=== PATIENT | female | born 1980 | race Caucasian/White ===

== ENCOUNTER 2021-11-19 11:04 | Outpatient (CLI) | payer OTHER, SELFPAY ==
[2021-11-19 15:23] LABS: Basophils Absolute Auto 0.07 K/uL (0.00-0.30); Basophils Percent Auto 0.8 % (0.0-3.0); Eosinophils Absolute Auto 0.31 K/uL (0.00-0.50); Eosinophils Percent Auto 3.4 % (0.0-7.0); Hematocrit 39.8 % (33.0-51.0); Hemoglobin* 12.9 gm/dL (12.0-16.0); Immature Granulocytes Abs Auto 0.02 K/uL (0.00-0.30); Mean Corpuscular HGB Conc 32 gm/dL (32-36); Mean Corpuscular Hemoglobin 29 pg (26-34); Mean Corpuscular Volume 90 fL (80-100); Monocytes Percent Auto 7.9 % (0.0-11.0); Neutrophils Absolute Auto 4.49 K/uL (1.7-7.0); Neutrophils Percent Auto 48.7 % (42.0-72.0); Platelet Count* 415 K/uL (140-440); RDW Coefficient of Variation % 13.8 % (11.5-15.5); Red Blood Count 4.44 m/uL (4.00-5.20); White Blood Count* 9.22 K/uL (4.50-11.00)
[2021-11-19 15:33] LABS: Slide Review Reflex No
[2021-11-19 15:58] LABS: Iron* 60 ug/dL (37-170)
[2021-11-19 16:08] LABS: Percent Iron Saturation 16 % (20-50); Total Iron Binding Capacity 379 ug/dL (265-497)
== END 2021-11-19 11:05 | disposition home or self-care (01) ==
PROVIDERS: PCP Nurse Practitioner Family; Visit Provider Nurse Practitioner Family
DX: N92.1 Excessive and frequent menstruation with irregular cycle (principal)
CPT/HCPCS: 36415; 83540; 83550; 84443; 85025

== ENCOUNTER 2022-03-16 14:49 | Outpatient (CLI) | payer OTHER, SELFPAY ==
--- OUTSIDE RECORDS SUMMARY | 2022-03-16 14:56 | XMS_ITS | Clinical Summary ---
:1980 Author Organization [facility] [place] [address] Care Team Providers Name Role Phone Unknown, Doctor Primary Care Provider Unavailable Allergies Active Allergy Reactions Severity Noted Date Comments Amoxicillin-Pot Clavulanate GI Upset 01/04/2012 Ciprofloxacin *Unknown 01/04/2012 Medications Medication Sig Dispensed Refills Start Date End Date Status fexofenadine (KAILYN) One tab PO Q HS X 60 tablet 3 2 Active 180 mg tablet 2 month supply azelastine 137 2 puffs each 1 Bottle 3 01/04/2012 A ctive mcg/actuation nasal nostril BID X 2 (ASTELIN) 137 mcg nasal month supply spray Active Problems Not on file Social History Tobacco Use Types Packs/Day Years Used Date Current Every Day Smoker Smokeless Tobacco: Never Used Tobacco Cessation: Ready to Quit: No; Co unseling Given: Yes Alcohol Use Standard Drinks/Week Comments No 0 (1 standard drink = 0.6 oz pure alcoho l) Sex Assigned at Date Recorded Not on file Obstetrics History Last Filed Vital Signs Vital Sign Reading Time Taken Comments Blood Pressure 106/58 01/18/2012 2:21 PM CDT Pulse 68 01/18/2012 2:21 PM CDT Temperature - - Respiratory Rate 12 01/18/2012 2:21 PM CDT Oxygen Saturation - - Inhaled Oxygen Concentration - - Weight - - Height - - Body Mass Index - - Plan of Treatment Health Maintenance Due Date Last Done Comments Tdap 1993 Depression screening for age 12+ 1994 HIV for age 15-65 1997 BMI (ht and wt on same day) for age 18+ 2000 Hepatitis C screening for age 18-79 2000 Tetanus booster 2002 COVID-19 vaccine series (2 - Pfizer 05/24/2021 05/03/2021 series) Influenza for age 9-49 12/16/2021 Pap test for age 21-65 11/19/2024 11/19/2021, 04/29/2013 Results Not on filefrom Last 3 Months Care Teams Educational Interpreter Relationship Specialty Start Date End Date Unknown, Doctor PCP - General Emergency Medicine 04/08/11 .
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
--- OUTSIDE RECORDS SUMMARY | 2022-03-16 14:56 | XMS_ITS | Encounter Summary ---
:1980 Author Organization [facility] Address [address] [place] [address] Care Team Providers Name Role Phone Alia Roberts APRN, BALL MILL MIXER Primary Care Provider [phone] Reason for Visit Reason Comments URI Sinus Problem Encounter Details Date Type Department Care Team Description 01/29/2019 Office Visit [place] Vaughn Méndez, Chronic rhinitis (Primary Dx ); [address] Chronic maxillary sinusitis [place], [place] [address] Social History Tobacco Use Types Packs/Day Years [...] or relatives? How often do you attend congregation or Not asked evangelical services? Do you belong to any clubs or Not asked organizations such as congregation groups, unions, fraternal or athletic groups, or [...] on file documented as of this encounter Last Filed Vital Signs Vital Sign Reading Time Taken Comments Blood Pressure 102/80 01/29/2019 2:01 PM CDT Pulse 106 01/29/2019 2:01 PM CDT Temperature 35.7 ??C (96.2 ??F) 01/29/2019 2:01 PM CDT Respiratory Rate 20 01/29/2019 2:01 PM CDT Oxygen Saturation 97% 01/29/2019 2:01 PM CDT Inhaled Oxygen Concentration - - Weight 89.1 kg (196 lb 6.9 oz) 01/29/2019 2:01 PM CDT Height 160 cm (5' 2.99) 01/29/2019 2:01 PM CDT Body Mass Index 34.8 01/29/2019 2:01 PM CDT documented in this encounter Patient Instructions Patient InstructionsDavisunshine Méndez MD - 01/29/2019 2:00 PM CDT Afrin Nasal spray 1 puff in each Nostril at bedtime for one week documented in this encounter Progress Notes Vaughn Méndez MD - 01/29/2019 2:00 PM CDT Estab Patient Visit Subjective This 38-year-old woman presents stating that she feels that she has a sinus infection. She has a history of recurrent sinus infections and states that she has had surgery on her sinuses twice last being in 2000. For the last week she has had this watery rhinitis with facial congestion and discomfort in her face both the maxillary and frontal area. He does complain of some fullness in the left ear also. She has not recorded fever. She has a cough when she is laying down. She has somewhat of a sore throat in the morning. She does continue to smoke 1/2 pack of cigarettes per day but is on Chantix and trying to quit. She asked about a refill of her Flonase nasal spray. She is actually been on 3 different nasal sprays in the past. She felt the one from did help but she was not really certain which one. She does complain of this chronic watery drainage from her nose even when she does not have which she thinks is a sinus infection. It seems to be worse with change in air temperature. She has not had a history of allergies. Current Outpatient Medications: ??? cetirizine (ZyrTEC) 10 MG tablet, TAKE ONE TABLET BY MOUTH EVERY DAY NEEDED FOR ALLERGIES, Disp: 90 tablet, Rfl: 3 ??? ergocalciferol (VITAMIN D2) 65546 units capsule, TAKE 1 CAPSULE (50,000 UNITS TOTAL) BY MOUTH ONCE A WEEK, Disp: 8 capsule, Rfl: 0 ??? fluticasone (FLONASE) 50 MCG/ACT nasal spray, Administer 2 sprays into affected nostril(s) 1 (one) time each day, Disp: , Rfl: ??? ibuprofen (ADVIL,MOTRIN) 200 MG tablet, Take 4 tablets by mouth if needed, Disp: , Rfl: ??? ketorolac (TORADOL) 10 MG tablet, Take 10 mg by mouth take one tablet at needed for pain may repeat in 8 hours not to exceed 40 mg in a 24 hour period, Disp: , Rfl: ??? PARoxetine (PAXIL) 10 MG tablet, TAKE ONE TABLET BY MOUTH EVERY MORNING, Disp: 90 tablet, Rfl: 3 ??? topiramate (TOPAMAX) 50 MG tablet, Take 50 mg by mouth 1 (one) time each day, Disp: , Rfl: ? ? varenicline (CHANTIX ZAKIA) 0.5 MG X 11 & 1 MG X 42 tablet, Use as directed on package instructions, try to quit smoking after 1 week., Disp: 53 tablet, Rfl: 0 ??? azithromycin (ZITHROMAX) 500 MG tablet, Take 1 tablet (500 mg total) by mouth 1 (one) time each day for 5 days, Disp: 5 tablet, Rfl: 0 ??? ipratropium (ATROVENT) 0.03 % nasal spray, Administer 2 sprays into each nostril every 12 (twelve) hours, Disp: 30 mL, Rfl: 1 Current Facility-Administered Medications: ??? medroxyPROGESTERone (DEPO-PROVERA) injection 150 mg, 150 mg, Intramuscular, q3 months, Abelardo Roberts BALANCING MACHINE OPERATOR, BALL MILL MIXER, 150 mg at 11/26/18 1638 Objective Visit Vitals BP 102/80 (BP Location: Right arm, Patient Position: Sitting) Pulse 106 Temp (!) 35.7 ??C (96.2 ??F) (Temporal) Resp 20 Ht 1.6 m (5' 2.99) Wt 89.1 kg (196 lb 6.9 oz) SpO2 97% BMI 34.80 kg/m?? Smoking Status Current Every Day Smoker BSA 1.99 m?? General appearance is that of a well-developed female in no acute distress. Examination of the ears reveals normal tympanic membranes. Examination of mouth and oropharynx is negative. Transilluminate sinuses reveals that her maxillary sinuses transilluminate well. Examination of her neck does not any adenopathy. Her lungs are clear to auscultation. Assessment 1. Viral upper respiratory infection with facial congestion. 2. History of sinus infections. 3. History suggestive of vasomotor rhinitis. Plan 1. I have first have asked her to try Afrin nasal spray. If she is a twice a day she can only use itfor 4 days. Otherwise I asked her to start out try using it just at night. 2. She will steam herself up and shower and do hot compresses on the face. 3. If it does not seem to improve she will start the Zithromax and I gave her a prescription for. 4. Once this is settled down I have asked her to try Atrovent nasal spray 0.06% to see if this wouldhelp her persistent rhinitis. 5. Have complemented her on her work to stop smoking. 6. She will return to clinic in a week or so to get her flu shot and also consider her second pneumonia shot. documented in this encounter Plan of Treatment Not on filedocumented as of this encounter Visit Diagnoses Diagnosis Chronic rhinitis - Primary Chronic maxillary sinusitis documented in this encounter Care Teams Estimator And Drafter Relationship Specialty Start Date End Date Alia Roberts APRN, BALL MILL MIXER PCP - General 11/21/17 12/23/19 100 [place] [address] documented as of this encounter
--- OUTSIDE RECORDS SUMMARY | 2022-03-16 14:56 | XMS_ITS | Encounter Summary ---
:1980 Author Organization [facility] Address [address] [place] [address] Care Team Providers Name Role Phone Alia Roberts APRN, LENS POLISHER Primary Care Provider [phone] Encounter Details Date Type Department Care Team Description 07/22/2019 [facility] Gastroenteritis [address] [place], [place] [address] Social History Tobacco Use [...] or relatives? How often do you attend anabaptism or Not asked protestant services? Do you belong to any clubs or Not asked organizations such as anabaptism groups, unions, fraternal or athletic groups, or [...] Assigned at Date Recorded Not on file COVID-19 Exposure Response Date Recorded In the last month, have you been in contact with No / Unsure 07/22/2019 3:07 PM CDT someone who was confirmed or suspected to have Coronavirus / COVID-19? documented as of this encounter Plan of Treatment Not on filedocumented as of this encounter Procedures Procedure Name Priority Date/Time Associated Diagnosis Comme nts URINALYSIS-MICROSCOP Routine 07/22/2019 3:56 PM Gastroenteriti s Results for this IC EXAM (REFLEXED) CDT procedure are in the results section. , URINE Routine 07/22/2019 3:56 PM Gastroenteritis Re sults for this CDT procedure are i n the results section. URINALYSIS WITH Routine 07/22/2019 3:56 PM Gastroenteritis Res ults for this REFLEX MICROSCOPIC CDT procedure are in the results section. CBC BRANCH OFFICE Routine 07/22/2019 3:52 PM Gastroenteritis R esults for this W/DIFF CDT procedure are i n the results section. documented in this encounter Results (ABNORMAL) Urinalysis-Microscopic Exam (07/22/2019 3:56 PM CDT) [facility] Method Time Signature Casts, urine NONE SEEN 0-2 Hyaline 07/22/2019 [facility] /lpf 4:21 PM CDT [place] Significant NONE SEEN None Seen 07/22/2019 [facility] casts, urine /lpf 4:21 PM [facility]T [place] RBC, Urine 4-10 (A) 0 - 3 /hpf 07/22/2019 [facility] 4:21 PM CDT [place] WBC, Urine 0-3 /hpf 07/22/2019 [facility] 4:21 PM CDT [place] Comment: Male Ref Range ? 0-3/hpf Female Ref Range ?? 0-10/hpf Squamous Epithelial, FEW Few /lpf 07/22/2019 4:21 PM [facility] [place] Urine CDT Trans Epithelial, NONE SEEN 0 - 3 /hpf 07/22/2019 4:21 PM [facility] [place] Urine CDT Renal Tubular Cells, NONE SEEN 0 - 1 /hpf 07/22/2019 4:21 PM [facility] [place] Urine CDT Bacteria, Urine FEW None Seen /hpf 07/22/2019 4:21 PM [facility] [place] CDT Specimen Anatomical Collection Method Collection Time Receive d Time (Source) Location / / Volume Laterality 07/22/2019 3:56 PM 0 3:57 CDT PM CDT Alia Roberts APRN, LENS POLISHER LAB URINE ORDERABLES Performing Organization Address City/State/ZIP Code Phon e Number [facility] [place] [address] [place] [address] (ABNORMAL) Urinalysis with reflex microscopic (07/22/2019 3:56 PM CDT) [facility] Method Time Signature Type CLEAN CATCH 07/22/2019 [facility] 4:21 PM CDT [place] Color, Urine YELLOW YELLOW 07/22/2019 [facility] 4:21 PM [facility]T [place] Clarity, CLEAR CLEAR 07/22/2019 [facility] Urine 4:21 PM CDT [place] Glucose, NEGATIVE NEGATIVE 07/22/2019 [facility] Urine mg/dL 4:21 PM CDT [place] Bilirubin, NEGATIVE NEGATIVE 07/22/2019 [facility] Urine 4:21 PM CDT [place] Ketones, NEGATIVE NEGATIVE 07/22/2019 [facility] Urine mg/dL 4:21 PM CDT [place] Specific 1.020 1.000 07/22/2019 [facility] [place], ->=1.030 4:21 PM CDT [place] Urine Blood, Urine MODERATE (A) NEGATIVE 07/22/2019 [facility] 4:21 PM CDT [place] pH, Urine 6.5 5.0 - 7.0 07/22/2019 [facility] 4:21 PM CDT [place] Protein, NEGATIVE NEGATIVE-TRA 07/22/2019 [facility] Urine CE mg/dL 4:21 PM CDT [place] Urobilinogen, 0.2 0.2 - 1.0 07/22/2019 [facility] Urine E.U./dL 4:21 PM CDT [place] Nitrite, NEGATIVE NEGATIVE 07/22/2019 [facility] Urine 4:21 PM CDT [place] Leukocytes, NEGATIVE NEGATIVE 07/22/2019 [facility] Urine 4:21 PM CDT [place] Specimen Anatomical Collection Method Collection Time Receive d Time (Source) Location / / Volume Laterality Urine (Urine, 07/22/2019 3:56 PM 07/22/19 3:57 Clean Catch) CDT PM CDT Alia Roberts APRN, CNP LAB URINE ORDERABLES Performing Organization Address City/State/ZIP Code Phon e Number [facility] [place] [address] [place] [address] , urine (07/22/2019 3:56 PM CDT) athologist Signature NEGATIVE Negative 07/22/2019 [facility] Test, Urine 4:03 PM CDT [place] Specimen Anatomical Collection Method Collection Time Receive d Time (Source) Location / / Volume Laterality Urine (Urine, 07/22/2019 3:56 PM 07/22/19 3:57 Clean Catch) CDT PM CDT Alia Roberts APRN, CNP LAB URINE ORDERABLES Performing Organization Address City/[facility]/ZIP Code Phon e Number [facility] [address] [place] [address] CBC Branch Off w/Diff (07/22/2019 3:52 PM CDT) athologist Signature WBC 7.4 3.5 - 10.5 07/22/2019 [facility] K/uL 4:05 PM CDT [place] RBC 3.95 3.90 - 07/22/2019 [facility] 5.00 M/uL 4:05 PM CDT [place] Hemoglobin 12.4 12.0 - 07/22/2019 [facility] 15.5 g/dL 4:05 PM CDT [place] Hematocrit 37.5 35.0 - 07/22/2019 [facility] 44.0 % 4:05 PM CDT [place] Platelets 310 150 - 450 07/22/2019 [facility] K/uL 4:05 PM CDT [place] MCV 94.9 81.6 - 07/22/2019 [facility] 98.3 fL 4:05 PM CDT [place] MCH 31.4 26.0 - 07/22/2019 [facility] 32.0 pg 4:05 PM CDT [place] MCHC 33.1 32.0 - 07/22/2019 [facility] 36.0 g/dL 4:05 PM CDT [place] RDW 12.9 11.9 - 07/22/2019 [facility] 15.5 % 4:05 PM CDT [place] Lymphocytes % 37.3 18.0 - 07/22/2019 [facility] 45.0 % 4:05 PM CDT [place] Mid-size Cells 6.5 3.3 - 10.1 07/22/2019 [facility] % 4:05 PM CDT [place] Granulocytes/Chris 56.2 45.8 - 07/22/2019 [facility] trophils 73.7 % 4:05 PM CDT [place] Lymphocytes 2.8 0.9 - 2.9 07/22/2019 [facility] Absolute K/uL 4:05 PM CDT [place] MIDS Absolute 0.5 0.2 - 0.8 07/22/2019 [facility] K/uL 4:05 PM CDT [place] Granulocytes/Chris 4.1 2.1 - 8.7 07/22/2019 [facility] trophils K/uL 4:05 PM CDT [place] Absolute Specimen Anatomical Collection Method Collection Time Receive d Time (Source) Location / / Volume Laterality Blood 07/22/2019 3:52 PM 0 3:55 CDT PM CDT Alia Roberts APRN, CNP LAB BLOOD ORDERABLES Performing Organization Address City/State/ZIP Code Phon e Number [facility] [place] [address] [place] [address] documented in this encounter Visit Diagnoses Diagnosis Gastroenteritis Other and unspecified noninfectious kalpana roenteritis and colitis documented in this encounter Care Teams Jury Consultant Relationship Specialty Start Date End Date Alia Roberts APRN, LENS POLISHER PCP - General 11/21/17 12/23/19 100 [facility] [place] [address] documented as of this encounter
--- OUTSIDE RECORDS SUMMARY | 2022-03-16 14:56 | XMS_ITS | Encounter Summary ---
:1980 Author Organization [facility] Address [address] [place] [address] Care Team Providers Name Role Phone Alia Roberts COLLIERY CLERK, CURTAIN INSPECTOR Primary Care Provider [phone] Reason for Visit Reason Comments Med Refill Encounter Details Date Type Department Care Team Description 05/03/2019 Refill [place] Alia Roberts, Vitamin deficiency [address] COLLIERY CLERK, [place], [place] [address] [address] [facility] [phone] [place], [place] [address] Social History Tobacco Use Types Packs/Day Years [...] do you attend congregation or Not asked church services? Do you belong to any clubs [...] this encounter Miscellaneous Notes Telephone Encounter - Alia Roberts APRN, CNP - 05/07/2019 11:33 AM [facility] [place] The patient does not need to be on this medication. [facility] [place] Telephone Encounter - Cyndi Miles LPN - 05/07/2019 7:21 AM CST Last visit in Provider Department: 01/14/2019 Upcoming appointment with Provider: Visit date not found Last Rx: 01/16/2019 # 8, 0 refills Requested Prescriptions Pending Prescriptions Disp Refills ??? ergocalciferol (VITAMIN D2) 1.25 MG (48394 UT) capsule [Pharmacy Med Name: VITAMIN D- ERGOCALCIFEROL 50,000 CAPS] 8 capsule 0 Sig: TAKE 1 CAPSULE (50,000 UNITS TOTAL) BY MOUTH ONCE A WEEK Labs: Component Latest Ref Rng & Units 10/26/2018 Vitamin D, Total ng/mL 24.7 (A) Vitals: BP Readings from Last 2 Encounters: 01/29/19 102/80 11/13/18 100/72 [facility] [place] documented in this encounter Plan of Treatment Not on filedocumented as of this encounter Visit Diagnoses Diagnosis Vitamin deficiency Unspecified vitamin deficiency documented in this encounter Care Teams Bulk Picker Relationship Specialty Start Date End Date Alia Roberts, COLLIERY CLERK, CURTAIN INSPECTOR PCP - General 11/21/17 12/23/19 [address] [facility] [place] [id number] documented as of this encounter
--- OUTSIDE RECORDS SUMMARY | 2022-03-16 14:56 | XMS_ITS | Encounter Summary ---
:1980 Author Organization [facility] Address [address] [place] [address] Care Team Providers Name Role Phone None, Pcp Primary Care Provider Unavailable Reason for Visit Reason Comments BP check after delivery Encounter Details Date Type Department Care Team Description 07/01/2021 Office Visit [place] Augusto Frazier, [address] hypertension (Primary [place], [place] [address] [place]) [address] [place], [place] [phone] Social History Tobacco Use Types Packs/Day Years [...] or relatives? How often do you attend anglican or Not asked roman catholic services? Do you belong to any clubs or Not asked organizations such as anglican groups, unions, fraternal or athletic groups, or [...] Sign Reading Time Taken Comments Blood Pressure 118/90 07/01/2021 10:33 AM CDT Pulse 96 07/01/2021 10:33 AM CDT Temperature 36.6 ??C (97.8 ??F) 07/01/2021 10:33 AM CDT Respiratory Rate 16 07/01/2021 10:33 AM CDT Oxygen Saturation 95% 07/01/2021 10:33 AM CDT Inhaled Oxygen Concentration - - Weight 90.7 kg (200 lb) 07/01/2021 10:33 AM CDT Height 157.5 cm (5' 2) 07/01/2021 10:33 AM CDT Body Mass Index 36.58 07/01/2021 10:33 AM CDT documented in this encounter Patient Instructions Patient InstructionsAugusto Frazier MD - 07/01/2021 10:40 AM CDT Increase labetolol to 300 mg for the 6 AM and 2 PM dose. Keep at 200 mg for the 10 PM dose. Keep monitoring blood pressure 4 times per day. Hold paxil for now until BP is stabilized. If cannot get in to see your team at [facility] in 1-2 weeks, you can come back here same day appointment if needed. documented in this encounter Progress Notes Augusto Frazier MD - 07/01/2021 10:40 AM CDT Subjective Patient ID: Dulce Lei is a 41 y.o. female. Chief Complaint Patient presents with ??? BP check after delivery HPI Patient here for BP recheck. She states she recently had normal vaginal delivery at [facility] on 06/22/2021. She states she had her fallopian tubes removed after the delivery as well. Not breast feeding. Only formula. Patient was admitted on 06/28/2021-06/29/2021 for post severe pre- eclampsia, elevated proteinuria and severe range blood pressure with symptoms of shortness of breath, chest pain, LE swelling, andheadache. I reviewed the discharge summary from that admission. CT PE was negative. She required anti-HTN with labetolol and magnesium for severe pre-eclampsia. Negative HELLP labs. Her leg swelling and shortness of breath have resolved. She denies any new swelling, chest pain, shortness of breath, abdominal pain, headaches or visual changes. She has some persistent mild low back pain she attributes to post vaginal delivery pain. She is currently on Labetolol 200 mg q8h - 6 AM, 2 PM and 10 PM. Labetolol is causing constant itchiness on her scalp. Benadryl helping but makes her drowsy. She brought in a copy of her blood pressures at home since discharge and have ranged in the 120s-130s systolic to 70s to 80s diastolic. Also, she is wondering if she should restart her paxil which was held during her . She is currently taking cymbalta. She states she usually is on both paxil and cymbalta. However, she says clarissa is great right now on cymbalta alone. OB primary team is at [facility]. She has 6 week follow up appointment scheduled as of now. The following portions of the patient's chart were reviewed in this encounter and updated as appropriate: Tobacco Meds Med Hx Surg Hx Fam Hx ROS ROS done as noted in HPI Objective Visit Vitals BP (!) 118/90 (BP Location: Left arm, Patient Position: Sitting, BP Cuff Size: Adult long) Pulse 96 Temp 36.6 ??C (97.8 ??F) (Temporal) Resp 16 Ht 1.575 m (5' 2) Wt 90.7 kg (200 lb) SpO2 95% BMI 36.58 kg/m?? Smoking Status Current Every Day Smoker BSA 1.99 m?? Physical Exam Vitals reviewed. Constitutional: General: She is not in acute distress. Appearance: She is not ill-appearing. Cardiovascular: Rate and Rhythm: Normal rate and regular rhythm. Heart sounds: Normal heart sounds. Pulmonary: Effort: Pulmonary effort is normal. Breath sounds: Normal breath sounds. No wheezing, rhonchi or rales. Neurological: General: No focal deficit present. Mental Status: She is alert. Comments: No ankle clonus bilaterally Psychiatric: Mood and Affect: Mood normal. Behavior: Behavior normal. Assessment/Plan Diagnosis Plan 1. hypertension Severe pre-eclampsia has resolved, BP still elevated slightly. Given she has had salpingectomy, could consider alternative single day dosing of Amlodipine or lisinopril going forward. For now, she is doing relatively well with the labetolol here is mildly elevated. Increaseing labetolol as below. Advised to follow up with OB-new car inspector primary team at [facility] in 1-2 weeks or here if unable to get an appointment. Plan as below. Patient Instructions Increase labetolol to 300 mg for the 6 AM and 2 PM dose. Keep at 200 mg for the 10 PM dose. Keep monitoring blood pressure 4 times per day. Hold paxil for now until BP is stabilized. If cannot get in to see your team at [facility] in 1-2 weeks, you can come back here same day appointment if needed. Note created using voice dictation software. documented in this encounter Plan of Treatment Not on filedocumented as of this encounter Visit Diagnoses Diagnosis hypertension - Primary documented in this encounter Care Teams Ms Access Database Developer Relationship Specialty Start Date End Date None, Pcp PCP - General Ophthalmologist Retina Specialist 01/23/20 01/26/[address] [place] [phone] documented as of this encounter
--- OUTSIDE RECORDS SUMMARY | 2022-03-16 14:56 | XMS_ITS | Encounter Summary ---
:1980 Author Organization [facility] Address [address] [place] [address] Care Team Providers Name Role Phone Alia Roberts APRN, FABRIC NORMALIZER Primary Care Provider [phone] Encounter Details Date Type Department Care Team Description 07/22/2019 Travel Social History Tobacco Use Types Packs/Day Years [...] do you attend moravian or Not asked temple services? Do you belong to any clubs [...] filedocumented as of this encounter Visit Diagnoses Not on filedocumented in this encounter Care Teams Clothing Worker Relationship Specialty Start Date End Date Alia Roberts, PSYCHOLOGIST EXPERIMENTAL, FABRIC NORMALIZER PCP - General 11/21/17 12/23/[address] [place] [address] [place]JEDA [id number] documented as of this encounter
--- OUTSIDE RECORDS SUMMARY | 2022-03-16 14:56 | XMS_ITS | Encounter Summary ---
:1980 Author Organization [facility] Address [address] [place] [address] Care Team Providers Name Role Phone Alia Roberts APRN, LANIE Primary Care Provider [phone] Reason for Visit Reason Comments Hemorrhoids Encounter Details Date Type Department Care Team Description 07/22/2019 Office Visit [facility] Alia Roberts Gastrointestinal symptoms (P rimary Dx); [address] M, LANIE BLANCHARD Hemorrhoids, unspecified hemorrhoid type [place] [address] [facility] [address] [address] [place], [place] [phone] [address] Social History Tobacco Use Types Packs/Day Years [...] or relatives? How often do you attend holiness or Not asked nondenominational services? Do you belong to any clubs or Not asked organizations such as holiness groups, unions, fraternal or athletic groups, or [...] / COVID-19? documented as of this encounter Last Filed Vital Signs Vital Sign Reading Time Taken Comments Blood Pressure 128/60 07/22/2019 3:13 PM CDT Pulse 104 07/22/2019 3:13 PM CDT Temperature 36.7 ??C (98.1 ??F) 07/22/2019 3:13 PM CDT Respiratory Rate 18 07/22/2019 3:13 PM CDT Oxygen Saturation 97% 07/22/2019 3:13 PM CDT Inhaled Oxygen Concentration - - Weight 92.5 kg (204 lb) 07/22/2019 3:13 PM CDT Height 160 cm (5' 2.99) 07/22/2019 3:13 PM CDT Body Mass Index 36.15 07/22/2019 3:13 PM CDT documented in this encounter Patient Instructions Patient InstructionsChignacio Roberts APRN, LANIE - 07/22/2019 3:40 PM CDT [place] diet, start with clear liquids, advance diet slowly. Return to the stool specimens documented in this encounter Progress Notes Alia Roberts APRN, [employer] - 07/22/2019 3:40 PM CDT Estab Patient Visit Subjective Patient ID: Dulce Lei is a 39 y.o. female presenting for the following concerns. Chief Complaint Patient presents with ??? Hemorrhoids HPI: The patient is a pleasant 39 y.o. year old female presenting ambulatory to the clinical setting withepigastric discomfort that she awoke with this morning describing the pain as it hurts. The patient has had loose stools which is not uncommon she did have a toilet full of bright red blood x1 has a picture of this with the blood stopping until she wiped once again after bowel movement. The patient reports that she never has a hard bowel movement she drinks about a pot of coffee per day. The patient has felt bloated. The patient has a known history of hemorrhoids had been referred to the general surgeon but did not make an appointment at this time was apprehensive about doing that. The patient did have lunch today she did eat a [employer] sandwich chicken with mail and other things on it. The patient reports that she felt nauseous from the pain but no vomiting. No fever, no chills. No urinary frequency, urgency and or hematuria. The patient's last menstrual period was a month ago and irregular menstrual cycle not on any contraception. The patient has never had stomach pain is bad. The patient does f eel a sense of anxiety in the coronavirus pandemic, her daughter was started on some antianxiety medication. The patient reports she has had some tingling on the right side of her evangelical area she noticed this summer which feels more swollen than the left when she rubs the right side of her evangelical areashe will have some tingling on the left side. The patient does have a history of diverticulosis, as her father has diverticulitis had part of his colon removed but his symptoms typically are lower. No recent travels. ROS: GENERAL: See HPI. No fever, no chills. GASTROINTESTINAL: See HPI. The patient awoke with epigastric discomfort this morning that has been so significant she felt nauseous from the pain without vomiting but has had some looser stools which is not atypical she did have some blood in the toilet this morning but no blood clots and likely from her hemorrhoids which she has had for a long period of time. GENITOURINARY: See HPI. No dysuria, urinary frequency, urgency, nocturia and/or hematuria. RATE SUPERVISOR: See HPI. The patient's last menstrual period was 1 month ago. The following portions of the patient's chart were reviewed in this encounter and updated as appropriate: Tobacco Allergies Meds Med Hx Surg Hx Fam Hx Current Outpatient Medications: ??? cetirizine (ZyrTEC) 10 MG tablet, TAKE ONE TABLET BY MOUTH EVERY DAY NEEDED FOR ALLERGIES, Disp: 90 tablet, Rfl: 3 ??? cholecalciferol (VITAMIN D-[address]) 25 MCG (1000 UT) tablet, Take 1,000 Units by mouth daily, Disp: , Rfl: ??? fluticasone (FLONASE) 50 MCG/ACT nasal spray, Administer 2 sprays into affected nostril(s) 1 (one) time each day, Disp: , Rfl: ??? ibuprofen (ADVIL,MOTRIN) 200 MG tablet, Take 4 tablets by mouth if needed, Disp: , Rfl: ??? ipratropium (ATROVENT) 0.03 % nasal spray, Administer 2 sprays into each nostril every 12 (twelve) hours, Disp: 30 mL, Rfl: 1 ??? ketorolac (TORADOL) 10 MG tablet, Take 10 mg by mouth take one tablet at needed for pain may repeat in 8 hours not to exceed 40 mg in a 24 hour period, Disp: , Rfl: ??? PARoxetine (PAXIL) 10 MG tablet, TAKE ONE TABLET BY MOUTH EVERY MORNING, Disp: 90 tablet, Rfl: 3 ??? topiramate (TOPAMAX) 50 MG tablet, Take 1 and 1/2 tablet (75 mg) in the AM for migraine headaches, Disp: 45 tablet, Rfl: 5 ? ? varenicline (CHANTIX ZAKIA) 0.5 MG X 11 & 1 MG X 42 tablet, Use as directed on package instructions, try to quit smoking after 1 week., Disp: 53 tablet, Rfl: 0 Objective Visit Vitals BP 128/60 (BP Location: Left arm, Patient Position: Sitting) Pulse 104 Temp 36.7 ??C (98.1 ??F) (Temporal) Resp 18 Ht 1.6 m (5' 2.99) Wt 92.5 kg (204 lb) SpO2 97% BMI 36.15 kg/m?? Smoking Status Current Every Day Smoker BSA 2.03 m?? GENERAL: The patient is alert, orientated, and in no apparent distress. GENITOURINARY: No suprapubic tenderness no CVA tenderness. GASTROENTEROLOGY: Abdomen is soft, no organomegaly, positive bowel sounds. The patient has had epigastric discomfort since this morning. Several external hemorrhoids, one appears to have been recently bleeding. DIAGNOSTICS: CBC with differential. Urine negative. Urinalysis normal with the exception of moderate blood. Lab on 07/22/2019 Component Date Value Ref Range Status ??? WBC 07/22/2019 7.4 3.5 - 10.5 K/uL Final ??? RBC 07/22/2019 3.95 3.90 - 5.00 M/uL Final ??? Hemoglobin 07/22/2019 12.4 12.0 - 15.5 g/dL Final ??? Hematocrit 07/22/2019 37.5 35.0 - 44.0 % Final ??? Platelets 07/22/2019 310 150 - 450 K/uL Final ??? MCV 07/22/2019 94.9 81.6 - 98.3 fL Final ??? MCH 07/22/2019 31.4 26.0 - 32.0 pg Final ??? MCHC 07/22/2019 33.1 32.0 - 36.0 g/dL Final ??? RDW 07/22/2019 12.9 11.9 - 15.5 % Final ??? Lymphocytes % 07/22/2019 37.3 18.0 - 45.0 % Final ??? Mid-size Cells 07/22/2019 6.5 3.3 - 10.1 % Final ??? Granulocytes/Neutrophils 07/22/2019 56.2 45.8 - 73.7 % Final ??? Lymphocytes Absolute 07/22/2019 2.8 0.9 - 2.9 K/uL Final ??? MIDS Absolute 07/22/2019 0.5 0.2 - 0.8 K/uL Final ??? Granulocytes/Neutrophils Absolute 07/22/2019 4.1 2.1 - 8.7 K/uL Final ??? Test, Urine 07/22/2019 NEGATIVE Negative Final ??? Type 07/22/2019 CLEAN CATCH Final ??? Color, Urine 07/22/2019 YELLOW YELLOW Final ??? Clarity, Urine 07/22/2019 CLEAR CLEAR Final ??? Glucose, Urine 07/22/2019 NEGATIVE NEGATIVE mg/dL Final ??? Bilirubin, Urine 07/22/2019 NEGATIVE NEGATIVE Final ??? Ketones, Urine 07/22/2019 NEGATIVE NEGATIVE mg/dL Final ? ? Specific [place], Urine 07/22/2019 1.020 1.000 ->=1.030 Final ??? Blood, Urine 07/22/2019 MODERATE* NEGATIVE Final ??? pH, Urine 07/22/2019 6.5 5.0 - 7.0 Final ??? Protein, Urine 07/22/2019 NEGATIVE NEGATIVE-TRACE mg/dL Final ??? Urobilinogen, Urine 07/22/2019 0.2 0.2 - 1.0 E.U./dL Final ??? Nitrite, Urine 07/22/2019 NEGATIVE NEGATIVE Final ??? Leukocytes, Urine 07/22/2019 NEGATIVE NEGATIVE Final ??? Casts, urine 07/22/2019 NONE SEEN 0-2 Hyaline /lpf Final ??? Significant casts, urine 07/22/2019 NONE SEEN None Seen /lpf Final ??? RBC, Urine 07/22/2019 4-10* 0 - 3 /hpf Final ??? WBC, Urine 07/22/2019 0-3 /hpf Final ??? Squamous Epithelial, Urine 07/22/2019 FEW Few /lpf Final ??? Trans Epithelial, Urine 07/22/2019 NONE SEEN 0 - 3 /hpf Final ??? Renal Tubular Cells, Urine 07/22/2019 NONE SEEN 0 - 1 /hpf Final ??? Bacteria, Urine 07/22/2019 FEW None Seen /hpf Final Assessment/Plan Dulce was seen today for hemorrhoids. Diagnoses and all orders for this visit: Gastrointestinal symptoms (Primary) - CBC Branch Off w/Diff; Future - Urinalysis with reflex microscopic; Future - , urine; Future - GI pathogen panel, PCR, F; Future Hemorrhoids, unspecified hemorrhoid type Discussed the plan of care with the patient. Recommended conservative treatment. Plan diet, startingwith clear liquids, and advancing your diet as tolerated. Encouraged the patient to return the stoolspecimen. The patient can consider seeing a general surgeon for her hemorrhoids when the COVID-19 pandemic resolves. The patient agrees and understands this plan of care. Alia Roberts APRN, [employer] documented in this encounter Plan of Treatment Not on filedocumented as of this encounter Results , urine (07/22/2019 3:56 PM CDT) P athologist Signature NEGATIVE Negative 07/22/2019 [facility] Test, Urine 4:03 PM CDT [place] Specimen Anatomical Collection Method Collection Time Receive d Time (Source) Location / / Volume Laterality Urine (Urine, 07/22/2019 3:56 PM 07/22/19 20 3:57 Clean Catch) CDT PM CDT Alia Roberts APRN, CNP LAB URINE ORDERABLES Performing Organization Address City/State/ZIP Code Phon e Number [facility] [place] [address] [place] [address] (ABNORMAL) Urinalysis with reflex microscopic (07/22/2019 3:56 PM CDT) [facility] Method Time Signature Type CLEAN CATCH [...] [place] Specific 1.020 1.000 07/22/2019 [facility] [place], ->=1.030 4:21 PM CDT [place] Urine Blood, Urine MODERATE (A) NEGATIVE 07/22/2019 [facility] 4:21 PM CDT [place] pH, Urine 6.5 5.0 - 7.0 07/22/2019 [facility] 4:21 PM CDT [place] Protein, NEGATIVE NEGATIVE-TRA 07/22/2019 [facility] Urine CE mg/dL 4:21 PM CDT [place] Urobilinogen, 0.2 0.2 - 1.0 07/22/2019 [facility] Urine E.U./dL 4:21 PM CDT [place] Nitrite, NEGATIVE NEGATIVE 07/22/2019 [facility] Urine 4:21 PM CDT [place] Leukocytes, NEGATIVE NEGATIVE 07/22/2019 [facility] Urine 4:21 PM CDT [place] Specimen Anatomical Collection Method Collection Time Receive d Time (Source) Location / / Volume Laterality Urine (Urine, 07/22/2019 3:56 PM 07/22/19 20 3:57 Clean Catch) CDT PM CDT Alia Roberts APRN, [employer] LAB URINE ORDERABLES Performing Organization Address City/State/ZIP Code Phon e Number [facility] [place] [address] [place] [address] CBC Branch Off w/Diff (07/22/2019 3:52 PM CDT) P athologist Signature WBC 7.4 3.5 - 10.5 07/22/2019 [facility] K/uL 4:05 PM CDT [place] RBC [...] CDT [place] MCH 31.4 26.0 - 07/22/2019 [facility] 32.0 pg 4:05 PM CDT [place] MCHC 33.1 32.0 - 07/22/2019 [facility] 36.0 g/dL 4:05 PM CDT [place] RDW 12.9 11.9 - 07/22/2019 [facility] 15.5 % 4:05 PM CDT [place] Lymphocytes % 37.3 18.0 - 07/22/2019 [facility] 45.0 % 4:05 PM CDT [place] Mid-size Cells 6.5 3.3 - 10.1 07/22/2019 [facility] % 4:05 PM CDT [place] Granulocytes/Chris 56.2 45.8 - 07/22/2019 [facility] [place] trophils 73.7 % 4:05 PM CDT [place] Lymphocytes 2.8 0.9 - 2.9 07/22/2019 [facility] [place] Absolute K/uL 4:05 PM CDT [place] MIDS Absolute 0.5 0.2 - 0.8 07/22/2019 [facility] [place] K/uL 4:05 PM CDT [place] Granulocytes/Chris 4.1 2.1 - 8.7 07/22/2019 [facility] [place] trophils K/uL 4:05 PM CDT [place] Absolute Specimen Anatomical Collection Method Collection Time Receive d Time (Source) Location / / Volume Laterality Blood 07/22/2019 3:52 PM 0 3:55 CDT PM CDT Alia Roberts APRN, [employer] LAB BLOOD ORDERABLES Performing Organization Address City/State/ZIP Code Phon e Number [facility] [address] [place] [address] documented in this encounter Visit Diagnoses Diagnosis Gastrointestinal symptoms - Primary Other symptoms involving digestive syste m Hemorrhoids, unspecified hemorrhoid type documented in this encounter Care Teams Cad Design Engineer Relationship Specialty Start Date End Date Alia Roberts APRN, [employer] PCP - General 11/21/17 12/23/19 [address] [facility] [place] [id number] documented as of this encounter
--- OUTSIDE RECORDS SUMMARY | 2022-03-16 14:56 | XMS_ITS | Encounter Summary ---
:1980 Author Organization [facility] Address [address] [place] [address] Care Team Providers Name Role Phone Alia Roberts ARTIFICIAL BREEDING RANCH SUPERVISOR, PIPE LINE WALKER Primary Care Provider [phone] Reason for Visit Reason Onset Date Comments sinus 07/02/2019 Encounter Details Date Type Department Care Team Description 07/02/2019 Telephone [place] Alia Roberts, sinus [address] ARTIFICIAL BREEDING RANCH SUPERVISOR, LANIE [place], [place] [address] [address] [facility] [address] [phone] [place], [place] [address] Social History Tobacco Use [...] or relatives? How often do you attend episcopalian or Not asked adventism services? Do you belong to any clubs or Not asked organizations such as episcopalian groups, unions, fraternal or athletic groups, or [...] Notes Telephone Encounter - Marielena Rodríguez - 07/03/2019 9:57 AM CDT Letter picked up. Telephone Encounter - Kelle Ayala RN - 07/02/2019 12:54 PM CDT Letter at front desk person. Telephone Encounter - Alia Roberts APRN, LANIE - 07/02/2019 12:26 PM CDT Work note written that the patient may return to work. Thanks Alonso Telephone Encounter - Kelle Ayala RN - 07/02/2019 12:02 PM CDT Please review Telephone Encounter - Yanira Ken - 07/02/2019 11:39 AM CDT Pt called stating she has developed diarrhea and thinks it may be from the antibiotic. Please call Pt at [phone] to advise. Telephone Encounter - Kelle Ayala RN - 07/02/2019 10:25 AM CDT Patient reports she does need a note. Telephone Encounter - Alia Roberts APRN, LANIE - 07/02/2019 10:09 AM CDT This patient should work as she does not need the coronavirus testing requirements and I can write her a note releasing her back to work if that is what they are requiring. Thanks Alonso Telephone Encounter - Kelle Ayala RN - 07/02/2019 9:42 AM CDT Patient has a negative travel screen and denies traveling domestically or outside of the [place]. She reports that she has a cough x 1 week, denies shortness of breath or fever. At this time patient does not meet COVID 19 testing based on the current C algorithm. She was in clinic yesterday and started on the Zpak this morning. She said that she does feel worse today than yesterday. Please advise she said that she is supposed to work on Monday and of this week. If she should stay home due to being sick please write work note for her employer. Telephone Encounter - Marielena Rodríguez - 07/02/2019 9:16 AM CDT Patient was diagnosed with sinus infection and her employer wants her tested for Covid-19. She has acough and sore throat and sinus issues. Please call her at [phone]. documented in this encounter Plan of Treatment Not on filedocumented as of this encounter Visit Diagnoses Not on filedocumented in this encounter Care Teams Intranet Specialist Relationship Specialty Start Date End Date Alia Roberts, ARTIFICIAL BREEDING RANCH SUPERVISOR, PIPE LINE WALKER PCP - General 11/21/17 12/23/19 [address] [facility] [place] [id number] documented as of this encounter
--- OUTSIDE RECORDS SUMMARY | 2022-03-16 14:56 | XMS_ITS | Encounter Summary ---
:1980 Author Organization [facility] Address [address] [place] [address] Care Team Providers Name Role Phone Alia Roberts ELECTRONIC SCANNER OPERATOR, PRIVATE EQUITY ASSOCIATE Primary Care Provider [phone] Reason for Visit Reason Onset Date Comments Migraine med 06/25/2019 Encounter Details Date Type Department Care Team Description 06/25/2019 Telephone [place] Alia Roberts, Migraine med [address] ELECTRONIC SCANNER OPERATOR, PRIVATE EQUITY ASSOCIATE [place], [place] [address] [address] [facility] [address] [phone] [place], [place] [address] Social History Tobacco Use [...] or relatives? How often do you attend pentecostal or Not asked synagogue services? Do you belong to any clubs or Not asked organizations such as pentecostal groups, unions, fraternal or athletic groups, or [...] this encounter Miscellaneous Notes Telephone Encounter - Becki Lane LPN - 06/25/2019 4:21 PM CDT Noted Telephone Encounter - Leslie Cerda MD - 06/25/2019 4:20 PM CDT I talked to Dulce and increased her dose. Telephone Encounter - Kelle Ayala RN - 06/25/2019 11:17 AM CDT Patient said that she is taking Topamax 25mg, 2 capsules daily. She would like to go back to taking 3 daily because her headaches have been worse. Please advise and send Rx to [facility]. Telephone Encounter - Yanira Ken - 06/25/2019 9:06 AM CDT Pt called wondering if Alonso can increase her migraine medication. She used to take three, then Alonso dropped it to two, and now Pt is wondering if it can go back to three. Pt uses [facility]. Please call Pt at [phone] to advise. documented in this encounter Plan of Treatment Not on filedocumented as of this encounter Visit Diagnoses Diagnosis History of migraine headaches - Primary documented in this encounter Care Teams Registered Nurse Ambulatory Relationship Specialty Start Date End Date Alia Roberts APRN, PRIVATE EQUITY ASSOCIATE PCP - General 11/21/17 12/23/[address] [place] [address] CHARAN MASSEY [id number] documented as of this encounter
--- OUTSIDE RECORDS SUMMARY | 2022-03-16 14:56 | XMS_ITS | Encounter Summary ---
:1980 Author Organization [facility] Address [address] [place] [address] Care Team Providers Name Role Phone Alia Roberts APRN, SLATER APPRENTICE Primary Care Provider Encounter Details Date Type Department Care Team Description 07/01/2019 Travel Social History Tobacco Use Types Packs/Day [...] or relatives? How often do you attend quaker or Not asked hoahaoism services? Do you belong to any clubs or Not asked organizations such as quaker groups, unions, fraternal or athletic groups, or [...] on file documented as of this encounter Plan of Treatment Not on filedocumented as of this encounter Visit Diagnoses Not on filedocumented in this encounter Care Teams Tuck Pointer Helper Relationship Specialty Start Date End Date Alia Roberts APRN, SLATER APPRENTICE PCP - General 11/21/17 12/23/[address] [place] [address] CHARAN TEJEDA [id number] documented as of this encounter
--- OUTSIDE RECORDS SUMMARY | 2022-03-16 14:56 | XMS_ITS | Encounter Summary ---
:[address] [facility] Address [address] [place] [address] Care Team Providers Name Role Phone Unavailable Primary Care Provider Unavailable Reason for Visit Reason Comments Med Refill Encounter Details Date Type Department Care Team Description 01/06/2020 Refill [place] Leslie Cerda, History of migraine [address] [facility] [address] MD headaches [place], [place] [address] [phone] [place] [address] Social History Tobacco Use Types Packs/Day Years [...] or relatives? How often do you attend caodaism or Not asked mandaeism services? Do you belong to any clubs or Not asked organizations such as caodaism groups, unions, fraternal or athletic groups, or [...] this encounter Miscellaneous Notes Telephone Encounter - Danica Hoff MA - 01/08/2020 9:54 AM CDT Last visit in provider department: 07/01/2019 Last visit requested medication was discussed: 07/01/2019 Upcoming appointment with provider: none Last Rx: 06/25/2019 # 45, 5 refill. the patient currently is taking her 25 mg tabs two in the AM. ??She will increase this to 3 in the AM and when she runs out she will get the new Rx. Requested Prescriptions Pending Prescriptions Disp Refills ??? topiramate (TOPAMAX) 50 MG tablet [Pharmacy Med Name: TOPIRAMATE 50MG TABS] 45 tablet 5 Sig: TAKE ONE AND ONE-HALF TABLETS BY MOUTH EVERY MORNING FOR MIGRAINE HEADACHES documented in this encounter Plan of Treatment Not on filedocumented as of this encounter Visit Diagnoses Diagnosis History of migraine headaches documented in this encounter
--- OUTSIDE RECORDS SUMMARY | 2022-03-16 14:56 | XMS_ITS | Encounter Summary ---
:1980 Author Organization [facility] Address [address] [place] [address] Care Team Providers Name Role Phone Alia Roberts CINDER PIT CRANE OPERATOR, MANAGER OFFICE SERVICES Primary Care Provider Reason for Visit Reason Onset Date Comments talk with nurse 08/26/2019 Encounter Details Date Type Department Care Team Description 08/26/2019 Telephone [place] Alia Roberts, talk with nurse [address] CINDER PIT CRANE OPERATOR, MANAGER OFFICE SERVICES [place], [place] [address] [address] [facility] [address] [phone] [place], [place] [address] Social History Tobacco Use [...] or relatives? How often do you attend restorationist or Not asked gnosticism services? Do you belong to any clubs or Not asked organizations such as restorationist groups, unions, fraternal or athletic groups, or [...] this encounter Miscellaneous Notes Telephone Encounter - Kelle Ayala RN - 08/26/2019 8:41 AM CDT Patient said that when she went to the ED they mentioned that if it wasn't better in a week she should be reevaluated. She mentioned that they recommended weight bearing xray. She is aware that we can't do that this in our clinic today. They also mentioned that they had discussed seeing an orthopedic provider but that this would need to come from a primary. Patient sent to scheduling to see a provider. Telephone Encounter - Yanira Ken - 08/26/2019 8:27 AM CDT Pt called stating she hurt her right foot almost 2 weeks ago. She did go the [place] ER and they did take x-rays. Pt is in a boot. Pt says she is still having pain and swelling, and is wondering if anything else can be done. Please call Pt at [phone] to advise. documented in this encounter Plan of Treatment Not on filedocumented as of this encounter Visit Diagnoses Not on filedocumented in this encounter Care Teams Ruling Machine Feeder Relationship Specialty Start Date End Date Alia Roberts APRN, MANAGER OFFICE SERVICES PCP - General 11/21/17 12/23/19 [address] [facility] CHARAN TEJEDA [id number] documented as of this encounter
--- OUTSIDE RECORDS SUMMARY | 2022-03-16 14:56 | XMS_ITS | Encounter Summary ---
:1980 Author Organization [facility] Address [address] [place] [address] Care Team Providers Name Role Phone None, Pcp Primary Care Provider Unavailable Reason for Visit Reason Comments Immunizations flu Encounter Details Date Type Department Care Team Description 01/23/2020 Immunization Jhonatan Purvis Immunization due (Primary [address] Dx) [place] [address] Social History Tobacco Use Types [...] or relatives? How often do you attend faith or Not asked advent services? Do you belong to any clubs or Not asked organizations such as faith groups, unions, fraternal or athletic groups, or [...] as of this encounter Visit Diagnoses Diagnosis Immunization due - Primary documented in this encounter Care Teams Pie Crust Mixer Relationship Specialty Start Date End Date None, Pcp PCP - General [place] Attacher 01/23/20 01/26/22 [address] [place] [address] documented as of this encounter
--- OUTSIDE RECORDS SUMMARY | 2022-03-16 14:56 | XMS_ITS | Encounter Summary ---
:1980 Author Organization [facility] Address [address] [place] [address] Care Team Providers Name Role Phone Unavailable Primary Care Provider Unavailable Reason for Visit Reason Onset Date Comments Med Refill 01/21/2020 Encounter Details Date Type Department Care Team Description 01/21/2020 Refill [place] Leslie Cerda MD Anxiety [address] [place], [place] [address] [place], [place] [phone] ( rk) Social History Tobacco Use Types Packs/Day [...] or relatives? How often do you attend baptism or Not asked denominational services? Do you belong to any clubs or Not asked organizations such as baptism groups, unions, fraternal or athletic groups, or [...] this encounter Miscellaneous Notes Telephone Encounter - Talia Ackerman MA - 01/21/2020 1:15 PM CDT Last visit in provider department: 07/22/2019 for gastrointestinal symptoms and hemorrhoids Last visit requested medication was discussed: 11/13/18 Upcoming appointment with provider: none Last Rx: 01/02/19 #90, 3 refills Requested Prescriptions Pending Prescriptions Disp Refills ??? PARoxetine (PAXIL) 10 MG tablet 90 tablet 0 Sig: Take 1 tablet (10 mg total) by mouth 1 (one) time each day in the morning 07/22/2019 PHQ9: 0 Patient is due for an appointment. PSR/Nurse: Please contact patient to assist with scheduling. documented in this encounter Plan of Treatment Not on filedocumented as of this encounter Visit Diagnoses Diagnosis Anxiety Anxiety state, unspecified documented in this encounter
--- OUTSIDE RECORDS SUMMARY | 2022-03-16 14:56 | XMS_ITS | Encounter Summary ---
:[address] [facility] Address [address] [place] [address] Care Team Providers Name Role Phone Alia Roberts APRN, TOOL WORKER Primary Care Provider [phone] Reason for Visit Reason Comments Sinus Problem Encounter Details Date Type Department Care Team Description 07/01/2019 Office Visit Jhonatan Purvis Alia Roberts Sinusitis, [address] M, LANIE BLANCHARD unspecified [place], [place] [address] chronicity, [address] [place] [address] unspecified location [phone] (Primary Dx) Social History Tobacco Use Types Packs/Day Years [...] or relatives? How often do you attend yarsanism or Not asked gnosticist services? Do you belong to any clubs or Not asked organizations such as yarsanism groups, unions, fraternal or athletic groups, or [...] Sign Reading Time Taken Comments Blood Pressure 110/68 07/01/2019 9:01 AM CDT Pulse 98 07/01/2019 9:01 AM CDT Temperature 36.4 ??C (97.5 ??F) 07/01/2019 9:01 AM CDT Respiratory Rate 18 07/01/2019 9:01 AM CDT Oxygen Saturation 98% 07/01/2019 9:01 AM CDT Inhaled Oxygen Concentration - - Weight 92.1 kg (203 lb) 07/01/2019 9:01 AM CDT Height 160 cm (5' 2.99) 07/01/2019 9:01 AM CDT Body Mass Index 35.97 07/01/2019 9:01 AM CDT documented in this encounter Patient Instructions Patient InstructionsChignacio Roberts APRN, LANIE - 07/01/2019 9:00 AM CDT Zpak and nasal spray documented in this encounter Progress Notes Alia Roberts APRN, LANIE - 07/01/2019 9:00 AM CDT Estab Patient Visit Subjective Patient ID: Dulce Lei is a 39 y.o. female presenting for the following concerns. Chief Complaint Patient presents with ??? Sinus Problem HPI: The patient is a pleasant 39 y.o. year old female presenting ambulatory to the clinical setting concerned she has a sinus infection. The patient reports she developed nasal congestion, nasal drainage, postnasal drainage, frontal and maxillary sinus pressure, right-sided facial swelling, and fatigue about a week ago, which is worsening. The patient she has pressure around her eyes. The patient is experiencing ear pain greater on the left than the right. The patient does have throat discomfort and a dry cough induced from the postnasal drainage. No wheezing or dyspnea. The patient has had migraine headaches, and has been evaluated in the emergency room last Monday, and Monday, a week ago. The patien t feels her migraine headaches were likely induced from hormonal fluctuations from her menses last week and her sinus infection. No fever, no chills. No teeth pain, but she does not typically experience teeth pain with her sinus infections. The patient denies any nausea, vomiting, and/or diarrhea. Thepatient is not using her nasal sprays at this time. The patient was evaluated for her symptoms on Monday, 2 days ago, having a negative influenza, and was diagnosed with a virus. No recent travels. The patient reports she is smoking way less. ROS: GENERAL: See HPI. No fever, no chills. EYES: See HPI. No visual changes but pressure around her eyes. EARS: See HPI. The patient reports she has bilateral ear discomfort greater on the left than the right. NOSE: See HPI. The patient has had nasal congestion, nasal drainage, and postnasal drainage for the past week. MOUTH/THROAT: See HPI. The patient reports she has had throat discomfort from postnasal drainage. RESPIRATORY: See HPI. The patient reports she had a dry cough induced from postnasal drainage without wheezing or dyspnea. GASTROINTESTINAL: See HPI. No nausea, vomiting, or diarrhea. FARM MECHANIC: See HPI. The patient had a normal menses last week, the first 1 in 6 months, as she is hormonally suppressed with Depo-Provera. NEUROLOGICAL: See HPI. The patient reports she had migraine headaches last week, likely induced fromhormonal fluctuations from her menses and from a sinus infection. The patient reports her Topamax was increased from 50 mg to 75 mg daily this past winter, and will likely be decreased to 50 mg daily in the summer, when she does not experience as many migraine headaches. The following portions of the patient's chart were reviewed in this encounter and updated as appropriate: Tobacco Allergies Meds Problems Med Hx Surg Hx Fam Hx Current [...] migraine headaches, Disp: 45 tablet, Rfl: 5 ??? azithromycin (ZITHROMAX) 250 MG tablet, Take 2 tabs (500 mg) by mouth today, than 1 daily for 4 days., Disp: 6 tablet, Rfl: 0 ? ? varenicline (CHANTIX DRAGAN) 0.5 MG X 11 & 1 MG X 42 tablet, Use as directed on package instructions, try to quit smoking after 1 week., Disp: 53 tablet, Rfl: 0 Current Facility-Administered Medications: ??? medroxyPROGESTERone (DEPO-PROVERA) injection 150 mg, 150 mg, Intramuscular, q3 months, Abelardo Roberts, CONCRETE BLOCK MAKER, TOOL WORKER, 150 mg at 11/26/18 1638 Objective Visit Vitals BP 110/68 (BP Location: Left arm, Patient Position: Sitting) Pulse 98 Temp 36.4 ??C (97.5 ??F) (Temporal) Resp 18 Ht 1.6 m (5' 2.99) Wt 92.1 kg (203 lb) SpO2 98% BMI 35.97 kg/m?? Smoking Status Current Every Day Smoker BSA 2.02 m?? GENERAL: The patient is alert, orientated, and in no apparent distress. HEENT: Head normocephalic. The patient sounds nasally congested. Eyes - pupils round and reactive tolight. Ears -right ear normal canal, normal pearly johnson TM; left ear normal canal with a pink appearing translucent TM. Throat - erythematous oropharynx cannot appreciate any postnasal drainage. Neck -Supple. No cervical or posterior lymphadenopathy. DIAGNOSTICS: None. Assessment/Plan Dulce was seen today for sinus problem. Diagnoses and all orders for this visit: Sinusitis, unspecified chronicity, unspecified location (Primary) - azithromycin (ZITHROMAX) 250 MG tablet; Take 2 tabs (500 mg) by mouth today, than 1 daily for 4 days. - ipratropium (ATROVENT) 0.03 % nasal spray; Administer 2 sprays into each nostril every 12 (twelve)hours Discussed the plan of care with the patient. Prescribed a Z-Dragan which has historically worked well for the patient, and at times a second Z-Dragan is required depending on the severity of the sinus infection. The patient will contact me if she needs a second Z-Dragan. The patient will restart Atrovent 2 spra ys each nostril every 12 hours, and take xdlu-oyo-qxndhnt pain relievers as needed for headache, sinus pressure, and ear discomfort. The patient agrees and understands this plan of care. Alia Roberts APRN, LANIE documented in this encounter Plan of Treatment Not on filedocumented as of this encounter Visit Diagnoses Diagnosis Sinusitis, unspecified chronicity, unspe cified location - Primary documented in this encounter Care Teams Whipper Relationship Specialty Start Date End Date Alia Roberts APRN, TOOL WORKER PCP - General 11/21/17 12/23/[address] [place] [address] documented as of this encounter
--- OUTSIDE RECORDS SUMMARY | 2022-03-16 14:56 | XMS_ITS | Encounter Summary ---
:1980 Author Organization [facility] Address [address] [place] [address] Care Team Providers Name Role Phone None, Pcp Primary Care Provider Unavailable Encounter Details Date Type Department Care Team Description 02/18/2021 Telephone Jhonatan Purvis None, Pcp [address] [place], [place] [address] [place] [address] Social History Tobacco Use Types Packs/Day Years [...] or relatives? How often do you attend sabianism or Not asked episcopal services? Do you belong to any clubs or Not asked organizations such as sabianism groups, unions, fraternal or athletic groups, or [...] this encounter Miscellaneous Notes Telephone Encounter - Leslie Cerda MD - 02/18/2021 8:52 AM CDT Order for the Quantiferon TB test placed Telephone Encounter - Kelle Ayala RN - 02/18/2021 8:24 AM CDT Patient is requesting the TB blood draw. Please place order. Telephone Encounter - Leslie Cerda MD - 02/18/2021 8:19 AM CDT Order placed/signed Telephone Encounter - Kelle Ayala RN - 02/18/2021 8:15 AM CDT Patient called stating her work is requesting a blood TB test. Can you please order this she will becoming in this morning. documented in this encounter Plan of Treatment Scheduled Orders Name Type Priority Associated Diagnoses Order S chedule TB Skin Test Point of Care Routine Tuberculosis screening Orde red: 02/18/2021 Testing documented as of this encounter Visit Diagnoses Diagnosis Tuberculosis screening - Primary Screening examination for pulmonary tube rculosis documented in this encounter Care Teams Stencil Sprayer Relationship Specialty Start Date End Date None, Pcp PCP - General Check And Transfer Beader 01/23/20 01/26/22 [address] [place] [address] documented as of this encounter
--- OUTSIDE RECORDS SUMMARY | 2022-03-16 14:56 | XMS_ITS | Clinical Summary ---
:1980 Author Organization [facility] Address [address] [place] [address] Care Team Providers Name Role Phone Augusto Frazier MD Primary Care Provider Allergies Active Allergy Reactions Severity Noted Date Comments Amoxicillin-Pot Other (see comments) Low 08/12/2011 Clavulanate Bupropion Fluoxetine Quinolones Unknown Medium 06/02/2010 QUINOLONES - Ci pro; vomiting Silicone Unknown Low 08/21/2010 Medications Medication Sig Dispensed Refills Start Date End Date Status ibuprofen Take 4 tablets by 0 04/22/2014 A ctive (ADVIL,MOTRIN) 200 MG mouth if needed tablet fluticasone (FLONASE) Administer 2 sprays 0 08/08/19 18 Active 50 MCG/ACT nasal into affected spray nostril(s) 1 (one) time each day cetirizine (ZyrTEC) TAKE ONE TABLET BY 90 tablet 3 01/17/2019 Active 10 MG MOUTH EVERY DAY tabletIndications: NEEDED FOR Seasonal allergies ALLERGIES PARoxetine (PAXIL) 10 Take 1 tablet (10 90 tablet 2 01/21/2020 Active MG tabletIndications: mg total) by mouth Anxiety 1 (one) time each day in the morning Additional Information Patient not taking. Reported on 07/01/2021 hydrOXYzine (VISTARIL) 25 MG Take 25 mg by mouth every 6 0 06/21/2021 Active capsule hours as needed DULoxetine (CYMBALTA) [address] Take 30 mg by mouth daily 0 10/22/2020 Active capsule lkpyiwdafe-vsmjyzuhdhbdx-zoxujsxk Take 1 tablet by mouth 0 12/28/2020 Active (FIORICET) 50-325-40 MG per tablet every 6 hours as needed acetaminophen (TYLENOL) 325 MG Take 650 mg by mouth every 0 Active tablet 30 minutes as needed Active Problems Problem Noted Date Chronic rhinitis 01/29/2019 Stress incontinence 07/03/2017 Chronic sinusitis 03/14/2017 Melena 06/28/2016 Major depressive disorder, single episode 02/19/2015 Sacrococcygeal disorders, not elsewhere classified 08/2014 Anxiety state, unspecified 11/10/2014 Nondependent tobacco use disorder 10/28/2014 Chronic paroxysmal hemicrania 10/28/2014 Lumbar radiculopathy 11/29/2007 Migraine with aura 11/02/2005 Overview: Problem list name updated by automated p miladys. Provider to review Immunizations Name Administration Dates Next Due HPV, Quadrivalent 03/17/2009 Hepatitis B 03/25/2014, 03/25/2014, 05/20/2005, 05/20/2005, 06/13/2003, 06/13/2003 Influenza (IM) Preservative Free 01/21/2014 Influenza 6mo-49yrs Quad Preservative 02/09/2021, 01/23/2020 , 04/04/2019, Free IM 01/24/2018, 01/11/2017, 01/28/2016 Influenza TIV (IM) 02/02/2012, 02/14/2006, 01/24/2002 Influenza, Unspecified 01/21/2014, 01/30/2013, 02/08/2011, 12/29/2008 PPD Test 02/18/2021 (Deferred: No longer needed) Pneumococcal Polysaccharide 08/26/2010 Td 06/13/2003 Tdap 04/19/2021, 12/05/2013, 06/13/2013, 08/26/2010 Family History Medical History Relation Comments Diverticulitis Father Hypertension Father Heart attack Maternal Grandfather Heart disease Maternal Grandfather Depression Mother Diabetes Mother Hypertension Mother Asthma Sister Relation Status Comments Daughter 1 Alive Daughter 2 Alive Father Alive Maternal Grandfather Mother Alive Sister Alive Son Alive Social History Tobacco Use Types Packs/Day Years [...] do you attend yarsanism or Not asked alevism services? Do you belong to any clubs or Not asked organizations such as yarsanism groups, unions, fraAvansera or athletic groups, or school groups? How [...] Assigned at Date Recorded Not on file Last Filed Vital Signs Vital Sign Reading [...] Mass Index 36.58 07/01/2021 10:33 AM CDT Plan of Treatment Health Maintenance Due Date Last Done Comments Pneumococcal Vaccine: 08/27/2011 08/26/2010 Pediatrics (0 to 5 Years) and At-Risk Patients (6 to 64 Years) (2 - PCV) Pap Smear 07/03/2020 07/03/2017, 07/03/2015 COVID-19 Vaccine (3 - 06/28/2021 05/03/2021, 12/16/2020 Booster for Pfizer series) DTaP,Tdap,and Td Vaccines 04/19/2031 04/19/2021, 12/05/2013 , (5 - Td or Tdap) 06/13/2013, Additional history exists HPV Vaccines Aged Out 03/17/2009 No longer eligib le based on patient 's age to complete this topic Insurance Payer Benefit Plan / Subscriber ID Effective Dates Phone Addre ss Type Group [facility] [id number] [facility] [address] [facility] [address] Care Teams Construction Project Coordinator Relationship Specialty Start Date End Date Augusto Frazier MD PCP - General 01/27/[address] [place] [address]
--- OUTSIDE RECORDS SUMMARY | 2022-03-16 14:56 | XMS_ITS | Encounter Summary ---
:1980 Author Organization [facility] Address [address] [place] [address] Care Team Providers Name Role Phone Alia Roberts APRN, EMBROIDERY WORKER Primary Care Provider [phone] Reason for Visit Reason Comments Immunizations flu shot Encounter Details Date Type Department Care Team Description 04/04/2019 Immunization [place] [address] [place], [place] [address] Social History Tobacco Use [...] or relatives? How often do you attend mandaen or Not asked hoahaoism services? Do you belong to any clubs or Not asked organizations such as mandaen groups, unions, fraternal or athletic groups, or [...] on file documented as of this encounter Progress Notes Kelle Ayala RN - 04/04/2019 8:00 AM CST Patient denies a previous reaction to any vaccines. Reviewed screening questionnaire with patient prior to administration. VIS given. NTIFIC AIDE documented in this encounter Plan of Treatment Not on filedocumented as of this encounter Visit Diagnoses Not on filedocumented in this encounter Care Teams Mmd Unit Teacher Relationship Specialty Start Date End Date Alia Roberts APRN, EMBROIDERY WORKER PCP - General 11/21/17 12/23/[address] [place] [address] CHARAN TEJEDA [id number] documented as of this encounter
--- OUTSIDE RECORDS SUMMARY | 2022-03-16 14:57 | XMS_ITS | Encounter Summary ---
:1980 Author Organization [facility] Address [address] [place] [address] Care Team Providers Name Role Phone Alia Roberts METAL MOLD DRESSER, WET PROCESS OPERATOR Primary Care Provider [phone] Reason for Visit Reason Onset Date Comments Depo 11/23/2018 Encounter Details Date Type Department Care Team Description 11/23/2018 Telephone [place] Alia Roberts, Depo [address] METAL MOLD DRESSER, LANIE [place], [place] [address] [address] [facility] [address] [phone] [place], [place] [address] Social History Tobacco Use [...] or relatives? How often do you attend presybeterian or Not asked church services? Do you belong to any clubs or Not asked organizations such as presybeterian groups, unions, fraternal or athletic groups, or [...] Telephone Encounter - Kelle Ayala RN - 11/26/2018 9:00 AM CDT Noted. Telephone Encounter - Alia Roberts APRN, LANIE - 11/26/2018 8:10 AM CDT Yes. Alonso White Telephone Encounter - Kelle Ayala RN - 11/23/2018 4:16 PM CDT Patient informed that per our administration guidelines she has to have her period and a negative test in order to receive the Depo. If the patient does not have her period and has had sex inthe last 2 weeks she is to have a test, abstain from sex for 2 weeks and then have another test prior to initating the depo. Patient said she previously had decided not to do the depo but she would like to now. She mentioned she had a negative urine test 10/26/2018. She was transferred to make an appointment with the lab for a urine test. If negative can patient initiate the depo again? Telephone Encounter - Kelle Ayala RN - 11/23/2018 3:54 PM CDT Please advise, do you want to see this patient or have her do a urine ? She was due for thedepo in 10/2018. Telephone Encounter - Marielena Rodríguez - 11/23/2018 3:44 PM CDT Patient has her period and is wondering if she can come in for a depo or if she has to see Alonso Roberts. Please advise. documented in this encounter Plan of Treatment Not on filedocumented as of this encounter Visit Diagnoses Not on filedocumented in this encounter Care Teams Industrial Sewer Relationship Specialty Start Date End Date Alia Roberts APRN, WET PROCESS OPERATOR PCP - General 11/21/17 12/23/19 100 [facility] [place] [address] documented as of this encounter
--- OUTSIDE RECORDS SUMMARY | 2022-03-16 14:57 | XMS_ITS | Encounter Summary ---
:1980 Author Organization [facility] Address [address] [place] [address] Care Team Providers Name Role Phone Alia Roberts APRN, DELICATESSEN STORE MANAGER Primary Care Provider [phone] Encounter Details Date Type Department Care Team Description 10/26/2018 Lab [place] Canceled (Other: Error) [address] [place], [place] [address] Social History Tobacco Use [...] or relatives? How often do you attend lutheran or Not asked taoist services? Do you belong to any clubs or Not asked organizations such as lutheran groups, unions, fraternal or athletic groups, or [...] on filedocumented in this encounter Care Teams Air Intelligence Officer Relationship Specialty Start Date End Date Alia Roberts APRN, DELICATESSEN STORE MANAGER PCP - General 11/21/17 12/23/[address] [place] [address] [place] [address] documented as of this encounter
--- OUTSIDE RECORDS SUMMARY | 2022-03-16 14:57 | XMS_ITS | Encounter Summary ---
:1980 Author Organization [facility] Address [address] [place] [address] Care Team Providers Name Role Phone Alia Roberts APRN, LANIE Primary Care Provider [phone] Reason for Visit Reason Comments Thyroid Problem CHECK Encounter Details Date Type Department Care Team Description 10/26/2018 Office Visit [place] Alia Roberts Other fatigue (Primary Dx); [address] M, LANIE BLANCHARD Amenorrhea [place], [place] 100 [facility] [address] [place] [address] Social History Tobacco Use Types Packs/Day Years [...] or relatives? How often do you attend nondenominational or Not asked hindu services? Do you belong to any clubs or Not asked organizations such as nondenominational groups, unions, fraternal or athletic groups, or [...] Sign Reading Time Taken Comments Blood Pressure 104/72 10/26/2018 3:49 PM CDT Pulse 110 10/26/2018 3:49 PM CDT Temperature 36 ??C (96.8 ??F) 10/26/2018 3:49 PM CDT Respiratory Rate 16 10/26/2018 3:49 PM CDT Oxygen Saturation 96% 10/26/2018 3:49 PM CDT Inhaled Oxygen Concentration - - Weight 90.9 kg (200 lb 6.4 oz) 10/26/2018 3:49 PM CDT Height 159 cm (5' 2.6) 10/26/2018 3:49 PM CDT Body Mass Index 35.96 10/26/2018 3:49 PM CDT documented in this encounter Patient Instructions Patient InstructionsChignacio Roberts APRN, CNP - 10/26/2018 3:40 PM CDT Will call with the lab results documented in this encounter Progress Notes Alia Roberts APRN, LANIE - 10/26/2018 3:40 PM CDT Estab Patient Visit Subjective Patient ID: Dulce Lei is a 38 y.o. female presenting for the following concerns. Chief Complaint Patient presents with ??? Thyroid Problem CHECK HPI: The patient is a pleasant 38-year-old female presenting ambulatory to the clinical setting today with fatigue she has had for the past 2 to 3 months, which is worsening. The patient reports she sleeps longer, naps frequently, and despite the amount of sleep she attains, she does not feel rested, and inquires if her symptoms are from thyroid dysfunction. The patient denies constipation, palpitations, dry hair or nails. The patient's TSH on August 30, 2017 was normal at 1.39. The patient feels challengedwith her son, who at the age of 4, likely has ADHD, and behavioral issues, which he recognizes within himself, but is having a difficult time controlling his behaviors. The patient???s son is scheduledto see a pediatric psychiatrist in [facility]. The patient reports her son???s behaviors are mentally draining to her. 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 The patient reports she was forced to quit school. The patient???s has to proceed with knee surgery, again this is stressful, but she does not necessarily feel anxious nor depressed. The patient acknowledges she does not eat good, she is typically hungry in the morning, and then does not eat all day, and supper does not settle. No nausea, no vomiting. The patient has had abdominalbloating. The patient reports it takes forever to fall asleep, but when she is asleep she stays asleep, and the naps frequently, as stated above. No sleep apnea. No fever but chills. The patient has gained weight since she had the Nexplanon removed on 07/26/2018, and started the Depo, a likely side effect from Depo. The patient was due for her Depo injection between October 09 and October 23, and is uncertain when she had her last menses, as she is hormonally suppressed. Her breasts feel firm but not necessarily tender. ROS: GENERAL: See HPI. The patient has had fatigue, for the past 2 to 3 months, which is worsening. The patient has a difficult time falling asleep but not staying asleep, and naps frequently, but despite the amount of sleep she is getting, she still feels fatigued. The patient reports she has gained weight since starting the Depo, which she feels is a side effect. CARDIOVASCULAR: No palpitations. BREASTS: The patient reports her breasts feel firm but not necessarily tender. GASTROINTESTINAL: No constipation. ATHLETIC EQUIPMENT CUSTODIAN: The patient had a Depo shot on 07/26/2018, when her Nexplanon was removed, but was due to have the Depo shot between October 09 and October 23. ENDOCRINOLOGY: No history of thyroid dysfunction but she inquires if her symptoms could by thyroid dysfunction. PSYCHIATRIC: The patient reports she feels stressed but anxious nor depressed. The following portions of the patient's chart were reviewed in this encounter and updated as appropriate: Tobacco Allergies Meds Problems Med Hx Surg Hx Fam Hx Current Outpatient Medications: ??? azelastine (ASTELIN) 0.1 % nasal spray, Administer 2 sprays into affected nostril(s) 2 (two) times a day, Disp: , Rfl: ??? cetirizine (ZyrTEC) 10 MG tablet, Take 1 tablet (10 mg total) by mouth if needed for allergies, Disp: 90 tablet, Rfl: 3 ??? fluticasone (FLONASE) 50 MCG/ACT nasal spray, Administer 2 sprays into affected nostril(s) 1 (one) time each day, Disp: , Rfl: ??? guaiFENesin (MUCINEX) 600 MG 12 hr tablet, Take 600 mg by mouth, Disp: , Rfl: ??? ibuprofen (ADVIL,MOTRIN) 200 MG tablet, Take 4 tablets by mouth if needed, Disp: , Rfl: ??? ipratropium (ATROVENT) 0.03 % nasal spray, Administer 2 sprays into affected nostril(s) 2 (two) times a day , Disp: , Rfl: ??? ketorolac (TORADOL) 10 MG tablet, Take 10 mg by mouth take one tablet at needed for pain may repeat in 8 hours not to exceed 40 mg in a 24 hour period, Disp: , Rfl: ??? pseudoephedrine (SUDAFED) 30 MG tablet, Take 30 mg by mouth if needed, Disp: , Rfl: ??? topiramate (TOPAMAX) 50 MG tablet, Take 50 mg by mouth 1 (one) time each day, Disp: , Rfl: Current Facility-Administered Medications: ??? medroxyPROGESTERone (DEPO-PROVERA) injection 150 mg, 150 mg, Intramuscular, q3 months, Abelardo Roberts APRN, CLOTH MERCERIZER BACK TENDER, 150 mg at 07/26/18 1638 Objective Visit Vitals BP 104/72 (BP Location: Left arm, Patient Position: Sitting) Pulse 110 Temp (!) 36 ??C (96.8 ??F) (Temporal) Resp 16 Ht 1.59 m (5' 2.6) Wt 90.9 kg (200 lb 6.4 oz) SpO2 96% BMI 35.96 kg/m?? Smoking Status Current Every Day Smoker BSA 2 m?? GENERAL: The patient is alert, orientated, and in no apparent distress. NECK: Supple. No cervical or posterior lymphadenopathy. No thyromegaly. INTEGUMENTARY: Hair full appears healthy. DIAGNOSTICS: Thyroid cascade, Vitamin D level, CBC with diff, and urine . Lab on 10/26/2018 Component Date Value Ref Range Status ??? WBC 10/26/2018 7.5 3.5 - 10.5 K/uL Final ??? RBC 10/26/2018 4.23 3.90 - 5.00 M/uL Final ??? Hemoglobin 10/26/2018 13.0 12.0 - 15.5 g/dL Final ??? Hematocrit 10/26/2018 39.3 35.0 - 44.0 % Final ??? Platelets 10/26/2018 320 150 - 450 K/uL Final ??? MCV 10/26/2018 92.9 81.6 - 98.3 fL Final ??? MCH 10/26/2018 30.7 26.0 - 32.0 pg Final ??? MCHC 10/26/2018 33.1 32.0 - 36.0 g/dL Final ??? RDW 10/26/2018 12.4 11.9 - 15.5 % Final ??? Lymphocytes % 10/26/2018 39.3 18.0 - 45.0 % Final ??? Mid-size Cells 10/26/2018 7.9 3.3 - 10.1 % Final ??? Granulocytes/Neutrophils 10/26/2018 52.8 45.8 - 73.7 % Final ??? Lymphocytes Absolute 10/26/2018 2.9 0.9 - 2.9 K/uL Final ??? MIDS Absolute 10/26/2018 0.6 0.2 - 0.8 K/uL Final ??? Granulocytes/Neutrophils Absolute 10/26/2018 4.0 2.1 - 8.7 K/uL Final ??? Test, Urine 10/26/2018 NEGATIVE Negative Final Assessment/Plan Dulce was seen today for thyroid problem. Diagnoses and all orders for this visit: Other fatigue (Primary) - Thyroid Function [place]; Future - CBC Branch Off w/Diff; Future - Vitamin D, Total [place] Future Amenorrhea - , urine; Future Discussed the plan of care with the patient. The patient's fatigue is likely multifactorial, and maybe difficult to determine the etiology. The fatigue started when she started the Depo, which is contributing to her weight gain, and possibly her fatigue. The patient will be notified of her lab results ruling out thyroid dysfunction. The patient agrees and understands plan of care. lAia Roberts APRN, LANIE documented in this encounter Plan of Treatment Not on filedocumented as of this encounter Results , urine (10/26/2018 4:24 PM CDT) athologist Signature NEGATIVE Negative 10/26/2018 [facility] [place] Test, Urine 4:29 PM CDT COBB Specimen Anatomical Collection Method Collection Time Receive d Time (Source) Location / / Volume Laterality Urine (Urine, 10/26/2018 4:24 PM 10/27/19 19 4:24 Clean Catch) CDT PM CDT Alia Roberts APRN, LANIE LAB URINE ORDERABLES Performing Organization Address City/State/ZIP Code Phon e Number [facility] [place] [address] [place] [address] (ABNORMAL) Vitamin D, Total ([facility] preferred) (10/26/2018 4:20 PM CDT) [facility] Signature Vitamin D, 24.7 (A) ng/mL 10/29/2018 [facility] Total 1:25 PM CDT [facility] Comment: Deficient ?<20 ? ng/mL Insufficient ? 20-<30 ??ng/mL Sufficient ? 30-100 ??ng/mL Vitamin D2/D3 fractionation is recommend ed at the discretion of the clinician if Total Vitamin D is w ithin deficient or insufficient range. Specimen Anatomical Collection Method Collection Time Receive d Time (Source) Location / / Volume Laterality Blood (Blood, 10/26/2018 4:20 PM 10/30/19 19 Venous) CDT 12:39 PM CDT Alia Roberts APRN, CNP LAB BLOOD ORDERABLES Performing Organization Address City/State/ZIP Code Phon e Number [facility] [address] [place] [address] CBC Branch Off w/Diff (10/26/2018 4:20 PM CDT) P athologist Signature WBC 7.5 3.5 - 10.5 10/26/2018 [facility] [place] K/uL 4:29 PM CDT [place] RBC 4.23 3.90 - 10/26/2018 [facility] [place] 5.00 M/uL 4:29 PM CDT [place] Hemoglobin 13.0 12.0 - 10/26/2018 [facility] [place] 15.5 g/dL 4:29 PM CDT [place] Hematocrit 39.3 35.0 - 10/26/2018 [facility] [place] 44.0 % 4:29 PM CDT [place] Platelets 320 150 - 450 10/26/2018 [facility] [place] K/uL 4:29 PM CDT [place] MCV 92.9 81.6 - 10/26/2018 [facility] [place] 98.3 fL 4:29 PM CDT [place] MCH 30.7 26.0 - 10/26/2018 [facility] [place] 32.0 pg 4:29 PM CDT [place] MCHC 33.1 32.0 - 10/26/2018 [facility] [place] 36.0 g/dL 4:29 PM CDT [place] RDW 12.4 11.9 - 10/26/2018 [facility] [place] 15.5 % 4:29 PM CDT [place] Lymphocytes % 39.3 18.0 - 10/26/2018 [facility] [place] 45.0 % 4:29 PM CDT [place] Mid-size Cells 7.9 3.3 - 10.1 10/26/2018 [facility] [place] [place] % 4:29 PM CDT [place] Granulocytes/Chris 52.8 45.8 - 10/26/2018 [facility] [place] trophils 73.7 % 4:29 PM CDT [place] Lymphocytes 2.9 0.9 - 2.9 10/26/2018 [facility] [place] [place] Absolute K/uL 4:29 PM CDT [place] MIDS Absolute 0.6 0.2 - 0.8 10/26/2018 [facility] [place] K/uL 4:29 PM CDT [place] Granulocytes/Chris 4.0 2.1 - 8.7 10/26/2018 [facility] [place] [place] trophils K/uL 4:29 PM CDT [place] Absolute Specimen Anatomical Collection Method Collection Time Receive d Time (Source) Location / / Volume Laterality Blood (Blood, 10/26/2018 4:20 PM 10/27/19 19 4:20 Venous) CDT PM CDT Alia Roberts APRN, CLOTH MERCERIZER BACK TENDER LAB BLOOD ORDERABLES Performing Organization Address City/State/ZIP Code Phon e Number [facility] [place] [place] [address] [place] [address] Thyroid Function [place] (10/26/2018 4:20 PM CDT) P athologist Signature TSH, Sensitive 1.30 0.46 - 10/29/2018 [facility] 4.68 mIU/L 1:59 PM CDT [facility] Comment: The results from this or any other diagn ostic test should be used and interpreted only in the context of the overall clinical picture. Biotin levels in serum remain elevated f or up to 24 hours after oral or intravenous biotin adminis tration and may interfere with this assay to produce unr eliable results. Heterophilic antibodies in serum or plas ma samples may cause interference in immunoassays. ??Exposure to animal antigens, either in the environment or as part of treatment or imaging procedures, may have circulating anti-an imal antibodies present. These antibodies may interfere with the assay reagents to produce unreliable results. ??Results which are inconsistent with clinical observations indicate the need for additional testing. Specimen Anatomical Collection Method Collection Time Receive d Time (Source) Location / / Volume Laterality Blood (Blood, 10/26/2018 4:20 PM 10/30/19 19 Venous) CDT 12:50 PM CDT Alia Roberts APRN, CNP LAB BLOOD ORDERABLES Performing Organization Address City/State/ZIP Code Phon e Number [facility] [address] [place] [address] documented in this encounter Visit Diagnoses Diagnosis Other fatigue - Primary Amenorrhea Absence of menstruation documented in this encounter Care Teams Varnish Inspector Relationship Specialty Start Date End Date Alia Roberts APRN, LANIE PCP - General 11/21/17 12/23/19 100 [place] [address] documented as of this encounter
--- OUTSIDE RECORDS SUMMARY | 2022-03-16 14:57 | XMS_ITS | Encounter Summary ---
:1980 Author Organization [facility] Address [address] [place] [address] Care Team Providers Name Role Phone Alia Roberts BULK STATION OPERATOR, VEGETABLE FARM MANAGER Primary Care Provider [phone] Encounter Details Date Type Department Care Team Description 07/20/2018 Telephone [place] Alia Roberts, [address] BULK STATION OPERATOR, VEGETABLE FARM MANAGER [place], [place] [address] [address] [facility] [address] [phone] [place], [place] [address] Social History Tobacco Use [...] do you attend yarsanism or Not asked hoahaoism services? Do you [...] this encounter Miscellaneous Notes Telephone Encounter - Tegan Montalvo - 07/20/2018 8:17 AM CDT Face sheet added and faxed to [facility] at [phone] Telephone Encounter - Marlyn Mccartney MA - 07/20/2018 8:01 AM CDT Please fax. Telephone Encounter - Alia Roberts APRN, LANIE - 07/20/2018 5:43 AM CDT Please fax the patient's preoperative history and physical to [phone], [facility]. Thanks, Alonso documented in this encounter Plan of Treatment Not on filedocumented as of this encounter Visit Diagnoses Not on filedocumented in this encounter Care Teams Hoop Expander Relationship Specialty Start Date End Date Alia Roberts APRN, VEGETABLE FARM MANAGER PCP - General 11/21/17 12/23/19 100 [facility] [place] [address] documented as of this encounter
--- OUTSIDE RECORDS SUMMARY | 2022-03-16 14:57 | XMS_ITS | Encounter Summary ---
:1980 Author Organization [facility] Address [address] [place] [address] Care Team Providers Name Role Phone Alia Roberts CITY WEIGHMASTER, RESEARCH EXECUTIVE Primary Care Provider [phone] Reason for Visit Reason Comments Pre-op Exam NFLD SPIRAL TUBE WINDER, DOS: 07/25/18, FAX: [phone] Encounter Details Date Type Department Care Team Description 07/19/2018 Consult [place] Alia Roberts, Preoperative [address] CITY WEIGHMASTERLANIE Lacy examination (Primary [place], [place] [address] Dx) [phone] [place], [place] [address] Social History Tobacco Use [...] do you attend nondenominational or Not asked muslim services? Do you belong to any clubs [...] Sign Reading Time Taken Comments Blood Pressure 114/80 07/19/2018 3:53 PM CDT Pulse 108 07/19/2018 3:53 PM CDT Temperature 37 ??C (98.6 ??F) 07/19/2018 3:53 PM CDT Respiratory Rate 16 07/19/2018 3:53 PM CDT Oxygen Saturation 97% 07/19/2018 3:53 PM CDT Inhaled Oxygen Concentration - - Weight 91 kg (200 lb 9.9 oz) 07/19/2018 3:53 PM CDT Height 161 cm (5' 3.39) 07/19/2018 3:53 PM CDT Body Mass Index 35.11 07/19/2018 3:53 PM CDT documented in this encounter Progress Notes Alia Roberts, LO, RESEARCH EXECUTIVE - 07/19/2018 4:00 PM CDT Preoperative History and Physical Assessment/Plan Dulce Lei is a 38 y.o. female here for a preoperative history and physical examination for a bilateral salpingectomies and Nexplanon removal. The preoperative risk assessment has determined the following: No contraindications to planned surgery No problems updated. Dulce was seen today for pre-op exam. Diagnoses and all orders for this visit: Preoperative examination (Primary) The patient may proceed with the proposed bilateral salpingectomies and Nexplanon removal, under thecare of an CORE ASSEMBLY SUPERVISOR specialist, at [facility], on July 25, 2018. The patient has the [facility] patient instructions explaining the need to be n.p.o. X 8 hours, a list of medications to hold x 7 days, and the need for a interstate bus driver. The patient agrees and understands this plan of care. Subjective HPI: The patient presents to the clinical setting today for a preoperative history and physical examination. The patient desires permanent sterilization and had met with the CORE ASSEMBLY SUPERVISOR specialist at [facility] to discuss options. The patient is proceeding with the recommended bilateral salpingectomiesand Nexplanon removal, under local with MAC, on July 25, 2018, at [facility], under the care of CORE ASSEMBLY SUPERVISOR specialty. Current Outpatient Medications: ??? azelastine (ASTELIN) 0.1 % nasal spray, Administer 2 sprays into affected nostril(s) 2 (two) times a day, Disp: , Rfl: ??? budesonide (PULMICORT) 0.5 MG/2ML nebulizer solution, Mix 1 ampule in sinus irrigation bottle and irrigate twice daily., Disp: , Rfl: ??? cetirizine (ZyrTEC) 10 MG tablet, Take 1 tablet (10 mg total) by mouth if needed for allergies, Disp: 90 tablet, Rfl: 3 ??? etonogestrel-eluting contraceptive device (NEXPLANON) 68 MG implant, Inject 68 mg under the skinInserted 06/22/17, Lot: [id number], Exp: 06/2019, Disp: , Rfl: ??? fluticasone (FLONASE) 50 [...] times a day, Disp: , Rfl: ??? ketorolac (TORADOL) 10 MG tablet, Take 10 mg by mouth take one tablet at needed for pain may repeat in 8 hours not to exceed 40 mg in a 24 hour period, Disp: , Rfl: ??? pseudoephedrine (SUDAFED) 30 MG tablet, Take 30 mg by mouth if needed, Disp: , Rfl: ??? Sodium Chloride-Sodium Bicarb (NETI POT SINUS WASH NA), Administer into affected nostril(s), Disp: , Rfl: ??? topiramate (TOPAMAX) 50 MG tablet, Take 50 mg by mouth 1 (one) time each day, Disp: , Rfl: Allergies Allergen Reactions ??? Quinolones Unknown QUINOLONES - Cipro; vomiting ??? Bupropion ??? Fluoxetine ??? Amoxicillin-Pot Clavulanate Other (see comments) ??? Silicone Unknown Immunization History Administered Date(s) Administered ??? HPV, Quadrivalent 03/17/2009 ??? Hepatitis B 06/13/2003, 06/13/2003, 05/20/2005, 05/20/2005, 03/25/2014, 03/25/2014 ??? Influenza (IM) Preservative Free 01/21/2014 ? ? Influenza (IM)>3yr Quadrivalent Preservative Free 01/28/2016, 01/11/2017, 01/24/2018 ??? Influenza TIV (IM) 02/14/2006, 02/02/2012 ??? Influenza, Unspecified 12/29/2008, 02/08/2011, 01/30/2013, 01/21/2014 ??? Pneumococcal Polysaccharide 08/26/2010 ??? Td 06/13/2003 ??? Tdap 08/26/2010, 06/13/2013, 12/05/2013 Past Medical History: Diagnosis Date ??? Allergic ??? Allergic rhinitis ??? Anxiety ??? Asthma ??? Depression ??? Headache ??? Pneumonia ??? Urinary tract infection ??? Varicella ??? Visual impairment Past Surgical History: Procedure Laterality Date ??? COLONOSCOPY 07/05/2016 colonoscopy with diverticulosis ??? DENTAL SURGERY nasal sinus 09/20/2000; sinus surgery x 2002 ??? DILATION AND CURETTAGE OF UTERUS 03/26/2013 ??? ENDOMETRIAL BIOPSY ??? MYRINGOTOMY W/ TUBES ventilating tube insertion at age 8 ??? TONSILLECTOMY 04/1998 w/ adenoidectomy Family History Problem Relation Age of Onset ??? Diabetes Mother ??? Hypertension Mother ??? Depression Mother ??? Hypertension Father ??? Diverticulitis Father ??? Asthma Sister ??? Heart disease Maternal Grandfather ??? Heart attack Maternal Grandfather Social History Socioeconomic History ??? Marital status: Single Spouse name: Not on file ??? Number of children: Not on file ??? Years of education: Not on file ??? Highest education level: Some college, no degree Occupational History ??? 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 Financial resource strain: Not on file ??? Food insecurity: Worry: Not on file Inability: Not on file ??? Transportation needs: Medical: No Non-medical: No Tobacco Use ??? Smoking status: Current Every Day Smoker ??? Smokeless tobacco: Never Used Substance and Sexual Activity ??? Alcohol use: Yes Comment: rare ??? Drug use: No ??? Sexual activity: Yes Lifestyle ??? Physical activity: Days per week: Not on file Minutes per session: Not on file ??? Stress: Not on file Relationships ??? Social connections: Talks on phone: More than three times a week Gets together: More than three times a week Attends muslim service: Not on file Active member of club or organization: Not on file Attends meetings of clubs or organizations: Not on file Relationship status: Not on file ??? Intimate partner violence: Fear of current or ex partner: No Emotionally abused: Not on file Physically abused: Not on file Forced sexual activity: Not on file Other Topics Concern ??? Not on file Social History Narrative ??? Not on file ROS: No personal or family history of bleeding or clotting disorders, or malignant hyperthermia. GENERAL: No fever, chills, sweats, change in weight, change in appetite and/or fatigue. INTEGUMENTARY: No rashes, lesions, and/or pruritus. HEAD/NECK: No headache or dizziness. The patient experiences sinus and migraine headaches. EYES: No visual changes. The patient wears glasses and sees an eye doctor on a regular basis. EARS: No hearing loss, pain and/or tinnitus. NOSE: Nasal congestion, nasal drainage. No epistaxis. MOUTH/THROAT: No problems with teeth, gums, and/or trouble swallowing. The patient sees a dentist suaznne regular basis. CARDIOVASCULAR: No chest pain, pressure, palpitations, peripheral edema, lightheadedness, dizziness,presyncope, syncope, and/or cardiac murmurs. RESPIRATORY: The patient is a current everyday smoker. No dyspnea on exertion, cough, asthma and/or wheezing. GASTROINTESTINAL: No nausea, vomiting, diarrhea, heartburn, loss of appetite, and/or abdominal pain. GENITOURINARY: No dysuria, urinary frequency, urgency, nocturia and/or hematuria. SPIRAL TUBE WINDER: 4, para 2. The last menstrual period was July 09. The patient's last Pap smear and HPV co-test was on 07/03/17, which was normal. ENDOCRINOLOGY: No thyroid dysfunction, diabetes, nor osteoporosis. MUSCULOSKELETAL: No arthritis, joint pain, swelling, and/or myalgias. The patient reports she developed lower back pain last Monday, one week ago, which is possible from sleeping in her bed wrong. No injury. NEUROLOGICAL: History of migraine headaches on Topamax for prevention. No numbness, tingling, weakness, and/or seizures. PSYCHIATRIC: No anxiety nor depression. Objective Pulmonary Risk SpO2: 97 % Visit Vitals BP 114/80 (BP Location: Left arm, Patient Position: Sitting) Pulse 108 Temp 37 ??C (98.6 ??F) (Temporal) Resp 16 Ht 1.61 m (5' 3.39) Wt 91 kg (200 lb 9.9 oz) SpO2 97% BMI 35.11 kg/m?? Smoking Status Current Every Day Smoker BSA 2.02 m?? GENERAL: The patient is alert, orientated and in no apparent distress. HEET: Head normocephalic. Eyes - pupils round and reactive to light. EOMs intact without nystagmus. Ears - normal canals, normal pearly johnson TMs bilaterally. Throat - normal oropharynx. Uvula rises midline. No erythema. NECK: Supple. No cervical or posterior lymphadenopathy. No thyromegaly. INTEGUMENTARY: Skin is warm and dry. No evidence of lesions. CARDIOVASCULAR: Normal heart rate and rhythm. No murmur. No peripheral edema. Positive peripheral pulses, x4. RESPIRATORY: Lungs are clear, bilaterally. No wheezing. MUSCULOSKELETAL: The patient moves freely about the room. GASTROENTEROLOGY: Abdomen is soft, no organomegaly, positive bowel sounds. NEUROLOGICAL: The patient is alert and oriented to person, place, time, and situation. PSYCHIATRIC: The patient's affect is appropriate. Radiology Tests to be Ordered: None. Laboratory Tests to be Ordered: None. Immunizations: Immunization History Administered Date(s) Administered ??? HPV, Quadrivalent 03/17/2009 ??? Hepatitis B 06/13/2003, 06/13/2003, 05/20/2005, 05/20/2005, 03/25/2014, 03/25/2014 ??? Influenza (IM) Preservative Free 01/21/2014 ? ? Influenza (IM)>3yr Quadrivalent Preservative Free 01/28/2016, 01/11/2017, 01/24/2018 ??? Influenza TIV (IM) 02/14/2006, 02/02/2012 ??? Influenza, Unspecified 12/29/2008, 02/08/2011, 01/30/2013, 01/21/2014 ??? Pneumococcal Polysaccharide 08/26/2010 ??? Td 06/13/2003 ??? Tdap 08/26/2010, 06/13/2013, 12/05/2013 Comments: You should not drive for at least 24 hours after your surgery, or as instructed by your surgeon. Instructed patient to quit tobacco use. Medication Instructions: ipratropium (ATROVENT) 0.03 % nasal spray [[id number]] KEEP taking medication through morning of surgery with a small sip of water. ibuprofen (ADVIL,MOTRIN) 200 MG tablet [[id number]], ketorolac (TORADOL) 10 MG tablet [[id number]] STOP taking medication 7 days prior to surgery. documented in this encounter Plan of Treatment Not on filedocumented as of this encounter Visit Diagnoses Diagnosis Preoperative examination - Primary Unspecified pre-operative examination documented in this encounter Care Teams Radio Aerial Installer Relationship Specialty Start Date End Date Alia Roberts APRN, RESEARCH EXECUTIVE PCP - General 11/21/17 12/23/19 [address] [facility] [place] [address] documented as of this encounter
--- OUTSIDE RECORDS SUMMARY | 2022-03-16 14:57 | XMS_ITS | Encounter Summary ---
:1980 Author Organization [facility] Address [address] [place] [address] Care Team Providers Name Role Phone Alia Roebrts APRN, PARTY DEMONSTRATOR Primary Care Provider [phone] Reason for Visit Reason Comments Follow-up Vitamin D Anxiety Encounter Details Date Type Department Care Team Description 11/13/2018 Office Visit [place] Alia Roberts Anxiety (Primary Dx) [address] M, LO, LANIE [place], [place] 100 [facility] [address] [place] [address] Social History Tobacco Use Types Packs/Day Years [...] or relatives? How often do you attend christianity or Not asked denominational services? Do you belong to any clubs or Not asked organizations such as christianity groups, unions, fraternal or athletic groups, or [...] Sign Reading Time Taken Comments Blood Pressure 100/72 11/13/2018 4:06 PM CDT Pulse 96 11/13/2018 4:06 PM CDT Temperature 36.8 ??C (98.2 ??F) 11/13/2018 4:06 PM CDT Respiratory Rate 16 11/13/2018 4:06 PM CDT Oxygen Saturation - - Inhaled Oxygen Concentration - - Weight 90.6 kg (199 lb 11.8 oz) 11/13/2018 4:06 PM CDT Height 160 cm (5' 3) 11/13/2018 4:06 PM CDT Body Mass Index 35.38 11/13/2018 4:06 PM CDT documented in this encounter Patient Instructions Patient InstructionsChrisalma rosa Roberts APRN, CNP - 11/13/2018 4:00 PM CDT Vitamin D 1000 international units daily in the summer, then increase to 2000 international units Paxil 10 mg daily and then follow up in one month documented in this encounter Progress Notes Alia Roberts APRN, CNP - 11/13/2018 4:00 PM CDT Estab Patient Visit Subjective Patient ID: Dulce Lei is a 38 y.o. female presenting for the following concerns. Chief Complaint Patient presents with ??? Follow-up Vitamin D ??? Anxiety HPI: The patient is a pleasant 38-year-old female presenting ambulatory to the clinical setting today to discuss her increasing anxiety levels and to a lesser extent depression. The patient has a long-standing history of anxiety which started at the age of 14 when her maternal grandmother , whom she lived with and was extremely close to. The patient???s maternal grandfather when she was 18, whom she was close to as well. The patient has previously been diagnosed with anxiety and depression and had been on Prozac, Wellbutrin, and Celexa, which were not effective. The patient reports her anxiety supersedes her depression, and is likely causing her low level of depression at this time. The patient reports she doesn't want to go anywhere, do anything, and is content with staying home, but is not content with how she is feeling. The patient reports she is restless, worries about irrelevant things, such as what she is going to make for supper the next day. She reports she is unable to stop thoughts, shut her brain off. The patient reports she is either sleeping too much or not all. The patient feels stressed the past couple of weeks after her significant other injured his knee on October 19 and will be proceeding with surgery. The patient's significant other, the father of her son, encouraged the patient to make this appointment last evening; therefore, she scheduled it. The patient denies any suicidal thoughts or ideations nor has ever felt suicidal. The patient's mother has anxiety and depression, is on Paxil, which has been an effective medication for her. The patient is not on Depo at this time, missing her last recommended injection for contraception, and reports she is not sexual active. The patient is also on Topamax for migraine headache prevention, and understands she should be on contraception, while on Topamax. The patient filled out a PHQ-9 and KATIA-7 form today. The patient???s vitamin D level of 24.7 on 10/26/2018, she has been on replacement, and feels better. ROS: GENERAL: See HPI. The patient reports she is sleeping too much or not at all, and likely associated with her anxiety and to a lesser extent her depression. ENDOCRINOLOGY: The patient has a history of vitamin D deficiency and is currently on vitamin D replacement. PSYCHIATRIC: See HPI. The patient has a long-standing history of anxiety and depression, which started when her maternal grandmother when she was 14 years old; her maternal grandfather diedwhen she was 18, someone she was also close to. The following portions of the patient's chart were reviewed in this encounter and updated as appropriate: Tobacco Allergies Meds Problems Med Hx Surg Hx Fam Hx Soc Hx Current Outpatient Medications: ??? azelastine (ASTELIN) [...] 24 hour period, Disp: , Rfl: ??? topiramate (TOPAMAX) 50 MG tablet, Take 50 mg by mouth 1 (one) time each day, Disp: , Rfl: ??? PARoxetine (PAXIL) 10 MG tablet, Take 1 tablet (10 mg total) by mouth 1 (one) time each day in the morning, Disp: 30 tablet, Rfl: 1 Current Facility-Administered Medications: ??? medroxyPROGESTERone (DEPO-PROVERA) injection 150 mg, 150 mg, Intramuscular, q3 months, Abelardo Roberts APRN, PARTY DEMONSTRATOR, 150 mg at 07/26/18 1638 Objective Visit Vitals BP 100/72 (BP Location: Left arm, Patient Position: Sitting) Pulse 96 Temp 36.8 ??C (98.2 ??F) (Temporal) Resp 16 Ht 1.6 m (5' 3) Wt 90.6 kg (199 lb 11.8 oz) BMI 35.38 kg/m?? Smoking Status Current Every Day Smoker BSA 2.01 m?? GENERAL: The patient is alert, orientated, and in no apparent distress. PSYCHIATRIC: The patient's affect is appropriate. The patient's PHQ-9 score was 3 and her KATIA-7 score was 17 today. DIAGNOSTICS: None. Assessment/Plan Dulce was seen today for follow-up and anxiety. Diagnoses and all orders for this visit: Anxiety (Primary) - PARoxetine (PAXIL) 10 MG tablet; Take 1 tablet (10 mg total) by mouth 1 (one) time each day in themorning Discussed the plan of care with the patient. The patient requests to be started on Paxil or Lexapro,but understands she needs to be on contraception, and she plans to make the decision within the nextcouple of days, and agrees to proceed with contraception, which she was encouraged to start before the medication. The patient is also on Topamax another reason for contraception, and she understands this concern. The patient will follow up in one month. The patient agrees and understands this plan ofcare. Alia Roberts APRN, CNP documented in this encounter Plan of Treatment Not on filedocumented as of this encounter Visit Diagnoses Diagnosis Anxiety - Primary Anxiety state, unspecified documented in this encounter Care Teams Front Office Supervisor Relationship Specialty Start Date End Date Alia Roberts APRN, CNP PCP - General 11/21/17 12/23/19 [address] [facility] [place] [address] documented as of this encounter
--- OUTSIDE RECORDS SUMMARY | 2022-03-16 14:57 | XMS_ITS | Encounter Summary ---
:1980 Author Organization [facility] Address [address] [place] [address] Care Team Providers Name Role Phone Alia Roberts CLINICAL RESEARCH DIRECTOR, MANAGER MULTICULTURAL Primary Care Provider [phone] Reason for Visit Reason Comments Med Refill Encounter Details Date Type Department Care Team Description 01/15/2019 Refill [place] Alia Roberts, Seasonal allergies [address] CLINICAL RESEARCH DIRECTOR, [place], [place] [address] [address] [facility] [address] [phone] [place], [place] [address] Social History Tobacco Use [...] or relatives? How often do you attend anabaptist or Not asked mormon services? Do you belong to any clubs or Not asked organizations such as anabaptist groups, unions, fraternal or athletic groups, or [...] this encounter Miscellaneous Notes Telephone Encounter - Alisha Salgado MA - 01/17/2019 8:40 AM CDT Last visit in Provider Department: 11/13/2018 Upcoming appointment with Provider: Visit date not found Last Rx: 02/08/18 #90 with 3 refills Requested Prescriptions Pending Prescriptions Disp Refills ??? cetirizine (ZyrTEC) 10 MG tablet [Pharmacy Med Name: CETIRIZINE HCL 10MG TABS] 90 tablet 3 Sig: TAKE ONE TABLET BY MOUTH EVERY DAY NEEDED FOR ALLERGIES documented in this encounter Plan of Treatment Not on filedocumented as of this encounter Visit Diagnoses Diagnosis Seasonal allergies Allergic rhinitis, cause unspecified documented in this encounter Care Teams Folding Rules Printing Machine Operator Relationship Specialty Start Date End Date lAia Roberts APRN, MANAGER MULTICULTURAL PCP - General 11/21/17 12/23/[address] [place] [address] [place] [address] documented as of this encounter
--- OUTSIDE RECORDS SUMMARY | 2022-03-16 14:57 | XMS_ITS | Encounter Summary ---
:1980 Author Organization [facility] Address [address] [place] [address] Care Team Providers Name Role Phone Alia Roberts FUEL CELL TECHNICIAN, RETURNED GOODS RECEIVING CLERK Primary Care Provider [phone] Reason for Visit Reason Onset Date Comments Returned call to Alonso Roberts 11/14/2018 Encounter Details Date Type Department Care Team Description 11/14/2018 Telephone [place] Alia Roberts, Returned call to Alonso [address], LAN[place], [place] [address] [facility] [address] [phone] [place], [place] [address] Social History Tobacco Use [...] or relatives? How often do you attend judaism or Not asked mandaeism services? Do you belong to any clubs or Not asked organizations such as judaism groups, unions, fraternal or athletic groups, or [...] Encounter - Alia Roberts APRN, CNP - 11/14/2018 2:04 PM CDT The patient wants to start the Paxil at this time. The patient is not sexual active and will decide contraception by Monday. The patient gained weight on the Depo. Telephone Encounter - Kelle Ayala RN - 11/14/2018 1:54 PM CDT Please call patient to discuss medication. Telephone Encounter - Yanira Ken - 11/14/2018 9:22 AM CDT Pt said she can be reached at [phone] any time today. She will keep her phone with her all day. documented in this encounter Plan of Treatment Not on filedocumented as of this encounter Visit Diagnoses Not on filedocumented in this encounter Care Teams Physical Therapist Aide Relationship Specialty Start Date End Date Alia Roberts APRN, RETURNED GOODS RECEIVING CLERK PCP - General 11/21/17 12/23/19 [address] [facility] [place], [place] [address] documented as of this encounter
--- OUTSIDE RECORDS SUMMARY | 2022-03-16 14:57 | XMS_ITS | Encounter Summary ---
:1980 Author Organization [facility] Address [address] [place] [address] Care Team Providers Name Role Phone Alia Roberts SENIOR NETWORK SYSTEMS ENGINEER, SORTER OPERATOR Primary Care Provider [phone] Reason for Visit Reason Comments Med Refill Encounter Details Date Type Department Care Team Description 11/26/2018 Refill [place] Alia Roberts, Nicotine dependence, [address] SENIOR NETWORK SYSTEMS ENGINEER, SORTER OPERATOR uncomplicated, [place], [place] [address] unspecified nicotine [phone] [place], [place] [address] product type Social History Tobacco Use Types Packs/Day Years [...] or relatives? How often do you attend buddhist or Not asked temple services? Do you belong to any clubs or Not asked organizations such as buddhist groups, unions, fraternal or athletic groups, or [...] this encounter Miscellaneous Notes Telephone Encounter - Aubrie Pereyra MA - 11/28/2018 3:16 PM CDT Script was sent on 07/28/2018 documented in this encounter Plan of Treatment Not on filedocumented as of this encounter Visit Diagnoses Diagnosis Nicotine dependence, uncomplicated, unsp ecified nicotine product type documented in this encounter Care Teams Manager Social Services Relationship Specialty Start Date End Date Alia Roberts APRN, SORTER OPERATOR PCP - General 11/21/17 12/23/[address] [place] [address] [place] [address] documented as of this encounter
--- OUTSIDE RECORDS SUMMARY | 2022-03-16 14:57 | XMS_ITS | Encounter Summary ---
:1980 Author Organization [facility] Address [address] [place] [address] Care Team Providers Name Role Phone Alia Roberts APRN, CYCLE SPECIALIST Primary Care Provider [phone] Reason for Visit Reason Comments Procedure Nexplanon removal Encounter Details Date Type Department Care Team Description 07/26/2018 Office Visit [place] Alia Roberts Nexplanon removal (Primary D x); [address] M, LANIE BLANCHARD Encounter for other contraceptive manage ment; [place], [place] [address] Nicotine dependence, uncomplicated, unsp ecified nicotine product type [address] [place] [address] Social History Tobacco Use Types Packs/Day Years [...] do you attend quaker or Not asked worship services? Do you belong to any clubs [...] Sign Reading Time Taken Comments Blood Pressure 104/76 07/26/2018 3:15 PM CDT Pulse 88 07/26/2018 3:15 PM CDT Temperature 37.1 ??C (98.7 ??F) 07/26/2018 3:15 PM CDT Respiratory Rate 16 07/26/2018 3:15 PM CDT Oxygen Saturation - - Inhaled Oxygen Concentration - - Weight 92.1 kg (203 lb 0.7 oz) 07/26/2018 3:15 PM CDT Height 159 cm (5' 2.6) 07/26/2018 3:15 PM CDT Body Mass Index 36.43 07/26/2018 3:15 PM CDT documented in this encounter Progress Notes Kelle Ayala RN - 07/26/2018 3:20 PM CDT Patient due to next Depo between 10/11 - 10/25/18. Patient given this information on card prior to departure. Alia Roberts APRN, CYCLE SPECIALIST - 07/26/2018 3:20 PM CDT Estab Patient Visit Subjective Patient ID: Dulce Lei is a 38 y.o. female presenting for the following concerns. Chief Complaint Patient presents with ??? Procedure Nexplanon removal HPI: The patient is a pleasant 38-year-old female presenting ambulatory to the clinical setting today requesting to have her Nexplanon removed, which she had placed about a year ago for contraception, and would like to resume Depo- Provera. The patient reports since she has had the Nexplanon, she has had inc reased menstrual bleeding, with bleeding which can last an entire month. She has had increased migraine headaches. The patient???s migraine headaches are hormonally induced, and she experienced less headaches when on the Depo-Provera, with improved menstrual cycle regulation. The patient was scheduledfor a tubal ligation; however, she opted not to proceed, as this did not feel right at this time of her life. The patient has had abnormal Pap smears; her last Pap smear on 07/03/17, was normal, negative NILM and HPV co-testing. No bleeding or clotting disorders. Personal history of migraine headaches. The patient continues Topamax for migraine headache prevention, now 50 mg daily. She was previously on 75 mg daily, but felt the medication was affecting her speech; therefore decreased the dose. The patient reports when her dose was 200 mg daily, she started hallucinating. The patient would like to stop smoking. The patient reports she was on Chantix before , which decreased her craving for nicotine, and would like to resume this medication. The patient reports she did have dreams while taking the Chantix, which were good dreams. The patient is now smoking a pack of cigarettes per day, has been smoking most of her adult life, and understands the implications of smoking on her health. The patient is ready to stop smoking. ROS: RESPIRATORY: See HPI. The patient has a history of nicotine dependence, smoking a pack of cigarettesper day, and is requesting to have Chantix renewed, which was effective in decreasing her nicotine cravings. HERBICIDE SPRAYER: 5, para 2. The patient does have a history of cervical dysplasia. The patient had a normal Pap smear in 2010, 10/2011 LSIL, 12/2011 LISSETT 1 on colposcopy, 08/27 ASCUS with high-risk HPV, 06/01 ASCUS with high-risk HPV, 06/29 LISSETT-1 on colposcopy. The patient was referred to IT APPLICATIONS MANAGER for a LEEP procedure in 07/2014, but does not recall having a LEEP procedure, but rather recommendation of having a Pap smear repeated in 1 year. The patient had a normal Pap smear in 2016. The patient had a normal Papsmear on 07/03/17 with negative HPV co-testing. The following portions of the patient's chart were reviewed in this encounter and updated as appropriate: Tobacco Allergies Meds Med Hx Surg Hx Fam Hx Soc Hx Objective Visit Vitals BP 104/76 (BP Location: Left arm, Patient Position: Sitting) Pulse 88 Temp 37.1 ??C (98.7 ??F) (Temporal) Resp 16 Ht 1.59 m (5' 2.6) Wt 92.1 kg (203 lb 0.7 oz) BMI 36.43 kg/m?? Smoking Status Current Every Day Smoker BSA 2.02 m?? GENERAL: The patient is alert, orientated, and in no apparent distress. PROCEDURE: Nexplanon removal: The patient signed a consent form, after using 2 patient identifiers, for Nexplanon removal. The patient's mid inner upper left arm was prepped with Betadine x3 in a circular fashion and infiltrated with 2 mL of 1% lidocaine. Under sterile technique, a small incision was made with an 11- blade scalpel, and with the assistance of a nurse, the Nexplanon was visualized and removed. The removal site was washed, steri strips applied, and covered with coban. Assessment/Plan Dulce was seen today for procedure. Diagnoses and all orders for this visit: Nexplanon removal (Primary) - lidocaine 1% (XYLOCAINE) 1 % injection 20 mg Encounter for other contraceptive management - medroxyPROGESTERone (DEPO-PROVERA) injection 150 mg Nicotine dependence, uncomplicated, unspecified nicotine product type - varenicline (CHANTIX ZAKIA) 0.5 MG X 11 & 1 MG X 42 tablet; Use as directed on package instructions, try to quit smoking after 1 week. Discussed the plan of care with the patient. The patient should watch for signs and symptoms of infection at the Nexplanon removal site. Ordered Depo-Provera x 1 year. Prescribed the Chantix starter pack, and discussed the side effects of Chantix, which she has been on before. The patient agrees and understands plan of care. Alia Rboerts, OPTICAL MECHANIC, CYCLE SPECIALIST documented in this encounter Plan of Treatment Not on filedocumented as of this encounter Visit Diagnoses Diagnosis Nexplanon removal - Primary Encounter for other contraceptive manage ment Nicotine dependence, uncomplicated, unsp ecified nicotine product type documented in this encounter Administered Medications Inactive Administered Medications - up to 3 most recent administrations Medication Order MAR Action Action Date Dose Rate Site lidocaine 1% (XYLOCAINE) 1 Given by Other 07/26/2018 4:00 PM CDT 20 m g Left Arm % injection 20 mg 20 mg (2 mL), Infiltration, Once, On Roxie 07/26/18 at 1730, For 1 dose medroxyPROGESTERone (DEPO-PROVERA) Given 11/26/2018 4:38 PM CDT 150 mg Other injection 150 mg 150 mg, Intramuscular, Every 3 months, First dose on Roxie 07/26/18 at 1730, For 4 doses Given 07/26/2018 4:38 PM CDT 150 mg Left Ventrogluteal documented in this encounter Care Teams Cake Wringer Relationship Specialty Start Date End Date Alia Roberts APRN, CYCLE SPECIALIST PCP - General 11/21/17 12/23/19 100 [facility] [place] [address] documented as of this encounter
--- OUTSIDE RECORDS SUMMARY | 2022-03-16 14:57 | XMS_ITS | Encounter Summary ---
:1980 Author Organization [facility] Address [address] [place] [address] Care Team Providers Name Role Phone Alia Roberts SALES PORTER, HAND BOOKED FOLDER AND STITCHER Primary Care Provider [phone] Encounter Details Date Type Department Care Team Description 10/29/2018 Orders Only [place] Alia Roberts, Vitamin deficiency [address] SALES PORTER, LANIE (Primary Dx) [place], [place] [address] [address] [place] [address] Social History Tobacco Use Types Packs/Day Years [...] or relatives? How often do you attend confucianist or Not asked alevism services? Do you belong to any clubs or Not asked organizations such as confucianist groups, unions, fraternal or athletic groups, or [...] this encounter Visit Diagnoses Diagnosis Vitamin deficiency - Primary Unspecified vitamin deficiency documented in this encounter Care Teams Communications Coordinator Relationship Specialty Start Date End Date Alia Roberts, SALES PORTER, HAND BOOKED FOLDER AND STITCHER PCP - General 11/21/17 12/23/[address] [place] [address] [place] [address] documented as of this encounter
--- OUTSIDE RECORDS SUMMARY | 2022-03-16 14:57 | XMS_ITS | Encounter Summary ---
:1980 Author Organization [facility] Address [address] [place] [address] Care Team Providers Name Role Phone Alia Roberts APRN, CARGO OPERATIONS AGENT Primary Care Provider [phone] Encounter Details Date Type Department Care Team Description 10/26/2018 Lab [place] Other fatigue; [address] Amenorrhea [place], [place] [address] Social History Tobacco Use [...] do you attend anabaptist or Not asked jain services? Do you belong to any clubs [...] Name Priority Date/Time Associated Diagnosis Comme nts , URINE Routine 10/26/2018 4:24 PM Amenorrhea Resul ts for this CDT procedure are i n the results section. THYROID FUNCTION Routine 10/26/2018 4:20 PM Other fatigue Resu lts for this CASCADE CDT procedure are i n the results section. VITAMIN D, TOTAL Routine 10/26/2018 4:20 PM Other fatigue Resu lts for this CDT procedure are i n the results section. CBC BRANCH OFFICE Routine 10/26/2018 4:20 PM Other fatigue Res ults for this W/DIFF CDT procedure are i n the results section. documented in this encounter Results , urine (10/26/2018 4:24 PM CDT) P athologist Signature NEGATIVE Negative 10/26/2018 [facility] [place] Test, Urine 4:29 PM CDT FALLS Specimen Anatomical Collection Method Collection Time Receive d Time (Source) Location / / Volume Laterality Urine (Urine, 10/26/2018 4:24 PM 10/27/19 19 4:24 Clean Catch) CDT PM CDT Alia Roberts APRN, CARGO OPERATIONS AGENT LAB URINE ORDERABLES Performing Organization Address City/State/ZIP Code Phon e Number [facility] [place] [address] [place] [address] Thyroid Function [place] (10/26/2018 4:20 PM CDT) P athologist Signature [...] CDT 12:50 PM CDT Alia Roberts APRN, CARGO OPERATIONS AGENT LAB BLOOD ORDERABLES Performing Organization Address City/State/ZIP Code Phon e Number [facility] [address] [place] [address] CBC Branch Off w/Diff (10/26/2018 4:20 PM CDT) P athologist Signature WBC 7.5 3.5 - 10.5 10/26/2018 [facility] [place] K/uL 4:29 PM CDT [place] RBC 4.23 3.90 - 10/26/2018 [facility] [place] 5.00 M/uL 4:29 PM CDT [place] Hemoglobin 13.0 12.0 - 10/26/2018 [facility] [place] 15.5 g/dL 4:29 PM CDT [place] Hematocrit 39.3 35.0 - 10/26/2018 C [place] 44.0 % 4:29 PM CDT [place] Platelets 320 150 - 450 10/26/2018 [facility] [place] K/uL 4:29 PM CDT [place] MCV 92.9 81.6 - 10/26/2018 [facility] [place] 98.3 fL 4:29 PM CDT [place] MCH 30.7 26.0 - 10/26/2018 [facility] [place] 32.0 pg 4:29 PM CDT [place] MCHC 33.1 32.0 - 10/26/2018 [facility] 36.0 g/dL 4:29 PM CDT [place] RDW 12.4 11.9 - 10/26/2018 [facility] 15.5 % 4:29 PM CDT [place] Lymphocytes % 39.3 18.0 - 10/26/2018 [facility] 45.0 % 4:29 PM CDT [place] Mid-size Cells 7.9 3.3 - 10.1 10/26/2018 [facility] [place] % 4:29 PM CDT [place] Granulocytes/Chris 52.8 45.8 - 10/26/2018 [facility] [place] trophils 73.7 % 4:29 PM CDT [place] Lymphocytes 2.9 0.9 - 2.9 10/26/2018 [facility] Absolute K/uL 4:29 PM CDT [place] MIDS Absolute 0.6 0.2 - 0.8 10/26/2018 [facility] K/uL 4:29 PM CDT [place] Granulocytes/Chris 4.0 2.1 - 8.7 10/26/2018 [facility] trophils K/uL 4:29 PM CDT [place] Absolute Specimen Anatomical Collection Method Collection Time Receive d Time (Source) Location / / Volume Laterality Blood (Blood, 10/26/2018 4:20 PM 10/27/19 19 4:20 Venous) CDT PM CDT Alia Roberts APRN, CARGO OPERATIONS AGENT LAB BLOOD ORDERABLES Performing Organization Address City/State/ZIP Code Phon e Number [facility] [place] [address] [place] [address] (ABNORMAL) Vitamin D, Total ([facility] preferred) (10/26/2018 4:20 PM CDT) Analysis Performed At Patho logist Time Signature Vitamin D, 24.7 (A) [...] CDT 12:39 PM CDT Alia Roberts APRN, LANIE LAB BLOOD ORDERABLES Performing Organization Address City/State/ZIP Code Phon e Number [facility] [address] [place] [address] documented in this encounter Visit Diagnoses Diagnosis Other fatigue Amenorrhea Absence of menstruation documented in this encounter Care Teams Gericare Aide Teacher Relationship Specialty Start Date End Date Alia Roberts APRN, CARGO OPERATIONS AGENT PCP - General 11/21/17 12/23/19 100 [place] [address] documented as of this encounter
--- OUTSIDE RECORDS SUMMARY | 2022-03-16 14:57 | XMS_ITS | Encounter Summary ---
:[address] [facility] Address [address] [place] [address] Care Team Providers Name Role Phone Alia Roberts V BELT BUILDER, GATE KEEPER Primary Care Provider [phone] Encounter Details Date Type Department Care Team Description 11/14/2018 Telephone [place] Alia Roberts, [address] V BELT BUILDER, GATE KEEPER [place], [place] [address] [address] [facility] [address] [phone] [place], [place] [address] Social History Tobacco Use [...] or relatives? How often do you attend hinduism or Not asked 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 Do you belong to any clubs or Not asked organizations such as hinduism groups, unions, fraternal or athletic groups, or [...] - Alia Roberts APRN, CNP - 11/14/2018 9:03 AM CDT Left a message with the patient would like to discuss recent prescription with her. She was encouraged to call back and give a time to contact here. documented in this encounter Plan of Treatment Not on filedocumented as of this encounter Visit Diagnoses Not on filedocumented in this encounter Care Teams Combination Saw Operator Relationship Specialty Start Date End Date Alia Roberts APRN, LANIE PCP - General 11/21/17 12/23/[address] [place] [address] documented as of this encounter
--- OUTSIDE RECORDS SUMMARY | 2022-03-16 14:57 | XMS_ITS | Encounter Summary ---
:1980 Author Organization [facility] Address [address] [place] [address] Care Team Providers Name Role Phone Alia Roberts APRN, LANIE Primary Care Provider [phone] Reason for Visit Reason Comments Med Refill Encounter Details Date Type Department Care Team Description 12/29/2018 Refill [place] Alia Roberts APRN, Anxiety [address] [place], [place] [address] [address] [facility] [address] [phone] [place], [place] [address] Social History Tobacco Use [...] or relatives? How often do you attend druze or Not asked voodoo services? Do you belong to any clubs or Not asked organizations such as druze groups, unions, fraternal or athletic groups, or [...] this encounter Miscellaneous Notes Telephone Encounter - Joi Chery MA - 01/02/2019 9:37 AM CDT Last visit in Provider Department: 11/13/2018 PHQ 9 (10/26/2018): 0 Upcoming appointment with Provider: Visit date not found Last Rx: 11/13/2018. #30. 1 refill Requested Prescriptions Pending Prescriptions Disp Refills ??? PARoxetine (PAXIL) 10 MG tablet [Pharmacy Med Name: PAROXETINE HCL 10MG TABS] 30 tablet 1 Sig: TAKE ONE TABLET BY MOUTH EVERY MORNING Vitals: BP Readings from Last 2 Encounters: 11/13/18 100/72 10/26/18 104/72 Patient is due for MED FOLLOW UP appointment. PSR/Nurse: Please contact patient to assist with scheduling. documented in this encounter Plan of Treatment Not on filedocumented as of this encounter Visit Diagnoses Diagnosis Anxiety Anxiety state, unspecified documented in this encounter Care Teams Manager Trade Relationship Specialty Start Date End Date Alia Roberts APRN, PAINTING CONTRACTOR PCP - General 11/21/17 12/23/19 100 [facility] [place] [address] documented as of this encounter
--- OUTSIDE RECORDS SUMMARY | 2022-03-16 14:57 | XMS_ITS | Encounter Summary ---
:1980 Author Organization [facility] Address [address] [place] [address] Care Team Providers Name Role Phone Alia Roberts APRN, ANIMAL ECOLOGIST Primary Care Provider [phone] Reason for Visit Reason Comments Immunizations DEPO Encounter Details Date Type Department Care Team Description 11/26/2018 Immunization [place] [address] [place], [place] [address] Social History Tobacco Use [...] or relatives? How often do you attend mandaeism or Not asked lutheran services? Do you belong to any clubs or Not asked organizations such as mandaeism groups, unions, fraternal or athletic groups, or [...] documented as of this encounter Progress Notes Becki Lane LPN - 11/26/2018 4:00 PM CDT The patient was in today for her DEPO. If able to take Paxil with Chantix she needs a prescription renewal. If unable to take together she does not need a Chantix renewal. Her test was negative prior to giving the DEPO immunization today. Patient Due: 02/11-02/25 Alia Roberts APRN, LANIE - 11/26/2018 4:00 PM CDT Chantix was sent, starter pack. Kelle Ayala RN - 11/26/2018 4:00 PM CDT Patient informed. Becki Lane LPN - 11/26/2018 4:00 PM CDT Nurse Note Patient informed documented in this encounter Plan of Treatment Not on filedocumented as of this encounter Visit Diagnoses Not on filedocumented in this encounter Administered Medications Inactive Administered Medications - up to 3 most recent administrations Medication Order MAR Action Action Date Dose Rate Site medroxyPROGESTERone (DEPO-PROVERA) Given 11/26/2018 4:38 PM 150 mg Other injection 150 mg CDT 150 mg, Intramuscular, Every 3 months, First dose on Roxie 07/26/18 at 1730, For 4 doses Given 07/26/2018 4:38 PM CDT 150 mg Left Ventrogluteal documented in this encounter Care Teams Community Association Manager Relationship Specialty Start Date End Date Alia Roberts APRN, ANIMAL ECOLOGIST PCP - General 11/21/17 12/23/19 100 [facility] [place] [address] documented as of this encounter
--- OUTSIDE RECORDS SUMMARY | 2022-03-16 14:57 | XMS_ITS | Encounter Summary ---
:1980 Author Organization [facility] Address [address] [place] [address] Care Team Providers Name Role Phone Augusto Frazier MD Primary Care Provider Reason for Visit Reason Comments Med Refill Encounter Details Date Type Department Care Team Description 12/25/2018 Refill [place] Alia Roberts, Vitamin deficiency [address] STRUCTURAL STEEL WORKER APPRENTICE, [place], [place] [address] [address] [facility] [address] [phone] [place], [place] [address] Social History Tobacco Use [...] or relatives? How often do you attend rastafarian or Not asked mandaeism services? Do you belong to any clubs or Not asked organizations such as rastafarian groups, unions, fraternal or athletic groups, or [...] Telephone Encounter - Becki Lane LPN - 12/27/2018 12:38 PM CDT Patient informed Telephone Encounter - Alia Roberts APRN, COMMERCIAL PEST CONTROL TECHNICIAN - 12/27/2018 12:33 PM CDT That would work as well, I would only want her to take this for 8 weeks no longer. Thanks Alonso Telephone Encounter - Becki Lane LPN - 12/27/2018 12:17 PM CDT Dulce thought you prescribed 50,000 once a week. She bought 5,000 I.u. Pills to take one tablet dailyto equal 50,000i.u. Is this correct? She just started it yesterday. Telephone Encounter - Becki Lane LPN - 12/27/2018 12:15 PM CDT LMTC Telephone Encounter - Ellen Diaz RN - 12/26/2018 9:47 AM CDT LMTCB Telephone Encounter - Alia Roberts APRN, LANIE - 12/25/2018 4:32 PM CDT The patient can take 2000 international units daily. ThanksAlonso Telephone Encounter - Ellen Diaz RN - 12/25/2018 2:37 PM CDT I was able to find an OTC dose of 50,000 U. Are you agreeable to the patient taking this? Telephone Encounter - Yanira Ken - 12/25/2018 2:17 PM CDT Pt called stating she currently does not have any insurance. Pt is wondering if there is an OTC way for her to get the Vit D dose Alonso is wanting her to have. Please call Pt at [phone] to advise. documented in this encounter Plan of Treatment Not on filedocumented as of this encounter Visit Diagnoses Diagnosis Vitamin deficiency Unspecified vitamin deficiency documented in this encounter Care Teams Pyrotechnic Mixer Relationship Specialty Start Date End Date Augusto Frazier MD PCP - General 01/27/[address] [place] [address] documented as of this encounter
--- OUTSIDE RECORDS SUMMARY | 2022-03-16 14:57 | XMS_ITS | Encounter Summary ---
:1980 Author Organization [facility] Address [address] [place] [address] Care Team Providers Name Role Phone Alia Roberts APRN, GRAIN MERCHANDISING MANAGER Primary Care Provider [phone] Encounter Details Date Type Department Care Team Description [facility] [address] contraceptive management [place], [place] [address] Social History Tobacco Use [...] do you attend episcopalian or Not asked hinduism services? Do you belong to any clubs [...] Associated Diagnosis Comme nts , URINE Routine 11/26/2018 4:09 PM Encounter for othe r Results for this CDT contraceptive procedure are in management the results section. documented in this encounter Results , urine (11/26/2018 4:09 PM CDT) athologist Signature NEGATIVE Negative 11/26/2018 [facility] Test, Urine 4:43 PM CDT [place] Specimen Anatomical Collection Method Collection Time Receive d Time (Source) Location / / Volume Laterality Urine (Urine, 11/26/2018 4:09 PM 11/27/19 19 4:27 Clean Catch) CDT PM CDT Alia Roberts APRN, CNP LAB URINE ORDERABLES Performing Organization Address City/State/ZIP Code Phon e Number [facility] [place] [address] [place] [address] documented in this encounter Visit Diagnoses Diagnosis Encounter for other contraceptive manage ment documented in this encounter Care Teams Lone Lead Lineman Relationship Specialty Start Date End Date Alia Roberts APRN, GRAIN MERCHANDISING MANAGER PCP - General 11/21/17 12/23/19 100 [facility] [place] [address] documented as of this encounter
--- OUTSIDE RECORDS SUMMARY | 2022-03-16 14:57 | XMS_ITS | Encounter Summary ---
:1980 Author Organization [facility] Address [address] [place] [address] Care Team Providers Name Role Phone Alia Roberts FACULTY HEAD, PUMP MACHINE OPERATOR Primary Care Provider [phone] Encounter Details Date Type Department Care Team Description 11/27/2018 Orders Only [place] Alia Roberts, Cigarette nicotine [address] FACULTY HEAD, LANIE dependence with [place] [address] nicotine-induced [address] [place] [address] disorder (Primary Dx) [phone] Social History Tobacco Use Types Packs/Day Years [...] or relatives? How often do you attend voodoo or Not asked hinduism services? Do you belong to any clubs or Not asked organizations such as voodoo groups, unions, fraternal or athletic groups, or [...] as of this encounter Visit Diagnoses Diagnosis Cigarette nicotine dependence with nicot ine-induced disorder - Primary documented in this encounter Care Teams Yarn Dumper Relationship Specialty Start Date End Date Alia Roberts APRN, PUMP MACHINE OPERATOR PCP - General 11/21/17 12/23/[address] [place] [address] [place] [address] documented as of this encounter
--- OUTSIDE RECORDS SUMMARY | 2022-03-16 14:57 | XMS_ITS | Encounter Summary ---
:1980 Author Organization [facility] Address [address] [place] [address] Care Team Providers Name Role Phone Alia Roberts TUNNEL HEADING INSPECTOR, VAMP CUT OUT WORKER Primary Care Provider [phone] Encounter Details Date Type Department Care Team Description 11/23/2018 Orders Only [place] Alia Roberts Encounter for other [address] M, LO, LANIE contraceptive [place], [place] [address] management (Primary Dx) [address] [place] [address] Social History Tobacco Use Types Packs/Day Years [...] or relatives? How often do you attend spiritism or Not asked faith services? Do you belong to any clubs or Not asked organizations such as spiritism groups, unions, fraternal or athletic groups, or [...] encounter Progress Notes Kelle Ayala RN - 11/23/2018 4:49 PM CDT PG test needed prior to restarting the Depo. documented in this encounter Plan of Treatment Not on filedocumented as of this encounter Results , urine (11/26/2018 4:09 PM CDT) athologist Signature NEGATIVE Negative 11/26/2018 [facility] Test, Urine 4:43 PM CDT GWYNEDD Specimen Anatomical Collection Method Collection Time Receive d Time (Source) Location / / Volume Laterality Urine (Urine, 11/26/2018 4:09 PM 11/27/19 19 4:27 Clean Catch) CDT PM CDT Alia Roberts APRN, CNP LAB URINE ORDERABLES Performing Organization Address City/State/ZIP Code Phon e Number [facility] GERONIMO ORTIZ [address] [place] [id number] documented in this encounter Visit Diagnoses Diagnosis Encounter for other contraceptive manage ment - Primary documented in this encounter Care Teams Global Account Executive Relationship Specialty Start Date End Date Alia Roberts APRN, LANIE PCP - General 11/21/17 12/23/19 [address] [facility] [place] [address] documented as of this encounter
--- OUTSIDE RECORDS SUMMARY | 2022-03-16 14:57 | XMS_ITS | Encounter Summary ---
:1980 Author Organization [facility] Address [address] [place] [address] Care Team Providers Name Role Phone Alia Roberts WEAPONS OFFICER NAVAL ACTIVITY, FLAG SIGNALMAN Primary Care Provider [phone] Reason for Visit Reason Comments Med Refill Encounter Details Date Type Department Care Team Description 10/12/2018 Refill [place] Alia Roberts, Intractable migraine [address] LANIE BLANCHARD with aura without [place], [place] [address] status migrainosus [phone] [place], [place] [address] (Primary Dx) Social History Tobacco Use Types [...] or relatives? How often do you attend mosque or Not asked denominational services? Do you belong to any clubs or Not asked organizations such as mosque groups, unions, fraternal or athletic groups, or [...] this encounter Miscellaneous Notes Telephone Encounter - Marlyn Mccartney MA - 10/12/2018 1:57 PM CDT No she would like it to be 2 times a day Telephone Encounter - Alia Roberts APRN, LANIE - 10/12/2018 1:47 PM CDT Does she want to read as 3/day yet? Or 2/day? Telephone Encounter - Marlyn Mccartney MA - 10/12/2018 1:27 PM CDT Patient requested a refill on her medication but Family [facility] does not have any refills. Patient states she had 3 a day but now only taking 2 a day. Please advise. Patient needs a refill today. Telephone Encounter - Yanira Ken - 10/12/2018 1:10 PM CDT Pt called stating she only has two pilld oif the Topiramate left. Pt said CF Family [facility] has a question on the quantity. Please call Pt at [phone] to advise. documented in this encounter Plan of Treatment Not on filedocumented as of this encounter Visit Diagnoses Diagnosis Intractable migraine with aura without s tatus migrainosus - Primary documented in this encounter Care Teams Degreaser Relationship Specialty Start Date End Date Alia Roberts, WEAPONS OFFICER NAVAL ACTIVITY, FLAG SIGNALMAN PCP - General 11/21/17 12/23/19 100 [place] [address] documented as of this encounter
--- OUTSIDE RECORDS SUMMARY | 2022-03-16 14:57 | XMS_ITS | Encounter Summary ---
:1980 Author Organization [facility] Address [address] [place] [address] Care Team Providers Name Role Phone Alia Roberts TUNA PURSE SEINER, MARKETING COMMUNICATIONS MANAGER Primary Care Provider [phone] Reason for Visit Reason Comments Med Refill Encounter Details Date Type Department Care Team Description 01/14/2019 Refill [place] Alia Roberts, Vitamin deficiency [address] TUNA PURSE SEINER, LANIE [place], [place] [address] [facility] [address] [phone] [place], [place] [address] Social History Tobacco Use [...] or relatives? How often do you attend yazidism or Not asked presybeterian services? Do you belong to any clubs or Not asked organizations such as yazidism groups, unions, fraternal or athletic groups, or [...] Telephone Encounter - Kelle Ayala RN - 01/16/2019 1:43 PM CDT Please advise. Telephone Encounter - Cyndi Miles LPN - 01/16/2019 1:15 PM CDT Last visit in Provider Department: 11/23/2018 Vitamin D 1000 international units daily in the summer, then increase to 2000 international units Upcoming appointment with Provider: none Last Rx: 10/29/2018 # 8, 0 refills discontinued on 11/17/2018 Requested Prescriptions Pending Prescriptions Disp Refills ??? ergocalciferol (VITAMIN D2) 18359 units capsule [Pharmacy Med Name: VITAMIN D- ERGOCALCIFEROL 50,000 CAPS] 8 capsule 0 Sig: TAKE 1 CAPSULE (50,000 UNITS TOTAL) BY MOUTH ONCE A WEEK Labs: Component Latest Ref Rng & Units 10/26/2018 Vitamin D, Total ng/mL 24.7 (A) Please review and advise pharmacy on refill request. Thank you documented in this encounter Plan of Treatment Not on filedocumented as of this encounter Visit Diagnoses Diagnosis Vitamin deficiency Unspecified vitamin deficiency documented in this encounter Care Teams Boat Rigger Relationship Specialty Start Date End Date Roberts, Alia M, TUNA PURSE SEINER, MARKETING COMMUNICATIONS MANAGER PCP - General 11/21/17 12/23/19 100 [facility] [place] [address] documented as of this encounter
--- OUTSIDE RECORDS SUMMARY | 2022-03-16 14:58 | XMS_ITS | Encounter Summary ---
:1980 Author Organization [facility] Address [address] [place] [address] Care Team Providers Name Role Phone Alia Roberts PRODUCT SAFETY CONSULTANT, SENIOR FOREMAN Primary Care Provider Encounter Details Date Type Department Care Team Description 06/18/2018 Telephone [place] Alia Roberts, [address] PRODUCT SAFETY CONSULTANT, SENIOR FOREMAN [place], [place] [address] [address] [facility] [address] [phone] [place], [place] [address] Social History Tobacco Use [...] do you attend rastafarian or Not asked gnosticist services? Do you [...] Telephone Encounter - Becki Lane LPN - 06/18/2018 9:46 AM CST Detailed message felt. ERSHIP SALES MANAGER Telephone Encounter - Alia Roberts APRN, CNP - 06/18/2018 9:34 AM MEMBERSHIP SALES MANAGER She should call ENT, as she certainly has had a difficult time with her sinuses. Thanks, Alonso ERSHIP SALES MANAGER Telephone Encounter - Becki Lane LPN - 06/18/2018 8:42 AM CST Dulce is wondering if if she should be going back to the sinus doctor (Case Roa)? [facility] put her on Cefnir for a possible sinus infection. She has had the symptoms for about a week now. They believe that she probably has Influenza B as well but did not test her. ERSHIP SALES MANAGER documented in this encounter Plan of Treatment Not on filedocumented as of this encounter Visit Diagnoses Not on filedocumented in this encounter Care Teams Fractionating Still Operator Relationship Specialty Start Date End Date Alia Roberts APRN, SENIOR FOREMAN PCP - General 11/21/17 12/23/[address] [place], [place] [address], [place] [address] documented as of this encounter
--- OUTSIDE RECORDS SUMMARY | 2022-03-16 14:58 | XMS_ITS | Encounter Summary ---
:1980 Author Organization [facility] Address [address] [place] [address] Care Team Providers Name Role Phone Alia Roberts APRN, CAN FILLING MACHINE OPERATOR Primary Care Provider [phone] Encounter Details Date Type Department Care Team Description 06/14/2018 Lab [place] Pre-employment health [address] [place] [address] Social History Tobacco Use Types Packs/Day Years [...] or relatives? How often do you attend adventist or Not asked 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 Do you belong to any clubs or Not asked organizations such as adventist groups, unions, fraternal or athletic groups, or [...] as of this encounter Visit Diagnoses Diagnosis Pre-employment health screening examinat ion Health examination of defined subpopulat ion documented in this encounter Care Teams Tractor Mechanic Relationship Specialty Start Date End Date Alia Roberts, FRACTIONATING STILL OPERATOR, CAN FILLING MACHINE OPERATOR PCP - General 11/21/17 12/23/19 100 [facility] [place] [address] documented as of this encounter
--- OUTSIDE RECORDS SUMMARY | 2022-03-16 14:58 | XMS_ITS | Encounter Summary ---
:[address] [facility] Address [address] [place] [address] Care Team Providers Name Role Phone Alia Roberts GUEST RELATIONS COORDINATOR, STOKER MECHANIC Primary Care Provider [phone] Encounter Details Date Type Department Care Team Description 04/30/2018 Orders Only [place] Alia Roberts, Foot pain, left [address] GUEST RELATIONS COORDINATOR, LANIE (Primary Dx) [place], [place] [address] [address] [place] [address] Social History Tobacco Use Types Packs/Day Years [...] or relatives? How often do you attend jain or Not asked evangelical services? Do you belong to any clubs or Not asked organizations such as jain groups, unions, fraternal or athletic groups, or [...] or getting things needed for daily living? Sex Assigned at Date Recorded Not on file documented as of this encounter Progress Notes Alia Roberts APRN, CNP - 04/30/2018 5:35 PM CST The patient had her children in the clinical setting and was having left foot pain along the first MTP joint which historically has felt better with the Medrol Dosepak and is requesting one. This is renewed for the patient today. D AND DEPLOYMENT ENGINEER documented in this encounter Plan of Treatment Not on filedocumented as of this encounter Visit Diagnoses Diagnosis Foot pain, left - Primary Pain in soft tissues of limb documented in this encounter Care Teams Brooch Maker Novelty Relationship Specialty Start Date End Date Alia Roberts APRN, LANIE PCP - General 11/21/17 12/23/19 100 [place] [address] documented as of this encounter
--- OUTSIDE RECORDS SUMMARY | 2022-03-16 14:58 | XMS_ITS | Encounter Summary ---
:1980 Author Organization [facility] Address [address] [place] [address] Care Team Providers Name Role Phone Alia Roberts POWERHOUSE HELPER, IMPORT/EXPORT SPECIALIST Primary Care Provider [phone] Reason for Visit Reason Onset Date Comments Med Refill 02/08/2018 Encounter Details Date Type Department Care Team Description 02/08/2018 Refill [place] Alia Roberts, Seasonal allergies [address] LANIE BLANCHARD (Primary Dx) [place], [place] [address] [address] [facility] [address] [phone] [place], [place] [address] Social History Tobacco Use Types Packs/Day Years Used Date Smoking Tobacco: Never Assessed Social Isolation Answer Date Recorded In a typical week, how many times do you More than three von es a week 07/20/2018 talk on the phone with family, friends, or neighbors? How often do you get together with friends More than three t imes a week 07/20/2018 or relatives? How often do you attend mosque or Not asked zoroastrian services? Do you belong to any clubs [...] Telephone Encounter - Marlyn Mccartney MA - 02/08/2018 10:10 AM CDT I have pended a medication refill for your review. documented in this encounter Plan of Treatment Not on filedocumented as of this encounter Visit Diagnoses Diagnosis Seasonal allergies - Primary Allergic rhinitis, cause unspecified documented in this encounter Care Teams Arbor Press Operator Relationship Specialty Start Date End Date Alia Roberts, POWERHOUSE HELPER, IMPORT/EXPORT SPECIALIST PCP - General 11/21/17 12/23/[address] [place] [address] [place] [address] documented as of this encounter
--- OUTSIDE RECORDS SUMMARY | 2022-03-16 14:58 | XMS_ITS | Encounter Summary ---
:1980 Author Organization [facility] Address [address] [place] [address] Care Team Providers Name Role Phone Alia Roberts FORESTRY AID TECHNICIAN, JIG BUILDER HELPER Primary Care Provider [phone] Reason for Visit Reason Comments Earache LEFT EAR Encounter Details Date Type Department Care Team Description 07/12/2018 Office Visit [place] Comfort Mishra, Otalgia of left ear [address] LO, LANIE (Primary Dx) [place], [place] [address] Social History Tobacco Use [...] or relatives? How often do you attend samaritan or Not asked scientologist services? Do you belong to any clubs or Not asked organizations such as samaritan groups, unions, fraternal or athletic groups, or [...] Sign Reading Time Taken Comments Blood Pressure 130/70 07/12/2018 2:32 PM CDT Pulse 102 07/12/2018 2:32 PM CDT Temperature 35.9 ??C (96.6 ??F) 07/12/2018 2:32 PM CDT Respiratory Rate 17 07/12/2018 2:32 PM CDT Oxygen Saturation 98% 07/12/2018 2:32 PM CDT Inhaled Oxygen Concentration - - Weight 89.7 kg (197 lb 12 oz) 07/12/2018 2:32 PM CDT Height 159 cm (5' 2.6) 07/12/2018 2:32 PM CDT Body Mass Index 35.48 07/12/2018 2:32 PM CDT documented in this encounter Progress Notes Comfort Mishra, VERÓNICA - 07/12/2018 2:20 PM CDT Estab Patient Visit Subjective Patient ID: Dulce Lei is a 38 y.o. female. Here with concerns about possible left ear infection. Symptoms started one week ago. Has had recurrent sinusitis and two previous sinus surgeries. Afebrile. Known seasonal allergies and symptoms are always worse at change of season. Slight headache as well today. Has bilateral maxillary sinus pressure. Denies sore throat or cough. Using sudafed daily for the past five days. Does not feel she has a sinus infection at this point but would like to have her left ear evaluated. Currently on Astelin nasalspray as well. Review of Systems Constitutional: Negative. HENT: Positive for congestion, ear pain and sinus pressure. Negative for sore throat and trouble swallowing. Eyes: Negative. Respiratory: Negative. Gastrointestinal: Negative. Genitourinary: Negative. Musculoskeletal: Negative. Neurological: Positive for headaches. Hematological: Negative. Psychiatric/Behavioral: Negative. Objective Physical Exam Constitutional: She is oriented to person, place, and time. She appears well-developed. HENT: Head: Normocephalic and atraumatic. Right Ear: External ear normal. Left Ear: External ear normal. Nose: Nose normal. Mouth/Throat: Oropharynx is clear and moist. Eyes: Pupils are equal, round, and reactive to light. Conjunctivae and EOM are normal. Neck: Normal range of motion. Cardiovascular: Normal rate and regular rhythm. Pulmonary/Chest: Effort normal and breath sounds normal. Musculoskeletal: Normal range of motion. Neurological: She is alert and oriented to person, place, and time. Skin: Skin is warm. Psychiatric: She has a normal mood and affect. Assessment/Plan Diagnoses and all orders for this visit: Otalgia of left ear Encouraged to continue with sudafed and ibuprofen for inflammation. No signs of sinusitis at this point. No need for antibiotics. Advised that she may call if symptoms worsen over the weekend and will write a prescription. Patient has verbalized understanding of the plan and is in agreement. documented in this encounter Plan of Treatment Not on filedocumented as of this encounter Visit Diagnoses Diagnosis Otalgia of left ear - Primary documented in this encounter Care Teams Hand Presser Relationship Specialty Start Date End Date Alia Roberts, FORESTRY AID TECHNICIAN, JIG BUILDER HELPER PCP - General 11/21/17 12/23/19 100 [place] [address] documented as of this encounter
--- OUTSIDE RECORDS SUMMARY | 2022-03-16 14:58 | XMS_ITS | Encounter Summary ---
:1980 Author Organization [facility] Address [address] [place] [address] Care Team Providers Name Role Phone Alia Roberts APRN, GARMENT ALTERATION EXAMINER Primary Care Provider [phone] Reason for Visit Reason Comments Sinusitis Encounter Details Date Type Department Care Team Description 04/20/2018 Office Visit [facility] [place] Alia Roberts Acute sinusitis, [address] M, LANIE BLANCHARD recurrence not [place], [place] [address] specified, [id number] [place] [address] unspecified location [phone] (Primary Dx) Social History Tobacco Use Types [...] do you attend baptism or Not asked sabianism services? Do you belong to any clubs [...] Sign Reading Time Taken Comments Blood Pressure 130/80 04/20/2018 9:17 AM PHOTO TECH Pulse 98 04/20/2018 9:17 AM PHOTO TECH Temperature 36.3 ??C (97.4 ??F) 04/20/2018 9:17 AM PHOTO TECH Respiratory Rate 16 04/20/2018 9:17 AM PHOTO TECH Oxygen Saturation 97% 04/20/2018 9:17 AM PHOTO TECH Inhaled Oxygen Concentration - - Weight 88.3 kg (194 lb 10.7 oz) 04/20/2018 9:17 AM PHOTO TECH Height 160 cm (5' 3) 04/20/2018 9:17 AM PHOTO TECH Body Mass Index 34.48 04/20/2018 9:17 AM PHOTO TECH documented in this encounter Patient Instructions Patient InstructionsChignacio Roberts APRN, CNP - 04/20/2018 9:20 AM PHOTO TECH Take antibiotic as directed Prednisone 20 mg twice daily x 5 days O TECH documented in this encounter Progress Notes Alia Roberts APRN, CNP - 04/20/2018 9:20 AM CST Estab Patient Visit Subjective Patient ID: Dulce Lei is a 37 y.o. female presenting for the following concerns. Chief Complaint Patient presents with ??? Sinusitis HPI: The patient is a pleasant 37-year-old female presenting ambulatory to the clinical setting today accompanied by her son. The patient reports she has a sinus infection. The patient reports her symptoms started about a week ago with nasal congestion, nasal drainage green in color, bilateral ear discomfort from the fluid, upper teeth pain primarily on the left side, maxillary sinus pressure, burning, primarily on the left side, and frontal sinus pressure. The patient reports typically her sinus infections are right sided, but this time her symptoms are predominately left sided. No fevers, but she has had chills, which is not necessarily new. The patient reports she almost made a dental appointment because of her teeth pain, but then realized it was her sinuses. The patient reports she has a cough which is not problematic, but rather clearing of the mucus in the back of her throat. No increased workof breathing. The patient reports her symptoms are waking her at night. The patient has been using the [place] pot, Astelin and Flonase nasal sprays. The patient had a significant sinus infection about the same time last year, confirmed with a sinus CT, and required snf antibiotics, which she would like to avoid. 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 The patient is a current everyday smoker, and understands the implications of smoking on her health. ROS: GENERAL: No fever, but she has had chills, which is not necessarily new. EARS: The patient reports she has bilaterally ear discomfort, and likely from fluid. NOSE: See HPI. The patient has had nasal congestion, nasal drainage green in color, for the past week. MOUTH/THROAT: The patient reports she is experiencing upper teeth pain bilaterally, greater on the left than the right. RESPIRATORY: See HPI. The patient has had a nonproblematic cough, which is more of a clearing of herthroat, without increased work of breathing. GASTROINTESTINAL: No nausea, vomiting, and/or diarrhea. EXPORT FREIGHT MANAGER: The patient reports she has had a continual menstrual cycle for about 3 weeks now. She has a Nexplanon for control and is contemplating having a tubal ligation and removing the Nexplanon, which she feels is causing her dysfunctional uterine bleeding. NEUROLOGICAL: The patient has had headache discomfort, frontal and maxillary sinus areas, greater onthe left then the right. The following portions of the patient's chart were reviewed in this encounter and updated as appropriate: Tobacco Allergies Meds Problems Med Hx Surg Hx Fam Hx Soc Hx Objective Visit Vitals BP 130/80 (BP Location: Left arm, Patient Position: Sitting) Pulse 98 Temp 36.3 ??C (97.4 ??F) (Temporal) Resp 16 Ht 1.6 m (5' 3) Wt 88.3 kg (194 lb 10.7 oz) SpO2 97% BMI 34.48 kg/m?? Smoking Status Current Every Day Smoker BSA 1.98 m?? GENERAL: The patient is alert, orientated, pale in appearance, and in no apparent distress. HEENT: Head normocephalic. Left sided facial swelling over the left maxillary sinus area, which is subtle, and without erythema. Eyes - pupils round and reactive to light. Ears - normal canals, normal,pearly johnson TMs bilaterally. Throat - normal oropharynx. Uvula rises midline. No erythema. Neck - Supple. No cervical or posterior lymphadenopathy. CARDIOVASCULAR: Normal heart rate and rhythm. No murmur. RESPIRATORY: Lungs are clear, bilaterally. No wheezing. MUSCULOSKELETAL: The patient moves freely about the room. DIAGNOSTICS: None. Assessment/Plan Dulce was seen today for sinusitis. Diagnoses and all orders for this visit: Acute sinusitis, recurrence not specified, unspecified location (Primary) - azithromycin (ZITHROMAX) 250 MG tablet; Take 2 tabs (500 mg) by mouth today, than 1 daily for 4 days. - predniSONE (DELTASONE) 20 MG tablet; Take 2 tablets (40 mg total) by mouth 1 (one) time each day for 5 days Discussed the plan of care with the patient. The patient reports historically she is prescribed 2 Z-Paks to overcome her sinus infections, the insurance company will not cover the second 1, but she is willing to pay out of pocket to avoid remote mortgage underwriter antibiotic therapy. The patient will continue the Flonase and Astelin spray. The patient will take the prednisone and understands she cannot take Advil and/or Aleve concurrently with prednisone. If her symptoms persist and/or worsen, she agrees to contactme. The patient agrees and understands this plan of care. Alia Roberts APRN, GARMENT ALTERATION EXAMINER O TECH documented in this encounter Plan of Treatment Not on filedocumented as of this encounter Visit Diagnoses Diagnosis Acute sinusitis, recurrence not specifie d, unspecified location - Primary documented in this encounter Care Teams Dethistler Operator Relationship Specialty Start Date End Date Alia Roberts, HIM CODER, GARMENT ALTERATION EXAMINER PCP - General 11/21/17 12/23/19 100 [facility] [place] [address] documented as of this encounter
--- OUTSIDE RECORDS SUMMARY | 2022-03-16 14:58 | XMS_ITS | Clinical Summary ---
:1980 Author Organization [facility] Address [address] [place] [address] Care Team Providers Name Role Phone Elsewhere, Pcp Primary Care Provider Unavailable Source Comments Patient records contain information from all sites at [facility]. For routine questions regarding patient records, call [phone] during business hours, M-F 8:00 AM - 5:00 PM Central Time. Record requests for emergency care only can be directed to [phone] at any time.[facility] Allergies Active Allergy Reactions Severity Noted Date Comments Amoxicillin-Pot Clavulanate GI intolerance Medium 01/24/2007 Ciprofloxacin GI intolerance Medium 01/24/2007 Nausea & Vom iting Silicone Rash Medium 08/21/2010 Medications Medication Sig Dispensed Refills Start Date End Date Status acetaminophen Take 650 mg by 0 A ctive (TYLENOL) 325 mg mouth every 4 tablet (four) hours as needed for pain. docusate sodium 0 06/23/2021 Act delicia (COLACE) 100 mg capsule fluticasone Administer 2 0 Activ e propionate (FLONASE) sprays into each 50 mcg/actuation nostril daily. nasal spray cholecalciferol, Take 25 mcg by 0 Active vitamin D3, mouth daily. (cholecalciferol) 25 mcg (1,000 Unit) tablet olopatadine (PATANOL) INSTILL 1 DROP IN 15 mL 3 12/14/2021 12/14/2022 Active 0.1 % ophthalmic EACH EYE TWO solution TIMES A DAY Additional Information Patient taking differently: 1 drop both eyes 2 times daily, Reported on 03/06/2022 cetirizine (ZyrTEC) 10 Take 1 tablet (10 mg 90 tablet 3 2021 Active mg tablet total) by mouth daily. nicotine polacrilex CHEW 1 PIECE OF GUM 110 each 3 08/23/2021 08/23/2022 Active (NICORETTE) 4 mg gum EVERY 1 TO 2 HOURS NEEDED OR DIRECTED FOR NICOTINE WITHDRAWAL SYMPTOMS nicotine (NICODERM CQ) APPLY 1 PATCH TO THE 14 patch 0 202108/23/2022 Active 21 mg/24 hr patch SKIN DAILY Additional Information Patient taking differently: 1 patch transdermal Daily, Reported on 03/06/2022 magnesium oxide (MAG-OX) TAKE 1 TABLET BY 120 tablet 2 022 07/19/2022 Active 400 mg (241.3 mg MOUTH DAILY magnesium) tablet Additional Information Patient taking differently: 400 mg oral Daily before breakfast, Reported on 03/06/2022 ascorbic acid, vitamin C, TAKE 1 TABLET BY MOUTH 100 tablet 3 11/19/2020 Active (VITAMIN C) 500 mg tablet DAILY Additional Information Patient taking differently: 500 mg oral Daily, Reported on 03/06/2022 fluticasone propionate USE 1 TO 2 SPRAYS IN 16 g 3 202112/14/2022 Active (FLONASE) 50 mcg/actuation EACH NOSTRIL DAILY nasal spray Additional Information Patient taking differently: 2 spray each nostril Daily, Reported on 03/06/2022 PARoxetine (PAXIL) 10 mg TAKE 1 TABLET BY 90 tablet 0 11/09/19 22 11/08/2022 Active tablet MOUTH DAILY Additional Information Patient taking differently: 10 mg oral Daily, Reported on 03/06/2022 topiramate (TOPAMAX) 50 TAKE 1 TABLET BY 90 tablet 3 2 10/04/2022 Active mg tablet MOUTH DAILY Additional Information Patient taking differently: 50 mg oral Daily, Reported on 03/06/2022 hydrocortisone INSERT 1 SUPPOSITORY 30 each 0 07/19/202107/2022 Active (ANUSOL-HC) 25 mg RECTALLY DAILY suppository DULoxetine (CYMBALTA) TAKE 1 CAPSULE BY 90 capsule 3 2 07/19/[address] capsule MOUTH DAILY Additional Information Patient taking differently: 20 mg oral Daily, Reported on 03/06/2022 ibuprofen TAKE 1 TABLET 30 tablet 0 06/23/2021 06/23/2022 Acti ve (ADVIL,MOTRIN) 600 BY MOUTH mg tablet EVERY SIX HOURS NEEDED hydrOXYzine TAKE 1 40 capsule 5 04/28/2021 04/28/2022 Activ e (VISTARIL) 25 mg CAPSULE BY capsule MOUTH EVERY EIGHT HOURS NEEDED oxyCODONE TAKE 1 TABLET 20 tablet 0 06/22/2021 06/22/2022 Acti ve (ROXICODONE) 5 mg BY MOUTH immediate release EVERY SIX tablet HOURS NEEDED; MAXIMUM DAILY DOSE OF 4 TABLETS PER 24 HOURS guaiFENesin 600 mg orally 60 tablet 1 01/25/2022 Act delicia (MUCINEX) 600 mg 12 every 12 hr tablet hours for 30 days ketorolac (TORADOL) Take 1 tablet 14 tablet 6 02/17/2022 Active 10 mg tablet (10 mg total) by mouth every 4 to 6 hours as needed for pain for 5 days. Do not exceed 4 tablets per day cetirizine (ZyrTEC) Take 10 mg by 0 11/19/202003/06 Discontinued 10 mg tablet mouth daily. (Dup licate order) magnesium oxide 0 07/19/2021 03/06/2022 Di scontinued (MAG-OX) 400 mg (Dup licate order) (241.3 mg magnesium) tablet DULoxetine 20 mg. 0 07/19/2021 03/06/2022 Discont inued (CYMBALTA) [address] (Duplicate order) capsule cetirizine (ZyrTEC) TAKE 1 TABLET 90 tablet 3 12/21/202103/06 Discontinued 10 mg tablet BY MOUTH (Duplic ate order) DAILY famotidine (PEPCID) TAKE 1 TABLET 60 tablet 0 06/14/202101/05 Discontinued 10 mg tablet BY MOUTH TWO TIMES A DAY ferrous sulfate 324 TAKE 1 TABLET 100 tablet 0 04/12/202112/17 Discontinued mg (65 mg iron) DR BY MOUTH tablet DAILY labetaloL TAKE 2 120 tablet 0 06/25/2021 01/05/2022 Discont inued (NORMODYNE) 100 mg TABLETS BY tablet MOUTH TWO TIMES A DAY sertraline (ZOLOFT) TAKE 1 TABLET 7 tablet 0 03/12/202101/05 Discontinued 25 mg tablet BY MOUTH DAILY metoclopramide TAKE 1 TABLET 30 tablet 3 02/05/2021 01/05/2022 Discontinued (REGLAN) 10 mg BY MOUTH tablet THREE TIMES A DAY NEEDED azithromycin Take 2 6 tablet 0 01/25/2022 03/06/2022 Disco ntinued (ZITHROMAX) 250 mg tablets by (Therapy tablet mouth today complete d) (day 1), then take 1 tablet daily for 4 days (days 2-5) Active Problems Problem Noted Date Care And Lactating 06/28/2021 Preeclampsia Severe 06/28/2021 Shortness Of Breath 06/28/2021 Discomfort Chest 06/28/2021 Pap Smear Examination 07/23/2020 Overview: 01/17/2007: NIL 09/29/2009: LSIL 06/17/2010: NIL 11/11/2011: LISSETT 1. LSIL. 01/04/2012: LISSETT 1 on Colposcopy. 08/23/2012: ASCUS HPV positive. 04/29/2013: NIL 06/13/2014: ASCUS. HPV positive (16 and 18 negative) 07/10/2014: LISSETT 1 on Colposcopy. 07/03/2015: NIL. 07/03/2017: NIL HPV negative. 07/08/2020: NIL Intrauterine Device Status 07/23/2020 Overview: 11/03/2015: Mirena IUD inserted. Migraine With Aura Not Intractable Without Status Migr ainosus 11/02/2005 Overview: Formatting of this note might be differe nt from the original. Problem list name updated by automated p rocess. Provider to review Asthma Obesity Body Mass Index 30-39.9 Adult Resolved Problems Problem Noted Date Resolved Date Pain Ankle Right 12/05/2019 01/30/2020 Overview: Added automatically from request for darlene shukla [id number] Encounters Date Type Specialty Care Team Description 03/06/2022 Emergency Emergency Medicine Vaughn Lynch, Migra ine Headache C.N.P. (Primary Dx) 02/09/2022 Emergency Emergency Medicine Walter Merrill, Migrai ne Headache P.A.-C. (Primary Dx) 02/07/2022 Emergency Emergency Medicine Jose Melissa, Pain Teeth (Primary P.A.-C. Dx) 01/24/2022 Emergency Emergency Medicine Emilia Pelletier So re Throat (Primary R, M.D. Dx) 12/21/2021 Orders Only Pharmacy Alia Roberts C.N.P. 12/16/2021 Nurse Triage Family Medicine Tegan Mendez R.N. [facility] Information 12/14/2021 Orders Only Pharmacy Juan Carlos Cabrera P.A.-[place] from Last 3 Months Immunizations Name Administration Dates Next Due 4vHPV (discontinued) 03/17/2009 HepB (discontinued) adolescent/high 03/25/2014, 05/20/2005, 06/13/2003 risk infant Influenza TIV (IM) 01/24/2002 Influenza, Seasonal, Injectable 02/02/2012, 02/14/2006 Influenza, Unspecified 01/21/2014, 01/30/2013, 02/08/2011, 12/29/2008 PPSV23 08/26/2010 SARS-COV-2 (COVID-19) - PFIZER (12 05/03/2021 years or older) Td (Adult), adsorbed 06/13/2003 Tdap 12/05/2013, 06/13/2013, 08/26/2010 influenza vaccine quad 01/23/2020, 04/04/2019, 01/24/2018, (FLUZONE/FLUARIX) (6 months and 01/11/2017, 01/28/2016 older)(PF) Family History Medical History Relation Name Comments MEDRANO - Headache Father Hypertension Father Diabetes Mother Liver Mother Liver failure Asthma Sister Anesthesia problems Neg Hx Cataracts Neg Hx Glaucoma Neg Hx Macular degeneration Neg Hx Relation Name Status Comments Father Mother Sister Social History Tobacco Use Types Packs/Day Years Used Date Smoking Tobacco: Every Day Cigarettes 0.5 S tarted: 2007 Smokeless Tobacco: Never Tobacco Cessation: Ready to Quit: No; Co unseling Given: Yes Comments: 1/2 or less pack/d, trying to quit Alcohol Use Standard Drinks/Week Comments Not Currently 0 (1 standard drink = 0.6 oz pure alcoho l) occasional Alcohol Habits Answer Date Recorded How often do you have a drink containing alcohol? Never 11/09/2020 How many drinks containing alcohol do you have on a typical day 1 or 2 11/17/2019 when you are drinking? How often do you have six or more drinks on one occasion? Ne airam 11/17/2019 Social Isolation Answer Date Recorded In a typical week, how many times do you More than three von es a week 11/09/2020 talk on the phone with family, friends, or neighbors? How often do you get together with friends Twice a week 11/09/2020 or relatives? How often do you attend caodaism or More than 4 times per year 11/09/2020 episcopalian services? Do you belong to any clubs or No 11/09/2020 organizations such as caodaism groups, unions, fraternal or athletic groups, or school groups? How often do you attend meetings of the Never 11/09/2020 clubs or organizations you belong to? Are you now , , , Living with partner 11/09/2020 , never or living with a partner? Physical Activity Answer Date Recorded On average, how many days per week do you engage in moderate 3 days 11/09/2020 to strenuous exercise (like walking fast, running, jogging, dancing, swimming, biking, or other activities that cause a light or heavy sweat)? On average, how many minutes do you engage in exercise at th is 150+ min 11/09/2020 level? Stress Answer Date Recorded Do you feel stress - tense, restless, nervous, or To some ex tent 11/09/2020 anxious, or unable to sleep at night because your mind is troubled all the time - these days? Financial Resource Strain Answer Date Recorded How hard is it for you to pay for the very basics like Somew hat hard 11/09/2020 food, housing, medical care, and heating? Intimate Partner Violence Answer Date Recorded Within the last year, have you been afraid of your partner o r No 11/09/2020 ex-partner? Within the last year, have you been humiliated or emotionall y No 11/09/2020 abused in other ways by your partner or ex-partner? Within the last year, have you been kicked, hit, slapped, or No 11/09/2020 otherwise physically hurt by your partner or ex-partner? Within the last year, have you been raped or forced to have any No 11/09/2020 kind of sexual activity by your partner or ex-partner? Food Insecurity Answer Date Recorded Within the past 12 months, you worried that your food would Never true 11/09/2020 run out before you got money to buy more. Within the past 12 months, the food you bought just didn't N ever true 11/09/2020 last and you didn't have money to get more. Transportation Needs Answer Date Recorded In the past 12 months, has lack of transportation kept you f rom No 11/09/2020 medical appointments or from getting medications? In the past 12 months, has lack of transportation kept you f rom No 11/09/2020 meetings, work, or getting things needed for daily living? Housing Stability Answer Date Recorded In the last 12 months, was there a time when you were not ab le Yes 11/09/2020 to pay the mortgage or rent on time? In the last 12 months, how many places have you lived? 1 11/09/2020 In the last 12 months, was there a time when you did not hav e a No 11/09/[address] or slept in a chcf (including now)? Education Answer Date Recorded What is the highest level of school you have Some college, n o degree 11/17/2019 completed or the highest degree you have received? Sex Assigned at Date Recorded Not on file Last Filed Vital Signs Vital Sign Reading Time Taken Comments Blood Pressure 95/52 03/06/2022 8:24 PM [employer]OMO[employer]ISER Pulse 84 03/06/2022 8:24 PM [employer] Temperature 36.6 ??C (97.9 ??F) 03/06/2022 6:46 PM [employer]OM[employer]IS[employer] Respiratory Rate 16 03/06/2022 8:24 PM AUTOMOBILE DAMAGE APPR[employer]ISER Oxygen Saturation 99% 03/06/2022 8:24 PM [employer] Inhaled Oxygen Concentration - - Weight 100 kg (221 lb 5.5 oz) 03/06/2022 6:47 PM [employer] Height 157.5 cm (5' 2) 12/06/2020 4:44 PM CDT Body Mass Index 40.48 12/06/2020 4:44 PM CDT Plan of Treatment Health Maintenance Due Date Last Done Comments Pneumococcal vaccine (0-64 years) 08/27/2011 08/26/2010 (2 - PCV) Asthma Action Plan 12/06/2019 Asthma Control Test Questionnaire 12/24/2020 12/25/2019, Depression Screening (Annual 04/17/2021 PHQ-2) COVID-19 Vaccine (3 - Booster for 06/28/2021 05/03/2021, Pfizer series) Office Visit for Blood Pressure 01/20/2022 01/20/2021 Check / Re-check Cervical Cancer Screening 11/19/2024 11/19/2021, 07/08/2020 , 06/13/2014, Additional history exists Lipid (Cholesterol) Screening 07/08/2025 07/08/2020, 2013 DTaP,Tdap,and Td Vaccines (5 - Td 04/19/2031 04/19/2021, , or Tdap) 06/13/2013, Additional history exists Hepatitis B Vaccines Completed 03/25/2014, 05/20/2005, 06/13/2003 HIV Screening Completed 07/08/2020 Hepatitis C Screening Completed 07/08/2020 Influenza Vaccine Completed 02/17/2022, 02/09/2021, 01/23/2020, Additional history exists Procedures Procedure Name Priority Date/Time Associated Diagnosis Comme nts EXTM HOME SARS Routine 12/15/2021 10:00 PM Result s for this CORONAVIRUS-2 CDT procedure are in (COVID-19) ANTIGEN, the resu lts V section. from Last 3 Months Results (ABNORMAL) EXT Home SARS Coronavirus-2 (COVID-19) Antigen, Varies (12/15/2021 10:00 PM CDT) [facility] gist Method Time Signature EXT Home Presumptive Presumptive OTHER SARS-CoV-2 Positive (A) Negative (SPECIFY IN Antigen CHEF BROILER OR FRY) Specimen (Source) Anatomical Collection Method Collection Time Re ceived Time Location / / Volume Laterality Swab 12/15/2021 10:00 PM CDT Historical Provider LAB MICROBIOLOGY - GENERAL O RDERABLES Performing Organization Address City/State/ZIP Code Phon e Number OTHER (SPECIFY IN CHEF BROILER OR FRY) OTHER (SPECIFY IN CHEF BROILER OR FRY) N/A from Last 3 Months Insurance Payer Benefit Plan / Subscriber ID Effective Phone Address T ype Group Dates [facility] [id number] 2018-Prese [address] Medicaid HMO [place] CARE [facility] [address] [place] [id number] Care Teams Acting Section Chief Relationship Specialty Start Date End Date Elsewhere, Pcp PCP - General Internal Medicine 08/31/21
--- OUTSIDE RECORDS SUMMARY | 2022-03-16 14:58 | XMS_ITS | Encounter Summary ---
:1980 Author Organization [facility] Address [address] [place] [address] Care Team Providers Name Role Phone Alia Roberts APRN, RESIDENT CARE MANAGER Primary Care Provider [phone] Encounter Details Date Type Department Care Team Description 01/24/2018 Immunization [facility] [address] [place], [place] [address] Social History Tobacco Use [...] or relatives? How often do you attend scientologist or Not asked anglican services? Do you belong to any clubs or Not asked organizations such as scientologist groups, unions, fraternal or athletic groups, or [...] on filedocumented in this encounter Care Teams Herb Counselor Relationship Specialty Start Date End Date Alia Roberts, ELECTRICAL PARTS RECONDITIONER, RESIDENT CARE MANAGER PCP - General 11/21/17 12/23/19 [address] [facility] [place] [address] documented as of this encounter
--- OUTSIDE RECORDS SUMMARY | 2022-03-16 14:58 | XMS_ITS | Encounter Summary ---
:1980 Author Organization [facility] Address [address] [place] [address] Care Team Providers Name Role Phone Alia Roberts NEWS ANCHOR, WOOD TYPE FINISHER Primary Care Provider [phone] Encounter Details Date Type Department Care Team Description 05/22/2018 Abstract [facility] Alia Roberts, LO, [address] [place] [address] [place] [address] AVE [phone] [place] [id number] Social History Tobacco Use Types Packs/Day [...] or relatives? How often do you attend jew or Not asked orthodoxy services? Do you belong to any clubs or Not asked organizations such as jew groups, unions, fraternal or athletic groups, or [...] on filedocumented in this encounter Care Teams Poleyard Supervisor Relationship Specialty Start Date End Date Alia Roberts APRN, WOOD TYPE FINISHER PCP - General 11/21/17 12/23/[address] [place] [address] [place] [id number] documented as of this encounter
--- OUTSIDE RECORDS SUMMARY | 2022-03-16 14:58 | XMS_ITS | Encounter Summary ---
:[address] [facility] Address [address] [place] [address] Care Team Providers Name Role Phone Alia Roberts CASHIER GAMBLING, VP AD PRODUCTS AND PLANNING Primary Care Provider [phone] Encounter Details Date Type Department Care Team Description 04/25/2018 Orders Only [place] Alia Roberts, Acute sinusitis, [address] CASHIER GAMBLING, LANIE recurrence not [place], [place] [address] specified, [id number] [place] [address] unspecified location [phone] Social History Tobacco Use Types Packs/Day Years [...] or relatives? How often do you attend buddhism or Not asked samaritan services? Do you belong to any clubs or Not asked organizations such as buddhism groups, unions, fraternal or athletic groups, or [...] Progress Notes Alia Roberts APRN, LANIE - 04/25/2018 4:24 PM CST Please let the patient know I have sent in for a second Zpak for her. Thanks, Alonso FACER Kelle Ayala RN - 04/25/2018 4:24 PM CST Patient informed. FACER documented in this encounter Plan of Treatment Not on filedocumented as of this encounter Visit Diagnoses Diagnosis Acute sinusitis, recurrence not specifie d, unspecified location documented in this encounter Care Teams Press Operator Carbon Products Relationship Specialty Start Date End Date Alia Roberts APRN, VP AD PRODUCTS AND PLANNING PCP - General 11/21/17 12/23/19 [address] [place] [address] documented as of this encounter
--- OUTSIDE RECORDS SUMMARY | 2022-03-16 14:58 | XMS_ITS | Encounter Summary ---
:1980 Author Organization Address [address] [place] [address] Care Team Providers Name Role Phone Alia Roberts QUESTIONED DOCUMENTS EXAMINER, SQL SERVER DBA DEVELOPER Primary Care Provider [phone] Encounter Details Date Type Department Care Team Description 04/18/2018 Orders Only [facility] Alia Roberts, [address] [facility] QUESTIONED DOCUMENTS EXAMINER, SQL [place] [address] [place] [address] AVE [phone] [place] [address] Social History Tobacco Use Types Packs/Day Years Used Date Smoking Tobacco: Every Day Alcohol Use Standard Drinks/Week Comments Yes 0 [...] or relatives? How often do you attend restoration or Not asked buddhist services? Do you belong to any clubs or Not asked organizations such as restoration groups, unions, fraternal or athletic groups, or [...] on filedocumented in this encounter Care Teams Assistant Teacher Primary Relationship Specialty Start Date End Date Alia Roberts APRN, SQL SERVER DBA DEVELOPER PCP - General 11/21/17 12/23/[address] [place] [address] [place] [id number] documented as of this encounter
--- OUTSIDE RECORDS SUMMARY | 2022-03-16 14:59 | XMS_ITS | Encounter Summary ---
:1980 Author Organization [facility] Address [address] [place] [address] Care Team Providers Name Role Phone Unavailable Primary Care Provider Unavailable Encounter Details Date Type Department Care Team Description 07/21/2021 Orders Only Pharmacy Prior Auth Michelle Dos Santos [phone] Social History Tobacco Use Types Packs/Day Years Used Date Smoking Tobacco: Every Day Cigarettes 0.5 S tarted: 2007 Smokeless Tobacco: Never Comments: 1/2 or less pack/d, trying to [...] or relatives? How often do you attend worship or More than 4 times per year 11/09/2020 judaism services? Do you belong to any clubs or No 11/09/2020 organizations such as worship groups, unions, fraternal or athletic groups, or [...] minutes do you engage in exercise at is 150+ min 11/09/2020 level? Stress Answer [...] place to sleep or slept in a skilled nursing (including now)? Education Answer Date Recorded What is the highest level of school you have Some college, n o degree 11/17/2019 completed or the highest degree you have received? Sex Assigned at Date Recorded Not on file documented as of this encounter Plan of Treatment Not on filedocumented as of this encounter Visit Diagnoses Not on filedocumented in this encounter Additional Health Concerns Assessment Noted Time PHQ-9 Depression Total Score: 17 07/13/2020 3:09 PM CD T documented as of this encounter
--- OUTSIDE RECORDS SUMMARY | 2022-03-16 14:59 | XMS_ITS | Encounter Summary ---
:1980 Author Organization [facility] Address [address] [place] [address] Care Team Providers Name Role Phone Elsewhere, Pcp Primary Care Provider Unavailable Encounter Details Date Type Department Care Team Description 07/23/2021 Orders Only [facility] Col courtney Merrill, P.ALashawn-Edward. [address] [place] [id number] [phone] Social History Tobacco Use Types Packs/Day Years [...] or relatives? How often do you attend advent or More than 4 times per year 11/09/2020 catholic services? Do you belong to any clubs or No 11/09/2020 organizations such as advent groups, unions, fraternal or athletic groups, or [...] place to sleep or slept in a nursing home (including now)? Education Answer Date Recorded What is the highest level of school you have Some college, n o degree 11/17/2019 completed or the highest degree you have received? Sex Assigned at Date Recorded Not on file documented as of this encounter Plan of Treatment Not on filedocumented as of this encounter Visit Diagnoses Not on filedocumented in this encounter Additional Health Concerns Infection Onset Date Last Indicated Resolved Time COVID19 11/16/2021 11/16/2021 12/06/2021 4:46 AM CDT COVID19 12/15/2021 12/15/2021 01/04/2022 4:45 AM CDT Assessment Noted Time PHQ-9 Depression Total Score: 17 07/13/2020 3:09 PM CD T documented as of this encounter Care Teams Radial Drill Operator Relationship Specialty Start Date End Date Elsewhere, Pcp PCP - General Internal Medicine 08/31/21 documented as of this encounter
--- OUTSIDE RECORDS SUMMARY | 2022-03-16 14:59 | XMS_ITS | Encounter Summary ---
:1980 Author Organization [facility] Address [address] [place] [address] Care Team Providers Name Role Phone Elsewhere, Pcp Primary Care Provider Unavailable Encounter Details Date Type Department Care Team Description 08/23/2021 Orders Only [facility] Alia Roberts, Jhonatan Purvis C.N.P. [address] [place]honatan Pur[place] [id number] [phone] Social History Tobacco Use Types Packs/Day Years [...] How often do you attend samaritan or More than 4 times per year 11/09/2020 roman catholic services? Do you belong to any clubs or No 11/09/2020 organizations such as samaritan groups, unions, fraternal [...] place to sleep or slept in a usp (including now)? Education Answer Date Recorded What [...] documented as of this encounter Care Teams Assistant Maintenance Manager Relationship Specialty Start Date End Date Elsewhere, Pcp PCP - General Internal Medicine 08/31/21 documented as of this encounter
--- OUTSIDE RECORDS SUMMARY | 2022-03-16 14:59 | XMS_ITS | Encounter Summary ---
:1980 Author Organization [facility] Address [address] [place] [address] Care Team Providers Name Role Phone Unavailable Primary Care Provider Unavailable Reason for Visit Reason Comments Hemorrhoids Normal vaginal delivery 4 we eks ago. PT. Has hemorrhoids. Was seen by pmd yesterday , prescribed a sup pository (not covered by insurance so she did not get it) Taking warm bath s, tucks, preperation H, ice, tylenol and ibuprofen with no relief. Lord s appt with specialist in [place] next week, states she cannot hannah d the pain. Encounter Details Date Type Department Care Team Description 07/20/2021 Emergency [facility] Walter Merrill He morrhoids External Department P.A.-C. Thrombosed (Primary [address] [place] [address] [address]) [place], [place] [address] [phone] (Wo rk) Social History Tobacco Use Types [...] or relatives? How often do you attend zoroastrianism or More than 4 times per year 11/09/2020 anabaptist services? Do you belong to any clubs or No 11/09/2020 organizations such as zoroastrianism groups, unions, fraternal or athletic groups, or [...] place to sleep or slept in a fci (including now)? Education Answer Date Recorded What is the highest level of school you have Some college, n o degree 11/17/2019 completed or the highest degree you have received? Sex Assigned at Date Recorded Not on file documented as of this encounter Last Filed Vital Signs Vital Sign Reading Time Taken Comments Blood Pressure 138/92 07/20/2021 9:00 PM CDT Pulse 81 07/20/2021 9:00 PM CDT Temperature 36.5 ??C (97.7 ??F) 07/20/2021 9:00 PM CDT Respiratory Rate 16 07/20/2021 9:00 PM CDT Oxygen Saturation 98% 07/20/2021 9:00 PM CDT Inhaled Oxygen Concentration - - Weight 91.8 kg (202 lb 6.1 oz) 07/20/2021 8:54 PM CDT Height - - Body Mass Index 37.02 12/06/2020 4:44 PM CDT documented in this encounter Discharge Instructions Discharge InstructionsWalter Merrill P.A.-C. - 07/20/2021 9:15 PM CDT See handout Calmoseptine cream 2-3 times daily Sitz bath 3 times daily Over the counter pain medications Keep your stool soft. Can add Miralax 1 cap daily and titrate up by .5 caps daily to keep stools soft. AttachmentsThe following attachments cannot be sent through Care Everywhere. Hemorrhoids Ydvg-fl-[id number] (Mexican)documented in this encounter Medications at Time of Discharge Medication Sig Dispensed Refills Start Date End Date acetaminophen (TYLENOL) Take 650 mg by mouth 0 325 mg tablet every 4 (four) hours as needed for pain. ascorbic acid, vitamin TAKE 1 TABLET BY 100 tablet 3 021 C, (VITAMIN C) 500 mg MOUTH DAILY tablet docusate sodium 0 06/23/2021 (COLACE) 100 mg capsule DULoxetine (CYMBALTA) TAKE 1 CAPSULE BY 90 capsule 3 022 07/19/[address] capsule MOUTH DAILY hydrocortisone INSERT 1 SUPPOSITORY 30 each 0 07/19/2021 07/19/2022 (ANUSOL-HC) 25 mg RECTALLY DAILY suppository hydrOXYzine (VISTARIL) TAKE 1 CAPSULE BY 40 capsule 5 202104/28/2022 25 mg capsule MOUTH EVERY EIGHT HOURS NEEDED ibuprofen TAKE 1 TABLET BY 30 tablet 0 06/23/2021 06/24/19 23 (ADVIL,MOTRIN) 600 mg MOUTH EVERY SIX tablet HOURS NEEDED magnesium oxide TAKE 1 TABLET BY 120 tablet 2 07/19/202107/2022 (MAG-OX) 400 mg (241.3 MOUTH DAILY mg magnesium) tablet oxyCODONE (ROXICODONE) TAKE 1 TABLET BY 20 tablet 0 022 06/22/2022 5 mg immediate release MOUTH EVERY SIX tablet HOURS NEEDED; MAXIMUM DAILY DOSE OF 4 TABLETS PER 24 HOURS cetirizine (ZyrTEC) 10 Take 10 mg by mouth 0 08/202003/06/2022 mg tablet daily. DULoxetine (CYMBALTA) Take 1 capsule (30 30 capsule 3 202008/31/[address] capsule mg total) by mouth daily. Dose reduction 10/22/20. labetaloL (NORMODYNE) Take 1 tablet (200 90 tablet 2 202108/31/2021 200 mg tablet mg total) by mouth every 8 (eight) hours. metroNIDAZOLE (FLAGYL) TAKE 1 TABLET BY 14 tablet 3 021 02/05/2022 500 mg tablet MOUTH TWO TIMES A DAY ondansetron (ZOFRAN) 4 TAKE 1 TABLET BY 30 tablet 2 021 11/19/2021 mg tablet MOUTH EVERY SIX HOURS NEEDED acetaminophen-codeine TAKE 1 TABLET BY 15 tablet 0 06/10/19 22 01/05/2022 (TYLENOL #3) 300-30 mg MOUTH EVERY FOUR TO per tablet SIX HOURS NEEDED FOR PAIN acetaminophen-codeine TAKE 1 TO 2 TABLETS 28 tablet 0 06/0201/05/2022 (TYLENOL #3) 300-30 mg BY MOUTH EVERY FOUR per tablet HOURS NEEDED FOR PAIN amoxicillin (AMOXIL) TAKE 1 CAPSULE BY 15 capsule 0 06/10/19 22 01/05/2022 500 mg capsule MOUTH THREE TIMES A DAY UNTIL GONE azithromycin TAKE 2 TABLETS BY 6 tablet 0 06/02/202112/17 (ZITHROMAX) 250 mg MOUTH ON DAY 1, THEN tablet TAKE 1 TABLET DAILY ON DAYS 2 THROUGH 5. TAKE MEDICATION FOR 5 DAYS. butalbital-acetaminophe Take 1 tablet by 0 202008/31/2021 n-caff (ESGIC) mouth every 6 (six) 50-325-40 mg per tablet hours as needed for headaches or migraine. butalbital-acetaminophe TAKE 1 TO 2 TABLETS 20 tablet 0 07/202001/05/2022 n-caff (ESGIC) BY MOUTH EVERY FOUR 50-325-40 mg per tablet HOURS; DO NOT EXCEED 6 TABLETS IN TWENTY-FOUR HOURS butalbital-acetaminophe TAKE 1 TO 2 TABLETS 30 tablet 0 01/05/2022 n-caff (ESGIC) BY MOUTH EVERY FOUR 50-325-40 mg per tablet HOURS NEEDED; DO NOT EXCEED 6 TABLETS IN TWENTY-FOUR HOURS cetirizine (ZyrTEC) 10 TAKE 1 TABLET BY 90 tablet 3 021 01/05/2022 mg tablet MOUTH DAILY clindamycin (CLEOCIN) TAKE 1 CAPSULE BY 28 capsule 0 022 01/05/2022 300 mg capsule MOUTH FOUR TIMES A DAY UNTIL GONE docusate sodium TAKE 1 CAPSULE BY 100 capsule 0 06/23/2021 0 01/05/2022 (COLACE) 100 mg capsule MOUTH TWO TIMES A DAY NEEDED docusate sodium TAKE 1 CAPSULE BY 100 capsule 1 04/12/2021 0 01/05/2022 (COLACE) 100 mg capsule MOUTH TWO TIMES A DAY NEEDED DULoxetine (CYMBALTA) 20 mg. 0 07/19/[address] capsule DULoxetine (CYMBALTA) TAKE 2 CAPSULES BY 180 capsule 0 02/1001/05/[address] capsule MOUTH DAILY famotidine (PEPCID) 10 TAKE 1 TABLET BY 60 tablet 0 022 01/05/2022 mg tablet MOUTH TWO TIMES A DAY ferrous sulfate 324 mg TAKE 1 TABLET BY 100 tablet 0 021 01/05/2022 (65 mg iron) DR tablet MOUTH DAILY fluticasone propionate USE 1 SPRAY IN EACH 16 g 3 04/07/202101/05/2022 (FLONASE) 50 NOSTRIL DAILY mcg/actuation nasal spray hydrocortisone Insert 1 application 28 g 0 07/20/2021 07/23/2021 (ANUSOL-HC) 2.5 % into the rectum 2 rectal cream (two) times a day. hydrOXYzine (VISTARIL) TAKE 1 TO 4 CAPSULES 12 capsule 0 10/202101/05/2022 25 mg capsule BY MOUTH DAILY labetaloL (NORMODYNE) TAKE 2 TABLETS BY 120 tablet 0 022 01/05/2022 100 mg tablet MOUTH TWO TIMES A DAY magnesium oxide 0 07/19/2021 (MAG-OX) 400 mg (241.3 mg magnesium) tablet magnesium oxide TAKE 1 TABLET BY 120 tablet 0 04/19/2021 (MAG-OX) 400 mg (241.3 MOUTH DAILY mg magnesium) tablet metoclopramide (REGLAN) TAKE 1 TABLET BY 30 tablet 3 202001/05/2022 10 mg tablet MOUTH THREE TIMES A DAY NEEDED PARoxetine (PAXIL) 10 TAKE ONE-HALF TABLET 15 tablet 0 09/1601/05/2022 mg tablet BY MOUTH DAILY penicillin V potassium TAKE 1 TABLET BY 40 tablet 0 022 01/05/2022 (VEETIDS) 500 mg tablet MOUTH FOUR TIMES A DAY UNTIL GONE sertraline (ZOLOFT) 25 TAKE 1 TABLET BY 7 tablet 0 01/05/2022 mg tablet MOUTH DAILY sertraline (ZOLOFT) 50 TAKE 1 TABLET BY 30 tablet 0 01/05/2022 mg tablet MOUTH DAILY documented as of this encounter ED Notes Walter Merrill P.A.-C. - 07/20/2021 9:26 PM CDT SUBJECTIVE CHIEF COMPLAINT/REASON FOR VISIT Hemorrhoids (Normal vaginal delivery 4 weeks ago. PT. Has hemorrhoids. Was seen by pmd yesterday , prescribed a suppository (not covered by insurance so she did not get it) Taking warm baths, tucks, preperation H, ice, tylenol and ibuprofen with no relief. Has appt with specialist in [facility], states she cannot stand the pain. ) HISTORY OF PRESENT ILLNESS Dulce Lei is a 41 y.o. female presents to [facility] requesting evaluation for hemorrhoids. Past medical history notable for but not limited to asthma, obesity, migraine, preeclampsia IUD. Normal vaginal delivery 4 weeks ago. Patient has had hemorrhoids sinceabout Monday of this past week for which she saw her primary care physician yesterday and noted that none of them were thrombosed at that point. Patient was referred to a specialist, likely colorectal surgery, next week sometime. Patient has been using hhlw-tad-pqcxiuk pain medications, warm water Epsom salt soaks 3 times daily, ytqq-tjt-nxvlepj preparation H. Patient prescribed steroid suppository but was not covered by insurance and therefore patient could not fill this. Since being seen patient is having increasing pain. No fevers. No abdominal pain. No significant bleeding noted, only a small amount of bright red blood on tissue paper. No other acute complaints or concerns. History provided by: Patient and medical records diplomatic interpreter needed/used: no REVIEW OF SYSTEMS Constitutional: Negative for chills and fever. HENT: Negative for ear pain and sore throat. Eyes: Negative for visual disturbance. Respiratory: Negative for shortness of breath. Cardiovascular: Negative for chest pain. Gastrointestinal: Positive for rectal pain. Negative for abdominal pain, blood in stool, nausea and vomiting. Genitourinary: Negative for dysuria and hematuria. Musculoskeletal: Patient denies any new or worsening joint/muscle pain Skin: Negative for rash. Neurological: Negative for dizziness, syncope and headaches. OBJECTIVE Initial Vitals Temperature Pulse Rate Heart Rate Resp Rate Blood Pressure SpO2 07/20/21209907/20/212099 -- 07/20/21209907/20/21209907/20/212099 36.5 ??C 81 16 (!) 138/92 98 % Pain Score 07/20/212052 7 PHYSICAL EXAMINATION Constitutional: Nursing note and vitals reviewed. She appears not lethargic. No distress. HENT: Head: Normocephalic and atraumatic. No signs of injury. Nose: Nose normal. Mouth/Throat: Mucous membranes are moist. Eyes: Conjunctivae and EOM are normal. Pupils are equal, round, and reactive to light. Cardiovascular: Normal rate. Capillary refill: takes less than 3 seconds, Edema: no edema noted Pulmonary/Chest: Effort normal. No tachypnea. No respiratory distress. Abdominal: Soft. exhibits no distension. There is no abdominal tenderness. There is no rebound and no guarding. Genitourinary: Genitourinary Comments: Rectal exam performed with nursing at bedside. Thrombosed left-sided external hemorrhoid. Musculoskeletal: General: No deformity. Normal range of motion. Cervical back: Normal range of motion. Neurological: Alert and oriented to person, place, and time. She is not disoriented. She exhibits normal muscle tone. Coordination normal. Skin: Skin is warm, dry and normal color. She is not diaphoretic. Psychiatric: She has a normal mood and affect. Behavior is normal. ASSESSMENT / PLAN ASSESSMENT/PLAN IMPRESSION AND PLAN The patient presents to the ED for evaluation of hemorrhoids. ?? DISPOSITION: Patient is awake, alert, oriented and appropriate to questions who is nontoxic or ill-appearing. Initial presentation to ED notable for an afebrile 41-year-old female with vital signs within normal limits. See HPI for more details. Secondary to known external hemorrhoids which have been worsening overthe past 24 hours since being seen by her PCP a shared decision making discussion was had proceedingwith prescription of Anusol cream to be used in addition to trial of Calmoseptine cream. Furthermorediscussion was had in regard to incision and drainage of this thrombosed hemorrhoid however with howlong patient's symptoms have been going on this would likely not be beneficial. Patient will continue Sitz baths at minimum of 3 times daily. Patient will use MiraLax as well to keep stools soft. I encourage follow up with their primary care provider as indicated. I also encourage to return emergency department for worsening symptoms or any other concerns that they feels requires further evaluation. This plan of discharge and follow-up including all test results was discussed in detail with opportunity to ask questions during discharge process. At this time there no further questions regarding this plan and discussion. I will discharge them home in stable condition. DIFFERENTIAL DIAGNOSIS Perianal abscess, perirectal abscess, external hemorrhoid, internal hemorrhoid I reviewed previous medical records including documentation from previous visits. Final Diagnoses: as of 07/20/212229 Hemorrhoids External Thrombosed Walter Merrill, Gaby. 07/20/212229 documented in this encounter Plan of Treatment Not on filedocumented as of this encounter Visit Diagnoses Diagnosis Hemorrhoids External Thrombosed - Primar y documented in this encounter Additional Health Concerns Assessment Noted Time PHQ-9 Depression Total Score: 17 07/13/2020 3:09 PM CD T documented as of this encounter
--- OUTSIDE RECORDS SUMMARY | 2022-03-16 14:59 | XMS_ITS | Encounter Summary ---
:1980 Author Organization [facility] Address [address] [place] [address] Care Team Providers Name Role Phone Elsewhere, Pcp Primary Care Provider Unavailable Reason for Visit Reason Comments Sore Throat Sore throat, left ear pain x 1 week. Symptoms are worsening Encounter Details Date Type Department Care Team Description 01/24/2022 Emergency [facility], Sore Throat (Primary Department Emilia Blanton M.D. Dx) [id number] [place] [id number] [phone] Social History Tobacco Use Types Packs/Day Years [...] or relatives? How often do you attend adventism or More than 4 times per year 11/09/2020 sabianism services? Do you belong to any clubs or No 11/09/2020 organizations such as adventism groups, unions, fraternal or athletic groups, or [...] place to sleep or slept in a longterm (including now)? Education Answer Date Recorded What is the highest level of school you have Some college, n o degree 11/17/2019 completed or the highest degree you have received? Sex Assigned at Date Recorded Not on file documented as of this encounter Last Filed Vital Signs Vital Sign Reading Time Taken Comments Blood Pressure 120/95 01/24/2022 6:45 PM CDT Pulse 107 01/24/2022 6:45 PM CDT Temperature 37.3 ??C (99.1 ??F) 01/24/2022 6:45 PM CDT Respiratory Rate 18 01/24/2022 6:45 PM CDT Oxygen Saturation 98% 01/24/2022 6:45 PM CDT Inhaled Oxygen Concentration - - Weight 100 kg (221 lb 5.5 oz) 01/24/2022 6:48 PM CDT Height - - Body Mass Index 40.48 12/06/2020 4:44 PM CDT documented in this encounter Medications at Time of Discharge Medication Sig Dispensed Refills Start Date End Date acetaminophen (TYLENOL) Take 650 mg by mouth 0 325 mg tablet every 4 (four) hours as needed for pain. cetirizine (ZyrTEC) 10 Take 1 tablet (10 mg 90 tablet 3 mg tablet total) by mouth daily. cholecalciferol, vitamin Take 25 mcg by mouth 0 D3, (cholecalciferol) 25 daily. mcg (1,000 Unit) tablet docusate sodium (COLACE) 0 06/23/2021 100 mg capsule DULoxetine (CYMBALTA) 20 TAKE 1 CAPSULE BY 90 capsule 3 04/0 07/202107/19/[address] capsule MOUTH DAILY fluticasone propionate Administer 2 sprays 0 (FLONASE) 50 into each nostril mcg/actuation nasal daily. spray fluticasone propionate USE 1 TO 2 SPRAYS IN 16 g 3 12/14/2022 (FLONASE) 50 EACH NOSTRIL DAILY mcg/actuation nasal spray hydrocortisone INSERT 1 SUPPOSITORY 30 each 0 07/19/2021 07/19/2022 (ANUSOL-HC) 25 mg RECTALLY DAILY suppository hydrOXYzine (VISTARIL) TAKE 1 CAPSULE BY 40 capsule 5 202104/28/2022 25 mg capsule MOUTH EVERY EIGHT HOURS NEEDED ibuprofen (ADVIL,MOTRIN) TAKE 1 TABLET BY 30 tablet 0 06/2306/23/2022 600 mg tablet MOUTH EVERY SIX HOURS NEEDED magnesium oxide (MAG-OX) TAKE 1 TABLET BY 120 tablet 2 07/1907/19/2022 400 mg (241.3 mg MOUTH DAILY magnesium) tablet nicotine (NICODERM CQ) APPLY 1 PATCH TO THE 14 patch 0 12/202108/23/2022 21 mg/24 hr patch SKIN DAILY nicotine polacrilex CHEW 1 PIECE OF GUM 110 each 3 022 08/23/2022 (NICORETTE) 4 mg gum EVERY 1 TO 2 HOURS NEEDED OR DIRECTED FOR NICOTINE WITHDRAWAL SYMPTOMS olopatadine (PATANOL) INSTILL 1 DROP IN 15 mL 3 022 12/14/2022 0.1 % ophthalmic EACH EYE TWO TIMES A solution DAY oxyCODONE (ROXICODONE) 5 TAKE 1 TABLET BY 20 tablet 0 06/2206/22/2022 mg immediate release MOUTH EVERY SIX tablet HOURS NEEDED; MAXIMUM DAILY DOSE OF 4 TABLETS PER 24 HOURS PARoxetine (PAXIL) 10 mg TAKE 1 TABLET BY 90 tablet 0 11/0811/08/2022 tablet MOUTH DAILY topiramate (TOPAMAX) 50 TAKE 1 TABLET BY 90 tablet 3 202110/04/2022 mg tablet MOUTH DAILY metroNIDAZOLE (FLAGYL) TAKE 1 TABLET BY 14 tablet 3 021 02/05/2022 500 mg tablet MOUTH TWO TIMES A DAY cetirizine (ZyrTEC) 10 Take 10 mg by mouth 0 08/08/202003/06/2022 mg tablet daily. cetirizine (ZyrTEC) 10 TAKE 1 TABLET BY 90 tablet 3 022 03/06/2022 mg tablet MOUTH DAILY DULoxetine (CYMBALTA) 20 20 mg. 0 07/19/2021 03/06/[address] capsule magnesium oxide (MAG-OX) 0 07/19/2021 03/06/2022 400 mg (241.3 mg magnesium) tablet documented as of this encounter ED Notes Emilia Pelletier M.D. - 01/24/2022 7:41 PM CDT Images from the original note were not included. CHIEF COMPLAINT/REASON FOR VISIT Sore Throat (Sore throat, left ear pain x1 week. Symptoms are worsening) HISTORY OF PRESENT ILLNESS Dulce Lei is a 41 y.o. female with a past medical history most notable for seasonal allergies, asthma, migraine who presents to the Emergency Department today due to left ear pain. Patient states she has had 1 week of postnasal drip which she attributes to allergies. On , she developed left ear pain. She took ibuprofen at approximately 5:30 a.m. today. She states last night her pain kept her awake. She is hoping for some pain control options here. REVIEW OF SYSTEMS Constitutional: Negative for fatigue and fever. HENT: Positive for ear pain and sore throat. Negative for sinus pressure and trouble swallowing. Respiratory: Negative for shortness of breath. Cardiovascular: Negative for chest pain. Gastrointestinal: Negative for abdominal pain, nausea and vomiting. Musculoskeletal: Negative for back pain. Skin: Negative for rash. Allergic/Immunologic: Negative for immunocompromised state. Neurological: Negative for headaches. OBJECTIVE Initial Vitals Temperature Pulse Rate Heart Rate Resp Rate Blood Pressure SpO2 01/24/22184401/24/221844 -- 01/24/22184401/24/22184401/24/221844 37.3 ??C 107 18 (!) 120/95 98 % Pain Score 01/24/221847 6 PHYSICAL EXAMINATION Constitutional: Nursing note and vitals reviewed. No distress. HENT: Head: No signs of injury. Right Ear: Tympanic membrane normal. Left Ear: Tympanic membrane normal. Nose: No nasal discharge. Mouth/Throat: Mucous membranes are moist. Eyes: Conjunctivae and EOM are normal. Neck: Neck supple. Cardiovascular: Normal rate. Edema: no edema noted Pulmonary/Chest: Effort normal. No respiratory distress. Abdominal: exhibits no distension. Musculoskeletal: General: No deformity. Normal range of motion. Cervical back: Normal range of motion and neck supple. Neurological: Alert. She is not disoriented. Skin: Skin is warm and dry. Psychiatric: She has a normal mood and affect. Behavior is normal. DIFFERENTIAL DIAGNOSIS Acute otitis media Allergies Eustachian tube dysfunction Sinusitis DIAGNOSTIC STUDIES LABORATORY RESULTS: Abnormal Labs Reviewed - No abnormal labs to display IMAGING STUDIES: No orders to display MEDICAL DECISION MAKING Ms. Lei is a very pleasant 41 y.o. female presenting with left ear pain and postnasal drip. On initial evaluation she was found to be resting, breathing comfortably and hemodynamically stable. On exam, patient appears well. She has no tonsillar exudate to suggest strep throat. She did have a COVIDtest within the last 90 days and so we will not repeat that today. Patient has no evidence of acute otitis media. The etiology of the patient's symptoms is unclear to me at this time but could be related to patient is known allergies or a developing infection. I am not concerned for an emergent etiology at this time. I discussed management recommendations including saltwater gargles, drinking warm water and honey, Tylenol and ibuprofen as well as following up with primary care provider. I offered Tylenol here but patient states she can take that at home. At this time, patient is stable for discharge and she understands signs and symptoms to prompt return to the emergency department. I reviewed previous medical records including documentation from previous visits. CLINICAL IMPRESSION Final Diagnoses: as of 01/24/221944 Sore Throat Emilia Pelletier M.D. Resident 01/24/221944 documented in this encounter Plan of Treatment Not on filedocumented as of this encounter Visit Diagnoses Diagnosis Sore Throat - Primary documented in this encounter Additional Health Concerns Assessment Noted Time PHQ-9 Depression Total Score: 17 07/13/2020 3:09 PM CD T documented as of this encounter Care Teams Helpdesk Technician Relationship Specialty Start Date End Date Elsewhere, Pcp PCP - General Internal Medicine 08/31/21 documented as of this encounter
--- OUTSIDE RECORDS SUMMARY | 2022-03-16 14:59 | XMS_ITS | Encounter Summary ---
:1980 Author Organization [facility] Address [address] [place] [address] Care Team Providers Name Role Phone Elsewhere, Pcp Primary Care Provider Unavailable Reason for Visit Reason Comments Migraine Migraine started last night, patient reports nausea/vomiting/light sensitivity. Encounter Details Date Type Department Care Team Description 02/09/2022 Emergency [facility] Walter Merrill Mi graine Headache Department P.A.-C. (Primary Dx) [id number] [place] [address] [address] [place], [place] [address] [phone] (Wo rk) Social History Tobacco Use Types [...] or relatives? How often do you attend jehovah's witness or More than 4 times per year 11/09/2020 church services? Do you belong to any clubs or No 11/09/2020 organizations such as jehovah's witness groups, unions, fraternal or athletic groups, or [...] place to sleep or slept in a half-way (including now)? Education Answer Date Recorded What is the highest level of school you have Some college, n o degree 11/17/2019 completed or the highest degree you have received? Sex Assigned at Date Recorded Not on file documented as of this encounter Last Filed Vital Signs Vital Sign Reading Time Taken Comments Blood Pressure 104/74 02/09/2022 6:45 PM CDT Pulse 82 02/09/2022 6:45 PM CDT Temperature 36.9 ??C (98.4 ??F) 02/09/2022 5:39 PM CDT Respiratory Rate 20 02/09/2022 5:39 PM CDT Oxygen Saturation 100% 02/09/2022 6:45 PM CDT Inhaled Oxygen Concentration - - Weight 101 kg (222 lb 0.1 oz) 02/09/2022 5:41 PM CDT Height - - Body Mass Index 40.6 12/06/2020 4:44 PM CDT documented in this encounter Discharge Instructions AttachmentsThe following attachments cannot be sent through Care Everywhere. Migraine Headache [id number] (Malay)documented in this encounter Medications at Time of [...] TAKE 1 CAPSULE BY 90 capsule 3 07/202107/19/[address] capsule MOUTH DAILY fluticasone propionate Administer 2 sprays 0 (FLONASE) 50 into each nostril mcg/actuation nasal daily. spray fluticasone propionate USE 1 TO 2 SPRAYS IN 16 g 3 12/14/2022 (FLONASE) 50 EACH NOSTRIL DAILY mcg/actuation nasal spray guaiFENesin (MUCINEX) 600 mg orally every 60 tablet 1 01/25 600 mg 12 hr tablet 12 hours for 30 days hydrocortisone INSERT 1 SUPPOSITORY 30 each 0 [...] TAKE 1 TABLET BY 20 tablet 0 06/222 06/22/2022 mg immediate release MOUTH EVERY SIX tablet HOURS NEEDED; MAXIMUM DAILY DOSE OF 4 TABLETS PER 24 HOURS PARoxetine (PAXIL) 10 mg TAKE 1 TABLET BY 90 tablet 0 11/0811/08/2022 tablet MOUTH DAILY topiramate (TOPAMAX) 50 TAKE 1 TABLET BY 90 tablet 3 202110/04/2022 mg tablet MOUTH DAILY azithromycin (ZITHROMAX) Take 2 tablets by 6 tablet 0 01/1503/06/2022 250 mg tablet mouth today (day 1), then take 1 tablet daily for 4 days (days 2-5) cetirizine (ZyrTEC) 10 Take 10 mg by mouth 0 /08/202003/06/2022 mg tablet daily. cetirizine (ZyrTEC) 10 TAKE 1 TABLET BY 90 tablet 3 022 03/06/2022 mg tablet MOUTH DAILY DULoxetine (CYMBALTA) 20 20 mg. 0 07/19/2021 03/06/[address] capsule magnesium oxide (MAG-OX) 0 07/19/2021 03/06/2022 400 mg (241.3 mg magnesium) tablet documented as of this encounter ED Notes Walter Merrill P.A.-C. - 02/09/2022 6:44 PM CDT SUBJECTIVE CHIEF COMPLAINT/REASON FOR VISIT Migraine (Migraine started last night, patient reports nausea/vomiting/light sensitivity. ) HISTORY OF PRESENT ILLNESS Dulce Lei is a 41 y.o. female presents to [facility] requesting evaluation for migraine. Past medical history notable for but not limited to asthma, obesity, migraine. Patient notes that migraine started last night for which she tried some Excedrin migraine at home withno relief. Headache was gradual in onset. Notes association of nausea, vomiting, light sensitivity and sound sensitivity. Headache is more frontal and bilateral. Severity and location is consistent with prior migraine headaches. No recent falls or head trauma. No neck pain or meningismus like symptoms. No fevers. No focal neurological deficits. No vision changes. 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 HENT: Negative for ear pain and sore throat. Eyes: Positive for photophobia. Negative for visual disturbance. Respiratory: Negative for shortness of breath. Cardiovascular: Negative for chest pain. Gastrointestinal: Positive for nausea and vomiting. Negative for abdominal pain and blood in stool. Genitourinary: Negative for dysuria and hematuria. Musculoskeletal: Negative for neck pain. Patient denies any new or worsening joint/muscle pain Skin: Negative for rash. Neurological: Positive for headaches. Negative for dizziness and syncope. OBJECTIVE Initial Vitals Temperature Pulse Rate Heart Rate Resp Rate Blood Pressure SpO2 02/09/22 1739 02/09/22 1739 -- 02/09/22 1739 02/09/22 1739 02/09/22 173 36.9 ??C 79 20 (!) 126/95 97 % Pain Score 02/09/22 1741 9 PHYSICAL EXAMINATION Constitutional: Nursing note and vitals reviewed. She appears not lethargic. No distress. HENT: Head: Normocephalic and atraumatic. No signs of injury. Nose: Nose normal. Mouth/Throat: Mucous membranes are moist. Eyes: Conjunctivae and EOM are normal. Pupils are equal, round, and reactive to light. Cardiovascular: Normal rate. Capillary refill: takes less than 3 secondsEdema: no edema noted Pulmonary/Chest: Effort normal. No tachypnea. No respiratory distress. Musculoskeletal: General: No deformity. Normal range of motion. Cervical back: Normal range of motion. Comments: Strength and sensory intact upper and lower extremities bilaterally Neurological: Alert and oriented to person, place, and time. She is not disoriented. No cranial nerve deficit. She exhibits normal muscle tone. Coordination normal. Skin: Skin is warm, dry and normal color. She is not diaphoretic. Psychiatric: She has a normal mood and affect. Behavior is normal. ED Medication Administration from 02/09/2022 1726 to 02/09/2022 1851 Date/Time Order Dose Route Action Action by 02/09/2022 1823 CDT NaCl 0.9 % bolus 1,000 mL 1,000 mL intravenous New Bag Remillard, M 02/09/2022 182 CDT metoclopramide injection 10 mg (REGLAN) 10 mg intravenous Given Remillard, M 02/09/2022 1825 CDT ketorolac injection 15 mg (TORADOL) 15 mg intravenous Given Remillard, M 02/09/2022 182 CDT diphenhydrAMINE injection 25 mg (BENADRYL) 25 mg intravenous Given Remillard, M ASSESSMENT / PLAN ASSESSMENT/PLAN IMPRESSION AND PLAN The patient presents to the ED for evaluation of headache. The patient arrives still in active pain.At present, given the patient's history and my examination, my suspicion is that the headache is either due to a migraine or tension headache. I do not think the patient has a subarachnoid hemorrhage -it was not sudden and maximal at onset is not described as the worst headache of the patient's life,and there has been no associated syncope or trauma. I do not think the patient has bacterial meningitis - they are afebrile, without meningismus, and is non-toxic appearing. I have not found any concerning findings to suspect patient's headache is due to acute angle glaucoma, CO poisoning, idiopathic intracranial hypertension, or hypertensive emergency. Lastly, I do not think the symptoms are concerning for a tumor or mass given the normal neurologic exam and absence of an insidious course. Patient had an improvement in her symptoms after migraine protocol regimen that was provided. At this time patient has no neurological symptoms, red flags or deficits that would prompt me to pursue neurologicalimaging. Patient has been hemodynamically stable while in the emergency department given this information she is suitable for discharge. I reviewed previous medical records including documentation from previous visits. Final Diagnoses: as of 02/09/221850 Migraine Headache Walter Merrill, Gaby. 02/09/221850 documented in this encounter Plan of Treatment Not on filedocumented as of this encounter Visit Diagnoses Diagnosis Migraine Headache - Primary documented in this encounter Administered Medications Inactive Administered Medications - up to 3 most recent administrations Medication Order MAR Action Action Date Dose Rate Site diphenhydrAMINE injection 25 mg Given 02/09/2022 6:23 PM CDT 25 mg (BENADRYL) 25 mg, intravenous, Once, On Mon02/09/22 at 181, For 1 dose ketorolac injection 15 mg (TORADOL) Given 02/09/2022 6:25 PM CDT 15 mg 15 mg, intravenous, Once, On Mon02/09/22 at 181, For 1 dose, Adult IV push rate: Over 15 seconds. Peds IV push rate: Over 1 minute. 60 mg dose only for IM, not recommended for IV. metoclopramide injection 10 mg (REGLAN) Given 02/09/2022 6:24 PM CDT 10 mg 10 mg, intravenous, Once, On Mon02/09/22 at 181, For 1 dose NaCl 0.9 % bolus 1,000 mL New Bag 02/09/2022 6:23 PM CDT 1,000 mL 1000 mL/hr 1,000 mL, intravenous, at 1,000 mL/hr, Administer over 1 Hours, Once, On Mon02/09/22 at 1816, For 1 dose sodium chloride 0.9 % injection 2-10 mL 2-10 mL, intravenous, As needed, line care, Starting o n Mon02/09/22 at 1815 documented in this encounter Active and Recently Administered Medications Times are shown in CDT. Scheduled Medication Order 02/07/2022 02/08/2022 02/09/2022 diphenhydrAMINE injection 25 mg (BENADRYL) (COMPLETED) 1822 (Given - Provider: Shelton Archibald R.N.) 25 mg, intravenous, Once, On Mon02/09/22 at 181, For 1 dose ketorolac injection 15 mg (TORADOL) (COMPLETED) 1824 (Given - Provider: Shelton Archibald R.N.) 15 mg, intravenous, Once, On Mon 2 at 181, For 1 dose, Adult IV push rate: Over 15 seconds. Peds IV push rate: Over 1 minute. 60 mg dose only for IM, not recommended for IV. metoclopramide injection 10 mg (REGLAN) (COMPLETED) 1823 (Given - Provider: Shelton Archibald R.N.) 10 mg, intravenous, Once, On Mon02/09/22 at 1816, For 1 dose NaCl 0.9 % bolus 1,000 mL 1822 ( New Bag - Provider: Shelton Archibald R.N.)192 (Due: Stopped - Provider: Shelton Archibald R.N.) 1,000 mL, intravenous, at 1,000 mL/hr, A dminister over 1 Hours, Once, On Mon02/09/22 at 1816, For 1 dose PRN Medication Order 02/07/2022 02/08/2022 02/09/2022 sodium chloride 0.9 % injection 2-10 mL(Linked Group 1) 2-10 mL, intravenous, As needed, line care, Starting on 01/16 at 1815 Linked Groups Order Group 1: Place peripheral IV: No upper extremity site restrictions (CANCELED) Upper extremity site restriction: No upp er extremity site restrictions
Quantity of PIVs requested: One
STAT, Once, On Mon02/09/22 at 1816, For 1 occurrence And sodium chloride 0.9 % injection 2-10 mLJump to med 2-10 mL, intravenous, As needed, line ca re, Starting on Mon02/09/22 at 1815 documented in this encounter Additional Health Concerns Assessment Noted Time PHQ-9 Depression Total Score: 17 07/13/2020 3:09 PM CD T documented as of this encounter Care Teams Hub Bander Relationship Specialty Start Date End Date Elsewhere, Pcp PCP - General Internal Medicine 08/31/21 documented as of this encounter
--- OUTSIDE RECORDS SUMMARY | 2022-03-16 14:59 | XMS_ITS | Encounter Summary ---
:1980 Author Organization [facility] Address [address] [place] [address] Care Team Providers Name Role Phone Elsewhere, Pcp Primary Care Provider Unavailable Encounter Details Date Type Department Care Team Description 11/08/2021 Orders Only [facility] Alia Roberts, Jhonatan Purvis C.N.P. [address] [place] Jhonatan Pur[place] [id number] [phone] Social History Tobacco Use Types Packs/Day Years [...] How often do you attend druze or More than 4 times per year 11/09/2020 yarsani services? Do you belong to any clubs or No 11/09/2020 organizations such as druze groups, unions, fraternal [...] documented as of this encounter Care Teams Contact Lens Assistant Relationship Specialty Start Date End Date Elsewhere, Pcp PCP - General Internal Medicine 08/31/21 documented as of this encounter
--- OUTSIDE RECORDS SUMMARY | 2022-03-16 14:59 | XMS_ITS | Encounter Summary ---
:1980 Author Organization [facility] Address [address] [place] [address] Care Team Providers Name Role Phone Unavailable Primary Care Provider Unavailable Reason for Visit Reason Comments Medication Problem Encounter Details Date Type Department Care Team Description 07/21/2021 Clinical Communication [facility] Emma Redd Medic ation Problem Pharmacy Jhonatan Hannon Pharm.D., Yaniv R.Ph. [address] [phone] Social History Tobacco Use Types Packs/Day Years [...] How often do you attend anabaptism or More than 4 times per year 11/09/2020 yarsanism services? Do you belong to any clubs or No 11/09/2020 organizations such as anabaptism groups, unions, fraternal [...] place to sleep or slept in a fdc (including now)? Education Answer Date Recorded What is the highest level of school you have Some college, n o degree 11/17/2019 completed or the highest degree you have received? Sex Assigned at Date Recorded Not on file documented as of this encounter Miscellaneous Notes Telephone Encounter - Emma Redd, Pharm.D., R.Ph. - 07/21/2021 2:46 PM CDT Pharmacy received a prescription for Anusol-HC , however it is not covered by the insurance. The PROCTOFOAM HC 1-1% Foam is covered fully by the patient's insurance plan. Are you ok with us switching to this product instead? Thank you, [facility] documented in this encounter Plan of Treatment Not on filedocumented as of this encounter Visit Diagnoses Not on filedocumented in this encounter Additional Health Concerns Assessment Noted Time PHQ-9 Depression Total Score: 17 07/13/2020 3:09 PM CD T documented as of this encounter
--- OUTSIDE RECORDS SUMMARY | 2022-03-16 14:59 | XMS_ITS | Encounter Summary ---
:1980 Author Organization [facility] Address [address] [place] [address] Care Team Providers Name Role Phone Elsewhere, Pcp Primary Care Provider Unavailable Reason for Visit Reason Comments Foot Pain Pt presents with left foot p ain redness, swelling Encounter Details Date Type Department Care Team Description 09/19/2021 Emergency [place] [facility] Vaughn Lynch C ontusion Foot Initial Department C.N.P. Left (Primary Dx) [address] [place] and [place], [place] Zabrina Banegas [address] [place], [place] [phone] (Wo rk) Social History Tobacco Use Types [...] place to sleep or slept in a jail (including now)? Education Answer Date Recorded What is the highest level of school you have Some college, n o degree 11/17/2019 completed or the highest degree you have received? Sex Assigned at Date Recorded Not on file documented as of this encounter Last Filed Vital Signs Vital Sign Reading Time Taken Comments Blood Pressure 116/76 09/19/2021 7:00 PM CDT Pulse 89 09/19/2021 7:00 PM CDT Temperature 36.7 ??C (98.1 ??F) 09/19/2021 7:00 PM CDT Respiratory Rate 20 09/19/2021 7:00 PM CDT Oxygen Saturation 97% 09/19/2021 7:00 PM CDT Inhaled Oxygen Concentration - - Weight 96.2 kg (212 lb 1.3 oz) 09/19/2021 6:52 PM CDT Height - - Body Mass Index 38.79 12/06/2020 4:44 PM CDT documented in this encounter Discharge Instructions Discharge InstructionsStVaughn chapin, C.N.P. - 09/19/2021 7:15 PM CDT Continue with ice and elevation tristan wrap and hard soled shoe with ibuprofen/tylenol every 6 hours for pain. After 48-72 you can switch to heat. Follow up in 7-10 days if continued pain for repeat imaging. AttachmentsThe following attachments cannot be sent through Care Everywhere. Hematoma [id number] ([place] Islander)documented in this encounter Medications at Time of Discharge Medication Sig Dispensed Refills Start Date End Date acetaminophen (TYLENOL) Take 650 mg by mouth 0 325 mg tablet every 4 (four) hours as needed for pain. cholecalciferol, Take 25 mcg by mouth 0 vitamin D3, daily. (cholecalciferol) 25 mcg (1,000 Unit) tablet docusate sodium 0 06/23/2021 (COLACE) 100 mg capsule fluticasone propionate Administer 2 sprays 0 (FLONASE) 50 into each nostril mcg/actuation nasal daily. spray ascorbic acid, vitamin TAKE 1 TABLET BY 100 tablet 3 021 C, (VITAMIN C) 500 mg MOUTH DAILY tablet DULoxetine (CYMBALTA) TAKE 1 CAPSULE BY 90 [...] mg (241.3 MOUTH DAILY mg magnesium) tablet nicotine (NICODERM CQ) APPLY 1 PATCH TO THE 14 patch 0 2 08/23/2022 21 mg/24 hr patch SKIN DAILY nicotine polacrilex CHEW 1 PIECE OF GUM 110 each 3 022 08/23/2022 (NICORETTE) 4 mg gum EVERY 1 TO 2 HOURS NEEDED OR DIRECTED FOR NICOTINE WITHDRAWAL SYMPTOMS oxyCODONE (ROXICODONE) TAKE 1 TABLET BY 20 tablet 0 022 06/22/2022 5 mg immediate release MOUTH EVERY SIX tablet HOURS NEEDED; MAXIMUM DAILY DOSE OF 4 TABLETS PER 24 HOURS cetirizine (ZyrTEC) 10 Take 10 mg by mouth 0 08/0 08/2020 03/06/2022 mg tablet daily. DULoxetine (CYMBALTA) 20 mg. 0 07/19/[address] capsule magnesium oxide 0 07/19/2021 2 (MAG-OX) 400 mg (241.3 mg magnesium) tablet metroNIDAZOLE (FLAGYL) TAKE 1 TABLET BY 14 [...] 5. TAKE MEDICATION FOR 5 DAYS. butalbital-acetaminophe TAKE 1 TO 2 TABLETS 20 [...] TWO TIMES A DAY NEEDED DULoxetine (CYMBALTA) TAKE 2 CAPSULES BY 180 capsule 0 02/1001/05/[address] capsule MOUTH DAILY famotidine (PEPCID) 10 TAKE 1 TABLET BY 60 tablet 0 01/05/2022 mg tablet MOUTH TWO TIMES A DAY ferrous sulfate 324 mg TAKE 1 TABLET BY 100 tablet 0 01/05/2022 (65 mg iron) DR tablet MOUTH DAILY fluticasone propionate USE 1 SPRAY IN EACH 16 g 3 04/07/202101/05/2022 (FLONASE) 50 NOSTRIL DAILY mcg/actuation nasal spray hydrOXYzine (VISTARIL) TAKE 1 TO 4 CAPSULES 12 capsule 0 10/202101/05/2022 25 mg capsule BY MOUTH DAILY labetaloL (NORMODYNE) TAKE 2 TABLETS BY 120 tablet 0 01/05/2022 100 mg tablet MOUTH TWO TIMES A DAY magnesium oxide TAKE 1 TABLET BY 120 tablet 0 04/19/2021 (MAG-OX) 400 mg (241.3 MOUTH DAILY mg magnesium) tablet metoclopramide (REGLAN) TAKE 1 TABLET BY 30 tablet 3 202001/05/2022 10 mg tablet MOUTH THREE TIMES A DAY NEEDED PARoxetine (PAXIL) 10 TAKE ONE-HALF TABLET 15 tablet 0 09/1601/05/2022 mg tablet BY MOUTH DAILY penicillin V potassium TAKE 1 TABLET BY 40 tablet 0 01/05/2022 (VEETIDS) 500 mg tablet MOUTH FOUR TIMES A DAY UNTIL GONE sertraline (ZOLOFT) 25 TAKE 1 TABLET BY 7 tablet 0 01/05/2022 mg tablet MOUTH DAILY sertraline (ZOLOFT) 50 TAKE 1 TABLET BY 30 tablet 0 2022 mg tablet MOUTH DAILY documented as of this encounter ED Notes Vaughn Lynch C.N.P. - 09/19/2021 6:58 PM CDT Images from the original note were not included. CHIEF COMPLAINT/REASON FOR VISIT Foot Pain (Pt presents with left foot pain redness, swelling) HISTORY OF PRESENT ILLNESS Dulce Lei is a 41 y.o. who has a past medical history of Asthma (HCC) and Migraine Headache. Patient presents to the emergency Department with complaints of foot pain with redness and swelling. Patient presents to the emergency department with complaints of left foot pain, swelling, bruising. Patient states started yesterday. She denies any injury that she is aware of. And she noticed some swelling with pain. This is progressed, until now when she presents for further evaluation. Patient states she has tried ice and heat and Advil at home with no relief of her symptoms. Patient has a area dorsal swelling, with a slight discoloration of the skin which is suggests an early bruise. Pedal pulses present. No significant pain with walking. History provided by: Patient REVIEW OF SYSTEMS Constitutional: Negative for chills, diaphoresis, fatigue and fever. HENT: Positive for postnasal drip. Negative for sinus pressure and sore throat. Respiratory: Negative for cough, chest tightness and shortness of breath. Cardiovascular: Negative for chest pain. Gastrointestinal: Negative for abdominal pain, constipation, diarrhea, nausea and vomiting. Musculoskeletal: Positive for extremity pain. Negative for arthralgias and myalgias. Skin: Negative for rash. Neurological: Negative for dizziness, weakness and headaches. Hematological: Negative for adenopathy. Does not bruise/bleed easily. All other systems reviewed and are negative. Allergies Reviewed in medical record Current Medications Reviewed in Medical Record. PAST HISTORY Medical Past Medical History: Diagnosis Date ??? Asthma (HCC) ??? Migraine Headache Patient Active Problem List Diagnosis ??? Asthma (HCC) ??? Obesity Body Mass Index 30-39.9 Adult ??? Migraine With Aura Not Intractable Without Status Migrainosus ??? Pap Smear Examination ??? Intrauterine Device Status ??? Care And Lactating ??? Preeclampsia Severe (HCC) ??? Shortness Of Breath ??? Discomfort Chest Surgical Past Surgical History: Procedure Laterality Date ??? CHOLECYSTECTOMY 11/2020 ??? DILATION AND CURETTAGE N/A 03/26/2013 Dilation and curettage ??? INJECTION N/A 03/28/2005 >Compound F Injection ??? INJECTION N/A 04/21/2005 >Compound F Injection ??? MYRINGOTOMY W/ TUBES N/A 06/27/1988 Bilateral myringotomy with placement of Paparella tubes. ??? REPAIR FOOT PERONEUS BREVIS TENDON Right 12/11/2019 Procedure: PERONEUS BREVIS TENDON REPAIR FOOT-Right ankle peroneus brevis tendon repair, brostrom repair; Surgeon: Alexsander Marshall M.D.; Location: [facility] OR ??? TONSILLECTOMY AND ADENOIDECTOMY N/A 04/17/1994 Tonsillectomy with adenoidectomy Family Reviewed in Medical Record Social History Social History Tobacco Use ??? Smoking status: Current Every Day Smoker Packs/day: 0.50 Types: Cigarettes Start date: 2007 ??? Smokeless tobacco: Never Used ??? Tobacco comment: 1/2 or less pack/d, trying to quit Substance Use Topics ??? Alcohol use: Not Currently Comment: occasional Social History Substance and Sexual Activity Drug Use Not Currently OBJECTIVE Initial Vital Signs / Weights Initial Vitals Temperature Pulse Rate Heart Rate Resp Rate Blood Pressure SpO2 09/19/21 1900 09/19/21 1900 -- 09/19/21 1900 09/19/21 1900 09/19/21 1900 36.7 ??C 89 20 116/76 97 % Pain Score 09/19/21 1854 6 Wt Readings from Last 3 Encounters: 09/19/21 96.2 kg 08/31/21 95.5 kg 07/20/21 91.8 kg PHYSICAL EXAMINATION Constitutional: Nursing note and vitals reviewed. No distress. HENT: Nose: No nasal discharge. Mouth/Throat: Oropharynx is clear and moist. Mucous membranes are moist. No tonsillar exudate. Eyes: Conjunctivae are normal. Pupils are equal, round, and reactive to light. Neck: Neck supple. Cardiovascular: Normal rate. Pulses are strong and palpable. Capillary refill: takes less than 3 seconds, Pulmonary/Chest: Effort normal. No respiratory distress. Musculoskeletal: General: Normal range of motion. Cervical back: Normal range of motion and neck supple. Comments: Tenderness with mild swelling and early ecchymosis to the top of the left foot. Pedal pulses present. Capillary refill is brisk. Tenderness around the fifth metatarsal. Lymphadenopathy: She has no cervical adenopathy. Neurological: Alert and oriented to person, place, and time. Skin: Skin is warm, dry and intact. Psychiatric: She has a normal mood and affect. DIAGNOSTICS Radiology DX Foot Left 3+ Views (Results Pending) IMPRESSION: 1. No acute findings. 2. If clinical concern for occult fracture, consider followup radiographs in 7- 10 days. Thank you for allowing us to participate in the care of your patient. Dictated and Authenticated by: Heaven Gonsalez DO 09/19/2021 8:07 PM Central Time ([place] & [place]) Patient called with report Procedures Tristan wrap, hard-soled shoe per Nursing ED COURSE ED Course as of 09/19/212008 [place] Sep 19, 2021 1857 I performed my initial evaluation of the patient. We discussed Emergency Department course including testing, treatment, and potential disposition based on findings. 1940 Imaging appears negative to me. Patient prefers to discharge and I will call her results. Placed in tristan wrap and hard soled shoe per nursing. I discussed the plan for discharge with the patient, and patient/family is agreeable. I discussed with patient the utility, limitations, and findings of the exam/interventions/studies done during this visit as well as the list of differential diagnosis. Patient understands provisional nature of this diagnosis and need for follow up. We discussed the plan of care, including supportive cares. We also discussed symptoms to monitor and symptoms that should prompt them to return for re-evaluation including new or worsening symptoms. All questions and concerns addressed. Patient to be discharged by RN. Final Diagnoses: as of 09/19/212008 Contusion Foot Initial Left - spontaeous rupture of blood vessel (hematoma) INTERVENTIONS Medications - No data to display MEDICAL DECISION MAKING IMPRESSION AND PLAN Presents to the emergency department with complaints of left foot pain. Patient states she noticed swelling yesterday and the pain has progressed until today. She has been treating it with ice, elevation, ibuprofen, and heat at home with no relief of symptoms. Patient denies any type of injury in the last couple of weeks. Differential diagnosis for extremity trauma includes but is not limited to; soft tissue contusion, strain, sprain, fracture, compartment syndrome or hematoma. Exam per physical exam section. The following x-rays were obtained left foot, And were negative. The patients pain is not out of proportion to the exam/injury, cms is intact with brisk capillary refill and pulses are present I do not feel this is compartment syndrome. Care while in the ED included tristan wrap, hard soled shoe and the patients pain improved and were discharged. Red flag symptoms were also reviewed with the patient that should return them to the ED including but not limited to; worsening pain, swelling, cool extremity, delayed capillary refill, signs of compartment syndrome. I reviewed previous medical records including radiology images/report and documentation from previous visits. I personally reviewed the radiology image(s) and reviewed the radiology report(s). The Radiology exam interpretation(s) is/are normal. DIAGNOSIS Final diagnoses: [S90.32XA] Contusion Foot Initial Left - spontaeous rupture of blood vessel (hematoma) DISPOSITION Home or Self Care DISCHARGE/TRANSFER VITAL SIGNS Vitals: 09/19/21 1900 BP: 116/76 Pulse: 89 Resp: 20 Temp: 36.7 ??C SpO2: 97% ED DISCHARGE MEDS ED Prescriptions None FOLLOW UP As needed or at 7-10 days if continued pain. Vaughn Lynch, DNP, REGIONAL TRANSFER LIAISON, GOLF CLUB HEAD FORMER-C, AGACNP-BC, ENP-C Emergency Medicine Vaughn Lynch, C.N.P. 09/19/212008 documented in this encounter Plan of Treatment Not on filedocumented as of this encounter Procedures Procedure Name Priority Date/Time Associated Comments Diagnosis DX FOOT LEFT 3+ RAD - Semiurgent 09/19/2021 8:08 Resul ts for this VIEWS (Fast; most ED PM CDT procedure are in patients; some the results inpatients) section. documented in this encounter Results DX Foot Left 3+ Views (09/19/2021 8:08 PM CDT) Anatomical Region Laterality Modality Lower Extremity, Foot, Musculoskeletal RST LOS, Left Digital Radiography Musculoskeletal ARZ LOS, Muskuloskeletal FLA LOS Specimen (Source) Anatomical Collection Method Collection Time Re ceived Time Location / / Volume Laterality 09/19/2021 10:46 PM CDT Impressions 09/20/2021 1:10 AM CDT No evidence of fracture or other acute abnormality in the left foot. vRad: ??Findings concordant with azucena Cantrell report. Narrative 09/20/2021 1:10 AM CDT EXAM: DX FOOT LEFT 3+ VIEWS Procedure Note Naga Clark M.D. - 09/20/2021Form atting of this note might be different from the original. EXAM: DX FOOT LEFT 3+ VIEWS IMPRESSION: No evidence of fracture or other acute a bnormality in the left foot. vRad: Findings concordant with ishan Cantrell report. Vaughn Lynch C.N.P. IM[facility]andana DIAGNOST[facility] IMAGING PROCE SOHEILA documented in this encounter Visit Diagnoses Diagnosis Contusion Foot Initial Left - Primary documented in this encounter Additional Health Concerns Assessment Noted Time PHQ-9 Depression Total Score: 17 07/13/2020 3:09 PM CD T documented as of this encounter Care Teams Warehouse Associate Relationship Specialty Start Date End Date Elsewhere, Pcp PCP - General Internal Medicine 08/31/21 documented as of this encounter
--- OUTSIDE RECORDS SUMMARY | 2022-03-16 14:59 | XMS_ITS | Encounter Summary ---
:1980 Author Organization [facility] Address [address] [place] [address] Care Team Providers Name Role Phone Elsewhere, Pcp Primary Care Provider Unavailable Reason for Visit Reason Comments Medical Information Encounter Details Date Type Department Care Team Description 12/16/2021 Nurse Triage Department of [facility] Tegan Mendez [facility] Information Medicine, [facility], in [place], [address] [place] [address] [place], [place] [phone] (Work) [phone] Social History Tobacco Use Types Packs/Day Years [...] or relatives? How often do you attend cheondoism or More than 4 times per year 11/09/2020 temple services? Do you belong to any clubs or No 11/09/2020 organizations such as cheondoism groups, unions, fraternal or athletic groups, or [...] place to sleep or slept in a group home (including now)? Education Answer Date Recorded What is the highest level of school you have Some college, n o degree 11/17/2019 completed or the highest degree you have received? Sex Assigned at Date Recorded Not on file documented as of this encounter Miscellaneous Notes Telephone Encounter - Tegan Mendez R.N. - 12/16/2021 8:18 AM CDT Chief Complaint / Reason for Call Patient is a 41 y.o. female calling regarding Medical Information. Assessment Concern: Tested positive for Covid last night. Has sore throat . Others in family are sick as well, some tested positive. Denies SOB. Denies Chest Pain. Present for: yesterday Calling to request: PCR Covid test. Dulce, Your coronavirus nasal swab has come back positive for SARS-CoV-2, the virus that causes COVID-19. This means that you have COVID-19 and can spread it to others. You must isolate at home to keep otherssafe and prevent the spread of the virus. COVID-19 Isolation Beginning of isolation (day 0) is considered the start of onset of symptoms. Isolate at home with minimal to no contact with other people living in your house until all the following are true: It has been at least 5 days since your symptoms started. Or, if you have no symptoms, it has been atleast 5 days since your positive COVID-19 test. If you are immune compromised, isolate for at least 10 days. You are fever free for at least 24 hours without the use of fever-reducing medications. Wear a mask everywhere you go for an additional 5 days. Continue to wear a mask in indoor spaces when community transmission is high. What should you tell your close contacts? Wear a mask for 10 days following the close contact exposure. They do not need to quarantine if they do not have symptoms. Get tested for COVID-19 five days after the close contact exposure. If they develop symptoms, they need to quarantine and get tested for COVID-19. Treatment Options Getting plenty of rest, staying hydrated and taking over the counter medications can help you feel better. You may use acetaminophen, ibuprofen or naproxen to control fever, muscle aches, headaches andsore throat. You may use other over the counter medications as needed for cough and congestion. Treatment options are based on a review of your documented past medical history in the [facility] medical record. Eligible patients will be contacted within 48 hours after their test result has been posted for an assessment of possible treatment and monitoring. Response to Education: patient/caller able to teach back Caller agreeable to plan of care: yes documented in this encounter Plan of Treatment Not on filedocumented as of this encounter Procedures Procedure Name Priority Date/Time Associated Diagnosis Comme nts EXTM HOME SARS Routine 12/15/2021 10:00 PM Result s for this CORONAVIRUS-2 CDT procedure are in (COVID-19) ANTIGEN, the resu lts V section. documented in this encounter Results (ABNORMAL) EXT Home SARS Coronavirus-2 (COVID-19) Antigen, Varies (12/15/2021 10:00 PM CDT) [facility] gist Method Time Signature EXT Home Presumptive Presumptive OTHER SARS-CoV-2 Positive (A) Negative (SPECIFY IN Antigen PHLEBOTOMY PROGRAM COORDINATOR) Specimen (Source) Anatomical Collection Method Collection Time Re ceived Time Location / / Volume Laterality Swab 12/15/2021 10:00 PM CDT Historical Provider LAB MICROBIOLOGY - GENERAL O RDERABLES Performing Organization Address City/State/ZIP Code Phon e Number OTHER (SPECIFY IN PHLEBOTOMY PROGRAM COORDINATOR) OTHER (SPECIFY IN PHLEBOTOMY PROGRAM COORDINATOR) N/A documented in this encounter Visit Diagnoses Not on filedocumented in this encounter Additional Health Concerns Infection Onset Date Last Indicated Resolved Time COVID19 12/15/2021 12/15/2021 01/04/2022 4:45 AM CDT Assessment Noted Time PHQ-9 Depression Total Score: 17 07/13/2020 3:09 PM CD T documented as of this encounter Care Teams Armored Service Technician Relationship Specialty Start Date End Date Elsewhere, Pcp PCP - General Internal Medicine 08/31/21 documented as of this encounter
--- OUTSIDE RECORDS SUMMARY | 2022-03-16 14:59 | XMS_ITS | Encounter Summary ---
:1980 Author Organization [facility] Address [address] [place] [address] Care Team Providers Name Role Phone Elsewhere, Pcp Primary Care Provider Unavailable Encounter Details Date Type Department Care Team Description 12/14/2021 Orders Only [facility] Juan Carlos Cabrera, [place] P.A.-CLashawn [address] [id number] [phone] Social History Tobacco Use Types Packs/Day Years [...] How often do you attend restorationist or More than 4 times per year 11/09/2020 hindu services? Do you belong to any clubs or No 11/09/2020 organizations such as restorationist groups, unions, fraternal [...] documented as of this encounter Care Teams Semiconductor Processing Technician Relationship Specialty Start Date End Date Elsewhere, Pcp PCP - General Internal Medicine 08/31/21 documented as of this encounter
--- OUTSIDE RECORDS SUMMARY | 2022-03-16 14:59 | XMS_ITS | Encounter Summary ---
:1980 Author Organization [facility] Address [address] [place] [address] Care Team Providers Name Role Phone Elsewhere, Pcp Primary Care Provider Unavailable Encounter Details Date Type Department Care Team Description 10/04/2021 Orders Only [facility] Alia Roberts, Jhonatan Purvis C.N.P. [address] [place] Jhonatan [place] [phone] Social History Tobacco Use Types Packs/Day Years [...] or relatives? How often do you attend protestant or More than 4 times per year 11/09/2020 mosque services? Do you belong to any clubs or No 11/09/2020 organizations such as protestant groups, unions, fraternal or athletic groups, or [...] documented as of this encounter Care Teams Residential Sales Consultant Relationship Specialty Start Date End Date Elsewhere, Pcp PCP - General Internal Medicine 08/31/21 documented as of this encounter
--- OUTSIDE RECORDS SUMMARY | 2022-03-16 14:59 | XMS_ITS | Encounter Summary ---
:1980 Author Organization [facility] Address [address] [place] [address] Care Team Providers Name Role Phone Elsewhere, Pcp Primary Care Provider Unavailable Encounter Details Date Type Department Care Team Description 12/21/2021 Orders Only [facility] Alia Roberts, Jhonatan Purvis C.N.P. [address] [place] Jhonatan [place] [phone] Social History Tobacco Use Types Packs/Day Years [...] How often do you attend christianity or More than 4 times per year 11/09/2020 christianity services? Do you belong to any clubs or No 11/09/2020 organizations such as christianity groups, unions, fraternal [...] place to sleep or slept in a senior living (including now)? Education Answer Date Recorded What [...] documented as of this encounter Care Teams Egg Candler Relationship Specialty Start Date End Date Elsewhere, Pcp PCP - General Internal Medicine 08/31/21 documented as of this encounter
--- OUTSIDE RECORDS SUMMARY | 2022-03-16 14:59 | XMS_ITS | Encounter Summary ---
:1980 Author Organization [facility] Address [address] [place] [address] Care Team Providers Name Role Phone Elsewhere, Pcp Primary Care Provider Unavailable Reason for Visit Reason Comments Migraine Pt comes in for evaluation a nd treatment of a migraine. Has history of. She took Ketorolac at 0600 this morning and Ibuprofen and Diphenhydramine at 1400 without relief of sympt oms. She has photophobia, phonophobia, and nausea. Encounter Details Date Type Department Care Team Description 03/06/2022 Emergency [facility] Vaughn Lynch M igraine Headache Department C.N.P. (Primary Dx) [address] [place] [address] and [place], [place] Zabrina Banegas [id number] [place], [place] [phone] (Wo rk) Social History Tobacco Use [...] How often do you attend hinduism or More than 4 times per year 11/09/2020 hindu services? Do you belong to any clubs or No 11/09/2020 organizations such as hinduism groups, unions, fraternal [...] place to sleep or slept in a mcc (including now)? Education Answer Date Recorded What is the highest level of school you have Some college, n o degree 11/17/2019 completed or the highest degree you have received? Sex Assigned at Date Recorded Not on file documented as of this encounter Last Filed Vital Signs Vital Sign Reading Time Taken Comments Blood Pressure 95/52 03/06/2022 8:24 PM MANAGER GROCERY Pulse 84 03/06/2022 8:24 PM MANAGER [employer]ERY Temperature 36.6 ??C (97.9 ??F) 03/06/2022 6:46 PM MANAGER [employer]ERY Respiratory Rate 16 03/06/2022 8:24 PM MANAGER GR[employer]ERY Oxygen Saturation 99% 03/06/2022 8:24 PM MANAGER [employer]ERY Inhaled Oxygen Concentration - - Weight 100 kg (221 lb 5.5 oz) 03/06/2022 6:47 PM MANAGER [employer]ERY Height - - Body Mass Index 40.48 12/06/2020 4:44 PM CDT documented in this encounter Discharge Instructions Discharge InstructionsStVaughn chapin, C.N.P. - 03/06/2022 8:14 PM CST Continue to increase fluids, continue to take the medications he would have if your headache returns. Home to bed. Thank you for utilizing [facility] for your care! GER [employer]OCERY AttachmentsThe following attachments cannot be sent through Care Everywhere. Migraine Headache [id number] (Lithuanian)documented in this encounter Medications at Time of [...] mg tablet MOUTH EVERY SIX HOURS NEEDED ketorolac (TORADOL) 10 Take 1 tablet (10 mg 14 tablet 6 06/2021 mg tablet total) by mouth every 4 to 6 hours as needed for pain for 5 days. Do not exceed 4 tablets per day magnesium oxide (MAG-OX) TAKE 1 TABLET BY 120 tablet 2 07/192 07/19/2022 400 mg (241.3 mg MOUTH DAILY magnesium) tablet nicotine (NICODERM CQ) APPLY 1 PATCH TO THE 14 patch 0 12/202108/23/2022 21 mg/24 hr patch SKIN DAILY nicotine polacrilex CHEW 1 PIECE OF GUM 110 each 3 08/23/2022 (NICORETTE) 4 mg gum EVERY 1 TO 2 HOURS NEEDED OR DIRECTED FOR NICOTINE WITHDRAWAL SYMPTOMS olopatadine (PATANOL) INSTILL 1 DROP IN 15 mL 3 12/14/2022 0.1 % ophthalmic EACH EYE TWO [...] tablet 3 202110/04/2022 mg tablet MOUTH DAILY documented as of this encounter ED Notes Vaughn Lynch C.N.P. - 03/06/2022 7:09 PM CST Images from the original note were not included. CHIEF COMPLAINT/REASON FOR VISIT Migraine (Pt comes in for evaluation and treatment of a migraine. Has history of. She took Ketorolacat 0600 this morning and Ibuprofen and Diphenhydramine at 1400 without relief of symptoms. She has photophobia, phonophobia, and nausea.) HISTORY OF PRESENT ILLNESS Dulce Lei is a 41 y.o. who has a past medical history as below. Patient presents to the emergency Department with complaints of migraine headache. Patient presents to the emergency department with complaints of a migraine headache which started last evening. Patient is complaining of nausea but no vomiting. Headache is described as frontal and bilateral. This is identical to her previous headaches. The patient denies any paresthesias, weakness, or any focal type deficits. Patient states the last time she was here the cocktail medication they use worked well. Denies any other problems tonight. History provided by: Patient media promoter needed/used: no REVIEW OF SYSTEMS Constitutional: Negative for chills, diaphoresis, fatigue and fever. HENT: Negative for sinus pressure and sore throat. Respiratory: Negative for cough, chest tightness and shortness of breath. Cardiovascular: Negative for chest pain. Gastrointestinal: Positive for nausea. Negative for abdominal pain, constipation, diarrhea and vomiting. Genitourinary: Negative for dysuria, frequency and urgency. Musculoskeletal: Negative for arthralgias and myalgias. Skin: Negative for rash. Neurological: Positive for headaches. Negative for dizziness and weakness. Hematological: Negative for adenopathy. Does not bruise/bleed easily. All other systems reviewed and are negative. Allergies Reviewed in medical record Current Medications Reviewed in Medical Record. PAST HISTORY Medical Past Medical History: Diagnosis Date Asthma (HCC) Migraine Headache Patient Active Problem List Diagnosis Asthma (HCC) Obesity Body Mass Index 30-39.9 Adult Migraine With Aura Not Intractable Without Status Migrainosus Pap Smear Examination Intrauterine Device Status Care And Lactating Preeclampsia Severe (HCC) Shortness Of Breath Discomfort Chest Surgical Past Surgical History: Procedure Laterality Date CHOLECYSTECTOMY 11/2020 DILATION AND CURETTAGE N/A 03/26/2013 Dilation and curettage INJECTION N/A 03/28/2005 >Compound F Injection INJECTION N/A 04/21/2005 >Compound F Injection MYRINGOTOMY W/ TUBES N/A 06/27/1988 Bilateral myringotomy with placement of Paparella tubes. REPAIR FOOT PERONEUS BREVIS TENDON Right 12/11/2019 Procedure: PERONEUS BREVIS TENDON REPAIR FOOT-Right ankle peroneus brevis tendon repair, brostrom repair; Surgeon: Alexsander Marshall M.D.; Location: [facility] OR TONSILLECTOMY AND ADENOIDECTOMY N/A 04/17/1994 Tonsillectomy with adenoidectomy Family Reviewed in Medical Record Social History Social History Tobacco Use Smoking status: Every Day Packs/day: 0.50 Types: Cigarettes Start date: 2007 Smokeless tobacco: Never Tobacco comments: 1/2 or less pack/d, trying to quit Substance Use Topics Alcohol use: Not Currently Comment: occasional Social History Substance and Sexual Activity Drug Use Not Currently OBJECTIVE Initial Vital Signs / Weights Initial Vitals Temperature 03/06/22 1846 36.6 ??C Pulse Rate 03/06/22 1846 91 Heart Rate -- Resp Rate 03/06/22 1846 18 Blood Pressure 03/06/22 1846 119/88 SpO2 03/06/22 1846 99 % Pain Score 03/06/22 1847 7 Wt Readings from Last 3 Encounters: 03/06/22 100 kg 02/09/22 101 kg 02/07/22 102 kg PHYSICAL EXAMINATION Constitutional: Nursing note and vitals reviewed. No distress. HENT: Mouth/Throat: Oropharynx is clear and moist. Mucous membranes are moist. No tonsillar exudate. Eyes: Conjunctivae and EOM are normal. Pupils are equal, round, and reactive to light. Neck: Neck supple. Cardiovascular: Normal rate, regular rhythm, S1 normal, S2 normal and normal heart sounds. Pulses are strong and palpable. No murmur heard.Capillary refill: takes less than 3 seconds Pulmonary/Chest: Effort normal and breath sounds normal. There is normal air entry. No respiratory distress. Abdominal: Soft. Bowel sounds are normal. There is no abdominal tenderness. There is no rebound and no guarding. Musculoskeletal: General: Normal range of motion. Cervical back: Normal range of motion and neck supple. Lymphadenopathy: She has no cervical adenopathy. Neurological: Alert and oriented to person, place, and time. No cranial nerve deficit. NEUROLOGICAL: Mental status: Alert and oriented to person, place, and time. Follows simple and complex commands appropriately. Good fund of knowledge. Language normal including naming, comprehension, repetition, andfluency. CN: 2 - Pupils equal, round, and reactive to light and accommodation. Visual maloney intact. 3,4,6 - Extraocular muscles intact without nystagmus. 5 - Sensations preserved. 7 - Symmetry preserved. 8 - Conversational hearing intact. 9,10 - Palate elevation symmetric. 11 - Sternocleidomastoid and trapezius 5/5 strength. 12 - Tongue midline. No dysarthria. Motor: Normal tone and bulk. 5/5 strength in left LUE, 5/5 strength in LLE, 5/5 strength in RUE, 5/5strength in RLE. Drift - NO pronator drift LUE, LLE, RUE, or RLE Sensory: Intact to light touch. Coordination: Avkjik-zp-vjpk and jgta-vk-qpcu intact bilaterally without dysmetria and not disproportionate to weakness. Romberg negative. Skin: Skin is warm, dry and intact. Psychiatric: She has a normal mood and affect. DIAGNOSTICS ED COURSE Final Diagnoses: as of 03/06/222022 Migraine Headache INTERVENTIONS Medications sodium chloride 0.9 % injection 2-10 mL (has no administration in time range) NaCl 0.9 % bolus 1,000 mL (1,000 mL intravenous New Bag 03/06/221925) metoclopramide injection 10 mg (REGLAN) (10 mg intravenous Given 03/06/221926) diphenhydrAMINE injection 25 mg (BENADRYL) (25 mg intravenous Given 03/06/221925) ketorolac injection 15 mg (TORADOL) (15 mg intravenous Given 03/06/221926) MEDICAL DECISION MAKING IMPRESSION AND PLAN Patient presents to the emergency department with her migraine headache. Headache is unchanged. She also endorses photophobia and phonophobia. Nausea but no vomiting. She did take Toradol this morning and then ibuprofen and Benadryl this afternoon without relief of symptoms and it is for this reason she presented to the emergency department. Exam is entirely nonfocal with no neurological deficit appreciated. No drift. No weakness. Differential diagnosis for MEDRANO includes but not limited to; migraine headache, tension headache, viral syndrome, intracranial tumor/bleed/mass, SAH, hypertensive headache, meningitis, sinusitis, temporal arteritis. I do not believe this patient has an intracranial tumor not likely given she has no neurological deficits and the pain is not worse at night. I do not believe this patient has a SAH as the MEDRANO was no of sudden onset and she is noit hypertensive, and she has no family h/o of cerebral aneurysms and I do not believe this patient has a MEDRANO related to meningitis as she does no have fever, feel ill or have meningeal signs on exam. I do not believe that the MEDRANO is from sinusitis as the patient has no rhinorrhea or nasal congestion an no pain on palpation over sinuses. I do not believe the patient has temporal arteritis. There is no pain over the temporal arteries andno proximal muscle weakness or pain. Based on history, exam and diagnostic testing done on this visit, the most likely etiology of this patient's MEDRANO is migraine headache. Identical to previous migraine headaches. Patient improved after ketorlac, benadryl, reglan. Patient's pain is controlled, tolerating oral intake and appropriate for outpatient management with her regular OTC meds and clinic follow up. Discussion was held with red flag symptoms that should return them to the ED including worsening or no improvement in their symptoms, nausea, vomiting, fever, chills sweats worsening headache, neck pain, visual disturbance. I reviewed previous medical records including documentation from previous visits. DIAGNOSIS Final diagnoses: [G43.909] Migraine Headache DISPOSITION Home or Self Care DISCHARGE/TRANSFER VITAL SIGNS Vitals: 03/06/22 1846 BP: 119/88 Pulse: 91 Resp: 18 Temp: 36.6 ??C SpO2: 99% ED DISCHARGE MEDS ED Prescriptions None FOLLOW UP Follow-up with primary care as needed. Vaughn Lynch, DNP, MANGLE ROLL OPERATOR, [employer]-C, AGACNP-BC, ENP-C Emergency Medicine Vaughn Lynch, C.N.P. 03/06/222022 [employer]ER [employer]ERY documented in this encounter Plan of Treatment Not on filedocumented as of this encounter Visit Diagnoses Diagnosis Migraine Headache - Primary documented in this encounter Administered Medications Inactive Administered Medications - up to 3 most recent administrations Medication Order MAR Action Action Date Dose Rate Site diphenhydrAMINE injection 25 mg Given 03/06/2022 7:26 PM MANAGER GROCERY 25 mg (BENADRYL) 25 mg, intravenous, Once, On 03/06/22 at 1912, For 1 dose ketorolac injection 15 mg (TORADOL) Given 03/06/2022 7:27 PM MANAGER GROCERY 15 mg 15 mg, intravenous, Once, On 03/06/22 at 1912, For 1 dose, Adult IV push rate: Over 15 seconds. Peds IV push rate: Over 1 minute. 60 mg dose only for IM, not recommended for IV. metoclopramide injection 10 mg (REGLAN) Given 03/06/2022 7:27 PM MANAGER GROCERY 10 mg 10 mg, intravenous, Once, On 03/06/22 at 1912, For 1 dose NaCl 0.9 % bolus 1,000 mL New Bag 03/06/2022 7:26 PM MANAGER GROCERY 1,000 mL 1000 mL/hr 1,000 mL, intravenous, at 1,000 mL/hr, Administer over 1 Hours, Once, On 03/06/22 at 1912, For 1 dose sodium chloride 0.9 % injection 2-10 mL 2-10 mL, intravenous, As needed, line care, Starting o n 03/06/22 at 1910 documented in this encounter Active and Recently Administered Medications Times are shown in MANAGER GROCERY. Scheduled Medication Order 03/04/2022 03/05/2022 03/06/2022 diphenhydrAMINE injection 25 mg (BENADRYL) (COMPLETED) 1925 (Given - Provider: Anselmo Armenta R.N.) 25 mg, intravenous, Once, On 03/06/22 at 191, For 1 dose ketorolac injection 15 mg (TORADOL) (COMPLETED) 1926 (Given - Provider: Ansemlo Armenta R.N.) 15 mg, intravenous, Once, On Sun 2 at 1911, For 1 dose, Adult IV push rate: Over 15 seconds. Peds IV push rate: Over 1 minute. 60 mg dose only for IM, not recommended for IV. metoclopramide injection 10 mg (REGLAN) (COMPLETED) 1926 (Given - Provider: Anselmo Armenta R.N.) 10 mg, intravenous, Once, On 03/06/22 at 191, For 1 dose NaCl 0.9 % bolus 1,000 mL (COMPLETED) 1925 (New Bag - Provider: Anselmo Armenta R.N.)2023 (Stopped - Provider: Anselmo Armenta R.N.) 1,000 mL, intravenous, at 1,000 mL/hr, A dminister over 1 Hours, Once, On 03/06/22 at 1912, For 1 dose PRN Medication Order 03/04/2022 03/05/2022 03/06/2022 sodium chloride 0.9 % injection 2-10 mL(Linked Group 1) 2-10 mL, intravenous, As needed, line care, Starting on 02/16 at 1910 Linked Groups Order Group 1: Place peripheral IV: No upper extremity site restrictions (COMPLETED) Upper extremity site restriction: No upp er extremity site restrictions
Quantity of PIVs requested: One
STAT, Once, On 03/06/22 at 1911, For 1 occurrence And sodium chloride 0.9 % injection 2-10 mLJump to med 2-10 mL, intravenous, As needed, line ca re, Starting on 03/06/22 at 1910 documented in this encounter Additional Health Concerns Assessment Noted Time PHQ-9 Depression Total Score: 17 07/13/2020 3:09 PM CD T documented as of this encounter Care Teams Flatbed [employer] Driver Relationship Specialty Start Date End Date Elsewhere, Pcp PCP - General Internal Medicine 08/31/21 documented as of this encounter
--- OUTSIDE RECORDS SUMMARY | 2022-03-16 14:59 | XMS_ITS | Encounter Summary ---
:1980 Author Organization [facility] Address [address] [place] [address] Care Team Providers Name Role Phone Elsewhere, Pcp Primary Care Provider Unavailable Reason for Referral Outpatient (Routine) - Authorized Specialty Diagnoses / Procedures Referred By Contact Refer red To Contact Ophthalmology Diagnoses Astigmatism Irregular Right Ariana Selby, [facility] [address], [place] [address] Referral ID Status Reason Start Date Expiration Date Visits V isits Requested Authorized [id number] Authorized 08/30/2021 08/30/2022 1 1 Encounter Details Date Type Department Care Team Description 08/30/2021 Community Orders [facility] Cr[facility]mer, Astigmatism [address] [place] [address] [address], (Primary Dx) [phone] [place] [address] Social History Tobacco Use Types Packs/Day Years [...] or relatives? How often do you attend jainism or More than 4 times per year 11/09/2020 faith services? Do you belong to any clubs or No 11/09/2020 organizations such as jainism groups, unions, fraRewardLoop or athletic groups, or school groups? How [...] as of this encounter Plan of Treatment Scheduled Referrals Name Type Priority Associated Order Schedule Diagnoses Ophthalmology Referral Outpatient Referral Routine Astigmatism Expected: Irregular Right 08/30/2021 (Approximate), Expires: 11/30/2022 documented as of this encounter Visit Diagnoses Diagnosis Astigmatism Irregular Right - Primary documented in this encounter Additional Health Concerns Assessment Noted Time PHQ-9 Depression Total Score: 17 07/13/2020 3:09 PM CD T documented as of this encounter Care Teams Lathmaker Relationship Specialty Start Date End Date Elsewhere, Pcp PCP - General Internal Medicine 08/31/21 documented as of this encounter
--- OUTSIDE RECORDS SUMMARY | 2022-03-16 14:59 | XMS_ITS | Encounter Summary ---
:1980 Author Organization [facility] Address [address] [place] [address] Care Team Providers Name Role Phone Elsewhere, Pcp Primary Care Provider Unavailable Reason for Visit Reason Comments COVID Nurse Line Encounter Details Date Type Department Care Team Description 11/16/2021 Nurse Triage Division of [facility] Susan Riggs Nurse Line Internal Medicine, , R.[place], in [place], [place] [address] [place] [address] Social History Tobacco Use Types Packs/Day Years [...] or relatives? How often do you attend mormon or More than 4 times per year 11/09/2020 jew services? Do you belong to any clubs or No 11/09/2020 organizations such as mormon groups, unions, fraternal or athletic groups, or [...] to pay for the very basics like ROLIw hat hard 11/09/2020 food, housing, medical care, [...] place to sleep or slept in a [facility] (including now)? Education Answer Date Recorded What is the highest level of school you have Some college, n o degree 11/17/2019 completed or the highest degree you have received? Sex Assigned at Date Recorded Not on file documented as of this encounter Miscellaneous Notes Result Encounter Note - Citlali Keyes R.N. - 11/16/2021 5:37 PM CDT Your patient has tested positive for SARS-CoV-2, the virus that causes COVID-19. Every patient that tests positive receives initial guidance sent via an online letter, which is sent by mail or the patient portal depending on patient preferences. ACTION NEEDED: Please update the patient's problem list and medication list to ensure an accurate and timely evaluation for COVID-19 treatments, including various medications and Remote Patient Monitoring (RPM). If eligible for COVID-19 treatments or RPM, your patient will be contacted by a designated team of nurses to coordinate the care. For questions, contact the Likely Covid Care Team (CCT): Pager: [phone] In basket: P [facility] COVID-19 POSITIVE Covid Care e-consult NOTE: At the time of testing, patients are instructed to obtain the result by calling the [employer] result line or by checking their online services account. Telephone Encounter - Crow Riggs R.N. - 11/16/2021 4:09 PM CDT Caller is Pt's mother. Pt present during call. Pt is positive for COVID via at home test. No emergent symptoms present at this time. Interested in anti-viral therapies. hand marker added positive result to chart for review by the [facility]. Your coronavirus nasal swab came back positive for SARS-CoV-2, the virus that causes Covid-19. This means that you have COVID-19 and can spread it to others. You must isolate at home to keep others safe and prevent the spread of the virus. Treatment options are prioritized for patients with COVID-19 that are at high risk for severe disease or hospitalization. Eligible patients will be contacted by phone in 24 to 48 hours after their testresult has been received with information on what medications they may be eligible for. Patients whoare not considered high risk will not be called by the COVID care team. These medications have received FDA approval under Emergency Use Authorization, which dictates eligibility criteria and patient consent documentation requirements. To help us best assess your risk, please log in to your portal to review messages from your care team regarding your COVID-19 positive test result and to ensure that your medications and allergies are correct. If you have questions regarding your specific eligibility, please contact your primary care provider. How long do you need to isolate at home? Recommendations for how to care for yourself and others including isolation recommendations are available at https://www.cdc.gov/coronavirus/2019-ncov/. Follow the longest isolation period recommended by your health care provider, employer, or Public Health Department. Isolate at home with minimal to no contact with other people living in your house until all of the following are true: It has been [...] indoor spaces when community transmission is high. If you continue to have a fever or if your symptoms are not improving after 10 days, contact your primary care provider for next steps. Follow the longest isolation period recommended by your health care provider, work, school or Public Health Department. What can you do to take care of yourself at home? Getting plenty of rest, staying hydrated and taking over the counter medications can help you feel better. You may use acetaminophen, ibuprofen or naproxen to control fever, muscle aches, headaches andsore throat. You may use other over the counter medications as needed for cough and congestion. What are requirements to return to work and school? Contact your school or employer to let them know of your positive test. Each school and employer have their own requirements for when you can return in person. Get approvalbefore returning in person. Health care workers may have more requirements. If you are a health care worker, talk with your Employee Occupational Health Department for recommendations. You may provide the letter below to anyone needing documentation of your positive test result. When to Seek Emergency Care If you are having chest pain, chest tightness, shortness of breath, feel like you could pass out or collapse, or feel that you are unable to care for yourself at home, call 911. These symptoms could petty medical emergency. If you choose to go to the Emergency Department, please travel by private car, wear a mask and call ahead to let the Emergency Department know you are currently positive for covid-19. Avoid public transportation. Other Health Conditions If you have a serious underlying medical condition such as heart disease, lung disease or decreased functioning of your immune system, talk with your primary care provider to decide if you need a longer isolation period or additional monitoring. You may also have additional treatment options availableto you. Follow-up Services What should you do if you do not have a primary care provider? Get a primary care provider now by calling the clinic of your choice. If you would like to receive primary care at one of our [facility] or [facility] locations, call [phone]. What should you do if you have upcoming medical appointments? Reschedule any non-urgent in-person medical appointments planned within the next 10 days. If the medical appointment is urgent, or between 10 and 20 days away, contact your care team before going to your scheduled in-person appointment. Information for Family Members and Close Contacts Defining Close Contacts [facility] Infectious Disease defines close contact when either person was not wearing a mask and the non-infected person Lives with an infected person OR has been within 6 feet on an infected person for a total of 15 minutes or more over a 24-hour periodOR had direct contact with secretions from an infected person such as being coughed on The [facility] department will contact your family for a contact tracing report. Follow the recommendations of your local public health department, school, etc. Defining Vaccination Status is Up-to Date Individuals are considered up-to-date with COVID-19 vaccines: Immediately after receiving boosters recommended for their age group and health status If they have completed the primary series of vaccine and are not yet eligible for a booster. What should you tell your close contacts who are NOT Up-to-Date with COVID-19 Vaccine? . Quarantine for 5 days after last contact. After quarantine, wear a mask for 5 more days. Continue towear a mask in indoor spaces when community transmission is high. Get tested for COVID-19 five days after the close contact exposure. If they develop symptoms, they need to quarantine and get tested for COVID-19. What should you tell your close contacts if they ARE Up-to-Date with COVID-19 Vaccine? . Wear a mask for 10 days following the close contact exposure. They do not need to quarantine if they do not have symptoms. Get tested for COVID-19 five days after the close contact exposure. If they develop symptoms, they need to quarantine and get tested for COVID-19. What should you tell your close contacts if they HAVE PREVIOUSLY BEEN INFECTED WITH COVID-19? If someone was infected with COVID-19 in the last 90 days but has fully recovered and does not have symptoms, then no quarantine is needed. If they have or develop symptoms, contact their provider. If close contacts test positive for COVID-19, they should follow instructions given to them by theircare teams. If close contacts are [facility] employees, contractors, [facility] [employer] students, or volunteers, they should call Occupational Health Services at [phone]. Continue to Stay Safe Please continue to follow safe COVID-19 recommendations even after isolation is done. Make sure thatyou and other family members have received the COVID-19 vaccine. You can schedule a COVID-19 vaccination appointment through Patient Online Services or by calling your primary care provider. You can also use [email or web address] to locate a convenient community vaccination site. You may get any dose of aCOVID-19 vaccine once you are done being isolated. documented in this encounter Plan of Treatment Not on filedocumented as of this encounter Procedures Procedure Name Priority Date/Time Associated Diagnosis Comme nts EXTM HOME SARS Routine 11/16/2021 Results for t his CORONAVIRUS-2 procedure are in the (COVID-19) ANTIGEN, V result s section. documented in this encounter Results (ABNORMAL) EXT Home SARS Coronavirus-2 (COVID-19) Antigen, Varies (11/16/2021) [facility] gist Method Time Signature EXT Home Presumptive Presumptive OTHER SARS-CoV-2 Positive (A) Negative (SPECIFY IN Antigen PHARMACY MESSENGER) Specimen (Source) Anatomical Location Collection Method / Collectio n Time Received Time / Laterality Volume Swab 11/16/2021 Historical Provider LAB MICROBIOLOGY - GENERAL O RDERABLES Performing Organization Address City/State/ZIP Code Phon e Number OTHER (SPECIFY IN PHARMACY MESSENGER) OTHER (SPECIFY IN PHARMACY MESSENGER) N/A documented in this encounter Visit Diagnoses Not on filedocumented in this encounter Additional Health Concerns Infection Onset Date Last Indicated Resolved Time COVID19 11/16/2021 11/16/2021 12/06/2021 4:46 AM CDT Assessment Noted Time PHQ-9 Depression Total Score: 17 07/13/2020 3:09 PM CD T documented as of this encounter Care Teams Transfer Clerk Relationship Specialty Start Date End Date Elsewhere, Pcp PCP - General Internal Medicine 08/31/21 documented as of this encounter
--- OUTSIDE RECORDS SUMMARY | 2022-03-16 14:59 | XMS_ITS | Encounter Summary ---
:1980 Author Organization [facility] Address [address] [place] [address] Care Team Providers Name Role Phone Elsewhere, Pcp Primary Care Provider Unavailable Reason for Visit Reason Comments Migraine 41 year old female admits wi th concerns of migraine starting last night at 1130 pm Pt took Ibuprofen an d Benadryl prior to coming to the ER without relief Encounter Details Date Type Department Care Team Description 12/12/2021 Emergency [facility] Sulma Patel Migraine Headache Department A, BAR USEFUL OR BUSSER, C.N.P., (Primary Dx) [address] [place] [address] R.N. [place], [place] [address] [address] [place], [place] [phone] (Wo rk) Social History Tobacco Use Types [...] or relatives? How often do you attend catholic or More than 4 times per year 11/09/2020 sabianism services? Do you belong to any clubs or No 11/09/2020 organizations such as catholic groups, unions, fraternal or athletic groups, or [...] Sign Reading Time Taken Comments Blood Pressure 118/83 12/12/2021 4:15 PM CDT Pulse 53 12/12/2021 4:15 PM CDT Temperature 36.6 ??C (97.9 ??F) 12/12/2021 3:11 PM CDT Respiratory Rate 16 12/12/2021 4:15 PM CDT Oxygen Saturation 99% 12/12/2021 4:15 PM CDT Inhaled Oxygen Concentration - - Weight 96 kg (211 lb 10.3 oz) 12/12/2021 3:12 PM CDT Height - - Body Mass Index 38.71 12/06/2020 4:44 PM CDT documented in this encounter Discharge Instructions Discharge InstructionsSulma Odom APRN, R.N. - 12/12/2021 3:29 PM CDT Plan Schedule follow up to discuss migraine management with primary care/neurology. Return to emergency department for worsening symptoms AttachmentsThe following attachments cannot be sent through Care Everywhere. Migraine Headache Goup-bi-Zjzu (Paraguayan)documented in this encounter Medications at Time of [...] 07/19/[address] capsule MOUTH DAILY fluticasone propionate Administer 2 sprays 0 (FLONASE) 50 into each nostril mcg/actuation nasal daily. spray hydrocortisone INSERT 1 SUPPOSITORY 30 each [...] TABLETS PER 24 HOURS PARoxetine (PAXIL) 10 TAKE 1 TABLET BY 90 tablet 0 11/09/19 22 11/08/2022 mg tablet MOUTH DAILY topiramate (TOPAMAX) 50 TAKE 1 TABLET BY 90 tablet 3 202110/04/2022 mg tablet MOUTH DAILY metroNIDAZOLE (FLAGYL) TAKE 1 TABLET BY 14 tablet 3 021 02/05/2022 500 mg tablet MOUTH TWO TIMES A DAY acetaminophen-codeine TAKE 1 TABLET BY 15 tablet [...] TABLETS IN TWENTY-FOUR HOURS cetirizine (ZyrTEC) 10 Take 10 mg by mouth 0 08/0 08/202003/06/2022 mg tablet daily. cetirizine (ZyrTEC) 10 TAKE [...] 1 SPRAY IN EACH 16 g 3 07/202101/05/2022 (FLONASE) 50 NOSTRIL DAILY mcg/actuation nasal spray [...] TAKE 1 TABLET BY 7 tablet 0 021 01/05/2022 mg tablet MOUTH DAILY sertraline (ZOLOFT) 50 TAKE 1 TABLET BY 30 tablet 0 01/05/2022 mg tablet MOUTH DAILY documented as of this encounter ED Notes Sulma Odom APRN, R.N. - 12/12/2021 3:19 PM CDT SUBJECTIVE CHIEF COMPLAINT/REASON FOR VISIT Migraine (41 year old female admits with concerns of migraine starting last night at 1130 pm Pt tookIbuprofen and Benadryl prior to coming to the ER without relief) HISTORY OF PRESENT ILLNESS History provided by: Patient and medical records Dulce Lei is a very pleasant 41 y.o. with past medical history of migraines who presents via private car from home for evaluation of headache. Onset 7 pm last night, constant, gradually worsening. Located to front of head. This is not the worst headache of her life she has had similar headaches in the past. Patient took benadryl and ibuprofen at home earlier today without relief. She has photophobia and N/V x 1 today. No other acute medical concerns. REVIEW OF SYSTEMS Constitutional: Negative for chills and fever. HENT: Negative for congestion and sore throat. Eyes: Positive for photophobia. Respiratory: Negative for chest tightness and shortness of breath. Cardiovascular: Negative for chest pain and palpitations. Gastrointestinal: Positive for nausea and vomiting. Negative for diarrhea. Genitourinary: Negative for dysuria and hematuria. Musculoskeletal: Negative for neck pain. Skin: Negative for rash. Neurological: Positive for headaches. Negative for dizziness and weakness. Psychiatric/Behavioral: The patient is not nervous/anxious. OBJECTIVE Initial Vitals [12/12/21 1511] Temperature Pulse Rate Heart Rate Resp Rate Blood Pressure SpO2 36.6 ??C 61 -- 16 (!) 134/94 98 % Pain Score 7 PHYSICAL EXAMINATION Constitutional: Nursing note and vitals reviewed. She is cooperative. HENT: Head: Atraumatic. Mouth/Throat: Oropharynx is clear and moist. Mucous membranes are moist. Eyes: Conjunctivae are normal. Neck: Neck supple. Cardiovascular: Normal rate and regular rhythm. Capillary refill: takes less than 3 seconds Pulmonary/Chest: Effort normal. No respiratory distress. Abdominal: Normal appearance. Musculoskeletal: Cervical back: Neck supple. Comments: Moves all extremities Neurological: Alert. Normal speech. Skin: No rash (on exposed skin) noted. ASSESSMENT/PLAN Ddx: migraine, tension headache, SAH, meningitis, LOG SORTER vasculitis, mass lesion, encephalitis, temporal arteritis, acute closed angle glaucoma, occipital or trigeminal neuralgia, intracerebral hemmorhage, sinusitis Dulce Lei is a very pleasant 41 y.o. who presents for evaluation of headache. See HPI/ED course. Patient seen in ED frequently for headaches/migraines. She reports this pain is similar to those visits before. Suspect migraine with photophobia, frontal head pain, and nausea/vomiting. Treated with IVF, toradol, Reglan, benadryl in ED. upon reassessment patient verbalized improvement of headache to 3 and tolerable. In agreement with discharge home. Patient stable to discharge home. Recommendedfollow-up with primary care/Neurology for frequent migraine. I reviewed previous medical records including documentation from previous visits.CPR: No CPR performed. Final Diagnoses: as of 12/12/211916 Migraine Headache Sulma Odom APRN, R.N. 12/12/211917 documented in this encounter Plan of Treatment Not on filedocumented as of this encounter Visit Diagnoses Diagnosis Migraine Headache - Primary documented in this encounter Administered Medications Inactive Administered Medications - up to 3 most recent administrations Medication Order MAR Action Action Date Dose Rate Site diphenhydrAMINE injection 25 mg Given 12/12/2021 3:31 PM CDT 25 mg (BENADRYL) 25 mg, intravenous, Once, On 12/12/21 at 1522, For 1 dose ketorolac injection 15 mg (TORADOL) Given 12/12/2021 3:30 PM CDT 15 mg 15 mg, intravenous, Once, On 12/12/21 at 1521, For 1 dose, Adult IV push rate: Over 15 seconds. Peds IV push rate: Over 1 minute. 60 mg dose only for IM, not recommended for IV. metoclopramide injection 5 mg (REGLAN) Given 12/12/2021 3:30 PM CDT 5 mg 5 mg, intravenous, Once, On 12/12/21 at 1521, For 1 dose NaCl 0.9 % bolus 1,000 mL New Bag 12/12/2021 3:29 PM CDT 1,000 mL 2000 mL/hr 1,000 mL, intravenous, at 2,000 mL/hr, Administer over 30 Minutes, Once, On Mon12/12/21 at 1521, For 1 dose sodium chloride 0.9 % injection 10 mL 10 mL, intravenous, As needed, line care, Starting on Mon12/12/21 at 1519, Peripheral Intravenous Catheter and Rapid Infusion Cat heter, prior to blood sampling, post blood transfusion or post blood samplin g sodium chloride 0.9 % injection 3 mL 3 mL, intravenous, As needed, line care, Starting on Mon12/12/21 at 1519, Prior to and following infusion and between multi ple consecutive infusions: sodium chloride 0.9 % injection sodium chloride 0.9 % injection 3 mL 3 mL, intravenous, Every 12 hours scheduled, First dos e on Mon12/12/21 at 2100, Peripheral Intravenous Catheter and Rapi d Infusion Catheter, when no infusion to maintain patency documented in this encounter Active and Recently Administered Medications Times are shown in CDT. Scheduled Medication Order 12/10/2021 12/11/2021 12/12/2021 diphenhydrAMINE injection 25 mg (BENADRYL) (COMPLETED) 153 (Given - Provider: Sandhya Ross R.N.) 25 mg, intravenous, Once, On Mon12/12/21 at 1522, For 1 dose ketorolac injection 15 mg (TORADOL) (COMPLETED) 1530 (Given - Provider: Sandhya Ross R.N.) 15 mg, intravenous, Once, On Mon12/12/21 at 1521, For 1 dose, Adult IV push rate: Over 15 seconds. Peds IV push rate: Over 1 minute. 60 mg dose only for IM, not recommended for IV. metoclopramide injection 5 mg (REGLAN) (COMPLETED) 1530 (Given - Provider: Sandhya Ross R.N.) 5 mg, intravenous, Once, On Mon12/12/21 at 1521, For 1 dose NaCl 0.9 % bolus 1,000 mL (COMPLETED) 1529 (New Bag - Provider: Sandhya Ross R.N.)1623 (Stopped - Provider: Sandhya Ross R.N.) 1,000 mL, intravenous, at 2,000 mL/hr, A dminister over 30 Minutes, Once, On Mon12/12/21 at 1521, For 1 dose sodium chloride 0.9 % injection 3 mL 3 mL, intravenous, Every 12 hours schedu led, First dose on [place] 12/12/21 at 2100, Peripheral Intravenous Catheter and Rapid Infusion Catheter, when no infusion to maintain patency PRN Medication Order 12/10/2021 12/11/2021 12/12/2021 sodium chloride 0.9 % injection 10 mL 10 mL, intravenous, As needed, line care , Starting on [place] 12/12/21 at 1519, Peripheral Intravenous Catheter and Rapid Infusion Catheter, prior to blood sampling, post blood transfusion or post blood sampling sodium chloride 0.9 % injection 3 mL 3 mL, intravenous, As needed, line care, Starting on [place] 12/12/21 at 1519, Prior to and following infusion and between multiple consecutive infusions: sodium chloride 0.9 % injection documented in this encounter Additional Health Concerns Assessment Noted Time PHQ-9 Depression Total Score: 17 07/13/2020 3:09 PM CD T documented as of this encounter Care Teams Professor Of Vegetable Science Relationship Specialty Start Date End Date Elsewhere, Pcp PCP - General Internal Medicine 08/31/21 documented as of this encounter
--- OUTSIDE RECORDS SUMMARY | 2022-03-16 14:59 | XMS_ITS | Encounter Summary ---
:1980 Author Organization [facility] Address [address] [place] [address] Care Team Providers Name Role Phone Elsewhere, Pcp Primary Care Provider Unavailable Reason for Visit Reason Comments Headache Hx of migraines. C/o typica l migraine started this morning has taken ibuprofen at 1800 600mg and benadryl (unknown dose) childrens at 1800 with no relief. She states she johnston s come to the ED in the past and given an injection for pain and nause a. She is unable to take zofran due to increased nausea. Encounter Details Date Type Department Care Team Description 08/31/2021 Emergency [facility] Jose Melissa, Migraine Headache Department P.A.-C. (Primary Dx) [id number] [address] [place], [place] [phone] Social History Tobacco Use Types Packs/Day Years [...] or relatives? How often do you attend taoism or More than 4 times per year 11/09/2020 sabianist services? Do you belong to any clubs or No 11/09/2020 organizations such as taoism groups, unions, fra[employer]hesiveFT or athletic groups, or school groups? How [...] Sign Reading Time Taken Comments Blood Pressure 128/87 08/31/2021 8:45 PM CDT Pulse 80 08/31/2021 8:45 PM CDT Temperature 36.6 ??C (97.9 ??F) 08/31/2021 8:43 PM CDT Respiratory Rate 16 08/31/2021 8:43 PM CDT Oxygen Saturation 98% 08/31/2021 8:45 PM CDT Inhaled Oxygen Concentration - - Weight 95.5 kg (210 lb 8.6 oz) 08/31/2021 8:44 PM CDT Height - - Body Mass Index 38.51 12/06/2020 4:44 PM CDT documented in this encounter Discharge Instructions AttachmentsThe following attachments cannot be sent through Care Everywhere. Migraine Headache (Lebanese)documented in this encounter Medications at Time of Discharge Medication Sig Dispensed Refills Start Date End Date acetaminophen (TYLENOL) Take 650 mg by mouth 0 325 mg tablet every 4 (four) hours as needed for pain. docusate sodium 0 06/23/2021 (COLACE) 100 mg [...] 0 08/202003/06/2022 mg tablet daily. DULoxetine (CYMBALTA) 20 mg. 0 07/19/[address] capsule magnesium oxide 0 07/19/2021 (MAG-OX) 400 mg [...] documented as of this encounter ED Notes Jose Melissa P.A.-C. - 08/31/2021 9:12 PM CDT SUBJECTIVE CHIEF COMPLAINT/REASON FOR VISIT Headache (Hx of migraines. C/o typical migraine started this morning has taken ibuprofen at 1800 600mg and benadryl (unknown dose) childrens at 1800 with no relief. She states she has come to the ED in the past and given an injection for pain and nausea. She is unable to take zofran due to increasednausea. ) HISTORY OF PRESENT ILLNESS 41-year-old female with history of migraine headaches presents ER with complaints of typical migraine. Patient states the pain started this morning and she has taken ibuprofen without significant relief. She denies any or changes symptoms compared to previous episodes. She requests Toradol and nausea m edication As this has been helpful before. REVIEW OF SYSTEMS Constitutional: Negative for appetite change and fever. HENT: Negative for ear pain, rhinorrhea and sore throat. Eyes: Negative for visual disturbance. Respiratory: Negative for cough, shortness of breath and wheezing. Cardiovascular: Negative for chest pain. Gastrointestinal: Negative for abdominal pain, diarrhea and vomiting. Genitourinary: Negative for dysuria and frequency. Musculoskeletal: Negative for back pain. Skin: Negative for rash. Neurological: Positive for headaches. Negative for dizziness, tremors, seizures, syncope, facial asymmetry, speech difficulty, weakness, light-headedness, numbness and loss of balance. All other systems reviewed and are negative. OBJECTIVE Initial Vitals Temperature Pulse Rate Heart Rate Resp Rate Blood Pressure SpO2 08/31/21204208/31/212042 -- 08/31/21204208/31/21204208/31/212042 36.6 ??C 76 16 128/87 98 % Pain Score 08/31/212043 6 PHYSICAL EXAMINATION Constitutional: Nursing note and vitals reviewed. HENT: Head: Normocephalic and atraumatic. Nose: Nose normal. Mouth/Throat: Oropharynx is clear and moist. Mucous membranes are moist. Neck: Neck supple. Cardiovascular: Normal rate, regular rhythm, S1 normal, S2 normal and normal heart sounds. Pulmonary/Chest: Effort normal and breath sounds normal. Abdominal: Soft. Bowel sounds are normal. There is no abdominal tenderness. Musculoskeletal: Cervical back: Neck supple. Neurological: Alert and oriented to person, place, and time. She has normal sensation and intact cranial nerves. GCS eye subscore is 4. GCS verbal subscore is 5. GCS motor subscore is 6. Speech is not aphasic, dysarthric or slurred.Has unimpaired finger to nose. Gait normal. Skin: Skin is warm. ASSESSMENT/PLAN IMPRESSION AND PLAN Patient appears well. Based on history and physical exam I do not suspect acute stroke. Patient appears to be suffering from her typical migraine and request Toradol and anti emetic which are normally helpful for her. She is well established PCP and follow-up with the same. She return to the ER if newsymptoms develop, current symptoms worsen, symptoms fail to improve, patient becomes concerned. Patient discharged in good condition. I reviewed previous medical records including documentation from previous visits. Final Diagnoses: as of 09/02/21105 Migraine Headache Jose Melissa P.A.-C. 09/02/21105 documented in this encounter Plan of Treatment Not on filedocumented as of this encounter Visit Diagnoses Diagnosis Migraine Headache - Primary documented in this encounter Administered Medications Inactive Administered Medications - up to 3 most recent administrations Medication Order MAR Action Action Date Dose Rate Site ketorolac injection 30 mg Given 08/31/2021 9:03 PM 30 mg Left Dorsogluteal (TORADOL) CDT 30 mg, intramuscular, Once, On Mon08/31/21 at 2057, For 1 dose, Adult IV push rate: Over 15 seconds. Peds IV push rate: Over 1 minute. 60 mg dose only for IM, not recommended for IV. prochlorperazine injection 10 Given 08/31/2021 9:04 PM CDT 10 mg Left Dorsogluteal mg (COMPAZINE) 10 mg, intramuscular, Once, On Mon08/31/21 at 2057, For 1 dose documented in this encounter Active and Recently Administered Medications Times are shown in CDT. Scheduled Medication Order 08/29/2021 08/30/2021 08/31/2021 ketorolac injection 30 mg (TORADOL) (COMPLETED) 2102 (Given - Provider: Chuck Walker R.N.) 30 mg, intramuscular, Once, On Mon at 2057, For 1 dose, Adult IV push rate: Over 15 seconds. Peds IV push rate: Over 1 minute. 60 mg dose only for IM, not recommended for IV. prochlorperazine injection 10 mg (COMPAZINE) (COMPLETED) 2103 (Given - Provider: Chuck Walker, R.N.) 10 mg, intramuscular, Once, On Tu08/31/21 at 2057, For 1 dose documented in this encounter Additional Health Concerns Assessment Noted Time PHQ-9 Depression Total Score: 17 07/13/2020 3:09 PM CD T documented as of this encounter Care Teams Network Systems Integrator Relationship Specialty Start Date End Date Elsewhere, Pcp PCP - General Internal Medicine 08/31/21 documented as of this encounter
--- OUTSIDE RECORDS SUMMARY | 2022-03-16 14:59 | XMS_ITS | Encounter Summary ---
:1980 Author Organization [facility] Address [address] [place] [address] Care Team Providers Name Role Phone Elsewhere, Pcp Primary Care Provider Unavailable Reason for Visit Reason Comments Sinus Problem Pt. Had sinus infection last week. Finished zpack. C/o right-sided sinus pain with congestion. Encounter Details Date Type Department Care Team Description 02/07/2022 Emergency [facility] Jose Melissa, Pain Teeth (Primary Dx) Department P.A.-C. [address] [address] [place], [place] [phone] Social History Tobacco Use Types Packs/Day [...] Sign Reading Time Taken Comments Blood Pressure 111/81 02/07/2022 9:30 PM CDT Pulse 84 02/07/2022 9:30 PM CDT Temperature 36.8 ??C (98.2 ??F) 02/07/2022 9:22 PM CDT Respiratory Rate - - Oxygen Saturation 98% 02/07/2022 9:30 PM CDT Inhaled Oxygen Concentration - - Weight 102 kg (224 lb 6.9 oz) 02/07/2022 9:23 PM CDT Height - - Body Mass Index 41.05 12/06/2020 4:44 PM CDT documented in this encounter Discharge Instructions AttachmentsThe following attachments cannot be sent through Care Everywhere. Dental Abscess (Setswana)documented in this encounter Medications at Time of [...] encounter ED Notes Jose Melissa P.A.-C. - 02/07/2022 9:42 PM CDT Images from the original note were not included. SUBJECTIVE CHIEF COMPLAINT/REASON FOR VISIT Sinus Problem (Pt. Had sinus infection last week. Finished zpack. C/o right- sided sinus pain with congestion. ) HISTORY OF PRESENT ILLNESS 41-year-old female complains of right maxillary sinus pressure as well as right upper tooth pain over the last week. Patient had been placed on Z-Dragan for possible sinusitis, but symptoms have not relieved. She is not found anything else that seems to make the symptoms better or worse. She denies facial swelling, redness, or fever. REVIEW OF SYSTEMS Constitutional: Negative for appetite change and fever. HENT: Negative for ear pain, rhinorrhea and sore throat. Negative except for HPI Eyes: Negative for visual disturbance. Respiratory: Negative for cough, shortness of breath and wheezing. Cardiovascular: Negative for chest pain. Gastrointestinal: Negative for abdominal pain, diarrhea and vomiting. Genitourinary: Negative for dysuria and frequency. Musculoskeletal: Negative for back pain. Skin: Negative for rash. Neurological: Negative for headaches. All other systems reviewed and are negative. OBJECTIVE Initial Vitals [02/07/222121] Temperature Pulse Rate Heart Rate Resp Blood Pressure SpO2 36.8 ??C 89 -- -- 117/89 99 % Pain Score 6 PHYSICAL EXAMINATION Constitutional: Nursing note and vitals reviewed. HENT: Head: Normocephalic and atraumatic. Nose: Nose normal. Right sinus exhibits no maxillary sinus tenderness and no frontal sinus tenderness. Left sinus exhibits no maxillary sinus tenderness and no frontal sinus tenderness. Mouth/Throat: Uvula is midline and oropharynx is clear and moist. Mucous membranes are moist. Neck: Neck supple. Cardiovascular: Normal rate, regular rhythm, S1 normal, S2 normal and normal heart sounds. Pulmonary/Chest: Effort normal and breath sounds normal. Abdominal: Soft. Bowel sounds are normal. There is no abdominal tenderness. Musculoskeletal: Cervical back: Neck supple. Neurological: Alert and oriented to person, place, and time. Skin: Skin is warm. ASSESSMENT/PLAN IMPRESSION AND PLAN History and physical exam are consistent with likely dental infection. Patient is placed on antibiotics for the same. She is well established with dentist and will follow-up within 24 hours. Patient iswell established with PCP and will follow-up with the same. Patient will return to the ER if new symptoms develop, current symptoms worsen, symptoms fail to improve, patient becomes concerned. Patient discharged in good condition. Differential diagnosis includes dental pain, tooth abscess, sinusitis I reviewed previous medical records including documentation from previous visits. Final Diagnoses: as of 02/09/222149 Pain Teeth Jose Melissa, P.A.-C. 02/09/222149 documented in this encounter Plan of Treatment Not on filedocumented as of this encounter Visit Diagnoses Diagnosis Pain Teeth - Primary documented in this encounter Additional Health Concerns Assessment Noted Time PHQ-9 Depression Total Score: 17 07/13/2020 3:09 PM CD T documented as of this encounter Care Teams Camera Technician Relationship Specialty Start Date End Date Elsewhere, Pcp PCP - General Internal Medicine 08/31/21 documented as of this encounter
--- NOTE | 2022-03-16 15:00 | CRLHL7_ITS ---
For Patients: As a result of the Century Cures Act, medical imaging exams and procedure reports are released immediately into your electronic medical record. You may view this report before your referring provider. If you have questions, please contact your health care provider. INDICATION: 41 year-old premenopausal female. Dysfunctional uterine bleeding. TECHNIQUE: Transabdominal and transvaginal pelvic ultrasound. FINDINGS: The uterus measures 8.9 x 4.0 x 5.0 cm. Diffusely heterogeneous myometrium. No discrete myometrial mass. Small cervical nabothian cysts. Heterogeneous endometrium measuring between 10 and 11 mm in thickness. Followup ultrasound within 6-8 weeks or 1-2 menstrual cycles versus hysterosonography or hysteroscopy which may be required depending on the clinical picture. Normal-sized ovaries with the right measuring 3.6 x 2.1 x 1.9 cm and the left measuring 2.3 x 1.7 x 1.7 cm. Small dominant follicular cyst left ovary measuring 1.6 x 1.3 cm. No free pelvic fluid. IMPRESSION: 1. Diffuse heterogeneous myometrial echotexture without discrete myometrial masses. 2. Heterogeneous endometrial stripe measuring between 10 and 11 mm. 3. Normal-sized ovaries with a small dominant follicular cyst on the left. Dictated by Edouard Soria MD @ 03/16/2022 5:59:30 PM (Electronically Signed)
--- OUTSIDE RECORDS SUMMARY | 2022-03-16 15:00 | XMS_ITS | Encounter Summary ---
:1980 Author Organization [facility] Address [address] [place] [address] Care Team Providers Name Role Phone Elsewhere, Pcp Primary Care Provider Unavailable Encounter Details Date Type Department Care Team Description 04/12/2021 Orders Only [facility] Lin Patel M.D. [address] [address] [place], [place] [address] [phone] Social History Tobacco Use Types Packs/Day Years [...] or relatives? How often do you attend pentecostalism or More than 4 times per year 11/09/2020 presybeterian services? Do you belong to any clubs or No 11/09/2020 organizations such as pentecostalism groups, unions, fraternal or athletic groups, or [...] to pay for the very basics like [email or web address] hat hard 11/09/2020 food, housing, medical care, [...] place to sleep or slept in a long term (including now)? Education Answer Date Recorded What [...] Onset Date Last Indicated Resolved Time COVID19 Pending 06/27/2021 06/28/2021 06/28/2021 1:13 AM CDT COVID19 11/16/2021 11/16/2021 12/06/2021 4:46 AM CDT COVID19 12/15/2021 12/15/2021 01/04/2022 4:45 AM CDT Assessment Noted Time PHQ-9 Depression Total Score: 17 07/13/2020 3:09 PM CD T documented as of this encounter Care Teams Impregnating Tank Operator Relationship Specialty Start Date End Date Elsewhere, Pcp PCP - General Internal Medicine 08/31/21 documented as of this encounter
--- OUTSIDE RECORDS SUMMARY | 2022-03-16 15:00 | XMS_ITS | Encounter Summary ---
:1980 Author Organization [facility] Address [address] [place] [id number] Care Team Providers Name Role Phone Unavailable Primary Care Provider Unavailable Reason for Visit Auth/Cert Specialty Diagnoses / Procedures Referred By Contact Refer red To Contact Diagnoses Care And Lactating Procedures OAD Referral ID Status Reason Start Date Expiration Date Visits Requ ested Visits Authorized [id number] 1 1 Encounter Details Date Type Department Care Team Description 06/28/2021 - Hospital Encounter [facility] Emmanuel Burrell M.D. [address] [place] [phone] Care And 06/29/2021 [facility], Kelly Haynes M.D. [address] [place] [phone] Lactating ([facility]) [facility], Dionne Pollack M.D. [address] [place] [phone] (Primary Dx) Building, Third Floor [address] [place] [phone] Social History Tobacco Use Types Packs/Day Years Used Date Smoking Tobacco: Every Day Cigarettes 0.5 S tarted: 2008 Smokeless Tobacco: Never Comments: 1/2 or less [...] How often do you attend moravian or More than 4 times per year 11/09/2020 mosque services? Do you belong to any clubs or No 11/09/2020 organizations such as moravian groups, unions, fraternal [...] place to sleep or slept in a custodial (including now)? Education Answer Date Recorded What is the highest level of school you have Some college, n o degree 11/17/2019 completed or the highest degree you have received? Sex Assigned at Date Recorded Not on file documented as of this encounter Last Filed Vital Signs Vital Sign Reading Time Taken Comments Blood Pressure 146/91 06/29/2021 12:24 PM CDT Pulse 80 06/29/2021 12:24 PM CDT Temperature 36.4 ??C (97.5 ??F) 06/29/2021 12:00 AM CDT Respiratory Rate 17 06/29/2021 8:34 AM CDT Oxygen Saturation 93% 06/29/2021 8:34 AM CDT Inhaled Oxygen Concentration - - Weight 93.6 kg (206 lb 5.6 oz) 06/28/2021 8:00 AM CDT Height - - Body Mass Index 37.74 12/06/2020 4:44 PM CDT documented in this encounter Discharge Summaries Nalini Rodriguez M.D. - 06/29/2021 1:13 PM CDT DISCHARGE SUMMARY BRIEF OVERVIEW Hospital: [facility] Discharge Provider: Dionne Ansari M.D. Primary Care Providers: Selena Cordoba M.D. ([facility]) [address] [place] [phone] Primary Care Provider Primary Care Provider Other Providers: None Admission Date: 06/28/2021 Discharge Date: 06/29/2021 PRINCIPAL DIAGNOSIS Care And Lactating (HCC) SECONDARY DIAGNOSES Principal Problem: Care And Lactating (HCC) Active Problems: Asthma (HCC) Preeclampsia Severe Shortness Of Breath Discomfort Chest Resolved Problems: * No resolved hospital problems. * DISCHARGE DISPOSITION Home or Self Care [1] ACTIVE ISSUES REQUIRING FOLLOW UP Patient Active Problem List Diagnosis ??? Asthma (HCC) ??? Obesity Body Mass Index 30-39.9 Adult ??? Migraine With Aura Not Intractable Without Status Migrainosus ??? Pap Smear Examination ??? Intrauterine Device Status ??? Care And Lactating (HCC) ??? Preeclampsia Severe ??? Shortness Of Breath ??? Discomfort Chest OUTPATIENT FOLLOW UP For appointment details refer to your Patient Appointment Guide. 1. Blood pressure check on 07/01/2021 in [place] 2. Recommend 2 week follow-up in [place] 3. Recommend 6 week follow-up in [place] *Recommend daily BP checks at home* - Call provider if upper number (systolic) > 150 and/or lower number (diastolic) > 100 - Seek treatment if upper number (systolic) > 160 and/or lower number (diastolic) > 110 DETAILS OF HOSPITAL STAY REASON FOR ADMISSION Care And Lactating (HCC) HOSPITAL COURSE Dulce Lei??is a 41 y.o.?? who had an uncomplicated vaginal delivery on 06/22/2021.??She presents as a transfer with preeclampsia with severe features symptoms including new onset??MEDRANO, chesttightness, SOB, anterior chest pain with deep inspiration, RUQ AP, b/l LE swelling. PMH complicated by migraine with aura, elevated BMI, and h/o abnormal pap smear. ?? Patient reports that symptoms started with leg swelling 06/25/21. Patient was evaluated in the OB[facility]GYNclinic 06/26/21 and was found to be hypertensive with reportedly negative preeclampsia workups, she was started on labetalol and discharged at that time. 06/27/21 patient also started having chest tightness, SOB, and MEDRANO as well as RUQ AP. For that patient presented to [facility] ED. In the ED CT PE was negative, HELLP labs were??normal. Patient was found to have proteinuria with urine protein at 30, BNP at 551, and signs of UTI on UA. Per ED provider note patient was treated for UTI just prior to delivery and is asymptomatic at the moment, for that reason no treatment was initiated in the ED. Patient received total of 50 mg IV labetalol and was started on IV Mg??4 mg bolus followed by??infusion at rate of2g/h with positive results. HELLP labs remained stable and within normal limits. Echocardiogram showed an EF of 59% and no regional wall abnormalities. Labetolol was uptitrated to 300mg q8hr and patient was discharged on 06/29/21 due to strong preference to return home. We discussed risks of dismissingearly including seizure and stroke. The patient acknowledges and understands these risks, so we reviewed signs and symptoms of worsening preeclampsia which the patient has a good understanding of. She will contact her medical care providers if her SBP > 150 and/or her DBP > 100 and she will present to a medical facility if her SBP > 160 and/or her DBP > 110 for HELLP labs. CONSULTS ORDERED DURING THIS ADMISSION None CONDITION AT DISCHARGE stable Discharge instructions were provided to the patient and caregiver(s). Associated attestation - Jose Bell M.D. - 06/29/2021 6:00 PM CDT Bicycle Rental Clerk Teaching Physician Statement: I have discussed the care of Dulce Lei, including pertinent history and exam findings with the resident. The mathias elements of the encounter have been performed/reviewed by me. I agree with the assessment, plan, and orders as discussed with the resident. The level of care submitted represents to the best of my ability the care documented in the medical record today. GC Modifier: This service has been performed in part by a fellow/resident under the direction of a teaching physician. Patient is currently 3 para 3 was transferred to [facility] after the diagnosis of severe preeclampsia was severe features diagnosed an outside emergency department. The patient was administered IV labetalol the transferred upon arrival the patient was managed for her preeclampsia treated with magnesium sulfate she was complaining of some shortness of breath and received a echocardiogram with ejection fraction of 59%. Her magnesium was DC'd after 24 hours. Plan was to observe her for an additional 24 hours however she became anxious and was insisting on discharge. She did allow history evaluate her after several hours she continued to request discharge she understands the increased risk the possibility of complications and recurrence for preeclampsia she agrees to follow-up andthat was thus discharged Jad Bell M.D. documented in this encounter Medications at Time of Discharge Medication Sig Dispensed Refills Start Date End Date acetaminophen (TYLENOL) Take 650 mg by 0 325 mg tablet mouth every 4 (four) hours as needed for pain. ascorbic acid, vitamin TAKE 1 TABLET BY 100 tablet 3 021 C, (VITAMIN C) 500 mg MOUTH DAILY tablet docusate sodium (COLACE) 0 06/23/2021 100 mg capsule hydrOXYzine (VISTARIL) TAKE 1 CAPSULE BY 40 capsule 5 202104/28/2022 25 mg capsule MOUTH EVERY EIGHT HOURS NEEDED ibuprofen (ADVIL,MOTRIN) TAKE 1 TABLET BY 30 tablet 0 06/2306/23/2022 600 mg tablet MOUTH EVERY SIX HOURS NEEDED oxyCODONE (ROXICODONE) 5 TAKE 1 TABLET BY 20 tablet 0 06/2206/22/2022 mg immediate release MOUTH EVERY SIX tablet HOURS NEEDED; MAXIMUM DAILY DOSE OF 4 TABLETS PER 24 HOURS cetirizine (ZyrTEC) 10 Take 10 mg by mouth 0 08/202003/06/2022 mg tablet daily. DULoxetine (CYMBALTA) 30 Take 1 capsule (30 30 capsule 3 11/202008/31/[address] capsule mg total) by mouth [...] tablet HOURS NEEDED FOR PAIN amoxicillin (AMOXIL) 500 TAKE 1 CAPSULE BY 15 capsule 0 05/1901/05/2022 mg capsule MOUTH THREE TIMES A DAY UNTIL GONE azithromycin (ZITHROMAX) TAKE 2 TABLETS BY 6 tablet 0 01/05/2022 250 mg tablet MOUTH ON DAY 1, THEN TAKE 1 TABLET DAILY ON DAYS 2 THROUGH 5. TAKE MEDICATION FOR 5 DAYS. butalbital-acetaminophen Take 1 tablet by 0 12/2808/31/2021 -caff (ESGIC) 50-325-40 mouth every 6 (six) mg per tablet hours as needed for headaches or migraine. butalbital-acetaminophen TAKE 1 TO 2 TABLETS 20 tablet 0 01/05/2022 -caff (ESGIC) 50-325-40 BY MOUTH EVERY FOUR mg per tablet HOURS; DO NOT EXCEED 6 TABLETS IN TWENTY-FOUR HOURS butalbital-acetaminophen TAKE 1 TO 2 TABLETS 30 tablet 0 01/05/2022 -caff (ESGIC) 50-325-40 BY MOUTH EVERY FOUR mg per tablet HOURS NEEDED; DO NOT EXCEED 6 TABLETS IN TWENTY-FOUR HOURS cetirizine (ZyrTEC) 10 TAKE 1 TABLET BY 90 tablet 3 021 01/05/2022 mg tablet MOUTH DAILY cholecalciferol, vitamin Take 1,000 Units by 0 07/20/2021 D3, (cholecalciferol) mouth daily. 1,000 Unit tablet clindamycin (CLEOCIN) TAKE 1 CAPSULE BY 28 capsule 0 022 01/05/2022 300 mg capsule MOUTH FOUR TIMES A DAY UNTIL GONE docusate sodium (COLACE) TAKE 1 CAPSULE BY 100 capsule 0 12/202101/05/2022 100 mg capsule MOUTH TWO TIMES A DAY NEEDED docusate sodium (COLACE) TAKE 1 CAPSULE BY 100 capsule 1 01/05/2022 100 mg capsule MOUTH TWO TIMES A DAY NEEDED DULoxetine (CYMBALTA) 20 TAKE 2 CAPSULES BY 180 capsule 0 01/05/[address] capsule MOUTH DAILY famotidine (PEPCID) 10 TAKE 1 TABLET BY 60 tablet 0 01/05/2022 mg tablet MOUTH TWO TIMES A DAY ferrous sulfate 324 mg TAKE 1 TABLET BY 100 tablet 0 01/05/2022 (65 mg iron) DR tablet MOUTH DAILY hydrOXYzine (VISTARIL) Take 25 mg by mouth 0 03/10/202107/20/2021 25 mg capsule every 6 (six) hours as needed for anxiety. hydrOXYzine (VISTARIL) TAKE 1 TO 4 12 capsule 0 06/21/2021 0 01/05/2022 25 mg capsule CAPSULES BY MOUTH DAILY labetaloL (NORMODYNE) TAKE 2 TABLETS BY 120 tablet 0 01/05/2022 100 mg tablet MOUTH TWO TIMES A DAY magnesium oxide (MAG-OX) TAKE 1 TABLET BY 120 tablet 0 04/1901/05/2022 400 mg (241.3 mg MOUTH DAILY magnesium) tablet metoclopramide (REGLAN) TAKE 1 TABLET BY 30 tablet 3 202001/05/2022 10 mg tablet MOUTH THREE TIMES A DAY NEEDED PARoxetine (PAXIL) 10 mg TAKE ONE-HALF 15 tablet 0 10/07/19 21 01/05/2022 tablet TABLET BY MOUTH DAILY penicillin V potassium TAKE 1 TABLET BY 40 tablet 0 01/05/2022 (VEETIDS) 500 mg tablet MOUTH FOUR TIMES A DAY UNTIL GONE sertraline (ZOLOFT) 25 TAKE 1 TABLET BY 7 tablet 0 021 01/05/2022 mg tablet MOUTH DAILY sertraline (ZOLOFT) 50 TAKE 1 TABLET BY 30 tablet 0 021 01/05/2022 mg tablet MOUTH DAILY documented as of this encounter Progress Notes Nalini Rodriguez M.D. - 06/29/2021 1:20 PM CDT Returned to discuss discharge planning with patient. We discussed the recommendation to stay in the hospital another night due to recent completion of 24 hours of magnesium and SBPs in the 130/140s andDBP in the 90s. However the patient strongly prefers leaving today, so we reviewed risks of worsening preeclampsia including stroke and seizure. The patient verbalizes that she acknowledges and understands these risks and continues to strongly prefer going home. We reviewed the recommendation to take Bps daily with home cuff and to monitor for signs and symptoms of preeclampsia. She will call a provider if her SBP > 150 and/or DBP > 100 and will seek treatment if SBP > 160 and/or DBP >110. She will also seek treatment if symptoms of preeclampsia return. She has a visit with her sealer dry cell in [place] on , 07/01/21 at 10AM and I encour aged her to attend for a BP check. Questions were answered and patient was in agreement with plan. Nalini Rodriguez M.D. - 06/29/2021 6:58 AM CDT SUBJECTIVE Dulce Lei is a 41 y.o. who had an uncomplicated vaginal delivery on 06/22/2021. She presents as a transfer with preeclampsia with severe features symptoms including new onset MEDRANO, chest tightness, SOB, anterior chest pain with deep inspiration, RUQ AP, b/l LE swelling. PMH complicated by migraine with aura, elevated BMI, and h/o abnormal pap smear. Patient reports that symptoms started with leg swelling 06/25/21. Patient was evaluated in the OB/GYNclinic 06/26/21 and was found to be hypertensive with reportedly negative preeclampsia workups, she was started on labetalol and discharged at that time. 06/27/21 patient also started having chest tightness, SOB, and MEDRANO as well as RUQ AP. For that patient presented to [facility] ED. In the ED CT PE was negative, HELLP labs were normal. Patient was found to have proteinuria with urine protein at 30, BNP at 551, and signs of UTI on UA. Per ED provider note patient was treated for UTI just prior to delivery and is asymptomatic at the moment, for that reason no treatment was initiated in the ED. Patient received total of 50 mg IV labetalol and was started on IV Mg 4 mg bolus followed by infusion at rate of 2g/h with positive results. This AM patient reports she feels well physically but has strong desire to discharge today - MEDRANO resolved - RUQ pain resolved - No nausea or emesis - Endorses bowel function intact - Urinating without concerns - Minimal vaginal lochia - Patient is eager to return home and does not want to come to the hospital. Reports she feels very anxious today due to hospital environment. OBJECTIVE Vital signs reviewed. Temp (24hrs), Av.5 ??C, Min:36.4 ??C, Max:36.7 ??C Weight change: I/O 06/27 0701 06/28 0700 06/28 0701 06/29 0700 06/29 0706/30 0700 P.O. 200 Maintenance IV 105.8 125 Continuous Medications 212.5 250 Total Intake(mL/kg) 318.3 575 (6.1) Urine (mL/kg/hr) 600 2750 (1.2) 100 (0.2) Stool 0 Total Output 600 2750 100 Net -281.7 -2175 -100 Unmeasured Urine Occurrence 1 x 2 x Unmeasured Stool Occurrence 1 x PHYSICAL EXAM General: NAD, tearful when discussing disposition Cardiac: good perfusion in limbs Pulm: normal respiratory effor Abd: Fundus 2 below umbilicus, soft, nontender Ext: mild swelling LABORATORY RESULTS Hemoglobin Date Value Ref Range Status 06/28/2021 9.7 (L) 11.6 - 15.0 g/dL Final Creatinine, S Date Value Ref Range Status 06/28/2021 0.66 0.59 - 1.04 mg/dL Final Creatinine, P Date Value Ref Range Status 06/27/2021 0.59 0.59 - 1.04 mg/dL Final Leukocytes Date Value Ref Range Status 06/28/2021 9.6 3.4 - 9.6 x10(9)/L Final No results found for this visit on 06/28/21 (from the past 72 hour(s)). IMAGING RESULTS, LAST [address] Chest Angiogram and Pulmonary Arteries with IV Contrast Result Date: 06/27/2021 Impression: 1. Negative for acute pulmonary embolism. ASSESSMENT / PLAN Dulce Lei is a 41 y.o. who had an uncomplicated vaginal delivery on 06/22/2021. She presents as a transfer with preeclampsia with severe features symptoms including new onset MEDRANO, chest tightness, SOB, anterior chest pain with deep inspiration, RUQ AP, b/l LE swelling that have all resolved. PMH complicated by migraine with aura, elevated BMI, asthma and h/o abnormal pap smear. # Preeclampsia with severe features # chest tightness - improved - Patient had thorough workup in ED for chest tightness prior to arrival at [facility] that showednegative CT PE, EKG wnl, stable troponin trend, elevated BNP to 551. She is feeling significantly better today and symptoms resolved. ECHO scheduled 06/28 showed EF 59% and no regional wall abnormalities making cardiomyopathy an unlikely etiology of symptoms. - Bps are normal to mild range - Adequate UOP - S/P 24 hours magnesium - labetalol 200mg q8hr # H/O sinusitis # Rhinitis # Congestion - BID netiPot - BID alleve - Daily flonase after NetiPot in AM - Trial netipot, alleve and flonase for 10days then consider abx if no improvement # migraine with aura - stable, no concerns # asthma - stable, no acute concerns - no home medications # care and lactating - on 06/22/2021 - no acute concerns Disposition: We had a thorough discussion with the patient about our recommendation for her to remain in the hospital for BP monitoring at least for another day and potentially longer if her BP increases or her preeclampsia with SF symptoms return. The patient strongly prefers to go home and monitor Bps with home cuff. We discussed the risk of seizure and stroke with the patient, particularly if the disease process worsens and is not identified. She states she understands the risks of discharging before medically recommended and that she will return promptly if her BP is increasing, particularly > 150 / > 100 and especially if > 160 / > 110. We encouraged the patient to bring her to the hospital but she is emphatically not comfortable with this. Her PIV was removed this AM so she could smoke a cigarette outdoors. We will readdress the conversation this afternoon at 1300. Patient was seen and discussed with Dr. Tegan Whitt. Nalini Rodriguez M.D. Associated attestation - Jose Bell M.D. - 06/29/2021 6:00 PM CDT Bicycle Rental Clerk Teaching Physician Statement: I have discussed the care of Dulce Lei, including pertinent history and exam findings with the resident. The mathias elements of the encounter have been performed/reviewed by me. I agree with the assessment, plan, and orders as discussed with the resident. The level of care submitted represents to the best of my ability the care documented in the medical record today. GC Modifier: This service has been performed in part by a fellow/resident under the direction of a teaching physician. Jad Bell M.D. Nalini Rodriguez M.D. - 06/28/2021 6:00 AM CDT SUBJECTIVE Dulce Lei is a 41 y.o. who had an uncomplicated vaginal delivery on 06/22/2021. She presents as a transfer with preeclampsia with severe features symptoms including new onset MEDRANO, chest tightness, SOB, anterior chest pain with deep inspiration, RUQ AP, b/l LE swelling. PMH complicated by migraine with aura, elevated BMI, and h/o abnormal pap smear. Patient reports that symptoms started with leg swelling 06/25/21. Patient was evaluated in the OB/GYNclinic 06/26/21 and was found to be hypertensive with reportedly negative preeclampsia workups, she was started on labetalol and discharged at that time. 06/27/21 patient also started having chest tightness, SOB, and MEDRANO as well as RUQ AP. For that patient presented to [facility] ED. In the ED CT PE was negative, HELLP labs were normal. Patient was found to have proteinuria with urine protein at 30, BNP at 551, and signs of UTI on UA. Per ED provider note patient was treated for UTI just prior to delivery and is asymptomatic at the moment, for that reason no treatment was initiated in the ED. Patient received total of 50 mg IV labetalol and was started on IV Mg 4 mg bolus followed by infusion at rate of 2g/h with positive results. This AM patient reports she feels well. - MEDRANO improved, resolves with Tylenol - RUQ pain resolved - No nausea or emesis - Endorses bowel function intact - Urinating without concerns - Minimal vaginal lochia - Reports sinus disccomfort. H/O 2 prior sinus surgeries and recurrent sinusitis in past. Has had chronic symptoms that have been slightly worse the past few days. Also endorses green/yellow nasal discharge. OBJECTIVE Vital signs reviewed. Temp (24hrs), Av.5 ??C, Min:36.5 ??C, Max:36.5 ??C Weight change: I/O 06/26 0706/28 0706/29 07 P.O. 75 Maintenance IV 105.8 Continuous Medications 212.5 Total Intake(mL/kg) 318.3 75 (0.8) Urine (mL/kg/hr) 600 950 (2.6) Stool 0 Total Output 600 950 Net -281.7 -875 Unmeasured Urine Occurrence 1 x Unmeasured Stool Occurrence 1 x PHYSICAL EXAM General: appears well, sleeping in bed, NAD Cardiac: normal S1/S2, no MRG, normal rate and rhythm Pulm: mild crackles present at L lung base, otherwise clear breath sounds throughout, normal respiratory effort Abd: Fundus 2 below umbilicus, soft, nontender Ext: mild swelling, no calf tenderness, patellar reflexes present LABORATORY RESULTS Hemoglobin Date Value Ref Range Status 06/28/2021 9.0 (L) 11.6 - 15.0 g/dL Final Creatinine, S Date Value Ref Range Status 06/28/2021 0.65 0.59 - 1.04 mg/dL Final Creatinine, P Date Value Ref Range Status 06/27/2021 0.59 0.59 - 1.04 mg/dL Final Leukocytes Date Value Ref Range Status 06/28/2021 10.3 (H) 3.4 - 9.6 x10(9)/L Final No results found for this visit on 06/28/21 (from the past 72 hour(s)). IMAGING RESULTS, LAST [address] Chest Angiogram and Pulmonary Arteries with IV Contrast Result Date: 06/27/2021 Impression: 1. Negative for acute pulmonary embolism. ASSESSMENT / PLAN Dulce Lei is a 41 y.o. who had an uncomplicated vaginal delivery on 06/22/2021. She presents as a transfer with preeclampsia with severe features symptoms including new onset MEDRANO, chest tightness, SOB, anterior chest pain with deep inspiration, RUQ AP, b/l LE swelling. PMH complicated by migraine with aura, elevated BMI, asthma and h/o abnormal pap smear. # Preeclampsia with severe features # chest tightness - improved - 24 hours magnesium at 2g/hr IV infusion - mIVF w LR - labetalol 200mg q8hr - q12hr magnesium check, completed 3 AM - Patient had thorough workup in ED for chest tightness prior to arrival at [facility] that showed negative CT PE, EKG wnl, stable troponin trend, elevated BNP to 551. She is feeling significantly better after starting magnesium. Awaiting ECHO today to rule out pp cardiomyopathy - ECHO scheduled 06/28/20 # H/O sinusitis # Rhinitis # Congestion - BID netiPot - BID alleve - Daily flonase after NetiPot in AM - Trial netipot, alleve and flonase for 10days then consider abx if no improvement # migraine with aura - stable, no concerns # asthma - stable, no acute concerns - no home medications # care and lactating - on 06/22/2021 - no acute concerns Patient was seen and discussed with Dr. Tegan Whitt. Nalini Rodriguez M.D. Associated attestation - Tegan Whitt M.D. - 06/28/2021 11:55 AM CDT Patient seen and evaluated with Dr. Rodriguez this am. The patient is feeling better without chest tightness, dyspnea or pain but she continues to note fatigue with exertion. Exam is unremarkable except fortenderness over the right > left maxillary sinus. Echo pending. For sinus symptoms, with a history of sinus surgery and tendency to sinusitis, will begin with Neti pot and Flonase. If she doesn't improve with this regimen, will then consider use of po antibiotics. I am in agreement with the plan asdocumented per Dr. Rodriguez. Jennifer THOMAS documented in this encounter H&P Notes Tawana Horan M.D. - 06/28/2021 2:42 AM CDT SUBJECTIVE Dulce Lei is a 41 y.o. 6 days after uncomplicated vaginal delivery. She presents with complaints of MEDRANO, chest tightness, SOB, anterior chest pain with deep inspiration, RUQ AP,b/l LE swelling. Patient reports that symptoms started with leg swelling 3 days ago. Patient was eval uated in the [facility] 2 days ago and was found to be hypertensive with reportedly negative preeclampsia workups, she was started on labetalol and discharged at that time. Yesterday patient also started having chest tightness, SOB, and MEDRANO as well as RUQ AP. For that patient presented to [facility] ED. In the ED CT PE was negative, HELLP labs were normal. Patient was found to have proteinuria with urineprotein at 30, BNP at 551, and signs of UTI on UA. Per ED provider note patient was treated for UTI just prior to delivery and is asymptomatic at the moment, for that reason no treatment was initiated in the ED. Patient received total of 50 mg IV labetalol and was started on IV Mg 4 mg bolus followed by infusion at rate of 2g/h with positive results. Active problem list and OB history: Patient Active Problem List Diagnosis ??? Asthma (HCC) ??? Obesity Body Mass Index 30-39.9 Adult ??? Migraine With Aura Not Intractable Without Status Migrainosus ??? Pap Smear Examination ??? Intrauterine Device Status ??? Care And Lactating (HCC) OB History Para Term AB Living 3 SAB IAB Ectopic Molar Multiple Live Births # Outcome Date GA Lbr Nico/2nd Weight Sex Delivery Anes PTL Lv 3 Current 2 1 Pertinent SH: not sexually active at the moment Pertinent PMH: recurrent sinusitis, migraine MEDRANO, s/p cholecystectomy REVIEW OF SYSTEMS Gen: no fevers, chills, weight loss Neuro: + MEDRANO, no weakness/numbness, no visual changes Pulm: + SOB, no cough Card: + chest pain/tightness, + b/l LE edema, negative palpitations GI: + RUQ abdominal pain, negative for N/V/D : negative for dysuria, urgency, blood in urine Psych: mood normal OBJECTIVE VITAL SIGNS BP (!) 135/93 Pulse 86 LMP 10/14/2020 SpO2 97% No ALLERGIES Allergies Allergen Reactions ??? Ciprofloxacin GI intolerance Nausea & Vomiting ??? Amoxicillin-Pot Clavulanate GI intolerance ??? Silicone Other (see comments) Please Verify & complete Reaction & Severity maloney! PHYSICAL EXAM Gen: afebrile, BP in 130s/90s Pulm: Lugs CTAB CV: normal rate/rhythm, no m/r/g, pulses full and equal b/l, trace pedal edema GI: RUQ abdominal tenderness, no rebound, Burrell's negative : CVA tenderness negative b/l, moderate facial swelling Skin: no rashes Recent Results (from the past 24 hour(s)) NT-Pro B-Type Natriuretic Peptide (BNP) Collection Time: 06/27/21 9:02 PM Result Value NT-Pro BNP, P 551 (H) CBC with Differential, Blood Collection Time: 06/27/21 9:09 PM Result Value Hemoglobin 9.0 (L) Hematocrit 28.7 (L) Erythrocytes 2.94 (L) MCV 97.6 RBC Distrib Width 14.2 Platelet Count 379 (H) Leukocytes 11.9 (H) Neutrophils 7.03 (H) Lymphocytes 3.54 (H) Monocytes 0.95 (H) Eosinophils 0.34 Basophils 0.08 Comprehensive Metabolic Panel Collection Time: 06/27/21 9:09 PM Result Value Potassium, P 4.1 Sodium, P 138 Chloride, P 106 Bicarbonate, P 21 (L) Anion Gap, P 11 BUN (Blood Urea Nitrogen), P 16 Creatinine, P 0.59 eGFR-Black/ >90 eGFR Non-Black/ >90 Calcium, Total, P 8.8 Glucose, P 97 Protein, Total, P 5.7 (L) Albumin, P 3.1 (L) Aspartate Aminotransferase (AST), P 20 Alkaline Phosphatase, P 113 (H) Alanine Aminotransferase (ALT), P 15 Bilirubin, Total, P <0.2 Prothrombin Time (PT) Collection Time: 06/27/21 9:09 PM Result Value Prothrombin Time, P 10.7 INR 1.0 D-Dimer Collection Time: 06/27/21 9:09 PM Result Value D-Dimer, P 1470 (H) Morphology Evaluation Collection Time: 06/27/21 9:09 PM Result Value RBC Morphology See Specific Findings PLT Morphology Normal PLT Estimate Increased (A) Anisocytosis Slight (A) Microcytosis Slight (A) Urinalysis with Microscopic: Urine, Midstream Collection Time: 06/27/21 9:24 PM Result Value Source Urine, Urine, Midstream Clarity Clear Color Yellow Blood Moderate (A) Nitrite Negative Leukocyte Esterase Trace (A) Protein 30 (A) Glucose Negative Ketones, QI(U) Negative Bilirubin Negative pH 6.5 Specific [place] >=1.030 Urobilinogen 0.2 White Blood Cells 11-20 (A) Red Blood Cells 11-20 (A) Dysmorphic Red Blood Cells <=25 Mucus Present Squamous Cells Occ-3 Transitional Cells Occ-3 (A) Renal Cells Occ-3 (A) Bacteria Present (A) Troponin T, Baseline, 5th gen Collection Time: 06/27/21 9:36 PM Result Value Troponin T, Baseline, 5th gen 15 (H) Troponin T, 2H/6H, 5th Gen Collection Time: 06/27/21 11:12 PM Result Value Troponin T, 2 hr, 5th gen 14 (H) 2H Delta -1 2H Delta Interp Not Changing Troponin T, 6 hr, 5th gen CANCELED SARS Coronavirus 2, PCR Rapid, V Symptomatic Collection Time: 06/28/21 12:50 AM Specimen: Nasopharynx; Varies Result Value SARS CoV-2, PCR, Rapid, V Undetected SARS Coronavirus 2, Source, Rapid Swab, Nasopharynx ASSESSMENT / PLAN #1 Preeclampsia with severe features #2 Chronic Headache #2 Care And Lactating Discussed diagnosis of preeclampsia with SF with the patient. Plan to continue observation with magnesium sulfate maternal seizure prophylaxis on L&D at this time. - Admit to L&D - Continue MgSO4 2g/h IV infusion, plan to complete total 24hrs - 25 mL/h IV LR infusion - Tylenol 1000 mg q6h PRN for MEDRANO - Repeat urinary labs to evaluate for persistent UTI - Echo in the morning to evaluate for CMP - Labetalol po increased from 200mg q12hrs to q8hrs Tawana Horan M.D. Associated attestation - Kelle Burrell M.D. - 06/28/2021 6:23 AM CDT [employer]icycle Rental Clerk Teaching Physician Statement: I have discussed the care of Dulce Lei, including pertinent history and exam findings with the fellow/resident. I have reviewed their note in the electronic medical record. The mathias elements ofthe encounter have been performed/reviewed by me. I agree with the assessment, plan, and orders as do cumented by the fellow/resident. The level of care submitted represents to the best of my ability the care documented in the medical record today. GC Modifier: This service has been performed in part by a fellow/resident under the direction of a teaching physician. Patient has been admitted for preeclampsia with severe features. Magnesium sulfate seizure prophylaxis is ongoing. Given initial presentation of shortness of breath and elevated BNP, we will proceed with an echo today to exclude cardiomyopathy. CTA of the chest did not reveal a pulmonary embolus or pulmonary edema. Extensive discussion was had with the patient regarding her diagnosis and concern for cardiomyopathy although this is less likely. Patient was agreeable to plan of care and verbalized understanding. All of her questions were answered. Kelle Burrell M.D. documented in this encounter Nursing Notes Flavia Olea R.N. - 06/29/2021 1:29 PM CDT Shift Goals: Clinical Goals for the Shift: VSS; maintain stable BP; emotional support; rest Identify possible barriers to meeting goals/advancing plan of care: none End of Shift Summary: Patient progressing as expected. Pain well controlled. Continuing to encouragepatient to rest and tyler with baby. Patient asking appropriate questions and receptive to teaching. Intentional rounding performed during shift. Discharge instructions completed, AVS given, and patientable to teach back signs and symptoms to seek emergency care. Verbalized understanding of labetolol administration and timing. Erin Boone R.N. - 06/28/2021 10:27 PM CDT Shift Goals: Clinical Goals for the Shift: maintain BP; manage MEDRANO; rest Identify possible barriers to meeting goals/advancing plan of care: n/a End of Shift Summary: Patient headache was managed with tylenol and ibuprofen; blood pressures remain elevated. Sarah Klein R.N. - 06/28/2021 2:40 PM CDT Problem: PAIN - ADULT Goal: PT VERBALIZES/DEMONSTRATES ADEQUATE COMFORT LEVEL OR BASELINE Outcome: Progressing Problem: KNOWLEDGE DEFICIT Goal: Patient/family/caregiver demonstrates understanding of disease process, treatment plan, medications, and discharge instructions Outcome: Progressing Problem: INFECTION - ADULT Goal: Absence of infection during hospitalization Outcome: Progressing Problem: SKIN/TISSUE INTEGRITY Goal: Skin/Tissue integrity maintained or improved Outcome: Progressing Goal: Oral and Nasal mucous membranes remain intact Outcome: Progressing Problem: SAFETY ADULT Goal: Maintain a safe environment Outcome: Progressing Problem: SAFETY ADULT - RISK FOR FALL AND OR FALL INJURY Goal: Patient remains free from fall/fall injury Outcome: Progressing Problem: DISCHARGE PLANNING Goal: Patient discharge needs identified Outcome: Progressing Shift Goals: Clinical Goals for the Shift: Manage MEDRANO, rest, maintain BP Identify possible barriers to meeting goals/advancing plan of care: None End of Shift Summary: Patient progressing as expected, vitals have been WNL throughout shift, no severe range BP's during shift. Per EMS, pt was given Magnesium bolus @ 0100 on 06/28 after presenting toER w/severe range pressures, SOB, chest pain, headache, R epigastric pain, and generalized edema. Ptwas transferred to [place] and continued receiving IV Magnesium @ 50ml/hr, as well as IV LR @ 25ml/hr. Headache and R epigastric pain present throughout shift, being managed w/PRN pain medications. Pt is on seizure precautions. +1 facial and BLE present, denies any nausea/vomiting or vision changes. ECHOcompleted to r/o cardiomyopathy. Pt is not or pumping and baby is not present at hospital w/pt; baby home w/support person. Continuing to encourage patient to rest. Pt is prescribed Aleveand Flonase for 10 days and if no sinus relief, will then be prescribed antibiotics to treat sinus symptoms. Patient asking appropriate questions and receptive to teaching. Intentional rounding performed during shift. documented in this encounter Plan of Treatment Not on filedocumented as of this encounter Procedures Procedure Name Priority Date/Time Associated Comments Diagnosis CBC WITHOUT Routine 06/28/2021 8:59 Results for this DIFFERENTIAL, B PM CDT procedure ar e in the results section. ASPARTATE Routine 06/28/2021 8:59 Results for this AMINOTRANSFERASE (AST), PM CDT proc edure are in S/P the results section. CREATININE WITH EGFR, Routine 06/28/2021 8:59 Res ults for this S/P PM CDT procedure are i n the results section. (TTE) 2D ECHO DOPPLER Routine 06/28/2021 3:01 Res ults for this COLOR PM CDT procedure are i n the results section. CBC WITHOUT Routine 06/28/2021 8:54 Results for this DIFFERENTIAL, B AM CDT procedure ar e in the results section. ASPARTATE Routine 06/28/2021 8:54 Results for this AMINOTRANSFERASE (AST), AM CDT proc edure are in S/P the results section. CREATININE WITH EGFR, Routine 06/28/2021 8:54 Res ults for this S/P AM CDT procedure are i n the results section. documented in this encounter Results AST (Aspartate Aminotransferase) (06/28/2021 8:59 PM CDT) [facility] gist Method Time Signature Aspartate 21 8 - 43 06/28/2021 DTL Aminotransferase U/L 9:59 PM CDT (AST), S Specimen Anatomical Collection Method Collection Time Receive d Time (Source) Location / / Volume Laterality Blood (Blood, 06/28/2021 8:59 PM 06/29/19 22 9:43 Venous) CDT PM CDT Nalini Rodriguez M.D. LAB BLOOD ADD-ON Performing Organization Address City/State/ZIP Code Phon e Number [facility] - [address] [place], [place] [address] [facility] [place] [address] [facility] [address] Creatinine with Estimated GFR (06/28/2021 8:59 PM CDT) P athologist Signature Creatinine 0.66 0.59 - 06/28/2021 DTL 1.04 mg/dL 9:59 PM CDT eGFR-Non >90 >=60 06/28/2021 DTL Black/ mL/min/BSA 9:59 PM CDT Hungarian Comment: ----ADDITIONAL INFORMATION---- Estimated GFR calculated using the 2009 CKD_EPI creatinine equation. eGFR-Black/ >90 >=60 mL/min/BSA 2021 9:59 PM CDT DTL Comment: ----ADDITIONAL INFORMATION---- Estimated GFR calculated using the 2009 CKD_EPI creatinine equation. Specimen Anatomical Collection Method Collection Time Receive d Time (Source) Location / / Volume Laterality Blood (Blood, 06/28/2021 8:59 PM 06/29/19 9:43 Venous) CDT PM CDT Nalini Rodriguez M.D. LAB BLOOD ADD-ON Performing Organization Address City/State/ZIP Code Phon e Number [facility] - [address] [place], [place] [address] [facility] [place] [address] [facility] [address] (ABNORMAL) CBC without Differential (06/28/2021 8:59 PM CDT) Patholo gist Method Time Signature Hemoglobin 9.7 (L) 11.6 - 06/28/2021 DTL 15.0 g/dL 9:35 PM CDT Hematocrit 30.3 (L) 35.5 - 06/28/2021 DTL 44.9 % 9:35 PM CDT Erythrocytes 3.17 (L) 3.92 - 06/28/2021 DTL 5.13 9:35 PM CDT x10(12)/L MCV 95.6 78.2 - 06/28/2021 DTL 97.9 fL 9:35 PM CDT RBC Distrib Width 14.5 12.2 - 06/28/2021 DTL 16.1 % 9:35 PM CDT Platelet Count 400 (H) 157 - 371 06/28/2021 DTL x10(9)/L 9:35 PM CDT Leukocytes 9.6 3.4 - 9.6 06/28/2021 DTL x10(9)/L 9:35 PM CDT Specimen Anatomical Collection Method Collection Time Receive d Time (Source) Location / / Volume Laterality Blood (Blood, 06/28/2021 8:59 PM 06/29/19 9:28 Venous) CDT PM CDT Nalini Rodriguez M.D. LAB BLOOD ADD-ON Performing Organization Address City/State/ZIP Code Phon e Number [facility] - [address] [place] [phone] [facility] [place] [address] [facility] [address] [facility] (TTE) 2D ECHO DOPPLER COLOR (06/28/2021 3:01 PM CDT) [facility] Method Time Signature Ejection Fraction 59 MC CV EIMS Proximal Ascending 30 MC CV EIMS Aorta LV Mass Index 102 MC CV EIMS LV End-Diastolic 55 MC CV EIMS Diameter LV End-Systolic 37 MC CV EIMS Diameter MV E Velocity 1.20 MC CV EIMS MV A Velocity 0.60 MC CV EIMS MV E/A 2 MC CV EIMS MV e' Velocity 0.10 MC CV EIMS Medial MV e' Velocity 0.13 MC CV EIMS Lateral MV E/e' Medial 12 MC CV EIMS MV E/e' Lateral 9.20 MC CV EIMS Left ventricular 43 MC CV EIMS stroke volume index Cardiac Output 6.80 MC CV EIMS Cardiac Index 3.50 MC CV EIMS LV Interventricular 9 MC CV EIMS Septal Wall Thickness LV Posterior Wall 10 MC CV EIMS Thickness LV Relative Wall 36 MC CV EIMS Thickness RV 4-Chamber Basal 38 MC CV EIMS Diameter RV 4-Chamber Mid 29 MC CV EIMS Diameter RV 4-Chamber Length 87 MC CV EIMS Tricuspid Annular S? 0.13 MC CV EIMS TR Vmax 2.40 MC CV EIMS RA Pressure 10 MC CV EIMS RV Systolic Pressure 33 MC CV EIM S AV mean gradient 5 MC CV EIMS Aortic Valve 0.67 MC CV EIMS Dimensionless Index MV mean gradient 2 MC CV EIMS MV regurgitant 12 MC CV EIMS volume LA Volume Index 36 MC CV EIMS Anatomical Region Laterality Modality Other Specimen (Source) Anatomical Collection Method Collection Time Re ceived Time Location / / Volume Laterality 06/28/2021 12:36 PM CDT Impressions 06/29/2021 2:23 AM CDT There are no previous [facility] echocardiograms available for comparison. Anemia, thyrotoxicosis, or another high output state could contribute to the increased Doppler velocities (hemoglobin 9.0 g/dL ). Echo performed at the patient's [facility]. LEFT VENTRICLE:Normal left ventricular c hamber size. Abnormal left ventricular geometry with ??eccentric left ventricular hypertrophy. Calculated 2-D linear left ventricular ejection fraction 59%. No regional wall motion abnormalities. Normal left ventricular diastolic function. RIGHT VENTRICLE:Normal right ventricular chamber size. Normal right ventricular systolic function. Estimated right ventricular systolic pressure 33 mmHg (right atrial pressure of 10 mmHg). ATRIA:Mildly enlarged left atrial size. Left atrial volume index 36 ml/m2. Normal right atrial size. CARDIAC VALVES:Trileaflet aortic valve. Normal aortic valve. No aortic valve regurgitation. Normal mitral valve. Mild mitral valve regurgitation. Normal pulmonary valve. Normal pulmonary valve systolic velocities. Trivial pulmonary valve regu rgitation. Normal tricuspid valve. Trivial tricuspi d valve regurgitation. OTHER ECHO FINDINGS:Borderline enlarged inferior vena cava size with reduced inspiratory collapse (<50%). Normal proximal ascending aorta diameter (diameter 30 mm at proximal level). Abdominal aorta incompletely visualized. Normal abdomina l aorta Doppler flow pattern. No atrial level shunt by c olor flow imaging. No intracardiac mass or thrombus, but the left atrial appendage cannot be visualized adequately with transthoracic echo to exclude thrombus in this location. No ??pericardial effusion. For the complete report, see the Order-L evel Documents. Narrative 06/29/2021 2:23 AM CDT For the complete report, see the Order-Level Documents. Final Impressions 1. BEDSIDE ECHOCARDIOGRAM: 2. Normal left ventricular size; normal systolic function; calculated ejection fraction 59%. 3. No regional wall motion abnormalities . ??Normal left ventricular diastolic function. 4. Normal aortic valve; no aortic valve regurgitation. 5. Mild mitral valve regurgitation; mild left atrial enlargement. 6. Normal right ventricular size; normal systolic function; estimated RV systolic pressure 33 mmHg. 7. Trivial tricuspid valve regurgitation ; normal right atrial size. 8. Borderline enlarged inferior vena cav a size with reduced inspiratory collapse (<50%). Procedure Note Hamzah Mckinney M.D. - 06/28/2021Form atting of this note might be different from the original. For the complete report, see the Order-L evel Documents. Final Impressions 1. BEDSIDE ECHOCARDIOGRAM: 2. Normal left ventricular size; normal systolic function; calculated ejection fraction 59%. 3. No regional wall motion abnormalities . Normal left ventricular diastolic function. 4. Normal aortic valve; no aortic valve regurgitation. 5. Mild mitral valve regurgitation; mild left atrial enlargement. 6. Normal right ventricular size; normal systolic function; estimated RV systolic pressure 33 mmHg. 7. Trivial tricuspid valve regurgitation ; normal right atrial size. 8. Borderline enlarged inferior vena cav a size with reduced inspiratory collapse (<50%). Findings There are no previous [facility] echoca rdiograms available for comparison. Anemia, thyrotoxicosis, or another high output state could contribute to the increased Doppler velocities (hemoglobin 9.0 g/dL). Echo performed at the patient's bedside. LEFT VENTRICLE:Normal left ventricular c hamber size. Abnormal left ventricular geometry with eccentric left ventricular hypertrophy. Calculated 2-D linear left ventricular ejection fraction 59%. No regional wall motion abnormalities. Normal left v entricular diastolic function. RIGHT VENTRICLE:Normal right ventricular chamber size. Normal right ventricular systolic function. Estimated right ventricular systolic pressure 33 mmHg (right atrial pressure of 10 mmHg). ATRIA:Mildly enlarged left atrial size. Left atrial volume index 36 ml/m2. Normal right atrial size. CARDIAC VALVES:Trileaflet aortic valve. Normal aortic valve. No aortic valve regurgitation. Normal mitral valve. Mild mitral valve regurgitation. Normal pulmonary valve. Normal pulmonary valve systolic velocities. Trivial pulmonary valve regurgitation. N ormal tricuspid valve. Trivial tricuspid valve regurgitation. OTHER ECHO FINDINGS:Borderline enlarged inferior vena cava size with reduced inspiratory collapse (<50%). Normal proximal ascending aorta diameter (diameter 30 mm at proximal level). Abdominal aorta incompletely visualized. Normal abdominal aorta Doppl er flow pattern. No atrial level shunt by color flow imaging. No intracardiac mass or thrombus, but the left atrial appendage cannot be visualized adequately with transthoracic echo to exclude thrombus in this locatio n. No pericardial effusion. For the complete report, see the Order-L evel Documents. Tawana Horan M.D. CV ECHO PROCEDURES AST (Aspartate Aminotransferase) (06/28/2021 8:54 AM CDT) [facility] Method Time Signature Aspartate 17 8 - 43 06/28/2021 DTL Aminotransferase U/L 9:46 AM CDT (AST), S Specimen Anatomical Collection Method Collection Time Receive d Time (Source) Location / / Volume Laterality Blood (Blood, 06/28/2021 8:54 AM 06/29/19 9:24 Venous) CDT AM CDT Nalini Rodriguez M.D. LAB BLOOD ADD-ON Performing Organization Address City/[facility] Code Phon e Number [facility] - [address] [place] [address] [place] [address] Creatinine with Estimated GFR (06/28/2021 8:54 AM CDT) P athologist Signature Creatinine 0.65 0.59 - 06/28/2021 DTL 1.04 mg/dL 9:46 AM CDT eGFR-Non >90 >=60 06/28/2021 DTL Black/ mL/min/BSA 9:46 AM CDT Hungarian Comment: ----ADDITIONAL INFORMATION---- Estimated GFR calculated using the 2009 CKD_EPI creatinine equation. eGFR-Black/ >90 >=60 mL/min/BSA 2021 9:46 AM CDT DTL Comment: ----ADDITIONAL INFORMATION---- Estimated GFR calculated using the 2009 CKD_EPI creatinine equation. Specimen Anatomical Collection Method Collection Time Receive d Time (Source) Location / / Volume Laterality Blood (Blood, 06/28/2021 8:54 AM 06/29/19 9:24 Venous) CDT AM CDT Nalini Rodriguez M.D. LAB BLOOD ADD-ON Performing Organization Address City/State/[facility] Code Phon e Number [facility] - [address] [place], [place] [address] [facility] [place] [address] Laboratories-[address] (ABNORMAL) CBC without Differential (06/28/2021 8:54 AM CDT) Patholo gist Method Time Signature Hemoglobin 9.0 (L) 11.6 - 06/28/2021 DTL 15.0 g/dL 9:22 AM CDT Hematocrit 27.9 (L) 35.5 - 06/28/2021 DTL 44.9 % 9:22 AM CDT Erythrocytes 2.94 (L) 3.92 - 06/28/2021 DTL 5.13 9:22 AM CDT x10(12)/L MCV 94.9 78.2 - 06/28/2021 DTL 97.9 fL 9:22 AM CDT RBC Distrib Width 14.5 12.2 - 06/28/2021 DTL 16.1 % 9:22 AM CDT Platelet Count 367 157 - 371 06/28/2021 DTL x10(9)/L 9:22 AM CDT Leukocytes 10.3 (H) 3.4 - 9.6 06/28/2021 DTL x10(9)/L 9:22 AM CDT Specimen Anatomical Collection Method Collection Time Receive d Time (Source) Location / / Volume Laterality Blood (Blood, 06/28/2021 8:54 AM 06/29/19 9:07 Venous) CDT AM CDT Nalini Rodriguez M.D. LAB BLOOD ADD-ON Performing Organization Address City/State/ZIP Code Phon e Number [facility] - [address] [place], [place] [address] [facility] [place] [address] [facility] [address] documented in this encounter Visit Diagnoses Diagnosis Care And Lactating - Primary Care And Lactating Preeclampsia Severe (HCC) Asthma (HCC) Shortness Of Breath Discomfort Chest documented in this encounter Admitting Diagnoses Diagnosis Care And Lactating documented in this encounter Administered Medications Inactive Administered Medications - up to 3 most recent administrations Medication Order MAR Action Action Date Dose Rate Site acetaminophen tablet 1,000 mg Given 06/29/2021 5:54 AM CDT 1,000 mg (TYLENOL) 1,000 mg, oral, Every 6 hours PRN, mild pain or score 1-3 of 10, Starting on Mon06/28/21 at 0156, Post-, Alternate aceaminophen and ibuprofen with 3 hour intervals. Given 06/28/2021 9:06 PM CDT 1,000 mg Given 06/28/2021 2:55 PM CDT 1,000 mg benzocaine-menthoL 20-0.5 % external spr ay (DERMOPLAST) topical, 4 times daily PRN, irritation, to perineum fo r irritation or pain, Starting on Mon06/28/21 at 0156, Post-, If order ed together, may use in combination with witch matthias-glycerin pad (TUCKS). bisacodyL suppository 10 mg (DULCOLAX) 10 mg, rectal, 2 times daily PRN, consti pation, Starting on Mon06/28/21 at 0156, Post-, Verify rectal route is perm itted. Ordered sequence of administration if both magnesium hydroxide and bisacody l are selected: magnesium hydroxide then bisacodyl until bowel movement achieved. calcium carbonate chewable tablet 400 mg of calcium (TUMS) 400 mg of calcium, oral, Every 2 hour AR N, indigestion, Starting on Mon06/28/21 at 0156, Post-, One 500 mg tablet contains 200 mg o f calcium. 500 mg calcium carbonate contains 200 mg of elemental calcium. docusate sodium capsule 100 mg (COLACE) Given 06/29/2021 8:33 AM CDT 100 mg 100 mg, oral, 2 times daily, First dose on Mon06/28/21 at 0900, Post-, Do NOT crush or chew. Given 06/28/2021 9:06 PM CDT 100 mg Given 06/28/2021 8:58 AM CDT [address] capsule 30 mg (CYMBALTA) Given 06/29/2021 8:33 AM CDT 30 mg 30 mg, oral, Daily, First dose on Mon06/28/21 at 1245, See tube feeding guidelines for tube feeding administration instructions. Given 06/28/2021 12:58 PM CDT 30 mg fluticasone propionate 50 mcg/actuation Given 06/29/2021 8:33 AM CDT 2 sprays nasal spray 2 spray (FLONASE) 2 spray, each nostril, Daily, First dose (after last modification) on Mon06/28/21 at 2000, Every AM: do NetiPot then Flonase then Alleve Given 06/28/2021 9:08 PM CDT 2 sprays ibuprofen tablet 600 mg (ADVIL,MOTRIN) Given 06/29/2021 12:12 AM CDT 600 mg 600 mg, oral, Every 6 hours PRN, mild pain or score 1-3 of 10, Starting on Mon06/28/21 at 0156, Post-, Alternate acetaminophen and ibuprofen with 3 hour intervals. Given 06/28/2021 5:40 PM CDT 600 mg Given 06/28/2021 11:40 AM CDT 600 mg labetaloL tablet 200 mg (NORMODYNE) Given 06/29/2021 5:54 AM CDT 200 mg 200 mg, oral, Every 8 hours, First dose (after last modification) on Mon06/28/21 at 0615 Given 06/28/2021 10:05 PM CDT 200 mg Given 06/28/2021 2:02 PM CDT 200 mg lactated ringers Rate/Dose Verify 06/29/2021 1:00 AM CDT 25 mL/hr 25 mL/hr 25 mL/hr, intravenous, Continuous, Starting on Mon06/28/21 at 0245 Rate/Dose Verify 06/29/2021 12:00 AM CDT 25 mL/hr 25 mL/hr Rate/Dose Verify 06/28/2021 11:00 PM CDT 25 mL/hr 25 mL/hr magnesium hydroxide suspension 30 mL (CO LK OF MAGNESIA) 30 mL, oral, Every 8 hours PRN, constipation, Starting on Mon06/28/21 at 0156, Post-, Ordered sequence of administration if bot h magnesium hydroxide and bisacodyl are selected: magnesium hydroxide then bisac odyl until bowel movement achieved. magnesium sulfate 40 mg/mL Rate/Dose Verify 06/29/2021 1:00 AM CDT 2 g/hr 50 mL/hr in water 500 mL infusion 2 g/hr (50 mL/hr), intravenous, Continuous, Starting on Mon06/28/21 at 0200, 20 grams in 500 mL Rate/Dose Verify 06/29/2021 12:00 AM CDT 2 g/hr 50 mL/hr Rate/Dose Verify 06/28/2021 11:00 PM CDT 2 g/hr 50 mL/hr metoclopramide tablet 10 mg (REGLAN) Given 06/28/2021 12:49 PM CDT 10 mg 10 mg, oral, 4 times daily PRN, Headache, Starting on Mon06/28/21 at 0603, For 4 doses Given 06/28/2021 6:55 AM CDT 10 mg naloxone injection 0.2 mg (NARCAN) 0.2 mg, intravenous, As needed, respirat ory depression, Starting on Mon06/28/21 at 0156, Post-, For respiratory rate less than 8 br eaths per minute or RASS score of -3, -4, -5. Apply oxygen to joaquin p oxygen saturations greater than 90% and notify service. ondansetron ODT disintegrating tablet 4 mg (ZOFRAN-ODT) 4 mg, oral, Every 6 hours PRN, nausea, v omiting, Starting on Mon06/28/21 at 0156, Post-, First line When splitting ODT at bedside, handle with gloves and a pill splitter to prevent moisture contact. sennosides tablet 8.6 mg (SENOKOT) Given 06/28/2021 9:06 PM CDT 8.6 mg 8.6 mg, oral, Daily at bedtime, First dose on Mon06/28/21 at 2100, Post- sodium chloride-sodium bicarbonate nasal rinse 1 application (NEILMED SINUS RINSE) 1 application., each nostril, As needed, congestion, r hinitis, Starting on Mon06/28/21 at 1712 witch matthias pad 1 application (TUCKS) 1 application., topical, 3 times daily P RN, irritation, or pain., Starting on Mon06/28/21 at 0156, Post-, To perineu m - If ordered may use in combination with benzocaine-menthol topical spray (DERMOPLAST) documented in this encounter Active and Recently Administered Medications Due to Daylight Saving Time, this section may contain times in both SUPPLIER QUALITY ENGINEER and CDT. Scheduled Medication Order 06/27/2021 06/28/2021 06/29/2021 docusate sodium capsule 100 mg (COLACE) 0858 (Given - Provider: Sarah Klein RLashawnN.)210 (Given - Provider: Erin Boone R.N.) 08 (Given - Provider: Ariana Shannon RJennifer.) 100 mg, oral, 2 times daily, First dose on Mon06/28/21 at 0900, Post-, Do NOT crush or chew. DULoxetine DR capsule 30 mg (CYMBALTA) 1 258 (Given - Provider: Sarah Klein RJennifer.) 0821 (Given - Provider: Ariana Shannon R.NLashawn) 30 mg, oral, Daily, First dose on Mon at 1245, See tube feeding guidelines for tube feeding administration instructions. fluticasone propionate 50 mcg/actuation nasal spray 2 spray (FLONASE) 2108 (Given - Provider: Erin Boone R.N.) 0833 (Given - Provider: Tong IvanNLashawn) 2 spray, each nostril, Daily, First dose (after last modification) on Mon06/28/21 at 2000, Every AM: do NetiPot then Flonase then Alleve labetaloL tablet 200 mg (NORMODYNE) 0655 (Given - Provider: Skylar Lei R.N.)1402 (Given - Provider: Sarah Klein R.N.)2205 (Given - Provider: Erin Boone R.N.) 0554 (Given - Provider: Haley Green R.N.)1415 (Due) 200 mg, oral, Every 8 hours, First dose (after last modification) on Mon06/28/21 at 0615 sennosides tablet 8.6 mg (SENOKOT) 2106 (Given - Provider: Erin Boone R.N.) 8.6 mg, oral, Daily at bedtime, First dose on Mon06/28/21 at 2100, Post- Continuous Medication Order 06/27/2021 06/28/2021 06/29/2021 lactated ringers 0246 (New Bag - Prov ider: Skylar Lei R.N.)0300 (Rate/Dose Verify - Provider: Skylar Lei R.N.)0400 (Rate/Dose Verify - Provider: Skylar Lei R.N.)0500 (Rate/Dose Verify - Provider: Skylar Lei R.N.) 0000 (Rate/Dose Verify - Provider: Maryuri Green R.N.)0100 (Rate/Dose Verify - Provider: Haley Green R.N.)0200 (Stopped - Provider: Haley Green R.N.) 25 mL/hr, intravenous, Continuous, Starting on Mon06/28/21 a t 0245 0600 (Rate/Dose Verify - Provider: Skylar Lei R.N.)0700 (Rate/Dose Verify - Provider: Skylar Lei R.N.)1200 (Rate/Dose Verify - Provider: Sarah Klein R.N.)2300 (Rate/Dose Verify - Provider: Haley Green R.N.) magnesium sulfate 40 mg/mL in water 500 mL infusion 0245 (New Bag - Provider: Skylar Lei R.N.)0300 (Rate/Dose Verify - Provider: Skylar Lei R.N.)0400 (Rate/Dose Verify - Provider: Skylar Lei R.N.)0500 (Rate/Dose Verify - Provider: Skylar Lei R.N.) 0000 (Rate/Dose Verify - Provider: Haley Green R.N.)0100 (Rate/Dose Verify - Provider: Haley Green R.N.)0200 (Stopped - Provider: Haley Green R.N.) 2 g/hr (50 mL/hr), intravenous, Continuo us, Starting on Mon06/28/21 at 0200, 20 grams in 500 mL 0600 (Rate/Dose Verify - Pro vider: Skylar Lei R.N.)0700 (Rate/Dose Verify - Provider: Skylar Lei R.N.)1200 (Rate/Dose Verify - Provider: Sarah Klein R.N.)1249 (New Bag - Provider: Sarah Klein R.N.) 2230 (New Bag - Prov ider: Erin Boone R.N.)2300 (Rate/Dose Verify - Provider: Haley Green R.N.) PRN Medication Order 06/27/2021 06/28/2021 06/29/2021 acetaminophen tablet 1,000 mg (TYLENOL) 0249 (Given - Provider: Skylar Lei R.N.)0858 (Given - Provider: Sarah Klein R.N.)1455 (Given - Provider: Sarah Klein R.N.)2106 (Given - Provider: Erin Boone R.N.) 0554 (Given - Provider: Haley J Spaid, R.N.) 1,000 mg, oral, Every 6 hours PRN, mild pain or score 1-3 of 10, Starting on Mon06/28/21 at 0156, Post-, Alternate aceaminophen and ibuprofen with 3 hour intervals. benzocaine-menthoL 20-0.5 % external spray (DERMOPLAST) topical, 4 times daily PRN, irritation, to perineum for irritation or pain, Starting on Mon06/28/21 at 0156, Post-, If ordered together, may use in combination with witch matthias-glycerin pad (TUCKS). bisacodyL suppository 10 mg (DULCOLAX) 10 mg, rectal, 2 times daily PRN, consti pation, Starting on Mon06/28/21 at 0156, Post-, Verify rectal route is permitted. Ordered sequence of administration if both magnesium hydroxide and bisacod yl are selected: magnesium hydroxide the n bisacodyl until bowel movement achieved. calcium carbonate chewable tablet 400 mg of calcium (TUMS) 400 mg of calcium, oral, Every 2 hour AR N, indigestion, Starting on Mon06/28/21 at 0156, Post-, One 500 mg tablet contains 200 mg of calcium. 500 mg calcium carbonate contains 200 mg of elemental calcium. ibuprofen tablet 600 mg (ADVIL,MOTRIN) 1 140 (Given - Provider: Sarah Klein RLashawnN.)1740 (Given - Provider: Erin Boone R.N.) 0012 (Given - Provider: Haley Green RLashawnNLashawn) 600 mg, oral, Every 6 hours PRN, mild pa in or score 1-3 of 10, Starting on Mon06/28/21 at 0156, Post-, Alternate acetaminophen and ibuprofen with 3 hour intervals. magnesium hydroxide suspension 30 mL (MILK OF MAGNESIA) 30 mL, oral, Every 8 hours PRN, constipa tion, Starting on Mon06/28/21 at 0156, Post-, Ordered sequence of administration if both magnesium hydroxide and bisacodyl are selected: magnesium hydroxide then bisacodyl until bowel movement achieved. metoclopramide tablet 10 mg (REGLAN) 065 5 (Given - Provider: Skylar Lei R.N.)1249 (Given - Provider: Sarah Klein R.N.) 10 mg, oral, 4 times daily PRN, Headache , Starting on Mon06/28/21 at 0603, For 4 doses naloxone injection 0.2 mg (NARCAN) 0.2 mg, intravenous, As needed, respirat ory depression, Starting on Mon06/28/21 at 0156, Post-, For respiratory rate less than 8 breaths per minute or RASS score of -3, -4, -5. Apply oxygen to joaquin p oxygen saturations greater than 90% and notify service. ondansetron ODT disintegrating tablet 4 mg (ZOFRAN-ODT) 4 mg, oral, Every 6 hours PRN, nausea, v omiting, Starting on Mon06/28/21 at 0156, Post-, First line When splitting ODT at bedside, handle with gloves and a pill splitter to prevent moisture contact. sodium chloride-sodium bicarbonate nasal rinse 1 application (NEILMED SINUS RINSE) 1 application., each nostril, As needed, congestion, rhinitis, Starting on Mon06/28/21 at 1712 witch matthias pad 1 application (TUCKS) 1 application., topical, 3 times daily P RN, irritation, or pain., Starting on Mon06/28/21 at 0156, Post-, To perineum - If ordered may use in combination with benzocaine-menthol topical spray (DERMOPLAST) documented in this encounter Additional Health Concerns Assessment Noted Time PHQ-9 Depression Total Score: 17 07/13/2020 3:09 PM CD T documented as of this encounter
--- OUTSIDE RECORDS SUMMARY | 2022-03-16 15:00 | XMS_ITS | Encounter Summary ---
:1980 Author Organization [facility] Address [address] [place] [address] Care Team Providers Name Role Phone Elsewhere, Pcp Primary Care Provider Unavailable Encounter Details Date Type Department Care Team Description 05/06/2021 Orders Only [facility] Edouard Andrews D.D.[facility] [address] [address] [place] [phone] Social History Tobacco Use Types Packs/Day Years [...] or relatives? How often do you attend orthodox or More than 4 times per year 11/09/2020 pentecostal services? Do you belong to any clubs or No 11/09/2020 organizations such as orthodox groups, unions, fraternal or athletic groups, or [...] to pay for the very basics like [employer] hat hard 11/09/2020 food, housing, medical care, [...] place to sleep or slept in a fpc (including now)? Education Answer Date Recorded What [...] documented as of this encounter Care Teams Chronic Condition Nurse Relationship Specialty Start Date End Date Elsewhere, Pcp PCP - General Internal Medicine 08/31/21 documented as of this encounter
--- OUTSIDE RECORDS SUMMARY | 2022-03-16 15:00 | XMS_ITS | Encounter Summary ---
:1980 Author Organization [facility] Address [address] [place] [address] Care Team Providers Name Role Phone Elsewhere, Pcp Primary Care Provider Unavailable Encounter Details Date Type Department Care Team Description 06/21/2021 Orders Only [facility] Esperanza [place] M.D. [address] [place] [address] [address] [place], [place] [address] [place] [address] [phone] (Wo rk) Social History Tobacco Use Types [...] How often do you attend anabaptist or More than 4 times per year 11/09/2020 jehovah's witness services? Do you belong to any clubs or No 11/09/2020 organizations such as anabaptist groups, unions, fraternal [...] place to sleep or slept in a prison (including now)? Education Answer Date Recorded What [...] documented as of this encounter Care Teams Non Licensed Nuclear Equipment Operator Relationship Specialty Start Date End Date Elsewhere, Pcp PCP - General Internal Medicine 08/31/21 documented as of this encounter
--- OUTSIDE RECORDS SUMMARY | 2022-03-16 15:00 | XMS_ITS | Encounter Summary ---
:[address] [facility] Address [address] [place] [address] Care Team Providers Name Role Phone Elsewhere, Pcp Primary Care Provider Unavailable Encounter Details Date Type Department Care Team Description 06/02/[address] [facility] Nida [place] DLashawnDLashawnS. [address] [place] [address], [address] [place], [place] [address] [facility] [phone] [place], [place] [address] (Wo rk) Social History Tobacco Use Types [...] How often do you attend adventist or More than 4 times per year 11/09/2020 buddhist services? Do you belong to any clubs or No 11/09/2020 organizations such as adventist groups, unions, fraternal [...] documented as of this encounter Care Teams Wet Crown Blocking Operator Relationship Specialty Start Date End Date Elsewhere, Pcp PCP - General Internal Medicine 08/31/21 documented as of this encounter
--- OUTSIDE RECORDS SUMMARY | 2022-03-16 15:00 | XMS_ITS | Encounter Summary ---
:1980 Author Organization [facility] Address [address] [place] [address] Care Team Providers Name Role Phone Elsewhere, Pcp Primary Care Provider Unavailable Encounter Details Date Type Department Care Team Description 06/25/2021 Orders Only [facility] Lin Patel M.D. [address] [address] [place], [place] [address] [phone] Social History Tobacco Use Types Packs/Day Years [...] or relatives? How often do you attend latter day or More than 4 times per year 11/09/2020 christian services? Do you belong to any clubs or No 11/09/2020 organizations such as latter day groups, unions, fraternal or athletic groups, or [...] to pay for the very basics like [employer] hat hard 11/09/2020 food, housing, medical care, [...] place to sleep or slept in a alf (including now)? Education Answer Date Recorded What [...] documented as of this encounter Care Teams Commodities Broker Relationship Specialty Start Date End Date Elsewhere, Pcp PCP - General Internal Medicine 08/31/21 documented as of this encounter
--- OUTSIDE RECORDS SUMMARY | 2022-03-16 15:00 | XMS_ITS | Encounter Summary ---
:1980 Author Organization [facility] Address [address] [place] [address] Care Team Providers Name Role Phone Elsewhere, Pcp Primary Care Provider Unavailable Encounter Details Date Type Department Care Team Description 06/14/2021 Orders Only [facility] Jhonatan Saldaña [facility] Yaniv abraham D.N.P. [address] [place], [place] [address] [place] [address] [phone] (Wo rk) Social History Tobacco Use Types [...] or relatives? How often do you attend temple or More than 4 times per year 11/09/2020 protestant services? Do you belong to any clubs or No 11/09/2020 organizations such as temple groups, unions, fraternal or athletic groups, or [...] documented as of this encounter Care Teams Animal Hospital Clerk Relationship Specialty Start Date End Date Elsewhere, Pcp PCP - General Internal Medicine 08/31/21 documented as of this encounter
--- OUTSIDE RECORDS SUMMARY | 2022-03-16 15:00 | XMS_ITS | Encounter Summary ---
:1980 Author Organization [facility] Address [address] [place] [address] Care Team Providers Name Role Phone Elsewhere, Pcp Primary Care Provider Unavailable Encounter Details Date Type Department Care Team Description 05/21/2021 Orders Only [facility] Nida [place] DLashawnDLashawnS. [address] [place] [address], [address] [place], [place] [address] [facility] [phone] [place], [place] [address] (Wo rk) Social History [...] How often do you attend faith or More than 4 times per year 11/09/2020 restorationism services? Do you belong to any clubs or No 11/09/2020 organizations such as faith groups, unions, fraternal [...] documented as of this encounter Care Teams Control Clerk Head Relationship Specialty Start Date End Date Elsewhere, Pcp PCP - General Internal Medicine 08/31/21 documented as of this encounter
--- OUTSIDE RECORDS SUMMARY | 2022-03-16 15:00 | XMS_ITS | Encounter Summary ---
:1980 Author Organization [facility] Address [address] [place] [address] Care Team Providers Name Role Phone Elsewhere, Pcp Primary Care Provider Unavailable Encounter Details Date Type Department Care Team Description 06/23/2021 Orders Only [facility] Esperanza Barr Falls M.D. [address] [place] [address] [address] [place], [place] [address] [place] [address] [phone] (Wo rk) Social History Tobacco Use Types [...] or relatives? How often do you attend yazidi or More than 4 times per year 11/09/2020 anglican services? Do you belong to any clubs or No 11/09/2020 organizations such as yazidi groups, unions, fraternal or athletic groups, or [...] place to sleep or slept in a snf (including now)? Education Answer Date Recorded What [...] documented as of this encounter Care Teams Tuber Machine Operator Helper Relationship Specialty Start Date End Date Elsewhere, Pcp PCP - General Internal Medicine 08/31/21 documented as of this encounter
--- OUTSIDE RECORDS SUMMARY | 2022-03-16 15:00 | XMS_ITS | Encounter Summary ---
:1980 Author Organization [facility] Address [address] [place] [address] Care Team Providers Name Role Phone Unavailable Primary Care Provider Unavailable Reason for Visit Reason Comments Medical Information Encounter Details Date Type Department Care Team Description 05/05/2021 Nurse Triage Department of [facility] Merly Stuart dicpb Information Medicine, [place] [facility], in [place] [address] [place] [phone] [place] [address] Social History Tobacco Use Types Packs/Day [...] More than 4 times per year 11/09/2020 baptist services? Do you belong to any clubs [...] place to sleep or slept in a detention (including now)? Education Answer Date Recorded What is the highest level of school you have Some college, n o degree 11/17/2019 completed or the highest degree you have received? Sex Assigned at Date Recorded Not on file documented as of this encounter Miscellaneous Notes Telephone Encounter - Merly Stuart, RLashawnN. - 05/05/2021 6:07 PM SALICYLIC ACID BLENDER OB patient from [place] calling with tooth symptoms. Advised that patient go through OB triage asshe is 33 weeks . Patient is in agreement with this plan. CYLIC ACID BLENDER documented in this encounter Plan of Treatment Not on filedocumented as of this encounter Visit Diagnoses Not on filedocumented in this encounter Additional Health Concerns Assessment Noted Time PHQ-9 Depression Total Score: 17 07/13/2020 3:09 PM CD T documented as of this encounter
--- OUTSIDE RECORDS SUMMARY | 2022-03-16 15:00 | XMS_ITS | Encounter Summary ---
:1980 Author Organization [facility] Address [address] [place] [address] Care Team Providers Name Role Phone Elsewhere, Pcp Primary Care Provider Unavailable Encounter Details Date Type Department Care Team Description 06/10/2021 Orders Only [facility] Emery Randall D.D.S. [place] [address] [facility] [phone] [place] [phone] Social History Tobacco Use Types Packs/Day Years [...] or relatives? How often do you attend orthodoxy or More than 4 times per year 11/09/2020 gnosticism services? Do you belong to any clubs or No 11/09/2020 organizations such as orthodoxy groups, unions, fraternal or athletic groups, or [...] to pay for the very basics like [employer] hat hard 11/09/2020 food, housing, medical care, [...] documented as of this encounter Care Teams Wafer Cutter Relationship Specialty Start Date End Date Elsewhere, Pcp PCP - General Internal Medicine 08/31/21 documented as of this encounter
--- OUTSIDE RECORDS SUMMARY | 2022-03-16 15:00 | XMS_ITS | Encounter Summary ---
:1980 Author Organization [facility] Address [address] [place] [address] Care Team Providers Name Role Phone Unavailable Primary Care Provider Unavailable Reason for Visit Reason Comments Migraine Pt presents to ED with a dean huff that started this am. Encounter Details Date Type Department Care Team Description 04/12/2021 Emergency [facility] Atkinson, Deg[place] N, Migra ine Headache Department C.N.P. (Primary Dx) [address] [place] [address] [address] [place] [id number] [phone] Social History Tobacco Use Types Packs/Day Years [...] place to sleep or slept in a halfway (including now)? Education Answer Date Recorded What is the highest level of school you have Some college, n o degree 11/17/2019 completed or the highest degree you have received? Sex Assigned at Date Recorded Not on file documented as of this encounter Last Filed Vital Signs Vital Sign Reading Time Taken Comments Blood Pressure 100/56 04/12/2021 6:45 PM [employer] Pulse 80 04/12/2021 6:45 PM [employer] Temperature 36 ??C (96.8 ??F) 04/12/2021 5:15 PM [employer] Respiratory Rate 18 04/12/2021 6:45 PM [employer] Oxygen Saturation 97% 04/12/2021 6:45 PM [employer] Inhaled Oxygen Concentration - - Weight 99.7 kg (219 lb 12.8 oz) 04/12/2021 5:13 PM [employer] Height - - Body Mass Index 40.2 12/06/2020 4:44 PM CDT documented in this encounter Discharge Instructions Discharge InstructionsZane Atkinson, C.N.P. - 04/12/2021 5:58 PM CST Take Tylenol as needed for your headache closely monitored with her primary provider or health practice manager. Return to the emergency department right away if you develop fever, difficulty with breathing, significant swelling of your leg, vision losses, high blood pressures, or worsening symptoms. T KILN [employer]ACER AttachmentsThe following attachments cannot be sent through Care Everywhere. Migraine Headache [id number]-Powm (Polish)documented in this encounter Medications at Time of Discharge Medication Sig Dispensed Refills Start Date End Date acetaminophen (TYLENOL) Take 650 mg by 0 325 mg tablet mouth every 4 (four) hours as needed for pain. ascorbic acid, vitamin TAKE 1 TABLET BY 100 tablet 3 021 C, (VITAMIN C) 500 mg MOUTH DAILY tablet metroNIDAZOLE (FLAGYL) TAKE 1 TABLET BY 14 tablet 3 021 02/05/2022 500 mg tablet MOUTH TWO TIMES A DAY ondansetron (ZOFRAN) 4 TAKE 1 TABLET BY 30 tablet 2 021 11/19/2021 mg tablet MOUTH EVERY SIX HOURS NEEDED acyclovir (ZOVIRAX) 800 Take 1 tablet (800 35 tablet 0 12/202006/28/2021 mg tablet mg total) by mouth 5 (five) times a day for 7 days. ascorbic acid with rachel 0 11/19/2020 0 06/28/2021 hips 500 mg tablet azithromycin (ZITHROMAX) Take 1 tablet (250 6 tablet 0 06/28/2021 250 mg tablet mg total) by mouth daily. Take 2 tablets (500 mg) on day 1, followed by 1 tablet (250 mg) daily for 4 days. butalbital-acetaminophen Take 1 tablet by 0 12/2808/31/2021 [...] NOT EXCEED 6 TABLETS IN TWENTY-FOUR HOURS cefdinir (OMNICEF) 300 Take 1 capsule (300 14 capsule 0 /09/202006/28/2021 mg capsule mg total) by mouth 2 (two) times a day before breakfast and dinner. cetirizine (ZyrTEC) 10 Take 10 mg by mouth 0 08/0 08/202003/06/2022 mg tablet daily. cetirizine (ZyrTEC) 10 TAKE 1 TABLET BY 90 tablet 3 021 01/05/2022 mg tablet MOUTH DAILY cholecalciferol, vitamin Take 1,000 Units by 0 07/20/2021 D3, (cholecalciferol) mouth daily. 1,000 Unit tablet docusate sodium (COLACE) TAKE 1 CAPSULE BY 100 capsule 1 01/05/2022 100 mg capsule MOUTH TWO TIMES A DAY NEEDED doxylamine 25 mg tablet Take 0.5 tablets 30 tablet 0 202006/28/2021 (12.5 mg total) by mouth 2 (two) times a day as needed for nausea. DULoxetine (CYMBALTA) 20 TAKE 2 CAPSULES BY 180 capsule 0 01/05/[address] capsule MOUTH DAILY DULoxetine (CYMBALTA) 30 Take 1 capsule (30 30 capsule 3 11/202008/31/[address] capsule mg total) by mouth daily. Dose reduction 10/22/20. ferrous sulfate 324 mg TAKE 1 TABLET BY 100 tablet 0 021 01/05/2022 (65 mg iron) DR tablet MOUTH DAILY metoclopramide (REGLAN) 0 01/06/2021 0 06/28/2021 10 mg tablet metoclopramide (REGLAN) TAKE 1 TABLET BY 30 tablet 3 202001/05/2022 10 mg tablet MOUTH THREE TIMES A DAY NEEDED oxyCODONE (ROXICODONE) 5 0 12/29/2020 06/28/2021 mg immediate release tablet PARoxetine (PAXIL) 10 mg TAKE ONE-HALF 15 tablet 0 10/07/19 21 01/05/2022 tablet TABLET BY MOUTH DAILY Take 1 tablet by 100 tablet 11 11/18/2020 06/29/19 [id number] mouth daily. (VINATE ONE) 60 mg iron-1 mg per tablet psyllium seed, with Take by mouth 0 dextrose, (FIBER ORAL) daily. pyridoxine, vitamin B6, Take 1 tablet (50 30 tablet 0 10/2106/28/2021 (vitamin B-6) 50 mg mg total) by mouth tablet daily. sertraline (ZOLOFT) 25 TAKE 1 TABLET BY 7 tablet 0 021 01/05/2022 mg tablet MOUTH DAILY sertraline (ZOLOFT) 50 TAKE 1 TABLET BY 30 tablet 0 021 01/05/2022 mg tablet MOUTH DAILY SUMAtriptan (IMITREX) 50 Take 1 tablet (50 9 tablet 0 10/1606/28/2021 mg tablet mg total) by mouth as needed for migraine. May repeat dose once in 2 hours if migraine unresolved. Do not exceed 200 mg in 24 hours. UNABLE TO FIND Med Name: Thrive, 0 vitamins, shakes, and patches documented as of this encounter ED Notes Zane Atkinson C.NStarr. - 04/12/2021 5:31 PM CST SUBJECTIVE CHIEF COMPLAINT/REASON FOR VISIT Migraine (Pt presents to ED with a migraine that started this am.) HISTORY OF PRESENT ILLNESS Dulce Lei is a 40 y.o. female headache. Patient reports she does have history of migraine headache. She reports she has a headache that started this morning that she describes as her usual migraine headache. She reports she is 29 weeks . She denies any fever, chills, chest pain, shortness of breath, back pain, dizziness, vision problem, or urinary problem. Denies any vaginal bleeding, pelvic pain, or discharge. REVIEW OF SYSTEMS Constitutional: Negative for chills and fever. HENT: Negative for facial swelling. Eyes: Negative for guillermo-orbital edema. Respiratory: Negative for cough and shortness of breath. Cardiovascular: Negative for chest pain and leg swelling. Gastrointestinal: Negative for abdominal pain, diarrhea, nausea and vomiting. Genitourinary: Negative for dysuria, flank pain, frequency and urgency. Musculoskeletal: Negative. Skin: Negative. Negative for pallor. Neurological: Positive for headaches. Psychiatric/Behavioral: Negative. All other systems reviewed and are negative. OBJECTIVE Initial Vitals [04/12/21 1715] Temperature Pulse Rate Heart Rate Resp Rate Blood Pressure SpO2 36 ??C 78 -- 16 126/80 97 % Pain Score 8 PHYSICAL EXAMINATION Constitutional: Nursing note and vitals reviewed. She appears not lethargic. No distress. HENT: Head: Normocephalic. Nose: Nose normal. Eyes: Conjunctivae are normal. Neck: No tracheal deviation present. Pulmonary/Chest: Effort normal. Abdominal: exhibits no distension. Neurological: Alert. Skin: Skin is warm and dry. She is not diaphoretic. Psychiatric: She has a normal mood and affect. ASSESSMENT/PLAN IMPRESSION AND PLAN This is a patient presents due to concern for headache. She is currently 29 weeks . She denies any other neuro symptoms. She states this is her usual migraine. Do not suspect subarachnoid hemorrhage at this time. She has no significant leg swelling. Sub blood pressure is normal. She has no vision issues. She has no respiratory issue. Do not suspect preeclampsia at this time . She has no abdominal or obstetric complaints. She was given lactated Ringer as well as droperidol in the emergency department. She was also given additional Reglan as well as Benadryl in the ED and she did reports symptoms improvement Plan: Discharge home with strict return precaution. Spouse as escort home. DIFFERENTIAL DIAGNOSIS Migraine, subarachnoid hemorrhage, preeclampsia, and others considered Final Diagnoses: as of 04/12/211844 Migraine Headache Zane Atkinson, C.N.P. 04/12/211844 [employer] documented in this encounter Plan of Treatment Not on filedocumented as of this encounter Visit Diagnoses Diagnosis Migraine Headache - Primary documented in this encounter Administered Medications Inactive Administered Medications - up to 3 most recent administrations Medication Order MAR Action Action Date Dose Rate Site diphenhydrAMINE injection 25 mg Given 04/12/2021 6:34 PM [employer] 25 mg (BENADRYL) 25 mg, intravenous, Once, On Mon04/12/21 at 1830, For 1 dose droperidoL injection 1.25 mg (INAPSINE) Given 04/12/2021 5:51 PM [employer] 1.25 mg 1.25 mg, intravenous, Once, On Mon04/12/21 at 1731, For 1 dose lactated Ringer's bolus 1,000 mL New Bag 04/12/2021 5:51 PM [employer] 1,000 mL 1000 mL/hr 1,000 mL, intravenous, at 1,000 mL/hr, Administer over 1 Hours, Once, On Mon04/12/21 at 1731, For 1 dose metoclopramide injection 10 mg (REGLAN) Given 04/12/2021 6:35 PM [employer] 10 mg 10 mg, intravenous, Once, On Mon04/12/21 at 1831, For 1 dose documented in this encounter Active and Recently Administered Medications Times are shown in [employer]. Scheduled Medication Order 04/10/2021 04/11/2021 04/12/2021 diphenhydrAMINE injection 25 mg (BENADRYL) (COMPLETED) 183 (Given - Provider: Garrett Drake R.N.) 25 mg, intravenous, Once, On Mon04/12/21 at 1830, For 1 dose droperidoL injection 1.25 mg (INAPSINE) (COMPLETED) 175 (Given - Provider: Garrett Drake R.N.) 1.25 mg, intravenous, Once, On Mon04/12/21 at 1731, For 1 dose lactated Ringer's bolus 1,000 mL (COMPLETED) 175 (New Bag - Provider: Garrett Drake R.N.)1855 (Stopped - Provider: Garrett Drake R.N.) 1,000 mL, intravenous, at 1,000 mL/hr, A dminister over 1 Hours, Once, On Mon04/12/21 at 1731, For 1 dose metoclopramide injection 10 mg (REGLAN) (COMPLETED) 183 (Given - Provider: Garrett Drake R.N.) 10 mg, intravenous, Once, On Mon04/12/21 at 1831, For 1 dose documented in this encounter Additional Health Concerns Assessment Noted Time PHQ-9 Depression Total Score: 17 07/13/2020 3:09 PM CD T documented as of this encounter
--- OUTSIDE RECORDS SUMMARY | 2022-03-16 15:00 | XMS_ITS | Encounter Summary ---
:1980 Author Organization [facility] Address [address] [place] [address] Care Team Providers Name Role Phone Elsewhere, Pcp Primary Care Provider Unavailable Encounter Details Date Type Department Care Team Description 06/22/2021 Orders Only [facility] Esperanza [place] M.D. [address] [place] [address] [address] [place], [place] [address] [place] [address] [phone] (Wo rk) Social History Tobacco Use Types [...] How often do you attend sabianism or More than 4 times per year 11/09/2020 buddhism services? Do you belong to any clubs or No 11/09/2020 organizations such as sabianism groups, unions, fraternal [...] place to sleep or slept in a residential (including now)? Education Answer Date Recorded What [...] documented as of this encounter Care Teams County Director Relationship Specialty Start Date End Date Elsewhere, Pcp PCP - General Internal Medicine 08/31/21 documented as of this encounter
--- OUTSIDE RECORDS SUMMARY | 2022-03-16 15:00 | XMS_ITS | Encounter Summary ---
:1980 Author Organization [facility] Address [address] [place] [address] Care Team Providers Name Role Phone Elsewhere, Pcp Primary Care Provider Unavailable Encounter Details Date Type Department Care Team Description 04/19/2021 Orders Only [facility] Jhonatan Saldaña [facility] Yaniv abraham D.N.P. [address] [place], [place] [address] [place] [address] [phone] (Wo rk) Social History Tobacco Use Types [...] How often do you attend yazidism or More than 4 times per year 11/09/2020 congregational services? Do you belong to any clubs or No 11/09/2020 organizations such as yazidism groups, unions, fraternal [...] to sleep or slept in a senior care (including now)? Education Answer Date Recorded What [...] documented as of this encounter Care Teams Infusion Therapy Nurse Relationship Specialty Start Date End Date Elsewhere, Pcp PCP - General Internal Medicine 08/31/21 documented as of this encounter
--- OUTSIDE RECORDS SUMMARY | 2022-03-16 15:00 | XMS_ITS | Encounter Summary ---
:1980 Author Organization [facility] Address [address] [place] [address] Care Team Providers Name Role Phone Elsewhere, Pcp Primary Care Provider Unavailable Encounter Details Date Type Department Care Team Description 07/19/2021 Orders Only [facility] Alia Roberts, Jhonatan Purvis C.N.P. [address] [place]honatan [place] [id number] [phone] Social History Tobacco Use Types Packs/Day Years [...] or relatives? How often do you attend methodist or More than 4 times per year 11/09/2020 gnosticism services? Do you belong to any clubs or No 11/09/2020 organizations such as methodist groups, unions, fraternal or athletic groups, or [...] documented as of this encounter Care Teams Groundsman Relationship Specialty Start Date End Date Elsewhere, Pcp PCP - General Internal Medicine 08/31/21 documented as of this encounter
--- OUTSIDE RECORDS SUMMARY | 2022-03-16 15:00 | XMS_ITS | Encounter Summary ---
:1980 Author Organization [facility] Address [address] [place] [address] Care Team Providers Name Role Phone Elsewhere, Pcp Primary Care Provider Unavailable Encounter Details Date Type Department Care Team Description 04/28/2021 Orders Only [facility] Lin Patel M.D. [address] [address] [place], [place] [address] [phone] Social History Tobacco Use Types Packs/Day Years [...] How often do you attend mosque or More than 4 times per year 11/09/2020 mandaen services? Do you belong to any clubs or No 11/09/2020 organizations such as mosque groups, unions, fraternal [...] to pay for the very basics like [employer] hat hard 11/09/2020 food, housing, medical care, [...] place to sleep or slept in a penitentiary (including now)? Education Answer Date Recorded What [...] documented as of this encounter Care Teams Cupola Worker Relationship Specialty Start Date End Date Elsewhere, Pcp PCP - General Internal Medicine 08/31/21 documented as of this encounter
--- OUTSIDE RECORDS SUMMARY | 2022-03-16 15:00 | XMS_ITS | Encounter Summary ---
:1980 Author Organization [facility] Address [address] [place] [address] Care Team Providers Name Role Phone Unavailable Primary Care Provider Unavailable Reason for Visit Reason Comments Hypertension 5 days post Encounter Details Date Type Department Care Team Description 06/27/2021 - Emergency [place] Atkinson, [place] N, Unspecified Mat mesfin 06/28/2021 Emergency Department C.N.P. Hypertension [id number] [facility] Complicating [facility] [place], [place] ([facility]) (Dena mcguire Dx) [id number] Social History Tobacco Use Types Packs/Day Years [...] or relatives? How often do you attend synagogue or More than 4 times per year 11/09/2020 christian services? Do you belong to any clubs or No 11/09/2020 organizations such as synagogue groups, unions, fraternal or athletic groups, or [...] Sign Reading Time Taken Comments Blood Pressure 166/119 06/28/2021 1:00 AM CDT Pulse 75 06/28/2021 1:00 AM CDT Temperature 36.5 ??C (97.7 ??F) 06/27/2021 8:45 PM CDT Respiratory Rate 20 06/28/2021 1:00 AM CDT Oxygen Saturation 93% 06/28/2021 1:00 AM CDT Inhaled Oxygen Concentration - - Weight 95.8 kg (211 lb 3.2 oz) 06/27/2021 8:47 PM CDT Height - - Body Mass Index 38.63 12/06/2020 4:44 PM CDT documented in this [...] DOSE OF 4 TABLETS PER 24 HOURS metroNIDAZOLE (FLAGYL) TAKE 1 TABLET BY 14 [...] total) by mouth daily. Dose reduction 10/22/20. famotidine (PEPCID) 10 TAKE 1 TABLET BY [...] capsule CAPSULES BY MOUTH DAILY labetaloL (NORMODYNE) Take 200 mg by 0 06/25/2021 06/29/2021 100 mg tablet mouth every 12 (twelve) hours. labetaloL (NORMODYNE) TAKE 2 TABLETS BY 120 tablet 0 022 01/05/2022 100 mg tablet MOUTH TWO TIMES A DAY labetaloL (NORMODYNE) Take 1 tablet (200 90 tablet 2 202108/31/2021 200 mg tablet mg total) by mouth every 8 (eight) hours. magnesium oxide (MAG-OX) TAKE 1 TABLET BY [...] as of this encounter ED Notes Zane Atkinson, SavannahN.P. - 06/27/2021 9:06 PM CDT SUBJECTIVE CHIEF COMPLAINT/REASON FOR VISIT Hypertension (5 days post ) HISTORY OF PRESENT ILLNESS Dulce Lei is a 41 y.o. female who is 5 days who presents to the ED concerning for hypertension. Patient reports she had a follow-up with the OBGYN clinic on Monday and she wasnoted to have a high blood pressure at that time. She reports she did have workup done at that time to rule out preeclampsia and was negative and discharged home afterward. She was then started on labetalol. Since delivery she has been having headache that she describes a 4/10. She does endorse lightheadedness since that time as well. She also endorse pain to the right ribcage along with chest tightness to the substernal area. She describes the tightness started about 2:00 p.m. today and has been constant. She does endorse feeling short of breath. She does have bilateral +1 low ankle swelling. She denies any vision changes. She denies any urinary symptoms. REVIEW OF SYSTEMS Constitutional: Negative for chills and fever. HENT: Negative for facial swelling. Eyes: Negative for guillermo-orbital edema. Respiratory: Positive for chest tightness and shortness of breath. Negative for cough. Cardiovascular: Positive for leg swelling. Gastrointestinal: Negative. Genitourinary: Negative for dysuria, flank pain, frequency and urgency. Musculoskeletal: Negative. Skin: Negative. Neurological: Negative. Psychiatric/Behavioral: Negative. All other systems reviewed and are negative. OBJECTIVE Initial Vitals Temperature Pulse Rate Heart Rate Resp Rate Blood Pressure SpO2 06/27/21204406/27/21204406/27/21 2210 06/27/21204406/27/21204406/27/212044 36.5 ??C 82 77 18 (!) 158/106 95 % Pain Score 06/27/212045 2 PHYSICAL EXAMINATION Constitutional: Nursing note and vitals reviewed. She appears not lethargic. No distress. HENT: Head: Normocephalic. Nose: Nose normal. Eyes: Conjunctivae are normal. Neck: No tracheal deviation present. Pulmonary/Chest: Effort normal and breath sounds normal. Abdominal: exhibits no distension. There is no abdominal tenderness. Neurological: Alert. Skin: Skin is warm and dry. She is not diaphoretic. Psychiatric: She has a normal mood and affect. ASSESSMENT/PLAN IMPRESSION AND PLAN This patient presents concerning for hypertension. Has been having symptom of chest tightness along with shortness of breath and lightheadedness and headache since this past Monday. She did deliver thebaby via vaginal deliveries on June 22, 2021. Currently was placed on labetalol 200 mg 2 times a dayfor hypertension after clinic visit on Monday. Her blood pressure today was elevated at 158/106. Creatinine is normal at 0.59. Normal ALT at 15. Platelets 379. No evidence of HELLP syndrome. Her urine protein mild increased at 30 mg/dl. Her proBNP elevated at 551 which given her age concerning forCHF. With the proteinuria and the elevated proBNP and high blood pressure, concerning for preeclampsia. Discussed patient's case with the on-call OBGYN at [facility], Dr. Hampton, who states given the patient's normal kidney function and liver function, less suspicion for preeclampsia but there is concern for possibility of cardiomyopathy given the elevated BNP. The do not have a bed at [facility] for general floor. Discussed patient's case with the on-call OBGYN in [place], Dr. Burrell.She recommends patient started on 4 g of Mag sulfate bolus and then 2 grams/hour afterward. Patient was also given a total of 50 mg of labetalol IV. She kindly accepts for transfer. Plan: Discussed plan of care with the patient and she agrees with plan of care for transfer. Dr. Burrell kindly accepting to Labor and delivery in [place]. Stable for ALS. DIFFERENTIAL DIAGNOSIS ACS, pulmonary edema, preeclampsia, HELLP syndrome, and others considered. I personally reviewed the lab result(s) and my interpretation is abnormal. Case reviewed with other health neurocritical care physician, including Admitting Provider. ED Course as of 06/28/21 010 [place] Jun 27, [id number] Blood Pressure(!): 158/106 2134 Platelet Count(!): 379 2139 Creatinine, P: 0.59 2140 Alanine Aminotransferase (ALT), P: 15 2143 Protein Urine Random(!): 30 2147 NT-Pro BNP, P(!): 551 2210 White Blood Cells(!): 11-20 2210 Bacteria(!): Present 2221 Blood Pressure(!): 164/103 2226 Leukocyte Esterase(!): Trace 2227 Bacteria(!): Present 2227 White Blood Cells(!): 11-20 Patient was treated for UTI prior to vaginal delivery. Patient denies any urinary symptoms. Given asymptomatic, do not feel treatment is necessary at this time. 2342 2H Delta Interp: Not Changing Mon Jun 28, 2021 0002 NT-Pro BNP, P(!): 551 0005 Discussed with OBGYN in [place]. She states given normal kidney and liver function, less likely preeclampsia. However, possibility of cardiomyopathy given the elevated proBNP. She does not feel patient needs to be admitted to the floor but the will reach out to house for General Medicine admission. Awaiting return call. 0100 EMS arrived. No magnesium ready at this time. To prevent delay, did advise EMS to give 5 g of Mag sulfate over 30 minute as they do have the 5 g Mag sulfate instead of 4 g. Final Diagnoses: as of 06/28/21 010 Unspecified Maternal Hypertension Complicating [facility] (HCC) Zane Atkinson C.N.P. 06/28/21 0033 Jazmyne De La Fuente R.N. - 06/27/2021 8:53 PM CDT Pt presents to ED with concerns over high blood pressure. She states she delivered a baby on 06/22 andat her followup on 06/25 they noted her to be hypertensive. She denies having any issues with blood pressure during her . She states feeling weird and light headed. She was started on Labetolol on Monday. Jazmyne De La Fuente R.N. 06/27/212055 documented in this encounter Plan of Treatment Not on filedocumented as of this encounter Procedures Procedure Name Priority Date/Time Associated Comments Diagnosis SARS CORONAVIRUS 2, STAT 06/28/2021 12:50 Resu lts for PCR RAPID, V AM CDT this procedure are in the results section. TROPONIN T, 2H/6H, Timed 06/27/2021 11:12 Resul ts for 5TH GEN, P PM CDT this procedure are in the results section. CT CHEST ANGIOGRAM RAD - Semiurgent 06/27/2021 10:30 R esults for AND PULMONARY (Fast; most ED PM CDT this procedu re ARTERIES WITH IV patients; some are in th e CONTRAST inpatients) results section. TROPONIN T, STAT 06/27/2021 9:36 Results for BASELINE, 5TH GEN, P PM CDT this pr ocedure are in the results section. ECG STAT 06/27/2021 9:28 Results for PM CDT this procedure are in the results section. URINALYSIS WITH STAT 06/27/2021 9:24 Results f or MICROSCOPIC PM CDT this procedure are in the results section. MORPHOLOGY STAT 06/27/2021 9:09 Results for EVALUATION PM CDT this procedure are in the results section. PROTHROMBIN TIME STAT 06/27/2021 9:09 Results for (PT), P PM CDT this procedure are in the results section. D-DIMER, P STAT 06/27/2021 9:09 Results for PM CDT this procedure are in the results section. CBC WITH STAT 06/27/2021 9:09 Results for DIFFERENTIAL, B PM CDT this procedu re are in the results section. COMPREHENSIVE STAT 06/27/2021 9:09 Results for METABOLIC PANEL, S/P PM CDT this pr ocedure are in the results section. NT-PRO B-TYPE STAT 06/27/2021 9:02 Results for NATRIURETIC PEPTIDE PM CDT this pro cedure (BNP), S are in the results section. documented in this encounter Results SARS Coronavirus 2, PCR Rapid, V Symptomatic (06/28/2021 12:50 AM CDT) [facility] Method Time Signature SARS CoV-2, Undetected Undetected 06/28/2021 [facility] PCR, Rapid, V 1:12 AM CDT Comment: ----ADDITIONAL INFORMATION---- This RT-PCR test was performed using the Chris SARS-CoV-2 and Influenza A/B Reagent assay from [employer], which has received Emergency Use Authori zation(EUA) by the U.S. Food and Drug Administration . Fact sheets for this Emergency Use Autho rization (EUA) assay can be found at the following link s: For Healthcare Providers: https://www.fda.gov/media/880618/downloa d For Patients: https://www.fda.gov/media/913007/downloa d SARS Coronavirus 2, Source, Swab, Nasopharynx 06/15 12:51 AM CDT [facility] Rapid Specimen Anatomical Collection Method Collection Time Receive d Time (Source) Location / / Volume Laterality Varies 06/28/2021 12:50 06/28/2021 (Nasopharynx) AM CDT 12:51 AM CDT Zane N China C.N.P. LAB MICROBIOLOGY - GENERAL O RDERABLES Performing Organization Address City/State/ZIP Code Phon e Number [facility]- [address] [place] [address] [place] [address] (ABNORMAL) Troponin T, 2H/6H, 5th Gen (06/27/2021 11:12 PM CDT) athologist Signature Troponin T, 2 14 (H) <=10 ng/L 06/27/2021 CNFL hr, 5th gen 11:42 PM CDT Comment: Biotin has been identified by the angelo cturer as a potential interfering substance. ??Higher concentr ations of biotin may be found in multivitamins, hair/nail supple ments, and workout supplements. ??If the result does not [facility] clinical observations, repeat testing after patient refrains fr om the use of supplements for at least 12 hours. 2H Delta -1 ng/L 06/27/2021 11:42 PM CDT CNFL 2H Delta Interp Not Changing 06/27/2021 11:42 PM C DT CNFL Troponin T, 6 hr, 5th gen CANCELED ng/L 06/27/2021 11: 42 PM CDT CNFL Comment: Result canceled by the kari reveles Specimen Anatomical Collection Method Collection Time Receive d Time (Source) Location / / Volume Laterality Blood (Blood, 06/27/2021 11:12 06/27/2021 Venous) PM CDT 11:16 PM CDT Narrative [facility] - 06/27/2021 11:42 PM CDT Specimen Information: Specimen ID: [id number] Specimen Type: Blood Specimen Collection Start Date: 06/28/19 11:12 PM Specimen Received Date: 06/27/2021 11:16 PM Specimen ID: [id number] Specimen Type: Blood [place] N Atkinson C.N.P. LAB BLOOD TROPONIN Performing Organization Address City/State/ZIP Code Phon e Number [address] [address] [place] [address] Chest Angiogram and Pulmonary Arteries with IV Contrast (06/27/2021 10:30 PM CDT) Anatomical Region Laterality Modality Chest, Cardiovascular RST LOS, Thoracic ARZ LOS, N/A Computed Tomography Thoracic FLA LOS Specimen (Source) Anatomical Collection Method Collection Time Re ceived Time Location / / Volume Laterality 06/27/2021 10:34 PM CDT Impressions 06/27/2021 11:08 PM CDT 1. ??Negative for acute pulmonary embolism. Narrative 06/27/2021 11:08 PM CDT EXAM: CT CHEST ANGIOGRAM AND PULMONARY ARTERIES WITH IV CONTRAST Including 3-D image postprocessing. COMPARISON: None FINDINGS: Lower Neck / Thoracic inlet: No patholog ically enlarged lymph nodes. Mediastinum: No pathologically enlarged lymph nodes. Heart/great vessels: No enlarging aneury sm or evidence of acute aortic injury. No CT evidence of acute pulmonary embolism. Lung/pleura: No pneumothorax. No evidenc e of pneumonia. Chest wall soft tissues/axilla: No patho logically enlarged lymph nodes. No hematoma or abnormal soft tissue mass. Bones/soft tissues: No abnormal soft tis mickie mass or acute fracture. Upper abdomen: Colonic diverticulosis wi thout evidence of acute diverticulitis. Procedure Note Basil Watson M.D. - 06/27/2021Format ting of this note might be different from the original. EXAM: CT CHEST ANGIOGRAM AND PULMONARY A RTERIES WITH IV CONTRAST Including 3-D image postprocessing. COMPARISON: None FINDINGS: Lower Neck / Thoracic inlet: No patholog ically enlarged lymph nodes. Mediastinum: No pathologically enlarged lymph nodes. Heart/great vessels: No enlarging aneury sm or evidence of acute aortic injury. No CT evidence of acute pulmonary embolism. Lung/pleura: No pneumothorax. No evidenc e of pneumonia. Chest wall soft tissues/axilla: No patho logically enlarged lymph nodes. No hematoma or abnormal soft tissue mass. Bones/soft tissues: No abnormal soft tis mickie mass or acute fracture. Upper abdomen: Colonic diverticulosis wi thout evidence of acute diverticulitis. IMPRESSION: 1. Negative for acute pulmonary embolism . [place] N Atkinson C.N.P. IMG CT PROCEDURES (ABNORMAL) Troponin T, Baseline, 5th gen (06/27/2021 9:36 PM CDT) P athologist Signature Troponin T, 15 (H) <=10 ng/L 06/27/2021 CNFL Baseline, 5th 9:47 PM CDT gen Comment: Biotin has been identified by the angelo cturer as a potential interfering substance. ??Higher concentr ations of biotin may be found in multivitamins, hair/nail supple ments, and workout supplements. ??If the result does not [facility] clinical observations, repeat testing after patient refrains fr om the use of supplements for at least 12 hours. Specimen Anatomical Collection Method Collection Time Receive d Time (Source) Location / / Volume Laterality Blood (Blood, 06/27/2021 9:36 PM 06/28/19 9:36 Venous) CDT PM CDT Zane Leon.N.P. LAB BLOOD TROPONIN Performing Organization Address City/[facility] Phon e Number [address] [address] [place] [address] ECG 12 Lead (06/27/2021 9:28 PM CDT) P athologist Signature Ventricular Rate 72 BPM MUSE ECG/Min DE Interval 142 ms MUSE QRSD Interval 80 ms MUSE QT Interval 368 ms MUSE QTC Interval 402 ms MUSE P [place] 13 degrees MUSE R [place] 37 degrees MUSE T Wave [place] 25 degrees MUSE Specimen Anatomical Collection Method Collection Time Receive d Time (Source) Location / / Volume Laterality 06/27/2021 9:28 PM 9:34 CDT PM CDT Impressions MUSE - 06/27/2021 9:35 PM CDT Normal sinus rhythm with sinus arrhythmia Normal ECG No previous ECGs available Reviewed by ARTEMIO Oh Narrative This result has an attachment that is no t available. Procedure Note Curtis Nazario M.D. - 06/27/2021 IMPRESSION: Normal sinus rhythm with sinus arrhythmi a Normal ECG No previous ECGs available Reviewed by ARTEMIO Oh Znae NuñezN.P. ECG ORDERABLES Performing Organization Address City/[facility] Code Phon e Number MUSE MUSE NA (ABNORMAL) Urinalysis with Microscopic: Urine, Midstream (06/27/2021 9:24 PM CDT) Analysis Performed At Patho logist Time Signature Source Urine, Urine, 06/27/2021 CNFL Midstream 9:37 PM CDT Clarity Clear Clear 06/27/2021 CNFL 9:42 PM CDT Color Yellow 06/27/2021 CNFL 9:42 PM CDT Comment: ----REFERENCE VALUE---- Colorless Yellow Aubrie Blood Moderate (A) Negative 06/27/2021 9:42 PM CDT CNFL Nitrite Negative Negative 06/27/2021 9:42 PM CDT CNFL Leukocyte Esterase Trace (A) Negative 06/27/2021 9:42 PM CD T CNFL Protein 30 (A) mg/dL 06/27/2021 9:42 PM CDT CNFL Comment: ----REFERENCE VALUE---- Negative Trace Glucose Negative Negative mg/dL 06/27/2021 9:42 PM CDT CN FL Ketones, QI(U) Negative Negative mg/dL 06/27/2021 9:42 PM C DT CNFL Bilirubin Negative Negative 06/27/2021 9:42 PM CDT CNFL pH 6.5 5.0 - 8.0 06/27/2021 9:42 PM CDT CNFL Specific Beeler >=1.030 1.001 - 1.035 06/27/2021 9:42 PM CDT CNFL Urobilinogen 0.2 0.2 - 1.0 mg/dL 06/27/2021 9:42 PM CD T CNFL White Blood Cells 11-20 (A) /hpf 06/27/2021 9:58 PM CDT CNFL Comment: ----REFERENCE VALUE---- Males: 0-3 Females: 0-10 Unknown: 0-10 Red Blood Cells 11-20 (A) 0 - 2 /hpf 06/27/2021 9:58 PM CDT CNFL Dysmorphic Red Blood Cells <=25 <=25 % 06/27/2021 9: 58 PM CDT CNFL Mucus Present /hpf 06/27/2021 9:58 PM CDT CNFL Squamous Cells Occ-3 /hpf 06/27/2021 9:58 PM CDT CN FL Transitional Cells Occ-3 (A) None Seen /hpf 06/27/2021 9:58 PM CDT CNFL Renal Cells Occ-3 (A) None Seen /hpf 06/27/2021 9:58 PM CDT CNFL Bacteria Present (A) None Seen 06/27/2021 9:58 PM CDT FL Specimen Anatomical Collection Method Collection Time Receive d Time (Source) Location / / Volume Laterality Urine (Urine, 06/27/2021 9:24 PM 06/28/19 9:37 Midstream) CDT PM CDT Zane Atkinson C.N.P. LAB URINE ORDERABLES Performing Organization Address [facility] Phon e Number [address] [address] [place] [address] System [address] (ABNORMAL) Morphology Evaluation (06/27/2021 9:09 PM CDT) Patholo gist Method Time Signature RBC Morphology See Specific 06/27/2021 CNFL Findings 10:24 PM CDT PLT Morphology Normal 06/27/2021 CNFL 10:24 PM CDT PLT Estimate Increased (A) Adequate 06/27/2021 CNFL 10:24 PM CDT Anisocytosis Slight (A) 06/27/2021 CNFL 10:24 PM CDT Microcytosis Slight (A) Not Seen 06/27/2021 CNFL 10:24 PM CDT Specimen Anatomical Collection Method Collection Time Receive d Time (Source) Location / / Volume Laterality Blood 06/27/2021 9:09 PM 9:11 CDT PM CDT Zane Atkinson C.N.P. LAB BLOOD ADD-ON Performing Organization Address [facility] Phon e Number [address] [address] [place] [address] (ABNORMAL) D-Dimer (06/27/2021 9:09 PM CDT) P athologist Signature D-Dimer, P 1470 (H) <=500 ng/mL 06/27/2021 CNFL FEU 9:56 PM CDT Comment: ----ADDITIONAL INFORMATION---- D-dimer values less than or equal to 500 ng/mL fibrinogen equivalent units (FEU) may be used in co njunction with clinical pre-test probability to exclude deep vein thrombosis (DVT) and/or pulmonary emboli sm (PE). Specimen Anatomical Collection Method Collection Time Receive d Time (Source) Location / / Volume Laterality Blood (Blood, 06/27/2021 9:09 PM 06/28/19 9:11 Venous) CDT PM CDT Zane Leon.N.P. LAB BLOOD ADD-ON Performing Organization Address [facility] Phon e Number [address] [address] [place] [address] [address] Prothrombin Time (PT) (06/27/2021 9:09 PM CDT) athologist Signature Prothrombin 10.7 9.4 - 12.5 06/27/2021 CNFL Time, P sec 9:22 PM CDT INR 1.0 0.9 - 1.1 06/27/2021 CNFL 9:22 PM CDT Comment: ----ADDITIONAL INFORMATION---- Standard intensity warfarin therapeutic range: 2.0 to 3.0 ?? High intensity warfarin therapeutic rang e: 2.5 to 3.5 Specimen Anatomical Collection Method Collection Time Receive d Time (Source) Location / / Volume Laterality Blood (Blood, 06/27/2021 9:09 PM 06/28/19 9:11 Venous) CDT PM CDT Zane Leon.N.P. LAB BLOOD ADD-ON Performing Organization Address [facility] Phon e Number [address] [address] [place] [address] [address] (ABNORMAL) Comprehensive Metabolic Panel (06/27/2021 9:09 PM CDT) P athologist Signature Potassium, P 4.1 3.6 - 5.2 06/27/2021 CNFL mmol/L 9:33 PM CDT Sodium, P 138 135 - 145 06/27/2021 CNFL mmol/L 9:33 PM CDT Chloride, P 106 98 - 107 06/27/2021 CNFL mmol/L 9:33 PM CDT Bicarbonate, P 21 (L) 22 - 29 06/27/2021 CNFL mmol/L 9:33 PM CDT Anion Gap, P 11 7 - 15 06/27/2021 CNFL 9:33 PM CDT BUN (Blood Urea 16 6 - 21 06/27/2021 CNFL Nitrogen), P mg/dL 9:33 PM CDT Creatinine 0.59 0.59 - 06/27/2021 CNFL 1.04 mg/dL 9:33 PM CDT eGFR-Black/Afri >90 >=60 06/27/2021 CNFL can English mL/min/BSA 9:33 PM CDT Comment: ----ADDITIONAL INFORMATION---- Estimated GFR calculated using the 2009 CKD_EPI creatinine equation. eGFR Non-Black/ >90 >=60 mL/min/BSA 06/27/2021 9:33 PM CDT CNFL Comment: ----ADDITIONAL INFORMATION---- Estimated GFR calculated using the 2009 CKD_EPI creatinine equation. Calcium, Total, P 8.8 8.6 - 10.0 mg/dL 06/27/2021 9:33 PM CDT CNFL Glucose, P 97 70 - 140 mg/dL 06/27/2021 9:33 PM CDT C NFL Protein, Total, P 5.7 (L) 6.3 - 7.9 g/dL 06/27/2021 9:33 P M CDT CNFL Albumin, P 3.1 (L) 3.5 - 5.0 g/dL 06/27/2021 9:33 PM CDT C NFL Aspartate Aminotransferase 20 8 - 43 U/L 06/27/2021 9 :33 PM CDT CNFL (AST), P Alkaline Phosphatase, P 113 (H) 35 - 104 U/L 06/27/2021 9: 33 PM CDT CNFL Alanine Aminotransferase 15 7 - 45 U/L 06/27/2021 9:3 3 PM CDT CNFL (ALT), P Bilirubin, Total, P <0.2 <=1.2 mg/dL 06/27/2021 9:33 PM CDT CNFL Specimen Anatomical Collection Method Collection Time Receive d Time (Source) Location / / Volume Laterality Blood (Blood, 06/27/2021 9:09 PM 06/28/19 9:11 Venous) CDT PM CDT Zane Atkinson C.N.P. LAB BLOOD ADD-ON Performing Organization Address City/State/ZIP Code Phon e Number [facility]- [address] [place] [phone] [place] [address] (ABNORMAL) CBC with Differential, Blood (06/27/2021 9:09 PM CDT) [facility] Method Time Signature Hemoglobin 9.0 (L) 11.6 - 06/27/2021 CNFL 15.0 g/dL 9:31 PM CDT Hematocrit 28.7 (L) 35.5 - 06/27/2021 CNFL 44.9 % 9:31 PM CDT Erythrocytes 2.94 (L) 3.92 - 06/27/2021 CNFL 5.13 9:31 PM CDT x10(12)/L MCV 97.6 78.2 - 06/27/2021 CNFL 97.9 fL 9:31 PM CDT RBC Distrib Width 14.2 12.2 - 06/27/2021 CNFL 16.1 % 9:31 PM CDT Platelet Count 379 (H) 157 - 371 06/27/2021 CNFL x10(9)/L 9:31 PM CDT Leukocytes 11.9 (H) 3.4 - 9.6 06/27/2021 CNFL x10(9)/L 10:24 PM CDT Neutrophils 7.03 (H) 1.56 - 06/27/2021 CNFL 6.45 10:24 PM CDT x10(9)/L Lymphocytes 3.54 (H) 0.95 - 06/27/2021 CNFL 3.07 10:24 PM CDT x10(9)/L Monocytes 0.95 (H) 0.26 - 06/27/2021 CNFL 0.81 10:24 PM CDT x10(9)/L Eosinophils 0.34 0.03 - 06/27/2021 CNFL 0.48 10:24 PM CDT x10(9)/L Basophils 0.08 0.01 - 06/27/2021 CNFL 0.08 10:24 PM CDT x10(9)/L Specimen Anatomical Collection Method Collection Time Receive d Time (Source) Location / / Volume Laterality Blood (Blood, 06/27/2021 9:09 PM 06/28/19 22 9:11 Venous) CDT PM CDT Zane NuñezN.P. LAB BLOOD ADD-ON Performing Organization Address City/[facility] Phon e Number [place] [address] [place] [address] [place] [address] System in [place] [address] [address] (ABNORMAL) NT-Pro B-Type Natriuretic Peptide (BNP) (06/27/2021 9:02 PM CDT) athologist Signature NT-Pro BNP 551 (H) <=140 pg/mL 06/27/2021 [facility] 9:44 PM CDT Comment: NT-proBNP values less than 300 pg/mL hav e a 99% negative predictive value for excluding acute congestive heart roberto lure. A cutoff of 1200 pg/mL for patients with an eGFR<60 yields a diagno stic sensitivity and specificity of 89% and 72% for acute congestive heart f ailure. ??NT-proBNP values greater than 450 pg/mL are consistent with CHF i n adults under 50 years of age. Biotin has been identified by the angelo ware as a potential interfering substance. ??Higher concentr ations of biotin may be found in multivitamins, hair/nail supple ments, and workout supplements. ??If the result does not [facility] clinical observations, repeat testing after patient refrains fr om the use of supplements for at least 12 hours. Specimen Anatomical Collection Method Collection Time Receive d Time (Source) Location / / Volume Laterality Blood (Blood, 06/27/2021 9:02 PM 06/28/19 22 9:20 Venous) CDT PM CDT Zane NuñezN.P. 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 documented in this encounter Administered Medications Inactive Administered Medications - up to 3 most recent administrations Medication Order MAR Action Action Date Dose Rate Site iohexoL (OMNIPAQUE) 350 mg iodine/mL malina ution - ADS Override Pull Starting on 06/27/21 at 2213, For 1 dose, Created b y cabinet override iohexoL 350 mg iodine/mL solution 125 mL Given 06/27/2021 10:33 PM CDT 125 mL (OMNIPAQUE) 125 mL, intravenous, Once in imaging, contrast, Starting on 06/27/21 at 2211, For 1 dose labetalol injection 10 mg Given 06/27/2021 10:11 PM CDT 10 mg (NORMODYNE,TRANDATE) 10 mg, intravenous, Once, On 06/27/21 at 2152, For 1 dose labetalol injection 20 mg Given 06/27/2021 10:53 PM CDT 20 mg (NORMODYNE,TRANDATE) 20 mg, intravenous, Once, On 06/27/21 at 2234, For 1 dose labetalol injection 20 mg Given 06/28/2021 12:12 AM CDT 20 mg (NORMODYNE,TRANDATE) 20 mg, intravenous, Once, On 06/27/21 at 2341, For 1 dose LORazepam injection 0.5 mg (ATIVAN) Given 06/28/2021 12:04 AM CDT 0.5 mg 0.5 mg, intravenous, Once, On 06/27/21 at 2354, For 1 dose, For intravenous use, dilute with equal volume of 0.9% NS magnesium sulfate 40 mg/mL in NaCl 0.9% 500 mL infusion 2 g/hr (50 mL/hr), intravenous, Continuous, Starting o n 06/28/21 at 0028 NaCl 0.9 % bolus 80 mL New Bag 06/27/2021 10:33 PM CDT 80 mL 80 mL/hr 80 mL, intravenous, at 80 mL/hr, Administer over 1 Hours, Once, On 06/27/21 at 2213, For 1 dose sodium chloride 0.9 % injection 10 mL Given 06/27/2021 10:33 PM CDT 10 mL 10 mL, intravenous, Once, On 06/27/21 at 2213, For 1 dose documented in this encounter Active and Recently Administered Medications Due to Daylight Saving Time, this section may contain times in both ASSEMBLY ASSOCIATE and CDT. Scheduled Medication Order 06/26/2021 06/27/2021 06/28/2021 labetalol injection 10 mg (NORMODYNE,TRANDATE) (COMPLETED) 2210 (Given - Provider: Jazmyne De La Fuente R.N.) 10 mg, intravenous, Once, On 06/27/21 at 2152, For 1 dose labetalol injection 20 mg (NORMODYNE,TRANDATE) (COMPLETED) 2252 (Given - Provider: Radha Mortensen R.N.) 20 mg, intravenous, Once, On 06/27/21 at 2234, For 1 dose labetalol injection 20 mg (NORMODYNE,TRANDATE) (COMPLETED) 11 (Given - Provider: Jazmyne De La Fuente R.N.) 20 mg, intravenous, Once, On 06/27/21 at 2341, For 1 dose LORazepam injection 0.5 mg (ATIVAN) (COMPLETED) 3 (Given - Provider: Jazmyne De La Fuente R.N.) 0.5 mg, intravenous, Once, On Mon 2 at 2354, For 1 dose, For intravenous use, dilute with equal volume of 0.9% NS magnesium sulfate bolus from bag 4 g 0025 (Due) 4 g, intravenous, Administer over 15 Min utes, Once, On 06/28/21 at 0025, For 1 dose NaCl 0.9 % bolus 80 mL (COMPLETED) 2232 (New Bag - Provider: Natalee Pruitt(R)(CT), R.T.(R))2234 (Stopped - Provider: Jazmyne De La Fuente R.N.) 80 mL, intravenous, at 80 mL/hr, Adminis ter over 1 Hours, Once, On 06/27/21 at 2213, For 1 dose sodium chloride 0.9 % injection 10 mL (COMPLETED) 2232 (Given - Provider: Natalee Pruitt(R)(CT), R.T.(R)) 10 mL, intravenous, Once, On 06/27/21 at 2213, For 1 dose Continuous Medication Order 06/26/2021 06/27/2021 06/28/2021 magnesium sulfate 40 mg/mL in NaCl 0.9% 500 mL infusion 0113 (Not Given - Provider: Riley Bryson R.N. - Reason: Medication not available) 2 g/hr (50 mL/hr), intravenous, Continuous, Starting on Mon 06/28 at 0028 PRN Medication Order 06/26/2021 06/27/2021 06/28/2021 iohexoL 350 mg iodine/mL solution 125 mL (OMNIPAQUE) ([facility]) 2233 (Given - Provider: Natalee Pruitt(Harvinder)(CT), R.TLashawn(R) - Comment: [phone]) 125 mL, intravenous, Once in imaging, co ntrast, Starting on Mon06/27/21 at 2211, For 1 dose documented in this encounter Additional Health Concerns Infection Onset Date Last Indicated Resolved Time COVID19 Pending 06/27/2021 06/28/2021 06/28/2021 1:13 AM CDT Assessment Noted Time PHQ-9 Depression Total Score: 17 07/13/2020 3:09 PM CD T documented as of this encounter
--- OUTSIDE RECORDS SUMMARY | 2022-03-16 15:00 | XMS_ITS | Encounter Summary ---
:1980 Author Organization [facility] Address [address] [place] [address] Care Team Providers Name Role Phone Unavailable Primary Care Provider Unavailable Reason for Visit Appointment Request (Routine) - Closed Specialty Diagnoses / Procedures Referred By Contact Refer red To Contact Family Medicine Referral ID Status Reason Start Date Expiration Date Visits Requ ested Visits Authorized [id number] Closed 04/14/2021 04/14/2022 1 1 Encounter Details Date Type Department Care Team Description 05/03/2021 Immunization Department of [facility] Jorge Cordoba M.D. [address] [place] [id number] Medicine, [place] Jose Gamble M.D. [address] [place] [address] Clinic, in [address] [phone] Social History Tobacco Use Types Packs/Day Years [...] or relatives? How often do you attend evangelical or More than 4 times per year 11/09/2020 christianity services? Do you belong to any clubs or No 11/09/2020 organizations such as evangelical groups, unions, fraternal or athletic groups, or [...]
--- OUTSIDE RECORDS SUMMARY | 2022-03-16 15:01 | XMS_ITS | Encounter Summary ---
:1980 Author Organization [facility] Address [address] [place] [address] Care Team Providers Name Role Phone Unavailable Primary Care Provider Unavailable Encounter Details Date Type Department Care Team Description 01/27/2021 Clinical Communication Department of [facility] Wendy Cordoba, Medicine, [place] [facility], in [address] [phone] Social History Tobacco Use Types Packs/Day Years [...] How often do you attend buddhist or More than 4 times per year 11/09/2020 yazdanism services? Do you belong to any clubs or No 11/09/2020 organizations such as buddhist groups, unions, fraternal [...] this encounter Miscellaneous Notes Telephone Encounter - KatysureshJanneth sandoval Dakotah - 01/27/2021 1:08 PM CDT Monika Aguilar Sebastian P, LO, C.N.P. has put in a request for you to schedule a POST ED VISIT with Obstetrics and Gynecology with an expected completion date of 01/28. To secure an appointment, please respond with your appointment time preferences (e.g. day of week, time of day, etc.) that would be close to the expected date that was requested. You can also reach us at your clinics appointment line if you would prefer to schedule this over the phone between 7 am-6 pm, Monday-Monday. [place]: [phone] [place]: [phone] [place]: [phone] [place]: [phone] [place]: [phone] [place]: [phone] [place] or [facility]: [phone] Abhi [place], [place], or [facility]: [phone] [place]:[phone] [place]: [phone] Thank you for trusting your health care to [facility]. documented in this encounter Plan of Treatment Not on filedocumented as of this encounter Visit Diagnoses Not on filedocumented in this encounter Additional Health Concerns Assessment Noted Time PHQ-9 Depression Total Score: 17 07/13/2020 3:09 PM CD T documented as of this encounter
--- OUTSIDE RECORDS SUMMARY | 2022-03-16 15:01 | XMS_ITS | Encounter Summary ---
:1980 Author Organization [facility] Address [address] [place] [address] Care Team Providers Name Role Phone Unavailable Primary Care Provider Unavailable Reason for Visit Reason Comments Migraine presents c/o migraine since yesterday that has not improved with rx meds. Patient states she is 21 wee ks Encounter Details Date Type Department Care Team Description 02/16/2021 Emergency [place] [facility] Jose Melissa, Headache Unspecified Department P.A.-C. (Primary Dx) [address] [address] [place], [place] [phone] Social History Tobacco Use Types Packs/Day [...] How often do you attend presybeterian or More than 4 times per year 11/09/2020 uatsdin services? Do you belong to any clubs or No 11/09/2020 organizations such as presybeterian groups, unions, fraternal [...] Sign Reading Time Taken Comments Blood Pressure 118/88 02/16/2021 8:35 PM CDT Pulse 102 02/16/2021 8:35 PM CDT Temperature 36.2 ??C (97.2 ??F) 02/16/2021 8:35 PM CDT Respiratory Rate 16 02/16/2021 8:35 PM CDT Oxygen Saturation 99% 02/16/2021 8:35 PM CDT Inhaled Oxygen Concentration - - Weight 96 kg (211 lb 10.3 oz) 02/16/2021 8:31 PM CDT Height - - Body Mass Index 38.71 12/06/2020 4:44 PM CDT documented in this encounter Discharge Instructions AttachmentsThe following attachments cannot be sent through Care Everywhere. Recurrent Migraine Headache Ktky-sv-Ppro (Croatian)documented in this encounter Medications at Time of Discharge Medication Sig Dispensed Refills Start Date End Date acetaminophen (TYLENOL) Take 650 mg by 0 325 mg tablet mouth every 4 (four) hours as needed for pain. ascorbic acid, vitamin TAKE 1 TABLET BY 100 tablet 3 021 C, (VITAMIN C) 500 mg MOUTH DAILY tablet doxylamine 25 mg tablet Take 0.5 tablets 30 tablet 0 202006/28/2021 (12.5 mg total) by mouth 2 (two) times a day as needed for nausea. metoclopramide (REGLAN) 0 01/06/2021 0 06/28/2021 10 mg tablet metroNIDAZOLE (FLAGYL) TAKE 1 TABLET BY [...] Take 1 capsule (300 14 capsule 0 09/202006/28/2021 mg capsule mg total) by mouth 2 (two) times a day before breakfast and dinner. cetirizine (ZyrTEC) 10 Take 10 mg by mouth 0 08/202003/06/2022 mg tablet daily. cetirizine (ZyrTEC) 10 TAKE 1 TABLET BY 90 tablet 3 021 01/05/2022 mg tablet MOUTH DAILY cholecalciferol, vitamin Take 1,000 Units by 0 07/20/2021 D3, (cholecalciferol) mouth daily. 1,000 Unit tablet DULoxetine (CYMBALTA) 20 TAKE 2 CAPSULES BY 180 capsule 0 01/05/[address] capsule MOUTH DAILY DULoxetine (CYMBALTA) 30 Take 1 capsule (30 30 capsule 3 11/202008/31/[address] capsule mg total) by mouth daily. Dose reduction 10/22/20. metoclopramide (REGLAN) TAKE 1 TABLET BY 30 tablet 3 202001/05/2022 10 mg tablet MOUTH THREE TIMES A DAY NEEDED oxyCODONE (ROXICODONE) 5 0 12/29/2020 06/28/2021 mg immediate release tablet PARoxetine (PAXIL) 10 mg TAKE ONE-HALF 15 tablet 0 10/07/19 21 01/05/2022 tablet TABLET BY MOUTH DAILY Take 1 tablet by 100 tablet 11 11/18/2020 06/29/19 [id number]-[id number]-FA mouth daily. (VINATE ONE) 60 mg iron-1 mg per tablet psyllium seed, with Take by mouth 0 dextrose, (FIBER ORAL) daily. pyridoxine, vitamin B6, Take 1 tablet (50 30 tablet 0 10/2106/28/2021 (vitamin B-6) 50 mg mg total) by mouth tablet daily. SUMAtriptan (IMITREX) 50 Take 1 tablet (50 9 tablet 0 10/1606/28/2021 mg tablet mg total) by mouth as needed for migraine. May repeat dose once in 2 hours if migraine unresolved. Do not exceed 200 mg in 24 hours. UNABLE TO FIND Med Name: Thrive, 0 vitamins, shakes, and patches documented as of this encounter ED Notes Jose Melissa P.A.-C. - 02/16/2021 9:42 PM CDT SUBJECTIVE CHIEF COMPLAINT/REASON FOR VISIT Migraine (presents c/o migraine since yesterday that has not improved with rx meds. Patient states she is 21 weeks ) HISTORY OF PRESENT ILLNESS 40-year-old at approximately 21 weeks gestation with history of migraine headaches presents the ER with complaints of migraine headache over the last several days. Acetaminophen has provided only mild relief. Patient denies new or change in symptoms compared to previous migraines. Patient denies any co mplications with the to this point. She describes good movement and no concerns for her this evening. REVIEW OF SYSTEMS Constitutional: Negative for activity change and fever. HENT: Negative for congestion. Respiratory: Negative for cough. Cardiovascular: Negative for chest pain. Gastrointestinal: Negative for abdominal pain. Endocrine: Negative for polyuria. Genitourinary: Negative for flank pain. Musculoskeletal: Negative for extremity pain. Skin: Negative for rash. Neurological: Positive for headaches. Negative for dizziness, tremors, seizures, syncope, facial asymmetry, speech difficulty, weakness, light-headedness, numbness and loss of balance. Psychiatric/Behavioral: Negative for confusion. OBJECTIVE Initial Vitals Temperature Pulse Rate Heart Rate Resp Rate Blood Pressure SpO2 02/16/21203402/16/212034 -- 02/16/21203402/16/21203402/16/212034 36.2 ??C 102 16 118/88 99 % Pain Score 02/16/212033 7 PHYSICAL EXAMINATION Constitutional: Nursing note and [...] person, place, and time. She has normal sensation, normal strength and intact cranial nerves. GCS eye subscore is 4. GCS verbal subscore is 5. GCS motor subscore is 6. Normal speech. Gait normal. Skin: Skin is warm. ASSESSMENT/PLAN IMPRESSION AND PLAN Patient states feeling improved after treatment in the emergency department. Mom states good movement. FHT WNL. Based on history and physical exam I do suspect this is the patient's typical migraine headache and I do not suspect hemorrhage, or thrombosis. Patient is well established with OB and will follow- up with the same. She will return to the ER if new symptoms develop, current symptoms worsen, symptoms fail to improve or patient becomes concerned. Patient discharged in good condition. I reviewed previous medical records including documentation from previous visits. Final Diagnoses: as of 02/16/212256 Headache Unspecified Jose Melissa P.A.-C. 02/16/212256 documented in this encounter Plan of Treatment Not on filedocumented as of this encounter Visit Diagnoses Diagnosis Headache Unspecified - Primary documented in this encounter Administered Medications Inactive Administered Medications - up to 3 most recent administrations Medication Order MAR Action Action Date Dose Rate Site acetaminophen tablet 1,000 mg Given 02/16/2021 8:51 PM CDT 1,000 mg (TYLENOL) 1,000 mg, oral, Once, On Mon02/16/21 at 2045, For 1 dose diphenhydrAMINE injection 50 mg (BENADRY L) Given 02/16/2021 8:51 PM CDT 50 mg 50 mg, intravenous, Once, On Mon02/16/21 at 2045, For 1 dose NaCl 0.9 % bolus 1,000 mL New Bag 02/16/2021 8:50 PM CDT 1,000 mL 1000 mL/hr 1,000 mL, intravenous, at 1,000 mL/hr, Administer over 1 Hours, Once, On Mon02/16/21 at 2045, For 1 dose promethazine injection 12.5 Given 02/16/2021 8:51 PM 12.5 mg Left Vastus mg (PHENERGAN) CDT Lateralis 12.5 mg, intramuscular, Once, On Mon02/16/21 at 2045, For 1 dose documented in this encounter Active and Recently Administered Medications Times are shown in CDT. Scheduled Medication Order 02/14/2021 02/15/2021 02/16/2021 acetaminophen tablet 1,000 mg (TYLENOL) (COMPLETED) 2050 (Given - Provider: Lois Rice R.N.) 1,000 mg, oral, Once, On Mon02/16/21 at 2045, For 1 dose diphenhydrAMINE injection 50 mg (BENADRYL) (COMPLETED) 2050 (Given - Provider: Lois Rice R.N.) 50 mg, intravenous, Once, On Mon02/16/21 at 2045, For 1 dose NaCl 0.9 % bolus 1,000 mL (COMPLETED) 2049 (New Bag - Provider: Lois Rice R.N.)2132 (Stopped - Provider: Lois Rice R.N.) 1,000 mL, intravenous, at 1,000 mL/hr, A dminister over 1 Hours, Once, On Mon02/16/21 at 2045, For 1 dose promethazine injection 12.5 mg (PHENERGAN) (COMPLETED) 2050 (Given - Provider: Lois Rice R.N.) 12.5 mg, intramuscular, Once, On Mon02/16/21 at 2045, For 1 dose documented in this encounter Additional Health Concerns Assessment Noted Time PHQ-9 Depression Total Score: 17 07/13/2020 3:09 PM CD T documented as of this encounter
--- OUTSIDE RECORDS SUMMARY | 2022-03-16 15:01 | XMS_ITS | Encounter Summary ---
:1980 Author Organization [facility] Address [address] [place] [address] Care Team Providers Name Role Phone Unavailable Primary Care Provider Unavailable Reason for Visit Reason Comments Nasal Congestion coughing, mucus, sore throat , ears hurt, chest pressure not getting any better, ribs hurts from cough Appointment Request (Routine) - Closed Specialty Diagnoses / Procedures Referred By Contact Refer red To Contact Family Medicine Referral ID Status Reason Start Date Expiration Date Visits Requ ested Visits Authorized [id number] Closed 01/19/2021 01/19/2022 1 1 Encounter Details Date Type Department Care Team Description 01/20/2021 Office Visit Department of [facility] Diana Cade, Sin usitis (Primary Dx); Medicine, [place] P.A.-C., P.A. Infe ction Upper Respiratory; Clinic, in [facility] Abdominal With Intrauterine (HCC) [address] [phone] Social History Tobacco Use Types Packs/Day Years [...] More than 4 times per year 11/09/2020 orthodoxy services? Do you belong to any clubs or No 11/09/2020 organizations such as synagogue groups, unions, fra[employer]edge [employer] or athletic groups, or school groups? How [...] Sign Reading Time Taken Comments Blood Pressure 110/76 01/20/2021 2:27 PM CDT Pulse 101 01/20/2021 2:27 PM CDT Temperature 36.4 ??C (97.5 ??F) 01/20/2021 2:27 PM CDT Respiratory Rate - - Oxygen Saturation - - Inhaled Oxygen Concentration - - Weight 96 kg (211 lb 10.3 oz) 01/20/2021 2:27 PM CDT Height - - Body Mass Index 38.71 12/06/2020 4:44 PM CDT documented in this encounter Patient Instructions Patient InstructionsDiana Cade P.A.-C., P.A. - 01/20/2021 2:30 PM CDT Cefdinir twice daily for 7 days documented in this encounter Progress Notes Diana Cade P.A.-[place], [place] - 01/20/2021 2:30 PM CDT SUBJECTIVE CHIEF COMPLAINT/REASON FOR VISIT Dulce Lei is a 40 y.o. female who presents for evaluation of Nasal Congestion (coughing, mucus, sore throat, ears hurt, chest pressure not getting any better, ribs hurts from cough). HISTORY OF PRESENT ILLNESS Dulce is a very pleasant 40-year-old female who presents today for evaluation of upper respiratory infection. She has had 2- COVID tests within the last week. Her symptoms have been persistentfor almost 2 weeks. She is having a productive cough, sore throat, ear pressure and sinus congestion. She does have some maxillary facial tenderness. She was placed on an antibiotic with a Z-Dragan after seen in the ER but unfortunately states that she has not noted any improvement since taking this antibiotic. She has been using [id number]-hoe-[id number] treatments per her it senior software engineer java with Mucinex and Tylenol. PHYSICAL EXAMINATION Vital Signs: BP 110/76 (BP Location: Left arm, Patient Position: Sitting, Cuff Size: Large) Pulse 101 Temp 36.4 ??C (Temporal) Wt 96 kg LMP 10/14/2020 BMI 38.71 kg/m?? Body mass index is 38.71 kg/m??. General: This patient is alert and in no acute distress. HEENT: Pupils are PERRLA, conjunctivae clear without hemorrhages or exudates. Auditory canals are normal without erythema or edema, TMs are pearly johnson and intact without erythema. Oral cavity is adequately hydrated, posterior pharynx is normal without erythema or drainage present. Neck: Supple without lymphadenopathy. Respiratory: Effort is easy, lung sounds are clear to auscultation. Cardiovascular: S1 and S2 are present, normal rate and rhythm. Abdomen: Soft, nontender, bowel sounds present. Musculoskeletal: Grossly intact, no deformities are noted. Skin: Normal color, temperature and moisture, no rashes or lesions are noted. Neuro: CN II-XII grossly intact. Psych: Behavior, mood, affect, cognition and insight are all appropriate. ASSESSMENT / PLAN 1. Sinusitis 2. Infection Upper Respiratory 3. Abdominal With Intrauterine (HCC) Recommended Cefdnir 300mg bid x 7 days. Continue with conservative measures at home as well with tylenol and mucinex. Plan was discussed with patient and is in agreement with plan. All questions were answered, side effects of any/all new medications were discussed. Patient left in no acute distress. Ready to learn. No apparent learning barriers were identified. Learning preferences include listening. Explained diagnosis and treatment plan. Patient/Child/Caregiver expressed understanding of the content. Total time: 25 minutes Diana Cade P.A.-C., P.A. documented in this encounter Plan of Treatment Not on filedocumented as of this encounter Visit Diagnoses Diagnosis Sinusitis - Primary Infection Upper Respiratory Abdominal With Intrauterine Pr egnancy ([facility]) documented in this encounter Additional Health Concerns Assessment Noted Time PHQ-9 Depression Total Score: 17 07/13/2020 3:09 PM CD T documented as of this encounter
--- OUTSIDE RECORDS SUMMARY | 2022-03-16 15:01 | XMS_ITS | Encounter Summary ---
:1980 Author Organization [facility] Address [address] [place] [address] Care Team Providers Name Role Phone Unavailable Primary Care Provider Unavailable Reason for Visit Reason Comments Migraine Pt presents to ED with migra ine that started this am around 0600. Encounter Details Date Type Department Care Team Description 12/13/2020 Emergency [facility] C.N.P. (Primary Dx) [address] [place] [address] [place], [place] Zabrina Banegas [address] [place], [place] [phone] (Wo rk) Social History Tobacco Use [...] or relatives? How often do you attend christian or More than 4 times per year 11/09/2020 hinduism services? Do you belong to any clubs or No 11/09/2020 organizations such as christian groups, unions, fraternal or athletic groups, or [...] place to sleep or slept in a [place] [facility] (including now)? Education Answer Date Recorded What is the highest level of school you have Some college, n o degree 11/17/2019 completed or the highest degree you have received? Sex Assigned at Date Recorded Not on file documented as of this encounter Last Filed Vital Signs Vital Sign Reading Time Taken Comments Blood Pressure 120/84 12/13/2020 7:00 PM CDT Pulse 84 12/13/2020 7:15 PM CDT Temperature 36.2 ??C (97.2 ??F) 12/13/2020 7:00 PM CDT Respiratory Rate 18 12/13/2020 7:15 PM CDT Oxygen Saturation 96% 12/13/2020 7:15 PM CDT Inhaled Oxygen Concentration - - Weight 98.7 kg (217 lb 9.5 oz) 12/13/2020 6:58 PM CDT Height - - Body Mass Index 39.8 12/06/2020 4:44 PM CDT documented in this encounter Discharge Instructions Discharge InstructionsStVaughn chapin, C.N.P. - 12/13/2020 7:08 PM CDT Home to rest, if you wake up with the continued headache continue your current medications. Follow-up tomorrow. Thank you for utilizing [facility] for your care! AttachmentsThe following attachments cannot be sent through Care Everywhere. Migraine Headache [id number] (Faroese)documented in this encounter Medications at Time of Discharge Medication Sig Dispensed Refills Start Date End Date acetaminophen (TYLENOL) Take 650 mg by mouth 0 325 mg tablet every 4 (four) hours as needed for pain. ascorbic acid, vitamin TAKE 1 TABLET BY 100 tablet 3 021 C, (VITAMIN C) 500 mg MOUTH DAILY tablet ondansetron (ZOFRAN) 4 TAKE 1 TABLET BY 30 tablet 2 021 11/19/2021 mg tablet MOUTH EVERY SIX HOURS NEEDED ascorbic acid with rachel 0 11/19/2020 0 06/28/2021 hips 500 mg tablet cetirizine (ZyrTEC) 10 Take 10 mg by mouth 0 08/202003/06/2022 mg tablet daily. cetirizine (ZyrTEC) 10 TAKE 1 TABLET BY 90 tablet 3 021 01/05/2022 mg tablet MOUTH DAILY cholecalciferol, vitamin Take 1,000 Units by 0 07/20/2021 D3, (cholecalciferol) mouth daily. 1,000 Unit tablet doxylamine 25 mg tablet Take 0.5 tablets 30 tablet 0 202006/28/2021 (12.5 mg total) by mouth 2 (two) times a day as needed for nausea. DULoxetine (CYMBALTA) 30 Take 1 capsule (30 30 capsule 3 11/202008/31/[address] capsule mg total) by mouth daily. Dose reduction 10/22/20. PARoxetine (PAXIL) 10 mg TAKE ONE-HALF TABLET 15 tablet 0 0 10/06/2020 01/05/2022 tablet BY MOUTH DAILY Take 1 tablet by 100 tablet 11 11/18/2020 06/29/19 22 [id number] mouth daily. (VINATE ONE) 60 mg iron-1 mg per tablet psyllium seed, with Take by mouth daily. 0 06/28/2021 dextrose, (FIBER ORAL) pyridoxine, vitamin B6, Take 1 tablet (50 mg 30 tablet 0 06/28/2021 (vitamin B-6) 50 mg total) by mouth tablet daily. SUMAtriptan (IMITREX) 50 Take 1 tablet (50 mg 9 tablet 0 0 11/09/2020 06/28/2021 mg tablet total) by mouth as needed for migraine. May repeat dose once in 2 hours if migraine unresolved. Do not exceed 200 mg in 24 hours. UNABLE TO FIND Med Name: Katja, 0 vitamins, shakes, and patches documented as of this encounter ED Notes Vaughn Lynch C.N.P. - 12/13/2020 6:58 PM CDT SUBJECTIVE CHIEF COMPLAINT / REASON FOR VISIT Migraine (Pt presents to ED with migraine that started this am around 0600.) HISTORY OF PRESENT ILLNESS Patient presents to the emergency department with complaints of a migraine headache. Patient states she is also approximately 12 weeks . She developed a headache around 6 in the morning. She states identical to her other headaches. She describes it as a global headache but mostly centered in the frontal region.She describes photophobia, phonophobia, and nausea with no vomiting. She denies anyneck pain. Denies any other symptoms. She states she is unable to take any of her daily medications secondary to the . Patient has taken Tylenol earlier with no relief. Her last admission to the emergency department she was given Tylenol, Phenergan, and Benadryl with resolution of her headache. Patient states she has a follow-up appointment with primary care tomorrow. History provided by: Patient REVIEW OF SYSTEMS Constitutional: Positive for activity change. Negative for chills, fatigue and fever. HENT: Negative for congestion, sinus pressure and sore throat. Eyes: Positive for photophobia. Negative for visual disturbance. Respiratory: Negative for cough, chest tightness and shortness of breath. Cardiovascular: Negative for chest pain. Gastrointestinal: Positive for nausea. Negative for vomiting. Genitourinary: Twelve and half weeks Musculoskeletal: Negative for neck pain and neck stiffness. Neurological: Positive for headaches. Negative for dizziness, seizures, speech difficulty, weakness,light-headedness, numbness and loss of balance. CURRENT MEDICATIONS Reviewed in medical record. ALLERGIES / CONTRAINDICATIONS Reviewed in medical record. MEDICAL HISTORY Past Medical History: Diagnosis Date ??? Asthma (HCC) Patient Active Problem List Diagnosis ??? Asthma (HCC) ??? Obesity Body Mass Index 30-39.9 Adult ??? Migraine With Aura Not Intractable Without Status Migrainosus ??? Pap Smear Examination ??? Intrauterine Device Status SURGICAL HISTORY Past Surgical History: Procedure Laterality Date ??? DILATION AND CURETTAGE N/A 03/26/2013 Dilation and curettage ??? INJECTION N/A 03/28/2005 >Compound F Injection ??? INJECTION N/A 04/21/2005 >Compound F Injection ??? MYRINGOTOMY W/ TUBES N/A 06/27/1988 Bilateral myringotomy with placement of Paparella tubes. ??? REPAIR FOOT PERONEUS BREVIS TENDON Right 12/11/2019 Procedure: PERONEUS BREVIS TENDON REPAIR FOOT-Right ankle peroneus brevis tendon repair, brostrom repair; Surgeon: Alexsander Marshall M.D.; Location: [facility] OR ??? TONSILLECTOMY AND ADENOIDECTOMY N/A 04/17/1994 Tonsillectomy with adenoidectomy FAMILY HISTORY Reviewed in chart SOCIAL HISTORY Social History Tobacco Use ??? Smoking status: Current Every Day Smoker Packs/day: 0.50 Types: Cigarettes Start date: 2007 ??? Smokeless tobacco: Never Used ??? Tobacco comment: 1/2 or less pack/d, trying to quit Substance Use Topics ??? Alcohol use: Not Currently Comment: occasional Social History Substance and Sexual Activity Drug Use Not Currently OBJECTIVE INITIAL VITAL SIGNS: Initial Vitals [12/13/20 1900] Temperature Pulse Rate Heart Rate Resp Rate Blood Pressure SpO2 36.2 ??C 84 -- 18 120/84 97 % Pain Score 8 Wt Readings from Last 3 Encounters: 12/13/20 98.7 kg 12/03/20 97.2 kg 11/09/20 97 kg PHYSICAL EXAMINATION Constitutional: Nursing note and vitals reviewed. No distress. HENT: Nose: No nasal discharge. Mouth/Throat: Oropharynx is clear and moist. Mucous membranes are moist. No tonsillar exudate. Eyes: Conjunctivae are normal. Pupils are equal, round, and reactive to light. Neck: Neck supple. Cardiovascular: Normal rate, regular rhythm and normal heart sounds. Pulses are strong and palpable.Capillary refill: takes less than 3 seconds, Pulmonary/Chest: Effort normal and breath sounds normal. There is normal air entry. No respiratory distress. Musculoskeletal: General: Normal range of motion. Cervical back: Normal range of motion and neck supple. Lymphadenopathy: She has no cervical adenopathy. Neurological: Alert and oriented to person, place, and time. She has normal reflexes. No cranial nerve deficit. Skin: Skin is warm, dry and intact. Psychiatric: She has a normal mood and affect. ED COURSE: Final Diagnoses: as of Dec 14 1915 Migraine Headache INTERVENTIONS: Medications promethazine injection 12.5 mg (PHENERGAN) (12.5 mg intramuscular Given 12/13/201906) diphenhydrAMINE injection 50 mg (BENADRYL) (50 mg intramuscular Given 12/13/201907) ASSESSMENT / PLAN IMPRESSION AND PLAN Presents to the emergency department with complaints of a migraine headache, this is identical to her previous headaches. ?? The patient presents to the ED for evaluation of headache. The patient arrives still in active pain.At present, given the patient's history and my examination, my suspicion is that the headache is either due to a migraine or tension headache. I do not think the patient has a a subarachnoid hemorrhage- it was not sudden and NOT maximal at onset, is not described as the worst headache of the patient's life, and there has been no associated syncope or trauma. I do not think the patient has bacterial meningitis - they are afebrile, without meningismus, and are non-toxic appearing. I have not found any concerning findings to suspect patient's headache is due to acute angle glaucoma, CO poisoning, idiopathic intracranial hypertension, or hypertensive emergency. Lastly, I do not think the symptoms areconcerning for a tumor or mass given the normal neurologic exam and absence of an insidious course. ?? 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 ?? 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 Patient states she prefers to be discharged so she can go home to sleep. Patient was given red flag red flag symptoms to return her to the emergency department. She called for a ride home and was discharged Has follow up appt tomorrow with PMD I reviewed previous medical records including documentation from previous visits. DIAGNOSIS: Final diagnoses: [G43.909] Migraine Headache ED DISCHARGE MEDS: ED Prescriptions None DISPOSITION: Home or Self Care DISCHARGE VITAL SIGNS: Vitals: 12/13/201914 BP: Pulse: 84 Resp: 18 Temp: SpO2: 96% FOLLOW UP: Contact Information for Follow-ups Selena Cordoba M.D. Specialty: Family Medicine Relationship: PCP - General [address] [place] [phone] Next Steps: Follow up Instructions: Tomorrow as scheduled. Vaughn Lynch, DNP, ENVIRONMENTAL TECHNICAL OFFICER, CAKE MAKER-C, AGACNP-BC, ENP-C Emergency Medicine Vaughn Lynch, C.N.P. 12/13/201915 documented in this encounter Plan of Treatment Not on filedocumented as of this encounter Visit Diagnoses Diagnosis Migraine Headache - Primary documented in this encounter Administered Medications Inactive Administered Medications - up to 3 most recent administrations Medication Order MAR Action Action Date Dose Rate Site diphenhydrAMINE injection Given 12/13/2020 7:08 50 mg Right Ventrogluteal 50 mg (BENADRYL) PM CDT 50 mg, intramuscular, Once, On 12/13/20 at 1902, For 1 dose promethazine injection 12.5 Given 12/13/2020 7:07 PM 12.5 mg Left Ventrogluteal mg (PHENERGAN) CDT 12.5 mg, intramuscular, Once, On 12/13/20 at 1902, For 1 dose documented in this encounter Active and Recently Administered Medications Times are shown in CDT. Scheduled Medication Order 12/11/2020 12/12/2020 12/13/2020 diphenhydrAMINE injection 50 mg (BENADRYL) (COMPLETED) 1907 (Given - Provider: Garrett Drake R.N.) 50 mg, intramuscular, Once, On 12/13/20 at 1902, For 1 dose promethazine injection 12.5 mg (PHENERGAN) (COMPLETED) 1906 (Given - Provider: Garrett Darke R.N.) 12.5 mg, intramuscular, Once, On 12/13/20 at 1902, For 1 dose documented in this encounter Additional Health Concerns Assessment Noted Time PHQ-9 Depression Total Score: 17 07/13/2020 3:09 PM CD T documented as of this encounter
--- OUTSIDE RECORDS SUMMARY | 2022-03-16 15:01 | XMS_ITS | Encounter Summary ---
:1980 Author Organization [facility] Address [address] [place] [address] Care Team Providers Name Role Phone Unavailable Primary Care Provider Unavailable Reason for Visit Reason Comments TB Test Quantiferon Gold Appointment Request (Routine) - Closed Specialty Diagnoses / Procedures Referred By Contact Refer red To Contact Family Medicine Referral ID Status Reason Start Date Expiration Date Visits Requ ested Visits Authorized [id number] Closed 02/22/2021 02/22/2022 1 1 Encounter Details Date Type Department Care Team Description 02/22/2021 Nurse Only Department of Family Jorge Cordoba M.D. [address] [place] [address] [phone] TB Test (Quantiferon Medicine, [place] Olga Lidia Melendez, R.N. [address] [place] [phone] Gold ) Clinic, in [address] [phone] Social History Tobacco Use Types Packs/Day Years [...] How often do you attend congregation or More than 4 times per year 11/09/2020 denominational services? Do you belong to any clubs or No 11/09/2020 organizations such as congregation groups, unions, fraternal [...] Name Priority Date/Time Associated Diagnosis Comme nts QUANTIFERON-TB GOLD Routine 02/22/2021 8:41 AM Encounter For R esults for this PLUS, B SCARFER OPERATOR Screening For procedure are in Respiratory the results Tuberculosis section. documented in this encounter Results QuantiFERON-Tb Gold Plus, Blood (02/22/2021 8:41 AM SCARFER OPERATOR) P athologist Signature QuantiFERON-TB Negative Negative 02/23/2021 ECLR Gold Plus 11:33 AM SCARFER OPERATOR Result Comment: No interferon-gamma response to M. tuber culosis antigens was detected. Latent infection with M. tuberculosis is unlikely. A single ne gative result does not exclude infection with M. tuber culosis. In patients at high risk for M.tuberculo sis infection, a second test should be considered in ac cordance with the 2017 ATS/IDSA/CDC Clinical Prac pedro Guidelines for Diagnosis of Tuberculosis in Adults and Children [Gariman DM et. al. Clin. Infect. Dis. 2017;64(2):111-115]. The reference range for the 'TB1 Ag benja s Nil Result' and 'TB2 Ag minus Nil Result' is an Inte rferon-gamma level <0.35 IU/mL. TB1 Ag minus Nil Result 0.00 IU/mL 02/23/2021 11:33 AM SCARFER OPERATOR ECLR TB2 Ag minus Nil Result 0.00 IU/mL 02/23/2021 11:33 AM SCARFER OPERATOR ECLR Mitogen minus Nil Result 9.61 IU/mL 02/23/2021 11:3 3 AM SCARFER OPERATOR ECLR Nil Result 0.03 IU/mL 02/23/2021 11:33 AM SCARFER OPERATOR ECLR Specimen Anatomical Collection Method Collection Time Receive d Time (Source) Location / / Volume Laterality Blood (Blood, 02/22/2021 8:41 AM 02/23/20 3:17 Venous) SCARFER OPERATOR PM SCARFER OPERATOR Narrative [facility] 02/23/2021 11:33 AM SCARFER OPERATOR Specimen Information: Specimen ID: [id number] Specimen Type: Blood Specimen Collection Start Date: 02/23/20 ??8:41 AM Specimen Received Date: 02/22/2021 ??3:1 7 PM Specimen ID: [id number] Specimen Type: Blood Specimen Collection Start Date: 02/23/20 ??8:41 AM Specimen Received Date: 02/22/2021 ??3:1 7 PM Specimen ID: [id number] Specimen Type: Blood Specimen Collection Start Date: 02/23/20 ??8:41 AM Specimen Received Date: 02/22/2021 ??3:1 7 PM Specimen ID: [id number] Specimen Type: Blood Specimen Collection Start Date: 02/23/20 ??8:41 AM Specimen Received Date: 02/22/2021 ??3:1 7 PM Selena Cordoba M.D. LAB MICROBIOLOGY - BLOOD ORD ERABLES Performing Organization Address City/State/ZIP Code Phon e Number [facility] [address] [place], [place] [address] [facility] [place] [address] [address] documented in this encounter Visit Diagnoses Diagnosis Encounter For Screening For Respiratory Tuberculosis - Primary documented in this encounter Additional Health Concerns Assessment Noted Time PHQ-9 Depression Total Score: 17 07/13/2020 3:09 PM CD T documented as of this encounter
--- OUTSIDE RECORDS SUMMARY | 2022-03-16 15:01 | XMS_ITS | Encounter Summary ---
:1980 Author Organization [facility] Address [address] [place] [address] Care Team Providers Name Role Phone Unavailable Primary Care Provider Unavailable Reason for Visit Reason Comments Migraine 40 year old female admits wi th concerns of typical migraine Encounter Details Date Type Department Care Team Description 04/01/2021 Emergency [place] [facility] Mitchel Frank , Migraine Headache Department ART INSTALLER, C.N.P. (Primary Dx) [id number] [place] [address] [place], [place] [phone] (Wo rk) Social History Tobacco Use Types [...] or relatives? How often do you attend tenriism or More than 4 times per year 11/09/2020 synagogue services? Do you belong to any clubs or No 11/09/2020 organizations such as tenriism groups, unions, fraternal or athletic groups, or [...] Sign Reading Time Taken Comments Blood Pressure 110/72 04/01/2021 7:54 PM SPANISH LINGUIST Pulse 82 04/01/2021 7:54 PM SPANISH LINGUIST Temperature 37.5 ??C (99.5 ??F) 04/01/2021 7:54 PM SPANISH LINGUIST Respiratory Rate 16 04/01/2021 7:54 PM SPANISH LINGUIST Oxygen Saturation - - Inhaled Oxygen Concentration - - Weight 98.7 kg (217 lb 9.5 oz) 04/01/2021 7:55 PM SPANISH LINGUIST Height - - Body Mass Index 39.8 12/06/2020 4:44 PM CDT documented in this encounter Discharge Instructions AttachmentsThe following attachments cannot be sent through Care Everywhere. Migraine Headache [id number] (Surinamese)documented in this encounter Medications at Time of Discharge Medication Sig Dispensed Refills Start Date End Date acetaminophen (TYLENOL) Take 650 mg by 0 325 mg tablet mouth every 4 (four) hours as needed for pain. ascorbic acid, vitamin TAKE 1 TABLET BY 100 tablet 3 C, (VITAMIN C) 500 mg MOUTH DAILY tablet metroNIDAZOLE (FLAGYL) TAKE 1 TABLET BY 14 tablet 3 02/05/2022 500 mg tablet MOUTH TWO TIMES A DAY ondansetron (ZOFRAN) 4 TAKE 1 TABLET BY 30 tablet 2 11/19/2021 mg tablet MOUTH EVERY SIX HOURS NEEDED acyclovir (ZOVIRAX) 800 Take 1 tablet (800 35 tablet 0 /12/202006/28/2021 mg tablet mg total) by mouth 5 [...] mouth daily. Dose reduction 10/22/20. metoclopramide (REGLAN) 0 01/06/2021 0 06/28/2021 10 [...] by 100 tablet 11 11/18/2020 06/29/19 22 [id number] mouth daily. (VINATE ONE) 60 mg iron-1 [...] documented as of this encounter ED Notes Mitchel Frank, ART INSTALLER, C.N.P. - 04/01/2021 8:14 PM CST SUBJECTIVE CHIEF COMPLAINT/REASON FOR VISIT Migraine (40 year old female admits with concerns of typical migraine) HISTORY OF PRESENT ILLNESS Patient is a 40-year-old female presenting to the ER for headache. She states that she has had a migraine all day. She is G 2 P 0 currently is roughly 30 weeks . She states her headache is following similar patterns of her normal migraines. With painting like pattern around her head. She also notes that she has had some nausea and some photophobia. She took some Benadryl and Tylenol around 2:00 p.m. with minimal relief of her symptoms. Allergies been reviewed. REVIEW OF SYSTEMS Constitutional: Negative for fatigue and fever. HENT: Negative for facial swelling. Eyes: Positive for photophobia. Respiratory: Negative for shortness of breath. Cardiovascular: Negative for chest pain. Gastrointestinal: Positive for nausea. Negative for abdominal pain and vomiting. Genitourinary: Negative for flank pain and frequency. Musculoskeletal: Negative for neck pain and neck stiffness. Skin: Negative for rash and wound. Allergic/Immunologic: Negative for immunocompromised state. Neurological: Positive for headaches. Negative for weakness and numbness. Hematological: Does not bruise/bleed easily. OBJECTIVE Initial Vitals [04/01/211953] Temperature Pulse Rate Heart Rate Resp Rate Blood Pressure SpO2 37.5 ??C 82 -- 16 110/72 -- Pain Score -- PHYSICAL EXAMINATION Constitutional: Nursing note and vitals reviewed. Vital signs are normal. She appears not listless and not lethargic. She is active and cooperative. She is easily aroused. She does not appear ill. No distress. HENT: Head: Normocephalic and atraumatic. No signs of injury. There is normal jaw occlusion. Mouth/Throat: Oropharynx is clear and moist. Mucous membranes are moist. Eyes: Conjunctivae and EOM are normal. Pupils are equal, round, and reactive to light. Periorbital area normal appearing. Neck: Neck supple. Cardiovascular: Normal rate and normal peripheral perfusion. PMI is not displaced. Pulses are palpable. Pulses are no weak pulses. Capillary refill: takes less than 3 seconds, Pulmonary/Chest: Effort normal. There is normal air entry. No apnea and no tachypnea. No respiratorydistress. Abdominal: Non-distended. Musculoskeletal: General: No tenderness, deformity or edema. Normal range of motion. Cervical back: Full passive range of motion without pain, normal range of motion and neck supple. Neurological: Alert, oriented to person, place, and time and easily aroused. She has normal sensation, normal strength and intact cranial nerves. She is not disoriented. No cranial nerve deficit. GCS eye subscore is 4. GCS verbal subscore is 5. GCS motor subscore is 6. Normal speech. Coordination and gait normal. Skin: Skin is warm, dry, intact and normal color. She is not diaphoretic. Psychiatric: She has a normal mood and affect. Speech pattern is normal. Judgment and thought content normal. Relaxed.Cognition and memory are normal. ASSESSMENT/PLAN IMPRESSION AND PLAN Patient is a 40-year-old female coming for evaluation migraine. Overall I have low suspicion for acute life-threatening headache at this time. She has no red flag symptoms associated with this headache. She states that the falls are normal migrainous pattern. She has migrainous features such as photophobia nausea. Patient will be given her normal cocktail of Phenergan, Benadryl and Tylenol. Upon reassessment the patient is feeling a bit better. She does have some underlying anxiety feel this is most likely mild dystonic reaction. At this point do not feel comfortable giving her any benzosor any further Benadryl. I did advise her that is time limiting and will subside over time. Final Diagnoses: as of 04/01/212057 Migraine Headache Mitchel Frank APRN, C.N.P. 04/01/212113 ISH LINGUIST documented in this encounter Plan of Treatment Not on filedocumented as of this encounter Visit Diagnoses Diagnosis Migraine Headache - Primary documented in this encounter Administered Medications Inactive Administered Medications - up to 3 most recent administrations Medication Order MAR Action Action Date Dose Rate Site acetaminophen tablet 1,000 mg Given 04/01/2021 8:32 PM SPANISH LINGUIST 1,000 mg (TYLENOL) 1,000 mg, oral, Once, On Roxie 04/01/21 at 1945, For 1 dose diphenhydrAMINE injection 50 mg (BENADRY L) Given 04/01/2021 8:02 PM SPANISH LINGUIST 50 mg 50 mg, intravenous, Once, On Roxie 04/01/21 at 1945, For 1 dose NaCl 0.9 % bolus 1,000 mL New Bag 04/01/2021 8:01 PM SPANISH LINGUIST 1,000 mL 2000 mL/hr 1,000 mL, intravenous, at 2,000 mL/hr, Administer over 30 Minutes, Once, On Roxie 04/01/21 at 1945, For 1 dose, FOR HYDRATION promethazine injection 12.5 mg (PHENERGA N) Given 04/01/2021 8:02 PM SPANISH LINGUIST 12.5 mg 12.5 mg, intravenous, Once, On Roxie 04/01/21 at 1945, For 1 dose, Avoid using hand and wrist veins due to extravasation risk. Administer through large-bore veins, preferably central access, if available. Dilute to 10-20 ml with NS, administer through running IV line at port furthest from the patient's vein. May cause site irritation. documented in this encounter Active and Recently Administered Medications Times are shown in SPANISH LINGUIST. Scheduled Medication Order 03/30/2021 03/31/2021 04/01/2021 acetaminophen tablet 1,000 mg (TYLENOL) (COMPLETED) 2031 (Given - Provider: Sandhya Ross R.N.) 1,000 mg, oral, Once, On Roxie 04/01/21 at 1945, For 1 dose diphenhydrAMINE injection 50 mg (BENADRYL) (COMPLETED) 2001 (Given - Provider: Sandhya Ross R.N.) 50 mg, intravenous, Once, On Roxie 04/01/21 at 1945, For 1 dose NaCl 0.9 % bolus 1,000 mL (COMPLETED) 2000 (New Bag - Provider: Sandhya Ross R.N.)2111 (Stopped - Provider: Sandhya Ross R.N.) 1,000 mL, intravenous, at 2,000 mL/hr, A dminister over 30 Minutes, Once, On Roxie 04/01/21 at 1945, For 1 dose, FOR HYDRATION promethazine injection 12.5 mg (PHENERGAN) (COMPLETED) 2001 (Given - Provider: Sandhya Ross R.N.) 12.5 mg, intravenous, Once, On Roxie 04/01 at 1945, For 1 dose, Avoid using hand and wrist veins due to extravasation risk. Administer through large-bore veins, preferably central access, if available. Dilute to 10-20 ml with NS, administer through running IV line at port furthest from the patient's vein. May cause site irritation. documented in this encounter Additional Health Concerns Assessment Noted Time PHQ-9 Depression Total Score: 17 07/13/2020 3:09 PM CD T documented as of this encounter
--- OUTSIDE RECORDS SUMMARY | 2022-03-16 15:01 | XMS_ITS | Encounter Summary ---
:1980 Author Organization [facility] Address [address] [place] [address] Care Team Providers Name Role Phone Unavailable Primary Care Provider Unavailable Reason for Referral Outpatient (Routine) - Authorized Specialty Diagnoses / Procedures Referred By Contact Refer red To Contact Obstetrics and Diagnoses Abdominal With Intrauterine (HCC) Selena Cordoba [facility] Gynecology M.DLashawn [address] [place] [phone] Referral ID Status Reason Start Date Expiration Date Visits V isits Requested Authorized [id number] Authorized 04/03/2021 04/03/2022 1 1 RANGE OPERATOR CLOTH Outpatient (Routine) - Authorized Specialty Diagnoses / Procedures Referred By Contact Refer red To Contact Obstetrics and Diagnoses Abdominal With Intrauterine (HCC) Selena Cordoba [facility] Gynecology M.DLashawn [address] [place] [phone] Referral ID Status Reason Start Date Expiration Date Visits V isits Requested Authorized [id number] Authorized 04/03/2021 04/03/2022 1 1 RANGE OPERATOR CLOTH Reason for Visit Reason Comments Follow-up ED visit Encounter Details Date Type Department Care Team Description 04/03/2021 Clinical Communication Department of Selena Cordoba (ED visit Family MedicinePer M.D. ) [address], in [address] [address] [facility] [phone] [place], [place] (Work) [phone] Social History Tobacco Use Types Packs/Day [...] this encounter Miscellaneous Notes Telephone Encounter - Cher Miller LLashawnP.N. - 04/07/2021 11:21 AM DYE RANGE OPERATOR CLOTH SUBJECTIVE CHIEF COMPLAINT / REASON FOR CALL Follow-up (ED visit ) Information Discussed Called patient regarding provider message. Patient states she is okay and was in ED for a typical migraine. Patient states she is going to her OB on Monday. Had no questions or concerns. PLAN Disposition/Recommendation: recommended continue engagement in self-management activities Information/Education: patient/caller able to teach back Caller agreeable to plan of care: yes The following references were used: nursing clinical judgement RANGE OPERATOR CLOTH Telephone Encounter - Selena Cordoba M.D. - 04/03/2021 9:47 PM CST Please call Dulce to check in on her after her ED visit. We would be happy to see her in clinic for post ED follow-up as needed. I recommend scheduling her next OB appointment as soon as possible as she is overdue for her anatomy scan, or if she is getting OB care elsewhere please disregard. Thank you, Selena Cordoba M.D. RANGE OPERATOR CLOTH documented in this encounter Plan of Treatment Scheduled Referrals Name Type Priority Associated Diagnoses [facility] and Outpatient Referral Routine Abdominal Expected: Gynecology - With Intrauterine 04/03/2021 Obstetrics consult ([facility]) (Appro ximate), (clinic) Expires: 07/02/2022 Obstetrics and Outpatient Referral Routine Abdominal Expected: Gynecology nurse With Intrauterine 2020 visit (clinic) (HCC) (Approxima te), Expires: 07/02/2022 documented as of this encounter Visit Diagnoses Diagnosis Abdominal With Intrauterine Pr egnancy ([facility]) - Primary documented in this encounter Additional Health Concerns Assessment Noted Time PHQ-9 Depression Total Score: 17 07/13/2020 3:09 PM CD T documented as of this encounter
--- OUTSIDE RECORDS SUMMARY | 2022-03-16 15:01 | XMS_ITS | Encounter Summary ---
:1980 Author Organization [facility] Address [address] [place] [address] Care Team Providers Name Role Phone Elsewhere, Pcp Primary Care Provider Unavailable Encounter Details Date Type Department Care Team Description 02/05/2021 Orders Only [facility] Esperanza [place] M.D. [address] [place] [address] [address] [place], [place] [address] [place] [address] [phone] (Wo rk) Social History Tobacco Use Types [...] How often do you attend rastafarian or More than 4 times per year 11/09/2020 gnosticism services? Do you belong to any clubs or No 11/09/2020 organizations such as rastafarian groups, unions, fraternal [...] documented as of this encounter Care Teams Manager Delivery Relationship Specialty Start Date End Date Elsewhere, Pcp PCP - General Internal Medicine 08/31/21 documented as of this encounter
--- OUTSIDE RECORDS SUMMARY | 2022-03-16 15:01 | XMS_ITS | Encounter Summary ---
:1980 Author Organization [facility] Address [address] [place] [address] Care Team Providers Name Role Phone Unavailable Primary Care Provider Unavailable Reason for Visit Reason Comments Migraine Encounter Details Date Type Department Care Team Description 03/17/2021 Emergency [place] [facility] Mansoor Perez Migraine Headache Department P.A.-C. (Primary Dx) [address] [place] [address] [address] [place] [phone] (Wo rk) Social History Tobacco Use Types [...] How often do you attend yarsanism or More than 4 times per year 11/09/2020 faith services? Do you belong to any clubs or No 11/09/2020 organizations such as yarsanism groups, unions, fraternal [...] Sign Reading Time Taken Comments Blood Pressure 109/74 03/17/2021 7:08 AM ACID RETORT OPERATOR Pulse 79 03/17/2021 7:08 AM ACID RETORT OPERATOR Temperature 36.5 ??C (97.7 ??F) 03/17/2021 7:08 AM ACID RETORT OPERATOR Respiratory Rate 18 03/17/2021 7:08 AM ACID RETORT OPERATOR Oxygen Saturation 97% 03/17/2021 7:08 AM ACID RETORT OPERATOR Inhaled Oxygen Concentration - - Weight - - Height - - Body Mass Index - - documented in this encounter Medications at Time [...] Take 1 tablet (800 35 tablet 0 /0 12/202006/28/2021 mg tablet mg total) by mouth [...] tablet by 100 tablet 11 11/18/2020 06/29/19 [id number] mouth daily. (VINATE ONE) 60 mg iron-1 [...] documented as of this encounter ED Notes Mansoor Perez P.A.-C. - 03/17/2021 7:18 AM CST SUBJECTIVE CHIEF COMPLAINT/REASON FOR VISIT Migraine HISTORY OF PRESENT ILLNESS 40 year old female presents to ED complaining of migraine headache since yesterday. Pt has a historyof migraines, has a typical migraine for her with nausea photophobia, some phonoiphobia. She has notbeen vomiting but is nauseated. She denies any fever, no chills, no neck pain. This is very consisten t with her normal pattern REVIEW OF SYSTEMS Constitutional: Negative. HENT: Negative. Eyes: Positive for photophobia. Negative for pain, guillermo-orbital edema, redness and visual disturbance. Respiratory: Negative. Cardiovascular: Negative. Gastrointestinal: Positive for nausea. Negative for diarrhea and vomiting. Genitourinary: Negative. Musculoskeletal: Negative. Negative for neck pain and neck stiffness. Skin: Negative. Neurological: Positive for headaches. Negative for dizziness, seizures, syncope, speech difficulty, weakness, light-headedness, numbness and loss of balance. Hematological: Negative. Psychiatric/Behavioral: Negative. OBJECTIVE Initial Vitals Temperature Pulse Rate Heart Rate Resp Rate Blood Pressure SpO2 03/17/21 0708 03/17/21 0708 -- 03/17/21 0708 03/17/21 0708 03/17/21 0708 36.5 ??C 79 18 109/74 97 % Pain Score 03/17/21 0709 8 PHYSICAL EXAMINATION Constitutional: Nursing note and vitals reviewed. HENT: Head: Normocephalic and atraumatic. Mouth/Throat: Mucous membranes are moist. Neck: Neck supple. No neck adenopathy. Cardiovascular: Normal rate, regular rhythm, normal heart sounds, intact distal pulses and normal pulses. Capillary refill: takes less than 3 seconds, Pulmonary/Chest: Effort normal and breath sounds normal. Abdominal: Soft. Bowel sounds are normal and non-distended. There is no abdominal tenderness. Musculoskeletal: General: Normal range of motion. Cervical back: Normal range of motion and neck supple. Neurological: Alert and oriented to person, place, and time. She has normal strength. Skin: Skin is warm and dry. Psychiatric: She has a normal mood and affect. Behavior is normal. ASSESSMENT/PLAN IMPRESSION AND PLAN Pt is given benadryl, tylenol, phenergan and 1 liter of normal saline and feels much better. Pain decreased from 10 to a 4. She has no red flag symptoms. She will return to ED for worsening pain, any fever, persistent vomiting, or new symptoms Final Diagnoses: as of 03/17/21 0811 Migraine Headache Mansoor Perez P.A.-C. 03/17/21 0851 RETORT OPERATOR Jazmyne De La Fuente R.N. - 03/17/2021 7:14 AM CST Pt presents to ED with migraine that started yesterday afternoon. Patient reports she took her migraine medication. Took benadryl at midnight. States her normal regimen had to be changed due to but what she was given at her last ED visit worked fine. Jazmyne De La Fuente R.N. 03/17/21 0716 RETORT OPERATOR documented in this encounter Plan of Treatment Not on filedocumented as of this encounter Visit Diagnoses Diagnosis Migraine Headache - Primary documented in this encounter Administered Medications Inactive Administered Medications - up to 3 most recent administrations Medication Order MAR Action Action Date Dose Rate Site acetaminophen tablet 1,000 mg Given 03/17/2021 7:35 AM ACID RETORT OPERATOR 1,000 mg (TYLENOL) 1,000 mg, oral, Once, On Mon03/17/21 at 0721, For 1 dose diphenhydrAMINE injection 25 mg (BENADRY L) Given 03/17/2021 7:39 AM ACID RETORT OPERATOR 25 mg 25 mg, intravenous, Once, On Mon03/17/21 at 0727, For 1 dose NaCl 0.9 % bolus 1,000 mL New Bag 03/17/2021 7:39 AM ACID RETORT OPERATOR 1,000 mL 1000 mL/hr 1,000 mL, intravenous, at 1,000 mL/hr, Administer over 1 Hours, Once, On Mon03/17/21 at 0721, For 1 dose promethazine injection 12.5 mg (PHENERGA N) Given 03/17/2021 7:41 AM ACID RETORT OPERATOR 12.5 mg 12.5 mg, intravenous, Once, On Mon03/17/21 at 0721, For 1 dose documented in this encounter Active and Recently Administered Medications Times are shown in ACID RETORT OPERATOR. Scheduled Medication Order 03/15/2021 03/16/2021 03/17/2021 acetaminophen tablet 1,000 mg (TYLENOL) (COMPLETED) 0735 (Given - Provider: Jazmyne De La Fuente R.N.) 1,000 mg, oral, Once, On Mon03/17/21 at 0721, For 1 dose diphenhydrAMINE injection 25 mg (BENADRYL) (COMPLETED) 738 (Given - Provider: Jazmyne De La Fuente R.N.) 25 mg, intravenous, Once, On Mon03/17/21 at 0727, For 1 dose NaCl 0.9 % bolus 1,000 mL (COMPLETED) 738 (New Bag - Provider: Jazmyne De La Fuente R.N.)08 (Stopped - Provider: Jazmyne De La Fuente R.N.) 1,000 mL, intravenous, at 1,000 mL/hr, A dminister over 1 Hours, Once, On Mon03/17/21 at 0721, For 1 dose promethazine injection 12.5 mg (PHENERGAN) (COMPLETED) 740 (Given - Provider: Jazmyne De La Fuente R.N.) 12.5 mg, intravenous, Once, On Mon03/17/21 at 0721, For 1 dose documented in this encounter Additional Health Concerns Assessment Noted Time PHQ-9 Depression Total Score: 17 07/13/2020 3:09 PM CD T documented as of this encounter
--- OUTSIDE RECORDS SUMMARY | 2022-03-16 15:01 | XMS_ITS | Encounter Summary ---
:1980 Author Organization [facility] Address [address] [place] [address] Care Team Providers Name Role Phone Unavailable Primary Care Provider Unavailable Reason for Visit Reason Comments Rash 40 year old female admits wi th concerns of localized skin rash left chest distal to left breast Encounter Details Date Type Department Care Team Description 01/23/2021 Emergency [facility] Mitchel Frank , Herpes Zoster (Primary Department CENTURA TECHNICAL LEAD SENIOR DEVELOPER, C.N.P. Dx) [id number] [place], [place] [address] [phone] (Wo rk) Social History Tobacco Use Types [...] Sign Reading Time Taken Comments Blood Pressure 136/76 01/23/2021 10:00 AM CDT Pulse 104 01/23/2021 10:00 AM CDT Temperature 35.8 ??C (96.4 ??F) 01/23/2021 10:00 AM CDT Respiratory Rate 18 01/23/2021 10:00 AM CDT Oxygen Saturation 98% 01/23/2021 10:00 AM CDT Inhaled Oxygen Concentration - - Weight 96.9 kg (213 lb 10 oz) 01/23/2021 10:01 AM CDT Height - - Body Mass Index 39.07 12/06/2020 4:44 PM CDT documented in this encounter Discharge Instructions AttachmentsThe following attachments cannot be sent through Care Everywhere. Shingles Hidf-wi-Bqae (Lithuanian)documented in this encounter Medications at Time of Discharge Medication Sig Dispensed Refills Start Date End Date acetaminophen (TYLENOL) Take 650 mg by 0 325 mg tablet mouth every 4 (four) hours as needed for pain. ascorbic acid, vitamin C, TAKE 1 TABLET BY 100 tablet 3 08/2020 (VITAMIN C) 500 mg tablet MOUTH DAILY ondansetron (ZOFRAN) 4 mg TAKE 1 TABLET BY 30 tablet 2 08/202011/19/2021 tablet MOUTH EVERY SIX HOURS NEEDED acyclovir [...] tablet (250 mg) daily for 4 days. butalbital-acetaminophen- Take 1 tablet by 0 12/1608/31/2021 caff (ESGIC) 50-325-40 mg mouth every 6 (six) per tablet hours as needed for headaches or migraine. butalbital-acetaminophen- TAKE 1 TO 2 TABLETS 20 tablet 0 1 01/05/2022 caff (ESGIC) 50-325-40 mg BY MOUTH EVERY FOUR per tablet HOURS; DO NOT EXCEED 6 TABLETS IN TWENTY-FOUR HOURS butalbital-acetaminophen- TAKE 1 TO 2 TABLETS 30 tablet 0 0 12/28/2020 01/05/2022 caff (ESGIC) 50-325-40 mg BY MOUTH EVERY FOUR per tablet HOURS NEEDED; DO NOT EXCEED 6 TABLETS IN TWENTY-FOUR HOURS cefdinir (OMNICEF) 300 mg Take 1 capsule (300 14 capsule 0 1 06/28/2021 capsule mg total) by mouth 2 (two) times a day before breakfast and dinner. cetirizine (ZyrTEC) 10 mg Take 10 mg by mouth 0 0 11/19/2020 03/06/2022 tablet daily. cetirizine (ZyrTEC) 10 mg TAKE 1 TABLET BY 90 tablet 3 0808/202001/05/2022 tablet MOUTH DAILY cholecalciferol, vitamin Take 1,000 [...] 0 01/06/2021 0 06/28/2021 10 mg tablet oxyCODONE (ROXICODONE) 5 0 12/29/2020 06/28/2021 mg immediate release tablet PARoxetine (PAXIL) 10 mg TAKE ONE-HALF 15 tablet 0 10/07/19 21 01/05/2022 tablet TABLET BY MOUTH DAILY Take 1 tablet by 100 tablet 11 11/18/2020 06/29/19 [id number] mouth daily. (VINATE ONE) 60 mg iron-1 [...] and patches documented as of this encounter Consult Notes Karina Tomlinson M.D. - 01/23/2021 10:43 AM CDT ED TELE-EMERGENCY MEDICINE PHONE CONSULT NOTE ACTIVATION Activation Date/Time: 01/23/2021 10:55 AM Reason: Other Patient Location: [facility] ED Facility: [facility] Attending: Mitchel Frank SUBJECTIVE CHIEF COMPLAINT/REASON FOR VISIT Rash (40 year old female admits with concerns of localized skin rash left chest distal to left breast) HISTORY OF PRESENT ILLNESS Patient is 40-year-old female who is 17 weeks who presents to the emergency department for evaluation of a rash. Patient first noticed the rash 2 days ago. Per outside provider the rash is consistent with shingles. Otherwise patient is well-appearing and no evidence of disseminated zoster. She is being treated for bronchitis with cefdinir and symptoms are improving. History provided by: healthcare provider quality control assessor needed/used: No OBJECTIVE Initial Vitals [01/23/21 1000] Temperature Pulse Rate Heart Rate Resp Rate Blood Pressure SpO2 (!) 35.8 ??C 104 -- 18 136/76 98 % Pain Score 5 - Moderate pain ASSESSMENT/PLAN Provider enquiring regarding best antiviral to initiate given that the patient is . Discussed with pharmacist in the emergency department who recommended acyclovir 800 mg 5 times a day for 7 days. I also recommended that the provider discussed this with OBGYN. At this time there are no further questions in the call was concluded. Final Diagnoses: as of Jan 23 1055 Herpes Zoster Karina Tomlinson M.D. 01/23/21 1229 documented in this encounter ED Notes Mitchel Frank APRN, C.NStarr. - 01/23/2021 10:43 AM CDT Images from the original note were not included. SUBJECTIVE CHIEF COMPLAINT/REASON FOR VISIT Rash (40 year old female admits with concerns of localized skin rash left chest distal to left breast) HISTORY OF PRESENT ILLNESS Patient is a pleasant 40-year-old female coming for evaluation of rash which started on . She has been recently treated with antibiotics for upper respiratory infection which has been ongoing for the past 2 weeks. This rash is right along the right side of her chest wrapping around to the back. She states that it is very painful and has some blistering affect 2. She has not tried anything at home. She states that her upper respiratory infection has significantly improved since being started on cefdinir. Allergies have been reviewed. REVIEW OF SYSTEMS Constitutional: Negative for fatigue and fever. HENT: Negative for sneezing and sore throat. Respiratory: Positive for cough. Negative for chest tightness, orthopnea and shortness of breath. Cardiovascular: Negative for chest pain. Gastrointestinal: Negative for nausea and vomiting. Genitourinary: Negative for decreased urine volume and urgency. Musculoskeletal: Negative for back pain. Skin: Positive for rash. Neurological: Negative for weakness and headaches. Hematological: Does not bruise/bleed easily. Psychiatric/Behavioral: The patient is not nervous/anxious. OBJECTIVE Initial Vitals [01/23/21 1000] Temperature Pulse Rate Heart Rate Resp Rate Blood Pressure SpO2 (!) 35.8 ??C 104 -- 18 136/76 98 % Pain Score 5 - Moderate pain PHYSICAL EXAMINATION Constitutional: Vital signs are normal. She appears not [...] intact cranial nerves. She is not disoriented. GCS eye subscore is 4. GCS verbal subscore is 5. GCS motor subscore is 6. Normal speech. Gait normal. Skin: Skin is warm, dry, intact and normal color. She is not diaphoretic. Psychiatric: She has a normal mood and affect. Speech pattern is normal. Judgment and thought content normal. Relaxed.Cognition and memory are normal. ASSESSMENT/PLAN IMPRESSION AND PLAN Patient pleasant 40-year-old female coming for evaluation of a rash on her right chest. She is currently 17 weeks . Her overall evaluation suggestive of herpes zoster. Will discuss the case with OBGYN and tele a.m. and pharmacy to discuss safety of acyclovir in and this determine whether there is any interventions that need to be done for baby. After speaking with consultants at this time will treat appropriately with acyclovir for a 7 day course 5 times a day. Show of prompt follow-up with OBGYN for recommendations. And was given return precautions such as worsening shortness of breath or development of fever chills or worsening of her cough. As this could in indicate a varicella pneumonia did go over in great detail with her in regards tothis. She verbalized understanding this. The patient was discharged stable condition. ED Course as of Jan 24 1048 Sat Jan 23, 2021 1014 Patient's overall exam is suggestive of herpes zoster. Will reach out to OBGYN and telemedicineregards to acyclovir treatment and further monitoring of the baby. 1047 Spoke with INDUSTRIAL ENGINEERING DIRECTOR doctor Hossein was at this point she does not recommend any significant change in management just appropriate treatment for the shingles and prompt follow-up with OBGYN 1047 Confirmed with tele pharmacy in regards to acyclovir 5 times a day 800 mg for 7 days. Final Diagnoses: as of Jan 24 1048 Herpes Zoster Mitchel Frank APRN, C.N.P. 01/23/21 1056 documented in this encounter Plan of Treatment Not on filedocumented as of this encounter Visit Diagnoses Diagnosis Herpes Zoster - Primary documented in this encounter Additional Health Concerns Assessment Noted Time PHQ-9 Depression Total Score: 17 07/13/2020 3:09 PM CD T documented as of this encounter
--- OUTSIDE RECORDS SUMMARY | 2022-03-16 15:01 | XMS_ITS | Encounter Summary ---
:1980 Author Organization [facility] Address [address] [place] [address] Care Team Providers Name Role Phone Elsewhere, Pcp Primary Care Provider Unavailable Encounter Details Date Type Department Care Team Description 03/12/2021 Orders Only [facility] Carmen [place] D.N.P. [address] [place], [place] [address] [place] [address] [phone] (Wo rk) Social History Tobacco Use Types [...] or relatives? How often do you attend baptist or More than 4 times per year 11/09/2020 zoroastrian services? Do you belong to any clubs or No 11/09/2020 organizations such as baptist groups, unions, fraternal or athletic groups, or [...] documented as of this encounter Care Teams Welt Cutter Relationship Specialty Start Date End Date Elsewhere, Pcp PCP - General Internal Medicine 08/31/21 documented as of this encounter
--- OUTSIDE RECORDS SUMMARY | 2022-03-16 15:01 | XMS_ITS | Encounter Summary ---
:1980 Author Organization [facility] Address [address] [place] [address] Care Team Providers Name Role Phone Elsewhere, Pcp Primary Care Provider Unavailable Encounter Details Date Type Department Care Team Description 12/28/2020 Orders Only [facility] Lin Patel M.D. [address] [address] [place], [place] [address] [phone] Social History Tobacco Use Types Packs/Day Years [...] or relatives? How often do you attend sabianist or More than 4 times per year 11/09/2020 mu-ism services? Do you belong to any clubs or No 11/09/2020 organizations such as sabianist groups, unions, fraternal or athletic groups, or [...] to pay for the very basics like miLibrisw hat hard 11/09/2020 food, housing, medical care, [...] documented as of this encounter Care Teams Pacs Specialist Relationship Specialty Start Date End Date Elsewhere, Pcp PCP - General Internal Medicine 08/31/21 documented as of this encounter
--- OUTSIDE RECORDS SUMMARY | 2022-03-16 15:01 | XMS_ITS | Encounter Summary ---
:1980 Author Organization [facility] Address [address] [place] [address] Care Team Providers Name Role Phone Unavailable Primary Care Provider Unavailable Reason for Visit Reason Comments Migraine Pt presents to ED with migra ine. Encounter Details Date Type Department Care Team Description 03/17/2021 Emergency [facility] Mansoor Perez , Headache Unspecified (Primary Dx); Department P.A.-C. Migraine Headache [address] [place] [address] [address] [place] [id number] [phone] (Wo rk) Social History Tobacco Use Types [...] or relatives? How often do you attend jewish or More than 4 times per year 11/09/2020 congregational services? Do you belong to any clubs or No 11/09/2020 organizations such as jewish groups, unions, fraternal or athletic groups, or [...] Sign Reading Time Taken Comments Blood Pressure 109/76 03/17/2021 5:31 PM HEADSTART TEACHER Pulse 66 03/17/2021 5:31 PM HEADSTART TEACHER Temperature 36.5 ??C (97.7 ??F) 03/17/2021 5:31 PM HEADSTART TEACHER Respiratory Rate 28 03/17/2021 5:31 PM HEADSTART TEACHER Oxygen Saturation 95% 03/17/2021 5:31 PM HEADSTART TEACHER Inhaled Oxygen Concentration - - Weight 99.2 kg (218 lb 11.1 oz) 03/17/2021 2:50 PM HEADSTART TEACHER Height - - Body Mass Index 40 12/06/2020 4:44 PM CDT documented in this encounter Discharge Instructions AttachmentsThe following attachments cannot be sent through Care Everywhere. Migraine Headache Nwhy-sp-Yfwr (Cymro)documented in this encounter Medications at Time of [...] tablet by 100 tablet 11 11/18/2020 06/29/19 hraumgk-Hk-vkbz-FA mouth daily. (VINATE ONE) 60 mg iron-1 [...] ED Notes Mansoor Perez P.A.-C. - 03/17/2021 3:25 PM CST SUBJECTIVE CHIEF COMPLAINT/REASON FOR VISIT Migraine (Pt presents to ED with migraine. ) HISTORY OF PRESENT ILLNESS Pt is a 40 year old female who presents to ED with concern for intractable migraine headache after being seen this [facility] for same. She initially felt much improved after phenergan, tylenol and benadryl which usually works very well for her, but did still have a mild headache when she left which she states has steadily worsened until she needed to return to ED for additional medication. She denies any head injury, no fever, neck pain or stiffness. She has had headaches this severe before, this is not the worst headache of her life. REVIEW OF SYSTEMS Constitutional: Negative. HENT: Negative. Eyes: Positive for photophobia. Respiratory: Negative. Cardiovascular: Negative. Gastrointestinal: Positive for nausea. Negative for abdominal pain and vomiting. Endocrine: Negative. Musculoskeletal: Negative. Skin: Negative. Neurological: Positive for headaches. Negative for dizziness, seizures, facial asymmetry, speech difficulty, weakness, numbness and loss of balance. Hematological: Negative. Psychiatric/Behavioral: Negative. OBJECTIVE Initial Vitals Temperature Pulse Rate Heart Rate Resp Rate Blood Pressure SpO2 03/17/21 1450 03/17/21 1445 -- 03/17/21 1450 03/17/21 1450 03/17/21 1445 36.8 ??C 83 16 116/85 97 % Pain Score 03/17/21 1452 7 PHYSICAL EXAMINATION Constitutional: Vitals reviewed. No distress. Well appearing, pleasant 40 year old female in [facility] who is wearing sunglasses to block the light HENT: Head: Atraumatic. Mouth/Throat: Mucous membranes are moist. Neck: Neck supple. Cardiovascular: Normal rate, regular rhythm, normal heart sounds, intact distal pulses and normal pulses. Capillary refill: takes less than 3 seconds, Pulmonary/Chest: Effort normal and breath sounds normal. Abdominal: Soft. Bowel sounds are normal and non-distended. There is no abdominal tenderness. Musculoskeletal: General: Normal range of motion. Cervical back: Neck supple. Neurological: Alert and oriented to person, place, and time. She has normal strength. No cranial nerve deficit. Skin: Skin is warm and dry. Psychiatric: She has a normal mood and affect. Behavior is normal. ASSESSMENT/PLAN IMPRESSION AND PLAN Pt is given tylenol, benadryl and phenergan which works well for her migraines and feels much better. She has reassuring labs. I did order a head CT due to concerns about her bouncing back so rapidly, but she refused this stating that her headache is so classic for her migraines that she didn't see any benefit to it. She has no concern this is anything other than a migraine. I reviewed previous medical records including documentation from previous visits and lab results. I personally reviewed the lab result(s) and my interpretation is no significant findings. Final Diagnoses: as of 03/24/21 1535 Headache Unspecified Migraine Headache Mansoor Perez P.A.-C. 03/24/21 1535 START TEACHER documented in this encounter Plan of Treatment Not on filedocumented as of this encounter Procedures Procedure Name Priority Date/Time Associated Diagnosis Comme nts CBC WITHOUT STAT 03/17/2021 4:09 PM Results f or this DIFFERENTIAL, B HEADSTART TEACHER procedure ar e in the results section. BASIC METABOLIC STAT 03/17/2021 4:09 PM Result s for this PANEL, S/P HEADSTART TEACHER procedure are i n the results section. documented in this encounter Results (ABNORMAL) Basic Metabolic Panel (03/17/2021 4:09 PM HEADSTART TEACHER) Analysis Performed At Patho logist Time Signature Potassium, P 4.2 3.6 - 5.2 03/17/2021 [facility] mmol/L 4:30 PM HEADSTART TEACHER Sodium, P 135 135 - 145 03/17/2021 [facility] mmol/L 4:30 PM HEADSTART TEACHER Chloride, P 105 98 - 107 03/17/2021 [facility] mmol/L 4:30 PM HEADSTART TEACHER Bicarbonate, P 19 (L) 22 - 29 03/17/2021 [facility] mmol/L 4:30 PM HEADSTART TEACHER Anion Gap, P 11 7 - 15 03/17/2021 [facility] 4:30 PM HEADSTART TEACHER BUN (Blood Urea 5 (L) 6 - 21 03/17/2021 [facility] Nitrogen), P mg/dL 4:30 PM HEADSTART TEACHER Creatinine 0.39 (L) 0.59 - 03/17/2021 [facility] 1.04 mg/dL 4:30 PM HEADSTART TEACHER eGFR-Black/Afri >90 >=60 03/17/2021 [facility] can Central African mL/min/BSA 4:30 PM HEADSTART TEACHER Comment: ----ADDITIONAL INFORMATION---- Estimated GFR calculated using the 2009 CKD_EPI creatinine equation. eGFR Non-Black/ >90 >=60 mL/min/BSA 03/17/2021 4:30 PM HEADSTART TEACHER [facility] Comment: ----ADDITIONAL INFORMATION---- Estimated GFR calculated using the 2009 CKD_EPI creatinine equation. Calcium, Total, P 8.4 (L) 8.6 - 10.0 mg/dL 03/17/2021 4:30 PM HEADSTART TEACHER [facility] Glucose, P 84 70 - 140 mg/dL 03/17/2021 4:30 PM HEADSTART TEACHER C NFL Specimen Anatomical Collection Method Collection Time Receive d Time (Source) Location / / Volume Laterality Blood (Blood, 03/17/2021 4:09 PM 03/17/20 4:10 Venous) HEADSTART TEACHER PM HEADSTART TEACHER Mansoor Perez P.A.-C. LAB BLOOD ADD-ON Performing Organization Address City/State/ZIP Code Phon e Number [facility]- [address] [place] [id number] [place] [address] [place] [address] System in [address] (ABNORMAL) CBC without Differential (03/17/2021 4:09 PM HEADSTART TEACHER) [facility] gist Method Time Signature Hemoglobin 9.8 (L) 11.6 - 03/17/2021 [facility] 15.0 g/dL 4:21 PM HEADSTART TEACHER Hematocrit 30.2 (L) 35.5 - 03/17/2021 [facility] 44.9 % 4:21 PM HEADSTART TEACHER Erythrocytes 3.11 (L) 3.92 - 03/17/2021 [facility] 5.13 4:21 PM HEADSTART TEACHER x10(12)/L MCV 97.1 78.2 - 03/17/2021 [facility] 97.9 fL 4:21 PM HEADSTART TEACHER RBC Distrib Width 13.5 12.2 - 03/17/2021 [facility] 16.1 % 4:21 PM HEADSTART TEACHER Platelet Count 318 157 - 371 03/17/2021 [facility] x10(9)/L 4:21 PM HEADSTART TEACHER Leukocytes 10.1 (H) 3.4 - 9.6 03/17/2021 [facility] x10(9)/L 4:21 PM HEADSTART TEACHER Specimen Anatomical Collection Method Collection Time Receive d Time (Source) Location / / Volume Laterality Blood (Blood, 03/17/2021 4:09 PM 03/17/20 4:10 Venous) HEADSTART TEACHER PM HEADSTART TEACHER Mansoor Perez P.A.-C. LAB BLOOD ADD-ON Performing Organization Address City/State/ZIP Code Phon e Number [facility]- [address] [place] [address] [place] [address] [place] [address] System in [address] documented in this encounter Visit Diagnoses Diagnosis Headache Unspecified - Primary Migraine Headache documented in this encounter Administered Medications Inactive Administered Medications - up to 3 most recent administrations Medication Order MAR Action Action Date Dose Rate Site diphenhydrAMINE injection 25 mg Given 03/17/2021 4:05 PM HEADSTART TEACHER 25 mg (BENADRYL) 25 mg, intravenous, Once, On Mon03/17/21 at 1559, For 1 dose NaCl 0.9 % bolus 1,000 mL New Bag 03/17/2021 4:06 PM HEADSTART TEACHER 1,000 mL 1000 mL/hr 1,000 mL, intravenous, at 1,000 mL/hr, Administer over 1 Hours, Once, On Mon03/17/21 at 1559, For 1 dose promethazine injection 12.5 mg (PHENERGA N) Given 03/17/2021 4:06 PM HEADSTART TEACHER 12.5 mg 12.5 mg, intravenous, Once, On Mon03/17/21 at 1559, For 1 dose documented in this encounter Active and Recently Administered Medications Times are shown in HEADSTART TEACHER. Scheduled Medication Order 03/15/2021 03/16/2021 03/17/2021 acetaminophen tablet 1,000 mg (TYLENOL) 1559 (Due) 1,000 mg, oral, Once, On Mon03/17/21 at 1559, For 1 dose diphenhydrAMINE injection 25 mg (BENADRYL) (COMPLETED) 1605 (Given - Provider: Garrett Drake R.N.) 25 mg, intravenous, Once, On Mon03/17/21 at 1559, For 1 dose NaCl 0.9 % bolus 1,000 mL (COMPLETED) 1606 (New Bag - Provider: Garrett Drake R.N.)1730 (Stopped - Provider: Alison Tanner R.N.) 1,000 mL, intravenous, at 1,000 mL/hr, A dminister over 1 Hours, Once, On Mon03/17/21 at 1559, For 1 dose promethazine injection 12.5 mg (PHENERGAN) (COMPLETED) 1606 (Given - Provider: Garrett Drake R.N.) 12.5 mg, intravenous, Once, On Mon03/17/21 at 1559, For 1 dose documented in this encounter Additional Health Concerns Assessment Noted Time PHQ-9 Depression Total Score: 17 07/13/2020 3:09 PM CD T documented as of this encounter
--- OUTSIDE RECORDS SUMMARY | 2022-03-16 15:01 | XMS_ITS | Encounter Summary ---
:1980 Author Organization [facility] Address [address] [place] [address] Care Team Providers Name Role Phone Elsewhere, Pcp Primary Care Provider Unavailable Encounter Details Date Type Department Care Team Description 01/18/2021 Orders Only [facility] Jhonatan sanchez, Yaniv Hannon, C.N.M. [address] [place], [place] [address] [place] [address] [phone] (Wo rk) Social History Tobacco Use Types [...] documented as of this encounter Care Teams Taffy Candy Maker Relationship Specialty Start Date End Date Elsewhere, Pcp PCP - General Internal Medicine 08/31/21 documented as of this encounter
--- OUTSIDE RECORDS SUMMARY | 2022-03-16 15:01 | XMS_ITS | Encounter Summary ---
:1980 Author Organization [facility] Address [address] [place] [address] Care Team Providers Name Role Phone Unavailable Primary Care Provider Unavailable Reason for Visit Reason Comments Migraine presents c/o migraine Encounter Details Date Type Department Care Team Description 02/20/2021 Emergency [facility] Mitchel Frank , Migraine Headache Department PROJECT DRILLING ENGINEER, C.N.P. (Primary Dx) [address] [place] [address], [place] [phone] (Wo rk) Social History Tobacco Use Types [...] or relatives? How often do you attend congregational or More than 4 times per year 11/09/2020 druze services? Do you belong to any clubs or No 11/09/2020 organizations such as congregational groups, unions, fraternal or athletic groups, or [...] Reading Time Taken Comments Blood Pressure 110/72 02/20/2021 8:30 PM CDT Pulse 81 02/20/2021 8:45 PM CDT Temperature 36.8 ??C (98.2 ??F) 02/20/2021 8:21 PM CDT Respiratory Rate - - Oxygen Saturation 99% 02/20/2021 8:45 PM CDT Inhaled Oxygen Concentration - - Weight - - Height - - Body Mass Index - - documented in this encounter Discharge Instructions AttachmentsThe following attachments cannot be sent through Care Everywhere. Migraine Headache Dyjs-fv-Wris (Korean)documented in this encounter Medications at Time of [...] Take 1 tablet (800 35 tablet 0 10/0 12/2020 06/28/2021 mg tablet mg total) by mouth 5 [...] tablet by 100 tablet 11 11/18/2020 06/29/19 [id number] mouth daily. (VINATE ONE) 60 mg iron-1 [...] as of this encounter ED Notes Mitchel Frank APRN, C.N.P. - 02/20/2021 8:00 PM CDT SUBJECTIVE CHIEF COMPLAINT/REASON FOR VISIT No chief complaint on file. HISTORY OF PRESENT ILLNESS Patient is a 40-year-old female coming for evaluation of migraine. She is 21 weeks . She hashad multiple migraines during her . She was recently seen in the ER last week. She states that her headache and symptoms are very typical of her normal migraine pattern. She states that it wasgradual in its onset. She has not tried anything significant at home to help relieve her symptoms. She does note light sensitivity some nausea and a wrap-around headache. She denies any neck pain fevers chills or any other accompanying symptoms. History provided by: Patient REVIEW OF SYSTEMS Constitutional: Negative for fatigue [...] Does not bruise/bleed easily. OBJECTIVE Initial Vitals Temp Pulse Heart Rate Resp BP SpO2 -- -- -- -- -- -- Pain Score -- PHYSICAL EXAMINATION Constitutional: [...] normal. ASSESSMENT/PLAN IMPRESSION AND PLAN Patient pleasant 32-year-old female who is 21 weeks coming in for evaluation migraine. Her overall exam and history ordered reassuring. I have low suspicion for subarachnoid hemorrhage or other intracranial hemorrhage. I am highly suspicious for underlying migraine headache. She will be givenher normal concoction of Tylenol promethazine Benadryl and L of fluid. Will reassess. Overall I feelthe patient will be discharged home. I reviewed previous medical records including documentation from previous visits. Mitchel Frank APRN, C.N.P. 02/20/212001 documented in this encounter Plan of Treatment Not on filedocumented as of this encounter Visit Diagnoses Diagnosis Migraine Headache - Primary documented in this encounter Administered Medications Inactive Administered Medications - up to 3 most recent administrations Medication Order MAR Action Action Date Dose Rate Site acetaminophen tablet 1,000 mg Given 02/20/2021 8:05 PM CDT 1,000 mg (TYLENOL) 1,000 mg, oral, Once, On 02/20/21 at 1946, For 1 dose diphenhydrAMINE injection 50 mg (BENADRY L) Given 02/20/2021 8:03 PM CDT 50 mg 50 mg, intravenous, Once, On 02/20/21 at 1946, For 1 dose NaCl 0.9 % bolus 1,000 mL New Bag 02/20/2021 8:04 PM CDT 1,000 mL 1000 mL/hr 1,000 mL, intravenous, at 1,000 mL/hr, Administer over 1 Hours, Once, On 02/20/21 at 1955, For 1 dose promethazine injection 12.5 Given 02/20/2021 8:04 PM 12.5 mg Left Vastus mg (PHENERGAN) CDT Lateralis 12.5 mg, intramuscular, Once, On 02/20/21 at 1955, For 1 dose documented in this encounter Active and Recently Administered Medications Times are shown in CDT. Scheduled Medication Order 02/18/2021 02/19/2021 02/20/2021 acetaminophen tablet 1,000 mg (TYLENOL) (COMPLETED) 2004 (Given - Provider: Lois Rice RLashawnNLashawn) 1,000 mg, oral, Once, On 02/20/21 at 1946, For 1 dose diphenhydrAMINE injection 50 mg (BENADRYL) (COMPLETED) 2002 (Given - Provider: Tong HyattNLashawn) 50 mg, intravenous, Once, On 02/20/21 at 1946, For 1 dose NaCl 0.9 % bolus 1,000 mL (COMPLETED) 2003 (New Bag - Provider: Lois Rice RLashawnN.)2038 (Stopped - Provider: Tong HyattNLashawn) 1,000 mL, intravenous, at 1,000 mL/hr, A dminister over 1 Hours, Once, On 02/20/21 at 1955, For 1 dose promethazine injection 12.5 mg (PHENERGAN) (COMPLETED) 2003 (Given - Provider: Lois Rice R.N.) 12.5 mg, intramuscular, Once, On 02/20/21 at 1955, For 1 dose documented in this encounter Additional Health Concerns Assessment Noted Time PHQ-9 Depression Total Score: 17 07/13/2020 3:09 PM CD T documented as of this encounter
--- OUTSIDE RECORDS SUMMARY | 2022-03-16 15:01 | XMS_ITS | Encounter Summary ---
:1980 Author Organization [facility] Address [address] [place] [address] Care Team Providers Name Role Phone Elsewhere, Pcp Primary Care Provider Unavailable Encounter Details Date Type Department Care Team Description 02/10/2021 Orders Only [facility] Jhonatan verma, Madeline Hannon M.D. [address] [address] [place], [place] [address] [phone] Social History Tobacco Use Types Packs/Day Years [...] or relatives? How often do you attend gnosticism or More than 4 times per year 11/09/2020 protestant services? Do you belong to any clubs or No 11/09/2020 organizations such as gnosticism groups, unions, fraternal or athletic groups, or [...] to pay for the very basics like [employer] hat hard 11/09/2020 food, housing, medical care, [...] documented as of this encounter Care Teams Boiler Tenders Supervisor Relationship Specialty Start Date End Date Elsewhere, Pcp PCP - General Internal Medicine 08/31/21 documented as of this encounter
--- OUTSIDE RECORDS SUMMARY | 2022-03-16 15:01 | XMS_ITS | Encounter Summary ---
:1980 Author Organization [facility] Address [address] [place] [address] Care Team Providers Name Role Phone Unavailable Primary Care Provider Unavailable Reason for Visit Reason Comments Nasal Congestion Encounter Details Date Type Department Care Team Description 01/10/2021 Emergency [place] [facility] Vaughn Lynch S inusitis Acute Maxillary (Primary Dx); Department C.N.P. Infection Upper Respiratory [address] [place] [address] [address] [place], [place] Zabrina Banegas [address] [place], [place] [phone] (Wo rk) Social History Tobacco Use [...] or relatives? How often do you attend religion or More than 4 times per year 11/09/2020 holiness services? Do you belong to any clubs or No 11/09/2020 organizations such as religion groups, unions, fraternal or athletic groups, or [...] Sign Reading Time Taken Comments Blood Pressure 109/70 01/10/2021 8:53 PM CDT Pulse 110 01/10/2021 8:53 PM CDT Temperature 36.4 ??C (97.5 ??F) 01/10/2021 8:53 PM CDT Respiratory Rate 18 01/10/2021 8:53 PM CDT Oxygen Saturation 98% 01/10/2021 8:53 PM CDT Inhaled Oxygen Concentration - - Weight - - Height - - Body Mass Index - - documented in this encounter Discharge Instructions Discharge InstructionsStVaughn chapin, C.N.P. - 01/10/2021 9:25 PM CDT Antibiotics as indicated. Robitussin is safe in . Continue with honey every 1-2 hours for cough. Warm teas might also help. Tylenol as needed for aches and pains. Thank you for utilizing [facility] for your care! AttachmentsThe following attachments cannot be sent through Care Everywhere. Upper Respiratory Infection Adult Hqmm-fq-Bnwa (Lao)Sinusitis Adult Ccvo-tm-Fhsf (Lao)documented in this encounter Medications at Time of Discharge Medication Sig Dispensed Refills Start Date End Date acetaminophen (TYLENOL) Take 650 mg by 0 325 mg tablet mouth every 4 (four) hours as needed for pain. ascorbic acid, vitamin C, TAKE 1 TABLET BY 100 tablet 3 08/08/2020 (VITAMIN C) 500 mg tablet MOUTH DAILY butalbital-acetaminophen- Take 1 tablet by 0 09/06/202008/31/2021 caff (ESGIC) 50-325-40 mg mouth every 6 (six) per tablet hours as needed for headaches or migraine. DULoxetine (CYMBALTA) 30 Take 1 capsule (30 30 capsule 3 11/202008/31/[address] capsule mg total) by mouth daily. Dose reduction 10/22/20. metoclopramide (REGLAN) 0 01/06/2021 0 06/28/2021 10 mg tablet oxyCODONE (ROXICODONE) 5 0 12/29/2020 06/28/2021 mg immediate release tablet Take 1 tablet by 100 tablet 11 11/18/2020 06/29/19 22 fumdhvh-Tn-rvrk-FA mouth daily. (VINATE ONE) 60 mg iron-1 mg per tablet ondansetron (ZOFRAN) 4 mg TAKE 1 TABLET BY 30 tablet 2 08/202011/19/2021 tablet MOUTH EVERY SIX HOURS NEEDED ascorbic acid with rachel 0 11/19/2020 0 06/28/2021 hips 500 mg tablet azithromycin (ZITHROMAX) Take 1 tablet (250 6 tablet 0 06/28/2021 250 mg tablet mg total) by mouth daily. Take 2 tablets (500 mg) on day 1, followed by 1 tablet (250 mg) daily for 4 days. butalbital-acetaminophen- TAKE 1 TO 2 TABLETS 30 tablet 0 0 12/28/2020 01/05/2022 caff (ESGIC) 50-325-40 mg BY MOUTH EVERY FOUR per tablet HOURS NEEDED; DO NOT EXCEED 6 TABLETS IN TWENTY-FOUR HOURS cetirizine (ZyrTEC) 10 mg Take 10 mg by mouth 0 0 11/19/2020 03/06/2022 tablet daily. cetirizine (ZyrTEC) 10 mg TAKE 1 TABLET BY 90 tablet 3 08/0 08/202001/05/2022 tablet MOUTH DAILY cholecalciferol, vitamin Take 1,000 Units by 0 07/20/2021 D3, (cholecalciferol) mouth daily. 1,000 Unit tablet doxylamine 25 mg tablet Take 0.5 tablets 30 tablet 0 202006/28/2021 (12.5 mg total) by mouth 2 (two) times a day as needed for nausea. PARoxetine (PAXIL) 10 mg TAKE ONE-HALF 15 tablet 0 10/07/19 21 01/05/2022 tablet TABLET BY MOUTH DAILY psyllium seed, with Take by mouth 0 [...] encounter ED Notes Vaughn Lynch C.N.P. - 01/10/2021 9:13 PM CDT SUBJECTIVE CHIEF COMPLAINT / REASON FOR VISIT Nasal Congestion HISTORY OF PRESENT ILLNESS Dulce Lei is a 40 y.o. who has a past medical history of Asthma ([facility]). who presents to the Emergency Department with complaints of sinus congestion. Patient recently was hospitalized on Monday for emergency removal of her gallbladder. When she wokeup from surgery she had a sore throat, and now she has developed some sinus congestion, she has had a cough the last 24 hours. She feels like her asthma might be acting up. Old however she, she has nothad an asthma flare in many many years. Patient states she is having some abdominal crampy with coughing secondary to incisional pain. Patient is also 15 weeks . Patient denies any fever, endorses chills, but denies sweats. Denies any nausea or vomiting, diarrhea, body aches. Patient states she has had 2 sinus surgeries in gets frequent sinus infections. History provided by: Patient REVIEW OF SYSTEMS Constitutional: Negative for chills, diaphoresis, fatigue and fever. HENT: Positive for congestion, postnasal drip, rhinorrhea, sinus pressure and sore throat. Negative for facial swelling. Respiratory: Negative for cough, chest tightness and shortness of breath. Cardiovascular: Negative for chest pain. Gastrointestinal: Positive for abdominal pain (With coughing. Status post cholecystectomy 5 days ago.). Negative for constipation, diarrhea, nausea and vomiting. Genitourinary: Negative for dysuria, frequency and urgency. Musculoskeletal: Negative for arthralgias and myalgias. Skin: Negative for rash. Neurological: Negative for dizziness, weakness and headaches. Hematological: Negative for adenopathy. Does not bruise/bleed easily. All other systems reviewed and are negative. CURRENT MEDICATIONS Reviewed in medical record. ALLERGIES [...] brostrom repair; Surgeon: Alexsander Marshall M.D.; Location: [facility] OR ??? TONSILLECTOMY AND ADENOIDECTOMY N/A 04/17/1994 [...] Currently OBJECTIVE INITIAL VITAL SIGNS: Initial Vitals Temperature Pulse Rate Heart Rate Resp Rate Blood Pressure SpO2 01/10/21205201/10/212052 -- 01/10/21205201/10/21205201/10/212052 36.4 ??C 110 18 109/70 98 % Pain Score 01/10/212053 4 Wt Readings from Last 3 Encounters: 12/13/20 98.7 kg 12/03/20 97.2 kg 11/09/20 97 kg PHYSICAL EXAMINATION Constitutional: Nursing note and vitals reviewed. No distress. HENT: Nose: No nasal discharge. Mouth/Throat: Oropharynx is clear and moist. Mucous membranes are moist. No tonsillar exudate. Has pain mostly on the right maxillary and frontal sinuses. Minimal pain on the left maxillary sinus. Eyes: Conjunctivae are normal. Pupils are equal, round, and reactive to light. Neck: Neck supple. Cardiovascular: Normal rate, regular rhythm and normal heart sounds. Pulses are strong and palpable.Capillary refill: takes less than 3 seconds, Pulmonary/Chest: Effort normal and breath sounds normal. There is normal air entry. No stridor. No respiratory distress. Air movement is not decreased. She has no wheezes. She has no rhonchi. She has no rales. Abdominal: Soft. Musculoskeletal: General: Normal range of motion. Cervical back: Normal range of motion and neck supple. Lymphadenopathy: She has no cervical adenopathy. Neurological: Alert and oriented to person, place, and time. Skin: Skin is warm, dry and intact. Psychiatric: She has a normal mood and affect. ED COURSE: ED Course as of Jan 10 2223 Sun Jan 10, 20212113 I performed my initial evaluation of the patient. We discussed Emergency Department course including testing, treatment, and potential disposition based on findings. Final Diagnoses: as of Jan 10 2223 Sinusitis Acute Maxillary Infection Upper Respiratory INTERVENTIONS: Medications - No data to display ASSESSMENT / PLAN IMPRESSION AND PLAN Presents to the emergency department with complaints of sinus type symptoms, frequent sinus infections and has had 2 sinus surgeries. Patient denies any fever, chills, sweats or other constitutional symptoms. Also having postnasal drip and a cough. Feels like her asthma is flaring up. Exam was reassuring, lungs are clear however she does have significant pain on the right side both frontal and maxillary sinuses to palpation. Symptoms roughly 5 days. A differential diagnosis would include but not limited to, but was not limited to pneumonia, viral infection, common cold, viral pharyngitis, strep pharyngitis, tonsillitis, influenza, sinusitis, bronchitis, otitis media, otitis externa, serous otitis. Pt's symptoms are consistent with Sinusitis. No evidence for more malignant etiology at this time. Plan includes symptomatic treatment with OTC robitussin and abx azithromycin and treat as an outpatient. Patient was given red flag signs & symptoms that would require immediate followup or return to the ED. I reviewed previous medical records including documentation from previous visits. DIAGNOSIS: Final diagnoses: [J01.00] Sinusitis Acute Maxillary [J06.9] Infection Upper Respiratory ED DISCHARGE MEDS: ED Prescriptions Medication Sig Dispense Start Date End Date Auth. Provider azithromycin (ZITHROMAX) 250 mg tablet Take 1 tablet (250 mg total) by mouth daily. Take 2 tablets (500 mg) on day 1, followed by 1 tablet (250 mg) daily for 4 days. 6 tablet 01/10/2021 Vaughn Lynch, C.N.P. DISPOSITION: Home or Self Care DISCHARGE VITAL SIGNS: Vitals: 01/10/212052 BP: 109/70 Pulse: 110 Resp: 18 Temp: 36.4 ??C SpO2: 98% FOLLOW UP: Contact Information for Follow-ups Selena Cordoba M.D. Specialty: Family Medicine Relationship: PCP - General [address] [place] [phone] Next Steps: Follow up Instructions: As needed Vaughn Lynch, DNP, BARREL CUTTER, STAFF TRAINER-C, AGACNP-BC, ENP-C Emergency Medicine Vaughn Lynch, C.N.P. 01/10/212223 Jazmyne De La Fuente R.N. - 01/10/2021 8:59 PM CDT Pt presents to ED with sinus congestion and cough. Pt reports negative COVID test on Monday (test performed for surgery - cholecystectomy). Pt reports sore throat on Monday evening followed by nasal congestion and cough. Pt reports large amount of thick clear drainage from nose. Jazmyne De La Fuente R.N. 01/10/212101 documented in this encounter Plan of Treatment Not on filedocumented as of this encounter Visit Diagnoses Diagnosis Sinusitis Acute Maxillary - Primary Infection Upper Respiratory documented in this encounter Additional Health Concerns Assessment Noted Time PHQ-9 Depression Total Score: 17 07/13/2020 3:09 PM CD T documented as of this encounter
--- OUTSIDE RECORDS SUMMARY | 2022-03-16 15:02 | XMS_ITS | Encounter Summary ---
:1980 Author Organization [facility] Address [address] [place] [address] Care Team Providers Name Role Phone Unavailable Primary Care Provider Unavailable Reason for Referral Outpatient (Routine) - Closed Specialty Diagnoses / Procedures Referred By Contact Refer red To Contact Obstetrics and Ben [facility]off M.D. [facility] Gynecology [address], [address] [address] Referral ID Status Reason Start Date Expiration Date Visits Requ ested Visits Authorized [id number] Closed 10/26/2020 10/26/2021 1 1 Reason for Visit Reason Comments Results headaches Outpatient (Routine) - Closed Specialty Diagnoses / Procedures Referred By Contact Refer red To Contact Obstetrics Ben Solis M.D. [facility] Gynecology [address], [address] [address] Referral ID Status Reason Start Date Expiration Date Visits Requ ested Visits Authorized [id number] Closed 10/25/2020 10/25/2021 1 1 Encounter Details Date Type Department Care Team Description 10/26/2020 Office Visit Department of Ben Goff M .D. Amenorrhea (Primary Obstetrics and [address], Dx) Gynecology in [address] [place] [address] [place] [address] Social History Tobacco Use Types Packs/Day Years Used Date Smoking Tobacco: Every Day Cigarettes 0.5 S tarted: 2007 Smokeless Tobacco: Never Tobacco Cessation: Ready to Quit: No; Co unseling Given: Yes Alcohol Use Standard Drinks/Week Comments Not Currently [...] Sign Reading Time Taken Comments Blood Pressure 108/68 10/26/2020 2:20 PM CDT Pulse - - Temperature - - Respiratory Rate - - Oxygen Saturation - - Inhaled Oxygen Concentration - - Weight 95.8 kg (211 lb 3.2 oz) 10/26/2020 2:20 PM CDT Height - - Body Mass Index 38.63 10/24/2020 11:36 PM CDT documented in this encounter Consult Notes Ben Goff M.D. - 10/26/2020 3:00 PM CDT Gynecology consultation S: Patient is a 40-year-old female with a last menstrual of late September 2020. She has cycles typicallyevery 4-6 weeks with a 5 day moderate flow. She has had no bleeding or spotting since her last. She has no pain. She has a moderate amount of nausea with rare emesis. Of note the patient has had an ectopic in the past that was treated in 2012 with methotrexate. This was performed at [facility]. She has had serial quantitative beta HCG values with a value on: October 22--October 24October 26. Blood type O positive Patient underwent an ultrasound on October 26 with the suggestion of gestational sac. Though no fetalpole or cardiac activity is seen due to an very early gestation. There is no evidence of adnexal mass/ectopic. No free fluid noted. I have discussed at length the patient of her early gestational age and to early on ultrasound for afindings of gestational sac/ pole/ heart rate. Recommend repeat quantitative hCG in 1 week. Then repeat quantitative beta HCG and ultrasound in 2 weeks followed by return to clinic to review. Approximately 30 minutes were spent in patient discussion review all in direct umyx-ci-[id number] discussion. documented in this encounter Plan of Treatment Scheduled Referrals Name Type Priority Associated Order Schedule Diagnoses Obstetrics and Outpatient Referral Routine Expect ed: Gynecology office 11/09/2020 visit (clinic) (Approximate) , Expires: 10/27/2023 documented as of this encounter Results US OB First Trimester and Transvaginal (11/09/2020 9:19 AM CDT) Anatomical Region Laterality Modality Body, Ultrasound OB RST LOS, Ultrasound ARZ LOS N/A Ultrasound Specimen (Source) Anatomical Collection Method Collection Time Re ceived Time Location / / Volume Laterality 11/09/2020 9:40 AM CDT Impressions 11/09/2020 9:44 AM CDT Single living intra-uterine wi th dating per full report. Narrative 11/09/2020 9:44 AM CDT EXAM: US OB FIRST TRIMESTER AND TRANSVAGINAL COMPARISON: 10/26/2020 TECHNIQUE: Transabdominal Only FINDINGS: Number of Gestations: Single Gestational age and ALEXANDER by LMP or OB/EHR assignment: 8 w 1 d, ALEXANDER: 06/20/2021 INTRAUTERINE Pole: Normal, [place] Length: 0 .99 cm Gestational Sac: Normal Yolk Sac: Normal Placenta Location: Too Early to ID Age and ALEXANDER by current ultrasound measur ements: 7 w 1 d, ALEXANDER: 06/27/2021. heart rate: 125 Uterus: No unexpected findings. Right Ovary/Adnexa: Unremarkable Left Ovary/Adnexa: Unremarkable Cervical Length: Subjectively normal by Transabd evaluation only Intraperitoneal Fluid: None. Procedure Note Jose Diaz M.D. - 11/09/2020Formatt ing of this note might be different from the original. EXAM: US OB FIRST TRIMESTER AND TRANSVAG INAL COMPARISON: 10/26/2020 TECHNIQUE: Transabdominal Only FINDINGS: Number of Gestations: Single Gestational age and ALEXANDER by LMP or OB/EHR assignment: 8 w 1 d, ALEXANDER: 06/20/2021 INTRAUTERINE Pole: Normal, [place] Length: 0 .99 cm Gestational Sac: Normal Yolk Sac: Normal Placenta Location: Too Early to ID Age and ALEXANDER by current ultrasound measur ements: 7 w 1 d, ALEXANDER: 06/27/2021. heart rate: 125 Uterus: No unexpected findings. Right Ovary/Adnexa: Unremarkable Left Ovary/Adnexa: Unremarkable Cervical Length: Subjectively normal by Transabd evaluation only Intraperitoneal Fluid: None. IMPRESSION: Single living intra-uterine wi th dating per full report. Ben Goff M.D. IM[facility]ana OB US PROCEDURES (ABNORMAL) hCG (Human Chorionic Gonadotropin), Quantitative, (11/09/2020 9:00 AM CDT) Analysis Performed At [facility] Time Signature HCG, [address] (H) <5 IU/L 11/09/2020 [facility] Quantitative, 10:03 AM CDT , P Comment: Biotin has been [facility] a potential interfering substance. ??Higher concentr ations of biotin may be found in multivitamins, hair/nail supple ments, and workout supplements. ??If the result does not ma tc clinical observations, repeat testing after patient refrains fr om the use of supplements for at least 12 hours. Specimen Anatomical Collection Method Collection Time Receive d Time (Source) Location / / Volume Laterality Blood (Blood, 11/09/2020 9:00 AM 11/10/19 9:03 Venous) CDT AM CDT Ben Goff M.D. LAB BLOOD ADD-ON Performing Organization Address City/[facility]/ZIP [facility] Phon e Number [facility]- [address] [place], [place] [address] [facility] [place] [address] System in [place] [address] [place] [address] (ABNORMAL) hCG (Human Chorionic Gonadotropin), Quantitative, (11/02/2020 4:39 PM CDT) Analysis Performed At Patho logist Time Signature HCG, [address] (H) <5 IU/L 11/02/2020 [facility] Quantitative, 6:16 PM CDT , P Comment: Biotin has been identified by the [facility] as a potential interfering substance. ??Higher concentr ations of biotin may be found in multivitamins, hair/nail supple ments, and workout supplements. ??If the result does not ma tc clinical observations, repeat testing after patient refrains fr om the use of supplements for at least 12 hours. Specimen Anatomical Collection Method Collection Time Receive d Time (Source) Location / / Volume Laterality Blood (Blood, 11/02/2020 4:39 PM 11/03/19 4:40 Venous) CDT PM CDT Ben Goff M.D. LAB BLOOD ADD-ON Performing Organization Address City/State/[facility] Code Phon e Number [address] [address] [place] [address] System [address] documented in this encounter Visit Diagnoses Diagnosis Amenorrhea - Primary Amenorrhea documented in this encounter Additional Health Concerns Assessment Noted Time PHQ-9 Depression Total Score: 17 07/13/2020 3:09 PM CD T documented as of this encounter
--- OUTSIDE RECORDS SUMMARY | 2022-03-16 15:02 | XMS_ITS | Encounter Summary ---
:1980 Author Organization [facility] Address [address] [place] [address] Care Team Providers Name Role Phone Unavailable Primary Care Provider Unavailable Encounter Details Date Type Department Care Team Description 11/09/2020 Hospital Encounter Department of Radiology [facility] [address], [address] [place] [address] [place] [address] [phone] (Wo rk) Social History Tobacco Use Types [...] place to sleep or slept in a correction (including now)? Education Answer Date Recorded What is the highest level of school you have Some college, n o degree 11/17/2019 completed or the highest degree you have received? Sex Assigned at Date Recorded Not on file documented as of this encounter Medications at Time of Discharge Medication Sig Dispensed Refills Start Date End Date acetaminophen (TYLENOL) Take 650 mg by mouth 0 325 mg tablet every 4 (four) hours as needed for pain. cholecalciferol, vitamin Take 1,000 Units by 0 [...] BY MOUTH DAILY Take 1 tablet by 30 tablet 0 10/21/2020 11/19/19 21 [id number] mouth daily. (VINATE ONE) 60 mg iron-1 [...] and patches documented as of this encounter Plan of Treatment Not on filedocumented as of this encounter Procedures Procedure Name Priority Date/Time Associated Comments Diagnosis US OB FIRST RAD - Routine 11/09/2020 9:19 Amenorrhea Results for this TRIMESTER AND (most inpatients AM CDT procedure are in TRANSVAGINAL and all the results outpatients) section. documented in this encounter Results US OB First Trimester [...] 1 d, ALEXANDER: 06/20/2021 INTRAUTERINE Pole: Normal, [place] Length: 0 .99 cm Gestational Sac: Normal [...] 1 d, ALEXANDER: 06/20/2021 INTRAUTERINE Pole: Normal, [place] Length: 0 .99 cm Gestational Sac: Normal [...] Ben Goff M.D. [facility] OB US PROCEDURES documented in this encounter Visit Diagnoses Diagnosis Amenorrhea documented in this encounter Additional Health Concerns Assessment Noted Time PHQ-9 Depression Total Score: 17 07/13/2020 3:09 PM CD T documented as of this encounter
--- OUTSIDE RECORDS SUMMARY | 2022-03-16 15:02 | XMS_ITS | Encounter Summary ---
:1980 Author Organization [facility] Address [address] [place] [address] Care Team Providers Name Role Phone Unavailable Primary Care Provider Unavailable Encounter Details Date Type Department Care Team Description 10/22/2020 Orders Only [facility] [place] Amenorrhea (Primary Obstetrics and [address], Dx) Gynecology in [address] [place] [address] [place] [address] Social History Tobacco Use Types Packs/Day Years Used Date Smoking Tobacco: Every Day Cigarettes 0.5 S tarted: 2007 Smokeless Tobacco: Never Alcohol Use Standard Drinks/Week Comments Not Currently [...] or relatives? How often do you attend religious or More than 4 times per year 11/09/2020 sabianism services? Do you belong to any clubs or No 11/09/2020 organizations such as religious groups, unions, fraternal or athletic groups, or [...] to pay for the very basics like PVPowerw hat hard 11/09/2020 food, housing, medical care, [...] on filedocumented as of this encounter Results (ABNORMAL) hCG (Human Chorionic Gonadotropin), Quantitative, (10/24/2020 11:57 AM CDT) athologist Signature HCG, 905 (H) <5 IU/L 10/24/2020 [facility] Quantitative, 12:27 PM CDT , P Comment: Biotin has been identified by the [facility] as a potential interfering substance. ??Higher concentr ations of biotin may be found in multivitamins, hair/nail supple ments, and workout supplements. ??If the result does not ma [facility] clinical observations, repeat testing after patient refrains fr om the use of supplements for at least 12 hours. Specimen Anatomical Collection Method Collection Time Receive d Time (Source) Location / / Volume Laterality Blood (Blood, 10/24/2020 11:57 10/24/2020 Venous) AM CDT 11:58 AM CDT Ben Goff M.D. LAB BLOOD ADD-ON Performing Organization Address City/State/ZIP Code Phon e Number [facility]- [address] [place] [address] [address] [place] [address] System in [place] [address] ABORh, RBC (10/22/2020 12:06 PM CDT) athologist Signature ABO Group O 10/22/2020 1:00 [facility] PM CDT Rh Type POS 10/22/2020 1:00 [facility] PM CDT Specimen Anatomical Collection Method Collection Time Receive d Time (Source) Location / / Volume Laterality Blood (Blood, 10/22/2020 12:06 10/22/2020 Venous) PM CDT 12:08 PM CDT Ben Goff M.D. LAB BLOOD BANK TEST ORDERABL ES Performing Organization Address City/State/ZIP Code Phon e Number [facility]- [address] [place], [place] [address] [facility] [place] [address] System in [place] [address] (ABNORMAL) hCG (Human Chorionic Gonadotropin), Quantitative, (10/22/2020 12:06 PM CDT) athologist Signature HCG, 453 (H) <5 IU/L 10/22/2020 [facility] Quantitative, 12:30 PM CDT , P Comment: Biotin has been identified by the [facility] as a potential interfering substance. ??Higher concentr ations of biotin may be found in multivitamins, hair/nail supple ments, and workout supplements. ??If the result does not ma [facility] clinical observations, repeat testing after patient refrains fr om the use of supplements for at least 12 hours. Specimen Anatomical Collection Method Collection Time Receive d Time (Source) Location / / Volume Laterality Blood (Blood, 10/22/2020 12:06 10/22/2020 Venous) PM CDT 12:08 PM CDT Ben Goff M.D. LAB BLOOD ADD-ON Performing Organization Address City/State/ZIP Code Phon e Number [facility]- [address] [place], [place] [address] [address] [facility] [place] [place] [address] System in [place] [address] documented in this encounter Visit Diagnoses Diagnosis Amenorrhea - Primary documented in this encounter Additional Health Concerns Assessment Noted Time PHQ-9 Depression Total Score: 17 07/13/2020 3:09 PM CD T documented as of this encounter
--- OUTSIDE RECORDS SUMMARY | 2022-03-16 15:02 | XMS_ITS | Encounter Summary ---
:1980 Author Organization [facility] Address [address] [place] [address] Care Team Providers Name Role Phone Unavailable Primary Care Provider Unavailable Encounter Details Date Type Department Care Team Description 11/09/2020 Orders Only [facility] Pharmacy Sharita [place] Pharm.D., R.Ph. [address] [address] [place], [place] [phone] [address] (Wo rk) Social History Tobacco Use Types [...] or relatives? How often do you attend denominational or More than 4 times per year 11/09/2020 nondenominational services? Do you belong to any clubs or No 11/09/2020 organizations such as denominational groups, unions, fraternal or athletic groups, or [...]
--- OUTSIDE RECORDS SUMMARY | 2022-03-16 15:02 | XMS_ITS | Encounter Summary ---
:1980 Author Organization [facility] Address [address] [place] [address] Care Team Providers Name Role Phone Unavailable Primary Care Provider Unavailable Reason for Visit Reason Comments Medication Question Encounter Details Date Type Department Care Team Description 11/09/2020 Clinical Communication [facility] [place], Medic ation Question Pharmacy Yaniv Diaz Pharm.D., [address] [place] [address].[address] [address] [place] [id number] Social History Tobacco Use Types Packs/Day Years [...] How often do you attend judaism or More than 4 times per year 11/09/2020 islam services? Do you belong to any clubs or No 11/09/2020 organizations such as judaism groups, unions, fraternal [...] this encounter Miscellaneous Notes Telephone Encounter - Micheline Hancock Pharm.D., R.Ph. - 11/10/2020 9:09 AM CDT I agree with you. I will share that thought with Dulce and have her reach out to you directly if she has questions or her allergies are unmanageable. Thank you, [facility] Telephone Encounter - Micheline Hancock Pharm.D., R.Ph. - 11/09/2020 4:56 PM CDT Dulce was asking to fill cetirizine today, but I see that it was deactivated during her appointment today. Can you please clarify if she is allowed to continue it and can you consider sending a new prescription so her insurance will cover it? Thank you, [facility] documented in this encounter Plan of Treatment Not on filedocumented as of this encounter Visit Diagnoses Not on filedocumented in this encounter Additional Health Concerns Assessment Noted Time PHQ-9 Depression Total Score: 17 07/13/2020 3:09 PM CD T documented as of this encounter
--- OUTSIDE RECORDS SUMMARY | 2022-03-16 15:02 | XMS_ITS | Encounter Summary ---
:1980 Author Organization [facility] Address [address] [place] [address] Care Team Providers Name Role Phone Elsewhere, Pcp Primary Care Provider Unavailable Encounter Details Date Type Department Care Team Description 11/19/2020 Orders Only [facility] Jhonatan sanchez, Yaniv Hannon, C.N.M. [address] [place], [place] [address] [place] [address] [phone] (Wo rk) Social History Tobacco Use Types [...] place to sleep or slept in a care home (including now)? Education Answer Date Recorded [...] documented as of this encounter Care Teams Special Education Resource Room Teacher Relationship Specialty Start Date End Date Elsewhere, Pcp PCP - General Internal Medicine 08/31/21 documented as of this encounter
--- OUTSIDE RECORDS SUMMARY | 2022-03-16 15:02 | XMS_ITS | Encounter Summary ---
:1980 Author Organization [facility] Address [address] [place] [address] Care Team Providers Name Role Phone Unavailable Primary Care Provider Unavailable Reason for Visit Reason Comments Migraine migraine since this morning -took Tylenol and anti-nausea with no relief Encounter Details Date Type Department Care Team Description 10/24/2020 - Emergency [place] Jose Melissa, Headache U nspecified 10/25/2020 Emergency Department P.A.-C. (Primary Dx) [address] [address] [place], [place] [phone] Social History Tobacco Use Types Packs/Day [...] or relatives? How often do you attend sikh or More than 4 times per year 11/09/2020 roman catholic services? Do you belong to any clubs or No 11/09/2020 organizations such as sikh groups, unions, fraternal or athletic groups, or [...] Sign Reading Time Taken Comments Blood Pressure 104/67 10/25/2020 12:01 AM CDT Pulse 87 10/25/2020 12:01 AM CDT Temperature 36.3 ??C (97.3 ??F) 10/24/2020 11:37 PM CDT Respiratory Rate 18 10/24/2020 11:37 PM CDT Oxygen Saturation 99% 10/25/2020 12:01 AM CDT Inhaled Oxygen Concentration - - Weight 95.3 kg (210 lb 1.6 oz) 10/24/2020 11:36 PM CDT Height 157.5 cm (5' 2) 10/24/2020 11:36 PM CDT Body Mass Index 38.43 10/24/2020 11:36 PM CDT documented in this encounter Discharge Instructions AttachmentsThe following attachments cannot be sent through Care Everywhere. Recurrent Migraine Headache (Brazilian)documented in this encounter Medications at Time of Discharge Medication Sig Dispensed Refills Start Date End Date acetaminophen (TYLENOL) Take 650 mg by 0 325 mg tablet mouth every 4 (four) hours as needed for pain. cetirizine (ZyrTEC) 10 mg Take 10 mg by mouth 0 0 09/16/2020 11/01/2020 tablet daily. cholecalciferol, vitamin Take 1,000 Units by 0 07/20/2021 D3, (cholecalciferol) mouth daily. 1,000 Unit tablet doxylamine 25 mg tablet Take 0.5 tablets 30 tablet 0 202006/28/2021 (12.5 mg total) by mouth 2 (two) times a day as needed for nausea. DULoxetine (CYMBALTA) 30 Take 1 capsule (30 30 capsule 3 11/202008/31/[address] capsule mg total) by mouth daily. Dose reduction 10/22/20. hydrocortisone Insert 1 30 g 0 10/22/2020 11/09/2020 (ANUSOL-HC) 2.5 % rectal application into cream the rectum 2 (two) times a day as needed for hemorrhoids (rectal discomfort). Apply to affected areas nicotine (NICODERM CQ) 21 Place 1 patch on 28 patch 2 11/202011/09/2020 mg/24 hr patch the skin daily. PARoxetine (PAXIL) 10 mg TAKE ONE-HALF 15 tablet 0 10/07/19 21 01/05/2022 tablet TABLET BY MOUTH DAILY Take 1 tablet by 30 tablet 0 10/21/2020 11/19/19 21 [id number]-[id number] mouth daily. (VINATE ONE) 60 mg iron-1 mg per tablet prochlorperazine Take 1 tablet (10 20 tablet 2 07/13/2020 0 11/09/2020 (COMPAZINE) 10 mg tablet mg total) by mouth every 6 (six) hours as needed for nausea. MAX 9 days/month. psyllium seed, with Take by mouth 0 dextrose, (FIBER ORAL) daily. pyridoxine, vitamin B6, Take 1 tablet (50 30 tablet 0 10/2106/28/2021 (vitamin B-6) 50 mg mg total) by mouth tablet daily. UNABLE TO FIND Med Name: Thrive, 0 vitamins, shakes, and patches documented as of this encounter ED Notes Jose Melissa P.A.-C. - 10/25/2020 12:04 AM CDT SUBJECTIVE CHIEF COMPLAINT/REASON FOR VISIT Migraine (migraine since this morning -took Tylenol and anti-nausea with no relief) HISTORY OF PRESENT ILLNESS 40-year-old female approximately 6 weeks presents ER with complaints of migraine headache. Patient states she suffers from migraine headaches quite frequently and they typically have respondedwell to Toradol, Benadryl, and Phenergan. Patient states that she has tried to take Tylenol without any relief. She denies this being the worst headache of her life, or any recent illness. She has not found anything else in particular seems to make the symptoms better or worse. REVIEW OF SYSTEMS Constitutional: Negative for appetite [...] Negative for rash. Neurological: Positive for headaches. Hematological: Negative for adenopathy. OBJECTIVE Initial Vitals Temperature Pulse Rate Heart Rate Resp Rate Blood Pressure SpO2 10/24/20 2337 10/24/20 2337 -- 10/24/20 2337 10/24/20 2337 10/24/202336 36.3 ??C 86 18 103/69 98 % Pain Score 10/24/20 2335 7 PHYSICAL EXAMINATION Constitutional: Nursing note and [...] sensation, normal strength and intact cranial nerves. Displays normal reflexes. GCS eye subscore is 4. GCS verbal subscore is5. GCS motor subscore is 6. Normal speech. Skin: Skin is warm. ASSESSMENT/PLAN IMPRESSION AND PLAN Patient states feeling improved after treatment in the ER. She is well established OB in follow-up with the same. She return to the ER if new symptoms develop, current symptoms worsen, symptoms fail toimprove, patient becomes concerned. Based on history and physical exam there is no evidence demise, infection, or concerns to the . Patient is discharged in good condition with return ERwarnings given. I reviewed previous medical records including documentation from previous visits. Final Diagnoses: as of Oct 25 654 Headache Unspecified Jose Melissa P.A.-C. 10/25/20654 Shelton Archibald R.N. - 10/24/2020 11:44 PM CDT 40 year old presents to the ED via private vehicle with a migraine, nausea and light sensitivity that started this morning. Patient reports she took Tylenol and doxylamine at 1900 with minimal relief. Patient also reports she is with ALEXANDER 06/19/2021. Shelton Archibald R.N. 10/24/20 2346 Shelton Archibald R.N. 10/24/202350 documented in this encounter Plan of Treatment Not on filedocumented as of this encounter Visit Diagnoses Diagnosis Headache Unspecified - Primary documented in this encounter Administered Medications Inactive Administered Medications - up to 3 most recent administrations Medication Order MAR Action Action Date Dose Rate Site acetaminophen tablet 1,000 mg Given 10/24/2020 11:57 PM CDT 1,00 0 mg (TYLENOL) 1,000 mg, oral, Once, On 10/24/20 at 2352, For 1 dose diphenhydrAMINE injection 50 Given 10/24/2020 11:57 PM CDT 50 mg Right Dorsogluteal mg (BENADRYL) 50 mg, intramuscular, Once, On 10/24/20 at 2352, For 1 dose promethazine injection 12.5 Given 10/24/2020 11:57 PM 12.5 mg Right Dorsogluteal mg (PHENERGAN) CDT 12.5 mg, intramuscular, Once, On 10/24/20 at 2352, For 1 dose documented in this encounter Active and Recently Administered Medications Times are shown in CDT. Scheduled Medication Order 10/23/2020 10/24/2020 10/25/2020 acetaminophen tablet 1,000 mg (TYLENOL) (COMPLETED) 2356 (Given - Provider: Shelton Archibald R.N.) 1,000 mg, oral, Once, On 10/24/20 at 2352, For 1 dose diphenhydrAMINE injection 50 mg (BENADRYL) (COMPLETED) 2356 (Given - Provider: Shelton Archibald R.N.) 50 mg, intramuscular, Once, On 10/24/20 at 2352, For 1 dose promethazine injection 12.5 mg (PHENERGAN) (COMPLETED) 2356 (Given - Provider: Shelton Archibald R.N.) 12.5 mg, intramuscular, Once, On 10/24/20 at 2352, For 1 dose documented in this encounter Additional Health Concerns Assessment Noted Time PHQ-9 Depression Total Score: 17 07/13/2020 3:09 PM CD T documented as of this encounter
--- OUTSIDE RECORDS SUMMARY | 2022-03-16 15:02 | XMS_ITS | Encounter Summary ---
:1980 Author Organization [facility] Address [address] [place] [address] Care Team Providers Name Role Phone Unavailable Primary Care Provider Unavailable Reason for Visit Reason Comments medication questions Encounter Details Date Type Department Care Team Description 10/22/2020 Office Visit Department of Family Jonnie Montano, Hem orrhoids In First Trimester (Primary Dx); MedicineJacinto M.D. Nicotine Dependence Cigarettes; Clinic, [facility] [address]; [facility] Depressive Disorder [address] [place] [address] [place] [phone] (Wo rk) [address] [phone] Social History Tobacco Use Types Packs/Day Years Used Date Smoking Tobacco: Every Day Cigarettes 0.5 S tarted: 2008 Smokeless Tobacco: Never Tobacco Cessation: Ready to Quit: Yes Alcohol Use Standard Drinks/Week Comments Not [...] How often do you attend episcopalian or More than 4 times per year 11/09/2020 scientologist services? Do you belong to any clubs or No 11/09/2020 organizations such as episcopalian groups, unions, fraternal [...] place to sleep or slept in a long-term (including now)? Education Answer Date Recorded What is the highest level of school you have Some college, n o degree 11/17/2019 completed or the highest degree you have received? Sex Assigned at Date Recorded Not on file documented as of this encounter Last Filed Vital Signs Vital Sign Reading Time Taken Comments Blood Pressure 105/71 10/22/2020 10:11 AM CDT Pulse 82 10/22/2020 10:11 AM CDT Temperature 36.9 ??C (98.4 ??F) 10/22/2020 10:11 AM CDT Respiratory Rate - - Oxygen Saturation 98% 10/22/2020 10:11 AM CDT Inhaled Oxygen Concentration - - Weight 93 kg (205 lb 0.4 oz) 10/22/2020 10:11 AM CDT Height - - Body Mass Index 37.25 07/08/2020 9:36 AM CDT documented in this encounter Patient Instructions Patient InstructionsJonnie Montano M.D. - 10/22/2020 10:30 AM CDT 1. Please soak in an Epsom Salts bath for 10-15 minutes twice daily 2. The [facility] handout on hemorrhoids contains additional helpful information 3. The Anusol HC cream will help reduce inflammation and pain from your hemorrhoids documented in this encounter Progress Notes Jonnie Montano M.D. - 10/22/2020 10:30 AM CDT CHIEF COMPLAINT / REASON FOR VISIT Dulce Lie is a 40 y.o. female presenting today for evaluation of medication questions HISTORY OF PRESENT ILLNESS 1. About 5 weeks, no spotting, will be seeing provider in [place] (lives in [place]). (1 ectopic, 1 miscarriage). Blood work scheduled for today. 2. Tobacco abuse Smoking 0.5-1 PPD, interested in quitting. Discussed options. 3. Hemorrhoids More painful and bleeding x 3 days. Takes OTC fiber. No Epsom salts baths yet. Tried Tucks, Preparation H. Hasn't done any steroid creams yet. 4. Depression and anxiety Cymbalta is taken for anxiety. Unsure how much it is helping. Pt sees Psychiatrist, Dr. Burnette in [place]. MEDICATIONS Current Outpatient Medications Medication Sig Dispense Refill ??? cetirizine (ZyrTEC) 10 mg tablet Take 10 mg by mouth daily. ??? cholecalciferol, vitamin D3, (cholecalciferol) 1,000 Unit tablet Take 1,000 Units by mouth daily. ??? doxylamine 25 mg tablet Take 0.5 tablets (12.5 mg total) by mouth 2 (two) times a day as needed for nausea. 30 tablet 0 ??? DULoxetine (CYMBALTA) [address] capsule Take 1 capsule (30 mg total) by mouth daily. Dose reduction 10/22/20. 30 capsule 3 ??? [id number]-[id number]-cdki-FA (VINATE ONE) 60 mg iron-1 mg per tablet Take 1 tablet by mouth daily. 30 tablet 0 ??? psyllium seed, with dextrose, (FIBER ORAL) Take by mouth daily. ??? pyridoxine, vitamin B6, (vitamin B-6) 50 mg tablet Take 1 tablet (50 mg total) by mouth daily. 30 tablet 0 ??? UNABLE TO FIND Med Name: Thrive, vitamins, shakes, and patches ??? hydrocortisone (ANUSOL-HC) 2.5 % rectal cream Insert 1 application into the rectum 2 (two) timesa day as needed for hemorrhoids (rectal discomfort). Apply to affected areas 30 g 0 ??? nicotine (NICODERM CQ) 21 mg/[address] 1 patch on the skin daily. 28 patch 2 ??? prochlorperazine (COMPAZINE) 10 mg tablet Take 1 tablet (10 mg total) by mouth every 6 (six) hours as needed for nausea. MAX 9 days/month. (Patient not taking: Reported on 10/22/2020 ) 20 tablet 2 No current facility-administered medications for this visit. ALLERGIES Allergies Allergen Reactions ??? Quinolones Other (see comments) QUINOLONES - Cipro; vomiting ??? Amoxicillin-Pot Clavulanate GI intolerance ??? Ciprofloxacin Other (see comments) ??? Silicone Other (see comments) MEDICAL/SURGICAL HISTORY Past Medical History: Diagnosis Date ??? Asthma (HCC) Past Surgical History: Procedure Laterality Date ??? [...] brostrom repair; Surgeon: Alexsander Marshall M.D.; Location: [facility] OR ??? TONSILLECTOMY AND ADENOIDECTOMY N/A 04/17/1994 Tonsillectomy with adenoidectomy FAMILY HISTORY Family History Problem Relation Age of Onset ??? MEDRANO - Headache Father ??? Hypertension Father ??? Asthma Sister ??? Diabetes Mother ??? Liver Mother Liver failure ??? Cataracts Neg Hx ??? Glaucoma Neg Hx ??? Macular degeneration Neg Hx ??? Anesthesia problems Neg Hx SOCIAL Social History Tobacco Use ??? Smoking status: Current Every Day Smoker Packs/day: 0.50 Types: Cigarettes Start date: 2007 ??? Smokeless tobacco: Never Used Substance Use Topics ??? Alcohol use: Not Currently Comment: occasional PHYSICAL EXAM Physical Exam Blood pressure 105/71, pulse 82, temperature 36.9 ??C, temperature source Temporal, weight 93 kg, SpO2 98 %. Body mass index is 37.25 kg/m??. General: Pleasant, NAD Rectum: 12:00 and 6:00 small external hemorrhoids, 6:00 position more tender ASSESSMENT / PLAN #1 Hemorrhoids In First Trimester #2 Nicotine Dependence Cigarettes #3 Anxiety #4 Depressive Disorder Other orders - DULoxetine (CYMBALTA) [address] capsule; Take 1 capsule (30 mg total) by mouth daily. Dose reduction 10/22/20., Starting Roxie 10/22/2020, Normal - nicotine (NICODERM CQ) 21 mg/24 hr patch; Place 1 patch on the skin daily., Starting Roxie 10/22/2020,Normal - hydrocortisone (ANUSOL-HC) 2.5 % rectal cream; Insert 1 application into the rectum 2 (two) times a day as needed for hemorrhoids (rectal discomfort). Apply to affected areas, Starting Roxie 10/22/2020, Normal Reviewed medication list and updated as pt had already made some changes. Reviewed category of Cymbalta and together we agreed she will continue for now but reduce dose to 30 mg daily. We didbriefly discuss alternatives that could be considered in the future (including Zoloft, Celexa, Lexapro, Prozac per MARY JANE). Her Psychiatrist is Dr. Burnette in [place]. Discussed nicotine replacement so she can achieve tobacco cessation, and she would like to proceed with the 21 mg patch. There is no indication for hemorrhoid thrombectomy today. She will proceed as listed above and below, and f/u prn. [facility] handout re: hemorrhoid care was provided. Questions answered, Dulce is comfortable with this plan. 30 minutes spent in chart review and face toface care today. Patient Instructions 1. Please soak in an Epsom Salts bath for 10-15 minutes twice daily 2. The [facility] handout on hemorrhoids contains additional helpful information 3. The Anusol HC cream will help reduce inflammation and pain from your hemorrhoids documented in this encounter Plan of Treatment Not on filedocumented as of this encounter Visit Diagnoses Diagnosis Hemorrhoids In First Trimester (HCC) - Primary Nicotine Dependence Cigarettes Anxiety Depressive Disorder documented in this encounter Additional Health Concerns Assessment Noted Time PHQ-9 Depression Total Score: 17 07/13/2020 3:09 PM CD T documented as of this encounter
--- OUTSIDE RECORDS SUMMARY | 2022-03-16 15:02 | XMS_ITS | Encounter Summary ---
:1980 Author Organization [facility] Address [address] [place] [address] Care Team Providers Name Role Phone Unavailable Primary Care Provider Unavailable Reason for Visit Reason Comments Headache migraine Encounter Details Date Type Department Care Team Description 12/06/2020 Emergency [place] [facility] Christopher Dunn M igraine Headache Department M.DLashawn (Primary Dx) [address] [place] [phone] [phone] Social History Tobacco Use Types Packs/Day Years [...] More than 4 times per year 11/09/2020 jewish services? Do you belong to any clubs [...] Sign Reading Time Taken Comments Blood Pressure 118/79 12/06/2020 5:00 PM CDT Pulse 82 12/06/2020 5:00 PM CDT Temperature 36.9 ??C (98.4 ??F) 12/06/2020 4:42 PM CDT Respiratory Rate 18 12/06/2020 4:42 PM CDT Oxygen Saturation 96% 12/06/2020 5:00 PM CDT Inhaled Oxygen Concentration - - Weight - - Height 157.5 cm (5' 2) 12/06/2020 4:44 PM CDT Body Mass Index - - documented in [...] by 100 tablet 11 11/18/2020 06/29/19 22 [id number]-Ky-hlji-FA mouth daily. (VINATE ONE) 60 mg iron-1 [...] documented as of this encounter ED Notes Christopher Dunn M.D. - 12/06/2020 5:12 PM CDT SUBJECTIVE CHIEF COMPLAINT/REASON FOR VISIT Headache (migraine) HISTORY OF PRESENT ILLNESS 40-year-old female presents to the Emergency Department complaining of migraine headache that started this a.m.. Patient has a long history of frequent migraine headaches. She currently is at 12 weeks gestation and his noted that she is having more frequent headaches with . She has been nauseous but has not vomited. She took Tylenol and Benadryl around 1:00 p.m. today without significant improvement. This does feel like 1 of her usual headaches. No visual disturbance. No paresthesias. REVIEW OF SYSTEMS Constitutional: Negative for chills and fever. HENT: Negative for ear pain and sore throat. Eyes: Negative for pain and visual disturbance. Respiratory: Negative for cough and shortness of breath. Cardiovascular: Negative for chest pain, palpitations and leg swelling. Gastrointestinal: Positive for nausea. Negative for abdominal pain, diarrhea and vomiting. Genitourinary: Negative for dysuria, flank pain and hematuria. Musculoskeletal: Negative for back pain and extremity pain. Skin: Negative for color change and rash. Neurological: Positive for headaches. Negative for weakness. Psychiatric/Behavioral: Negative for depression. The patient is not nervous/anxious. OBJECTIVE Initial Vitals Temperature Pulse Rate Heart Rate Resp Rate Blood Pressure SpO2 12/06/20 1642 12/06/20 1642 -- 12/06/20 1642 12/06/20 1642 12/06/20 1642 36.9 ??C 88 18 117/75 95 % Pain Score 12/06/20 1643 8 PHYSICAL EXAMINATION Constitutional: Nursing note and vitals reviewed. She appears distressed. HENT: Head: Atraumatic. Mouth/Throat: Mucous membranes are moist. Eyes: Conjunctivae and EOM are normal. Pupils are equal, round, and reactive to light. Neck: Neck supple. Pulmonary/Chest: Effort normal. No respiratory distress. Musculoskeletal: General: Normal range of motion. Cervical back: Normal range of motion and neck supple. Neurological: Alert and oriented to person, place, and time. She has normal reflexes. No cranial nerve deficit. She exhibits normal muscle tone. Coordination normal. Skin: Skin is warm and dry. Psychiatric: She has a normal mood and affect. Behavior is normal. Thought content normal. ASSESSMENT/PLAN IMPRESSION AND PLAN Vital signs are stable. She is normal tensive. She has no lower extremity edema. Plan is to treat with Tylenol 650 mg p.o.. Benadryl 50 mg Intramuscular and Phenergan 12.5 mg Intramuscular. Plan is to discharge to home. Hopefully she can sleep and headache will be improved upon awakening. Final Diagnoses: as of Dec 07 837 Migraine Headache Christopher Dunn M.D. 12/07/20 0840 Micheline Parra R.N. - 12/06/2020 4:44 PM CDT Patient presents to the ED with a migraine that started this morning. Patient says that she was seenin the ED last week also with a migraine. She reports that she is 12 weeks . Patient took Tylenol and Benadryl around 1300 this afternoon with no relief. Rachel Hunt R.N. 12/06/20 1646 Micheline Parra R.N. 12/06/20 1656 documented in this encounter Plan of Treatment Not on filedocumented as of this encounter Visit Diagnoses Diagnosis Migraine Headache - Primary documented in this encounter Administered Medications Inactive Administered Medications - up to 3 most recent administrations Medication Order MAR Action Action Date Dose Rate Site acetaminophen (TYLENOL) 325 mg tablet - ADS Override Pull Starting on 12/06/20 at 1702, For 1 dose, Created b y cabinet override acetaminophen tablet 650 mg (TYLENOL) Given 12/06/2020 5:10 PM CDT 650 mg 650 mg, oral, Once, On 12/06/20 at 1702, For 1 dose diphenhydrAMINE injection 50 Given 12/06/2020 5:05 PM CDT 50 mg Left Ventrogluteal mg (BENADRYL) 50 mg, intramuscular, Once, On 12/06/20 at 1700, For 1 dose promethazine injection 12.5 Given 12/06/2020 5:06 PM 12.5 mg Left Ventrogluteal mg (PHENERGAN) CDT 12.5 mg, intramuscular, Once, On 12/06/20 at 1700, For 1 dose documented in this encounter Active and Recently Administered Medications Times are shown in CDT. Scheduled Medication Order 12/04/2020 12/05/2020 12/06/2020 acetaminophen tablet 650 mg (TYLENOL) (COMPLETED) 1709 (Given - Provider: Sharla Wolf R.N.) 650 mg, oral, Once, On 12/06/20 at 1702, For 1 dose diphenhydrAMINE injection 50 mg (BENADRYL) (COMPLETED) 170 (Given - Provider: Sharla Wolf R.N.) 50 mg, intramuscular, Once, On 12/06/20 at 1700, For 1 dose promethazine injection 12.5 mg (PHENERGAN) (COMPLETED) 1705 (Given - Provider: Sharla Wolf R.N.) 12.5 mg, intramuscular, Once, On 12/06/20 at 1700, For 1 dose documented in this encounter Additional Health Concerns Assessment Noted Time PHQ-9 Depression Total Score: 17 07/13/2020 3:09 PM CD T documented as of this encounter
--- OUTSIDE RECORDS SUMMARY | 2022-03-16 15:02 | XMS_ITS | Encounter Summary ---
:1980 Author Organization [facility] Address [address] [place] [address] Care Team Providers Name Role Phone Unavailable Primary Care Provider Unavailable Reason for Referral Outpatient (Routine) - Closed Specialty Diagnoses / Procedures Referred By Contact Refer red To Contact Obstetrics and Ben Goff M.D. [facility] Region Gynecology [address], [address] [address] Referral ID Status Reason Start Date Expiration Date Visits Requ ested Visits Authorized [id number] Closed 10/25/2020 10/25/2021 1 1 Encounter Details Date Type Department Care Team Description 10/25/2020 Orders Only Department of Ben Goff M .D. Amenorrhea (Primary Obstetrics and [address], Dx) Gynecology in [address] [place] [address] [place] [address] Social History Tobacco Use Types [...] How often do you attend jew or More than 4 times per year 11/09/2020 jewish services? Do you belong to any clubs or No 11/09/2020 organizations such as jew groups, unions, fraternal [...] Outpatient Referral Routine Expect ed: Gynecology office 10/28/2020 visit (clinic) (Approximate) , Expires: 10/26/2023 documented as of this encounter Results US OB First Trimester and Transvaginal (10/26/2020 2:29 PM CDT) Anatomical Region Laterality Modality Body, Ultrasound OB RST LOS, Ultrasound ARZ LOS N/A Ultrasound Specimen (Source) Anatomical Collection Method Collection Time Re ceived Time Location / / Volume Laterality 10/26/2020 2:32 PM CDT Impressions 10/26/2020 2:39 PM CDT 4 mm cystic focus within the endometrium may represent an early gestational sac, but is indeterminate. N o additional identification of an intrauterine or ectopic. Clini laura correlate and recommend follow-up. Narrative 10/26/2020 2:39 PM CDT EXAM: US OB FIRST TRIMESTER AND TRANSVAGINAL COMPARISON: None TECHNIQUE: Transabdominal and Transvagin al FINDINGS: Number of Gestations: Single Gestational age and ALEXANDER by LMP or OB/EHR assignment: 6 w 1 d, ALEXANDER: 06/20/2021 INTRAUTERINE 4 x 4 by 3 mm anechoic focus within the endometrium. No evidence for pole or yolk sac. Uterus: No unexpected findings. Right Ovary/Adnexa: Normal. Left Ovary/Adnexa: Possible corpus luteu m. Cervical Length: Subjectively normal by Transabd evaluation only Intraperitoneal Fluid: None. Procedure Note Jose Diaz M.D. - 10/26/2020Formatt ing of this note might be different from the original. EXAM: US OB FIRST TRIMESTER AND TRANSVAG INAL COMPARISON: None TECHNIQUE: Transabdominal and Transvagin al FINDINGS: Number of Gestations: Single Gestational age and ALEXANDER by LMP or OB/EHR assignment: 6 w 1 d, ALEXANDER: 06/20/2021 INTRAUTERINE 4 x 4 by 3 mm anechoic focus within the endometrium. No evidence for pole or yolk sac. Uterus: No unexpected findings. Right Ovary/Adnexa: Normal. Left Ovary/Adnexa: Possible corpus luteu m. Cervical Length: Subjectively normal by Transabd evaluation only Intraperitoneal Fluid: None. IMPRESSION: 4 mm cystic focus within the endometrium may represent an early gestational sac, but is indeterminate. N o additional identification of an intrauterine or ectopic. Clini laura correlate and recommend follow-up. Ben Goff M.D. [facility] OB US PROCEDURES (ABNORMAL) hCG (Human Chorionic Gonadotropin), Quantitative, (10/26/2020 1:45 PM CDT) P athologist Signature HCG, 1980 (H) <5 IU/L 10/26/2020 [facility] Quantitative, 2:12 PM CDT , P Comment: Biotin has [...] Location / / Volume Laterality Blood (Blood, 10/26/2020 1:45 PM 10/27/19 1:48 Venous) CDT PM CDT Ben Goff M.D. LAB BLOOD ADD-ON Performing Organization Address City/State/ZIP Code Phon e Number [facility]- [address] [place], [place] [address] [place] [address] System in [place] [address] documented in this encounter Visit Diagnoses Diagnosis Amenorrhea - Primary Amenorrhea documented in this encounter Additional Health Concerns Assessment Noted Time PHQ-9 Depression Total Score: 17 07/13/2020 3:09 PM CD T documented as of this encounter
--- OUTSIDE RECORDS SUMMARY | 2022-03-16 15:02 | XMS_ITS | Encounter Summary ---
:1980 Author Organization [facility] Address [address] [place] [address] Care Team Providers Name Role Phone Unavailable Primary Care Provider Unavailable Encounter Details Date Type Department Care Team Description 11/02/2020 [facility] Am[facility] Laboratory Medicine in [address] , [place] [address] [address] [place], [place] [phone] (W ork) [address] [phone] Social History Tobacco Use Types Packs/Day Years [...] More than 4 times per year 11/09/2020 zoroastrianism services? Do you belong to any clubs [...] to pay for the very basics like [employer] hat hard 11/09/2020 food, housing, medical care, [...] for pain. cetirizine (ZyrTEC) 10 mg Take 1 tablet (10 90 tablet 3 11/09/2020 tablet mg total) by mouth daily. cholecalciferol, vitamin Take 1,000 Units by [...] Place 1 patch on 28 patch 2 07/0 11/202011/09/2020 mg/24 hr patch the skin daily. PARoxetine (PAXIL) 10 mg TAKE ONE-HALF 15 tablet 0 10/07/19 21 01/05/2022 tablet TABLET BY MOUTH DAILY Take 1 tablet by 30 tablet 0 10/21/2020 11/19/19 [id number] mouth daily. (VINATE ONE) 60 mg iron-1 [...] Procedure Name Priority Date/Time Associated Comments Diagnosis HUMAN CHORIONIC Routine 11/02/2020 4:39 PM Amenorrhea Result s for this GONADOTROPIN (HCG), CDT procedur e are in [place], the results section. documented in this encounter Results (ABNORMAL) hCG (Human Chorionic Gonadotropin), Quantitative, (11/02/2020 4:39 PM CDT) Analysis Performed At Patho logist Time Signature HCG, [address] (H) <5 IU/L 11/02/2020 [facility] Quantitative, 6:16 PM CDT , P Comment: Biotin has been identified by the angelo ware as a potential interfering substance. ??Higher concentr ations of biotin may be found in multivitamins, hair/nail supple ments, and workout supplements. ??If the result does not [facility] clinical observations, repeat testing after patient refrains fr om the use of supplements for at least 12 hours. Specimen Anatomical Collection Method Collection Time Receive d Time (Source) Location / / Volume Laterality Blood (Blood, 11/02/2020 4:39 PM 11/03/19 4:40 Venous) CDT PM CDT Ben Goff M.D. LAB BLOOD ADD-ON Performing Organization Address City/State/ZIP Code Phon e Number [facility]- [address] [place] [address] [place] [address] [facility] [place] [address] System [address] documented in this encounter Visit Diagnoses Diagnosis Amenorrhea documented in this encounter Additional Health Concerns Assessment Noted Time PHQ-9 Depression Total Score: 17 07/13/2020 3:09 PM CD T documented as of this encounter
--- OUTSIDE RECORDS SUMMARY | 2022-03-16 15:02 | XMS_ITS | Encounter Summary ---
:1980 Author Organization [facility] Address [address] [place] [address] Care Team Providers Name Role Phone Unavailable Primary Care Provider Unavailable Encounter Details Date Type Department Care Team Description 10/22/2020 Orders Only Department of [facility], [place] Amenorrhea (Primary Obstetrics and [address], Dx) Gynecology in [address] [place] [address] [place] [address] Social History Tobacco Use Types [...] More than 4 times per year 11/09/2020 yazidi services? Do you belong to any clubs [...] to pay for the very basics like [employer] hat hard 11/09/2020 food, housing, medical care, [...] as of this encounter Visit Diagnoses Diagnosis Amenorrhea - Primary documented in this encounter Additional Health Concerns Assessment Noted Time PHQ-9 Depression Total Score: 17 07/13/2020 3:09 PM CD T documented as of this encounter
--- OUTSIDE RECORDS SUMMARY | 2022-03-16 15:02 | XMS_ITS | Encounter Summary ---
:1980 Author Organization [facility] Address [address] [place] [address] Care Team Providers Name Role Phone Unavailable Primary Care Provider Unavailable Reason for Visit Reason Comments Med Refill Encounter Details Date Type Department Care Team Description 11/01/2020 Refill Department of Family Medicine, Selena Horta M.D. Med Refill [facility], in [place] [address] [place] [address] [address] [place], [place] [address] [phone] Social History Tobacco Use Types Packs/Day Years [...] More than 4 times per year 11/09/2020 rastafarian services? Do you belong to any clubs [...]
--- OUTSIDE RECORDS SUMMARY | 2022-03-16 15:02 | XMS_ITS | Encounter Summary ---
:1980 Author Organization [facility] Address [address] [place] [address] Care Team Providers Name Role Phone Unavailable Primary Care Provider Unavailable Reason for Visit Reason Comments Ultrasound new OB Encounter Details Date Type Department Care Team Description 10/22/2020 Clinical Communication Department of Krista Banks Preg nancy Obstetrics and LO, C.N.P. Ultrasound (new OB Gynecology in [address] [phone] Social History Tobacco Use Types Packs/Day Years [...] or relatives? How often do you attend gnosticist or More than 4 times per year 11/09/2020 hoahaoism services? Do you belong to any clubs or No 11/09/2020 organizations such as gnosticist groups, unions, fraternal or athletic groups, or [...] this encounter Miscellaneous Notes Telephone Encounter - Yanira Edge R.N. - 10/22/2020 9:17 AM CDT Patient called and informed of plan. Patient transferred to chlorobutadiene scrubber operator to schedule labs. Patient is seeing family practice today so will address hemorrhoids at that visit. Warning signs for ectopic reviewed with patient. If experiencing severe abdominal pain, severe cramping, or vaginal bleeding (heavy bleeding protocol). patient to come to emergency room call us or come in for evaluation. Telephone Encounter - Ben Goff M.D. - 10/22/2020 9:08 AM CDT Rec: check quant bhcg, then review. Rec: same day clinic if hemorrhoids refractory to local treatments. Telephone Encounter - Yanira Edge R.N. - 10/22/2020 8:46 AM CDT Reason for call: Home Test Positive History: LMP: 09/13/20 Gestational Age: 5w4d ALEXANDER: 06/20/21 : 5 Para: 2 Miscarriage: 1, miscarriage, 1 ectopic Termination: 0 Delivery History: 2-vaginal Have you had any of the following? Previous tubal ? Yes, unsure on treatment Diabetes or diabetes in ? No High blood pressure or high blood pressure in ? no Previous blood clots? no Any kidney or liver disease? no Any heart problems? no Received treatment for cancer? no Chronic Illness: Diverticulitis, migraines Medications: Zyrtec, Paxil, Vitamin, duolextine, fiber oral Seasonal Flu Shot:yes COVID Shot: no Tobacco Use: yes Education The initial OB visit is routinely scheduled around 8 weeks of . This first visit will be with our Nurse Practitioner around 11/22/20. The first visit will be an hour appointment that will include obtaining a complete health history, and a physical exam. The physical exam may include a papsmear (if needed or if due) and lab work. You will also be obtaining initial information and information regarding what to expect during your care. You are encouraged to start taking a multivitamin if you are not already taking. vitamins may be obtained over the counter. We would encourage you to abstain from alcohol now that is known. if you smoke, we would also encourage you to stop smoking as well. If you need assistance to quit smoking, we would be happy to assist you with this. [facility] in [place] offers two different departments that provide care. 1) Family Practice department which consists of: Dr. Cardenas and Dr. Reyes in [place]. Delivery will be in [place] for Dr. Cardenas and Dr. Reyes. 2) We have our SUPERSONIC ENGINEER department which specializes in care Which department can we schedule you in your care? SUPERSONIC ENGINEER Patient also states having a lot of painful external hemorrhoids. She states they are very painful and bleeding and bigger than the size of a grape. She has tried tucks pads, OTC creams and no relief. She is currently experiencing diarrhea, but has diverticulitis. Will route to correctional guard provider due tohx of ectopic and complaints of hemorrhoids with no relief with home care measure. Telephone Encounter - Teri Jerry - 10/22/2020 8:42 AM CDT New ob/ questions about hemroids. documented in this encounter Plan of Treatment Not on filedocumented as of this encounter Visit Diagnoses Not on filedocumented in this encounter Additional Health Concerns Assessment Noted Time PHQ-9 Depression Total Score: 17 07/13/2020 3:09 PM CD T documented as of this encounter
--- OUTSIDE RECORDS SUMMARY | 2022-03-16 15:02 | XMS_ITS | Encounter Summary ---
:1980 Author Organization [facility] Address [address] [place] [address] Care Team Providers Name Role Phone Unavailable Primary Care Provider Unavailable Reason for Visit Reason Comments Follow-up [facility], lab and US Outpatient (Routine) - Closed Specialty Diagnoses / Procedures Referred By Contact Refer red To Contact Obstetrics and Ben Goff M.D. [facility] Region Gynecology [address], [facility] [address] [place] [address] Referral ID Status Reason Start Date Expiration Date Visits Requ ested Visits Authorized [id number] Closed 10/26/2020 10/26/2021 1 1 Encounter Details Date Type Department Care Team Description 11/09/2020 [facility] Visit [facility], Encounter For Obstetrics and Indy Lambert M.D. Supervision Of Gynecology in [place] [address] [place] [address] Unspecified [facility] Trimester (Primary [place], [place] Dx) [phone] Social History Tobacco Use Types Packs/Day [...] More than 4 times per year 11/09/2020 latter-day services? Do you belong to any clubs or No 11/09/2020 organizations such as taoism groups, unions, fraScheduling Employee Scheduling [employer] or athletic groups, or school groups? How [...] Sign Reading Time Taken Comments Blood Pressure 102/60 11/09/2020 9:45 AM CDT Pulse - - Temperature - - Respiratory Rate - - Oxygen Saturation - - Inhaled Oxygen Concentration - - Weight 97 kg (213 lb 13.5 oz) 11/09/2020 9:45 AM CDT Height - - Body Mass Index 39.11 10/24/2020 11:36 PM CDT documented in this encounter Progress Notes Indy Don M.D. - 11/09/2020 10:00 AM CDT Patient is a 40-year-old who presents to clinic today for follow-up. She was last seen by Dr. GARCIA at that time she had a positive quantitative hCG and ultrasound that shows a gestational sac without a yolk sac or pole on 10/26/2020. She had a follow-up ultrasound today that confirms an intrauterine . She reports some nausea. She is open to trying Unisom for this. She is tolerating her food just fine. She has a history of migraines and has been having some migrainous headaches. She has tried some Tylenol without improvement in her headache. OBJECTIVE Vitals: 11/09/20 0945 BP: 102/60 US OB First Trimester and Transvaginal Result Date: 11/09/2020 Narrative: EXAM: US OB FIRST TRIMESTER AND TRANSVAGINAL COMPARISON: 10/26/2020 TECHNIQUE: Transabdominal Only FINDINGS: Number of Gestations: Single Gestational age and ALEXANDER by LMP or OB/EHR assignment: 8 w 1 d, ALEXANDER: 06/20/2021 INTRAUTERINE Pole: Normal, Heeney-Rump Length: 0.99 cm Gestational Sac: No rmal Yolk Sac: Normal Placenta Location: Too Early to ID Age and ALEXANDER by current ultrasound measurements: 7 w 1 d, ALEXANDER: 06/27/2021. heart rate: 125 Uterus: No unexpected findings. Right Ovary/Adnexa: Unremarkable Left Ovary/Adnexa: Unremarkable Cervical Length: Subjectively normal by Transabd evaluation only Intraperitoneal Fluid: None. Impression: Single living intra-uterine with dating per full report. US OB First Trimester and Transvaginal Result Date: 10/26/2020 Narrative: EXAM: US OB FIRST TRIMESTER AND TRANSVAGINAL COMPARISON: None TECHNIQUE: Transabdominal and Transvaginal FINDINGS: Number of Gestations: Single Gestational age and ALEXANDER by LMP or OB/EHR assignment: 6 w 1 d, ALEXANDER: 06/20/2021 INTRAUTERINE 4 x 4 by 3 mm anechoic focus within the endometrium. No evidence for pole or yolk sac. Uterus: No unexpected findings. Right Ovary/Adnexa: Normal. Left Ovary/Adnexa: Possible corpus luteum. Cervical Length: Subjectively normal by Transabd evaluation onlyIntraperitoneal Fluid: None. Impression: 4 mm cystic focus within the endometrium may represent an early gestational sac, but is indeterminate. No additional identification of an intrauterine or ectopic. Clinically correlate and recommend follow-up. ASSESSMENT / PLAN Patient is a 40-year-old at 7.1wks presenting to clinic for confirmation visit. -I reviewed the results of her ultrasound which confirmed a live intrauterine today. I recommended half a tablet of Unisom and B6 for her nausea. Her nausea is likely due to her . I recommended increased hydration. and sumatriptan use as needed for her migraines. -She should return to clinic for a new OB visit in intake. -I recommend that she continue to take her vitamins. She should abstain from ibuprofen. -Return to clinic prn. documented in this encounter Plan of Treatment Not on filedocumented as of this encounter Visit Diagnoses Diagnosis Encounter For Supervision Of Normal Preg jameson Unspecified Trimester (HCC) - Primary documented in this encounter Additional Health Concerns Assessment Noted Time PHQ-9 Depression Total Score: 17 07/13/2020 3:09 PM CD T documented as of this encounter
--- OUTSIDE RECORDS SUMMARY | 2022-03-16 15:02 | XMS_ITS | Encounter Summary ---
:1980 [facility] Address [address] [place] [address] Care Team Providers Name Role Phone Unavailable Primary Care Provider Unavailable Reason for Visit Reason Comments Morning Sickness Encounter Details Date Type Department Care Team Description 10/21/2020 Emergency [place] [facility] Jose Melissa, Nausea (Primary Dx); Department P.A.-C. [place] [address] [address] [place], [place] [phone] [address] Social History Tobacco Use Types Packs/Day Years Used Date Smoking Tobacco: Every Day Cigarettes 0.5 S tarted: 2008 Smokeless Tobacco: Never Alcohol Use Standard Drinks/Week [...] or relatives? How often do you attend alevism or More than 4 times per year 11/09/2020 muslim services? Do you belong to any clubs or No 11/09/2020 organizations such as alevism groups, unions, fraternal or athletic groups, or [...] Sign Reading Time Taken Comments Blood Pressure 111/87 10/21/2020 7:35 PM CDT Pulse 92 10/21/2020 7:45 PM CDT Temperature 36.4 ??C (97.5 ??F) 10/21/2020 7:30 PM CDT Respiratory Rate 18 10/21/2020 7:35 PM CDT Oxygen Saturation 98% 10/21/2020 7:45 PM CDT Inhaled Oxygen Concentration - - Weight 94.6 kg (208 lb 8.9 oz) 10/21/2020 7:36 PM CDT Height - - Body Mass Index 37.89 07/08/2020 9:36 AM CDT documented in this encounter Discharge Instructions AttachmentsThe following attachments cannot be sent through Care Everywhere. Morning Sickness (Citizen Of [place])documented in this encounter Medications at Time of Discharge Medication Sig Dispensed Refills Start Date End Date buPROPion XL (WELLBUTRIN Take 1 tablet 30 tablet 0 07/09/19 21 10/22/2020 XL) 150 mg 24 hr (150 mg total) by tabletIndications: Anxiety mouth every morning. cetirizine (ZyrTEC) 10 mg Take 10 mg by 0 021 11/01/2020 tablet mouth daily. cetirizine (ZyrTEC) 5 mg Take 1 tablet (5 90 tablet 3 03/1810/22/2020 tablet mg total) by mouth daily. cholecalciferol, vitamin Take 1,000 Units 0 07/20/2021 D3, (cholecalciferol) 1,000 by mouth daily. Unit tablet doxylamine 25 mg tablet Take 0.5 tablets 30 tablet 0 202006/28/2021 (12.5 mg total) by mouth 2 (two) times a day as needed for nausea. DULoxetine (CYMBALTA) 60 mg Take 60 mg by 0 10/0610/22/2020 DR capsule mouth daily. PARoxetine (PAXIL) 10 mg Take 5 mg by 0 1 10/22/2020 tablet mouth daily. PARoxetine (PAXIL) 10 mg TAKE ONE-HALF 15 tablet 0 10/07/19 21 01/05/2022 tablet TABLET BY MOUTH DAILY PARoxetine (PAXIL) 20 mg Take 1 tablet (20 90 tablet 3 01/1610/22/2020 tabletIndications: Anxiety mg total) by mouth daily. exufwfq-Ga-pnmv-FA Take 1 tablet by 30 tablet 0 11/18/2020 (VINATE ONE) 60 mg iron-1 mouth daily. mg per tablet prochlorperazine Take 1 tablet (10 20 tablet 2 07/13/2020 0 11/09/2020 (COMPAZINE) 10 mg tablet mg total) by mouth every 6 (six) hours as needed for nausea. MAX 9 days/month. psyllium seed, with Take by mouth 0 dextrose, (FIBER ORAL) daily. pyridoxine, vitamin B6, Take 1 tablet (50 30 tablet 0 10/2106/28/2021 (vitamin B-6) 50 mg tablet mg total) by mouth daily. rizatriptan MANAGER DECISION SUPPORT Take 1 tablet (10 18 tablet 3 07/13/2020 (MAXALT-MANAGER DECISION SUPPORT) 10 mg mg total) by disintegrating tablet mouth every 2 (two) hours as needed for migraine. MAX 30mg/day. MAX 9 days/month. topiramate (TOPAMAX) 100 mg Take 1.5 tablets 135 tablet 3 10/22/2020 tabletIndications: Migraine (150 mg total) by Headache mouth daily. UNABLE TO FIND Med Name: Katja, 0 vitamins, shakes, and patches documented as of this encounter ED Notes Jose Melissa P.A.-C. - 10/21/2020 8:07 PM CDT SUBJECTIVE CHIEF COMPLAINT/REASON FOR VISIT Morning Sickness HISTORY OF PRESENT ILLNESS 40 Y/o female states she is several weeks late and just took a test today that confirmed her suspicion that she is . She complains of nausea without vomiting which is similar to what she experienced with previous pregnancies. She denies any other specific complaints including vomiting, diarrhea, constipation, blood in stool, vaginal bleeding. She has not found anything in particularseems to make the symptoms better or worse. She has not yet been seen by an building guard deputy sheriff and is not yet on vitamins. REVIEW OF SYSTEMS Constitutional: Negative for appetite change and fever. HENT: Negative for ear pain, rhinorrhea and sore throat. Eyes: Negative for visual disturbance. Respiratory: Negative for cough, shortness of breath and wheezing. Cardiovascular: Negative for chest pain. Gastrointestinal: Positive for nausea. Negative for abdominal pain, diarrhea and vomiting. Genitourinary: Negative for inability to urinate, dysuria, flank pain, frequency, urgency, vaginal bleeding, vaginal discharge and vaginal pain. Musculoskeletal: Negative for back pain. Skin: Negative for rash. Neurological: Negative for headaches. All other systems reviewed and are negative. OBJECTIVE Initial Vitals Temperature Pulse Rate Heart Rate Resp Rate Blood Pressure SpO2 10/21/20192910/21/201934 -- 10/21/20193410/21/20193410/21/201929 36.4 ??C 94 18 111/87 98 % Pain Score 10/21/201938 0 - No pain PHYSICAL EXAMINATION Constitutional: Nursing note and vitals reviewed. HENT: Head: Normocephalic and atraumatic. Nose: Nose normal. Mouth/Throat: Oropharynx is clear and moist. Mucous membranes are moist. Neck: Neck supple. Cardiovascular: Normal rate, regular rhythm, S1 normal, S2 normal and normal heart sounds. Pulmonary/Chest: Effort normal and breath sounds normal. Abdominal: Soft. Bowel sounds are normal. There is no splenomegaly or hepatomegaly. There is no abdominal tenderness. There is no rigidity, no rebound, no guarding, no CVA tenderness, no tenderness at McBurney's point, negative Burrell's sign, no Psoas sign and no Rovsing's sign. Musculoskeletal: Cervical back: Neck supple. Neurological: Alert and oriented to person, place, and time. Skin: Skin is warm. ASSESSMENT/PLAN IMPRESSION AND PLAN Patient appears well. She states feeling significantly improved after treatment in the ER. Based on history and physical exam I have a low suspicion for acute surgical abdomen, ectopic . Patient has made contact with building guard deputy sheriff will follow-up with the same. I have written prescription for vitamins, vitamin B6, and Unisom as first-line therapy for associated nausea and vomiting. Patient Education regarding diet changes and 1st trimester instructions of . She will follow-up with OB. She return to the ER if new symptoms develop, current symptoms worsen, symptoms fail to improve, or patient becomes concerned. Patient discharged in good condition. I reviewed previous medical records including documentation from previous visits. Final Diagnoses: as of Oct 23 1935 Nausea Personal History Jose Melissa P.A.-C. 10/22/201935 documented in this encounter Plan of Treatment Not on filedocumented as of this encounter Visit Diagnoses Diagnosis Nausea - Primary Personal History documented in this encounter Administered Medications Inactive Administered Medications - up to 3 most recent administrations Medication Order MAR Action Action Date Dose Rate Site promethazine (PHENERGAN) 25 mg tablet - ADS Override Pull Starting on Mon10/21/20 at 1957, For 1 dose, Created by glo override promethazine tablet 25 mg (PHENERGAN) Given 10/21/2020 8:00 PM CDT 25 mg 25 mg, oral, Once, On Mon10/21/20 at 1955, For 1 dose documented in this encounter Active and Recently Administered Medications Times are shown in CDT. Scheduled Medication Order 10/19/2020 10/20/2020 10/21/2020 promethazine tablet 25 mg (PHENERGAN) (COMPLETED) 1999 (Given - Provider: Angela Cruz R.N.) 25 mg, oral, Once, On Mon10/21/20 at 1955, For 1 dose documented in this encounter Additional Health Concerns Assessment Noted Time PHQ-9 Depression Total Score: 17 07/13/2020 3:09 PM CD T documented as of this encounter
--- OUTSIDE RECORDS SUMMARY | 2022-03-16 15:02 | XMS_ITS | Encounter Summary ---
:1980 Author Organization [facility] Address [address] [place] [address] Care Team Providers Name Role Phone Unavailable Primary Care Provider Unavailable Encounter Details Date Type Department Care Team Description 10/24/2020 [facility] Medicine in [address] [facility] [address] [place] [address] [place] [address] [phone] Social History Tobacco Use Types Packs/Day Years [...] or relatives? How often do you attend yarsani or More than 4 times per year 11/09/2020 faith services? Do you belong to any clubs or No 11/09/2020 organizations such as yarsani groups, unions, fraternal or athletic groups, or [...] Sig Dispensed Refills Start Date End Date cetirizine (ZyrTEC) 10 mg Take 10 mg [...] by 30 tablet 0 10/21/2020 11/19/19 21 [id number] mouth daily. (VINATE ONE) 60 mg iron-1 [...] Date/Time Associated Comments Diagnosis HUMAN CHORIONIC Routine 10/24/2020 11:57 Amenorrhea Results for this GONADOTROPIN (HCG), AM CDT procedur e are in [place], the results section. documented in this encounter Results (ABNORMAL) hCG (Human Chorionic Gonadotropin), Quantitative, (10/24/2020 11:57 AM CDT) P athologist Signature HCG, 905 (H) <5 IU/L 10/24/2020 [facility] Quantitative, 12:27 PM CDT , P Comment: Biotin has been identified by the angelo ware as a potential interfering substance. ??Higher concentr ations of biotin may be found in multivitamins, hair/nail supple ments, and workout supplements. ??If the result does not ma [facility] clinical observations, repeat testing after patient refrains fr om the use of supplements for at least 12 hours. Specimen Anatomical Collection Method Collection Time Receive d Time (Source) Location / / Volume Laterality Blood (Blood, 10/24/2020 11:57 10/24/2020 Venous) AM CDT 11:58 AM CDT Ben Goff M.D. LAB BLOOD ADD-ON Performing Organization Address City/State/ZIP Code Phon e Number [facility]- [address] [place], [place] [address] [address] [place] [address] System in [place] [address] documented in this encounter Visit Diagnoses Diagnosis Amenorrhea documented in this encounter Additional Health Concerns Assessment Noted Time PHQ-9 Depression Total Score: 17 07/13/2020 3:09 PM CD T documented as of this encounter
--- OUTSIDE RECORDS SUMMARY | 2022-03-16 15:02 | XMS_ITS | Encounter Summary ---
:1980 Author Organization [facility] Address [address] [place] [address] Care Team Providers Name Role Phone Unavailable Primary Care Provider Unavailable Reason for Visit Reason Comments Migraine Pt presents to ED with a dean huff that started today around 0300. Pt reports being 12weeks and u nable to take her migraine medicine. Encounter Details Date Type Department Care Team Description 12/03/2020 Emergency [facility] Vaughn Lynch M igraine Headache (Primary Dx); Department C.N.P. Not Reason For Visit [address] [place] [address] [address] [place], [place] Zabrina Banegas [address] [place], [place] [phone] (Wo rk) Social History Tobacco Use [...] or relatives? How often do you attend muslim or More than 4 times per year 11/09/2020 druze services? Do you belong to any clubs or No 11/09/2020 organizations such as muslim groups, unions, fraternal or athletic groups, or [...] place to sleep or slept in a intermediate (including now)? Education Answer Date Recorded What is the highest level of school you have Some college, n o degree 11/17/2019 completed or the highest degree you have received? Sex Assigned at Date Recorded Not on file documented as of this encounter Last Filed Vital Signs Vital Sign Reading Time Taken Comments Blood Pressure 114/78 12/03/2020 6:00 PM CDT Pulse 74 12/03/2020 6:00 PM CDT Temperature 36.1 ??C (97 ??F) 12/03/2020 5:30 PM CDT Respiratory Rate 18 12/03/2020 6:00 PM CDT Oxygen Saturation 98% 12/03/2020 6:00 PM CDT Inhaled Oxygen Concentration - - Weight 97.2 kg (214 lb 4.6 oz) 12/03/2020 5:43 PM CDT Height - - Body Mass Index 39.19 10/24/2020 11:36 PM CDT documented in this encounter Discharge Instructions Discharge InstructionsSteeVaughn childress, C.N.P. - 12/03/2020 6:00 PM CDT Home to bed, ice is helpful either at the base of your neck, or your head. Follow-up with primary care for further investigation to medications that you might be able to take at home for your headaches. Thank you for utilizing [facility] for your care! AttachmentsThe following attachments cannot be sent through Care Everywhere. Migraine Headache [id number] (Scottish)documented in this encounter Medications at Time of Discharge Medication Sig Dispensed Refills Start Date End Date acetaminophen (TYLENOL) Take 650 mg by mouth 0 325 mg tablet every 4 (four) hours as needed for pain. ascorbic acid, vitamin TAKE 1 TABLET BY 100 tablet 3 021 C, (VITAMIN C) 500 mg MOUTH DAILY tablet cholecalciferol, vitamin Take 1,000 Units by 0 07/20/2021 D3, (cholecalciferol) mouth daily. 1,000 Unit tablet DULoxetine (CYMBALTA) 30 Take 1 capsule (30 30 capsule 3 11/202008/31/[address] capsule mg total) by mouth daily. Dose reduction 10/22/20. Take 1 tablet by 100 tablet 11 11/18/2020 06/29/19 22 [id number]-[id number]-[id number] mouth daily. (VINATE ONE) 60 mg iron-1 mg per tablet ondansetron (ZOFRAN) 4 TAKE 1 TABLET BY 30 tablet 2 021 11/19/2021 mg tablet MOUTH EVERY SIX HOURS NEEDED ascorbic acid with rachel 0 11/19/2020 0 06/28/2021 hips 500 mg tablet cetirizine (ZyrTEC) 10 Take 10 mg by mouth 0 08/0 08/202003/06/2022 mg tablet daily. cetirizine (ZyrTEC) 10 TAKE 1 TABLET BY 90 tablet 3 021 01/05/2022 mg tablet MOUTH DAILY doxylamine 25 mg tablet Take 0.5 tablets 30 tablet 0 202006/28/2021 (12.5 mg total) by mouth 2 (two) times a day as needed for nausea. PARoxetine (PAXIL) 10 mg TAKE ONE-HALF TABLET 15 tablet 0 0 10/06/2020 01/05/2022 tablet BY MOUTH DAILY psyllium seed, with Take by mouth daily. [...] encounter ED Notes Vaughn Lynch C.N.P. - 12/03/2020 5:59 PM CDT SUBJECTIVE CHIEF COMPLAINT / REASON FOR VISIT Migraine (Pt presents to ED with a migraine that started today around 0300. Pt reports being 12weeks and unable to take her migraine medicine.) HISTORY OF PRESENT ILLNESS Patient presents to the emergency department with complaints of a migraine headache. Patient states she is also approximately 12 weeks . She developed a headache around 3 in the morning. She states identical to her other headaches. She describes it as a global headache with the left side beingmore tender than the right. She describes photophobia, phonophobia, and nausea with 1 episode of vomiting. She denies any neck pain. Denies any other symptoms. She states she is unable to take any of her daily medications secondary to the . Patient has taken Tylenol earlier with no relief. Her last admission to the emergency department she was given Tylenol, Phenergan, and Benadryl with resolution of her headache. History provided by: Patient REVIEW OF SYSTEMS Constitutional: Negative for chills, diaphoresis, fatigue and fever. HENT: Negative for sinus pressure and sore throat. Respiratory: Negative for cough, chest tightness and shortness of breath. Cardiovascular: Negative for chest pain. Gastrointestinal: Positive for nausea and vomiting. Negative for abdominal pain, constipation and diarrhea. Genitourinary: Negative for dysuria, frequency and urgency. Musculoskeletal: Negative for arthralgias and myalgias. Skin: Negative for rash. Neurological: Positive for headaches. Negative for dizziness, speech difficulty and weakness. Hematological: Negative for adenopathy. Does [...] brostrom repair; Surgeon: Alexsander Marshall M.D.; Location: [facility] OR ??? TONSILLECTOMY AND ADENOIDECTOMY N/A 04/17/1994 [...] Heart Rate Resp Rate Blood Pressure SpO2 12/03/20 1730 12/03/20 1745 -- 12/03/20 1745 12/03/20 1730 12/03/20 1745 36.1 ??C 80 18 114/79 96 % Pain Score 12/03/20 1745 7 Wt Readings from Last 3 Encounters: 12/03/20 97.2 kg 11/09/20 97 kg 10/26/20 95.8 kg PHYSICAL EXAMINATION Constitutional: Nursing note and [...] affect. ED COURSE: ED Course as of Dec 03 2129 Roxie Dec 03, 2020 1747 I performed my initial evaluation of the patient. We discussed Emergency Department course including testing, treatment, and potential disposition based on findings. 1754 I discussed the plan for discharge with [...] discharged by RN. Final Diagnoses: as of Dec 03 2129 Migraine Headache Not Reason For Visit INTERVENTIONS: Medications diphenhydrAMINE injection 50 mg (BENADRYL) (50 mg intramuscular Given 12/03/201802) promethazine injection 12.5 mg (PHENERGAN) (12.5 mg intramuscular Given 12/03/201802) acetaminophen tablet 1,000 mg (TYLENOL) (1,000 mg oral Given 12/03/201803) ASSESSMENT / PLAN IMPRESSION AND PLAN To the emergency department. Presents to the emergency department with complaints of a migraine headache, this is identical to her previous headaches. The patient presents to the ED for evaluation of headache. The patient arrives still in active pain.At present, given the patient's history and my examination, my suspicion is that the headache is either due to a migraine or tension headache. I do not think the patient has a a subarachnoid hemorrhage- it was not sudden and maximal at onset, is not described as [...] exam and absence of an insidious course. 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 Evaluation and management will include: Patient was given a 12.5 mg of Phenergan IM, 50 mg of Benadryl IM, and 1 g of Tylenol. Patient states she prefers to be discharged so she can go home to sleep. Patient was given red flag red flag symptoms to return her to the emergency department. She called fora ride home and was discharged. I reviewed previous medical records including documentation from previous visits. DIAGNOSIS: Final diagnoses: [G43.909] Migraine Headache [Z33.1] Not Reason For Visit ED DISCHARGE MEDS: ED Prescriptions None DISPOSITION: Home or Self Care DISCHARGE VITAL SIGNS: Vitals: 12/03/20 1800 BP: 114/78 Pulse: 74 Resp: 18 Temp: SpO2: 98% FOLLOW UP: Contact Information for Follow-ups Selena Cordoba M.D. Specialty: Family Medicine Relationship: PCP - General [address] [place] [phone] Next Steps: Follow up Vaughn Lynch, SCOOTER, CHIEF LIFESTYLE OFFICER, BROWNFIELD REDEVELOPMENT SPECIALIST-C, AGACNP-BC, ENP-C Emergency Medicin Vaughn Lynch, C.N.P. 12/03/200 documented in this encounter Plan of Treatment Not on filedocumented as of this encounter Visit Diagnoses Diagnosis Migraine Headache - Primary Not Reason For Visit (HCC) documented in this encounter Administered Medications Inactive Administered Medications - up to 3 most recent administrations Medication Order MAR Action Action Date Dose Rate Site acetaminophen tablet 1,000 mg Given 12/03/2020 6:04 PM CDT 1,000 mg (TYLENOL) 1,000 mg, oral, Once, On Roxie 12/03/20 at 1758, For 1 dose diphenhydrAMINE injection 50 Given 12/03/2020 6:03 PM CDT 50 mg Right Ventrogluteal mg (BENADRYL) 50 mg, intramuscular, Once, On Roxie 12/03/20 at 1758, For 1 dose promethazine injection 12.5 Given 12/03/2020 6:03 PM 12.5 mg Left Ventrogluteal mg (PHENERGAN) CDT 12.5 mg, intramuscular, Once, On Roxie 12/03/20 at 1758, For 1 dose documented in this encounter Active and Recently Administered Medications Times are shown in CDT. Scheduled Medication Order 12/01/2020 12/02/2020 12/03/2020 acetaminophen tablet 1,000 mg (TYLENOL) (COMPLETED) 180 (Given - Provider: Garrett Drake R.N.) 1,000 mg, oral, Once, On Roxie 12/03/20 at 1758, For 1 dose diphenhydrAMINE injection 50 mg (BENADRYL) (COMPLETED) 180 (Given - Provider: Garrett Drake R.N.) 50 mg, intramuscular, Once, On Roxie 12/03/20 at 1758, For 1 dose promethazine injection 12.5 mg (PHENERGAN) (COMPLETED) 180 (Given - Provider: Garrett Drake R.N.) 12.5 mg, intramuscular, Once, On Roxie 12/03/20 at 1758, For 1 dose documented in this encounter Additional Health Concerns Assessment Noted Time PHQ-9 Depression Total Score: 17 07/13/2020 3:09 PM CD T documented as of this encounter
--- OUTSIDE RECORDS SUMMARY | 2022-03-16 15:02 | XMS_ITS | Encounter Summary ---
:1980 Author Organization [facility] Address [address] [place] [address] Care Team Providers Name Role Phone Unavailable Primary Care Provider Unavailable Encounter Details Date Type Department Care Team Description 10/22/2020 [facility] Am[facility] Laboratory Medicine in [address] [facility] [address] [place] [address] [place] [address] [phone] Social History Tobacco Use Types Packs/Day Years [...] or relatives? How often do you attend confucianism or More than 4 times per year 11/09/2020 yazidism services? Do you belong to any clubs or No 11/09/2020 organizations such as confucianism groups, unions, fraternal or athletic groups, or [...] by 30 tablet 0 10/21/2020 11/19/19 21 [id number]-FA mouth daily. (VINATE ONE) 60 mg iron-1 [...] Procedure Name Priority Date/Time Associated Comments Diagnosis ABORH, RBC Routine 10/22/2020 12:06 Amenorrhea Results for this PM CDT procedure are i n the results section. HUMAN CHORIONIC Routine 10/22/2020 12:06 Amenorrhea Results for this GONADOTROPIN (HCG), PM CDT procedur e are in [facility], the results section. documented in this encounter Results ABORh, RBC (10/22/2020 12:06 PM CDT) P athologist Signature ABO Group O 10/22/2020 1:00 [facility] PM CDT Rh Type POS 10/22/2020 1:00 [facility] PM CDT Specimen Anatomical Collection Method Collection Time Receive d Time (Source) Location / / Volume Laterality Blood (Blood, 10/22/2020 12:06 10/22/2020 Venous) PM CDT 12:08 PM CDT Ben Goff M.D. LAB BLOOD BANK TEST ORDERABL ES Performing Organization Address City/State/ZIP Code Phon e Number [facility]- [address] [place] [address] [facility] [place] [address] System in [place] [address] (ABNORMAL) hCG (Human Chorionic Gonadotropin), Quantitative, (10/22/2020 12:06 PM CDT) athologist Signature HCG, 453 (H) <5 IU/L 10/22/2020 [facility] Quantitative, 12:30 PM CDT , P Comment: Biotin has been identified by the angelo ware as a potential interfering substance. ??Higher concentr ations of biotin may be found in multivitamins, hair/nail supple ments, and workout supplements. ??If the result does not ma [facility] clinical observations, repeat testing after patient refrains fr om the use of supplements for at least 12 hours. Specimen Anatomical Collection Method Collection Time Receive d Time (Source) Location / / Volume Laterality Blood (Blood, 10/22/2020 12:06 10/22/2020 Venous) PM CDT 12:08 PM CDT Ben Goff M.D. LAB BLOOD ADD-ON Performing Organization Address City/State/ZIP Code Phon e Number [facility]- [address] [place], [place] [address] [place] [address] System in [place] [address] [address] documented in this encounter Visit Diagnoses Diagnosis Amenorrhea documented in this encounter Additional Health Concerns Assessment Noted Time PHQ-9 Depression Total Score: 17 07/13/2020 3:09 PM CD T documented as of this encounter
--- OUTSIDE RECORDS SUMMARY | 2022-03-16 15:02 | XMS_ITS | Encounter Summary ---
:1980 Author Organization [facility] Address [address] [place] [address] Care Team Providers Name Role Phone Unavailable Primary Care Provider Unavailable Encounter Details Date Type Department Care Team Description 10/26/2020 Hospital Encounter [facility] Laboratory Medicine in [address] [facility] [address] [place] [address] [place] [address] [phone] Social History Tobacco Use Types Packs/Day Years [...] Place 1 patch on 28 patch 2 07/11/202011/09/2020 mg/24 hr patch the skin daily. PARoxetine (PAXIL) 10 mg TAKE ONE-HALF 15 tablet 0 10/07/19 21 01/05/2022 tablet TABLET BY MOUTH DAILY Take 1 tablet by 30 tablet 0 10/21/2020 11/19/19 [id number]-Nw-noao-FA mouth daily. (VINATE ONE) 60 mg iron-1 [...] Date/Time Associated Comments Diagnosis HUMAN CHORIONIC Routine 10/26/2020 1:45 PM Amenorrhea Result s for this GONADOTROPIN (HCG), CDT procedur e are in [place], the results section. documented in this encounter Results (ABNORMAL) hCG (Human Chorionic Gonadotropin), Quantitative, (10/26/2020 1:45 PM CDT) P athologist Signature HCG, 1980 (H) <5 IU/L 10/26/2020 [facility] Quantitative, 2:12 PM CDT , P Comment: Biotin has been identified by the angelo ware as a potential interfering substance. ??Higher concentr ations of biotin may be found in multivitamins, hair/nail supple ments, and workout supplements. ??If the result does not [facility] clinical observations, repeat testing after patient refrains fr om the use of supplements for at least 12 hours. Specimen Anatomical Collection Method Collection Time Receive d Time (Source) Location / / Volume Laterality Blood (Blood, 10/26/2020 1:45 PM 10/27/19 1:48 Venous) CDT PM CDT Ben Goff M.D. LAB BLOOD ADD-ON Performing Organization Address City/State/ZIP Code Phon e Number [facility]- [address] [place], [place] [address] [address] [facility] [place] [address] System in [place] [address] documented in this encounter Visit Diagnoses Diagnosis Amenorrhea documented in this encounter Additional Health Concerns Assessment Noted Time PHQ-9 Depression Total Score: 17 07/13/2020 3:09 PM CD T documented as of this encounter
--- OUTSIDE RECORDS SUMMARY | 2022-03-16 15:02 | XMS_ITS | Encounter Summary ---
:1980 Author Organization [facility] Address [address] [place] [address] Care Team Providers Name Role Phone Unavailable Primary Care Provider Unavailable Reason for Visit Reason Comments Med Refill Encounter Details Date Type Department Care Team Description 11/18/2020 Refill Department of Family Medicine, Selena Horta M.D. Med Refill [facility], in [place] [address] [address] [place], [place] [address] [phone] Social History Tobacco Use Types Packs/Day Years [...] or relatives? How often do you attend islam or More than 4 times per year 11/09/2020 sabianism services? Do you belong to any clubs or No 11/09/2020 organizations such as islam groups, unions, fraternal or athletic groups, or [...]
--- OUTSIDE RECORDS SUMMARY | 2022-03-16 15:02 | XMS_ITS | Encounter Summary ---
:1980 Author Organization [facility] Address [address] [place] [address] Care Team Providers Name Role Phone Unavailable Primary Care Provider Unavailable Encounter Details Date Type Department Care Team Description 10/26/2020 Hospital Encounter Department of Radiology Ben Goff M.D. [facility] [address], [address] [place] [address] [place] [address] [place] [address] [phone] (Wo rk) Social History Tobacco Use Types [...] How often do you attend jain or More than 4 times per year 11/09/2020 anabaptist services? Do you belong to any clubs or No 11/09/2020 organizations such as jain groups, unions, fraternal [...] to pay for the very basics like [employer]w hat hard 11/09/2020 food, housing, medical care, [...] tablet by 30 tablet 0 10/21/2020 11/19/19 ovvzvby-Mn-rfuz-FA mouth daily. (VINATE ONE) 60 mg iron-1 [...] Diagnosis US OB FIRST RAD - Routine 10/26/2020 2:29 Amenorrhea Results for this TRIMESTER AND (most inpatients PM CDT procedure are in TRANSVAGINAL and all [...] correlate and recommend follow-up. Ben Goff M.D. IMVandana OB US PROCEDURES documented in this encounter Visit Diagnoses Diagnosis Amenorrhea documented in this encounter Additional Health Concerns Assessment Noted Time PHQ-9 Depression Total Score: 17 07/13/2020 3:09 PM CD T documented as of this encounter
--- OUTSIDE RECORDS SUMMARY | 2022-03-16 15:03 | XMS_ITS | Encounter Summary ---
:[address] [facility] Address [address] [place] [address] Care Team Providers Name Role Phone Unavailable Primary Care Provider Unavailable Encounter Details Date Type Department Care Team Description 09/30/2020 Clinical Communication Department of [facility] Wendy Cordoba, Medicine, [place] [facility], in [address] [phone] Social History Tobacco Use Types Packs/Day Years Used Date Smoking Tobacco: Every Day Cigarettes 1 S tarted: 2008 Smokeless Tobacco: Never Alcohol [...] or relatives? How often do you attend scientology or More than 4 times per year 11/09/2020 zoroastrian services? Do you belong to any clubs or No 11/09/2020 organizations such as scientology groups, unions, fraternal or athletic groups, or [...] to pay for the very basics like [employer] hat hard 11/09/2020 food, housing, medical care, [...] this encounter Miscellaneous Notes Telephone Encounter - Teri Gómez - 09/30/2020 11:12 AM CDT Joseph paperwork received and emailed to [phone] documented in this encounter Plan of Treatment Not on filedocumented as of this encounter Visit Diagnoses Not on filedocumented in this encounter Additional Health Concerns Assessment Noted Time PHQ-9 Depression Total Score: 17 07/13/2020 3:09 PM CD T documented as of this encounter
--- OUTSIDE RECORDS SUMMARY | 2022-03-16 15:03 | XMS_ITS | Encounter Summary ---
:1980 Author Organization [facility] Address [address] [place] [address] Care Team Providers Name Role Phone Unavailable Primary Care Provider Unavailable Reason for Visit Reason Comments Migraine Encounter Details Date Type Department Care Team Description 07/01/2020 Emergency [facility] Migraine Headache Without Aura (Primary Dx); Department Bruce SAHA M.D. Nausea And Vomiting; [address] [place] [address] [address] [place] [phone] (Wo rk) Social History Tobacco Use Types [...] Reading Time Taken Comments Blood Pressure 120/84 07/01/2020 6:59 AM CDT Pulse 76 07/01/2020 6:59 AM CDT Temperature 36.6 ??C (97.9 ??F) 07/01/2020 6:59 AM CDT Respiratory Rate 18 07/01/2020 6:59 AM CDT Oxygen Saturation 94% 07/01/2020 6:59 AM CDT Inhaled Oxygen Concentration - - Weight 93.7 kg (206 lb 9.1 oz) 07/01/2020 6:59 AM CDT Height - - Body Mass Index 37.78 12/05/2019 9:55 AM CDT documented in this encounter Discharge Instructions AttachmentsThe following attachments cannot be sent through Care Everywhere. Migraine Headache Fxow-lo-Ixna (Citizen [place])documented in this encounter Medications at Time of Discharge Medication Sig Dispensed Refills Start Date End Date cetirizine (ZyrTEC) 5 mg Take 1 tablet (5 mg 90 tablet 3 10/22/2020 tablet total) by mouth daily. cholecalciferol, vitamin Take 1,000 Units by 0 07/20/2021 D3, (cholecalciferol) mouth daily. 1,000 Unit tablet HYDROcodone-acetaminophe Take 1 tablet by 10 tablet 0 03/2407/08/2020 n (NORCO) 5-325 mg per mouth every 6 (six) tabletIndications: hours as needed for Prolonged Acute pain Indication: Pain/Traumatic Injury Prolonged Acute Pain/Traumatic Injury. PARoxetine (PAXIL) 20 mg Take 1 tablet (20 mg 90 tablet 3 1 10/22/2020 tabletIndications: total) by mouth Anxiety daily. topiramate (TOPAMAX) 100 Take 1 tablet (100 mg 90 tablet 3 02/04/2020 07/08/2020 mg tabletIndications: total) by mouth Migraine Headache daily. UNABLE TO FIND Med Name: Thrive, 0 vitamins, shakes, and patches varenicline (CHANTIX Use as directed on 53 tablet 0 020 07/08/2020 ZAKIA) 0.5 mg (11)- 1 mg package instructions, (42) tabletIndications: try to quit smoking Tobacco Use after 1 week. documented as of this encounter ED Notes Gutierrez Shay III, M.D. - 07/01/2020 7:26 AM CDT SUBJECTIVE CHIEF COMPLAINT/REASON FOR VISIT Migraine HISTORY OF PRESENT ILLNESS [age] year female with history of obesity, asthma, migraine headaches presenting with headache that started today like her usual migraines do. It slowly became worse throughout the day, beginning yesterday, and she tried some ibuprofen and Benadryl which usually takes care the pain for her although occasionally it does not. This a.m. she took 600 ibuprofen and 25 mg of benadryl liquid without improvement due to an episode of vomiting. She states the headache is bilateral and rated 5/10 in intensity. Pain was achy and throbbing. Photophobia without visual disturbance. History provided by: Patient and medical records REVIEW OF SYSTEMS Constitutional: Negative for chills and fever. HENT: Negative for congestion and sore throat. Eyes: Positive for photophobia. Negative for redness and visual disturbance. Respiratory: Negative for cough, chest tightness, shortness of breath and wheezing. Cardiovascular: Negative for chest pain, palpitations and leg swelling. Gastrointestinal: Positive for nausea and vomiting. Negative for abdominal pain, constipation and diarrhea. Musculoskeletal: Negative for arthralgias and myalgias. Skin: Negative for color change and rash. Allergic/Immunologic: Negative for environmental allergies, food allergies and immunocompromised state. Neurological: Positive for headaches. Negative for dizziness, weakness, numbness and loss of balance. Hematological: Does not bruise/bleed easily. OBJECTIVE Initial Vitals [07/01/20 0659] Temperature Pulse Rate Heart Rate Resp Rate Blood Pressure SpO2 36.6 ??C 76 -- 18 120/84 94 % Pain Score -- PHYSICAL EXAMINATION Constitutional: Nursing note and vitals reviewed. HENT: Head: Normocephalic and atraumatic. Mouth/Throat: Mucous membranes are moist. Eyes: Conjunctivae and EOM are normal. Pupils are equal, round, and reactive to light. Neck: Normal range of motion. Neck supple. Cardiovascular: Regular rhythm, S1 normal, S2 normal and normal heart sounds. Pulmonary/Chest: Effort normal and breath sounds normal. There is normal air entry. Abdominal: Soft. Musculoskeletal: Normal range of motion. Neurological: Alert and oriented to person, place, and time. No cranial nerve deficit. Skin: Skin is warm, dry and normal color. Psychiatric: She has a normal mood and affect. ASSESSMENT/PLAN IMPRESSION AND PLAN The patient has a probable migraine, although not classic. He received droperidol, Ketoralac, and benadryl. She has requested to be discharged prior to recommended as she has a ride home. I have recommended she stay but she politely declined. Reasons to return to the ED discussed. 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 DIFFERENTIAL DIAGNOSIS Life threatening differential diagnoses include: SAH, meningitis, encephalitis, carbon monoxide poisoning and intracerebral hemorrhage. Other differential diagnoses include, but are not limited to: Migraine, cluster headache, tension headache, RN NEONATAL vasculitis, mass lesion, temporal arteritis, acute closed angle glaucoma, occipital or trigeminal neuralgia, and sinusitis. A lumbar puncture and head CT were deemed unnecessary because the patient's symptoms did not indicate a subarachnoid hemorrhage, mass lesion, intracerebral hemorrhage or meningitis; The patient had no fever, rash, meningismus, the headache did not come on suddenly, it is not the worst headache of their life and their neurologic examination was normal. I reviewed previous medical records including documentation from previous visits. Final Diagnoses: as of Jul 01 730 Migraine Headache Without Aura Nausea And Vomiting Photophobia Gutierrez Shay III, M.D. 07/01/20 0941 Yanira Gamble R.N. - 07/01/2020 7:04 AM CDT Pt presents to ER with c/o of migraine that started yesterday around 10 am. Pt states she has had norelief from ibuprofen and benadryl. States N&V this morning. Yanira Gamble R.N. 07/01/20 0705 Yanira Gamble R.N. 07/01/20 0720 documented in this encounter Plan of Treatment Not on filedocumented as of this encounter Visit Diagnoses Diagnosis Migraine Headache Without Aura - Primary Nausea And Vomiting Photophobia documented in this encounter Administered Medications Inactive Administered Medications - up to 3 most recent administrations Medication Order MAR Action Action Date Dose Rate Site diphenhydrAMINE injection Given 07/01/2020 7:26 25 mg Left Ventrogluteal 25 mg (BENADRYL) AM CDT 25 mg, intramuscular, Once, On Mon07/01/20 at 0718, For 1 dose droperidoL injection 1.25 mg Given 07/01/2020 7:27 AM 1.25 mg Right Ventrogluteal (INAPSINE) CDT 1.25 mg, intramuscular, Once, On Mon07/01/20 at 0718, For 1 dose ketorolac injection 15 mg Given 07/01/2020 7:26 AM CDT 15 mg Left Ventrogluteal (TORADOL) 15 mg, intramuscular, Once, On Mon07/01/20 at 0719, For 1 dose, Adult IV push rate: Over 15 seconds. Peds IV push rate: Over 1 minute. 60 mg dose only for IM, not recommended for IV. documented in this encounter Active and Recently Administered Medications Times are shown in CDT. Scheduled Medication Order 06/29/2020 06/30/2020 07/01/2020 diphenhydrAMINE injection 25 mg (BENADRYL) (COMPLETED) 07 (Given - Provider: Yanira Gamble R.N.) 25 mg, intramuscular, Once, On Mon07/01/20 at 0718, For 1 dose droperidoL injection 1.25 mg (INAPSINE) (COMPLETED) 726 (Given - Provider: Yanira Gamble R.N.) 1.25 mg, intramuscular, Once, On Mon07/01/20 at 0718, For 1 dose ketorolac injection 15 mg (TORADOL) (COMPLETED) 725 (Given - Provider: Yanira Gamble R.N.) 15 mg, intramuscular, Once, On Mon at 0719, For 1 dose, Adult IV push rate: Over 15 seconds. Peds IV push rate: Over 1 minute. 60 mg dose only for IM, not recommended for IV. documented in this encounter Additional Health Concerns Assessment Noted Time PHQ-9 Depression Total Score: 3 02/03/2020 5:39 PM CDT documented as of this encounter
--- OUTSIDE RECORDS SUMMARY | 2022-03-16 15:03 | XMS_ITS | Encounter Summary ---
:1980 Author Organization [facility] Address [address] [place] [address] Care Team Providers Name Role Phone Elsewhere, Pcp Primary Care Provider Unavailable Reason for Visit Reason Comments Follow-up Paxil (Thinks she needs to i ncrease), Doesn't do well with the Hydroyzine (Feels like she is having in creased migraines and panic attacks since starting medication.) Appointment Request (Routine) - Closed Specialty Diagnoses / Procedures Referred By Contact Refer red To Contact Family Medicine Referral ID Status Reason Start Date Expiration Date Visits Requ ested Visits Authorized [id number] Closed 01/30/2020 01/29/2021 1 1 Encounter Details Date Type Department Care Team Description 02/03/2020 Telemedicine Department of [facility] Selena Cordoba An xiety (Primary Dx); Medicine, [place] [facility], in [address] [phone] Social History Tobacco Use Types Packs/Day Years Used Date Smoking Tobacco: Every Day Cigarettes 1 S tarted: 2007 Smokeless Tobacco: Never Alcohol Use Standard Drinks/Week Comments Not Currently 0 (1 standard drink = 0.6 oz pure alcoho l) Alcohol Habits Answer Date Recorded How often [...] More than 4 times per year 11/09/2020 episcopal services? Do you belong to any [...] place to sleep or slept in a retirement (including now)? Education Answer Date Recorded What is the highest level of school you have Some college, n o degree 11/17/2019 completed or the highest degree you have received? Sex Assigned at Date Recorded Not on file documented as of this encounter Progress Selena Najera M.D. - 02/03/2020 5:45 PM CDT SUBJECTIVE CHIEF COMPLAINT / REASON FOR VISIT Dulce Lei is a 39 y.o. female who presents for evaluation of Follow-up (Paxil (Thinks she needs to increase), Doesn't do well with the Hydroyzine (Feels like she is having increased migraines and panic attacks since starting medication.)). HISTORY OF PRESENT ILLNESS 1. Anxiety ?? Panick attacks are increasing. She notices them about every other day. They typically occur at bedtime. She wonders if this is due to being in the house, not going anywehre, and Covid, or other. Shereports one minute she will have tons of energy, and then she will feel so tired like she can't do anything else. ?? Psychology: Slowly working with Pscyhology. She has been working with family therapy which she does find helpful. No individualized family therapy sessions . ?? Atarax: She reports that it causes more headaches and panic. Not helpful and actually made thingsworse. ?? She does feel ready to increase Paxil at this time. .2. Tobacco use Didn't start chantix. She feels like she hasn't been in the head space at the present time to start it. 3. Migraines She is on Topamax for chronic migraines. She does feel that they have been worse/more frequent recently. Possibly due to increased anxiety. She was previously on a much higher dose of Topamax. She is interested in increasing her Topamax again at this time. The following portions of the patient's history were reviewed and updated as appropriate: allergies,current medications, family history, medical history, social history, surgical history and problem list. OBJECTIVE No vitals taken due to video visit. PHYSICAL EXAM General: Pleasant, alert Resp: Breathing comfortably no room air, no increased work of breathing. ASSESSMENT / PLAN 1. Anxiety Will increase paxil to 20mg daily. Follow-up in 4-6 weeks to recheck on symptoms. - PARoxetine (PAXIL) 20 mg tablet; Take 1 tablet (20 mg total) by mouth daily. Dispense: 90 tablet; Refill: 3 2. Migraine Headache Increase to 100mg daily. Follow-up in 4-6 weeks to recheck on symptoms. Suspect that increased anxiety may be playing a role as well. - topiramate (TOPAMAX) 100 mg tablet; Take 1 tablet (100 mg total) by mouth daily. Dispense: 90 tablet; Refill: 3 Selena Cordoba M.D. 02/03/20 Provider locations: [facility] 6:04 PM CDT 6:28 PM CDT documented in this encounter Plan of Treatment Not on filedocumented as of this encounter Visit Diagnoses Diagnosis Anxiety - Primary Migraine Headache documented in this encounter Additional Health Concerns Assessment Noted Time PHQ-9 Depression Total Score: 3 02/03/2020 5:39 PM CDT documented as of this encounter Care Teams Asp Net C Developer Relationship Specialty Start Date End Date Elsewhere, Pcp PCP - General Internal Medicine 06/25/19 03/18/20 documented as of this encounter
--- OUTSIDE RECORDS SUMMARY | 2022-03-16 15:03 | XMS_ITS | Encounter Summary ---
:1980 Author Organization [facility] Address [address] [place] [address] Care Team Providers Name Role Phone Unavailable Primary Care Provider Unavailable Reason for Visit Reason Comments Med Refill Encounter Details Date Type Department Care Team Description 03/24/2020 Refill Department of Family Medicine, Selena Horta M.D. Med Refill [facility], in [place] [address] [address] [address] [place], [place] [address] [phone] Social History Tobacco Use Types Packs/Day Years [...] or relatives? How often do you attend mormonism or More than 4 times per year 11/09/2020 taoist services? Do you belong to any clubs or No 11/09/2020 organizations such as mormonism groups, unions, fraternal or athletic groups, or [...] this encounter Miscellaneous Notes Telephone Encounter - Jaimie Galdamez R.N. - 03/24/2020 8:47 AM HEAD OF SALES PROMOTION Patient is past the 90 post op period. Routing to primary provider for review and recommendation forfurther refills. Las refill [id number] Surgery: 12/11/19 OF SALES PROMOTION Telephone Encounter - Yanira Lei - 03/24/2020 7:02 AM CST Images from the original note were not included. Nurse review: Unable to forward request to provider; Controlled substance Primary Provider: Sandhya Lyons Medication requested: Pharmacy: [facility] OF [employer]ES [employer]OMOTION documented in this encounter Plan of Treatment Not on filedocumented as of this encounter Visit Diagnoses Not on filedocumented in this encounter Additional Health Concerns Assessment Noted Time PHQ-9 Depression Total Score: 3 02/03/2020 5:39 PM CDT documented as of this encounter
--- OUTSIDE RECORDS SUMMARY | 2022-03-16 15:03 | XMS_ITS | Encounter Summary ---
:1980 Author Organization [facility] Address [address] [place] [address] Care Team Providers Name Role Phone Unavailable Primary Care Provider Unavailable Reason for Referral Outpatient (Routine) - Closed Specialty Diagnoses / Procedures Referred By Contact Refer red To Contact Sleep Medicine Diagnoses Snoring Selena Cordoba M.D. [address] [phone] Referral ID Status Reason Start Date Expiration Date Visits V isits Requested Authorized [id number] Closed Specialty 07/08/2020 07/08/2021 1 1 Services Required Outpatient (Routine) - Closed Specialty Diagnoses / Procedures Referred By Contact Refer kendal To Contact Neurology Diagnoses Migraine Headache Selena Cordboa M.D. [address] [phone] Referral ID Status Reason Start Date Expiration Date Visits Requ ested Visits Authorized [id number] Closed 07/08/2020 07/08/2021 1 1 Reason for Visit Reason Comments Annual Exam wants to talk about a few th ings Appointment Request (Routine) - Closed Specialty Diagnoses / Procedures Referred By Contact Refer red To Contact Family Medicine Referral ID Status Reason Start Date Expiration Date Visits Requ ested Visits Authorized [id number] Closed 06/22/2020 06/22/2021 1 1 Encounter Details Date Type Department Care Team Description 07/08/2020 Comprehensive Visit Department of Selena Cordoba Medical Examination Adult (Primary Dx); Family MedicinePer M.D. Pap Smear [place]; [place] [address] Anxiety; Clinic, in [facility] Migraine Headache; [place], [place] Jhonatan Purvis, Fatigue; [address] [place] [address] [place] [phone] Snoring; BLVD [phone] Screening Lipid; [place], [place] (Work) Screening Examination For Viral Disease [id number] Social History Tobacco Use Types Packs/Day Years Used Date Smoking Tobacco: Every Day Cigarettes 1 S tarted: 2007 Smokeless Tobacco: Never Tobacco Cessation: Ready to Quit: No; Co unseling Given: Yes Alcohol Use Standard Drinks/Week Comments Yes 0 [...] or relatives? How often do you attend latter-day or More than 4 times per year 11/09/2020 mandaen services? Do you belong to any clubs or No 11/09/2020 organizations such as latter-day groups, unions, fraternal or athletic groups, or [...] Sign Reading Time Taken Comments Blood Pressure 118/84 07/08/2020 9:36 AM CDT Pulse 68 07/08/2020 9:36 AM CDT Temperature 36.4 ??C (97.5 ??F) 07/08/2020 9:36 AM CDT Respiratory Rate 16 07/08/2020 9:36 AM CDT Oxygen Saturation 99% 07/08/2020 9:36 AM CDT Inhaled Oxygen Concentration - - Weight 92.3 kg (203 lb 7.8 oz) 07/08/2020 9:36 AM CDT Height 158 cm (5' 2.21) 07/08/2020 9:36 AM CDT Body Mass Index 36.97 07/08/2020 9:36 AM CDT documented in this encounter Patient Instructions Patient InstructionsWSelena weir M.D. - 07/08/2020 9:30 AM CDT Start Wellbutrin 150mg once daily and follow-up in one month for mood and visit recheck. Labs today. Sleep Medicine and Migraine headache consults ordered and will call to schedule documented in this encounter H&P Notes Selena Cordoba M.D. - 07/08/2020 9:30 AM CDT SUBJECTIVE CHIEF COMPLAINT / REASON FOR VISIT Dulce Lei is a 40 y.o. female who presents for evaluation of Annual Exam (wants to talk about a few things ). HISTORY OF PRESENT ILLNESS ??? Chronic medical conditions ??? Headaches: Previously thought secondary to sinuses. She saw ENT and CT sinuses was normal and nopolyps were visualized. She tried Flonase, but this created nasal crusting and pain. She has tried anettipot previously. She reports typically in the past increasing the Topamax in the Spring has beenhelpful. Severe migraines 1-2 times per month. Medications like Imitrex have not been helpful in thepast. She gets nausea, vomiting, and light sensitivity. They have been getting progressively worse in frequency and intensity. She has never had previous imaging. They started as a teenager. ??? Depression: She feels tired all the time, lack of ambition. She is currently on 20 mg of Paxil daily. She does report decreased libido as side effect. For this reason, she would prefer not to increase her Paxil further. She is interested in adding Wellbutrin as an adjunct for combination of mood and possible benefit with sexual side effects. ??? Routine health maintenance ?? Last papsmear: 07/03/2017: NIL HPV negative. ?? Family history colon cancer:No. ?? Family history of breast cancer: No. ?? Family history of diabetes: ?? Weight: BMI 37 ?? A1c: Normal. ?? Lipid panel: Due. ?? Contraception: Mirena IUD inserted 11/03/2015 Sleep apnea concerns: Here for concerns of obstructive sleep apnea. Others have noted that she quits breathing in her sleep. Symptoms of excessive daytime sleepiness, loud snoring, abrupt awakenings accompanied by gasping or choking, awakening with a dry mouth or sore throat, morning headache, difficulty concentrating, decreased libido has been noted. Stop Bang Total Score: 3 The following portions of the patient's history were reviewed and updated as appropriate: allergies,current medications, family history, medical history, social history, surgical history and problem list. REVIEW OF SYSTEMS Constitutional: Positive for fatigue. Negative for fever. Skin: Negative for skin rash and change in mole or skin spot. Eyes: Negative for double vision and visual problems. ENT: Positive for sinus congestion. Negative for difficulty hearing. Respiratory: Negative for coughing up blood, coughing up mucus (phlegm), dyspnea and wheezing. Cardiovascular: Positive for swelling in the legs or feet (Only on right side post surgery). Negative for chest pain, pressure or tightness, rapid or fluttering heart beat and shortness of breath when lying flat. Gastrointestinal: Negative for abdominal (belly) pain or cramping, constipation, diarrhea, nausea and vomiting. Genitourinary: Negative for difficulty urinating and hematuria. Musculoskeletal: Negative for back pain and joint swelling. Neurological: Positive for numbness or shooting pain in hands, arms, legs, or feet (Only when sleeping with different positions) and headaches. Negative for loss of consciousness, light-headedness and blackouts. Psychiatric/Behavioral: Positive for snores loudly (Recommended sleep study per ENT). OBJECTIVE BP 118/84 (BP Location: Left arm, Patient Position: Sitting, Cuff Size: Large) Pulse 68 Temp 36.4 ??C (Temporal) Resp 16 Ht 158 cm Wt 92.3 kg SpO2 99% BMI 36.97 kg/m?? PHYSICAL EXAM General: Pleasant, alert, in no apparent distress. Well groomed. Eyes: No conjunctival injection or erythema. No purulence. No scleral icterus. PERRL. EOMI. Ears: Clear tympanic membranes bilaterally without erythema, purulence, or bulging. Nose: No gross rhinorrhea or epistaxis. Throat: No masses or lesions. Tongue midline. Mallampati class 2 Neck: Supple. Full ROM. No cervical lymphadenopathy appreciated. Respiratory: Breathing comfortably on room air: no accessory muscle use with breathing. Regular rate. Clear to auscultation bilaterally anteriorly and posteriorly. No wheezes, rales, or rhonchi. Cardiovascular: RRR without murmur, gallop, or rub. No pedal edema bilaterally. Gastrointestinal: Soft, non-tender, and non-distended to palpation. No rebound or guarding. Skin: No rashes on exposed skin. Neurologic: No focal neurologic deficits. Normal muscle tone. No tremors or abnormal muscle movementnoted. Alert and oriented to person, place, and time. Psychiatric: Mood: appropriate. Affect: full. Speech: clear, fluent, appropriate rate. Results for orders placed or performed in visit on 07/08/20 HCV Ab Scrn w/Reflex to HCV PCR, Serum Specimen: Blood, Venous Result Value Ref Range HCV Ab Screen, S Negative Negative HIV-1/-2 Ag and Ab Screen, Plasma Specimen: Blood, Venous Result Value Ref Range HIV Ag/Ab Screen, P Negative Negative HIV-1 p24 Ag Screen, P Negative Negative HIV-1 Ab Screen, P Negative Negative HIV-2 Ab Screen, P Negative Negative Lipid Panel Result Value Ref Range Cholesterol, Total, P 233 (H) mg/dL Triglycerides, Fasting, P 116 mg/dL Cholesterol, HDL, P 64 >=50 mg/dL Calculated LDL 146 (H) mg/dL Non HDL Cholesterol 169 (H) mg/dL Thyroid Function [place] Result Value Ref Range TSH, Sensitive, S 2.0 0.3 - 4.2 mIU/L 25-Hydroxyvitamin D2 and D3 Result Value Ref Range 25-Hydroxy D2 <4.0 ng/mL 25-Hydroxy D3 41 ng/mL 25-Hydroxy D Total 41 ng/mL Hemoglobin Result Value Ref Range Hemoglobin 13.0 11.6 - 15.0 g/dL ThinPrep Screen HPV Reflex Result Value Ref Range Report electronically signed by MADELYN Manrique(ASCP) I verify that I have examined all relevant slides/materials for the specimen(s) and rendered or confirmed the diagnosis. Gross Description Received specimen in a ThinPrep vial. Pap Test Source Cervical/Endocervical Interpretation Cervical/Endocervical (ThinPrep): Satisfactory for Evaluation Negative for Intraepithelial Lesion or Malignancy ASSESSMENT / PLAN 1. General Medical Examination Adult Routine health maintenance updated today as noted below. 2. Pap Smear Examination Completed today. NIL. Recommend repeat in 3 years. - ThinPrep Screen HPV Reflex 3. Anxiety Will add Wellbutrin once daily to help with possible depression and sexual side effects from Paxil 20 mg daily. Recommend follow-up in 1 month after this change. - buPROPion XL (WELLBUTRIN XL) 150 mg 24 hr tablet; Take 1 tablet (150 mg total) by mouth every morning. Dispense: 30 tablet; Refill: 0 - Family Medicine office visit (clinic); Future 4. Migraine Headache She feels that lifelong migraines have been increasing in frequency and intensity. Unfortunately, she has not tolerated triptans well in the past. She expresses concerns with looking for a new abortivemedication. She reports normal workup with ENT in the past as further evaluation for headaches. Given significant worsening, and she has never previously seen Neurology, we discussed recommendations for consultation with Neurology regarding whether change in daily preventative medication should be made, and for consultation regarding other abortive options for acute migraines. Given acute worsening in increase and intensity and frequency, we also discussed proceeding with 1 time imaging as this has never previously been completed. - Neurology - Headache consult (clinic); Future - topiramate (TOPAMAX) 100 mg tablet; Take 1.5 tablets (150 mg total) by mouth daily. Dispense: 135 tablet; Refill: 3 5. Fatigue Further evaluation for secondary laboratory causes returned within normal. Given snoring concerns, recommend proceeding with further evaluation with Sleep Medicine. - Thyroid Function [place] - 25-Hydroxyvitamin D2 and D3 - Hemoglobin 6. Snoring Given morning headaches and additional symptoms as noted above with snoring and fatigue, recommend further evaluation with Sleep Medicine for concerns for possible sleep apnea. - Sleep Medicine - General consult (clinic); Future 7. Screening Lipid Cholesterol is overall elevated, but given age, recommend proceeding with lifestyle modification at this time. - Lipid Panel 8. Screening Examination For Viral Disease Per routine health maintenance recommendations. Normal. - HCV Ab Scrn w/Reflex to HCV PCR, Serum - HIV-1/-2 Ag and Ab Screen, Plasma Selena Cordoba M.D. 07/08/2020 documented in this encounter Plan of Treatment Scheduled Referrals Name Type Priority Associated Diagnoses Order S chedule Neurology - Outpatient Referral Routine Migraine Headache Exp ected: Headache consult 07/08/2020 (clinic) (Approximate), Expires: 07/09/2023 Sleep Medicine - Outpatient Referral Routine Snoring Expe cted: General consult 07/08/2020 (clinic) (Approximate), Expires: 07/09/2023 documented as of this encounter Procedures Procedure Name Priority Date/Time Associated Diagnosis Comme nts THINPREP SCREEN HPV Routine 07/08/2020 11:15 AM Pap Smear R esults for this REFLEX CDT Examination procedure are i n the results section. HIV-1/-2 AG AND AB Routine 07/08/2020 11:08 AM Screening Re sults for this SCREEN, PLASMA CDT Examination For procedure are in Viral Disease the results section. LIPID PANEL, S Routine 07/08/2020 11:08 AM Screening Lipid Res ults for this CDT procedure are i n the results section. THYROID FUNCTION Routine 07/08/2020 11:08 AM Fatigue Resu lts for this CASCADE, S CDT procedure are i n the results section. HCV AB SCRN Routine 07/08/2020 11:08 AM Screening Results for this W/REFLEX TO HCV CDT Examination For procedure are in PCR, S Viral Disease the results section. 25-HYDROXYVITAMIN Routine 07/08/2020 11:08 AM Fatigue Res ults for this D2 AND D3, S CDT procedure are i n the results section. HEMOGLOBIN, B Routine 07/08/2020 11:08 AM Fatigue Results for this CDT procedure are i n the results section. documented in this encounter Results ThinPrep Screen HPV Reflex (07/08/2020 11:15 AM CDT) Component Value Ref Test Analysis Performed Pathologis t Range Method Time At Signature 07/13/2020 ECLR 11:46 AM CDT Report MADELYN Manrique(ASCP) 07/13/2020 E CLR electronically I verify that I have examined all relevant slides/ma terials 11:46 AM signed by for the specimen(s) and rendered or confirmed the diagnosis. CDT Gross Description Received specimen 07/13/2020 ECL R in a ThinPrep 11:46 AM vial. CDT Pap Test Source Cervical/Endocervi 07/13/2020 ECLR beatrice 11:46 AM CDT Interpretation Cervical/Endocervical ??(ThinPrep): 07/13/2020 ECLR Satisfactory for Evaluation 11:46 AM Negative for Intraepithelial Lesion or Malignancy CDT Specimen Anatomical Collection Method Collection Time Receive d Time (Source) Location / / Volume Laterality Varies 07/08/2020 11:15 07/09/2020 7:59 (Cervix/Endocerv AM CDT AM CDT ix) Narrative This result has an attachment that is no t available. Selena Cordoba M.D. LAB PAP PATHDX ORDERABLES Performing Organization Address City/State/ZIP Code Phon e Number [facility]- [address] [place] [address] [phone] [facility] [place] [address] System [address] Hemoglobin (07/08/2020 11:08 AM CDT) P athologist Signature Hemoglobin 13.0 11.6 - 15.0 07/08/2020 CNFL g/dL 11:21 AM CDT Specimen Anatomical Collection Method Collection Time Receive d Time (Source) Location / / Volume Laterality Blood (Blood, 07/08/2020 11:08 07/08/2020 Venous) AM CDT 11:12 AM CDT Selena Cordoba M.D. LAB BLOOD ADD-ON Performing Organization Address City/State/ZIP Code Phon e Number [address] [address] [place] [address] System in [address] 25-Hydroxyvitamin D2 and D3 (07/08/2020 11:08 AM CDT) athologist Signature 25-Hydroxy D2 <4.0 ng/mL 07/10/2020 SDSC 11:29 AM CDT 25-Hydroxy D3 41 ng/mL 07/10/2020 SDSC 11:29 AM CDT 25-Hydroxy D 41 ng/mL 07/10/2020 SDSC Total 11:29 AM CDT Comment: ----REFERENCE VALUE---- 25-HYDROXY D TOTAL (D2+D3) Optimum level s in the healthy population are 20-50, patients with bone disease may benefit from higher levels within this r gabi. ----ADDITIONAL INFORMATION---- This test was developed and its performa nce characteristics determined by [facility] in a manner consistent with CLIA requirements. This test has not been cleared or approved by the [place] Jennifer d and Drug Administration. Specimen Anatomical Collection Method Collection Time Receive d Time (Source) Location / / Volume Laterality Blood (Blood, 07/08/2020 11:08 07/09/2020 7:43 Venous) AM CDT AM CDT Selena Cordoba M.D. LAB BLOOD ADD-ON Performing Organization Address City/State/ZIP Code Phon e Number [facility] [address] [place] [address] [place] [address] [place] [address] Laboratory Medicine and Pathology [address] [place] Thyroid Function [place] (07/08/2020 11:08 AM CDT) P athologist Signature TSH, Sensitive 2.0 0.3 - 4.2 07/08/2020 CNFL mIU/L 12:02 PM CDT Specimen Anatomical Collection Method Collection Time Receive d Time (Source) Location / / Volume Laterality Blood (Blood, 07/08/2020 11:08 07/08/2020 Venous) AM CDT 11:11 AM CDT Selena Cordoba M.D. LAB BLOOD ADD-ON Performing Organization Address City/[facility] Code Phon e Number [address] [address] [place] [address] System in [address] (ABNORMAL) Lipid Panel (07/08/2020 11:08 AM CDT) P athologist Signature Cholesterol, 233 (H) mg/dL 07/08/2020 CNFL Total 11:42 AM CDT Comment: ----REFERENCE VALUE---- Desirable: < 200 Borderline high: 200 - 239 High: > or = 240 Triglycerides 116 mg/dL 07/08/2020 11:42 AM CDT CN [place] Comment: ----REFERENCE VALUE---- Normal: <150 Borderline high: 150-199 High: 200-499 Very high: > or =500 Cholesterol, HDL 64 >=50 mg/dL 07/08/2020 11:42 AM CD T CNFL Calculated LDL 146 (H) mg/dL 07/08/2020 11:42 AM CDT C NFL Comment: ----REFERENCE VALUE---- Desirable: <100 Above Desirable: 100-129 Borderline high: 130-159 High: 160-189 Very high: > or =190 Cholesterol, Non-HDL, Calculated 169 (H) mg/dL 021 11:42 AM CDT CNFL Comment: ----REFERENCE VALUE---- Desirable: <130 Above Desirable: 130-159 Borderline high: 160-189 High: 190-219 Very high: > or =220 Specimen Anatomical Collection Method Collection Time Receive d Time (Source) Location / / Volume Laterality Blood (Blood, 07/08/2020 11:08 07/08/2020 Venous) AM CDT 11:12 AM CDT Selena Cordoba M.D. LAB BLOOD ADD-ON Performing Organization Address City/[facility]/ZIP Code Phon e Number [address] [place] [address] [place] [address] System in [address] HIV-1/-2 Ag and Ab Screen, Plasma (07/08/2020 11:08 AM CDT) P athologist Signature HIV Ag/Ab Negative Negative 07/09/2020 ECLR Screen, P 9:16 AM CDT Comment: Negative result does not rule out HIV in fection. If exposure to HIV infection occurred <14 d ays ago, contact the laboratory to request additi on of HIV-1 RNA detection / quantification test. HIV-1 p24 Ag Screen, P Negative Negative 07/09/2020 9:16 A M CDT ECLR Comment: Negative result does not rule out HIV in fection. If exposure to HIV infection occurred <14 d ays ago, contact the laboratory to request additi on of HIV-1 RNA detection / quantification test. HIV-1 Ab Screen, P Negative Negative 07/09/2020 9:16 AM CD T ECLR Comment: Negative result does not rule out HIV in fection. If exposure to HIV infection occurred <14 d ays ago, contact the laboratory to request additi on of HIV-1 RNA detection / quantification test. HIV-2 Ab Screen, P Negative Negative 07/09/2020 9:16 AM CD T ECLR Comment: Negative result does not rule out HIV in fection. If exposure to HIV infection occurred <14 d ays ago, contact the laboratory to request additi on of HIV-1 RNA detection / quantification test. Specimen Anatomical Collection Method Collection Time Receive d Time (Source) Location / / Volume Laterality Blood (Blood, 07/08/2020 11:08 07/08/2020 9:14 Venous) AM CDT PM CDT Selena Cordoba M.D. LAB MICROBIOLOGY - BLOOD ORD ERABLES Performing Organization Address City/State/ZIP Code Phon e Number [facility]- [address] [place] [address] [phone] [facility] [place] [address] System [address] HCV Ab Scrn w/Reflex to HCV PCR, Serum (07/08/2020 11:08 AM CDT) athologist Signature HCV Ab Screen, Negative Negative 07/09/2020 ECLR S 1:09 AM CDT Comment: Biotin has been identified by the [facility] as a potential interfering substance. ??Higher concentr ations of biotin may be found in multivitamins, hair/nail supple ments, and workout supplements. ??If the result does not ma [facility] clinical observations, repeat testing after patient refrains fr om the use of supplements for at least 12 hours. Specimen Anatomical Collection Method Collection Time Receive d Time (Source) Location / / Volume Laterality Blood (Blood, 07/08/2020 11:08 07/08/2020 9:15 Venous) AM CDT PM CDT Narrative [facility] - 07/09/2020 1:09 AM CDT Specimen Information: Specimen ID: [id number] Specimen Type: Blood Specimen Collection Start Date: 07/09/19 11:08 AM Specimen Received Date: 07/08/2020 ??9:1 5 PM Specimen ID: [id number] Specimen Type: Blood Specimen Collection Start Date: 07/09/19 11:08 AM Specimen Received Date: 07/08/2020 ??9:1 4 PM Selena Cordoba M.D. LAB MICROBIOLOGY - BLOOD ORD ERABLES Performing Organization Address City/State/ZIP Code Phon e Number [facility]- [address] [place] [address] [phone] [facility] [place] [address] [address] documented in this encounter Visit Diagnoses Diagnosis General Medical Examination Adult - Prim gabbie Pap Smear Examination Anxiety Migraine Headache Fatigue Snoring Screening Lipid Screening Examination For Viral Disease documented in this encounter Additional Health Concerns Assessment Noted Time PHQ-9 Depression Total Score: 3 02/03/2020 5:39 PM CDT documented as of this encounter
--- OUTSIDE RECORDS SUMMARY | 2022-03-16 15:03 | XMS_ITS | Encounter Summary ---
:1980 Author Organization [facility] Address [address] [place] [address] Care Team Providers Name Role Phone Elsewhere, Pcp Primary Care Provider Unavailable Reason for Referral Outpatient (Routine) - Closed Specialty Diagnoses / Procedures Referred By Contact Refer red To Contact Orthopedic Surgery Sandhya Lyons APRN, [facility] C.N.P., D.N.P. [address] [place] [address] Referral ID Status Reason Start Date Expiration Date Visits Requ ested Visits Authorized [id number] Closed 01/22/2020 01/21/2021 1 1 Reason for Visit Reason Comments Follow-up Procedure Outpatient (Routine) - Closed Specialty Diagnoses / Procedures Referred By Contact Refer red To Contact Orthopedic Surgery Barbara Raya APRN, [facility] C.N[facility] D.N.P. [address] [place] [address] Referral ID Status Reason Start Date Expiration Date Visits Requ ested Visits Authorized [id number] Closed 12/27/2019 12/26/2020 1 1 Encounter Details Date Type Department Care Team Description 01/22/2020 Office Visit Department of Barbara Raya APRN, C.N[facility]P., D.N.P. [address] [place] [address] Pain Ankle Right (Primary Dx); Orthopedic Surgery in Sandhya Lyons, [place]annah BLANCHARDN.Samy., D.N.P. [address] [place] [address] Follow Up Examination Postoperative Visi t [place], [place] [address] [place] [address] Social History Tobacco Use Types [...] or relatives? How often do you attend taoist or More than 4 times per year 11/09/2020 confucianist services? Do you belong to any clubs or No 11/09/2020 organizations such as taoist groups, unions, fraternal or athletic groups, or [...] documented as of this encounter Progress Notes Sandhya Lyons, LO, C.N.P., D.N.P. - 01/22/2020 3:00 PM CDT SUBJECTIVE CHIEF COMPLAINT / REASON FOR VISIT Dulce Lei is a 39 y.o. female who presents for evaluation of Follow-up and Procedure of [facility] Ankle. HISTORY OF PRESENT ILLNESS Dulce is a pleasant 39 y.o. female who is 6 weeks s/p right ankle peroneus brevis tendon repair and right ankle Brostrom reconstruction. She had been nonweightbearing on her right lower extremity and using a knee scooter to get around up until about a week ago. She admits that she has been walking on her ankle in her Cam walker since that time. She denies any new or significant ankle pain. She noticedsome green/yellow drainage from her incision yesterday. She denies any increased redness, swelling, or pain. She denies any fevers or chills. OBJECTIVE PHYSICAL EXAMINATION General: Patient is in no distress. Capable of full communication without difficulty. Patient is polite and cooperative. Extremities: Right ankle surgical incision is healing with a small area of scab still present. Thereis no open areas noted along the incision. No additional fluid could be expressed from the incision.No erythema, increased swelling or warmth noted about the ankle. She is able to plantar and dorsiflex her ankle without pain. No neurovascular compromise distally. Neuro: Alert and oriented x3. ASSESSMENT / PLAN #1 Pain Ankle Right #2 Follow Up Examination Postoperative Visit Ezequiel is a pleasant 39-year-old female who is 6 weeks status post right ankle peroneus brevis tendon repair and right ankle Brostrom reconstruction. At this point in time, we would have typically slowlyincrease her weight-bearing status over the next couple weeks to full weight-bearing in her Cam walker however she has been walking, full weight-bearing, for the past week. She will continue to do so in plan to see physical therapy as soon as possible to help her wean out of her Cam walker over the next couple weeks. She was advised to wean slowly as to not disrupt her recent surgery. Continue aotv-soe-bwpdsul remedies for pain as needed. I suspect the drainage from her incision was related to a small suture abscess, I do not suspect a cellulitis/infection at this time. She will continue to closelymonitor for signs and symptoms of infection and follow-up urgently if any arise. She was instructed to avoid putting any ointments, creams, lotions on her incision or submerging her incision under water at this time. We will otherwise plan to see her back in the next 2-3 weeks when she is fully weanedout of her Cam walker, or sooner with concerns. She is in agreement with this plan, all of her questions were answered. documented in this encounter Plan of Treatment Scheduled Referrals Name Type Priority Associated Order Schedule Diagnoses Orthopedic Surgery Outpatient Referral Routine Ex pected: Post Op (clinic) 02/12/2020, Expires: 01/21/2023 documented as of this encounter Visit Diagnoses Diagnosis Pain Ankle Right - Primary Follow Up Examination Postoperative Visi t documented in this encounter Additional Health Concerns Assessment Noted Time PHQ-9 Depression Total Score: 13 12/25/2019 10:30 AM C DT documented as of this encounter Care Teams Correction Warden Relationship Specialty Start Date End Date Elsewhere, Pcp PCP - General Internal Medicine 06/25/19 03/18/20 documented as of this encounter
--- OUTSIDE RECORDS SUMMARY | 2022-03-16 15:03 | XMS_ITS | Encounter Summary ---
:1980 Author Organization [facility] Address [address] [place] [address] Care Team Providers Name Role Phone Unavailable Primary Care Provider Unavailable Encounter Details Date Type Department Care Team Description 07/17/2020 Orders Only [facility] Sa camille Alvarez M.D. [address] [place], [place] [phone] (Wo rk) Social History Tobacco Use Types [...]
--- OUTSIDE RECORDS SUMMARY | 2022-03-16 15:03 | XMS_ITS | Encounter Summary ---
:1980 Author Organization [facility] Address [address] [place] [address] Care Team Providers Name Role Phone Unavailable Primary Care Provider Unavailable Reason for Visit Outpatient (Routine) - Closed Specialty Diagnoses / Procedures Referred By Contact Refer red To Contact Neurology Diagnoses Migraine Headache Selena Cordoba M.D. [address] [address] Referral ID Status Reason Start Date Expiration Date Visits Requ ested Visits Authorized [id number] Closed 07/08/2020 07/08/2021 1 1 Encounter Details Date Type Department Care Team Description 07/13/2020 Comprehensive Visit Department of Ricki Judd Migrain e Headache Neurology in [place], [place] [address] [facility] [address] [place] [phone] Social History Tobacco Use Types Packs/Day Years [...] More than 4 times per year 11/09/2020 quaker services? Do you belong to any clubs or No 11/09/2020 organizations such as alevism groups, unions, fraVoyageByMe or athletic groups, or school groups? How [...] on file documented as of this encounter Consult Notes Ricki Judd M.D. - 07/13/2020 3:30 PM CDT SUBJECTIVE Referring Provider: Selena Cordoba M.D. CHIEF COMPLAINT / REASON FOR VISIT Dulce Lei is a 40 y.o. female who presents for evaluation of 1. Migraine Headache HISTORY OF PRESENT ILLNESS I did not obtain collateral history from others in the office today. She has a longstanding history of unprovoked headaches since she was a teenager. Her father has a history of migraine. Headaches have worsened in the last 2 months and she attributes this to stress. She now reports at least 15 days per month in the last few months. Headaches start while awake or asleep and can be precipitated by dehydration and missing her caffeine. Headaches start in both frontal regions and can stay mild or gradually get to be severe. When severe, headaches can be associated with nausea, vomiting, sensitivity to light and sound and aggravation by physical activity but no migraineaura. Without treatment severe headaches will last all day until she gets treatment. She currently denies any fever, Valsalva induced headache, orthostatic headache, double vision, pulsatile tinnitus or transient visual obscurations. In the last few months she has felt excessively tired and she snores. She has been referred to Sleep Clinic for this but this is still pending. She had a brain MRI July 09, 2020 which showed no clear structural cause for headache per our neuroradiologist. She had a normal TSH July 08, 2020. She has been on topiramate for a long time and in the past this has helped her headaches. Recently topiramate was increased to 150 mg a day last week and she tolerates it well. In the past higher dose of topiramate gave her hallucinations. She uses ibuprofen as needed which is enough to control mild-to- moderate headache but not severe ones. In the past she has tried Excedrin, Tylenol, Aleve, Imitrex and Zofran none of them helped. I have not reviewed outside records for this visit. I have directly reviewed imaging studies for this visit. I reviewed her brain MRI from July 09, 2020 which showed no clear structural cause for headache. The following portions of the patient's history were reviewed and updated as appropriate: allergies,current medications, family history, medical history, social history, surgical history and problem list. Ten point review of systems was completed and was negative other than as noted in the HPI. OBJECTIVE I have reviewed vital signs as recorded in the EPIC record. In summary: She has a normal neurologic exam. ASSESSMENT / PLAN #1 Chronic migraine without aura I agree with referral to Sleep Clinic to rule out sleep apnea as a possible contributor to her fatigue, snoring, and possibly her worsening of migraine. Other than this at present I do not see the need for further investigations. For migraine prophylaxis I recommend to continue topiramate 150 mg daily for 2-3 months. If by then headaches have not improved then consideration could be given to either atenolol, Botox, or Emgality in that order of preference. Those could be in addition to topiramate if it is assessed that topiramate has given some benefit but if topiramate appears to be ineffective then it may be best to switch topiramate to the other migraine preventive. With atenolol I typically start 25 mg daily and increase by 25 mg per week if tolerated to a goal dose of 25 mg 3 times a day and I would give it at least 3 months before giving up on it. If Botox would be desired I would be happy to coordinate those in our cl inic. An oral prophylactic should be tried one at a time for at least three months at the highest tolerated dose (within the above specified goal dose range) before believing it has failed. A successful preventive is commonly defined as one that decreases the headache frequency and/or intensity by approximately 50%. Once a successful preventive is found, I suggest continuing it for at least 6-24 months before attempting to gradually taper off it. For the acute treatment of mild to moderate headaches, I recommend to continue ibuprofen as needed but this should not be used more than 14 days a month. For headaches that do not respond to this, or for severe headaches from onset, I recommend 10 mg of oral rizatriptan at onset and this can be repeated every 2 hours if needed (maximum 30 mg/24 hours) and this should not be used more than 9 days a month (2 days per week) to prevent medication overuse headache. For nausea associated with migraine, I recommend prochlorperazine 10 mg orally as needed, limiting its use to no more than 9 days a month (2days per week). The patient will follow the above recommendations with Dr. Cordoba but I would be happy to see her back if needed. PATIENT EDUCATION Ready to learn, no apparent learning barriers were identified; learning preferences include listening. Explained diagnosis and treatment plan; patient expressed understanding of the content. documented in this encounter Plan of Treatment Not on filedocumented as of this encounter Visit Diagnoses Diagnosis Migraine Headache documented in this encounter Additional Health Concerns Assessment Noted Time PHQ-9 Depression Total Score: 17 07/13/2020 3:09 PM CD T documented as of this encounter
--- OUTSIDE RECORDS SUMMARY | 2022-03-16 15:03 | XMS_ITS | Encounter Summary ---
:1980 Author Organization [facility] Address [address] [place] [address] Care Team Providers Name Role Phone Unavailable Primary Care Provider Unavailable Reason for Visit Reason Comments COVID Inquiry Encounter Details Date Type Department Care Team Description 06/30/2020 Clinical Communication Department of Wendy Rouse COVID Inquiry Medicine, Jhonatan Albarado M.D. [address] [address] [place], [place] [phone] (Work) [phone] Social History Tobacco Use Types Packs/Day Years [...] or relatives? How often do you attend yazdanism or More than 4 times per year 11/09/2020 scientologist services? Do you belong to any clubs or No 11/09/2020 organizations such as yazdanism groups, unions, fraternal or athletic groups, or [...] this encounter Miscellaneous Notes Telephone Encounter - Earlene Garcia - 06/30/2020 7:48 AM CDT What is the purpose of the call?: Standard Appointment Process Standard Appointment Process Have you tested positive for COVID-19 in the last 20 days OR do you have a pending COVID-19 test because you had symptoms?: No, neither apply What region is the appointment being requested?: Less than 20 days [facility], [facility] or [facility] In the past 14 days are any of the following symptoms new to you and not related to an existing health condition?: No symptoms noted In the past 14 days have you had close contact* with a person who has a LABORATORY CONFIRMED case ofCOVID-19?: No exposure noted, follow appt process (End Screening) Testing Recommendation Endpoint Is testing recommended? : Not recommended to test Plan: Endpoint recommendation: Followed regional OTG *Reminder if sending patient for testing in [facility] or [facility], route encounter to the correct testing pool. documented in this encounter Plan of Treatment Not on filedocumented as of this encounter Visit Diagnoses Not on filedocumented in this encounter Additional Health Concerns Assessment Noted Time PHQ-9 Depression Total Score: 3 02/03/2020 5:39 PM CDT documented as of this encounter
--- OUTSIDE RECORDS SUMMARY | 2022-03-16 15:03 | XMS_ITS | Encounter Summary ---
:1980 Author Organization [facility] Address [address] [place] [address] Care Team Providers Name Role Phone Unavailable Primary Care Provider Unavailable Reason for Visit MRI/CAT/PET Scan (Routine) - Closed Specialty Diagnoses / Procedures Referred By Contact Refer red To Contact Radiology Diagnoses Migraine Headache Selena Cordoba M.D. [facility] Region Procedures MR Brain without and with IV Contrast MR Brain without IV Contrast PA MRI BRAIN WO CNTRST HC MRI BRAIN WO CNTRST PA MRI BRAIN WO/W CNTRST [address] [place] [phone] Referral ID Status Reason Start Date Expiration Date Visits Requ ested Visits Authorized [id number] Closed 07/08/2020 07/08/2021 1 1 Encounter Details Date Type Department Care Team Description 07/09/2020 Hospital Encounter Department of Selena Cordoba [facility] in Jhonatan Albarado M.D. [address] [phone] Social History Tobacco Use Types Packs/Day [...] 11/09/2020 organizations such as zoroastrianism groups, unions, fraCycle or athletic groups, or school groups? How [...] Date buPROPion XL (WELLBUTRIN Take 1 tablet (150 30 tablet 0 10/22/2020 XL) 150 mg 24 hr mg total) by mouth tabletIndications: every morning. Anxiety cetirizine (ZyrTEC) 5 mg Take 1 tablet (5 mg 90 tablet 3 10/22/2020 tablet total) by mouth daily. cholecalciferol, vitamin Take 1,000 Units by 0 07/20/2021 D3, (cholecalciferol) mouth daily. 1,000 Unit tablet PARoxetine (PAXIL) 20 mg Take 1 tablet (20 mg 90 tablet 3 1 10/22/2020 tabletIndications: total) by mouth Anxiety daily. psyllium seed, with Take by mouth daily. 0 06/28/2021 dextrose, (FIBER ORAL) topiramate (TOPAMAX) 100 Take 1.5 tablets 135 tablet 3 07/0810/22/2020 mg tabletIndications: (150 mg total) by Migraine Headache mouth daily. UNABLE TO FIND Med Name: Thrive, 0 vitamins, shakes, and patches documented as of this encounter Plan of Treatment Not on filedocumented as of this encounter Procedures Procedure Name Priority Date/Time Associated Comments Diagnosis MR BRAIN WITHOUT RAD - Routine 07/09/2020 10:00 Migraine Headache R esults for this AND WITH IV (most inpatients AM CDT procedure a re in CONTRAST and all the results outpatients) section. documented in this encounter Results MR Brain without and with IV Contrast (07/09/2020 10:00 AM CDT) Anatomical Region Laterality Modality Head, Brain, Neuroradiology RST LOS, Neuroradiology ARZ N/A Magnetic Resonance LOS, Neuroradiology FLA LOS Specimen (Source) Anatomical Collection Method Collection Time Re ceived Time Location / / Volume Laterality 07/09/2020 10:31 AM CDT Impressions 07/09/2020 10:38 AM CDT No finding to account for headaches. Narrative 07/09/2020 10:38 AM CDT EXAM: MR BRAIN WITHOUT AND WITH IV CONTRAST COMPARISON: Limited comparison to sinus CT 08/23/2017. FINDINGS: No abnormal intracranial signa l, enhancement, or mass. No cerebellar tonsillar ectopia. Calvarium and skull b ase are grossly unremarkable. Orbits are grossly unremarkable. Postoperative pinto ges paranasal sinuses. Procedure Note Herrera Hebert M.D. - 07/09/2020Format ting of this note might be different from the original. EXAM: MR BRAIN WITHOUT AND WITH IV CONTR AST COMPARISON: Limited comparison to sinus CT 08/23/2017. FINDINGS: No abnormal intracranial signa l, enhancement, or mass. No cerebellar tonsillar ectopia. Calvarium and skull b ase are grossly unremarkable. Orbits are grossly unremarkable. Postoperative pinto ges paranasal sinuses. IMPRESSION: No finding to account for headaches. Selena MIGUEL MRI PROCEDURES documented in this encounter Visit Diagnoses Diagnosis Migraine Headache documented in this encounter Administered Medications Inactive Administered Medications - up to 3 most recent administrations Medication Order MAR Action Action Date Dose Rate Site gadobutrol injection 9 mL (GADAVIST) Given 07/09/2020 9:22 AM CDT 9 mL 9 mL, intravenous, Once in imaging, contrast, Starting on Roxie 07/09/20 at 0904, For 1 dose sodium chloride 0.9 % injection 10 mL Given 07/09/2020 9:59 AM CDT 10 mL 10 mL, intravenous, Once in imaging, line care, Starting on Roxie 07/09/20 at 0921, For 1 dose documented in this encounter Additional Health Concerns Assessment Noted Time PHQ-9 Depression Total Score: 3 02/03/2020 5:39 PM CDT documented as of this encounter
--- OUTSIDE RECORDS SUMMARY | 2022-03-16 15:03 | XMS_ITS | Encounter Summary ---
:1980 Author Organization [facility] Address [address] [place] [address] Care Team Providers Name Role Phone Unavailable Primary Care Provider Unavailable Reason for Visit Reason Comments Migraine SINCE 4 AM Encounter Details Date Type Department Care Team Description 10/01/2020 Emergency [facility] Jose Melissa, Headache Unspecified Department P.A.-C. (Primary Dx) [address] [address] [address] [place], [place] [phone] Social History Tobacco Use Types Packs/Day [...] More than 4 times per year 11/09/2020 jainism services? Do you belong to any clubs [...] to pay for the very basics like [employer] hat hard 11/09/2020 food, housing, medical care, [...] Sign Reading Time Taken Comments Blood Pressure 132/86 10/01/2020 6:30 AM CDT Pulse 56 10/01/2020 6:30 AM CDT Temperature - - Respiratory Rate - - Oxygen Saturation 97% 10/01/2020 6:30 AM CDT Inhaled Oxygen Concentration - - Weight 96.2 kg (212 lb 1.3 oz) 10/01/2020 7:00 AM CDT Height - - Body Mass Index 38.54 07/08/2020 9:36 AM CDT documented in this encounter Discharge Instructions AttachmentsThe following attachments cannot be sent through Care Everywhere. Recurrent Migraine Headache [id number] (Canadian)documented in this encounter Medications at Time of [...] (cholecalciferol) 1,000 by mouth daily. Unit tablet PARoxetine (PAXIL) 20 mg Take 1 tablet (20 90 tablet 3 01/1610/22/2020 tabletIndications: Anxiety mg total) by mouth daily. prochlorperazine Take 1 tablet (10 20 tablet 2 07/13/2020 0 11/09/2020 (COMPAZINE) 10 mg tablet mg total) by mouth every 6 (six) hours as needed for nausea. MAX 9 days/month. psyllium seed, with Take by mouth 0 dextrose, (FIBER ORAL) daily. rizatriptan CROZE CUTTER HELPER Take 1 tablet (10 18 tablet 3 07/13/2020 (MAXALT-CROZE CUTTER HELPER) 10 mg mg total) by disintegrating tablet mouth every 2 (two) hours as needed for migraine. MAX 30mg/day. MAX 9 days/month. topiramate (TOPAMAX) 100 mg Take 1.5 tablets 135 tablet 3 10/22/2020 tabletIndications: Migraine (150 mg total) by Headache mouth daily. UNABLE TO FIND Med Name: Thrive, 0 vitamins, shakes, and patches documented as of this encounter ED Notes Jose Melissa P.A.-C. - 10/01/2020 6:47 AM CDT SUBJECTIVE CHIEF COMPLAINT/REASON FOR VISIT Migraine (SINCE 4 AM) HISTORY OF PRESENT ILLNESS 5-year-old female with history of migraine headaches presents ER with complaints of migraine headache that began earlier this morning. She denies new or changes symptoms compared to previous migraines.She states that IM injections the ER today clear helpful. She has not found anything else seems to make the symptoms better or worse. REVIEW OF SYSTEMS Constitutional: Negative for activity [...] Psychiatric/Behavioral: Negative for confusion. OBJECTIVE Initial Vitals Temp Pulse Rate Heart Rate Resp Blood Pressure SpO2 -- 10/01/2030 -- -- 10/01/2030 10/01/20629 (!) 56 132/86 97 % Pain Score 10/01/20 0618 8 PHYSICAL EXAMINATION Constitutional: Nursing note and vitals reviewed. HENT: Head: Normocephalic and atraumatic. Nose: Nose normal. Mouth/Throat: Oropharynx is clear and moist. Mucous membranes are moist. Eyes: Pupils are equal, round, and [...] normal strength and intact cranial nerves. Displays abnormal reflex. GCS eye subscore is 4. GCS verbal subscore is5. GCS motor subscore is 6. Normal speech. Has unimpaired heel to kumar. Gait normal. Skin: Skin is warm. ASSESSMENT/PLAN IMPRESSION AND PLAN Patient states today's headache is similar to previous episodes. Denies this being the worst headache of her life. She requests IM injections of Toradol, Benadryl, Phenergan she states are helpful for her typically. She is well established with PCP and follow-up with the same. She will return to the ER if new symptoms develop, current symptoms worsen, symptoms fail to improve, patient becomes concerned. Based on history and physical exam I do not suspect intracranial bleed, meningitis. Patient discharged in good condition. I reviewed previous medical records including documentation from previous visits and radiology images/report. Final Diagnoses: as of Oct 01 648 Headache Unspecified Jose Melissa P.A.-C. 10/01/20648 Angelina Sparks R.N. - 10/01/2020 6:20 AM CDT Patient states she woke up at 4am with a migraine. Patient states its one of the worst ones. patient states she took ibuprofen along with benadryl however patient states she vomited them up. Patient states her vision is fine, and does not have floaters in her vision. Patient states her pain is 8/10.Provider notified patient has arrived. Angelina Sparks R.N. 10/01/20 0634 documented in this encounter Plan of Treatment Not on filedocumented as of this encounter Visit Diagnoses Diagnosis Headache Unspecified - Primary documented in this encounter Administered Medications Inactive Administered Medications - up to 3 most recent administrations Medication Order MAR Action Action Date Dose Rate Site diphenhydrAMINE injection Given 10/01/2020 6:56 50 mg Left Ventrogluteal 50 mg (BENADRYL) AM CDT 50 mg, intramuscular, Once, On Roxie 10/01/20 at 0645, For 1 dose ketorolac injection 30 mg Given 10/01/2020 6:53 AM CDT 30 mg Right Ventrogluteal (TORADOL) 30 mg, intramuscular, Once, On Roxie 10/01/20 at 0645, For 1 dose, Adult IV push rate: Over 15 seconds. Peds IV push rate: Over 1 minute. 60 mg dose only for IM, not recommended for IV. promethazine injection 25 mg Given 10/01/2020 6:50 AM CDT 25 mg Right Ventrogluteal (PHENERGAN) 25 mg, intramuscular, Once, On Roxie 10/01/20 at 0645, For 1 dose documented in this encounter Active and Recently Administered Medications Times are shown in CDT. Scheduled Medication Order 09/29/2020 09/30/2020 10/01/2020 diphenhydrAMINE injection 50 mg (BENADRYL) (COMPLETED) 0656 (Given - Provider: Angelina Sparks R.N.) 50 mg, intramuscular, Once, On Roxie 10/01/20 at 0645, For 1 dose ketorolac injection 30 mg (TORADOL) (COMPLETED) 0653 (Given - Provider: Angelina Sparks R.N.) 30 mg, intramuscular, Once, On Roxie at 0645, For 1 dose, Adult IV push rate: Over 15 seconds. Peds IV push rate: Over 1 minute. 60 mg dose only for IM, not recommended for IV. promethazine injection 25 mg (PHENERGAN) (COMPLETED) 0650 (Given - Provider: Angelina Sparks R.N.) 25 mg, intramuscular, Once, On Roxie 10/01/20 at 0645, For 1 dose documented in this encounter Additional Health Concerns Assessment Noted Time PHQ-9 Depression Total Score: 17 07/13/2020 3:09 PM CD T documented as of this encounter
--- OUTSIDE RECORDS SUMMARY | 2022-03-16 15:03 | XMS_ITS | Encounter Summary ---
:1980 Author Organization [facility] Address [address] [place] [address] Care Team Providers Name Role Phone Unavailable Primary Care Provider Unavailable Encounter Details Date Type Department Care Team Description 07/30/2020 Clinical Communication Department of [facility] Wendy Cordoba, Medicine, [place] [facility], in [address] [phone] Social History Tobacco Use Types Packs/Day Years [...] or relatives? How often do you attend uatsdin or More than 4 times per year 11/09/2020 sikh services? Do you belong to any clubs or No 11/09/2020 organizations such as uatsdin groups, unions, fraternal or athletic groups, or [...] pay for the very basics like [employer] hat hard 11/09/2020 food, housing, medical care, [...] place to sleep or slept in a assisted (including now)? Education Answer Date Recorded What is the highest level of school you have Some college, n o degree 11/17/2019 completed or the highest degree you have received? Sex Assigned at Date Recorded Not on file documented as of this encounter Miscellaneous Notes Telephone Encounter - Selena Cordoba M.D. - 07/31/2020 9:22 AM CDT New order for [place] signed. Thank you. Selena Cordoba M.D. Telephone Encounter - Cher Ewing, L.P.N. - 07/31/2020 8:00 AM CDT Please review. Pended order. Telephone Encounter - Kaylee Girard - 07/30/2020 4:27 PM CDT New order for sleep consult needs to be ordered. Current order states liza, but not ordered correctly. documented in this encounter Plan of Treatment Not on filedocumented as of this encounter Visit Diagnoses Diagnosis Snoring - Primary documented in this encounter Additional Health Concerns Assessment Noted Time PHQ-9 Depression Total Score: 17 07/13/2020 3:09 PM CD T documented as of this encounter
--- OUTSIDE RECORDS SUMMARY | 2022-03-16 15:03 | XMS_ITS | Encounter Summary ---
:1980 Author Organization [facility] Address [address] [place] [address] Care Team Providers Name Role Phone Elsewhere, Pcp Primary Care Provider Unavailable Encounter Details Date Type Department Care Team Description 10/06/2020 Orders Only [facility] Kadi Diaz[address] [phone] Social History Tobacco Use [...] How often do you attend buddhism or More than 4 times per year 11/09/2020 hoahaoism services? Do you belong to any clubs or No 11/09/2020 organizations such as buddhism groups, unions, fraternal [...] documented as of this encounter Care Teams Novelty Chain Maker Relationship Specialty Start Date End Date Elsewhere, Pcp PCP - General Internal Medicine 08/31/21 documented as of this encounter
--- OUTSIDE RECORDS SUMMARY | 2022-03-16 15:03 | XMS_ITS | Encounter Summary ---
:1980 Author Organization [facility] Address [address] [place] [address] Care Team Providers Name Role Phone Unavailable Primary Care Provider Unavailable Reason for Visit Reason Comments Migraine Pt reports this being one of the worst migraines that shes had. started at 10am. follows normal pattern per pt reports. Encounter Details Date Type Department Care Team Description 07/28/2020 Emergency [place] [facility] neena Frank APRN, C.N.P. [address] [place] [address] Migraine Headache Department Zane Atkinson, C.N.P. [address] [place] [address] Common (Primary Dx) [address] [place] [phone] Social History Tobacco Use Types Packs/Day Years [...] Reading Time Taken Comments Blood Pressure 110/72 07/28/2020 7:00 PM CDT Pulse 69 07/28/2020 7:15 PM CDT Temperature - - Respiratory Rate 19 07/28/2020 7:15 PM CDT Oxygen Saturation 97% 07/28/2020 7:15 PM CDT Inhaled Oxygen Concentration - - Weight 94 kg (207 lb 3.7 oz) 07/28/2020 5:48 PM CDT Height - - Body Mass Index 37.65 07/08/2020 9:36 AM CDT documented in this encounter Discharge Instructions Discharge InstructionsZane Atkinson, C.N.P. - 07/28/2020 7:15 PM CDT I would recommend decreasing any external stimuli, such as increased noise and lights with your migraine attack. He could also try drinking caffeine in addition to your migraine medication. Can follow-up with your primary providers within the next 2 days for further evaluation as needed. Return to the ED if you develop slurred speech, double vision, fever, nausea vomiting that you cannot control, sudden intense 01/24 headache, or any other concerns. AttachmentsThe following attachments cannot be sent through Care Everywhere. Migraine Headache Htdk-is-Liey (Georgian)documented in this encounter Medications at Time of Discharge Medication Sig Dispensed Refills Start Date End Date buPROPion XL (WELLBUTRIN Take 1 tablet 30 tablet 0 07/09/19 21 10/22/2020 XL) 150 mg 24 hr (150 mg total) by tabletIndications: Anxiety mouth every morning. cetirizine (ZyrTEC) 5 mg Take 1 tablet [...] mouth 0 dextrose, (FIBER ORAL) daily. rizatriptan HUMAN RESOURCES ASSISTANT MANAGER Take 1 tablet (10 18 tablet 3 07/13/2020 (MAXALT-HUMAN RESOURCES ASSISTANT MANAGER) 10 mg mg total) by disintegrating tablet mouth every 2 (two) hours as needed for migraine. MAX 30mg/day. MAX 9 days/month. topiramate (TOPAMAX) 100 mg Take 1.5 tablets 135 tablet 3 10/22/2020 tabletIndications: Migraine (150 mg total) by Headache mouth daily. UNABLE TO FIND Med Name: Thrive, 0 vitamins, shakes, and patches documented as of this encounter ED Notes Zane Atkinson, C.N.P. - 07/28/2020 7:13 PM CDT Care of patient transferred to ri by Mitchel. Disposition pending reassessment. Patient presents for migraine headache. She denies any sudden onset the thunderclap headache. She reports migraine gradual and is her typical migraine. She did improve with treatment in the ED and reports her pain is now a 3/10. She is comfortable with discharge at this time. Neurologically in tact. Low suspicion for signs suggestive for subarachnoid hemorrhage or stroke at this time. Plan: Patient does have medication for migraine headache at home. Plan is discharge patient home with recommendation for supportive care. Advised on strict return precaution. She states understanding. VITAL SIGNS BP 110/72 Pulse 65 Resp 18 Wt 94 kg SpO2 97% BMI 37.65 kg/m?? ED Course as of Jul 28 1914e Jul 28, [id number] Patient assessed. She is alert and oriented x4 at this time. No acute respiratory distress. Stable vital signs. She does endorse her headache has decreased to a 5/10 at this time. She states she is on her menstrual cycle at this time and uses protection. She denies being . 1908 SARS CoV-2, PCR, Rapid, V: Undetected Final Diagnoses: as of Jul 28 1914 Migraine Headache Common Zane Atkinson, C.N.P. 07/28/201915 Mitchel Frank, C.N.P. - 07/28/2020 5:51 PM CDT SUBJECTIVE CHIEF COMPLAINT/REASON FOR VISIT Migraine (Pt reports this being one of the worst migraines that shes had. started at 10am. follows normal pattern per pt reports. ) HISTORY OF PRESENT ILLNESS Patient pleasant 40-year-old female coming for evaluation migraine. Patient states that this is verytypical of her migraine but this is 1 of the worst ones that she has ever had. She has not take anything at home to try to break it. This is very typical of her migraine pattern. She denies any thunderclap headache. She does have photophobia nausea and vomiting. She does appear in moderate distress secondary to her pain. History provided by: Patient REVIEW OF SYSTEMS Constitutional: Negative for diaphoresis, fatigue and fever. Eyes: Positive for photophobia. Gastrointestinal: Positive for nausea and vomiting. Neurological: Positive for headaches. Negative for syncope, weakness and numbness. Hematological: Does not bruise/bleed easily. All other systems reviewed and are negative. OBJECTIVE Initial Vitals [07/28/20 1747] Temp Pulse Heart Rate Resp BP SpO2 -- -- -- -- -- -- Pain Score 9 PHYSICAL EXAMINATION Constitutional: Nursing note and [...] to light. Periorbital area normal appearing. Neck: Normal range of motion and full passive range of motion without pain. Neck supple. Cardiovascular: Normal rate and normal peripheral perfusion. PMI is not displaced. Pulses are palpable. Pulses are no weak pulses. Capillary refill: takes less than 3 seconds, Pulmonary/Chest: Effort normal. There is normal air entry. No apnea and no tachypnea. No respiratorydistress. Abdominal: Non-distended. Musculoskeletal: Normal range of motion. No tenderness, deformity or edema. Neurological: Alert, oriented to person, place, and [...] IMPRESSION AND PLAN Patient pleasant 32-year-old female coming for evaluation of migraine. She will be given a migraine cocktail including Reglan Benadryl and Toradol IM as she does not want an IV at this time. We will continue to monitor and see if she improves. She was signed out to Mitchel Leal NP, C.NLashawnP. 07/28/20 7567 documented in this encounter Plan of Treatment Not on filedocumented as of this encounter Procedures Procedure Name Priority Date/Time Associated Comments Diagnosis SARS CORONAVIRUS 2, STAT 07/28/2020 6:38 PM Re sults for this PCR RAPID, V CDT procedure are i n the results section. documented in this encounter Results SARS Coronavirus 2, PCR Rapid, V Symptomatic (07/28/2020 6:38 PM CDT) [facility] Method Time Signature SARS CoV-2, Undetected Undetected 07/28/2020 CNFL PCR, Rapid, V 7:08 PM CDT Comment: ----ADDITIONAL INFORMATION---- This RT-PCR test was performed using the Chris SARS-CoV-2 and Influenza A/B Reagent assay from [employer], which has received Emergency Use Authori zation(EUA) by the U.S. Food and Drug Administration . Fact sheets for this Emergency Use Autho rization (EUA) assay can be found at the following link s: For Healthcare Providers: https://www.fda.gov/media/042551/downloa d For Patients: https://www.fda.gov/media/039400/downloa d SARS Coronavirus 2, Source, Rapid Swab, Nasopharynx 07/28/2020 6:45 PM CDT CNFL Specimen Anatomical Collection Method Collection Time Receive d Time (Source) Location / / Volume Laterality Varies 07/28/2020 6:38 PM 6:45 (Nasopharynx) CDT PM CDT [place] [facility] [place] C.N.P. LAB MICROBIOLOGY - GENERAL O RDERABLES Performing Organization Address City/State/ZIP Code Phon e Number [id number]- [address] [place] [id number] [place] [address] System [address] documented in this encounter Visit Diagnoses Diagnosis Migraine Headache Common - Primary documented in this encounter Administered Medications Inactive Administered Medications - up to 3 most recent administrations Medication Order MAR Action Action Date Dose Rate Site ketorolac injection 15 mg (TORADOL) Given 07/28/2020 5:57 PM CDT 15 mg 15 mg, intravenous, Once, On e 07/28/20 at 1749, For 1 dose, Adult IV push rate: Over 15 seconds. Peds IV push rate: Over 1 minute. 60 mg dose only for IM, not recommended for IV. metoclopramide injection 10 mg (REGLAN) Given 07/28/2020 5:59 PM CDT 10 mg 10 mg, intravenous, Once, On Mon07/28/20 at 1749, For 1 dose documented in this encounter Active and Recently Administered Medications Times are shown in CDT. Scheduled Medication Order 07/26/2020 07/27/2020 07/28/2020 diphenhydrAMINE injection 25 mg (BENADRYL) 175 (Not Given - Provider: Garrett Drake R.N. - Reason: Other - Comment: not given per provider, pt took benadryl at home) 25 mg, intravenous, Once, e 07/28/20 at 1749, For 1 dose ketorolac injection 15 mg (TORADOL) (COMPLETED) 175 (Given - Provider: Garrett Drake R.N. - Comment: given IM per provider, left ventrogluteal) 15 mg, intravenous, Once, On Mon07/28/20 at 1749, For 1 dose, Adult IV push rate: Over 15 seconds. Peds IV push rate: Over 1 minute. 60 mg dose only for IM, not recommended for IV. metoclopramide injection 10 mg (REGLAN) (COMPLETED) 175 (Given - Provider: Garrett Drake, R.N. - Comment: given IM per provider, right dorsogluteal) 10 mg, intravenous, Once, On Mon07/28/20 at 1749, For 1 dose NaCl 0.9 % bolus 1,000 mL 1804 ( Not Given - Provider: Garrett Drake, R.N. - Reason: Patient/family refused) 1,000 mL, intravenous, at 2,000 mL/hr, A dminister over 30 Minutes, Once, e 07/28/20 at 1749, For 1 dose, FOR HYDRATION documented in this encounter Additional Health Concerns Infection Onset Date Last Indicated Resolved Time COVID19 Pending 07/28/2020 07/28/2020 07/28/2020 7:08 PM CDT Assessment Noted Time PHQ-9 Depression Total Score: 17 07/13/2020 3:09 PM CD T documented as of this encounter
--- OUTSIDE RECORDS SUMMARY | 2022-03-16 15:03 | XMS_ITS | Encounter Summary ---
:1980 Author Organization [facility] Address [address] [place] [address] Care Team Providers Name Role Phone Unavailable Primary Care Provider Unavailable Reason for Visit Reason Comments Medication Problem Encounter Details Date Type Department Care Team Description 03/19/2020 Clinical Communication [facility] [address] Kelle Byrne Medication Problem [facility], Pharm.D., [address] [place] [place] [phone] Social History Tobacco Use Types Packs/Day Years [...] or relatives? How often do you attend hindu or More than 4 times per year 11/09/2020 congregation services? Do you belong to any clubs or No 11/09/2020 organizations such as hindu groups, unions, fraternal or athletic groups, or [...] to pay for the very basics like [employer] hat hard 11/09/2020 food, housing, medical care, [...] Telephone Encounter - Selena Cordoba M.D. - 03/19/2020 12:27 PM CST Okay to fill 10mg if this is what was filled in the past. Selena Cordoba M.D. ESS [employer]ER Telephone Encounter - Kelle Mancera, Pharm.D., R.Ph. - 03/19/2020 9:53 AM HARNESS PLACER Please route response back to P [facility] ?? We received a prescription for cetirizine 5mg. Based on notes in Epic, it appears that she has used 10mg daily in the past. Did you want her to have 5mg or 10mg tablets? ?? Thank you, [facility] - Mail Order ESS [employer]ACER documented in this encounter Plan of Treatment Not on filedocumented as of this encounter Visit Diagnoses Not on filedocumented in this encounter Additional Health Concerns Assessment Noted Time PHQ-9 Depression Total Score: 3 02/03/2020 5:39 PM CDT documented as of this encounter
--- OUTSIDE RECORDS SUMMARY | 2022-03-16 15:03 | XMS_ITS | Encounter Summary ---
:1980 Author Organization [facility] [place] [facility] Address [address] [place] [address] Care Team Providers Name Role Phone Elsewhere, Pcp Primary Care Provider Unavailable Reason for Visit Reason Comments Post-op PERONEUS BREVIS TENDON REPAI R FOOT-Right ankle peroneus brevis tendon repair, brostrom repair 12/11/19. Albino chan is here with post op concern of recent increased pain Encounter Details Date Type Department Care Team Description 01/30/2020 Office Visit Department of Sandhya Lyons, Pain Ankl e Right (Primary Dx); Orthopedic Surgery in [place] C.NCaryl Hull Up Examination Postoperative Visit [place], [place] D.N.P. [address] [facility] [address] [place] [phone] Social History Tobacco Use Types Packs/Day Years [...] or relatives? How often do you attend hoahaoism or More than 4 times per year 11/09/2020 anabaptism services? Do you belong to any clubs or No 11/09/2020 organizations such as hoahaoism groups, unions, fraternal or athletic groups, or [...] Notes Sandhya Lyons, [place], C.N.P., D.N.P. - 01/30/2020 11:00 AM CDT SUBJECTIVE CHIEF COMPLAINT / REASON FOR VISIT Dulce Lei is a 39 y.o. female who presents for evaluation of Post-op (PERONEUS BREVIS TENDON REPAIR FOOT-Right ankle peroneus brevis tendon repair, brostrom repair 12/11/19. Patient is here with post op concern of recent increased pain ). HISTORY OF PRESENT ILLNESS Dulce is a pleasant 39 y.o. female who is 7 weeks s/p right ankle peroneus brevis tendon repair and right ankle Brostrom reconstruction. She had been doing well working with physical therapy on ankle motion. She started weight-bearing on her right lower extremity at about 5 weeks postop without issue. She reports new onset ankle pain a day or 2 ago. She did walk around [employer] yesterday but was wearing her Cam walker. She reports new onset swelling and significant tenderness to touch around the ankle incision. No redness or drainage mentioned. No fevers or chills. She denies any injury to her ankle. OBJECTIVE PHYSICAL EXAMINATION General: Patient is in no distress. Capable of full communication without difficulty. Patient is polite and cooperative. Extremities: Right ankle surgical incision is well approximated without any signs or symptoms of infection. There is a moderate amount of ankle swelling noted about the incision without increased redness or drainage. She is able to plantar and dorsiflex her ankle but this is moderately painful. No neurovascular compromise distally. Neuro: Alert and oriented x3. ASSESSMENT / PLAN #1 Pain Ankle Right #2 Follow Up Examination Postoperative Visit Dulce is a pleasant 39-year-old female who is about 7 weeks status post right ankle peroneus brevis tendon repair and right ankle Brostrom reconstruction. She had been working with therapy and progressing well however she experienced new onset, significant ankle pain a day or 2 ago. At this point in time, we will have her rest her ankle in the cam walker and nonweightbearing for the next week or 2. She will ice and elevate. A small refill of her pain medication was given for pain not relieved by Tylenol. She was advised to quit smoking and avoid ibuprofen at this time. She will plan to completely rest her ankle, but continue working with therapy on gentle range of motion. She will plan to follow-upwith us in the next couple weeks, or sooner with concerns. She is in [...] documented as of this encounter Care Teams Swimming Teacher Relationship Specialty Start Date End Date Elsewhere, Pcp PCP - General Internal Medicine 06/25/19 03/18/20 documented as of this encounter
--- OUTSIDE RECORDS SUMMARY | 2022-03-16 15:03 | XMS_ITS | Encounter Summary ---
:1980 Author Organization [facility] Address [address] [place] [address] Care Team Providers Name Role Phone Elsewhere, Pcp Primary Care Provider Unavailable Reason for Visit Reason Comments Med Refill Encounter Details Date Type Department Care Team Description 03/18/2020 Refill Department of Family Medicine, Selena Horta M.D. Med Refill [facility], in [place] [address] [place] [address] [address] [place], [place] [address] [phone] Social History Tobacco Use Types Packs/Day Years [...] or relatives? How often do you attend rastafari or More than 4 times per year 11/09/2020 confucianism services? Do you belong to any clubs or No 11/09/2020 organizations such as rastafari groups, unions, fraternal or athletic groups, or [...] this encounter Miscellaneous Notes Telephone Encounter - Iman Villalta R.N. - 03/19/2020 7:58 AM CST PCP changed to Dr. Cordoba per pt request, order entered for establish care visit. MOTOR MECHANIC Telephone Encounter - Selena Cordoba M.D. - 03/18/2020 6:39 PM CST A follow-up order would be great. We did not discuss establish care directly, but if she does not have a PCP elsewhere as indicated in the chart we could certainly change it to me if she desires. Selena Cordoba M.D. MOTOR MECHANIC Telephone Encounter - Patsy Hansen R.N. - 03/18/2020 10:35 AM CST Information Discussed Pt requesting refill of her Zyrtec ( Cetrizine 5 mg daily). Pt stated she had sinus surgery and has been taking it for years. She stated her PCP is Dr Cordoba. PLAN Disposition/Recommendation: notified provider and awaiting recommendations Information/Education: patient/caller able to teach back Caller agreeable to plan of care: yes The following references were used: none MOTOR MECHANIC Telephone Encounter - Sandhya Fraga - 03/18/2020 9:30 AM CST Nurse review: Unable to forward request to provider; Not on med list Primary Provider: ELSEWHERE, PCP Name of medication: Cetrizine HCL Strength: 5 mg chew Frequency: Chew and swallow 1 tab PO daily Quantity: 30 Refills: Not provided Last Refill: not provided Pharmacy: [facility] MOTOR MECHANIC documented in this encounter Plan of Treatment Not on filedocumented as of this encounter Visit Diagnoses Not on filedocumented in this encounter Additional Health Concerns Assessment Noted Time PHQ-9 Depression Total Score: 3 02/03/2020 5:39 PM CDT documented as of this encounter Care Teams Certified Athletic Trainer Relationship Specialty Start Date End Date Elsewhere, Pcp PCP - General Internal Medicine 06/25/19 03/18/20 documented as of this encounter
--- OUTSIDE RECORDS SUMMARY | 2022-03-16 15:03 | XMS_ITS | Encounter Summary ---
:1980 Author Organization [facility] Address [address] [place] [address] Care Team Providers Name Role Phone Elsewhere, Pcp Primary Care Provider Unavailable Reason for Visit Reason Comments Foot Pain Encounter Details Date Type Department Care Team Description 01/30/2020 Nurse Triage Department of Valerie Dodson, Foot Pain Medicine, [facility], R.NLashawn in [facility] [address] [place] [address] [place] [address] [phone] Social History Tobacco Use Types Packs/Day Years [...] to pay for the very basics like [employer] hat hard 11/09/2020 food, housing, medical care, [...] this encounter Miscellaneous Notes Telephone Encounter - Valerie Bruno R.N. - 01/30/2020 7:16 AM CDT COVID-19 Nurse Line Screening ASSESSMENT COVID 19 Screening Have you had close contact with a person who has a LABORATORY CONFIRMED case of COVID-19 in the past14 days?: No - Continue screening. In the last 48 hours have you had any of the following symptoms?: No - Complete screening. Testing is not recommended at this time. May consider asymptomatic testing if advised for public health, work,school and travel related purposes PLAN Endpoint recommendation: Screening negative, testing not indicated at this time Care Points provided: deferred Education: Not applicable Patient agreeable to plan of care: Yes The following references were used: [facility] novel coronavirus (COVID- 19) resources Telephone Encounter - Valerie Bruno R.N. - 01/30/2020 7:06 AM CDT Chief Complaint / Reason for Call Patient is a 39 y.o. female calling regarding Foot Pain. Assessment Concern: Surgery on 12/10. She was doing pretty good and started physical therapy. Yesterday, her ankle started swelling and she is in severe pain that kept her up last night. She still has the hematomapost operatively that has gotten worse. . Present for: 24 hours Home cares tried: Ice elevation and not doing anything Calling to request: appointment The recommended disposition is See a health care provider within 4 hours. Reason for Disposition ??? [1] SEVERE pain (e.g., excruciating, unable to walk) AND [2] not improved after 2 hours of pain medicine Protocols used: ANKLE [id number]-KTYKM-TV Care Advice Patient/Caregiver understands and will follow care advice?: Yes, able to teach back SEE PCP WITHIN 4 HOURS (OR PCP TRIAGE): PAIN MEDICINES: * For pain relief, take acetaminophen, ibuprofen, or naproxen. * Use the lowest amount that makes your pain feel better. * Before taking any medicine, read all the instructions on the package. CALL BACK IF: * You become worse. CARE ADVICE given per Ankle Pain (Adult) guideline. documented in this encounter Plan of Treatment Not on filedocumented as of this encounter Visit Diagnoses Not on filedocumented in this encounter Additional Health Concerns Assessment Noted Time PHQ-9 Depression Total Score: 13 12/25/2019 10:30 AM C DT documented as of this encounter Care Teams Engineer [employer] Relationship Specialty Start Date End Date Elsewhere, Pcp PCP - General Internal Medicine 06/25/19 03/18/20 documented as of this encounter
--- OUTSIDE RECORDS SUMMARY | 2022-03-16 15:03 | XMS_ITS | Encounter Summary ---
:1980 Author Organization [facility] Address [address] [place] [address] Care Team Providers Name Role Phone Unavailable Primary Care Provider Unavailable Reason for Visit Reason Comments Migraine Pt presents to ED with a dean daria that started today at 0900. Encounter Details Date Type Department Care Team Description 07/18/2020 Emergency [facility] Mansoor Perez , Migraine Headache Department P.A.-C. Common (Primary Dx) [address] [place] [address] [address] [place] [phone] (Wo rk) Social History Tobacco Use Types [...] More than 4 times per year 11/09/2020 baptism services? Do you belong to any clubs [...] Sign Reading Time Taken Comments Blood Pressure 124/98 07/18/2020 8:00 PM CDT Pulse 83 07/18/2020 8:15 PM CDT Temperature 36.8 ??C (98.2 ??F) 07/18/2020 7:15 PM CDT Respiratory Rate 18 07/18/2020 8:00 PM CDT Oxygen Saturation 97% 07/18/2020 8:15 PM CDT Inhaled Oxygen Concentration - - Weight 93.9 kg (207 lb 0.2 oz) 07/18/2020 7:18 PM CDT Height - - Body Mass Index 37.61 07/08/2020 9:36 AM CDT documented in this encounter Discharge Instructions Discharge InstructionsWrMansoor onofre, Gaby. - 07/18/2020 7:48 PM CDT Rest today and drink plenty of fluids, avoid screens, bright or flashing lights Please return to ED if symptoms worsen AttachmentsThe following attachments cannot be sent through Care Everywhere. Migraine Headache [id number] (Montenegrin)documented in this encounter Medications at Time of [...] Take 1 tablet (20 90 tablet 3 /10/22/2020 tabletIndications: Anxiety mg total) by mouth daily. prochlorperazine Take 1 tablet (10 20 tablet 2 07/13/2020 0 11/09/2020 (COMPAZINE) 10 mg tablet mg total) by mouth every 6 (six) hours as needed for nausea. MAX 9 days/month. psyllium seed, with Take by mouth 0 dextrose, (FIBER ORAL) daily. rizatriptan MIXING TANK OPERATOR Take 1 tablet (10 18 tablet 3 07/13/2020 (MAXALT-MIXING TANK OPERATOR) 10 mg mg total) by disintegrating tablet mouth every 2 (two) hours as needed for migraine. MAX 30mg/day. MAX 9 days/month. topiramate (TOPAMAX) 100 mg Take 1.5 tablets 135 tablet 3 10/22/2020 tabletIndications: Migraine (150 mg total) by Headache mouth daily. UNABLE TO FIND Med Name: Thrive, 0 vitamins, shakes, and patches documented as of this encounter ED Notes Mansoor Perez P.A.-C. - 07/18/2020 7:22 PM CDT SUBJECTIVE CHIEF COMPLAINT/REASON FOR VISIT Migraine (Pt presents to ED with a migraine that started today at 0900.) HISTORY OF PRESENT ILLNESS Migraine This is a recurrent problem. The current episode started today (9 am). The problem occurs constantly. The problem has been waxing and waning. The pain is located in the frontal region. The pain does not radiate. The pain quality is similar to prior headaches. The quality of the pain is described as aching. The pain is at a severity of 8/10. The pain is severe. Associated symptoms include nausea, phonophobia and photophobia. Pertinent negatives include no eye redness. Nothing aggravates the symptoms.She has tried nothing for the symptoms. REVIEW OF SYSTEMS Constitutional: Negative. HENT: Negative. Eyes: Positive for photophobia and visual disturbance. Negative for redness. Respiratory: Negative. Cardiovascular: Negative. Gastrointestinal: Positive for nausea. Genitourinary: Negative. Musculoskeletal: Negative. Skin: Negative. Allergic/Immunologic: Negative. Neurological: Positive for headaches. Hematological: Negative. Psychiatric/Behavioral: Negative. OBJECTIVE Initial Vitals Temperature Pulse Rate Heart Rate Resp Rate Blood Pressure SpO2 07/18/20191407/18/201914 -- 07/18/20191407/18/20191407/18/201914 36.8 ??C 104 18 (!) 127/102 97 % Pain Score 07/18/201999 7 PHYSICAL EXAMINATION Constitutional: Nursing note and vitals reviewed. She appears distressed. Appears uncomfortable HENT: Head: Atraumatic. Mouth/Throat: Mucous membranes are moist. Eyes: Conjunctivae and EOM are normal. Pupils are equal, round, and reactive to light. Neck: Neck supple. Cardiovascular: Normal rate, regular rhythm, normal heart sounds, intact distal pulses and normal pulses. Capillary refill: takes less than 3 seconds, Pulmonary/Chest: Effort normal and breath sounds normal. Abdominal: Non-distended. Musculoskeletal: Normal range of motion. Neurological: Alert and oriented to person, place, and time. She has normal strength. Skin: Skin is warm and dry. Psychiatric: She has a normal mood and affect. Behavior is normal. ASSESSMENT/PLAN IMPRESSION AND PLAN Pt is given droperidol, benadryl, and toradol with complete resolution of headache. She will follow up as needed Final Diagnoses: as of Jul 20 23 Migraine Headache Common Mansoor Perez P.A.-C. 07/19/2024 documented in this encounter Plan of Treatment Not on filedocumented as of this encounter Visit Diagnoses Diagnosis Migraine Headache Common - Primary documented in this encounter Administered Medications Inactive Administered Medications - up to 3 most recent administrations Medication Order MAR Action Action Date Dose Rate Site diphenhydrAMINE liquid 25 mg Given 07/18/2020 7:59 PM CDT 25 mg (BENADRYL) 25 mg, oral, Once, On 07/18/20 at 1935, For 1 dose droperidoL injection 0.625 Given 07/18/2020 8:02 PM 0.625 mg Right Dorsogluteal mg (INAPSINE) CDT 0.625 mg, intramuscular, Once, On 07/18/20 at 1935, For 1 dose ketorolac injection 15 mg Given 07/18/2020 8:00 PM CDT 15 mg Left Dorsogluteal (TORADOL) 15 mg, intramuscular, Once, On 07/18/20 at 1935, For 1 dose, Adult IV push rate: Over 15 seconds. Peds IV push rate: Over 1 minute. 60 mg dose only for IM, not recommended for IV. documented in this encounter Active and Recently Administered Medications Times are shown in CDT. Scheduled Medication Order 07/16/2020 07/17/2020 07/18/2020 diphenhydrAMINE liquid 25 mg (BENADRYL) (COMPLETED) 1958 (Given - Provider: Garrett Drkae RBessy) 25 mg, oral, Once, On 07/18/20 at 1935, For 1 dose droperidoL injection 0.625 mg (INAPSINE) (COMPLETED) 2001 (Given - Provider: Garrett Drake RBessy) 0.625 mg, intramuscular, Once, On 07/18/20 at 1935, For 1 dose ketorolac injection 15 mg (TORADOL) (COMPLETED) 1999 (Given - Provider: Garrett Drake R.N.) 15 mg, intramuscular, Once, On Sat 1 at 1935, For 1 dose, Adult IV push rate: Over 15 seconds. Peds IV push rate: Over 1 minute. 60 mg dose only for IM, not recommended for IV. documented in this encounter Additional Health Concerns Assessment Noted Time PHQ-9 Depression Total Score: 17 07/13/2020 3:09 PM CD T documented as of this encounter
--- OUTSIDE RECORDS SUMMARY | 2022-03-16 15:03 | XMS_ITS | Encounter Summary ---
:1980 Author Organization [facility] Address [address] [place] [address] Care Team Providers Name Role Phone Unavailable Primary Care Provider Unavailable Encounter Details Date Type Department Care Team Description 04/20/2020 Orders Only [facility] PCP [facility] MNT Edward Cordoba M.D. Screening Lipid [id number] [facility] [address] [place] [phone] (Wo rk) Social History Tobacco Use [...] as of this encounter Visit Diagnoses Diagnosis Screening Lipid documented in this encounter Additional Health Concerns Assessment Noted Time PHQ-9 Depression Total Score: 3 02/03/2020 5:39 PM CDT documented as of this encounter
--- OUTSIDE RECORDS SUMMARY | 2022-03-16 15:03 | XMS_ITS | Encounter Summary ---
:1980 Author Organization [facility] Address [address] [place] [address] Care Team Providers Name Role Phone Elsewhere, Pcp Primary Care Provider Unavailable Reason for Visit Outpatient (Routine) - Closed Specialty Diagnoses / Procedures Referred By Contact Refer red To Contact Orthopedic Surgery Sandhya Lyons, [place], JENNIF[facility] C.N.P., D.N.P. [address] [place] [phone] Referral ID Status Reason Start Date Expiration Date Visits Requ ested Visits Authorized [id number] Closed 01/22/2020 01/21/2021 1 1 Encounter Details Date Type Department Care Team Description 02/11/2020 Office Visit Department of Sandhya Lyons, Radha Ankl e Right (Primary Dx); Orthopedic Surgery in [place], C.N.PCaryl Hardin Up Examination Postoperative Visit Tristin Bejarano.N.PLashawn [address] [phone] Social History Tobacco Use Types Packs/Day [...] 11/09/2020 organizations such as temple groups, unions, fraNavionics or athletic groups, or school groups? How [...] Notes Sandhya Lyons, [place], C.N.P., D.N.P. - 02/11/2020 9:30 AM CDT SUBJECTIVE CHIEF COMPLAINT / REASON FOR VISIT Dulce Lei is a 39 y.o. female who presents for evaluation of No chief complaint on file.. HISTORY OF PRESENT ILLNESS Dulce is a pleasant 39 y.o. female who is 8 weeks s/p right ankle peroneus brevis tendon repair, right Brostrom reconstruction. She has been working with physical therapy on motion and strengthening of her ankle. Couple weeks ago, she had a minor setback - no injury to her ankle however she experience increased pain and swelling. She return to crutches and nonweightbearing status for week, she reportssome when she weaned off her crutches again, remaining in a cam walker, her pain and swelling significantly improved. She has been full weight-bearing in her Cam walker since that time. OBJECTIVE PHYSICAL EXAMINATION General: Patient is in no distress. Capable of full communication without difficulty. Patient is polite and cooperative. Extremities: Right ankle surgical incision is well healed without any signs or symptoms of infectionNo neurovascular compromise. No lower extremity edema noted. Neuro: Alert and oriented x3. ASSESSMENT / PLAN #1 Pain Ankle Right #2 Follow Up Examination Postoperative Visit Ezequiel is a pleasant 39-year-old female who is 8 weeks status post right ankle peroneus brevis tendon repair and right Brostrom reconstruction. At this point in time, we will have her continue working with therapy to regain strength and motion in her ankle. PT can help her wean out of her Cam walker over the next couple weeks, using pain as her guide. Continue [id number] remedies during the day for discomfort, I did give her a very small amount of hydrocodone to take at night for increased aching. She understands that this will be her last pain medicine prescription from Orthopedics. She will continue to ice and elevate. We will let physical therapy wean her out of her boot, we will plan to see her back on an as-needed basis, for concerns. She is in agreement with this [...] documented as of this encounter Care Teams Sales Producer Relationship Specialty Start Date End Date Elsewhere, Pcp PCP - General Internal Medicine 06/25/19 03/18/20 documented as of this encounter
--- OUTSIDE RECORDS SUMMARY | 2022-03-16 15:03 | XMS_ITS | Encounter Summary ---
:1980 Author Organization [facility] Address [address] [place] [address] Care Team Providers Name Role Phone Unavailable Primary Care Provider Unavailable Reason for Visit Reason Comments Migraine Encounter Details Date Type Department Care Team Description 05/08/2020 Emergency [facility] Kevin Lawrence, Migraine Headache Department P.A.-C. (Primary Dx) [address] [place] [phone] (Wo rk) Social History Tobacco Use Types [...] or relatives? How often do you attend restorationism or More than 4 times per year 11/09/2020 judaism services? Do you belong to any clubs or No 11/09/2020 organizations such as restorationism groups, unions, fraternal or athletic groups, or [...] to pay for the very basics like Referral[employer]andyw hat hard 11/09/2020 food, housing, medical care, [...] Sign Reading Time Taken Comments Blood Pressure 109/71 05/08/2020 8:00 PM FIRE RANGE TECHNICIAN Pulse 74 05/08/2020 8:00 PM FIRE RANGE TECHNICIAN Temperature 36.8 ??C (98.2 ??F) 05/08/2020 7:37 PM FIRE RANGE TECHNICIAN Respiratory Rate 16 05/08/2020 7:37 PM FIRE RANGE TECHNICIAN Oxygen Saturation 97% 05/08/2020 8:00 PM FIRE RANGE TECHNICIAN Inhaled Oxygen Concentration - - Weight 95.6 kg (210 lb 12.2 oz) 05/08/2020 7:35 PM FIRE RANGE TECHNICIAN Height - - Body Mass Index 38.55 12/05/2019 9:55 AM CDT documented in this encounter Discharge Instructions AttachmentsThe following attachments cannot be sent through Care Everywhere. Migraine Headache [id number] (Vincentian)documented in this encounter Medications at Time of [...] documented as of this encounter ED Notes Chrissie Valles R.N. - 05/08/2020 7:50 PM CST Pt presents to ED with migraine headache that started this morning. Pt reports this type of headacheis typical to the migraines she normally gets. Last dose of Benadryl and ibuprofen at 3pm this afternoon. Chrissie Valles R.N. 05/08/201950 RANGE TECHNICIAN Kevin Lawrence P.A.-C. - 05/08/2020 7:38 PM CST SUBJECTIVE CHIEF COMPLAINT/REASON FOR VISIT Migraine HISTORY OF PRESENT ILLNESS [age] year female with history of obesity, asthma, migraine headaches presenting with headache that started today like her usual migraines do. It slowly became worse throughout the day she triedsome ibuprofen and Benadryl which usually takes care the pain for her although occasionally does not. Unfortunately today it did not take care the pain and therefore she came to the ER for further evaluation. She has had some nausea, some photophobia which are both typical for her migraines. She has not had any numbness or tingling or visual changes. She does not normally get or others with her headache and did not get 1 today. Patient is currently an everyday smoker, does not drink. Family history of headaches, hypertension, asthma and diabetes. REVIEW OF SYSTEMS Constitutional: Negative for chills and fever. HENT: Negative for rhinorrhea and sore throat. Eyes: Positive for photophobia. Respiratory: Negative for cough and shortness of breath. Gastrointestinal: Positive for nausea. Negative for abdominal pain, diarrhea and vomiting. Musculoskeletal: Negative for back pain and neck pain. Skin: Negative for rash and wound. Neurological: Positive for headaches. Psychiatric/Behavioral: Negative for confusion and decreased concentration. OBJECTIVE Initial Vitals Temperature Pulse Rate Heart Rate Resp Rate Blood Pressure SpO2 05/08/20193605/08/201936 -- 05/08/20193605/08/20193605/08/201936 36.8 ??C 76 16 104/77 97 % Pain Score 05/08/201934 8 PHYSICAL EXAMINATION Constitutional: Vitals reviewed. She appears not lethargic. No distress. HENT: Mouth/Throat: Mucous membranes are moist. Eyes: Conjunctivae are normal. Pupils are equal, round, and reactive to light. Neck: Normal range of motion. Cardiovascular: Normal rate. Pulmonary/Chest: Effort normal. No respiratory distress. Abdominal: She exhibits no distension. Musculoskeletal: No deformity or edema. Neurological: She is alert and oriented to person, place, and time. She is not disoriented. Cranial nerves 2-12 grossly intact. Normal sensation to light touch in upper and lower extremities bilaterally. Skin: Skin is warm and dry. No rash noted. Psychiatric: She has a normal mood and affect. Her behavior is normal. ASSESSMENT/PLAN IMPRESSION AND PLAN Patient given droperidol IM and Benadryl p.o.. With adequate relief of her headache. At this point emergent etiology such as intracranial tumor, infection or bleeding are unlikely. Will have her continue with her usual medications at home. Home care instructions discussed, signs and symptoms that should prompt return to the emergency room were discussed. I reviewed previous medical records including documentation from previous visits. Final Diagnoses: as of May 08 2022 Migraine Headache Kevin Lawrence P.A.-C. 05/08/202022 RANGE TECHNICIAN documented in this encounter Plan of Treatment Not on filedocumented as of this encounter Visit Diagnoses Diagnosis Migraine Headache - Primary documented in this encounter Administered Medications Inactive Administered Medications - up to 3 most recent administrations Medication Order MAR Action Action Date Dose Rate Site diphenhydrAMINE capsule 25 mg Given 05/08/2020 7:46 PM FIRE RANGE TECHNICIAN 25 mg (BENADRYL) 25 mg, oral, Once, On Mon05/08/20 at 1939, For 1 dose droperidoL injection 2.5 mg Given 05/08/2020 7:46 PM FIRE RANGE TECHNICIAN 2.5 mg Left Ventrogluteal (INAPSINE) 2.5 mg, intramuscular, Once, On Mon05/08/20 at 1939, For 1 dose documented in this encounter Active and Recently Administered Medications Times are shown in FIRE RANGE TECHNICIAN. Scheduled Medication Order 05/06/2020 05/07/2020 05/08/2020 diphenhydrAMINE capsule 25 mg (BENADRYL) (COMPLETED) 1945 (Given - Provider: Chrissie Valles R.N.) 25 mg, oral, Once, On Mon05/08/20 at 1939, For 1 dose droperidoL injection 2.5 mg (INAPSINE) (COMPLETED) 1945 (Given - Provider: Chrissie Valles R.N.) 2.5 mg, intramuscular, Once, On Mon05/08/20 at 1939, For 1 dose documented in this encounter Additional Health Concerns Assessment Noted Time PHQ-9 Depression Total Score: 3 02/03/2020 5:39 PM CDT documented as of this encounter
--- OUTSIDE RECORDS SUMMARY | 2022-03-16 15:03 | XMS_ITS | Encounter Summary ---
:1980 Author Organization [facility] Address [address] [place] [address] Care Team Providers Name Role Phone Unavailable Primary Care Provider Unavailable Encounter Details Date Type Department Care Team Description 06/22/2020 Clinical Communication Department of [facility] Wendy Cordoba, Medicine, [place] [facility], in [address] [phone] Social History Tobacco Use Types Packs/Day Years [...] More than 4 times per year 11/09/2020 oriental orthodox services? Do you belong to any clubs [...] to pay for the very basics like [employer] hat hard 11/09/2020 food, housing, medical care, [...] this encounter Miscellaneous Notes Telephone Encounter - Luna Obando - 06/22/2020 8:04 AM CST What is the purpose of the call?: [...] sending patient for testing in [facility] or [facility], route encounter to the correct testing pool. LATION TECHNICIAN documented in this encounter Plan of Treatment Not on filedocumented as of this encounter Visit Diagnoses Not on filedocumented in this encounter Additional Health Concerns Assessment Noted Time PHQ-9 Depression Total Score: 3 02/03/2020 5:39 PM CDT documented as of this encounter
--- OUTSIDE RECORDS SUMMARY | 2022-03-16 15:03 | XMS_ITS | Encounter Summary ---
:1980 Author Organization [facility] Address [address] [place] [address] Care Team Providers Name Role Phone Elsewhere, Pcp Primary Care Provider Unavailable Reason for Visit Physical Therapy (Routine) - Closed Specialty Diagnoses / Procedures Referred By Contact Refer red To Contact Diagnoses Pain Ankle Right Barbara Raya APRN, [facility] Procedures PT Evaluate and treat C.N.P., D.N.P. [address] [place] [phone] Referral ID Status Reason Start Date Expiration Date Visits Requ ested Visits Authorized [id number] Closed 12/27/2019 12/26/2020 1 1 Encounter Details Date Type Department Care Team Description 01/24/2020 Comprehensive Visit Department of Barbara Raya APRN, C.N.P., D.N.P. [address] [place] [phone] Pain Ankle Right Rehabilitation Zakia Melchor P.T., D.P.T. Services in [address] [phone] Social History Tobacco Use Types Packs/Day Years [...] or relatives? How often do you attend zoroastrian or More than 4 times per year 11/09/2020 advent services? Do you belong to any clubs or No 11/09/2020 organizations such as zoroastrian groups, unions, fraternal or athletic groups, or [...] documented as of this encounter Consult Notes Zakia Melchor P.T., D.P.T. - 01/24/2020 8:30 AM CDT Physical Therapy Outpatient Evaluation/Treatment By co-signing this note, the provider certifies the therapy being provided to this patient is reasonable and necessary for the diagnosis or treatment of this patient. SUBJECTIVE Patient's Name: Dulce Lei Referring Provider: Barbara Raya APRN, C.* Visit Diagnosis: 1. Pain Ankle Right Reason for Referral: PT eval and treat Payor: [facility] / Plan: [facility] / Product Type: Medicaid HMO / [facility] Visit Count: 1 PERTINENT MEDICAL / SURGICAL HISTORY: Patient Active Problem List Diagnosis ??? Migraine Headache ??? Pain Ankle Right ??? Asthma (HCC) ??? Obesity Body Mass Index 30-39.9 Adult Past Surgical History: Procedure Laterality Date ??? [...] Surgeon: Alexsander Marshall M.D.; Location: [facility] OR ??? TONSILLECTOMY AND ADENOIDECTOMY N/A 04/17/1994 Tonsillectomy with adenoidectomy Dulce Lei is a 39 y.o. female who presents to outpatient physical therapy for evaluation. Her symptoms consist of: 1. S/p right ankle peroneus brevis tendon repair and right ankle Brostrom reconstruction Overall she reports her status is improving . History of Present Illness: Patient is 6 weeks s/p right ankle peroneus brevis tendon repair and right ankle Brostrom reconstruction. Patient states that she has been full weightbearing in her CAM walker since last week. She states that she originally injured her ankle in July when she tripped while walking down the stairs. She states that her swelling has improved since she started weightbearing. She reports decreased sensation in her right medial and lateral foot and 4th and 5th toes. 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 Patient goals:to ambulate with no AD and complete light household activities with minimal right ankle pain OBJECTIVE REVIEW OF SYSTEMS Negative except right ankle Musculoskeletal ROS: positive for - gait disturbance, joint pain, joint stiffness, joint swelling, muscle pain and muscular weakness PHYSICAL EXAM Pain: Pain Assessment Pain Assessment: 0-10 Numeric Pain Intensity Scale Pain Score: 2 Ambulation/Balance: Device: (CAM boot) Distance (m): (100 feet) Surface: Flat Quality: Antalgic, Decreased stance time R Assessment of Gait: Decreased gait speed Ortho Exam Outcome Measures: FAAM: Hip strength (right/left): Flexion: 5/5 Abduction: 4/4+ Ankle strength (Right/left): PF: NT/NT DF: 4/5 Inversion: 4/5 Eversion: 3+/5 Ankle AROM (Right/left): PF: 20/50 DF: 15/20 Inversion: 20/35 Eversion: 15/25 Ankle PROM (Right/left): PF: 40/50 DF: 15/20 Inversion: 30/35 Eversion: 20/25 Decreased sensation on lateral surface and medial surface of right foot, decreased sensation of 4th and 5th toes Unable to flex 5th toe on right with towel scrunches Swelling around medial and lateral right ankle (lateral>medial) TREATMENT Treatment today consisted of: Access Code: [email or web address] Exercises ??? Supine Ankle Circles - 10 reps - 3 sets - 1x daily - 7x weekly ??? Supine Ankle Inversion Eversion AROM - 10 reps - 3 sets - 1x daily - 7x weekly ??? Supine Ankle Dorsiflexion and Plantarflexion AROM - 10 reps - 3 sets - 1x daily - 7x weekly ??? Seated Toe Towel Scrunches - 10 reps - 3 sets - 1x daily - 7x weekly ??? Ankle alphabet A-Z ??? S/L hip abduction - 10 reps - 3 sets Home Exercise Program/Education: Instructed on HEP. Discussed standing at counter top for 2-3 times per day for 5-10 minutes without CAM walker. Discussed continued use of ice and elevation. Provided patient with Tubigrip to help manage swelling. Patient will continue to wear CAM walker for ambulation. Contact monitoring: PPE used during therapy: Therapist was wearing the following PPE throughout entire session: surgicalmask and eye protection Patient was wearing a mask during therapy session: yes Additional Staff Present During Session: No Assessment Clinical Impression: Ms. Lei presents to physical therapy with signs and symptoms consistent with S/p right ankle peroneus brevis tendon repair and right ankle Brostrom reconstruction. Impairments: AROM, strength, balance, gait, PROM Functional Deficits: ambulation, stairs, squatting, household activities Rehab Potential: Ms. Lei has Good potential to achieve established physical therapy goals withinthe time frame outlined below, provided she actively participates in her physical therapy treatment plan and home program. Comorbidities: obesity, asthma Clinical Presentation: Stable Examination elements: 1-2 Clinical Decision Making: Low: no complicating factors, 1-2 eval elements, stable clinical presentation Functional Goals and Timeframes: PT Goal #1: Patient will be able to ambulate 120 feet with no CAM boot and normalize gait pattern with minimal right ankle pain. PT Goal #2: Patient will be able to complete light household activities with minimal right ankle pain. PT Goal #3: Patient will demonstrate 5/5 right ankle strength in all motions. PT Goal #4: Patient will demonstrate ability to self-manage her HEP. Plan Ms. Lei was educated regarding evaluative findings, diagnosis, prognosis, potential risks and benefits of rehabilitation interventions. A collaborative effort was used to establish goals and plan of care. She was informed of her right to make decisions regarding her care, including refusal of examination or treatment or selection of services from another provider if desired. The treatment plan may be progressed or modified based upon her response to treatment. Treatment Plan: Start of Plan of Care: 01/24/2020 PT Next Certification Date: 04/23/20 Number of Visits: 10 visits PT Duration: 10 weeks PT Frequency: 1-2x/week Treatment interventions may include: Therapeutic exercise, Therapeutic functional activity, Gait training, Neuromuscular re-education, Manual therapy, Therapeutic modalities as needed Plan for next session: Progress ankle strengthening, ambulate without CAM walker Time Spent with Patient PT Evaluation (min): 35 min Time Calculation Total Treatment Time (min): 35 min Zakia Melchor P.T., D.P.T. Department of Rehabilitation Services in [address] [phone] Dept: [phone] documented in this encounter Plan of Treatment Not on filedocumented as of this encounter Visit Diagnoses Diagnosis Pain Ankle Right documented in this encounter Additional Health Concerns Assessment Noted Time PHQ-9 Depression Total Score: 13 12/25/2019 10:30 AM C DT documented as of this encounter Care Teams Fence Installer Helper Relationship Specialty Start Date End Date Elsewhere, Pcp PCP - General Internal Medicine 06/25/19 03/18/20 documented as of this encounter
--- OUTSIDE RECORDS SUMMARY | 2022-03-16 15:04 | XMS_ITS | Encounter Summary ---
:1980 Author Organization [facility] Address [address] [place] [address] Care Team Providers Name Role Phone Elsewhere, Pcp Primary Care Provider Unavailable Encounter Details Date Type Department Care Team Description 12/08/2019 Hospital Encounter Department of Alexsander Marshall Pain Ankle Right Laboratory Medicine Tushar Claire in [address] [address] [place], [place] [phone] (Work) [phone] Social History Tobacco Use Types Packs/Day Years [...] Start Date End Date cetirizine (ZyrTEC) 10 0 05/16/2019 mg tablet cholecalciferol, Take 1,000 Units by 0 07/20/2021 vitamin D3, mouth daily. (cholecalciferol) 1,000 Unit tablet methylcellulose, Take 2 tablets by 0 0 12/25/2019 laxative, (CITRUCEL) mouth 2 (two) times a 500 mg tablet day. oxyCODONE (ROXICODONE) Take 1-2 tablets (5-10 30 tablet 0 0 12/11/2019 12/25/2019 5 mg immediate release mg total) by mouth tabletIndications: every 4 (four) hours Prolonged Acute as needed for pain Pain/Traumatic Injury Indication: Prolonged Acute Pain/Traumatic Injury. PARoxetine (PAXIL) 10 Take 10 mg by mouth 0 02/04/2020 mg tablet daily. topiramate (TOPAMAX) 50 Take 50 mg by mouth 0 02/04/2020 mg tablet daily. UNABLE TO FIND Med Name: Thrive, 0 vitamins, shakes, and patches documented as of this encounter Plan of Treatment Not on filedocumented as of this encounter Procedures Procedure Name Priority Date/Time Associated Diagnosis Comme nts SARS CORONAVIRUS-2 Routine 12/08/2019 8:55 AM Res ults for this RNA, V CDT procedure are i n the results section. documented in this encounter Results SARS Coronavirus-2 RNA, V (12/08/2019 8:55 AM CDT) [facility] Method Time Signature SARS-CoV-2 Nasopharynx 12/08/2019 ECL[facility] Specimen 8:09 PM CDT Source SARS CoV-2 Undetected Undetected 12/08/2019 ECL[facility] RNA, TMA 8:09 PM CDT Comment: SARS-CoV-2 RNA absent. This result does not rule out COVID-19 in the patient, as the sensitivity of the test depends o n the timing of the specimen collection and the quality of the specim en. Result should be correlated with patient's history and clinical presentat ion. ----ADDITIONAL INFORMATION---- This test is performed using the Aptima SARS-CoV-2 assay ([employer] which has received Emergency Use Authori zation (EUA) by the U.S. Food and Drug Administration. Fact sheets for this Emergency Use Autho rization (EUA) assay can be found at the following links: For Healthcare Providers: https://www.Xenith a.gov/media/774372/download For Patients: https://www.fda.gov/media/ 684709/download Specimen Anatomical Collection Method Collection Time Receive d Time (Source) Location / / Volume Laterality Varies 12/08/2019 8:55 AM 0 3:44 CDT PM CDT Alexsander Marshall M.D. LAB MICROBIOLOGY - GENERAL O RDERABLES Performing Organization Address City/State/ZIP Code Phon e Number [facility]- [address] [place] [phone] [facility] [place] [address] System in [address] documented in this encounter Visit Diagnoses Diagnosis Pain Ankle Right documented in this encounter Additional Health Concerns Infection Onset Date Last Indicated Resolved Time COVID19 Pending 12/08/2019 12/08/2019 12/08/2019 3:31 PM CDT COVID19 Pending 12/08/2019 12/08/2019 12/08/2019 3:44 PM CDT COVID19 Pending 12/08/2019 12/08/2019 12/08/2019 8:09 PM CDT Assessment Noted Time PHQ-9 Depression Total Score: 1 06/13/2014 1:45 PM 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
--- OUTSIDE RECORDS SUMMARY | 2022-03-16 15:04 | XMS_ITS | Encounter Summary ---
:1980 Author Organization [facility] Address [address] [place] [address] Care Team Providers Name Role Phone Elsewhere, Pcp Primary Care Provider Unavailable Reason for Visit Auth/Cert Specialty Diagnoses / Procedures Referred By Contact Refer red To Contact Diagnoses Pain Ankle Right Pain Ankle Right [M25.571] Procedures [place] RPR FLEXOR TNDN LEG WO GRFT [place] RPR FLEXOR TENDON LEG SECNDRY [place] RPR TNDN FLEXOR FT WO GRFT [place] RPR TNDN FLX FT W GRFT EA [place] RPR FOOT TENDON PERONEUS BREVIS TENDON REPAIR FOOT Referral ID Status Reason Start Date Expiration Date Visits Requ ested Visits Authorized [id number] 1 1 Encounter Details Date Type Department Care Team Description 12/11/2019 Anesthesia Event [facility] MAIN OR Kaila Osorio M.D. [address] [facility] [address] [facility] [place] [address] [address] [place] [phone] (Wo rk) Anesthesia Record Procedure Summary Procedure Name Responsible Anesthesia Start Anesthesia Stop Time Anesthesiologist Time PERONEUS Kaila Verduzco M.D. 12/11/19 1211 12/11/19 13 32 TENDON REPAIR FOOT-Right ankle peroneus brevis tendon repair, brostrom repair (Right: Foot) Events Date Time Event Comment 12/11/2019 1141 1211 An Start Machine/Equipmen t Checked Infection Precautions Foll owed Procedure/Site Verified NPO Sta tus Verified Supine Standard ASA Mon itors Applied 1216 An Induction 1221 An Intubation 1223 Turnover to Proceduralist 1238 An Tourn Inflated RLE - 250mmHg 1239 Proc Start 1311 An Tourn Deflated TTT - 33mins 1315 Proc Fin 1323 Turnover to ANE Staff 1323 Airway Removal Criteria Met 1323 Extubation/Airway Removed 1323 an stop data 1332 An End I completed my h andoff to the receiving staff during [facility] we 1. Identified the patient 2. Ident ified the responsible provider 3. Revi ewed the pertinent medical history 4. Discussed the surgical course 5. Review ed intra-op anesthesia management and i ssues during anesthesia 6. Set expectati ons for post-procedure period 7. Allowe d opportunity for questions and ac knowledgement of understanding. Name Total midazolam 1 mg/mL injection 4 mg fentanyl injection 50 mcg/mL 100 mcg lidocaine 2% (mg) injection 100 mg propofol 10 mg/mL 200 mg ondansetron 4 mg/2 mL injection 4 mg ceFAZolin in dextrose (iso-osm) IVPB 2 g (ANCEF) 2 g propofol 10 mg/mL infusion 189.31 mg ketorolac 30 mg injection 30 mg HYDROmorphone 1 mg/mL injection 0.5 mg dexamethasone 4 mg/mL injection 4 mg lactated ringers 900 mL Agents No agents on file. Blood No blood administrations on file. Lines, Drains, and Airways Type Details Placement Removal Peripheral IV Placement Date: 12/11/19 1104 by 12/11/19 1532 b y 12/11/19; Placement Julita Gonzales Meyer, La uren E, R.N. Time: 1104; Catheter R.N. Size: 20 G; Orientation: Left; Location: Hand; Site Prep: Chlorhexidine (Preferred); Technique: Anatomical landmarks; Insertion Attempts: 1; Removal Date: 12/11/19; Removal Time: 1532; Removal Reason: Patient discharged Supraglottic Airway Placement Date: 12/11/19 1221 by 12/11/19 13 23 by 12/11/19; Placement Vaughn Crockett Bauhs, Erica L, APRN, Time: 1221 (created via LO, MAGNO, R.N. Dakotah KIRAN, R.N. procedure documentation); Mask Ventilation: Not attempted; Removal Date: 12/11/19; Removal Time: 1323 (RETIRED) Incision 12/11/19; 1250; Foot; 12/11/19 1250 by 1418 by Right; addie mooney Anhorn, Faye S, R.N. [facility], ai, cam walking d, Sche duling boot; 01/05/21 (Removed Automate d Batch Job by background completion utility); 1418 (Removed by background completion utility) documented in this encounter Social History Tobacco Use Types Packs/Day Years [...] on file documented as of this encounter OR Notes Anesthesia Postprocedure Evaluation - Kaila Osorio M.D. - 12/11/2019 2:41 PM CDT Patient: Dulce Lei Procedure Summary Date: 12/11/19 Room / Location: [address] / [facility] - GI Anesthesia Start: 1211 Anesthesia Stop: 1332 Procedure: PERONEUS BREVIS TENDON REPAIR FOOT-Right ankle peroneus brevis tendon repair, brostrom repair (Right Foot) Diagnosis: Pain Ankle Right (Pain Ankle Right [M25.571]) Surgeon: Alexsander Marshall M.D. Responsible Provider: Kaila Osorio M.D. Anesthesia Type: general ASA Status: 2 Anesthesia Type: general Last vitals Vitals Value Taken Time BP 112/74 12/11/2019 2:10 PM Temp 36.4 ??C 12/11/2019 1:30 PM Pulse 76 12/11/2019 2:12 PM Resp 14 12/11/2019 2:12 PM SpO2 96 % 12/11/2019 2:12 PM Vitals shown include unvalidated device data. Please reference Vitals flowsheet for most recent vital signs. Anesthesia Post Evaluation Patient Disposition: dismissal Cardiovascular status: hemodynamics (HR & BP) acceptable Respiratory status: patent airway with spontaneous effort Temperature: normothermic Oxygen requirements: room air Level of consciousness: awake Pain score: pain adequately controlled and/or at baseline Post Op nausea/vomiting: none Hydration status: euvolemic Anesthesia Procedure Notes - Vaughn Crockett CRNA, R.N. - 12/11/2019 12:42 PM CDTAssociated Order(s): Airway Airway Date/Time: 12/11/2019 12:21 PM Performed by: Vaughn Crockett CRNA, R.N. Authorized by: Kaila Osorio M.D. Patient location during procedure: OR / Procedure Area PROCEDURE DETAILS: Mask difficulty assessment: not attempted Final airway type: supraglottic airway Laryngeal Manipulation: no Supraglottic device: air-Q [place] Airway Device Size: 3.5. [place] Airway Device Size: 3.5. Number of attempt to successful placement: 1 Airway confirmation: bilateral breath sounds, positive ETCO2 and bilateral chest rise Other previous techniques attempted: none PRE PROCEDURE DETAILS: Pre evaluation for airway management: procedure Urgency: elective Preoxygenation: bag valve mask SEDATION / ANESTHESIA Anesthesia method: anesthesia POST PROCEDURE DETAILS: Procedure outcome: successful Airway event: no complications Anesthesia Preprocedure Evaluation - Kaila Osorio M.D. - 12/11/2019 11:32 AM CDT Preprocedure Anesthesia & H&P Assessment Procedure Summary Date/Time: 12/11/191399 Procedure: PERONEUS BREVIS TENDON REPAIR FOOT-Right ankle peroneus brevis tendon repair,possible brostrom repair (Right ) Diagnosis: Pain Ankle Right [M25.571] Pre-op diagnosis: Pain Ankle Right [M25.571] Location: [place] [address] / [facility] - GI Surgeon: Alexsander Marshall M.D. Pertinent components of the patient's history including current problem list, medical history, surgical history, family history, social history, medications and allergies were reviewed. Present illnessand pre-op diagnosis were confirmed. The planned surgery / procedure was verified with the patient /legal guardian. The patient's general health condition remains unchanged PROBLEM LIST Relevant Problems RESP (+) Asthma (HCC) Other (+) Obesity Body Mass Index 30-39.9 Adult (+) Pain Ankle Right had an epidural 13 years ago and had a spinal headache and blood patch OBJECTIVE PHYSICAL EXAMINATION Airway (HEENT) Mallampati: II TM Distance: >3 FB Neck ROM: Full Mouth Opening: >3 cm Upper Lip Bite Test Class: I Cardiovascular Rhythm: Regular Rate: Normal Cardiovascular Assessment: cardiovascular normal Functional Capacity: >4 METS Pulmonary Pulmonary Assessment: Clear General / Constitutional Constitutional Assessment: Normal General State of Health:: healthy appearing and calm Neurological Neurologic Assessment:??alert Dental Dental Assessment: dentition intact ASSESSMENT / PLAN ANESTHESIA PLAN ASA: 2 Anesthesia Plan: general Patient seen and allergies reviewed, anesthesia plan and risks discussed directly with patient /legal guardian or through an residential child care counselor. The use of blood products not discussed Approval to Proceed: approved for anesthesia documented in this encounter Plan of Treatment Not on filedocumented as of this encounter Procedures Procedure Name Priority Date/Time Associated Diagnosis Comme nts LDA ANE Routine 12/11/2019 12:42 PM Results for this NON-SURGICAL AIRWAY CDT procedur e are in the results section. documented in this encounter Results LDA ANE NON-SURGICAL AIRWAY (12/11/2019 12:42 PM CDT) Narrative Vaughn Crockett CRNA, R.N. - 12/11/2019 12:42 PM CDT Vaughn Crockett CRNA RJennifer. ? 12/11/2019 12:42 PM Airway Date/Time: 12/11/2019 12:21 PM Performed by: Vaughn Crockett CRNA, R.N. Authorized by: Kaila Osorio M.D. Patient location during procedure: OR / Procedure Area PROCEDURE DETAILS: Mask difficulty assessment: not attempte d Final airway type: supraglottic airway Laryngeal Manipulation: no ?? Supraglottic device: air-Q ?? [place] Airway Device Size: 3.5. ?? [place] Airway Device Size: 3.5. Number of attempt to successful placemen t: 1 Airway confirmation: bilateral breath so unds, positive ETCO2 and bilateral chest rise Other previous techniques attempted: non e PRE PROCEDURE DETAILS: Pre evaluation for airway management: pr ocedure Urgency: elective Preoxygenation: bag valve mask SEDATION / ANESTHESIA Anesthesia method: anesthesia POST PROCEDURE DETAILS: ? Procedure outcome: successful ?? Airway event: no complications Kaila Osorio M.D. ANESTHESIA ORDERABLES documented in this encounter Visit Diagnoses Not on filedocumented in this encounter Administered Medications Inactive Administered Medications - up to 3 most recent administrations Medication Order MAR Action Action Date Dose Rate Site ceFAZolin in dextrose (iso-osm) Given 12/11/2019 12:31 PM CDT 2 g IVPB 2 g (ANCEF) 2 g (rounded from 2.155 g = 25 mg/kg ? 86.2 kg), intravenous, at 100 mL/hr, Administer over 30 Minutes, Once, On Mon12/11/19 at 1045, For 1 dose, Intra-Op, Preoperatively within 1 hour prior to surgical incision premix bag, Drug Monitoring Program: Pharmacist to adjust medication dosing based on indication and drug clearance factors., Indications: Prophylaxis, surgical dexamethasone injection (DECADRON) Given 12/11/2019 1:01 PM CDT 4 mg As needed, Starting on Mon12/11/19 at 1301, Anesthesia Intra-op fentaNYL injection (SUBLIMAZE) Given 12/11/2019 12:24 PM CDT 50 mcg intravenous, As needed, Starting on Mon12/11/19 at 1216, Anesthesia Intra-op Given 12/11/2019 12:16 PM CDT 50 mcg HYDROmorphone injection (DILAUDID) Given 12/11/2019 12:52 PM CDT 0.5 mg As needed, Starting on Mon12/11/19 at 1252, Anesthesia Intra-op ketorolac injection (TORADOL) Given 12/11/2019 12:46 PM CDT 30 mg As needed, Starting on Mon12/11/19 at 1246, Anesthesia Intra-op lactated ringers New Bag 12/11/2019 2:00 PM CDT 20 mL/hr 20 mL/hr 20 mL/hr, intravenous, Continuous, Starting on Mon12/11/19 at 1045, Pre-Op Rate/Dose Verify 12/11/2019 12:11 PM CDT New Bag 12/11/2019 11:04 AM CDT 20 mL/hr 20 mL/hr lidocaine (PF) (cardiac) injection Given 12/11/2019 12:17 PM CDT 100 mg intravenous, As needed, Starting on Mon12/11/19 at 1217, Anesthesia Intra-op midazolam (PF) injection (VERSED) Given 12/11/2019 12:16 PM CDT 2 mg intravenous, As needed, Starting on Mon12/11/19 at 1212, Anesthesia Intra-op Given 12/11/2019 12:12 PM CDT 2 mg ondansetron (PF) injection (ZOFRAN) Given 12/11/2019 1:01 PM CDT 4 mg intravenous, As needed, Starting on Mon12/11/19 at 1301, Anesthesia Intra-op propofol 10 mg/mL infusion New Bag 12/11/2019 12:16 PM 40 mcg/kg/m in 22.3 mL/hr (DIPRIVAN) CDT Continuous Infusion: Per Instructions PRN, Starting on Mon12/11/19 at 1216, Anesthesia Intra-op propofoL injection (DIPRIVAN) Given 12/11/2019 12:16 PM CDT 200 mg intravenous, As needed, Starting on Mon12/11/19 at 1216, Anesthesia Intra-op documented in this encounter Additional Health Concerns Assessment Noted Time PHQ-9 Depression Total Score: 1 06/13/2014 1:45 PM PROVIDER RELATIONS ADVOCATE documented as of this encounter Care Teams Complaint Specialist Relationship Specialty Start Date End Date Elsewhere, Pcp PCP - General Internal Medicine 06/25/19 03/18/20 documented as of this encounter
--- OUTSIDE RECORDS SUMMARY | 2022-03-16 15:04 | XMS_ITS | Encounter Summary ---
:1980 Author Organization [facility] Address [address] [place] [address] Care Team Providers Name Role Phone Elsewhere, Pcp Primary Care Provider Unavailable Reason for Visit Reason Comments Headache Pt presents to ED with a hea dache that started this am. Pt reports this feels like my typical migrai ne. Encounter Details Date Type Department Care Team Description 12/09/2019 Emergency [facility] Jose Melissa, Headache (Primary Dx) Department P.A.-C. [id number] [address] [address] [place], [place] [phone] (Wo rk) Social History Tobacco Use [...] Sign Reading Time Taken Comments Blood Pressure 116/89 12/09/2019 9:00 PM CDT Pulse 73 12/09/2019 9:15 PM CDT Temperature 36.7 ??C (98.1 ??F) 12/09/2019 8:45 PM CDT Respiratory Rate 18 12/09/2019 8:45 PM CDT Oxygen Saturation 97% 12/09/2019 9:15 PM CDT Inhaled Oxygen Concentration - - Weight 93.2 kg (205 lb 7.5 oz) 12/09/2019 8:50 PM CDT Height - - Body Mass Index 37.58 12/05/2019 9:55 AM CDT documented in this encounter Discharge Instructions AttachmentsThe following attachments cannot be sent through Care Everywhere. Migraine Headache ([place])documented in this encounter Medications at Time of [...] encounter ED Notes Jose Melissa P.A.-C. - 12/09/2019 9:07 PM CDT SUBJECTIVE CHIEF COMPLAINT/REASON FOR VISIT Headache (Pt presents to ED with a headache that started this am. Pt reports this feels like my typical migraine. ) HISTORY OF PRESENT ILLNESS 39-year-old female with long history of migraine headaches presents the ER with complaints of recurring migraine headache. Patient states this feels just like previous episodes and denies new or changein symptoms compared to previous. She states that Toradol, Benadryl, and Phenergan are typically helpful for her symptoms and she requests the same. Nothing else has been found make the symptoms betteror worse. REVIEW OF SYSTEMS Constitutional: Negative for activity change and fever. HENT: Negative for congestion. Respiratory: Negative for cough. Cardiovascular: Negative for chest pain. Gastrointestinal: Positive for nausea. Negative for abdominal pain. Endocrine: Negative for polyuria. Genitourinary: Negative for flank pain. Musculoskeletal: Negative for extremity pain. Skin: Negative for rash. Neurological: Positive for headaches. Negative for dizziness, tremors, seizures, syncope, facial asymmetry, speech difficulty, weakness, light-headedness, numbness and loss of balance. Psychiatric/Behavioral: Negative for confusion. OBJECTIVE Initial Vitals [12/09/192044] Temperature Pulse Rate Heart Rate Resp Rate Blood Pressure SpO2 36.7 ??C 88 -- 18 (!) 131/99 97 % Pain Score 7 PHYSICAL EXAMINATION Constitutional: Nursing note and vitals reviewed. No distress. HENT: Head: Atraumatic. Mouth/Throat: Mucous membranes are moist. Eyes: EOM are normal. Pupils are equal, round, and reactive to light. Extraocular Movements: EOM normal. Funduscopic exam: Right eye: No papilledema. Left eye: No papilledema. Neck: No JVD present. Cardiovascular: Normal rate and regular rhythm. Pulmonary/Chest: Effort normal. There is normal air entry. She exhibits no retraction. Abdominal: Soft. She exhibits no distension. Musculoskeletal: Normal range of motion. No deformity. Neurological: She is alert and oriented to person, place, and time. She has normal sensation, normalstrength and intact cranial nerves. GCS eye subscore is 4. GCS verbal subscore is 5. GCS motor subscore is 6. Normal speech. Gait normal. Skin: Skin is warm and normal color. Psychiatric: She has a normal mood and affect. ASSESSMENT/PLAN Impression and Plan Patient appears well. She has long history of migraine headaches and states this feels exactly like previous episodes. Based on history and physical exam I do not suspect significant intracranial pathology including CVA, tumor, or infection. Patient has experienced relief with treatment emergency department. She will follow-up with her PCP. She return to ER if new symptoms develop, current symptoms worsen, symptoms fail to improve, patient becomes concerned. Patient discharged in good condition. I reviewed previous medical records including documentation from previous visits. Final Diagnoses: as of Dec 08 2108 Headache Jose Melissa, P.A.-Edward. 12/09/192108 documented in this encounter Plan of Treatment Not on filedocumented as of this encounter Visit Diagnoses Diagnosis Headache Unspecified - Primary documented in this encounter Administered Medications Inactive Administered Medications - up to 3 most recent administrations Medication Order MAR Action Action Date Dose Rate Site diphenhydrAMINE injection Given 12/09/2019 9:18 PM 50 mg Left Dorsogluteal 50 mg (BENADRYL) CDT 50 mg, intramuscular, Once, On Mon12/09/19 at 2106, For 1 dose ketorolac injection 30 mg Given 12/09/2019 9:17 PM CDT 30 mg Right Ventrogluteal (TORADOL) 30 mg, intramuscular, Once, On Mon12/09/19 at 2106, For 1 dose, Adult IV push rate: Over 15 seconds. Peds IV push rate: Over 1 minute. 60 mg dose only for IM, not recommended for IV. promethazine injection 12.5 Given 12/09/2019 9:16 PM 12.5 mg Left Ventrogluteal mg (PHENERGAN) CDT 12.5 mg, intramuscular, Once, On Mon12/09/19 at 2106, For 1 dose documented in this encounter Active and Recently Administered Medications Times are shown in CDT. Scheduled Medication Order 12/07/2019 12/08/2019 12/09/2019 diphenhydrAMINE injection 50 mg (BENADRYL) (COMPLETED) 2117 (Given - Provider: Garrett Drake R.N.) 50 mg, intramuscular, Once, Mon12/09/19 at 2106, For 1 dose ketorolac injection 30 mg (TORADOL) (COMPLETED) 2116 (Given - Provider: Garrett Drake R.N.) 30 mg, intramuscular, Once, Mon12/09/19 at 2106, For 1 dose, Adult IV push rate: Over 15 seconds. Peds IV push rate: Over 1 minute. 60 mg dose only for IM, not recommended for IV. 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
--- OUTSIDE RECORDS SUMMARY | 2022-03-16 15:04 | XMS_ITS | Encounter Summary ---
:1980 Author Organization [facility] Address [address] [place] [address] Care Team Providers Name Role Phone Elsewhere, Pcp Primary Care Provider Unavailable Reason for Visit Reason Comments script wanted Encounter Details Date Type Department Care Team Description 12/10/2019 Clinical Communication Department of Alexsander Marshall [facility] Orthopedic Surgery Tushar Claire [place] [address] [address] [place] [address] [facility] [address] [place], [place] [phone] [address] (Work) [phone] Social History Tobacco Use Types Packs/Day Years [...] or relatives? How often do you attend bahai or More than 4 times per year 11/09/2020 anabaptism services? Do you belong to any clubs or No 11/09/2020 organizations such as bahai groups, unions, fraternal or athletic groups, or [...] to pay for the very basics like [employer] hat hard 11/09/2020 food, housing, medical care, [...] this encounter Miscellaneous Notes Telephone Encounter - Jessica Claudio L.PLashawnNLashawn - 12/10/2019 10:26 AM CDT Rx sent and patient informed Telephone Encounter - Rea Frazier - 12/10/2019 9:46 AM CDT Reason for Communication: Dulce needs a prescription for a knee scooter sent to [facility] today.So it will be ready after surgery tomorrow Current Can Nursing/Provider leave a detailed message?: yes Did the patient refuse triage through Nurse line? 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
--- OUTSIDE RECORDS SUMMARY | 2022-03-16 15:04 | XMS_ITS | Encounter Summary ---
:1980 Author Organization [facility] Address [address] [place] [address] Care Team Providers Name Role Phone Elsewhere, Pcp Primary Care Provider Unavailable Encounter Details Date Type Department Care Team Description 12/11/2019 Orders Only Department of Alexsander Marshall, Injury A nkle Subsequent Right (Primary Dx); Orthopedic Surgery in M.D. 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
--- OUTSIDE RECORDS SUMMARY | 2022-03-16 15:04 | XMS_ITS | Encounter Summary ---
:1980 [facility] Address [address] [place] [address] Care Team Providers Name Role Phone Elsewhere, Pcp Primary Care Provider Unavailable Reason for Referral Outpatient (Routine) - Closed Specialty Diagnoses / Procedures Referred By Contact Refer red To Contact Orthopedic Surgery Sandhya Lyons APRN, [facility] D.N.P[facility] [address] [place] [address] Referral ID Status Reason Start Date Expiration Date Visits Requ ested Visits Authorized [id number] Closed 12/11/2019 12/10/2020 1 1 Scheduling Instructions Ordered images/tests are associated with this appointment. Reason for Visit Auth/Cert Specialty Diagnoses / Procedures Referred By Contact Refer red To Contact Diagnoses Pain Ankle Right Pain Ankle Right [M25.571] Procedures OK RPR FLEXOR TNDN LEG WO GRFT OK RPR FLEXOR TENDON LEG SECNDRY OK RPR TNDN FLEXOR FT WO GRFT OK RPR TNDN FLX FT W GRFT EA OK RPR FOOT TENDON PERONEUS BREVIS TENDON REPAIR FOOT Referral ID Status Reason Start Date Expiration Date Visits Requ ested Visits Authorized [id number] 1 1 Encounter Details Date Type Department Care Team Description 12/11/2019 Hospital Encounter [facility] MAIN OR Alexsander Marshall Pain Ankle Right [address] M.D. (Primary Dx) [place]AN [place] [address] [id number] CHARAN Vega [phone] Social History Tobacco Use Types Packs/Day [...] More than 4 times per year 11/09/2020 spiritism services? Do you belong to any clubs [...] Sign Reading Time Taken Comments Blood Pressure 106/75 12/11/2019 3:15 PM CDT Pulse 75 12/11/2019 3:15 PM CDT Temperature 36.4 ??C (97.5 ??F) 12/11/2019 2:15 PM CDT Respiratory Rate 14 12/11/2019 2:15 PM CDT Oxygen Saturation 96% 12/11/2019 3:15 PM CDT Inhaled Oxygen Concentration - - Weight 92.8 kg (204 lb 9.4 oz) 12/11/2019 10:49 AM CDT Height - - Body Mass Index 37.42 12/05/2019 9:55 AM CDT documented in this encounter Medications at [...] and patches documented as of this encounter H&P Notes Alexsander Marshall M.D. - 12/11/2019 3:32 PM CDT INTERVAL HISTORY AND PHYSICAL PRE-PROCEDURE UPDATE H&P reviewed. The patient was examined and there are no significant changes to the H&P. I discussed with this patient the tailored Risks, Benefits, Alternatives of treatment for their orthopedic condition given their specific medical and orthopedic issues at length today. The patient understands these. All questions were answered and they desire to precede with surgical treatment. Alexsander Marshall M.D. Source Note - Kaila Osorio M.D. - 12/11/2019 11:32 AM CDT Preprocedure Anesthesia & H&P Assessment Procedure Summary Date/Time: 12/11/19 1400 Procedure: PERONEUS BREVIS TENDON REPAIR FOOT-Right ankle peroneus brevis tendon repair,possible brostrom repair (Right ) Diagnosis: Pain Ankle Right [M25.571] Pre-op diagnosis: Pain Ankle Right [M25.571] Location: [address] [facility] / [facility] - Surgeon: Alexsander Marshall M.D. Pertinent components of [...] with patient /legal guardian or through an blow torch burner. The use of blood products not discussed Approval to Proceed: approved for anesthesia documented in this encounter OR Notes Op Note - Alexsander Marshall M.D. - 12/11/2019 12:39 PM CDT FULL OP NOTE Procedure(s) (LRB): PERONEUS BREVIS TENDON REPAIR FOOT-Right ankle peroneus brevis tendon repair, brostrom repair (Right) Surgeon(s) and Role: * Alexsander Marshall M.D. - Primary Project Management Consultant: Sandhya Lyons APRN, C.N.P., D.N.P. Anesthesia Type General Pre-operative Diagnosis Pain Ankle Right Post-operative Diagnosis Pain Ankle Right Full Operative Note Details PRE-OPERATIVE DIAGNOSIS 1. Right ankle peroneus brevis tendon tear. 2. Right ankle anterior talofibular ligament tear. POST-OPERATIVE DIAGNOSIS 1. Right ankle peroneus brevis tendon tear. 2. Right ankle anterior talofibular ligament tear. PROCEDURE(S) 1. Right peroneus brevis tendon repair. 2. Right ankle Brostrom reconstruction. SURGEON(S) Alexsander Marshall M.D. ANESTHESIA TYPE Spinal anesthesia. INDICATIONS: Dulce is a 39-year-old woman who sustained an injury to her right ankle. She has had problems with persistent pain to the lateral side of her ankle for a longstanding period of time. Despite conservative measures, made no significant improvement in her symptoms. Discussed risks, benefits, and alternatives to peroneus brevis tendon repair as well as possible Brostrom reconstruction with her. She understands these and desires to proceed with surgery. DESCRIPTION OF PROCEDURE Patient was brought to the operating room. Patient was placed on the table in the supine position. General anesthesia was smoothly induced. Tourniquet placed around her right thigh. Right leg was then prepped and draped in sterile fashion. Leg was exsanguinated. Tourniquet inflated to 250 mmHg. A curvilinear incision was made on the lateral aspect of the ankle and was brought down through the subcutaneous tissue down to the peroneal tendon sheath. The sheath was then identified and cut sharply. Oncethat was completed, we then evaluated both the tendons. The peroneus longus appeared to be generallyintact without any significant tearing. The peroneus brevis did appear to be quite flattened out butalso had a tear throughout its midsection of this. Once that was determined, we then began our repair with 0 Vicryl in an interrupted and running fashion along the tendon tubularizing it into a more appropriate position and closing down the split tear. Once that was completed, we then turned our attention to evaluate the anterior talofibular ligament. Notably, the labrum was quite thin and stretched out in this region. Once that was determined, we then cut through the talofibular ligament that was left, and then using Ultrabraid suture, then placed several knots reattaching the tissue in a hpzj-kmst-yzpoh-type fashion, and once that was repaired, the incision was then copiously irrigated. The retin aculum of the peroneal tendons then closed using 3-0 Vicryl in an interrupted [id number] fashion followed by closure of the subcutaneous tissue using 2-0 Vicryl, and the skin was then closed using3-0 nylon. The incision was then washed and dried. Nonadherent dressing was applied followed by a CAM walker. The tourniquet was let down. Patient was transferred to recovery in good condition. Needle and sponge counts correct. Specimens None Drains Estimated Blood Loss 10 mL Implants None Intra-op Medications Date/Time Order Dose Route Action Action by 12/11/2019 1231 ceFAZolin in dextrose (iso-osm) IVPB 2 g (ANCEF) 2 g intravenous Given Tristin Crockett 12/11/2019 1300 bupivacaine PF 0.25 % (2.5 mg/mL) injection (MARCAINE) 12 mL infiltration Given Cory Marshall M.D. Brief Op Note - Alexsander Marshall M.D. - 12/11/2019 12:39 PM CDT BRIEF OP NOTE Procedure(s) (LRB): PERONEUS BREVIS TENDON REPAIR FOOT-Right ankle peroneus brevis tendon repair, brostrom repair (Right) Surgeon(s) and Role: * Alexsander Marshall M.D. - Primary Project Management Consultant: Sandhya Lyons APRN, C.N.P., D.N.P. Anesthesia Type General Pre-operative Diagnosis Pain Ankle Right Post-operative Diagnosis Pain Ankle Right Brief Operative Note Details Specimens None Drains None Estimated Blood Loss 10 mL Implants None Alexsander Marshall M.D. documented in this encounter Plan of Treatment Scheduled Referrals Name Type Priority Associated Order Schedule Diagnoses Orthopedic Surgery Outpatient Referral Routine Ex pected: Post Op (clinic) 12/25/2019 (Approximate), Expires: 12/10/2022 documented as of this encounter Procedures Procedure Name Priority Date/Time Associated Diagnosis Comme nts ADULT OXYGEN Routine 12/11/2019 1:33 PM THERAPY CDT PERONEUS BREVIS 12/11/2019 12:11 PM Pain Ankle Right TENDON REPAIR FOOT CDT TEST, STAT 12/11/2019 10:59 AM Resul ts for this POCT, U (LAB) CDT procedure are in the results section. documented in this encounter Results Test, POCT, Urine (lab) (12/11/2019 10:59 AM CDT) P athologist Signature Negative 12/11/2019 [facility] Test, POCT, U 11:15 AM CDT Specimen Anatomical Collection Method Collection Time Receive d Time (Source) Location / / Volume Laterality Urine (Urine, 12/11/2019 10:59 12/11/2019 Clean Catch) AM CDT 11:05 AM CDT Alexsander Marshall M.D. LAB POCT ORDERABLES - DEVICE Performing Organization Address City/State/[facility] Code Phon e Number [facility]- [address], [place] [address] [place] [address] System in [address] documented in this encounter Visit Diagnoses Diagnosis Pain Ankle Right - Primary Pain Ankle Right documented in this encounter Admitting Diagnoses Diagnosis Pain Ankle Right documented in this encounter Administered Medications Inactive Administered Medications - up to 3 most recent administrations Medication Order MAR Action Action Date Dose Rate Site acetaminophen tablet 1,000 mg Given 12/11/2019 11:01 AM CDT 1,00 0 mg (TYLENOL) 1,000 mg, oral, Once, On Mon12/11/19 at 1045, For 1 dose, Pre-Op fentaNYL injection 25 mcg (SUBLIMAZE) Given 12/11/2019 1:57 PM CDT 25 mcg 25 mcg, intravenous, Every 2 min PRN, For pain 4 or greater (maximum 100 mcg). If max dose of Fentanyl is reached and if pain is greater than 4, discontinue Fentanyl: give Hydromorphone, Starting on Mon12/11/19 at 1332, PACU (only) Given 12/11/2019 1:54 PM CDT 25 mcg Given 12/11/2019 1:51 PM CDT 25 mcg lactated ringers New Bag 12/11/2019 2:00 PM CDT 20 mL/hr 20 mL/hr 20 mL/hr, intravenous, Continuous, Starting on Mon12/11/19 at 1045, Pre-Op Rate/Dose Verify 12/11/2019 12:11 PM CDT New Bag 12/11/2019 11:04 AM CDT 20 mL/hr 20 mL/hr oxyCODONE IR tablet 10 mg (ROXICODONE) Given 12/11/2019 2:53 PM CDT 10 mg 10 mg, oral, Every 4 hours PRN, severe pain or score 7-10 of 10, Starting on Mon12/11/19 at 1419, PACU & Post-Op, Second line therapy. If patient is greater than 7 after 2 hours, call service for new order. oxyCODONE IR tablet 5 mg (ROXICODONE) 5 mg, oral, Every 4 hours PRN, moderate pain or score 4-6 of 10, Starting on Mon12/11/19 at 1419, PACU & Post-Op, Second line therapy traMADoL tablet 100 mg (ULTRAM) 100 mg, oral, Every 6 hours PRN, moderat e pain or score 4-6 of 10, severe pain or score 7-10 of 10, Starting on Mon12/11/19 at 1419, PAC U & Post-Op, First line therapy or for pain greater than comfort goal (not to exceed 400 mg in 24 hours)., Drug Monitoring Program: Pharmacist to a djust medication dosing based on indication and drug clearance factors. traMADoL tablet 50 mg (ULTRAM) 50 mg, oral, Every 6 hours PRN, mild pain or score 1-3 of 10, Starting on Mon12/11/19 at 1419, PACU & Post-Op, Fir st line therapy, Drug Monitoring Program: Pharmacist to adjust medication dosing based on indica tion and drug clearance factors. documented in this encounter Active and Recently Administered Medications Times are shown in CDT. Scheduled Medication Order 12/09/2019 12/10/2019 12/11/2019 acetaminophen tablet 1,000 mg (TYLENOL) (COMPLETED) 1101 (Given - Provider: Julita R Christian, R.N.) 1,000 mg, oral, Once, Mon12/11/19 at 1045, For 1 dose, Pre-Op ceFAZolin in dextrose (iso-osm) IVPB 2 g (ANCEF) (COMPLETED) 1231 (Given - Provider: Vaughn Crockett CRNA, R.N.) 2 g (rounded from 2.155 g = 25 mg/kg ? 86.2 kg), intravenous, at 100 mL/hr, Administer over 30 Minutes, Once, Mon12/11/19 at 1045, For 1 dose, Intra-Op, Preoperatively within 1 hour prior to surgical i ncision premix bag, Drug Monitoring Prog doi: Pharmacist to adjust medication dosing based on indication and drug clearance factors., Indications: Prophylaxis, surgical Continuous Medication Order 12/09/2019 12/10/2019 12/11/2019 lactated ringers 1104 (New Bag - Provider: Julita Gonzales RLashawnNLashawn)1211 (Rate/Dose Verify - Provider: Vaughn Crockett CRNA, R.N.)1316 (Stopped - Provider: Vaughn Crockett CRNA, R.N.)1400 (New Bag - Provider: Maryann Ferreira RLashawnNLashawn) 20 mL/hr, intravenous, at 20 mL/hr, Cont inuous, Starting Mon12/11/19 at 1045, Pre-Op NaCl 0.9% infusion 1430 (Due) 50 mL/hr, intravenous, at 50 mL/hr, Cont inuous, Starting Mon12/11/19 at 1430, PACU & Post-Op, Until tolerating oral diet PRN Medication Order 12/09/2019 12/10/2019 12/11/2019 bupivacaine PF 0.25 % (2.5 mg/mL) injection (MARCAINE) (CANCELED ) 1300 (Given - Provider: Alexsander Marshall M.D.) As needed, Starting Mon12/11/19 at 1300, Intra-Op dexamethasone injection 4 mg (DECADRON) 4 mg, intravenous, Once as needed, nause a, vomiting, Starting Mon12/11/19 at 1419, For 1 dose, PACU & Post-Op, Give only if NOT given during the pre or intraoperative period. If ondansetron ordered, give dexamethasone with first dose of ondansetron. fentaNYL injection 25 mcg (SUBLIMAZE) (CANCELED) 1346 (Given - Provider: Maryann Ferreira R.N.)1351 (Given - Provider: Maryann Ferreira R.N.)1354 (Given - Provider: Maryann Ferreira R.N.)1357 (Given - Provider: Harvinder Kinney.N.) 25 mcg, intravenous, Every 2 min PRN, Fo r pain 4 or greater (maximum 100 mcg). If max dose of Fentanyl is reached and if pain is greater than 4, discontinue Fentanyl: give Hydromorphone, Starting Mon12/11/19 at 1332, PACU (only) haloperidol lactate injection 1 mg (HALDOL) 1 mg, intravenous, Every 6 hours PRN, na usea, vomiting, Starting Mon12/11/19 at 1419, For 48 hours, PACU & Post-Op, Total of 3 doses in 24 hour period. RASS must be -2 or higher to administer. Reass ess for nausea or vomiting after at leas t 10 minutes. If nausea or vomiting persists administer next ordered antiemetic medications (order for antiemetic medication administration ondansetron then haloperidol then promethazine) HYDROmorphone injection 0.5 mg (DILAUDID) 0.5 mg, intravenous, Every 2 hour PRN, s evere pain or score 7-10 of 10, Starting Mon12/11/19 at 1419, For 2 doses, PACU & Post-Op, May administer if pain is greater than 7 after scheduled and PRN re gimen exhausted. If pain remains greater than 7, notify primary service. naloxone injection 0.2 mg (NARCAN) 0.2 mg, intravenous, As needed, respirat ory depression, Starting Mon12/11/19 at 1419, For RASS Score -4 or less, respiratory rate of less than 8 breaths/min. Notify provider/service and rapid response team (if available at institution). ondansetron (PF) injection 4 mg (ZOFRAN) 4 mg, intravenous, Every 6 hours PRN, na usea, vomiting, Starting Mon12/11/19 at 1419, For 48 hours, PACU & Post-Op, Reassess for nausea or vomiting after at least 10 minutes. If nausea or vomiting p ersists administer next ordered antiemet ic medications (order for antiemetic medication administration ondansetron then droperidol then promethazine). oxyCODONE IR tablet 10 mg (ROXICODONE)(Linked Group 1) 1453 (Given - Provider: Maryann Ferreira R.N.) 10 mg, oral, Every 4 hours PRN, severe p ain or score 7-10 of 10, Starting 12/11/19 at 1419, PACU & Post-Op, Second line therapy. If patient is greater than 7 after 2 hours, call service for new order. oxyCODONE IR tablet 5 mg (ROXICODONE)(Linked Group 1) 1453 (See Alternative - Provider: Maryann Ferreira R.N.) 5 mg, oral, Every 4 hours PRN, moderate pain or score 4-6 of 10, Starting 12/11/19 at 1419, PACU & Post-Op, Second line therapy promethazine injection 6.25 mg (PHENERGAN) 6.25 mg, intravenous, Every 6 hours PRN, nausea, vomiting, Starting 12/11/19 at 1419, For 48 hours, PACU & Post-Op, RASS must be -2 or higher to administer. Reassess for nausea/vomiting after at least 10 minutes. If nausea or vomiting persists administer next ordered antiemetic medications (order for antiemetic medication administration ondansetron then droperidol then promethazine). traMADoL tablet 100 mg (ULTRAM)(Linked Group 2) 100 mg, oral, Every 6 hours PRN, moderat e pain or score 4-6 of 10, severe pain or score 7-10 of 10, Starting 12/11/19 at 1419, PACU & Post-Op, First line therapy or for pain greater than comfort goal (not to exceed 400 mg in 24 hours). , Drug Monitoring Program: Pharmacist to adjust medication dosing based on indication and drug clearance factors. traMADoL tablet 50 mg (ULTRAM)(Linked Group 2) 50 mg, oral, Every 6 hours PRN, mild aicha n or score 1-3 of 10, Starting 12/11/19 at 1419, PACU & Post-Op, First line therapy, Drug Monitoring Program: Pharmacist to adjust medication dosing based on indication and drug clearance factors. Linked Groups Order Group 1: oxyCODONE IR tablet 5 mg (ROXICODONE)Jump to med 5 mg, oral, Every 4 hours PRN, moderate pain or score 4-6 of 10, Starting Mon12/11/19 at 1419, PACU & Post-Op
Second line therapy
Or oxyCODONE IR tablet 10 mg (ROXICODONE)Jump to med 10 mg, oral, Every 4 hours PRN, severe p ain or score 7-10 of 10, Starting Mon12/11/19 at 1419, PACU & Post-Op
Second line therapy. If patient is greater than 7 after 2 hours, call service for new order.
Group 2: traMADoL tablet 50 mg (ULTRAM)Jump to med 50 mg, oral, Every 6 hours PRN, mild aicha n or score 1-3 of 10, Starting Mon12/11/19 at 1419, PACU & Post-Op
First line therapy
Drug Monitoring Program: Pharmacist to adjust medi cation dosing based on indication and dr ug clearance factors. Or traMADoL tablet 100 mg (ULTRAM)Jump to med 100 mg, oral, Every 6 hours PRN, moderat e pain or score 4-6 of 10, severe pain or score 7-10 of 10, Starting Mon12/11/19 at 1419, PACU & Post-Op
First line therapy or for pain greater t miller comfort goal (not to exceed 400 mg i n 24 hours).
Drug Monitoring Program: Pharmacist to adjust medication dosing based on indication and drug clearance factors. 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
--- OUTSIDE RECORDS SUMMARY | 2022-03-16 15:04 | XMS_ITS | Encounter Summary ---
:1980 Author Organization [facility] Address [address] [place] [address] Care Team Providers Name Role Phone Elsewhere, Pcp Primary Care Provider Unavailable Reason for Visit Reason Comments Med Refill Encounter Details Date Type Department Care Team Description 12/17/2019 Refill Department of Orthopedic Alexsander Marshall M.D. Med Refill Surgery in [address] [phone] [place] [address] [place] [address] [phone] Social History Tobacco Use Types Packs/Day Years [...] More than 4 times per year 11/09/2020 scientology services? Do you belong to any clubs [...] to pay for the very basics like InternetArrayw hat hard 11/09/2020 food, housing, medical care, [...] Miscellaneous Notes Telephone Encounter - Jessica Claudio L.P.N. - 12/18/2019 9:42 AM CDT Is there any update regarding this? I see we are potentially waiting for insurance, patient is out of medication. Telephone Encounter - Denia Mcdermott - 12/17/2019 2:11 PM CDT Thank you for reaching outJessica. We received your prior authorization request for HYDROCODONE-ACETAMINOPHEN and have it added to our workflow, marked urgent. We will get to this as soon as possible. We are also experiencing unusually high volumes so please allow a few days for this process to be co mpleted. If wishing to discuss this PA with the [facility]PP[facility] team, please send a communication within [employer] to [facility] [employer] and your inquiry will be reviewed Thank you! The OPPA team Telephone Encounter - Jessica Claudio LLashawnP.N. - 12/17/2019 1:58 PM CDT Per pharmacy, a PA is required, are we able to submit for an urgent Prior authorization? Patient will be out of medication today Telephone Encounter - Jessica Claudio L.P.N. - 12/17/2019 10:36 AM CDT Patient notified Telephone Encounter - Sandhya Lyons APRN, C.N.PLashawn, D.N.P. - 12/17/2019 10:31 AM CDT Please notify patient that I have refilled her hydrocodone and electronically sent it to her pharmacy - [facility]. [facility] was originally selected. Thanks. Telephone Encounter - Jessica Claudio L.P.N. 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
--- OUTSIDE RECORDS SUMMARY | 2022-03-16 15:04 | XMS_ITS | Encounter Summary ---
:1980 Author Organization [facility] Address [address] [place] [address] Care Team Providers Name Role Phone Elsewhere, Pcp Primary Care Provider Unavailable Reason for Visit Reason Comments Ankle Pain Pt presents to ED and is con cerned for new bruising around right ankle. Pt had surgery to her right ank le 8 days ago. Encounter Details Date Type Department Care Team Description 12/19/2019 Emergency [place] Emergency Jose Melissa, Wound Postoperative Exam Department P.A.-C. (Primary Dx) [address] [address] [place], [place] [phone] Social History Tobacco Use Types Packs/Day [...] or relatives? How often do you attend roman catholic or More than 4 times per year 11/09/2020 baptist services? Do you belong to any clubs or No 11/09/2020 organizations such as roman catholic groups, unions, fraternal or athletic groups, [...] Sign Reading Time Taken Comments Blood Pressure 131/91 12/19/2019 9:45 PM CDT Pulse 61 12/19/2019 10:00 PM CDT Temperature 36.2 ??C (97.2 ??F) 12/19/2019 9:45 PM CDT Respiratory Rate 18 12/19/2019 9:45 PM CDT Oxygen Saturation 97% 12/19/2019 10:00 PM CDT Inhaled Oxygen Concentration - - Weight 92.8 kg (204 lb 9.4 oz) 12/19/2019 9:54 PM CDT Height - - Body Mass Index 37.42 12/05/2019 9:55 AM CDT documented in this encounter Discharge Instructions AttachmentsThe following attachments cannot be sent through Care Everywhere. Wound Care Adult (Wolof)documented in this encounter Medications at Time of Discharge Medication Sig Dispensed Refills Start Date End Date cetirizine (ZyrTEC) 10 mg 0 05/16/2019 03/18/2020 tablet cholecalciferol, vitamin Take 1,000 Units by 0 07/20/2021 D3, (cholecalciferol) mouth daily. 1,000 Unit tablet HYDROcodone-acetaminophen Indication: Acute 40 tablet 0 04/201901/22/2020 (NORCO) 5-325 mg per Pain Exception. Take tabletIndications: Acute 1-2 tablets every Pain Exception 4-6 hours as needed for pain methylcellulose, Take 2 tablets by 0 0 12/25/2019 laxative, (CITRUCEL) 500 mouth 2 (two) times mg tablet a day. ondansetron ODT Take 1 tablet (4 mg 20 tablet 0 12/17/2019 02/03/2020 (ZOFRAN-ODT) 4 mg total) by mouth disintegrating tablet every 8 (eight) hours as needed for nausea or vomiting. oxyCODONE (ROXICODONE) 5 Take 1-2 tablets 30 tablet 0 12/1012/25/2019 mg immediate release (5-10 mg total) by tabletIndications: mouth every 4 (four) Prolonged Acute hours as needed for Pain/Traumatic Injury pain Indication: Prolonged Acute Pain/Traumatic Injury. PARoxetine (PAXIL) 10 mg Take 10 mg by mouth 0 02/04/2020 tablet daily. topiramate (TOPAMAX) 50 Take 50 mg by mouth 0 02/04/2020 mg tablet daily. UNABLE TO FIND Med Name: Thrive, 0 vitamins, shakes, and patches documented as of this encounter ED Notes Jose Melissa P.A.-C. - 12/19/2019 10:21 PM CDT Images from the original note were not included. SUBJECTIVE CHIEF COMPLAINT/REASON FOR VISIT Ankle Pain (Pt presents to ED and is concerned for new bruising around right ankle. Pt had surgery to her right ankle 8 days ago.) HISTORY OF PRESENT ILLNESS 39-year-old female they a status post right peroneus brevis tendon repair presents ER with complaints of bruising near the incision site that she 1st noticed on last several days. Patient states she has continued to have some discomfort after the surgery. She denies warmth to touch, erythema, purulence discharge, or fevers. Discomfort is worse with palpation and movement. Improves somewhat with rest.Nothing else has made symptoms better or worse. REVIEW OF SYSTEMS Constitutional: Negative for activity change and fever. HENT: Negative for congestion. Respiratory: Negative for cough. Cardiovascular: Negative for chest pain. Gastrointestinal: Negative for abdominal pain. Endocrine: Negative for polyuria. Genitourinary: Negative for flank pain. Musculoskeletal: Negative for extremity pain. Negative except for HPI Skin: Negative for rash. Neurological: Negative for headaches. Psychiatric/Behavioral: Negative for confusion. OBJECTIVE Initial Vitals [12/19/195] Temperature Pulse Rate Heart Rate Resp Rate Blood Pressure SpO2 36.2 ??C 93 -- 18 (!) 131/91 95 % Pain Score 4 PHYSICAL EXAMINATION Constitutional: Nursing note and vitals [...] normal. There is no abdominal tenderness. Musculoskeletal: Feet: Comments: No suspicion for septic arthritis. Neurological: She is alert and oriented to person, place, and time. Skin: Skin is warm. ASSESSMENT/PLAN Impression and Plan 39-year-old female day 8 status post surgical repair of peroneus brevis. Patient is concerned due tothe appearance of ecchymosis near the surgical site. Physical exam reveals no erythema, warmth to touch, purulent discharge, fluctuant mass, or identifiable abscess. Based on patient's history and physical exam and not suspicious for postoperative infection, septic arthritis. Patient has follow-up appointment with her surgeon and I have encouraged her to keep the same. She should return to the ER immediately if new symptoms develop, current symptoms worsen, or patient becomes concerned. Patient is discharged in good condition. I reviewed previous medical records including documentation from previous visits. Final Diagnoses: as of Dec 20 2151 Wound Postoperative Exam Jose Melissa, PLeeroy. 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
--- OUTSIDE RECORDS SUMMARY | 2022-03-16 15:04 | XMS_ITS | Encounter Summary ---
:1980 Author Organization [facility] Address [address] [place] [address] Care Team Providers Name Role Phone Elsewhere, Pcp Primary Care Provider Unavailable Reason for Visit Reason Comments Med Refill Encounter Details Date Type Department Care Team Description 12/12/2019 Refill Department of Orthopedic Alexsander Marshall M.D. Med Refill Surgery in [address] [address] [place] [address] [place] [address] [phone] Social History Tobacco Use Types Packs/Day Years [...] How often do you attend mandaen or More than 4 times per year 11/09/2020 restorationism services? Do you belong to any clubs or No 11/09/2020 organizations such as mandaen groups, unions, fraternal [...] to pay for the very basics like [employer] hat hard 11/09/2020 food, housing, medical care, [...] Telephone Encounter - Jessica Claudio L.P.N. 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
--- OUTSIDE RECORDS SUMMARY | 2022-03-16 15:04 | XMS_ITS | Encounter Summary ---
:1980 Author Organization [facility] Address [address] [place] [address] Care Team Providers Name Role Phone Elsewhere, Pcp Primary Care Provider Unavailable Reason for Visit Reason Comments Migraine Started at 3am, tried medica tions with no relief Encounter Details Date Type Department Care Team Description 12/24/2019 Emergency [place] [facility] Tigist Shay Migraine Headache (Primary Dx); Department Bruce SAHA M.D. Tobacco Use [address] [place] [id number] (Wo rk) Social History Tobacco Use [...] Sign Reading Time Taken Comments Blood Pressure 120/85 12/24/2019 9:15 PM CDT Pulse 79 12/24/2019 9:15 PM CDT Temperature 36.5 ??C (97.7 ??F) 12/24/2019 9:15 PM CDT Respiratory Rate 18 12/24/2019 9:15 PM CDT Oxygen Saturation 98% 12/24/2019 9:15 PM CDT Inhaled Oxygen Concentration - - Weight - - Height - - Body Mass Index - - documented in this encounter Discharge Instructions AttachmentsThe following attachments cannot be sent through Care Everywhere. Recurrent Migraine Headache Yovo-mj-Zehf (Haitian)Smoking Cessation, Tips for Success (Haitian)documented in this encounter Medications at Time of [...] ED Notes Gutierrez Shay III, M.D. - 12/24/2019 8:43 PM CDT SUBJECTIVE CHIEF COMPLAINT/REASON FOR VISIT Migraine (Started at 3am, tried medications with no relief) HISTORY OF PRESENT ILLNESS History provided by: Patient and medical records Migraine This is a recurrent problem. The current episode started today (299). The problem occurs constantly. The problem has been unchanged. The pain is located in the right unilateral region. The pain does not radiate. The pain quality is similar to prior headaches. The quality of the pain is described as aching and throbbing. The pain is at a severity of 7/10. The pain is moderate. Associated symptoms include insomnia, nausea and photophobia. Pertinent negatives include no loss of balance or vomiting. The symptoms are aggravated by bright light. She has tried oral narcotics, NSAIDs and acetaminophen forthe symptoms. The treatment provided no relief. REVIEW OF SYSTEMS HENT: Negative. Eyes: Positive for photophobia. Respiratory: Negative. Cardiovascular: Negative. Gastrointestinal: Positive for nausea. Negative for vomiting. Skin: Negative. Neurological: Negative for loss of balance. Psychiatric/Behavioral: The patient has insomnia. All other systems reviewed and are negative. OBJECTIVE Initial Vitals [12/24/192030] Temperature Pulse Heart Rate Resp Rate Blood Pressure SpO2 36.1 ??C -- 82 18 111/83 96 % Pain Score 7 PHYSICAL EXAMINATION Constitutional: Nursing note and vitals reviewed. HENT: Head: Normocephalic. Mouth/Throat: Mucous membranes are moist. Eyes: Conjunctivae are normal. Pupils are equal, round, and reactive to light. Neck: Normal range of motion. Neck supple. Cardiovascular: Normal rate, regular rhythm, S1 normal, S2 normal and normal heart sounds. Pulses are strong and palpable. Pulmonary/Chest: Effort normal and breath sounds normal. There is normal air entry. Abdominal: Soft. Bowel sounds are normal. Neurological: She is alert and oriented to person, place, and time. No cranial nerve deficit. Skin: Skin is warm, dry, intact and normal color. ASSESSMENT/PLAN Impression and Plan Probable classic migraine headache. The patient declined IV fluids and an IV altogether. Attempted initial standard therapy. Moderate improvement of headache at the time discharge. She is requesting discharge to home. Symptomatic therapies discussed in detail. Recommend followup if not improving within the next seven to 10 days. Differential Diagnoses Life threatening differential diagnoses include: SAH, meningitis, encephalitis, carbon monoxide poisoning and intracerebral hemorrhage. Other differential diagnoses include, but are not limited to: Migraine, cluster headache, tension headache, RESEARCH HYDRAULIC ENGINEER vasculitis, mass lesion, temporal arteritis, acute closed [...] previous visits. Final Diagnoses: as of Dec 23 2116 Migraine Headache Tobacco Use Gutierrez Shay III, M.D. 12/24/192118 documented in this encounter Plan of Treatment Not on filedocumented as of this encounter Visit Diagnoses Diagnosis Migraine Headache - Primary Tobacco Use documented in this encounter Administered Medications Inactive Administered Medications - up to 3 most recent administrations Medication Order MAR Action Action Date Dose Rate Site diphenhydrAMINE injection Given 12/24/2019 8:54 PM 25 mg Left Dorsogluteal 25 mg (BENADRYL) CDT 25 mg, intramuscular, Once, On Mon12/24/19 at 2052, For 1 dose droperidoL injection 2.5 mg Given 12/24/2019 8:57 PM CDT 2.5 mg Right Dorsogluteal (INAPSINE) 2.5 mg, intramuscular, Once, On Mon12/24/19 at 2042, For 1 dose ketorolac injection 15 mg Given 12/24/2019 8:56 PM CDT 15 mg Left Dorsogluteal (TORADOL) 15 mg, intramuscular, Once, On Mon12/24/19 at 2042, For 1 dose, Adult IV push rate: Over 15 seconds. Peds IV push rate: Over 1 minute. 60 mg dose only for IM, not recommended for IV. documented in this encounter Active and Recently Administered Medications Times are shown in CDT. Scheduled Medication Order 12/22/2019 12/23/2019 12/24/2019 diphenhydrAMINE injection 25 mg (BENADRYL) (COMPLETED) 2053 (Given - Provider: Angela Cruz R.N.) 25 mg, intramuscular, Once, Mon12/24/19 at 2052, For 1 dose droperidoL injection 2.5 mg (INAPSINE) (COMPLETED) 2056 (Given - Provider: Angela Cruz R.N.) 2.5 mg, intramuscular, Once, e 12/24/19 at 2042, For 1 dose ketorolac injection 15 mg (TORADOL) (COMPLETED) 2055 (Given - Provider: Angela Cruz R.N.) 15 mg, intramuscular, Once, Mon12/24/19 a t 2042, For 1 dose, Adult IV push rate: Over 15 seconds. Peds IV push rate: Over 1 minute. 60 mg dose only for IM, not recommended for IV. 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
--- OUTSIDE RECORDS SUMMARY | 2022-03-16 15:04 | XMS_ITS | Encounter Summary ---
:1980 Author Organization [facility] Address [address] [place] [address] Care Team Providers Name Role Phone Elsewhere, Pcp Primary Care Provider Unavailable Reason for Visit Reason Comments Communication Encounter Details Date Type Department Care Team Description 01/22/2020 Clinical Communication Department of Alexsander Marshall ommunication Orthopedic Surgery Tushar Claire in [place] [address] [address] [facility] [address] [place], [place] [phone] [address] (Work) [phone] Social History Tobacco Use Types Packs/Day Years [...] 11/09/2020 organizations such as taoism groups, unions, fraternal or athletic groups, or [...] to pay for the very basics like [employer] hat hard 11/09/2020 food, housing, medical care, [...] Telephone Encounter - Jaimie Galdamez R.N. - 01/22/2020 8:56 AM CDT Will notify patient time will be available sooner. Telephone Encounter - Sandhya Gibson R.N. - 01/22/2020 8:47 AM CDT Patient calls this morning regarding this message. Informed patient to check in today at 2:30. Patient states that she has green goop coming from incision and it is red around where goop is coming out. Patient states she was hoping to be seen sooner if anything opens up soon to please let her know. Patient agrees to arrive 2:30 for 2:45. Telephone Encounter - Jaimie Galdamez R.N. - 01/22/2020 8:12 AM CDT Please have arrive at 2:30 pm for a 2:45 pm appointment with Barbara Raya. Telephone Encounter - Janel Villalta - 01/22/2020 7:40 AM CDT Reason for Communication: Urgent Appt request Current Can Nursing/Provider leave a detailed message?: yes Did the patient refuse triage through Nurse line? (for symptom based concerns): na Action Needed: Patient had surgery with Dr. Marshall on 12/10. She spoke with Dr. Jeronimo due to ankle issue, and he recommended she come in today to see Dr. Marshall or his team mates. Possible infection in the surgical site. Dulce: [phone] Name of Medication (if relevant): documented in this encounter Plan of Treatment Not on filedocumented as of this encounter Visit Diagnoses Not on filedocumented in this encounter Additional Health Concerns Assessment Noted Time PHQ-9 Depression Total Score: 13 12/25/2019 10:30 AM C DT documented as of this encounter Care Teams House Builder Relationship Specialty Start Date End Date Elsewhere, Pcp PCP - General Internal Medicine 06/25/19 03/18/20 documented as of this encounter
--- OUTSIDE RECORDS SUMMARY | 2022-03-16 15:04 | XMS_ITS | Encounter Summary ---
:1980 Author Organization [facility] Address [address] [place] [address] Care Team Providers Name Role Phone Elsewhere, Pcp Primary Care Provider Unavailable Encounter Details Date Type Department Care Team Description 12/12/2019 Nurse Triage Department of [facility] Sarahi Hutton R.N. Medicine in [address] [facility] [address] [place] [address] (work) [phone] Social History Tobacco Use Types Packs/Day Years [...] More than 4 times per year 11/09/2020 voodoo services? 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
--- OUTSIDE RECORDS SUMMARY | 2022-03-16 15:04 | XMS_ITS | Encounter Summary ---
:1980 Author Organization [facility] Address [address] [place] [address] Care Team Providers Name Role Phone Elsewhere, Pcp Primary Care Provider Unavailable Reason for Visit Reason Comments Communication triage-ortho Encounter Details Date Type Department Care Team Description 12/17/2019 Clinical Communication Department of Sandhya Gibson Orthopedic Surgery Pita, RLashawnNLashawn (triage-ortho) in [place], [address] [place] [address] [address] [facility] [address] [phone] Social History Tobacco Use Types Packs/Day Years [...] Encounter - Jessica Claudio L.P.N. - 12/17/2019 2:46 PM CDT Per Sandhya Lyons, she did attempt to call patient to discuss this, message was left for patient to return call to Miguel's phone. Per Sandhya she can take 1-2 of her norco for pain. We are not going back to Oxycodone at this point or changing to another pain medication, since patient has already changed medications. She can be prescribed some Zofran for nausea,encounraged to ice, elevate, and make sure to take medications with food. An urgent prior authorization has been submitted to Prentice's team to complete for her [place], I did call to check the status, they had just received it from pharmacy (they did not send until this afternoon). They will move it to the front of the line and get it submitted as soon as possible. Telephone Encounter - Jessica Claudio L.P.N. - 12/17/2019 1:[address] Marshall is calling to discuss with patient, he is hesitant to change to another medication due topatient being 6 days post operative and has already tried 2 medications. Telephone Encounter - Jaimie Galdamez R.N. - 12/17/2019 12:13 PM CDT She can try an over the counter medication for the nausea along with the pain medication if it does not interfere with other medications she may be taking. Patient should be taking pain med with food to help reduce nausea. If she prefers a prescription, we can reach out to her surgical team for something. Telephone Encounter - Sandhya Gibson R.N. - 12/17/2019 10:24 AM CDT Special[facility] Triage Call Reason for call/visit Medication change request Call Note: Assessment Patient calls today requesting a change in her pain medication. She has had nausea with both of the pain medications she has tried oxycodone and now [place]. Patient states she is almost out of hydrocodone and sent a refill request for ut would rather have something different to try. She states that herpain after taking 1 hydrocodone is a 5 and if she takes 2 the pain is better but then it makes her too sick. Patient states that she has sensation in her foot, able to wiggle toes, a little swelling, and hasbeen NWB using knee scooter. Patient states she did take her boot off once for about 20 minuets 3 days ago, had some spasming while it was off otherwise boot has been on rest of the time and describes the pain as an ache. Patient states her pain is on right side of her foot and in her groin on the left side which she feels is probably from using it more now that she is NWB on right side. Intervention Patient was instructed to elevate and rest as zahira as possible. Will consult ortho for further medication change recommendations. Has patient called or presented with the same symptom previously yes - 12/11 Is patient experiencing other symptoms: no The following references were used: nursing clinical judgement Education provided: patient/caller able to teach back Disposition/Recommendation: notified provider and awaiting recommendations Caller agreeable to plan of care: yes The following individuals participated in today???s interaction: patient Slunk Skinner used: no Additional concerns addressed: none documented in this encounter Plan of Treatment Not on filedocumented as of this encounter Visit Diagnoses Not on filedocumented in this encounter Additional Health Concerns Assessment Noted Time PHQ-9 Depression Total Score: 1 06/13/2014 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
--- OUTSIDE RECORDS SUMMARY | 2022-03-16 15:04 | XMS_ITS | Encounter Summary ---
:1980 Author Organization [facility] Address [address] [place] [address] Care Team Providers Name Role Phone Elsewhere, Pcp Primary Care Provider Unavailable Reason for Visit Reason Comments Headache headache starting this sacha marcelo Encounter Details Date Type Department Care Team Description 01/20/2020 Emergency [facility] Diana Rucker Mig raine Headache Department P.A.-C., M.S. (Primary Dx) [address] [place] [address] [place] [id number] [phone] Social History Tobacco Use Types Packs/Day Years [...] How often do you attend lutheran or More than 4 times per year 11/09/2020 christian services? Do you belong to any clubs or No 11/09/2020 organizations such as lutheran groups, unions, fraternal [...] to pay for the very basics like [employer] hat hard 11/09/2020 food, housing, medical care, [...] Sign Reading Time Taken Comments Blood Pressure 107/73 01/20/2020 6:21 PM CDT Pulse 62 01/20/2020 6:21 PM CDT Temperature 36.5 ??C (97.7 ??F) 01/20/2020 6:21 PM CDT Respiratory Rate 18 01/20/2020 6:21 PM CDT Oxygen Saturation 98% 01/20/2020 6:21 PM CDT Inhaled Oxygen Concentration - - Weight 90 kg (198 lb 6.6 oz) 01/20/2020 6:22 PM CDT Height - - Body Mass Index 36.29 12/05/2019 9:55 AM CDT documented in this encounter Discharge Instructions Discharge InstructionsDiana Rucker P.A.-C., P.A. - 01/20/2020 7:08 PM CDT Follow-up with neurology, they will be calling you. Return if you developed fevers, begin to feel unwell, if your symptoms worsen or you have any concerns. AttachmentsThe following attachments cannot be sent through Care Everywhere. Recurrent Migraine Headache Pblh-hx-Xzur ([place]gent[place])documented in this encounter Medications at Time of Discharge Medication Sig Dispensed Refills Start Date End Date cetirizine (ZyrTEC) 10 mg 0 05/16/2019 03/18/2020 tablet cholecalciferol, vitamin Take 1,000 Units by 0 07/20/2021 D3, (cholecalciferol) mouth daily. 1,000 Unit tablet HYDROcodone-acetaminophen Indication: Acute 40 tablet 0 04/201901/22/2020 (NORCO) 5-325 mg per Pain Exception. tabletIndications: Acute Take 1-2 tablets Pain Exception every 4-6 hours as needed for pain hydrOXYzine (ATARAX) 25 mg Take 0.5-2 tablets 30 tablet 2 0 12/25/2019 02/03/2020 tabletIndications: Anxiety (12.5-50 mg total) by mouth 2 (two) times a day as needed for anxiety. ondansetron ODT Take 1 tablet (4 mg 20 tablet 0 12/17/2019 02/03/2020 (ZOFRAN-ODT) 4 mg total) by mouth disintegrating tablet every 8 (eight) hours as needed for nausea or vomiting. PARoxetine (PAXIL) 10 mg Take 10 mg by mouth 0 02/04/2020 tablet daily. topiramate (TOPAMAX) 50 mg Take 50 mg by mouth 0 02/04/2020 tablet daily. UNABLE TO FIND Med Name: Thrive, 0 vitamins, shakes, and patches varenicline (CHANTIX ZAKIA) Use as directed on 53 tablet 0 07/08/2020 0.5 mg (11)- 1 mg (42) package tabletIndications: Tobacco instructions, try Use to quit smoking after 1 week. documented as of this encounter ED Notes Diana Rucker P.A.-C., P.A. - 01/20/2020 7:12 PM CDT SUBJECTIVE CHIEF COMPLAINT/REASON FOR VISIT Headache (headache starting this morning) HISTORY OF PRESENT ILLNESS Ms. Lei is a 39 y.o. female who presents with migraine headache. She tells me that she has been getting that much more frequently. In the past she has been able to control these with Benadryl and ibuprofen however more more she has been requiring a visit to the emergency department. This is her 6th visit this year for migraine headache. Usually she is given Toradol, Benadryl and droperidol. She reports in the past she has seen a neurologist in the [facility] for her headaches and states she needs to see a neurologist again. She would like to see somebody within the [facility] system. She is asking for referral. Her headache is in the bilateral frontal region, she does have some photophobia and occasional phonophobia, no changes in her vision, no weakness is noted. She has been quite nauseous without vomiting.She denies any fevers, chills, sweats, vomiting, diarrhea, abdominal pain, chest pain or back pain. She has not had any shortness of breath or cough. No change in her smell or taste. She has tried Benadryl earlier today and has taken 3 ibuprofen just a couple of hours ago. 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 She does smoke cigarettes. She drinks alcohol occasionally. She recently had surgery on her right ankle REVIEW OF SYSTEMS Constitutional: Negative for chills, diaphoresis, fatigue and fever. HENT: Negative. Eyes: Positive for photophobia. Negative for visual disturbance. Respiratory: Negative. Cardiovascular: Negative. Gastrointestinal: Positive for nausea. Negative for abdominal pain, diarrhea and vomiting. Genitourinary: Negative. Musculoskeletal: Negative for neck pain and neck stiffness. Skin: Negative. Negative for rash. Neurological: Positive for headaches. Negative for dizziness, syncope, speech difficulty, weakness, light-headedness and numbness. Psychiatric/Behavioral: Negative. OBJECTIVE Initial Vitals Temperature Pulse Rate Heart Rate Resp Rate Blood Pressure SpO2 01/20/20182001/20/201820 -- 01/20/20 18201/20/20 18201/20/201820 36.5 ??C 62 18 107/73 98 % Pain Score 01/20/20 1822 8 PHYSICAL EXAMINATION Constitutional: Patient is alert and oriented, does not appear to be in acute distress HENT: Head: Normocephalic and atraumatic. Nose: Nose normal. Mouth/Throat: Mucous membranes are moist. Eyes: Conjunctivae and EOM are normal. Pupils are equal, round, and reactive to light. Extraocular Movements: EOM normal. Neck: Normal range of motion. Cardiovascular: Normal rate, regular rhythm and normal heart sounds. Pulses are strong and palpable. No murmur heard.Capillary refill: takes less than 3 seconds, Pulmonary/Chest: Effort normal and breath sounds normal. There is normal air entry. Musculoskeletal: Normal range of motion. Neurological: She is alert. NEURO: - Alert, conversant, oriented x3. - No obvious gross deficits. - CN II-XII grossly intact. - Normal rate/tone/content of speech. - Strength 5/5 in upper and lower extremities. - No sensory deficits in upper and lower extremities. - Normal gait. Skin: Skin is intact. No rash noted. She is not diaphoretic. Psychiatric: She has a normal mood and affect. Her behavior is normal. Judgment and thought content normal. ASSESSMENT/PLAN Impression and Plan Final diagnoses: (G43.909) Migraine Headache Dulce took ibuprofen 2 hours prior to presentation so we will hold off on the Toradol. She will be given 25 mg oral Benadryl and 1.25 mg of droperidol. After approximately half an hour she reports her headache is down to a 2 and is requesting discharge. Given her increased frequency of migraine headaches and emergency room visits we will send over referral to Neurology. Todays visit was reviewed with Ms. Lei in plain,every day language. She is comfortable with the plan of discharge. All questions and concerns were addressed. She is advised to return to the Emergency Department or see their primary care provider if she worsens or develops any new or concerning symptoms. Discharge instructions were given to the patient as well as discussed verbally I reviewed previous medical records including documentation from previous visits. ED Course as of Jan 20 729MonJan 20, 2020 1908 Headache down to a 2 Final Diagnoses: as of Jan 20 729 Migraine Headache Diana Rucker P.A.-C., P.A. 01/21/20 0735 documented in this encounter Plan of Treatment Not on filedocumented as of this encounter Visit Diagnoses Diagnosis Migraine Headache - Primary documented in this encounter Administered Medications Inactive Administered Medications - up to 3 most recent administrations Medication Order MAR Action Action Date Dose Rate Site diphenhydrAMINE capsule 25 mg Given 01/20/2020 6:45 PM CDT 25 mg (BENADRYL) 25 mg, oral, Once, On Mon01/20/20 at 1835, For 1 dose droperidoL injection 1.25 mg Given 01/20/2020 6:46 PM CDT 1.25 m g Right Dorsogluteal (INAPSINE) 1.25 mg, intramuscular, Once, On Mon01/20/20 at 1839, For 1 dose documented in this encounter Active and Recently Administered Medications Times are shown in CDT. Scheduled Medication Order 01/18/2020 01/19/2020 01/20/2020 diphenhydrAMINE capsule 25 mg (BENADRYL) (COMPLETED) 1844 (Given - Provider: Sandhya Ross R.N.) 25 mg, oral, Once, Mon01/20/20 at 1835, For 1 dose droperidoL injection 1.25 mg (INAPSINE) (COMPLETED) 1845 (Given - Provider: Sandhya Ross R.N.) 1.25 mg, intramuscular, Once, Mon01/20/20 at 1839, For 1 dose documented in this encounter Additional Health Concerns Assessment Noted Time PHQ-9 Depression Total Score: 13 12/25/2019 10:30 AM C DT documented as of this encounter Care Teams Neon Sign Installer Relationship Specialty Start Date End Date Elsewhere, Pcp PCP - General Internal Medicine 06/25/19 03/18/20 documented as of this encounter
--- OUTSIDE RECORDS SUMMARY | 2022-03-16 15:04 | XMS_ITS | Encounter Summary ---
:1980 Author Organization [facility] Address [address] [place] [address] Care Team Providers Name Role Phone Elsewhere, Pcp Primary Care Provider Unavailable Reason for Visit Auth/Cert Specialty Diagnoses / Procedures Referred By Contact Refer red To Contact Diagnoses Pain Ankle Right Pain Ankle Right [M25.571] Procedures NC RPR FLEXOR TNDN LEG WO GRFT NC RPR FLEXOR TENDON LEG SECNDRY NC RPR TNDN FLEXOR FT WO GRFT NC RPR TNDN FLX FT W GRFT EA NC RPR FOOT TENDON PERONEUS BREVIS TENDON REPAIR FOOT Referral ID Status Reason Start Date Expiration Date Visits Requ ested Visits Authorized [id number] 1 1 Encounter Details Date Type Department Care Team Description 12/11/2019 Surgery [facility] MAIN OR Alexsander Marshall, PERONEUS BREVIS TENDON [address] M[address] REPAIR FOOT-[place] [phone] peroneus brevis tendon [phone] [place], [place] repair, maggi[place] m repair [id number] (Wo rk) Social History Tobacco Use Types [...] Sign Reading Time Taken Comments Blood Pressure 108/85 12/11/2019 1:45 PM CDT Pulse 72 12/11/2019 1:45 PM CDT Temperature 36.4 ??C (97.5 ??F) 12/11/2019 1:30 PM CDT Respiratory Rate 12 12/11/2019 1:45 PM CDT Oxygen Saturation 95% 12/11/2019 1:45 PM CDT Inhaled Oxygen Concentration - - [...] Pre-op diagnosis: Pain Ankle Right [M25.571] Location: [address] / [facility] - GI Surgeon: Alexsander Marshall M.D. Pertinent [...] with patient /legal guardian or through an asl interpreter. The use of blood products not discussed Approval to Proceed: approved for anesthesia documented in this encounter OR Notes Op Note - Alexsander Marshall M.D. - 12/11/2019 12:39 PM CDT FULL OP NOTE Procedure(s) (LRB): PERONEUS BREVIS TENDON REPAIR FOOT-Right ankle peroneus brevis tendon repair, brostrom repair (Right) Surgeon(s) and Role: * Alexsander Marshall M.D. - Primary Womens Health Nurse Practitioner: Sandhya Lyons APRN, C.N.P., D.N.P. Anesthesia Type [...] several knots reattaching the tissue in a yhgq-hbmv-ofytg-type fashion, and once that was repaired, the incision was then copiously irrigated. The retin aculum of the peroneal tendons then closed using 3-0 Vicryl in an interrupted genhev-ny-ttzfd fashion followed by closure of the subcutaneous [...] Role: * Alexsander Marshall M.D. - Primary Womens Health Nurse Practitioner: Sandhya Lyons APRN, C.N.P., D.N.P. Anesthesia Type [...] POCT ORDERABLES - DEVICE Performing Organization Address City/State/ZIP Code Phon e Number [facility]- [address] [place], [place] [address] [address] [place] [address] System in [place] [address] documented in this encounter Visit Diagnoses Diagnosis Pain Ankle Right - Primary Pain Ankle Right Pain Ankle Right documented in this encounter Admitting Diagnoses Diagnosis Pain Ankle Right documented in this encounter Administered Medications Inactive Administered Medications - up to 3 most recent administrations Medication Order MAR Action Action Date Dose Rate Site acetaminophen tablet 1,000 mg Given 12/11/2019 11:01 AM CDT 1,00 0 mg (TYLENOL) 1,000 mg, oral, Once, On Mon12/11/19 at 1045, For 1 dose, Pre-Op bupivacaine PF 0.25 % (2.5 mg/mL) Given 12/11/2019 1:00 PM CDT 1 2 mL Right Foot injection (MARCAINE) As needed, Starting on Mon12/11/19 at 1300, Intra-Op fentaNYL injection 25 mcg (SUBLIMAZE) Given 12/11/2019 [...] (TYLENOL) (COMPLETED) 1101 (Given - Provider: Julita Gonzales R.N.) 1,000 mg, oral, Once, Mon12/11/19 at [...] i ncision premix bag, Drug Monitoring Prog dio: Pharmacist to adjust medication dosing based on indication and drug clearance factors., Indications: Prophylaxis, surgical Continuous Medication Order 12/09/2019 12/10/2019 12/11/2019 lactated ringers 1104 (New Bag - Provider: Julita Gonzales R.N.)1211 (Rate/Dose Verify - Provider: Vaughn Crockett CRNA, R.N.)1316 (Stopped - Provider: Vaughn Crockett CRNA, R.N.)1400 (New Bag - Provider: Maryann Ferreira R.N.) 20 mL/hr, intravenous, at 20 mL/hr, Cont [...] Provider: Maryann Ferreira R.N.)1357 (Given - Provider: Maryann Ferreira R.N.) 25 mcg, intravenous, Every 2 min PRN, [...] 10, Starting Mon12/11/19 at 1419, PACU & Post-Op, Second line therapy. If patient is greater than 7 after 2 hours, call service for new order. oxyCODONE IR tablet 5 mg (ROXICODONE)(Linked Group 1) 1453 (See Alternative - Provider: Maryann Ferreira R.N.) 5 mg, oral, Every 4 hours PRN, moderate pain or score 4-6 of 10, Starting Mon12/11/19 at 1419, PACU & Post-Op, Second line therapy promethazine injection 6.25 mg (PHENERGAN) 6.25 mg, intravenous, Every 6 hours PRN, nausea, vomiting, Starting Mon12/11/19 at 1419, For 48 [...] 10, Starting Mon12/11/19 at 1419, PACU & Post-Op, First line [...] 10, Starting Mon12/11/19 at 1419, PACU & Post-Op, First line [...] 10, Starting 12/11/19 at 1419, PACU & Post-Op
Second line therapy. If patient is greater than 7 after 2 hours, call service for new order.
Group 2: traMADoL tablet 50 mg (ULTRAM)Jump to med 50 mg, oral, Every 6 hours PRN, mild aicha n or score 1-3 of 10, Starting 12/11/19 at 1419, PACU & Post-Op
First line therapy
Drug Monitoring Program: Pharmacist to adjust medi cation dosing based on indication and dr ug clearance factors. Or traMADoL tablet 100 mg (ULTRAM)Jump to med 100 mg, oral, Every 6 hours PRN, moderat e pain or score 4-6 of 10, severe pain or score 7-10 of 10, Starting 12/11/19 at 1419, PACU & Post-Op
First line therapy or for pain greater t miller comfort goal (not to exceed 400 mg i n 24 hours).
Drug Monitoring Program: Pharmacist to adjust medication dosing based on indication and drug clearance factors. documented in this encounter Additional Health Concerns Assessment Noted Time PHQ-9 Depression Total Score: 1 06/13/2014 1:45 PM ANODE WORKER documented as of this encounter Care Teams Automotive Consultant Relationship Specialty Start Date End Date Elsewhere, Pcp PCP - General Internal Medicine 06/25/19 03/18/20 documented as of this encounter
--- OUTSIDE RECORDS SUMMARY | 2022-03-16 15:04 | XMS_ITS | Encounter Summary ---
:1980 Author Organization [facility] Address [address] [place] [address] Care Team Providers Name Role Phone Elsewhere, Pcp Primary Care Provider Unavailable Reason for Visit Reason Comments Med Refill Encounter Details Date Type Department Care Team Description 12/17/2019 Refill Department of Orthopedic Sandhya Lyons APRN, Med Refill Surgery in [place], [place] C.N.P., D.N.P. [address] [facility] [address] [place] [address] [place] [address] [phone] (Wo rk) Social History Tobacco Use Types [...] encounter Miscellaneous Notes Telephone Encounter - Jessica Claudio, L.P.N. - 12/18/2019 8:23 AM CDT Patient notified of Zofran being sent to pharmacy. documented in this encounter Plan of Treatment Not on filedocumented as of this encounter Visit Diagnoses Not on filedocumented in this encounter Additional Health Concerns Assessment Noted Time PHQ-9 Depression Total Score: 1 06/13/2014 1:[address]/MEDICAL INTERPRETER documented as of this encounter Care Teams Compliance Officer Relationship Specialty Start Date End Date Elsewhere, Pcp PCP - General Internal Medicine 06/25/19 03/18/20 documented as of this encounter
--- OUTSIDE RECORDS SUMMARY | 2022-03-16 15:04 | XMS_ITS | Encounter Summary ---
:1980 Author Organization [facility] Address [address] [place] [address] Care Team Providers Name Role Phone Elsewhere, Pcp Primary Care Provider Unavailable Encounter Details Date Type Department Care Team Description 12/17/2019 Orders Only [facility] - Kareem Rizzo D.O. [address] [place] [address] [place] [address] [place] [address] [phone] (Wo rk) Social History Tobacco Use Types [...] Depression Total Score: 1 06/13/2014 1:45 PM MINK FARMER documented as of this encounter Care Teams Polystyrene Bead Molder Relationship Specialty Start Date End Date Elsewhere, Pcp PCP - General Internal Medicine 06/25/19 03/18/20 documented as of this encounter
--- OUTSIDE RECORDS SUMMARY | 2022-03-16 15:04 | XMS_ITS | Encounter Summary ---
:1980 Author Organization [facility] Address [address] [place] [address] Care Team Providers Name Role Phone Elsewhere, Pcp Primary Care Provider Unavailable Reason for Visit Reason Comments Anxiety has not been on any anxiety medication in the past Medication Visit also wants to get on chantix Appointment Request (Routine) - Closed Specialty Diagnoses / Procedures Referred By Contact Refer red To Contact Family Medicine Referral ID Status Reason Start Date Expiration Date Visits Requ ested Visits Authorized [id number] Closed 12/20/2019 12/19/2020 1 1 Encounter Details Date Type Department Care Team Description 12/25/2019 Telemedicine Department of [facility] Selena Cordoba An xiety (Primary Dx); Medicine, [facility], in [address] [phone] Social History Tobacco Use Types Packs/Day Years [...] 11/09/2020 organizations such as protestant groups, unions, fraNight Zookeeper or athletic groups, or school groups? How [...] documented as of this encounter Progress Notes Selena Cordoba M.D. - 12/25/2019 10:30 AM CDT SUBJECTIVE CHIEF COMPLAINT / REASON FOR VISIT Dulce Lei is a 39 y.o. female who presents for evaluation of Anxiety (has not been on any anxiety medication in the past ) and Medication Visit (also wants to get on chantix). HISTORY OF PRESENT ILLNESS Dulce was seen today via video visit. Patient location: Private home on file. Anxiety: ?? Lots of anxiety related to surgery that was on 12/11/2019. She is non-weight bearing for 6 weeks post op which has largely been contributing to her anxiety with not able to do common things with caring for self and children. She feels that a lot of her anxiety acutely is mostly situational. She didnot notice an increase in her anxiety prior to surgery. ?? Currently on Paxil 10mg daily for depression. She has been on it for about a year. She has never been on a higher dose previously. ?? Anxiety symptoms: Worrying about stuff out of her control. Trouble sleeping due to brain not shutting off. ?? She is scheduled to begin family psychology sessions this month. She she is not currently in individuals psychology sessions. Tobacco use: ?? She is interested in trying Chantix. ?? 1PPD at present. The following portions of the patient's history were reviewed and updated as appropriate: allergies,current medications, family history, medical history, social history, surgical history and problem list. OBJECTIVE PHYSICAL EXAM No vitals were taken today due to video visit. General: Pleasant, alert, no apparent distress. Respiratory: Breathing comfortably on room air. No accessory muscle use with breathing. No audible wheezing. Psych: Mood appropriate. Affect full. Speech clear, fluent, appropriate free. ASSESSMENT / PLAN #1 Anxiety Discussed options for anxiety treatment today including increasing Paxil to 20 mg daily, using Atarax p.r.n. for acute situational anxiety, and individual psychology sessions. She is scheduled to beginfamily psychology sessions this month. Depending on how things go, she will look into adding additional individual psychology sessions if she feels that it is needed. Currently, she feels that her acute increasing anxiety is mostly situational in regards to her recent surgery and the changes that thishas caused. She does not feel that she needs an increase in her Paxil at this time. She would like to trial Vistaril as needed for her acute anxiety. Discussed that if using Vistaril daily, or most days of the week, would recommend increasing Paxil dose. - hydrOXYzine (ATARAX) 25 mg tablet; Take 0.5-2 tablets (12.5-50 mg total) by mouth 2 (two) times a day as needed for anxiety., Starting 12/25/2019, Normal #2 Tobacco Use Tobacco cessation counseling provided today. She is interested in quitting. She would like to proceed with Chantix. - varenicline (CHANTIX ZAKIA) 0.5 mg (11)- 1 mg (42) tablet; Use as directed on package instructions, try to quit smoking after 1 week., Normal Provider location: [facility]. Video start time: 10.35am Video end time: 10:50am Selena Cordoba M.D. 09/09/20 documented in this encounter Plan of Treatment Not on filedocumented as of this encounter Visit Diagnoses Diagnosis Anxiety - Primary Tobacco Use documented in this encounter Additional Health Concerns Assessment Noted Time PHQ-9 Depression Total Score: 13 12/25/2019 10:30 AM C DT documented as of this encounter Care Teams Postdoctoral Scholar Relationship Specialty Start Date End Date Elsewhere, Pcp PCP - General Internal Medicine 06/25/19 03/18/20 documented as of this encounter
--- OUTSIDE RECORDS SUMMARY | 2022-03-16 15:04 | XMS_ITS | Encounter Summary ---
:1980 Author Organization [facility] Address [address] [place] [address] Care Team Providers Name Role Phone Elsewhere, Pcp Primary Care Provider Unavailable Encounter Details Date Type Department Care Team Description 12/12/2019 Clinical Communication Department of Alexsander Marshall , Orthopedic Surgery in [place], [place] [address] [facility] [address] [place] [address] [phone] Social History Tobacco Use Types Packs/Day Years [...] or more drinks on one occasion? Ne aiarm 11/17/2019 Social Isolation Answer Date Recorded In a typical week, how many times do you More than three von es a week 11/09/2020 talk on the phone with family, friends, or neighbors? How often do you get together with friends Twice a week 11/09/2020 or relatives? How often do you attend amish or More than 4 times per year 11/09/2020 orthodoxy services? Do you belong to any clubs or No 11/09/2020 organizations such as amish groups, unions, fraternal or athletic groups, or [...] Encounter - Jessica Claudio L.P.N. - 12/12/2019 8:17 AM CDT Called and spoke with patient, per Dr. Marshall, rx was changed to [place] 1-2 tabs every 4-6 hours. Patient is agreeable with this, she was told to only take 2 tabs every 4 hours if needed for breakthrough pain, otherwise try to take 1 every 6 hours if able Telephone Encounter - Angela Garcia - 12/12/2019 7:38 AM CDT Pt called and is having trouble with pain medication. It is making her sick and not taking the edge off. Please call pt to discuss at [phone]. 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
--- OUTSIDE RECORDS SUMMARY | 2022-03-16 15:04 | XMS_ITS | Encounter Summary ---
:1980 Author Organization [facility] Address [address] [place] [address] Care Team Providers Name Role Phone Elsewhere, Pcp Primary Care Provider Unavailable Reason for Visit Appointment Request (Routine) - Closed Specialty Diagnoses / Procedures Referred By Contact Refer red To Contact General Surgery Referral ID Status Reason Start Date Expiration Date Visits Requ ested Visits Authorized [id number] Closed 12/05/2019 12/04/2020 1 1 Encounter Details Date Type Department Care Team Description 12/10/2019 Telemedicine Department of General Marshall, Marian Claire M.D. [address] [place] [phone] Preanesthetic Medical Surgery in [facility] Vernell Ortega, RLashawnNLashawn [address] [place] [address] Exam (Primary Dx) [address] [address] Social History Tobacco Use Types Packs/Day [...] 11/09/2020 organizations such as orthodox groups, unions, fraDatameer or athletic groups, or school groups? How [...] documented as of this encounter Progress Notes Vernell Ortega, RJennifer. - 12/10/2019 9:15 AM CDT This patient was called for a KIRT nurse visit on 12/10/2019 for surgery scheduled on 12/11/19 with . Surgery Nurse Records Supervisor Skin Alert Assessment: Complete this section only if the patient is greater than or equal to 18 y/o BMI <19 or >40: No 37 Documented risk factors that indicate higher risk for pressure ulcer? No Do you have impaired sensation? No Is patient chair-bound or unable to reposition themselves? No Anesthesia Risk Assessment: Do you have an implanted cardiac device? No Do you have difficulties lying flat? No Comment: Do you have any protestant or other objection to having a blood transfusion? No Teaching: Preoperative education was done with (x) patient () parent . It was confirmed the patient/family member had received the following preoperative education sheets:Checklist For Surgical Patients ([id number]),???Surgical Site Infections: Reducing Your Risk ([id number]), Speak Up: Antibiotics ([id number]), Acute Pain and the Healing Process ([id number]) with the Integrative Medicine and Health ([id number]), and ???Appointments Required Before Your Surgery?? (no MC). These were reviewed in detail. (x) Preoperative medication education provided through Ask [place] Expert (x) Preoperative COVID-19 testing ordered and discussed with patient- completed 12/07 Patient is ready to learn, no apparent learning barriers were identified. Reviewed diagnosis and treatment plan; patient verbalized understanding through teach back. All questions were answered. Patient has contact information and understands the need to call with any questions or concerns. 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
--- OUTSIDE RECORDS SUMMARY | 2022-03-16 15:04 | XMS_ITS | Encounter Summary ---
:1980 Author Organization [facility] Address [address] [place] [address] Care Team Providers Name Role Phone Elsewhere, Pcp Primary Care Provider Unavailable Reason for Visit Reason Comments Surgical Listing Orthopedics Encounter Details Date Type Department Care Team Description 12/05/2019 Clinical Communication Department of Alexsander Marshall urgical Listing Orthopedic Surgery Tushar Claire (Orthopedics) in [address] [address] [place], [place] [phone] (Work) [phone] Social History Tobacco Use Types Packs/Day Years [...] to pay for the very basics like [employer] hat hard 11/09/2020 food, housing, medical care, [...] this encounter Miscellaneous Notes Telephone Encounter - Kelly Epstein - 12/06/2019 12:30 PM CDT COVID Screening Questions Does the patient, anyone in the household, or anyone that they have had prolonged exposure with for the past 5 days have any of the followin. Fever greater than or equal to 37.7 C (100.0 F) in the last 24 hours? No 2. Symptoms: Cough: No Shortness of breath: No Sore throat: No Diarrhea: No Respiratory distress: No Headache: No Chills: No Myalgias: No Loss of smell: No Change or loss of taste sensation: No 3. Does the patient or visitor have close contact with a person under quarantine or isolation, or keshav LABORATORY CONFIRMED case of COVID-19? Close contact defined as being within 6 feet of a COVID-19 patient for more than 5 mintues or having direct contact with infectious secretions of a COVID-19 case? (ie being coughed on) No 4. Has the patient been tested for COVID-19 with a positive or pending result due to symptoms ? No If yes to any of these questions, patient is considered interview positive and should be referred tothe COVID Nurse Line (Phone number ) and this information communicated to clinical team responsible for the operation. Sent to COVID Nurse Triage No Patient was instructed to call department if they develop any of the above symptoms prior to the procedure or surgery date. Yes Patient advised that it is best to stay home once screened until the procedure is completed if possible. Yes Patient verbalized back understanding of the serology and PCR swab plans and when to complete and atwhich site. Yes Telephone Encounter - Sandhya Gibson R.N. - 12/05/2019 1:27 PM CDT HEATHER Nursing Review Patient Risk Factor Score: 1 Surgical Risk Category: 2 Per Preoperative Medical Assessment and Evaluation Types; the patient meets: () Fast Track (x) E-Chart Review () PCP No testing needed Telephone Encounter - Jessica Claudio L.P.N. - 12/05/2019 9:55 AM CDT Scheduled Right ankle peroneus brevis tendon repair, possible brostrom repair on 12/11/19 to be performed by Dr. marshall. Do you have heart problems such as: - Angina No - Coronary Artery Disease No - History of a heart attack or myocardial infarction No - Peripheral vascular disease or peripheral artery disease (poor circulation in legs) No - Had heart surgery such as bypass or heart valve surgery within the last year No - Had coronary stents within the last year No - Pacemaker or defibrillator No - Any new chest pain or symptoms in the past 3 months No Do you have any chest pain or shortness of breath completing the following activities: -Washing and dressing yourself? No -Walking 500ft (length of a city block)? No -Walking up a flight of stairs? No Do you have any bleeding problems or are you taking any blood thinners (other than Aspirin) such as Coumadin (Warfarin), Eliquis (Apixiban), Pradaxa (Dabigatran etexilate), Xarelto (Rivaroxaban), Plavix (clopidogrel), Ticagelor (Brillinta), Effient (Prasugrel)? No Do you have Diabetes? No -Do you use insulin? No -Do you take oral medication? No -Diet controlled No Do you have any breathing problems such as COPD, Asthma, Sleep Apnea, history of lung surgery(pneumonectomy/lobectomy)? Yes Asthma - No Have you had a stroke, TIA, Seizure? No -No Do you have kidney or liver problems such as chronic kidney disease (stage 4), cirrhosis, hepatitis?No -not receiving dialysis Is your BMI Greater than 40? No Greater than 50? No Are you older than 80? No Age as of today:39 y.o. Do you take more than 5 prescription medications (excluding supplements and over the counter medications)? No Do you have chronic pain that requires daily prescription pain medications other than NSAIDS? If yes, what is being taken? 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
--- OUTSIDE RECORDS SUMMARY | 2022-03-16 15:04 | XMS_ITS | Encounter Summary ---
:1980 Author Organization [facility] Address [address] [place] [address] Care Team Providers Name Role Phone Elsewhere, Pcp Primary Care Provider Unavailable Reason for Visit Reason Comments Post-op Seen in ED and provider want ed her seen today. Appointment Request (Routine) - Closed Specialty Diagnoses / Procedures Referred By Contact Refer red To Contact Orthopedic Surgery Referral ID Status Reason Start Date Expiration Date Visits Requ ested Visits Authorized [id number] Closed 12/20/2019 12/19/2020 1 1 Encounter Details Date Type Department Care Team Description 12/20/2019 Office Visit Department of Barbara Raya, Follow Up E xamination Orthopedic Surgery in FLIGHT OPERATIONS MANAGER, C.N.P., Posto perative Visit Geronimo [place] D.N.P. (Primary Dx) [address] [place] [id number] Social History Tobacco Use Types Packs/Day Years [...] 11/09/2020 organizations such as confucianism groups, unions, fraUser Replay or athletic groups, or school groups? How [...] documented as of this encounter Progress Notes Barbara Raya, LO, C.N.P., D.N.P. - 12/20/2019 9:30 AM CDT Dulce is a 39-year-old who is status post peroneus brevis tendon repair and brostrom repair of her right ankle on 12/11/2019. She was in the ER last night as she was concerned regarding the color aroundthe incision and tingling in her toes. Physical exam- right ankle with moderate swelling noted as well as extending into her toes. She is able to move all of her toes and has sensation both dorsally and volar on her foot. She does have tingling sensation of all of her toes. She has normal dorsal pedal and posterior tibial pulse. She does have some bruising that is noted around her incision. Her incision is intact without drainage and no signs or symptoms of infection. Impression and plan- Dulce is a pleasant 39-year-old who had right ankle surgery as noted above. She does have some bruising noted around the incision but no signs of infection. I reassured her the swelling is most likely causing her tingling of her toes. Will have her continue with elevation and mild c ompression. I did not remove her nylon sutures she plans to see me next Monday and will consider at that time. We did review incisional care as well as signs symptoms of infection. She is having some significant anxiety which I deferred to her primary care. She also reports tobacco use and we did discuss tobacco cessation methods. At this time we will set her up with a primary care provider to consider medication for her anxiety and tobacco cessation. Patient agrees with this plan and she will report any new signs or symptoms of concern. 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
--- OUTSIDE RECORDS SUMMARY | 2022-03-16 15:04 | XMS_ITS | Encounter Summary ---
:1980 Author Organization [facility] Address [address] [place] [address] Care Team Providers Name Role Phone Elsewhere, Pcp Primary Care Provider Unavailable Reason for Referral Outpatient (Routine) - Closed Specialty Diagnoses / Procedures Referred By Contact Refer red To Contact Orthopedic Surgery Barbara Raya APRN, [facility] C.N.P., D.N.P. [address] [place] [address] Referral ID Status Reason Start Date Expiration Date Visits Requ ested Visits Authorized [id number] Closed 12/27/2019 12/26/2020 1 1 hysical Therapy (Routine) - Closed Specialty Diagnoses / Procedures Referred By Contact Refer red To Contact Diagnoses Pain Ankle Right Barbara Raya APRN, [facility] Procedures PT Evaluate and treat C.N.P., D.N.P. [address] [place] [address] Referral ID Status Reason Start Date Expiration Date Visits Requ ested Visits Authorized [id number] Closed 12/27/2019 12/26/2020 1 1 Reason for Visit Reason Comments Post-op Outpatient (Routine) - Closed Specialty Diagnoses / Procedures Referred By Contact Refer red To Contact Orthopedic Surgery Alexsander Marshall M .D. [address] [place] [address] Referral ID Status Reason Start Date Expiration Date Visits Requ ested Visits Authorized [id number] Closed 12/05/2019 12/04/2020 1 1 Encounter Details Date Type Department Care Team Description 12/27/2019 Office Visit Department of Barbara Raya, Pain Ankle Right (Primary Dx); Orthopedic Surgery in [place] BLANCHARD, Caryl phelps Up Examination Postoperative Visit Geronimo Purvis D.N.P. [address] [place] [phone] Social History Tobacco Use Types Packs/Day Years [...] How often do you attend nondenominational or More than 4 times per year 11/09/2020 taoism services? Do you belong to any clubs or No 11/09/2020 organizations such as nondenominational groups, unions, fraternal [...] as of this encounter Progress Notes Barbara Raya APRN, C.N.P., D.N.P. - 12/27/2019 8:30 AM CDT Dulce is a 39-year-old who is status post peroneus brevis tendon repair and brostrom repair of her right ankle on 12/11/2019. She has remained nonweightbearing. She denies any signs or symptoms of infection. Most recently was seen by her primary care provider and started on an anxiety medication. Physical exam-right ankle with mild swelling noted. She has adequate sensation and motion in her toes. Surgical incision is well approximated there is no drainage noted. Nylon sutures were removed and Steri-Strips applied. Impression and plan- Dulce is a 39-year-old who had right ankle surgery as noted above. Will have herremain nonweightbearing until she is 6 weeks postoperative. Will have her see physical therapy to help guide increased motion and beginning of weight-bearing at that time. I discussed with her some gentle motion that she may do with her toes as well as her ankle as she will continue to be nonweightbearing. Will plan to see her back in 4 weeks in her questions were answered. We did review incisional care. documented in this encounter Plan of Treatment Scheduled Referrals Name Type Priority Associated Order Schedule Diagnoses Orthopedic Surgery Outpatient Referral Routine Ex pected: office visit 01/26/2020 (clinic) (Approximate), Expires: 12/26/2022 documented as of this encounter Visit Diagnoses Diagnosis Pain Ankle Right - Primary Follow Up Examination Postoperative Visi t documented in this encounter Additional Health Concerns Assessment Noted Time PHQ-9 Depression Total Score: 13 12/25/2019 10:30 AM C DT documented as of this encounter Care Teams Medical Technical Writer Relationship Specialty Start Date End Date Elsewhere, Pcp PCP - General Internal Medicine 06/25/19 03/18/20 documented as of this encounter
--- OUTSIDE RECORDS SUMMARY | 2022-03-16 15:05 | XMS_ITS | Encounter Summary ---
:1980 Author Organization [facility] Address [address] [place] [address] Care Team Providers Name Role Phone Unavailable Primary Care Provider Unavailable Reason for Referral Outpatient (Routine) - Closed Specialty Diagnoses / Procedures Referred By Contact Refer red To Contact Otorhinolaryngology Diagnoses Dysphonia Alyssa Sy P.A.-C. [facility] [address] [facility] [place] [address] Referral ID Status Reason Start Date Expiration Date Visits Requ ested Visits Authorized [id number] Closed 08/29/2017 02/25/2018 1 1 Encounter Details Date Type Department Care Team Description 08/29/2017 Orders Only Department of Alyssa Sy Dysphonia ([facility] Otorhinolaryngology in [place], [place] [address] [place] [address] [place], [place] [phone] Social History Tobacco Use Types Packs/Day Years Used Date Smoking Tobacco: Every Day Cigarettes 1 S tarted: 2008 Smokeless Tobacco: Never Alcohol Habits Answer Date Recorded How often [...] slept in a long term (including now)? 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
--- OUTSIDE RECORDS SUMMARY | 2022-03-16 15:05 | XMS_ITS | Encounter Summary ---
:1980 Author Organization [facility] Address [address] [place] [address] Care Team Providers Name Role Phone Elsewhere, Pcp Primary Care Provider Unavailable Reason for Referral MRI/CAT/PET Scan (Routine) - Closed Specialty Diagnoses / Procedures Referred By Contact Refer red To Contact Radiology Diagnoses Pain Ankle Right Alexsander Marshall M.D. [facility] [place] [facility] Procedures MR Ankle Right without IV Contrast DC MRI LWR EXT JOINT WO CNTRST [address] [place] [phone] Referral ID Status Reason Start Date Expiration Date Visits Requ ested Visits Authorized [id number] Closed 11/21/2019 11/20/2020 1 1 Reason for Visit MRI/CAT/PET Scan (Routine) - Closed Specialty Diagnoses / Procedures Referred By Contact Refer red To Contact Radiology Diagnoses Pain Ankle Right Alexsander Marshall M.D. [facility] [place] [facility] Procedures MR Ankle Right without IV Contrast DC MRI LWR EXT JOINT WO CNTRST [address] [place] [phone] Referral ID Status Reason Start Date Expiration Date Visits Requ ested Visits Authorized [id number] Closed 11/21/2019 11/20/2020 1 1 Encounter Details Date Type Department Care Team Description 11/27/2019 Hospital Encounter Department of Marshall, Alexsander Pain Ankle Right Radiology in [place] [address] [facility] [address] [facility] [place] [phone] [phone] Social History Tobacco Use Types Packs/Day Years [...] (ZyrTEC) 10 0 05/16/2019 mg tablet cholecalciferol, vitamin Take 1,000 Units by 0 07/20/2021 D3, (cholecalciferol) mouth daily. 1,000 Unit tablet methylcellulose, Take 2 tablets by 0 0 12/25/2019 laxative, (CITRUCEL) 500 mouth 2 (two) times a mg tablet day. PARoxetine (PAXIL) 10 mg Take 10 mg by mouth 0 02/04/2020 tablet daily. topiramate (TOPAMAX) 50 Take 50 mg by mouth 0 02/04/2020 mg tablet daily. UNABLE TO FIND Med Name: Thrive, 0 vitamins, shakes, and patches documented as of this encounter Plan of Treatment Not on filedocumented as of this encounter Procedures Procedure Name Priority Date/Time Associated Comments Diagnosis MR ANKLE RIGHT RAD - Routine 11/27/2019 7:35 Pain Ankle Right Resul ts for this WITHOUT IV (most inpatients AM CDT procedure a re in CONTRAST and all the results outpatients) section. documented in this encounter Results MR Ankle Right without IV Contrast (11/27/2019 7:35 AM CDT) Anatomical Region Laterality Modality Lower Extremity, Ankle, Musculoskeletal RST LOS, Right Magnetic Resonance Musculoskeletal ARZ LOS, Muskuloskeletal FLA LOS Specimen (Source) Anatomical Collection Method Collection Time Re ceived Time Location / / Volume Laterality 11/27/2019 9:05 AM CDT Impressions 11/27/2019 9:14 AM CDT 1. Peroneal brevis split tear. Peroneal brevis and peroneal longus tenosynovitis. 2. Low-grade anterior talofibular ligame nt sprain. 3. Mild tibialis posterior tenosynovitis . Narrative 11/27/2019 9:14 AM CDT EXAM: MR ANKLE RIGHT WITHOUT IV CONTRAST COMPARISON: 08/16/2019 radiographs FINDINGS: The Achilles tendon is intact. Peroneal brevis split tear. Peroneal longus and peroneal brevis tenosynovitis. Tibialis anterior, extensor hallucis longus and extensor digitorum longus are intact. Mi ld tibialis posterior tenosynovitis. Medial compartmental tendons are intact. The anterior posterior tibiofibular liga ments are intact. Slight increased signal adjacent to the anterior talofibu lar ligament, which is intact. Posterior talofibular and calcaneofibular ligament s are intact. The deltoid ligaments are intact. No ankle joint osteochondral defect. Sma ll amount of fluid in the posterior subtalar recess. Lateral process of the talus and anterior process of the calcaneus are intact. Plantar fascia is intact. The foot intrinsic musculature demonstra noemi no atrophy or evidence for denervation. Procedure Note Jose Diaz M.D. - 11/27/2019Formatt ing of this note might be different from the original. EXAM: MR ANKLE RIGHT WITHOUT IV CONTRAST COMPARISON: 08/16/2019 radiographs FINDINGS: The Achilles tendon is intact. Peroneal brevis split tear. Peroneal longus and peroneal brevis tenosynovitis. Tibialis anterior, extensor hallucis longus and extensor digitorum longus are intact. Mi ld tibialis posterior tenosynovitis. Medial compartmental tendons are intact. The anterior posterior tibiofibular liga ments are intact. Slight increased signal adjacent to the anterior talofibu lar ligament, which is intact. Posterior talofibular and calcaneofibular ligament s are intact. The deltoid ligaments are intact. No ankle joint osteochondral defect. Sma ll amount of fluid in the posterior subtalar recess. Lateral process of the talus and anterior process of the calcaneus are intact. Plantar fascia is intact. The foot intrinsic musculature demonstra noemi no atrophy or evidence for denervation. IMPRESSION: 1. Peroneal brevis split tear. Peroneal brevis and peroneal longus tenosynovitis. 2. Low-grade anterior talofibular ligame nt sprain. 3. Mild tibialis posterior tenosynovitis . 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
--- OUTSIDE RECORDS SUMMARY | 2022-03-16 15:05 | XMS_ITS | Encounter Summary ---
:1980 Author Organization [facility] Address [address] [place] [address] Care Team Providers Name Role Phone Elsewhere, Pcp Primary Care Provider Unavailable Reason for Visit Reason Onset Date Comments Outpatient COVID-19 Testing 10/29/2019 Encounter Details Date Type Department Care Team Description 10/29/2019 External Outreach Department of [facility] Lupe Catalan Infection Upper Medicine, [place] T, P.A.-C. Respiratory (Primary Clinic, in [place], [address] Dx) [place], [place] [address] [facility] [address] [place], [place] [phone] [address] (Work) [phone] Social History Tobacco Use Types Packs/Day Years [...] or slept in a fpc (including now)? Sex Assigned at Date Recorded Not on file documented as of this encounter Progress Notes Alexandra Villa, L.P.N. - 10/29/2019 9:54 AM CDT Encounter created for the drive-through COVID-19 testing. documented in this encounter Plan of Treatment Not on filedocumented as of this encounter Procedures Procedure Name Priority Date/Time Associated Diagnosis Comme nts SARS CORONAVIRUS-2 Routine 10/29/2019 10:14 AM Infection Upper Results for this RNA, V CDT Respiratory procedure are i n the results section. documented in this encounter Results SARS Coronavirus-2 RNA, V Symptomatic (10/29/2019 10:14 AM CDT) [facility] Method Time Signature SARS-CoV-2 Swab, 10/29/2019 ECLR Specimen Nasopharynx 10:30 PM Source CDT SARS CoV-2 Undetected Undetected 10/29/2019 ECLR RNA, TMA 10:30 PM CDT Comment: SARS-CoV-2 RNA absent. This result does not rule out COVID-19 in the patient, as the sensitivity of the test depends o n the timing of the specimen collection and the quality of the specim en. Result should be correlated with patient's history and clinical presentat ion. ----ADDITIONAL INFORMATION---- This test is performed using the Aptima SARS-CoV-2 assay ([employer] which has received Emergency Use Authori zation (EUA) by the U.S. Food and Drug Administration. Fact sheets for this Emergency Use Autho rization (EUA) assay can be found at the following links: For Healthcare Providers: https://www.fd a.gov/media/559242/download For Patients: https://www.fda.gov/media/ 467557/download Specimen Anatomical Collection Method Collection Time Receive d Time (Source) Location / / Volume Laterality Varies 10/29/2019 10:14 10/29/2019 3:10 (Nasopharynx) AM CDT PM CDT Harshad Catalan P.A.-C. LAB MICROBIOLOGY - GENERAL O RDERABLES Performing Organization Address City/State/ZIP Code Phon e Number [facility] [address] [place] [phone] [facility] [place] [address] System in [address] documented in this encounter Visit Diagnoses Diagnosis Infection Upper Respiratory - Primary documented in this encounter Additional Health Concerns Infection Onset Date Last Indicated Resolved Time COVID19 Pending 10/29/2019 10/29/2019 10/29/2019 10:31 PM CDT Assessment Noted Time PHQ-9 Depression Total Score: 1 06/13/2014 1:45 PM TONGSMAN documented as of this encounter Care Teams Fisher Oyster Relationship Specialty Start Date End Date Elsewhere, Pcp PCP - General Internal Medicine 06/25/19 03/18/20 documented as of this encounter
--- OUTSIDE RECORDS SUMMARY | 2022-03-16 15:05 | XMS_ITS | Encounter Summary ---
:1980 Author Organization [facility] Address [address] [place] [address] Care Team Providers Name Role Phone Unavailable Primary Care Provider Unavailable Reason for Visit Reason Comments Migraine Encounter Details Date Type Department Care Team Description 06/24/2019 Emergency [place] Emergency Jose Melissa, Headache (Primary Dx) Department P.A.-C. [address] [address] [place], [place] [phone] (Wo rk) Social History Tobacco Use [...] to pay for the very basics like [employer] hat hard 11/09/2020 food, housing, medical care, [...] or slept in a custodial (including now)? Sex Assigned at Date Recorded Not on file documented as of this encounter Last Filed Vital Signs Vital Sign Reading Time Taken Comments Blood Pressure 115/89 06/24/2019 5:47 AM CDT Pulse 70 06/24/2019 5:48 AM CDT Temperature 36 ??C (96.8 ??F) 06/24/2019 5:30 AM CDT Respiratory Rate 18 06/24/2019 5:30 AM CDT Oxygen Saturation 96% 06/24/2019 5:48 AM CDT Inhaled Oxygen Concentration - - Weight 91.5 kg (201 lb 11.5 oz) 06/24/2019 5:17 AM CDT Height - - Body Mass Index 38.11 03/10/2017 5:08 PM [employer] documented in this encounter Discharge Instructions AttachmentsThe following attachments cannot be sent through Care Everywhere. Migraine Headache (Spanish)documented in this encounter Medications at Time of Discharge Medication Sig Dispensed Refills Start Date End Date ACETAMINOPHEN ORAL Take 500 mg by mouth 0 014 06/29/2019 every 6 (six) hours as needed. azelastine (ASTELIN) 137 Administer 2 sprays 30 mL 11 06/29/2019 mcg/spray (0.1 %) nasal into each nostril 2 spray (two) times a day. Use in each nostril as directed budesonide (PULMICORT) Mix 1 ampule in 240 mL 6 08/08/19 18 06/29/2019 0.5 mg/2 mL nebulizer sinus irrigation solution bottle and irrigate twice daily. cetirizine (ZyrTEC) 10 mg 0 05/16/2019 03/18/2020 tablet cholecalciferol, vitamin Take 1,000 Units by 0 07/20/2021 D3, (cholecalciferol) mouth daily. 1,000 Unit tablet diphenhydrAMINE (BENYLIN) at bedtime as needed 0 10/29/2019 12.5 mg/5 mL syrup for itching. Pt doesn't know dose, takes PRN stated one cap full fluticasone (FLONASE) 50 Administer 2 sprays 1 Bottle 11 06/29/2019 mcg/actuation nasal spray into each nostril daily. ibuprofen Take 4 tablets by 0 04/22/2014 020 (for_ADVIL,MOTRIN) 200 mg mouth as needed. tablet ipratropium (ATROVENT) Administer 2 sprays 30 mL 5 08/1506/29/2019 0.03 % nasal spray into each nostril 2 (two) times a day. ketorolac (for_TORADOL) Take 1 tablet by 0 201506/29/2019 10 mg tablet mouth 4 (four) times a day. magnesium citrate 0 08/24/2017 020 (CITROMA) solution ondansetron ODT Take 1 tablet (4 mg 10 tablet 0 01/20/2019 06/29/2019 (ZOFRAN-ODT) 4 mg total) by mouth disintegrating tablet every 8 (eight) hours as needed for nausea or vomiting for up to 10 doses. PARoxetine (PAXIL) 10 mg Take 10 mg by mouth 0 02/04/2020 tablet daily. topiramate (TOPAMAX) 50 Take 50 mg by mouth 0 02/04/2020 mg tablet daily. Vitamin D2 1,250 mcg 0 03/27/201910/15 (50,000 unit) capsule documented as of this encounter ED Notes Jose Melissa P.A.-C. - 06/24/2019 5:59 AM CDT SUBJECTIVE CHIEF COMPLAINT/REASON FOR VISIT Migraine HISTORY OF PRESENT ILLNESS 39-year-old female presents ER with complaints of migraine headache. Patient states she has long history of migraine-type headaches and states that this episode feels similar to previous episodes. She denies new or change in symptoms. She requests Toradol injection which is prevent helpful for her in the past. REVIEW OF SYSTEMS Constitutional: Negative for appetite [...] Heart Rate Resp Rate Blood Pressure SpO2 06/24/19 0530 06/24/19 0520 -- 06/24/19 0530 06/24/19 0530 06/24/19 0520 36 ??C 79 18 109/87 98 % Pain Score 06/24/19 0530 10 - Worst possible pain PHYSICAL EXAMINATION Constitutional: Nursing note and [...] Impression and Plan Patient appears well. She experienced relief after injection of Toradol, Benadryl, and Phenergan IM in the emergency department. She will follow up with her PCP. Return ER warnings given. Patient discharged good condition. I reviewed previous medical records including documentation from previous visits. Final Diagnoses: as of Jun 23 656 Headache Jose Melissa, PJanette 06/24/19 0657 documented in this encounter Plan of Treatment Not on filedocumented as of this encounter Visit Diagnoses Diagnosis Headache Unspecified - Primary documented in this encounter Administered Medications Inactive Administered Medications - up to 3 most recent administrations Medication Order MAR Action Action Date Dose Rate Site diphenhydrAMINE injection Given 06/24/2019 5:53 AM 50 mg Left Dorsogluteal 50 mg (BENADRYL) CDT 50 mg, intramuscular, Once, On Mon06/24/19 at 0537, For 1 dose ketorolac injection 30 mg (TORADOL) Given 06/24/2019 5:53 AM CDT 30 mg Left Deltoid 30 mg, intramuscular, Once, On Mon06/24/19 at 0537, For 1 dose, Adult IV push rate: Over 15 seconds. Peds IV push rate: Over 1 minute. 60 mg dose only for IM, not recommended for IV. promethazine injection 12.5 Given 06/24/2019 5:53 AM 12.5 mg Right Dorsogluteal mg (PHENERGAN) CDT 12.5 mg, intramuscular, Once, On Mon06/24/19 at 0537, For 1 dose documented in this encounter Active and Recently Administered Medications Due to Daylight Saving Time, this section may contain times in both [employer] and CDT. Scheduled Medication Order 06/22/2019 06/23/2019 06/24/2019 diphenhydrAMINE injection 50 mg (BENADRYL) (COMPLETED) 552 (Given - Provider: Angela Cruz R.N. - Comment: pt request) 50 mg, intramuscular, Once, Mon06/24/19 at 0537, For 1 dose ketorolac injection 30 mg (TORADOL) (COMPLETED) 552 (Given - Provider: Angela Crzu R.N. - Comment: pt request) 30 mg, intramuscular, Once, Mon06/24/19 a t 0537, For 1 dose, Adult IV push rate: Over 15 seconds. Peds IV push rate: Over 1 minute. 60 mg dose only for IM, not recommended for IV. promethazine injection 12.5 mg (PHENERGAN) (COMPLETED) 552 (Given - Provider: Angela Cruz R.N. - Comment: Pt request) 12.5 mg, intramuscular, Once, 06/24/19 at 0537, For 1 dose documented in this encounter Additional Health Concerns Assessment Noted Time PHQ-9 Depression Total Score: 1 06/13/2014 1:45 PM [employer] documented as of this encounter
--- OUTSIDE RECORDS SUMMARY | 2022-03-16 15:05 | XMS_ITS | Encounter Summary ---
:1980 Author Organization [facility] Address [address] [place] [address] Care Team Providers Name Role Phone Elsewhere, Pcp Primary Care Provider Unavailable Reason for Visit Reason Comments COVID Nurse Line Encounter Details Date Type Department Care Team Description 10/29/2019 Nurse Triage Department of Valerie Dodson COVID Nurse Line Medicine, [facility] [place], [place] [address] [place], [place] [phone] Social History Tobacco Use Types Packs/Day Years [...] More than 4 times per year 11/09/2020 adventism services? Do you belong to any [...] to pay for the very basics like [employer] hat hard 11/09/2020 food, housing, medical care, [...] or slept in a correction (including now)? Sex Assigned at Date Recorded Not on file documented as of this encounter Miscellaneous Notes Telephone Encounter - Valerie Bruno R.N. - 10/29/2019 7:50 AM CDT COVID-19 Nurse Line Screening ASSESSMENT PLAN Endpoint recommendation: Screening positive, testing indicated, advised to be swabbed for COVID-19, sent to [facility] located at [address] Testing hours are daily 10 am to 6 pm. When you arrive stay in your car and someone will direct you. Care Points provided: RECOMMENDATIONS TESTING CRITERIA IS MET: Stay home except to get medical care. Avoid public areas and public transportation. Separate yourself from other people and stay in a specific sick room if possible. Wear a cloth face covering, over your nose and mouth if you must be a round other people even at home). Cover your nose and mouth when coughing or sneezing. Contact employer/occupational health department to notify them that they are being tested. Seek emergent care if any of the following occur: 1) Trouble breathing, 2) Bluish lips or face, 3) Persistent pain or pressure in the chest, 4) Newly confused or unable to stay alert and awake. Notify appropriate care provider if any new or worsening symptoms. If your test is negative and new symptoms develop please contact your care provider to determine if re-testing is necessary. 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
--- OUTSIDE RECORDS SUMMARY | 2022-03-16 15:05 | XMS_ITS | Encounter Summary ---
:1980 Author Organization [facility] Address [address] [place] [address] Care Team Providers Name Role Phone Elsewhere, Pcp Primary Care Provider Unavailable Reason for Visit Reason Comments Foot Injury x3 days after twisting it on while running off the sidewalk Encounter Details Date Type Department Care Team Description 08/16/2019 Emergency [place] [facility] Mitchel Frank , Sprain Ankle Initial Department CORONARY CLINICAL SPECIALIST, C.N.PLashawn Right (Primary Dx) [id number] [place] [address] [place], [place] [phone] (Wo rk) Social History Tobacco Use Types [...] or slept in a residential (including now)? 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 - 08/16/2019 7:32 PM CDT Follow-up with PCP if pain continues past 1 week. Please take Tylenol (acetaminophen) and Motrin (ibuprofen) for your pain. These are a safer alternative to narcotics as they do not cause addiction or dependence. You can take acetaminophen 1000 mg every 6 hours (2 tabs of Extra Strength Tylenol every 6 hours) and ibuprofen 600 mg every 6 hours (3 tabs every 6 hours). For pain which is difficult to control you can alternate between these two medications so you are taking a medication every three hours around the clock if needed. AttachmentsThe following attachments cannot be sent through Care Everywhere. Elastic Bandage and RICE Therapy (Czech)Ankle Sprain Phase I Rehab-SportsMed (Czech)Crutch Use Adult Izfc-ud-Jkcb (Czech)documented in this encounter Medications at Time of Discharge Medication Sig Dispensed Refills Start Date End Date cetirizine (ZyrTEC) 10 mg 0 05/16/2019 03/18/2020 tablet cholecalciferol, vitamin Take 1,000 Units by 0 07/20/2021 D3, (cholecalciferol) mouth daily. 1,000 Unit tablet diphenhydrAMINE (BENYLIN) at bedtime as needed 0 10/29/2019 12.5 mg/5 mL syrup for itching. Pt doesn't know dose, takes PRN stated one cap full ipratropium (ATROVENT) Administer 2 sprays 0 06/1510/29/2019 0.03 % nasal spray into affected nostril(s) every 12 (twelve) hours. magnesium citrate 0 08/24/2017 020 (CITROMA) solution PARoxetine (PAXIL) 10 mg Take 10 mg by mouth 0 02/04/2020 tablet daily. topiramate (TOPAMAX) 50 Take 50 mg by mouth 0 02/04/2020 mg tablet daily. Vitamin D2 1,250 mcg 0 03/27/201910/15 (50,000 unit) capsule documented as of this encounter ED Notes Mitchel Frank C.N.P. - 08/16/2019 7:14 PM CDT SUBJECTIVE CHIEF COMPLAINT/REASON FOR VISIT Foot Injury (x3 days after twisting it on while running off the sidewalk) HISTORY OF PRESENT ILLNESS Patient is a pleasant 39-year-old female coming for evaluation of right ankle pain. She states that 3 days ago she ruled while she was playing in the backyard. She has been able to bear weight since then but does have some significant swelling to the lateral aspect of the ankle. She has been taking ibu profen Tylenol and icing the ankle with some moderate relief of her pain. She does have some significant pain when bearing weight but is still able to ambulate at her baseline. She is coming for evaluation concern for possible fractured ankle or broken foot. She has no pain in her foot or up in her knee. Allergies been reviewed. Patient does not appear in any acute distress History provided by: Patient REVIEW OF SYSTEMS Musculoskeletal: Positive for extremity pain. All other systems reviewed and are negative. OBJECTIVE Initial Vitals Temperature Pulse Rate Heart Rate Resp Rate Blood Pressure SpO2 08/16/19183708/16/191837 -- 08/16/19183708/16/19183708/16/191837 36.4 ??C 86 20 127/84 96 % Pain Score 08/16/191838 6 PHYSICAL EXAMINATION Constitutional: Nursing note and [...] and reactive to light. Periorbital area normal appearing.Extraocular Movements: EOM normal. Neck: Normal range of motion and full passive range of motion without pain. Neck supple. Cardiovascular: Normal rate and normal peripheral perfusion. PMI is not displaced. Pulses are palpable. Pulses are no weak pulses. Capillary refill: takes less than 3 seconds, Pulmonary/Chest: Effort normal. There is normal air entry. No apnea and no tachypnea. No respiratorydistress. Abdominal: Normal appearance and non-distended. Musculoskeletal: No deformity or edema. Right ankle: She exhibits swelling and ecchymosis. She exhibits normal range of motion, no deformity, no laceration and normal pulse. Tenderness. Lateral malleolus tenderness found. No medial malleolus, no AITFL, no CF ligament, no posterior TFL, no head of 5th metatarsal and no proximal fibula tenderness found. Neurological: She is alert, oriented to person, place, and time and [...] has a normal mood and affect. Her speech pattern is normal. Judgment and thought content normal. She is relaxed.Cognition and memory are normal. ASSESSMENT/PLAN Impression and Plan Patient pleasant 39-year-old female coming for evaluation of right ankle pain and swelling. An x-raywas completed showing no evidence of fracture. She will be placed in a Cam walker boot and given some crutches advised to try to remain nonweightbearing to the ankle for least 24 hours and to wear the Cam walker boot whenever she is ambulating. Advised to continue taking ibuprofen Tylenol [id number] and gave her instructions on rice technique. She was also advised to follow up with primary care provider 1 week the pain is persisting. She verbalized understanding this. The patient was dischargedstable condition. Final Diagnoses: as of Aug 15 1938 Sprain Ankle Initial Right Mitchel Frank C.N.P. 08/16/191951 Angelina Sparks R.N. - 08/16/2019 6:39 PM CDT Patient states she was playing in the backyard when she was running and twisted her right ankle while coming off of the sidewalk. This happened 3 days ago. Patient states she has been using OTC medications and ice to help with pain. Angelina Sparks R.N. 08/16/191839 documented in this encounter Plan of Treatment Not on filedocumented as of this encounter Procedures Procedure Name Priority Date/Time Associated Comments Diagnosis DX ANKLE RIGHT 3+ RAD - Semiurgent 08/16/2019 7:25 Res ults for this VIEWS (Fast; most ED PM CDT procedure are in patients; some the results inpatients) section. documented in this encounter Results DX Ankle Right 3+ Views (08/16/2019 7:25 PM CDT) Anatomical Region Laterality Modality Lower Extremity, Ankle, Musculoskeletal RST LOS, Right Digital Radiography Musculoskeletal ARZ LOS, Muskuloskeletal FLA LOS Specimen (Source) Anatomical Collection Method Collection Time Re ceived Time Location / / Volume Laterality 08/17/2019 5:30 AM CDT Impressions 08/17/2019 5:31 AM CDT Negative right ankle. Narrative 08/17/2019 5:31 AM CDT EXAM: DX ANKLE RIGHT 3+ VIEWS Procedure Note Jose Angel Diaz M.D. - 08/17/2019For matting of this note might be different from the original. EXAM: DX ANKLE RIGHT 3+ VIEWS IMPRESSION: Negative right ankle. Mitchel Frank APRN, C.N.P. 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
--- OUTSIDE RECORDS SUMMARY | 2022-03-16 15:05 | XMS_ITS | Encounter Summary ---
:1980 Author Organization [facility] Address [address] [place] [address] Care Team Providers Name Role Phone Unavailable Primary Care Provider Unavailable Reason for Visit Reason Comments Headache C/o intermittent headache th at started 11/24/17. Hx migraines. Encounter Details Date Type Department Care Team Description 11/26/2017 Emergency [place] [facility] Jose Melissa, Headache (Primary Dx) Department [place]. [id number] [address] [place], [place] [phone] (Wo rk) Social History Tobacco Use [...] or slept in a penitentiary (including now)? 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 Migraine Headache ([place])documented in this encounter Medications at Time of Discharge Medication Sig Dispensed Refills Start Date End Date cetirizine (ZyrTEC) 10 Take 1 tablet (10 mg 30 tablet 3 11/201708/22/2018 mg tablet total) by mouth daily as needed for allergies. sodium chloride-sodium Administer 1 100 each 11 08/08/2017 08/08/2018 bicarbonate (NETI POT) application into each nasal rinse nostril as needed for congestion. ACETAMINOPHEN ORAL Take 500 mg by mouth 0 014 06/29/2019 every 6 (six) hours as needed. azelastine (ASTELIN) 137 Administer 2 sprays 30 mL 11 06/29/2019 mcg/spray (0.1 %) nasal into each nostril 2 spray (two) times a day. Use in each nostril as directed budesonide (PULMICORT) Mix 1 ampule in sinus 240 mL 6 06/29/2019 0.5 mg/2 mL nebulizer irrigation bottle and solution irrigate twice daily. fluticasone (FLONASE) 50 Administer 2 sprays 1 Bottle 11 06/29/2019 mcg/actuation nasal into each nostril spray daily. ibuprofen Take 4 tablets by 0 04/22/2014 020 (for_ADVIL,MOTRIN) 200 mouth as needed. mg tablet ipratropium (ATROVENT) Administer 2 sprays 30 mL 5 08/1506/29/2019 0.03 % nasal spray into each nostril 2 (two) times a day. ketorolac (for_TORADOL) Take 1 tablet by 0 201506/29/2019 10 mg tablet mouth 4 (four) times a day. magnesium citrate 0 08/24/2017 020 (CITROMA) solution topiramate (TOPAMAX) 50 Take 50 mg by mouth 0 02/04/2020 mg tablet daily. documented as of this encounter ED Notes Jose Melissa P.A.-C. - 11/26/2017 9:29 PM CDT SUBJECTIVE CHIEF COMPLAINT/REASON FOR VISIT Headache (C/o intermittent headache that started 11/24/17. Hx migraines.) HISTORY OF PRESENT ILLNESS 37-year-old female presents to the ER with complaints of headache over the last several days. Patient states she has history of migraine headaches since typical of her normal migraine headache. She hasp.o. Toradol home which she is tried without much success. She denies new or changing symptoms compared to previous episodes. Nothing else seems to make the symptoms better [...] reviewed and are negative. OBJECTIVE Initial Vitals [11/26/172058] Temperature Pulse Rate Heart Rate Resp Rate Blood Pressure SpO2 36.6 ??C 90 -- 18 (!) 136/103 98 % Pain Score 10 - Worst possible pain PHYSICAL EXAMINATION Constitutional: She appears well-developed and well-nourished. HENT: Head: Normocephalic and atraumatic. Nose: Nose normal. Mouth/Throat: Oropharynx is clear and moist. Mucous membranes are moist. Neck: Neck supple. Cardiovascular: Normal rate, regular rhythm, S1 normal, S2 normal and normal heart sounds. Pulmonary/Chest: Effort normal and breath sounds normal. Abdominal: Soft. Bowel sounds are normal. There is no tenderness. Neurological: She is alert and oriented to person, place, and time. She has normal sensation, normalstrength and intact cranial nerves. She displays normal reflexes. Normal speech. She has unimpaired heel to kumar and unimpaired finger to nose. She displays a normal Romberg Test. Gait normal. GCS eye subscore is 4. GCS verbal subscore is 5. GCS motor subscore is 6. Skin: Skin is warm. Nursing note and vitals reviewed. ASSESSMENT/PLAN Impression and Plan Differential diagnosis: Headache, cephalgia, intracranial pathology. After treatment emergency department patient states feeling improved. She would like to be discharged to home. Patient is established with the with neurologist and will follow up with the same. Return ER warnings given. Patient is discharged in good condition.. Reviewed and summarized previous medical records including: Documentation from previous visits. Final Diagnoses: as of Nov 28 631 Headache Jose Melissa, PLashawnA.-Edward. 11/27/17631 Samson Riddle RLashawnN. - 11/26/2017 9:00 PM CDT C/o intermittent headache that started 11/24/17. Hx migraines. Nauseated, vomited once, and sensitiveto light and sound. Has tried her prn toradol that neurology told her to take for it with no relief Samson Riddle R.N. 11/26/172100 documented in this encounter Plan of Treatment Not on filedocumented as of this encounter Visit Diagnoses Diagnosis Headache Unspecified - Primary documented in this encounter Administered Medications Inactive Administered Medications - up to 3 most recent administrations Medication Order MAR Action Action Date Dose Rate Site diphenhydrAMINE injection Given 11/26/2017 9:20 25 mg Right Ventrogluteal 25 mg (BENADRYL) PM CDT 25 mg, intramuscular, Once, On 11/26/17 at 2108, For 1 dose prochlorperazine injection 5 Given 11/26/2017 9:18 PM CDT 5 mg Left Ventrogluteal mg (COMPAZINE) 5 mg, intramuscular, Once, On 11/26/17 at 2108, For 1 dose SUMAtriptan injection 6 mg Given 11/26/2017 9:21 PM CDT 6 mg Right Upper Arm (IMITREX) (Back) 6 mg, subcutaneous, Once, On 11/26/17 at 2108, For 1 dose, May repeat dose in 1 hour if migraine unresolved. Do not exceed 12 mg in 24 hours. documented in this encounter Active and Recently Administered Medications Times are shown in CDT. Scheduled Medication Order 11/24/2017 11/25/2017 11/26/2017 diphenhydrAMINE injection 25 mg (BENADRYL) (COMPLETED) 2119 (Given - Provider: Samson Riddle R.N.) 25 mg, intramuscular, Once, 11/26/17 at 2108, For 1 dose prochlorperazine injection 5 mg (COMPAZINE) (COMPLETED) 2117 (Given - Provider: Samson Riddle R.N.) 5 mg, intramuscular, Once, 11/26/17 at 2108, For 1 dose SUMAtriptan injection 6 mg (IMITREX) (COMPLETED) 2120 (Given - Provider: Samson Riddle R.N.) 6 mg, subcutaneous, Once, 11/26/17 at 2108, For 1 dose, May repeat dose in 1 hour if migraine unresolved. Do not exceed 12 mg in 24 hours. 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
--- OUTSIDE RECORDS SUMMARY | 2022-03-16 15:05 | XMS_ITS | Encounter Summary ---
:1980 Author Organization [facility] Address [address] [place] [address] Care Team Providers Name Role Phone Elsewhere, Pcp Primary Care Provider Unavailable Reason for Referral Outpatient (Routine) - Closed Specialty Diagnoses / Procedures Referred By Contact Refer red To Contact Orthopedic Surgery Alexsander Marshall M .D. [facility] [address] [phone] Referral ID Status Reason Start Date Expiration Date Visits Requ ested Visits Authorized [id number] Closed 12/05/2019 12/04/2020 1 1 Reason for Visit Reason Comments Follow-up MRI results Outpatient (Routine) - Closed Specialty Diagnoses / Procedures Referred By Contact Refer red To Contact Orthopedic Surgery Alexsander Marshall M .D. [facility] [address] [phone] Referral ID Status Reason Start Date Expiration Date Visits Requ ested Visits Authorized [id number] Closed 11/21/2019 11/20/2020 1 1 Encounter Details Date Type Department Care Team Description 12/05/2019 Office Visit Department of Alexsander Marshall Pain Ank le Right Orthopedic Surgery in [place] (Primary Dx) [address] [place] [phone] Social History Tobacco Use Types Packs/Day Years [...] How often do you attend mandaeism or More than 4 times per year 11/09/2020 orthodox services? Do you belong to any clubs or No 11/09/2020 organizations such as mandaeism groups, unions, fraternal [...] Sign Reading Time Taken Comments Blood Pressure - - Pulse - - Temperature - - Respiratory Rate - - Oxygen Saturation - - Inhaled Oxygen Concentration - - Weight 86.2 kg (190 lb) 12/05/2019 9:55 AM CDT Height 157.5 cm (5' 2) 12/05/2019 9:55 AM CDT Body Mass Index 34.75 12/05/2019 9:55 AM CDT documented in this encounter Consult Notes Alexsander Mrashall M.D. - 12/05/2019 9:45 AM CDT HISTORY OF PRESENT ILLNESS Dulce is a 39-year-old woman who is here in regard to her ankle. We had seen her previously for her ankle and sent her to an MRI to evaluate this ankle. She is here today to discuss the results of this. OBJECTIVE DIAGNOSTICS The MRI of her right ankle demonstrate a peroneus brevis tear and some indistinctness to the anterior talofibular ligament. ASSESSMENT / PLAN #1 Dulce is a 39-year-old woman dealing with persistent lateral-sided ankle pain and feelings of instability I discussed with her the treatment options. At this point in time given the split tear to her peroneus brevis and some injury to her anterior talofibular ligament, we will make plans to proceed with a peroneus brevis repair, but also evaluate the anterior talofibular ligament and consider the possibility of a Brostrom repair at that time. She understands the risks, benefits, and alternatives to surgery and desires to proceed. 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
--- OUTSIDE RECORDS SUMMARY | 2022-03-16 15:05 | XMS_ITS | Encounter Summary ---
:1980 Author Organization [facility] Address [address] [place] [address] Care Team Providers Name Role Phone Unavailable Primary Care Provider Unavailable Reason for Visit Reason Comments Drug Screen Pre-Emp. DS MCRW Encounter Details Date Type Department Care Team Description 10/03/2018 Clinical Support Department of Occupational BosSergo berry, Drug Screen Medicine [place], M.P. H. [address] [phone] (Wo rk) Social History Tobacco Use Types [...] or relatives? How often do you attend shinto or More than 4 times per year 11/09/2020 hindu services? Do you belong to any clubs or No 11/09/2020 organizations such as shinto groups, unions, fraternal or athletic groups, or [...] or slept in a long-term (including now)? Sex Assigned at Date Recorded Not on file documented as of this encounter Progress Notes Jeanette Perez, L.P.N. - 10/03/2018 10:00 AM CDT Pre-employment UA completed. Uneventful collection. 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
--- OUTSIDE RECORDS SUMMARY | 2022-03-16 15:05 | XMS_ITS | Encounter Summary ---
:1980 Author Organization [facility] Address [address] [place] [address] Care Team Providers Name Role Phone Unavailable Primary Care Provider Unavailable Reason for Visit Reason Onset Date Comments Communication 08/28/2017 referral to [facility] for throat Encounter Details Date Type Department Care Team Description 08/28/2017 Clinical Department of Alyssa Sy Communication Communication Otorhinolaryngology in [place]. (referral to [place] [phone] [address] for throat) [address] [place] [phone] [place] [address] Social History Tobacco Use Types Packs/Day [...] to pay for the very basics like TCHOw hat hard 11/09/2020 food, housing, medical care, [...] or slept in a intermediate (including now)? Sex Assigned at Date Recorded Not on file documented as of this encounter Miscellaneous Notes Telephone Encounter - Yossi, Ronen Shah, P.ALashawn - 08/29/2017 8:27 AM CDT I spoke with Dulce over the phone this morning. [facility] given she has not quite quit smoking. Started Chantix on 08/28/2017, on track to quit by 09/04/2017. She is now down to half pack per day. She has concerns that there will be significant delay if she waits to make the appointment until she has quit smoking for a significant period of time. Understandably, she would like to regain the use of her voice as soon as possible. After some discussion of expectations, consult was placed to [facility] laryngology. Declined referral to speech language pathology locally. She reports some occasional heartburn symptoms, recommended she try OTC medications to treat reflux such as Prilosec or Nexium daily. Continues to have a mild amount of postnasal drip, improved since starting the saline rinses and nasal sprays. We will addon Atrovent 2 sprays each side twice daily. Script was sent to her pharmacy. If this works well for h er, we can consider using triple spray from the [facility] pharmacy in the future. Otherwise, she is doing well. Telephone Encounter - Danisha Maradiaga C.M.A. - 08/29/2017 8:02 AM CDT Talked with Dulce she is on Chantix and is going to be done smoking on Monday her voice comes and goes throughout the day and she would like to go to [facility] now unless you have any other options she can try first to get her voice back Telephone Encounter - Nydia Delgado - 08/28/2017 4:59 PM CDT Patient called back but deleted your voice mail, please call patient back again in regards to the [facility] order, thank you. Telephone Encounter - Danisha Maradiaga C.MLisseth - 08/28/2017 10:43 AM CDT LM for pt to call back Telephone Encounter - Danisha Maradiaga C.MLisseth - 08/28/2017 10:23 AM CDT Alyssa can you please place order to [facility] per your note Telephone Encounter - Temitope Capps - 08/28/2017 10:13 AM CDT Dulce stated that she has not yet heard from [facility] about scheduling an appointment with a throat specialist. After looking at the active requests, there is an order for a follow up with Alyssa, but no referral to [facility]. Could this please be looked at and contact patient with recommendation. Phone number confirmed correct. She is here for an eye exam this morning. 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
--- OUTSIDE RECORDS SUMMARY | 2022-03-16 15:05 | XMS_ITS | Encounter Summary ---
:1980 Author Organization [facility] Address [address] [place] [address] Care Team Providers Name Role Phone Unavailable Primary Care Provider Unavailable Reason for Visit Reason Comments Migraine presents with migraine that started last evening. Has history of migraines and reports nausea, vomiting , light sensitivity and head pain Encounter Details Date Type Department Care Team Description 01/20/2019 Emergency [place] [facility] Vaughn Sánchez, Migraine Headache Department M.DLashawn (Primary Dx) [address] [place] [address] [place] [phone] Social History Tobacco Use Types Packs/Day Years [...] or slept in a jail (including now)? 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 Migraine Headache [id number] (Citizen [place])documented in this encounter Medications [...] irrigation solution bottle and irrigate twice daily. fluticasone (FLONASE) 50 Administer [...] or vomiting for up to 10 doses. topiramate (TOPAMAX) 50 Take 50 mg by mouth 0 02/04/2020 mg tablet daily. documented as of this encounter ED Notes Vaughn Sánchez M.D. - 01/20/2019 9:22 AM CDT SUBJECTIVE CHIEF COMPLAINT/REASON FOR VISIT No chief complaint on file. HISTORY OF PRESENT ILLNESS 38-year-old female past medical history of migraine headache is here with headache. Woke this morning with insidious onset of headache similar to prior headaches. Not described as worst headache of life. She has had light sensitivity nausea and vomited at least 1 occasion. Generally she takes ibuprofen with oral Benadryl per recommendations from her neurologist unfortunately this morning she has been unable to keep medication down without vomiting and has not had significant relief from this medication. She does not endorse any focal weakness numbness or tingling. She has no speech difficulty. She has no vision changes. No recent head trauma does not take anticoagulants. REVIEW OF SYSTEMS Constitutional: Negative for appetite change and fever. HENT: Negative for congestion and voice change. Eyes: Negative for photophobia and visual disturbance. Respiratory: Negative for apnea and shortness of breath. Cardiovascular: Negative for chest pain and palpitations. Gastrointestinal: Negative for abdominal pain. Genitourinary: Negative for inability to urinate. Musculoskeletal: Negative for back pain. Skin: Negative for itching. Neurological: Positive for headaches. Negative for dizziness, facial asymmetry, weakness, numbness and loss of balance. OBJECTIVE Initial Vitals Temp Pulse Heart Rate Resp BP SpO2 -- -- -- -- -- -- Pain Score -- PHYSICAL EXAMINATION HENT: Head: Atraumatic. Mouth/Throat: Mucous membranes are moist. Eyes: EOM are normal. Pupils are equal, round, and reactive to light. Extraocular Movements: EOM normal. Neck: Normal range of motion. Neck supple. Cardiovascular: Normal rate and regular rhythm. Pulses are palpable. Capillary refill: takes less than 3 seconds, Pulmonary/Chest: Effort normal. There is normal air entry. She exhibits no retraction. Abdominal: Soft. She exhibits no distension. Musculoskeletal: Normal range of motion. No deformity. Neurological: She is alert and oriented to person, place, and time. Skin: Skin is warm and normal color. Psychiatric: She has a normal mood and affect. Nursing note and vitals reviewed. ASSESSMENT/PLAN Impression and Plan 38-year-old female past medical history of migraine headache here with primary headache. Which she describes as consistent with prior migraines. Not described as sudden onset or worst of life and has no meningeal signs. She will not require any diagnostics at this time including no head imaging or CSF analysis. We will treat as primary headache with droperidol Benadryl and Toradol. She has requested these be administered intramuscularly rather than IV. She was reassessed at 10:00 a.m. and had significant improvement in her migraine symptoms. She will continue to manage her headache in the outpatient setting as previously discussed with her neurologist. Indications to return were discussed as relates to worsening headache and or focal neurologic symptoms. Final Diagnoses: as of Jan 20 959 Migraine Headache Vaughn Sánchez M.D. 01/20/19 1456 documented in this encounter Plan of Treatment Not on filedocumented as of this encounter Visit Diagnoses Diagnosis Migraine Headache - Primary documented in this encounter Administered Medications Inactive Administered Medications - up to 3 most recent administrations Medication Order MAR Action Action Date Dose Rate Site diphenhydrAMINE injection Given 01/20/2019 9:30 50 mg Right Vastus 50 mg (BENADRYL) AM CDT Lateralis 50 mg, intramuscular, Once, On 01/20/19 at 0923, For 1 dose droperidol injection 1.25 mg Given 01/20/2019 9:30 AM 1.25 mg Left Vastus (INAPSINE) CDT Lateralis 1.25 mg, intramuscular, Once, On 01/20/19 at 0923, For 1 dose ketorolac injection 15 mg Given 01/20/2019 9:31 AM CDT 15 mg Left Ventrogluteal (TORADOL) 15 mg, intramuscular, Once, On 01/20/19 at 0923, For 1 dose, Adult IV push rate: Over 15 seconds. Peds IV push rate: Over 1 minute. 60 mg dose only for IM, not recommended for IV. documented in this encounter Active and Recently Administered Medications Times are shown in CDT. Scheduled Medication Order 01/18/2019 01/19/2019 01/20/2019 diphenhydrAMINE injection 50 mg (BENADRYL) (COMPLETED) 929 (Given - Provider: Lois Rice R.N.) 50 mg, intramuscular, Once, 01/20/19 at 0923, For 1 dose droperidol injection 1.25 mg (INAPSINE) (COMPLETED) 929 (Given - Provider: Lois Rice R.N.) 1.25 mg, intramuscular, Once, 01/20/19 at 0923, For 1 dose ketorolac injection 15 mg (TORADOL) (COMPLETED) 930 (Given - Provider: Lois Rice R.N.) 15 mg, intramuscular, Once, 01/20/19 at 0923, For 1 dose, Adult IV push rate: Over 15 seconds. Peds IV push rate: Over 1 minute. 60 mg dose only for IM, not recommended for IV. 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
--- OUTSIDE RECORDS SUMMARY | 2022-03-16 15:05 | XMS_ITS | Encounter Summary ---
:1980 Author Organization [facility] Address [address] [place] [address] Care Team Providers Name Role Phone Elsewhere, Pcp Primary Care Provider Unavailable Reason for Visit Reason Comments Hemorrhoids for a few months, tried OTC remidies, very painful still- feels like she has externam and internal, p t has diverticulitis so has frequent BMs Encounter Details Date Type Department Care Team Description 10/02/2019 Comprehensive Visit Department of Ramu Bermudez Anal (Primary Dx); General Surgery in [place] [facility] Hemorrhoids Internal [place], [address] [place] [phone] [facility] [phone] [place], [place] (Work) [id number] [phone] Social History Tobacco Use Types Packs/Day Years [...] slept in a group home (including now)? Sex Assigned at Date Recorded Not on file documented as of this encounter Last Filed Vital Signs Vital Sign Reading Time Taken Comments Blood Pressure 131/90 10/02/2019 12:55 PM CDT Pulse 88 10/02/2019 12:55 PM CDT Temperature 36.1 ??C (97 ??F) 10/02/2019 12:55 PM CDT Respiratory Rate - - Oxygen Saturation 99% 10/02/2019 12:55 PM CDT Inhaled Oxygen Concentration - - Weight - - Height - - Body Mass Index - - documented in this encounter Consult Notes Ramu Bermudez M.D. - 10/02/2019 1:00 PM CDT GENERAL SURGERY CONSULTATION REASON FOR CONSULT Evaluation of Hemorrhoids (for a few months, tried OTC remidies, very painful still- feels like she has externam and internal, pt has diverticulitis so has frequent BMs). She was referred by No ref. provider found SUBJECTIVE HISTORY OF PRESENT ILLNESS Ms. Lei is a 39 y.o. female who presents to clinic today for evaluation of hemorrhoids. She notes she has had hemorrhoidal problems for several months. She notes pain with bowel movements, blood inher stool, itching, burning, pain with prolonged sitting. She has tried hemorrhoidal cream, tucks pads, and is doing Sitz baths for symptom relief. The topical treatments have not been effective. She does not have a history of constipation and in fact has multiple loose bowel movements per day. She underwent a colonoscopy in 2017 which noted diverticulosis at the splenic flexure and descending colon,as well as internal hemorrhoids. She notes that shortly after she eats she will have a bowel movement. She denies personal or family history of colon, rectal or anal cancers. Patient Active Problem List Diagnosis ??? Migraine Headache Past Surgical History: Procedure Laterality Date ??? DILATION AND CURETTAGE N/A 03/26/2013 Dilation and curettage ??? INJECTION N/A 03/28/2005 >Compound F Injection ??? INJECTION N/A 04/21/2005 >Compound F Injection ??? MYRINGOTOMY W/ TUBES N/A 06/27/1988 Bilateral myringotomy with placement of Paparella tubes. ??? TONSILLECTOMY AND ADENOIDECTOMY N/A 04/17/1994 Tonsillectomy with adenoidectomy Allergies Allergen Reactions ??? Quinolones Other (see comments) QUINOLONES - Cipro; vomiting ??? Amoxicillin-Pot Clavulanate GI intolerance ??? Ciprofloxacin Other (see comments) ??? Silicone Other (see comments) Current Outpatient Medications: ??? cetirizine (ZyrTEC) 10 mg tablet, , Disp: , Rfl: ??? cholecalciferol, vitamin D3, (cholecalciferol) 1,000 Unit tablet, Take 1,000 Units by mouth daily., Disp: , Rfl: ??? PARoxetine (PAXIL) 10 mg tablet, Take 10 mg by mouth daily., Disp: , Rfl: ??? topiramate (TOPAMAX) 50 mg tablet, Take 50 mg by mouth daily., Disp: , Rfl: ??? UNABLE TO FIND, Med Name: Thrive, vitamins, shakes, and patches, Disp: , Rfl: ??? diphenhydrAMINE (BENYLIN) 12.5 mg/5 mL syrup, at bedtime as needed for itching. Pt doesn't know dose, takes PRN stated one cap full, Disp: , Rfl: ??? ipratropium (ATROVENT) 0.03 % nasal spray, Administer 2 sprays into affected nostril(s) every 12(twelve) hours., Disp: , Rfl: ??? lidocaine (LC-5) 5 % rectal cream, Apply 1 application topically 4 (four) times a day as needed (anal fissure)., Disp: 15 g, Rfl: 1 ??? Vitamin D2 1,250 mcg (50,000 unit) capsule, , Disp: , Rfl: Family History Problem Relation Age of Onset ??? MEDRANO - Headache Father ??? Hypertension Father ??? Asthma Sister ??? Diabetes Mother ??? Liver Mother Liver failure ??? Cataracts Neg Hx ??? Glaucoma Neg Hx ??? Macular degeneration Neg Hx Social History Socioeconomic History ??? Marital status: Single Spouse name: Not on file ??? Number of children: Not on file ??? Years of education: Not on file ??? Highest education level: Not on file Occupational History ??? Not on file Social Needs ??? Financial resource strain: Not on file ??? Food insecurity Worry: Not on file Inability: Not on file ??? Transportation needs Medical: Not on file Non-medical: Not on file Tobacco Use ??? Smoking status: Current Every Day Smoker Packs/day: 1.00 Types: Cigarettes Start date: 2007 ??? Smokeless tobacco: Never Used Substance and Sexual Activity ??? Alcohol use: Not Currently ??? Drug use: Not Currently ??? Sexual activity: Not on file Lifestyle ??? Physical activity Days per week: Not on file Minutes per session: Not on file ??? Stress: Not on file Relationships ??? Social connections Talks on phone: Not on file Gets together: Not on file Attends zoroastrian service: Not on file Active member of club or organization: Not on file Attends meetings of clubs or organizations: Not on file Relationship status: Not on file ??? Intimate partner violence Fear of current or ex partner: Not on file Emotionally abused: Not on file Physically abused: Not on file Forced sexual activity: Not on file Other Topics Concern ??? Not on file Social History Narrative ??? Not on file REVIEW OF SYSTEMS A full 14 point review of systems was reviewed with the patient. Systems reviewed include: General, HENT, Eyes, Cardiovascular, Respiratory, Gastrointestinal, Genitourinary, Skin, Musculoskeletal, Endocrine, Hematologic, Neurologic, Psychiatric and Allergic. All pertinent items are listed in the History of Present Illness, Past Medical History and Past Surgical History. Patient also notes: Fatigue, wears glasses, sinus problems, hemorrhoids, painful bowel movements, headaches, depressed mood, anxiety. All other systems are negative. OBJECTIVE PHYSICAL EXAM Vitals: 10/02/19 1255 BP: 131/90 Patient Position: Sitting Pulse: 88 Temp: 36.1 ??C SpO2: 99% TempSrc: Temporal GENERAL: Well-developed, well-nourished. In no acute distress. Sitting comfortably in examination room. HEENT: Head is atraumatic, normocephalic. Symmetrical features. External ears and nose normal. EYES: Pupils equal, round, reactive to light. Extraocular motion intact. No scleral icterus. LUNGS: Normal respiratory effort. No wheezes, crackle, or rales. No cough. RECTAL: Patient is examined in the knee-chest position with a nurse nightclub manager present. External anusfindings are notable for an anal fissure just to the right of posterior midline. A few small skin tags are present Digital rectal examination deferred. Anoscopy deferred. MUSCULOSKELETAL: Moves all extremities. No deformities or lesions. No peripheral edema. SKIN: Warm and dry. No rashes or jaundice. NEUROLOGIC: Alert and oriented x3. Cranial nerves 2 through 12 grossly intact. Normal strength and sensation in all four extremities. PSYCHIATRIC: Normal affect. Pleasant and cooperative. Diagnostics LABORATORY: Reviewed in the electronic medical record under laboratory tab. IMAGING: Reviewed in the electronic medical record. No pertinent studies. ASSESSMENT / PLAN Diagnosis Plan 1. Fissure Anal 2. Hemorrhoids Internal I discussed my findings with the patient. Her symptoms and exam findings are consistent with an analfissure. The pathophysiology of anal fissures was discussed. I recommend high-fiber diet with fiber supplementation. I discussed recommendations of good bowel habits, including avoiding constipation and straining, increased fluid intake, use of flushable wipes instead of toilet paper, and not spendinga lot of time on the toilet. She should continue Sitz baths as needed. The patient has a good chanceof resolving these issues without surgical intervention. The patient is agreeable to this plan. I will have the patient follow up with me in clinic in 6-8 weeks for a recheck. The patient can call me with any questions or concerns, or return sooner if needed. I discussed that these changes will help with internal hemorrhoids and diverticulosis as well. If her anal fissure fails to heal, examination under anesthesia and Botox injection of the internal sphincter muscle in the operating room would be re commended. She will call with any questions or concerns, or return sooner as needed. Today, I personally spent 30 minutes with the patient, of which greater than 50% of the time was spent in patient education, counseling, and coordination of care as described above. Ramu Bermudez M.D. 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
--- OUTSIDE RECORDS SUMMARY | 2022-03-16 15:05 | XMS_ITS | Encounter Summary ---
:1980 Author Organization [facility] Address [address] [place] [address] Care Team Providers Name Role Phone Elsewhere, Pcp Primary Care Provider Unavailable Reason for Visit Reason Comments Screening Questions for COVID19 11/21/19 appt Encounter Details Date Type Department Care Team Description 11/11/2019 Clinical Communication Department of Alexsander [facility] Orthopedic Surgery [facility] [place] for COVID19 (11/21/19 in [place] [address] appt) [place] [address] [address] [id number] [place], [place] [phone] (Work) [phone] Social History Tobacco Use Types Packs/Day Years [...] How often do you attend restoration or More than 4 times per year 11/09/2020 denominational services? Do you belong to any clubs or No 11/09/2020 organizations such as restoration groups, unions, fraternal [...] this encounter Miscellaneous Notes Telephone Encounter - Effie Jenkins - 11/11/2019 7:08 AM CDT ([facility] and [facility] locations only: If the patient is not having symptoms and is requesting COVID-19 Nasal Swab testing only, use the process listed in the COVID-19 Patient Requesting COVID PCR Test OTG COVID-19 [place] Patient Requesting COVID PCR Test). 1. Do you have a pending COVID test because you had symptoms or exposure to someone with COVID or you have tested positive for COVID in the last 30 days? no 2. In the past 14 days, do you, anyone in the household, or anyone you have had prolonged exposure have any of the following? a. Fever greater than or equal to 37.8 C (100.0 F)? no b. New symptoms (Specifically: headache, cough, shortness of breath, respiratory distress, sore throat, diarrhea, nausea, vomiting, chills and repeated shaking with chills, myalgia's (muscle aches), loss of smell, or change or loss of taste sensation)? no c. Had close contact with a patient with known or possible COVID-19 in the last 14 days? 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
--- OUTSIDE RECORDS SUMMARY | 2022-03-16 15:05 | XMS_ITS | Encounter Summary ---
:1980 Author Organization [facility] Address [address] [place] [address] Care Team Providers Name Role Phone Elsewhere, Pcp Primary Care Provider Unavailable Reason for Visit Reason Comments Migraine Pt presents to ED with a dean daria that started last evening around 1800. Pt complains of nausea without vominting as well. Encounter Details Date Type Department Care Team Description 06/25/2019 Emergency [place] [facility] Migraine Headache Department Bruce SAHA M.D. (Primary Dx) [id number] [address] [address] [place] [phone] (Wo rk) Social History Tobacco Use Types [...] More than 4 times per year 11/09/2020 bahai services? 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 Recurrent Migraine Headache (Norwegian)documented in this encounter Medications at Time of [...] ED Notes Gutierrez Shay III, M.D. - 06/25/2019 4:50 PM CDT SUBJECTIVE CHIEF COMPLAINT/REASON FOR VISIT Migraine (Pt presents to ED with a migraine that started last evening around 1800. Pt complains of nausea without vominting as well.) HISTORY OF PRESENT ILLNESS History provided by: Patient Migraine This is a recurrent problem. The current episode started yesterday. The problem occurs constantly. The problem has been unchanged. The pain is located in the temporal region. The pain does not radiate.The pain quality is similar to prior headaches. The quality of the pain is described as aching. The pain is at a severity of 8/10. The pain is moderate. Associated symptoms include anorexia, phonophobia and photophobia. Pertinent negatives include no abdominal pain, coughing, ear pain, fever, nausea, sore throat or vomiting. Nothing aggravates the symptoms. She has tried ergotamines and NSAIDs for the symptoms. The treatment provided no relief. REVIEW OF SYSTEMS Constitutional: Negative for chills, fatigue and fever. HENT: Negative for congestion, ear pain, sore throat and trouble swallowing. Eyes: Positive for photophobia. Respiratory: Negative for cough, shortness of breath and wheezing. Cardiovascular: Negative for chest pain, palpitations and leg swelling. Gastrointestinal: Positive for anorexia. Negative for abdominal pain, constipation, diarrhea, nauseaand vomiting. Endocrine: Negative for cold intolerance and heat intolerance. Genitourinary: Negative for dysuria, frequency, urgency, vaginal bleeding, vaginal discharge and vaginal pain. Musculoskeletal: Negative. Skin: Negative for color change and rash. Allergic/Immunologic: Negative. Neurological: Negative. Hematological: Negative for adenopathy. Does not bruise/bleed easily. Psychiatric/Behavioral: Negative for depression. OBJECTIVE Initial Vitals [06/25/19 1630] Temperature Pulse Rate Heart Rate Resp Rate Blood Pressure SpO2 36.2 ??C 88 -- 18 117/84 97 % Pain Score 8 PHYSICAL EXAMINATION Constitutional: Nursing note and vitals reviewed. Vital signs are normal. HENT: Head: Normocephalic and atraumatic. Mouth/Throat: Mucous membranes are moist. Eyes: Conjunctivae and EOM are normal. Pupils are equal, round, and reactive to light. Extraocular Movements: EOM normal. Neck: Normal range of motion. Neck supple. No JVD present. No neck adenopathy. Cardiovascular: Normal rate, regular rhythm, S1 normal, S2 normal and normal heart sounds. Pulses are strong and palpable. Capillary refill: takes less than 3 seconds, Pulmonary/Chest: Effort normal and breath sounds normal. There is normal air entry. Abdominal: Soft. Bowel sounds are normal. She exhibits no distension. There is no abdominal tenderness. Musculoskeletal: Normal range of motion. Neurological: She is alert and oriented to person, place, and time. No cranial nerve deficit. Skin: Skin is warm, dry, intact and normal color. Psychiatric: She has a normal mood and affect. ASSESSMENT/PLAN Impression and Plan History of migraine headache. Patient made specific instructions as to requested therapy. The patient recently had an increase in her Maxalt. She has moderate improvement with a combination of Toradol and antiemetics. Differential Diagnoses HEADACHE Life threatening differential diagnoses include: SAH, meningitis, encephalitis, carbon monoxide poisoning and intracerebral hemorrhage. Other differential diagnoses include, but are not limited to: Migraine, cluster headache, tension headache, R&D LAB TECHNICIAN vasculitis, mass lesion, temporal arteritis, acute closed [...] previous visits. Final Diagnoses: as of Jun 25 1703 Migraine Headache Gutierrez Shay III, M.D. 06/26/191914 documented in this encounter Plan of Treatment Not on filedocumented as of this encounter Visit Diagnoses Diagnosis Migraine Headache - Primary documented in this encounter Administered Medications Inactive Administered Medications - up to 3 most recent administrations Medication Order MAR Action Action Date Dose Rate Site diphenhydrAMINE injection Given 06/25/2019 4:57 25 mg Right Ventrogluteal 25 mg (BENADRYL) PM CDT 25 mg, intramuscular, Once, On Mon06/25/19 at 1651, For 1 dose ketorolac injection 15 mg Given 06/25/2019 4:58 PM CDT 15 mg Right Dorsogluteal (TORADOL) 15 mg, intramuscular, Once, On Mon06/25/19 at 1651, For 1 dose, Adult IV push rate: Over 15 seconds. Peds IV push rate: Over 1 minute. 60 mg dose only for IM, not recommended for IV. ondansetron ODT disintegrating tablet 4 mg Given 06/25/2019 4:57 PM CDT 4 mg (ZOFRAN-ODT) 4 mg, sublingual, Once, On 06/25/19 at 1651, For 1 dose, When splitting ODT at bedside, handle with gloves and a pill splitter to prevent moisture contact. documented in this encounter Active and Recently Administered Medications Due to Daylight Saving Time, this section may contain times in both DIE MECHANIC and CDT. Scheduled Medication Order 06/23/2019 06/24/2019 06/25/2019 diphenhydrAMINE injection 25 mg (BENADRYL) (COMPLETED) 1656 (Given - Provider: Garrett Drake R.N.) 25 mg, intramuscular, Once, 06/25/19 at 1651, For 1 dose ketorolac injection 15 mg (TORADOL) (COMPLETED) 1657 (Given - Provider: Garrett Drake R.N.) 15 mg, intramuscular, Once, 06/25/19 at 1651, For 1 dose, Adult IV push rate: Over 15 seconds. Peds IV push rate: Over 1 minute. 60 mg dose only for IM, not recommended for IV. ondansetron ODT disintegrating tablet 4 mg (ZOFRAN-ODT) (COMPLET ED) 1656 (Given - Provider: Garrett Drake RJennifer.) 4 mg, sublingual, Once, 06/25/19 at 1 651, For 1 dose, When splitting ODT at bedside, handle with gloves and a pill splitter to prevent moisture contact. 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
--- OUTSIDE RECORDS SUMMARY | 2022-03-16 15:05 | XMS_ITS | Encounter Summary ---
:1980 Author Organization [facility] Address [address] [place] [address] Care Team Providers Name Role Phone Elsewhere, Pcp Primary Care Provider Unavailable Reason for Visit Reason Comments URI cough, sore throat; since Encounter Details Date Type Department Care Team Description 06/29/2019 Office Visit Department of Family Jonathan Zapata, Cough (Primary Dx); Medicine, [place] [facility] Myalgia; Clinic, in [place] [address] Infection Upper Respiratory [id number] [place] [address] [phone] [id number] (Work) [phone] Social History Tobacco Use Types Packs/Day Years Used Date Smoking Tobacco: Every Day Cigarettes 1 S tarted: 2007 Smokeless Tobacco: Never Tobacco Cessation: Ready to Quit: Yes; Edward brunner Given: Yes Alcohol Use Standard Drinks/Week Comments [...] More than 4 times per year 11/09/2020 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 Do you belong to any [...] or slept in a longterm (including now)? 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 - 06/29/2019 10:15 AM CDT SUBJECTIVE Dulce Lei is a 39 y.o. female Chief Complaint Patient presents with ??? 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 No fever. She has no known contact with COVID- 19. No travel history. She did take her father up to the [facility] three days ago but was not aware of any contagious exposure. She has a stuffed up nose which is a or were symptom. She uses CPAP with a nasal appliance, or rather is trying to, these past couple nights. She feels achy and tired. Smokes half a pack to a full pack per day. REVIEW OF SYSTEMS See above. OBJECTIVE PHYSICAL EXAMINATION General: Patient in no distress. Looks well nourished. BP 107/79 (BP Location: Left arm, Patient Position: Sitting, Cuff Size: Regular) Pulse 78 Temp 37.1 ??C (Temporal) Wt 89.8 kg LMP 06/24/2019 SpO2 98% BMI 37.41 kg/m?? Psychiatric: Alert and attentive. Normal mood/behavior. Lungs: Respiratory effort is normal. Lungs clear to auscultation bilaterally. Neuro: Facial motor strength is normal bilaterally. Speech clear. Skin: Warm and dry with normal color. TMs normal. OP exam normal. Recent Results (from the past 72 hour(s)) Influenza A/B and RSV, PCR, Point of Care Collection Time: 06/29/19 10:54 AM Result Value Influenza A, B, RSV, PCR, POCT Collected Influenza A/B and RSV, PCR, Point of Care Collection Time: 06/29/19 11:16 AM Result Value Influenza A, POCT Negative Influenza B, POCT Negative Resp Synctial Virus, POCT Negative ASSESSMENT / PLAN New med list after this visit: Current Outpatient Medications Medication Sig Dispense Refill ??? cetirizine (ZyrTEC) 10 mg tablet ??? cholecalciferol, vitamin D3, (cholecalciferol) 1,000 Unit tablet Take 1,000 Units by mouth daily. ??? PARoxetine (PAXIL) 10 mg tablet Take 10 mg by mouth daily. ??? topiramate (TOPAMAX) 50 mg tablet Take 50 mg by mouth daily. ??? Vitamin D2 1,250 mcg (50,000 unit) capsule ??? diphenhydrAMINE (BENYLIN) 12.5 mg/5 mL syrup at bedtime as needed for itching. Pt doesn't know dose, takes PRN stated one cap full ??? magnesium citrate (CITROMA) solution No current facility-administered medications for this visit. #1 Cough #2 Myalgia #3 Infection Upper Respiratory, viral Viral URI is most likely. Not influenza. She was hoping for a specific diagnosis to help her get back to work. she will need to follow their protocols for a viral URI. Using Afrin nasal spray to decongest the nose will help her to tolerate the CPAP in the short term. Patient instruction: return to clinic if not improved, or call. documented in this encounter Plan of Treatment Not on filedocumented as of this encounter Procedures Procedure Name Priority Date/Time Associated Diagnosis Comme nts INFLUENZA A, B, Routine 06/29/2019 11:16 AM Resul ts for this RSV, PCR, POCT CDT procedure are in the results section. INFLUENZA A, B, Routine 06/29/2019 10:54 AM Cough Results for this RSV, PCR, POCT CDT Myalgia procedure are in the results section. documented in this encounter Results Influenza A/B and RSV, PCR, Point of Care (06/29/2019 11:16 AM CDT) P athologist Signature Influenza A, Negative Negative 06/29/2019 [facility] POCT 11:16 AM CDT Influenza B, Negative Negative 06/29/2019 [facility] POCT 11:16 AM CDT Resp Syncytial Negative Negative 06/29/2019 [facility] Virus, POCT 11:16 AM CDT Specimen Anatomical Collection Method Collection Time Receive d Time (Source) Location / / Volume Laterality Varies 06/29/2019 11:16 06/29/2019 AM CDT 11:17 AM CDT Generic [facility]als LAB POCT ORDERABLES - DEVICE Performing Organization Address [facility] Code Phon e Number [address] [address] [place] [address] System [address] Influenza A/B and RSV, PCR, Point of Care (06/29/2019 10:54 AM CDT) Analysis Performed At Patho logist Time Signature Influenza A, Collected DEFAULT 06/29/2019 [facility] B, RSV, PCR, 10:54 AM CDT POCT Specimen Anatomical Collection Method Collection Time Receive d Time (Source) Location / / Volume Laterality Varies 06/29/2019 10:54 06/29/2019 AM CDT 10:54 AM CDT Jonathan Zapata M.D. 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
--- OUTSIDE RECORDS SUMMARY | 2022-03-16 15:05 | XMS_ITS | Encounter Summary ---
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
--- OUTSIDE RECORDS SUMMARY | 2022-03-16 15:05 | XMS_ITS | Encounter Summary ---
:1980 Author Organization [facility] Address [address] [place] [address] Care Team Providers Name Role Phone Elsewhere, Pcp Primary Care Provider Unavailable Reason for Visit Reason Comments ANDREI Nurse Line Encounter Details Date Type Department Care Team Description 10/24/2019 Clinical Communication Division of ANDREI Pham Nurse Eri [facility] Internal Tong [place] [facility] [place] [address] [facility], in [facility] [address] [place] [phone] [address] [facility] (Work) [place] [address] Social History Tobacco Use Types Packs/Day Years [...] or slept in a usp (including now)? Sex Assigned at Date Recorded Not on file documented as of this encounter Miscellaneous Notes Telephone Encounter - Lin Pham R.N. - 10/24/2019 9:08 PM CDT COVID-19 Nurse Line Screening ASSESSMENT COVID 19 Screening Have you had close contact with a person who has a LABORATORY CONFIRMED case of COVID-19?: No - Continue screening. In the last 48 hours have you had any of the following symptoms?: No - Complete screening. Consider alternative diagnosis. We are not currently testing or isolating patients or visitors who have no symptoms and no close contact. PLAN Endpoint recommendation: Screening negative, testing not indicated at this time Care Points provided: STANDARD PRECAUTIONS FOR ALL PATIENTS: Wash hands often with soap and water for at least 20 seconds, especially after blowing your nose, coughing, sneezing, or having been in a public place. If soap and water aren't available, use a hand set key driver that contains at least 60% alcohol. Avoid close contact with anyone who may be exhibiting respiratory symptoms such as coughing and sneezing. Avoid touching your eyes, nose and mouth. Clean and disinfect frequently touched surfaces daily. Cover your mouth and nose with a cloth face cover when around others or in public. The cloth face cover is not a substitute for social distancing. Continue to keep about 6 feet between yourself andothers. Monitor for symptoms. Do not take your temperature within 30 minutes of exercise. If your test or screen is negative and new symptoms develop please contact your provider. Educational Resource: https://www.cdc.gov/coronavirus/2019-ncov/rgcdllt-wlzyfyf-kgkm/index.html RECOMMENDATIONS TESTING CRITERIA IS MET: Stay home except to get medical care. Avoid public areasand public transportation. Separate yourself from other people and stay in a specific sick room ifpossible. Wear a cloth face covering, over your nose and mouth if you must be around other people even at home). Cover your [...] determine if re-testing is necessary. Education Resources: https://www.cdc.gov/coronavirus/2019-ncov/i u-zlv-fzy-sick/mmssn-snxt-spbb.html SELF CARE FOR ALL PATIENTS: Take breaks from watching, reading, or listening to news stories. Make time to unwind. Try to do some other activities you enjoy. Connect with others. Be creative in keepingconnected with loved ones, especially those at high risk. Try healthy coping strategies such as meditation, relaxation, exercise, healthy eating habits, and avoid alcohol and drugs. 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
--- OUTSIDE RECORDS SUMMARY | 2022-03-16 15:05 | XMS_ITS | Encounter Summary ---
:1980 Author Organization [facility] Address [address] [place] [address] Care Team Providers Name Role Phone Elsewhere, Pcp Primary Care Provider Unavailable Reason for Visit Reason Comments Treatment Questions Encounter Details Date Type Department Care Team Description 06/29/2019 Clinical Communication Division of Su Chowdhury Treat ment Questions [facility] Internal M, R.N. [facility] [address] [facility] in [facility] [address] [place] [phone] [address] [facility] ([place]) [place] [address] Social History Tobacco Use Types Packs/Day Years [...] slept in a senior care (including now)? Sex Assigned at Date Recorded Not on file documented as of this encounter Miscellaneous Notes Telephone Encounter - Su Chowdhury R.N. - 06/29/2019 9:42 AM CDT Nurse Phone Triage Assessment SUBJECTIVE None CHIEF COMPLAINT / REASON FOR CALL Questions regarding novel coronavirus (COVID-19) HISTORY OF PRESENT ILLNESS Dulce Lei calls to report dry cough and sore throat. Her employer in [employer] sent her to the [facility] there to get tested for COVID. She is sitting in the parking lot at [facility] in [place] and they told her that she has to call to be screened before they will swab her. She denies fever. Does patient have fever, cough or respiratory symptoms? Yes If no to the above, consider alternative diagnosis. We are not currently testing or isolating asymptomatic patients. If yes to fever, cough, or respiratory symptoms Has the patient had air travel/cruise or domestic travel to major metropolitan areas in the last 14 days? No Does patient fall into any of the high risk categories as identified by [facility] Infectious Disease? No Have you had close contact with a person with a laboratory confirmed case of COVID-19? No SYMPTOM ASSESSMENT Do you have lightheadedness? No Do you feel like you may collapse when you sit or stand up? No Respiratory effort/distress: No SOB Date of onset of SOB: none (*Note to nurse: If patient has SOB at rest, lightheadedness or feels as if they will collapse everytime they sit or stand or up, the patient should present to the ED.) Cough: Non-productive Date of onset of cough: unknown Fever: No Date of onset of fever Exposure to influenza (if high risk illness/disease consider Influenza Treatment Nurse Protocol) Unsure or (up to 2 weeks) Unsure Other symptoms: PLAN Endpoint recommendation: Clinic appointment in greater than 4 hours Care Points provided: Wash hands often with soap and water for at least 20 seconds, especially afterblowing your nose, coughing, sneezing, or having been in a public place., If soap and water aren't available use a hand cutter helper that contains at least 60% alcohol. and Avoid touching your face, nose and eyes. 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
--- OUTSIDE RECORDS SUMMARY | 2022-03-16 15:05 | XMS_ITS | Encounter Summary ---
:1980 Author Organization [facility] Address [address] [place] [address] Care Team Providers Name Role Phone Elsewhere, Pcp Primary Care Provider Unavailable Reason for Referral Outpatient (Routine) - Closed Specialty Diagnoses / Procedures Referred By Contact Refer red To Contact Orthopedic Surgery Alexsander Marshall M .D. [facility] Region [address] [place] [address] Referral ID Status Reason Start Date Expiration Date Visits Requ ested Visits Authorized [id number] Closed 11/21/2019 11/20/2020 1 1 MRI/CAT/PET Scan (Routine) - Closed Specialty Diagnoses / Procedures Referred By Contact Refer red To Contact Radiology Diagnoses Pain Ankle Right Alexsander Marshall [facility].D. [facility] Region Procedures MR Ankle Right without IV Contrast TN MRI LWR EXT JOINT WO [facility]ST [address] [place] [address] Referral ID Status Reason Start Date Expiration Date Visits Requ ested Visits Authorized [id number] Closed 11/21/2019 11/20/2020 1 1 Reason for Visit Appointment Request (Routine) - Closed Specialty Diagnoses / Procedures Referred By Contact Refer red To Contact Family Medicine Referral ID Status Reason Start Date Expiration Date Visits Requ ested Visits Authorized [id number] Closed 11/11/2019 11/10/2020 1 1 Encounter Details Date Type Department Care Team Description 11/21/2019 Comprehensive Visit Department of Alexsander Marshall Pain Ankle Right Orthopedic Surgery Tushar Claire (Primary Dx) in [place], [address] [place] [address] [address] [facility] [address] [place], [place] [phone] (Work) [phone] Social History Tobacco Use Types Packs/Day Years [...] documented as of this encounter Consult Notes Alexsander Marshall M.D. - 11/21/2019 2:00 PM CDT HISTORY OF PRESENT ILLNESS uDlce is a 39-year-old woman who is here in regard to her ankle. She has had ongoing troubles with right ankle pain, some feelings of instability, but primarily pain for her. OBJECTIVE PHYSICAL EXAMINATION Examination of her right ankle, she has significant tenderness overlying the lateral aspect of her ankle in particular. Also have some tenderness directly overlying the posterior tibial tendon. She hasno john instability to her ankle, but does have tenderness directly over the anterior talofibular ligament. She has a relatively well maintained arch. Can do a bilateral heel rise. DIAGNOSTICS X-rays of her right ankle that were previously obtained demonstrate no fracture and no malalignment. ASSESSMENT / PLAN #1 Dulce is a 39-year-old woman who sustained injury to her ankle and has had problems with persistent pain I discussed with her the treatment options, but given her persistent pain despite significant periodof time my suggestion is to obtain an MRI to evaluate for peroneal tendon tear or a OCD injury. We will see her back after the MRI is obtained to discuss the results regarding continuing care. 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
--- OUTSIDE RECORDS SUMMARY | 2022-03-16 15:05 | XMS_ITS | Encounter Summary ---
:1980 Author Organization [facility] Address [address] [place] [address] Care Team Providers Name Role Phone Unavailable Primary Care Provider Unavailable Reason for Visit Outpatient (Routine) - Closed Specialty Diagnoses / Procedures Referred By Contact Refer red To Contact Otorhinolaryngology Diagnoses Dysphonia Ie, Ronen Shah [place] [facility] [address] [place] [address] Referral ID Status Reason Start Date Expiration Date Visits Requ ested Visits Authorized [id number] Closed 08/29/2017 02/25/2018 1 1 Encounter Details Date Type Department Care Team Description 09/08/2017 Comprehensive Visit Department of Florinda Barker Nasal (Primary Dx); Otorhinolaryngology in Jessica Hughes [place], [place] MRoberto [address] [facility] [address] [place] [address] [place] [address] Social History Tobacco Use Types Packs/Day Years Used Date Smoking Tobacco: Every Day Cigarettes 1 S tarted: 2007 Smokeless Tobacco: Never Alcohol Habits Answer Date [...] 11/09/2020 organizations such as latter-day groups, unions, [employer] or athletic groups, or school groups? How [...] or slept in a snf (including now)? Sex Assigned at Date Recorded Not on file documented as of this encounter Consult Notes Radha Barker M.D. - 09/08/2017 8:30 AM CDT CHIEF COMPLAINT/PURPOSE OF VISIT: Dysphonia HISTORY OF PRESENT ILLNESS: Dulce Lei is a very pleasant 37 y.o. female we are asked to see patient for evaluation of persistent dysphonia in the setting of smoking. Patient has been under treatment for postnasal drainage nasal obstruction with nasal irrigations antibiotics steroids and multiple nasal sprays and steroidrinse. This has been helpful she currently is using his nasal irrigations and nasal steroid irrigation. She has had problems with a hoarse voice is a smoker feels her voice may be somewhat better afterthe use of her nasal steroids but comes in now for evaluation to rule out any evidence of serious laryngeal pathology or to see if any surgery is necessary. Patient smokes approximately a pack a day wants to quit but is fearful of some of the medication and has not tried anything at. ROS: Pertinent items are noted in HPI; all other review of systems were negative. CURRENT MEDICATIONS: Current Outpatient Prescriptions: ??? ACETAMINOPHEN ORAL, Take 500 mg by mouth every 6 (six) hours as needed., Disp: , Rfl: ??? azelastine (ASTELIN) 137 mcg/spray (0.1 %) nasal spray, Administer 2 sprays into each nostril 2 (two) times a day. Use in each nostril as directed, Disp: 30 mL, Rfl: 11 ??? budesonide (PULMICORT) 0.5 mg/2 mL nebulizer solution, Mix 1 ampule in sinus irrigation bottle and irrigate twice daily., Disp: 240 mL, Rfl: 6 ??? cetirizine (ZyrTEC) 10 mg tablet, Take 1 tablet (10 mg total) by mouth daily as needed for allergies., Disp: 30 tablet, Rfl: 3 ??? fluticasone (FLONASE) 50 mcg/actuation nasal spray, Administer 2 sprays into each nostril daily., Disp: 1 Bottle, Rfl: 11 ??? ibuprofen (for_ADVIL,MOTRIN) 200 mg tablet, Take 4 tablets by mouth as needed., Disp: , Rfl: ??? ipratropium (ATROVENT) 0.03 % nasal spray, Administer 2 sprays into each nostril 2 (two) times aday., Disp: 30 mL, Rfl: 5 ??? ketorolac (for_TORADOL) 10 mg tablet, Take 1 tablet by mouth 4 (four) times a day., Disp: , Rfl: ??? magnesium citrate (CITROMA) solution, , Disp: , Rfl: ??? sodium chloride-sodium bicarbonate (NETI POT) nasal rinse, Administer 1 application into each nostril as needed for congestion., Disp: 100 each, Rfl: 11 ??? topiramate (TOPAMAX) 50 mg tablet, Take 50 mg by mouth daily., Disp: , Rfl: Social History: ALLERGIES: Reviewed and updated in the EMR. PAST MEDICAL HISTORY: There is no problem list on file for this patient. SURGICAL HISTORY: Past Surgical History: Procedure Laterality Date ??? DILATION AND CURETTAGE N/A 03/26/2013 Dilation and curettage ??? INJECTION N/A 03/28/2005 >Compound F Injection ??? INJECTION N/A 04/21/2005 >Compound F Injection ??? MYRINGOTOMY W/ TUBES N/A 06/27/1988 Bilateral myringotomy with placement of Paparella tubes. ??? TONSILLECTOMY AND ADENOIDECTOMY N/A 04/17/1994 Tonsillectomy with adenoidectomy VITAL SIGNS: There were no vitals filed for this visit. PHYSICAL EXAM: General: Alert, interactive 37 y.o. year old female, in no acute distress. Head: Normocephalic, atraumatic. Hair and scalp normal. Face: Symmetric. House-Brackmann 1/6 bilaterally. Sinuses non-tender to palpation. Ears: Normal shaped pinna bilaterally. External auditory canals are clear. Tympanic membranes are intact with well-aerated middle ear spaces bilaterally. Mastoid area is non-tender, non-erythematous, and non-fluctuant bilaterally. Nose: The nares are patent. Nasal mucosa is pink and moist. Nasal cavities are clear without masses or discharge. No polyps, septal deviation, or mucopurulence on anterior rhinoscopy. Mouth: Normal, healthy-appearing dentition. Without trismus. Tongue is midline and mobile. Oral and buccal mucosa is pink and moist. Tonsils are non- erythematous and without exudates bilaterally. Uvulais midline and there is no asymmetry of the palatal arch. Floor of mouth is soft and flat, with no mass on bimanual palpation. Tongue and base of tongue is also without masses. Neck: Supple, normal range of motion. Trachea is midline. No palpable cervical lymphadenopathy or masses bilaterally. Normal carotid pulses bilaterally. Thyroid is non-tender and without palpable nodules. Neurologic: Cranial Nerves II through XII are grossly intact. Voice is strong and easily understandable without dysphonia or vocal tremor. Pulmonary: Patient has non-labored breathing. No audible stridor. Skin: [place] and dry. Psych: Appropriate mood and affect. PROCEDURE Procedure Note Patient gave verbal consent for procedure, [facility] Protocol was Followed ,I was with patient entire time. A flexible fiberoptic examination was performed given the patients symptoms and the lack of an acceptable examination by mirror laryngoscopy alone. Pre-operative Diagnosis:DYSPHONIAPost-operative Diagnosis: same Anesthesia:Phenylephrine (0.05%) and Lidocaine spray (2%) Endoscopy Type: laryngoscopy Procedure Details: The patient was placed in the sitting position. After topical anesthesia and decongestion, the 4 mm laryngoscope was passed. Anatomic limitations prevented adequate mirror laryngoscopy thus flexible fiberoptic endoscopy was performed after anesthetizing the nose with topical spray. The scope was passed through the right nasal passageway. Findings: Septum: Septum is non obstructive and largely midline with healthy appearing mucosa Nasal cavity: Nasal passageway patent with no lesions, masses, polyps or mucopurulent drainage Nasopharynx: The adenoid pad was non obstructive and non hypertrophic, Eustachian tube orofice and fossa of Rosenmueller were normal bilaterally Oropharynx: The tongue base was symmetric, the tonsils were non obstructive. Larynx: The larynx was carefully inspected there was evidence of mild polypoid change on each vocal cord left greater than right a thin strip of leukoplakia along the edge of the polypoid material consistent with contact irritation as opposed to findings worrisome for malignancy. The cords were mobile. Proximal trachea and subglottis appears normal. Hypopharynx: Pyriform sinuses, posterior pharyngeal wall visualized and healthy Impression: Smoker changes of the larynx with mild polypoid change Condition: Stable. Patient tolerated procedure well. Complications: None DATA: ASSESSMENT: #1 Dysphonia Secondary to smoking no indication for surgery at this time. 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
--- OUTSIDE RECORDS SUMMARY | 2022-03-16 15:05 | XMS_ITS | Encounter Summary ---
:1980 Author Organization [facility] Address [address] [place] [address] Care Team Providers Name Role Phone Unavailable Primary Care Provider Unavailable Encounter Details Date Type Department Care Team Description 08/24/2017 Orders Only Department of Ie, Alyssa, Pressure Ear Otorhinolaryngology in [facility] 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
--- OUTSIDE RECORDS SUMMARY | 2022-03-16 15:05 | XMS_ITS | Encounter Summary ---
:1980 Author Organization [facility] Address [address] [place] [address] Care Team Providers Name Role Phone Unavailable Primary Care Provider Unavailable Reason for Visit Reason Comments Blurred Vision Outpatient (Routine) - Closed Specialty Diagnoses / Procedures Referred By Contact Refer red To Contact Ophthalmology Diagnoses Blurred Vision Ie, Ronen Shah [facility] [address] [place] [address] Referral ID Status Reason Start Date Expiration Date Visits V isits Requested Authorized [id number] Closed Specialty 08/21/2017 02/17/2018 1 1 Services Required Encounter Details Date Type Department Care Team Description 08/28/2017 Office Visit Department of Ramu Alarcon ed Vision; Ophthalmology in [place] Lem[place] M.D. [address] [phone] Social History Tobacco Use Types Packs/Day Years [...] More than 4 times per year 11/09/2020 mormonism services? Do you belong to any [...] or slept in a halfway (including now)? Sex Assigned at Date Recorded Not on file documented as of this encounter Progress Notes Ramu Alarcon M.D., Ph.D. - 08/28/2017 10:30 AM CDT Dulce Lei was seen today for Blurred Vision #1 Blurred Vision Blurred distance vision refractive error changes new prescription given. The patient still has some blurred vision she should consider being evaluated again for thyroid disease. She has been evaluated with that testing in the past about 3-4 years ago and it was negative. 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
--- OUTSIDE RECORDS SUMMARY | 2022-03-16 15:05 | XMS_ITS | Encounter Summary ---
:1980 Author Organization [facility] Address [address] [place] [address] Care Team Providers Name Role Phone Unavailable Primary Care Provider Unavailable Reason for Visit Reason Comments MRO Review [id number] Encounter Details Date Type Department Care Team Description 10/04/2018 Office Visit Department of Occupational Mandy Monk, [facility] [address] [phone] (Wo rk) Social History Tobacco Use Types [...] documented as of this encounter Progress Notes Sulma Franz L.PLashawnN. - 10/04/2018 7:15 AM CDT MRO Review for [facility]-. 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
--- OUTSIDE RECORDS SUMMARY | 2022-03-16 15:05 | XMS_ITS | Encounter Summary ---
:1980 Author Organization [facility] Address [address] [place] [address] Care Team Providers Name Role Phone Unavailable Primary Care Provider Unavailable Reason for Referral MRI/CAT/PET Scan (Routine) - Closed Specialty Diagnoses / Procedures Referred By Contact Refer red To Contact Radiology Diagnoses Sinusitis Chronic Ie, Ronen Shah [place] Procedures CT Sinuses without IV Contrast CT Head and Maxillofacial without IV Contrast HI CT MAXFAC WO [facility]TRST HI CT HEAD/BRAIN WO CNTRST HC CT MAXFAC WO CNTRST HC CT HEAD/BRAIN WO CNTRST HI CT MAXFAC WO CNTRST HI CT HEAD/BRAIN WO CNTRST [address] MAXFAC WO CNTRST HC CT MAXFAC WO CNTRST HI CT MAXFAC WO [place]TRST [place] [phone] Referral ID Status Reason Start Date Expiration Date Visits Requ ested Visits Authorized [id number] Closed 08/21/2017 02/17/2018 1 1 Reason for Visit MRI/CAT/PET Scan (Routine) - Closed Specialty Diagnoses / Procedures Referred By Contact Refer red To Contact Radiology Diagnoses Sinusitis Chronic Ie, Ronen Shah [place] [facility] Procedures CT Sinuses without IV Contrast CT Head and Maxillofacial without IV Contrast HI CT MAXFAC WO CNTRST HI CT HEAD/BRAIN WO CNTRST HC CT MAXFAC WO CNTRST HC CT HEAD/BRAIN WO CNTRST HI CT MAXFAC WO CNTRST HI CT HEAD/BRAIN WO CNTRST [address] MAXFAC WO CNTRST HC CT MAXFAC WO CNTRST HI CT MAXFAC WO [place]TRST [place] [phone] Referral ID Status Reason Start Date Expiration Date Visits Requ ested Visits Authorized [id number] Closed 08/21/2017 02/17/2018 1 1 Encounter Details Date Type Department Care Team Description 08/23/2017 Hospital Encounter Department of Ie, Nic Shah Chronic Radiology in [place], [place] [address] [place] [address] [place] [phone] Social History Tobacco Use Types Packs/Day Years [...] (for_ADVIL,MOTRIN) 200 mouth as needed. mg tablet ketorolac (for_TORADOL) Take 1 tablet by 0 201506/29/2019 10 mg tablet mouth 4 (four) times a day. topiramate (TOPAMAX) 50 Take 50 mg by mouth 0 02/04/2020 mg tablet daily. documented as of this encounter Plan of Treatment Not on filedocumented as of this encounter Procedures Procedure Name Priority Date/Time Associated Comments Diagnosis CT SINUSES RAD - Routine 08/23/2017 3:26 Sinusitis Chronic Result s for this WITHOUT IV (most inpatients PM CDT procedure a re in CONTRAST and all the results outpatients) section. documented in this encounter Results CT Sinuses without IV Contrast (08/23/2017 3:26 PM CDT) Anatomical Region Laterality Modality Head, Neuroradiology RST LOS N/A Computed To mography Specimen (Source) Anatomical Collection Method Collection Time Re ceived Time Location / / Volume Laterality 08/23/2017 3:32 PM CDT Impressions 08/23/2017 3:35 PM CDT IMPRESSION: 1. ??Near complete interval resolution o f paranasal sinus mucosal thickening since 07/31/2017 with only trace mucosal thickening and fluid level noted in the right maxillary sinus. 2. ??Stable operative changes bilateral middle meatal antrectomies. Narrative 08/23/2017 3:35 PM CDT EXAM: CT SINUSES WITHOUT IV CONTRAST COMPARISON: 07/31/2017. FINDINGS: Significant interval diminishm ent of paranasal sinus mucosal disease since 07/31/2017. Only trace mucosal thic kening and fluid level remains in the right maxillary sinus. Remaining paranas al sinuses are clear. Bilateral middle meatal antrectomy changes noted. No bony erosive or osteolytic changes. Orbital structures normal in appearance. Visuali zed intracranial structures unremarkable. Procedure Note Jc Cristina M.D. - 08/23/2017Formatt ing of this note might be different from the original. EXAM: CT SINUSES WITHOUT IV CONTRAST COMPARISON: 07/31/2017. FINDINGS: Significant interval diminishm ent of paranasal sinus mucosal disease since 07/31/2017. Only trace mucosal thic kening and fluid level remains in the right maxillary sinus. Remaining paranas al sinuses are clear. Bilateral middle meatal antrectomy changes noted. No bony erosive or osteolytic changes. Orbital structures normal in appearance. Visuali zed intracranial structures unremarkable. IMPRESSION: 1. Near complete interval resolution of paranasal sinus mucosal thickening since 07/31/2017 with only trace mucosal thickening and fluid level noted in the right maxillary sinus. 2. Stable operative changes bilateral mi ddle meatal antrectomies. 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
--- OUTSIDE RECORDS SUMMARY | 2022-03-16 15:05 | XMS_ITS | Encounter Summary ---
:1980 Author Organization [facility] Address [address] [place] [address] Care Team Providers Name Role Phone Unavailable Primary Care Provider Unavailable Encounter Details Date Type Department Care Team Description 06/19/2018 Clinical Communication Department of Charity Dunn, Otorhinolaryngology in [place] [address] [address] [place], [place] [phone] Social History Tobacco Use Types Packs/Day Years [...] or slept in a mcc (including now)? Sex Assigned at Date Recorded Not on file documented as of this encounter Miscellaneous Notes Telephone Encounter - Charity Dunn R.N. - 06/19/2018 1:31 PM CST Specialty Surgical Services Triage Call Reason for call/visit Sinus pressure/pain/infection Call Note: Assessment History per 08/07/17 ENT visit: 1. Acute on chronic pansinusitis. 2. Sinonasal polyposis 3. Status post sinus surgery-2000 4. Tobacco abuse 5. 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 Patient was seen and treated in [place] ER on 06/17/18 for sinus infection. Patient was prescribed an oral antibiotic and was told to follow up with her ENT provider to prevent having to take multiple antibiotics to cure the sinus infection. Patient states that she has not felt any improvements since starting the antibiotics. Patient reports having sinus pressure, sinus headache, fever/chills the last 2-3 days, a choky cough, clear nasal drainage, post nasal drainage, burning of the sinus and nostrils. Patient has been taking warm showers, applying warm packs, taking Mucinex severe sinus,and Sudafed. Patient has restarted nasal rinses. Patient reports a dry,hard spot on the inner nasal area on the right side, feels like sand paper, this area is irritated when she uses the nasal rinses. Also, patient's son tested positive for influenza B despite getting the flu shot last fall. Intervention Patient is scheduled to be seen in ENT on 06/20/18, 30 minute appointment. Has patient called or presented with the same symptom previously yes - 07/2017 Is patient experiencing other symptoms: no The following references were used: nursing clinical judgement and other telephone triage ro pages [phone] Education provided: patient/caller able to teach back Disposition/Recommendation: patient to schedule appointment Caller agreeable to plan of care: yes The following individuals participated in today???s interaction: patient [id number] Developer used: no Additional concerns addressed: none L FABRICATOR documented in this encounter Plan of Treatment Not on filedocumented as of this encounter Visit Diagnoses Not on filedocumented in this encounter Additional Health Concerns Assessment Noted Time PHQ-9 Depression Total Score: 1 06/13/2014 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
--- OUTSIDE RECORDS SUMMARY | 2022-03-16 15:06 | XMS_ITS | Encounter Summary ---
:1980 Author Organization [facility] Address [address] [place] [address] Care Team Providers Name Role Phone Unavailable Primary Care Provider Unavailable Reason for Visit Reason Comments Cough reports has dx of sinus infe ction with multiple abx used. is currently on zithromax and methylpredniso ne that she started on monday. this is her 5th abx. left ear also hurts. un able to control cough so she can sleep. Encounter Details Date Type Department Care Team Description 08/04/2017 Emergency [facility] Martin Lopez, Acute Recurrent Department M.DLashawn Maxillary Sinusitis [id number] [address] [place] [address] (Primary Dx) [facility] [address] [place], [place] [phone] [id number] Social History Tobacco Use Types Packs/Day Years Used Date Smoking Tobacco: Every Day Cigarettes 1 Smokeless Tobacco: Never Alcohol Habits Answer Date [...] More than 4 times per year 11/09/2020 religion services? 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 Acute Sinusitis (Croatian)documented in this encounter Medications at Time of Discharge Medication Sig Dispensed Refills Start Date End Date ACETAMINOPHEN ORAL Take 500 mg by 0 06/04/2013 mouth every 6 (six) hours as needed. azithromycin (ZITHROMAX) 0 07/11/2017 08/07/2017 250 mg tablet ibuprofen Take 4 tablets by 0 04/22/2014 020 (for_ADVIL,MOTRIN) 200 mg mouth as needed. tablet ketorolac (for_TORADOL) 10 Take 1 tablet by 0 06/29/2019 mg tablet mouth 4 (four) times a day. topiramate (TOPAMAX) 50 mg Take 50 mg by mouth 0 02/04/2020 tablet daily. documented as of this encounter ED Notes Martin Lopez M.D. - 08/04/2017 2:47 AM CDT SUBJECTIVE CHIEF COMPLAINT/REASON FOR VISIT Cough (reports has dx of sinus infection with multiple abx used. is currently on zithromax and methylprednisone that she started on monday. this is her 5th abx. left ear also hurts. unable to control cough so she can sleep. ) HISTORY OF PRESENT ILLNESS acute on chronic sinusitis. Feels miserable. Using Afrin spray. Was recently prescribed Zithromax and a Medrol Dosepak. Sadly she continues to smoke. She also has a lot of posterior nasal drainage andwheezing. History of sinus surgeries 16 years ago. Adverse for reconsideration by Otolaryngology REVIEW OF SYSTEMS Constitutional: Positive for activity change, appetite change and fatigue. Negative for chills. HENT: Positive for congestion, dental problem, ear pain and mouth sores. Eyes: Negative. Respiratory: Negative. Cardiovascular: Negative. Gastrointestinal: Negative. Endocrine: Negative. Genitourinary: Negative. Musculoskeletal: Negative. Skin: Negative. Neurological: Negative. Hematological: Negative. Psychiatric/Behavioral: Negative. OBJECTIVE Initial Vitals [08/04/17 0209] Temperature Pulse Rate Heart Rate Resp Rate Blood Pressure SpO2 36.1 ??C 92 -- 22 122/82 96 % Pain Score -- PHYSICAL EXAMINATION Constitutional: She appears well-nourished. She appears distressed. HENT: Swollen nasal passages bilaterally to inspection. Greater on the left. Tympanic membranes well visualized and retracted right greater than left. Eyes: Pupils are equal, round, and reactive to light. Neck: Normal range of motion. Cardiovascular: Normal rate, regular rhythm and S1 normal. Pulmonary/Chest: Effort normal. Abdominal: Soft. Bowel sounds are normal. Musculoskeletal: Normal range of motion. Neurological: She is alert. She is disoriented. Skin: Skin is warm and dry. She is not diaphoretic. Psychiatric: She has a normal mood and affect. Vitals reviewed. ASSESSMENT/PLAN Impression and Plan Acute on chronic sinusitis. Treatment underway with antibiotics and oral methylprednisolone. Prescribed for her Robitussin with codeine cough syrup as well as Flonase local decongestant corticosteroid nasal spray. Suggested that she use saline nasal spray if she were to experience nasal dryness. Urged her to re-consult with Otolaryngology, as her symptoms dominate and leave her miserable.. Final Diagnoses: as of Aug 04 246 Acute Recurrent Maxillary Sinusitis Martin Lopez M.D. 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
--- OUTSIDE RECORDS SUMMARY | 2022-03-16 15:06 | XMS_ITS | Encounter Summary ---
:1980 Author Organization [facility] Address [address] [place] [address] Care Team Providers Name Role Phone Unavailable Primary Care Provider Unavailable Reason for Referral MRI/CAT/PET Scan (Routine) - Closed Specialty Diagnoses / Procedures Referred By Contact Refer red To Contact Radiology Diagnoses Sinusitis Alia Roberts, C.N.P. JENNIFER CUR[facility] [place] [facility] Procedures CT Sinuses without IV Contrast [place] [facility] [place] [facility] [address] [place], [place] [address] Referral ID Status Reason Start Date Expiration Date Visits Requ ested Visits Authorized [id number] Closed 07/31/2017 01/27/2018 1 1 Reason for Visit MRI/CAT/PET Scan (Routine) - Closed Specialty Diagnoses / Procedures Referred By Contact Refer red To Contact Radiology Diagnoses Sinusitis Alia Roberts, C.N.P. JENNIFER CURRAN [place] [facility] Procedures CT Sinuses without IV Contrast [place] [facility] [place] [facility] [place] [facility] [address] [place], [place] [address] Referral ID Status Reason Start Date Expiration Date Visits Requ ested Visits Authorized [id number] Closed 07/31/2017 01/27/2018 1 1 Encounter Details Date Type Department Care Team Description 07/31/2017 Hospital Encounter Department of Alia Roberts, [facility] [place] [facility] [address] [place] [id number] [phone] Social History Tobacco Use Types Packs/Day Years [...] More than 4 times per year 11/09/2020 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 Do you belong to any clubs or No 11/09/2020 organizations such as jainism groups, unions, fraternal or athletic groups, or [...] slept in a nursing home (including now)? Sex Assigned at Date [...] tablet mouth 4 (four) times a day. documented as of this encounter Plan of Treatment Not on filedocumented as of this encounter Procedures Procedure Name Priority Date/Time Associated Comments Diagnosis CT SINUSES RAD - Routine 07/31/2017 10:48 Sinusitis Results fo r this WITHOUT IV (most inpatients AM CDT procedure a re in CONTRAST and all the results outpatients) section. documented in this encounter Results CT Sinuses without IV Contrast (07/31/2017 10:48 AM CDT) Anatomical Region Laterality Modality Head, Neuroradiology RST LOS N/A Computed To mography Specimen (Source) Anatomical Collection Method Collection Time Re ceived Time Location / / Volume Laterality 07/31/2017 12:09 PM CDT Impressions 07/31/2017 12:21 PM CDT IMPRESSION: 1. ??Acute and chronic sinusitis as desc ribed. 2. ??Probable underlying sinus polypoid disease. 3. ??Inverted impacted tooth midline max illary alveolus. Narrative 07/31/2017 12:21 PM CDT EXAM: CT SINUSES WITHOUT IV CONTRAST COMPARISON: Head CT 01/16/2012 FINDINGS: Frontal sinuses: ??Frontal sinuses are n early completely opacified with mucosal thickening and frothy secretions. Ethmoid sinuses: ??Moderate mucosal thic kening bilateral ethmoid sinuses. Right maxillary sinus: ??Previous right antrostomy is widely open to the nasal cavity. ??Moderate to marked mucosal thi ckening and/or polypoid material nearly completely opacifying the right maxillar y sinus. Left maxillary sinus: ??Previous left an trostomy is widely open to the nasal cavity. ??Moderate to marked mucosal thi ckening and/or polypoid material nearly completely opacifying the left maxillary sinus. Sphenoid sinus: ??Frothy secretions and mucosal thickening right sphenoid sinus. Mild mucosal thickening left sphenoid si nus. Nasal septum: ??Essentially midline. Turbinates and nasal cavity: ??Middle tu rbinates are surgically absent. Otherwise unremarkable. Laminae papyracea and cribriform plate: Normal. Other findings: Visible orbits and intra cranial contents are unremarkable. Incidental note impacted tooth midline m axillary alveolus appears to be inverted. Procedure Note Aguilar Cruz M.D. - 07/31/2017Formatti ng of this note might be different from the original. EXAM: CT SINUSES WITHOUT IV CONTRAST COMPARISON: Head CT 01/16/2012 FINDINGS: Frontal sinuses: Frontal sinuses are parvin rly completely opacified with mucosal thickening and frothy secretions. Ethmoid sinuses: Moderate mucosal thicke italo bilateral ethmoid sinuses. Right maxillary sinus: Previous right an trostomy is widely open to the nasal cavity. Moderate to marked mucosal thick ening and/or polypoid material nearly completely opacifying the right maxillar y sinus. Left maxillary sinus: Previous left antr ostomy is widely open to the nasal cavity. Moderate to marked mucosal thick ening and/or polypoid material nearly completely opacifying the left maxillary sinus. Sphenoid sinus: Frothy secretions and mu cosal thickening right sphenoid sinus. Mild mucosal thickening left sphenoid si nus. Nasal septum: Essentially midline. Turbinates and nasal cavity: Middle turb inates are surgically absent. Otherwise unremarkable. Laminae papyracea and cribriform plate: Normal. Other findings: Visible orbits and intra cranial contents are unremarkable. Incidental note impacted tooth midline m axillary alveolus appears to be inverted. IMPRESSION: 1. Acute and chronic sinusitis as descri bed. 2. Probable underlying sinus polypoid di sease. 3. Inverted impacted tooth midline maxil chance alveolus. 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
--- OUTSIDE RECORDS SUMMARY | 2022-03-16 15:06 | XMS_ITS | Encounter Summary ---
:1980 Author Organization [facility] Address [address] [place] [address] Care Team Providers Name Role Phone Unavailable Primary Care Provider Unavailable Encounter Details Date Type Department Care Team Description 12/07/2014 Hospital Encounter HX [facility] ED Reginald Mendez M.D. [address] [place] [address] [phone] (Wo rk) Social History Tobacco Use Types Packs/Day Years Used Date Smoking Tobacco: Never Assessed Alcohol Habits Answer Date Recorded How often [...] on file documented as of this encounter Discharge Summaries Jovita De La Fuente R.N. - 12/07/2014 3:39 PM CDT ED Discharge Instructions [address] [address] Name: CARTER LEI Date of : 1980 12:00 AM Visit Date: 12/07/2014 12:30 PM [facility] Number: [id number] Address: [address] [place] [address] [phone] Primary Care Provider: PCP, BREANNASSDARIN - [place] IMPORTANT: [facility] in [place] would like to thank you for allowing us to assist you with your healthcare needs. The following includes patient education materials and informationregarding your injury/illness. Diagnosis: Migraine Headache (MEDRANO) Classic NOS Follow-Up Instructions: Your Upcoming Appointments: Date Time Location Provider No Appointments found Patient Education Materials: Migraine Headache: Stages and Treatment A migraine headache tends to progress in stages. Learning these stages can help you better understand what is happening. Then you can learn ways to reduce pain and relieve other symptoms. Methods for relieving your symptoms include self- care and medications. Migraine Stages Migraines tend to progress through 4 stages. Many people don't have all stages, and stages may differ with each headache: ?? Prodrome. A few hours to a day or so before the headache, you may feel tired, uneasy, or cormier. You may also feel bloated or crave certain foods. ?? Aura. Up to an hour before the headache starts, some migraine sufferers experience aura -- flashing lights, blind spots, other vision problems, confusion, difficulty speaking, or other neurologic symptoms. ?? Headache. Moderate to severe pain affects one side of the head and then can spread to both sides,often along with nausea. You may be highly sensitive to light, sound, and odors. Vomiting or diarrhea may also occur. This stage lasts 4 to 72 hours. ?? Postdrome. After your headache ends, you may feel tired, achy, and washed out. This may last for a day or so. Self-Care During a Migraine ?? Use a cold compress. Wrap a thin cloth around a cold pack, a cold can of soda, or a bag of frozenvegetables. Apply this to your adventist or other pain site. ?? Drink fluids. If nausea makes it hard to drink, try sucking on ice. ?? Rest. If possible, lie down. Try not to bend over, as this may increase your pain. ?? Try caffeine. Some people find that drinking fluids with caffeine, such as coffee or tea, helps to lessen migraine pain. Using Medications Work with your health care provider to find the right medications for you. Medications for migraine may relieve pain (analgesics), relieve nausea, or attack the migraine's root causes (migraine-specific medications). Rebound Headache Taking analgesics each day, or even several times a week, may lead to more frequentand severe headaches. These are called rebound headaches. If you think you're having rebound headaches, tell your health care provider. He or she can help you safely decrease your medication. ?? [id number] [facility], [address] [place] [address]. All rights reserved. This information is not intended as a substitute for professional medical care. Always follow your healthcare professional's instructions. Consider Using Patient Online Services Patient Online Services is a secure online and Mobile application that lets you: ?? View lab and test results ?? View portions of your medical record including clinical notes, immunizations and discharge summaries ?? Request an appointment or medication refill ?? Review your appointment schedule ?? Send secure messages to your care team Its easy to create an account if you dont have one. Go to [email or web address] and click on Create Your Account. Then, follow the directions to complete the online form. Youll be asked for your [facility] number which you can find at the top of this document. ED Tests and Procedures: Order Status Discharge Prescriptions & Home Medications: Medication/Strength Dose Route Frequency Indications/Special Instructions/Comments/Notes *ketorolac (ketorolac 10 mg oral tablet) 10 mg Oral four times a day as needed for Migraine headache(not to exceed 40 mg/day). NOT TO BE USED WITH OTHER NSAIDS etonogestrel (Implanon 68 mg subcutaneous implant) 68 mg Subcutaneous once ibuprofen (ibuprofen 200 mg oral tablet) 800 mg Oral as needed acetaminophen (Tylenol) 500 mg Oral every 6 hours as needed for Pain * You have let us know that you are not taking this medication as listed. Please talk with your primary care provider or the health care provider who prescribed the medication as soon as possible. Comment: Attention: If you have any medications at home not on this list, DO NOT take them until you contact your provider for clarification. Give a copy of your medication list to your primary care provider. Update your medication list any time medications or doses are changed and carry your medication list at all times in case of emergency. IMPORTANT: We examined and treated you today on an emergency basis only. This was not a substitute for, or an effort to provide, complete medical care. In most cases, you must let your doctor check youagain. Tell your doctor about any new or lasting problems. We cannot recognize and treat all injuries or illnesses in one Emergency Department visit. If you had special tests, such as EKG's or X- rays, we will review them again within 24 hours. We will call you if there are any new suggestions. Please follow the instructions above carefully. If you are being transferred to another facility your followup plan of care will be determined by the receiving facility. If you are a patient that is being discharged from the Emergency Department after receiving narcotics or other medications that may impair your judgment you may be a risk to yourself or others if you operate a motor vehicle. We recommend that you arrange a ride home with a responsible republican. RODRICK Ace GINA MARIE , or responsible republican have received this information and my questions have been answered. I have discussed any challenges I see with this plan with the nurse or physician. Patient Signature or Responsible Constitution Party/Relationship Date Time Provider Signature Date Time IMPORTANT: We examined and treated you today on an emergency basis only. This was not a substitute for, or an effort to provide, complete medical care. In most cases, you must let your doctor check youagain. Tell your doctor about any new or lasting problems. We cannot recognize and treat all injuries or illnesses in one Emergency Department visit. If you had special tests, such as EKG's or X- rays, we will review them again within 24 hours. We will call you if there are any new suggestions. Please follow the instructions above carefully. If you are being transferred to another facility your followup plan of care will be determined by the receiving facility. If you are a patient that is being discharged from the Emergency Department after receiving narcotics or other medications that may impair your judgment you may be a risk to yourself or others if you operate a motor vehicle. We recommend that you arrange a ride home with a responsible republican. I, RODRICK CARTER BUSH , or responsible republican have received this information and my questions have been answered. I have discussed any challenges I see with this plan with the nurse or physician. Patient Signature or Responsible Constitution Party/Relationship Date Time Provider Signature Date Time This document has images extracted. Please consider using [employer] for all your patient education needs. Source: [email or web address] POWERCHART Document Id: [id number] Jovita De La Fuente R.N. - 12/07/2014 3:39 PM CDT ED Depart Summary [facility] Emergency Department Clinical Discharge Summary PERSON INFORMATION Name CARTER LEI Age 34 Years 1980 12:00 AM Sex Female Language [place] Islander PCP PCP, UNASSIGNED - [place] Marital Status Single Visit Id Visit Reason Headache; migraine Specialty Enc Type Emergency Med Service Emergency Medicine Referred by [facility] [facility] ED Discharge 12/07/2014 2:22 PM Tracking Id [id number] Checkout 12/07/2014 2:22 PM Checkin 12/07/2014 12:30 PM Acuity 3 -Urgent Dispo Type * Discharged to Home or Self Care Arrival 12/07/2014 12:30 PM Reg Status LOS 000 01:52 Address: [address] [place] [address] [phone] Comment: PROVIDER INFORMATION Provider Role Provider Contact Time JOVITA DE LA FUENTE [employer] SALES REPRESENTATIVE Nurse 12/07/14 13:04 REGINALD MENDEZ MD ED Provider 12/07/14 13:22 DIAGNOSIS Migraine Headache (MEDRANO) Classic NOS Comment: PATIENT EDUCATION INFORMATION Instructions: Migraine Headache: Stages and Treatment Follow up: Source: Retellity Document Id: [id number] documented in this encounter Medications at Time of Discharge Medication Sig Dispensed Refills Start Date End Date ACETAMINOPHEN ORAL Take 500 mg by 0 06/04/2013 mouth every 6 (six) hours as needed. ibuprofen Take 4 tablets by 0 04/22/2014 020 (for_ADVIL,MOTRIN) 200 mg mouth as needed. tablet documented as of this encounter ED Notes Jovita De La Fuente RLashawnN. - 12/07/2014 3:39 PM CDT ED Disposition Summary ED Disposition Summary Entered On: 12/07/2014 15:39 CDT Performed On: 12/07/2014 15:39 CDT by JOVITA DE LA FUENTE [employer] SALES REPRESENTATIVE Disposition Summary Accompanied By : Significant other Mode of Discharge : Ambulatory Transportation : Private vehicle Printed Discharge Instructions Given to Patient : Yes Patient Status at Discharge from ED : Improved JOVITA DE LA FUENTE RN - 12/07/2014 15:39 CDT Source: [employer] Document Id: [id number] CDT!7 Jovita De La Fuente R.N. - 12/07/2014 2:15 PM CDT ED Pain Assessment ED Pain Assessment Entered On: 12/07/2014 14:15 CDT Performed On: 12/07/2014 14:15 CDT by JOVITA DE LA FUENTE RN Pain Assessment Pain Symptoms : Yes JOVITA DE LA FUENTE RN - 12/07/2014 14:15 CDT Pain Scale Pain Scale Verbal 0-10 : Open JOVITA DE LA FUENTE RN - 12/07/2014 14:15 CDT Pain Pain Assessment Grid Pain 1 Location : Head Intensity : 2 JOVITA DE LA FUENTE RN - 12/07/2014 14:15 CDT Source: [employer] Document Id: [id number]!10 Reginald Mendez M.D. - 12/07/2014 1:16 PM CDT Headache Patient: CARTER LEI Age: 34 years Sex: Female : 1980 Author: REGINALD MENDEZ MD Attachments: None Associated Diagnosis: Migraine Headache (MEDRANO) Classic NOS Basic Information Additional information: Chief Complaint from Nursing Triage Note : Chief Complaint Description 12/07/2014 13:04 CDT Chief Complaint Description Pt presents to ED c/o migraine which started at 0400 this morning. Has hx of migraine . History of Present Illness 34-year-old female presents to the emergency room complaining of a migraine headache. Her symptoms began 4 o'clock this morning. She has had many of these in the past but as they seem to be becoming more common has arranged for an appointment with a neurologist in a few days. She states that her current symptoms are very similar to her classic migraine symptoms. Specifically she denies any neurologicdeficits. She also admits to nausea. This is typical for her usual migraines. . Review of Systems Constitutional symptoms: Negative except as documented in HPI. Skin symptoms: Negative except as documented in HPI. Eye symptoms: Negative except as documented in HPI. ENMT symptoms: Negative except as documented in HPI. Respiratory symptoms: Negative except as documented in HPI. Cardiovascular symptoms: Negative except as documented in HPI. Gastrointestinal symptoms: Negative except as documented in HPI. Health Status Allergies: Allergic Reactions (Selected) Severity Not Documented Cipro- No reactions were documented. Nonallergic Reactions (Selected) Moderate Augmentin XR- Gi distress. Severity Not Documented Quinolone antibiotics- No reactions were documented. Silicone- No reactions were documented.. Past Medical/ Family/ Social History Medical history: Negative, Negative except for migraines. . Family history: Not significant. Physical Examination Vital Signs: Per nurse's notes. General: Alert and moderate distress. Skin: Warm and dry. Head: Normocephalic. Neck: Supple. Eye: Pupils are equal, round and reactive to light, extraocular movements are intact, normal conjunctiva and vision grossly normal. Ears, nose, mouth and throat: Oral mucosa moist. Cardiovascular: Regular rate and rhythm, No murmur, Normal peripheral perfusion and No edema. Respiratory: Lungs are clear to auscultation, respirations are non-labored, breath sounds are equal and Symmetrical chest wall expansion. Neurological: Alert and oriented to person, place, time, and situation, No focal neurological deficit observed, normal motor observed, normal speech observed and normal coordination observed. Psychiatric: Cooperative and normal judgment. Medical Decision Making OrdersLaunch Orders Pharmacy: Benadryl (Order Processing): 50 mg, PO, Once ketorolac (Order Processing): 60 mg, IM, Once Compazine (Order Processing): 5 mg, IM, Once. Impression and Plan Diagnosis Migraine Headache (MEDRANO) Classic NOS (Discharge, Emergency medicine, Medical) Plan Condition: Improved. Disposition: Discharged: Time 12/07/2014 14:18:00, to home. Patient was given the following educational materials: Migraine Headache: Stages and Treatment. Follow up with: Primary Care Physician, In: as needed. Counseled: Patient, Regarding diagnosis, Regarding diagnostic results, Regarding treatment plan, Regarding prescription, Patient indicated understanding of instructions. Orders: Launch Orders Patient Care: Discharge ED Patient (Order Processing): 12/07/2014 14:19 CDT, Once. Electronically Signed By: REGINALD MENDEZ MD On: 12/07/2014 02:20 PM Modified by and Electronically Signed by: REGINALD MENDEZ MD On: 12/07/2014 02:20 PM Source: [facility] [address] Document Id: {[id number]} Jovita De La Fuente R.N. - 12/07/2014 1:06 PM CDT ED Primary Assessment Document Has Been Updated ED Primary Assessment Entered On: 12/07/2014 13:07 CDT Performed On: 12/07/2014 13:06 CDT by JOVITA DE LA FUENTE RN Reason For Visit (As Of: 12/07/2014 13:07:28 CDT) Problems(Active) Acne vulgaris (ICD-9-CM :706.1 ) Name of Problem: Acne vulgaris ; Recorder: ALLEN BEDOYA RN; Confirmation: Confirmed ; Classification: Nursing ; Code: 706.1 ; Contributor System: Compring ; Last Updated: 12/17/2010 11:55 CDT ; Life Cycle Date: 12/17/2010 ; Life Cycle Status: Active ; Responsible Provider: ALLEN BEDOYA RN; Vocabulary: ICD-9-CM ; Comments: 12/17/2010 11:55 - ALLEN BEDOYA RN Date of onset unknown Allergic rhinitis, unspecified (ICD-9-CM :477.9 ) Name of Problem: Allergic rhinitis, unspecified ; Onset Date: 08/22/2011 ; Recorder: JANAY WAYNE RN, CNP; Confirmation: Confirmed ; Classification: Medical ; Code: 477.9 ; Last Updated: 08/22/2011 13:54 CDT ; Life Cycle Status: Active ; Responsible P rovider: JANAY WAYNE RN, CNP; Vocabulary: ICD-9-CM Anxiety State, Unspecified (ICD-9-CM :300.00 ) Name of Problem: Anxiety State, Unspecified ; Onset Date: 08/22/2011 ; Recorder: JANAY WAYNE RN, CNP; Confirmation: Confirmed ; Classification: Medical; Code: 300.00 ; Last Updated: 08/22/2011 13:53 CDT ; Life Cycle Status: Active ; Responsible Provider: JANAY WAYNE RN, CNP; Vocabulary: ICD-9-CM Migraine headache (ICD-9-CM :346.90 ) Name of Problem: Migraine headache ; Onset Date: 04/17/1989 ; Recorder: SANDRINE FULLER RN; Confirmation: Confirmed ; Classification: Medical ; Code: 346.90 ; Contributor System: Compring ; Last Updated: 04/12/2011 17:14 AUTOBODY TECHNICIAN ; Life Cycle Date: 06/10/2010 ; Life Cycle Status: Active ; Responsible Provider: SANDRINE FULLER RN; Vocabulary: ICD-9-CM ; Comments: 06/10/2010 16:12 - SANDRINE FULLER RN no known date of onset Migraine Headache (MEDRANO) NOS (ICD-9-CM :346.90 ) Name of Problem: Migraine Headache (MEDRANO) NOS ; Recorder: GUANAKITO JOHNSON RN; Confirmation: Confirmed ; Classification: Nursing ; Code: 346.90 ; Contributor System: Compring ; Last Updated: 11/05/2014 21:26 CDT ; Life Cycle Date: 11/05/2014 ; Life Cycle Status: Active ; Responsible Provider: GUANAKITO JOHNSON RN; Vocabulary: ICD-9-CM Thoracic or Lumbosacral Neuritis or Radiculitis, Unspecified (ICD-9-CM :724.4 ) Name of Problem: Thoracic or Lumbosacral Neuritis or Radiculitis, Unspecified ; Onset Date: 11/29/2007 ; Confirmation: Confirmed ; Classification: UPDATE NEEDED ; Code: 724.4 ; Contributor System: [facility]_HX_PR_UPLOAD ; Last Updated: 07/13/2013 18:13 CDT ; Life Cycle Status: Active ; Vocabulary: ICD-9-CM ; Comments: - Lumbarradiculopathy Tobacco Use Disorder (ICD-9-CM :305.1 ) Name of Problem: Tobacco Use Disorder ; Onset Date: 08/22/2011 ; Recorder: JANAY WAYNE RN, LANIE; Confirmation: Confirmed ; Classification: Medical ; Code: 305.1 ; Last Updated: 08/22/2011 13:54 CDT ; Life Cycle Status: Active ; Responsible Provider: JANAY WAYNE RN, TOWER OBSERVER; Vocabulary: ICD-9-CM Diagnoses(Active) Headache Date: 12/07/2014 ; Diagnosis Type: Reason For Visit ; Confirmation: Complaint of ; ClinicalDx: Headache ; Classification: Medical ; Clinical Service: Emergency medicine ; Code: PNED ; Probability: 0 ; Diagnosis Code: [id number] Triage Mode of Arrival ED : Private vehicle Track : Medical Languages : [place] Islander Treatments Prior to Arrival : None Are you ? : No Is Patient Female and 13-50 no hysterectomy : Yes Status : Patient denies BRITNEYJOVITA ALFONZO - 12/07/2014 13:06 CDT Pain Assessment Pain Symptoms : Yes JOVITA DE LA FUENTE RN - 12/07/2014 13:06 CDT Respiratory Airway : Patent Respirations : Unlabored Respiratory Pattern : Regular BECKA DE LA FUENTEE Dakotah MEJÍA - 12/07/2014 13:06 CDT Cardiovascular Heart Rhythm : Regular Skin Color : Normal for ethnicity Skin Description : Dry Skin Temperature : JOVITA Lundberg RN - 12/07/2014 13:06 CDT Neurological Last Well Time Known : Not applicable Level of Consciousness : Alert Orientation : Oriented x 3 Characteristics of Speech : Appropriate for age JOVITA DE LA FUENTE RN - 12/07/2014 13:06 CDT ED Psychosocial Affect/Behavior : Calm, Cooperative, Appropriate Domestic Abuse Concerns : None Behavioral Health Screen/Safety Assmt : No JOVITA DE LA FUENTE RN - 12/07/2014 13:06 CDT Gastrointestinal Nutrition ED : Adequate JOVITA DE LA FUENTE RN - 12/07/2014 13:06 CDT Musculoskeletal Fall Prevention Education Provided : JOVITA TOLEDO RN - 12/07/2014 13:06 CDT Social Habits Tobacco Use/Currently Using : Yes Exposure to Tobacco Smoke : Patient smokes Smoking Status : Current every day smoker JOVITA DE LA FUENTE RN - 12/07/2014 13:06 CDT Tobacco Use Grid Type : Cigarettes Cigarette Use Packs/Day : 0.5 JOVITA DE LA FUENTE RN - 12/07/2014 13:06 CDT Alcohol Use Grid Alcohol Use : No No JOVITA DE LA FUENTE RN - 12/07/2014 13:06 CDT JOVITA DE LA FUENTE RN - 12/07/2014 13:06 CDT Recreational Drug Use Grid Drug Use : None JOVITA DE LA FUENTE RN - 12/07/2014 13:06 CDT Source: [facility] POWERCHART Document Id: [id number] CDT!49 Jovita De La Fuente RLashawnN. - 12/07/2014 1:04 PM CDT ED Triage Assessment Document Has Been Updated ED Triage Assessment Entered On: 12/07/2014 13:06 CDT Performed On: 12/07/2014 13:04 CDT by JOVITA DE LA FUENTE RN Reason For Visit (As Of: 12/07/2014 13:06:34 CDT) Problems(Active) Acne vulgaris (ICD-9-CM :706.1 ) Name of Problem: Acne vulgaris ; Recorder: ALLEN BEDOYA RN; Confirmation: Confirmed ; Classification: Nursing ; Code: 706.1 ; Contributor System: PowerChart ; Last Updated: 12/17/2010 11:55 CDT ; Life Cycle Date: 12/17/2010 ; Life Cycle Status: Active ; Responsible Provider: ALLEN BEDOYA RN; Vocabulary: ICD-9-CM ; Comments: 12/17/2010 11:55 - ALLEN BEDOYA RN Date of onset unknown Allergic rhinitis, unspecified (ICD-9-CM :477.9 ) Name of Problem: Allergic rhinitis, unspecified ; Onset Date: 08/22/2011 ; Recorder: JANAY WAYNE RN, CNP; Confirmation: Confirmed ; Classification: Medical ; Code: 477.9 ; Last Updated: 08/22/2011 13:54 CDT ; Life Cycle Status: Active ; Responsible P rovider: JANAY WAYNE RN TOWER OBSERVER; Vocabulary: ICD-9-CM Anxiety State, Unspecified (ICD-9-CM :300.00 ) Name of Problem: Anxiety State, Unspecified ; Onset Date: 08/22/2011 ; Recorder: JANAY WAYNE RN, LANIE; Confirmation: Confirmed ; Classification: Medical; Code: 300.00 ; Last Updated: 08/22/2011 13:53 CDT ; Life Cycle Status: Active ; Responsible Provider: JANAY WAYNE RN, CNP; Vocabulary: ICD-9-CM Migraine headache (ICD-9-CM :346.90 ) Name of Problem: Migraine headache ; Onset Date: 04/17/1989 ; Recorder: SANDRINE FULLER RN; Confirmation: Confirmed ; Classification: Medical ; Code: 346.90 ; Contributor System: PowerChart ; Last Updated: 04/12/2011 17:14 AUTOBODY TECHNICIAN ; Life Cycle Date: 06/10/2010 ; Life Cycle Status: Active ; Responsible Provider: SANRDINE FULLER RN; Vocabulary: ICD-9-CM ; Comments: 06/10/2010 16:12 - SANDRINE FULLER RN no known date of onset Migraine Headache (MEDRANO) NOS (ICD-9-CM :346.90 ) Name of Problem: Migraine Headache (MEDRANO) NOS ; Recorder: GUANAKITO JOHNSON RN; Confirmation: Confirmed ; Classification: Nursing ; Code: 346.90 ; Contributor System: Compring ; Last Updated: 11/05/2014 21:26 CDT ; Life Cycle Date: 11/05/2014 ; Life Cycle Status: Active ; Responsible Provider: GUANAKITO JOHNSON RN; Vocabulary: ICD-9-CM Thoracic or Lumbosacral Neuritis or Radiculitis, Unspecified (ICD-9-CM :724.4 ) Name of Problem: Thoracic or Lumbosacral Neuritis or Radiculitis, Unspecified ; Onset Date: 11/29/2007 ; Confirmation: Confirmed ; Classification: UPDATE NEEDED ; Code: 724.4 ; Contributor System: [facility]_H[facility]_PR_UPLOAD ; Last Updated: 07/13/2013 18:13 CDT ; Life Cycle Status: Active ; Vocabulary: ICD-9-CM ; Comments: - Lumbarradiculopathy Tobacco Use Disorder (ICD-9-CM :305.1 ) Name of Problem: Tobacco Use Disorder ; Onset Date: 08/22/2011 ; Recorder: JANAY WAYNE RN, TOWER OBSERVER; Confirmation: Confirmed ; Classification: Medical ; Code: 305.1 ; Last Updated: 08/22/2011 13:54 CDT ; Life Cycle Status: Active ; Responsible Provider: JANAY WAYNE RN, TOWER OBSERVER; Vocabulary: ICD-9-CM Diagnoses(Active) Headache Date: 12/07/2014 ; Diagnosis Type: Reason For Visit ; Confirmation: Complaint of ; ClinicalDx: Headache ; Classification: Medical ; Clinical Service: Emergency medicine ; Code: PNED ; Probability: 0 ; Diagnosis Code: [id number] Triage Chief Complaint Description : Pt presents to ED c/o migraine which started at 0400 this morning. Hashx of migraine Information Given By : Patient Accompanied By : Other: Pt was dropped off by fijackson Mode of Arrival ED : Private vehicle Track : Medical Languages : [place] Treatments Prior to Arrival : None Are you ? : No Is Patient Female and 13-50 no hysterectomy : Yes Status : Patient denies JOVITA DE LA FUENTE RN - 12/07/2014 13:04 CDT Pain Assessment Pain Symptoms : Yes JOVITA DE LA FUENTE RN - 12/07/2014 13:04 CDT Pain Scale Pain Scale Verbal 0-10 : Open JOVITA DE LA FUENTE ALFONZO - 12/07/2014 13:04 CDT Pain Pain Assessment Grid Pain 1 Location : Head Intensity : 8 JOVITA DE LA FUENTE ALFONZO - 12/07/2014 13:04 CDT ED Physician Notification Time ED Physician Notification Time : 12/07/2014 13:06 CDT JOVITA DE LA FUENTE ALFONZO - 12/07/2014 13:04 CDT MORALES DCP GENERIC CODE Tracking Acuity : 3 -Urgent Tracking Group : [facility] ED JOVITA DE LA FUENTE RN - 12/07/2014 13:04 CDT Allergy (As Of: 12/07/2014 13:06:34 CDT) Allergies (Active) Augmentin XR Estimated Onset Date: Unspecified ; Reactions: GI distress ; Created By: MYRNA EDMONDS MD; Reaction Status: Active ; Category: Drug ; Substance: Augmentin XR ; Type: Intolerance ; Severity: Moderate ; Updated By: MYRNA EDMONDS MD; Source: Patient ; Reviewed Date: 12/07/2014 13:06 CDT Cipro Estimated Onset Date: Unspecified ; Created By: YASMANY CAVANAUGH RN; Reaction Status: Active ; Category: Drug ; Substance: Cipro ; Type: Allergy ; Updated By: YASMANY CAVANAUGH RN; Reviewed Date: 12/07/2014 13:06 CDT quinolone antibiotics Comments: Comment 1: QUINOLONES - Cipro; vomiting ; Created By: Contributor_system, [facility]; Reaction Status: Active ; Category: Drug ; Substance: quinolone antibiotics ;Type: Unknown ; Updated By: Contributor_system [facility]; Reviewed Date: 12/07/2014 13:06 CDT Silicone Estimated Onset Date: Unspecified ; Created By: JENNIFER FRANCIS RN; Reaction Status: Active ; Category: Drug ; Substance: Silicone ; Type: Sensitivity ; Updated By: JENNIFER FRANCIS RN; Reviewed Date: 12/07/2014 13:06 CDT ID Screen Drug Resistant Organism : No JOVITA DE LA FUENTE RN - 12/07/2014 13:04 CDT Source: [employer] Document Id: [id number] CDT!29 documented in this encounter Miscellaneous Notes Miscellaneous - Jovita De La Fuente RLashawnN. - 12/07/2014 3:39 PM CDT Valuables/Belongings Valuables/Belongings Entered On: 12/07/2014 15:39 CDT Performed On: 12/07/2014 15:39 CDT by JOVITA DE LA FUENTE RN Valuables/Belongings Home Medication Disposition : None brought in with patient JOVITA DE LA FUENTE RN - 12/07/2014 15:39 CDT Source: [employer] Document Id: [id number] CDT!3 Miscellaneous - Conversion, Historical Provider Ser - 12/07/2014 2:22 PM CDT Coding Summary-Paper Based CODING DATE: 12/11/2014 FINAL [facility] STATUS: * Discharged to Home or Self Care PAYOR: Medicaid ADMIT DX: 346.90 Migraine, Unspecified, without Mention of Intractable Migraine, without Mention of Status Migrainosus REASON FOR VISIT DX: 787.02 Nausea Alone FINAL DX: PRINCIPAL: 346.90 Migraine, Unspecified, without Mention of Intractable Migraine, without Mention of Status Migrainosus SECONDARY: 305.1 Tobacco Use Disorder PROCEDURES DOCTOR NAME DATE NOTE: The code number assigned matches the documented diagnosis and / or procedure in the patient's chart. However, the narrative phrase printed from the coding software may appear abbreviated, or result in slightly different terminology. Coded By: JENNIFER VILLALPANDO Date Saved: 12/11/2014 03:04 pm Source: [employer] Document Id: [id number] Miscellaneous - Jovita De La Fuente RLashawnN. - 12/07/2014 12:30 PM CDT Facility Charge Ticket 2.0 11.0 DX Facility Charge Ticket 2.0 11.0 DX Entered On: 12/07/2014 15:39 CDT Performed On: 12/07/2014 12:30 CDT by JOVITA DE LA FUENTE RN Facility Charge Ticket 2.0 11.0 DX ED Other Charges : Standard ED Encounter TVL Level Translated RTF : Headache TVL:4 TVL Level for Facility Charge Ticket : Level 4 Arrival Mode Calc : 1 Mode of Arrival ED : Private vehicle [facility] Mode of Arrival Interpreted : Standard [facility] Process Management : None [facility] Order Management : None 30 Minutes Critical Care : No Nursing Notes RTF : Triage Forms ED Triage Assessment,12/07/14 13:04,JOVITA DE LA FUENTE RN Nursing Notes ED Primary Assessment,12/07/14 13:06,JOVITA DE LA FUENTE RN ED Pain Assessment,12/07/14 14:15,JOVITA DE LA FUENTE RN [facility] Nursing Assessment : Triage and 1-2 nursing assessments [facility] Disposition : Discharge Disposition RTF : discharge [facility] Total Points with Diagnosis Control : 7 [facility] Visit Level : 11457 Level 3 Treatments Prior to Arrival : None JOVITA DE LA FUENTE RN - 12/07/2014 15:39 CDT [facility] Id: [id number] CDT!18 documented in this encounter Plan of Treatment Not on filedocumented as of this encounter Visit Diagnoses Not on filedocumented in this encounter Additional Health Concerns Assessment Noted Time PHQ-9 Depression Total Score: 1 06/13/2014 1:45 PM 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
--- OUTSIDE RECORDS SUMMARY | 2022-03-16 15:06 | XMS_ITS | Encounter Summary ---
:1980 Author Organization [facility] Address [address] [place] [address] Care Team Providers Name Role Phone Unavailable Primary Care Provider Unavailable Encounter Details Date Type Department Care Team Description 07/05/2016 Hospital Encounter HX [facility] ENDOSCOPY Supa Dacosta M.D. [address] [place] [address] (Wo rk) Social History Tobacco Use Types Packs/Day Years Used Date Smoking Tobacco: Every Day Alcohol Habits Answer Date Recorded How often [...] slept in a care home (including now)? Sex Assigned at Date Recorded Not on file documented as of this encounter Last Filed Vital Signs Vital Sign Reading Time Taken Comments Blood Pressure 100/67 07/05/2016 11:00 AM CDT Pulse - - Temperature - - Respiratory Rate - - Oxygen Saturation - - Inhaled Oxygen Concentration - - Weight - - Height 158 cm (5' 2.21) 07/05/2016 8:36 AM CDT Body Mass Index - - documented [...] a day. documented as of this encounter Progress Notes Conversion, Historical Provider Ser - 07/05/2016 8:36 AM CDT NOTE [facility] - Thelma Patient Name: Dulce Lei PRE-PROCEDURE HISTORY AND PHYSICAL Procedure(s): Colonoscopy (07/05/2016 8:36:07 AM) Exam Date: 07/05/2016 Exam Date: 07/05/2016 Doctor: Markus Dacosta Patient Name: Dulce Lei : 1980 Gender: Female HEALTH HISTORY User:[id number] Health History Obtainable:YES Chief Complaint (Purpose for visit):rectal bleeding History / Details of Present Illness: History & Physical Date (MM/DD/YY) / Provider:07/05/2016 Deckhand Shrimp Boat needed:NO Cardiovascular?:NO Ambulatory Infusion Pump:NO Implanted Home Economics Teacher:NO Pulmonary?:NO GI?:NO Diabetes?:NO Genitourinary/Renal/Endocrine?:NO Neuro/musculoskeletal?:YES Neuro/musculoskeletal diagnoses:Migraines Comments: Cancer:NO Mental Health?:NO Miscellaneous?:NO status:Denies Last menstrual period:on mirena Test: Recent illness, infection or exposure?:NO Infectious Disease?: Nutritional status?: Previous surgery?:YES GI surgery: General surgery:Tonsillectomy Transplant: Comments: Patient or family history of problems with anesthesia and sedation (Please set Alert):YES Comments:nausea Tobacco history?:YES Tobacco use status:Current someday smoker Alcohol history?:NO Recreational drug use?:NO Patient has a POA?:NO Anticoagulant:NO Entire health history obtained from:Patient, EMR / Patient Chart PHYSICAL EXAM User:[id number] Educational material given:YES Comment:verbal NPO:YES NPO time:Liquid > 2 Hours Baseline Pain:Scale 0-10 Baseline pain level:8 Pain location (if applicable):MEDRANO Pain type (if applicable):Acute Pain quality (if applicable):Throbbing Onset: Baseline behavior:Anxious Abdominal exam:Soft, non-distended Dental Information: Height (cm): Weight (kg): Heart exam:RRR without murmurs Lung exam:CTA Bilaterally Medications and Allergies reviewed and updated as necessary:YES IMPRESSION and PLAN Medications and Health history reviewed. This patient has been examined by me today and has been found to be a suitable candidate for planned procedure:07/05/2016 09:46 Consent signed:YES SEDATION ASSESSMENT Mallampati class:I ASA score:II - mild systemic disease Sedation plan:Sedation by RN Provider Signatures Markus Dacosta ([id number]) ESIGNED - 07/05/2016 09:47:06 [facility]: [id number] documented in this encounter Procedure Notes Markus Dacosta M.D. - 07/05/2016 8:36 AM CDT Colonoscopy [facility] - [facility] GI Procedure Date: 07/05/2016 8:36 AM Patient Name: Dulce Lei Age: 36 Date of : 1980 Gender: Female Procedure: Colonoscopy Providers: Markus Dacosta Pre-op Diagnoses: Rectal bleeding for 2 weeks Post-op Diagnoses: - Non-bleeding internal hemorrhoids. - Diverticulosis in the sigmoid colon, in the descending colon and at the hepatic flexure. - The examination was otherwise normal. - No specimens collected. Recommendation: - Would consider fiber capsules and/or stool softeners as needed to soften stool until hemorrhoids are healed. Findings: Non-bleeding internal hemorrhoids were found during retroflexion. The hemorrhoids were Grade II (internal hemorrhoids that prolapse but reduce spontaneously). A few medium-mouthed diverticula were found in the sigmoid colon, descending colon and hepatic flexure. The exam was otherwise without abnormality. Medicines: Fentanyl IV 100 mcgs, Midazolam IV 8 mgs, Zofran IV 4 mgs, Fentanyl IV 100 mcgs, Midazolam IV 8 mgs, Zofran IV 4 mgs Complications: No immediate complications. Estimated blood loss: None. Procedure Details: Pre-Anesthesia Assessment: - Sedation was administered by an endoscopy nurse. The sedation level attained was moderate. The patient was seen, evaluated, and history reviewed. Airway and heart and lung exams were performed and were satisfactory for planned sedation care. The risks, benefits and alternatives for the procedure and sedation were discussed and informed consent was obtained. A procedural pause was conducted in the presence of assisting personnel to verify the correct patient identity and procedure to be performed. Throughout the procedure, the patient's blood pressure, pulse, and oxygen saturations were monitored continuously. The [id number] Colonoscope Serial Number [id number] was introduced under direct vision through the anus and advanced to the terminal ileum. The colonoscopy was performed without difficulty. The patient tolerated the procedure fairly well. The quality of the bowel preparation was excellent. Markus Dacosta, 07/05/2016 10:25:36 AM This report has been signed electronically. Number of Addenda: 0 Note Initiated On: 07/05/2016 8:36 AM Source: [facility] Document Id: [id number] documented in this encounter Nursing Notes Anjali Vences R.N. - 07/05/2016 8:47 AM CDT Hendrich II Fall Risk Hendrich II Fall Risk Entered On: 07/05/2016 8:47 CDT Performed On: 07/05/2016 8:47 CDT by ANJALI VENCES RN Nash II Fall Risk Confusion/Disorientation Hendrich : No Depression Fall Risk Hendrich : No Altered Elimination Fall Risk Hendrich : No Dizziness/Vertigo Fall Risk Hendrich : No Gender, Male Fall Risk Hendrich : No Prescribed Antiepileptics Hendrich : No Prescribed Benzodiazepines Hendrich : No Rising From Chair Fall Risk Hendrich : Able to rise in a single movement, no loss of balance with steps Fall Risk Score Hendrich II : 0 ANJALI VENCES RN - 07/05/2016 8:47 CDT Source: [facility] [employer] Document Id: [id number] CDT!11 documented in this encounter OR Notes Op Note - Conversion, Historical Provider Ser - 07/05/2016 8:36 AM CDT NURSE NOTE [facility] - Case Roa Patient Name: Dulce Lei NURSE NOTE Procedure(s): Colonoscopy (07/05/2016 8:36:07 AM) Exam Date: 07/05/2016 Exam Date: 07/05/2016 Doctor: Markus Dacosta Patient Name: Dulce Lei : 1980 Gender: Female ENDO CHECK IN Transportation after procedure?:YES Solid Waste Analyst location: Solid Waste Analyst's name: Solid Waste Analyst's realtion to the patient?:Family Solid Waste Analyst's Phone Number: Pager Number: Tracking ID: HEALTH HISTORY User:[id number] Health History Obtainable:YES Chief Complaint (Purpose for visit):rectal bleeding History / Details of Present Illness: History & Physical Date (MM/DD/YY) / Provider:07/05/2016 Deckhand Shrimp Boat needed:NO Cardiovascular?:NO Ambulatory Infusion Pump:NO Implanted Home Economics Teacher:NO Pulmonary?:NO GI?:NO Diabetes?:NO Genitourinary/Renal/Endocrine?:NO Neuro/musculoskeletal?:YES Neuro/musculoskeletal diagnoses:Migraines Comments: Cancer:NO Mental Health?:NO Miscellaneous?:NO status:Denies Last menstrual period:on mirena Test: Recent illness, infection or exposure?:NO Infectious Disease?: Nutritional status?: Previous surgery?:YES GI surgery: General surgery:Tonsillectomy Transplant: Comments: Patient or family history of problems with anesthesia and sedation (Please set Alert):YES Comments:nausea Tobacco history?:YES Tobacco use status:Current someday smoker Alcohol history?:NO Recreational drug use?:NO Patient has a POA?:NO Anticoagulant:NO Entire health history obtained from:Patient, EMR / Patient Chart PATIENT ASSESSMENT PRE-PROCEDURE User:[id number] Patient ID and Procedure verified:YES Prep taken:YES Percent of prep taken (%):75 Comments: Prep Details:YES Prep type: Stool appearance:Clear NPO:YES NPO time:Liquid > 2 Hours Does the patient have any advance directives:NO Advance directive information: Allergy band on:YES Caution band on:N/A Fall Risk?:NO Baseline Pain:Scale 0-10 Baseline pain level:8 Pain location (if applicable):MEDRANO Pain type (if applicable):Acute Pain quality (if applicable):Throbbing Onset: Baseline behavior:Anxious Baseline orientation:Person, Place, Time, Situation Barrier to care:NO Skin assessment:Warm Respitory assessment:Clear Signs of abuse / neglect:NO Patient clothing and valuables removed?:N/A Need for prophylactic antibiotics?:NO Height (cm): Weight (kg): Who was assessed and educated:Patient Education and discharge material reviewed. Patient verbalized understanding: How does patient / family prefer to learn:Discussing, Reading Barriers to learning:None Educational material given:YES Comment:verbal Intake Delay:NO PROCEDURE BEGIN User:[id number] Patient clothing and valuables removed?:N/A Abdominal exam:Soft, non-distended IV site patent?:YES Patient position (Skin integrity maintained, Approved by physician):Left Lateral Adjuncts used: Procedure room delay:NO RECOVERY QUESTIONS User:[id number] Recovery by Endo Required:YES Patient positively identified. Transferred by and report received from:DG to EDWIN Siderails up, wheels locked, bed in lowest position, call toure in reach:YES Recovery Pain:Scale 0 - 10 Recovery pain level:0 Recovery Pain location (if applicable): Pain type (if applicable): Pain quality (if applicable): Skin assessment:Warm, Dry, Vale Abdominal exam:Soft, non-distended IV site patent?:YES DISCHARGE QUESTIONS User:[id number] Discharge Assessment:YES Level of Consciousness:Person, Place, Time, Situation Final Discharge Pain:Scale 0 - 10 Discharge pain level:0 Pain location (if applicable): Pain type (if applicable): Pain quality (if applicable): Oxygen saturation on room air >=92% or equal to pre-sedation state?:YES Discharge Assessment:YES Able to take PO fluids?:N/A Swallow, cough, gag reflexes present?:N/A Final abdominal exam:Soft, non-distended Passing flatus?:YES Crepitus:N/A Discharge Delay:NO Educational Material Provided:YES Name:General Post Endoscopy Instructions Comments: All care plan goals met:YES Discharged to:Home Patient meets discharge criteria as set by physician and approved by facility?:YES Able to ambulate independently (or at baseline)?:YES Transportation after procedure?:YES Solid Waste Analyst location: Solid Waste Analyst's name: Solid Waste Analyst's realtion to the patient?:Family Solid Waste Analyst's Phone Number: Pager Number: Tracking ID: Discharge instructions?:YES Discharge instructions given to:Patient, Family member Verbalizes understanding of discharge instructions?:YES Patient clothing and valuables returned?:YES Patient items removed: Patient clothing and valuables: Comments: Patient items returned to:Patient Discharged under the care of:Family member Discharged via:rubber washer PLAN CARE PLAN INITIATED - APPLIES TO ALL ADMITTED PATIENTS DIAGNOSIS Potential for anxiety, barriers to learning, and communication barriers related to knowledge deficit of procedure OUTCOME Patient and family demonstrate decreased anxiety & understanding of teaching OUTCOME Able to communicate effectively with patient and family OUTCOME: Verbalized support of emotional, cultural, and spiritual needs: OUTCOME Patient will verbalize understanding of procedure and expected physiological and psychological responses OUTCOME Patient will acknowledge and demonstrate the ability with effective coping mechanisms to manage anxiety / fear OUTCOME Patient will exhibit reduced physiological manifestations of anxiety / fear DIAGNOSIS Potential for injury related to procedure, medication administration, physical positioning, skin integrity, electrical and/or radiation therapies OUTCOME Patient was free from injury from procedure, medication administration, positioning, extraneous objects, physical and electrical hazards OUTCOME Patient experiences minimal trauma from endoscope OUTCOME Patient remains stable while sedated DIAGNOSIS Potential for alteration in comfort related to procedure - pain or discomfort OUTCOME The patient will experience minimal discomfort related to procedure controlled by administration of moderate sedation and comfort measures OUTCOME The patient will experience minimal discomfort during his/her stay and with his/her procedure DIAGNOSIS Potential for alteration in cardiac and respiratory function due to sedation or anesthesia OUTCOME Patient maintained cardio-pulmonary status according to patient norm (baseline) OUTCOME Patient will maintain a clear airway with adequate gas exchange OUTCOME Patient's cardiovascular status will be maintained OUTCOME Patient's airway remains clear and unobstructed Oxygen Time Method Rate Entered By Notes 09:41:57 Oxygen 2 liters/min [id number] No Notes Taken Medications Time Medication Dose Entered By Notes 10:03:18 Midazolam IV 2 mg Total: 8 mg [id number] 09:57:36 Midazolam IV 2 mg [id number] 09:49:35 Fentanyl IV 100 mcg Total: 100 mcg [id number] 09:48:05 Midazolam IV 4 mg [id number] 09:06:22 Zofran IV 4 mg Total: 4 mg [id number] No Notes Taken Madeline Score Time Motor Resp BP LOC O2 Entered By Total Score Notes 11:21:36 2 2 2 2 2 [id number] 10 10:50:00 2 2 2 1 2 [id number] 9 10:22:04 2 2 2 1 2 [id number] 9 10:14:41 2 2 2 1 2 [id number] 9 10:12:05 2 2 2 1 1 [id number] 8 10:05:00 2 2 2 1 1 [id number] 8 10:00:00 2 2 2 1 1 A370075 8 09:55:00 2 2 2 1 1 [id number] 8 09:51:22 2 2 2 1 1 [id number] 8 09:41:54 2 2 2 2 2 [id number] 10 09:04:20 2 2 2 2 2 G863956 10 No Notes Taken Vitals Time BP HR RESP O2 Sat CO2 Entered By 09:04:36 145/72 102 18 97 - [id number] No Notes Taken PROCEDURE LOG Time Data Entered By 11:21:57 IV discontinued : IV site assessment : Dry, intact,-, Catheter Intact : YES, Comments : - [id number] 11:21:55 IV Fluids Infused (mL) : 1000 G406022 10:10:06 Notes: diverticuli noted [id number] 09:43:46 PAUSE: Immediately prior to the administration of sedation/anesthetic, a quick look was performed to assess the vital signs and oxygen saturation : YES [id number] 09:43:35 TIME-OUT / [place] Protocol : ALL members of the procedural team verify CORRECT PATIENT, PROCEDURE, CONSENT, [id number], DOCUMENTATION SYSTEMS, SAFETY PRECAUTIONS, EQUIPMENT CHECKED AND AVAILABLE, INSTRUMENTATION, SUPPLIES, SPECIAL REQUIREMENTS : YES, Staff members performing Time-Out : Physician,Sedation RN,Cotton Dispatcher,-, Additional verification : - [id number] 09:41:41 Cardiac rhythm : Normal Sinus Rhythm [id number] 09:04:02 IV started : Attempts : 1, IV site : Right hand,-, Size : 20 gauge, Comments : - [id number] Time Tracking Time Event Entered By 11:22:36 Discharged [id number] 10:20:00 Bedded (Recovery) [id number] 10:14:01 LOWER Scope Out [id number] 10:03:55 Extent Reached [id number] 09:54:29 LOWER Scope In [id number] 09:41:02 MD in Room [id number] 09:41:01 Patient Roomed [id number] 08:59:30 In-Take Complete [id number] IV Fuild Time Type Amount Infused Entered By 09:04:15 Lactated Ringers IV 1000 ml Total: 1000 ml [id number] No Notes Entered Provider Signatures Angelica Elliott, ([id number]) [facility] - 07/05/2016 10:17:05 Janel Tyler RN ([id number]) [facility] - 07/05/2016 11:22:46 Anjali Vences ([id number]) [facility] - 07/05/2016 09:06:35 [facility] Document [id number] NOTE0 documented in this encounter Miscellaneous Notes Miscellaneous - Conversion, Historical Provider Ser - 07/05/2016 11:22 AM CDT Coding Summary-Paper Based CODING DATE: 07/08/2016 FINAL [facility] STATUS: * Discharged to Home or Self Care PAYOR: Medicaid APC DESCRIPTION 5311 Level 1 Lower GI Procedures ADMIT DX: REASON FOR VISIT DX: FINAL DX: PRINCIPAL: K62.5 Hemorrhage of anus and rectum SECONDARY: K64.1 Second degree hemorrhoids K57.30 Diverticulosis of large intestine without perforation or abscess without bleeding F41.9 Anxiety disorder, unspecified Z72.0 Tobacco use PYMT PROC APC STAT DESCRIPTION DOCTOR NAME DATE 18161 COLONOSCOPY FLX DX MARKUS DACOSTA MD 07/05/2016 W/CALLI SPEC WHEN PFRMD NOTE: The code number assigned matches the documented diagnosis and / or procedure in the patient's chart. However, the narrative phrase printed from the coding software may appear abbreviated, or result in slightly different terminology. 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
--- OUTSIDE RECORDS SUMMARY | 2022-03-16 15:06 | XMS_ITS | Encounter Summary ---
:1980 Author Organization [facility] Address [address] [place] [address] Care Team Providers Name Role Phone Unavailable Primary Care Provider Unavailable Encounter Details Date Type Department Care Team Description 11/03/2015 Hospital Encounter HX [facility] Krista Adames, APR N, C.N.P. [address] [place], [place] [phone] (Wo rk) Social History Tobacco [...] More than 4 times per year 11/09/2020 amish services? Do you belong to any clubs [...] Reading Time Taken Comments Blood Pressure 110/72 11/03/2015 1:25 PM CDT Pulse - - Temperature - - Respiratory Rate - - Oxygen Saturation - - Inhaled Oxygen Concentration - - Weight 83.6 kg (184 lb 4.9 oz) 11/03/2015 1:25 PM CDT Height 158 cm (5' 2.21) 11/03/2015 1:25 PM CDT Body Mass Index 33.49 11/03/2015 1:25 PM CDT documented in this encounter Medications at Time of Discharge Medication Sig Dispensed Refills Start Date End Date ACETAMINOPHEN ORAL Take 500 mg by 0 06/04/2013 mouth every 6 (six) hours as needed. ibuprofen Take 4 tablets by 0 04/22/2014 020 (for_ADVIL,MOTRIN) 200 mg mouth as needed. tablet documented as of this encounter Progress Notes Krista Roman C.N.P., R.N. - 11/03/2015 1:57 PM CDT Pt presents today for Mirena IUD insertion. Patient is , has history of SAB and ectopic . Does have a history of abnormal pap smears including cold knife cone. Last pap at [facility] in April of which was normal. She would like Mirena IUD for contraception and for cycle control Had Nexplanon in place, removed 2 months ago and was placed on Nuvaring, stopped 2 days ago and nowhas menses. Menses are irregular and heavy, sometimes has intermenstrual bleeding. No history of STI, current sexual partner 4 years, no dyspareunia, no unusual vaginal discharge. BLOOD PRESSURE Systolic Blood Pressure: 110 Diastolic Blood Pressure: 72 MEASUREMENTS Height: 158 Actual Weight: 83.6 Body Mass Index: 33.49 Problem list: Allergic rhinitis, unspecified Anxiety State, Unspecified Tobacco Use Disorder Thoracic or Lumbosacral Neuritis or Radiculitis, Unspecified Migraine headache Acne vulgaris Migraine Headache (MEDRANO) NOS A: irreg menses recommended EMB today along with Mirena IUD insertion: patient is agreeable to plan PROCEDURE: Endometrial biopsy INFORMED CONSENT Discussed risks, goals, and alternatives of the planned procedure. Discussed advance directives, andthe necessity of other members of the healthcare team participating in the procedure with the patient (or legal quality control representative and others present during the discussion). The patient understands and wishes to proceed with the procedure. A procedural pause was conducted to verify correct patient identity, procedure to be performed, correct site, correct patient position, availability of implants, and need for special equipment or special requirements. PREPROCEDURAL PREP: The patient was determined not by a test. Result= negative The patient was given pretreatment with libuprofen PROCEDURE: The patient was placed in dorsal lithotomy position. Cervix cleansed with Betadine. Cervix visualized and stabilized with tenaculum. The uterine sound was introduced and sounded to 7 cm. Endometrial aspirator or pipelle was introduced into cervix and uterus while I watched and verified the depth suggested by the sounded depth. Multiple sweeps of the endometrial lining were made. Specimen placed in formalin for pathology. The Mirena was verified to be in a horizontal position. I then placed the Mirena into the introducer tube with the arms fully enclosed. I then was able to place the Mirena into theuterus 1.5 cm from the uterine fundus and deployed to the 1st trigger line allowing the lateral horiz ontal arms to be activated. Then I seated the Mirena into the uterine fundus with gentle pressure. Then I deployed the trigger fully, releasing the IUD from the introducer tube. The introducer unit wasremoved. The strings were clipped approximately 2 cm from the cervix. The string clippings were taken to the patient for her to verify what she needs to feel for. Everything seemed to be tolerated well. The patient did well. She had less than 10 mL blood loss. IMPRESSION/REPORT/PLAN Mirena IUD placement. [facility] # [id number] PLAN 1.Ibuprofen as needed for pain, which should be mild and self-limited. 2.She is asked to promptly report any pelvic infections. 3.The patient is cautioned to avoid actions that could expose her to sexually transmitted diseases. 4.One month of alternative contraception for . I have quoted a 99% control efficacy based on the available literature. can occur in a small minority of cases. When this rare event occurs, it can be ectopic in location. In the event of any product dislocation and fall out, the patient should bring in the product to this office if at all possible. 5.Back to see us in 4-8 weeks' time for verification of IUD still in place. Removal time is in 5 years from the date of this procedure. Patient is aware of all of this information. All of her questionswere answered, and her safety was assured to the best of my abilities. Vital signs and abdominal exam stable at the end of the procedure. Aftercare discussed. Reasons to seek assistance/return visit were discussed with the patient including but not limited to: Hemorrhage, increasing pain, and fever. FOLLOW UP: We will follow up by phone call with EMB results Electronically Signed By: KRISTA ROMAN CNP, RN On: 11/03/2015 03:44 PM Modified by and Electronically Signed by: KRISTA ROMAN CNP, RN On: 11/03/2015 03:44 PM Source: [facility] Qlue Document Id: [id number] documented in this encounter Miscellaneous Notes Miscellaneous - Roxanne Guillen L.PJennifer. - 11/05/2015 4:59 PM CDT Normal Results Letter November 05, 2015 CARTER MENSAH [address] [place] [id number] Dear CARTER MENSAH, I am pleased to report on behalf of Krista Roman, that your results from your recent biopsy are normal. Please follow up with us as we discussed during your visit or sooner if you have any concerns. If you have questions or concerns, please do not hesitate to call our office. Sincerely, ROXANNE GUILLEN Electronic Signature Electronically Signed By: ROXANNE GUILLEN L.P.N. On: November 05, 2015 This document has images extracted. Source: [facility] Qlue Document Id: [id number] Miscellaneous - Vineet Romero R.N. - 11/05/2015 4:41 PM CDT Results Notification Document Contains Addenda Addendum by ROXANNE GUILLEN L.P.N. on November 05, 2015 16:59:29 CDT letter sent. From: VINEET ROMERO FINANCE MANAGER To: SATHISH Obstetrics/Gynecology Nurse (ESTABLISHMENT GUIDE/MEAT SOAKER); Sent: 11/05/2015 16:41:13 CDT ! Show up: 11/05/2015 16:41:13 CDT Subject: Results Notification Actions: Notify patient of results Reminder Comments: please notify patient of normal endometrial biopsy results for Krista. thank you Results: Date Result Type Result Name 11/05/2015 10:34 Document - DOC Surgical Pathology Source: [facility] POWERCHART Document Id: [id number] Electronically signed by Conversion, [facility] Aerodynamics Teacher [id number] at 09/11/2016 12:15 PM CDT Miscellaneous - Yanira Romero L.PBessy - 11/03/2015 1:25 PM CDT Adult System Trainer Intake/History Adult System Trainer Intake/History Entered On: 11/03/2015 13:29 CDT Performed On: 11/03/2015 13:25 CDT by YANIRA ROMERO LPN Intake Chief Complaint : Chanelle, is experiencing her period. LMP Date : 11/02/2015 Systolic Blood Pressure : 110 mmHg Diastolic Blood Pressure : 72 mmHg NIBP Mean : 85 mmHg BP Location : Left upper extremity Blood Pressure Cuff Size : Regular Height : 158 cm(Converted to: 5 ft 2 inch(es), 62 inch(es)) Actual Weight : 83.6 kg(Converted to: 184 lb 5 oz) Dosing Weight Clinic : 83.6 kg Clinic BSA : 1.92 Body Mass Index : 33.49 kg/m2 YANIRA ROMERO LPN - 11/03/2015 13:25 CDT General Info Languages : Israeli Is Patient Female and 13-50 no hysterectomy : Yes Status : Patient denies Are you ? : No YANIRA ROMERO LPN - 11/03/2015 13:25 CDT Subjective Pain Symptoms : No YANIRA ROMERO LPN - 11/03/2015 13:25 CDT Dependent Habits Exposure to Tobacco Smoke : Patient smokes Smoking Status : Current every day smoker Tobacco 2A : Yes Tobacco Use/Currently Using : Yes Tobacco Use/Last 30 Days : Yes Tobacco Use/Last 12 months : Yes Type : Cigarettes: Less than 20 per day Tobacco Use/Advised to Quit : Yes Alcohol Use : Yes YANIRA ROMERO [facility] - 11/03/2015 13:25 CDT Caffeine Use Grid Caffeine Use : Current Type : Coffee, Soft drinks Frequency : Occasionally YANIRA ROMERO LPN - 11/03/2015 13:25 CDT Recreational Drug Use Grid Drug Use : None YANIRA ROMERO LPN - 11/03/2015 13:25 CDT Exercise Vitals Days/Wk of Moderate or Greater Exercise : 7 Minutes/Day Engaged in Activity : 30 Total Minutes Exercise/Week : 210 YANIRA ROMERO LPN 11/03/2015 13:25 CDT Sexuality Sexually Active : Yes Sexual Partners : Monogamous Self Breast Exam : No YANIRA ROMERO LPN - 11/03/2015 13:25 CDT Source: [employer] Document Id: [id number] CDT!47 Miscellaneous - Yanira Romero L.P.NLashawn - 11/03/2015 1:23 PM CDT Health Assessment Health Assessment Entered On: 11/03/2015 13:25 CDT Performed On: 11/03/2015 13:23 CDT by YANIRA ROMERO LPN Health Assessment Complete Health Assessment Complete or Modified : Annual Health Assessment Annual Health Assessment Completed : Yes YANIRA ROMERO LPN - 11/03/2015 13:23 CDT Nutrition Nutrition Risk Factors by History Adult : None YANIRA ROMERO LPN - 11/03/2015 13:23 CDT Functional Current Daily Living Assistance : None YANIRA ROMERO LPN - 11/03/2015 13:23 CDT Dependent Habits Exposure to Tobacco Smoke : Patient smokes Smoking Status : Current every day smoker Tobacco 2A : Yes Tobacco Use/Currently Using : Yes Tobacco Use/Last 30 Days : Yes Tobacco Use/Last 12 months : Yes Type : Cigarettes: Less than 20 per day Tobacco Use/Advised to Quit : Yes YANIRA ROMERO [facility] 11/03/2015 13:23 CDT Caffeine Use Grid Caffeine Use : Current Type : Coffee, Soft drinks Frequency : Occasionally YANIRA ROMERO [facility] 11/03/2015 13:23 CDT Alcohol Use : Yes YANIRA ROMERO [facility] 11/03/2015 13:23 CDT Recreational Drug Use Grid Drug Use : None YANIRA ROMERO [facility] 11/03/2015 13:23 CDT AUDIT Tool How Often Do You Have A Drink : 2 to 4 times a month How Many Drinks in a Day When Drinking : 1 or 2 Six or More Drinks On One Occassion : Never Audit Phase 1 Score : 2 YANIRA ROMERO [facility] 11/03/2015 13:23 CDT Psychosocial Domestic Abuse Concerns : None Behavioral Health Screen/Safety Assmt : Unable to obtain Episcopalian Preference : No qualifying data available. YANIRA ROMERO [facility] 11/03/2015 13:23 CDT Advance Directive Advanced Directives : No Advance Directive Additional Information : No YANIRA ROMERO [facility] 11/03/2015 13:23 CDT Educ Needs Learning Style Preference Adult Grid Patient : None Family : None YANIRA ROMERO [facility] 11/03/2015 13:23 CDT [facility] POWERCHART Document Id: [id number] CDT!42 documented in this encounter Plan of Treatment Not on filedocumented as of this encounter Procedures Procedure Name Priority Date/Time Associated Diagnosis Comme nts SURGICAL PATHOLOGY Routine 11/03/2015 3:17 PM Res ults for this CDT procedure are i n the results section. TEST, U Routine 11/03/2015 1:50 PM Resu lts for this CDT procedure are i n the results section. documented in this encounter Results Pathology Surgical Pathology (11/03/2015 3:17 PM CDT) Specimen (Source) Anatomical Collection Method Collection Time Re ceived Time Location / / Volume Laterality 11/03/2015 3:17 PM CDT Narrative [facility] - 11/05/19 16 10:34 AM CDT Pat: CARTER MENSAH ?? ([id number]) Age/Sex: 35 ??F ??Loc: ? -00 (RWN ) CoPath ??CONCHA: 11/03/15 15:17 ??REC: 11:35 ??PHYS: , Surgical Pathology ?Endometrial biopsy Patient Name: CARTER MENSAH MR#: [id number] Submitting Physician: KRISTA ROMAN NP [id number] Specimen #[id number] Performing Lab: ??[place] [address] Source: Endometrial biopsy Clinical History/Pre-Op Surveillance contraceptive NOS Gross Description Received in a container labeled EMB is a 2.0 x 1.5 x 0.3 cm aggregate of newby-brown irregular soft tissue fragment s. ??The entire specimen is submitted in one cassette. KS/ed Diagnosis Endometrium, biopsy: INACTIVE ENDOMETRIUM WITH STROMAL PSEUDO DECIDUALIZATION, CONSISTENT WITH EXOGENOUS HORMONE EFFECT. Electronically Signed By [place] Shirley, ??M.D. - 11/05/2015 ed/11/05/2015 Krista Roman APRN, C.N.P. LAB SURG PATH ORDERABLES Performing Organization Address City/State/ZIP Code Phon e Number [facility] Test, Qualitative, Urine (11/03/2015 1:50 PM CDT) Patholo gist Method Time Signature HXBeta-hCG Negative Negative POWERCHART Qualitative Urine Specimen (Source) Anatomical Collection Method Collection Time Re ceived Time Location / / Volume Laterality Urine 11/03/2015 1:50 PM CDT Krista Roman APRN, C.N.P. LAB URINE ORDERABLES Performing Organization Address City/[facility] Phon e Number POWERCHART documented in this encounter Visit Diagnoses Not on filedocumented in this encounter Additional Health Concerns Assessment Noted Time PHQ-9 Depression Total Score: 1 06/13/2014 1:45 PM AIR BOX TESTER documented as of this encounter
--- OUTSIDE RECORDS SUMMARY | 2022-03-16 15:06 | XMS_ITS | Encounter Summary ---
:1980 Author Organization [facility] Address [address] [place] [address] Care Team Providers Name Role Phone Unavailable Primary Care Provider Unavailable Encounter Details Date Type Department Care Team Description 03/23/2017 Hospital Encounter Department of Alia Roberts [facility] [place] [address] [place] [phone] Social History Tobacco Use Types Packs/Day Years [...] or slept in a retirement (including now)? Sex Assigned at Date Recorded [...] Name Priority Date/Time Associated Comments Diagnosis US LOWER RAD - Routine 03/23/2017 12:14 Swelling Leg Left Resul ts for this EXTREMITY VEINS (most inpatients PM OPERATING ROOM SPECIALIST procedur e are in LEFT and all the results outpatients) section. documented in this encounter Results US Lower Extremity Veins Left (03/23/2017 12:14 PM OPERATING ROOM SPECIALIST) Anatomical Region Laterality Modality Lower Extremity Left Ultrasound Specimen (Source) Anatomical Collection Method Collection Time Re ceived Time Location / / Volume Laterality 03/23/2017 12:19 PM OPERATING ROOM SPECIALIST Impressions 03/23/2017 12:20 PM OPERATING ROOM SPECIALIST IMPRESSION: Negative for Acute DVT. Narrative 03/23/2017 12:20 PM OPERATING ROOM SPECIALIST EXAM: US LOWER EXTREMITY VEINS LEFT COMPARISON: None FINDINGS: The common femoral, upper deep femoral, femoral, and popliteal veins are widely patent, without thrombus. The posterior tibial and peroneal veins were segmentally visualized and are norm al where seen. The great saphenous vein is patent and negative for thrombus. Con tralateral femoral vein patent with normal waveform. Procedure Note Aguilar Cruz M.D. - 03/23/2017Formatti ng of this note might be different from the original. EXAM: US LOWER EXTREMITY VEINS LEFT COMPARISON: None FINDINGS: The common femoral, upper deep femoral, femoral, and popliteal veins are widely patent, without thrombus. The posterior tibial and peroneal veins were segmentally visualized and are norm al where seen. The great saphenous vein is patent and negative for thrombus. Con tralateral femoral vein patent with normal waveform. IMPRESSION: Negative for Acute DVT. Alia MIGUEL US PROCEDURES documented in this encounter Visit Diagnoses Diagnosis Swelling Leg Left documented in this encounter Additional Health Concerns Assessment Noted Time PHQ-9 Depression Total Score: 1 06/13/2014 1:45 PM OPERATING ROOM SPECIALIST documented as of this encounter
--- OUTSIDE RECORDS SUMMARY | 2022-03-16 15:06 | XMS_ITS | Encounter Summary ---
:1980 Author Organization [facility] Address [address] [place] [address] Care Team Providers Name Role Phone Unavailable Primary Care Provider Unavailable Reason for Visit Reason Comments Med Refill Encounter Details Date Type Department Care Team Description 08/08/2017 Refill Department of Otorhinolaryngolog y Shahla Mejia RLashawnNLashawn Med Refill in [facility] [address] [facility] [address] [place] [phone] Social History Tobacco Use Types Packs/Day Years [...] this encounter Miscellaneous Notes Telephone Encounter - Shahla Mejia L.P.NLashawn - 08/08/2017 1:08 PM CDT Patient returned the phone call and informed her that both the budesonide and saline nasal rinse prescriptions are at [facility]. No further questions at this time. Telephone Encounter - Shahla Mejia L.P.N. - 08/08/2017 1:04 PM CDT Left generic message for the patient to call back to [facility] Nurse line #[phone]. Telephone Encounter - Shahla Mejia L.P.N. - 08/08/2017 12:03 PM CDT Patient called and stated that her budesonide was not at the pharmacy. Patient also requesting that she would like a prescription for saline nasal rinse, her insurance would than cover it. Contacted [facility] in [place]. Cleo at the pharmacy there stated that a prior auth was needed for the budesonide and the prior auth request was sent yesterday. Today, Cleo stated that the budesonide is covered through the patient's insurance. Please advise regarding a prescription for the saline nasal rinse. 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
--- OUTSIDE RECORDS SUMMARY | 2022-03-16 15:06 | XMS_ITS | Encounter Summary ---
:1980 Author Organization [facility] Address [address] [place] [address] Care Team Providers Name Role Phone Unavailable Primary Care Provider Unavailable Reason for Visit Reason Onset Date Comments Triage 08/22/2017 Request for RX and w ork note Encounter Details Date Type Department Care Team Description 08/22/2017 Clinical Department of Henrik Tomas (Reques t for Communication General Surgery in Lyn Blanton R.N. RX a nd work note) [place], [place] [address] [place] [phone] Social History Tobacco Use Types Packs/Day Years [...] or slept in a assisted (including now)? Sex Assigned at Date Recorded Not on file documented as of this encounter Miscellaneous Notes Telephone Encounter - Shahla Mejia L.P.N. - 08/22/2017 11:47 AM CDT Called and informed the patient. No further questions at this time. Telephone Encounter - Alyssa Sy P.A.-C., P.A. - 08/22/2017 11:35 AM CDT Work excuse written/signed (in my office out box). Script for cetirizine 10mg tabs sent to [facility]. Telephone Encounter - Shahla Mejia L.P.N. - 08/22/2017 11:12 AM CDT Please see below. Telephone Encounter - Lyn Tomas R.N. - 08/22/2017 9:40 AM CDT Dulce was seen by Alyssa yesterday and is wondering if she can get an Rx for an allergy medication - because she feels like her symptoms are worse when she is outside. She is also wondering if she can get a work note that would include having Monday08/25/2017 off - she said she is very tired and worn out. Dulce said she does have an appt. With her primary care provider on . 08/24/2017. She does use [facility] pharmacy in [place]. Her phone # to use is [phone]. documented in this encounter Plan of Treatment Not on filedocumented as of this encounter Visit Diagnoses Not on filedocumented in this encounter Additional Health Concerns Assessment Noted Time PHQ-9 Depression Total Score: 1 06/13/2014 1:45 PM OFFICE ASSISTANT RECEPTIONIST documented as of this encounter
--- OUTSIDE RECORDS SUMMARY | 2022-03-16 15:06 | XMS_ITS | Encounter Summary ---
:1980 Author Organization [facility] Address [address] [place] [address] Care Team Providers Name Role Phone Unavailable Primary Care Provider Unavailable Reason for Visit Reason Comments Communication Encounter Details Date Type Department Care Team Description 08/14/2017 Clinical Department of James Maradiaga Otorhinolaryngology in [place], [place] RN. [address] [facility] [address] [place] [phone] [facility] [phone] [place] [phone] Social History Tobacco Use Types Packs/Day Years [...] [place] [facility] [place] (including now)? Sex Assigned at Date Recorded Not on file documented as of this encounter Miscellaneous Notes Telephone Encounter - Shahla Mejia L.P.N. - 08/16/2017 2:26 PM CDT Prescription was faxed to the pharmacy Telephone Encounter - Janel Mclaughlin R.N. - 08/16/2017 2:24 PM CDT Pt informed of the additional medication that was faxed in to her pharmacy. She will complete that course as indicated and was also instructed to continue with her nasal rinse and spray. She plans on returning next week to her scheduled follow up appt with Alyssa. Telephone Encounter - Alyssa Sy P.A.-C., P.A. - 08/16/2017 12:54 PM CDT Ok. I sent in 5 more tabs to her pharmacy. She should take 2 tabs for 2 days, 1 tab for 1 day. Continue rinses and spray, very important. Telephone Encounter - Janel Mclaughlin R.N. - 08/16/2017 10:38 AM CDT Dulce called in after checking in with the pharmacy. She reports that they gave me enough pills to last the duration of the taper and that she needs to speak with us if there is a discrepancy. She is wondering how to proceed as she knows she followed the directions. Perhaps we need to send in anotherscript for the remainder? Please advise. Telephone Encounter - Alyssa Sy P.A.-C., P.A. - 08/14/2017 5:06 PM CDT Spoke with her over the phone this afternoon. Her nasal symptoms are significantly improved. She didnot receive enough oral steroids from the pharmacy to finish out her taper. I recommended that she return to the pharmacy to finish out the last 3 days, 2 tabs for 2 days and 1 tab for 1 day. She has no t been using the sinus rinses. I recommended that she do these twice daily with the additional budesonide. Return in 7-10 days for recheck. Telephone Encounter - Danisha Maradiaga C.M.A. - 08/14/2017 8:51 AM CDT Dulce called to say that she is feeling somewhat better but is not completely better. She is still having a lot of drainage and is still hoarse. She does have a little bit of the nasal spray that goes down her throat when she is using it and wonders if this could be causing some hoarseness. She also states that since last monday she has been having bright red blood in her stools on and off where the toilet water is completely red. She is seeing her PCP today but was wondering if this is caused from steroids. She has had this happen to her before with bouts of diverticulitis. Any prescriptions canbe sent to [facility] in [place]. 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
--- OUTSIDE RECORDS SUMMARY | 2022-03-16 15:06 | XMS_ITS | Encounter Summary ---
:1980 Author Organization [facility] Address [address] [place] [address] Care Team Providers Name Role Phone Unavailable Primary Care Provider Unavailable Encounter Details Date Type Department Care Team Description 11/18/2015 Hospital Encounter HX [facility] ED Faith Hi M .D. Social History Tobacco Use Types Packs/Day Years [...] Sign Reading Time Taken Comments Blood Pressure 112/78 11/18/2015 7:28 AM CDT Pulse 90 11/18/2015 7:28 AM CDT Temperature - - Respiratory Rate 18 11/18/2015 7:28 AM CDT Oxygen Saturation - - Inhaled Oxygen Concentration - - Weight 85.1 kg (187 lb 9.8 oz) 11/18/2015 7:28 AM CDT Height - - Body Mass Index 34.09 11/03/2015 1:25 PM CDT documented in this encounter Discharge Summaries Roxanne Márquez R.N. - 11/18/2015 8:23 AM CDT ED Discharge Instructions [address] [address] Name: CARTER LEI Date of : 1980 12:00 AM Visit Date: 11/18/2015 7:19 AM [facility] Number: [id number] Address: [address] [place] [phone] Primary Care Provider: VINEET ARCHULETA MD IMPORTANT: [facility] in [place] would like to thank you for allowing us to assist you with your healthcare needs. The following includes patient education materials and informationregarding your injury/illness. Diagnosis: Migraine Headache (MEDRANO) Common NOS Follow-Up Instructions: With: Address: When: VINEET ARCHULETA [address] [place] [id number] Business (1) Within As Needed Comments: Follow up as scheduled. Your Upcoming Appointments: Date Time Location Provider 12/05/2015 08:00 [facility] Neurology Raúl THOAMS, Jose Angel Blanton Patient Education Materials: Migraine Headache Migraine headaches are related to changes in blood flow to the brain. This causes throbbing or constant pain on one or both sides of the head. The pain may last from a few hours to several days. There is usually nausea, vomiting, sensitivity to light and sound, and blurred vision. A migraine attack may be triggered by emotional stress, hormone changes during the menstrual cycle, oral contraceptives, alcohol use, certain foods containing tyramine, eye strain, weather changes, missing meals, or too little or too much sleep. Home Care For This Headache: 1) If you were given pain medicine for this headache, do not drive yourself home . Arrange for a ride, instead. When you get home, try to sleep. You should feel much better when you wake up. 2) Migraine headaches may improve with an ice pack on the forehead or at the base of the skull. Heatto the back of your neck may relieve any neck spasm. 3) Drink only clear liquids or eat a very light diet to avoid nausea/vomiting until symptoms improve. Preventing Future Headaches: 1) Pay attention to those factors that seem to trigger your headache. Try to avoid them when you can. If you have frequent headaches, it is useful to keep a diary of what you were doing, feeling or eating in the hours before each attack. Show this to your doctor to help find the cause of your headaches. a) If you feel that stress is a factor in your headaches, look at the sources of stress in your life. Find ways to release the build-up of those stresses by using regular exercise, relaxation methods (yoga, meditation), bio-feedback or simply taking time-out for yourself. For more information about this, consult your doctor or go to a local bookstore and review books and tapes on this subject. b) Tyramine is a substance present in the following foods : chocolate, yogurt, all cheeses except cottage cheese and cream cheese. smoked or pickled fish and meat (including amezquita, caviar, bologna, pepperoni, salami), liver, avocados, bananas, figs, raisins, and red wine. Be aware that these foods may trigger a migraine in some persons. Try taking these foods out of your diet for 1-2 months to see if this reduces headache frequency. Treating Future Attacks: 1) At the first sign of a headache, take time out if possible. Find a quiet, dark, comfortable placeto sit or lie down. Let yourself relax or sleep. 2) An ice pack on the forehead or area of greatest pain may help. If you are having muscle spasm andtightness of the neck, a heating pad and massage to this area may be helpful. 3) If you have been prescribed a medicine to stop a migraine headache, use this at the very first warning sign of the headache (aura or initial pain) for best results. Follow Up with your doctor if the headache is not better within the next 24 hours. If you have frequent headaches you should discuss a treatment plan with your primary care doctor. Ask if you can have medicine to take at home the next time you get a bad headache. Poorly controlled chronic headaches may require a referral to a neurologist (headache specialist). Get Prompt Medical Attention if any of the following occur: ?? Your head pain gets worse, or does not improve within 24 hours ?? Repeated vomiting (cant keep liquids down) ?? Sinus or ear or throat pain (not already reported) ?? Fever of 100.4? F (38? C) or higher, or as directed by your healthcare provider ?? Stiff neck ?? Extreme drowsiness, confusion or fainting ?? Dizziness, vertigo (dizziness with spinning sensation) ?? Weakness of an arm or leg or one side of the face ?? Difficulty with speech or vision ?? [id number] [facility], [address] [place] [address], [place] [address]. All rights reserved. This information is not [...] if you dont have one. Go to [email or web address] and click on Create Your Account. Then, follow the directions to complete the online form. Youll be asked for your [facility] number which you can find at the top of this document. ED Tests and Procedures: Order Status Discharge Prescriptions & Home Medications: Medication/Strength Dose Route Frequency Indications/Special Instructions/Comments/Notes ondansetron (Zofran ODT 4 mg oral tablet, disintegrating) 4 mg Oral three times a day topiramate (Topamax 25 mg oral tablet) 25 mg Oral once a day levonorgestrel (Mirena 52 mg intrauteral device) 52 mg Intrauteral once [facility] [id number] [phone] [id number] ibuprofen (ibuprofen 200 mg oral tablet) 800 mg Oral as needed acetaminophen (Tylenol) 500 mg Oral every 6 hours as needed for Pain Comment: Attention: If you have any medications [...] nurse or physician. Patient Signature or Responsible Libertarian/Relationship Date Time Provider Signature Date Time IMPORTANT: [...] a ride home with a responsible republican. Db CARTER LEI , or responsible republican have received this information and my questions have been answered. I have discussed any challenges I see with this plan with the nurse or physician. Patient Signature or Responsible Libertarian/Relationship Date Time Provider Signature Date Time Source: [facility] POWERCHART Document Id: [id number] Roxanne Márquez R.N. - 11/18/2015 8:23 AM CDT ED Depart Summary [facility] Emergency Department Clinical Discharge Summary PERSON INFORMATION Name CARTER LEI Age 35 Years 1980 12:00 AM Sex Female Language Honduran PCP VINEET ARCHULETA MD Marital Status Single N [id number] Visit Id Visit Reason Headache - Recurrent; migraine Specialty Enc Type Emergency Med Service Emergency Medicine Referred by Track Group [facility] ED Discharge 11/18/2015 8:15 AM Tracking Id [id number] Checkout 11/18/2015 8:15 AM Checkin 11/18/2015 7:19 AM Acuity 5 -Non Urgent Dispo Type * Discharged to Home or Self Care Arrival 11/18/2015 7:19 AM Reg Status Complete LOS 000 00:56 Address: [address] [place] [phone] Comment: PROVIDER INFORMATION Provider Role Provider Contact Time ROXANNE MÁRQUEZ RN ED Nurse 11/18/15 07:23 FAITH HI MD ED Provider 11/18/15 07:48 DIAGNOSIS Migraine Headache (MEDRANO) Common NOS Comment: PATIENT EDUCATION INFORMATION Instructions: HEADACHE, Migraine (Classical) Follow up: With: Address: When: VINEET [address] [address] [employer] (7) Within As Needed Comments: Follow up as scheduled. Source: [facility] POWERCHART Document Id: [id number] documented in this encounter Medications at Time of Discharge Medication Sig Dispensed Refills Start Date End Date ACETAMINOPHEN ORAL Take 500 mg by 0 06/04/2013 mouth every 6 (six) hours as needed. ibuprofen Take 4 tablets by 0 04/22/2014 020 (for_ADVIL,MOTRIN) 200 mg mouth as needed. tablet documented as of this encounter Progress Notes Jose Angel Kitchen M.D. - 12/05/2015 12:00 AM CDT [id number] NEUROLOGY MISCELLANEOUS NOTE Ms. Lei failed to show up for her outpatient neurology appointment today. Jose Angel Kitchen M.D./mary ellen Electronically Signed By: JOSE ANGEL KITCHEN MD On: 12/07/2015 09:13 AM Source: [facility] MHSDOLBEYNONRADSYS Document Id: [id number] documented in this encounter ED Notes Roxanne Márquez R.N. - 11/18/2015 8:12 AM CDT ED Pain Assessment ED Pain Assessment Entered On: 11/18/2015 8:13 CDT Performed On: 11/18/2015 8:12 CDT by ROXANNE MÁRQUEZ RN Pain Assessment Pain Symptoms : Yes ROXANNE MÁRQUEZ RN - 11/18/2015 8:12 CDT Pain Scale Pain Scale Verbal 0-10 : Open ROXANNE MÁRQUEZ RN - 11/18/2015 8:12 CDT Pain Pain Assessment Grid Pain 1 Location : Head Intensity : 3 ROXANNE MÁRQUEZ RN - 11/18/2015 8:12 CDT Source: [employer] Document Id: [id number] CDT!10 Roxanne Márquez R.N. - 11/18/2015 8:00 AM CDT ED Disposition Summary ED Disposition Summary Entered On: 11/18/2015 8:00 CDT Performed On: 11/18/2015 8:00 CDT by ROXANNE MÁRQUEZ RN ED Disposition Summary Present in Room During Exam/Procedure : Alone Mode of Discharge : Ambulatory Transportation : Private vehicle Discharge From ED With : Home Med List Printed Discharge Instructions Given to Patient : Yes Patient Status at Discharge from ED : Improved ROXANNE MÁRQUEZ RN - 11/18/2015 8:00 CDT Source: [employer] Document Id: [id number] CDT!8 Faith Hi M.D. - 11/18/2015 7:48 AM CDT Headache - Recurrent Patient: CARTER LEI Age: 35 years Sex: Female : 1980 Author: FAITH HI MD Attachments: None Associated Diagnosis: Migraine Headache (MEDRANO) Common NOS Basic Information Time seen: Date & time 11/18/2015 07:35:00. History source: Patient. Arrival mode: Private vehicle. History limitation: None. Additional information: Chief Complaint from Nursing Triage Note : Chief Complaint Description 11/18/2015 7:32 CDT Chief Complaint Description see triage note 11/18/2015 7:28 CDT Chief Complaint Description 35 year old female admitted to ER with complaints ofmigraine states started last night. States she uses toradol po at home but currently is out of it. . History of Present Illness The patient presents with headache. The onset was Began yesterday evening.. The course/duration of symptoms is constant. Location: temporal. Radiating pain: none. The character of symptoms is pounding.The degree at onset was minimal. The degree at maximum was 8 /10. . The degree at present is 8 /10. There are exacerbating factors including light and noise. There are relieving factors including lightavoidance, noise avoidance, rest, lying down and medications(s). Risk factors consist of none. Priorepisodes: frequent. Therapy today: over the counter medications and She started Topamax 2 weeks and takes 25 mg daily.. Preceding symptoms: none. Associated symptoms: nausea, vomiting, photophobia and denies neck pain. She tried taking ibuprofen, but she vomited afterward. She says her headaches are improving since she started Topamax 2 weeks ago, but she's still taking her starting dose of 25 mg daily. Review of Systems Constitutional symptoms: Negative except as documented in HPI. Skin symptoms: Negative except as documented in HPI. Eye symptoms: Negative except as documented in HPI. ENMT symptoms: Negative except as documented in HPI. Respiratory symptoms: Negative except as documented in HPI. Cardiovascular symptoms: Negative except as documented in HPI. Gastrointestinal symptoms: Negative except as documented in HPI. Genitourinary symptoms: Negative except as documented in HPI. Musculoskeletal symptoms: Negative except as documented in HPI. Neurologic symptoms: Negative except as documented in HPI. Psychiatric symptoms: Negative except as documented in HPI. Endocrine symptoms: Negative except as documented in HPI. Hematologic/Lymphatic symptoms: Negative except as documented in HPI. Health Status Allergies: Allergic Reactions (Selected) Severity Not Documented Cipro- No reactions were documented. Nonallergic Reactions (Selected) Moderate Augmentin XR- Gi distress. Severity Not Documented Quinolone antibiotics- No reactions were documented. Silicone- No reactions were documented.. Medications: (Selected) Prescriptions Prescribed Mirena 52 mg intrauteral device: 52 mg, 1 each, Intrauteral, Once, [facility] [id number], 1 each, 0 Refill(s) Pending Complete nicotine 21 mg/24 hr transdermal film, extended release: 1 patch(es), Topical, Daily, 30 patch(es) Documented Medications Documented Topamax 25 mg oral tablet: 25 mg, 1 tab(s), PO, Daily Tylenol: 500 mg, PO, q6hr, PRN: Pain ibuprofen 200 mg oral tablet: 800 mg, 4 tab(s), PO, PRN. Past Medical/ Family/ Social History Medical history: Active Migraine headache (346.90): Onset on 04/17/1989 at 8 years. 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 Resolved. Comments: - Bladder pain Sinusitis (473.9): Onset on 05/19/2000 at 19 years. Resolved.. Surgical history: Dilation and curettage ([id number]) on 03/26/2013 at 32 Years. Endometrial sampling (biopsy) with or without endocervical sampling (biopsy), without cervical dilation, any method (separate procedure) ([id number]) on 12/09/2009 at 29 Years. ENT (ABSTRACTED) - 09/13/01 - Sinus surgery x 2 on 09/13/2001 at 21 Years. Tonsillectomy with adenoidectomy ([id number]) on 04/17/1994 at 13 Years. ENT (ABSTRACTED) - age 8 - tubes placed as child on 1982 at 8 Days.. Family history: Liver Mother Comments: 08/16/2010 09:57 - JENNIFER LIN LPN Liver failure Diabetes mellitus Mother Asthma Sister Hypertension Father MEDRANO - Headache Father . Social history: Tobacco use: Smokes .5 pack(s) per day. Problem list: All Problems Anxiety State, Unspecified / 300.00 / Confirmed Tobacco Use Disorder / 305.1 / Confirmed Migraine headache / 346.90 / Confirmed no known date of onset Migraine Headache (MEDRANO) NOS / 346.90 / Confirmed Allergic rhinitis, unspecified / 477.9 / Confirmed Acne vulgaris / 706.1 / Confirmed Date of onset unknown Thoracic or Lumbosacral Neuritis or Radiculitis, Unspecified / 724.4 / Confirmed Lumbar radiculopathy Resolved: Sinusitis / 473.9 Resolved: Other Symptoms Involving Urinary System / 788.99 Bladder pain Resolved: Abnormal Pap / 795.00 Canceled: Migraine with Aura, without Mention of Intractable Migraine, without Mention of Status Migrainosus / 346.00 Migraine with aura, without mention of intractable migraine without mention of status migrainosus Canceled: Other Symptoms Referable to Back / 724.8 Other symptoms referable to back Canceled: Examination or Test, Positive Result / V72.42. Physical Examination Vital Signs: Vital Signs 11/18/2015 7:28 CDT Temperature Core 35.7 DegC LOW Peripheral Pulse Rate 90 /min Respiratory Rate 18 /min SpO2 97 % Systolic Blood Pressure 112 mmHg Diastolic Blood Pressure 78 mmHg Mean Arterial Pressure 89 mmHg BP Location Left upper , Measurements 11/18/2015 7:28 CDT Dosing Weight 85.10 kg Actual Weight 85.1 kg Weight Source Standing scale . General: Alert and mild distress. Skin: Warm, dry and pink. Head: Normocephalic and atraumatic. Neck: Supple, trachea midline, no tenderness and no JVD. Eye: Pupils are equal, round and reactive to light, normal conjunctiva, vision grossly normal and Pupils 5 mm, equal, reactive.. Ears, nose, mouth and throat: Oral mucosa moist and no pharyngeal erythema or exudate. Cardiovascular: Regular rate and rhythm, No murmur, Normal peripheral perfusion and No edema. Respiratory: Lungs are clear to auscultation, respirations are non-labored, breath sounds are equal and Symmetrical chest wall expansion. Gastrointestinal: Soft, Nontender, Non distended and No organomegaly. Genitourinary: No CVA tenderness.. Musculoskeletal: Normal ROM. normal strength. no tenderness. no swelling. no deformity. Neurological: Alert and oriented to person, place, time, and situation, No focal neurological deficit observed, CN II-XII intact, normal motor observed, normal speech observed and normal coordination observed. Lymphatics: No lymphadenopathy. Psychiatric: Cooperative and appropriate mood & affect. Medical Decision Making Differential Diagnosis:Migraine, tension headache, dehydration. OrdersLaunch Orders Pharmacy: Zofran ODT (Order Processing): 4 mg, PO, Once Toradol (Order Processing): 60 mg, IM, Once. Reexamination/ Reevaluation 0810: She is feeling better after meds. Nausea has resolved, headache down to 3-4/10. Impression and Plan Diagnosis Migraine Headache (MEDRANO) Common NOS (Discharge, Emergency medicine, Medical) Plan Condition: Improved. Disposition: Discharged: to home. Prescriptions: Prescription Warning Analyst Pharmacy: Zofran ODT 4 mg oral tablet, disintegrating (Prescribe): 4 mg, 1 tab(s), PO, 3xDay, 30 tab(s), 0 Refill(s), I suggested she increase Topamax to 25 mg bid.. Patient was given the following educational materials: HEADACHE, Migraine (Classical), HEADACHE, Migraine (Classical). Follow up with: VINEET ARCHULETA Within As Needed Follow up as scheduled.. Counseled: Patient, Regarding diagnosis, Regarding treatment plan, Regarding prescription, Patient indicated understanding of instructions. Orders: Launch Orders Patient Care: Discharge ED Patient (Order Processing): 11/18/2015 8:12 CDT, Once. Electronically Signed By: FAITH HI MD On: 11/18/2015 08:14 AM [facility] Document Id: [id number]} Roxanne Márquez RLashawnNLashawn - 11/18/2015 7:32 AM CDT ED Primary Assessment Document Has Been Updated ED Primary Assessment Entered On: 11/18/2015 7:33 CDT Performed On: 11/18/2015 7:32 CDT by ROXANNE MÁRQUEZ RN Reason For Visit (As Of: 11/18/2015 07:33:52 CDT) Problems(Active) Acne vulgaris (ICD-9-CM :706.1 ) Name of Problem: Acne vulgaris ; Recorder: LALEN BEDOYA RN; Confirmation: Confirmed ; Classification: Nursing ; Code: 706.1 ; Contributor System: Captricity ; Last Updated: 12/17/2010 11:55 CDT ; Life Cycle Date: 12/17/2010 ; Life Cycle Status: Active ; Responsible Provider: ALLEN BEDOYA RN; Vocabulary: ICD-9-CM ; Comments: 12/17/2010 11:55 - ALLEN BEDOYA RN Date of onset unknown Allergic rhinitis, unspecified (ICD-9-CM :477.9 ) Name of Problem: Allergic rhinitis, unspecified ; Onset Date: 08/22/2011 ; Recorder: JANAY WAYNE CNP, DNP; Confirmation: Confirmed ; Classification:Medical ; Code: 477.9 ; Last Updated: 08/22/2011 13:54 CDT ; Life Cycle Status: Active ; ResponsibleProvider: JANAY WAYNE CNP, DNP; Vocabulary: ICD-9-CM Anxiety State, Unspecified (ICD-9-CM :300.00 ) Name of Problem: Anxiety State, Unspecified ; Onset Date: 08/22/2011 ; Recorder: JANAY WAYNE CNP, DNP; Confirmation: Confirmed ; Classification: Medical ; Code: 300.00 ; Last Updated: 08/22/2011 13:53 CDT ; Life Cycle Status: Active ; Responsible Provider: JANAY WAYNE CNP, DNP; Vocabulary: ICD-9-CM Migraine headache (ICD-9-CM :346.90 ) Name of Problem: Migraine headache ; Onset Date: 04/17/1989 ; Recorder: SANDRINE FULLER RN; Confirmation: Confirmed ; Classification: Medical ; Code: 346.90 ; Contributor System: Captricity ; Last Updated: 04/12/2011 17:14 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 ; Life Cycle Date: 06/10/2010 ; Life Cycle Status: Active ; Responsible Provider: SANDRINE FULLER RN; Vocabulary: ICD-9-CM ; Comments: 06/10/2010 16:12 - SANDRINE FULLER RN no known date of onset Migraine Headache (MEDRANO) NOS (ICD-9-CM :346.90 ) Name of Problem: Migraine Headache (MEDRANO) NOS ; Recorder: GUANAKITO JOHNSON RN; Confirmation: Confirmed ; Classification: Nursing ; Code: 346.90 ; Contributor System: Captricity ; Last Updated: 11/05/2014 21:26 CDT ; Life Cycle Date: 11/05/2014 ; Life Cycle Status: Active ; Responsible Provider: GUANAKITO JOHNSON RN; Vocabulary: ICD-9-CM Thoracic or Lumbosacral Neuritis or Radiculitis, Unspecified (ICD-9-CM :724.4 ) Name of Problem: Thoracic or Lumbosacral Neuritis or Radiculitis, Unspecified ; Onset Date: 11/29/2007 ; Confirmation: Confirmed ; Classification: UPDATE NEEDED ; Code: 724.4 ; Contributor System: [facility]_HX_PR_UPLOAD ; Last Updated: 07/13/2013 18:13 CDT ; Life Cycle Status: Active ; Vocabulary: ICD-9-CM ; Comments: - Lumbarradiculopathy Tobacco Use Disorder (ICD-9-CM :305.1 ) Name of Problem: Tobacco Use Disorder ; Onset Date: 08/22/2011 ; Recorder: JANAY WAYNE CNP, DNP; Confirmation: Confirmed ; Classification: Medical ; Code: 305.1 ; Last Updated: 08/22/2011 13:54 CDT ; Life Cycle Status: Active ; Responsible Provider: JANAY WAYNE CNP, DNP; Vocabulary: ICD-9-CM Diagnoses(Active) Headache - Recurrent Date: 11/18/2015 ; Diagnosis Type: Reason For Visit ; Confirmation: Complaint of ; Clinical Dx: Headache - Recurrent ; Classification: Medical ; Clinical Service: Emergency medicine ; Code: PNED ; Probability: 0 ; Diagnosis Code: [id number] Triage Chief Complaint Description : see triage note Mode of Arrival ED : Private vehicle Track : Medical Languages : Honduran Treatments Prior to Arrival : None Are you ? : No Is Patient Female and 13-50 no hysterectomy : Yes Status : Patient denies ROXANNE MÁRQUEZ RN - 11/18/2015 7:32 CDT Pain Assessment Pain Symptoms : Yes ROXANNE MÁRQUEZ RN - 11/18/2015 7:32 CDT Respiratory Airway : Patent Respirations : Unlabored Respiratory Pattern : Regular ROXANNE MÁRQUEZ RN - 11/18/2015 7:32 CDT Cardiovascular Heart Rhythm : Regular Skin Color : Normal for ethnicity Skin Description : Dry Skin Temperature : Warm ROXANNE MÁRQUEZ RN - 11/18/2015 7:32 CDT Neurological Last Well Time Known : Not applicable Level of Consciousness : Alert Orientation : Oriented x 3 Characteristics of Speech : Appropriate for age Neuro Patient Stated Symptoms : Other: light bothers her AFSHAN, ROXANNE A RN - 11/18/2015 7:32 CDT ED Psychosocial Affect/Behavior : Calm Domestic Abuse Concerns : None Behavioral Health Screen/Safety Assmt : No ROXANNE MÁRQUEZ RN - 11/18/2015 7:32 CDT Gastrointestinal Nutrition ED : Adequate ROXANNE MÁRQUEZ RN - 11/18/2015 7:32 CDT Musculoskeletal Fall Prevention Education Provided : NA ROXANNE MÁRQUEZ RN - 11/18/2015 7:32 CDT Social Habits Exposure to Tobacco Smoke : Patient smokes Smoking Status : Current every day smoker Tobacco 2A : Yes Tobacco Use/Currently Using : Yes Tobacco Use/Last 30 Days : Yes Tobacco Use/Last 12 months : Yes Type : Cigarettes: Less than 20 per day Tobacco Use/Advised to Quit : Yes ROXANNE MÁRQUEZ RN - 11/18/2015 7:32 CDT Alcohol Use Grid Alcohol Use : No No ROXANNE MÁRQUEZ RN - 11/18/2015 7:32 CDT ROXANNE MÁRQUEZ RN - 11/18/2015 7:32 CDT Recreational Drug Use Grid Drug Use : None ROXANNE MÁRQUEZ RN - 11/18/2015 7:32 CDT Source: [facility] Quick Key Document Id: [id number] CDT!52 Roxanne Márquez R.N. - 11/18/2015 7:28 AM CDT ED Triage Assessment Document Has Been Updated ED Triage Assessment Entered On: 11/18/2015 7:32 CDT Performed On: 11/18/2015 7:28 CDT by ROXANNE MÁRQUEZ RN Reason For Visit (As Of: 11/18/2015 07:32:22 CDT) Problems(Active) Acne vulgaris (ICD-9-CM :706.1 ) Name of Problem: Acne vulgaris ; Recorder: ALLEN BEDOYA RN; Confirmation: Confirmed ; Classification: Nursing ; Code: 706.1 ; Contributor System: StarMobileChart ; Last Updated: 12/17/2010 11:55 CDT ; Life Cycle Date: 12/17/2010 ; Life Cycle Status: Active ; Responsible Provider: ALLEN BEDOYA RN; Vocabulary: ICD-9-CM ; Comments: 12/17/2010 11:55 - ALLEN BEDOYA RN Date of onset unknown Allergic rhinitis, unspecified (ICD-9-CM :477.9 ) Name of Problem: Allergic rhinitis, unspecified ; Onset Date: 08/22/2011 ; Recorder: JANAY WAYNE CNP, DNP; Confirmation: Confirmed ; Classification:Medical ; Code: 477.9 ; Last Updated: 08/22/2011 13:54 CDT ; Life Cycle Status: Active ; ResponsibleProvider: JANAY WAYNE CNP, DNP; Vocabulary: ICD-9-CM Anxiety State, Unspecified (ICD-9-CM :300.00 ) Name of Problem: Anxiety State, Unspecified ; Onset Date: 08/22/2011 ; Recorder: JANAY WAYNE CNP, DNP; Confirmation: Confirmed ; Classification: Medical ; Code: 300.00 ; Last Updated: 08/22/2011 13:53 CDT ; Life Cycle Status: Active ; Responsible Provider: JANAY WAYNE CNP, DNP; Vocabulary: ICD-9-CM Migraine headache (ICD-9-CM :346.90 ) Name of Problem: Migraine headache ; Onset Date: 04/17/1989 ; Recorder: SANDRINE FULLER RN; Confirmation: Confirmed ; Classification: Medical ; Code: 346.90 ; Contributor System: [employer] ; Last Updated: 04/12/2011 17:14 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 ; Life Cycle Date: 06/10/2010 ; Life Cycle Status: Active ; Responsible Provider: SANDRINE FULLER RN; Vocabulary: ICD-9-CM ; Comments: 06/10/2010 16:12 - SANDRINE FULLER RN no known date of onset Migraine Headache (MEDRANO) NOS (ICD-9-CM :346.90 ) Name of Problem: Migraine Headache (MEDRANO) NOS ; Recorder: GUANAKITO JOHNSON RN; Confirmation: Confirmed ; Classification: Nursing ; Code: 346.90 ; Contributor System: [employer]ricity ; Last Updated: 11/05/2014 21:26 CDT ; Life Cycle Date: 11/05/2014 ; Life Cycle Status: Active ; Responsible Provider: GUANAKITO JOHNSON RN; Vocabulary: ICD-9-CM Thoracic or Lumbosacral Neuritis or Radiculitis, Unspecified (ICD-9-CM :724.4 ) Name of Problem: Thoracic or Lumbosacral Neuritis or Radiculitis, Unspecified ; Onset Date: 11/29/2007 ; Confirmation: Confirmed ; Classification: UPDATE NEEDED ; Code: 724.4 ; Contributor System: [facility]_HX_[facility]_UPLOAD ; Last Updated: 07/13/2013 18:13 CDT ; Life Cycle Status: Active ; Vocabulary: ICD-9-CM ; Comments: - Lumbarradiculopathy Tobacco Use Disorder (ICD-9-CM :305.1 ) Name of Problem: Tobacco Use Disorder ; Onset Date: 08/22/2011 ; Recorder: JANAY WAYNE CNP, DNP; Confirmation: Confirmed ; Classification: Medical ; Code: 305.1 ; Last Updated: 08/22/2011 13:54 CDT ; Life Cycle Status: Active ; Responsible Provider: JANAY WAYNE CNP, DNP; Vocabulary: ICD-9-CM Diagnoses(Active) Headache - Recurrent Date: 11/18/2015 ; Diagnosis Type: Reason For Visit ; Confirmation: Complaint of ; Clinical Dx: Headache - Recurrent ; Classification: Medical ; Clinical Service: Emergency medicine ; Code: PNED ; Probability: 0 ; Diagnosis Code: [id number] Triage Chief Complaint Description : 35 year old female admitted to ER with complaints of migraine states started last night. States she uses toradol po at home but currently is out of it. Information Given By : Patient Present in Room During Exam/Procedure : Alone Mode of Arrival ED : Private vehicle Track : Medical Languages : Honduran Vital Signs Assessed : Yes Treatments Prior to Arrival : None Are you ? : No Is Patient Female and 13-50 no hysterectomy : Yes Status : Patient denies ROXANNE MÁRQUEZ RN - 11/18/2015 7:28 CDT Vital Signs Temperature Core : 35.7 DegC(Converted to: 96.3 DegF) (LOW) Peripheral Pulse Rate : 90 /min Respiratory Rate : 18 /min Systolic Blood Pressure : 112 mmHg Diastolic Blood Pressure : 78 mmHg NIBP Mean : 89 mmHg BP Location : Left upper extremity SpO2 : 97 % Oxygen Therapy : Room air Actual Weight : 85.1 kg Actual Weight Conversion to Pounds : 187.22 lb Weight Source : Standing scale ROXANNE MÁRQUEZ RN - 11/18/2015 7:28 CDT Pain Assessment Pain Symptoms : Yes ROXANNE MÁRQUEZ RN - 11/18/2015 7:28 CDT Pain Scale Pain Scale Verbal 0-10 : Open ROXANNE MÁRQUEZ RN - 11/18/2015 7:28 CDT Pain Pain Assessment Grid Pain 1 Location : Head Laterality : Other: frontal Intensity : 8 ROXANNE MÁRQUEZ RN - 11/18/2015 7:28 CDT ED Physician Notification Time ED Physician Notification Time : 11/18/2015 7:31 CDT ROXANNE MÁRQUEZ RN - 11/18/2015 7:28 CDT MORALES MORALES Level 1 : No MORALES Level 2 : No MORALES Level 3 : None ROXANNE MÁRQUEZ RN - 11/18/2015 7:28 CDT DCP GENERIC CODE Tracking Acuity : 5 -Non Urgent Tracking Group : [facility] ED ROXANNE MÁRQUEZ RN - 11/18/2015 7:28 CDT Allergy (As Of: 11/18/2015 07:32:22 CDT) Allergies (Active) Augmentin XR Estimated Onset Date: Unspecified ; Reactions: GI distress ; Created By: MYRNA EDMONDS MD; Reaction Status: Active ; Category: Drug ; Substance: Augmentin XR ; Type: Intolerance ; Severity: Moderate ; Updated By: MYRNA EDMONDS MD; Source: Patient ; Reviewed Date: 11/18/2015 7:31 CDT Cipro Estimated Onset Date: Unspecified ; Created By: ROXANNE MÁRQUEZ RN; Reaction Status: Active ; Category: Drug ; Substance: Cipro ; Type: Allergy ; Updated By: ROXANNE MÁRQUEZ RN; Reviewed Date: 11/18/2015 7:31 CDT quinolone antibiotics Comments: Comment 1: QUINOLONES - Cipro; vomiting ; Created By: Contributor_system, [facility]_HX_ALRG_SYS; Reaction Status: Active ; Category: Drug ; Substance: quinolone antibiotics ;Type: Unknown ; Updated By: Contributor_system [facility]_HX[facility]AL[facility]_SYS; Reviewed Date: 11/18/2015 7:31 CDT Silicone Estimated Onset Date: Unspecified ; Created By: JENNIFER FRANCIS RN; Reaction Status: Active ; Category: Drug ; Substance: Silicone ; Type: Sensitivity ; Updated By: JENNIFER FRANCIS RN; Reviewed Date: 11/18/2015 7:31 CDT ID Screen Drug Resistant Organism : No Travel Within Last 21 Days : No Contact with someone with Ebola : No ROXANNE MÁRQUEZ RN - 11/18/2015 7:28 CDT Immunizations Last Tetanus : Unknown Pneumovac : None Influenza : Last year ROXANNE MÁRQUEZ RN - 11/18/2015 7:28 CDT Source: [employer] Document Id: [id number] CDT!53 documented in this encounter Miscellaneous Notes Miscellaneous - Conversion, Historical Provider Ser - 11/18/2015 8:15 AM CDT Coding Summary-Paper Based CODING DATE: 11/26/2015 FINAL [place] [facility] STATUS: * Discharged to Home or Self Care PAYOR: Medicaid ADMIT DX: R51 Headache REASON FOR VISIT DX: R51 Headache FINAL DX: PRINCIPAL: G43.909 Migraine, unspecified, not intractable, without status migrainosus SECONDARY: F17.210 Nicotine dependence, cigarettes, uncomplicated Z88.1 Allergy status to other antibiotic agents status Z88.8 Allergy status to other drugs, medicaments and biological substances status PROCEDURES DOCTOR NAME DATE NOTE: The code number assigned matches the documented diagnosis and / or procedure in the patient's chart. However, the narrative phrase printed from the coding software may appear abbreviated, or result in slightly different terminology. Coded By: LYN BOJORQUEZ Date Saved: 11/26/2015 10:28 am Source: [employer] Document Id: [id number] Miscellaneous - Roxanne Márquez R.N. - 11/18/2015 8:00 AM CDT Valuables/Belongings Valuables/Belongings Entered On: 11/18/2015 8:00 CDT Performed On: 11/18/2015 8:00 CDT by ROXANNE MÁRQUEZ RN Valuables/Belongings Belongings Sent Home With : patient ROXANNE MÁRQUEZ RN - 11/18/2015 8:00 CDT Source: [employer] Document Id: [id number] CDT!3 Miscellaneous - Roxanne Márquez RBessy - 11/18/2015 7:19 AM CDT Facility Charge Ticket 2.0 11.0 DX Facility Charge Ticket 2.0 11.0 DX Entered On: 11/18/2015 8:00 CDT Performed On: 11/18/2015 7:19 CDT by ROXANNE MÁRQUEZ RN Facility Charge Ticket 2.0 11.0 DX ED Other Charges : Standard ED Encounter TVL Level Translated RTF : Headache - Recurrent TVL:3 TVL Level for Facility Charge Ticket : Level 3 Arrival Mode Calc : 1 Mode of Arrival ED : Private vehicle [facility] Mode of Arrival Interpreted : Standard [facility] Process Management : None [facility] Order Management : None 30 Minutes Critical Care : No Nursing Notes RTF : Triage Forms ED Triage Assessment,11/18/15 07:28,ROXANNE MÁRQUEZ RN Nursing Notes ED Primary Assessment,11/18/15 07:32,ROXANNE MÁRQUEZ RN [facility] Nursing Assessment : Triage and 1-2 nursing assessments Lynx Disposition : Discharge [facility]x Total Points with Diagnosis Control : 5 Lynx Visit Level : 08264 Level 3 Treatments Prior to Arrival : None ROXANNE MÁRQUEZ RN - 11/18/2015 8:00 CDT Source: [employer] Document Id: [id number] CDT!17 documented in this encounter Plan of Treatment Not on filedocumented as of this encounter Visit Diagnoses Not on filedocumented in this encounter Additional Health Concerns Assessment Noted Time PHQ-9 Depression Total Score: 1 06/13/2014 1:45 PM 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
--- OUTSIDE RECORDS SUMMARY | 2022-03-16 15:06 | XMS_ITS | Encounter Summary ---
:1980 Author Organization [facility] Address [address] [place] [address] Care Team Providers Name Role Phone Unavailable Primary Care Provider Unavailable Encounter Details Date Type Department Care Team Description 09/15/2014 - [facility] Provider, Shannen noriega 01/14/2015 [place] Social History Tobacco Use Types Packs/Day Years [...] or slept in a half-way (including now)? Sex Assigned at Date Recorded Not on file documented as of this encounter Medications at Time of Discharge Medication Sig Dispensed Refills Start Date End Date ACETAMINOPHEN ORAL Take 500 mg by 0 06/04/2013 mouth every 6 (six) hours as needed. ibuprofen Take 4 tablets by 0 04/22/2014 020 (for_ADVIL,MOTRIN) 200 mg mouth as needed. tablet documented as of this encounter Miscellaneous Notes Miscellaneous - Nohemy Subramanian - 10/09/2014 2:41 PM CDT *General Message Document Contains Addenda Addendum by RAQUEL ARCHULETA MD on 21 October 2014 11:58:54 CDT From: RAQUEL ARCHULETA MD To: NOHEMY SUBRAMANIAN; Sent: 10/21/2014 11:58:54 CDT Subject: RE: *General Message That would be great. Raquel White Addendum by NOHEMY SUBRAMANIAN on 21 October 2014 10:06:09 CDT From: NOHEMY SUBRAMANIAN To: RAQUEL ARCHULETA MD; Sent: 10/21/2014 10:06:09 CDT Subject: RE: *General Message Insurance is still calling on wanting to switch her to Hydrocodine, tramadohl 50mg up to 3xday or the Maxalt but maxalt also requries a PA. I just seen she has an unassigned PCP so I am assume she needs to be seen to establish a new PCP she was seeing Zina and I did see you just sent in the last refill. I will contact patient and insurance to inform them that she needs to be seen. Addendum by NOHEMY SUBRAMANIAN on 15 October 2014 14:54:42 CDT From: NOHEMY SUBRAMANIAN To: RAQUEL ARCHULETA MD; Sent: 10/15/2014 14:54:42 CDT Subject: RE: *General Message They would like her to try Maxalt. Addendum by RAQUEL ARCHULETA MD on 15 October 2014 14:18:14 CDT From: RAQUEL ARCHULETA MD To: NOHEMY SUBRAMANIAN; Cc: AISHWARYA CHEN; Sent: 10/15/2014 14:18:14 CDT Subject: RE: *General Message I am uncertain which appeal was denied. Perhaps ketorolac? And I do not know what additional information is needed to complete the appeal. From going through patient's med list, it appears that she hasbeen on Imitrex in the past. I do not think I have ever seen patient for her headaches and simply refilled this med for her at a visit for something else. Addendum by AISHWARYA CHEN on 10 October 2014 14:49:37 CDT From: AISHWARYA CHEN To: RAQUEL ARCHULETA MD; Sent: 10/10/2014 14:49:37 CDT Subject: FW: *General Message Rosetta from [employer] called today and wondered if we were able to obtain the additional information needed to complete the appeal. She indicates that the appeal has not been denied but they want to know if patient can use alternative. They would like to know one way or another, please advise. From: NOHEMY SUBRAMANIAN To: RAQUEL ARCHULETA MD; Sent: 10/09/2014 14:41:56 CDT Subject: *General Message Insurance has denied the appeal the next step would be for her to try Maxalt. Is this something youwould like to do?? 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
--- OUTSIDE RECORDS SUMMARY | 2022-03-16 15:06 | XMS_ITS | Encounter Summary ---
:1980 Author Organization [facility] Address [address] [place] [address] Care Team Providers Name Role Phone Unavailable Primary Care Provider Unavailable Encounter Details Date Type Department Care Team Description 08/07/2017 Ancillary Procedure Department of Otorhinolaryngology Social History Tobacco Use Types Packs/Day Years [...] or slept in a chcf (including now)? Sex Assigned at Date Recorded Not on file documented as of this encounter Plan of Treatment Not on filedocumented as of this encounter Procedures Procedure Name Priority Date/Time Associated Comments Diagnosis OTORHINOLARYNGOLOGY IMAGE Routine 08/07/2017 9:25 Results for this EXAM AM CDT procedure are i n the results section. documented in this encounter Results OTORHINOLARYNGOLOGY IMAGE EXAM (08/07/2017 9:25 AM CDT) Specimen (Source) Anatomical Collection Method Collection Time Re ceived Time Location / / Volume Laterality 08/07/2017 9:24 AM CDT Narrative [facility] - 08/07/2017 9:49 AM CDT This order has been created and auto-finalized to support the import of images acquired without order. The clini beatrice documentation to support these images can be found on the encounter gelacio t produced images. 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
--- OUTSIDE RECORDS SUMMARY | 2022-03-16 15:06 | XMS_ITS | Encounter Summary ---
:1980 Author Organization [facility] Address [address] [place] [address] Care Team Providers Name Role Phone Unavailable Primary Care Provider Unavailable Encounter Details Date Type Department Care Team Description 06/15/2016 Hospital Encounter [facility] Smooth Riddle, P.A.-C. 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 - 06/15/2016 2:30 PM CST Clinic Full Note CHIEF COMPLAINT/REASON FOR VISIT Sore throat post nasal drip, cough and right ear pain. completed zpak week and a half ago. HISTORY OF PRESENT ILLNESS Patient is a 36 year old female with a history of childhood asthma who presents today for evaluation of 4 weeks of cold like symptoms. The patient notes she was treated with azithromycin about 3 weeksago. She had some improvement of her symptoms which included cough, sore throat, ear pain, rhinorrhea and nasal congestion. She states her symptoms have been worsening again for the past 2 weeks. She denies any sinus pain or pressure as well as any fevers, chills or body aches. She did have some sweats today. The patient has been using Mucinex, Sudafed, DayQuil, Delsym as well as albuterol and Flovent for her symptoms. She denies any shortness of breath. MEDICATIONS ibuprofen 200 mg oral tablet, 800 mg, 4 tab(s), PO, PRN ketorolac 10 mg oral tablet, 10 mg, 1 tab(s), PO, 4xDay Mirena 52 mg intrauteral device, 52 mg, 1 each, [facility] [id number], Intrauteral, Once, 0 refills Tylenol, 500 mg, PO, q6hr, PRN ALLERGIES Augmentin XR (GI distress) Cipro quinolone antibiotics Silicone PAST MEDICAL HISTORY Chronic Allergic rhinitis, unspecified Anxiety State, Unspecified Migraine headache Tobacco Use Disorder Historical Other Symptoms Involving Urinary System Sinusitis PROCEDURES/SURGICAL HISTORY Dilation and curettage (03/26/2013), Endometrial sampling (biopsy) with or without endocervical sampling (biopsy), without cervical dilation, any method (separate procedure).. (12/09/2009), ENT (ABSTRACTED) - 09/13/01 - Sinus surgery x 2 (09/13/2001), Tonsillectomy with adenoidectomy (04/17/1994), ENT (ABSTRACTED) - age 8 - tubes placed as child (1980). SOCIAL HISTORY Date Time: 06/15/2016 14:03 Tobacco: Smoking Status: Current every day smoker Exposure: Patient smokes Alcohol: Use: No Results Found Recreational Drugs: Use: None Type: No Results Found FAMILY HISTORY Mother:Positive: Diabetes mellitus; Liver Father:Positive: MEDRANO - Headache; Hypertension Sister:Positive: Asthma SYSTEMS REVIEW As noted above VITAL SIGNS T: 36.1 ??C (Core) HR: 82 RR: 16 BP: 123 / 80 SpO2: 97% HT: 158 cm PHYSICAL EXAMINATION GENERAL: Patient is in no distress. HEENT: Normocephalic. PERRL, Canals patent, bilateral TMs are nonerythematous and non-bulging. Nasal mucosa is erythematous. No tenderness over the maxillary or frontal sinuses. Oropharynx without lesion of mucosa. Pharyngeal rises symmetrically without exudate or erythema. NECK: No cervical or supraclavicular lymphadenopathy HEART: Regular rate and rhythm. No murmurs, gallops or rubs noted. LUNGS: Clear to auscultation bilaterally. No expiratory wheeze. No accessory muscles of respirationnoted. NEURO: Alert and nonfocal, moving all 4 extremities PSYCH: Appropriate affect IMPRESSION/REPORT/PLAN 1. Infection Upper Respiratory (URI) Mucinex for congestion. Robitussin cough syrup to help with cough. I discussed with patient that at this time I did not feel she needed any further antibiotics. Her symptoms are chronic and on going. Patient has seen ENT in the past and would like to see ENT again for this on going acute on chronic sinusitis. Referral was given for her. Hydration and rest are very important Follow up in 1-2 weeks if not improving 2. Congestion Nasal See above Orders: Consult to ENT Electronically Signed By: LEVI WAITE PA-C On: 06/20/2016 11:34 AM Source: [facility] [employer] Document Id: [id number] INUM MOLDING MACHINE OPERATOR documented in this encounter Miscellaneous Notes Miscellaneous - Radha Guajardo L.PLashawnNLashawn - 06/15/2016 2:03 PM CST Adult Cloth Covered Helmet Puller Intake/History Adult Cloth Covered Helmet Puller Intake/History Entered On: 06/15/2016 14:06 ALUMINUM MOLDING MACHINE OPERATOR Performed On: 06/15/2016 14:03 ALUMINUM MOLDING MACHINE OPERATOR by RADHA GUAJARDO LPN Intake Chief Complaint : Sore throat post nasal drip, cough and right ear pain. completed zpak week and a half ago. Onset of Symptoms : 3 weeks Temperature Core : 36.1 DegC(Converted to: 97.0 DegF) (LOW) Peripheral Pulse Rate : 82 /min Respiratory Rate : 16 /min Heart Rhythm : Regular Systolic Blood Pressure : 123 mmHg Diastolic Blood Pressure : 80 mmHg NIBP Mean : 94 mmHg BP Location : Left upper extremity Blood Pressure Cuff Size : Regular SpO2 : 97 % Oxygen Therapy : Room air Height : 158 cm(Converted to: 5 ft 2 inch(es), 62 inch(es)) RADHA GUAJARDO LPN - 06/15/2016 14:03 ALUMINUM MOLDING MACHINE OPERATOR General Info Languages : Hebrew Is Patient Female and 13-50 no hysterectomy : Yes Status : Patient denies Are you ? : No RADHA GUAJARDO LPN 06/15/2016 14:03 ALUMINUM MOLDING MACHINE OPERATOR Subjective Pain Symptoms : Yes RADHA GUAJARDO LPN - 06/15/2016 14:03 ALUMINUM MOLDING MACHINE OPERATOR Pain Scale Pain Scale Verbal 0-10 : Open RADHA GUAJARDO LPN 06/15/2016 14:03 ALUMINUM MOLDING MACHINE OPERATOR Pain Pain Assessment Grid Pain 1 Pain 2 Location : Throat Ear Laterality : Bilateral Right Intensity : 7 7 RADHA GUAJARDO CORE BLOWER OPERATOR 06/15/2016 14:03 ALUMINUM MOLDING MACHINE OPERATOR RADHA GUAJARDO LPN 06/15/2016 14:03 ALUMINUM MOLDING MACHINE OPERATOR Dependent Habits Exposure to Tobacco Smoke : Patient smokes Smoking Status : Current every day smoker Tobacco 2A : Yes Tobacco Use/Currently Using : Yes Tobacco Use/Last 30 Days : Yes Tobacco Use/Last 12 months : Yes Type : Cigarettes: Less than 20 per day Tobacco Use/Advised to Quit : Yes RADHA GUAJARDO LPN 06/15/2016 14:03 ALUMINUM MOLDING MACHINE OPERATOR Caffeine Use Grid Caffeine Use : Current Type : Coffee, Soft drinks Frequency : Occasionally RADHA GUAJARDO LPN 06/15/2016 14:03 ALUMINUM MOLDING MACHINE OPERATOR Recreational Drug Use Grid Drug Use : None RADHA GUAJARDO LPN 06/15/2016 14:03 ALUMINUM MOLDING MACHINE OPERATOR Source: [facility] [employer] Document Id: [id number] ALUMINUM MOLDING MACHINE OPERATOR!52 INUM MOLDING MACHINE OPERATOR documented in this encounter Plan of Treatment Not on filedocumented as of this encounter Visit Diagnoses Not on filedocumented in this encounter Additional Health Concerns Assessment Noted Time PHQ-9 Depression Total Score: 1 06/13/2014 1:45 PM ALUMINUM MOLDING MACHINE OPERATOR documented as of this encounter
--- OUTSIDE RECORDS SUMMARY | 2022-03-16 15:06 | XMS_ITS | Encounter Summary ---
:1980 Author Organization [facility] Address [address] [place] [address] Care Team Providers Name Role Phone Unavailable Primary Care Provider Unavailable Encounter Details Date Type Department Care Team Description 08/08/2017 Orders Only Department of , Braydon Shah Otorhinolaryngology in [address] CHARAN Patel [address] [facility] [address] [place] [address] [phone] Social History Tobacco Use Types Packs/Day Years [...] Depression Total Score: 1 06/13/2014 1:45 PM HEDIS MANAGER documented as of this encounter
--- OUTSIDE RECORDS SUMMARY | 2022-03-16 15:06 | XMS_ITS | Encounter Summary ---
:1980 Author Organization [facility] Address [address] [place] [address] Care Team Providers Name Role Phone Unavailable Primary Care Provider Unavailable Encounter Details Date Type Department Care Team Description 08/16/2017 Orders Only Department of , Braydon Shah Otorhinolaryngology in [address] CHARAN Patel [address] [facility] [address] [place] [address] [phone] Social History Tobacco Use Types Packs/Day Years [...] More than 4 times per year 11/09/2020 shinto services? Do you belong to any clubs [...] Depression Total Score: 1 06/13/2014 1:45 PM SAUSAGE CANNER documented as of this encounter
--- OUTSIDE RECORDS SUMMARY | 2022-03-16 15:06 | XMS_ITS | Encounter Summary ---
:1980 Author Organization [facility] Address [address] [place] [address] Care Team Providers Name Role Phone Unavailable Primary Care Provider Unavailable Encounter Details Date Type Department Care Team Description 08/08/2017 Orders Only Department of , Braydon Shah Otorhinolaryngology in [address] CHARAN Patel [address] [facility] [address] [place] [address] [phone] Social History Tobacco Use Types Packs/Day Years [...] or slept in a fci (including now)? Sex Assigned at Date Recorded Not on file documented as of this encounter Plan of Treatment Not on filedocumented as of this encounter Visit Diagnoses Not on filedocumented in this encounter Additional Health Concerns Assessment Noted Time PHQ-9 Depression Total Score: 1 06/13/2014 1:45 PM PASTOR documented as of this encounter
--- OUTSIDE RECORDS SUMMARY | 2022-03-16 15:06 | XMS_ITS | Encounter Summary ---
:1980 Author Organization [facility] Address [address] [place] [address] Care Team Providers Name Role Phone Unavailable Primary Care Provider Unavailable Encounter Details Date Type Department Care Team Description 08/22/2017 Orders Only Department of , Braydon Shah Otorhinolaryngology in [address] CHARAN Patel [address] [facility] [id number] [place] [address] [phone] Social History Tobacco Use Types Packs/Day Years [...] Depression Total Score: 1 06/13/2014 1:45 PM TANKER SERVICE ATTENDANT documented as of this encounter
--- OUTSIDE RECORDS SUMMARY | 2022-03-16 15:06 | XMS_ITS | Encounter Summary ---
:1980 Author Organization [facility] Address [address] [place] [address] Care Team Providers Name Role Phone Unavailable Primary Care Provider Unavailable Encounter Details Date Type Department Care Team Description 11/05/2014 Hospital Encounter [facility] ED Valeriy Nicole , P.A.-C. [address] [place], [place] [phone] (Wo rk) Social History [...] More than 4 times per year 11/09/2020 alevism services? Do you belong to any [...] Sign Reading Time Taken Comments Blood Pressure 117/79 11/05/2014 9:25 PM CDT Pulse 51 11/05/2014 8:41 PM CDT Temperature - - Respiratory Rate - - Oxygen Saturation - - Inhaled Oxygen Concentration - - Weight - - Height - - Body Mass Index - - documented in this encounter Discharge Summaries Sandhya Johnson R.N. - 11/05/2014 10:32 PM CDT ED Discharge Instructions [address] [address] Name: CARTER LEI Date of : 1980 12:00 AM Visit Date: 11/05/2014 8:32 PM [facility] Number: [id number] Address: [address] [place] [phone] Primary Care Provider: PCPLANDEN IMPORTANT: [facility] in [place] would like to thank you for allowing us to assist you with your healthcare needs. The following includes patient education materials and informationregarding your injury/illness. Diagnosis: Migraine Headache (MEDRANO) NOS Follow-Up Instructions: With: Address: When: UNASSIGNED - CA PCP Within 2 - 4 days Comments: For recheck Your Upcoming Appointments: Date Time Location Provider No Appointments found Patient Education Materials: Migraine Headache Migraine headaches [...] ?? Difficulty with speech or vision ?? [id number] [place] [address]. All rights reserved. This information is not [...] if you dont have one. Go to [email or web address] and click on Create Your Account. Then, follow the directions to complete the online form. Youll be asked for your [facility] number which you can find at the top of this document. ED Tests and Procedures: Order Status Discharge Prescriptions & Home Medications: Medication/Strength Dose Route Frequency Indications/Special Instructions/Comments/Notes Misc Prescription (Misc Prescription) Pt states she was recently started on a Beta sudarshan for migraines ketorolac (ketorolac 10 mg oral tablet) 10 mg Oral four times a day as needed for Migraine headache (not to exceed 40 mg/day). NOT TO BE USED WITH OTHER NSAIDS etonogestrel (Implanon 68 mg subcutaneous implant) 68 mg Subcutaneous once ibuprofen (ibuprofen 200 mg oral tablet) 800 mg Oral as needed benzoyl peroxide topical (benzoyl peroxide 5% topical gel) 1 sonya Topical two times a day acetaminophen (Tylenol) 500 mg Oral every 6 [...] arrange a ride home with a responsible green party. RODRICK Ace GINA MARIE , or responsible green party have received this information and my questions have been answered. I have discussed any challenges I see with this plan with the nurse or physician. Patient Signature or Responsible Republican/Relationship Date Time Provider Signature Date Time IMPORTANT: [...] arrange a ride home with a responsible green party. I, CARTER LEI ELEAZAR , or responsible green party have received this information and my questions have been answered. I have discussed any challenges I see with this plan with the nurse or physician. Patient Signature or Responsible Republican/Relationship Date Time Provider Signature Date Time Source: [facility] POWERCHART Document Id: [id number] Sandhya Johnson R.N. - 11/05/2014 10:32 PM CDT ED Depart Summary [facility] Emergency Department Clinical Discharge Summary PERSON INFORMATION Name CARTER LEI Age 34 Years 1980 12:00 AM Sex Female Language Ecuadorean PCP PCP, UNASSIGNED - [place] Marital Status Single Visit Id Visit Reason Headache; migraine Specialty Enc Type Emergency Med Service Emergency Medicine Referred by Track Group [facility] ED Discharge 11/05/2014 10:32 PM Tracking Id [id number] Checkout 11/05/2014 10:32 PM Checkin 11/05/2014 8:32 PM Acuity 4 -Less Urgent Dispo Type * Discharged to Home or Self Care Arrival 11/05/2014 8:32 PM Reg Status Complete LOS 000 02:00 Address: [address] [place] [phone] Comment: PROVIDER INFORMATION Provider Role Provider Contact Time SANDHYA JOHNSON INPATIENT CODER Nurse 11/05/14 20:39 VALERIY ZIMMERMAN ED Provider 11/05/14 21:33 DIAGNOSIS Migraine Headache (MEDRANO) NOS Comment: PATIENT EDUCATION INFORMATION Instructions: HEADACHE, Migraine (Classical) Follow up: With: Address: When: UNASSIGNED - CA PCP Within 2 - 4 days Comments: For recheck Source: Transphorm Document Id: [id number] documented in this encounter Medications at Time of Discharge Medication Sig Dispensed Refills Start Date End Date ACETAMINOPHEN ORAL Take 500 mg by 0 06/04/2013 mouth every 6 (six) hours as needed. ibuprofen Take 4 tablets by 0 04/22/2014 020 (for_ADVIL,MOTRIN) 200 mg mouth as needed. tablet documented as of this encounter Nursing Notes Sandhya Johnson R.N. - 11/05/2014 10:23 PM CDT IV Phenergan Pt here with complaints of migraine headache. Verbal orders received for Toradol and Phenergan. Both given IV . Oders were for Phenergan IM . Pharmacy notified . Pt received one literof IV fluids . Skin intact with out irriitation when IV removed. Source: Transphorm Document Id: [id number] documented in this encounter ED Notes Sandhya Johnson R.N. - 11/05/2014 10:31 PM CDT ED Pain Assessment ED Pain Assessment Entered On: 11/05/2014 22:31 CDT Performed On: 11/05/2014 22:31 CDT by SANDHYA JOHNSON RN Pain Assessment Pain Symptoms : Yes SANDHYA JOHNSNO RN - 11/05/2014 22:31 CDT Pain Scale Pain Scale Verbal 0-10 : Open SANDHYA JOHNSON RN - 11/05/2014 22:31 CDT Pain Pain Assessment Grid Pain 1 Location : Head Intensity : 0 SANDHYA JOHNSON RN - 11/05/2014 22:31 CDT Source: Transphorm Document Id: [id number] CDT!10 Sandhya Johnson R.N. - 11/05/2014 10:30 PM CDT ED Treatments and Procedures ED Treatments and Procedures Entered On: 11/05/2014 22:30 CDT Performed On: 11/05/2014 22:30 CDT by SANDHYA JOHNSON RN Peripheral IV Peripheral IV Assess/Intervention Grid Peripheral IV #1 IV Activity : Discontinue Removal : Catheter intact (Comment: Site without redness warmth or pain [SANDHYA JOHNSON RN - 11/05/2014 22:30 CDT] ) Number of Attempts : 1 Date of Insertion : 11/05/2014 CDT IV Site : Antecubital Laterality : Left Catheter Size : 20 Infiltration Score : 0 Phlebitis Score : 0 SANDHYA JOHNSON RN - 11/05/2014 22:30 CDT Source: [employer]orm Document Id: [id number] CDT!13 Sandhya Johnson R.N. - 11/05/2014 10:30 PM CDT ED Disposition Summary ED Disposition Summary Entered On: 11/05/2014 22:31 CDT Performed On: 11/05/2014 22:30 CDT by SANDHYA JOHNSON RN ED Disposition Summary Accompanied By : Significant other Printed Discharge Instructions Given to Patient : Yes SANDHYA JOHNSON RN - 11/05/2014 22:30 CDT Source: Transphorm Document Id: [id number] CDT!4 Valeriy Nicole P.A.-C. - 11/05/2014 9:51 PM CDT Headache Patient: CARTER LEI Age: 34 years Sex: Female : 1980 Author: VALERIY ZIMMERMAN Attachments: None Associated Diagnosis: Migraine Headache (MEDRANO) NOS Basic Information History source: Patient. Arrival mode: Private vehicle, walking. History limitation: None. History of Present Illness The patient presents with headache. The onset was 0530am. The course/duration of symptoms is constant. Location: Bilateral frontal retro-orbital. The character of symptoms is throbbing. The degree at onset was minimal. The degree at maximum was moderate. The degree at present is 8 /10. There are exacerbating factors including light and exertion. The relieving factor is none. Risk factors consist of none. Prior episodes: frequent. Therapy today: over the counter medications including Ibuprofen and benadryl. Associated symptoms: nausea and vomiting. Additional history: Recently started propranolol for MEDRANO prophylaxis. Was helpful. Today's MEDRANO typical but is one of her more painful ones.. Review of Systems Constitutional symptoms: Negative except [...] symptoms: Negative except as documented in HPI. Allergy/immunologic symptoms: Negative except as documented in HPI. Health Status Allergies: Allergic Reactions (Selected) Severity Not Documented Cipro- No reactions were documented. Nonallergic Reactions (Selected) Moderate Augmentin XR- Gi distress. Severity Not Documented Quinolone antibiotics- No reactions were documented. Silicone- No reactions were documented.. Medications: (Selected) Prescriptions Prescribed benzoyl peroxide 5% topical gel: 1 sonya, Topical, 2xDay, 30 gm Documented Medications Documented Implanon 68 mg subcutaneous implant: 68 mg, 1 each, Subcut., Once Tylenol: 500 mg, PO, q6hr, PRN: Pain ibuprofen 200 mg oral tablet: 800 mg, 4 tab(s), PO, PRN. Past Medical/ Family/ Social History Medical history: Active Migraine headache (346.90): Onset on 04/17/1989 at 8 years. Comments: 06/10/2010 EMERGING TECHNOLOGIES DIRECTOR 16:12 EMERGING TECHNOLOGIES DIRECTOR - SANDRINE FULLER RN no known date of onset Resolved Other Symptoms Involving Urinary System (788.99): Onset on 03/04/2008 at 27 years. Resolved. Comments: - Bladder pain Sinusitis (473.9): Onset on 05/19/2000 at 19 years. Resolved.. Surgical history: Dilation and curettage ([id number]) on 03/26/2013 at 32 Years. Endometrial sampling (biopsy) with or without endocervical sampling (biopsy), without cervical dilation, any method (separate procedure) (94520) on 12/09/2009 at 29 Years. ENT (ABSTRACTED) - 09/13/01 - Sinus surgery x 2 on 09/13/2001 at 21 Years. Tonsillectomy with adenoidectomy ([id number]) on 04/17/1994 at 13 Years. ENT (ABSTRACTED) - age 8 - tubes placed as child on 1980 at 8 Days.. Family history: Liver Mother Comments: 08/16/2010 09:57 - JENNIFER LIN LPN Liver failure Diabetes mellitus Mother Asthma Sister Hypertension Father MEDRANO - Headache Father . Problem list: All Problems (Selected) Anxiety State, Unspecified / 300.00 / Confirmed Tobacco Use Disorder / 305.1 / Confirmed Migraine Headache (MEDRANO) NOS / 346.90 / Confirmed Migraine headache / 346.90 / Confirmed Allergic rhinitis, unspecified / 477.9 / Confirmed Acne vulgaris / 706.1 / Confirmed Thoracic or Lumbosacral Neuritis or Radiculitis, Unspecified / 724.4 / Confirmed. Physical Examination Vital Signs: Vital Signs 11/05/2014 21:25 CDT Systolic Blood Pressure 117 mmHg Diastolic Blood Pressure 79 mmHg BP Location Left upper 11/05/2014 20:41 CDT Temperature Oral 35.8 DegC Peripheral Pulse Rate 51 /min LOW SpO2 100 % Systolic Blood Pressure 95 mmHg Diastolic Blood Pressure 81 mmHg BP Location Left upper . General: Alert and mild distress. Skin Head: Normocephalic and atraumatic. Eye: Pupils are equal, round and reactive to light and extraocular movements are intact. Ears, nose, mouth and throat: Oral mucosa moist. Cardiovascular: Regular rate and rhythm and Normal peripheral perfusion. Respiratory: Lungs are clear to auscultation, respirations are non-labored, breath sounds are equal and Symmetrical chest wall expansion. Musculoskeletal: Normal ROM. normal strength. Neurological: Alert and oriented to person, place, time, and situation, No focal neurological deficit observed, CN II-XII intact, normal sensory observed, normal motor observed, normal speech observed and normal coordination observed. Psychiatric: Cooperative and appropriate mood & affect. Medical Decision Making Differential Diagnosis:Migraine. Documents reviewed:Emergency department nurses' notes. OrdersLaunch Orders Pharmacy: Phenergan (Order Processing): 25 mg, IM, Once Toradol (Order Processing): 30 mg, IV Push, Once Sodium Chloride 0.9% 1000 mL (Order Processing): 1,000 mL/hr, IV. Reexamination/ Reevaluation Course: improving. Pain status: decreased, pain level 1 out of 10. Impression and Plan Diagnosis Migraine Headache (MEDRANO) NOS (Discharge, Emergency medicine, Medical) Plan Condition: Improved, Stable. Disposition: Medically cleared, Discharged: to home. Patient was given the following educational materials: HEADACHE, Migraine (Classical), HEADACHE, Migraine (Classical). Follow up with: UNASSIGNED - CA PCP Within 2 - 4 days For recheck. Counseled: Patient, Regarding diagnosis, Regarding diagnostic results, Regarding treatment plan, Patient indicated understanding of instructions. Electronically Signed By: VALERIY ZIMMERMAN On: 11/05/2014 09:59 PM Co-Signed By: VINEET ARCHULETA MD On: 11/07/2014 12:04 PM Source: Transphorm Document Id: [id number]} Sandhya Johnson, RLashawnNLashawn - 11/05/2014 9:29 PM CDT ED Primary Assessment Document Has Been Updated ED Primary Assessment Entered On: 11/05/2014 21:30 CDT Performed On: 11/05/2014 21:29 CDT by SANDHYA JOHNSON RN Reason For Visit (As Of: 11/05/2014 21:30:46 CDT) Problems(Active) Acne vulgaris (ICD-9-CM :706.1 ) Name of Problem: Acne vulgaris ; Recorder: ALLEN BEDOYA RN; Confirmation: Confirmed ; Classification: Nursing ; Code: 706.1 ; Contributor System: BookFreshChart ; Last Updated: 12/17/2010 11:55 CDT ; [...] System: PowerChart ; Last Updated: 04/12/2011 17:14 EMERGING TECHNOLOGIES DIRECTOR ; Life Cycle Date: 06/10/2010 ; Life Cycle Status: Active ; Responsible Provider: SANDRINE FULLER RN; Vocabulary: ICD-9-CM ; Comments: 06/10/2010 16:12 - SANDRINE FULLER RN no known date of onset Migraine Headache (MEDRANO) NOS (ICD-9-CM :346.90 ) Name of Problem: Migraine Headache (MEDRANO) NOS ; Recorder: SANDHYA JOHNSON RN; Confirmation: Confirmed ; Classification: Nursing ; Code: 346.90 ; Contributor System: [employer] ; Last Updated: 11/05/2014 21:26 CDT ; Life Cycle Date: 11/05/2014 ; Life Cycle Status: Active ; Responsible Provider: SANDHYA JOHNSON RN; Vocabulary: ICD-9-CM Thoracic or Lumbosacral Neuritis or Radiculitis, Unspecified (ICD-9-CM :724.4 ) Name of Problem: Thoracic or Lumbosacral Neuritis or Radiculitis, Unspecified ; Onset Date: 11/29/2007 ; Confirmation: Confirmed ; Classification: UPDATE NEEDED ; Code: 724.4 ; Contributor System: [employer]_PR_UPLOAD ; Last Updated: 07/13/2013 18:13 CDT ; Life Cycle Status: Active ; Vocabulary: ICD-9-CM ; Comments: - Lumbarradiculopathy Tobacco Use Disorder (ICD-9-CM :305.1 ) Name of Problem: Tobacco Use Disorder ; Onset Date: 08/22/2011 ; Recorder: JANAY WAYNE RN, WEIGHT TRAINING INSTRUCTOR; Confirmation: Confirmed ; Classification: Medical ; Code: 305.1 ; Last Updated: 08/22/2011 13:54 CDT ; Life Cycle Status: Active ; Responsible Provider: JNAAY WAYNE RN WEIGHT TRAINING INSTRUCTOR; Vocabulary: ICD-9-CM Triage Chief Complaint Description : see note Mode of Arrival ED : Private vehicle Track : Medical Languages : Ecuadorean Treatments Prior to Arrival : Ibuprofen Are you ? : No Is Patient Female and 13-50 no hysterectomy : Yes Status : Patient denies SANDHYA JOHNSON RN - 11/05/2014 21:29 CDT Pain Assessment Pain Symptoms : Yes SANDHYA JOHNSON RN - 11/05/2014 21:29 CDT Respiratory Airway : Patent Respirations : Unlabored Respiratory Pattern : Regular SANDHYA JOHNSON RN - 11/05/2014 21:29 CDT Cardiovascular Heart Rhythm : Regular Skin Color : Normal for ethnicity Skin Description : Clammy Skin Temperature : Cold SANDHYA JOHNSON RN - 11/05/2014 21:29 CDT Neurological Last Well Time Known : Yes Last Known Well Time : 11/05/2014 8:00 CDT Level of Consciousness : Alert Orientation : Oriented x 3 Characteristics of Speech : Appropriate for age SANDHYA JOHNSON RN - 11/05/2014 21:29 CDT ED Psychosocial Affect/Behavior : Calm Domestic Abuse Concerns : None Behavioral Health Screen/Safety Assmt : No SANDHYA JOHNSON RN - 11/05/2014 21:29 CDT Gastrointestinal Nutrition ED : Adequate SANDHYA JOHNSON RN - 11/05/2014 21:29 CDT Musculoskeletal Fall Prevention Education Provided : NA SANDHYA JOHNSON RN - 11/05/2014 21:29 CDT Social Habits Tobacco Use/Currently Using : Yes Exposure to Tobacco Smoke : Patient smokes Smoking Status : Current every day smoker SANDHYA JOHNSON RN - 11/05/2014 21:29 CDT Tobacco Use Grid Type : Cigarettes Cigarette Use Packs/Day : 0.5 SANDHYA JOHNSON RN - 11/05/2014 21:29 CDT Alcohol Use Grid Alcohol Use : No No SANDHYA JOHNSON RN - 11/05/2014 21:29 CDT SANDHYA JOHNSON RN - 11/05/2014 21:29 CDT Recreational Drug Use Grid Drug Use : None SANDHYA JOHNSON RN - 11/05/2014 21:29 CDT Peripheral IV Peripheral IV Assess/Intervention Grid Peripheral IV #1 IV Activity : Start Number of Attempts : 1 Date of Insertion : 11/05/2014 CDT IV Site : Antecubital Laterality : Left Catheter Size : 20 SANDHYA JOHNSON RN - 11/05/2014 21:29 CDT Source: [facility] POWERCHART Document Id: [id number] CDT!60 Sandhya Johnson RJennifer. - 11/05/2014 9:26 PM CDT ED Triage Assessment Document Has Been Updated ED Triage Assessment Entered On: 11/05/2014 21:29 CDT Performed On: 11/05/2014 21:26 CDT by SANDHAY JOHNSON RN Reason For Visit (As Of: 11/05/2014 21:29:23 CDT) Problems(Active) Acne vulgaris (ICD-9-CM :706.1 ) [...] System: PowerChart ; Last Updated: 04/12/2011 17:14 EMERGING TECHNOLOGIES DIRECTOR ; Life Cycle Date: 06/10/2010 ; Life Cycle Status: Active ; Responsible Provider: SANDRINE FULLER RN; Vocabulary: ICD-9-CM ; Comments: 06/10/2010 16:12 - SANDRINE FULLER RN no known date of onset Migraine Headache (MEDRANO) NOS (ICD-9-CM :346.90 ) Name of Problem: Migraine Headache (MEDRANO) NOS ; Recorder: SANDHYA JOHNSON RN; Confirmation: Confirmed ; Classification: Nursing ; Code: 346.90 ; Contributor System: [employer] ; Last Updated: 11/05/2014 21:26 CDT ; Life Cycle Date: 11/05/2014 ; Life Cycle Status: Active ; Responsible Provider: SANDHYA JOHNSON RN; Vocabulary: ICD-9-CM Thoracic or Lumbosacral Neuritis or Radiculitis, Unspecified (ICD-9-CM :724.4 ) Name of Problem: Thoracic or Lumbosacral Neuritis or Radiculitis, Unspecified ; Onset Date: 11/29/2007 ; Confirmation: Confirmed ; Classification: UPDATE NEEDED ; Code: 724.4 ; Contributor System: [facility]_HX_PR_UPLOAD ; Last Updated: 07/13/2013 18:13 CDT ; [...] Provider: JANAY WAYNE RN, CNP; Vocabulary: ICD-9-CM Triage Chief Complaint Description : 34 year old female admits with concerns of migraine. Information Given By : Patient Mode of Arrival ED : Private vehicle Track : Medical Languages : Ecuadorean Treatments Prior to Arrival : Ibuprofen Are you ? : No Is Patient Female and 13-50 no hysterectomy : Yes Status : Patient denies SANDHYA JOHNSON RN - 11/05/2014 21:26 CDT Pain Assessment Pain Symptoms : Yes SANDHYA JOHNSON RN - 11/05/2014 21:26 CDT Pain Scale Pain Scale Verbal 0-10 : Open SANDHYA JOHNSON RN - 11/05/2014 21:26 CDT Pain Pain Assessment Grid Pain 1 Location : Head Laterality : Bilateral Intensity : 10 Aggravating Factors : Light, Movement SANDHYA JOHNSON RN - 11/05/2014 21:26 CDT ED Physician Notification Time ED Physician Notification Time : 11/05/2014 21:00 CDT SANDHYA JOHNSON RN - 11/05/2014 21:26 CDT MORALES MORALES Level 1 : No MORALES Level 2 : No SANDHYA JOHNSON RN - 11/05/2014 21:26 CDT DCP GENERIC CODE Tracking Acuity : 4 -Less Urgent Tracking Group : [facility] ED SANDHYA JOHNSON RN - 11/05/2014 21:26 CDT Allergy (As Of: 11/05/2014 21:29:23 CDT) Allergies (Active) Augmentin XR Estimated Onset Date: Unspecified ; Reactions: GI distress ; Created By: MYRNA EDMONDS MD; Reaction Status: Active ; Category: Drug ; Substance: Augmentin XR ; Type: Intolerance ; Severity: Moderate ; Updated By: MYRNA EDMONDS MD; Source: Patient ; Reviewed Date: 10/22/2014 10:48 CDT Cipro Estimated Onset Date: Unspecified ; Created By: YASMANY CAVANAUGH RN; Reaction Status: Active ; Category: Drug ; Substance: Cipro ; Type: Allergy ; Updated By: YASMANY CAVANAUGH RN; Reviewed Date: 10/22/2014 10:48 CDT quinolone antibiotics Comments: Comment 1: QUINOLONES - Cipro; vomiting ; Created By: Contributor_system, [facility]_HX_ALRG_SYS; Reaction Status: Active ; Category: Drug ; Substance: quinolone antibiotics ;Type: Unknown ; Updated By: Contributor_system [facility]_HX_ALRG_SYS; Reviewed Date: 10/22/2014 10:48 CDT Silicone Estimated Onset Date: Unspecified ; Created By: JENNIFER FRANCIS RN; Reaction Status: Active ; Category: Drug ; Substance: Silicone ; Type: Sensitivity ; Updated By: JENNIFER FRANCIS RN; Reviewed Date: 10/22/2014 10:48 CDT Source: [facility] POWERFast[employer] Document Id: [id number] CDT!30 Sandhya Johnson R.N. - 11/05/2014 9:25 PM CDT ED Treatments and Procedures ED Treatments and Procedures Entered On: 11/05/2014 21:25 CDT Performed On: 11/05/2014 21:25 CDT by ELIZABETH, SANDHYA J RN Peripheral IV Peripheral IV Assess/Intervention Grid Peripheral IV #1 IV Activity : Start Number of Attempts : 1 Date of Insertion : 11/05/2014 CDT IV Site : Antecubital Laterality : Left Catheter Size : 20 SANDHYA JOHNSON RN - 11/05/2014 21:25 CDT Source: Transphorm Document Id: [id number] CDT!10 documented in this encounter Miscellaneous Notes Miscellaneous - Conversion, Historical Provider Ser - 11/05/2014 10:32 PM CDT Coding Summary-Paper Based CODING DATE: 11/14/2014 FINAL [place] [facility] STATUS: * Discharged to Home or Self Care PAYOR: Medicaid ADMIT DX: 784.0 Headache REASON FOR VISIT DX: 784.0 Headache FINAL DX: PRINCIPAL: 346.90 Migraine, Unspecified, without Mention of Intractable Migraine, without Mention of Status Migrainosus SECONDARY: PROCEDURES DOCTOR NAME DATE NOTE: The code number assigned matches the documented diagnosis and / or procedure in the patient's chart. However, the narrative phrase printed from the coding software may appear abbreviated, or result in slightly different terminology. Coded By: LEÓN HATCH Date Saved: 11/14/2014 03:36 pm Source: Transphorm Document Id: [id number] Miscellaneous - Sandhya Johnson R.N. - 11/05/2014 10:31 PM CDT Valuables/Belongings Valuables/Belongings Entered On: 11/05/2014 22:32 CDT Performed On: 11/05/2014 22:31 CDT by SANDHYA JOHNSON RN Valuables/Belongings Valuables/Belongings Grid Valuables with Patient Clothes, Patient Valuables : Pants, Shirt, Shoes Electronic Devices : Cell phone SANDHYA JOHNSON RN - 11/05/2014 22:31 CDT Source: [employer]orm Document Id: [id number] CDT!6 documented in this encounter Plan of Treatment Not on filedocumented as of this encounter Visit Diagnoses Not on filedocumented in this encounter Additional Health Concerns Assessment Noted Time PHQ-9 Depression Total Score: 1 06/13/2014 1:45 PM EMERGING TECHNOLOGIES DIRECTOR documented as of this encounter
--- OUTSIDE RECORDS SUMMARY | 2022-03-16 15:06 | XMS_ITS | Encounter Summary ---
:1980 Demographics Address [address] [place] [address] Mobile Phone Home Phone Email Address Preferred Language ENG Marital Status Single Baptism Affiliation Unknown Race White Ethnic Group Not or Author Organization [facility] Address [address] [place] [address] Care Team Providers Name Role Phone Unavailable Primary Care Provider Unavailable Reason for Referral MRI/CAT/PET Scan (Routine) - Closed Specialty Diagnoses / Procedures Referred By Contact Refer red To Contact Radiology Diagnoses Sinusitis Chronic Ie, Ronen Shah [place] Procedures CT Sinuses without IV Contrast CT Head and Maxillofacial without IV Contrast MT CT MAXFAC WO CNTRST MT CT HEAD/BRAIN WO CNTRST HC CT MAXFAC WO CNTRST HC CT HEAD/BRAIN WO CNTRST MT CT MAXFAC WO [facility] MT CT HEAD/BRAIN WO [facility] [address] MAXFAC WO CNTRST HC CT MAXFAC WO CNTRST MT CT MAXFAC WO [facility]ST [place] [phone] Referral ID Status Reason Start Date Expiration Date Visits Requ ested Visits Authorized [id number] Closed 08/21/2017 02/17/2018 1 1 Outpatient (Routine) - Closed Specialty Diagnoses / Procedures Referred By Contact Refer red To Contact Ophthalmology Diagnoses Blurred Vision Ie, Ronen Shah [place] [address] [place] [phone] Referral ID Status Reason Start Date Expiration Date Visits V isits Requested Authorized [id number] Closed Specialty 08/21/2017 02/17/2018 1 1 Services Required Reason for Visit Reason Comments Sinus Problem Appointment Request (Routine) - Closed Specialty Diagnoses / Procedures Referred By Contact Refer red To Contact Ophthalmology Referral ID Status Reason Start Date Expiration Date Visits Requ ested Visits Authorized [id number] Closed 08/21/2017 02/17/2018 1 Encounter Details Date Type Department Care Team Description 08/21/2017 Office Visit Department of Alyssa Sy, Blurred Vision (Primary Dx); Otorhinolaryngology in [place] Sinusitis Chronic; [place], [place] [address]ysphonia; [address] Polyp Vocal Cord; [place] [id number] [place], [place] Abuse Tobacco Smoking [phone] Social History Tobacco Use Types Packs/Day [...] or relatives? How often do you attend sikhism or More than 4 times per year 11/09/2020 mu-ism services? Do you belong to any clubs or No 11/09/2020 organizations such as sikhism groups, unions, fraternal or athletic groups, or [...] documented as of this encounter Progress Notes Ie, Ronen Shah, Braydon - 08/21/2017 2:15 PM CDT SUBJECTIVE CHIEF COMPLAINT / REASON FOR VISIT Dulce Lei is a 37 y.o. female who presents for evaluation of Sinus Problem. HISTORY OF PRESENT ILLNESS Dulce presents for recheck of sinus disease. She was last seen by myself on 08/07/2017. Diagnosed with acute on chronic pansinusitis, sinonasal polyposis, and vocal cord polyposis. Elected to proceed with 7 days of Levaquin in addition to a prednisone 40 mg with taper. Continue to use the Astelin and fluticasone. Initiated sinus rinses with additional budesonide twice daily. In clinic today, she reports that in regards to her nose and sinuses, she does feel significantly improved. She completed the Levaquin and prednisone taper. Now, she no longer has any nasal obstructionor purulent nasal drainage. However, she continues to have some thin clear rhinorrhea on occasion from both sides. The past 2-3 days, she has noted some mild recurrence in maxillary sinus pressure, pointing to both medial malar regions. She has been doing the sinus rinses with additional budesonide for the past 5 days. She feels that since initiating the budesonide rinses, she feels a sensation of ear fullness and ???wobbliness. She had a continues to have significant dysphonia. For the past 1 week, she feels that her voice is significantly worsened in comparison to her last visit. It seems to crack and has a strained quality.However, she has no sore throat, difficulty breathing, difficulty swallowing, or cough. Dulce reports that for the past 1 week, she has had progressive blurred vision in both eyes. It does not significantly fluctuate in character. She can identify any significant alleviating or aggravatingfactors. She continues to smoke about 1 pack per day. She has been waiting until her completion of the Levaquin and prednisone to initiate Chantix. REVIEW OF SYSTEMS Constitutional: Positive for fatigue. Negative for fever. Eyes: Positive for visual problems. Respiratory: Negative for coughing up mucus (phlegm) and dyspnea. OBJECTIVE PHYSICAL EXAM Constitutional: Appears alert Appears mildly ill and fatigued. Voice is harsh and strained. Otoscopic: Hearing is grossly normal Canals normal bilaterally. TMs intact and healthy. Good mobility with pneumatoscopy bilaterally. No fluid or infection appreciated. Nose: The external nose is without significant lesions or masses PROCEDURE: Flexible nasal and laryngeal endoscopy. In order to evaluate the chief complaint, a flexible endoscopy was performed as a separate identifiable procedure. 4% lidocaine and 0.05% oxymetazoline was instilled into the right and left nares. A flexible scope was passed. The entire upper aerodigestive tract was closely examined, specifically the nasopharynx, oropharynx including base of tongue and vallecula, and hypopharynx. The larynx was examined, specifically the supraglottis, true vocal folds, and subglottis. Vocal fold adduction and abduction were assessed. The true vocal folds, arytenoids, and interarytenoid spaces were visualized to confirm presence or absence of erythema, edema, or str uctural lesions. The scope was removed. NASAL CAVITY: Mild rightward septal deflection. Mild amount of stringy mucus in the anterior nasal cavities bilaterally. Large left maxillary antrostomy. Significant improvement in polyp burden. Evidence of previous ethmoidectomy. Very thick clear mucus noted around the right ethmoid region. Visualized right maxillary antrostomy appears healthy and without purulence. NASOPHARYNX: Mild amount of clear bubbly secretions in the nasopharynx. HYPOPHARYNX: Normal LARYNX: Bilateral diffuse vocal cord polyposis, consistent with Olivia edema. Normal movement. Oral Cavity/Oropharynx: Normal oral cavity Oropharynx: Normal oropharynx Cardiovascular: Upper extremities are well perfused Pulmonary/Chest: Respirations have grossly normal rate and effort Lymphadenopathy: No cervical lymphadenopathy Neurological: She is alert Facial strength is grossly normal and symmetric Skin: Skin is normal temperature Psychiatric: Affect appears appropriate ASSESSMENT / PLAN 1. Chronic sinusitis. Reassured patient that there are no signs of continual infection. However, shestill has some residual symptoms. I feel it would be valuable at this time to obtain an updated CT. Recommended that she continue using the budesonide rinses twice daily in addition to both nasal sprays. She is in agreement, orders were placed. [facility] she would like to proceed with this. Order was placed. 2. Olivia's edema 3. Dysphonia. Likely related to 2 with strong correlation to her significant smoking history. Discussed options including watchful waiting with recheck in about 6-8 weeks verses [facility] for [facility] discussion of surgical intervention. At this time, she would like to pursue smoking cessation and have her vocal cords rechecked in about 8 weeks. Strongly encouraged her to return for re-evaluation sooner if she develops any new or worsening symptoms. 4. Blurred vision. Referral to Ophthalmology was placed. Patient expressed understanding, denied additional questions, and is in agreement today's plan. This note was done with a speech recognition program. It may contain some errors. documented in this encounter Plan of Treatment Scheduled Referrals Name Type Priority Associated Order Schedule Diagnoses Ophthalmology - Outpatient Referral Routine Blurred Vision Exp ected: General consult 08/21/2017 (clinic) (Approximate), Expires: 08/21/2020 documented as of this encounter Results CT Sinuses without IV [...] documented in this encounter Visit Diagnoses Diagnosis Blurred Vision - Primary Sinusitis Chronic Dysphonia Polyp Vocal Cord Abuse Tobacco Smoking Sinusitis Chronic documented in this encounter Additional Health Concerns Assessment Noted Time PHQ-9 Depression Total Score: 1 06/13/2014 1:45 PM DIRECTOR DIGITAL documented as of this encounter
--- OUTSIDE RECORDS SUMMARY | 2022-03-16 15:06 | XMS_ITS | Encounter Summary ---
:1980 Author Organization [facility] Address [address] [place] [address] Care Team Providers Name Role Phone Unavailable Primary Care Provider Unavailable Encounter Details Date Type Department Care Team Description 11/11/2016 [facility] ED Wendy Champion M.D. [address] [place], [place] [address] [phone] (Wo rk) Social History [...] Sign Reading Time Taken Comments Blood Pressure 127/80 11/11/2016 4:22 PM CDT Pulse 70 11/11/2016 4:22 PM CDT Temperature - - Respiratory Rate 18 11/11/2016 4:22 PM CDT Oxygen Saturation - - Inhaled Oxygen Concentration - - Weight - - Height - - Body Mass Index - - documented in this encounter Discharge Summaries Jessica Bull R.N. - 11/11/2016 4:51 PM CDT ED Discharge Instructions [address] [address] Name: CARTER LEI Date of : 1980 12:00 AM Visit Date: 11/11/2016 4:06 PM [facility] Number: [phone] Address: [address] [place] [phone] Primary Care Provider: PCP, ELSEWHERE IMPORTANT: [facility] in [place] would like to thank you for allowing us to assist you with your healthcare needs. The following includes patient education materials and informationregarding your injury/illness. Diagnosis: Migraine Headache (MEDRANO) NOS Follow-Up Instructions: With: Address: When: ELSEWHERE PCP Within As Needed Your Upcoming Appointments: Date Time Location Provider [...] ?? Difficulty with speech or vision ?? [phone] [facility], [address] [place] [address]. All rights reserved. This information is not [...] if you dont have one. Go to [email or web address] and click on Create Your Account. Then, follow the directions to complete the online form. Youll be asked for your [facility] number which you can find at the top of this document. ED Tests and Procedures: Order Status Discharge Prescriptions & Home Medications: Medication/Strength Dose Route Frequency Indications/Special Instructions/Comments/Notes ketorolac (ketorolac 10 mg oral tablet) 10 mg Oral four times a day levonorgestrel (Mirena 52 mg intrauteral device) 52 mg Intrauteral once [facility] [id number] [phone] ibuprofen (ibuprofen 200 mg oral [...] arrange a ride home with a responsible alliance party. RODRICK Ace GINA MARIE , or responsible alliance party have received this information and my questions have been answered. I have discussed any challenges I see with this plan with the nurse or physician. Patient Signature or Responsible Green Party/Relationship Date Time Provider Signature Date Time [...] arrange a ride home with a responsible alliance party. I, CARTER LEI , or responsible alliance party have received this information and my questions have been answered. I have discussed any challenges I see with this plan with the nurse or physician. Patient Signature or Responsible Green Party/Relationship Date Time Provider Signature Date Time Source: PathJump Document Id: [id number] Jessica Bull R.N. - 11/11/2016 4:51 PM CDT ED Depart Summary [facility] Emergency Department Clinical Discharge Summary PERSON INFORMATION Name CARTER LEI Age 36 Years 1980 12:00 AM Sex Female Language Kazakh PCP PCP, ELSEWHERE Marital Status Single Visit Id Visit Reason Headache; migraine Specialty Enc Type Emergency Med Service Emergency Medicine Referred by Track Group [facility] ED Discharge 11/11/2016 4:51 PM Tracking Id [id number] Checkout 11/11/2016 4:51 PM Checkin 11/11/2016 4:06 PM Acuity 3 -Urgent Dispo Type * Discharged to Home or Self Care Arrival 11/11/2016 4:06 PM Reg Status Complete LOS 000 00:45 Address: [address] [place] [address] 1 [facility] [phone] Comment: PROVIDER INFORMATION Provider Role Provider Contact Time ANGEL CHAMPION MD ED Provider 11/11/16 16:08 YANIRA GAMBLE RN ED Nurse 11/11/16 16:35 DIAGNOSIS Migraine Headache (MEDRANO) NOS Comment: PATIENT EDUCATION INFORMATION Instructions: HEADACHE, Migraine (Classical) Follow up: With: Address: When: ELSEWHERE PCP Within As Needed Source: PathJump Document Id: [id number] Jessica Bull R.N. - 11/11/2016 4:49 PM CDT ED Disposition Summary ED Disposition Summary Entered On: 11/11/2016 16:50 CDT Performed On: 11/11/2016 16:49 CDT by JESSICA BULL RN ED Disposition Summary Printed Discharge Instructions Given to Patient : Yes Patient Status at Discharge from ED : Improved 30 Minutes Critical Care : No JESSICA BULL RN - 11/11/2016 16:49 CDT Source: PathJump Document Id: [id number] CDT!5 documented in this encounter Medications at Time [...] a day. documented as of this encounter ED Notes Yanira Gamble R.N. - 11/11/2016 4:44 PM CDT ED Pain Assessment ED Pain Assessment Entered On: 11/11/2016 16:44 CDT Performed On: 11/11/2016 16:44 CDT by GAMBLE, YANIRA L RN Pain Assessment Pain Symptoms : Yes YANIRA GAMBLE Parvez RN - 11/11/2016 16:44 CDT Pain Scale Pain Scale Verbal 0-10 : Open GAMBLEYANIRA FREEMAN Parvez RN - 11/11/2016 16:44 CDT Pain Pain Assessment Grid Pain 1 Intensity : 5 YANIRA GAMBLE RN - 11/11/2016 16:44 CDT Source: [facility]) Document Id: [id number] CDT!9 Angel Champion M.D. - 11/11/2016 4:38 PM CDT Headache Patient: CARTER LEI Age: 36 years Sex: Female : 1980 Author: ANGEL CHAMPION MD Attachments: None Associated Diagnosis: Migraine Headache (MEDRANO) NOS Basic Information Additional information: Chief Complaint from Nursing Triage Note : Chief Complaint Description 11/11/2016 16:23 CDT Chief Complaint Description see triage 11/11/2016 16:22 CDT Chief Complaint Description Pt comes in with headache since last night. Home migraine meds aren't working. . History of Present Illness Ms. Lie is a very pleasant 36-year-old female who presents to the emergency department for evaluation of a headache. Headache is consistent with previous migraine headaches. Symptom onset was yesterday evening. The headache was insidious in onset, she describes as a throbbing pain throughout her head. She has had no fevers, double vision, or neck pain. She has had no vomiting. She has had photophobia as well as some nausea. She denies any exacerbating factors otherwise. She tried taking oral Toradol but did not receive much relief and so she comes to the emergency department for evaluation. No other alleviating factors. Denies any other concerns. Review of Systems Pertinent positive and negatives per HPI. All other systems were reviewed and are negative. Health Status Allergies: Allergic Reactions (Selected) Severity Not Documented Cipro- No reactions were documented. Nonallergic Reactions (Selected) Moderate Augmentin XR- Gi distress. Severity Not Documented Quinolone antibiotics- No reactions were documented. Silicone- No reactions were documented.. Past Medical/ Family/ Social History Medical history: Active Migraine headache (346.90): Onset on 04/17/1989 at 8 years. 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 Resolved. Comments: - Bladder pain Sinusitis (473.9): Onset on 05/19/2000 at 19 years. Resolved.. Surgical history: Colonoscopy ([id number]) on 07/05/2016 at 36 Years. Dilation and curettage ([id number]) on 03/26/2013 at 32 Years. Endometrial sampling (biopsy) with or without endocervical sampling (biopsy), without cervical dilation, any method (separate procedure) ([id number]) on 12/09/2009 at 29 Years. ENT (ABSTRACTED) - 09/13/01 - Sinus surgery x 2 on 09/13/2001 at 21 Years. Tonsillectomy with adenoidectomy ([id number]) on 04/17/1994 at 13 Years. ENT (ABSTRACTED) - age 8 - tubes placed as child on 1980 at 8 Days.. Family history: Liver Mother Comments: 08/16/2010 09:57 - JENNIFER LIN LPN Liver failure Diabetes mellitus Mother Asthma Sister Hypertension Father MEDRANO - Headache Father . Physical Examination Vital Signs: Vital Signs 11/11/2016 16:22 CDT Temperature Core 36.5 DegC Peripheral Pulse Rate 70 /min Respiratory Rate 18 /min SpO2 97 % Systolic Blood Pressure 127 mmHg Diastolic Blood Pressure 80 mmHg Mean Arterial Pressure 96 mmHg , SpO2 11/11/2016 16:22 CDT SpO2 97 % . CONSTITUTIONAL: --- Vital signs reviewed. EYES: --- Conjunctivae and lids normal. --- Pupils equal and round, normal in size. ENT AND MOUTH: --- Ears, nose, mouth normal in appearance. --- Moist mucous membranes. NECK: --- Symmetric, supple. --- Midline trachea. --- No meningismus. CARDIOVASCULAR: --- 2+ radial pulse. --- Extremities are warm and well perfused. RESPIRATORY: --- No increased respiratory effort. --- Speaking in full sentences. ABDOMEN: --- Non-distended. MUSCULOSKELETAL: --- Head is atraumatic. --- No obvious injuries, wounds, deformities, of the chest, abdomen, upper and lower extremities. SKIN: --- Skin is warm and dry. Without areas of warmth or erythema NEUROLOGIC: --- Speech normal. Alert and oriented. --- No focal motor or sensory deficits. Medical Decision Making Ms. Lei is a very pleasant 36-year-old female who presents to the emergency department for evaluation of a headache. This is consistent with her previous migraines. She has a normal neurologic examand has no red flag symptoms for a no other emergent etiology of her headache including but not limited to an intracranial hemorrhage, SAND CUTTING MACHINE OPERATOR mass, idiopathic intracranial hypertension, or cavernous venous thrombosis. She has requested an IM injection rather than IV placement and IV medications. She has received IM Toradol with relief previously when seen in the ED, but has already taken Toradol. Given this, we proceeded with droperidol 2.5 mg IM, Benadryl 25 mg IM. She is feeling better on reassessment and will be discharged from the emergency department. She is instructed on the importance of good hydration and will return for any new concerns. She is comfortable with this plan and all questions have been answered. Impression and Plan Diagnosis Migraine Headache (MEDRANO) NOS (Discharge, Emergency medicine, Medical) Plan Condition: Improved. Disposition: Medically cleared, Discharged: to home. Patient was given the following educational materials: HEADACHE, Migraine (Classical), HEADACHE, Migraine (Classical). Follow up with: ELSEWHERE PCP Within As Needed. Counseled: Patient. Orders: Launch Orders Patient Care: Discharge ED Patient (Order Processing): 11/11/2016 16:46 CDT. Electronically Signed By: ANGEL CHAMPION MD On: 11/11/2016 04:46 PM Modified by and Electronically Signed by: ANGEL CHAMPION MD On: 11/11/2016 04:46 PM Source: PathJump Document Id: [id number]} Yanira Gamble R.N. - 11/11/2016 4:23 PM CDT ED Primary Assessment Document Has Been Updated ED Primary Assessment Entered On: 11/11/2016 16:24 CDT Performed On: 11/11/2016 16:23 CDT by AYNIRA GAMBLE RN Reason For Visit (As Of: 11/11/2016 16:24:47 CDT) Problems(Active) Acne vulgaris (ICD-9-CM :706.1 ) [...] Onset Date: 08/22/2011 ; Recorder: JANAY WAYNE APRN, DNP, CNP; Confirmation: Confirmed ; Classification: Medical ; Code: 477.9 ; Last Updated: 08/22/2011 13:54 CDT ; Life Cycle Status: Active ; Responsible Provider: JANAY WAYNE APRN, DNP, CNP; Vocabulary: ICD-9-CM Anxiety State, Unspecified (ICD-9-CM :300.00 ) Name of Problem: Anxiety State, Unspecified ; Onset Date: 08/22/2011 ; Recorder: JANAY WAYNE APRN, DNP, CNP; Confirmation: Confirmed ; Classification: Medical ; Code: 300.00 ; Last Updated: 08/22/2011 13:53 CDT ; Life Cycle Status: Active ; ResponsibleProvider: JANAY WAYNE APRN, DNP, LANIE; Vocabulary: ICD-9-CM Migraine headache (ICD-9-CM :346.90 ) Name of Problem: Migraine headache ; Onset Date: 04/17/1989 ; Recorder: SANDRINE FULLER RN; Confirmation: Confirmed ; Classification: Medical ; Code: 346.90 ; Contributor System: PowerChart ; Last Updated: 04/12/2011 17:14 BELL ATTENDANT ; Life Cycle Date: 06/10/2010 ; Life Cycle Status: Active ; Responsible Provider: SANDRINE FULLER RN; Vocabulary: ICD-9-CM ; Comments: 06/10/2010 16:12 - SANDRINE FULLER RN no known date of onset Migraine Headache (MEDRANO) NOS (ICD-9-CM :346.90 ) Name of Problem: Migraine Headache (MEDRANO) NOS ; Recorder: GUANAKITO JOHNSON RN; Confirmation: Confirmed ; Classification: Nursing ; Code: 346.90 ; Contributor System: [employer] ; Last Updated: 11/05/2014 21:26 CDT ; Life Cycle Date: 11/05/2014 ; Life Cycle Status: Active ; Responsible Provider: GUANAKITO JOHNSON RN; Vocabulary: ICD-9-CM Thoracic or Lumbosacral Neuritis or Radiculitis, Unspecified (ICD-9-CM :724.4 ) Name of Problem: Thoracic or Lumbosacral Neuritis or Radiculitis, Unspecified ; Onset Date: 11/29/2007 ; Confirmation: Confirmed ; Classification: UPDATE NEEDED ; Code: 724.4 ; Contributor System: [email or web address] ; Last Updated: 07/13/2013 18:13 CDT ; Life Cycle Status: Active ; Vocabulary: ICD-9-CM ; Comments: - Lumbarradiculopathy Tobacco Use Disorder (ICD-9-CM :305.1 ) Name of Problem: Tobacco Use Disorder ; Onset Date: 08/22/2011 ; Recorder: JANAY WAYNE APRN, DNP, CNP; Confirmation: Confirmed ; Classification: Medical ; Code: 305.1 ; Last Updated: 08/22/2011 13:54 CDT ; Life Cycle Status: Active ; Responsible Provider: JANAY WAYNE APRN, DNP, LANIE; Vocabulary: ICD-9-CM Diagnoses(Active) Headache Date: 11/11/2016 ; Diagnosis Type: Reason For Visit ; Confirmation: Complaint of ; ClinicalDx: Headache ; Classification: Medical ; Clinical Service: Emergency medicine ; Code: PNED ; Probability: 0 ; Diagnosis Code: [id number] Triage Chief Complaint Description : see triage Mode of Arrival ED : Private vehicle, Ambulatory Track : Medical Languages : Kazakh Treatments Prior to Arrival : None Are you ? : No Is Patient Female and 13-50 no hysterectomy : Yes Status : Patient denies YANIRA GAMBLE RN - 11/11/2016 16:23 CDT Pain Assessment Pain Symptoms : Yes YANIRA GAMBLE RN - 11/11/2016 16:23 CDT Immunizations Immunizations Current : Yes YANIRA GAMBLE RN - 11/11/2016 16:23 CDT Respiratory Airway : Patent Respirations : Unlabored Respiratory Pattern : Regular YANIRA GAMBLE RN - 11/11/2016 16:23 CDT Cardiovascular Heart Rhythm : Regular Skin Color : Normal for ethnicity Skin Description : Dry Skin Temperature : Warm GAMBLEYANIRA RN - 11/11/2016 16:23 CDT Neurological Last Well Time Known : Not applicable Level of Consciousness : Alert Orientation : Oriented x 3 Characteristics of Speech : Appropriate for age YANIRA GAMBLE RN - 11/11/2016 16:23 CDT ED Psychosocial Affect/Behavior : Calm Domestic Abuse Concerns : None Behavioral Health Screen/Safety Assmt : No YANIRA GAMBLE RN - 11/11/2016 16:23 CDT Gastrointestinal Nutrition ED : Adequate YANIRA GAMBLE RN - 11/11/2016 16:23 CDT Musculoskeletal Fall Prevention Education Provided : YANIRA LUONG RN - 11/11/2016 16:23 CDT Social Habits Exposure to Tobacco Smoke : Patient smokes Smoking Status : Current every day smoker Tobacco 2A : Yes Tobacco Use/Currently Using : Yes Tobacco Use/Last 30 Days : Yes Tobacco Use/Last 12 months : Yes Type : Cigarettes: More than 40 per day Tobacco Use/Advised to Quit : Yes YANIRA GAMBLE RN - 11/11/2016 16:23 CDT Alcohol Use Grid Alcohol Use : No No YANIRA GAMBLE RN - 11/11/2016 16:23 CDT YANIRA GAMBLE RN - 11/11/2016 16:23 CDT Recreational Drug Use Grid Drug Use : None YANIRA GAMBLE RN - 11/11/2016 16:23 CDT Source: [facility] POWERCHART Document Id: [id number] CDT!53 Yanira Gamble R.N. - 11/11/2016 4:22 PM CDT ED Triage Assessment Document Has Been Updated ED Triage Assessment Entered On: 11/11/2016 16:23 CDT Performed On: 11/11/2016 16:22 CDT by YANIRA GAMBLE RN Reason For Visit (As Of: 11/11/2016 16:23:43 CDT) Problems(Active) Acne vulgaris (ICD-9-CM :706.1 ) [...] Onset Date: 08/22/2011 ; Recorder: JANAY WAYNE APRN, DNP, CNP; Confirmation: Confirmed ; Classification: Medical ; Code: 477.9 ; Last Updated: 08/22/2011 13:54 CDT ; Life Cycle Status: Active ; Responsible Provider: JANAY WAYNE APRN, DNP, LANIE; Vocabulary: ICD-9-CM Anxiety State, Unspecified (ICD-9-CM :300.00 ) Name of Problem: Anxiety State, Unspecified ; Onset Date: 08/22/2011 ; Recorder: JANAY WAYNE APRN, DNP, CNP; Confirmation: Confirmed ; Classification: Medical ; Code: 300.00 ; Last Updated: 08/22/2011 13:53 CDT ; Life Cycle Status: Active ; ResponsibleProvider: JANAY WAYNE APRN, DNP, LANIE; Vocabulary: ICD-9-CM Migraine headache (ICD-9-CM :346.90 ) Name of Problem: Migraine headache ; Onset Date: 04/17/1989 ; Recorder: SANDRINE FULLER RN; Confirmation: Confirmed ; Classification: Medical ; Code: 346.90 ; Contributor System: PowerChart ; Last Updated: 04/12/2011 17:14 BELL ATTENDANT ; Life Cycle Date: 06/10/2010 ; Life Cycle Status: Active ; Responsible Provider: SANDRINE FULLER RN; Vocabulary: ICD-9-CM ; Comments: 06/10/2010 16:12 - SANDRINE FULLER RN no known date of onset Migraine Headache (MEDRANO) NOS (ICD-9-CM :346.90 ) Name of Problem: Migraine Headache (MEDRANO) NOS ; Recorder: GUANAKITO JOHNSON RN; Confirmation: Confirmed ; Classification: Nursing ; Code: 346.90 ; Contributor System: [employer] ; Last Updated: 11/05/2014 21:26 CDT ; Life Cycle Date: 11/05/2014 ; Life Cycle Status: Active ; Responsible Provider: GUANAKITO JOHNSON RN; Vocabulary: ICD-9-CM Thoracic or Lumbosacral Neuritis or Radiculitis, Unspecified (ICD-9-CM :724.4 ) Name of Problem: Thoracic or Lumbosacral Neuritis or Radiculitis, Unspecified ; Onset Date: 11/29/2007 ; Confirmation: Confirmed ; Classification: UPDATE NEEDED ; Code: 724.4 ; Contributor System: [facility]_[email or web address] ; Last Updated: 07/13/2013 18:13 CDT ; Life Cycle Status: Active ; Vocabulary: ICD-9-CM ; Comments: - Lumbarradiculopathy Tobacco Use Disorder (ICD-9-CM :305.1 ) Name of Problem: Tobacco Use Disorder ; Onset Date: 08/22/2011 ; Recorder: JANAY WAYNE APRN, DNP, LANIE; Confirmation: Confirmed ; Classification: Medical ; Code: 305.1 ; Last Updated: 08/22/2011 13:54 CDT ; Life Cycle Status: Active ; Responsible Provider: JANAY WAYNE APRN, DNP, WASTE RECYCLER; Vocabulary: ICD-9-CM Diagnoses(Active) Headache Date: 11/11/2016 ; Diagnosis Type: Reason For Visit ; Confirmation: Complaint of ; ClinicalDx: Headache ; Classification: Medical ; Clinical Service: Emergency medicine ; Code: PNED ; Probability: 0 ; Diagnosis Code: [id number] Triage Chief Complaint Description : Pt comes in with headache since last night. Home migraine meds aren't working. Information Given By : Patient Present in Room During Exam/Procedure : Alone Mode of Arrival ED : Private vehicle, Ambulatory Track : Medical Languages : Kazakh Vital Signs Assessed : Yes GCS Assessed : Yes Treatments Prior to Arrival : None Are you ? : No Is Patient Female and 13-50 no hysterectomy : Yes Status : Patient denies YANIRA GAMBLE ALFONZO - 11/11/2016 16:22 CDT Vital Signs Temperature Core : 36.5 DegC(Converted to: 97.7 DegF) Peripheral Pulse Rate : 70 /min Respiratory Rate : 18 /min Systolic Blood Pressure : 127 mmHg Diastolic Blood Pressure : 80 mmHg NIBP Mean : 96 mmHg SpO2 : 97 % YANIRA GAMBLE ALFONZO - 11/11/2016 16:22 CDT [place] Coma Eye Opening Response [place] : Spontaneously Best Verbal Response [place] : Oriented Best Motor Response [place] : Obeys simple commands [place] Coma Score : 15 YANIRA GAMBLE ALFONZO - 11/11/2016 16:22 CDT Pain Assessment Pain Symptoms : Yes YANIRA GAMBLE Parvez MEJÍA - 11/11/2016 16:22 CDT Comfort Measures Comfort Measures Grid Rest : Yes YANIRA GAMBLE Parvez MEJÍA - 11/11/2016 16:22 CDT ED Physician Notification Time ED Physician Notification Time : 11/11/2016 16:23 CDT YANIRA GAMBLE Parvez MEJÍA - 11/11/2016 16:22 CDT MORALES MORALES Level 1 : No MORALES Level 2 : No MORALES Level 3 : Many Vital Signs MORALES : No YANIRA GAMBLE Parvez MEJÍA - 11/11/2016 16:22 CDT DCP GENERIC CODE Tracking Acuity : 3 -Urgent Tracking Group : [facility] ED YANIRA GAMBLE Parvez RN - 11/11/2016 16:22 CDT Allergy (As Of: 11/11/2016 16:23:44 CDT) Allergies (Active) Augmentin XR Estimated Onset Date: Unspecified ; Reactions: GI distress ; Created By: MYRNA EDMONDS MD; Reaction Status: Active ; Category: Drug ; Substance: Augmentin XR ; Type: Intolerance ; Severity: Moderate ; Updated By: MYRNA EDMONDS MD; Source: Patient ; Reviewed Date: 11/11/2016 16:23 CDT Cipro Estimated Onset Date: Unspecified ; Created By: YASMANY CAVANAUGH RN; Reaction Status: Active ; Category: Drug ; Substance: Cipro ; Type: Allergy ; Updated By: YASMANY CAVANAUGH RN; Reviewed Date: 11/11/2016 16:23 CDT quinolone antibiotics Comments: Comment 1: QUINOLONES - Cipro; vomiting ; Created By: Contributor_system, [facility]_HX_ALRG_SYS; Reaction Status: Active ; Category: Drug ; Substance: quinolone antibiotics ;Type: Unknown ; Updated By: Contributor_system, [facility]_HX_ALRG_SYS; Reviewed Date: 11/11/2016 16:23 CDT Silicone Estimated Onset Date: Unspecified ; Created By: JENNIFER FRANCIS RN; Reaction Status: Active ; Category: Drug ; Substance: Silicone ; Type: Sensitivity ; Updated By: JENNIFER FRANCIS RN; Reviewed Date: 11/11/2016 16:23 CDT Immunizations Immunizations Current : Yes YANIRA GAMBLE RN - 11/11/2016 16:22 CDT Source: [facility] ([employer]) Document Id: [id number] CDT!44 documented in this encounter Miscellaneous Notes Miscellaneous - Conversion, Historical Provider Ser - 11/11/2016 4:51 PM CDT Coding Summary-Paper Based CODING DATE: 11/18/2016 FINAL [facility] STATUS: * Discharged to Home or Self Care PAYOR: Medicaid ADMIT DX: R51 Headache REASON FOR VISIT DX: R51 Headache FINAL DX: PRINCIPAL: G43.909 Migraine, unspecified, not intractable, without status migrainosus SECONDARY: F17.210 Nicotine dependence, cigarettes, uncomplicated Z88.1 Allergy status to other antibiotic agents status PROCEDURES DOCTOR NAME DATE NOTE: The code number assigned matches the documented diagnosis and / or procedure in the patient's chart. However, the narrative phrase printed from the coding software may appear abbreviated, or result in slightly different terminology. Coded By: KESHAV GANDHI Date Saved: 11/18/2016 12:50 pm Source: [facility] ([employer]) Document Id: [id number] Miscellaneous - Jessica Bull R.N. - 11/11/2016 4:50 PM CDT Valuables/Belongings Valuables/Belongings Entered On: 11/11/2016 16:50 CDT Performed On: 11/11/2016 16:50 CDT by JESSICA BULL RN Valuables/Belongings Home Medication Disposition : Sent home with family JESSICA BULL RN - 11/11/2016 16:50 CDT Source: PathJump Document Id: [id number] CDT!3 Miscellaneous - Jessica Bull R.N. - 11/11/2016 4:06 PM CDT Facility Charge Ticket 2.0 11.0 DX Facility Charge Ticket 2.0 11.0 DX Entered On: 11/11/2016 16:51 CDT Performed On: 11/11/2016 16:06 CDT by JESSICA BULL RN Facility Charge Ticket 2.0 11.0 DX ED Other Charges : Standard ED Encounter TVL Level Translated RTF : Headache TVL:4 TVL Level for Facility Charge Ticket : Level 4 Arrival Mode Calc : 1 Mode of Arrival ED : Private vehicle, Ambulatory [place] Mode of Arrival Interpreted : Standard [place] Process Management : None [place] Order Management : None 30 Minutes Critical Care : No Nursing Notes RTF : Triage Forms ED Triage Assessment,11/11/16 16:22,YANIRA GAMBLE RN Nursing Notes ED Primary Assessment,11/11/16 16:23,YANIRA GAMBLE RN ED Pain Assessment,11/11/16 16:44,YANIRA GAMBLE RN [place] Nursing Assessment : Triage and 1-2 nursing assessments [place] Disposition : Discharge Disposition RTF : discharge [place] Total Points with Diagnosis Control : 7 [place] Visit Level : 47237 Level 3 Treatments Prior to Arrival : None JESSICA BULL RN - 11/11/2016 16:50 CDT Source: PathJump Document Id: [id number]!18 documented in this encounter Plan of Treatment Not on filedocumented as of this encounter Visit Diagnoses Not on filedocumented in this encounter Additional Health Concerns Assessment Noted Time PHQ-9 Depression Total Score: 1 06/13/2014 1:45 PM BELL ATTENDANT documented as of this encounter
--- OUTSIDE RECORDS SUMMARY | 2022-03-16 15:06 | XMS_ITS | Encounter Summary ---
:1980 Author Organization [facility] Address [address] [place] [address] Care Team Providers Name Role Phone Unavailable Primary Care Provider Unavailable Encounter Details Date Type Department Care Team Description 08/08/[address] [facility] Sup[facility]gado [facility] [address] [place] [address] [address] [place] [address] [place] [phone] Social History Tobacco Use Types Packs/Day Years [...] How often do you attend anglican or More than 4 times per year 11/09/2020 confucianism services? Do you belong to any clubs or No 11/09/2020 organizations such as anglican groups, unions, fraternal [...] slept in a senior living (including now)? Sex Assigned at Date Recorded Not on file documented as of this encounter Plan of Treatment Not on filedocumented as of this encounter Visit Diagnoses Not on filedocumented in this encounter Additional Health Concerns Assessment Noted Time PHQ-9 Depression Total Score: 1 06/13/2014 1:45 PM FRUIT CULLER documented as of this encounter
--- OUTSIDE RECORDS SUMMARY | 2022-03-16 15:06 | XMS_ITS | Encounter Summary ---
:1980 Author Organization [facility] Address [address] [place] [address] Care Team Providers Name Role Phone Unavailable Primary Care Provider Unavailable Reason for Visit Reason Comments Sinus Problem Outpatient (Routine) - Closed Specialty Diagnoses / Procedures Referred By Contact Refer red To Contact Otorhinolaryngology Diagnoses Sinus Disease Sinusitis Alia Roberts [facility] C[facility] [address] [place], [place] [address] Referral ID Status Reason Start Date Expiration Date Visits V isits Requested Authorized [id number] Closed Specialty 08/05/2017 02/01/2018 1 1 Services Required Encounter Details Date Type Department Care Team Description 08/07/2017 Comprehensive Visit Department of Dana Roberts, C.N.P. [address] [place] [address] Sinusitis Chronic (Primary Dx); Otorhinolaryngology in [place], Ronen Shah [address] [place] [id number] Polyp Sinus; [place], [place] Sinusitis Acute Ethmoidal; [address] Polyp Nasal; [place] [address] Antrostomy Sinus Status Post ; [phone] Abuse Tobacco S moking; Polyp Vocal Cor d Social History Tobacco Use Types Packs/Day Years [...] Sign Reading Time Taken Comments Blood Pressure 116/73 08/07/2017 8:56 AM CDT Pulse 81 08/07/2017 8:56 AM CDT Temperature 36.4 ??C (97.5 ??F) 08/07/2017 8:56 AM CDT Respiratory Rate - - Oxygen Saturation - - Inhaled Oxygen Concentration - - Weight - - Height - - Body Mass Index - - documented in this encounter Consult Notes [place], Ronen Shah, P.A. - 08/07/2017 9:00 AM CDT SUBJECTIVE CHIEF COMPLAINT / REASON FOR VISIT Dulce Lei is a 37 y.o. female who presents for evaluation of Sinus Problem. HISTORY OF PRESENT ILLNESS Dulce presents for evaluation of sinus disease. She has a many year history of recurrent/chronic sinus disease. However, her symptoms have been very significant for the past 6 weeks. Symptoms include severe postnasal drip, which causes her to have a feeling of drowning and resulting cough. The cough isworse at night. Endorses bilateral ear plugging, left slightly worse than right. Associated sensation of hearing loss. Intermittently, her ears will ???clear?? and hearing will return to normal. Endorses productive cough, thick and yellow. She also admits to significant rhinorrhea, bilaterally. Describes it as colored and thick. Associated decrease in sense of smell and harsh dysphonia. Admits to facial pressure, primarily overlying both maxillary sinuses, slightly over frontal sinuses as well. Prior to 6 weeks ago, she was feeling reasonably well. Treatments thus far include cefdinir, 2 rounds ofZithromax, Medrol Dosepaks. She is currently on the 2nd round of Zithromax and finished a Medrol Dosepak yesterday. She does feel improved, however continues to feel ???slightly miserable?? . Started taking Flonase twice daily over the past 4 days, feels this is very helpful. Admits that she did use Afrin for 3 days, also some Sudafed for about 2 weeks. However, discontinued these at the recommendation of her primary care provider. Has not been using any sinus rinses. Sinus CT done on 07/31/2017 is reviewed and appreciated. It shows near complete opacification with mucosal thickening in frothy secretions in both frontal sinuses. Moderate mucosal thickening of bilateral ethmoid sinuses. Evidence of previous right and left maxillary antrostomy, widely opened the nasal cavity. Moderate to marked mucosal thickening and/or polypoid material nearly completely opacifyingthe right and left maxillary sinuses. Frothy secretions and mucosal thickening of the right sphenoidsinus. Mild mucosal thickening of the left sphenoid sinus. Middle turbinates surgically absent. Incidental note impacted tooth midline maxillary alveolus appears to be inverted. She did speak with her dentist about the impacted tooth. They recommended no intervention as removalof this would be very difficult and is not likely to cause any complications without intervention. Past surgical history is significant for sinus surgery in [address] Wall in [place]. Based on description and CT scan, appears to have bilateral maxillary antrostomies, bilateral ethmoidectomies, and possibly removal of both middle turbinates. Significant smoking history. About 1 pack per day for many years. She denies any fever, sore throat, ear drainage. Denies heartburn, acid taste, dyspnea, and dysphagia. Dulce has experienced significant GI upset after taking Augmentin, strongly prefers to avoid this. Feels that amoxicillin is no longer effective for her. REVIEW OF SYSTEMS Constitutional: Negative for fever. Eyes: Negative for double vision. ENT: Positive for persistent hoarse voice and sinus congestion. Negative for difficulty hearing. Respiratory: Positive for coughing up mucus (phlegm). Negative for dyspnea. Cardiovascular: Negative for chest pain, pressure or tightness. Gastrointestinal: Negative for heartburn, nausea and vomiting. Neurological: Positive for headaches. PAST MEDICAL HISTORY No past medical history on file. The following portions of the patient's history were reviewed and updated as appropriate: allergies,current medications, family history, medical history, social history, surgical history and problem list. PAST SURGICAL HISTORY Past Surgical History: Procedure Laterality Date ??? DILATION AND CURETTAGE N/A 03/26/2013 Dilation and curettage ??? OTHER CONVERTED SHX (SEE COMMENT) N/A 04/21/2005 >Compound F Injection ??? OTHER CONVERTED SHX (SEE COMMENT) N/A 06/27/1988 Bilateral myringotomy with placement of Paparella tubes. ??? OTHER CONVERTED SHX (SEE COMMENT) N/A 03/28/2005 >Compound F Injection ??? TONSILLECTOMY AND ADENOIDECTOMY N/A 04/17/1994 Tonsillectomy with adenoidectomy FAMILY HISTORY Denies family history of hearing loss before age 50, bleeding disorders and anesthesia problems. SOCIAL HISTORY Smoking history significant for: 1 pack per day for many years. Smokeless tobacco use: None Alcohol use: None OBJECTIVE PHYSICAL EXAM Constitutional: Appears alert and well Voice is moderately harsh, normal volume. Head: Normal inspection and palpation Otoscopic: Hearing is grossly normal Right: External ear normal Left: External ear normal Canals normal bilaterally. TMs intact and healthy. Good mobility with pneumatoscopy bilaterally. No fluid or infection appreciated. Nose: The external nose is without significant lesions or masses Nasal cavities are widely patent upon initial examination bilaterally. A mild amount of stringy cloudy rhinorrhea is appreciated in the right anterior nasal cavity. PROCEDURE: Flexible nasal endoscopy. In order to evaluate the chief [...] presence or absence of erythema, edema, or structural lesions. The scope was removed. NASAL CAVITY: Moderate polypoid change noted along the medial aspect of the left middle turbinate. Widely patent left maxillary antrostomy. Extensive benign- appearing polyp growth lining the left maxillary sinus. Mild amount of cloudy nasal drainage throughout the left nasal cavity. Cloudy mucopus drainage at the entrance of the right maxillary antrostomy. Evidence of previous ethmoidectomies. Diffuse polypoid change throughout the right nasal cavity. Right maxillary sinus has moderate to severe benign polyp growth. NASOPHARYNX: Thick clear frothy mucus. Otherwise, normal. HYPOPHARYNX: Normal LARYNX: Mild polypoid change bilaterally. Normal vocal cord abduction and adduction. Oral Cavity/Oropharynx: Normal oral cavity Mucous membranes are moist Mild to moderate amount of thick cloudy postnasal drainage appreciated. Palpation of hard palate and maxillary alveolus is unremarkable. Eyes: External ocular movements are symmetric and full Neck: There is no neck mass on the right or left Thyromegaly absent Salivary glands normal Cardiovascular: Upper extremities are well perfused Pulmonary/Chest: Respirations have grossly normal rate and effort Lymphadenopathy: No cervical lymphadenopathy Neurological: She is alert No cranial nerve deficit III, IV, : EOM symmetric and full V1, V2, V3 sensation normal Facial strength is grossly normal and symmetric Right facial strength is normal in all divisions Left facial strength is normal in all divisions Shoulder strength is normal Tongue mobility is intact and normal Skin: Skin is normal temperature No facial rash noted Psychiatric: Affect appears appropriate Vitals reviewed ASSESSMENT / PLAN 1. Acute on chronic pansinusitis. 2. Sinonasal polyposis 3. Status post sinus surgery-2000 4. Tobacco abuse 5. 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 She has evidence of extensive polypoid change throughout both maxillary sinuses with some mild changes in both nasal cavities. We discussed a variety of options. At this time, she would like to proceed with maximal medical therapy to include Levaquin 750 mg for 7 days, prednisone 40 mg with taper, continue use of fluticasone,addition of Astelin nasal spray, re-initiation of sinus rinses several times daily, and addition of budesonide to her sinus rinses twice daily. Risks of each medication were discussed at length in clinic today. Proper use and application of the budesonide sinus rinses, oral steroids, and nasal sprays were reviewed. Risks of fluoroquinolones including the risk of tendon rupture was discussed. Recommended that she avoid any strenuous activity, sports, or heavy lifting for at least 2 weeks following completion of Levaquin. Risks oral steroids including immune suppression, gastric bleeding, avascular necrosis, insomnia, mood swings, and changes in appetite were reviewed. Prescriptions were these medications were sent to her pharmacy. Encouraged smoking cessation. She will talk with her primary care provider about starting some medication such as Chantix after her acute infection has resolved. Strongly recommended that she return for re-evaluation in about 4 weeks, sooner if she develops any new or worsening symptoms, certainly if she does not experience significant improvement in her symptoms following the antibiotic and steroid. Patient expressed understanding, denied additional questions, and is in agreement today's plan. This note was done with a speech recognition program. It may contain some errors. 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
--- OUTSIDE RECORDS SUMMARY | 2022-03-16 15:06 | XMS_ITS | Encounter Summary ---
:1980 Author Organization [facility] Address [address] [place] [address] Care Team Providers Name Role Phone Unavailable Primary Care Provider Unavailable Encounter Details Date Type Department Care Team Description 08/21/2017 Ancillary Procedure Department of Otorhinolaryngology Social History [...] More than 4 times per year 11/09/2020 jain services? Do you belong to any [...] Date/Time Associated Comments Diagnosis OTORHINOLARYNGOLOGY IMAGE Routine 08/21/2017 2:00 Results for this EXAM AM CDT procedure are i n the results section. documented in this encounter Results OTORHINOLARYNGOLOGY IMAGE EXAM (08/21/2017 2:00 AM CDT) Specimen (Source) Anatomical Location Collection Method / Collectio n Time Received Time / Laterality Volume Narrative [facility] - 08/21/2017 2:32 PM CDT This order has been created and [...] Depression Total Score: 1 06/13/2014 1:45 PM MEN'S LOCKER ROOM ATTENDANT documented as of this encounter
--- OUTSIDE RECORDS SUMMARY | 2022-03-16 15:06 | XMS_ITS | Encounter Summary ---
:1980 Author Organization [facility] Address [address] [place] [address] Care Team Providers Name Role Phone Unavailable Primary Care Provider Unavailable Reason for Visit Reason Comments Knee Pain pt fell while playing with k ids Encounter Details Date Type Department Care Team Description 03/10/2017 Emergency [facility] Martin Lopez, Sprain Knee Initial Department M.D. Left (Primary Dx) [id number] [address] [address] [place], [place] [phone] [address] Social History Tobacco Use Types Packs/Day [...] to pay for the very basics like G.ho.stw hat hard 11/09/2020 food, housing, medical care, [...] Sign Reading Time Taken Comments Blood Pressure 131/86 03/10/2017 5:07 PM MERCHANDISE ADJUSTMENT CLERK Pulse 75 03/10/2017 5:07 PM MERCHANDISE ADJUSTMENT CLERK Temperature 36.9 ??C (98.4 ??F) 03/10/2017 5:07 PM MERCHANDISE ADJUSTMENT CLERK Respiratory Rate 16 03/10/2017 5:07 PM MERCHANDISE ADJUSTMENT CLERK Oxygen Saturation 96% 03/10/2017 5:07 PM MERCHANDISE ADJUSTMENT CLERK Inhaled Oxygen Concentration - - Weight 88.9 kg (195 lb 15.8 oz) 03/10/2017 5:08 PM MERCHANDISE ADJUSTMENT CLERK Height 154.9 cm (5' 1) 03/10/2017 5:08 PM MERCHANDISE ADJUSTMENT CLERK Body Mass Index 37.03 03/10/2017 5:08 PM MERCHANDISE ADJUSTMENT CLERK documented in this encounter Medications at Time of Discharge Medication Sig Dispensed Refills Start Date End Date oxyCODONE (for_ROXICODONE) Take 1 tablet (5 mg 20 tablet 0 03/10/2017 03/20/2017 5 mg immediate release total) by mouth tablet every 6 (six) hours as needed for pain for up to 10 days. ACETAMINOPHEN ORAL Take 500 mg by 0 06/04/2013 mouth every 6 (six) hours as needed. ibuprofen Take 4 tablets by 0 04/22/2014 020 (for_ADVIL,MOTRIN) 200 mg mouth as needed. tablet ketorolac (for_TORADOL) 10 Take 1 tablet by 0 06/29/2019 mg tablet mouth 4 (four) times a day. documented as of this encounter ED Notes Martin Lopez M.D. - 03/10/2017 6:28 PM CST SUBJECTIVE CHIEF COMPLAINT/REASON FOR VISIT Knee Pain (pt fell while playing with kids) HISTORY OF PRESENT ILLNESS Fell onto hard pavement to landed on the left lateral part of her knee. Now has a lot of pain there and this is worse when weight bearing. Occurrence was just a couple hours ago. REVIEW OF SYSTEMS Eyes: Negative. Respiratory: Negative. Cardiovascular: Negative. Gastrointestinal: Negative. Endocrine: Negative. Musculoskeletal: Negative. Psychiatric/Behavioral: Negative. OBJECTIVE Initial Vitals [03/10/171706] Temperature Pulse Rate Heart Rate Resp Rate Blood Pressure SpO2 36.9 ??C 75 -- 16 131/86 96 % Pain Score 6 PHYSICAL EXAMINATION Constitutional: She appears well-nourished. HENT: Head: Normocephalic. Nose: Nose normal. Mouth/Throat: Mucous membranes are moist. Eyes: EOM are normal. Pulmonary/Chest: Effort normal. No respiratory distress. Musculoskeletal: She exhibits tenderness (tender over the left knee laterally at tibial plateau skinis intact no appreciable swelling). She exhibits no deformity. Neurological: She is oriented to person, place, and time. Skin: Skin is warm. Psychiatric: She has a normal mood and affect. ASSESSMENT/PLAN Impression and Plan Fall onto left knee with local pain mostly laterally. No evidence for fracture based on x-ray reviewthis however would not include internal knee derangement for meniscal injury. Plan will be for conservative management initially with ibuprofen and acetaminophen ice immobilization and crutches. Followup if not improved in a few days time with primary.. Reviewed and summarized previous medical records including: Radiology images/report. Radiology results: Personally reviewed the radiology image. Radiology interpretation: Normal ED Course Final Diagnoses: as of Mar 10 1836 Sprain Knee Initial Left Patient elected to receive oxycodone 20. Prescribed 5 mg also an Tristan wrap recommended and provided Martin Lopez M.D. 03/10/171835 Chrissie Gonzalez R.N. - 03/10/2017 5:12 PM CST Pt presents to ED with c/o left knee pain. Pt states she fell on concrete while playing with her kids earlier this morning. Chrissie Velez R.N. 03/10/17 1712 HANDISE ADJUSTMENT CLERK documented in this encounter Plan of Treatment Not on filedocumented as of this encounter Procedures Procedure Name Priority Date/Time Associated Comments Diagnosis DX KNEE LEFT 4+ RAD - Semiurgent 03/10/2017 6:15 Resul ts for this VIEWS (Fast; most ED PM MERCHANDISE ADJUSTMENT CLERK procedure are in patients; some the results inpatients) section. documented in this encounter Results DX Knee Left 4+ Views (03/10/2017 6:15 PM MERCHANDISE ADJUSTMENT CLERK) Anatomical Region Laterality Modality Lower Extremity, Knee Left Digital Radiograph y Specimen (Source) Anatomical Collection Method Collection Time Re ceived Time Location / / Volume Laterality 03/10/2017 8:34 PM MERCHANDISE ADJUSTMENT CLERK Impressions 03/10/2017 8:34 PM MERCHANDISE ADJUSTMENT CLERK IMPRESSION: There is knee joint effusion. No fracture or subluxation. Narrative 03/10/2017 8:34 PM MERCHANDISE ADJUSTMENT CLERK EXAM: DX KNEE LEFT 4+ VIEWS Procedure Note Vaughn Del Rosario M.D. - 03/10/2017 EXAM: DX KNEE LEFT 4+ VIEWS IMPRESSION: There is knee joint effusion . No fracture or subluxation. Martin [facility] ALFREDO PARNELL documented in this encounter Visit Diagnoses Diagnosis Sprain Knee Initial Left - Primary documented in this encounter Administered Medications Inactive Administered Medications - up to 3 most recent administrations Medication Order MAR Action Action Date Dose Rate Site ketorolac intramuscular Given 03/10/2017 5:52 PM 60 mg Left Ventrogluteal injection 60 mg MERCHANDISE ADJUSTMENT CLERK (for_TORADOL) 60 mg, intramuscular, Once, On Mon03/10/17 at 1741, For 1 dose, Adult IV push rate: Over 15 seconds. Peds IV push rate: Over 1 minute. 60 mg dose only for IM, not recommended for IV., Drug Monitoring Program: Pharmacist to adjust medication order based on comorbities and indication. documented in this encounter Active and Recently Administered Medications Times are shown in MERCHANDISE ADJUSTMENT CLERK. Scheduled Medication Order 03/08/2017 03/09/2017 03/10/2017 ketorolac intramuscular injection 60 mg (for_TORADOL) (COMPLETED ) 1755 (Given - Provider: Chrissie Velez R.N.) 60 mg, intramuscular, Once, Mon03/10/17 at 1741, For 1 dose, Adult IV push rate: Over 15 seconds. Peds IV push rate: Over 1 minute. 60 mg dose only for IM, not recommended for IV., Drug Monitoring Prog dio: Pharmacist to adjust medication order based on co morbities and indication. documented in this encounter Additional Health Concerns Assessment Noted Time PHQ-9 Depression Total Score: 1 06/13/2014 1:45 PM MERCHANDISE ADJUSTMENT CLERK documented as of this encounter
--- OUTSIDE RECORDS SUMMARY | 2022-03-16 15:06 | XMS_ITS | Encounter Summary ---
:1980 Demographics Address [address] [place] [address] Mobile Phone Home Phone Email Address Preferred Language ENG Marital Status Single Oriental Orthodox Affiliation Unknown Race White Ethnic Group Not or Author Organization [facility] Address [address] [place] [address] Care Team Providers Name Role Phone Unavailable Primary Care Provider Unavailable Encounter Details Date Type Department Care Team Description 03/29/2016 Hospital Encounter HX [facility] ME Smooth Riddle, P.A.-C. [address] [place], [place] [phone] (Wo rk) Social History Tobacco Use Types [...] Sign Reading Time Taken Comments Blood Pressure 125/89 03/29/2016 5:56 PM MEDICAL EQUIPMENT REPAIR TECHNICIAN Pulse 97 03/29/2016 5:56 PM MEDICAL EQUIPMENT REPAIR TECHNICIAN Temperature - - Respiratory Rate 20 03/29/2016 5:56 PM MEDICAL EQUIPMENT REPAIR TECHNICIAN Oxygen Saturation - - Inhaled Oxygen Concentration - - Weight 83.8 kg (184 lb 11.9 oz) 03/29/2016 5:56 PM MEDICAL EQUIPMENT REPAIR TECHNICIAN Height 158 cm (5' 2.21) 03/29/2016 5:56 PM MEDICAL EQUIPMENT REPAIR TECHNICIAN Body Mass Index 33.57 03/29/2016 5:56 PM MEDICAL EQUIPMENT REPAIR TECHNICIAN documented in this encounter Medications at Time [...] encounter Progress Notes Levi Waite P.A.-C. - 03/29/2016 6:13 PM CST Clinic Full Note CHIEF COMPLAINT/REASON FOR VISIT URI. HISTORY OF PRESENT ILLNESS Patient is a 35 year old female who presents today for evaluation of an upper respiratory infection. The patient notes her symptoms started 1 week ago. Her symptoms include rhinorrhea, nasal congestion with sinus pressure. She has had green drainage and now is developing a productive cough with some chest discomfort. She denies any shortnes of breath. She has used Sudafed, Marya- [place] Cold, Benadryl, hot tea with lemon and this improved some of her symptoms. She has had difficulty sleeping secondary to the cough. history of asthma and current every day smoker Of note the patient has a history of sinus surgeries in 2000 and 2004. MEDICATIONS ibuprofen 200 mg oral tablet, 800 mg, 4 tab(s), PO, PRN ketorolac 10 mg oral tablet, 10 mg, 1 tab(s), PO, 4xDay Mirena 52 mg intrauteral device, 52 mg, 1 each, [facility] [id number], Intrauteral, Once, 0 refills Tylenol, [...] as child (1980). SOCIAL HISTORY Date Time: 03/29/2016 17:56 Tobacco: Smoking Status: Current every day smoker Exposure: Patient smokes Alcohol: Use: No Recreational Drugs: Use: None Type: No Results Found FAMILY HISTORY Mother:Positive: Diabetes mellitus; Liver Father:Positive: MEDRANO - Headache; Hypertension Sister:Positive: Asthma SYSTEMS REVIEW GENERAL: No fevers, no chills CARDIAC: No chest pain PULMONARY: As noted above GI: No nausea, no vomiting VITAL SIGNS T: 36.7 ??C (Core) HR: 97 RR: 20 BP: 125 / 89 SpO2: 97% HT: 158 cm WT: 83.8 kg BMI: 33.57 PHYSICAL EXAMINATION GENERAL: Patient is in no distress. HEENT: Normocephalic. PERRL, Canals patent, bilateral TMs are nonerythematous and non-bulging. Nasal mucosa is erythematous. Tenderness over the maxillary sinuses. Oropharynx without lesion of mucosa.Pharyngeal rises symmetrically without exudate or erythema. HEART: Regular rate and rhythm. No murmurs, gallops or rubs noted. LUNGS: Coarse breath sounds throughout, no overt crackles. No expiratory wheeze. No accessory muscles of respiration noted. NEURO: Alert and nonfocal, moving all 4 extremities PSYCH: Appropriate affect IMPRESSION/REPORT/PLAN 1. Sinusitis NOS Mucinex for congestion. Patient given cough syrup with codeine to help for sleep at night. She was given azithromycin. Due to the growing resistance in sinusitis, I did give patient 2 prescriptions (one to [facility] tonight and the other to [facility]). Should she feel like she needs the second course is available for her. Humidifier at night may help with coughing. Hydration and rest are very important Follow up in 1-2 weeks if not improving 2. Bronchitis Acute See above Orders: azithromycin, 2 tablets on day 1, then 1 tablet on days 2-5, PO, As Directed, x 5 day(s), # 6 tab(s), 0 Refill(s), Acute, Pharmacy: [facility] codeine-guaiFENesin, 5 mL, PO, Bedtime, PRN cough, # 120 mL, 0 Refill(s), Acute Electronically Signed By: LEVI WAITE PA-C On: 03/30/2016 02:37 PM Source: [facility] POWERCHART Document Id: [id number] CAL EQUIPMENT REPAIR TECHNICIAN documented in this encounter Miscellaneous Notes Miscellaneous - Aron Bo, L.P.N. - 03/29/2016 5:56 PM CST Adult Manager Of Allied Health Services Intake/History Adult Manager Of Allied Health Services Intake/History Entered On: 03/29/2016 17:59 MEDICAL EQUIPMENT REPAIR TECHNICIAN Performed On: 03/29/2016 17:56 MEDICAL EQUIPMENT REPAIR TECHNICIAN by ARON BO ROLL SLICING MACHINE TENDER Intake Chief Complaint : URI. Onset of Symptoms : x1wk Ambulatory Intake Additional Information : Cough, chest pressure, sinus drainage, headache. Temperature Core : 36.7 DegC(Converted to: 98.1 DegF) Peripheral Pulse Rate : 97 /min Respiratory Rate : 20 /min Systolic Blood Pressure : 125 mmHg Diastolic Blood Pressure : 89 mmHg NIBP Mean : 101 mmHg BP Location : Left upper extremity Blood Pressure Cuff Size : Regular SpO2 : 97 % Oxygen Therapy : Room air Height : 158 cm(Converted to: 5 ft 2 inch(es), 62 inch(es)) Actual Weight : 83.8 kg(Converted to: 184 lb 12 oz) Weight Source : Standing scale Dosing Weight Clinic : 83.8 kg Clinic BSA : 1.92 Body Mass Index : 33.57 kg/m2 ARON BO [facility] 03/29/2016 17:56 MEDICAL EQUIPMENT REPAIR TECHNICIAN General Info Information Given By : Patient Preferred Communication Mode : Verbal Languages : Belarusian Is Patient Female and 13-50 no hysterectomy : Yes Status : Patient denies Are you ? : No ARON BO [facility] - 03/29/2016 17:56 MEDICAL EQUIPMENT REPAIR TECHNICIAN Subjective Pain Symptoms : Yes ARON BO [facility] 03/29/2016 17:56 MEDICAL EQUIPMENT REPAIR TECHNICIAN Pain Scale Pain Scale Verbal 0-10 : Open ARON BO [facility] 03/29/2016 17:56 MEDICAL EQUIPMENT REPAIR TECHNICIAN Pain Pain Assessment Grid Pain 1 Location : Head ARON BO [facility] 03/29/2016 17:56 MEDICAL EQUIPMENT REPAIR TECHNICIAN Dependent Habits Exposure to Tobacco Smoke : Patient smokes Smoking Status : Current every day smoker Tobacco 2A : Yes Tobacco Use/Currently Using : Yes Tobacco Use/Last 30 Days : Yes Tobacco Use/Last 12 months : Yes Type : Cigarettes: Less than 20 per day Tobacco Use/Advised to Quit : Yes Alcohol Use : No ARON BO [facility] - 03/29/2016 17:56 MEDICAL EQUIPMENT REPAIR TECHNICIAN Caffeine Use Grid Caffeine Use : Current Type : Coffee, Soft drinks Frequency : Occasionally ARON BO [facility] 03/29/2016 17:56 MEDICAL EQUIPMENT REPAIR TECHNICIAN Recreational Drug Use Grid Drug Use : None ARON BO [facility] 03/29/2016 17:56 MEDICAL EQUIPMENT REPAIR TECHNICIAN Source: [facility] POWERCHART Document Id: [id number] MEDICAL EQUIPMENT REPAIR TECHNICIAN!54 CAL EQUIPMENT REPAIR TECHNICIAN documented in this encounter Plan of Treatment Not on filedocumented as of this encounter Visit Diagnoses Not on filedocumented in this encounter Additional Health Concerns Assessment Noted Time PHQ-9 Depression Total Score: 1 06/13/2014 1:45 PM MEDICAL EQUIPMENT REPAIR TECHNICIAN documented as of this encounter
--- OUTSIDE RECORDS SUMMARY | 2022-03-16 15:06 | XMS_ITS | Encounter Summary ---
:1980 Author Organization [facility] Address [address] [place] [address] Care Team Providers Name Role Phone Unavailable Primary Care Provider Unavailable Encounter Details Date Type Department Care Team Description 08/22/2017 Clinical Department of Yossi, James Shah Otorhinolaryngology in [place], [place] [address] [place] [address] [place], [place] [phone] Social History Tobacco Use Types Packs/Day [...] How often do you attend holiness or More than 4 times per year 11/09/2020 worship services? Do you belong to any clubs or No 11/09/2020 organizations such as holiness groups, unions, fraternal [...] Encounter - Shahla Mejia L.P.N. - 08/22/2017 3:05 PM CDT Patient is to return to ENT clinic in 6-8 weeks or sooner if new or worsening symptoms occur. Telephone Encounter - Melanie Al - 08/22/2017 2:41 PM CDT I called patient off the order placed for her to be seen by Alyssa Sy with expected date of 08/21. Patient states she thinks she is to be seen in a couple months. I see the patient has some testing scheduled that Alyssa ordered. Is patient supposed to see Alyssa after that testing (sooner than a couple months) or when should the expected date be? Patient can be reached at phone number on file for scheduling needs. documented in this encounter Plan of Treatment Not on filedocumented as of this encounter Visit Diagnoses Not on filedocumented in this encounter Additional Health Concerns Assessment Noted Time PHQ-9 Depression Total Score: 1 06/13/2014 1:45 PM BUSHEL GIRL documented as of this encounter
--- OUTSIDE RECORDS SUMMARY | 2022-03-16 15:07 | XMS_ITS | Encounter Summary ---
:1980 Author Organization [facility] Address [address] [place] [address] Care Team Providers Name Role Phone Unavailable Primary Care Provider Unavailable Encounter Details Date Type Department Care Team Description 12/04/2013 Hospital Encounter HX [facility] ME Janay Wayne, COOK VACUUM KETTLE, C.N.P., D. N.P. [address] [place] [address] (Wo rk) Social History Tobacco [...] or slept in a fdc (including now)? Sex Assigned at Date Recorded Not on file documented as of this encounter Last Filed Vital Signs Vital Sign Reading Time Taken Comments Blood Pressure 107/74 12/04/2013 2:42 PM CDT Pulse 94 12/04/2013 2:42 PM CDT Temperature - - Respiratory Rate - - Oxygen Saturation - - Inhaled Oxygen Concentration - - Weight 84.2 kg (185 lb 10 oz) 12/04/2013 2:42 PM CDT Height 157 cm (5' 1.81) 12/04/2013 2:42 PM CDT Body Mass Index 34.16 12/04/2013 2:42 PM CDT documented in this encounter Medications at Time of Discharge Medication Sig Dispensed Refills Start Date End Date ACETAMINOPHEN ORAL Take 500 mg by mouth every 0 0 06/04/2013 06/29/2019 6 (six) hours as needed. documented as of this encounter Progress Notes Janay Wayne, LO, C.N.P. - 12/04/2013 2:38 PM CDT [id number] CHIEF COMPLAINT/REASON FOR VISIT Urinary symptoms. HISTORY OF PRESENT ILLNESS Dulce is a 33-year-old, 28 week , 6, para 1 who comes in today with a 2-day history of urinary itching, burning and urinary frequency. She denies any back pain. She denies any hematuria.She has noted some cottage cheese colored white discharge which has been more than normal. She was recently seen in the emergency room for what was thought to be vaginal bleeding, but noted to be hemorrhoids instead. She has no fevers, no chills, otherwise has been feeling well. MEDICATIONS Please see the EMR for details. ALLERGIES Please see the EMR. PHYSICAL EXAMINATION GENERAL: Patient appears nondistressed. DIAGNOSTICS Her urine shows just a small amount of leukocytes, 15 ketones, and yeast present. The bacteria and mucus were also noted to be present. The rest of her urine was noted to be negative. IMPRESSION/REPORT/PLAN I did not do a vaginal examination as clearly patient's clinical symptoms as well as her urine confirms candidiasis vaginitis. I discussed this with patient that in actuality we would not have to treatunless the symptoms were significant enough. Because of her , Diflucan would not be an option. Patient did feel she is symptomatic enough that she does need treatment and we placed her on someclotrimazole-7 vaginal cream to be used for 7 days. Patient would like this information sent to her MENTAL HEALTH PROGRAM MANAGER [facility], Dr. Nj in [place]. We will go ahead and cc this note to that person also. Ready to learn. No apparent learning barriers were identified. Learning preferences include listening. Explained diagnosis and treatment plan. Patient expressed understanding of the content. Stuart Conde/mary ellen cc: Dr. Nj [facility] Electronically Signed By: JANAY WAYNE RN, INGOT SUPERVISOR On: 12/13/2013 08:17 AM Source: [facility] MHSDOLBEYNONRADSYS Document Id: [id number] documented in this encounter Miscellaneous Notes Miscellaneous - Janay Wayne APRN, C.N.P. - 12/04/2013 3:41 PM CDT Ambulatory Patient Summary [address] [id number] Visit Information Name: DULCE MENSAH [facility] Number: [id number] Current Date: 12/04/2013 15:41:01 Physicians Attending Provider: JANAY WAYNE RN, INGOT SUPERVISOR Primary Care Provider: ANDREW VERA DNP, DIRECTOR SELECTION AND ADMINISTRATION DULCE MENSAH has been given the following list of follow-up instructions, medication list, and patient education materials: Follow-up Instructions Your Medications Here is a list of your medications. It is important to take your medications as directed. Use a pillbox or chart to help remind you to take your medications. Please let your doctor or nurse know if you have problems taking your medications. Medication/Strength How to Take Indications/Special Instructions/Comments/Notes for Patient Medication Changes/Routing acetaminophen (Tylenol) 500 mg, Oral, every 6 hours as needed for Pain clotrimazole topical (Clotrimazole-7 vaginal cream with applicator) 1 sonya, Vaginal, once a day (at bedtime) x 7 day(s) New Routed to [address] [address] diphenhydrAMINE (Benadryl) 50 mg, Oral, once a day phenylephrine topical (Prep-Hem 0.25%-3% rectal ointment) See Instructions 1Application to anal rectal area twice a day for 7 days Stop Taking the Following Medications: Medication list as of 12-04-13 15:41 Attention: If you have any medications at home that are not on this list, DO NOT take them until youcontact your provider for clarification. Give a copy of your medication list to your primary care provider. Update your medication list any time medications or doses are changed and carry your medication list at all times in case of emergency. Electronically Signed By: JANAY WAYNE RN, INGOT SUPERVISOR Signed On:04-DEC-2013 15:40:55 Your Allergies & Intolerances Substance Reaction Symptoms Category Comments quinolone antibiotics Drug QUINOLONES - Cipro; vomiting Cipro Drug Augmentin XR GI distress Drug Silicone Drug Your Problem List Problem Status Onset Comments Migraine headache Active 04/17/1989 06/10/10 no known date of onset Acne vulgaris Active 12/17/10 Date of onset unknown Anxiety State, Unspecified Active 08/22/2011 Allergic rhinitis, unspecified Active 08/22/2011 Tobacco Use Disorder Active 08/22/2011 Thoracic or Lumbosacral Neuritis or Radiculitis, Unspecified Active 11/29/2007 07/13/13 Lumbar radiculopathy Your Upcoming Appointments Date Time Location Reason Provider No Appointments found Attention: Contact your local Clinic if further appointment detail needed. Your Goals/Additional instructions: Source: [facility] POWERCHART Document Id: [id number] Miscellaneous - Janay Wayne APRN, C.N.P. - 12/04/2013 3:41 PM CDT Ambulatory Discharge Medication List [address] [id number] Visit Information Name: DULCE MENSAH [facility] Number: [id number] Visit Date: 12/04/2013 15:40:59 Attending Provider: JANAY WAYNE RN, INGOT SUPERVISOR Primary Care Provider: ANDREW VERA DNP, DIRECTOR SELECTION AND ADMINISTRATION DULCE MENSAH has been given the following list of medications: Your Medications It is important to take your medications as directed. Use a pill box or chart to help remind you to take your medications. Please let your doctor or nurse know if you have problems taking your medications. Medication/Strength How to Take Indications/Special Instructions/Comments/Notes for Patient Medication Changes/Routing acetaminophen (Tylenol) 500 mg, Oral, every 6 hours as needed for Pain clotrimazole topical (Clotrimazole-7 vaginal cream with applicator) 1 sonya, Vaginal, once a day (at bedtime) x 7 day(s) New Routed to [address] [address] diphenhydrAMINE (Benadryl) 50 mg, Oral, once a day phenylephrine topical (Prep-Hem 0.25%-3% rectal ointment) See Instructions 1Application to anal rectal area twice a day for 7 days Stop Taking the Following Medications: Medication list as of 12-04-13 15:40 Attention: If you have any medications at home that are not on this list, DO NOT take them until youcontact your provider for clarification. Give a copy of your medication list to your primary care provider. Update your medication list any time medications or doses are changed and carry your medication list at all times in case of emergency. Electronically Signed By: JANAY WAYNE RN, LANIE Signed On:04-DEC-2013 15:40:55 Additional Information: Source: [facility] POWERCHART Document Id: [id number] Miscellaneous - Radha Guajardo L.P.N. - 12/04/2013 2:42 PM CDT Adult Component Inspector Intake/History Adult Component Inspector Intake/History Entered On: 12/04/2013 14:47 CDT Performed On: 12/04/2013 14:42 CDT by RADHA GUAJARDO LPN Intake Chief Complaint : questions if has UTI or Yeast infection unable to OB 28 weeks itching and burning with urination Temperature Core : 36.4 DegC(Converted to: 97.5 DegF) (LOW) Peripheral Pulse Rate : 94 /min Systolic Blood Pressure : 107 mmHg Diastolic Blood Pressure : 74 mmHg NIBP Mean : 85 mmHg BP Location : Left upper extremity Blood Pressure Cuff Size : Regular SpO2 : 96 % Oxygen Therapy : Room air Height : 157 cm(Converted to: 5 ft 2 inch(es), 62 inch(es)) Actual Weight : 84.2 kg(Converted to: 185 lb 10 oz) Weight Source : Standing scale Dosing Weight Clinic : 84.2 kg Clinic BSA : 1.92 Body Mass Index : 34.16 kg/m2 RADHA GUAJARDO LPN - 12/04/2013 14:42 CDT General Info Information Given By : Patient Languages : Croatian Is Patient Female and 13-50 no hysterectomy : Yes Status : Confirmed positive Are you ? : No RADHA GUAJARDO LPN - 12/04/2013 14:42 CDT Subjective Pain Symptoms : No RADHA GUAJARDO LPN - 12/04/2013 14:42 CDT Dependent Habits Tobacco Use/Currently Using : Yes Tobacco Use/Advised to Quit : Yes Exposure to Tobacco Smoke : Patient smokes Smoking Status : Current every day smoker RADHA GUAJARDO LPN - 12/04/2013 14:42 CDT Tobacco Use Grid Type : Cigarettes Cigarette Use Packs/Day : 0.5 RADHA GUAJARDO LPN - 12/04/2013 14:42 CDT Caffeine Use Grid Caffeine Use : Current Type : Soft drinks Frequency : Occasionally RADHA GUAJARDO LPN - 12/04/2013 14:42 CDT Recreational Drug Use Grid Drug Use : None RADHA GUAJARDO LPN - 12/04/2013 14:42 CDT Source: [facility] POWERCHART Document Id: [id number] documented in this encounter Plan of Treatment Not on filedocumented as of this encounter Procedures Procedure Name Priority Date/Time Associated Diagnosis Comme nts BACTERIAL CULTURE, Routine 12/04/2013 3:21 PM Res ults for this AEROBIC, URINE CDT procedure are in the results section. URINALYSIS, Routine 12/04/2013 2:56 PM Results f or this MIDSTREAM, WITH CDT procedure ar e in CULTURE IF the results INDICATED section. documented in this encounter Results Bacterial Culture, Aerobic, Urine (12/04/2013 3:21 PM CDT) [facility] Method Time Signature Bacterial POWERCHART Culture, Aerobic, Urine HXPre Culture in POWERCHART progress HXFinal >100,000 POWERCHART cfu/mL Mixed lizeth (multiple species present) Gram Positive Organism No further work-up. Specimen Anatomical Collection Method Collection Time Receive d Time (Source) Location / / Volume Laterality Urine, Clean 12/04/2013 3:21 PM 4 3:21 Catch CDT PM CDT Janay Wayne APRN C.N.P., D.N.P. LAB MICROBIOLOGY - GENERAL ORDERABLES Performing Organization Address City/State/ZIP Code Phon e Number POWERCHART (ABNORMAL) Urinalysis, Midstream, with culture if indicated (12/04/2013 2:56 PM CDT) [facility] [employer] Method Time Signature Source Clean Void POWERCHART Urine HXUr Color Yellow POWERCHART Clarity Clear POWERCHART Glucose Negative MGDL POWERCHART HXBILIRUBIN Negative POWERCHART Ketones, QL(U) 15 (A) MGDL POWERCHART Specific >=1.030 POWERCHART [place], POCT, U pH, POCT, Urine 6.0 POWERCHART Protein, Ur, Dip Negative MGDL POWERCHART Urobilinogen 0.2 MGDL POWERCHART HXNITRITE Negative POWERCHART HXBLOOD Negative POWERCHART Leukocyte Small (A) POWERCHART Esterase HXUR WBC. 4-10 HPF POWERCHART HXUR RBC. None Seen HPF POWERCHART Squamous Occ-3 HPF POWERCHART Epithelial Hyphae Yeast Present (A) POWERCHART Urine HXUR Bacteria, Present (A) POWERCHART Mucus Present (A) POWERCHART Specimen (Source) Anatomical Collection Method Collection Time Re ceived Time Location / / Volume Laterality Urine 12/04/2013 2:56 PM CDT Janay Wayne APRN, C.N.P., D.N.P. LAB URINE ORDERABLE S Performing Organization Address City/State/ZIP Code Phon e Number POWERCHART documented in this encounter Visit Diagnoses Not on filedocumented in this encounter Additional Health Concerns Assessment Noted Time PHQ-9 Depression Total Score: 3 06/13/2013 6:47 AM FIRE MANAGEMENT SPECIALIST documented as of this encounter
--- OUTSIDE RECORDS SUMMARY | 2022-03-16 15:07 | XMS_ITS | Encounter Summary ---
:1980 Author Organization [facility] Address [address] [place] [address] Care Team Providers Name Role Phone Unavailable Primary Care Provider Unavailable Encounter Details Date Type Department Care Team Description 07/30/2013 Hospital Encounter HX [facility] Andrew Vera, LO, C.N.P., D. N.P. [address] [place] [address] (Wo rk) Social History Tobacco Use Types [...] Sign Reading Time Taken Comments Blood Pressure 100/60 07/30/2013 9:24 AM CDT Pulse 76 07/30/2013 9:24 AM CDT Temperature - - Respiratory Rate 16 07/30/2013 9:24 AM CDT Oxygen Saturation - - Inhaled Oxygen Concentration - - Weight 85.1 kg (187 lb 9.8 oz) 07/30/2013 9:24 AM CDT Height - - Body Mass Index 34.52 07/19/2013 1:02 PM CDT documented in this encounter Medications at Time of Discharge Medication Sig Dispensed Refills Start Date End Date ACETAMINOPHEN ORAL Take 500 mg by mouth every 0 0 06/04/2013 06/29/2019 6 (six) hours as needed. documented as of this encounter Progress Notes Andrew Vera D.N.P., C.N.P. - 07/30/2013 9:11 AM CDT [id number] CHIEF COMPLAINT/REASON FOR VISIT Follow up urinary tract infection. HISTORY OF PRESENT ILLNESS Patient is a 33-year-old female who presents to the clinic with her daughter today with chief complaint of following up on urinary tract infection which she was diagnosed with dysuria and treated with nitrofurantoin 100 mg by mouth twice a day given a urine analysis completed on 07/26/2013 showing 3+ ketones, trace leukocytes and moderate bacteria noted. Urine culture was also completed at that time which greater than 3 organisms were present and possible contamination was noted. Therefore, repeat was not completed. She indicates she is feeling much better, and indicates that she is continuing on the nitrofurantoin by mouth as directed. She is currently approximately 11 weeks 2 days gestation at this time. PAST MEDICAL/SURGICAL HISTORY Reviewed. Please see chart. MEDICATIONS Reviewed. Please see chart. ALLERGIES Reviewed. Please see chart. PHYSICAL EXAMINATION GENERAL: Patient is alert/oriented x3. HEAD: Normocephalic/atraumatic. PUPILS: GLEN. OROPHARYNX: [place] and moist. TMS: Bilateral TMs are clear, bony landmarks noted and within normal limits. NARES: Patent, no erythema or drainage noted. NECK: No anterior/posterior lymphadenopathy noted. HEART: Regular S1, S2, no murmurs, rubs or gallops noted. LUNGS: Clear to auscultation, no prolonged expiratory phases, wheezing, rales or rhonchi noted. SKIN: Without unusual rashes or suspicious lesions LABORATORY: Urine was yellow and clear, negative protein, glucose, ketones, and nitrites. IMPRESSION/REPORT/PLAN Followup dysuria. PLAN: Discussed overall findings at length with the patient. Advised to continue antibiotic therapy and continue following up as previously recommended by her lard mixer for her routine OB visits. The patient felt comfortable with this treatment plan. Patient otherwise denies any further questions or concerns. Patient was also given a prescription per her request for Zofran 4 mg by mouth, disintegrating tablets to take every 8 hours as needed for nausea for morning sickness quantity of #30 tabletswith 1 refill were authorized. Ready to learn. No apparent learning barriers were identified. Learning preferences include listening. Explained diagnosis and treatment plan. Patient/Child/Caregiver expressed understanding of the content. Leslie JacobsNKurtis/F.N.P/mary ellen Electronically Signed By: ANDREW VERA DNP, FNP On: 08/06/2013 07:57 AM Source: [facility] MHSDOLBEYNONRADSYS Document Id: [id number] documented in this encounter Miscellaneous Notes Miscellaneous - Andrew Vera D.N.Smay., C.N.P. - 07/30/2013 3:28 PM CDT Ambulatory Patient Summary [address] [id number] Visit Information Name: CARTER MENSAH [facility] Number: [id number] Current Date: 07/30/2013 15:28:58 Physicians Attending Provider: ANDREW VERA DNP, FNP Primary Care Provider: ANDREW VERA DNP, FNP CARTER MENSAH ELEAZAR has been given the following list of [...] every 6 hours as needed for Pain diphenhydrAMINE (Benadryl) 50 mg, Oral, once a day nitrofurantoin (nitrofurantoin macrocrystals 100 mg oral capsule) 1 cap, Oral, two times a day x 10 day(s) with food for UTI ondansetron (ondansetron 4 mg oral tablet, disintegrating) 1 Tablet(s), Oral, every 8 hours as needed for Nausea New Routed to [address] [address] Stop Taking the Following Medications: fluticasone nasal (Flonase 50 mcg/inh nasal spray) multivitamin, ( Multivitamins with Vitamin B Complex, Vitamin C, Minerals and L-Methylfolate oral capsule) Medication list as of 07-30-13 15:28 Attention: If you have any medications at home that are not on this list, DO NOT take them until youcontact your provider for clarification. Give a copy of your medication list to your primary care provider. Update your medication list any time medications or doses are changed and carry your medication list at all times in case of emergency. Electronically Signed By: ANDREW VERA DNP, FNP Signed On:30-JUL-2013 15:28:50 Your Allergies & Intolerances Substance Reaction Symptoms [...] Active 08/22/2011 Tobacco Use Disorder Active 08/22/2011 Active 11/29/2007 07/13/13 Lumbar radiculopathy Your Upcoming Appointments Date Time Location Reason Provider No Appointments found Attention: Contact your local Clinic if further appointment detail needed. Your Goals/Additional instructions: Source: [facility] POWERCHART Document Id: [id number] Miscellaneous - Andrew Vera D.N.Luis, C.N.P. - 07/30/2013 3:28 PM CDT Ambulatory Discharge Medication List [address] [id number] Visit Information Name: CARTER MENSAH [facility] Number: [id number] Visit Date: 07/30/2013 15:28:56 Attending Provider: ANDREW VERA DNP, FNP Primary Care Provider: ANDREW VERA DNP, FNP CARTER MENSAH ELEAZAR has been given the following list of [...] every 6 hours as needed for Pain diphenhydrAMINE (Benadryl) 50 mg, Oral, once a day nitrofurantoin (nitrofurantoin macrocrystals 100 mg oral capsule) 1 cap, Oral, two times a day x 10 day(s) with food for UTI ondansetron (ondansetron 4 mg oral tablet, disintegrating) 1 Tablet(s), Oral, every 8 hours as needed for Nausea New Routed to [address] [id number] Stop Taking the Following Medications: fluticasone nasal (Flonase 50 mcg/inh nasal spray) multivitamin, ( Multivitamins with Vitamin B Complex, Vitamin C, Minerals and L-Methylfolate oral capsule) Medication list as of 07-30-13 15:28 Attention: If you have any medications at home that are not on this list, DO NOT take them until youcontact your provider for clarification. Give a copy of your medication list to your primary care provider. Update your medication list any time medications or doses are changed and carry your medication list at all times in case of emergency. Electronically Signed By: ANDREW VERA DNP MANAGER DIVERSITY Signed On:30-JUL-2013 15:28:50 Additional Information: Source: [facility] POWERCHART Document Id: [id number] Miscellaneous - Guido Merchant L.P.N. - 07/30/2013 9:24 AM CDT Adult Voucher Clerk Intake/History Adult Voucher Clerk Intake/History Entered On: 07/30/2013 9:28 CDT Performed On: 07/30/2013 9:24 CDT by GUIDO MERCHANT LPN Intake Chief Complaint : folow up dysuria discuss nausea in evening Temperature Core : 36.7 DegC(Converted to: 98.1 DegF) Peripheral Pulse Rate : 76 /min Respiratory Rate : 16 /min Heart Rhythm : Regular Systolic Blood Pressure : 100 mmHg Diastolic Blood Pressure : 60 mmHg NIBP Mean : 73 mmHg BP Location : Right upper extremity Blood Pressure Cuff Size : Regular Actual Weight : 85.1 kg(Converted to: 187 lb 10 oz) Weight Source : Standing scale Dosing Weight Clinic : 85.1 kg GUIDO MERCHANT LPN - 07/30/2013 9:24 CDT General Info Information Given By : Patient Languages : Mosotho GUIDO MERCHANT LPN - 07/30/2013 9:24 CDT Subjective Pain Symptoms : No GUIDO MERCHANT LPN - 07/30/2013 9:24 CDT Dependent Habits Tobacco Use/Currently Using : Yes Tobacco Use/Advised to Quit : Yes Exposure to Tobacco Smoke : Patient smokes Smoking Status : Current every day smoker GUIDO MERCHANT [facility] - 07/30/2013 9:24 CDT Tobacco Use Grid Type : Cigarettes Cigarette Use Packs/Day : 0.5 GUIDO MERCHANT [facility] - 07/30/2013 9:24 CDT Caffeine Use Grid Caffeine Use : Current Type : Soft drinks Frequency : Occasionally GUIDO MERCHANT [facility] - 07/30/2013 9:24 CDT Recreational Drug Use Grid Drug Use : None GUIDO MERCHANT [facility] - 07/30/2013 9:24 CDT Source: [facility] POWERCHART Document Id: [id number] documented in this encounter Plan of Treatment Not on filedocumented as of this encounter Procedures Procedure Name Priority Date/Time Associated Diagnosis Comme nts URINALYSIS, ROUTINE Routine 07/30/2013 9:22 AM Re sults for this CDT procedure are i n the results section. documented in this encounter Results Urinalysis, Routine (07/30/2013 9:22 AM CDT) [facility] Method Time Signature HXUr Color Yellow Yellow POWERCHART Appearance Clear Clear POWERCHART Glucose Negative Negative POWERCHART HXBILIRUBIN Negative Negative POWERCHART Ketones, QL(U) Negative Negative POWERCHART Specific >=1.030 1.000 - POWERCHART [place], POCT, U 1.030 pH, POCT, Urine 5.5 5.0 - 8.0 POWERCHART Protein, Ur, Dip Negative Negative POWERCHART Urobilinogen 0.2 POWERCHART HXNITRITE Negative Negative POWERCHART HXBLOOD Negative Negative POWERCHART Leukocyte Negative Negative POWERCHART Esterase Source Clean Void POWERCHART Urine Specimen (Source) Anatomical Collection Method Collection Time Re ceived Time Location / / Volume Laterality Urine 07/30/2013 9:22 AM CDT Andrew Vera APRN, C.N.P., D.N.P. LAB URINE KRISTINA THOMPSON Performing Organization Address City/State/ZIP Code Phon e Number POWERCHART documented in this encounter Visit Diagnoses Not on filedocumented in this encounter Additional Health Concerns Assessment Noted Time PHQ-9 Depression Total Score: 3 06/13/2013 6:47 AM PRODUCT SAFETY ASSOCIATE documented as of this encounter
--- OUTSIDE RECORDS SUMMARY | 2022-03-16 15:07 | XMS_ITS | Encounter Summary ---
:1980 Author Organization [facility] Address [address] [place] [address] Care Team Providers Name Role Phone Unavailable Primary Care Provider Unavailable Encounter Details Date Type Department Care Team Description 06/26/2013 Hospital Encounter HX [facility] Zina Vera, LO, C.N.P., D.N.P. [address] [phone] (Wo rk) Social History Tobacco Use Types [...] Concentration - - Weight - - Height 157 cm (5' 1.81) 06/26/2013 8:41 AM CDT Body Mass Index - - documented in this encounter Medications at Time of Discharge Medication Sig Dispensed Refills Start Date End Date ACETAMINOPHEN ORAL Take 500 mg by mouth every 0 0 06/04/2013 06/29/2019 6 (six) hours as needed. documented as of this encounter Miscellaneous Notes Miscellaneous - Zina Vera, D.N.P., C.N.P. 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 From: ZINA VERA DNP, GIVING OFFICER Sent: 06/28/2013 15:50:18 CDT ! Show up: 06/28/2013 15:50:18 CDT Subject: Results Notification Actions: Notify patient of results Reminder Comments: please call tapan with results thank you. Results: Date Result Name Value Ref Range 06/26/2013 08:40 Beta hCG Qnt 20,820.0 IntU/L (0.0 - 5.0) Source: [facility] POWERCHART Document Id: [id number] Electronically signed by Conversion, [facility] Merchandise Adjustment Clerk [id number] at 09/13/2016 4:04 AM CDT documented in this encounter Plan of Treatment Not on filedocumented as of this encounter Procedures Procedure Name Priority Date/Time [facility] Diagnosis [facility] Routine 06/26/2013 8:40 AM Resul ts for this CHORIONIC CDT procedure are i n GONADOTROPIN), the results [place]IE[place], S section. documented in this encounter Results bHCG (Beta-Human Chorionic Gonadotropin), Quantitative (06/26/2013 8:40 AM CDT) P athologist Signature Beta-HCG, [address]180.0 0.0 - 5.0 POWERCHART Quantitative, INTUL S Comment: 0 ? 5 IntU/L Negative 5 ? 25 IntU/L Indeterminate > 25 IntU/L Positive Specimen (Source) Anatomical Collection Method Collection Time Re ceived Time Location / / Volume Laterality Blood 06/26/2013 8:40 AM CDT Zina Vera APRN, C.N.P., D.N.P. LAB BLOOD ADD- ON Performing Organization Address City/State/ZIP Code Phon e Number POWERCHART documented in this encounter Visit Diagnoses Not on filedocumented in this encounter Additional Health Concerns Assessment Noted Time PHQ-9 Depression Total Score: 3 06/13/2013 6:47 AM INTERNATIONAL LOGISTICS ANALYST documented as of this encounter
--- OUTSIDE RECORDS SUMMARY | 2022-03-16 15:07 | XMS_ITS | Encounter Summary ---
:1980 Author Organization [facility] Address [address] [place] [address] Care Team Providers Name Role Phone Unavailable Primary Care Provider Unavailable Encounter Details Date Type Department Care Team Description 04/28/2014 Hospital Encounter [facility]X [facility] Andrew Vera, LO, C.N.P., D. N.P. [address] [place] [address] (Wo rk) Social History Tobacco [...] More than 4 times per year 11/09/2020 rastafari services? Do you belong to any clubs [...] Sign Reading Time Taken Comments Blood Pressure 117/69 04/28/2014 7:39 AM FINANCIAL PLANNING ADVISER Pulse 76 04/28/2014 7:39 AM FINANCIAL PLANNING ADVISER Temperature - - Respiratory Rate 16 04/28/2014 7:39 AM FINANCIAL PLANNING ADVISER Oxygen Saturation - - Inhaled Oxygen Concentration - - Weight 85.2 kg (187 lb 13.3 oz) 04/28/2014 7:39 AM FINANCIAL PLANNING ADVISER Height 158 cm (5' 2.21) 04/28/2014 7:39 AM FINANCIAL PLANNING ADVISER Body Mass Index 34.13 04/28/2014 7:39 AM FINANCIAL PLANNING ADVISER documented in this encounter Medications at Time of Discharge Medication Sig Dispensed Refills Start Date End Date ACETAMINOPHEN ORAL Take 500 mg by 0 06/04/2013 mouth every 6 (six) hours as needed. ibuprofen Take 4 tablets by 0 04/22/2014 020 (for_ADVIL,MOTRIN) 200 mg mouth as needed. tablet documented as of this encounter Progress Notes Andrew Vera D.NLashawnP., C.N.P. - 04/28/2014 7:37 AM CST [id number] CHIEF COMPLAINT/REASON FOR VISIT Sinus congestion. HISTORY OF PRESENT ILLNESS Patient is a 33-year-old female who presents to the clinic today with chief complaint of sinus congestion that been present now for the past 2 weeks' duration. She indicates that she has not any fevers, but indicates that she has noted increased sinus congestion that is actually getting a little bit worse and now going to her chest. She indicates that she has not been taking anything over the counterto help with the symptoms and indicates that she has not been exposed to any kind of viral or bacterial infections that she is aware of. She does have a history of reoccurring sinusitis. She also indicates that she suffers from migraines in which recently she had acquired the Implanon at the beginningof [place], indicates that migraines really have become a little bit more exacerbated since startingthe Implanon. She has been on Topamax in the past for migraine prophylaxis and wondering if she should start back on this at this time. She otherwise indicates that she is not having any other further concerns or issues at this time. PAST MEDICAL/SURGICAL HISTORY Reviewed. Please see chart. FAMILY HISTORY Reviewed. Please see chart. MEDICATIONS Reviewed. Please see chart. ALLERGIES Reviewed. Please see chart. PHYSICAL EXAMINATION GENERAL: Patient is alert/oriented x3. HEAD: Normocephalic/atraumatic. PUPILS: GLEN. OROPHARYNX: [place] and moist. TYMPANIC MEMBRANES: Bilateral TMs are clear, bony landmarks noted and within normal limits. NARES: Bilateral nares are erythematous and enlarged, however no secretions are noted with the rightmore edematous than the left naris. NECK: No anterior/posterior lymphadenopathy noted. HEART: Regular S1, S2, no murmurs, rubs, or gallops noted. LUNGS: Clear to auscultation, no prolonged expiratory phases, wheezing, rales, or rhonchi noted. SKIN: Without unusual rashes or suspicious lesions. IMPRESSION/REPORT/PLAN 1. Upper respiratory infection versus sinusitis. 2. Migraine headaches. PLAN: 1. Upper respiratory infection versus sinusitis: Presently, at this time, patient was given benzonatate 100 mg capsules to take 1 to 2 capsules by mouth up to 3 times a day as needed for cough #60, no refills are authorized. Advised that she can be taking this during the day to help suppress her cough. She was also given guaifenesin and codeine to take 5 to 10 mL by mouth at night only to help with her cough every 4 hours. A quantity of 120 mL of the guaifenesin- codeine with no refills was prescribed and provided to patient. If in fact her symptoms seem like they are worsening with cough suppression for the next 3 days' duration, she may then start on Augmentin 875 mg tablets to take 1 tablet by mouth 2 times a day for 10 days, quantity sufficient, no refills. Side effects of the medication were discussed at length the patient. She would like to refrain from antibiotic therapy in which this was discussed at length. It was advised she is not to fill this prescription unless, again, her symptoms worsen. Recommend humidified air and encouraging fluid intake. She felt comfortable with this treatment plan. 2. Migraine headaches: Presently, at this time, we did reinstate the Topamax 25 mg by mouth daily. We will most likely plan on titrating this up; however, she has had side effects in the past includingdelusional side effects from this medication, more so only at higher doses. Hopefully, with low-dosedaily therapy, this may provide some prophylaxis to her migraines. Side effects again were discussedat length the patient. The patient felt very comfortable with this treatment plan. She will follow up within the next month as she is also due for a routine physical. She denied having further questions or concerns. The patient left clinic in no acute distress. Ready to learn. No apparent learning barriers were identified. Learning preferences include listening. Explained diagnosis and treatment plan. Patient/Child/Caregiver expressed understanding of the content. Andrew Vera D.N.P./Anibal/mary ellen Electronically Signed By: ANDREW VERA DNP, FNP On: 04/28/2014 09:08 AM Source: [facility] MHSDOLBEYNONRADSYS Document Id: [id number] NCIAL PLANNING ADVISER documented in this encounter Miscellaneous Notes Miscellaneous - Andrew Vera D.N.P., C.N.P. - 04/28/2014 8:06 AM FINANCIAL PLANNING ADVISER Ambulatory Patient Summary [address] [id number] Visit Information Name: CARTER MENSAH [facility] Number: [id number] Current Date: 04/28/2014 08:06:22 Physicians Attending Provider: ANDREW VERA DNP, FNP Primary Care Provider: ANDREW VERA DNP, FNP CARTER MENSAH has been given the following list [...] every 6 hours as needed for Pain amoxicillin-clavulanate (Augmentin 875 mg-125 mg oral tablet) 1 Tablet(s), Oral, two times a day x 10 day(s) do not fill unless per pt. request New Routed to [address] [id number] benzonatate (benzonatate 200 mg oral capsule) 1-2 cap(s), Oral, three times a day as needed for Cough x 10 day(s) take during the day New Routed to [address] [id number] benzoyl peroxide topical (benzoyl peroxide 5% topical gel) 1 sonya, Topical, two times a day codeine-guaiFENesin (codeine-guaiFENesin 10 mg-100 mg/5 mL oral syrup) 5-10 mL, Oral, every 4 hours as needed for cough use at night only New Routed to [place] diphenhydrAMINE (Benadryl) 50 mg, Oral, once a day etonogestrel (Implanon 68 mg subcutaneous implant) 1 Each, Subcutaneous, once ibuprofen (ibuprofen 200 mg oral tablet) 4 Tablet(s), Oral, as needed SUMAtriptan (Imitrex 50 mg oral tablet) 1 Tablet(s), Oral, as directed as needed for Migraine headache Take 1 tablet at onset of headache. Repeat after two hours if needed. topiramate (Topamax 25 mg oral tablet) 1 Tablet(s), Oral, once a day x 90 day(s) for migraines New Routed to [address] [address] Stop Taking the Following Medications: Medication list as of 04-28-14 08:06 Attention: If you have any medications at [...] Signed By: ANDREW VERA DNP, FNP Signed On:28-APR-2014 07:58:54 Your Allergies & Intolerances Substance Reaction Symptoms [...] radiculopathy Your Upcoming Appointments Date Time Location Provider No Appointments found Attention: Contact your local Clinic if further appointment detail needed. Your Goals/Additional instructions: Source: [facility] POWERCHART Document Id: [id number] NCIAL PLANNING ADVISER Miscellaneous - Andrew Vera, Tristin.N.P., C.N.P. - 04/28/2014 8:06 AM FINANCIAL PLANNING ADVISER Ambulatory Discharge Medication List [address] [id number] Visit Information Name: CARTER MENSAH [facility] Number: [id number] Visit Date: 04/28/2014 08:06:20 Attending Provider: ANDREW VERA DNP, FNP Primary Care Provider: ANDREW VERA DNP, FNP CARTER MENSAH has been given the following list [...] every 6 hours as needed for Pain amoxicillin-clavulanate (Augmentin 875 mg-125 mg oral tablet) 1 Tablet(s), Oral, two times a day x 10 day(s) do not fill unless per pt. request New Routed to [address] [id number] benzonatate (benzonatate 200 mg oral capsule) 1-2 cap(s), Oral, three times a day as needed for Cough x 10 day(s) take during the day New Routed to [address] [address] benzoyl peroxide topical (benzoyl peroxide 5% topical gel) 1 sonya, Topical, two times a day codeine-guaiFENesin (codeine-guaiFENesin 10 mg-100 mg/5 mL oral syrup) 5-10 mL, Oral, every 4 hours as needed for cough use at night only New Routed to [place] diphenhydrAMINE (Benadryl) 50 mg, Oral, once a day etonogestrel (Implanon 68 mg subcutaneous implant) 1 Each, Subcutaneous, once ibuprofen (ibuprofen 200 mg oral tablet) 4 Tablet(s), Oral, as needed SUMAtriptan (Imitrex 50 mg oral tablet) 1 Tablet(s), Oral, as directed as needed for Migraine headache Take 1 tablet at onset of headache. Repeat after two hours if needed. topiramate (Topamax 25 mg oral tablet) 1 Tablet(s), Oral, once a day x 90 day(s) for migraines New Routed to [address] [address] Stop Taking the Following Medications: Medication list as of 04-28-14 08:06 Attention: If you have any medications at [...] emergency. Electronically Signed By: ANDREW VERA DNP, LORETO Signed On:28-APR-2014 07:58:54 Additional Information: Source: [facility] POWERCHART Document Id: [id number] NCIAL PLANNING ADVISER Miscellaneous - Conversion, Historical Provider Ser - 04/28/2014 7:39 AM FINANCIAL PLANNING ADVISER Adult Console Assembler Intake/History Adult Console Assembler Intake/History Entered On: 04/28/2014 7:43 FINANCIAL PLANNING ADVISER Performed On: 04/28/2014 7:39 FINANCIAL PLANNING ADVISER by EV GUTIERREZ LPN Intake Chief Complaint : cough and sore throat. Request migrane Rx Onset of Symptoms : going on for 2 weeks Temperature Core : 36.2 DegC(Converted to: 97.2 DegF) (LOW) Peripheral Pulse Rate : 76 /min Respiratory Rate : 16 /min Heart Rhythm : Regular Systolic Blood Pressure : 117 mmHg Diastolic Blood Pressure : 69 mmHg NIBP Mean : 85 mmHg BP Location : Left upper extremity SpO2 : 98 % Oxygen Therapy : Room air Height : 158 cm(Converted to: 5 ft 2 inch(es), 62 inch(es)) Actual Weight : 85.2 kg(Converted to: 187 lb 13 oz) Weight Source : Standing scale Dosing Weight Clinic : 85.2 kg Clinic BSA : 1.93 Body Mass Index : 34.13 kg/m2 EV GUTIERREZ LPN - 04/28/2014 7:39 FINANCIAL PLANNING ADVISER General Info Information Given By : Patient Languages : Stateless Is Patient Female and 13-50 no hysterectomy : Yes Status : Patient denies Are you ? : No EV GUTIERREZ LPN - 04/28/2014 7:39 FINANCIAL PLANNING ADVISER Subjective Pain Symptoms : No EV GUTIERREZ LPN - 04/28/2014 7:39 FINANCIAL PLANNING ADVISER Dependent Habits Tobacco Use/Currently Using : Yes Exposure to Tobacco Smoke : Patient smokes Smoking Status : Current every day smoker EV GUTIERREZ LPN - 04/28/2014 7:39 FINANCIAL PLANNING ADVISER Tobacco Use Grid Type : Cigarettes Cigarette Use Packs/Day : 0.5 EV GUTIERREZ LPN - 04/28/2014 7:39 FINANCIAL PLANNING ADVISER Caffeine Use Grid Caffeine Use : Current Type : Soft drinks Frequency : Occasionally EV GUTIERREZ LPN - 04/28/2014 7:39 FINANCIAL PLANNING ADVISER Recreational Drug Use Grid Drug Use : None EV GUTIERREZ BOX BENDER - 04/28/2014 7:39 FINANCIAL PLANNING ADVISER ID Screen Drug Resistant Organism : No Travel Within Last 21 Days : No EV GUTIERREZ BOX BENDER - 04/28/2014 7:39 FINANCIAL PLANNING ADVISER Source: [facility] [employer] Document Id: [id number] FINANCIAL PLANNING ADVISER!47 documented in this encounter Plan of Treatment Not on filedocumented as of this encounter Visit Diagnoses Not on filedocumented in this encounter Additional Health Concerns Assessment Noted Time PHQ-9 Depression Total Score: 3 06/13/2013 6:47 AM FINANCIAL PLANNING ADVISER documented as of this encounter
--- OUTSIDE RECORDS SUMMARY | 2022-03-16 15:07 | XMS_ITS | Encounter Summary ---
:1980 Author Organization [facility] Address [address] [place] [address] Care Team Providers Name Role Phone Unavailable Primary Care Provider Unavailable Encounter Details Date Type Department Care Team Description 06/13/2014 Hospital Encounter HX [facility] Andrew Vera, LO, C.N.P., D. N.P. [address] [place] [address] (Wo rk) Social History Tobacco [...] How often do you attend voodoo or More than 4 times per year 11/09/2020 anglican services? Do you belong to any clubs or No 11/09/2020 organizations such as voodoo groups, unions, fraternal [...] Sign Reading Time Taken Comments Blood Pressure 96/66 06/13/2014 8:19 AM DREDGE PIPEMAN Pulse 68 06/13/2014 8:19 AM DREDGE PIPEMAN Temperature - - Respiratory Rate 16 06/13/2014 8:19 AM DREDGE PIPEMAN Oxygen Saturation - - Inhaled Oxygen Concentration - - Weight 86.4 kg (190 lb 7.6 oz) 06/13/2014 8:19 AM DREDGE PIPEMAN Height 158 cm (5' 2.21) 06/13/2014 8:19 AM DREDGE PIPEMAN Body Mass Index 34.61 06/13/2014 8:19 AM DREDGE PIPEMAN documented in this encounter Medications at Time of Discharge Medication Sig Dispensed Refills Start Date End Date ACETAMINOPHEN ORAL Take 500 mg by 0 06/04/2013 mouth every 6 (six) hours as needed. ibuprofen Take 4 tablets by 0 04/22/2014 020 (for_ADVIL,MOTRIN) 200 mg mouth as needed. tablet documented as of this encounter H&P Notes Andrew Vera D.N.P., C.N.P. - 06/13/2014 8:09 AM CST [id number] CHIEF COMPLAINT/REASON FOR VISIT Routine physical examination. HISTORY OF PRESENT ILLNESS Patient is a 34-year-old female who presents to clinic today for routine physical examination. 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 It was noted that the patient did follow up with Gynecology services for a colposcopy at an outside facility in which she recalls that this was done shortly thereafter with a repeat Pap that was completed. She also has recently delivered her son and is coming in for a repeat Paptoday. She indicates that she feels overall she is doing quite well. She has been having some intermi ttent upper back discomfort which she attributes to most likely the size of her breasts. She indicates that she feels that her breasts have become quite heavy after the delivery of her last child whichfeels like it is bringing her shoulders forward. She indicates that down the road she may want to consider a breast reduction to help with her back discomfort, but indicates that she is not interested at this time to pursue this. She indicates that she does not have any other concerns or issues. She is currently using Topamax 25 mg by mouth daily; however, was having some side effects, just feeling alittle odd being on this medication daily, but is interested in trialing on an every other day approach and needs this to be renewed. She also uses as needed ketorolac at onset of migraines in which she is aware she is not to use more than 40 mg in a day and also she does not use it with any other NSAIDs. She is able to prevent ER visits with the use of the ketorolac. She otherwise indicates that sheis not having any other further concerns or issues. PAST MEDICAL/SURGICAL HISTORY MEDICAL HISTORY: Abnormal Pap smear in 2009. Acne vulgaris. Allergic rhinitis diagnosed in 2011. Anxiety since 2011. Migraine headaches since 1989. Intermittent sinusitis since 2000. Thoracic and lumbosacral neuritis or radiculitis in 2007. History of tobacco usage. SURGICAL HISTORY: D and C, March of 2013. Endometrial biopsy in 2009. Tonsillectomy as a child. Sinus surgery in 2001. PE tubes placed at age 8. FAMILY HISTORY Mother with a history of type 2 diabetes mellitus and liver failure Father with a history of hypertension, headaches One sister with a history of asthma. SOCIAL HISTORY Patient is presently in a relationship. 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 She does have a history of smoking which she is currently working on quitting. She has occasional alcohol intake and denies any illicit drug usage. VITAL SIGNS Height of 158 cm. Weight 86.4 kg. BMI 34.61 kg/m2. Blood pressure is 96/66, temp 36.8 degrees centigrade, respirations 16 per minute, pulse is 68 beats per minute. ALLERGIES Augmentin, Cipro, quinolones, and silicone. MEDICATIONS Benzoyl peroxide 5% topical gel apply to the affected areas as needed for acne. Ketorolac 10 mg by mouth up to 4 times a day as needed for migraine headaches, not to exceed 40 mg in a day Tylenol [id number] as needed. Implanon. Ibuprofen as needed. SYSTEMS REVIEW GENERAL: Denies extreme fatigue, unexplained weight loss/gain or concerns for depression, thoughts of suicide, trouble concentrating or memory concerns. HEENT: Denies visual changes/disturbances, hearing changes/disturbances, difficulty chewing/swallowing. HEART: Denies palpitations, chest pain, shortness of breath with and without exertion. GASTROINTESTINAL: Denies abdominal pain, difficulty having bowel movements or frequent episodes of diarrhea. GENITOURINARY : Denies urgency, frequency, or burning with urination. Denies coital or post coital pain or other coital concerns. MUSCULOSKELETAL: Denies joint pain or muscle fatigue. NEUROLOGIC: Denies frequent headaches, dizziness or numbness/tinglingof the extremities. PHYSICAL EXAMINATION GENERAL: Patient is alert/oriented x3. PSYCHIATRIC: Patients speech is focused and well directed, affect is appropriate. HEAD: Normocephalic/atraumatic. PUPILS: GLEN. OROPHARYNX: [place] and moist. TYMPANIC MEMBRANES: Bilateral TMs are clear, bony landmarks noted and within normal limits. NARES: Patent, no erythema or drainage noted. NECK: No anterior/posterior lymphadenopathy or thyromegaly noted. HEART: Regular S1, S2, no murmurs, rubs or gallops noted. LUNGS: Clear to auscultation, no prolonged expiratory phases, wheezing, rales or rhonchi noted. ABDOMEN: Bowel sounds positive in all 4 quadrants, no hepatosplenomegaly noted. BREASTS: Bilateral breasts are pendulous with noted ptosis bilaterally. GENITOURINARY: Normal female external genitalia. Normal appearing cervix without unusual discharge and nonfriable. Uterus and adnexa are unremarkable. Patient denies cervical motion tenderness. PULSES: Radial/pedal/tibial pulses +2/4. SKIN: Without unusual rashes or suspicious lesions. EXTREMITIES: Equally strong/intact, no lower extremity edema noted. NEUROLOGIC: Upper/lower deep tendon reflexes are brisk at +2. Cranial nerves II- XII are grossly intact and symmetric. Patient ambulates with a steady gait. DIAGNOSTICS Pap is presently pending. IMPRESSION/REPORT/PLAN 1. Routine physical examination. 2. Back pain. 3. History of migraines. PLAN: 1. Routine physical examination: Presently, at this time I indicated we will plan on contacting the patient regarding her Pap results. We will determine at that point in time what further treatment recommendations are advised. The patient felt very comfortable with this treatment plan. 2. Back pain: Presently, at this time the patient would like to defer any further ongoing medical treatment for her back discomfort. She will work on posture and wearing supportive bras. However, I do encourage that she follow up if in fact she decides to pursue breast reduction for her back discomfort. She feels comfortable with this treatment plan. 3. History of migraine headaches: Presently at this time, I did reinstate the patient's Topamax 25 mg tablets with instructions. I did advise that the patient continue her Topamax 25 mg by mouth in which she may trial this actually every other day to see if this would also help reduce her onset of migraines. The patient feels very comfortable with this treatment plan. She otherwise did not have any further questions or concerns. Patient left our clinic in no acute distress. Ready to learn. No apparent learning barriers were identified. Learning preferences include listening. Explained diagnosis and treatment plan. Patient/Child/Caregiver expressed understanding of the content. Leslie JacobsNKurtis/F.N.P/mary ellen Electronically Signed By: ANDREW VERA DNP, FNP On: 06/13/2014 01:30 PM Source: [facility] MHSDOLBEYNONRADSYS Document Id: [id number] GE PIPEMAN documented in this encounter Miscellaneous Notes Miscellaneous - Delma Gutierrez L.P.N. - 06/13/2014 1:45 PM CST PHQ-9 PHQ-9 Entered On: 06/13/2014 13:45 DREDGE PIPEMAN Performed On: 06/13/2014 13:45 DREDGE PIPEMAN by DELMA GUTIERREZ PREPRESS OPERATOR, RT PHQ-9 Little interest or pleasure in doing things : Not at all Feeling down, depressed, or hopeless : Not at all Trouble falling or staying asleep, or sleeping too much : Not at all Feeling tired or having little energy : Several days Poor appetite or overeating : Not at all Feeling bad about yourself or that you are a failure : Not at all Trouble concentrating on things : Not at all Moving or speaking slowly; restless or fidgety : Not at all Thoughts that you would be better off /hurting self : Not at all PHQ-9 Calculated Score : 1 Problems make work, home, or dealing with others : Somewhat difficult DELMA GUTIERREZ LPN, RT - 06/13/2014 13:45 DREDGE PIPEMAN [facility] Document Id: [id number] DREDGE PIPEMAN!13 GE PIPEMAN Miscellaneous - Andrew Vera D.N.P., C.N.P. - 06/13/2014 9:44 AM DREDGE PIPEMAN Ambulatory Patient Summary [address] [id number] Visit Information Name: [facility] Number: [id number] Current Date: 06/13/2014 09:44:37 Physicians Attending Provider: ANDREW VERA DNP, FNP [...] every 6 hours as needed for Pain benzoyl peroxide topical (benzoyl peroxide 5% topical gel) 1 sonya, Topical, two times a day etonogestrel (Implanon 68 mg subcutaneous implant) 1 Each, Subcutaneous, once ibuprofen (ibuprofen 200 mg oral tablet) 4 Tablet(s), Oral, as needed ketorolac (ketorolac 10 mg oral tablet) 1 Tablet(s), Oral, four times a day as needed for Migraine headache (not to exceed 40 mg/day). NOT TO BE USED WITH OTHER NSAIDS [facility] [address] [place] [address] Stop Taking the Following Medications: Medication list as of 06-13-14 09:44 Attention: If you have any medications at [...] Signed By: ANDREW VERA DNP, LORETO Signed On:13-JUN-2014 09:06:14 Your Allergies & Intolerances Substance Reaction Symptoms [...] appointment detail needed. Your Goals/Additional instructions: Source: [facility] POWERCHART Document Id: [id number] GE PIPEMAN Miscellaneous - Andrew Vera, Tristin.N.P., C.N.P. - 06/13/2014 9:44 AM DREDGE PIPEMAN Ambulatory Discharge Medication List [address] [place] [id number] Visit Information Name: [facility] Number: [id number] Visit Date: 06/13/2014 09:44:35 Attending Provider: ANDREW VERA DNP, FNP Primary [...] every 6 hours as needed for Pain benzoyl peroxide topical (benzoyl peroxide 5% topical gel) 1 sonya, Topical, two times a day etonogestrel (Implanon 68 mg subcutaneous implant) 1 Each, Subcutaneous, once ibuprofen (ibuprofen 200 mg oral tablet) 4 Tablet(s), Oral, as needed ketorolac (ketorolac 10 mg oral tablet) 1 Tablet(s), Oral, four times a day as needed for Migraine headache (not to exceed 40 mg/day). NOT TO BE USED WITH OTHER NSAIDS New Routed to [facility] [address] Stop Taking the Following Medications: Medication list as of 06-13-14 09:44 Attention: If you have any medications at [...] Signed By: ANDREW VERA DNP, FNP Signed On:13-JUN-2014 09:06:14 Additional Information: Source: [facility] POWERCHART Document Id: [id number] GE PIPEMAN Miscellaneous - William Mishra L.P.N. - 06/13/2014 8:27 AM CST Health Assessment Health Assessment Entered On: 06/13/2014 8:28 DREDGE PIPEMAN Performed On: 06/13/2014 8:27 DREDGE PIPEMAN by WILLIAM MISHRA LPN Health Assessment Complete Health Assessment Complete or Modified : Annual Health Assessment Annual Health Assessment Completed : Yes WILLIAM MISHRA LPN - 06/13/2014 8:27 DREDGE PIPEMAN Nutrition Nutrition Risk Factors by History Adult : None MISHRAWILLIAM LPN - 06/13/2014 8:27 DREDGE PIPEMAN Functional Current Daily Living Assistance : None WILLIAM MISHRA LPN - 06/13/2014 8:27 DREDGE PIPEMAN Dependent Habits Tobacco Use/Currently Using : Yes Tobacco Use/Advised to Quit : Yes Exposure to Tobacco Smoke : Patient smokes Smoking Status : Current every day smoker WILLIAM MISHAR LPN 06/13/2014 8:27 DREDGE PIPEMAN Tobacco Use Grid Type : Cigarettes Cigarette Use Packs/Day : 0.5 WILLIAM MISHRA LPN - 06/13/2014 8:27 DREDGE PIPEMAN Alcohol Use : Yes WILLIAM MISHRA LPN - 06/13/2014 8:27 DREDGE PIPEMAN Caffeine Use Grid Caffeine Use : Current Type : Soft drinks Frequency : Occasionally WILLIAM MISHRA LPN - 06/13/2014 8:27 DREDGE PIPEMAN Recreational Drug Use Grid Drug Use : None WILLIAM MISHRA LPN 06/13/2014 8:27 DREDGE PIPEMAN AUDIT Tool How Often Do You Have A Drink : Monthly or less How Many Drinks in a Day When Drinking : 1 or 2 Six or More Drinks On One Occassion : Never Audit Phase 1 Score : 1 WILLIAM MISHRA LPN 06/13/2014 8:27 DREDGE PIPEMAN Psychosocial Domestic Abuse Concerns : None Orthodox Preference : No qualifying data available. WILLIAM MISHRA LPN - 06/13/2014 8:27 DREDGE PIPEMAN Advance Directive Advanced Directives : No Advance Directive Additional Information : No WILLIAM MISHRA LPN 06/13/2014 8:27 DREDGE PIPEMAN Educ Needs Learning Style Preference Adult Grid Patient : None Family : None WILLIAM MISHRA LPN 06/13/2014 8:27 DREDGE PIPEMAN Source: [facility] POWERCHART Document Id: [id number] DREDGE PIPEMAN!41 GE PIPEMAN Miscellaneous - William Mishra L.P.N. - 06/13/2014 8:19 AM CST Adult Contracts Paralegal Intake/History Document Has Been Updated Adult Contracts Paralegal Intake/History Entered On: 06/13/2014 8:19 DREDGE PIPEMAN Performed On: 06/13/2014 8:19 DREDGE PIPEMAN by WILLIAM MISHRA LPN Intake Temperature Core : 36.8 DegC(Converted to: 98.2 DegF) Peripheral Pulse Rate : 68 /min Respiratory Rate : 16 /min Heart Rhythm : Regular Systolic Blood Pressure : 96 mmHg Diastolic Blood Pressure : 66 mmHg NIBP Mean : 76 mmHg BP Location : Left upper extremity Blood Pressure Cuff Size : Large Actual Weight : 86.4 kg(Converted to: 190 lb 8 oz) Dosing Weight Clinic : 86.4 kg Clinic BSA : 1.95 Body Mass Index : 34.61 kg/m2 Chief Complaint : Yearly physical, not taking topamax not working WILLIAM MISHRA LPN - 06/13/2014 8:20 DREDGE PIPEMAN Height : 158 cm(Converted to: 5 ft 2 inch(es), 62 inch(es)) Weight Source : Standing scale WILLIAM MISHRA LPN - 06/13/2014 8:19 DREDGE PIPEMAN General Info Information Given By : Patient, Daughter Preferred Communication Mode : Verbal Languages : Malay Is Patient Female and 13-50 no hysterectomy : Yes Status : Patient denies Are you ? : No WILLIAM MISHRA LPN - 06/13/2014 8:19 DREDGE PIPEMAN Subjective Pain Symptoms : No WILLIAM MISHRA LPN - 06/13/2014 8:19 DREDGE PIPEMAN Dependent Habits Tobacco Use/Currently Using : Yes Tobacco Use/Advised to Quit : Yes Exposure to Tobacco Smoke : Patient smokes Smoking Status : Current every day smoker WILLIAM MISHRA LPN 06/13/2014 8:19 DREDGE PIPEMAN Tobacco Use Grid Type : Cigarettes Cigarette Use Packs/Day : 0.5 WILLIAM MISHRA LPN 06/13/2014 8:19 DREDGE PIPEMAN Alcohol Use : Yes WILLIAM MISHRA LPN 06/13/2014 8:19 DREDGE PIPEMAN Caffeine Use Grid Caffeine Use : Current Type : Soft drinks Frequency : Occasionally WILLIAM MISHRA LPN - 06/13/2014 8:19 DREDGE PIPEMAN Recreational Drug Use Grid Drug Use : None WILLIAM MISHRA LPN 06/13/2014 8:19 DREDGE PIPEMAN ID Screen Drug Resistant Organism : No Travel Within Last 21 Days : No Contact with someone with Ebola : No VALDESROBYN Hannon PREPRESS OPERATOR - 06/13/2014 8:19 DREDGE PIPEMAN Source: [facility] POWERCHART Document Id: [id number] DREDGE PIPEMAN!16 GE PIPEMAN documented in this encounter Plan of Treatment Not on filedocumented as of this encounter Procedures Procedure Name Priority Date/Time Associated Diagnosis Comme nts HXPHYS INTERP OF Routine 06/13/2014 9:00 AM Resul ts for this THIN PREP, PAP DREDGE PIPEMAN procedure are in the results section. THINPREP SCREEN HPV Routine 06/13/2014 9:00 AM Re sults for this REFLEX DREDGE PIPEMAN procedure are i n the results section. documented in this encounter Results HXPHYS INTERP OF THIN PREP, PAP (06/13/2014 9:00 AM DREDGE PIPEMAN) [facility] Method Time Signature Interpretation Performed POWERCHART Comment: Test Performed by: [place] [address] Oral Therapist: Markus Joyce II, M.D., Ph.D. Specimen Anatomical Collection Method Collection Time Receive d Time (Source) Location / / Volume Laterality Cervix/Endocervi 06/13/2014 9:00 AM 06/14 7:35 x DREDGE PIPEMAN AM DREDGE PIPEMAN Historical Provider LAB HISTORICAL ORDERS Performing Organization Address City/State/ZIP Code Phon e Number POWERCHART Pathology ThinPrep Screen HPV Reflex (06/13/2014 9:00 AM DREDGE PIPEMAN) [facility] Method Time Signature Interpretation [id number] POWERCHART HXThPrep Scrn See Comment POWERCHART [facility] Comment: A. ??ThinPrep Pap Test Screen (Cervical/ Endocervical HPV Reflex): Satisfactory for evaluation. Squamous epithelial cell abnormality Atypical squamous cells of undetermined significance. High Risk HPV testing results are POSITI VE. See specific genotype results below. HPV with Genotyping, PCR, ThinPrep: HPV High Risk Type 16, PCR: ??NEGATIVE HPV High Risk Type 18, PCR: ??NEGATIVE HPV other High Risk types, PCR: ??POSITI VE Other High Risk HPV types include: ??31, 33, 35, 39, 45, 51, 52, 56, 58, 59, 66, and 68. HXThPrep Scrn [facility]to[facility] See Comment [place] Comment: RESULT: Juan Francisco Wise, CT(ASC P) HXThPrep Scrn Path[facility] See Comment [place] Comment: RESULT: 06/20/2014 14:43 Interpreted by: Dakotah Chavis M.D. Report electronically signed by Basil Chavis M.D. Transcribed by: [facility] ??06/19/2014 15:00:42 HX Spec Desc-Price See Comment POWERCHART Comment: A. ??ThinPrep Pap Test Screen (Cervical/ Endocervical HPV Reflex): Received cloudy specimen in ThinPrep via l. Test Performed by: [place] [address] Oral Therapist: Markus Joyce II, M.D., Ph.D. Specimen (Source) Anatomical Collection Method Collection Time Re ceived Time Location / / Volume Laterality Cervix/Endocervix 06/13/2014 9:00 AM DREDGE PIPEMAN Andrew Vera APRN, C.N.P., D.N.P. LAB PAP PATHDX ORDERABLES Performing Organization Address City/State/ZIP Code Phon e Number POWERCHART documented in this encounter Visit Diagnoses Not on filedocumented in this encounter Additional Health Concerns Assessment Noted Time PHQ-9 Depression Total Score: 1 06/13/2014 1:45 PM DREDGE PIPEMAN documented as of this encounter
--- OUTSIDE RECORDS SUMMARY | 2022-03-16 15:07 | XMS_ITS | Encounter Summary ---
:1980 Author Organization [facility] Address [address] [place] [address] Care Team Providers Name Role Phone Unavailable Primary Care Provider Unavailable Encounter Details Date Type Department Care Team Description 07/10/2014 Hospital Encounter HX [facility] Vineet shetty M.D. [address] [place] [phone] (Wo rk) Social History Tobacco Use [...] Sign Reading Time Taken Comments Blood Pressure 117/80 07/10/2014 8:14 AM CDT Pulse 104 07/10/2014 8:14 AM CDT Temperature - - Respiratory Rate 16 07/10/2014 8:14 AM CDT Oxygen Saturation - - Inhaled Oxygen Concentration - - Weight 85.7 kg (188 lb 15 oz) 07/10/2014 8:14 AM CDT Height 158 cm (5' 2.21) 07/10/2014 8:14 AM CDT Body Mass Index 34.33 07/10/2014 8:14 AM CDT documented in this encounter Medications at Time of Discharge Medication Sig Dispensed Refills Start Date End Date ACETAMINOPHEN ORAL Take 500 mg by 0 06/04/2013 mouth every 6 (six) hours as needed. ibuprofen Take 4 tablets by 0 04/22/2014 020 (for_ADVIL,MOTRIN) 200 mg mouth as needed. tablet documented as of this encounter Progress Notes Vineet Schmidt M.D. - 07/09/2014 6:53 AM CDT Clinic Full Note CHIEF COMPLAINT/REASON FOR VISIT Coposcopy HISTORY OF PRESENT ILLNESS Carter presents today for a colposcopy. She has had a history of cervical dysplasia. Her last colposcopy showed LISSETT-1. Repeat Pap smear showed continued low grade intraepithelial lesion. She was at that time so no further testing was completed. Most recent Pap smear was ASCUS with high-risk HPV. She was referred for colposcopy for this reason. She had the Nexplanon placed following her recentpregnancy and notes irregular bleeding. She is bleeding today. She also reports a cold with head congestion as well as a cough and a plugged left ear. She has needed a tympanostomy as an adult for a similar problem. MEDICATIONS benzoyl peroxide 5% topical gel, 1 sonya, Topical, 2xDay, 6 refills ibuprofen 200 mg oral tablet, 800 mg, 4 tab(s), PO, PRN Implanon 68 mg subcutaneous implant, 68 mg, 1 each, Subcut., Once ketorolac 10 mg oral tablet, 10 mg, 1 tab(s), (not to exceed 40 mg/day). NOT TO BE USED WITH OTHER NSAIDS, PO, 4xDay, PRN, 0 refills Medrol Dosepak 4 mg oral tablet, See special instructions, PO, As Directed, 0 refills Tylenol, 500 mg, PO, q6hr, [...] as child (1980). SOCIAL HISTORY Date Time: 07/10/2014 08:14 Tobacco: Smoking Status: Current every day smoker Exposure: Patient smokes Alcohol: Use: No Recreational Drugs: Use: None Type: No Results Found FAMILY HISTORY Mother:Positive: Diabetes mellitus; Liver Father:Positive: MEDRANO - Headache; Hypertension Sister:Positive: Asthma SYSTEMS REVIEW As per HPI. VITAL SIGNS T: 36.8 ??C (Core) HR: 104 RR: 16 BP: 117 / 80 SpO2: 97% HT: 158 cm WT: 85.7 kg BMI: 34.33 PHYSICAL EXAMINATION GENERAL: Patient is alert and oriented in no acute distress. HEENT: Left TM there is to be bulging with fluid. There is no erythema. Right TM has a very thin meniscus at the bottom but no erythema. Nasal mucosa is swollen and erythematous. Oral mucosa is moist. PROCEDURE: Colposcopy with biopsy and endocervical curettage. The procedure was reviewed with the patient. She has had this done multiple times in the past. She was aware of the risks of bleeding, infection, or a missed lesion. She took ibuprofen prior to the procedure. Patient was placed in a dorsal lithotomy position. External genitalia was unremarkable. Speculum was inserted and cervix was visualized. The squamocolumnar junction was right at the opening of the os but fully visualized. There were no significant cervical abnormalities visualized by the colposcope. Acetic acid was then applied to the cervix with cotton balls. The cotton balls were removed and the cervix was revisualized. She had acetowhite uptake at the squamocolumnar junction from the 7 o'clock to 9 o'clock position as well as the 3 o'clock position. We obtained biopsies from the 8 o'clock position and the 3 o'clock position. We then performed an endocervical curettage. Bleeding was controlled with pressure. Blood loss was minimal. Patient tolerated the procedure well. LAB RESULTS HCG negative IMPRESSION/REPORT/PLAN 1. Atypical Squamous Cells Undeterm Significance (ASCUS) Cervix The colposcopy was completed and biopsies were obtained. Patient will return in 1 week to get the results. She was advised to monitor for signs of significant cramping, abnormal discharge, heavy bleeding, or fever. Ordered: Colposcopy Cervix Include Vagina w/Biopsy of Cervix & Endocervical Curettage Charge OV Est Pt Level 3 - 16562 - 15 min 2. Disorder Eustachian Tube L We recommended patient continue with decongestants. If this is not improving in the next couple weeks, she is to call and we will refer her to the ENT. Ordered: OV Est Pt Level 3 - 20598 - 15 min Orders: codeine-guaiFENesin, 10 mL, PO, q4hr, PRN cough, cough, # 120 mL, 0 Refill(s), Acute Surg Path, Level IV, Wet -[place] 9646 Electronically Signed By: VINEET ARCHULETA MD On: 07/11/2014 06:55 AM Source: [facility] POWERCHART Document Id: [id number] documented in this encounter Miscellaneous Notes Miscellaneous - Vineet Schmidt M.D. - 07/10/2014 8:53 AM CDT Ambulatory Patient Summary [address] [place] [id number] Visit Information Name: CARTER LEI [facility] Number: [id number] Current Date: 07/10/2014 08:53:07 Physicians Attending Provider: VINEET ARCHULETA MD Primary Care Provider: ANDREW VERA DNP, IT TECHNICAL SUPPORT SPECIALIST CARTER LEI has been given the following list of [...] sonya, Topical, two times a day codeine-guaiFENesin (Cheratussin AC 10 mg-100 mg/5 mL oral syrup) 10 Milliliter, Oral, every 4 hoursas needed for cough cough New Routed to Printer etonogestrel (Implanon 68 mg subcutaneous implant) 1 Each, Subcutaneous, once ibuprofen (ibuprofen 200 mg oral tablet) 4 Tablet(s), Oral, as needed ketorolac (ketorolac 10 mg oral tablet) 1 Tablet(s), Oral, four times a day as needed for Migraine headache (not to exceed 40 mg/day). NOT TO BE USED WITH OTHER NSAIDS methylPREDNISolone (Medrol Dosepak 4 mg oral tablet) See special instructions, Oral, as directed x 6day(s) Stop Taking the Following Medications: Medication list as of 07-10-14 08:53 Attention: If you have any medications at home that are not on this list, DO NOT take them until youcontact your provider for clarification. Give a copy of your medication list to your primary care provider. Update your medication list any time medications or doses are changed and carry your medication list at all times in case of emergency. Electronically Signed By: VINEET ARCHULETA MD Signed On:10-JUL-2014 08:52:29 Your Allergies & Intolerances Substance Reaction Symptoms [...] appointment detail needed. Your Goals/Additional instructions: [facility] POWER[facility] Document Id: [id number] Miscellaneous - Vineet Schmidt M.D. - 07/10/2014 8:53 AM CDT Ambulatory Discharge Medication List [address] [id number] Visit Information Name: CARTER LEI [facility] Number: [id number] Visit Date: 07/10/2014 08:53:05 Attending Provider: VINEET ARCHULETA MD Primary Care Provider: ANDREW VERA DNP, IT TECHNICAL SUPPORT SPECIALIST CARTER LEI has been given the following list of [...] sonya, Topical, two times a day codeine-guaiFENesin (Cheratussin AC 10 mg-100 mg/5 mL oral syrup) 10 Milliliter, Oral, every 4 hoursas needed for cough cough New Routed to Printer etonogestrel (Implanon 68 mg subcutaneous implant) 1 Each, Subcutaneous, once ibuprofen (ibuprofen 200 mg oral tablet) 4 Tablet(s), Oral, as needed ketorolac (ketorolac 10 mg oral tablet) 1 Tablet(s), Oral, four times a day as needed for Migraine headache (not to exceed 40 mg/day). NOT TO BE USED WITH OTHER NSAIDS methylPREDNISolone (Medrol Dosepak 4 mg oral tablet) See special instructions, Oral, as directed x 6day(s) Stop Taking the Following Medications: Medication list as of 07-10-14 08:53 Attention: If you have any medications at home that are not on this list, DO NOT take them until youcontact your provider for clarification. Give a copy of your medication list to your primary care provider. Update your medication list any time medications or doses are changed and carry your medication list at all times in case of emergency. Electronically Signed By: VINEET ARCHULETA MD Signed On:10-JUL-2014 08:52:29 Additional Information: Source: [facility] POWERCHART Document Id: [id number] Miscellaneous - William Lin, L.P.N. - 07/10/2014 8:14 AM CDT Adult Animal Daycare Provider Intake/History Adult Animal Daycare Provider Intake/History Entered On: 07/10/2014 8:17 CDT Performed On: 07/10/2014 8:14 CDT by WILLIAM LIN LPN Intake Chief Complaint : Coposcopy Onset of Symptoms : Head congestion, left ear plugged, cough Temperature Core : 36.8 DegC(Converted to: 98.2 DegF) Peripheral Pulse Rate : 104 /min (HI) Respiratory Rate : 16 /min Heart Rhythm : Regular Systolic Blood Pressure : 117 mmHg Diastolic Blood Pressure : 80 mmHg NIBP Mean : 92 mmHg BP Location : Left upper extremity Blood Pressure Cuff Size : Large SpO2 : 97 % Oxygen Therapy : Room air Height : 158 cm(Converted to: 5 ft 2 inch(es), 62 inch(es)) Actual Weight : 85.7 kg(Converted to: 188 lb 15 oz) Dosing Weight Clinic : 85.7 kg Clinic BSA : 1.94 Body Mass Index : 34.33 kg/m2 WILLIAM LIN [facility] - 07/10/2014 8:14 CDT General Info Information Given By : Patient Preferred Communication Mode : Verbal Languages : Maori Is Patient Female and 13-50 no hysterectomy : Yes Status : Patient denies Are you ? : No WILLIAM LIN [facility] - 07/10/2014 8:14 CDT Subjective Pain Symptoms : No WILLIAM LIN LPN 07/10/2014 8:14 CDT Dependent Habits Tobacco Use/Currently Using : Yes Tobacco Use/Advised to Quit : Yes Exposure to Tobacco Smoke : Patient smokes Smoking Status : Current every day smoker WILLIAM LIN [facility] 07/10/2014 8:14 CDT Tobacco Use Grid Type : Cigarettes Cigarette Use Packs/Day : 0.5 WILLIAM LIN [facility] - 07/10/2014 8:14 CDT Alcohol Use : No WILLIAM LIN [facility] 07/10/2014 8:14 CDT Caffeine Use Grid Caffeine Use : Current Type : Coffee, Soft drinks Frequency : Occasionally WILLIAM LIN [facility] - 07/10/2014 8:14 CDT Recreational Drug Use Grid Drug Use : None WILLIAM LIN [facility] 07/10/2014 8:14 CDT ID Screen Drug Resistant Organism : No Travel Within Last 21 Days : No Contact with someone with Ebola : No WILLIAM LIN LPN - 07/10/2014 8:14 CDT Source: [facility] [employer] Document Id: [id number] CDT!51 documented in this encounter Plan of Treatment Not on filedocumented as of this encounter Procedures Procedure Name Priority Date/Time Associated Diagnosis Comme nts SURGICAL PATHOLOGY Routine 07/10/2014 8:30 AM Res ults for this CDT procedure are i n the results section. TEST, U Routine 07/10/2014 8:10 AM Resu lts for this CDT procedure are i n the results section. documented in this encounter Results Pathology Anatpath Wet Tissue (07/10/2014 8:30 AM CDT) [facility] Method Time Signature HXSurg IV [id number] POWERCHART [facility] HXSurg IV See Comment POWERCHART [facility] Comment: RESULT: Vineet Omalley M.D. HXSurg IV [facility] See Comment POWERCHA RT Comment: [facility] [address] [place] [address] SLIDE DISPOSITION: HXSurg IV [facility] See Comment POWER CHART Comment: [id number] A. ??Received in formalin labeled with t aleksandar patient's name and and lab eled as ectocervix 8:00 and 3:00 are three newby irregular portions o f tissue, ranging from 0.3-0.5 cm in greatest dimension. The sp ecimens are submitted en toto in cassette A1. B. ??Received in formalin labeled with t he patient's name and and labeled as endocervical curettage are multiple newby tissue fragments admixed wi th a small amount of mucus, 1.8 x 1.4 x 0.3 cm in aggregate. The spe cimens are submitted en toto in cassette B1. Part A: ??Cervical Biopsy, 8:00 and 3:00 ectocervix 1 8:00 and 3:00 ectocervix Part B: ??endocervical curettings 1 endocervical curettings Basil Noriega M.D. [facility] HXSurg IV [facility] See Comment POWER CHART Comment: A. ??Uterus, cervix, 8:00 and 3:00, biop sies: ??Cervical intraepithelial lesion, grade 1 (CIN1, l ow-grade squamous intraepithelial lesion). B. ??Uterus, cervix, curettings: ??Scant benign endocervical epithelium and mucus. Seen in consultation with Dr. Basil Parks nry. Participated in interpretation: Brandyn shannon M.D. [phone] 07/14/2014 17:20 Interpreted by: Yanira Story M.D. [phone] Report electronically signed by Yanira Story M.D. Transcribed by: [email or web address] 07/14/2014 16:26:13 Test Performed by: [address] [address] Logistics Vice President: Markus Joyce II, M.D., Ph.D. Specimen (Source) Anatomical Collection Method Collection Time Re ceived Time Location / / Volume Laterality Tissue 07/10/2014 8:30 AM CDT Vineet Mcwilliams M.D. LAB SURG PATH ORDERABLE S Performing Organization Address City/State/ZIP Code Phon e Number POWERCHART Test, Qualitative, Urine (07/10/2014 8:10 AM CDT) [facility] gist Method Time Signature HXBeta-hCG Negative POWERCHART Qualitative Urine Specimen (Source) Anatomical Collection Method Collection Time Re ceived Time Location / / Volume Laterality Urine 07/10/2014 8:10 AM CDT Vineet Mcwilliams M.D. LAB URINE ORDERABLES Performing Organization Address City/State/ZIP Code Phon e Number POWERCHART documented in this encounter Visit Diagnoses Not on filedocumented in this encounter Additional Health Concerns Assessment Noted Time PHQ-9 Depression Total Score: 1 06/13/2014 1:45 PM DISTRIBUTION TECHNICIAN documented as of this encounter
--- OUTSIDE RECORDS SUMMARY | 2022-03-16 15:07 | XMS_ITS | Encounter Summary ---
:1980 Author Organization [facility] Address [address] [place] [address] Care Team Providers Name Role Phone Unavailable Primary Care Provider Unavailable Encounter Details Date Type Department Care Team Description 07/19/2013 Hospital Encounter HX [facility] Myrna Edmonds M.D. Social History Tobacco Use Types Packs/Day Years [...] or slept in a prison (including now)? Sex Assigned at Date Recorded Not on file documented as of this encounter Last Filed Vital Signs Vital Sign Reading Time Taken Comments Blood Pressure 102/63 07/19/2013 1:02 PM CDT Pulse 86 07/19/2013 1:02 PM CDT Temperature - - Respiratory Rate 18 07/19/2013 1:02 PM CDT Oxygen Saturation - - Inhaled Oxygen Concentration - - Weight 86.8 kg (191 lb 5.8 oz) 07/19/2013 1:02 PM CDT Height 157 cm (5' 1.81) 07/19/2013 1:02 PM CDT Body Mass Index 35.21 07/19/2013 1:02 PM CDT documented in this encounter Medications at Time of Discharge Medication Sig Dispensed Refills Start Date End Date ACETAMINOPHEN ORAL Take 500 mg by mouth every 0 0 06/04/2013 06/29/2019 6 (six) hours as needed. documented as of this encounter Progress Notes Myrna Edmonds M.D. - 07/19/2013 12:39 PM CDT [id number] Dulce comes in complaining of a cough, sinus congestion. She is blowing a lot of thick purulent material out of her nose. She has had a lot of pressure in her face. She has had these symptoms for over aweek, but it just seems to be getting worse instead of better. Cough is from drainage in her throat.She does not feel it is coming from her chest. She has a bit of a sore throat and some ear pressure.She does not think she has had a fever. She is 9 weeks , and she is also wondering what she can use for her symptoms, being . PHYSICAL EXAMINATION GENERAL: She appears kind of miserable. VITAL SIGNS: Temp is 35.9. HEENT: TMs are dull. Pharynx is slightly erythematous. NECK: Supple, without lymphadenopathy. LUNGS: Clear. IMPRESSION/REPORT/PLAN 1. Sinusitis. 2. Early . PLAN: I told her she could use Tylenol and/or Benadryl for her symptoms. Probably try to avoid Sudafed. I will start her on amoxicillin 875 mg 1 twice a day for 10 days. Myrna Edmonds M.D./mary ellen Electronically Signed By: MYRNA EDMONDS MD On: 07/22/2013 04:42 PM Source: [facility] MHSDOLBEYNONRADSYS Document Id: [id number] documented in this encounter Miscellaneous Notes Miscellaneous - Myrna Edmonds M.D. - 07/19/2013 1:26 PM CDT Ambulatory Patient Summary [id number] [place], [place] [id number] Visit Information Name: DULCE MENSAH [facility] Number: [id number] Current Date: 07/19/2013 13:26:47 Physicians Attending Provider: MYRNA EDMONDS MD Primary Care Provider: ANDREW VERA DNP, STEM LEAD FORMER DULCE MENSAH has been given the following [...] every 6 hours as needed for Pain amoxicillin (Amoxil 875 mg oral tablet) 1 Tablet(s), Oral, two times a day x 10 day(s) [facility] [address] [address] diphenhydrAMINE (Benadryl) 50 mg, Oral, once a day fluticasone nasal (Flonase 50 mcg/inh nasal spray) 2 [place](s), Nostrils(Both), once a day as needed for Nasal congestion multivitamin, ( Multivitamins with Vitamin B Complex, Vitamin C, Minerals and L-Methylfolate oral capsule) 1 cap, Oral, once a day Stop Taking the Following Medications: acetaminophen-codeine (acetaminophen-codeine 300 mg-30 mg oral tablet) ethinyl estradiol-norgestimate (Ortho Tri-Cyclen Lo oral tablet) ketorolac (Toradol 10 mg oral tablet) [facility] Prescription (KAILYN-D OR) ondansetron (Zofran) topiramate (Topamax 50 mg oral tablet) Medication list as of 07-19-13 13:26 Attention: If you have any medications at home that are not on this list, DO NOT take them until youcontact your provider for clarification. Give a copy of your medication list to your primary care provider. Update your medication list any time medications or doses are changed and carry your medication list at all times in case of emergency. Your Allergies & Intolerances Substance Reaction Symptoms [...] Upcoming Appointments Date Time Location Reason Provider 07/30/2013 10:00 [facility] decreased mood [facility] Attention: Contact your local Clinic if further appointment detail needed. Your Goals/Additional instructions: Source: [facility] POWERCHART Document Id: [id number] Miscellaneous - Myrna Edmonds M.D. - 07/19/2013 1:26 PM CDT Ambulatory Discharge Medication List [address] [id number] Visit Information Name: DULCE MENSAH [facility] Number: [id number] Visit Date: 07/19/2013 13:26:45 Attending Provider: MYRNA EDMONSD MD Primary Care Provider: ANDREW VERA DNP, STEM LEAD FORMER RODRICKDULCE ELEAZAR has been given the following list [...] every 6 hours as needed for Pain amoxicillin (Amoxil 875 mg oral tablet) 1 Tablet(s), Oral, two times a day x 10 day(s) [address] [address] diphenhydrAMINE (Benadryl) 50 mg, Oral, once a day fluticasone nasal (Flonase 50 mcg/inh nasal spray) 2 [place](s), Nostrils(Both), once a day as needed for Nasal congestion multivitamin, ( Multivitamins with Vitamin B Complex, Vitamin C, Minerals and L-Methylfolate oral capsule) 1 cap, Oral, once a day Stop Taking the Following Medications: acetaminophen-codeine (acetaminophen-codeine 300 mg-30 mg oral tablet) ethinyl estradiol-norgestimate (Ortho Tri-Cyclen Lo oral tablet) ketorolac (Toradol 10 mg oral tablet) Mis Prescription (KAILYN-D OR) ondansetron (Zofran) topiramate (Topamax 50 mg oral tablet) Medication list as of 07-19-13 13:26 Attention: If you have any medications at home that are not on this list, DO NOT take them until youcontact your provider for clarification. Give a copy of your medication list to your primary care provider. Update your medication list any time medications or doses are changed and carry your medication list at all times in case of emergency. Additional Information: Source: [facility] POWERCHART Document Id: [id number] Miscellaneous - Laine Diaz, L.P.N. - 07/19/2013 1:02 PM CDT Adult Customer Strategy Manager Intake/History Adult Customer Strategy Manager Intake/History Entered On: 07/19/2013 13:06 CDT Performed On: 07/19/2013 13:02 CDT by LAINE DIAZ LPN Intake Chief Complaint : cold, cough,conjestion Onset of Symptoms : 1 week Temperature Core : 35.9 DegC(Converted to: 96.6 DegF) (LOW) Peripheral Pulse Rate : 86 /min Respiratory Rate : 18 /min Heart Rhythm : Regular Systolic Blood Pressure : 102 mmHg Diastolic Blood Pressure : 63 mmHg NIBP Mean : 76 mmHg BP Location : Left upper extremity Blood Pressure Cuff Size : Regular SpO2 : 99 % Oxygen Therapy : Room air Height : 157 cm(Converted to: 5 ft 2 inch(es), 62 inch(es)) Actual Weight : 86.8 kg(Converted to: 191 lb 6 oz) Weight Source : Standing scale Dosing Weight Clinic : 86.8 kg Clinic BSA : 1.95 Body Mass Index : 35.21 kg/m2 LAINE DIAZ LPN 07/19/2013 13:02 CDT General Info Information Given By : Patient Preferred Communication Mode : Verbal Languages : Armenian LAINE DIAZ LPN 07/19/2013 13:02 CDT Subjective Pain Symptoms : Yes LAINE DIAZ LPN 07/19/2013 13:02 CDT Pain Pain Assessment Grid Pain 1 Location : Other: sinus Intensity : 3 LAINE DIAZ LPN 07/19/2013 13:02 CDT Dependent Habits Tobacco Use/Currently Using : Yes Exposure to Tobacco Smoke : Patient smokes Smoking Status : Current every day smoker LAINE DIAZ LPN 07/19/2013 13:02 CDT Tobacco Use Grid Type : Cigarettes Cigarette Use Packs/Day : 0.5 LAINE DIAZ LPN 07/19/2013 13:02 CDT Alcohol Use : No LAINE DIAZ LPN 07/19/2013 13:02 CDT Caffeine Use Grid Caffeine Use : Current Type : Soft drinks Frequency : Occasionally LAINE DIAZ LPN 07/19/2013 13:02 CDT Recreational Drug Use Grid Drug Use : None LAINE DIAZ LPN 07/19/2013 13:02 CDT Source: [facility] POWERCHART Document Id: [id number] CDT!49 documented in this encounter Plan of Treatment Not on filedocumented as of this encounter Visit Diagnoses Not on filedocumented in this encounter Additional Health Concerns Assessment Noted Time PHQ-9 Depression Total Score: 3 06/13/2013 6:47 AM INTERVENTION SPECIALIST documented as of this encounter
--- OUTSIDE RECORDS SUMMARY | 2022-03-16 15:07 | XMS_ITS | Encounter Summary ---
:1980 Author Organization [facility] Address [address] [place] [address] Care Team Providers Name Role Phone Unavailable Primary Care Provider Unavailable Encounter Details Date Type Department Care Team Description 03/25/2014 Hospital Encounter HX [facility] ME Andrew Vera, LO, C.N.P., D. N.P. [address] [place] [address] (Wo rk) Social History Tobacco [...] Sign Reading Time Taken Comments Blood Pressure 110/84 03/25/2014 2:07 PM LIVE IN COMPANION Pulse 76 03/25/2014 2:07 PM LIVE IN COMPANION Temperature - - Respiratory Rate 16 03/25/2014 2:07 PM LIVE IN COMPANION Oxygen Saturation - - Inhaled Oxygen Concentration - - Weight 82.3 kg (181 lb 7 oz) 03/25/2014 2:07 PM LIVE IN COMPANION Height 157 cm (5' 1.81) 03/25/2014 2:07 PM LIVE IN COMPANION Body Mass Index 33.39 03/25/2014 2:07 PM LIVE IN COMPANION documented in this encounter Medications at Time of Discharge Medication Sig Dispensed Refills Start Date End Date ACETAMINOPHEN ORAL Take 500 mg by mouth every 0 0 06/04/2013 06/29/2019 6 (six) hours as needed. documented as of this encounter Progress Notes Andrew Vera D.N.P., C.N.P. - 03/25/2014 1:59 PM CST [id number] CHIEF COMPLAINT/REASON FOR VISIT Multiple issues. HISTORY OF PRESENT ILLNESS Patient is a 33-year-old female who presents to clinic today with multiple issues. First she indicates that she has been having some recurrence of acne in which she has used topical therapy in the pastwith significant improvement. She indicates that she is wondering if this can be renewed for her at this time. She also indicates that she would like to quit smoking, however, is somewhat reluctant to use any oral medications secondary to her history of migraines. She indicates that she has been having increased caffeine intake and probably has not been as proactive regarding her fluid intake. She has been having more frequent headaches. She would like to avoid a recurrence of migraines at this time. She has been on Topamax within in the past. However, is not required it after recently being to her son January 30, 2014. She is currently not . She does plan on having Nexplanon placed in the next 2 days duration. She otherwise denies having any other further concerns or issues. PAST MEDICAL/SURGICAL HISTORY Reviewed. Please see chart. FAMILY HISTORY Reviewed. Please see chart. MEDICATIONS Reviewed. Please see chart. ALLERGIES Reviewed. Please see chart. PHYSICAL EXAMINATION GENERAL: Patient is alert, well-nourished 33-year-old female, otherwise appears to be in no acute distress. HEAD: Normocephalic, atraumatic. PUPILS: GLEN. OROPHARYNX: [place] and moist. TYMPANIC MEMBRANES: Bilateral TMs are clear, bony landmarks noted and within normal limits. NARES: Patent, no erythema or drainage noted. NECK: No anterior/posterior lymphadenopathy noted. HEART: Regular S1, S2, no murmurs, rubs or gallops noted. LUNGS: Clear to auscultation, no prolonged expiratory phases, wheezing, rales or rhonchi noted. SKIN: Without unusual rashes or suspicious lesions. DIAGNOSTICS Urine quantitative HCG is presently pending. IMPRESSION/REPORT/PLAN 1. Acne vulgaris. 2. Smoking cessation. 3. Allergic rhinitis. PLAN: 1. Acne vulgaris: Presently, at this time, I did reinstate the patient on clindamycin with benzoyl peroxide 1%/5% topical gel to apply to affected areas 2 times a day as needed, acne. Side effects of medication were discussed. Advised if this does not help with her symptoms followup would be warranted. She feels comfortable with this treatment plan. 2. Allergic rhinitis: Presently, at this time, she does have a history of allergic rhinitis in whichI did reinstate her previously prescribed Lashay 180 mg by mouth daily in addition to Flonase nasalspray 50 mcg via inhalation using 1 spray to both nostrils 2 times a day as needed. Whether or not her headaches are now more occurring due to dehydration was discussed with the patient. However, also getting her allergies under better control may also help with her headaches. The patient is advised to follow up as needed. She feels comfortable with this treatment plan. 3. Smoking cessation: Presently, at this time, after discussing the findings at length the patient Iindicated we will plan on contacting her regarding her beta HCG levels and if negative I would recommend we initiate her on nicotine patches starting at 21 mg but she does admit to smoking 1 pack per day and slowly titrating down to 14 and 7 mg over the next 2 weeks' duration in increments of 2 weeks.Side effects of patches were discussed at length the patient. The patient felt very comfortable withthis treatment plan. She otherwise any further questions or concerns. The patient ambulated out of the clinic in no acute distress. Ready to learn. No apparent learning barriers were identified. Learning preferences include listening. Explained diagnosis and treatment plan. Patient/Child/Caregiver expressed understanding of the content. Andrew Vera D.N.P./MaluNStarr/mary ellen Electronically Signed By: ANDREW VERA DNP, FNP On: 03/26/2014 12:59 PM Source: [facility] MHSDOLBEYNONRADSYS Document Id: [id number] IN COMPANION documented in this encounter Miscellaneous Notes Miscellaneous - Andrew Vera D.N.P., C.N.P. - 03/25/2014 3:39 PM LIVE IN COMPANION Ambulatory Patient Summary [address] [id number] Visit Information Name: CARTER MENSAH [facility] Number: [id number] Current Date: 03/25/2014 15:39:05 Physicians Attending Provider: ANDREW VERA DNP, FNP [...] every 6 hours as needed for Pain clindamycin-benzoyl peroxide topical (clindamycin-benzoyl peroxide 1%-5% topical gel) 1 sonya, Topical, two times a day as needed for acne New Routed to [address] [address] diphenhydrAMINE (Benadryl) 50 mg, Oral, once a day fexofenadine (Lashay 180 mg oral tablet) 1 Tablet(s), Oral, once a day as needed for Allergy symptoms New Routed to [address] [id number] fluticasone nasal (Flonase 50 mcg/inh nasal spray) 1 [place](s), Nostrils(Both), two times a day in each nostril New Routed to [address] [id number] nicotine (nicotine 21 mg-14 mg-7 mg transdermal film, extended release) See Instructions, as needed for Smoking Cessation Use nicotine 21 mg patch daily for 14 days, 14 mg patch daily for 14 days, then7 mg patch daily. (remove patch every evening prior to bedtime). New Routed to [facility] Stop Taking the Following Medications: Medication list as of 03-25-14 15:39 Attention: If you have any medications at [...] emergency. Electronically Signed By: ANDREW VERA DNP, CIVIL DEFENSE DIRECTOR Signed On:25-MAR-2014 15:38:57 Your Allergies & Intolerances Substance Reaction Symptoms [...] appointment detail needed. Your Goals/Additional instructions: Source: [facility] POWERCHART Document Id: [id number] IN COMPANION Miscellaneous - Andrew Vera D.N.P., C.N.P. - 03/25/2014 3:39 PM LIVE IN COMPANION Ambulatory Discharge Medication List [address] [id number] Visit Information Name: CARTER MENSAH [facility] Number: [id number] Visit Date: 03/25/2014 15:39:04 Attending Provider: ANDREW VERA DNP, FNP Primary [...] every 6 hours as needed for Pain clindamycin-benzoyl peroxide topical (clindamycin-benzoyl peroxide 1%-5% topical gel) 1 sonya, Topical, two times a day as needed for acne New Routed to [facility] [address] [id number] diphenhydrAMINE (Benadryl) 50 mg, Oral, once a day fexofenadine (Lashay 180 mg oral tablet) 1 Tablet(s), Oral, once a day as needed for Allergy symptoms New Routed to [facility] [address] [id number] fluticasone nasal (Flonase 50 mcg/inh nasal spray) 1 [place]osen(s), Nostrils(Both), two times a day in each nostril New Routed to [address] [address] nicotine (nicotine 21 mg-14 mg-7 mg transdermal film, extended release) See Instructions, as needed for Smoking Cessation Use nicotine 21 mg patch daily for 14 days, 14 mg patch daily for 14 days, then7 mg patch daily. (remove patch every evening prior to bedtime). New Routed to [facility] Stop Taking the Following Medications: Medication list as of 03-25-14 15:39 Attention: If you have any medications at [...] Signed By: ANDREW VERA DNP, FNP Signed On:25-MAR-2014 15:38:57 Additional Information: Source: [facility] POWERCHART Document Id: [id number] IN COMPANION Miscellaneous - William Mishra, L.P.N. - 03/25/2014 2:24 PM CST Health Assessment Health Assessment Entered On: 03/25/2014 14:24 LIVE IN COMPANION Performed On: 03/25/2014 14:24 LIVE IN COMPANION by WILLIAM MISHRA LPN Health Assessment Complete Health Assessment Complete or Modified : Annual Health Assessment Annual Health Assessment Completed : Yes WILLIAM MISHRA LPN - 03/25/2014 14:24 LIVE IN COMPANION Nutrition Nutrition Risk Factors by History Adult : None WILLIAM MISHRA LPN - 03/25/2014 14:24 LIVE IN COMPANION Functional Current Daily Living Assistance : None WILLIAM MISHRA LPN - 03/25/2014 14:24 LIVE IN COMPANION Dependent Habits Tobacco Use/Currently Using : No Tobacco Use/Last 12 months : No Tobacco Use/Advised to Quit : No Exposure to Tobacco Smoke : Patient smokes Smoking Status : Current every day smoker WILLIAM MISHRA LPN - 03/25/2014 14:24 LIVE IN COMPANION Tobacco Use Grid Type : Cigarettes Cigarette Use Packs/Day : 0.5 WILLIAM MISHRA LPN - 03/25/2014 14:24 LIVE IN COMPANION Alcohol Use : No WILLIAM MISHRA LPN - 03/25/2014 14:24 LIVE IN COMPANION Caffeine Use Grid Caffeine Use : Current Type : Soft drinks Frequency : Occasionally WILLIAM MISHRA LPN - 03/25/2014 14:24 LIVE IN COMPANION Recreational Drug Use Grid Drug Use : None WILLIAM MISHRA LPN - 03/25/2014 14:24 LIVE IN COMPANION Psychosocial Domestic Abuse Concerns : None Lutheran Preference : No qualifying data available. WILLIAM MISHRA LPN - 03/25/2014 14:24 LIVE IN COMPANION Advance Directive Advanced Directives : No Advance Directive Additional Information : No WILLIAM MISHRA LPN - 03/25/2014 14:24 LIVE IN COMPANION Educ Needs Learning Style Preference Adult Grid Patient : None Family : None WILLIAM MISHRA LPN - 03/25/2014 14:24 LIVE IN COMPANION Source: [facility] [employer] Document Id: [id number] LIVE IN COMPANION!37 IN COMPANION Miscellaneous - iWlliam Mishra L.P.N. - 03/25/2014 2:07 PM CST Adult Sales Project Coordinator Intake/History Adult Sales Project Coordinator Intake/History Entered On: 03/25/2014 14:13 LIVE IN COMPANION Performed On: 03/25/2014 14:07 LIVE IN COMPANION by WILLIAM MISHRA LPN Intake Chief Complaint : Migraine medicine refilled, face cream wants to quit smoking Temperature Core : 36.3 DegC(Converted to: 97.3 DegF) (LOW) Peripheral Pulse Rate : 76 /min Respiratory Rate : 16 /min Heart Rhythm : Regular Systolic Blood Pressure : 110 mmHg Diastolic Blood Pressure : 84 mmHg NIBP Mean : 93 mmHg BP Location : Left upper extremity Blood Pressure Cuff Size : Large Height : 157 cm(Converted to: 5 ft 2 inch(es), 62 inch(es)) Actual Weight : 82.3 kg(Converted to: 181 lb 7 oz) Weight Source : Standing scale Dosing Weight Clinic : 82.3 kg Clinic BSA : 1.89 Body Mass Index : 33.39 kg/m2 WILLIAM MISHRA LPN - 03/25/2014 14:07 LIVE IN COMPANION General Info Information Given By : Patient Languages : Kittitian Is Patient Female and 13-50 no hysterectomy : Yes Status : Patient denies Are you ? : No WILLIAM MISHRA Parvez GONZALEZN - 03/25/2014 14:07 LIVE IN COMPANION Subjective Pain Symptoms : No VALDESROBYN Hannon [employer] ARCHITECT - 03/25/2014 14:07 LIVE IN COMPANION Dependent Habits Tobacco Use/Currently Using : Yes Tobacco Use/Advised to Quit : Yes Exposure to Tobacco Smoke : Patient smokes Smoking Status : Current every day smoker DELIA WILLIAM Hannon [facility] - 03/25/2014 14:07 LIVE IN COMPANION Tobacco Use Grid Type : Cigarettes Cigarette Use Packs/Day : 0.5 MISHRAWILLIAM [facility] - 03/25/2014 14:07 LIVE IN COMPANION Alcohol Use : No DELIAWILLIAM [facility] - 03/25/2014 14:07 LIVE IN COMPANION Caffeine Use Grid Caffeine Use : Current Type : Soft drinks Frequency : Occasionally MISHRAWILLIAM [facility] - 03/25/2014 14:07 LIVE IN COMPANION Recreational Drug Use Grid Drug Use : None DELIA WILLIAM Hannon [facility] - 03/25/2014 14:07 LIVE IN COMPANION ID Screen Drug Resistant Organism : No Travel Within Last 21 Days : No VALDESROBYN Hannon [facility] - 03/25/2014 14:07 LIVE IN COMPANION Source: [facility] POWERCHART Document Id: [id number] LIVE IN COMPANION!47 IN COMPANION documented in this encounter Plan of Treatment Not on filedocumented as of this encounter Procedures Procedure Name Priority Date/Time Associated Diagnosis Comme nts TEST, U Routine 03/25/2014 6:54 PM Resu lts for this LIVE IN COMPANION procedure are i n the results section. documented in this encounter Results Test, Qualitative, Urine (03/25/2014 6:54 PM LIVE IN COMPANION) [facility] Method Time Signature HXBeta-hCG Negative POWERCHART Qualitative Urine Specimen (Source) Anatomical Collection Method Collection Time Re ceived Time Location / / Volume Laterality Urine 03/25/2014 6:54 PM LIVE IN COMPANION Andrew Vera APRN, C.N.P., D.N.P. LAB URINE KRISTINA THOMPSON Performing Organization Address City/State/ZIP Code Phon e Number POWERCHART documented in this encounter Visit Diagnoses Not on filedocumented in this encounter Additional Health Concerns Assessment Noted Time PHQ-9 Depression Total Score: 3 06/13/2013 6:47 AM LIVE IN COMPANION documented as of this encounter
--- OUTSIDE RECORDS SUMMARY | 2022-03-16 15:07 | XMS_ITS | Encounter Summary ---
:1980 Author Organization [facility] Address [address] [place] [address] Care Team Providers Name Role Phone Unavailable Primary Care Provider Unavailable Encounter Details Date Type Department Care Team Description 11/27/2013 Hospital Encounter HX [facility] Nadia Barron M.D. [address] [place] [phone] (Wo rk) Social History Tobacco Use [...] documented as of this encounter Discharge Summaries Aishwarya Gr R.N. - 11/27/2013 2:00 PM CDT ED Discharge Instructions [address] [address] Name: CARTER LEI Date of : 1980 12:00 AM Visit Date: 11/27/2013 12:33 PM [facility] Number: [id number] Address: [address] [place] [phone] Primary Care Provider: ANDREW VERA DNP, PAINT BOOTH OPERATOR IMPORTANT: [facility] in [place] would like to thank you for allowing us to assist you with your healthcare needs. The following includes patient education materials and informationregarding your injury/illness. Diagnosis: Bleeding Anal Follow-Up Instructions: With: Address: When: ANDREW VERA [address] [place] [id number] Business (1) Within As Needed Comments: Your Upcoming Appointments: Date Time Location Reason Provider No Appointments found Patient Education Materials: [id number] HEMORRHOIDS,External A hemorrhoid is a local swelling of the veins around the rectum. These most often occur from repeated forceful straining during bowel movements or heavy lifting. It may also occur in the last few months of . A hemorrhoid feels like a soft lump. It may itch from time to time. When it is inflamed it becomes hard and very painful. HOME CARE: 1. SITZ BATHS: Sit in a tub filled with about 6 inches of hot water. Allow the water to run in orderto keep it hot for a total of 10-15 minutes. Repeat this three times a day until pain is relieved. 2. Keep your stools soft to avoid the need to strain when having a bowel movement. Unless another medicine was prescribed, try the following: IF YOU ARE CONSTIPATED: You may use yyor-fxb-rwebmbw laxatives such as MILK OF MAGNESIA (mild acting) or, DULCOLAX (if stronger action is needed). IF YOU ARE NOT CONSTIPATED but stools are hard, try taking Colace (docusate sodium) which is a stoolsoftener. This will soften stools without producing diarrhea. Drinking extra fluids may also help. 3. The use of creams applied to the hemorrhoid itself, such as ANUSOL or PREPARATION H, will be helpful to reduce pain and itching, and speed healing. PREVENTION: Avoid straining on the toilet by keeping stools soft. Increasing FIBER in your diet (fruits, cereals, vegetables and grains) will promote healthy bowel movement. If this is not working, you may use METAMUCIL and similar products. These are hbxr-ktk-twdikgy fiber supplements. You must drink extra fluids when taking these to avoid constipation. FOLLOW UP with your doctor if you do not begin to respond to the above treatment within the next fewdays. GET PROMPT MEDICAL ATTENTION if any of the following occur: ?? Large amount of rectal bleeding (more than 1 cup of blood in 24 hours) ?? Increasing rectal pain or rectal pain that continues for more than three days of treatment ?? Weakness, dizziness or fainting Vomiting blood (red or black color) ?? [phone] [facility], [address] [place] [address]. All rights reserved. This information is not intended as a substitute for professional medical care. Always follow your healthcare professional's instructions. ED Tests and Procedures: Order Status Discharge Prescriptions & Home Medications: Medication/Strength Dose Route Frequency Indications/Special Instructions/Comments/Notes phenylephrine topical (Prep-Hem 0.25%-3% rectal ointment) See Instructions 1Application to anal rectal area twice a day for 7 days acetaminophen (Tylenol) 500 mg Oral every 6 hours as needed for Pain diphenhydrAMINE (Benadryl) 50 mg Oral once a day Comment: Attention: If you have any medications at home not on this list, DO NOT take them until you contact your provider for clarification. Give a copy of your medication list to your primary care provider. Update your medication list any time medications or doses are changed and carry your medication list at all times in case of emergency. Medication Reconciliation: Reconciliation is a process of identifying the most accurate list of all medications a patient is taking - including name, dosage, frequency, and route - and using this list to provide to the patient information about how to take those medications. CARTER LEI or holley has reviewed the home medications you have listed with us. Review the following instructions: You have NOT received any prescriptions and you have told us you are not currently taking any home medications You have NOT received any prescriptions. You have been provided a discharge medications list and you may CONTINUE taking your medications as previously prescribed by your regular providers. You have received the listed prescriptions and BEGIN all listed prescriptions as directed. Since you have listed no home medications, please check with your family doctor if you are taking any other medications. You have received the listed prescriptions and BEGIN all listed prescriptions as directed. Youhave been provided a discharge medications list and you may CONTINUE all home medications as previously prescribed by your regular providers. You have received the listed prescriptions and BEGIN all listed prescriptions as directed. Youhave been provided a discharge medications list. The following CHANGES have been made to your medication list; Otherwise, CONTINUE all home medications as previously prescribed by your regular provider. IMPORTANT: We examined and treated you today [...] ride home with a responsible alliance party. IRODRICK GINA MARIE , or responsible alliance party have received this information and my questions have been answered. I have discussed any challenges I see with this plan with the nurse or physician. Patient Signature or Responsible Republican/Relationship Date Time Provider Signature Date Time Medication Reconciliation: Reconciliation is a process of identifying the most accurate list of all medications a patient is taking - including name, dosage, frequency, and route - and using this list to provide to the patient information about how to take those medications. CARTER LEI or holley has reviewed the home medications you have listed with us. Review the following instructions: You have NOT received any prescriptions and you have told us you are not currently taking any home medications You have NOT received any prescriptions. You have been provided a discharge medications list and you may CONTINUE taking your medications as previously prescribed by your regular providers. You have received the listed prescriptions and BEGIN all listed prescriptions as directed. Since you have listed no home medications, please check with your family doctor if you are taking any other medications. You have received the listed prescriptions and BEGIN all listed prescriptions as directed. Youhave been provided a discharge medications list and you may CONTINUE all home medications as previously prescribed by your regular providers. You have received the listed prescriptions and BEGIN all listed prescriptions as directed. Youhave been provided a discharge medications list. The following CHANGES have been made to your medication list; Otherwise, CONTINUE all home medications as previously prescribed by your regular provider. IMPORTANT: We examined and treated you today [...] Republican/Relationship Date Time Provider Signature Date Time This document has images extracted. Please consider using [employer] for all your patient education needs. Source: [facility] LiiiikeCHART Document Id: [id number] Aishwarya Gr R.N. - 11/27/2013 2:00 PM CDT ED Depart Summary [facility] Emergency Department Clinical Discharge Summary PERSON INFORMATION Name CARTER LEI Age 33 Years 1980 12:00 AM Sex Female Language Swiss PCP ANDREW VERA DNP, PAINT BOOTH OPERATOR Marital Status Single Visit Id Visit Reason Heavy bleeding w/ pregnacny Specialty Enc Type Emergency Med Service Emergency Medicine Referred by Track Group [facility] ED Discharge 11/27/2013 2:00 PM Tracking Id [id number] Checkout 11/27/2013 2:00 PM Checkin 11/27/2013 12:33 PM Acuity 3 -Urgent Dispo Type * Discharged to Home or Self Care Arrival 11/27/2013 12:33 PM Reg Status Complete LOS 000 01:27 Address: [address] [place] [address] [place] [phone] Comment: PROVIDER INFORMATION Provider Role Provider Contact Time RYAN VALLEJO MD ED Provider 11/27/13 13:17 DIAGNOSIS Bleeding Anal Comment: PATIENT EDUCATION INFORMATION Instructions: HEMORRHOIDS Follow up: With: Address: When: ANDREW VERA [address] [place] [address] Business (1) Within As Needed Comments: Source: [employer] Document Id: [id number] documented in this encounter Medications at Time of Discharge Medication Sig Dispensed Refills Start Date End Date ACETAMINOPHEN ORAL Take 500 mg by mouth every 0 0 06/04/2013 06/29/2019 6 (six) hours as needed. documented as of this encounter Nursing Notes Tegan Lei R.N. - 11/27/2013 1:27 PM CDT stool Had soft mushiy brown stool with few red streaks noted. C/O increased rectal pain after stool. FHR 140 150 activity noted. Source: [employer] Document Id: [id number] documented in this encounter ED Notes Aishwarya Gr R.N. - 11/27/2013 1:41 PM CDT ED Pain Assessment ED Pain Assessment Entered On: 11/27/2013 13:41 CDT Performed On: 11/27/2013 13:41 CDT by AISHWARYA GR RN Pain Assessment Pain Symptoms : Yes AISHWARYA GR RN - 11/27/2013 13:41 CDT Source: [facility] [employer] Document Id: [id number] CDT!3 Aishwarya Gr R.N. - 11/27/2013 1:41 PM CDT ED Disposition Summary ED Disposition Summary Entered On: 11/27/2013 13:41 CDT Performed On: 11/27/2013 13:41 CDT by AISHWARYA GR RN ED Disposition Summary Accompanied By : Alone Mode of Discharge : Ambulatory Transportation : Private vehicle Printed Discharge Instructions Given to Patient : Yes Patient Status at Discharge from ED : Unchanged AISHWARYA GR RN - 11/27/2013 13:41 CDT Source: [facility] [employer] Document Id: [id number] CDT!7 Tegan Lei R.N. - 11/27/2013 1:22 PM CDT ED Primary Assessment Document Has Been Updated ED Primary Assessment Entered On: 11/27/2013 13:25 CDT Performed On: 11/27/2013 13:22 CDT by TEGAN LEI RN Reason For Visit (As Of: 11/27/2013 14:21:08 CDT) Problems(Active) Acne vulgaris (ICD-9-CM :706.1 ) Name of Problem: Acne vulgaris ; Recorder: ALLEN BEDOYA RN; Confirmation: Confirmed ; Classification: Nursing ; Code: 706.1 ; Contributor System: [employer] ; Last Updated: 12/17/2010 11:55 CDT ; Life Cycle Date: 12/17/2010 ; Life Cycle Status: Active ; Responsible Provider: ALLEN BEDOYA RN; Vocabulary: ICD-9-CM ; Comments: 12/17/2010 11:55 - ALLEN BEDOYA RN Date of onset unknown Allergic rhinitis, unspecified (ICD-9-CM :477.9 ) Name of Problem: Allergic rhinitis, unspecified ; Onset Date: 08/22/2011 ; Recorder: JANAY WAYNE RN, MEDICAL RECORD LIBRARIAN; Confirmation: Confirmed ; Classification: Medical ; Code: 477.9 ; Last Updated: 08/22/2011 13:54 CDT ; Life Cycle Status: Active ; Responsible P rovider: JANAY WAYNE RN, MEDICAL RECORD LIBRARIAN; Vocabulary: ICD-9-CM Anxiety State, Unspecified (ICD-9-CM :300.00 [...] ; Onset Date: 04/17/1989 ; Recorder: SANDRINE FULLRE RN; Confirmation: Confirmed ; Classification: Medical ; Code: 346.90 ; Contributor System: [employer] ; Last Updated: 04/12/2011 17:14 CEMENT [facility]ON ; Life Cycle Date: 06/10/2010 ; Life Cycle Status: Active ; Responsible Provider: SANDRINE FULLER RN; Vocabulary: ICD-9-CM ; Comments: 06/10/2010 16:12 - SANDRINE FULLER RN no known date of onset Thoracic or Lumbosacral Neuritis or Radiculitis, Unspecified (ICD-9-CM :724.4 ) Name of Problem: Thoracic or Lumbosacral Neuritis or Radiculitis, Unspecified ; Onset Date: 11/29/2007 ; Confirmation: Confirmed ; Classification: UPDATE NEEDED ; Code: 724.4 ; Contributor System: [employer]PR_UPLOAD ; Last Updated: 07/13/2013 18:13 CDT ; [...] Provider: JANAY WAYNE RN, CNP; Vocabulary: ICD-9-CM Diagnoses(Active) Bleeding Anal Date: 11/27/2013 ; Diagnosis Type: Discharge ; Confirmation: Confirmed ; Clinical Dx: Bleeding Anal ; Classification: Medical ; Clinical Service: Emergency medicine ; Code: ICD-9-CM ; Probability: 0 ; Diagnosis Code: 569.3 Triage Chief Complaint Description : see triage note Mode of Arrival ED : Private vehicle Track : Medical Languages : Swiss Is Patient Female and 13-50 no hysterectomy : Yes Status : Confirmed positive Are you ? : No Treatments Prior to Arrival : None RODRICKTEGAN ALFONZO - 11/27/2013 13:22 CDT Pain Assessment Pain Symptoms : Yes RODRICKTEGAN ALFONZO - 11/27/2013 13:22 CDT Respiratory Airway : Patent Respirations : Unlabored Respiratory Pattern : Regular RODRICK TEGAN Per MEJÍA - 11/27/2013 13:22 CDT Cardiovascular Heart Rhythm : Regular Skin Color : Normal for ethnicity Skin Description : Dry Skin Temperature : Warm TEGAN LEI ALFONZO - 11/27/2013 13:22 CDT Neurological Last Well Time Known : Not applicable Level of Consciousness : Alert Orientation : Oriented x 3 Characteristics of Speech : Clear RODRICK TEGAN Albarado ALFONZO - 11/27/2013 13:22 CDT ED Psychosocial Affect/Behavior : Calm, Cooperative, Appropriate Domestic Abuse Concerns : None RODRICK TEGAN Per MEJÍA - 11/27/2013 13:22 CDT Gastrointestinal Nutrition ED : Adequate RODRICK TEGAN Per MEJÍA - 11/27/2013 13:22 CDT /OB Assessment Patient Stated Symptoms : None Urine Description : Clear Urine Color : Yellow Sexually Active : Yes Contraception Used : No : 1 Ectopic Pregnancies History : 1 Spontaneous Abortions Hx : 2 Heart Rate: : 146 /min Patient Stated ALEXANDER : 02/18/2014 CEMENT MASON RODRICK TEGAN Per MEJÍA - 11/27/2013 13:22 CDT Musculoskeletal Fall Prevention Education Provided : DERRICK LEI TEGAN Per MEJÍA - 11/27/2013 13:22 CDT Social Habits Tobacco Use/Currently Using : Yes Tobacco Use/Advised to Quit : Yes Exposure to Tobacco Smoke : Patient smokes Smoking Status : Current every day smoker RODRICK TEGAN Per MEJÍA - 11/27/2013 14:20 CDT Tobacco Use Grid Type : Cigarettes Cigarette Use Packs/Day : 0.5 RODRICK TEGAN Per MEJÍA - 11/27/2013 14:20 CDT Alcohol Use Grid Alcohol Use : Other: occasional No RODRICK TEGAN Per MEJÍA - 11/27/2013 14:20 CDT TEGAN LEI RN - 11/27/2013 14:20 CDT Recreational Drug Use Grid Drug Use : None RODRICK TEGAN Per MEJÍA - 11/27/2013 14:20 CDT Source: [employer] Document Id: [id number] CDT!18 Ryan Vallejo M.D. - 11/27/2013 12:51 PM CDT Vaginal bleeding - > 20 wks Patient: CARTER LEI Age: 33 years Sex: Female : 1980 Author: RYAN VALLEJO MD Attachments: None Associated Diagnosis: Vaginal bleeding - > 20 wks Basic Information Time seen: Immediately upon arrival. History source: Patient. Arrival mode: Private vehicle. Additional information: Chief Complaint from Nursing Triage Note : Chief Complaint Description 11/27/2013 12:39 CDT Chief Complaint Description patient presents with vaginal bleeding and she states she is 28 weeks . History of Present Illness The patient presents with Concern of vaginal bleeding.. The course/duration of symptoms is constant. Status : 6, Para: 1 28 weeks. movement: present. Character of pain: location:lower quadrant, degree of pain: moderate cramps. Bleeding: One episode, passing went and had a bowelmovement at noon and noticed bright red blood in the toilet de paz.. The exacerbating factor is defecation. Risk factors consist of not diabetes mellitus, not hypertension, not preeclampsia, not limited care and not multiple medications. Therapy today: none. Prior episodes: none. Associated symptoms: denies abdominal pain, denies back pain, denies dysuria, denies edema, denies nausea, denies vomiting and denies seizure. States that she had previous miscarriages and got concerned . She gets herprenatal care by Alden Banegas in [place] and recently saw her with normal progression of . She has single intrauterine .ALEXANDER - Feb.18.. Feeling normal movements.. Review of Systems Additional review of systems information: All other systems reviewed and otherwise negative. Health Status Allergies: Allergic Reactions (Selected) Severity Not Documented Cipro- No reactions were documented. Nonallergic Reactions (Selected) Moderate Augmentin XR- Gi distress. Severity Not Documented Quinolone antibiotics- No reactions were documented. Silicone- No reactions were documented.. Past Medical/ Family/ Social History Medical history: Active Migraine headache (346.90): Onset on 04/17/1989 at 8 years. Comments: 06/10/2010 CEMENT MASON 16:12 CEMENT MASON - SANDRINE FULLER RN no known date of onset Resolved Other Symptoms Involving Urinary System (788.99): Onset on 03/04/2008 at 27 years. Resolved. Comments: - Bladder pain Sinusitis (473.9): Onset on 05/19/2000 at 19 years. Resolved.. Surgical history: Dilation and curettage ([id number]) on 03/26/2013 at 32 Years. Endometrial sampling (biopsy) with or without endocervical sampling (biopsy), without cervical dilation, any method (separate procedure) ([id number]) on 12/09/2009 at 29 Years. C FULL ROUT OBSTE CARE,VAGINAL DELIV - 05/20/06 - Baby Girl on 05/20/2006 at 25 Years. RW ENT (ABSTRACTED) - 09/13/01 - Sinus surgery x 2 on 09/13/2001 at 21 Years. Nasal sinus ([id number]) on 09/20/2000 at 20 Years. Comments: 06/10/2010 16:11 - SANDRINE FULLER RN sinus surgeries Tonsillectomy with adenoidectomy ([id number]) on 04/17/1994 at 13 Years. ENT (ABSTRACTED) - age 8 - tubes placed as child on . HC REMOVE TONSILS/ADENOIDS,<12 Y/O - age 14 - Tonsillectomy and adenoidectomy < age 14 on .. Family history: Liver Mother Comments: 08/16/2010 09:57 - JENNIFER LIN LPN Liver failure Diabetes mellitus Mother Asthma Sister Hypertension Father MEDRANO - Headache Father . Social history: Alcohol use: Denies, Tobacco use: Denies, Drug use: Denies. Physical Examination General: Alert and no acute distress. Skin: Warm and moist. Head: Normocephalic and atraumatic. Neck: Supple, trachea midline and no tenderness. Eye: Pupils are equal, round and reactive to light, extraocular movements are intact, normal conjunctiva and vision unchanged. Ears, nose, mouth and throat: Tympanic membranes clear and oral mucosa moist. Cardiovascular: Regular rate and rhythm, No murmur and Normal peripheral perfusion. Respiratory: Lungs are clear to auscultation and respirations are non-labored. Chest wall: No tenderness. Back: Nontender, Normal range of motion and Normal alignment. Musculoskeletal: Normal ROM. normal strength. no tenderness. Gastrointestinal: Soft, Nontender, Non distended and Normal bowel sounds. Genitourinary: Normal external genitalia, no lesions, No bleeding noticed from the vaginal area , speculum exam was not done due to concern of third trimester bleeding.External and internal hemorrhoidsare noticed on the anoscopic exam., patient had another bowel movement with streaks of blood in commode. and External genitalia: Normal. Neurological: Alert and oriented to person, place, time, and situation, No focal neurological deficit observed, CN II-XII intact, normal sensory observed and normal motor observed. Lymphatics: No lymphadenopathy. Additional physical exam information: the NST is done, monitor shows good variability , FHR in 145 average, no decelerations , no contractions.. Medical Decision Making Differential Diagnosis:, false labor, complicated , vaginal bleeding, threatened . Documents reviewed:Emergency department nurses' notes. Impression and Plan Diagnosis Vaginal bleeding - > 20 wks (Discharge, Emergency medicine, Medical) Rectal bleeding with hemorrhoids. Plan Condition: Stable. Disposition: Discharged: to home. Patient was given the following educational materials: HEMORRHOIDS. Follow up with: ANDREW VERA Within As Needed, ANDREW VERA Within As Needed. Counseled: Patient, Regarding diagnosis, Regarding diagnostic results, Regarding treatment plan, Regarding prescription, Patient indicated understanding of instructions. Notes: There is no signs of vaginal bleeding , no distress or concern of , findings are discussed. with the patient., Treated with preoperation H for hemorrhoids and stool softeners, Follow upin ED or clinic if any new symptoms.. Electronically Signed By: RYAN VALLEJO MD On: 11/27/2013 02:04 PM Modified by and Electronically Signed by: RYAN VALLEJO MD On: 11/27/2013 02:04 PM Source: [facility] POWERCHART Document Id: [id number] Aishwarya Gr R.N. - 11/27/2013 12:39 PM CDT ED Triage Assessment Document Has Been Updated ED Triage Assessment Entered On: 11/27/2013 12:40 CDT Performed On: 11/27/2013 12:39 CDT by AISHWARYA GR RN Reason For Visit (As Of: 11/27/2013 12:40:50 CDT) Problems(Active) Acne vulgaris (ICD-9-CM :706.1 ) [...] ; Responsible P rovider: JANAY WAYNE RN, LANIE; Vocabulary: ICD-9-CM Anxiety State, Unspecified (ICD-9-CM [...] System: [employer] ; Last Updated: 04/12/2011 17:14 CEMENT [facility]ON ; Life Cycle Date: 06/10/2010 ; Life Cycle Status: Active ; Responsible Provider: SANDRINE FULLER RN; Vocabulary: ICD-9-CM ; Comments: 06/10/2010 16:12 - SANDRINE FULLER RN no known date of onset Thoracic or Lumbosacral Neuritis or Radiculitis, Unspecified (ICD-9-CM :724.4 ) Name of Problem: Thoracic or Lumbosacral Neuritis or Radiculitis, Unspecified ; Onset Date: 11/29/2007 ; Confirmation: Confirmed ; Classification: UPDATE NEEDED ; Code: 724.4 ; Contributor System: [facility] ; Last Updated: 07/13/2013 18:13 CDT ; Life Cycle Status: Active ; Vocabulary: ICD-9-CM ; Comments: - Lumbarradiculopathy Tobacco Use Disorder (ICD-9-CM :305.1 ) Name of Problem: Tobacco Use Disorder ; Onset Date: 08/22/2011 ; Recorder: JANAY WAYNE RN, MEDICAL RECORD LIBRARIAN; Confirmation: Confirmed ; Classification: Medical ; Code: 305.1 ; Last Updated: 08/22/2011 13:54 CDT ; Life Cycle Status: Active ; Responsible Provider: JANAY WAYNE RN, MEDICAL RECORD LIBRARIAN; Vocabulary: ICD-9-CM Triage Chief Complaint Description : patient presents with vaginal bleeding and she states she is 28 weeks Information Given By : Patient Accompanied By : Other: step daughter Mode of Arrival ED : Private vehicle Track : Medical Languages : Swiss Is Patient Female and 13-50 no hysterectomy : Yes Status : Confirmed positive Are you ? : No Treatments Prior to Arrival : None AISHWARYA GR RN - 11/27/2013 12:39 CDT Pain Assessment Pain Symptoms : Yes AISHWARYA GR RN - 11/27/2013 12:39 CDT Pain Pain Assessment Grid Pain 1 Location : Abdomen AISHWARYA GR RN - 11/27/2013 12:39 CDT MORALES DCP GENERIC CODE Tracking Acuity : 3 -Urgent Tracking Group : [facility] ED AISHWARYA GR RN - 11/27/2013 12:39 CDT Allergy (As Of: 11/27/2013 12:40:50 CDT) Allergies (Active) Augmentin XR Estimated Onset Date: Unspecified ; Reactions: GI distress ; Created By: MYRNA EDMONDS MD; Reaction Status: Active ; Category: Drug ; Substance: Augmentin XR ; Type: Intolerance ; Severity: Moderate ; Updated By: MYRNA EDMONDS MD; Source: Patient ; Reviewed Date: 09/05/2013 13:36 CDT Cipro Estimated Onset Date: Unspecified ; Created By: YASMANY CAVANAUGH RN; Reaction Status: Active ; Category: Drug ; Substance: Cipro ; Type: Allergy ; Updated By: YASMANY CAVANAUGH RN; Reviewed Date: 09/05/2013 13:36 CDT quinolone antibiotics Comments: Comment 1: QUINOLONES - Cipro; vomiting ; Created By: Contributor_system, [facility]; Reaction Status: Active ; Category: Drug ; Substance: quinolone antibiotics ;Type: Unknown ; Updated By: Contributor_system, [facility]; Reviewed Date: 09/05/2013 13:36 CDT Silicone Estimated Onset Date: Unspecified ; Created By: JENNIFER FRANCIS RN; Reaction Status: Active ; Category: Drug ; Substance: Silicone ; Type: Sensitivity ; Updated By: JENNIFER FRANCIS RN; Reviewed Date: 09/05/2013 13:36 CDT ID Screen Drug Resistant Organism : No AISHWARYA GR RN - 11/27/2013 12:39 CDT Immunizations Immunizations Current : Yes AISHWARYA GR RN - 11/27/2013 12:39 CDT Source: [employer] Document Id: [id number] CDT!26 documented in this encounter Miscellaneous Notes Miscellaneous - Aishwarya Gr RLashawnN. - 11/27/2013 1:41 PM CDT Valuables/Belongings Valuables/Belongings Entered On: 11/27/2013 13:41 CDT Performed On: 11/27/2013 13:41 CDT by AISHWARYA GR RN Valuables/Belongings Home Medication Disposition : None brought in with patient AISHWARYA GR RN - 11/27/2013 13:41 CDT Source: [employer] Document Id: [id number] CDT!3 Miscellaneous - Aishwarya Gr R.N. - 11/27/2013 12:33 PM CDT Facility Charge Ticket 2.0 11.0 DX Facility Charge Ticket 2.0 11.0 DX Entered On: 11/27/2013 13:40 CDT Performed On: 11/27/2013 12:33 CDT by AISHWARYA GR RN Facility Charge Ticket 2.0 11.0 DX ED Other Charges : Standard ED Encounter TVL Level for Facility Charge Ticket : Level 3 Arrival Mode Calc : 1 Mode of Arrival ED : Private vehicle [facility] Mode of Arrival Interpreted : Standard [facility] Process Management : None [facility] Order Management : None 30 Minutes Critical Care : No Nursing Notes RTF : Triage Forms ED Triage Assessment,11/27/13 12:39,AISHWARYA GR RN Nursing Notes ED Primary Assessment,11/27/13 13:22,TEGAN LEI RN [facility] Nursing Assessment : Triage and 1-2 nursing assessments [facility] Disposition : Discharge [facility] Total Points with Diagnosis Control : 5 [facility] Visit Level : 99117 Level 3 Treatments Prior to Arrival : None AISHWARYA GR RN - 11/27/2013 13:40 CDT Source: [facility] [employer] Document Id: [id number] CDT!16 documented in this encounter Plan of Treatment Not on filedocumented as of this encounter Visit Diagnoses Not on filedocumented in this encounter Additional Health Concerns Assessment Noted Time PHQ-9 Depression Total Score: 3 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
--- OUTSIDE RECORDS SUMMARY | 2022-03-16 15:07 | XMS_ITS | Encounter Summary ---
:1980 Author Organization [facility] Address [address] [place] [address] Care Team Providers Name Role Phone Unavailable Primary Care Provider Unavailable Encounter Details Date Type Department Care Team Description 07/19/2013 Hospital Encounter HX [facility] Zina Vera, LO, C.N.P., D.N.P. [address] [phone] (Wo rk) Social History Tobacco Use [...] - - Height 157 cm (5' 1.81) 07/19/2013 12:34 PM CDT Body Mass Index - - documented in this encounter Medications at Time of Discharge Medication Sig Dispensed Refills Start Date End Date ACETAMINOPHEN ORAL Take 500 mg by mouth every 0 0 06/04/2013 06/29/2019 6 (six) hours as needed. documented as of this encounter Miscellaneous Notes Miscellaneous - Zina Vera, D.N.P., C.N.P. - 07/19/2013 3:23 PM CDT Normal Results Letter 19 July 2013 DULCE MENSAH [address] [place] [address] [id number] Dear DULCE MENSAH, If you have questions or concerns, please do not hesitate to call our office. Result Name Current Result Previous Result Normal Range Beta hCG Qnt (IntU/L) (H) 90,561.0 07/19/2013 20,820.0 06/26/2013 0.0 - 5.0 Sincerely, ZINA VERA [address] [place] [address] Electronic Signature Electronically Signed By: ZINA VERA DNP, FNP On: 19 July 2013 This document has images extracted. Source: [facility] POWERCHART Document Id: [id number] Electronically signed by Lesley [facility] Microbiology Lab Analyst [id number] at 09/13/2016 8:08 AM CDT documented in this encounter Plan of Treatment Not on filedocumented as of this encounter Procedures Procedure Name Priority Date/Time Associated Diagnosis Comme nts BHCG (BETA-HUMAN Routine 07/19/2013 12:38 PM Resu lts for this CHORIONIC CDT procedure are i n GONADOTROPIN), the results DIEGO, S section. documented in this encounter Results (ABNORMAL) bHCG (Beta-Human Chorionic Gonadotropin), Quantitative (07/19/2013 12:38 PM CDT) Analysis Performed At [facility] Time Signature Beta-HCG, 21482.0 0.0 - 5.0 POWERCHART Quantitative, (H) INTUL S Comment: 0 ? 5 IntU/L Negative 5 ? 25 IntU/L Indeterminate > 25 IntU/L Positive Specimen (Source) Anatomical Collection Method Collection Time Re ceived Time Location / / Volume Laterality Blood 07/19/2013 12:38 PM CDT Zina Vera APRN, C.N.P., D.N.P. 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
--- OUTSIDE RECORDS SUMMARY | 2022-03-16 15:07 | XMS_ITS | Encounter Summary ---
:1980 Author Organization [facility] Address [address] [place] [address] Care Team Providers Name Role Phone Unavailable Primary Care Provider Unavailable Encounter Details Date Type Department Care Team Description 07/28/2014 Hospital Encounter HX [facility] ED Valeriy Drew , P.A.-C. [address] [place], [place] [phone] (Wo rk) Social History [...] or relatives? How often do you attend episcopal or More than 4 times per year 11/09/2020 moravian services? Do you belong to any clubs or No 11/09/2020 organizations such as episcopal groups, unions, fraternal or athletic groups, or [...] Sign Reading Time Taken Comments Blood Pressure 109/88 07/28/2014 9:20 PM CDT Pulse 77 07/28/2014 9:20 PM CDT Temperature - - Respiratory Rate 18 07/28/2014 9:20 PM CDT Oxygen Saturation - - Inhaled Oxygen Concentration - - Weight - - Height - - Body Mass Index - - documented in this encounter Discharge Summaries Omero Fernandez R.N. - 07/28/2014 11:03 PM CDT ED Discharge Instructions [address] [address] Name: CARTER LEI Date of : 1980 12:00 AM Visit Date: 07/28/2014 8:08 PM [facility] Number: [id number] Address: [address] [place] [phone] Primary Care Provider: ANDREW VERA DNP, SEAMLESS TUBE DRAWER IMPORTANT: [facility] in [place] would like to thank you for allowing us to assist you with your healthcare needs. The following includes patient education materials and informationregarding your injury/illness. Diagnosis: Migraine Headache (MEDRANO) NOS Follow-Up Instructions: With: Address: When: Follow up with primary care provider Within As Needed Comments: For recheck Your Upcoming Appointments: Date Time Location Provider No Appointments found Patient Education Materials: [id number] MIGRAINE HEADACHE Migraine headaches are related to changes in [...] or too little or too much sleep. HOME CARE FOR THIS HEADACHE: 1) If you were given pain medicine [...] diet to avoid nausea/vomiting until symptoms improve. PREVENTING FUTURE HEADACHES: 1) Pay attention to those factors that [...] to see if this reduces headache frequency. TREATING FUTURE ATTACKS: 1) At the first sign of a [...] (aura or initial pain) for best results. FOLLOW UP with your doctor if the headache is not better within the next 24 hours. If you have frequent headaches you should discuss a treatment plan with your primary care doctor. Ask if you can have medicine to take at home the next time you get a bad headache. Poorly controlled chronic headaches may require a referral to a neurologist (headache specialist). GET PROMPT MEDICAL ATTENTION if any of the following occur: ?? Your head pain gets worse, or does not improve within 24 hours ?? Repeated vomiting (cant keep liquids down) ?? Sinus or ear or throat pain (not already reported) ?? Fever of 100.4?? F (38?? C) or higher, or as directed by your healthcare provider ?? Stiff neck ?? Extreme drowsiness, confusion or fainting ?? Dizziness, vertigo (dizziness with spinning sensation) ?? Weakness of an arm or leg or one side of the face Difficulty with speech or vision ?? [id number] [place] [address]. All rights reserved. This information is not [...] Party/Relationship Date Time Provider Signature Date Time Medication [...] a responsible green party. I, CARTER LEI , or responsible green party have received this information and my questions have been answered. I have discussed any challenges I see with this plan with the nurse or physician. Patient Signature or Responsible Constitution Party/Relationship Date Time Provider Signature Date Time Source: [employer] Document Id: [id number] Omero Fernandez R.N. - 07/28/2014 11:03 PM CDT ED Depart Summary [facility] Emergency Department Clinical Discharge Summary PERSON INFORMATION Name CARTER LEI Age 34 Years 1980 12:00 AM Sex Female Language Ghanaian PCP ANDREW VERA DNP, SEAMLESS TUBE DRAWER Marital Status Single N [id number] [id number] Visit Reason MEDRANO - Headache; Migrane Specialty Enc Type Emergency Med Service Emergency Medicine Referred by Track Group [facility] ED Discharge 07/28/2014 9:54 PM Tracking Id [id number] Checkout 07/28/2014 9:54 PM Checkin 07/28/2014 8:08 PM Acuity 4 -Less Urgent Dispo Type * Discharged to Home or Self Care Arrival 07/28/2014 8:08 PM Reg Status Complete LOS 000 01:46 Address: [address] [place] [phone] Comment: PROVIDER INFORMATION Provider Role Provider Contact Time VALERIY DREW ED Provider 07/28/14 20:14 AISHWARYA GR RN ED Nurse 07/28/14 20:25 DIAGNOSIS Migraine Headache (MEDRANO) NOS Comment: PATIENT EDUCATION INFORMATION Instructions: HEADACHE, Migraine (Classical) Follow up: With: Address: When: Follow up with primary care provider Within As Needed Comments: For recheck Source: [facility] Document Id: [id number] documented in this encounter Medications at Time of Discharge Medication Sig Dispensed Refills Start Date End Date ACETAMINOPHEN ORAL Take 500 mg by 0 06/04/2013 mouth every 6 (six) hours as needed. ibuprofen Take 4 tablets by 0 04/22/2014 020 (for_ADVIL,MOTRIN) 200 mg mouth as needed. tablet documented as of this encounter ED Notes Omero Fernandez R.N. - 07/28/2014 11:02 PM CDT ED Pain Assessment ED Pain Assessment Entered On: 07/28/2014 23:02 CDT Performed On: 07/28/2014 23:02 CDT by OMERO FERNANDEZ RN Pain Assessment Pain Symptoms : No OMERO FERNANDEZ RN - 07/28/2014 23:02 CDT Source: [facility] Document Id: [id number] CDT!3 Omero Fernandez R.N. - 07/28/2014 11:02 PM CDT ED Disposition Summary ED Disposition Summary Entered On: 07/28/2014 23:02 CDT Performed On: 07/28/2014 23:02 CDT by OMERO FERNANDEZ RN ED Disposition Summary Accompanied By : Alone Mode of Discharge : Ambulatory Transportation : Private vehicle Printed Discharge Instructions Given to Patient : Yes Patient Status at Discharge from ED : Improved OMERO FERNANDEZ RN - 07/28/2014 23:02 CDT Source: [facility] Document Id: [id number] CDT!7 Omero Fernandez R.N. 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 ; Life Cycle Date: 06/10/2010 ; Life [...] NEEDED ; Code: 724.4 ; Contributor System: [facility]_HX_PR_UPLOAD ; Last Updated: 07/13/2013 18:13 [...] JANAY WAYNE RN, CNP; Vocabulary: ICD-9-CM Diagnoses(Active) MEDRANO - Headache Date: 07/28/2014 ; Diagnosis Type: Reason For Visit ; Confirmation: Complaint of ; Clinical Dx: MEDRANO - Headache ; Classification: Medical ; Clinical Service: Emergency medicine ; Code: PNED; Probability: 0 ; Diagnosis Code: [id number] Migraine Headache (MEDRANO) NOS Date: 07/28/2014 ; Diagnosis Type: Discharge ; Confirmation: Confirmed ; Clinical Dx: Migraine Headache (MEDRANO) NOS ; Classification: Medical ; Clinical Service: Emergency medicine ; Code: ICD-9-CM ; Probability: 0 ; Diagnosis Code: 346.90 Triage Mode of Arrival ED : Private vehicle Track : Medical Languages : Ghanaian Treatments Prior to Arrival : None Are you ? : No Is Patient Female and 13-50 no hysterectomy : Yes Status : Patient denies OMERO FERNANDEZ RN - 07/28/2014 23:00 CDT Pain Assessment Pain Symptoms : Yes OMERO FERNANDEZ RN - 07/28/2014 23:00 CDT ID Screen Drug Resistant Organism : No Travel Within Last 21 Days : No Contact with someone with Ebola : No OMERO FERNANDEZ RN - 07/28/2014 23:00 CDT Respiratory Airway : Patent Respirations : Unlabored Respiratory Pattern : Regular OMERO FERNANDEZ RN - 07/28/2014 23:00 CDT Cardiovascular Heart Rhythm : Regular Skin Color : Normal for ethnicity Skin Description : Dry Skin Temperature : Warm OMERO FERNANDEZ RN - 07/28/2014 23:00 CDT Neurological Last Well Time Known : Not applicable Level of Consciousness : Alert Orientation : Oriented x 3 Characteristics of Speech : Appropriate for age Neuro Patient Stated Symptoms : Headache Gait : Steady Swallowing Difficulty/Aspiration Risk : None Neuro Detailed Assessment : Yes OMERO FERNANDEZ RN - 07/28/2014 23:00 CDT Neuro Detailed DEAN : Yes Facial Symmetry : Normal Extremity Movement : Equal Extremity Sensation : Normal Speech Characteristics : Normal OMERO FERNANDEZ RN - 07/28/2014 23:00 CDT ED Psychosocial Affect/Behavior : Calm, Cooperative, Appropriate Domestic Abuse Concerns : None Behavioral Health Screen/Safety Assmt : No OMERO FERNANDEZ RN - 07/28/2014 23:00 CDT Gastrointestinal Nutrition ED : Adequate OMERO FERNANDEZ RN - 07/28/2014 23:00 CDT Musculoskeletal Fall Prevention Education Provided : Yes OMERO FERNANDEZ RN - 07/28/2014 23:00 CDT Social Habits Tobacco Use/Currently Using : Yes Exposure to Tobacco Smoke : Patient smokes Smoking Status : Current every day smoker OMERO FERNANDEZ RN - 07/28/2014 23:00 CDT Tobacco Use Grid Type : Cigarettes Cigarette Use Packs/Day : 0.5 Last Use : 07/28/2014 OMERO FERNANDEZ RN - 07/28/2014 23:00 CDT Alcohol Use Grid Alcohol Use : No No OMERO FERNANDEZ RN - 07/28/2014 23:00 CDT OMERO FERNANDEZ RN - 07/28/2014 23:00 CDT Recreational Drug Use Grid Drug Use : None OMERO FERNANDEZ RN - 07/28/2014 23:00 CDT Source: [facility] Document Id: [id number] CDT!64 Valeriy Drew P.A.-C. - 07/28/2014 8:43 PM CDT MEDRANO - Headache Document Contains Addenda Addendum by RYAN VALLEJO MD on 29 July 2014 6:11 CDT Appropriate care is provided. Electronically Signed By: VALERIY DREW On: 07/29/2014 12:07 AM Modified by and Electronically Signed by: VALERIY DREW On: 07/28/2014 09:04 PM Modified by and Electronically Signed by: RYAN VALLEJO MD On: 07/29/2014 06:11 AM MEDRANO - Headache Patient: CARTER LEI Age: 34 years Sex: Female : 1980 Author: VALERIY DREW Attachments: None Associated Diagnosis: Migraine Headache (MEDRANO) NOS Basic Information History source: Patient, mother (waiting in car). Arrival mode: Private vehicle, walking. History limitation: None. History of Present Illness The patient presents with migraine (typical migraine for her). The onset was 14 hours ago. The course/duration of symptoms is constant. Location: Bilateral frontal retro-orbital. The character of symptoms is throbbing. The degree at onset was minimal. The degree at maximum was moderate. The degree at present is moderate. There are exacerbating factors including light and exertion. The relieving factor is none. Risk factors consist of none and H/o migraines.. Prior episodes: occasional. Therapy today: over the counter medications including Ibuprofen and prescription medications including toradol. Preceding symptoms: none. Associated symptoms: nausea, vomiting, photophobia, denies dizziness, denies altered vision, denies fever, denies chills, denies syncope, denies altered speech and denies altered level of consciousness. Review of Systems Constitutional symptoms: No fever or no chills. Skin symptoms: Negative except as documented in HPI. Eye symptoms: Negative except as documented in HPI. ENMT symptoms: No ear pain, no sore throat, no nasal congestion or no sinus pain. Respiratory symptoms: Cough. Cardiovascular symptoms: Negative except as documented in [...] Silicone- No reactions were documented.. Medications: (Selected) Inpatient Medications Ordered Phenergan: 25 mg, 1 mL, IV Push, Once Toradol: 60 mg, 2 mL, IM, Once Prescriptions Prescribed benzoyl peroxide 5% topical gel: 1 sonya, Topical, 2xDay, 30 gm ketorolac 10 mg oral tablet: 10 mg, 1 tab(s), PO, 4xDay, (not to exceed 40 mg/day). NOT TO BE USED WITH OTHER NSAIDS, 30 tab(s), PRN: Migraine headache Documented Medications Documented Implanon 68 mg subcutaneous implant: 68 mg, 1 each, Subcut., Once Tylenol: 500 mg, PO, q6hr, PRN: Pain ibuprofen 200 mg oral tablet: 800 mg, 4 tab(s), PO, PRN. Past Medical/ Family/ Social History Medical history: Active Migraine headache (346.90): Onset on 04/17/1989 at 8 years. 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 Resolved. Comments: - Bladder pain Sinusitis (473.9): Onset on 05/19/2000 at 19 years. Resolved.. Surgical history: Dilation and curettage ([id number]) on 03/26/2013 at 32 Years. Endometrial sampling (biopsy) with or without endocervical sampling (biopsy), without cervical dilation, any method (separate procedure) ([id number]) on 12/09/2009 at 29 Years. RW ENT (ABSTRACTED) - 09/13/01 - Sinus surgery x 2 on 09/13/2001 at 21 Years. Tonsillectomy with adenoidectomy ([id number]) on 04/17/1994 at 13 Years. RW ENT (ABSTRACTED) - age 8 - tubes placed as child on 1980 at 8 Days.. Family history: Liver Mother Comments: 08/16/2010 09:57 - JENNIFER LIN Parvez CLEARY Liver failure Diabetes mellitus Mother Asthma Sister Hypertension Father MEDRANO - Headache Father . Social history: Alcohol use: Denies, Tobacco use: Regularly. Problem list: All Problems (Selected) Anxiety State, Unspecified / 300.00 / Confirmed Tobacco Use Disorder / 305.1 / Confirmed Migraine headache / 346.90 / Confirmed Allergic rhinitis, unspecified / 477.9 / Confirmed Acne vulgaris / 706.1 / Confirmed Thoracic or Lumbosacral Neuritis or Radiculitis, Unspecified / 724.4 / Confirmed. Physical Examination Vital Signs: Vital Signs 07/28/2014 20:25 CDT Temperature Core 36.8 DegC Peripheral Pulse Rate 71 /min Respiratory Rate 16 /min SpO2 98 % Systolic Blood Pressure 153 mmHg HI Diastolic Blood Pressure 82 mmHg Mean Arterial Pressure 106 mmHg 07/28/2014 20:17 CDT Temperature Core 36.8 DegC Peripheral Pulse Rate 89 /min Respiratory Rate 16 /min SpO2 98 % Systolic Blood Pressure 121 mmHg Diastolic Blood Pressure 91 mmHg >HHI Mean Arterial Pressure 101 mmHg . General: Alert and mild distress. Skin: Warm, dry and pink. Head: Normocephalic and atraumatic. Eye: Pupils are equal, round and reactive to light, extraocular movements are intact and normal conjunctiva. Ears, nose, mouth and throat: Oral mucosa moist. Cardiovascular: Regular rate and rhythm and Normal peripheral perfusion. Respiratory: Lungs are clear to auscultation, respirations are non-labored, breath sounds are equal and Symmetrical chest wall expansion. Musculoskeletal: Normal ROM. normal strength. no tenderness. no swelling. Neurological: Alert and oriented to person, place, time, and situation, CN II- XII intact, normal sensory observed, normal motor observed, normal speech observed and normal coordination observed. Psychiatric: Cooperative and appropriate mood & affect. Medical Decision Making Differential Diagnosis:Migraine. Documents reviewed:Emergency department nurses' notes. OrdersLaunch Orders Pharmacy: Phenergan (Order Processing): 25 mg, IV Push, Once Toradol (Order Processing): 60 mg, IM, Once, Launch Orders Pharmacy: Phenergan (Order Processing): 25 mg, IM, Once. Reexamination/ Reevaluation MEDRANO improved. Asking to d/c shortly after injections given. Impression and Plan Diagnosis Migraine Headache (MEDRANO) NOS (Discharge, Emergency medicine, Medical) Plan Condition: Improved, Stable. Disposition: Medically cleared, Discharged: to home. Patient was given the following educational materials: HEADACHE, Migraine (Classical), HEADACHE, Migraine (Classical). Follow up with: ; Follow up with primary care provider Within As Needed For recheck. Counseled: Patient, Regarding diagnosis, Regarding diagnostic results, Regarding treatment plan, Patient indicated understanding of instructions. Electronically Signed By: VALERIY DREW On: 07/29/2014 12:07 AM Modified by and Electronically Signed by: VALERIY DREW On: 07/28/2014 09:04 PM Source: [facility] [employer] Document Id: [id number]} Aishwarya Gr RLashawnNLashawn - 07/28/2014 8:25 PM CDT ED Triage Assessment Document Has Been Updated ED Triage Assessment Entered On: 07/28/2014 20:27 CDT Performed On: 07/28/2014 20:25 CDT by AISHWARYA GR RN Reason For Visit (As Of: 07/28/2014 20:27:15 CDT) Problems(Active) Acne vulgaris (ICD-9-CM :706.1 ) Name of Problem: Acne vulgaris ; Recorder: ALLEN BEDOYA RN; Confirmation: Confirmed ; Classification: Nursing ; Code: 706.1 ; Contributor System: TUNJI ; Last Updated: 12/17/2010 11:55 CDT ; Life Cycle Date: 12/17/2010 ; Life Cycle Status: Active ; Responsible Provider: ALLEN BEDOYA RN; Vocabulary: ICD-9-CM ; Comments: 12/17/2010 11:55 - ALLEN BEDOYA RN Date of onset unknown Allergic rhinitis, unspecified (ICD-9-CM :477.9 ) Name of Problem: Allergic rhinitis, unspecified ; Onset Date: 08/22/2011 ; Recorder: JANAY WAYNE RN, [facility]; Confirmation: Confirmed ; Classification: Medical ; Code: [...] Medical ; Code: 346.90 ; Contributor System: TUNJI ; Last Updated: 04/12/2011 17:14 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 ; Life Cycle Date: 06/10/2010 ; Life [...] NEEDED ; Code: 724.4 ; Contributor System: [facility]_HX_PR_UPLOAD ; Last Updated: 07/13/2013 18:13 [...] Life Cycle Status: Active ; Responsible Provider: TONE, JANAY L RN, PEBBLE MILL OPERATOR; Vocabulary: ICD-9-CM Diagnoses(Active) MEDRANO - Headache Date: 07/28/2014 ; Diagnosis Type: Reason For Visit ; Confirmation: Complaint of ; Clinical Dx: MEDRANO - Headache ; Classification: Medical ; Clinical Service: Emergency medicine ; Code: PNED; Probability: 0 ; Diagnosis Code: [id number] Triage Chief Complaint Description : patient presents with right elbow splinter that he thinks is wood Information Given By : Patient Accompanied By : Alone Mode of Arrival ED : Private vehicle Track : Medical Languages : Ghanaian Vital Signs Assessed : Yes Treatments Prior to Arrival : None Are you ? : No Is Patient Female and 13-50 no hysterectomy : Yes Status : Patient denies AISHWARYA GR RN - 07/28/2014 20:25 CDT Vital Signs Temperature Core : 36.8 DegC(Converted to: 98.2 DegF) Peripheral Pulse Rate : 71 /min Respiratory Rate : 16 /min Systolic Blood Pressure : 153 mmHg (HI) Diastolic Blood Pressure : 82 mmHg NIBP Mean : 106 mmHg SpO2 : 98 % Oxygen Therapy : Room air AISHWARYA GR RN - 07/28/2014 20:25 CDT Pain Assessment Pain Symptoms : Yes AISHWARYA GR RN - 07/28/2014 20:25 CDT ID Screen Drug Resistant Organism : No Travel Within Last 21 Days : No Contact with someone with Ebola : No AISHWARYA GR RN - 07/28/2014 20:25 CDT Immunizations Immunizations Current : No AISHWRAYA GR RN - 07/28/2014 20:25 CDT Source: [facility] POWERCHART Document Id: [id number] CDT!30 Aishwarya Gr R.N. 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 ; Life Cycle Date: 06/10/2010 ; Life [...] NEEDED ; Code: 724.4 ; Contributor System: [facility]_HX_PR_UPLOAD ; Last Updated: 07/13/2013 18:13 CDT ; Life Cycle Status: Active ; Vocabulary: ICD-9-CM ; Comments: - Lumbarradiculopathy Tobacco Use Disorder (ICD-9-CM :305.1 ) Name of Problem: Tobacco Use Disorder ; Onset Date: 08/22/2011 ; Recorder: JANAY WAYNE RN, PEBBLE MILL OPERATOR; Confirmation: Confirmed ; Classification: Medical ; Code: 305.1 ; Last Updated: 08/22/2011 13:54 CDT ; Life Cycle Status: Active ; Responsible Provider: JANAY WAYNE RN PEBBLE MILL OPERATOR; Vocabulary: ICD-9-CM Diagnoses(Active) MEDRANO - Headache Date: 07/28/2014 ; Diagnosis Type: Reason For Visit ; Confirmation: Complaint of ; Clinical Dx: MEDRANO - Headache ; Classification: Medical ; Clinical Service: Emergency medicine ; Code: PNED; Probability: 0 ; Diagnosis Code: [id number] Triage Chief Complaint Description : presents with migraine that started at 0600. States she gets migraineslike this every couple of months Information Given By : Patient Accompanied By : Alone Mode of Arrival ED : Private vehicle Track : Medical Languages : Ghanaian Patient Informed of Triage Location : Emergency department Vital Signs Assessed : Yes Treatments Prior to Arrival : None Are you ? : No Is Patient Female and 13-50 no hysterectomy : Yes Status : Patient denies AISHWARYA GR RN - 07/28/2014 20:17 CDT Vital Signs Temperature Core : 36.8 DegC(Converted to: 98.2 DegF) Peripheral Pulse Rate : 89 /min Respiratory Rate : 16 /min Systolic Blood Pressure : 121 mmHg Diastolic Blood Pressure : 91 mmHg (>HHI) NIBP Mean : 101 mmHg SpO2 : 98 % Oxygen Therapy : Room air AISHWARYA GR RN - 07/28/2014 20:17 CDT Pain Assessment Pain Symptoms : Yes AISHWARYA GR RN - 07/28/2014 20:17 CDT Pain Scale Pain Scale Verbal 0-10 : Open AISHWARYA GR RN - 07/28/2014 20:17 CDT Pain Pain Assessment Grid Pain 1 Location : Head Laterality : Bilateral Intensity : 8 Time Pattern : Acute AISHWARYA GR RN - 07/28/2014 20:17 CDT ED Physician Notification Time ED Physician Notification Time : 07/28/2014 20:19 CDT AISHWARYA GR RN - 07/28/2014 20:17 CDT MORALES DCP GENERIC CODE Tracking Acuity : 4 -Less Urgent Tracking Group : [facility] ED AISHWARYA GR RN - 07/28/2014 20:17 CDT Allergy (As Of: 07/28/2014 20:19:52 CDT) Allergies (Active) Augmentin XR Estimated Onset Date: Unspecified ; Reactions: GI distress ; Created By: MYRNA EDMONDS MD; Reaction Status: Active ; Category: Drug ; Substance: Augmentin XR ; Type: Intolerance ; Severity: Moderate ; Updated By: MYRNA EDMONDS MD; Source: Patient ; Reviewed Date: 07/18/2014 13:01 CDT Cipro Estimated Onset Date: Unspecified ; Created By: YASMANY CAVANAUGH RN; Reaction Status: Active ; Category: Drug ; Substance: Cipro ; Type: Allergy ; Updated By: YASMANY CAVANAUGH RN; Reviewed Date: 07/18/2014 13:01 CDT quinolone antibiotics Comments: Comment 1: QUINOLONES - Cipro; vomiting ; Created By: Contributor_system [facility]_HX_ALRG_SYS; Reaction Status: Active ; Category: Drug ; Substance: quinolone antibiotics ;Type: Unknown ; Updated By: Contributor_system [facility]_HX_ALRG_SYS; Reviewed Date: 07/18/2014 13:01 CDT Silicone Estimated Onset Date: Unspecified ; Created By: JENNIFER FRANCIS RN; Reaction Status: Active ; Category: Drug ; Substance: Silicone ; Type: Sensitivity ; Updated By: JENNIFER FRANCIS RN; Reviewed Date: 07/18/2014 13:01 CDT ID Screen Drug Resistant Organism : No Travel Within Last 21 Days : No Contact with someone with Ebola : No AISHWARYA GR RN - 07/28/2014 20:17 CDT Immunizations Immunizations Current : No AISHWARYA GR RN - 07/28/2014 20:17 CDT Source: [facility] [employer] Document Id: [id number] CDT!46 documented in this encounter Miscellaneous Notes Miscellaneous - Omero Fernandez R.N. - 07/28/2014 11:02 PM CDT Valuables/Belongings Valuables/Belongings Entered On: 07/28/2014 23:02 CDT Performed On: 07/28/2014 23:02 CDT by OMERO FERNANDEZ RN Valuables/Belongings Home Medication Disposition : None brought in with patient OMERO FERNANDEZ RN - 07/28/2014 23:02 CDT Source: [facility] Document Id: [id number] CDT!3 Miscellaneous - Conversion, Historical Provider Ser - 07/28/2014 9:54 PM CDT Coding Summary-Paper Based CODING DATE: 07/31/2014 FINAL [facility] STATUS: * Discharged to Home or Self Care PAYOR: Medicaid ADMIT DX: 346.90 Migraine, Unspecified, without Mention of Intractable Migraine, without Mention of Status Migrainosus REASON FOR VISIT DX: 346.90 Migraine, Unspecified, without Mention of Intractable Migraine, without Mention of Status Migrainosus FINAL DX: PRINCIPAL: 346.90 Migraine, Unspecified, without Mention of Intractable Migraine, without Mention of Status Migrainosus SECONDARY: PROCEDURES DOCTOR NAME DATE NOTE: The code number assigned matches the documented diagnosis and / or procedure in the patient's chart. However, the narrative phrase printed from the coding software may appear abbreviated, or result in slightly different terminology. Coded By: LEÓN HATCH Date Saved: 07/31/2014 08:52 am Source: [facility] Document Id: [id number] Miscellaneous - Omero Fernandez R.N. - 07/28/2014 8:08 PM CDT Facility Charge Ticket 2.0 11.0 DX Facility Charge Ticket 2.0 11.0 DX Entered On: 07/28/2014 23:02 CDT Performed On: 07/28/2014 20:08 CDT by OMERO FERNANDEZ RN Facility Charge Ticket 2.0 11.0 DX ED Other Charges : Standard ED Encounter TVL Level Translated RTF : MEDRANO - Headache TVL:4 TVL Level for Facility Charge Ticket : Level 4 Arrival Mode Calc : 1 Mode of Arrival ED : Private vehicle [facility] Mode of Arrival Interpreted : Standard [facility] Process Management : None [facility] Order Management : None 30 Minutes Critical Care : No Nursing Notes RTF : Triage Forms ED Triage Assessment,07/28/14 20:25,AISHWARYA GR [employer] Triage Assessment,07/28/14 20:17,AISHWARYA GR RN [facility] Nursing Assessment : Triage and 1-2 nursing assessments [facility] Disposition : Discharge Disposition RTF : discharge [facility] Total Points with Diagnosis Control : 7 [facility] Visit Level : 97986 Level 3 Treatments Prior to Arrival : None OMERO FERNANDEZ RN - 07/28/2014 23:02 CDT Source: [facility] Document Id: [id number] documented in this encounter Plan of Treatment Not on filedocumented as of this encounter Visit Diagnoses Not on filedocumented in this encounter Additional Health Concerns Assessment Noted Time PHQ-9 Depression Total Score: 1 06/13/2014 1:45 PM 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 documented as of this encounter
--- OUTSIDE RECORDS SUMMARY | 2022-03-16 15:07 | XMS_ITS | Encounter Summary ---
:1980 Author Organization [facility] Address [address] [place] [address] Care Team Providers Name Role Phone Unavailable Primary Care Provider Unavailable Encounter Details Date Type Department Care Team Description 07/06/2014 Hospital Encounter HX [facility] Scottie Jones Jr., M.D. [address] [facility] [place], [place] [address] (Wo rk) Social History Tobacco Use Types [...] Sign Reading Time Taken Comments Blood Pressure 128/92 07/06/2014 12:29 AM CDT Pulse 106 07/06/2014 12:29 AM CDT Temperature - - Respiratory Rate 18 07/06/2014 12:29 AM CDT Oxygen Saturation - - Inhaled Oxygen Concentration - - Weight - - Height 158 cm (5' 2.21) 07/06/2014 12:29 AM CDT Body Mass Index - - documented in this encounter Discharge Summaries Yanira Gamble R.N. - 07/06/2014 1:21 AM CDT ED Discharge Instructions [address] [address] Name: CARTER LEI Date of : 1980 12:00 AM Visit Date: 07/06/2014 12:22 AM [facility] Number: [id number] Address: [address] [place] [phone] Primary Care Provider: ANDREW VERA DNP, INSPECTOR PLATING IMPORTANT: [facility] in [place] would like to thank you for allowing us to assist you with your healthcare needs. The following includes patient education materials and informationregarding your injury/illness. Diagnosis: Pharyngitis (Ph) Acute Follow-Up Instructions: With: Address: When: ANDREW VERA [address] [place] [id number] Business (1) Within As Needed Comments: Your Upcoming Appointments: Date Time Location Provider 07/10/2014 07:45 [facility] Family Med Raquel Omalley MD Patient Education Materials: [id number] VIRAL PHARYNGITIS (Sore Throat) Your throat pain is due to an infection called Viral Pharyngitis, commonly known as Sore Throat.This is a contagious illness. It is spread through the air by coughing, kissing or by touching others after touching your mouth or nose. Symptoms include throat pain worse with swallowing, aching all over, headache and fever. Unlike strep throat, which is a bacterial infection, this illness does not require treatment with an antibiotic. HOME CARE: 1. If your symptoms are severe, rest at home for the first 2-3 days. 2. Children: Use acetaminophen (Tylenol) for fever, fussiness or discomfort. In infants over six months of age, you may use ibuprofen (Children's Motrin) instead of Tylenol. [NOTE: If your child has chronic liver or kidney disease or ever had a stomach ulcer or GI bleeding, talk with your zuleima doctor before using these medicines.] (Aspirin should never be used in anyone under 18 years of age who isill with a fever. It may cause severe liver damage.) Adults: You may use acetaminophen (Tylenol) or ibuprofen (Motrin, Advil) to control pain or fever, unless another medicine was prescribed. [NOTE: If you have chronic liver or kidney disease or ever hada stomach ulcer or GI bleeding, talk with your doctor before using these medicines.] 3. Throat lozenges or sprays (Chloraseptic and others) will reduce pain. Gargling with warm salt water will also reduce throat pain. Dissolve 1/2 teaspoon of salt in 1 glass of warm water. This is especially useful just before meals. FOLLOW UP with your doctor or as directed by our staff if you are not improving over the next week. GET PROMPT MEDICAL ATTENTION if any of the following occur: ?? Fever over 100.5??F (38.0??C) oral, or over 101.5??F (38.6??C) rectal for more than three days ?? New or worsening ear pain, sinus pain or headache ?? Painful lumps in the back of your neck ?? Unable to swallow liquids or open your mouth wide due to throat pain ?? Trouble breathing or noisy breathing ?? Muffled voice New rash ?? [id number] Mary Desai, [address] [place] [address], [place] [address]. All rights reserved. This information is not intended as a substitute for professional medical care. Always follow your healthcare professional's instructions. fs24 ED Tests and Procedures: Order Status Rapid Strep Confirmation Ordered Strep A Screen Rapid Completed Discharge Prescriptions & Home Medications: Medication/Strength Dose Route Frequency Indications/Special Instructions/Comments/Notes methylPREDNISolone (Medrol Dosepak 4 mg oral tablet) See special instructions Oral as directed for 6Days ketorolac (ketorolac 10 mg oral tablet) 10 mg Oral four times a day as needed for Migraine headache (not to exceed 40 mg/day). NOT TO BE USED WITH OTHER NSAIDS etonogestrel (Implanon 68 mg subcutaneous implant) 68 mg Subcutaneous once ibuprofen (ibuprofen 200 mg oral tablet) 800 mg Oral as needed *benzoyl peroxide topical (benzoyl peroxide 5% topical gel) [...] to take those medications. CARTER LEI or holely has reviewed the home medications you have [...] arrange a ride home with a responsible constitution party. RODRICK Ace GINA MARIE , or responsible constitution party have received this information and my [...] to take those medications. CARTER LEI or lyudmilaee has reviewed the home medications you have [...] arrange a ride home with a responsible constitution party. RODRICK Ace GINA MARIE , or responsible constitution party have received this information and my questions have been answered. I have discussed any challenges I see with this plan with the nurse or physician. Patient Signature or Responsible Green Party/Relationship Date Time Provider Signature Date Time This document has images extracted. Please consider using [employer] for all your patient education needs. Source: [facility] [employer] Document Id: [id number] Yanira Gamble R.N. - 07/06/2014 1:21 AM CDT ED Depart Summary [facility] Emergency Department Clinical Discharge Summary PERSON INFORMATION Name CARTER LEI Age 34 Years 1980 12:00 AM Sex Female Language South Sudanese PCP ANDREW VERA DNP, INSPECTOR PLATING Marital Status Single Visit Id Visit Reason UC - Sore Throat; Throat pain - Adult; sore throat/ear pain Specialty Enc Type Emergency Med Service Emergency Medicine Referred by Track Group [facility] ED Discharge 07/06/2014 1:21 AM Tracking Id [id number] Checkout 07/06/2014 1:21 AM Checkin 07/06/2014 12:22 AM Acuity 3 -Urgent Dispo Type * Discharged to Home or Self Care Arrival 07/06/2014 12:22 AM Reg Status Complete LOS 000 00:59 Address: [address] [place] [phone] Comment: PROVIDER INFORMATION Provider Role Provider Contact Time FAITH LOAIZA MD ED Provider 07/06/14 00:34 YANIRA GAMBLE STAFF MINE WARFARE OFFICER Nurse 07/06/14 00:34 DIAGNOSIS Pharyngitis (Ph) Acute Comment: PATIENT EDUCATION INFORMATION Instructions: PHARYNGITIS, Viral Follow up: With: Address: When: ANDREW VERA [address] [address] [facility] (7) Within As Needed Comments: Source: [facility] [employer] Document Id: [id number] documented in this encounter Medications at Time of Discharge Medication Sig Dispensed Refills Start Date End Date ACETAMINOPHEN ORAL Take 500 mg by 0 06/04/2013 mouth every 6 (six) hours as needed. ibuprofen Take 4 tablets by 0 04/22/2014 020 (for_ADVIL,MOTRIN) 200 mg mouth as needed. tablet documented as of this encounter ED Notes Yanira Gamble R.N. - 07/06/2014 1:10 AM CDT ED Pain Assessment ED Pain Assessment Entered On: 07/06/2014 1:10 CDT Performed On: 07/06/2014 1:10 CDT by YANIRA GAMBLE RN Pain Assessment Pain Symptoms : Yes YANIRA GAMBLE RN - 07/06/2014 1:10 CDT Source: [employer] Document Id: [id number] CDT!3 Yanira Gamble R.N. - 07/06/2014 1:09 AM CDT ED Disposition Summary ED Disposition Summary Entered On: 07/06/2014 1:10 CDT Performed On: 07/06/2014 1:09 CDT by YANIRA GAMBLE RN ED Disposition Summary Accompanied By : Alone Mode of Discharge : Ambulatory Transportation : Private vehicle Printed Discharge Instructions Given to Patient : Yes Patient Status at Discharge from ED : Unchanged YANIRA GAMBLE RN - 07/06/2014 1:09 CDT Source: [employer] Document Id: [id number] CDT!7 Faith Loaiza Jr., M.D. - 07/06/2014 1:06 AM CDT UC - Sore Throat Patient: CARTER LEI Age: 34 years Sex: Female : 1980 Author: FAITH LOAIZA MD Attachments: None Associated Diagnosis: Pharyngitis (Ph) Acute Basic Information Additional information: Chief Complaint from Nursing Triage Note : Chief Complaint Description 07/06/2014 0:31 CDT Chief Complaint Description see triage 07/06/2014 0:29 CDT Chief Complaint Description Pt presents to ER with c/o sore throat and bilat ears hurting. . History of Present Illness The patient presents with sore throat. The onset was 4 days ago. The course/duration of symptoms is worsening. Location: Bilateral posterior pharynx. The character of symptoms is pain and swelling. Thedegree at present is moderate. There are exacerbating factors including coughing and swallowing. The relieving factor is none. Risk factors consist of smoking. Prior episodes: occasional. Therapy today: over the counter medications including Tylenol, Ibuprofen and degree of relief none. Associated symptoms: rhinorrhea, nasal congestion and ear pain. Pt with 4 day h/o ST and ear pain. Notes son was marie ated recently for croup. Had tonsils out as a teen. Here because I need something, because I have abaptism in the morning. Tylenol and ibuprofen don't do anything.. Review of Systems Constitutional symptoms: Negative except as documented in HPI. Skin symptoms: Negative except as documented in HPI. Eye symptoms: Negative except as documented in HPI. ENMT symptoms: Ear pain, sore throat and nasal congestion. Respiratory symptoms: Negative except as documented in [...] symptoms: Negative except as documented in HPI. Additional review of systems information: All other [...] on 04/17/1989 at 8 years. Comments: 06/10/2010 CAFE HELPER 16:12 CAFE HELPER - SANDRINE FULLER RN no known date of onset Resolved Other Symptoms Involving Urinary System (978.99): Onset on 03/04/2008 at 27 years. Resolved. Comments: - Bladder pain Sinusitis (473.9): Onset on 05/19/2000 at 19 years. Resolved.. Surgical history: Dilation and curettage ([id number]) on 03/26/2013 at 32 Years. Endometrial sampling (biopsy) with or without endocervical sampling (biopsy), without cervical dilation, any method (separate procedure) ([id number]) on 12/09/2009 at 29 Years. RW ENT (ABSTRACTED) - 09/13/01 - Sinus surgery x 2 on 09/13/2001 at 21 Years. Tonsillectomy with adenoidectomy ([id number]) on 04/17/1994 at 13 Years. RW ENT (ABSTRACTED) - age 8 - tubes placed as child on 1980 at 8 Days.. Family history: Liver Mother Comments: 08/16/2010 09:57 - JENNIFER LIN EXPLOSIVE EXPERT Liver failure Diabetes mellitus Mother Asthma Sister Hypertension Father MEDRANO - Headache Father . Physical Examination Vital Signs: Vital Signs 07/06/2014 0:29 CDT Temperature Core 36.6 DegC Peripheral Pulse Rate 106 /min HI Respiratory Rate 18 /min SpO2 100 % Systolic Blood Pressure 128 mmHg Diastolic Blood Pressure 92 mmHg >HHI Mean Arterial Pressure 104 mmHg , SpO2 07/06/2014 0:29 CDT SpO2 100 % . General: Alert and mild distress. Skin: Warm, dry and pink. Head: Normocephalic and atraumatic. Neck: Supple, trachea midline and Tender LAD. Eye: Pupils are equal, round and reactive to light, extraocular movements are intact and normal conjunctiva. Ears, nose, mouth and throat: Tympanic membranes clear, Mouth: Dry mucous membranes and Throat: Left, mild, erythema, with exudate, gag reflex present. Respiratory: Lungs are clear to auscultation and respirations are non-labored. Cardiovascular: Regular rate and rhythm and No murmur. Neurological: Alert and oriented to person, place, time, and situation, No focal neurological deficit observed and CN II-XII intact. Lymphatics: Cervical LAD b/l. . Psychiatric: Cooperative and Tearful. . Medical Decision Making Differential Diagnosis:Viral pharyngitis, streptococcal pharyngitis, exudative pharyngitis, viral syndrome, upper respiratory infection. Results review:Lab results : Lab View 07/06/2014 0:30 CDT Strep A Screen Rapid Review . Impression and Plan Diagnosis Pharyngitis (Ph) Acute (Discharge, Emergency medicine, Medical) Plan Condition: Unchanged. Disposition: Medically cleared, Discharged: Time 07/06/2014 01:12:00, to home. Prescriptions: Prescription [facility] Front [facility]k [facility] Pharm[facility]: Medrol Dosepak 4 mg oral tablet (Prescribe): See special instructions, PO, As Directed, 21 tab(s). Patient was given the following educational materials: PHARYNGITIS, Viral. Follow up with: Primary Care Physician, In: as needed. Counseled: Patient. Notes: D/w patient that this was likely a viral pharyngitis and required analgesics and time. Patient became tearful and said this was a waste of time, wondered if there was anything I could give. Noted son had steroids for croup. I informed her that was for concern of his airway, and recommended against, as steroids could impair immune function. Recommended Afrin nasal spray for ear pain and gargling as well as tylenol/ibuprofen for pain. Patient insisted on something and I offered Medrol DosePakfor inflammation. Pt was dismissed and directed to f/u prn. . Electronically Signed By: FAITH LOAIZA MD On: 07/06/2014 01:15 AM Source: [facility] POWERCHART Document Id: [id number]} Yanira Gamble, R.N. - 07/06/2014 12:31 AM CDT ED Primary Assessment Document Has Been Updated ED Primary Assessment Entered On: 07/06/2014 0:32 CDT Performed On: 07/06/2014 0:31 CDT by YANIRA GAMBLE RN Reason For Visit (As Of: 07/06/2014 00:32:41 CDT) Problems(Active) Acne vulgaris (ICD-9-CM :706.1 ) Name of Problem: Acne vulgaris ; Recorder: ALLEN BEDOYA RN; Confirmation: Confirmed ; Classification: Nursing ; Code: 706.1 ; Contributor System: Touchstorm ; Last Updated: 12/17/2010 11:55 CDT ; Life Cycle Date: 12/17/2010 ; Life Cycle Status: Active ; Responsible Provider: ALLEN BEDOYA RN; Vocabulary: ICD-9-CM ; Comments: 12/17/2010 11:55 - ALLEN BEDOYA RN Date of onset unknown Allergic rhinitis, unspecified (ICD-9-CM :477.9 ) Name of Problem: Allergic rhinitis, unspecified ; Onset Date: 08/22/2011 ; Recorder: JANAY WAYNE RN, ENOLOGIST; Confirmation: Confirmed ; Classification: Medical ; Code: 477.9 ; Last Updated: 08/22/2011 13:54 CDT ; Life Cycle Status: Active ; Responsible P rovider: JANAY WAYNE RN, ENOLOGIST; Vocabulary: ICD-9-CM Anxiety State, Unspecified (ICD-9-CM :300.00 [...] Medical ; Code: 346.90 ; Contributor System: Touchstorm ; Last Updated: 04/12/2011 17:14 CAFE HELPER ; Life Cycle Date: 06/10/2010 ; Life [...] NEEDED ; Code: 724.4 ; Contributor System: [facility]_HX_PR_UPLOAD ; Last Updated: 07/13/2013 18:13 [...] Active ; Responsible Provider: JANAY WAYNE RN, LANIE; Vocabulary: ICD-9-CM Triage Chief Complaint Description : see triage Mode of Arrival ED : Private vehicle, Ambulatory Track : Medical Languages : [place]ese Treatments Prior to Arrival : None, Ibuprofen Are you ? : No Is Patient Female and 13-50 no hysterectomy : Yes Status : Patient denies YANIRA GAMBLE RN - 07/06/2014 0:31 CDT Pain Assessment Pain Symptoms : Yes YANIRA GAMBLE RN - 07/06/2014 0:31 CDT ID Screen Drug Resistant Organism : No Travel Within Last 21 Days : No Contact with someone with Ebola : No YANIRA GAMBLE RN - 07/06/2014 0:31 CDT Respiratory Airway : Patent Respirations : Unlabored Respiratory Pattern : Regular YANIRA GAMBLE RN - 07/06/2014 0:31 CDT Cardiovascular Heart Rhythm : Regular Skin Color : Normal for ethnicity Skin Description : Dry Skin Temperature : Warm YANIRA GAMBLE RN - 07/06/2014 0:31 CDT Neurological Last Well Time Known : Not applicable Level of Consciousness : Alert Orientation : Oriented x 3 Characteristics of Speech : Appropriate for age YANIRA GAMBLE RN - 07/06/2014 0:31 CDT ED Psychosocial Affect/Behavior : Calm Domestic Abuse Concerns : None YANIRA GAMBLE RN - 07/06/2014 0:31 CDT Gastrointestinal Nutrition ED : Adequate YANIRA GAMBLE RN - 07/06/2014 0:31 CDT Musculoskeletal Fall Prevention Education Provided : YANIRA LUONG RN - 07/06/2014 0:31 CDT Social Habits Tobacco Use/Currently Using : Yes Exposure to Tobacco Smoke : Patient smokes Smoking Status : Current every day smoker YANIRA GAMBLE RN - 07/06/2014 0:31 CDT Tobacco Use Grid Type : Cigarettes Cigarette Use Packs/Day : 0.5 YANIRA GAMBLE RN - 07/06/2014 0:31 CDT Alcohol Use Grid Alcohol Use : No No YANIRA GAMBLE RN - 07/06/2014 0:31 CDT YANIRA GAMBLE RN - 07/06/2014 0:31 CDT Recreational Drug Use Grid Drug Use : None YANIRA GAMBLE RN - 07/06/2014 0:31 CDT Source: [facility] [employer] Document Id: [id number] CDT!53 Yanira Gamble R.N. - 07/06/2014 12:29 AM CDT ED Triage Assessment Document Has Been Updated ED Triage Assessment Entered On: 07/06/2014 0:31 CDT Performed On: 07/06/2014 0:29 CDT by YANIRA GAMBLE RN Reason For Visit (As Of: 07/06/2014 00:31:47 CDT) Problems(Active) Acne vulgaris (ICD-9-CM :706.1 ) Name of Problem: Acne vulgaris ; Recorder: ALLEN BEDOYA RN; Confirmation: Confirmed ; Classification: Nursing ; Code: 706.1 ; Contributor System: Touchstorm ; Last Updated: 12/17/2010 11:55 CDT ; Life Cycle Date: 12/17/2010 ; Life Cycle Status: Active ; Responsible Provider: ALLEN BEDOYA RN; Vocabulary: ICD-9-CM ; Comments: 12/17/2010 11:55 - ALLEN BEDOYA RN Date of onset unknown Allergic rhinitis, unspecified (ICD-9-CM :477.9 ) Name of Problem: Allergic rhinitis, unspecified ; Onset Date: 08/22/2011 ; Recorder: JANAY WAYNE RN, ENOLOGIST; Confirmation: Confirmed ; Classification: Medical ; Code: [...] Medical ; Code: 346.90 ; Contributor System: Touchstorm ; Last Updated: 04/12/2011 17:14 CAFE HELPER ; Life Cycle Date: 06/10/2010 ; Life [...] NEEDED ; Code: 724.4 ; Contributor System: [employer]_PR_UPLOAD ; Last Updated: 07/13/2013 18:13 CDT ; [...] Vocabulary: ICD-9-CM Triage Chief Complaint Description : Pt presents to ER with c/o sore throat and bilat ears hurting. Information Given By : Patient Accompanied By : Alone Mode of Arrival ED : Private vehicle, Ambulatory Track : Medical Languages : [place]ese Vital Signs Assessed : Yes Treatments Prior to Arrival : None, Ibuprofen Are you ? : No Is Patient Female and 13-50 no hysterectomy : Yes Status : Patient denies YANIRA GAMBLE RN - 07/06/2014 0:29 CDT Vital Signs Temperature Core : 36.6 DegC(Converted to: 97.9 DegF) Peripheral Pulse Rate : 106 /min (HI) Respiratory Rate : 18 /min Systolic Blood Pressure : 128 mmHg Diastolic Blood Pressure : 92 mmHg (>HHI) NIBP Mean : 104 mmHg SpO2 : 100 % Oxygen Therapy : Room air Height : 158 cm(Converted to: 5 ft 2 inch(es)) Estimated Weight : 82 kg Estimated Weight Conversion to Pounds : 180.4 lb YANIRA GAMBLE RN - 07/06/2014 0:29 CDT Pain Assessment Pain Symptoms : Yes QUIN YANIRA Parvez MEJÍA 07/06/2014 0:29 CDT Pain Scale Pain Scale Verbal 0-10 : Open YANIRA GAMBLE Parvez MEJÍA 07/06/2014 0:29 CDT Pain Pain Assessment Grid Pain 1 Location : Other: throat and ears Intensity : 5 YANIRA GAMBLE ALFONZO - 07/06/2014 0:29 CDT Comfort Measures Comfort Measures Grid Rest : Yes YANIRA GAMBLE Parvez MEJÍA - 07/06/2014 0:29 CDT ED Physician Notification Time ED Physician Notification Time : 07/06/2014 0:31 CDT YANIRA GAMBLE Parvez MEJÍA - 07/06/2014 0:29 CDT MORALES MORALES Level 1 : No MORALES Level 2 : No MORALES Level 3 : One YANIRA GAMBLE RN - 07/06/2014 0:29 CDT DCP GENERIC CODE Tracking Acuity : 3 -Urgent Tracking Group : [facility] ED YANIRA GAMBLE Parvez RN - 07/06/2014 0:29 CDT Allergy (As Of: 07/06/2014 00:31:47 CDT) Allergies (Active) Augmentin XR Estimated Onset Date: Unspecified ; Reactions: GI distress ; Created By: MYRNA EDMONDS MD; Reaction Status: Active ; Category: Drug ; Substance: Augmentin XR ; Type: Intolerance ; Severity: Moderate ; Updated By: MYRNA EDMONDS MD; Source: Patient ; Reviewed Date: 07/06/2014 0:31 CDT Cipro Estimated Onset Date: Unspecified ; Created By: YASMANY CAVANAUGH RN; Reaction Status: Active ; Category: Drug ; Substance: Cipro ; Type: Allergy ; Updated By: YASMANY CAVANAUGH RN; Reviewed Date: 07/06/2014 0:31 CDT quinolone antibiotics Comments: Comment 1: QUINOLONES - Cipro; vomiting ; Created By: Contributor_system, [facility]_HX_ALRG_SYS; Reaction Status: Active ; Category: Drug ; Substance: quinolone antibiotics ;Type: Unknown ; Updated By: Contributor_system, [facility]_HX_ALRG_SYS; Reviewed Date: 07/06/2014 0:31 CDT Silicone Estimated Onset Date: Unspecified ; Created By: JENNIFER FRANCIS RN; Reaction Status: Active ; Category: Drug ; Substance: Silicone ; Type: Sensitivity ; Updated By: JENNIFER FRANCIS RN; Reviewed Date: 07/06/2014 0:31 CDT ID Screen Drug Resistant Organism : No Travel Within Last 21 Days : No Contact with someone with Ebola : No YANIRA GAMBLE RN - 07/06/2014 0:29 CDT Immunizations Immunizations Current : Yes YANIRA GAMBLE RN - 07/06/2014 0:29 CDT Source: [facility] [employer] Document Id: [id number] CDT!52 documented in this encounter Miscellaneous Notes Miscellaneous - Conversion, Historical Provider Ser - 07/06/2014 1:21 AM CDT Coding Summary-Paper Based CODING DATE: 07/09/2014 FINAL [facility] STATUS: * Discharged to Home or Self Care PAYOR: Medicaid ADMIT DX: 462 Acute Pharyngitis REASON FOR VISIT DX: 462 Acute Pharyngitis FINAL DX: PRINCIPAL: 462 Acute Pharyngitis SECONDARY: PROCEDURES DOCTOR NAME DATE NOTE: The code number assigned matches the documented diagnosis and / or procedure in the patient's chart. However, the narrative phrase printed from the coding software may appear abbreviated, or result in slightly different terminology. Coded By: LEÓN HATCH Date Saved: 07/09/2014 02:48 pm Source: [facility] [employer] Document Id: [id number] Jose Luis - Yanira Gamble R.N. - 07/06/2014 1:10 AM CDT Valuables/Belongings Valuables/Belongings Entered On: 07/06/2014 1:10 CDT Performed On: 07/06/2014 1:10 CDT by YANIRA GAMBLE RN Valuables/Belongings Home Medication Disposition : None brought in with patient YANIRA GAMBLE RN - 07/06/2014 1:10 CDT [facility] Document Id: [id number] CDT!3 Keyacellmarvin - Yanira Gamble R.N. - 07/06/2014 12:22 AM CDT Facility Charge Ticket 2.0 11.0 DX Facility Charge Ticket 2.0 11.0 DX Entered On: 07/06/2014 1:10 CDT Performed On: 07/06/2014 0:22 CDT by YANIRA GAMBLE RN Facility Charge Ticket 2.0 11.0 DX ED Other Charges : Standard ED Encounter TVL Level Translated RTF : Throat pain - Adult, UC - Sore Throat TVL:2 TVL Level for Facility Charge Ticket : Level 2 Arrival Mode Calc : 129 Mode of Arrival ED : Private vehicle, Ambulatory Lynx Mode of Arrival Interpreted : Standard Lynx Process Management : None Order Management RTF : Laboratory Rapid Strep Screen,07/06/14 00:27,FAITH LOAIZA MD Completed Rapid Strep Confirmation,07/06/14 00:47,FAITH LOAIZA MD Ordered Lynx Order Management : Lab tests 30 Minutes Critical Care : No Nursing Notes RTF : Triage Forms ED Triage Assessment,07/06/14 00:29,GAMBLE, YANIRA L RN Nursing Notes ED Primary Assessment,07/06/14 00:31,YANIRA GAMBLE STAFF MINE WARFARE OFFICER Pain Assessment,07/06/14 01:10,YANIRA GAMBLE RN Lynx Nursing Assessment : Triage and 1-2 nursing assessments Lynx Disposition : Discharge Lynx Total Points with Diagnosis Control : 5 Lynx Visit Level : 22076 Level 3 Treatments Prior to Arrival : None, Ibuprofen YANIRA GAMBLE RN - 07/06/2014 1:10 CDT Source: [facility] POWERCHART Document Id: [id number] CDT!18 documented in this encounter Plan of Treatment Not on filedocumented as of this encounter Procedures Procedure Name Priority Date/Time Associated Diagnosis Comme nts RAPID STREP A Routine 07/06/2014 12:30 AM Results for this SCREEN CDT procedure are i n the results section. RAPID STREP A Routine 07/06/2014 12:30 AM Results for this SCREEN CDT procedure are i n the results section. documented in this encounter Results Rapid Strep A Screen (07/06/2014 12:30 AM CDT) [employer] Method Time Signature HXRapid Strep POWERCHART Confirmation HXPre Negative for POWERCHART Group A Strep by culture. HXFinal Negative for POWERCHART Group A Strep by culture. Specimen Anatomical Collection Method Collection Time Receive d Time (Source) Location / / Volume Laterality Throat 07/06/2014 12:30 07/06/2014 AM CDT 12:30 AM CDT Faith Loaiza Jr., M.D. LAB MICROBIOLOGY - GENERAL ORDERABLES Performing Organization Address City/State/ZIP Code Phon e Number POWERCHART Rapid Strep A Screen (07/06/2014 12:30 AM CDT) [employer] Method Time Signature HXStrep A POWERCHART Screen Rapid HXFinal Negative for POWERCHART Strep Group A by rapid screen. HXFinal Culture POWERCHART confirmation to follow. Specimen (Source) Anatomical Collection Method Collection Time Re ceived Time Location / / Volume Laterality Throat 07/06/2014 12:30 AM CDT Faith G Josse Jr., M.D. LAB MICROBIOLOGY - GENERAL ORDERABLES Performing Organization Address City/State/ZIP Code Phon e Number POWERCHART documented in this encounter Visit Diagnoses Not on filedocumented in this encounter Additional Health Concerns Assessment Noted Time PHQ-9 Depression Total Score: 1 06/13/2014 1:45 PM [employer] documented as of this encounter
--- OUTSIDE RECORDS SUMMARY | 2022-03-16 15:07 | XMS_ITS | Encounter Summary ---
:1980 Author Organization [facility] Address [address] [place] [address] Care Team Providers Name Role Phone Unavailable Primary Care Provider Unavailable Encounter Details Date Type Department Care Team Description 09/02/2014 Hospital Encounter HX [facility] Raquel shetty M.D. [address] [place] [phone] (Wo rk) Social History Tobacco Use [...] Reading Time Taken Comments Blood Pressure 100/60 09/02/2014 12:46 PM CDT Pulse 76 09/02/2014 12:46 PM CDT Temperature - - Respiratory Rate 16 09/02/2014 12:46 PM CDT Oxygen Saturation - - Inhaled Oxygen Concentration - - Weight 86.9 kg (191 lb 9.3 oz) 09/02/2014 12:46 PM CDT Height 158 cm (5' 2.21) 09/02/2014 12:46 PM CDT Body Mass Index 34.81 09/02/2014 12:46 PM CDT documented in this encounter Medications at Time of Discharge Medication Sig Dispensed Refills Start Date End Date ACETAMINOPHEN ORAL Take 500 mg by 0 06/04/2013 mouth every 6 (six) hours as needed. ibuprofen Take 4 tablets by 0 04/22/2014 020 (for_ADVIL,MOTRIN) 200 mg mouth as needed. tablet documented as of this encounter Progress Notes Raquel Schmidt M.D. - 09/02/2014 4:06 PM CDT Clinic Full Note CHIEF COMPLAINT/REASON FOR VISIT lower back pain HISTORY OF PRESENT ILLNESS Dulce presents today due to low back pain which started yesterday. This morning it was so bad she woke in tears. She has had back pain in the past related to bladder infections. She also reports she was very active over the weekend at a garage sale and also felt a shooting pain in her back when she was playing with her kids on the floor. She denies any other urinary symptoms such as dysuria or frequency. No nausea, vomiting or fevers. The pain does not radiate down the legs and she denies any numbness or tingling. MEDICATIONS benzoyl peroxide 5% topical gel, 1 sonya, Topical, 2xDay, 6 refills ibuprofen 200 mg oral tablet, 800 mg, 4 tab(s), PO, PRN Implanon 68 mg subcutaneous implant, 68 mg, 1 each, Subcut., Once ketorolac 10 mg oral tablet, 10 mg, 1 tab(s), (not to exceed 40 mg/day). NOT TO BE USED WITH OTHER NSAIDS, PO, 4xDay, PRN, 0 refills Tylenol, 500 mg, PO, q6hr, [...] as child (1980). SOCIAL HISTORY Date Time: 09/02/2014 12:46 Tobacco: Smoking Status: No Results Found Exposure: No Results Found Alcohol: Use: No Recreational Drugs: Use: None Type: No Results Found FAMILY HISTORY Mother:Positive: Diabetes mellitus; Liver Father:Positive: MEDRANO - Headache; Hypertension Sister:Positive: Asthma SYSTEMS REVIEW As per HPI. VITAL SIGNS T: 37.1 ??C (Core) HR: 76 RR: 16 BP: 100 / 60 HT: 158 cm WT: 86.9 kg BMI: 34.81 PHYSICAL EXAMINATION GENERAL: Patient is alert and oriented in no acute distress HEART: Regular rate and rhythm. Normal S1, S2. No murmurs rubs or gallops. LUNGS: Clear to auscultation. BACK: No CVA tenderness. Patient has tenderness to palpation in bilateral paraspinal muscles in thelumbar region. Straight leg raise negative bilaterally. ABDOMEN: Soft. Nontender. No masses rebound or guarding. Normoactive bowel sounds. EXTREMITIES: No pedal edema. LAB RESULTS -----URINE/STOOL----- UA Color: Yellow (09/02/14) UA Clarity: Clear (09/02/14) UA Spec Grav: >=1.030 (09/02/14) UA pH: 5.5 (09/02/14) UA Protein: Negative (09/02/14) UA Glucose: Negative (09/02/14) UA Ketones: Negative (09/02/14) UA Bili: Negative (09/02/14) UA Urobilinogen: 0.2 (09/02/14) UA Blood: Negative (09/02/14) UA Nitrite: Negative (09/02/14) UA Leuk Est: Negative (09/02/14) UR WBC: Occ-3 (09/02/14) UR RBC: Occ-2 (09/02/14) UR Squamous Epi Cells: Occ-3 Abnormal (09/02/14) UR Bacteria: Present Abnormal (09/02/14) UR Mucous: Present Abnormal (09/02/14) IMPRESSION/REPORT/PLAN 1. Pain Back NOS We did obtain a urine which was not impressive for infection. Most likely this pain is more musculoskeletal in nature. She is given a prescription for Flexeril and advised to start with 1/2 pill to see how it affects her. She can continue with ibuprofen 800 mg 3 times a day. If things are not improving she will let us know. Ordered: OV Est Pt Level 3 - [address]194 - 15 min Orders: cyclobenzaprine, 0.5-1 tab(s), PO, 3xDay, PRN Muscle spasm, muscle relaxant, x 7 day(s), # 21 tab(s), 0 Refill(s), Acute, Pharmacy: [facility] ketorolac, 10 mg = 1 tab(s), PO, 4xDay, PRN Migraine headache, (not to exceed 40 mg/day). NOT TO BEUSED WITH OTHER NSAIDS, # 30 tab(s), 0 Refill(s), Acute, Pharmacy: [facility] Electronically Signed By: RAQUEL ARCHULETA MD On: 09/02/2014 04:09 PM Source: [facility] POWERCHART Document Id: [id number] documented in this encounter Nursing Notes Raquel Schmidt M.D. - 09/02/2014 1:22 PM CDT Ambulatory Patient Education The following Patient Education Materials have been given to the patient: Patient Education Materials: Ambulatory BACK SPASM, No Trauma BACK CARE TIPS Ambulatory Back Spasm [No Trauma] Spasm of the back muscles can occur after a sudden forceful twisting or bending force (such as in a car accident), after a simple awkward movement, or after lifting something heavy with poor body positioning. In either case, muscle spasm is often present and adds to the pain. Sleeping in an awkward position or on a poor quality mattress can also cause this. Some persons respond to emotional stress bytensing the muscles of their back. The treatment described below will usually help the pain to go away in 5-7 days. Pain that continuesmay require further evaluation or other types of treatment such as physical therapy. Unless you had a physical injury (for example, a car accident or fall), x-rays are usually not ordered for the initial evaluation of back pain. If pain continues and does not respond to medical treatment, x-rays and other tests may be performed at a later time. Home Care: You may need to stay in bed the first few days. But, as soon as possible, begin sitting or walking to avoid problems with prolonged bed rest (muscle weakness, worsening back stiffness and pain, blood clots in the legs). When in bed, try to find a position of comfort. A firm mattress is best. Try lying flat on your backwith pillows under your knees. You can also try lying on your side with your knees bent up toward your chest and a pillow between your knees. Avoid prolonged sitting. This puts more stress on the lower back than standing or walking. Some persons find relief with heat (hot shower, hot bath, or heating pad) and massage, while others prefer cold packs (crushed or cubed ice in a plastic bag, wrapped in a towel). Try both and use the method that feels best for 20 minutes several times a day. You may use acetaminophen (Tylenol) or ibuprofen (Motrin, Advil) to control pain, unless another pain medicine was prescribed. [NOTE: If you have chronic liver or kidney disease or ever had a stomach ulcer or GI bleeding, talk with your doctor before using these medicines.] Gentle stretching will help your back heal faster. Perform this simple routine 2-3 times a day untilyour back is feeling better. ?? LOW BACK STRETCH ?? Lie on your back with your knees bent and both feet on the ground. ?? Slowly raise your left knee to your chest as you flatten your lower back against the floor. Hold for 5 seconds. ?? Relax and repeat the exercise with your right knee. ?? Do 10 of these exercises for each leg. ?? Repeat, hugging both knees to your chest at the same time. Be aware of safe lifting methods and do not lift anything over 15 pounds until all the pain is gone. Follow Up with your doctor or this facility if your symptoms do not start to improve after one week. Physical therapy or further tests may be needed. [NOTE: If x-rays were taken, they will be reviewed by a radiologist. You will be notified of any newfindings that may affect your care.] Return Promptly or contact your doctor if any of the following occurs: ?? Pain becomes worse or spreads to your legs ?? Weakness or numbness in one or both legs ?? Loss of bowel or bladder control ?? Numbness in the groin or genital area ?? Unexplained fever over 100.4??F (38.0??C) ?? Burning or pain when passing urine ?? [id number] [place] [address]. All rights reserved. This information is not intended as a substitute for professional medical care. Always follow your healthcare professional's instructions. Back Care Tips These are things you can do to prevent a recurrence of acute back pain and to reduce symptoms from chronic back pain: ?? Maintain a healthy weight. If you are overweight, losing weight will help most types of back pain. ?? Exercise is an important part of recovery from most types of back pain. The back is supported by the muscles behind and in front of the spine. This means both the back muscles and the abdominal muscles must be strengthened to provide better support for your spine. ?? Swimming and brisk walking are good overall exercises to improve your fitness level. ?? Practice safe lifting methods (below). ?? Practice good posture when sitting, standing and walking. Avoid prolonged sitting. This puts morestress on the lower back than standing or walking. ?? Wear quality shoes with sufficient arch support. Foot and ankle alignment can affect back symptoms. Women should avoid high heels. ?? Therapeutic massage can help relieve acute and chronic back pain. ?? During the first two days after an acute injury or flare-up of chronic back pain, apply an ice pack to the painful area for 20 minutes every 2-4 hours. This will reduce swelling and pain. Heat (hot shower, hot bath, or heating pad) works well for muscle spasm. You can start with ice, then switch toheat after two days. Some patients feel best alternating ice and heat treatments. Use the one methodthat feels the best to you. ?? You may use acetaminophen (Tylenol) or ibuprofen (Motrin, Advil) to control pain, unless another medicine was prescribed. [NOTE: If you have chronic liver or kidney disease or ever had a stomach ulcer or GI bleeding, talk with your doctor before using these medicines.] Lumbar Stretch Here is a simple stretching exercise that will help relax muscle spasm and keep your back more limber. If exercise makes your back pain worse, dont do it. ?? Lie on your back with your knees bent and both feet on the ground. ?? Slowly raise your left knee to your chest as you flatten your lower back against the floor. Hold for 5 seconds. ?? Relax and repeat the exercise with your right knee. ?? Do 10 of these exercises for each leg. Safe Lifting Method ?? Dont bend over at the waist to lift an object off the floor. Instead, bend your knees and hips alice squat. ?? Keep your back and head upright. ?? Hold the object close to your body, directly in front of you. ?? Straighten your legs to lift the object. ?? Lower the object to the floor in the reverse fashion. ?? If you must slide something across the floor, push it. Posture Tips SITTING Sit in chairs with straight backs or low-back support. Keep your knees a little higher than your hips. If necessary, use a low stool to prop your feet on, so your feet are resting on a solid surface. When driving, sit up straight. Adjust the seat forward so you are not leaning toward the steering wheel. A small pillow or rolled towel behind your lower back may help if you are driving long distances. STANDING When standing for long periods, shift most of your weight to one leg at a time. Alternate legs everyfew minutes. SLEEPING The best way to sleep is on your side with your knees bent. Put a low pillow under your head to support your neck in a neutral spine position. Avoid thick pillows that bend your neck to one side. Put apillow between your legs to further relax your lower back. If you sleep on your back, put pillows under your knees to support your legs in a slightly flexed position. Use a firm mattress. If your mattress sags, replace it, or use a 1/2-inch plywood board under the mattress to add support. Follow Up with your doctor or as directed by our staff. [NOTE: If X-rays, a CT scan or an MRI scan were taken, they will be reviewed by a radiologist. You will be notified of any new findings that may affect your care.] Return Promptly or contact your doctor if any of the following occur: ?? Pain becomes worse or spreads to your arms or legs ?? Weakness or numbness in one or both arms or legs ?? Loss of bowel or bladder control ?? i-360Numbness in the groin area ?? [phone] [place] [address]. All rights reserved. This information is not intended as a substitute for professional medical care. Always follow your healthcare professional's instructions. This document has images extracted. Please consider using [employer] for all your patient education needs. Source: [facility] POWERCHART Document Id: [id number] documented in this encounter Miscellaneous Notes Miscellaneous - Raquel Schmidt M.D. - 09/02/2014 1:22 PM CDT Ambulatory Patient Summary [address] [place] [id number] Visit Information Name: DULCE LEI [facility] Number: [id number] Current Date: 09/02/2014 13:22:57 Physicians Attending Provider: RAQULE ARCHULETA MD Primary Care Provider: PCP, UNASSIGNED - DULCE GUAJARDO has been given the following list of [...] 1 sonya, Topical, two times a day cyclobenzaprine (Flexeril 5 mg oral tablet) 0.5-1 tab(s), Oral, three times a day as needed for Muscle spasm x 7 day(s) muscle relaxant New Routed to [address] [id number] etonogestrel (Implanon 68 mg subcutaneous implant) 1 Each, Subcutaneous, once ibuprofen (ibuprofen 200 mg oral tablet) 4 Tablet(s), Oral, as needed ketorolac (ketorolac 10 mg oral tablet) 1 Tablet(s), Oral, four times a day as needed for Migraine headache (not to exceed 40 mg/day). NOT TO BE USED WITH OTHER NSAIDS Routed to [address] [address] Stop Taking the Following Medications: Medication list as of 09-02-14 13:22 Attention: If you have any medications at home that are not on this list, DO NOT take them until youcontact your provider for clarification. Give a copy of your medication list to your primary care provider. Update your medication list any time medications or doses are changed and carry your medication list at all times in case of emergency. Electronically Signed By: Signed On: Your Allergies & Intolerances Substance Reaction Symptoms [...] local Clinic if further appointment detail needed. Back Spasm [No Trauma] Spasm of the back muscles can occur after a sudden forceful twisting or bending force (such as in a car accident), after a simple awkward movement, or after lifting something heavy with poor body positioning. In either case, muscle spasm is often present and adds to the pain. Sleeping in an awkward position or on a poor quality mattress can also cause this. Some persons respond to emotional stress bytensing the muscles of their back. The treatment described below will usually help the pain to go away in 5-7 days. Pain that continuesmay require further evaluation or other types of treatment such as physical therapy. Unless you had a physical injury (for example, a car accident or fall), x-rays are usually not ordered for the initial evaluation of back pain. If pain continues and does not respond to medical treatment, x-rays and other tests may be performed at a later time. Home Care: You may need to stay in bed the first few days. But, as soon as possible, begin sitting or walking to avoid problems with prolonged bed rest (muscle weakness, worsening back stiffness and pain, blood clots in the legs). When in bed, try to find a position of comfort. A firm mattress is best. Try lying flat on your backwith pillows under your knees. You can also try lying on your side with your knees bent up toward your chest and a pillow between your knees. Avoid prolonged sitting. This puts more stress on the lower back than standing or walking. Some persons find relief with heat (hot shower, hot bath, or heating pad) and massage, while others prefer cold packs (crushed or cubed ice in a plastic bag, wrapped in a towel). Try both and use the method that feels best for 20 minutes several times a day. You may use acetaminophen (Tylenol) or ibuprofen (Motrin, Advil) to control pain, unless another pain medicine was prescribed. [NOTE: If you have chronic liver or kidney disease or ever had a stomach ulcer or GI bleeding, talk with your doctor before using these medicines.] Gentle stretching will help your back heal faster. Perform this simple routine 2-3 times a day untilyour back is feeling better. ?? LOW BACK STRETCH ?? Lie on your back with your knees bent and both feet on the ground. ?? Slowly raise your left knee to your chest as you flatten your lower back against the floor. Hold for 5 seconds. ?? Relax and repeat the exercise with your right knee. ?? Do 10 of these exercises for each leg. ?? Repeat, hugging both knees to your chest at the same time. Be aware of safe lifting methods and do not lift anything over 15 pounds until all the pain is gone. Follow Up with your doctor or this facility if your symptoms do not start to improve after one week. Physical therapy or further tests may be needed. [NOTE: If x-rays were taken, they will be reviewed by a radiologist. You will be notified of any newfindings that may affect your care.] Return Promptly or contact your doctor if any of the following occurs: ?? Pain becomes worse or spreads to your legs ?? Weakness or numbness in one or both legs ?? Loss of bowel or bladder control ?? Numbness in the groin or genital area ?? Unexplained fever over 100.4?F (38.0?C) ?? Burning or pain when passing urine ?? [phone] [place] [address]. All rights reserved. This information is not intended as a substitute for professional medical care. Always follow your healthcare professional's instructions. Back Care Tips These are things you can do to prevent a recurrence of acute back pain and to reduce symptoms from chronic back pain: ?? Maintain a healthy weight. If you are overweight, losing weight will help most types of back pain. ?? Exercise is an important part of recovery from most types of back pain. The back is supported by the muscles behind and in front of the spine. This means both the back muscles and the abdominal muscles must be strengthened to provide better support for your spine. ?? Swimming and brisk walking are good overall exercises to improve your fitness level. ?? Practice safe lifting methods (below). ?? Practice good posture when sitting, standing and walking. Avoid prolonged sitting. This puts morestress on the lower back than standing or walking. ?? Wear quality shoes with sufficient arch support. Foot and ankle alignment can affect back symptoms. Women should avoid high heels. ?? Therapeutic massage can help relieve acute and chronic back pain. ?? During the first two days after an acute injury or flare-up of chronic back pain, apply an ice pack to the painful area for 20 minutes every 2-4 hours. This will reduce swelling and pain. Heat (hot shower, hot bath, or heating pad) works well for muscle spasm. You can start with ice, then switch toheat after two days. Some patients feel best alternating ice and heat treatments. Use the one methodthat feels the best to you. ?? You may use acetaminophen (Tylenol) or ibuprofen (Motrin, Advil) to control pain, unless another medicine was prescribed. [NOTE: If you have chronic liver or kidney disease or ever had a stomach ulcer or GI bleeding, talk with your doctor before using these medicines.] Lumbar Stretch Here is a simple stretching exercise that will help relax muscle spasm and keep your back more limber. If exercise makes your back pain worse, dont do it. ?? Lie on your back with your knees bent and both feet on the ground. ?? Slowly raise your left knee to your chest as you flatten your lower back against the floor. Hold for 5 seconds. ?? Relax and repeat the exercise with your right knee. ?? Do 10 of these exercises for each leg. Safe Lifting Method ?? Dont bend over at the waist to lift an object off the floor. Instead, bend your knees and hips alice squat. ?? Keep your back and head upright. ?? Hold the object close to your body, directly in front of you. ?? Straighten your legs to lift the object. ?? Lower the object to the floor in the reverse fashion. ?? If you must slide something across the floor, push it. Posture Tips SITTING Sit in chairs with straight backs or low-back support. Keep your knees a little higher than your hips. If necessary, use a low stool to prop your feet on, so your feet are resting on a solid surface. When driving, sit up straight. Adjust the seat forward so you are not leaning toward the steering wheel. A small pillow or rolled towel behind your lower back may help if you are driving long distances. STANDING When standing for long periods, shift most of your weight to one leg at a time. Alternate legs everyfew minutes. SLEEPING The best way to sleep is on your side with your knees bent. Put a low pillow under your head to support your neck in a neutral spine position. Avoid thick pillows that bend your neck to one side. Put apillow between your legs to further relax your lower back. If you sleep on your back, put pillows under your knees to support your legs in a slightly flexed position. Use a firm mattress. If your mattress sags, replace it, or use a 1/2-inch plywood board under the mattress to add support. Follow Up with your doctor or as directed by our staff. [NOTE: If X-rays, a CT scan or an MRI scan were taken, they will be reviewed by a radiologist. You will be notified of any new findings that may affect your care.] Return Promptly or contact your doctor if any of the following occur: ?? Pain becomes worse or spreads to your arms or legs ?? Weakness or numbness in one or both arms or legs ?? Loss of bowel or bladder control ?? Numbness in the groin area ?? [phone] [place] [address]. All rights reserved. This information is not intended as a substitute for professional medical care. Always follow your healthcare professional's instructions. Your Goals/Additional instructions: This document has images extracted. Please consider using [employer] for all your patient education needs. Source: [facility] POWERCHART Document Id: [id number] Miscellaneous - Raquel Schmidt M.D. - 09/02/2014 1:22 PM CDT Ambulatory Discharge Medication List [address] [id number] Visit Information Name: DULCE LEI [facility] Number: [id number] Visit Date: 09/02/2014 13:22:55 Attending Provider: RAQUEL ARCHULETA MD Primary Care Provider: PCP, UNASSIGNED - DULCE GUAJARDO has been given the following list of [...] 1 sonya, Topical, two times a day cyclobenzaprine (Flexeril 5 mg oral tablet) 0.5-1 tab(s), Oral, three times a day as needed for Muscle spasm x 7 day(s) muscle relaxant New Routed to [address] [id number] etonogestrel (Implanon 68 mg subcutaneous implant) 1 Each, Subcutaneous, once ibuprofen (ibuprofen 200 mg oral tablet) 4 Tablet(s), Oral, as needed ketorolac (ketorolac 10 mg oral tablet) 1 Tablet(s), Oral, four times a day as needed for Migraine headache (not to exceed 40 mg/day). NOT TO BE USED WITH OTHER NSAIDS Routed to [facility] [address] Stop Taking the Following Medications: Medication list as of 09-02-14 13:22 Attention: If you have any medications at home that are not on this list, DO NOT take them until youcontact your provider for clarification. Give a copy of your medication list to your primary care provider. Update your medication list any time medications or doses are changed and carry your medication list at all times in case of emergency. Electronically Signed By: Signed On: Additional Information: Source: [facility] POWERCHART Document Id: [id number] Miscellaneous - Gi Baltazar, L.P.N. - 09/02/2014 12:46 PM CDT Adult Porter Sample Case Intake/History Adult Porter Sample Case Intake/History Entered On: 09/02/2014 12:49 CDT Performed On: 09/02/2014 12:46 CDT by GI BALTAZAR Intake Chief Complaint : lower back pain Temperature Core : 37.1 DegC(Converted to: 98.8 DegF) Peripheral Pulse Rate : 76 /min Respiratory Rate : 16 /min Heart Rhythm : Regular Systolic Blood Pressure : 100 mmHg Diastolic Blood Pressure : 60 mmHg NIBP Mean : 73 mmHg BP Location : Left upper extremity Blood Pressure Cuff Size : Regular Height : 158 cm(Converted to: 5 ft 2 inch(es), 62 inch(es)) Actual Weight : 86.9 kg(Converted to: 191 lb 9 oz) Weight Source : Standing scale Dosing Weight Clinic : 86.9 kg Clinic BSA : 1.95 Body Mass Index : 34.81 kg/m2 GI BALTAZAR 09/02/2014 12:46 CDT General Info Information Given By : Patient Languages : Bhutanese Is Patient Female and 13-50 no hysterectomy : Yes Status : Patient denies Are you ? : No GI BALTAZAR 09/02/2014 12:46 CDT Subjective Pain Symptoms : Yes GI BALTAZAR 09/02/2014 12:46 CDT Pain Scale Pain Scale Verbal 0-10 : Open GI BALTAZAR 09/02/2014 12:46 CDT Pain Pain Assessment Grid Pain 1 Location : Lower back Intensity : 5 GI BALTAZAR 09/02/2014 12:46 CDT Dependent Habits Tobacco Use/Currently Using : Yes Exposure to Tobacco Smoke : Patient smokes Smoking Status : Current every day smoker GI BALTAZAR 09/02/2014 12:46 CDT Tobacco Use Grid Type : Cigarettes Cigarette Use Packs/Day : 0.5 GI BALTAZAR 09/02/2014 12:46 CDT Alcohol Use : No GI BALTAZAR 09/02/2014 12:46 CDT Caffeine Use Grid Caffeine Use : Current Type : Coffee, Soft drinks Frequency : Occasionally GI BALTAZAR 09/02/2014 12:46 CDT Recreational Drug Use Grid Drug Use : None GI BALTAZAR 09/02/2014 12:46 CDT ID Screen Drug Resistant Organism : No Travel Within Last 21 Days : No Contact with someone with Ebola : No GI BALTAZAR 09/02/2014 12:46 CDT Source: [facility] POWERCHART Document Id: [id number] CDT!54 documented in this encounter Plan of Treatment Not on filedocumented as of this encounter Procedures Procedure Name Priority Date/Time Associated Diagnosis Comme nts URINALYSIS, Routine 09/02/2014 12:59 PM Results for this MIDSTREAM, WITH CDT procedure ar e in CULTURE IF the results INDICATED section. documented in this encounter Results (ABNORMAL) Urinalysis, Midstream, with culture if indicated (09/02/2014 12:59 PM CDT) [facility] Method Time Signature HXUr Color Yellow Colorless POWERCHART Clarity Clear Clear POWERCHART Glucose Negative Negative POWERCHART MGDL HXBILIRUBIN Negative Negative POWERCHART Ketones, QL(U) Negative Negative POWERCHART MGDL Specific >=1.030 POWERCHART Stafford, POCT, U pH, POCT, Urine 5.5 <5.0 POWERCHART Protein, Ur, Negative Negative POWERCHART Dip MGDL Urobilinogen 0.2 0.2 MGDL POWERCHART HXNITRITE Negative Negative POWERCHART HXBLOOD Negative Negative POWERCHART Leukocyte Negative Negative POWERCHART Esterase HXUR WBC. Occ-3 None Seen POWERCHART HPF HXUR RBC. Occ-2 None Seen POWERCHART HPF Squamous Occ-3 (A) None Seen POWERCHART Epithelial HPF HXUR Bacteria, Present (A) None Seen POWERCHART Mucus Present (A) None Seen POWERCHART Specimen (Source) Anatomical Collection Method Collection Time Re ceived Time Location / / Volume Laterality Urine, First 09/02/2014 12:59 Voided PM CDT Raquel Mcwilliams M.D. LAB URINE ORDERABLES Performing Organization Address City/State/ZIP Code Phon e Number POWERCHART documented in this encounter Visit Diagnoses Not on filedocumented in this encounter Additional Health Concerns Assessment Noted Time PHQ-9 Depression Total Score: 1 06/13/2014 1:45 PM ZOOLOGY TECHNICAL OFFICER documented as of this encounter
--- OUTSIDE RECORDS SUMMARY | 2022-03-16 15:07 | XMS_ITS | Encounter Summary ---
:1980 Author Organization [facility] Address [address] [place] [address] Care Team Providers Name Role Phone Unavailable Primary Care Provider Unavailable Encounter Details Date Type Department Care Team Description 06/20/2013 Hospital Encounter HX [facility] Tigist Shay III, M.D. [address] [place] [phone] (Wo rk) Social History Tobacco Use [...] How often do you attend scientologist or More than 4 times per year 11/09/2020 [employer]? Do you belong to any clubs or No 11/09/2020 organizations such as scientologist groups, unions, fraternal [...] - - Height 157 cm (5' 1.81) 06/20/2013 3:57 PM PIPE INSPECTOR Body Mass Index - - documented in this encounter Medications at Time of Discharge Medication Sig Dispensed Refills Start Date End Date ACETAMINOPHEN ORAL Take 500 mg by mouth every 0 0 06/04/2013 06/29/2019 6 (six) hours as needed. documented as of this encounter Plan of Treatment Not on filedocumented as of this encounter Procedures Procedure Name Priority Date/Time Associated Diagnosis Comme nts BHCG (BETA-HUMAN Routine 06/20/2013 4:10 PM Resul ts for this CHORIONIC PIPE INSPECTOR procedure are i n GONADOTROPIN), the results DIEGO, S section. documented in this encounter Results (ABNORMAL) bHCG (Beta-Human Chorionic Gonadotropin), Quantitative (06/20/2013 4:10 PM PIPE INSPECTOR) Analysis [facility] Time Signature Beta-HCG, 5797.0 (H) 0.0 - 5.0 POWERCHART Quantitative, INTUL S Comment: 0 ? 5 IntU/L Negative 5 ? 25 IntU/L Indeterminate > 25 IntU/L Positive Specimen (Source) Anatomical Collection Method Collection Time Re ceived Time Location / / Volume Laterality Blood 06/20/2013 4:10 PM PIPE INSPECTOR Historical Provider LAB BLOOD ADD-ON Performing Organization Address City/State/ZIP Code Phon e Number POWERCHART documented in this encounter Visit Diagnoses Not on filedocumented in this encounter Additional Health Concerns Assessment Noted Time PHQ-9 Depression Total Score: 3 06/13/2013 6:47 AM PIPE INSPECTOR documented as of this encounter
--- OUTSIDE RECORDS SUMMARY | 2022-03-16 15:07 | XMS_ITS | Encounter Summary ---
:1980 Author Organization [facility] Address [address] [place] [address] Care Team Providers Name Role Phone Unavailable Primary Care Provider Unavailable Encounter Details Date Type Department Care Team Description 03/31/2014 Hospital Encounter HX [facility] Zina Vera, LO, C.N.P., D. N.P. [address] [place] [address] (Wo rk) Social History Tobacco [...] More than 4 times per year 11/09/2020 [employer]? Do you belong to any [...] or slept in a [facility] (including now)? Sex Assigned at Date Recorded Not on file documented as of this encounter Last Filed Vital Signs Vital Sign Reading Time Taken Comments Blood Pressure 122/77 03/31/2014 11:56 AM JUKE BOX SERVICER Pulse 84 03/31/2014 11:56 AM JUKE BOX SERVICER Temperature - - Respiratory Rate 16 03/31/2014 11:56 AM JUKE BOX SERVICER Oxygen Saturation - - Inhaled Oxygen Concentration - - Weight - - Height 157 cm (5' 1.81) 03/31/2014 11:56 AM JUKE BOX SERVICER Body Mass Index - - documented in this encounter Medications at Time of Discharge Medication Sig Dispensed Refills Start Date End Date ACETAMINOPHEN ORAL Take 500 mg by mouth every 0 0 06/04/2013 06/29/2019 6 (six) hours as needed. documented as of this encounter Progress Notes Zina Vera D.N.P., C.N.P. - 03/31/2014 11:29 AM CST [id number] CHIEF COMPLAINT/REASON FOR VISIT Lesion to the face. HISTORY OF PRESENT ILLNESS Patient is a 33-year-old female that presents to the clinic today with chief complaint of noticing alesion to the left side of her nose that has been present now for the past couple of days duration. She indicates that she thinks it started out more as a pimple and when squeezing it she made it worseand now indicates it is very sore and more infected. She has no history of MRSA. She does not have any known exposure to any kind of viral or bacterial infection she is aware of. She has not applied anything topically or taken anything to help with the symptoms. She indicates her biggest concern is worsening symptoms. She otherwise indicates that she is feeling otherwise well. PAST MEDICAL/SURGICAL HISTORY Reviewed. Please see chart. FAMILY HISTORY Reviewed. Please see chart. MEDICATIONS Reviewed. Please see chart. ALLERGIES Reviewed. Please see chart. PHYSICAL EXAMINATION GENERAL: Patient is an alert, well-nourished, 33-year-old female that otherwise appears to be in no acute distress. HEAD: Normocephalic, atraumatic with exception to a follicular lesion to the left lateral aspect of the nose that is approximately 1 cm in diameter noted to be firm with borders that are well demarcated. Minimal erythema is noted. No drainage is noted. Scab like surface to this lesion is present and with pressure no drainage is obtained. IMPRESSION/REPORT/PLAN Follicular patient to the left side of the face. PLAN: In discussing the findings at length with the patient, I did opt to toddler caregiver her Bactroban to be applied topically to the affected areas 3 times a day for the next 7 days or until the lesion resolves. She was also given a prescription for Keflex. Leslie JacobsNKurtis/F.N.P/mary ellen Electronically Signed By: ZINA VERA DNP, FNP On: 04/01/2014 02:25 PM Source: [facility] MHSDOLBEYNONRADSYS Document Id: [id number] BOX SERVICER documented in this encounter Miscellaneous Notes Miscellaneous - Monika Branch L.P.N. - 03/31/2014 11:56 AM CST Adult Advertisement Compositor Intake/History Adult Advertisement Compositor Intake/History Entered On: 03/31/2014 12:00 JUKE BOX SERVICER Performed On: 03/31/2014 11:56 JUKE BOX SERVICER by MONIKA BRACNH LPN Intake Chief Complaint : here with c/o cyst like area with a lesion on left side of nose. States very sore.Had popped it and has bloody whitish substance come out but Temperature Core : 37.0 DegC(Converted to: 98.6 DegF) Peripheral Pulse Rate : 84 /min Respiratory Rate : 16 /min Systolic Blood Pressure : 122 mmHg Diastolic Blood Pressure : 77 mmHg NIBP Mean : 92 mmHg BP Location : Left upper extremity Blood Pressure Cuff Size : Regular Height : 157 cm(Converted to: 5 ft 2 inch(es), 62 inch(es)) MONIKA BRANCH LPN - 03/31/2014 11:56 JUKE BOX SERVICER General Info Information Given By : Patient Languages : Kinyarwanda Is Patient Female and 13-50 no hysterectomy : Yes Status : Patient denies Are you ? : No MONIKA BRANCH LPN - 03/31/2014 11:56 JUKE BOX SERVICER Subjective Pain Symptoms : No MONIKA BRANCH LPN - 03/31/2014 11:56 JUKE BOX SERVICER Dependent Habits Tobacco Use/Currently Using : Yes Exposure to Tobacco Smoke : Patient smokes Smoking Status : Current every day smoker MONIKA BRANCH LPN - 03/31/2014 11:56 JUKE BOX SERVICER Tobacco Use Grid Type : Cigarettes Cigarette Use Packs/Day : 0.5 MONIKA BRANCH LPN - 03/31/2014 11:56 JUKE BOX SERVICER Caffeine Use Grid Caffeine Use : Current Type : Soft drinks Frequency : Occasionally MONIKA BRANCH LPN - 03/31/2014 11:56 JUKE BOX SERVICER Recreational Drug Use Grid Drug Use : None MONIKA BRANCH LPN - 03/31/2014 11:56 JUKE BOX SERVICER ID Screen Drug Resistant Organism : No Travel Within Last 21 Days : No MONIKA BRANCH LPN - 03/31/2014 11:56 JUKE BOX SERVICER Source: [facility] Document Id: [id number] JUKE BOX SERVICER!39 BOX SERVICER documented in this encounter Plan of Treatment Not on filedocumented as of this encounter Visit Diagnoses Not on filedocumented in this encounter Additional Health Concerns Assessment Noted Time PHQ-9 Depression Total Score: 3 06/13/2013 6:47 AM JUKE BOX SERVICER documented as of this encounter
--- OUTSIDE RECORDS SUMMARY | 2022-03-16 15:07 | XMS_ITS | Encounter Summary ---
:1980 Author Organization [facility] Address [address] [place] [address] Care Team Providers Name Role Phone Unavailable Primary Care Provider Unavailable Encounter Details Date Type Department Care Team Description 09/05/2013 Hospital Encounter HX [facility] Quique, Carmen murphy P.A.-C., P.A. [address] [place] [address] (Wo rk) Social History Tobacco [...] Sign Reading Time Taken Comments Blood Pressure 108/60 09/05/2013 1:36 PM CDT Pulse 72 09/05/2013 1:36 PM CDT Temperature - - Respiratory Rate 16 09/05/2013 1:36 PM CDT Oxygen Saturation - - Inhaled Oxygen Concentration - - Weight 84.3 kg (185 lb 13.6 oz) 09/05/2013 1:36 PM CDT Height 157 cm (5' 1.81) 09/05/2013 1:36 PM CDT Body Mass Index 34.2 09/05/2013 1:36 PM CDT documented in this encounter Medications at Time of Discharge Medication Sig Dispensed Refills Start Date End Date ACETAMINOPHEN ORAL Take 500 mg by mouth every 0 0 06/04/2013 06/29/2019 6 (six) hours as needed. documented as of this encounter Progress Notes Jolene Mensah - 09/05/2013 1:21 PM CDT [id number] CHIEF COMPLAINT/REASON FOR VISIT This is a 33-year-old female seen today 16 weeks , complaining of ongoing sinus pain and pressure. She was seen here in the beginning of July and treated with amoxicillin at that time. She states that she got a little bit of relief but it really has continued since then. She has a lot of nasal congestion, thick drainage draining down the back of her throat. She feels a lot of pain and pressure in her face. She has been trying Neti pots daily and nothing seems to be helping. Her ears are notbothering her. She had a sore throat last week but that is improved she has not been coughing. No fevers or chills. MEDICATIONS Reviewed in the EMR. PAST MEDICAL/SURGICAL HISTORY Reviewed in the EMR. VITAL SIGNS Temperature 37, heart rate 72, respirations 16, blood pressure is 108/60, height 157 cm, weight 84.2kg. PHYSICAL EXAMINATION GENERAL: She is alert, interactive, and cooperative. Appears to be well- nourished, well-hydrated, inno acute distress. HEENT: Head is normocephalic, atraumatic. TMs are clear with normal landmarks, normal light reflex. Canals are clear. Sclerae and conjunctivae are clear. Nares are congested. Maxillary sinuses are verytender to palpation. Oral mucosa is pink and moist. Posterior pharynx is nonerythematous. Tonsils are not enlarged. No exudate. NECK: Supple. No lymphadenopathy. LUNGS: Clear to auscultation bilaterally. No wheezes. HEART: Regular rate and rhythm. IMPRESSION/REPORT/PLAN Sinusitis. PLAN: She states that she has had an intolerance or gastrointestinal issues with Augmentin in the past, but states that she was probably in high school when she last took it. She is up to trying it again. Given the fact that she is , we really cannot use doxycycline. She states that she has not had much luck with Zithromax in the past. She is willing to try the Augmentin. She has an appointment with OB later today. She would like to ask them if she could take a probiotic or something along with it to help her tolerate it, so I did prescribe Augmentin 875 mg tabs 1 tab by mouth twice a day for 10 days. She should return if she is not improving, otherwise call or return for any other questions or concerns. Jolene Mensah P.A.-C./mary ellen Electronically Signed By: JOLENE MENSAH On: 09/05/2013 05:14 PM Source: [facility] MHSDOLBEYNONRADSYS Document Id: [id number] documented in this encounter Miscellaneous Notes Miscellaneous - Jolene Mensah - 09/05/2013 2:13 PM CDT Ambulatory Patient Summary [address] [phone] Visit Information Name: DULCE MENSAH [facility] Number: [id number] Current Date: 09/05/2013 14:13:53 Physicians Attending Provider: JOLENE MENSAH Primary Care Provider: [facility] DIST[facility]BUT[facility] SPEC DULCE MENSAH has been given the following [...] a day x 10 day(s) New Routed to [address] [address] diphenhydrAMINE (Benadryl) 50 mg, Oral, once a day Stop Taking the Following Medications: ondansetron (ondansetron 4 mg oral tablet, disintegrating) Medication list as of 09-05-13 14:13 Attention: If you have any medications at home that are not on this list, DO NOT take them until youcontact your provider for clarification. Give a copy of your medication list to your primary care provider. Update your medication list any time medications or doses are changed and carry your medication list at all times in case of emergency. Electronically Signed By: JOLENE MENSAH Signed On:05-SEP-2013 14:13:47 Your Allergies & Intolerances Substance Reaction Symptoms [...] appointment detail needed. Your Goals/Additional instructions: Source: [facility] POWERCHART Document Id: [id number] Miscellaneous - Jolene Mensah - 09/05/2013 2:13 PM CDT Ambulatory Discharge Medication List [facility] [address] [place], [place] [id number] Visit Information Name: DULCE MENSAH [facility] Number: [id number] Visit Date: 09/05/2013 14:13:52 Attending Provider: JOLENE MENSAH Primary Care Provider: ANDREW VERA DNP, DISTRIBUTION SPEC DULCE MENSAH has been given the following [...] a day x 10 day(s) New Routed to [address] [address] diphenhydrAMINE (Benadryl) 50 mg, Oral, once a day Stop Taking the Following Medications: ondansetron (ondansetron 4 mg oral tablet, disintegrating) Medication list as of 09-05-13 14:13 Attention: If you have any medications at home that are not on this list, DO NOT take them until youcontact your provider for clarification. Give a copy of your medication list to your primary care provider. Update your medication list any time medications or doses are changed and carry your medication list at all times in case of emergency. Electronically Signed By: JOLENE MENSAH Signed On:05-SEP-2013 14:13:47 Additional Information: Source: [facility] POWERCHART Document Id: [id number] Miscellaneous - Gi Baltazar L.P.N. - 09/05/2013 1:36 PM CDT Adult Private Wealth Advisor Intake/History Adult Private Wealth Advisor Intake/History Entered On: 09/05/2013 13:39 CDT Performed On: 09/05/2013 13:36 CDT by GI BALTAZAR Intake Chief Complaint : sinus problem ongoing for a while. has tried otc no help is 16 weeks can she use the triamcinolone for her rash from the sun Temperature Core : 37.0 DegC(Converted to: 98.6 DegF) Peripheral Pulse Rate : 72 /min Respiratory Rate : 16 /min Heart Rhythm : Regular Systolic Blood Pressure : 108 mmHg Diastolic Blood Pressure : 60 mmHg NIBP Mean : 76 mmHg BP Location : Right upper extremity Blood Pressure Cuff Size : Large Height : 157 cm(Converted to: 5 ft 2 inch(es), 62 inch(es)) Actual Weight : 84.3 kg(Converted to: 185 lb 14 oz) Weight Source : Standing scale Dosing Weight Clinic : 84.3 kg Clinic BSA : 1.92 Body Mass Index : 34.2 kg/m2 GI BALTAZAR - 09/05/2013 13:36 CDT General Info Information Given By : Patient Languages : Hungarian GI BALTAZAR - 09/05/2013 13:36 CDT Subjective Pain Symptoms : No GI BALTAZAR 09/05/2013 13:36 CDT Dependent Habits Tobacco Use/Currently Using : Yes Tobacco Use/Advised to Quit : Yes Exposure to Tobacco Smoke : Patient smokes Smoking Status : Current every day smoker GI BALTAZAR 09/05/2013 13:36 CDT Tobacco Use Grid Type : Cigarettes Cigarette Use Packs/Day : 0.5 GI BALTAZAR 09/05/2013 13:36 CDT Caffeine Use Grid Caffeine Use : Current Type : Soft drinks Frequency : Occasionally GI BALTAZAR 09/05/2013 13:36 CDT Recreational Drug Use Grid Drug Use : None GI BALTAZAR - 09/05/2013 13:36 CDT Source: [facility] [employer] Document Id: [id number] CDT!40 documented in this encounter Plan of Treatment Not on filedocumented as of this encounter Visit Diagnoses Not on filedocumented in this encounter Additional Health Concerns Assessment Noted Time PHQ-9 Depression Total Score: 3 06/13/2013 6:47 AM DROP BOARD WORKER documented as of this encounter
--- OUTSIDE RECORDS SUMMARY | 2022-03-16 15:07 | XMS_ITS | Encounter Summary ---
:1980 Author Organization [facility] Address [address] [place] [address] Care Team Providers Name Role Phone Unavailable Primary Care Provider Unavailable Encounter Details Date Type Department Care Team Description 07/18/2014 Hospital Encounter HX [facility] Vineet shetty M.D. [address] [place] [phone] (Wo rk) Social History Tobacco Use [...] Sign Reading Time Taken Comments Blood Pressure 107/69 07/18/2014 1:01 PM CDT Pulse 100 07/18/2014 1:01 PM CDT Temperature - - Respiratory Rate 16 07/18/2014 1:01 PM CDT Oxygen Saturation - - Inhaled Oxygen Concentration - - Weight 87.3 kg (192 lb 7.4 oz) 07/18/2014 1:01 PM CDT Height 158 cm (5' 2.21) 07/18/2014 1:01 PM CDT Body Mass Index 34.97 07/18/2014 1:01 PM CDT documented in this encounter Medications at Time of Discharge Medication Sig Dispensed Refills Start Date End Date ACETAMINOPHEN ORAL Take 500 mg by 0 06/04/2013 mouth every 6 (six) hours as needed. ibuprofen Take 4 tablets by 0 04/22/2014 020 (for_ADVIL,MOTRIN) 200 mg mouth as needed. tablet documented as of this encounter Progress Notes Vineet Schmidt M.D. - 07/18/2014 7:19 AM CDT Clinic Full Note CHIEF COMPLAINT/REASON FOR VISIT Results HISTORY OF PRESENT ILLNESS Carter presents today for follow up of her colposcopy. She had no problems after the procedure. Her biopsy results showed LISSETT 1. Endocervical currettage showed benign tissue. Patient has had persistent LISSETT 1 for a couple of years now. She is tired of dealing with it and would like to speak with a aerial crop duster about having either cryotherapy or LEEP completed. She has had a cone biopsy in the past. Shestates that she does not plan on having any further children. Recent pap history: 2011- Negative 10/2011- LSIL on pap 12/2011- LISSETT 1 on colposcopy 08/2012- ASCUS and high risk HPV on pap 05/2014- ASCUS and high rish HPV on pap 06/2014- LISSETT 1 on colposcopy MEDICATIONS benzoyl peroxide 5% topical gel, 1 sonya, Topical, 2xDay, 6 refills Cheratussin AC 10 mg-100 mg/5 mL oral syrup, 10 mL, cough, PO, q4hr, PRN, 0 refills ibuprofen 200 mg oral tablet, 800 mg, 4 tab(s), PO, PRN Implanon 68 mg subcutaneous implant, 68 mg, 1 each, Subcut., Once ketorolac 10 mg oral tablet, 10 mg, 1 tab(s), (not to exceed 40 mg/day). NOT TO BE USED WITH OTHER NSAIDS, PO, 4xDay, PRN, 0 refills nystatin 100,000 units/mL oral suspension, 500,000 units, 5 mL, retain in mouth as long as possiblebefore swallowing, PO, 4xDay, PRN, 0 refills Tylenol, 500 [...] as child (1980). SOCIAL HISTORY Date Time: 07/18/2014 13:01 Tobacco: Smoking Status: Current every day smoker Exposure: Patient smokes Alcohol: Use: No Recreational Drugs: Use: None Type: No Results Found FAMILY HISTORY Mother:Positive: Diabetes mellitus; Liver Father:Positive: MEDRANO - Headache; Hypertension Sister:Positive: Asthma VITAL SIGNS T: 36.6 ??C (Core) HR: 100 RR: 16 BP: 107 / 69 SpO2: 97% HT: 158 cm WT: 87.3 kg BMI: 34.97 DIAGNOSTIC RESULTS A. Uterus, cervix, 8:00 and 3:00, biopsies: Cervical intraepithelial lesion, grade 1 (CIN1, low-grade squamous intraepithelial lesion). B. Uterus, cervix, curettings: Scant benign endocervical epithelium and mucus. Seen in consultation with Dr. Basil Noriega. Participated in interpretation: Brandyn Linares M.D. [phone] 07/14/2014 17:20 Interpreted by: Yanira Story M.D. [phone] Report electronically signed by Yanira Story M.D. Transcribed by: [email or web address] 07/14/2014 16:26:13 IMPRESSION/REPORT/PLAN 1. 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 We will refer her to [facility] in [place] for consideration of definitive management. Ordered: OV FU/Post-Op N/C Charge [id number] Electronically Signed By: VINEET ARCHULETA MD On: 07/19/2014 07:22 AM Source: [facility] POWERCHART Document Id: [id number] documented in this encounter Miscellaneous Notes Miscellaneous - Vineet Schmidt M.D. - 07/19/2014 7:23 AM CDT referral Document Contains Addenda Addendum by VINEET ARCHULETA MD on 22 July 2014 15:20:52 CDT From: VINEET ARCHULETA MD To: AISHWARYA CHEN; Sent: 07/22/2014 15:20:52 CDT Subject: RE: referral Thanks. Addendum by AISHWARYA CHEN on 21 July 2014 15:42:32 CDT From: AISHWARYA CHEN To: VINEET ARCHULETA MD; Sent: 07/21/2014 15:42:32 CDT Subject: RE: referral On , I scheduled appt. for patient on August 15 at 10:40. Patient is aware of date, time, and place. Addendum by AISHWARYA CHEN on 21 July 2014 15:34:32 CDT From: AISHWARYA CHEN To: VINEET ARCHULETA MD; Sent: 07/21/2014 15:34:32 CDT Subject: RE: referral Request faxed to [place]. Staff there will contact patient with appt. info. From: VINEET ARCHULETA MD To: AISHWARYA CHEN; Sent: 07/19/2014 07:23:53 CDT Subject: referral Referral Request Date: 07/19/2014 Provider: Vineet Archuleta Where Referral is to be made: [facility] [place] Type of Referral/Department: Gynecology- Dr. Velasquez Specific Clinical Question: Persistent LISSETT 1 Pertinent History: Consider definitive management- Please fax my last note as it outlines her pap history Best Appointment Days to Avoid: Best Time of day: Date/Time of appointment made: Sign off: Source: [facility] POWERCHART Document Id: [id number] Electronically signed by Lesley, [facility] Livestock Nutrition Territory Manager [id number] at 09/11/2016 2:47 PM CDT Miscellaneous - Vineet Schmidt M.D. - 07/18/2014 1:23 PM CDT Ambulatory Patient Summary [address] [place] [id number] Visit Information Name: RODRICKCARTER [facility] Number: [id number] Current Date: 07/18/2014 13:23:25 Physicians Attending Provider: VINEET ARCHULETA MD Primary Care Provider: ANDREW VERA DNP, MANAGED CARE PROVIDER CARTER LEI has been given the following [...] every 4 hoursas needed for cough cough etonogestrel (Implanon 68 mg subcutaneous implant) 1 Each, Subcutaneous, once ibuprofen (ibuprofen 200 mg oral tablet) 4 Tablet(s), Oral, as needed ketorolac (ketorolac 10 mg oral tablet) 1 Tablet(s), Oral, four times a day as needed for Migraine headache (not to exceed 40 mg/day). NOT TO BE USED WITH OTHER NSAIDS nystatin (nystatin 100,000 units/mL oral suspension) 5 Milliliter, Oral, four times a day as needed for Mouth sore pain x 7 day(s) retain in mouth as long as possible before swallowing Stop Taking the Following Medications: Medication list as of 07-18-14 13:23 Attention: If you have any medications at [...] Electronically Signed By: VINEET ARCHULETA MD Signed On:18-JUL-2014 13:23:16 Your Allergies & Intolerances Substance Reaction Symptoms [...] appointment detail needed. Your Goals/Additional instructions: Source: [facility] POWERCHART Document Id: [id number] Miscellaneous - Vineet Schmidt M.D. - 07/18/2014 1:23 PM CDT Ambulatory Discharge Medication List [address] [phone] Visit Information Name: CARTER LEI [facility] Number: [id number] Visit Date: 07/18/2014 13:23:23 Attending Provider: VINEET ARCHULETA MD Primary Care Provider: ANDREW VERA DNP, MANAGED CARE PROVIDER CARTER LEI has been given the following [...] every 4 hoursas needed for cough cough etonogestrel (Implanon 68 mg subcutaneous implant) 1 Each, Subcutaneous, once ibuprofen (ibuprofen 200 mg oral tablet) 4 Tablet(s), Oral, as needed ketorolac (ketorolac 10 mg oral tablet) 1 Tablet(s), Oral, four times a day as needed for Migraine headache (not to exceed 40 mg/day). NOT TO BE USED WITH OTHER NSAIDS nystatin (nystatin 100,000 units/mL oral suspension) 5 Milliliter, Oral, four times a day as needed for Mouth sore pain x 7 day(s) retain in mouth as long as possible before swallowing Stop Taking the Following Medications: Medication list as of 07-18-14 13:23 Attention: If you have any medications at [...] Electronically Signed By: VINEET ARCHULETA MD Signed On:18-JUL-2014 13:23:16 Additional Information: Source: [facility] POWERCHART Document Id: [id number] Miscellaneous - William Lin, L.P.N. - 07/18/2014 1:01 PM CDT Adult Insurance Account Representative Intake/History Document Has Been Updated Adult Insurance Account Representative Intake/History Entered On: 07/18/2014 13:05 CDT Performed On: 07/18/2014 13:01 CDT by WILLIAM LIN LPN Intake Chief Complaint : Results Temperature Core : 36.6 DegC(Converted to: 97.9 DegF) Peripheral Pulse Rate : 100 /min Respiratory Rate : 16 /min Heart Rhythm : Regular Systolic Blood Pressure : 107 mmHg Diastolic Blood Pressure : 69 mmHg NIBP Mean : 82 mmHg BP Location : Left upper extremity Blood Pressure Cuff Size : Large SpO2 : 97 % Oxygen Therapy : Room air Height : 158 cm(Converted to: 5 ft 2 inch(es), 62 inch(es)) Actual Weight : 87.3 kg(Converted to: 192 lb 7 oz) Weight Source : Standing scale Dosing Weight Clinic : 87.3 kg Clinic BSA : 1.96 Body Mass Index : 34.97 kg/m2 WILLIAM LIN [facility] - 07/18/2014 13:01 CDT General Info Information Given By : Patient Preferred Communication Mode : Verbal Languages : Swedish Is Patient Female and 13-50 no hysterectomy : Yes Status : Patient denies Are you ? : No WILLIAM LIN [facility] - 07/18/2014 13:01 CDT Subjective Pain Symptoms : No WILLIAM LIN [facility] 07/18/2014 13:01 CDT Dependent Habits Tobacco Use/Currently Using : Yes Tobacco Use/Advised to Quit : Yes Exposure to Tobacco Smoke : Patient smokes Smoking Status : Current every day smoker WILLIAM LIN [facility] 07/18/2014 13:01 CDT Tobacco Use Grid Type : Cigarettes Cigarette Use Packs/Day : 0.5 WILLIAM LIN [facility] 07/18/2014 13:01 CDT Alcohol Use : No WILLIAM LIN [facility] 07/18/2014 13:01 CDT Caffeine Use Grid Caffeine Use : Current Type : Coffee, Soft drinks Frequency : Occasionally WILLIAM LIN [facility] 07/18/2014 13:01 CDT Recreational Drug Use Grid Drug Use : None WILLIAM LIN [facility] 07/18/2014 13:01 CDT Allergy (As Of: 07/18/2014 13:05:25 CDT) Allergies (Active) Augmentin XR Estimated Onset [...] - Cipro; vomiting ; Created By: Contributor_system, [facility]_HX_ALRG_SYS; Reaction Status: Active ; Category: Drug ; Substance: quinolone antibiotics ;Type: Unknown ; Updated By: Contributor_system, [facility]_HX_ALRG_SYS; Reviewed Date: 07/18/2014 13:01 CDT [...] Ebola : No WILLIAM LIN LPN - 07/18/2014 13:01 CDT [facility] Document Id: [id number] CDT!51 documented in this encounter Plan of Treatment Not on filedocumented as of this encounter Visit Diagnoses Not on filedocumented in this encounter Additional Health Concerns Assessment Noted Time PHQ-9 Depression Total Score: 1 06/13/2014 1:45 PM STRUCTURAL STEEL WORKER documented as of this encounter
--- OUTSIDE RECORDS SUMMARY | 2022-03-16 15:07 | XMS_ITS | Encounter Summary ---
:1980 Author Organization [facility] Address [address] [place] [address] Care Team Providers Name Role Phone Unavailable Primary Care Provider Unavailable Encounter Details Date Type Department Care Team Description 06/13/2013 Hospital Encounter HX [facility] ME Andrew Vera, LO, C.N.P., D. N.P. 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 Do you belong to any clubs [...] Sign Reading Time Taken Comments Blood Pressure 106/66 06/13/2013 8:53 AM DIGITAL PRINTER OPERATOR Pulse 88 06/13/2013 8:53 AM DIGITAL PRINTER OPERATOR Temperature - - Respiratory Rate 16 06/13/2013 8:53 AM DIGITAL PRINTER OPERATOR Oxygen Saturation - - Inhaled Oxygen Concentration - - Weight 85.1 kg (187 lb 9.8 oz) 06/13/2013 8:53 AM DIGITAL PRINTER OPERATOR Height 157 cm (5' 1.81) 06/13/2013 8:53 AM DIGITAL PRINTER OPERATOR Body Mass Index 34.52 06/13/2013 8:53 AM DIGITAL PRINTER OPERATOR documented in this encounter Medications at Time of Discharge Medication Sig Dispensed Refills Start Date End Date ACETAMINOPHEN ORAL Take 500 mg by mouth every 0 0 06/04/2013 06/29/2019 6 (six) hours as needed. documented as of this encounter Progress Notes Andrew Vera D.N.P., C.N.P. - 06/13/2013 8:50 AM CST [id number] CHIEF COMPLAINT/REASON FOR VISIT 1. Left ankle pain. 2. . HISTORY OF PRESENT ILLNESS Patient is a 33-year-old female who presents to the clinic today with chief complaint of left ankle pain in which she indicates is affecting her left medial malleolar area. She indicates that she has no known injury and wanted to come in today in order to ensure that there is nothing wrong. She also indicates that she recently had a D and C, which was completed in [place] and which this was completed at the beginning of March. She indicates that 2 days after her D and C she did have some bleeding and indicates that she has been sexually active since, and indicates that she did take an at homepregnancy test and which did come back positive. She indicates that she did [place], in which she had recommended that she undergo blood work for an updated hCG on a weekly basis at this time. She otherwise indicates she is not having any other further concerns or issues. Past medical, surgical, family history reviewed. Please see chart. Medications and allergies reviewed. Please see chart. PHYSICAL EXAMINATION GENERAL: Patient is alert, well-nourished, 33-year-old who appears to be in no acute distress. HEAD: Normocephalic, atraumatic. EXTREMITIES: She was noted to have full flexion and extension and lateral rotation in the left lowerextremity with no difficulty. She does have some minimal discomfort with lateral rotation going externally of the left foot and with pain palpated just below the medial malleolar area. LABS Cholesterols were due in which total cholesterol is 188, triglycerides 66, HDL 68, LDL 107, and a beta hCG of 351.4. IMPRESSION/REPORT/PLAN 1. Left ankle pain. 2. . PLAN: 1. Ankle pain: Presently at this time I reassured the patient most likely she may have just strainedher ankle and indicated that most likely in the next couple of days this will completely resolve. Follow up only as needed. Patient felt comfortable with this treatment plan. 2. : Presently at this time information regarding her hCG levels was provided to the patient, in which per her request we will fax this to her plastic products sales representative. Advised to follow up with her plastic products sales representative as required but we will continue performing weekly hCGs per her request. Patient stated understanding of the plan. She felt very comfortable with the treatment plan. She otherwise denied having any further questions or concerns. Patient departed clinic in no acute distress. Ready to learn. No apparent learning barriers were identified. Learning preferences include listening. Explained diagnosis and treatment plan. Patient expressed understanding of the content. Andrew Vrea, Tristin.N.P./F.N.P/mary ellen Electronically Signed By: ANDREW VERA DNP, FNP On: 06/25/2013 01:16 PM Source: [facility] MHSDOLBEYNONRADSYS Document Id: [id number] documented in this encounter Miscellaneous Notes Miscellaneous - Andrew Vera D.N.P., C.N.P. - 06/14/2013 3:39 PM DIGITAL PRINTER OPERATOR Normal Results Letter 14 June 2013 CARTER MENSAH [address] [facility] [id number] Dear CARTER MENSAH, I am pleased to report that your results from the following diagnostic test(s) are normal. Please follow up with us as we discussed during your visit or sooner if you have any concerns. If you have questions or concerns, please do not hesitate to call our office. Result Name Current Result Previous Result Normal Range Beta hCG Qnt (IntU/L) (H) 351.4 06/13/2013 0.9 06/04/2013 0.0 - 5.0 Cholesterol (mg/dL) 188 06/13/2013 0 - 200 Trig (mg/dL) 66 06/13/2013 9 - 150 HDL (mg/dL) (H) 68 06/13/2013 35 - 60 LDL Calculated (mg/dL) 107 06/13/2013 100 - 129 Chol/HDL Ratio 3 06/13/2013 Sincerely, ANDREW VERA [address] [place] [address] Electronic Signature Electronically Signed By: ANDREW VERA DNP, LORETO On: 14 June 2013 This document has images extracted. Source: [facility] POWERCHART Document Id: [id number] Electronically signed by Conversion, [facility] Roof Technician [id number] at 09/12/2016 9:49 PM CDT Miscellaneous - Andrew Vera D.N.P., C.N.P. - 06/13/2013 2:50 PM DIGITAL PRINTER OPERATOR Normal Results Letter 13 June 2013 CARTER MENSAH [address] [facility] [id number] Dear CARTER MENSAH, Please follow up with us as we discussed during your visit or sooner if you have any concerns. If you have questions or concerns, please do not hesitate to call our office. Result Name Current Result Previous Result Normal Range Beta hCG Qnt (IntU/L) (H) 351.4 06/13/2013 0.9 06/04/2013 0.0 - 5.0 Cholesterol (mg/dL) 188 06/13/2013 0 - 200 Trig (mg/dL) 66 06/13/2013 9 - 150 HDL (mg/dL) (H) 68 06/13/2013 35 - 60 LDL Calculated (mg/dL) 107 06/13/2013 100 - 129 Chol/HDL Ratio 3 06/13/2013 Sincerely, ANDREW VERA [address] [place] [address] Electronic Signature Electronically Signed By: ANDREW VERA DNP, FNP On: 13 June 2013 This document has images extracted. Source: [facility] POWERCHART Document Id: [id number] Electronically signed by Conversion, [facility] Roof Technician [id number] at 09/12/2016 9:49 PM CDT Miscellaneous - William Mishra L.P.N. - 06/13/2013 8:53 AM CST Adult Medicaid Specialist Intake/History Adult Medicaid Specialist Intake/History Entered On: 06/13/2013 8:57 DIGITAL PRINTER OPERATOR Performed On: 06/13/2013 8:53 DIGITAL PRINTER OPERATOR by WILLIAM MISHRA LPN Intake Chief Complaint : left ankle pain Temperature Core : 36.4 DegC(Converted to: 97.5 DegF) (LOW) Peripheral Pulse Rate : 88 /min Respiratory Rate : 16 /min Heart Rhythm : Regular Systolic Blood Pressure : 106 mmHg Diastolic Blood Pressure : 66 mmHg NIBP Mean : 79 mmHg BP Location : Right upper extremity Blood Pressure Cuff Size : Regular SpO2 : 99 % Oxygen Therapy : Room air Height : 157.0 cm(Converted to: 5 ft 2 inch(es), 62 inch(es)) Actual Weight : 85.1 kg(Converted to: 187 lb 10 oz) Weight Source : Standing scale Dosing Weight Clinic : 85.1 kg Clinic BSA : 1.93 Body Mass Index : 34.52 kg/m2 WILLIAM MISHRA LPN - 06/13/2013 8:53 DIGITAL PRINTER OPERATOR General Info Information Given By : Patient Languages : Romanian WILLIAM MISHRA LPN - 06/13/2013 8:53 DIGITAL PRINTER OPERATOR Subjective Pain Symptoms : Yes WILLIAM MISHRA LPN - 06/13/2013 8:53 DIGITAL PRINTER OPERATOR Pain Pain Assessment Grid Pain 1 Location : Ankle Laterality : Left Intensity : 5 Time Pattern : Constant Onset : Sudden Quality : Throbbing Pain Radiation : No Aggravating Factors : None Alleviating Factors : None Associated Symptoms : None DELIA WILLIAM Hannon LPN - 06/13/2013 8:53 DIGITAL PRINTER OPERATOR Dependent Habits Tobacco Use/Currently Using : Yes Tobacco Use/Advised to Quit : Yes Exposure to Tobacco Smoke : Patient smokes Smoking Status : Current some day smoker VALDESROBYN Hannon LPN - 06/13/2013 8:53 DIGITAL PRINTER OPERATOR Tobacco Use Grid Type : Cigarettes Cigarette Use Packs/Day : 0.5 DELIA WILLIAM Hannon LPN - 06/13/2013 8:53 DIGITAL PRINTER OPERATOR Alcohol Use : No DELIA WILLIAM Hannon LPN - 06/13/2013 8:53 DIGITAL PRINTER OPERATOR Caffeine Use Grid Caffeine Use : Current Type : Soft drinks Frequency : Occasionally DELIAWILLIAM LPN - 06/13/2013 8:53 DIGITAL PRINTER OPERATOR Recreational Drug Use Grid Drug Use : None DELIAWILLIAM LPN - 06/13/2013 8:53 DIGITAL PRINTER OPERATOR Source: [employer] Document Id: [id number] DIGITAL PRINTER OPERATOR!56 TAL PRINTER OPERATOR Miscellaneous - Guido Merchant LLashawnP.NLashawn - 06/13/2013 6:47 AM CST PHQ-9 PHQ-9 Entered On: 06/14/2013 6:48 DIGITAL PRINTER OPERATOR Performed On: 06/13/2013 6:47 DIGITAL PRINTER OPERATOR by GUIDO MERCHANT LPN PHQ-9 Little interest or pleasure in doing things : Several days Feeling down, depressed, or hopeless : Not at all Trouble falling or staying asleep, or sleeping too much : Several days Feeling tired or having little energy : [...] Not at all PHQ-9 Calculated Score : 3 Problems make work, home, or dealing with others : Somewhat difficult GUIDO MERCHANT LPN - 06/14/2013 6:47 DIGITAL PRINTER OPERATOR Source: [employer] Document Id: [id number] DIGITAL PRINTER OPERATOR!13 TAL PRINTER OPERATOR documented in this encounter Plan of Treatment Not on filedocumented as of this encounter Procedures Procedure Name Priority Date/Time Associated Diagnosis Comme nts BHCG (BETA-HUMAN Routine 06/13/2013 9:15 AM Resul ts for this CHORIONIC DIGITAL PRINTER OPERATOR procedure are i n GONADOTROPIN), the results DIEGO, S section. LIPID PANEL, S Routine 06/13/2013 9:15 AM Results for this DIGITAL PRINTER OPERATOR procedure are i n the results section. documented in this encounter Results (ABNORMAL) bHCG (Beta-Human Chorionic Gonadotropin), Quantitative (06/13/2013 9:15 AM DIGITAL PRINTER OPERATOR) Analysis Performed At Patho logist Time Signature Beta-HCG, 351.4 (H) 0.0 - 5.0 POWERCHART Quantitative, INTUL S Comment: 0 ? 5 IntU/L Negative 5 ? 25 IntU/L Indeterminate > 25 IntU/L Positive Specimen (Source) Anatomical Collection Method Collection Time Re ceived Time Location / / Volume Laterality Blood 06/13/2013 9:15 AM DIGITAL PRINTER OPERATOR Andrew Vera APRN, C.N.P., D.N.P. LAB BLOOD ADD- ON Performing Organization Address City/State/ZIP Code Phon e Number POWERCHART (ABNORMAL) Lipid Panel (06/13/2013 9:15 AM DIGITAL PRINTER OPERATOR) P athologist Signature Cholesterol, 188 0 - 200 POWERCHART Total MGDL Comment: <200 mg/dL Desirable 200-239 mg/dL Borderline High >239 mg/dL High HX HDL 68 (H) 35 - 60 MGDL POWERCHART Comment: > 60 mg/dL Desirable 40 ? 60 mg/dL Low Risk <40 mg/dL Undesirable Triglycerides 66 9 - 150 MGDL POWERCHART Comment: <150 mg/dL Desirable 150-199 mg/dL Borderline High 200-499 mg/dL High > 499 Very High Calculated LDL 107 100 - 129 MGDL POWERCHART Total Cholesterol/HDL Ratio 3 PO WERCHART Specimen (Source) Anatomical Collection Method Collection Time Re ceived Time Location / / Volume Laterality Blood 06/13/2013 9:15 AM DIGITAL PRINTER OPERATOR Andrew Vera APRN, C.N.P., D.N.P. LAB BLOOD ADD- ON Performing Organization Address City/State/ZIP Code Phon e Number POWERCHART documented in this encounter Visit Diagnoses Not on filedocumented in this encounter Additional Health Concerns Assessment Noted Time PHQ-9 Depression Total Score: 3 06/13/2013 6:47 AM DIGITAL PRINTER OPERATOR documented as of this encounter
--- OUTSIDE RECORDS SUMMARY | 2022-03-16 15:07 | XMS_ITS | Encounter Summary ---
:1980 Author Organization [facility] Address [address] [place] [address] Care Team Providers Name Role Phone Unavailable Primary Care Provider Unavailable Encounter Details Date Type Department Care Team Description 04/22/[address] [facility] Nadia Barron M.D. [address] [place] [phone] (Wo rk) Social History Tobacco Use [...] Sign Reading Time Taken Comments Blood Pressure 118/92 04/22/2014 1:52 PM DIRECT[employer] Pulse 60 04/22/2014 1:52 PM [employer] Temperature - - Respiratory Rate 18 04/22/2014 1:52 PM DIRECTOR [employer] Oxygen Saturation - - Inhaled Oxygen Concentration - - Weight 86.3 kg (190 lb 4.1 oz) 04/22/2014 1:52 PM DIRECT[employer] Height 158 cm (5' 2.21) 04/22/2014 1:52 PM DIRECT[employer] Body Mass Index 34.57 04/22/2014 1:52 PM DIRECT[employer] documented in this encounter Discharge Summaries Vj Archibald R.N. - 04/22/2014 2:57 PM CST ED Discharge Instructions [address] [address] Name: CARTER LEI Date of : 1980 12:00 AM Visit Date: 04/22/2014 1:44 PM [facility] Number: [id number] Address: [address] [place] [phone] Primary Care Provider: ANDREW VERA DNP, CIGAR WRAPPER IMPORTANT: [facility] in [place] would like to thank you for allowing us to assist you with your healthcare needs. The following includes patient education materials and informationregarding your injury/illness. Diagnosis: Migraine Headache (MEDRANO) NOS Follow-Up Instructions: With: Address: When: ANDREW VERA [address] [place] [phone] Business (1) In 7 days 04/29/2014 Comments: With: Address: When: Discusss the acute management and prophylaxix of migraine with Provider. Within As Needed Comments: Your Upcoming Appointments: Date Time Location Provider No Appointments found Patient Education Materials: [id number] MIGRAINE HEADACHE Migraine headaches are related to [...] face Difficulty with speech or vision ?? [phone], [place] [address]. All rights reserved. This information is not intended as a substitute for professional medical care. Always follow your healthcare professional's instructions. ED Tests and Procedures: Order Status Discharge Prescriptions & Home Medications: Medication/Strength Dose Route Frequency Indications/Special Instructions/Comments/Notes SUMAtriptan (Imitrex 50 mg oral tablet) 50 mg Oral as directed as needed for Migraine headache Take 1 tablet at onset of headache. Repeat after two hours if needed. etonogestrel (Implanon 68 mg subcutaneous implant) 68 mg Subcutaneous once ibuprofen (ibuprofen 200 mg oral tablet) 800 mg Oral as needed benzoyl peroxide topical (benzoyl peroxide 5% topical gel) 1 sonya Topical two times a day *nicotine (nicotine 21 mg-14 mg-7 mg transdermal film, extended release) See Instructions Smoking Cessation Use nicotine 21 mg patch daily for 14 days, 14 mg patch daily for 14 days, then 7 mg patch daily. (remove patch every evening prior to bedtime). acetaminophen (Tylenol) 500 mg Oral every 6 hours as needed for Pain diphenhydrAMINE (Benadryl) 50 mg Oral once a day * You have let us know that [...] a ride home with a responsible republican. IRODRICK GINA MARIE , or responsible republican have received this information and my questions have been answered. I have discussed any challenges I see with this plan with the nurse or physician. Patient Signature or Responsible Democrat/Relationship Date Time Provider Signature Date Time Medication [...] nurse or physician. Patient Signature or Responsible Democrat/Relationship Date Time Provider Signature Date Time Source: [employer] Document Id: [id number] [employer] Vj Archibald R.N. - 04/22/2014 2:57 PM CST ED Depart Summary [facility] Emergency Department Clinical Discharge Summary PERSON INFORMATION Name CARTER LEI Age 33 Years 1980 12:00 AM Sex Female Language Tajik PCP ANDREW VERA DNP, CIGAR WRAPPER Marital Status Single Visit Id Visit Reason MEDRANO - Headache; MEDRANO - Headache; Headache (MEDRANO) NOS; Headache (MEDRANO) NOS; MIGRAINE Specialty Enc Type Emergency Med Service Emergency Medicine Referred by Track Group [facility] ED Discharge 04/22/2014 2:57 PM Tracking Id [id number] Checkout 04/22/2014 2:57 PM Checkin 04/22/2014 1:44 PM Acuity 5 -Non Urgent Dispo Type * Discharged to Home or Self Care Arrival 04/22/2014 1:44 PM Reg Status LOS 000 01:13 Address: [address] [place] [phone] Comment: PROVIDER INFORMATION Provider Role Provider Contact Time VJ ARCHIBALD RN ED Nurse 04/22/14 13:52 RYAN VALLEJO MD ED Provider 04/22/14 14:09 DIAGNOSIS Migraine Headache (MEDRANO) NOS Comment: PATIENT EDUCATION INFORMATION Instructions: HEADACHE, Migraine (Classical) Follow up: With: Address: When: ANDREW VERA [address] [phone] business (8) In 7 days 04/29/2014 Comments: With: Address: When: Discusss the acute management and prophylaxix of migraine with PC Provider. Within As Needed Comments: Source: [facility] Document Id: [id number] [employer] documented in this encounter Medications at Time of Discharge Medication Sig Dispensed Refills Start Date End Date ACETAMINOPHEN ORAL Take 500 mg by 0 06/04/2013 mouth every 6 (six) hours as needed. ibuprofen Take 4 tablets by 0 04/22/2014 020 (for_ADVIL,MOTRIN) 200 mg mouth as needed. tablet documented as of this encounter ED Notes Vj Archibald RJennifer. - 04/22/2014 2:51 PM CST ED Pain Assessment ED Pain Assessment Entered On: 04/22/2014 14:51 DIRECTOR [employer] Performed On: 04/22/2014 14:51 [employer]OR [employer] by VJ ARCHIBALD RN Pain Assessment Pain Symptoms : Yes VJ ARCHIBALD RN - 04/22/2014 14:51 DIRECTOR [employer] Pain Scale Pain Scale Verbal 0-10 : Open VJ ARCHIBALD RN - 04/22/2014 14:51 DIRECTOR [employer] Pain Pain Assessment Grid Pain 1 Location : Head Intensity : 3 VJ ARCHIBALD RN - 04/22/2014 14:51 DIRECTOR [employer] Source: [employer] Document Id: [id number] DIRECTOR [employer] PUBL[employer]ER [employer]!10 [employer] Vj Archibald R.N. - 04/22/2014 2:51 PM CST ED Disposition Summary ED Disposition Summary Entered On: 04/22/2014 14:52 DIRECT[employer] Performed On: 04/22/2014 14:51 DIRECTOR [employer] by VJ ARCHIBALD RN ED Disposition Summary Accompanied By : Friend Mode of Discharge : Ambulatory Transportation : Private vehicle Discharge From ED With : Home Med List Printed Discharge Instructions Given to Patient : Yes Patient Status at Discharge from ED : Improved VJ ARCHIBALD RN - 04/22/2014 14:51 [employer] Source: [employer] Document Id: [id number] DIRECTOR [employer]!8 [employer] Ryan Vallejo M.D. - 04/22/2014 2:10 PM CST Headache (MEDRANO) NOS, MEDRANO - Headache Patient: CARTER LEI Age: 33 years Sex: Female : 1980 Author: RYAN VALLEJO MD Attachments: None Associated Diagnosis: Migraine Headache (MEDRANO) NOS Basic Information Time seen: Immediately upon arrival. History source: Patient. Arrival mode: Private vehicle. History limitation: None. Additional information: Chief Complaint from Nursing Triage Note : Chief Complaint Description 04/22/2014 14:00 DIRECTOR [employer] Chief Complaint Description SEE TRIAGE 04/22/2014 13:52 DIRECTOR [employer]ER [employer] Chief Complaint Description 33 year old female presents to the ED via private vehicle with c/o migraine that started last night around 2130 last night, home interventions unsuccessful. Pt. has has emesis x1 and feels nauseated. . History of Present Illness The patient presents with headache. The onset was 12 hours ago. The course/duration of symptoms is constant and worsening. Location: Frontal parietal. Radiating pain: Feels like a typical migraine headache she had before.. The character of symptoms is throbbing. The degree at onset was severe, 10 /10.The degree at present is severe, 9 /10. There are exacerbating factors including light and noise. The relieving factor is light avoidance. Prior episodes: occasional. At one point few years ago she wasto Topamax for migraine prophylaxis before her last .. She is thinking about going back to her PC provider to discuss her migraine medications again . She is willing to get a Rx for Imitrex for acute management of migraine.. Review of Systems Constitutional symptoms: No fever, no chills or no sweats. Eye symptoms: Vision unchanged, but no recent vision problems. Respiratory symptoms: No shortness of breath. Cardiovascular symptoms: No chest pain, no palpitations or no tachycardia. Gastrointestinal symptoms: No abdominal pain, no nausea or no vomiting. Genitourinary symptoms: No dysuria or no hematuria. Neurologic symptoms: No headache, no dizziness or no altered level of consciousness. Additional review of systems information: All other [...] on 04/17/1989 at 8 years. Comments: 06/10/2010 DIRECTOR [employer] 16:12 DIRECTOR [employer] PUBL[employer]ER SAL[employer] - SANDRINE FULLER RN no known date of onset Resolved Other Symptoms Involving Urinary System (788.99): Onset on 03/04/2008 at 27 years. Resolved. Comments: - Bladder pain Sinusitis (473.9): Onset on 05/19/2000 at 19 years. Resolved.. Surgical history: Dilation and curettage ([id number]) on 03/26/2013 at 32 Years. Endometrial sampling (biopsy) with or without endocervical sampling (biopsy), without cervical dilation, any method (separate procedure) ([id number]) on 12/09/2009 at 29 Years. C FULL ROUT OBSTE CARE,VAGINAL DELIV - 05/20/06 - Baby Girl on 05/20/2006 at 25 Years. RW ENT (ABSTRACTED) - 09/13/01 - Sinus surgery x 2 on 09/13/2001 at 21 Years. Nasal sinus ([id number]) on 09/20/2000 at 20 Years. Comments: 06/10/2010 16:11 - SANDRINE FULLER RN sinus surgeries Tonsillectomy with adenoidectomy ([id number]) on 04/17/1994 at 13 Years. RW ENT [...] . Physical Examination Vital Signs: Vital Signs 04/22/2014 13:52 DIRECT[employer] Temperature Core 36.6 DegC Peripheral Pulse Rate 60 /min Respiratory Rate 18 /min SpO2 97 % Systolic Blood Pressure 118 mmHg Diastolic Blood Pressure 92 mmHg >HHI Mean Arterial Pressure 101 mmHg BP Location Left upper , Measurements 04/22/2014 13:52 DIRECTOR [employer] Height 158 cm Height Source Stated Dosing Weight 86.30 kg Actual Weight 86.3 kg Weight Source Standing scale Body Mass Index 34.57 kg/m2 , SpO2 04/22/2014 13:52 DIRECTOR [employer] SpO2 97 % . General: Alert and moderate distress. Skin: Warm and moist. Head: Normocephalic and atraumatic. Neck: Supple, trachea midline, no tenderness and no JVD. Eye: Pupils are equal, round and reactive to light, extraocular movements are intact, normal conjunctiva and vision unchanged. Ears, nose, mouth and throat: Tympanic membranes clear, oral mucosa moist and no pharyngeal erythemaor exudate. Cardiovascular: Regular rate and rhythm and No murmur. Respiratory: Lungs are clear to auscultation, respirations are non-labored and breath sounds are equal. Chest wall: No tenderness. Gastrointestinal: Soft and Nontender. Neurological: No focal neurological deficit observed, normal sensory observed, normal motor observed, normal coordination observed, Level of consciousness: Appropriate for age, Cranial nerves II - XII:Intact and Speech: Normal. Lymphatics: No lymphadenopathy. Psychiatric: Cooperative. Additional physical exam information: Neuro exam is intact.. Medical Decision Making Differential Diagnosis:Migraine, tension headache. Orders[facility] Orders Pharmacy: Toradol (Order Processing): 60 mg, IM, Once, [facility]: Compazine (Order Processing): 5 mg, IM, Once. Reexamination/ Reevaluation Course: improving. Pain status: decreased. Assessment: exam improved. Impression and Plan Diagnosis Migraine Headache (MEDRANO) NOS (Discharge, Emergency medicine, Medical) Plan Condition: Stable. Disposition: Discharged: to home. Patient was given the following educational materials: HEADACHE, Migraine (Classical), HEADACHE, Migraine (Classical), HEADACHE, Migraine (Classical). Follow up with: ANDREW VERA In 7 days 04/29/2014; Discusss the acute management and prophylaxixof migraine with PC Provider. Within As Needed. Counseled: Patient, Regarding diagnosis, Regarding diagnostic results, Regarding treatment plan, Regarding prescription, Patient indicated understanding of instructions. Notes: Rx for Imitrex is given to the patient., follow up plan is discussed , symptoms of headache completely resolved.. Electronically Signed By: RYAN VALLEJO MD On: 04/24/2014 07:26 AM Modified by and Electronically Signed by: RYAN VALLEJO MD On: 04/22/2014 02:22 PM Source: [facility] Document Id: [id number] [employer] Vj Archibald R.N. - 04/22/2014 2:00 PM CST ED Primary Assessment Document Has Been Updated ED Primary Assessment Entered On: 04/22/2014 14:02 DIRECTOR [employer] Performed On: 04/22/2014 14:00 DIRECTOR [employer] by VJ ARCHIBALD RN Reason For Visit (As Of: 04/22/2014 14:02:05 DIRECTOR [employer]) Problems(Active) Acne vulgaris (ICD-9-CM :706.1 ) Name [...] Provider: JANAY WAYNE RN, LANIE; Vocabulary: ICD-9-CM Migraine headache (ICD-9-CM :346.90 ) Name of Problem: Migraine headache ; Onset Date: 04/17/1989 ; Recorder: SANDRINE FULLER RN; Confirmation: Confirmed ; Classification: Medical ; Code: 346.90 ; Contributor System: PowerChart ; Last Updated: 04/12/2011 17:14 DIRECTOR [employer] ; Life Cycle Date: 06/10/2010 ; Life [...] NEEDED ; Code: 724.4 ; Contributor System: [facility] ; Last Updated: 07/13/2013 18:13 CDT [...] JANAY WAYNE RN, CNP; Vocabulary: ICD-9-CM Diagnoses(Active) Headache (MEDRANO) NOS Date: 04/22/2014 ; Diagnosis Type: Reason For Visit ; Confirmation: Complaint of ;Clinical Dx: Headache (MEDRANO) NOS ; Classification: Medical ; Clinical Service: Emergency medicine ; Code: ROGEL: Problem Search Terminology ; Probability: 0 ; Diagnosis Code: 111314716 Triage Chief Complaint Description : SEE TRIAGE Mode of Arrival ED : Private vehicle Track : Medical Languages : Tajik Treatments Prior to Arrival : Acetaminophen, Ibuprofen Are you ? : No Is Patient Female and 13-50 no hysterectomy : Yes Status : Patient denies VJ ARCHIBALD RN - 04/22/2014 14:00 DIRECT[employer] Pain Assessment Pain Symptoms : Yes VJ ARCHIBALD RN - 04/22/2014 14:00 DIRECTOR [employer] ED Physician Notification Time ED Physician Notification Time : 04/22/2014 13:57 DIRECTOR [employer] VJ ARCHIBALD RN - 04/22/2014 14:00 DIRECTOR [employer] PUBL[employer]ER [employer] MORALES MORALES Level 1 : No MORALES Level 2 : No MORALES Level 3 : One VJ ARCHIBALD RN - 04/22/2014 14:00 DIRECTOR [employer] DCP GENERIC CODE Tracking Acuity : 5 -Non Urgent Tracking Group : [facility] ED VJ ARCHIBALD RN - 04/22/2014 14:00 DIRECTOR [employer] Allergy (As Of: 04/22/2014 14:02:05 DIRECTOR [employer]) Allergies (Active) Augmentin XR Estimated Onset Date: Unspecified ; Reactions: GI distress ; Created By: MYRNA EDMONDS MD; Reaction Status: Active ; Category: Drug ; Substance: Augmentin XR ; Type: Intolerance ; Severity: Moderate ; Updated By: MYRNA EDMONDS MD; Source: Patient ; Reviewed Date: 04/22/2014 13:58 DIRECTOR [employer] PUBL[employer]ER [employer] Cipro Estimated Onset Date: Unspecified ; Created By: YASMANY CAVANAUGH RN; Reaction Status: Active ; Category: Drug ; Substance: Cipro ; Type: Allergy ; Updated By: YASMANY CAVANAUGH RN; Reviewed Date: 04/22/2014 13:58 DIRECTOR [employer] PUBL[employer]ER [employer]ES quinolone antibiotics Comments: Comment 1: QUINOLONES - Cipro; vomiting ; Created By: Contributor_system [facility]X_[facility]; Reaction Status: Active ; Category: Drug ; Substance: quinolone antibiotics ;Type: Unknown ; Updated By: Contributor_system [facility]; Reviewed Date: 04/22/2014 13:58 DIRECTOR [employer] PUBL[employer]ER SALES Silicone Estimated Onset Date: Unspecified ; Created By: JENNIFER FRANCIS RN; Reaction Status: Active ; Category: Drug ; Substance: Silicone ; Type: Sensitivity ; Updated By: JENNIFER FRANCIS RN; Reviewed Date: 04/22/2014 13:58 DIRECTOR [employer] ID Screen Drug Resistant Organism : No Travel Within Last 21 Days : No VJ ARCHIBALD RN - 04/22/2014 14:00 DIRECT[employer] Immunizations Immunizations Current : Yes Last Tetanus : < 5 years Pneumovac : None Influenza : This year VJ ARCHIBALD RN - 04/22/2014 14:00 DIRECTOR [employer] Respiratory Airway : Patent Respirations : Unlabored Respiratory Pattern : Regular VJ ARCHIBALD RN - 04/22/2014 14:00 DIRECTOR [employer] Cardiovascular Heart Rhythm : Regular Skin Color : Normal for ethnicity Skin Description : Dry Skin Temperature : Warm VJ ARCHIBALD RN - 04/22/2014 14:00 DIRECTOR [employer] Neurological Last Well Time Known : Not applicable Level of Consciousness : Alert Orientation : Oriented x 3 Characteristics of Speech : Appropriate for age Neuro Patient Stated Symptoms : Headache Gait : Steady Swallowing Difficulty/Aspiration Risk : None VJ ARCHIBALD RN - 04/22/2014 14:00 DIRECTOR [employer] ED Psychosocial Affect/Behavior : Calm, Cooperative, Appropriate Domestic Abuse Concerns : None Emotional Support Available : Yes VJ ARCHIBALD RN - 04/22/2014 14:00 DIRECTOR [employer] Gastrointestinal Nutrition ED : Adequate VJ ARCHIBALD RN - 04/22/2014 14:00 DIRECTOR [employer] /OB Assessment Patient Stated Symptoms : None VJ ARCHIBALD RN - 04/22/2014 14:00 DIRECTOR [employer] Integumentary Integumentary Patient Stated Symptoms : None VJ ARCHIBALD RN - 04/22/2014 14:00 DIRECT[employer] Musculoskeletal Fall Prevention Education Provided : Yes VJ ARCHIBALD RN - 04/22/2014 14:00 DIRECT[employer] Social Habits Tobacco Use/Currently Using : Yes Exposure to Tobacco Smoke : Patient smokes Smoking Status : Current every day smoker VJ ARCHIBALD RN - 04/22/2014 14:00 DIRECT[employer] Tobacco Use Grid Type : Cigarettes Cigarette Use Packs/Day : 0.5 Comments (Comment: 4 CIG PER DAY [VJ ARCHIBALD RN - 04/22/2014 14:00 DIRECT[employer]] ) VJ ARCHIBALD RN - 04/22/2014 14:00 DIRECTOR [employer] Alcohol Use Grid Alcohol Use : No No VJ ARCHIBALD RN - 04/22/2014 14:00 DIRECTOR [employer] PUBL[employer]ER [employer]ES VJ ARCHIBALD RN - 04/22/2014 14:00 DIRECTOR [employer] Recreational Drug Use Grid Drug Use : None VJ ARCHIBALD RN - 04/22/2014 14:00 DIRECTOR [employer] PUBL[employer]ER [employer]ES Source: [facility] Document Id: [id number] DIRECTOR [employer] PUBL[employer]ER [employer]ES!74 [employer] Vj Archibald R.N. - 04/22/2014 1:52 PM CST ED Triage Assessment Document Has Been Updated ED Triage Assessment Entered On: 04/22/2014 13:58 DIRECTOR [employer] Performed On: 04/22/2014 13:52 DIRECTOR [employer] by VJ ARCHIBALD RN Reason For Visit (As Of: 04/22/2014 13:58:16 DIRECTOR [employer]) Problems(Active) Acne vulgaris (ICD-9-CM :706.1 ) Name [...] System: PowerChart ; Last Updated: 04/12/2011 17:14 DIRECTOR [employer] ; Life Cycle Date: 06/10/2010 ; Life [...] NEEDED ; Code: 724.4 ; Contributor System: [facility]PLO[facility] ; Last Updated: 07/13/2013 18:13 CDT [...] JANAY WAYNE RN, CNP; Vocabulary: ICD-9-CM Diagnoses(Active) Headache (MEDRANO) NOS Date: 04/22/2014 ; Diagnosis Type: Reason For Visit ; Confirmation: Complaint of ;Clinical Dx: Headache (MEDRANO) NOS ; Classification: Medical ; Clinical Service: Emergency medicine ; Code: ROGEL: Problem Search Terminology ; Probability: 0 ; Diagnosis Code: [id number] Triage Chief Complaint Description : 33 year old female presents to the ED via private vehicle with c/o migraine that started last night around 0 last night, home interventions unsuccessful. Pt. has has emesis x1 and feels nauseated. Information Given By : Patient Accompanied By : Alone Mode of Arrival ED : Private vehicle Track : Medical Languages : Tajik Vital Signs Assessed : Yes Treatments Prior to Arrival : Acetaminophen, Ibuprofen Are you ? : No Is Patient Female and 13-50 no hysterectomy : Yes Status : Patient denies VJ ARCHIBALD RN - 04/22/2014 13:52 DIRECTOR [employer] Vital Signs Temperature Core : 36.6 DegC(Converted to: 97.9 DegF) Peripheral Pulse Rate : 60 /min Respiratory Rate : 18 /min Systolic Blood Pressure : 118 mmHg Diastolic Blood Pressure : 92 mmHg (>HHI) NIBP Mean : 101 mmHg BP Location : Left upper extremity SpO2 : 97 % Oxygen Therapy : Room air Height : 158 cm(Converted to: 5 ft 2 inch(es)) Actual Weight : 86.3 kg Actual Weight Conversion to Pounds : 189.86 lb Weight Source : Standing scale Height Source : Stated Body Mass Index : 34.57 kg/m2 VJ ARCHIBALD RN - 04/22/2014 13:52 DIRECTOR [employer] Pain Assessment Pain Symptoms : Yes VJ ARCHIBALD RN - 04/22/2014 13:52 DIRECTOR [employer] Pain Scale Pain Scale Verbal 0-10 : Open VJ ARCHIBALD RN - 04/22/2014 13:52 DIRECTOR [employer] Pain Pain Assessment Grid Pain 1 Location : Head Laterality : Bilateral Intensity : 8 Time Pattern : Acute Onset : Gradual Quality : Throbbing Aggravating Factors : Light Alleviating Factors : None Associated Symptoms : Nausea VJ ARCHIBALD RN - 04/22/2014 13:52 DIRECTOR [employer] ED Physician Notification Time ED Physician Notification Time : 04/22/2014 13:57 DIRECTOR [employer] VJ ARCHIBALD RN - 04/22/2014 13:52 DIRECTOR [employer]ER [employer]ES MORALES MORALES Level 1 : No MORALES Level 2 : No MORALES Level 3 : One VJ ARCHIBALD RN - 04/22/2014 13:52 DIRECTOR [employer] PUBL[employer]ER SAL[employer] DCP GENERIC CODE Tracking Acuity : 5 -Non Urgent Tracking Group : [facility] ED VJ ARCHIBALD RN - 04/22/2014 13:52 DIRECTOR [employer]ES Allergy (As Of: 04/22/2014 13:58:16 DIRECTOR [employer]) Allergies (Active) Augmentin XR Estimated Onset Date: Unspecified ; Reactions: GI distress ; Created By: MYRNA EDMONDS MD; Reaction Status: Active ; Category: Drug ; Substance: Augmentin XR ; Type: Intolerance ; Severity: Moderate ; Updated By: MYRNA EDMONDS MD; Source: Patient ; Reviewed Date: 04/22/2014 13:58 DIRECTOR [employer]ER [employer]ES Cipro Estimated Onset Date: Unspecified ; Created By: YASMANY CAVANAUGH RN; Reaction Status: Active ; Category: Drug ; Substance: Cipro ; Type: Allergy ; Updated By: YASMANY CAVANAUGH RN; Reviewed Date: 04/22/2014 13:58 DIRECTOR [employer] PUBL[employer]ER [employer]ES quinolone antibiotics Comments: Comment 1: QUINOLONES - Cipro; vomiting ; Created By: Contributor_system [facility]; Reaction Status: Active ; Category: Drug ; Substance: quinolone antibiotics ;Type: Unknown ; Updated By: Contributor_system, [facility]; Reviewed Date: 04/22/2014 13:58 DIRECTOR [employer] PUBL[employer]ER SALES Silicone Estimated Onset Date: Unspecified ; Created By: JENNIFER FRANCIS RN; Reaction Status: Active ; Category: Drug ; Substance: Silicone ; Type: Sensitivity ; Updated By: JENNIFER FRANCIS RN; Reviewed Date: 04/22/2014 13:58 DIRECTOR GLOBAL STRATEGIC PUBLISHER SALES ID Screen Drug Resistant Organism : No Travel Within Last 21 Days : No VJ ARCHIBALD RN - 04/22/2014 13:52 DIRECTOR GLOBAL STRATEGIC PUBLISHER SALES Immunizations Immunizations Current : Yes Last Tetanus : < 5 years Pneumovac : None Influenza : This year VJ ARCHIBALD RN - 04/22/2014 13:52 DIRECTOR GLOBAL STRATEGIC PUBLISHER SALES Source: [facility] Document Id: [id number] DIRECTOR GLOBAL STRATEGIC PUBLISHER SALES!62 CTOR GLOBAL STRATEGIC PUBLISHER SALES documented in this encounter Miscellaneous Notes Miscellaneous - Vj Archibald R.N. - 04/22/2014 2:55 PM CST Valuables/Belongings Valuables/Belongings Entered On: 04/22/2014 14:55 DIRECTOR GLOBAL STRATEGIC PUBLISHER SALES Performed On: 04/22/2014 14:55 DIRECTOR GLOBAL STRATEGIC PUBLISHER SALES by VJ ARCHIBALD RN Valuables/Belongings Belongings Sent Home With : all belongings sent home with patient Home Medication Disposition : None brought in with patient VJ ARCHIBALD RN - 04/22/2014 14:55 DIRECTOR GLOBAL STRATEGIC PUBLISHER SALES Source: [facility] Document Id: [id number] DIRECTOR GLOBAL STRATEGIC PUBLISHER SALES!4 CTOR GLOBAL STRATEGIC PUBLISHER SALES Miscellaneous - Vj Archibald R.N. - 04/22/2014 1:44 PM CST Facility Charge Ticket 2.0 11.0 DX Facility Charge Ticket 2.0 11.0 DX Entered On: 04/22/2014 14:55 DIRECTOR GLOBAL STRATEGIC PUBLISHER SALES Performed On: 04/22/2014 13:44 DIRECTOR GLOBAL STRATEGIC PUBLISHER SALES by REMILLARD, MARLAYNA J RN Facility Charge Ticket 2.0 11.0 DX ED Other Charges : Standard ED Encounter TVL Level Translated RTF : Headache (MEDRANO) NOS, MEDRANO - Headache TVL:4 TVL Level for Facility Charge Ticket : Level 4 Arrival Mode Calc : 257 Mode of Arrival ED : Private vehicle [facility] Mode of Arrival Interpreted : Standard [facility] Process Management : None [facility] Order Management : None 30 Minutes Critical Care : No Nursing Notes RTF : Triage Forms ED Triage Assessment,04/22/14 13:52,VJ ARCHIBALD RN Nursing Notes ED Primary Assessment,04/22/14 14:00,VJ ARCHIBALD RN ED Pain Assessment,04/22/14 14:51,VJ ARCHIBALD RN [facility] Nursing Assessment : Triage and 1-2 nursing assessments [facility] Disposition : Discharge Disposition RTF : discharge [facility] Total Points with Diagnosis Control : 7 [facility] Visit Level : 19281 Level 3 Treatments Prior to Arrival : Acetaminophen, Ibuprofen VJ ARCHIBALD RN - 04/22/2014 14:55 DIRECTOR GLOBAL STRATEGIC PUBLISHER SALES Chief Complaint 11.0 Reason For Visit Category : Neurology TVL Calculation : 12 ED Chief Complaint Neurology 11.0 : Headache TVL for Facility Charge Ticket Dx : Level 4 VJ ARCHIBALD RN - 04/22/2014 14:55 DIRECTOR GLOBAL STRATEGIC PUBLISHER SALES Source: [employer] Document Id: [id number] DIRECTOR GLOBAL STRATEGIC PUBLISHER SALES!23 CTOR GLOBAL STRATEGIC PUBLISHER SALES documented in this encounter Plan of Treatment Not on filedocumented as of this encounter Visit Diagnoses Not on filedocumented in this encounter Additional Health Concerns Assessment Noted Time PHQ-9 Depression Total Score: 3 06/13/2013 6:47 AM DIRECTOR GLOBAL STRATEGIC PUBLISHER SALES documented as of this encounter
--- OUTSIDE RECORDS SUMMARY | 2022-03-16 15:08 | XMS_ITS | Encounter Summary ---
:1980 Author Organization [facility] Address [address] [place] [address] Care Team Providers Name Role Phone Unavailable Primary Care Provider Unavailable Encounter Details Date Type Department Care Team Description 04/18/[address] [facility] Andrew Vera, LO, C.N.P., D. N.P. [address] [place] [address] (Wo rk) Social History Tobacco [...] More than 4 times per year 11/09/2020 caodaism services? Do you belong to any clubs [...] slept in a skilled nursing (including now)? Sex Assigned at Date Recorded Not on file documented as of this encounter Last Filed Vital Signs Vital Sign Reading Time Taken Comments Blood Pressure 108/62 04/18/2013 8:08 AM CLERICAL TRANSCRIBER Pulse 96 04/18/2013 8:08 AM CLERICAL TRANSCRIBER Temperature - - Respiratory Rate 20 04/18/2013 8:08 AM CLERICAL TRANSCRIBER Oxygen Saturation - - Inhaled Oxygen Concentration - - Weight 86.9 kg (191 lb 9.3 oz) 04/18/2013 8:08 AM CLERICAL TRANSCRIBER Height - - Body Mass Index 35.26 04/12/2013 7:30 AM CLERICAL TRANSCRIBER documented in this encounter Progress Notes Andrew Vera D.N.P., C.N.P. - 04/18/2013 7:57 AM CST [id number] CHIEF COMPLAINT/REASON FOR VISIT Cough. HISTORY OF PRESENT ILLNESS The patient is a 32-year-old female that presents to the clinic today to follow up on her cough. Sheindicates that she has been taking Robitussin with codeine to help with her symptoms in which this significantly improves her cough. She was previously placed on prednisone and nebulizers but indicatesthey just did not help. I will note that when she was using this medication, her peak flows were noted to be in normal range for her age and height. Given the fact that she does have a history of asthma and her peak flows were satisfactory, I did indicate that she could discontinue her previously prescribed prednisone and her nebs in which she did and indicates that she is feeling much better. She i ndicates that her symptoms are markedly improved. She otherwise indicates she is not having any other further concerns or issues. PAST MEDICAL/SURGICAL HISTORY Reviewed. Please see chart. FAMILY HISTORY Reviewed. Please see chart. MEDICATIONS Reviewed. Please see chart. ALLERGIES Reviewed. Please see chart. PHYSICAL EXAMINATION OBJECTIVE: Patient is alert/oriented x 3. HEAD: Normocephalic/atraumatic. PUPILS: GLEN. OROPHARYNX: [place] and moist. TMs: Bilateral TMs are clear, bony landmarks noted and WNL. NARES: Patent, no erythema or drainage noted. NECK: No anterior/posterior lymphadenopathy noted. HEART: Regular S1, S2, no murmurs, rubs or gallops noted. LUNGS: Clear to auscultation, no prolonged expiratory phases, wheezing, rales or rhonchi noted. SKIN: Without unusual rashes or suspicious lesions. IMPRESSION/REPORT/PLAN Resolving cough. PLAN: Discussed the overall findings at length with the patient. Presently, at this time she was given Robitussin with codeine to take 1 to 2 teaspoons by mouth every 4 to 6 hours as needed for cough and indicated not to operate heavy machinery or drive a vehicle while taking this medication. Patient stated she understands this plan. She otherwise denied having any further questions or concerns. Patient ambulated out of the clinic in no acute distress. PATIENT EDUCATION: Ready to learn No apparent learning barriers were identified Learning preferences include listening Explained diagnosis and treatment plan Patient/Child/Caregiver expressed understanding of the content Leslie JacobsNLashawnPLashawn/F.N.P/andre Electronically Signed By: ANDREW VERA DNP, FNP On: 04/22/2013 01:01 PM Source: [facility]SDOLBEYNONRADSYS Document Id: [id number] ICAL TRANSCRIBER documented in this encounter Procedure Notes Aron Bo L.PLashawnNLashawn - 04/18/2013 8:11 AM CST Peak Flow POC Peak Flow POC Entered On: 04/18/2013 8:13 CLERICAL TRANSCRIBER Performed On: 04/18/2013 8:11 CLERICAL TRANSCRIBER by AORN BO LPN Peak Flow POC Peak Flow POC Initial : 330 L/sec Peak Flow POC #2 : 370 L/sec Peak Flow POC #3 : 370 L/sec Patient Effort Peak Flow POC : Good Comment : Good effort with patient having a cold. ARON BO LPN - 04/18/2013 8:11 CLERICAL TRANSCRIBER Source: [facility] POWERCHART Document Id: [id number] CLERICAL TRANSCRIBER!7 ICAL TRANSCRIBER Guido Merchant L.P.N. - 04/12/2013 3:48 PM CST Asthma Control Test (12 yrs and older) Asthma Control Test (12 yrs and older) Entered On: 04/16/2013 15:49 CLERICAL TRANSCRIBER Performed On: 04/12/2013 15:48 CLERICAL TRANSCRIBER by GUIDO MERCHANT LPN ACT Past 4 weeks asthma interfered with work, school, or home : Most of the Time Past 4 weeks how often short of breath : More than once a day Past 4 weeks symptoms effect sleep : 4 or more nights a week Past 4 weeks how often inhaler or nebulizer used : 3 or more times per day Past 4 weeks rate your asthma control : Not controlled at all ACT Score : 6 GUIDO MERCHANT LPN - 04/16/2013 15:48 CLERICAL TRANSCRIBER [facility] Document Id: [id number] CLERICAL TRANSCRIBER!8 ICAL TRANSCRIBER documented in this encounter Miscellaneous Notes Telephone Encounter - Andrew Vera D.N.P., C.N.P. - 04/26/2013 12:00 AM CST [id number] PHONE CONVERSATION: I had contacted the patient today on April 26, 2009 in which I was unable to come into clinic today. The patient indicates that she had been having sinus congestion symptoms that actually have been present now for probably greater than the last 1 1/2 to 2 weeks duration. She indicates that she thinks that she was having some nasal congestion but just kind of coped with it and indicates that the congestion became more severe just 3 to 4 days ago. She indicates now she is having headaches, facial pressure and thick nasal secretions. She indicates that she has been taking fhuo-efu-vtquupn Tylenol, Benadryl and previously prescribed Robitussin with codeine to help with the symptoms with minimal symptom improvement. She does have a history of allergic rhinitis and also sinusitis. She is currently at this time in her first trimester. She indicates that she is not having any shortness breathor difficulty breathing. She denies having any fevers or chills. She indicates that she has not had any changes in urination or bowel habits and reports that she is not taking anything else [id number] to help with the symptoms. She was going to come in today for further evaluation. After discussing the patient duration of symptoms at length, we had indicated we will trial a watch and wait therapy, but if in fact the symptoms do not seem to improve, I did prescribe her Ceftin 500 mg by mouth twice a day for 10 days a quantity sufficient with no refills. She was also excused from work for todaydue to medical reasons. We discussed the risks and benefits of antimicrobial therapy and also the pathophysiology and etiology of sinusitis at length. Given these findings again she indicates that she will do more of a watch and wait therapy, but she would like to have the antibiotics sent to the pharmacy if in fact she needs to have this filled over the weekend. She felt very comfortable with the information provided. She does have listed Augmentin to her allergy list but indicates that only side effects included diarrhea and indicates that her symptoms of reaction did not include a rash, shortness of breath or difficulty breathing. She feels comfortable if in fact she needs to start on the Ceftin in which this also is a category B in . Patient again denied having any further questions or concerns. Patient felt comfortable with this treatment plan. I did ask the patient if she felt comfortable deferring a physical examination at this time in which she states she does, though I indicate that if any of her symptoms worsen or continue I do recommend making a clinic appointment. The patient felt very comfortable with this decision. She denied having any further questions or concerns andwill follow-up as needed. Andrew Vera D.N.P./MaluNLashawnP/andre Electronically Signed By: ANDREW VERA DNP, FNP On: 04/27/2013 12:11 PM Source: [facility]SDOLBEYNONRADSYS Document Id: [id number] ICAL TRANSCRIBER Miscellaneous - Andrew Vera D.N.P., C.N.P. - 04/18/2013 9:29 AM CLERICAL TRANSCRIBER Ambulatory Patient Summary [facility] [address] [place] [address] Visit Information Name: CARTER LEI [facility] Number: [id number] Current Date: 04/18/2013 09:29:27 Physicians Attending Provider: ANDREW VERA DNP, FNP Primary Care Provider: ANDREW VERA DNP, FNP CARTER LEI has been given the following [...] Take Indications/Special Instructions/Comments/Notes for Patient Medication Changes/Routing codeine-guaiFENesin (codeine-guaiFENesin 10 mg-100 mg/5 mL oral syrup) 5-10 mL, Oral, every 4 hours as needed for cough Routed to Printer guaiFENesin (Robitussin) 100 mg, Oral, every 4 hours *montelukast (Singulair 10 mg oral tablet) 1 Tablet(s), Oral, every evening multivitamin, ( Multivitamins oral tablet) 1 Tablet(s), Oral, once a day * You have let us know that you are not taking this medication as listed. Please talk with your primary care provider or the health care provider who prescribed the medication as soon as possible. Stop Taking the Following Medications: albuterol (Ventolin HFA 90 mcg/inh inhalation aerosol) ipratropium-albuterol (DuoNeb 0.5 mg-2.5 mg/3 mL inhalation solution) nystatin (nystatin 100,000 units/mL oral suspension) ondansetron (Zofran 4 mg oral tablet) Medication list as of 04-18-13 09:29 Attention: If you have any medications at [...] & Intolerances Substance Reaction Symptoms Category Comments Cipro Drug Augmentin XR GI distress Drug Silicone Drug Your Problem List Problem Status Onset Comments Migraine headache Active 04/17/1989 06/10/10 no known date of onset Acne vulgaris Active 12/17/10 Date of onset unknown Anxiety State, Unspecified Active 08/22/2011 Allergic rhinitis, unspecified Active 08/22/2011 Tobacco Use Disorder Active 08/22/2011 Your Upcoming Appointments Date Time Location Reason Provider 04/30/2013 17:45 [facility] Family Med INITIAL OB Adrian SANCHES, Andrew Hannon Attention: Contact your local Clinic if further appointment detail needed. Your Goals/Additional instructions: Source: [facility] POWERCHART Document Id: [id number] ICAL TRANSCRIBER Miscellaneous - Andrew Vera, Tristin.N.P., C.N.P. - 04/18/2013 9:29 AM CLERICAL TRANSCRIBER Ambulatory Depart Summary [address] [address] Visit Information Name: CARTER LEI [facility] Number: [id number] Visit Date: 04/18/2013 09:29:24 Attending Provider: ANDREW VERA DNP, FNP Primary Care Provider: ANDREW VERA DNP, FNP CARTER LEI has been given the following list of medications: Your Medications It is important to take your medications as directed. Use a pill box or chart to help remind you to take your medications. Please let your doctor or nurse know if you have problems taking your medications. Medication/Strength How to Take Indications/Special Instructions/Comments/Notes for Patient Medication Changes/Routing codeine-guaiFENesin (codeine-guaiFENesin 10 mg-100 mg/5 mL oral syrup) 5-10 mL, Oral, every 4 hours as needed for cough Routed to Printer guaiFENesin (Robitussin) 100 mg, Oral, every 4 hours *montelukast (Singulair 10 mg oral tablet) 1 Tablet(s), Oral, every evening multivitamin, ( Multivitamins oral tablet) 1 Tablet(s), Oral, once a day * You have let us know that you are not taking this medication as listed. Please talk with your primary care provider or the health care provider who prescribed the medication as soon as possible. Stop Taking the Following Medications: albuterol (Ventolin HFA 90 mcg/inh inhalation aerosol) ipratropium-albuterol (DuoNeb 0.5 mg-2.5 mg/3 mL inhalation solution) nystatin (nystatin 100,000 units/mL oral suspension) ondansetron (Zofran 4 mg oral tablet) Medication list as of 04-18-13 09:29 Attention: If you have any medications at home that are not on this list, DO NOT take them until youcontact your provider for clarification. Give a copy of your medication list to your primary care provider. Update your medication list any time medications or doses are changed and carry your medication list at all times in case of emergency. Additional Information: Source: [facility] POWERCHART Document Id: [id number] ICAL TRANSCRIBER Miscellaneous - Aron Bo, L.P.N. - 04/18/2013 8:08 AM CST Adult Electric Organ Assembler Intake/History Adult Electric Organ Assembler Intake/History Entered On: 04/18/2013 8:11 CLERICAL TRANSCRIBER Performed On: 04/18/2013 8:08 CLERICAL TRANSCRIBER by ARON BO LIGHT BULB REPLACER Intake Chief Complaint : Follow up cold-cough, sore throat. discuss appointment. Temperature Core : 36.4 DegC(Converted to: 97.5 DegF) (LOW) Peripheral Pulse Rate : 96 /min Respiratory Rate : 20 /min Systolic Blood Pressure : 108 mmHg Diastolic Blood Pressure : 62 mmHg NIBP Mean : 77 mmHg BP Location : Left upper extremity Blood Pressure Cuff Size : Regular SpO2 : 98 % Oxygen Therapy : Room air Actual Weight : 86.9 kg(Converted to: 191 lb 9 oz) Weight Source : Standing scale Dosing Weight Clinic : 86.9 kg ARON BO [facility] - 04/18/2013 8:08 CLERICAL TRANSCRIBER General Info Information Given By : Patient Preferred Communication Mode : Verbal Languages : Setswana ARON BO [facility] - 04/18/2013 8:08 CLERICAL TRANSCRIBER Subjective Pain Symptoms : No ARON BO [facility] - 04/18/2013 8:08 CLERICAL TRANSCRIBER Dependent Habits Tobacco Use/Currently Using : Yes Exposure to Tobacco Smoke : Patient smokes Smoking Status : Current every day smoker ARON BO [facility] - 04/18/2013 8:08 CLERICAL TRANSCRIBER Tobacco Use Grid Type : Cigarettes Comments (Comment: 2 cig/day [ARON BO [facility] - 04/18/2013 8:08 CLERICAL TRANSCRIBER] ) ARON BO [facility] - 04/18/2013 8:08 CLERICAL TRANSCRIBER Alcohol Use : No ARON BO [facility] - 04/18/2013 8:08 CLERICAL TRANSCRIBER Caffeine Use Grid Caffeine Use : Current Type : Soft drinks Frequency : Occasionally ARON BO [facility] - 04/18/2013 8:08 CLERICAL TRANSCRIBER Recreational Drug Use Grid Drug Use : None ARON BO [facility] - 04/18/2013 8:08 CLERICAL TRANSCRIBER Source: [employer] Document Id: [id number] CLERICAL TRANSCRIBER!38 ICAL TRANSCRIBER documented in this encounter Plan of Treatment Not on filedocumented as of this encounter Visit Diagnoses Not on filedocumented in this encounter
--- OUTSIDE RECORDS SUMMARY | 2022-03-16 15:08 | XMS_ITS | Encounter Summary ---
:1980 Author Organization [facility] Address [address] [place] [address] Care Team Providers Name Role Phone Unavailable Primary Care Provider Unavailable Encounter Details Date Type Department Care Team Description 02/11/2013 Hospital Encounter HX [facility] Zina Vera, LO, C.N.P., D. N.P. [address] [place] [address] (Wo rk) Social History Tobacco [...] Sign Reading Time Taken Comments Blood Pressure 110/58 02/11/2013 8:17 AM CDT Pulse 99 02/11/2013 8:17 AM CDT Temperature - - Respiratory Rate 18 02/11/2013 8:17 AM CDT Oxygen Saturation - - Inhaled Oxygen Concentration - - Weight 82.9 kg (182 lb 12.2 oz) 02/11/2013 8:17 AM CDT Height 160.8 cm (5' 3.31) 02/11/2013 8:17 AM CDT Body Mass Index 32.06 02/11/2013 8:17 AM CDT documented in this encounter Progress Notes Zina Vera D.N.P., C.N.P. - 02/11/2013 8:04 AM CDT [id number] CHIEF COMPLAINT/REASON FOR VISIT Allergies. HISTORY OF PRESENT ILLNESS The patient is a 32-year-old female that presents to the clinic today with a chief complaint of allergies. 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 She indicates that she has not been working now for approximately the past 4 to 5 weeks duration and indicates that she has now is requesting unemployment insurance be completed. She otherwise indicates that she is not having any other further concerns at this time. Her allergies are well controlled with the current use of Singulair 10 mg by mouth daily. She otherwise indicates she is not having any other further concerns or issues. PAST MEDICAL/SURGICAL HISTORY Reviewed. Please see chart. FAMILY HISTORY Reviewed. Please see chart. MEDICATIONS Reviewed. Please see chart. ALLERGIES Reviewed. Please see chart. PHYSICAL EXAMINATION GENERAL: The patient is an alert, well-nourished, 32-year-old female that appears to be in no acute distress. HEAD: Normocephalic, atraumatic. Remainder of further examination deferred at this time. IMPRESSION/REPORT/PLAN History of allergies and requesting unemployment insurance completion. PLAN: Discussed the findings with the patient. Presently, at this time, though I do recognize she does have a history of allergic rhinitis currently taking her Singulair 10 mg by mouth daily, I do not feel that this is reason to qualify her for unemployment insurance including being able to totally beunable to perform any type of work or put her on any limited ability or work restrictions. She is cleared to work without any formal restrictions from 02/11/2013 to 02/11/2014 in which this was completed and provide to the patient. Patient stated she understands this plan. Patient otherwise denied having any further questions or concerns. Patient ambulated out of the clinic in no acute distress. PATIENT EDUCATION: Ready to learn No apparent learning barriers were identified Learning preferences include listening Explained diagnosis and treatment plan Patient/Child/Caregiver expressed understanding of the content Zina Vera D.N.P./Anibal/andre Electronically Signed By: ZINA VERA DNP, FNP On: 02/18/2013 07:48 AM Source: [facility] [id number] Document Id: [id number] SLUGS INSPECTOR documented in this encounter Miscellaneous Notes Miscellaneous - Zina Vera D.N.P., C.N.P. - 02/11/2013 12:18 PM CDT Ambulatory Patient Summary [id number] [place] [address] Visit Information Name: DULCE MENSAH [facility] Number: [id number] Current Date: 02/11/2013 12:18:21 Physicians Attending Provider: ZINA VERA DNP, FNP Primary Care Provider: ZINA VERA DNP, FNP DULCE MENSAH has been given the following [...] you have problems taking your medications. Medication/Strength Dose Route Frequency Indications/Special Instructions/Comments/Notes ondansetron (Zofran 4 mg oral tablet) 4 mg Oral every 8 hours as needed for Nausea montelukast (Singulair 10 mg oral tablet) 10 mg Oral every evening ibuprofen (ibuprofen 200 mg oral tablet) 800 mg Oral as needed as needed for headache DO NOT take onthe same day with naproxen. naproxen (naproxen) Oral Pain DO NOT take on the same day you take ibuprofen. Attention: If you have any medications at home that are not on this list, DO NOT take them until youcontact your provider for clarification. Your Allergies & Intolerances Substance Reaction Symptoms Category Comments Cipro Drug Augmentin XR GI distress Drug Silicone Drug Your Problem List Problem Status Onset Comments Migraine headache Active 04/17/1989 06/10/10 no known date of onset Abnormal Pap Active 10/21/2009 Acne vulgaris Active 12/17/10 Date of onset unknown Anxiety State, Unspecified Active 08/22/2011 Allergic rhinitis, unspecified Active 08/22/2011 Tobacco Use Disorder Active 08/22/2011 Your Upcoming Appointments Date Time Location Reason Provider No Appointments found Attention: Contact your local Clinic if further appointment detail needed. Your Goals/Additional instructions: Source: [facility] POWERCHART Document Id: [id number] Miscellaneous - Zina Vera, Tristin.N.P., C.N.P. - 02/11/2013 12:18 PM CDT Ambulatory Depart Summary [id number] [place] [address] Visit Information Name: DULCE MENSAH [facility] Number: [id number] Visit Date: 02/11/2013 12:18:20 Attending Provider: ZINA VERA DNP, [employer]NING LEADER Primary Care Provider: ZINA VERA DNP, P[employer]DER [employer]IM[employer] CANNING LEADER DULCE MENSAH ELEAZAR has been given the following list of medications: Your Medications It is important to take your medications as directed. Use a pill box or chart to help remind you to take your medications. Please let your doctor or nurse know if you have problems taking your medications. Medication/Strength Dose Route Frequency Indications/Special Instructions/Comments/Notes ondansetron (Zofran 4 mg oral tablet) 4 mg Oral every 8 hours as needed for Nausea montelukast (Singulair 10 mg oral tablet) 10 mg Oral every evening ibuprofen (ibuprofen 200 mg oral tablet) 800 mg Oral as needed as needed for headache DO NOT take onthe same day with naproxen. naproxen (naproxen) Oral Pain DO NOT take on the same day you take ibuprofen. Attention: If you have any medications at home that are not on this list, DO NOT take them until youcontact your provider for clarification. Additional Information: Source: [facility] POWERCHART Document Id: [id number] Miscellaneous - Laine Diaz, L.P.N. - 02/11/2013 8:20 AM CDT Health Assessment Health Assessment Entered On: 02/11/2013 8:20 CDT Performed On: 02/11/2013 8:20 CDT by LAINE DIAZ LPN Health Assessment Complete Health Assessment Complete or Modified : Annual Health Assessment Annual Health Assessment Completed : Yes LAINE DIAZ LPN - 02/11/2013 8:20 CDT Nutrition Nutrition Risk Factors by History Adult : None LAINE DIAZ LPN - 02/11/2013 8:20 CDT Functional Current Daily Living Assistance : None LAINE DIAZ LPN - 02/11/2013 8:20 CDT Dependent Habits Tobacco Use/Currently Using : Yes Exposure to Tobacco Smoke : Patient smokes Smoking Status : Current every day smoker LAINE DIAZ LPN - 02/11/2013 8:20 CDT Tobacco Use Grid Type : Cigarettes Cigarette Use Packs/Day : 0.5 LAINE DIAZ LPN - 02/11/2013 8:20 CDT Caffeine Use Grid Caffeine Use : Current Type : Soft drinks Frequency : Daily LAINE DIAZ LPN - 02/11/2013 8:20 CDT Recreational Drug Use Grid Drug Use : None LAINE DIAZ LPN - 02/11/2013 8:20 CDT Psychosocial Domestic Abuse Concerns : None LAINE DIAZ LPN - 02/11/2013 8:20 CDT Advance Directive Advanced Directives : No Advance Directive Additional Information : No LAINE DIAZ LPN - 02/11/2013 8:20 CDT Educ Needs Learning Style Preference Adult Grid Patient : None Family : None LAINE DIAZ LPN - 02/11/2013 8:20 CDT Source: [employer] Document Id: [id number] CDT!33 Miscellaneous - Laine Diaz, L.P.N. 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 Intake/History Entered On: 02/11/2013 8:19 CDT Performed On: 02/11/2013 8:17 CDT by LAINE DIAZ LPN Intake Chief Complaint : paperwork Temperature Core : 35.9 DegC(Converted to: 96.6 DegF) (LOW) Peripheral Pulse Rate : 99 /min Respiratory Rate : 18 /min Heart Rhythm : Regular Systolic Blood Pressure : 110 mmHg Diastolic Blood Pressure : 58 mmHg NIBP Mean : 75 mmHg BP Location : Left upper extremity Blood Pressure Cuff Size : Regular SpO2 : 99 % Oxygen Therapy : Room air Height : 160.8 cm(Converted to: 5 ft 3 inch(es), 63.31 inch(es)) Actual Weight : 82.9 kg(Converted to: 182 lb 12 oz) Weight Source : Standing scale Dosing Weight Clinic : 82.9 kg Clinic BSA : 1.92 Body Mass Index : 32.06 kg/m2 LAINE DIAZ LPN - 02/11/2013 8:17 CDT General Info Information Given By : Patient Languages : Namibian LAINE DIAZ LPN - 02/11/2013 8:17 CDT Subjective Pain Symptoms : No LAINE DIAZ [facility] 02/11/2013 8:17 CDT Dependent Habits Tobacco Use/Currently Using : Yes Exposure to Tobacco Smoke : Patient smokes Smoking Status : Current every day smoker LAINE DIAZ [facility] 02/11/2013 8:17 CDT Tobacco Use Grid Type : Cigarettes Cigarette Use Packs/Day : 0.5 LAINE DIAZ [facility] 02/11/2013 8:17 CDT Alcohol Use : No LAINE DIAZ [facility] 02/11/2013 8:17 CDT Caffeine Use Grid Caffeine Use : Current Type : Soft drinks Frequency : Daily LAINE DIAZ [facility] 02/11/2013 8:17 CDT Recreational Drug Use Grid Drug Use : None LAINE DIAZ [facility] 02/11/2013 8:17 CDT Source: [employer] Document Id: [id number] CDT!42 documented in this encounter Plan of Treatment Not on filedocumented as of this encounter Visit Diagnoses Not on filedocumented in this encounter
--- OUTSIDE RECORDS SUMMARY | 2022-03-16 15:08 | XMS_ITS | Encounter Summary ---
:1980 Author Organization [facility] Address [address] [place] [address] Care Team Providers Name Role Phone Unavailable Primary Care Provider Unavailable Encounter Details Date Type Department Care Team Description 04/10/2013 Hospital Encounter HX [facility] ED Ariel Perez M.D. [address] [place] [address] (Wo rk) Social History Tobacco Use Types [...] Sign Reading Time Taken Comments Blood Pressure 121/76 04/10/2013 7:12 PM BRICK MASON Pulse 112 04/10/2013 7:50 PM BRICK MASON Temperature - - Respiratory Rate 20 04/10/2013 7:50 PM BRICK MASON Oxygen Saturation - - Inhaled Oxygen Concentration - - Weight - - Height - - Body Mass Index - - documented in this encounter Discharge Summaries Memo Burch R.N. - 04/10/2013 9:25 PM CST ED Discharge Instructions [address] [address] Name: CARTER LEI Date of : 1980 12:00 AM Visit Date: 04/10/2013 6:48 PM [facility] Number: [id number] Address: [address] [place] [phone] Primary Care Provider: ANDREW VERA DNP, SHIFT MGR IMPORTANT: [facility] in [place] would like to thank you for allowing us to assist you with your healthcare needs. The following includes patient education materials and informationregarding your injury/illness. Chief Complaint: asthma issues Follow-Up Instructions: With: Address: When: ANDREW VERA [address] [place] [id number] Business (1) Within As Needed Comments: Patient Education Materials: [id number] ASTHMA [Adult] Asthma is a disease where the small air passages within the lung go into spasm and restrict the flowof air. Inflammation and swelling of the airways cause further restriction. During an acute asthma attack, these factors cause difficulty breathing, wheezing, cough and chest tightness. An asthma attack can be triggered by many things. Common triggers include the common cold, bronchitis, pneumonia, emotional upset and heavy exercise. In about half of adults with asthma, allergies to smoke, pollutants in the air, dust, mold, pollen and animal dander can cause an asthma attack. Skipping doses of daily asthma medicine can also bring on an asthma attack. Asthma can be controlled with proper medicines and decreased exposure to known allergens. HOME CARE: ?? Drink lots of water or other fluids (at least 10 glasses a day) during an attack. This will loosen lung secretions and make it easier to breathe. If you have heart or kidney disease, check with yourdoctor before you drink extra amounts of fluids. ?? Take prescribed medicine exactly at the times advised. If you have a hand- held inhaler or aerosolbreathing medicine, do not use it more than once every four hours, unless told to do so. If prescribed an antibiotic or prednisone, take all of the medicine even if you are feeling better after a few days. ?? Do not smoke. Avoid being exposed to the smoke of others. ?? Some persons with asthma are allergic to aspirin and non-steroidal medicines like ibuprofen (Motrin, Advil) and naproxen (Aleve, Naprosyn). Use these with caution. Acetaminophen (Tylenol) is safe touse. FOLLOW UP with your doctor, or as advised by our staff. Always bring all of your current medicines with you for your doctor to see. [NOTE: If you are age 65 or older, or if you have chronic asthma or COPD, we recommend a PNEUMOCOCCAL VACCINATION every five years and a yearly INFLUENZA VACCINATION (FLU SHOT) every . Ask your doctor about this. If you had an X-ray or EKG (cardiogram), it will be reviewed by a specialist. You will be notified of any new findings that may affect your care.] GET PROMPT MEDICAL ATTENTION if any of the following occur: ?? Increased wheezing or shortness of breath ?? Need to use your inhalers more often than usual without relief ?? Fever of 100.4??F (38??C) or higher, or as directed by your healthcare provider ?? Coughing up lots of dark-colored or bloody sputum (mucus) ?? Chest pain with each breath You do not start to improve within 24 hours ?? [id number] [facility], [address] [place] [address], [place] [address]. All rights reserved. This information is not intended as a substitute for professional medical care. Always follow your healthcare professional's instructions. ED Tests and Procedures: Order Status Discharge Prescriptions & Home Medications: Medication/Strength Dose Route Frequency Indications/Special Instructions/Comments/Notes predniSONE (predniSONE 20 mg oral tablet) 40 mg Oral once a day for 5 Days ipratropium-albuterol (DuoNeb 0.5 mg-2.5 mg/3 mL inhalation solution) 3 mL Nebulized inhalation fourtimes a day guaiFENesin (Robitussin) 100 mg Oral every 4 hours multivitamin, ( Multivitamins oral tablet) 1 tab(s) Oral once a day albuterol (Ventolin HFA 90 mcg/inh inhalation aerosol) 2 puff(s) Inhalation every 4 hours as needed for Shortness of breath / Wheezing ondansetron (Zofran 4 mg oral tablet) 4 mg Oral every 8 hours as needed for Nausea *montelukast (Singulair 10 mg oral tablet) 10 mg Oral every evening * You have let us know that [...] nurse or physician. Patient Signature or Responsible Alliance Party/Relationship Date Time Provider Signature Date Time [...] nurse or physician. Patient Signature or Responsible Alliance Party/Relationship Date Time Provider Signature Date Time This document has images extracted. Please consider using bepretty for all your patient education needs. Source: Instacart Document Id: [id number] K MASON Memo Burch RBessy - 04/10/2013 9:25 PM CST ED Depart Summary [facility] Emergency Department Clinical Discharge Summary PERSON INFORMATION Name CARTER LEI Age 32 Years 1980 12:00 AM Sex Female Language Beninese PCP ANDREW VERA DNP, SHIFT MGR Marital Status Single Visit Id Visit Reason asthma issues Specialty Enc Type Emergency Med Service Emergency Medicine Referred by Track Group [facility] ED Discharge 04/10/2013 9:10 PM Tracking Id [id number] Checkout 04/10/2013 9:10 PM Checkin 04/10/2013 6:48 PM Acuity 4 -Less Urgent Dispo Type * Discharged to Home or Self Care Arrival 04/10/2013 6:48 PM Reg Status LOS 000 02:22 Address: [address] [place] [phone] Comment: PROVIDER INFORMATION Provider Role Provider Contact Time JOSE TOSCANO ED Copra Processor 04/10/13 18:53 MEMO BURCH BRASS CHASER Nurse 04/10/13 18:57 DIAGNOSIS Asthmatic breathing Comment: PATIENT EDUCATION INFORMATION Instructions: ASTHMA, Acute (Adult) Follow up: With: Address: When: ANDREW VERA [address] [place] [phone] Business (1) Within As Needed Comments: Source: Instacart Document Id: [id number] K MASON documented in this encounter ED Notes Mauricio Perez M.D. - 04/10/2013 8:47 PM CST Asthmatic breathing Patient: CARTER LEI Age: 32 years Sex: Female : 1980 Author: MAURICIO PEREZ MD Attachments: None Basic Information Additional information: Chief Complaint from Nursing Triage Note : Chief Complaint Description. 04/10/2013 19:34 BRICK MASON Chief Complaint Description see triage note 04/10/2013 19:12 BRICK MASON Chief Complaint Description patient has had a cough and states asthma exacerbation was in the ED on the a21st of march History of Present Illness 32 F recently discovered about 6 weeks along, h/o asthma, 1/2 ppd smoking, and chronic cough. Treated with z-madelaine and levaquin within last month for presumed pneumonia, no change on cough. Cough is now the most concerning symptom as she is unable to sleep very long. Standard immunizations in the past. No other sick relatives and associations. No fevers/chills. Some left sided, posterior chestpain. Emesis occurs with coughing spell, but able to keep down food/drink. Duonebs every 3-4 hours no change in cough symptoms. Does feel worsening shortness of breath, given recent steroid burst, lastday is tomorrow. Has tried teas, cough drops, robitussin without success. Has smoked a long time andnot had a persistent cough. No active discolored nasal drainage, or thick sputum. Review of Systems Constitutional symptoms: Negative except as documented in HPI. Health Status Allergies: . Allergic Reactions (All) Severity Not Documented Cipro- No reactions were documented. Nonallergic Reactions (All) Moderate Augmentin XR- Gi distress. Severity Not Documented Silicone- No reactions were documented. Canceled/Inactive Reactions (All) Severity Not Documented Augmentin- Diarrhea, stomach ache. Past Medical/ Family/ Social History Social history. Physical Examination Vital Signs: Vital Signs, 04/10/2013 19:12 BRICK MASON Temperature Core 36.6 DegC Peripheral Pulse Rate 121 /min HI Respiratory Rate 20 /min SpO2 98 % Systolic Blood Pressure 121 mmHg Diastolic Blood Pressure 76 mmHg Mean Arterial Pressure 91 mmHg BP Location Right upper SpO2. 04/10/2013 19:12 BRICK MASON SpO2 98 % Gen: alert, oriented, able to speak sentences CV: tachycardic, regular Resp: small crackles at bases otherwise no wheezes at present Ext: noncyanotic Reexamination/ Reevaluation Vital signs SpO2 04/10/2013 19:12 BRICK MASON SpO2 98 % Impression and Plan #1 Asthma exacerbation #2 Chronic cough #3 Nicotine Dependence Plan: 1) Refill Robitussin for cough suppression 2) Finish prednisone taper, ends tomorrow 3) Duoneb and Lidocaine/decadron nebulizer here 4) Continue oropharynx hygiene protocol with addition of cepacol lozenge or spray to decrease irritation 5) Discussed the importance of smoking cessation for multiple reasons as this may decrease the coughsymptoms, better health for baby, financially helpful. She states that she will attempt this at thistime. Electronically Signed By: MAURICIO PEREZ MD On: 04/10/2013 09:01 PM Source: Instacart Document Id: [id number]} K MASON Memo Burch RLashawnN. - 04/10/2013 8:44 PM CST ED Pain Assessment ED Pain Assessment Entered On: 04/10/2013 20:44 BRICK MASON Performed On: 04/10/2013 20:44 BRICK MASON by MEMO BURCH RN Pain Assessment Pain Symptoms : No MEMO BURCH RN - 04/10/2013 20:44 BRICK MASON Source: Instacart Document Id: [id number] BRICK MASON!3 K MASON Memo Burch RLashawnN. - 04/10/2013 8:43 PM CST ED Disposition Summary ED Disposition Summary Entered On: 04/10/2013 20:44 BRICK MASON Performed On: 04/10/2013 20:43 BRICK MASON by MEMO BURCH RN ED Disposition Summary Accompanied By : Mother Mode of Discharge : Ambulatory Transportation : Private vehicle Printed Discharge Instructions Given to Patient : Yes Patient Status at Discharge from ED : Improved MEMO BURCH RN - 04/10/2013 20:43 BRICK MASON Source: [facility] POWERCHART Document Id: [id number] BRICK MASON!7 K MASON Memo Burch R.N. - 04/10/2013 7:34 PM CST ED Primary Assessment Document Has Been Updated ED Primary Assessment Entered On: 04/10/2013 19:40 BRICK MASON Performed On: 04/10/2013 19:34 BRICK MASON by MEMO BURCH RN Reason For Visit (As Of: 04/10/2013 19:40:40 BRICK MASON) Problems(Active) Acne vulgaris (ICD-9-CM :706.1 ) Name of Problem: Acne vulgaris ; Recorder: ALLEN BEDOYA RN; Confirmation: Confirmed ; Classification: Nursing ; Code: 706.1 ; Contributor System: XillianTV ; Last Updated: 12/17/2010 11:55 CDT ; [...] Medical ; Code: 346.90 ; Contributor System: [employer] ; Last Updated: 04/12/2011 17:14 BRICK MASON ; Life Cycle Date: 06/10/2010 ; Life Cycle Status: Active ; Responsible Provider: SANDRINE FULLER RN; Vocabulary: ICD-9-CM ; Comments: 06/10/2010 16:12 - SANDRINE FULLER RN no known date of onset Tobacco Use Disorder (ICD-9-CM :305.1 ) Name of Problem: Tobacco Use Disorder ; Onset Date: 08/22/2011 ; Recorder: JANAY WAYNE RN, PHYSICIAN AIDE; Confirmation: Confirmed ; Classification: Medical ; Code: 305.1 ; Last Updated: 08/22/2011 13:54 CDT ; Life Cycle Status: Active ; Responsible Provider: JANAY WAYNE RN, CNP; Vocabulary: ICD-9-CM Diagnoses(Active) Asthmatic breathing Date: 04/10/2013 ; Diagnosis Type: Reason For Visit ; Confirmation: Complaint of; Clinical Dx: Asthmatic breathing ; Classification: Medical ; Clinical Service: Emergency medicine ; Code: PNED ; Probability: 0 ; Diagnosis Code: [id number] Triage Chief Complaint Description : see triage note Mode of Arrival ED : Private vehicle Track : Medical Languages : Beninese Treatments Prior to Arrival : Nebulizer MEMO BURCH RN - 04/10/2013 19:34 BRICK MASON Pain Assessment Pain Symptoms : No MEMO BURCH RN - 04/10/2013 19:34 BRICK MASON ED Physician Notification Time ED Physician Notification Time : 04/10/2013 19:00 BRICK MASON MEMO BURCH RN - 04/10/2013 19:34 BRICK MASON MORALES DCP GENERIC CODE Tracking Acuity : 4 -Less Urgent Tracking Group : [facility] ED MEMO BURCH RN - 04/10/2013 19:34 BRICK MASON Allergy (As Of: 04/10/2013 19:40:40 BRICK MASON) Allergies (Active) Augmentin XR Estimated Onset Date: Unspecified ; Reactions: GI distress ; Created By: MYRNA EDMONDS MD; Reaction Status: Active ; Category: Drug ; Substance: Augmentin XR ; Type: Intolerance ; Severity: Moderate ; Updated By: MYRNA EDMONDS MD; Source: Patient ; Reviewed Date: 04/09/2013 7:27 BRICK MASON Cipro Estimated Onset Date: Unspecified ; Created By: YASMANY CAVANAUGH RN; Reaction Status: Active ; Category: Drug ; Substance: Cipro ; Type: Allergy ; Updated By: YASMANY CAVANAUGH RN; Reviewed Date: 04/09/2013 7:27 BRICK MASON Silicone Estimated Onset Date: Unspecified ; Created By: JENNIFER FRANCIS RN; Reaction Status: Active ; Category: Drug ; Substance: Silicone ; Type: Sensitivity ; Updated By: JENNIFER FRANCIS RN; Reviewed Date: 04/09/2013 7:27 BRICK MASON ID Screen Drug Resistant Organism : No MEMO BURCH RN - 04/10/2013 19:34 BRICK MASON Immunizations Influenza : This year MEMO BURCH RN - 04/10/2013 19:34 BRICK MASON Respiratory Airway : Patent Respirations : Unlabored Respiratory Pattern : Regular Oxygen Therapy : Room air Respiratory Detailed Assessment : Yes MEMO BURCH RN - 04/10/2013 19:34 BRICK MASON Resp Detailed Respiratory Patient Stated Symptoms : Shortness of breath Distress : Mild Cough : Hacking, Persistent, Strong MEMO BURCH RN - 04/10/2013 19:34 BRICK MASON Breath Sounds Assessment Grid BUL : Clear BLL : Clear ALEX : Clear RUL : Clear RML : Clear LLL : Clear RLL : Clear MEMO BURCH RN - 04/10/2013 19:34 BRICK MASON Respiratory Note : persistant cough no production MEMO BURCH RN - 04/10/2013 19:34 BRICK MASON Cardiovascular Heart Rhythm : Regular Skin Color : Normal for ethnicity Skin Description : Dry Skin Temperature : Warm MEMO BURCH RN - 04/10/2013 19:34 BRICK MASON Neurological Last Well Time Known : Not applicable Level of Consciousness : Alert Orientation : Oriented x 3 Characteristics of Speech : Appropriate for age Neuro Patient Stated Symptoms : None Gait : Steady MEMO BURCH RN - 04/10/2013 19:34 BRICK MASON ED Psychosocial Affect/Behavior : Cooperative, Appropriate Domestic Abuse Concerns : None Emotional Support Available : Yes MEMO BURCH RN - 04/10/2013 19:34 BRICK MASON Gastrointestinal Nutrition ED : Adequate MEMO BURCH RN - 04/10/2013 19:34 BRICK MASON /OB Assessment Note : patient is currently 6 weeks pregnent MEMO BURCH RN - 04/10/2013 19:34 BRICK MASON Musculoskeletal Fall Prevention Education Provided : NA MEMO BURCH RN - 04/10/2013 19:34 BRICK MASON Social Habits Tobacco Use/Currently Using : Yes Exposure to Tobacco Smoke : Patient smokes Smoking Status : Current every day smoker MEMO BURCH RN - 04/10/2013 19:34 BRICK MASON Tobacco Use Grid Type : Cigarettes Cigarette Use Packs/Day : 1 MEMO BURCH RN - 04/10/2013 19:34 BRICK MASON Alcohol Use Grid Alcohol Use : Other: occasional No MEMO BURCH RN - 04/10/2013 19:34 BRICK MASON MEMO BURCH RN - 04/10/2013 19:34 BRICK MASON Recreational Drug Use Grid Drug Use : None MEMO BURCH RN - 04/10/2013 19:34 BRICK MASON Source: [facility] Envo[employer]cher Document Id: [id number] BRICK MASON!76 K MASON Memo Burhc RBessy - 04/10/2013 7:12 PM CST ED Triage Assessment Document Has Been Updated ED Triage Assessment Entered On: 04/10/2013 19:18 BRICK MASON Performed On: 04/10/2013 19:12 BRICK MASON by MEMO BURCH RN Reason For Visit (As Of: 04/10/2013 19:20:52 BRICK MASON) Problems(Active) Acne vulgaris (ICD-9-CM :706.1 ) Name of Problem: Acne vulgaris ; Recorder: ALLEN BEDOYA RN; Confirmation: Confirmed ; Classification: Nursing ; Code: 706.1 ; Contributor System: XillianTV ; Last Updated: 12/17/2010 11:55 CDT ; [...] Medical ; Code: 346.90 ; Contributor System: [employer]illian[employer] ; Last Updated: 04/12/2011 17:14 BRICK MASON ; Life Cycle Date: 06/10/2010 ; Life Cycle Status: Active ; Responsible Provider: SANDRINE FULLER RN; Vocabulary: ICD-9-CM ; Comments: 06/10/2010 16:12 - SANDRINE FULLER RN no known date of onset Tobacco Use Disorder (ICD-9-CM :305.1 ) Name of Problem: Tobacco Use Disorder ; Onset Date: 08/22/2011 ; Recorder: JANAY WAYNE RN, CNP; Confirmation: Confirmed ; Classification: Medical ; Code: 305.1 ; Last Updated: 08/22/2011 13:54 CDT ; Life Cycle Status: Active ; Responsible Provider: JANAY WAYNE RN, CNP; Vocabulary: ICD-9-CM Diagnoses(Active) Asthmatic breathing Date: 04/10/2013 ; Diagnosis Type: Reason For Visit ; Confirmation: Complaint of; Clinical Dx: Asthmatic breathing ; Classification: Medical ; Clinical Service: Emergency medicine ; Code: PNED ; Probability: 0 ; Diagnosis Code: [id number] Triage Chief Complaint Description : patient has had a cough and states asthma exacerbation was in the ED on the a21st of march Information Given By : Patient Accompanied By : Mother Mode of Arrival ED : Private vehicle Track : Medical Languages : Beninese Patient Informed of Triage Location : Emergency department Vital Signs Assessed : Yes Treatments Prior to Arrival : Nebulizer MEMO BURCH RN - 04/10/2013 19:12 BRICK MASON Vital Signs Temperature Core : 36.6 DegC(Converted to: 97.9 DegF) Peripheral Pulse Rate : 121 /min (HI) Respiratory Rate : 20 /min Systolic Blood Pressure : 121 mmHg Diastolic Blood Pressure : 76 mmHg NIBP Mean : 91 mmHg BP Location : Right upper extremity SpO2 : 98 % Oxygen Saturation Monitoring Frequency : Intermittent Oxygen Therapy : Room air MEMO BURCH RN - 04/10/2013 19:12 BRICK MASON Pain Assessment Pain Symptoms : No MEMO BURCH RN - 04/10/2013 19:20 BRICK MASON ED Physician Notification Time ED Physician Notification Time : 04/10/2013 19:00 BRICK MASON MEMO BURCH RN - 04/10/2013 19:12 BRICK MASON MORALES MORALES Level 1 : No MORALES Level 2 : No MORALES Level 3 : One MEMO BURCH RN - 04/10/2013 19:12 BRICK MASON DCP GENERIC CODE Tracking Group : [facility] ED Tracking Acuity : 4 -Less Urgent MEMO BURCH RN - 04/10/2013 19:12 BRICK MASON Allergy (As Of: 04/10/2013 19:20:52 BRICK MASON) Allergies (Active) Augmentin XR Estimated Onset Date: Unspecified ; Reactions: GI distress ; Created By: MYRNA EDMONDS MD; Reaction Status: Active ; Category: Drug ; Substance: Augmentin XR ; Type: Intolerance ; Severity: Moderate ; Updated By: MYRNA EDMONDS MD; Source: Patient ; Reviewed Date: 04/09/2013 7:27 BRICK MASON Cipro Estimated Onset Date: Unspecified ; Created By: YASMANY CAVANAUGH RN; Reaction Status: Active ; Category: Drug ; Substance: Cipro ; Type: Allergy ; Updated By: YASMANY CAVANAUGH RN; Reviewed Date: 04/09/2013 7:27 BRICK MASON Silicone Estimated Onset Date: Unspecified ; Created By: JENNIFER FRANCIS RN; Reaction Status: Active ; Category: Drug ; Substance: Silicone ; Type: Sensitivity ; Updated By: PENNY, JENNIFER C RN; Reviewed Date: 04/09/2013 7:27 BRICK MASON ID Screen Drug Resistant Organism : No MEMO BURCH RN - 04/10/2013 19:12 BRICK MASON Source: [facility] Envo[employer]cher Document Id: [id number] BRICK MASON!3 K MASON Memo Burch R.N. - 04/10/2013 6:58 PM CST ED Triage Assessment Document Has Been Updated ED Triage Assessment Entered On: 04/10/2013 18:58 BRICK MASON Performed On: 04/10/2013 18:58 BRICK MASON by MEMO BURCH RN Reason For Visit (As Of: 04/10/2013 19:20:27 BRICK MASON) Problems(Active) Acne vulgaris (ICD-9-CM :706.1 ) Name of Problem: Acne vulgaris ; Recorder: ALLEN BEDOYA RN; Confirmation: Confirmed ; Classification: Nursing ; Code: 706.1 ; Contributor System: [employer] ; Last Updated: 12/17/2010 11:55 CDT ; [...] Active ; Responsible Provider: JANAY WAYNE RN, PHYSICIAN AIDE; Vocabulary: ICD-9-CM Migraine headache (ICD-9-CM :346.90 ) Name of Problem: Migraine headache ; Onset Date: 04/17/1989 ; Recorder: SANDRINE FULLER RN; Confirmation: Confirmed ; Classification: Medical ; Code: 346.90 ; Contributor System: Power[employer] ; Last Updated: 04/12/2011 17:14 BRICK MASON ; Life Cycle Date: 06/10/2010 ; Life Cycle Status: Active ; Responsible Provider: SANDRINE FULLER RN; Vocabulary: ICD-9-CM ; Comments: 06/10/2010 16:12 - SANDRINE FULLER RN no known date of onset Tobacco Use Disorder (ICD-9-CM :305.1 ) Name of Problem: Tobacco Use Disorder ; Onset Date: 08/22/2011 ; Recorder: JANAY WAYNE RN, PHYSICIAN AIDE; Confirmation: Confirmed ; Classification: Medical ; Code: 305.1 ; Last Updated: 08/22/2011 13:54 CDT ; Life Cycle Status: Active ; Responsible Provider: JANAY WAYNE RN, PHYSICIAN AIDE; Vocabulary: ICD-9-CM Diagnoses(Active) Asthmatic breathing Date: 04/10/2013 ; Diagnosis Type: Reason For Visit ; Confirmation: Complaint of; Clinical Dx: Asthmatic breathing ; Classification: Medical ; Clinical Service: Emergency medicine ; Code: PNED ; Probability: 0 ; Diagnosis Code: [id number] Triage Mode of Arrival ED : Private vehicle Track : Medical Languages : Beninese Treatments Prior to Arrival : Nebulizer MEMO BURCH RN - 04/10/2013 19:19 BRICK MASON Pain Assessment Pain Symptoms : No MEMO BURCH RN - 04/10/2013 19:19 BRICK MASON ED Physician Notification Time ED Physician Notification Time : 04/10/2013 19:00 BRICK MASON MEMO BURCH RN - 04/10/2013 19:19 BRICK MASON MORALES DCP GENERIC CODE Tracking Acuity : 4 -Less Urgent Tracking Group : [facility] ED MEMO BURCH RN - 04/10/2013 19:19 BRICK MASON Allergy (As Of: 04/10/2013 19:20:27 BRICK MASON) Allergies (Active) Augmentin XR Estimated Onset Date: Unspecified ; Reactions: GI distress ; Created By: MYRNA EDMONDS MD; Reaction Status: Active ; Category: Drug ; Substance: Augmentin XR ; Type: Intolerance ; Severity: Moderate ; Updated By: MYRNA EDMONDS MD; Source: Patient ; Reviewed Date: 04/09/2013 7:27 BRICK MASON Cipro Estimated Onset Date: Unspecified ; Created By: YASMANY CAVANAUGH RN; Reaction Status: Active ; Category: Drug ; Substance: Cipro ; Type: Allergy ; Updated By: YASMANY CAVANAUGH RN; Reviewed Date: 04/09/2013 7:27 BRICK MASON Silicone Estimated Onset Date: Unspecified ; Created By: JENNIFER FRANCIS RN; Reaction Status: Active ; Category: Drug ; Substance: Silicone ; Type: Sensitivity ; Updated By: JENNIFER FRANCIS RN; Reviewed Date: 04/09/2013 7:27 BRICK MASON ID Screen Drug Resistant Organism : No MEMO BURCH RN - 04/10/2013 19:19 BRICK MASON Source: Inst[employer] Document Id: [id number] BRICK MASON!16 K MASON documented in this encounter Miscellaneous Notes Miscellaneous - Memo Burch, RLashawnN. - 04/10/2013 8:44 PM CST Valuables/Belongings Valuables/Belongings Entered On: 04/10/2013 20:44 BRICK MASON Performed On: 04/10/2013 20:44 BRICK MASON by MEMO BURCH RN Valuables/Belongings Home Medication Disposition : None brought in with patient MEMO BURCH RN - 04/10/2013 20:44 BRICK MASON Source: [facility] Envoimo[employer]cher Document Id: [id number] BRICK MASON!3 K MASON Miscellaneous - Memo Burch R.N. - 04/10/2013 8:15 PM CST RT Aerosol Therapy RT Aerosol Therapy Entered On: 04/10/2013 21:54 BRICK MASON Performed On: 04/10/2013 20:15 BRICK MASON by MEMO BURCH RN Aerosol Therapy Done By : Nursing Therapy Treatment : Subsequent Indication : Cough Aerosol Delivery Device : Small volume nebulizer Aerosol Treatment Route : T-Piece Patient Participation in Treatment : Cooperative Patient Effort : MEMO Love RN - 04/10/2013 21:53 BRICK MASON [facility] Document Id: [id number] BRICK MASON!9 K MASON Jose Luis - Memo Burch R.N. - 04/10/2013 7:50 PM CST RT Aerosol Therapy RT Aerosol Therapy Entered On: 04/10/2013 21:53 BRICK MASON Performed On: 04/10/2013 19:50 BRICK MASON by MEMO BURCH RN Aerosol Therapy Done By : Nursing Therapy Treatment : Initial Indication : Cough Aerosol Delivery Device : Small volume nebulizer Aerosol Treatment Route : T-Piece Patient Participation in Treatment : Cooperative Patient Effort : MEMO Love RN - 04/10/2013 21:50 BRICK MASON PreTx/Assess Peripheral Pulse Rate : 112 /min (HI) Respiratory Rate : 20 /min SpO2 : 98 % MEMO BURCH RN - 04/10/2013 21:50 BRICK MASON Breath Sounds Assessment Grid BUL : Clear BLL : Clear ALEX : Clear RUL : Clear RML : Clear LLL : Clear RLL : Clear MEMO BURCH RN - 04/10/2013 21:50 BRICK MASON Post Tx Assess Respiratory Rate : 20 /min SpO2 : 98 % Spontaneous Cough : Yes Cough : Persistent Sputum Amount : None MEMO BURCH RN - 04/10/2013 21:50 BRICK MASON Source: [employer] Document Id: [id number] BRICK MASON!27 K MASON Memo Ha R.N. - 04/10/2013 6:48 PM CST Facility Charge Ticket 2.0 11.0 DX Facility Charge Ticket 2.0 11.0 DX Entered On: 04/10/2013 20:44 BRICK MASON Performed On: 04/10/2013 18:48 BRICK MASON by MEMO BURCH RN Facility Charge Ticket 2.0 11.0 DX ED Other Charges : Standard ED Encounter TVL Level Translated RTF : Asthmatic breathing TVL:5 TVL Level for Facility Charge Ticket : Level 5 Arrival Mode Calc : 8,193 Mode of Arrival ED : Private vehicle [facility] Mode of Arrival Interpreted : Standard Lynx Process Management : None Lynx Order Management : None 30 Minutes Critical Care : No Nursing Notes RTF : Triage Forms ED Triage Assessment,04/10/13 19:12,MEMO BURCH RN ED Triage Assessment,04/10/13 18:58,MEMO BURCH RN Nursing Notes ED Primary Assessment,04/10/13 19:34,MEMO BURCH RN ED Pain Assessment,04/10/13 20:44,MEMO BURCH RN Lynx Nursing Assessment : Triage and 1-2 nursing assessments Lynx Disposition : Discharge Lynx Total Points with Diagnosis Control : 11 Lynx Visit Level : 42520 Level 4 Treatments Prior to Arrival : Nebulizer MEMO BURCH RN - 04/10/2013 20:44 BRICK MASON Source: [facility] POWERCHART Document Id: [id number] BRICK MASON!17 K MASON documented in this encounter Plan of Treatment Not on filedocumented as of this encounter Visit Diagnoses Not on filedocumented in this encounter
--- OUTSIDE RECORDS SUMMARY | 2022-03-16 15:08 | XMS_ITS | Encounter Summary ---
:1980 Author Organization [facility] Er Address [address] [place] [address] Care Team Providers Name Role Phone Unavailable Primary Care Provider Unavailable Encounter Details Date Type Department Care Team Description 04/19/2012 Hospital Encounter HX [facility] Andrew Vera, LO, C.N.P., D. N.P. [address] [place] [address] (Wo rk) Social History Tobacco [...] Reading Time Taken Comments Blood Pressure 100/60 04/19/2012 1:52 PM STOCK MIXER Pulse 97 04/19/2012 1:52 PM STOCK MIXER Temperature - - Respiratory Rate 20 04/19/2012 1:52 PM STOCK MIXER Oxygen Saturation - - Inhaled Oxygen Concentration - - Weight 81.5 kg (179 lb 10.8 oz) 04/19/2012 1:52 PM STOCK MIXER Height - - Body Mass Index 32.9 04/15/2012 6:55 PM STOCK MIXER documented in this encounter Progress Notes Andrew Vera D.N.P., C.N.P. - 04/19/2012 1:43 PM CST [id number] CHIEF COMPLAINT/REASON FOR VISIT Migraine. HISTORY OF PRESENT ILLNESS The patient is a 31-year-old female that presents to the clinic today with a chief complaint of migraine. She does report that approximately 4 days ago she was seen in the emergency room due to the same symptoms. She indicates that her Topamax usually does help but indicates that she just had an acuteonset of URI like symptoms in the past 4 days duration. She reports her daughter has similar URI like symptoms as well. She indicates that she has been using her Zofran as directed but indicates that she continues having some nausea. She comes in today for further evaluation. She is also wondering with increased anxiety due to her working situation if she could maybe start on something to overall help with her anxiety levels. She indicates that she does not want anything that would impair her ability to function, but something just more so daily. She otherwise indicates that she is not having any other further concerns or issues at this time. PAST MEDICAL/SURGICAL HISTORY Reviewed. Please see chart. FAMILY HISTORY Reviewed. Please see chart. CURRENT MEDICATIONS Reviewed. Please see chart. ALLERGIES Reviewed. Please see chart. PHYSICAL EXAMINATION OBJECTIVE: Patient is alert/oriented x 3. Patient is also noted to have photophobia and phonophobia reported on examination. HEAD: Normocephalic/atraumatic. PUPILS: GLEN. OROPHARYNX: Sells and moist. TMs: Bilateral TMs are clear, bony landmarks noted and WNL. NARES: Bilateral nares are erythematous and enlarged, though clear nasal secretions are noted bilaterally. NECK: No anterior/posterior lymphadenopathy noted. HEART: Regular S1, S2, no murmurs, rubs or gallops noted. LUNGS: Clear to auscultation, no prolonged expiratory phases, wheezing, rales or rhonchi noted. SKIN: Without unusual rashes or suspicious lesions CLINIC COURSE OF TREATMENT: After obtaining the patient's consent, the patient was given 60 mg of Toradol IM times 1 in which she tolerated well. No reactions were noted. IMPRESSION/REPORT/PLAN 1. URI 2. Migraine. PLAN: 1. URI: Presently, at this time, I indicated her symptoms are most likely a viral etiology and should resolve within the next days on their own. Recommend humidified air and encouraging fluid intake and advised to follow up if the symptoms worsen or continue. Patient stated she understands this plan. 2. Migraine headache: Presently, at this time, I did opt to continue her on her Topamax, though we did decrease her dose for potential side effects to 50 mg by mouth twice a day. She was previously at 100 mg by mouth in the morning and 50 mg by mouth in the evening. She indicated she had some mild fatigue from the 100 mg dose. Hopefully, we will continue to see prevention of her migraine headaches with this treatment plan, though also note that prevention of sinus congestion will also be mathias to prevent onset of her migraine headaches. The patient was also given a prescription for ketorolac 10 mg tablets in which she is instructed to take one tablet by mouth up to four times a day as needed for migraine for a max of 40 mg in 24 hours, #30 tablets with no refills were authorized. She is advised to follow up if her symptoms worsen or continue. Patient was also started on Zoloft 50 mg tablets to help with some anxiety to take one tablet by mouth daily though instructed her that in order to have true evaluation of this medication to see if it is helping with her symptoms, it would most likely be noted after 3 weeks of initiating medication therapy. Patient stated she understands this plan as she otherwise denied having any other further questions or concerns. Patient ambulated out of the clinic in no acute distress. Andrew Vera D.N.P./Estefani Electronically Signed By: ANDREW VERA DNP, FNP On: 04/24/2012 08:03 PM Source: [facility] MHSDOLBEYNONRADSYS Document Id: [id number] K MIXER documented in this encounter Miscellaneous Notes Miscellaneous - Andrew Vera D.N.P., Edward.N.P. - 04/19/2012 2:46 PM STOCK MIXER Ambulatory Patient Summary [address] [address] Visit Information Name: CARTER MENSAH [facility] Er Number: [id number] Current Date: 04/19/2012 14:46:54 Physicians Attending Provider: ANDREW VERA DNP, FNP Primary Care Provider: ANDREW VERA DNP, FNP Your Medications Here is a list of your medications. It is important to take your medications as directed. Use a pillbox or chart to help remind you to take your medications. Please let your doctor or nurse know if you have problems taking your medications. Medication/Strength Dose Route Frequency Indications/Special Instructions/Comments ketorolac (ketorolac 10 mg oral tablet) 10 mg Oral four times a day as needed for Migraine headache (not to exceed 40 mg/day) sertraline (Zoloft 50 mg oral tablet) 50 mg Oral once a day topiramate (Topamax 50 mg oral tablet) 50 mg Oral two times a day Misc Prescription (Misc Prescription) Wal-zyr (sinus) Oral once a day ondansetron (Zofran 4 mg oral tablet) 4 mg Oral every 8 hours as needed for Nausea ibuprofen (ibuprofen 200 mg oral tablet) 800 mg Oral as needed as needed for headache DO NOT take onthe same day with naproxen. fluticasone nasal (Flonase 50 mcg/inh nasal spray) 2 spray(s) Nasal two times a day as needed for Nasal congestion naproxen (naproxen) Oral Pain DO NOT take [...] Time Location Reason Provider No Appointments found Your Goals/Additional instructions: Source: [facility] [employer] Document Id: [id number] K MIXER Miscellaneous - Andrew Vera, Tristin.N.P., C.N.P. - 04/19/2012 2:46 PM STOCK MIXER Ambulatory Depart Summary [address] [address] Visit Information Name: CARTER MENSAH [facility] Er Number: [id number] Visit Date: 04/19/2012 14:46:54 Attending Provider: ANDREW VERA DNP, FNP Primary [...] your medications. Medication/Strength Dose Route Frequency Indications/Special Instructions/Comments ketorolac (ketorolac 10 mg oral tablet) 10 mg Oral four times a day as needed for Migraine headache (not to exceed 40 mg/day) sertraline (Zoloft 50 mg oral tablet) 50 mg Oral once a day topiramate (Topamax 50 mg oral tablet) 50 mg Oral two times a day Misc Prescription (Misc Prescription) Wal-zyr (sinus) Oral once a day ondansetron (Zofran 4 mg oral tablet) 4 mg Oral every 8 hours as needed for Nausea ibuprofen (ibuprofen 200 mg oral tablet) 800 mg Oral as needed as needed for headache DO NOT take onthe same day with naproxen. fluticasone nasal (Flonase 50 mcg/inh nasal spray) 2 spray(s) Nasal two times a day as needed for Nasal congestion naproxen (naproxen) Oral Pain DO NOT take on the same day you take ibuprofen. Attention: If you have any medications at home that are not on this list, DO NOT take them until youcontact your provider for clarification. Additional Information: Source: [facility] POWERCHART Document Id: [id number] K MIXER Miscellaneous - Hunter Branch L.P.N. - 04/19/2012 1:52 PM CST Adult Reporting Coordinator Intake/History Adult Reporting Coordinator Intake/History Entered On: 04/19/2012 13:59 STOCK MIXER Performed On: 04/19/2012 13:52 STOCK MIXER by HUNTER BRANCH LPN Intake Chief Complaint : STates she was in the ER on Sun with Migraine of the sinus's. Worse when she sits up. On Mon. headache cont. Vomited on Mon. and did not go to work. Off today also. pain at 3-4. Also has cough that is making her throat sore. Taking Wal-Zyr -sinus Ambulatory Intake Additional Information : discuss Topomax not working on migraine Temperature Core : 36.6C(Converted to: 97.9DegF) Peripheral Pulse Rate : 97/min Respiratory Rate : 20/min Heart Rhythm : Regular Systolic Blood Pressure : 100mmHg Diastolic Blood Pressure : 60mmHg NIBP Mean : 73mmHg BP Location : Right upper extremity Blood Pressure Cuff Size : Regular SpO2 : 98% Actual Weight : 81.5kg(Converted to: 179lb 11oz) Weight Source : Standing scale Dosing Weight Clinic : 81.50kg HUNTER BRANCH [facility] - 04/19/2012 13:52 STOCK MIXER Subjective Pain Symptoms : Yes HUNTER BRANCH [facility] - 04/19/2012 13:52 STOCK MIXER Pain Pain Assessment Grid Pain 1 Location : Other: facial sinus's Intensity : 4 SARINA HUNTER [facility] 04/19/2012 13:52 STOCK MIXER Dependent Habits Tobacco Use/Currently Using : Yes Exposure to Tobacco Smoke : Patient smokes Smoking Status : Current every day smoker SARINA HUNTER [facility] - 04/19/2012 13:52 STOCK MIXER Tobacco Use Grid Type : Cigarettes Cigarette Use Packs/Day : 0.5 MARSHAGENEHUNTER [facility] 04/19/2012 13:52 STOCK MIXER Caffeine Use Grid Caffeine Use : Current Type : Soft drinks Frequency : Daily SARINAHUNTER [facility] - 04/19/2012 13:52 STOCK MIXER Recreational Drug Use Grid Drug Use : None MARSHAGENEHUNTER [facility] 04/19/2012 13:52 STOCK MIXER Allergy Allergies (Active) Augmentin XR Estimated Onset Date: Unspecified ; Reactions: GI distress ; Created By: MYRNA EDMONDS MD; Reaction Status: Active ; Category: Drug ; Substance: Augmentin XR ; Type: Intolerance ; Severity: Moderate ; Updated By: MYRNA EDMONDS MD; Source: Patient ; Reviewed Date: 04/19/2012 13:47 STOCK MIXER Cipro Estimated Onset Date: Unspecified ; Created By: YASMANY CAVANAUGH RN; Reaction Status: Active ; Category: Drug ; Substance: Cipro ; Type: Allergy ; Updated By: YASMANY CAVANAUGH RN; Reviewed Date: 04/19/2012 13:47 STOCK MIXER Silicone Estimated Onset Date: Unspecified ; Created By: JENNIFER FRANCIS RN; Reaction Status: Active ; Category: Drug ; Substance: Silicone ; Type: Sensitivity ; Updated By: JENNIFER FRANCIS RN; Reviewed Date: 04/19/2012 13:47 STOCK MIXER Source: [facility] POWERCHART Document Id: [id number] K MIXER documented in this encounter Plan of Treatment Not on filedocumented as of this encounter Visit Diagnoses Not on filedocumented in this encounter
--- OUTSIDE RECORDS SUMMARY | 2022-03-16 15:08 | XMS_ITS | Encounter Summary ---
:1980 Author Organization [facility] Address [address] [place] [address] Care Team Providers Name Role Phone Unavailable Primary Care Provider Unavailable Encounter Details Date Type Department Care Team Description 08/23/2012 Hospital Encounter HX [facility] Andrew Vera, LO, C.N.P., D. N.P. [address] [place] [address] (Wo rk) Social History Tobacco [...] Sign Reading Time Taken Comments Blood Pressure 104/70 08/23/2012 1:41 PM CDT Pulse 76 08/23/2012 1:41 PM CDT Temperature - - Respiratory Rate 16 08/23/2012 1:41 PM CDT Oxygen Saturation - - Inhaled Oxygen Concentration - - Weight 79.9 kg (176 lb 2.4 oz) 08/23/2012 1:41 PM CDT Height 157.9 cm (5' 2.17) 08/23/2012 1:41 PM CDT Body Mass Index 32.05 08/23/2012 1:41 PM CDT documented in this encounter H&P Notes Andrew Vera, Tristin.N.P., C.N.P. - 08/23/2012 1:39 PM CDT [id number] CHIEF COMPLAINT/REASON FOR VISIT Routine physical examination. HISTORY OF PRESENT ILLNESS The patient is a 32-year-old female that presents to the clinic today for a routine physical examination. She does require refills of her allergy medication she has been on Singulair in the past and also requires a refill of her Ketoralac as she will use this as needed for migraines. She is also currently on Topamax which does with her migraines but she indicates that just significantly cutting down her caffeine intake most likely would cut the onset of her migraines in half. She also indicates thatshe is trialing some smoking cessation at this time. She otherwise indicates that she is not having any other further concerns or issues at this time. PAST MEDICAL/SURGICAL HISTORY Past medical history includes: Abnormal Pap in 2009. Acne vulgaris. Allergic rhinitis since 2011. Anxiety since 2011. Migraine headaches since 1989. History of smoking. Past surgical history includes: Endometrial biopsy in 2009. Sinus surgery in 2000. Tonsillectomy and adenoidectomy in 1994. FAMILY HISTORY Past family history includes a mother with a history of type 2 diabetes mellitus and liver failure. Father with a history of hypertension and headaches. One sister with a history of asthma. SOCIAL HISTORY Patient is presently single, is a 3, para 1,. 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 She is currently smoking half a pack per but working on quitting. She has occasional alcohol intake. She denies any illicit drug usage. ALLERGIES Augmentin. Cipro. Silicone. CURRENT MEDICATIONS Topamax 100 mg by mouth daily. Singulair 10 mg by mouth daily. Ketorolac 10 mg by mouth up to four times day as needed for migraines for a max of 40 mg in 24 hours. Ibuprofen [id number] as directed on package and not to be taken with Ketorolac as needed for migraines. Flonase nasal spray 50 mcg per inhalation 2 sprays in each nostril twice a day. Lashay 180 mg by mouth daily if not using Singulair. Zofran 4 mg by mouth at onset of nausea before migraine. VITAL SIGNS Temperature 36.9 degrees centigrade, pulse 76, respirations 16, blood pressure 104/70, height 157.9 cm, weight 179.9 kg, BMI 32.05. SYSTEMS REVIEW GENERAL: Denies extreme fatigue, unexplained weight loss/gain or concerns for depression, thoughts of suicide, trouble concentrating or memory concerns. HEENT: Denies visual changes/disturbances, hearing changes/disturbances, difficulty chewing/swallowing. HEART: Denies palpitations, chest pain, shortness of breath with and without exertion. GASTROINTESTINAL: Denies abdominal pain, difficulty having bowel movements or frequent episodes of diarrhea. GENITOURINARY: Denies urgency, frequency, or burning with urination. Denies coital or post coital pain or other coital concerns. MUSCULOSKELETAL: Denies joint pain or muscle fatigue. NEURO: Denies frequent headaches, dizziness or numbness/tingling of the extremities. PHYSICAL EXAMINATION OBJECTIVE: Patient is alert/oriented x 3. PSYCH: Patient's speech is focused and well directed, affect is appropriate. HEAD: Normocephalic/atraumatic. PUPILS: GLEN. OROPHARYNX: Boronda and moist. TMS: Bilateral TMs are clear, bony landmarks noted and WNL. NARES: Patent, no erythema or drainage noted. NECK: No anterior/posterior lymphadenopathy or thyromegaly noted. HEART: Regular S1, S2, no murmurs, rubs or gallops noted. LUNGS: Clear to auscultation, no prolonged expiratory phases, wheezing, rales or rhonchi noted. ABDOMEN: Bowel sounds positive in all 4 quadrants, no hepatosplenomegaly noted. BREASTS: Nontender, no masses/nodules palpated, no axillary lymphadenopathy noted, no nipple discharge noted. GENITOURINARY: Normal female external genitalia. Normal appearing cervix without unusual discharge and non-friable. Uterus and adnexa are unremarkable. Patient denies cervical motion tenderness. PULSES: Radial/pedal/tibial pulses +2/4. SKIN: Without unusual rashes or suspicious lesions. EXTREMITIES: Equally strong/intact, no lower extremity edema noted. NEURO: Upper/lower deep tendon reflexes are brisk at +2. Cranial nerves II-XII are grossly intact and symmetric. Patient ambulates with a steady gait.. LABS: Pap is presently pending. IMPRESSION/REPORT/PLAN 1. Unremarkable routine examination. 2. History of allergies. 3. History of migraines. PLAN: 1. Routine physical examination: Presently, at this time, discussed the findings with the patient aswe also encouraged adequate diet modifications including incorporating fruits and vegetables into her diet and cutting down on caffeine intake. Also encouraged adequate rest and stress relievers. Patient stated she understands this plan. We will plan on contacting the patient regarding her Pap results. 2. Allergic rhinitis: I did reinstate the patient's Singulair 10 mg tablets by mouth daily in which she is to use if she is not using Lashay 180 mg in which she indicates that the Singulair has workerfor her in the past. Also advised to continue the Flonase nasal spray. Patient stated she understands the plan. 3. History of migraines: Presently, at this time, I did reinstate the patient's Ketorolac 10 mg tablets to take 1 tablet by mouth 4 times a day as needed for migraine for a max of 40 mg by mouth in 24 hours not to be taken the same day as with naproxen. These findings were overall discussed at length with the patient. Patient otherwise stated she understands the plan as she otherwise denied having any further questions or concerns. Patient ambulated out of the clinic in no acute distress. PATIENT EDUCATION: Ready to learn No apparent learning barriers were identified Learning preferences include listening Explained diagnosis and treatment plan Patient/Child/Caregiver expressed understanding of the content Andrew Vera D.N.P./Estefani Electronically Signed By: ANDREW VERA DNP, FNP On: 08/28/2012 11:15 AM Source: [facility] MHSDOLBEYNONRADSYS Document Id: [id number] documented in this encounter Miscellaneous Notes Miscellaneous - Andrew Vera D.N.P., Edward.N.P. - 08/23/2012 2:34 PM CDT Ambulatory Patient Summary [id number] [place] [address] Visit Information Name: CARTER MENSAH [facility] Number: [id number] Current Date: 08/23/2012 14:34:39 Physicians Attending Provider: ANDREW VERA DNP, FNP [...] medications. Medication/Strength Dose Route Frequency Indications/Special Instructions/Comments montelukast (Singulair 10 mg oral tablet) 10 mg Oral every evening ketorolac (ketorolac 10 mg oral tablet) 10 mg Oral four times a day as needed for Migraine headache (not to exceed 40 mg/day) topiramate (Topamax 50 mg oral tablet) 100 mg Oral once a day fexofenadine (Lashay 180 mg oral tablet) 180 mg Oral once a day fluticasone nasal (Flonase 50 mcg/inh nasal spray) 2 spray(s) Nasal two times a day as needed for Nasal congestion ondansetron (Zofran 4 mg oral tablet) 4 [...] No Appointments found Your Goals/Additional instructions: Source: [facility] POWERCHART Document Id: [id number] Miscellaneous - Andrew Vera D.N.P., C.N.P. - 08/23/2012 2:34 PM CDT Ambulatory Depart Summary [address] [address] Visit Information Name: CARTER MENSAH [facility] Number: [id number] Visit Date: 08/23/2012 14:34:38 Attending Provider: ANDREW VERA DNP, FNP Primary [...] medications. Medication/Strength Dose Route Frequency Indications/Special Instructions/Comments montelukast (Singulair 10 mg oral tablet) 10 mg Oral every evening ketorolac (ketorolac 10 mg oral tablet) 10 mg Oral four times a day as needed for Migraine headache (not to exceed 40 mg/day) topiramate (Topamax 50 mg oral tablet) 100 mg Oral once a day fexofenadine (Lashay 180 mg oral tablet) 180 mg Oral once a day fluticasone nasal (Flonase 50 mcg/inh nasal spray) 2 spray(s) Nasal two times a day as needed for Nasal congestion ondansetron (Zofran 4 mg oral tablet) 4 [...] your provider for clarification. Additional Information: Source: [facility] POWERCHART Document Id: [id number] Miscellaneous - William Mishra L.PLashawnN. - 08/23/2012 1:41 PM CDT Adult Critical Care Paramedic Intake/History Adult Critical Care Paramedic Intake/History Entered On: 08/23/2012 13:47 CDT Performed On: 08/23/2012 13:41 CDT by WILLIAM MISHRA LPN Intake Chief Complaint : General physical, not fasting, no problems or concerns Temperature Core : 36.9 DegC(Converted to: 98.4 DegF) Peripheral Pulse Rate : 76 /min Respiratory Rate : 16 /min Heart Rhythm : Regular Systolic Blood Pressure : 104 mmHg Diastolic Blood Pressure : 70 mmHg NIBP Mean : 81 mmHg BP Location : Left upper extremity Blood Pressure Cuff Size : Regular Height : 157.9 cm(Converted to: 5 ft 2 inch(es), 62.17 inch(es)) Actual Weight : 79.9 kg(Converted to: 176 lb 2 oz) Weight Source : Standing scale Dosing Weight Clinic : 79.9 kg Clinic BSA : 1.87 Body Mass Index : 32.05 kg/m2 WILLIAM MISHRA LPN - 08/23/2012 13:41 CDT General Info Information Given By : Patient Languages : German WILLIAM MISHRA LPN - 08/23/2012 13:41 CDT Subjective Pain Symptoms : No WILLIAM MISHRA LPN - 08/23/2012 13:41 CDT Dependent Habits Tobacco Use/Currently Using : Yes Tobacco Use/Advised to Quit : Yes Exposure to Tobacco Smoke : Patient smokes Smoking Status : Current every day smoker WILLIAM MISHRA LPN - 08/23/2012 13:41 CDT Tobacco Use Grid Type : Cigarettes Cigarette Use Packs/Day : 0.5 WILLIAM MISHRA LPN - 08/23/2012 13:41 CDT Alcohol Use : Yes WILLIAM MISHRA LPN - 08/23/2012 13:41 CDT Caffeine Use Grid Caffeine Use : Current Type : Soft drinks Frequency : Daily WILLIAM MISHRA LPN - 08/23/2012 13:41 CDT Recreational Drug Use Grid Drug Use : None WILLIAM MISHRA LPN - 08/23/2012 13:41 CDT Source: [facility] Document Id: [id number] CDT!41 Miscellaneous - William Mishra L.P.N. - 08/23/2012 1:41 PM CDT Health Assessment Health Assessment Entered On: 08/23/2012 13:47 CDT Performed On: 08/23/2012 13:41 CDT by WILLIAM MISHRA LPN Health Assessment Complete Health Assessment Complete or Modified : Annual Health Assessment Annual Health Assessment Completed : Yes WILLIAM MISHRA LPN - 08/23/2012 13:41 CDT Nutrition Nutrition Risk Factors by History Adult : None WILLIAM MISHRA LPN - 08/23/2012 13:41 CDT Functional Current Daily Living Assistance : None WILLIAM MISHRA LPN - 08/23/2012 13:41 CDT Dependent Habits Tobacco Use/Currently Using : Yes Exposure to Tobacco Smoke : Patient smokes Smoking Status : Current every day smoker WILLIAM MISHRA LPN - 08/23/2012 13:41 CDT Tobacco Use Grid Type : Cigarettes Cigarette Use Packs/Day : 0.5 WILLIAM MISHRA LPN - 08/23/2012 13:41 CDT Caffeine Use Grid Caffeine Use : Current Type : Soft drinks Frequency : Daily WILLIAM MISHRA Parvez CLEARY - 08/23/2012 13:41 CDT Recreational Drug Use Grid Drug Use : None WILLIAM MISHRA SISAL OPERATOR - 08/23/2012 13:41 CDT Psychosocial Domestic Abuse Concerns : None WILLIAM MISHRA SISAL OPERATOR - 08/23/2012 13:41 CDT Advance Directive Advanced Directives : No Advance Directive Additional Information : No WILLIAM MISHRA SISAL OPERATOR - 08/23/2012 13:41 CDT Educ Needs Learning Style Preference Adult Grid Patient : None Family : None WILLIAM MISHRA SISAL OPERATOR - 08/23/2012 13:41 CDT Source: [facility] DGSE Document Id: [id number] CDT!33 documented in this encounter Plan of Treatment Not on filedocumented as of this encounter Procedures Procedure Name Priority Date/Time Associated Diagnosis Comme nts HXPHYS INTERP OF Routine 08/23/2012 2:22 PM Resul ts for this THIN PREP, PAP CDT procedure are in the results section. THINPREP SCREEN HPV Routine 08/23/2012 2:22 PM Re sults for this REFLEX CDT procedure are i n the results section. documented in this encounter Results HXPHYS INTERP OF THIN PREP, PAP (08/23/2012 2:22 PM CDT) [facility] DNAnexus Method Time Signature Interpretation Performed POWERCHART Comment: Test Performed by: [place] [address] Tea Bag Machine Tender: Pranav morris III, M.D. Specimen Anatomical Collection Method Collection Time Receive d Time (Source) Location / / Volume Laterality Cervix/Endocervi 08/23/2012 2:22 PM 08/27 8:16 x CDT AM CDT Historical Provider LAB HISTORICAL ORDERS Performing Organization Address City/State/ZIP Code Phon e Number POWERCHART Pathology ThinPrep Screen HPV Reflex (08/23/2012 2:22 PM CDT) [facility] DNAnexus Method Time Signature Interpretation [id number] POWERCHART HXThPrep Scrn See Comment POWERCHART [facility] Comment: A. ??ThinPrep Pap Test Screen (Cervical/ Endocervical HPV Reflex): Satisfactory for evaluation. Scanty cellularity. Squamous epithelial cell abnormality Atypical squamous cells of undetermined significance. Participated in interpretation: ??Chuck Keyes M.D. [phone] HPV testing was performed by [employer] and is positive for one or more of HPV types 16,18,31,33,35,39,45,51,52,56,58,59 and 68. These high/intermediate risk HPV types a re associated with dysplasia and some cervical cancers. HXThPrep Scrn [facility] See Comment [facility] Comment: RESULT: Namrata King, CT(ASCP) HXThPrep Scrn [facility] See Comment [place]ER [place] Comment: RESULT: 09/05/2012 17:21 Interpreted by: Guadalupe Lubin M.D. Report electronically signed by Guadalupe Lubin M.D. Transcribed by: [facility] ??09/05/2012 09:40:10 [facility] See Comment POWERCHART Comment: A. ??ThinPrep Pap Test Screen (Cervical/ Endocervical HPV Reflex): Received cloudy specimen in ThinPrep via l. Test Performed by: [place] [address] Tea Bag Machine Tender: Pranav morris III, M.D. Specimen (Source) Anatomical Collection Method Collection Time Re ceived Time Location / / Volume Laterality Cervix/Endocervix 08/23/2012 2:22 PM CDT Andrew Vera APRN, C.N.P., D.N.P. LAB PAP PATHDX ORDERABLES Performing Organization Address City/State/ZIP Code Phon e Number POWERCHART documented in this encounter Visit Diagnoses Not on filedocumented in this encounter
--- OUTSIDE RECORDS SUMMARY | 2022-03-16 15:08 | XMS_ITS | Encounter Summary ---
:1980 Author Organization [facility] Address [address] [place] [address] Care Team Providers Name Role Phone Unavailable Primary Care Provider Unavailable Encounter Details Date Type Department Care Team Description 04/05/2013 Hospital Encounter [facility]X [facility] Myrna Edmonds M.D. Social [...] More than 4 times per year 11/09/2020 cheondoism services? 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 - 04/05/2013 9:31 AM CST [id number] CHIEF COMPLAINT/REASON FOR VISIT Dulce is a 32-year-old who is here because she is wondering what she can take for her cold symptoms. She has had a positive home test. Her menstrual cycle is about 2 weeks late. She said her menses do tend to be a little irregular, but her last period was the first week in February around [facility]. She did a home test a couple days ago and it was negative. She would like to have us repeat it today just to confirm her suspicion. She does not have any symptoms as far as symptoms at this time but does have a cold with some runny nose and sore throat. PHYSICAL EXAMINATION GENERAL: On exam, blood pressure is normal. Temperature is 36.9. ENT: TMs are clear. Pharynx is mildly red. NECK: Neck is supple without lymphadenopathy. LUNGS: Lungs are clear. IMPRESSION/REPORT/PLAN Upper respiratory symptoms in early . PLAN: We did look through various pfzz-uvy-znpvolj medications and I explained to her what the risksof taking during are. Suggested she try honey for cough suppression and she will do so. 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 She may need to have a form filled out to attest for her insurance that she is . I did provide her with a prescription for vitamins. Myrna Edmonds M.D./andre Electronically Signed By: MYRNA EDMONDS MD On: 04/08/2013 07:42 AM Source: [facility] MHSDOLBEYNONRADSYS Document Id: [id number] HER OF THE DEAF/HARD OF HEARING documented in this encounter Miscellaneous Notes Miscellaneous - Myrna Edmonds M.D. - 04/05/2013 11:51 AM CST Ambulatory Patient Summary [id number] [place] [address] Visit Information Name: DULCE MENSAH [facility] Number: [id number] Current Date: 04/05/2013 11:51:11 Physicians Attending Provider: MYRNA EDMONDS MD Primary Care Provider: ZINA CAMPBELL [facility], SUPERVISOR FABRICATION AND ASSEMBLY DULCE MENSAH has been given the following [...] Take Indications/Special Instructions/Comments/Notes for Patient Medication Changes/Routing albuterol (Ventolin HFA 90 mcg/inh inhalation aerosol) 2 puff(s), Inhalation, every 4 hours as needed for Shortness of breath / Wheezing ibuprofen (ibuprofen 200 mg oral tablet) 4 Tablet(s), Oral, as needed as needed for headache DO NOT take on the same day with naproxen. ketorolac (ketorolac 10 mg oral tablet) 1 Tablet(s), Oral, four times a day as needed for Pain mometasone nasal (Nasonex 50 mcg/inh nasal spray) 2 Boise(s), Nostrils(Both), once a day montelukast (Singulair 10 mg oral tablet) 1 Tablet(s), Oral, every evening multivitamin, ( Multivitamins oral tablet) 1 Tablet(s), Oral, once a day New Routedto [facility] , naproxen (naproxen) Oral, as needed for Pain DO NOT take on the same day you take ibuprofen. ondansetron (Zofran 4 mg oral tablet) 1 Tablet(s), Oral, every 8 hours as needed for Nausea Stop Taking the Following Medications: codeine-guaiFENesin (Guaiatussin AC 10 mg-100 mg/5 mL oral syrup) fluconazole (Diflucan 150 mg oral tablet) Medication list as of 04-05-13 11:51 Attention: If you have any medications at [...] Upcoming Appointments Date Time Location Reason Provider 04/09/2013 08:30 [facility] positive test, question about medications Zina Campbell NP Attention: Contact your local Clinic if further appointment detail needed. Your Goals/Additional instructions: Source: [facility] POWERCHART Document Id: [id number] HER OF THE DEAF/HARD OF HEARING Miscellaneous - Myrna Edmonds M.D. - 04/05/2013 11:51 AM CST Ambulatory Depart Summary [address] [address] Visit Information Name: DULCE MENSAH [facility] Number: [id number] Visit Date: 04/05/2013 11:50:58 Attending Provider: MYRNA EDMONDS MD Primary Care Provider: ZINA CAMPBELL DNP, SUPERVISOR FABRICATION AND ASSEMBLY RODRICK DULCEDERRICK BUSH has been given the following list of medications: Your Medications It is important to take your medications as directed. Use a pill box or chart to help remind you to take your medications. Please let your doctor or nurse know if you have problems taking your medications. Medication/Strength How to Take Indications/Special Instructions/Comments/Notes for Patient Medication Changes/Routing albuterol (Ventolin HFA 90 mcg/inh inhalation aerosol) 2 puff(s), Inhalation, every 4 hours as needed for Shortness of breath / Wheezing ibuprofen (ibuprofen 200 mg oral tablet) 4 Tablet(s), Oral, as needed as needed for headache DO NOT take on the same day with naproxen. ketorolac (ketorolac 10 mg oral tablet) 1 Tablet(s), Oral, four times a day as needed for Pain mometasone nasal (Nasonex 50 mcg/inh nasal spray) 2 Boise(s), Nostrils(Both), once a day montelukast (Singulair 10 mg oral tablet) 1 Tablet(s), Oral, every evening multivitamin, ( Multivitamins oral tablet) 1 Tablet(s), Oral, once a day New Routedto [facility] [address] [place] [id number] naproxen (naproxen) Oral, as needed for Pain DO NOT take on the same day you take ibuprofen. ondansetron (Zofran 4 mg oral tablet) 1 Tablet(s), Oral, every 8 hours as needed for Nausea Stop Taking the Following Medications: codeine-guaiFENesin (Guaiatussin AC 10 mg-100 mg/5 mL oral syrup) fluconazole (Diflucan 150 mg oral tablet) Medication list as of 04-05-13 11:51 Attention: If you have any medications at home that are not on this list, DO NOT take them until youcontact your provider for clarification. Give a copy of your medication list to your primary care provider. Update your medication list any time medications or doses are changed and carry your medication list at all times in case of emergency. Additional Information: Source: [facility] POWERCHART Document Id: [id number] HER OF THE DEAF/HARD OF HEARING Miscellaneous - Gi Baltazar L.P.N. - 04/05/2013 9:43 AM CST Adult Sand Screener Intake/History Adult Sand Screener Intake/History Entered On: 04/05/2013 9:47 TEACHER OF THE DEAF/HARD OF HEARING Performed On: 04/05/2013 9:43 TEACHER OF THE DEAF/HARD OF HEARING by GI BALTAZAR Intake Chief Complaint : + home pregnacy test LMP 02/19/13 has cold symptoms what can she take Temperature Core : 36.9 DegC(Converted to: 98.4 DegF) Peripheral Pulse Rate : 72 /min Respiratory Rate : 14 /min Heart Rhythm : Regular Systolic Blood Pressure : 100 mmHg Diastolic Blood Pressure : 60 mmHg NIBP Mean : 73 mmHg BP Location : Left upper extremity Blood Pressure Cuff Size : Regular Actual Weight : 84.6 kg(Converted to: 186 lb 8 oz) Weight Source : Standing scale Dosing Weight Clinic : 84.6 kg GI BALTAZAR - 04/05/2013 9:43 TEACHER OF THE DEAF/HARD OF HEARING General Info Information Given By : Patient Languages : Kazakh GI BALTAZAR - 04/05/2013 9:43 TEACHER OF THE DEAF/HARD OF HEARING Subjective Pain Symptoms : No GI BALTAZAR - 04/05/2013 9:43 TEACHER OF THE DEAF/HARD OF HEARING Dependent Habits Tobacco Use/Currently Using : Yes Tobacco Use/Advised to Quit : Yes Exposure to Tobacco Smoke : Patient smokes Smoking Status : Current every day smoker GI BALTAZAR - 04/05/2013 9:43 TEACHER OF THE DEAF/HARD OF HEARING Tobacco Use Grid Type : Cigarettes Cigarette Use Packs/Day : 0.5 GI BALTAZAR - 04/05/2013 9:43 TEACHER OF THE DEAF/HARD OF HEARING Caffeine Use Grid Caffeine Use : Current Type : Soft drinks Frequency : Daily GI BALTAZAR - 04/05/2013 9:43 TEACHER OF THE DEAF/HARD OF HEARING Recreational Drug Use Grid Drug Use : None GI BALTAZAR - 04/05/2013 9:43 TEACHER OF THE DEAF/HARD OF HEARING Source: [facility] POWERCHART Document Id: [id number] TEACHER OF THE DEAF/HARD OF HEARING!37 HER OF THE DEAF/HARD OF HEARING documented in this encounter Plan of Treatment Not on filedocumented as of this encounter Procedures Procedure Name Priority Date/Time Associated Diagnosis Comme nts TEST, U Routine 04/05/2013 9:52 AM Resu lts for this TEACHER OF THE DEAF/HARD OF HEARING procedure are i n the results section. documented in this encounter Results Test, Qualitative, Urine (04/05/2013 9:52 AM TEACHER OF THE DEAF/HARD OF HEARING) [facility] gist Method Time Signature HXBeta-hCG Positive POWERCHART Qualitative Urine Specimen (Source) Anatomical Collection Method Collection Time Re ceived Time Location / / Volume Laterality Urine 04/05/2013 9:52 AM TEACHER OF THE DEAF/HARD OF HEARING Myrna Edmonds M.D. LAB URINE ORDERABLES Performing Organization Address City/State/ZIP Code Phon e Number POWERCHART documented in this encounter Visit Diagnoses Not on filedocumented in this encounter
--- OUTSIDE RECORDS SUMMARY | 2022-03-16 15:08 | XMS_ITS | Encounter Summary ---
:1980 Demographics Address [address] [place] [address] Mobile Phone Home Phone Email Address Preferred Language ENG Marital Status Single Scientology Affiliation Unknown Race White Ethnic Group Not or Author Organization [facility] Address [address] [place] [address] Care Team Providers Name Role Phone Unavailable Primary Care Provider Unavailable Encounter Details Date Type Department Care Team Description 03/19/2013 Hospital Encounter HX [facility] ME Paul Boggs, [address] [place] [phone] (Wo rk) Social History Tobacco Use Types [...] Sign Reading Time Taken Comments Blood Pressure 96/70 03/19/2013 3:53 PM MOTEL CLERK Pulse 88 03/19/2013 3:53 PM MOTEL CLERK Temperature - - Respiratory Rate 18 03/19/2013 3:53 PM MOTEL CLERK Oxygen Saturation - - Inhaled Oxygen Concentration - - Weight 85.2 kg (187 lb 13.3 oz) 03/19/2013 3:53 PM MOTEL CLERK Height - - Body Mass Index 34.13 02/21/2013 8:02 AM MOTEL CLERK documented in this encounter Progress Notes Bill Boggs NStarr. - 03/19/2013 3:28 PM CST [id number] CHIEF COMPLAINT/REASON FOR VISIT Follow up on bronchitis. Continues to feel poorly. Pressure in sinuses. HISTORY OF PRESENT ILLNESS Dulce is a 32-year-old female who is here today with her daughter with concerns about continued symptoms of not feeling well. She was initially seen by me in the clinic on March 04 which at that time she had symptoms of a viral bronchitis. I initially treated her with a course of Medrol Dosepak, Robitussin with codeine cough syrup and Ventolin inhaler. Shortly after being seen she was called backto the clinic reporting continued symptoms which she was treated with a Z-Dragan. She reports that her chest symptoms have cleared up but she has continued to have to significant sinus issues. She notes that her nasal drainage is clear but she has a lot of postnasal drip, sore throat and sinus pain, parti cularly in the left maxillary sinus. She has also had some mild headaches. She has had no fever. Vale notes she has had some pressure in her ears. She has a history of sinus problems and is status post previous sinus surgery. MEDICATIONS Reviewed. New prescriptions today are for Robitussin with codeine cough syrup 1 teaspoon every 6 hours as needed for cough, Diflucan 150 mg tablet 1 tablet as needed for symptoms of a yeast infection and Levaquin 500 mg 1 tablet daily for 7 days. ALLERGIES 1. Augmentin causes GI distress. 2. Cipro. 3. Silicone. PAST MEDICAL/SURGICAL HISTORY Reviewed and unchanged, please see EMR. VITAL SIGNS Temperature 36.4, pulse 88, respirations 18, blood pressure 96/70, O2 sats 98% on room air. PHYSICAL EXAMINATION GENERAL: Dulce is alert, oriented x3, appears in no acute distress. HEENT: Head is normocephalic, atraumatic. Bilateral TMs are slightly dull with the some mild fluid present bilaterally. No significant erythema is noted. Nasal mucosa is swollen, erythematous. She doesnote some sinus tenderness with palpation over her left maxillary sinus. Oropharynx is without erythema or swelling. Neck is supple with no lymphadenopathy. Heart rate is regular, S1, S2 is present. No murmur or rub. LUNGS: Clear to auscultation. IMPRESSION/REPORT/PLAN Sinusitis. PLAN: Discussed with Dulce because of her history of chronic sinus issues as well as her persistent symptoms as of late, it would be reasonable to try another course of antibiotics. A prescription for Levaquin was written. She will take 500 mg once daily for 7 days. I gave her some Diflucan as well that she may use if needed for yeast infection symptoms as she reports she has had trouble with this in the past. She also notes that despite her allergy to Cipro, she has tolerated Levaquin. Refill was also provided on her Robitussin with codeine cough syrup. She is also encouraged to start doing her daily or every other day saline rinses due to her chronic sinus issues. Dulce's questions have been addres sed and she will follow up at the clinic as needed. PATIENT EDUCATION Ready to learn No apparent learning barriers were identified Learning preferences include listening Explained diagnosis and treatment plan Patient/Child/Caregiver expressed understanding of the content Stuart Baez/patricia Electronically Signed By: BILL BOGGS NP On: 03/28/2013 05:41 PM Source: [facility] MHSDOLBEYNONRADSYS Document Id: [id number] L CLERK documented in this encounter Miscellaneous Notes Miscellaneous - Aron Bo L.PLashawnN. - 03/19/2013 3:53 PM CST Adult Purification Operator Intake/History Adult Purification Operator Intake/History Entered On: 03/19/2013 15:57 MOTEL CLERK Performed On: 03/19/2013 15:53 MOTEL CLERK [address] ARON BO [facility] Intake Chief Complaint : Follow up on bronchitis- was given [id number] x1wk ago. Still not feeling well. Coughing, sore throat, sinus pressure, drainage. Temperature Core : 36.4 DegC(Converted to: 97.5 DegF) (LOW) Peripheral Pulse Rate : 88 /min Respiratory Rate : 18 /min Systolic Blood Pressure : 96 mmHg Diastolic Blood Pressure : 70 mmHg NIBP Mean : 79 mmHg BP Location : Right upper extremity Blood Pressure Cuff Size : Regular SpO2 : 98 % Oxygen Therapy : Room air Actual Weight : 85.2 kg(Converted to: 187 lb 13 oz) Weight Source : Standing scale Dosing Weight Clinic : 85.2 kg ARON BO CLINICAL PSYCHOLOGY TEACHER - 03/19/2013 15:53 MOTEL CLERK General Info Information Given By : Patient Preferred Communication Mode : Verbal Languages : Kiswahili ARON BO CLINICAL PSYCHOLOGY TEACHER - 03/19/2013 15:53 MOTEL CLERK Subjective Pain Symptoms : Yes ARON BO LPN - 03/19/2013 15:53 MOTEL CLERK Pain Pain Assessment Grid Pain 1 Location : Throat ARON BO [facility] - 03/19/2013 15:53 MOTEL CLERK Dependent Habits Tobacco Use/Currently Using : Yes Exposure to Tobacco Smoke : Patient smokes Smoking Status : Current every day smoker ARON BO LPN - 03/19/2013 15:53 MOTEL CLERK Tobacco Use Grid Type : Cigarettes Cigarette Use Packs/Day : 0.5 ARON BO LPN - 03/19/2013 15:53 MOTEL CLERK Alcohol Use : No ARON BO LPN - 03/19/2013 15:53 MOTEL CLERK Caffeine Use Grid Caffeine Use : Current Type : Soft drinks Frequency : Daily ARON BO LPN - 03/19/2013 15:53 MOTEL CLERK Recreational Drug Use Grid Drug Use : None ARON BO LPN - 03/19/2013 15:53 MOTEL CLERK Source: [facility] POWERCHART Document Id: [id number] MOTEL CLERK!43 L CLERK documented in this encounter Plan of Treatment Not on filedocumented as of this encounter Visit Diagnoses Not on filedocumented in this encounter
--- OUTSIDE RECORDS SUMMARY | 2022-03-16 15:08 | XMS_ITS | Encounter Summary ---
:1980 Author Organization [facility] Address [address] [place] [address] Care Team Providers Name Role Phone Unavailable Primary Care Provider Unavailable Encounter Details Date Type Department Care Team Description 02/02/2013 Hospital Encounter HX [facility] Raquel shetty M.D. [address] [place] [phone] (Wo rk) Social History Tobacco Use [...] Sign Reading Time Taken Comments Blood Pressure 100/66 02/02/2013 9:45 AM CDT Pulse 92 02/02/2013 9:45 AM CDT Temperature - - Respiratory Rate 16 02/02/2013 9:45 AM CDT Oxygen Saturation - - Inhaled Oxygen Concentration - - Weight 80.3 kg (177 lb 0.5 oz) 02/02/2013 9:45 AM CDT Height 158 cm (5' 2.21) 02/02/2013 9:45 AM CDT Body Mass Index 32.17 02/02/2013 9:45 AM CDT documented in this encounter Progress Notes Raquel Schmidt M.D. - 02/02/2013 9:40 AM CDT [id number] CHIEF COMPLAINT/REASON FOR VISIT Headache. HISTORY OF PRESENT ILLNESS Dulce is a 32-year-old female who reports developing a headache yesterday morning. She has a history of migraines and this felt like her normal headache. There is a throbbing behind her eyes and in her forehead. She is also light and sound sensitive and nauseous. Yesterday she took ketorolac 4 times and also took some Zofran. It has just not been helping. She therefore presents to the clinic. She states that Toradol and Vistaril have helped in the past. She denies any numbness, tingling, fever or neck pain. MEDICATIONS Reconciled. The patient's Zofran will be refilled. ALLERGIES Augmentin. Cipro. Silicon. SYSTEMS REVIEW As per history of present illness. VITAL SIGNS Temperature 36.7. Pulse is 92 beats per minute. Respiratory rate is 16 breaths per minute. Blood pressure is 100/66. Oxygen saturation is 98% on room air. Height is 158 cm. PHYSICAL EXAMINATION GENERAL: The patient is alert and oriented. She is in some discomfort with her headache. HEENT: Pupils are equal, round, reactive to light. Extraocular movements are intact. Tympanic membranes are a little bit pink bilaterally, but they do have good light reflex. Nasal mucosa is unremarkable. Oral mucosa is moist. No oropharyngeal erythema. NECK: Neck is supple. No lymphadenopathy. CARDIOVASCULAR: Regular rate and rhythm. Normal S1 and S2. No murmurs, rubs or gallops. LUNGS: Clear to auscultation bilaterally. EXTREMITIES: No pedal edema. NEUROLOGIC: Cranial nerves II-XII are intact. The patient has symmetric and coordinated finger-tapping and shke-ll-tzgu rubbing. She has symmetric upper and lower extremity strength. Romberg and pronator drift tests are negative. IMPRESSION/REPORT/PLAN Migraine. The patient was given a shot of Toradol and Phenergan as we are currently out of Vistaril.Her last Toradol at home had been at 2:30 in the morning so we were able to give her another dose. Ialso gave her the option of proceeding through the migraine protocol, but she declined. A prescription for Zofran was sent to the pharmacy. Patient Education Ready to learn No apparent learning barriers were identified Learning preferences include listening Explained diagnosis and treatment plan Patient/Child/Caregiver expressed understanding of the content Raquel Omalley M.D./[facility] Electronically Signed By: RAQUEL ARCHULETA MD On: 02/10/2013 01:45 PM Source: [facility] MHSDOLBEYNONRADSYS Document Id: [id number] documented in this encounter Miscellaneous Notes Miscellaneous - Raquel Schmidt M.D. - 02/02/2013 10:30 AM CDT Ambulatory Patient Summary [address] [address] Visit Information Name: DULCE LEI [facility] Number: [id number] Current Date: 02/02/2013 10:30:20 Physicians Attending Provider: RAQUEL ARCHULETA MD Primary Care Provider: ANDREW VERA DNP, INSPECTOR GENERAL DULCE LEI ELEAZAR has been given the following list [...] every 8 hours as needed for Nausea ketorolac (ketorolac 10 mg oral tablet) 10 mg Oral four times a day as needed for Migraine headache (not to exceed 40 mg/day). NOT TO BE USED WITH OTHER NSAIDS montelukast (Singulair 10 mg oral tablet) 10 [...] appointment detail needed. Your Goals/Additional instructions: Source: [facility] POWERCHART Document Id: [id number] Miscellaneous - Raquel Schmidt M.D. - 02/02/2013 10:30 AM CDT Ambulatory Depart Summary [facility] [address] [place] [address] Visit Information Name: DULCE LEI [facility] Number: [id number] Visit Date: 02/02/2013 10:30:19 Attending Provider: RAQUEL ARCHULETA MD Primary Care Provider: ANDREW VERA DNP, INSPECTOR GENERAL DULCE LEI has been given the following list [...] every 8 hours as needed for Nausea ketorolac (ketorolac 10 mg oral tablet) 10 mg Oral four times a day as needed for Migraine headache (not to exceed 40 mg/day). NOT TO BE USED WITH OTHER NSAIDS montelukast (Singulair 10 mg oral tablet) 10 [...] your provider for clarification. Additional Information: Source: [facility] POWERCHART Document Id: [id number] Miscellaneous - Jennifer Mishra, L.P.N. - 02/02/2013 9:45 AM CDT Adult Staple Side Laster Intake/History Adult Staple Side Laster Intake/History Entered On: 02/02/2013 9:49 CDT Performed On: 02/02/2013 9:45 CDT by JENNIFER MISHRA CLAMMER Intake Actual Weight : 80.3 kg(Converted to: 177 lb 0 oz) Dosing Weight Clinic : 80.3 kg Clinic BSA : 1.88 Body Mass Index : 32.17 kg/m2 JENNIFER MISHRA LPN 02/02/2013 9:53 CDT Chief Complaint : Migraine MEDRANO, started yesturday AM, no relief with migraine medication Temperature Core : 36.7 DegC(Converted to: 98.1 DegF) Peripheral Pulse Rate : 92 /min Respiratory Rate : 16 /min Heart Rhythm : Regular Systolic Blood Pressure : 100 mmHg Diastolic Blood Pressure : 66 mmHg NIBP Mean : 77 mmHg BP Location : Right upper extremity Blood Pressure Cuff Size : Regular SpO2 : 98 % Oxygen Therapy : Room air Height : 158.0 cm(Converted to: 5 ft 2 inch(es), 62.20 inch(es)) Weight Source : Standing scale JENNIFER MISHRA LPN 02/02/2013 9:45 CDT General Info Information Given By : Patient Languages : Cameroonian JENNIFER MISHRA LPN 02/02/2013 9:45 CDT Subjective Pain Symptoms : Yes JENNIFER MISHRA LPN 02/02/2013 9:45 CDT Pain Pain Assessment Grid Pain 1 Location : Head Laterality : Bilateral Intensity : 8 Time Pattern : Acute Onset : Sudden Quality : Throbbing Pain Radiation : No Aggravating Factors : Light, Movement Alleviating Factors : None Associated Symptoms : Nausea Interventions : Medications JENNIFER MISHRA LPN 02/02/2013 9:45 CDT Dependent Habits Tobacco Use/Currently Using : Yes Tobacco Use/Advised to Quit : Yes Exposure to Tobacco Smoke : Patient smokes Smoking Status : Current every day smoker JENNIFER MISHRA LPN 02/02/2013 9:45 CDT Tobacco Use Grid Type : Cigarettes Cigarette Use Packs/Day : 0.5 JENNIFER MISHRA LPN 02/02/2013 9:45 CDT Alcohol Use : Yes JENNIFER MISHRA LPN 02/02/2013 9:45 CDT Caffeine Use Grid Caffeine Use : Current Type : Soft drinks Frequency : Daily JENNIFER MISHRA LPN 02/02/2013 9:45 CDT Recreational Drug Use Grid Drug Use : None JENNIFER MISHRA LPN 02/02/2013 9:45 CDT Source: [facility] Document Id: [id number] CDT!6 documented in this encounter Plan of Treatment Not on filedocumented as of this encounter Visit Diagnoses Not on filedocumented in this encounter
--- OUTSIDE RECORDS SUMMARY | 2022-03-16 15:08 | XMS_ITS | Encounter Summary ---
:1980 Author Organization [facility] Address [address] [place] [address] Care Team Providers Name Role Phone Unavailable Primary Care Provider Unavailable Encounter Details Date Type Department Care Team Description 11/14/2012 Hospital Encounter HX [facility] Quique, Carmen murphy P.A.-C., P.A. [address] [place] [address] (Wo rk) Social History Tobacco [...] Reading Time Taken Comments Blood Pressure 102/60 11/14/2012 11:06 AM CDT Pulse 88 11/14/2012 11:06 AM CDT Temperature - - Respiratory Rate 16 11/14/2012 11:06 AM CDT Oxygen Saturation - - Inhaled Oxygen Concentration - - Weight 81.6 kg (179 lb 14.3 oz) 11/14/2012 11:06 AM CDT Height - - Body Mass Index 32.94 10/01/2012 7:18 AM CDT documented in this encounter Progress Notes Jolene Mensah - 11/14/2012 10:55 AM CDT [id number] CHIEF COMPLAINT/REASON FOR VISIT This is a 32-year-old female seen today concerned about a cough and cold that started about 2 days ago. HISTORY OF PRESENT ILLNESS She states it started with some nasal congestion. Her left ear was a little bit sore. She has felt alymph node in front of her left ear that is tender. Yesterday she started with a cough that is a little bit congested. She feels as though there is mucus in her chest, but she is just not able to get it up. She feels some pressure and tightness in her chest. She has not been short of breath. She is not wheezing. She is not running a fever as far as she knows but has felt hot and cold. She is not using any medication for it at this time. CURRENT MEDICATIONS She does have a prescription for Flonase that she takes as needed. Ibuprofen as needed. Naproxen as needed. Singulair as needed. Zofran as needed. States that she did start Zyban yesterday to quit smoking. ALLERGIES Augmentin. Cipro. Silicone. PAST MEDICAL/SURGICAL HISTORY Past medical history and surgical history are reviewed in the EMR. PHYSICAL EXAMINATION VITAL SIGNS: Temperature is 36.9, heart rate 88, respirations 16, blood pressure 102/68, O2 sats 98%on room air. Weight 81.6 kg. GENERAL: She is alert, interactive and cooperative. Appears to be well-nourished, well-hydrated, in no acute distress. HEENT: Head is normocephalic, atraumatic. TMs are dull but there is no erythema. Canals are clear. Sclerae and conjunctive are clear. Nares are congested. Oral mucosa is pink and moist. Posterior pharynx is nonerythematous. Tonsils are not enlarged. No exudate. NECK: Neck is supple; no lymphadenopathy. LUNGS: Lungs sound relatively clear to auscultation bilaterally. No wheezes. HEART: Regular rate and rhythm. IMAGING STUDIES: Chest x-ray was done and was normal. IMPRESSION/REPORT/PLAN Upper respiratory infection. PLAN: She was reassured that it seems to be a viral illness. I did recommend that she use some Mucinex to help break up the congestion. I also prescribe some Robitussin with codeine cough syrup to helpher at night. She should return if she is not improving, otherwise call or return for any other questions or concerns. Jolene Mensah P.A.-C./andre Electronically Signed By: JOLENE MENSAH On: 11/14/2012 01:53 PM Source: [facility] MHSDOLBEYNONRADSYS Document Id: [id number] documented in this encounter Miscellaneous Notes Miscellaneous - Jolene Mensah - 11/14/2012 12:31 PM CDT Ambulatory Patient Summary [id number] [place] [address] Visit Information Name: DULCE MENSAH [facility] Number: [id number] Current Date: 11/14/2012 12:31:40 Physicians Attending Provider: JOLENE MENSAH Primary Care Provider: ANDREW VERA DNP, LOOKBACK COORDINATOR Your Medications Here is a list of your medications. It is important to take your medications as directed. Use a pillbox or chart to help remind you to take your medications. Please let your doctor or nurse know if you have problems taking your medications. Medication/Strength Dose Route Frequency Indications/Special Instructions/Comments/Notes codeine-guaiFENesin (Guaifenesin AC Liquid oral syrup) 5 mL Oral every 6 hours as needed for cough and congestion buPROPion (Zyban 150 mg/12 hours oral tablet, sustained release) 150 mg Oral two times a day (start 150 mg by mouth daily for 3 days, then twice a day. May increase to two tabs by mouth twice a day as needed for smoking cessation. Stop smoking after 5-7 days of starting medication) montelukast (Singulair 10 mg oral tablet) 10 mg Oral every evening fluticasone nasal (Flonase 50 mcg/inh nasal spray) [...] No Appointments found Your Goals/Additional instructions: Source: [facility] POWERCHART Document Id: [id number] Miscellaneous - Jolene Mensah K - 11/14/2012 12:31 PM CDT Ambulatory Depart Summary [facility] [address] [place] [address] Visit Information Name: DULCE MENSAH [facility] Number: [id number] Visit Date: 11/14/2012 12:31:39 Attending Provider: JOLENE MENSAH Primary Care Provider: ANDREW VERA DNP, LOOKBACK COORDINATOR DULCE MENSAH has been given the following list of medications: Your Medications It is important to take your medications as directed. Use a pill box or chart to help remind you to take your medications. Please let your doctor or nurse know if you have problems taking your medications. Medication/Strength Dose Route Frequency Indications/Special Instructions/Comments/Notes codeine-guaiFENesin (Guaifenesin AC Liquid oral syrup) 5 mL Oral every 6 hours as needed for cough and congestion buPROPion (Zyban 150 mg/12 hours oral tablet, sustained release) 150 mg Oral two times a day (start 150 mg by mouth daily for 3 days, then twice a day. May increase to two tabs by mouth twice a day as needed for smoking cessation. Stop smoking after 5-7 days of starting medication) montelukast (Singulair 10 mg oral tablet) 10 mg Oral every evening fluticasone nasal (Flonase 50 mcg/inh nasal spray) [...] your provider for clarification. Additional Information: Source: [facility] POWERCHART Document Id: [id number] Miscellaneous - Jolene Mensah - 11/14/2012 11:25 AM CDT School or Work Excuse School or Work Excuse Entered On: 11/14/2012 11:25 CDT Performed On: 11/14/2012 11:25 CDT by JOLENE MENSAH School or Work Excuse Date Patient Seen : 11/14/2012 CDT Comment : Dulce was seen in the clinic today. JOLENE MNESAH - 11/14/2012 11:25 CDT Source: [facility] pinion-pins Document Id: [id number] CDT!4 Miscellaneous - Gi Baltazar L.PBessy - 11/14/2012 11:06 AM CDT Adult Plywood Matcher Intake/History Adult Plywood Matcher Intake/History Entered On: 11/14/2012 11:09 CDT Performed On: 11/14/2012 11:06 CDT by GI BALTAZAR Intake Chief Complaint : cough started 11/12/12 chest hurts from the cough Temperature Core : 36.9 DegC(Converted to: 98.4 DegF) Peripheral Pulse Rate : 88 /min Respiratory Rate : 16 /min Heart Rhythm : Regular Systolic Blood Pressure : 102 mmHg Diastolic Blood Pressure : 60 mmHg NIBP Mean : 74 mmHg BP Location : Right upper extremity Blood Pressure Cuff Size : Regular SpO2 : 98 % Oxygen Therapy : Room air Actual Weight : 81.6 kg(Converted to: 179 lb 14 oz) Weight Source : Standing scale Dosing Weight Clinic : 81.6 kg GI BALTAZAR - 11/14/2012 11:06 CDT General Info Information Given By : Patient Languages : Montenegrin GI BALTAZAR - 11/14/2012 11:06 CDT Subjective Pain Symptoms : No GI BALTAZAR - 11/14/2012 11:06 CDT Dependent Habits Tobacco Use/Currently Using : Yes Exposure to Tobacco Smoke : Patient smokes Smoking Status : Current every day smoker GI BALTAZAR - 11/14/2012 11:06 CDT Tobacco Use Grid Type : Cigarettes Cigarette Use Packs/Day : 0.5 GI BALTAZAR - 11/14/2012 11:06 CDT Caffeine Use Grid Caffeine Use : Current Type : Soft drinks Frequency : Daily GI BALTAZAR - 11/14/2012 11:06 CDT Recreational Drug Use Grid Drug Use : None GI BALTAZAR - 11/14/2012 11:06 CDT Source: [facility] [employer] Document Id: [id number] CDT!38 documented in this encounter Plan of Treatment Not on filedocumented as of this encounter Visit Diagnoses Not on filedocumented in this encounter
--- OUTSIDE RECORDS SUMMARY | 2022-03-16 15:08 | XMS_ITS | Encounter Summary ---
:1980 Author Organization [facility] Address [address] [place] [address] Care Team Providers Name Role Phone Unavailable Primary Care Provider Unavailable Encounter Details Date Type Department Care Team Description 02/15/2013 Hospital Encounter HX [facility] Angel Lyon M.D. [address] [place], [place] [address] (Wo rk) Social History Tobacco Use Types [...] Sign Reading Time Taken Comments Blood Pressure 107/57 02/15/2013 10:27 PM CDT Pulse 77 02/15/2013 10:27 PM CDT Temperature - - Respiratory Rate 16 02/15/2013 10:27 PM CDT Oxygen Saturation - - Inhaled Oxygen Concentration - - Weight - - Height - - Body Mass Index - - documented in this encounter Discharge Summaries Conversion, Historical Provider Ser - 02/15/2013 11:31 PM CDT ED Discharge Instructions [address] [address] Name: CARTER MENSAH Date of : 1980 12:00 AM Visit Date: 02/15/2013 10:20 PM [facility] Number: [id number] Address: [address] [place] [id number] Primary Care Provider: ANDREW VERA DNP, CONTAINER WASHER IMPORTANT: [facility] [place] would like to thank you for allowing us to assist you with your healthcare needs. The following includes patient education materials and informationregarding your injury/illness. Chief Complaint: Headache - Recurrent; Migraine Follow-Up Instructions: With: Address: When: ANDREW VERA [address] [place] [id number] Business (1) Within As Needed Comments: Patient Education Materials: [id number] Understanding Headache Pain Headache pain can start in different structures in the head. The brain itself doesn't hurt, but other parts of the head do. Headache is a common symptom of illness, such as a cold or the flu. At other times, headaches occur without seeming to be connected to any illness. Very rarely are headaches a sign of a serious medical problem. What Is Referred Pain? Referred pain has its source in one place but is felt in another. For example, pain behind the eyes may actually be caused by tense muscles in the neck and shoulders. This means that the place that hurts may not be the part of the head that needs treatment. ?? [id number] Mary Desai, [address] [place] [address], [place] [address]. All rights reserved. This information is not intended as a substitute for professional medical care. Always follow your healthcare professional's instructions. ED Tests and Procedures: Order Status Discharge Prescriptions & Home Medications: Medication/Strength Dose Route Frequency Indications/Special Instructions/Comments/Notes ketorolac (ketorolac 10 mg oral tablet) 10 mg Oral four times a day as needed for Pain ondansetron (Zofran 4 mg oral tablet) 4 [...] on the same day you take ibuprofen. Comment: Attention: If you have any medications at home not on this list, DO NOT take them until you contact your provider for clarification. Medication Reconciliation: Reconciliation is a process of identifying the most accurate list of all medications a patient is taking - including name, dosage, frequency, and route - and using this list to provide to the patient information about how to take those medications. CARTER MENSAH or holley has reviewed the home medications [...] about how to take those medications. CARTER MENSAH or holley has reviewed the home medications [...] document has images extracted. Please consider using [employer] for all your patient education needs. Source: [facility] App[employer] Document Id: [id number] Conversion, Historical Provider Ser - 02/15/2013 11:31 PM CDT ED Depart Summary [facility] Clinical Discharge Summary PERSON INFORMATION Name CARTER MENSAH Age 32 Years 1980 12:00 AM Sex Female Language Tanzanian PCP ANDREW VERA DNP, CONTAINER WASHER Marital Status Single Visit Id Visit Reason Headache - Recurrent; Migraine Specialty Enc Type Emergency Med Service Emergency Medicine Referred by Track Group [facility] ED Discharge 02/15/2013 11:31 PM Tracking Id [id number] Checkout 02/15/2013 11:31 PM Checkin 02/15/2013 10:20 PM Acuity Dispo Type * Discharged to Home or Self Care Arrival 02/15/2013 10:20 PM Reg Status LOS 000 01:11 Address: [address] [place] [phone] Comment: PROVIDER INFORMATION Provider Role Provider Contact Time ROSY LYON MD ED Provider 02/15/13 22:37 JENNIFER FRANCIS CHANNEL MARKETING PROGRAM MANAGER Nurse 02/15/13 22:37 DIAGNOSIS Headache - Recurrent Comment: PATIENT EDUCATION INFORMATION Instructions: Understanding Headache Pain Follow up: With: Address: When: ANDREW VERA [address] [place] [id number] [facility] () Within As Needed Comments: [facility] Document Id: [id number] documented in this encounter ED Notes Conversion, Historical Provider Ser - 02/15/2013 11:29 PM CDT ED Pain Assessment ED Pain Assessment Entered On: 02/15/2013 23:29 CDT Performed On: 02/15/2013 23:29 CDT by JENNIFER FRANCIS RN Pain Assessment Pain Symptoms : Yes JENNIFER FRANCIS RN - 02/15/2013 23:29 CDT Source: [employer] Document Id: [id number] CDT!3 Conversion, Historical Provider Ser - 02/15/2013 11:29 PM CDT ED Disposition Summary ED Disposition Summary Entered On: 02/15/2013 23:30 CDT Performed On: 02/15/2013 23:29 CDT by JENNIFER FRANCIS CHANNEL MARKETING PROGRAM MANAGER Disposition Summary Accompanied By : Alone Mode of Discharge : Ambulatory Transportation : Private vehicle Printed Discharge Instructions Given to Patient : Yes Patient Status at Discharge from ED : Improved JENNIFER FRANCIS RN - 02/15/2013 23:29 CDT Source: [employer] Document Id: [id number] CDT!7 Rosy Lyon M.D. - 02/15/2013 10:46 PM CDT Headache - Recurrent Patient: CARTER MENSAH Age: 32 years Sex: Female : 1980 Author: ROSY LYON MD Attachments: None Associated Diagnosis: Migraine headache 346.90 Basic Information Time seen: Date & time 02/15/2013 22:46:00. History source: Patient. Arrival mode: Walking. History limitation: None. Additional information: Chief Complaint from Nursing Triage Note : Chief Complaint Description. 02/15/2013 22:27 CDT Chief Complaint Description Headache since this morning unrelieved with prescription RX, nausea also History of Present Illness Awoke with a headache, typical of her migraine. The headache is throbbing, frontal in location, and associated with light sensitivity and nausea and vomiting. She took ibuprofen at 0830, then oral toradol at 1330 with zofran. She repeated zofran again at 2030. She spent the day at home. She presents to the ED for further treatment. In the past, toradol and vistaril have been helpful when she requiresED care. Her last ED visit was in 03/2012. The patient presents with migraine. The onset was 4 hours ago. The course/duration of symptoms is constant. Location: Bilateral frontal. Radiating pain: none. The character of symptoms is throbbing. The degree at onset was minimal, 2 /10. The degree at maximum was moderate, 7 /10. . The degree at pre sent is moderate, 7 /10. There are exacerbating factors including light and noise. There are relieving factors including light avoidance, noise avoidance and rest. Risk factors consist of none. Prior episodes: occasional. Preceding symptoms: none. Associated symptoms: nausea, vomiting, denies altered vision, denies fever and denies neck pain. Review of Systems Constitutional symptoms: Negative except as documented in HPI. Skin symptoms: No rash. Eye symptoms: Vision unchanged. ENMT symptoms: Negative except as documented in HPI. Respiratory symptoms: Negative except as documented in HPI. Cardiovascular symptoms: Negative except as documented in HPI. Gastrointestinal symptoms: No abdominal pain. Musculoskeletal symptoms: Negative except as documented in HPI. Neurologic symptoms: No altered level of consciousness, no numbness or no tingling. Health Status Allergies: . Allergic Reactions (Selected) Severity Not Documented Cipro- No reactions were documented. Nonallergic Reactions (Selected) Moderate Augmentin XR- Gi distress. Severity Not Documented Silicone- No reactions were documented. Medications: (Selected), Prescriptions Prescribed Singulair 10 mg oral tablet: 10 mg, 1 tab(s), PO, Daily PM, 90 tab(s) Zofran 4 mg oral tablet: 4 mg, 1 tab(s), PO, q8hr, 30 tab(s), PRN: Nausea ibuprofen 200 mg oral tablet: 800 mg, 4 tab(s), PO, PRN, DO NOT take on the same day with naproxen.,50 tab(s), PRN: headache Documented Medications Documented naproxen: PO, DO NOT take on the same day you take ibuprofen., PRN: PainAlso has been prescribed TORADOL 10 mg po QID prn. Immunizations: Include Immunizations. Immunizations reviewed. Menstrual history: Last menstrual period: Date 02/09/2013. history: 1, para 0. Past Medical/ Family/ Social History Medical history: . Active Migraine headache (346.90): Onset in 1989 at 8 years. Comments: 06/10/2010 PLY SPLICER 16:12 PLY SPLICER - SANDRINE FULLER RN no known date of onset Resolved Sinusitis (473.9): Onset in 2000 at 19 years. Resolved. Surgical history: . Mantoux test ([id number]) in 2010 at 29 Years. Endometrial sampling (biopsy) with or without endocervical sampling (biopsy), without cervical dilation, any method (separate procedure) (51380) in 2009 at 29 Years. Nasal sinus ([id number]) in 2000 at 20 Years. Comments: 06/10/2010 16:11 - SANDRINE FULLER RN sinus surgeries Tonsillectomy with adenoidectomy ([id number]) in 1994 at 13 Years. Family history: . Liver Mother Comments: 08/16/2010 09:57 - JENNIFER LIN LPN Liver failure Diabetes mellitus Mother Asthma Sister Hypertension Father MEDRANO - Headache Father Social history: Occupation: Unemployed, Family/social situation: Has a daughter. Problem list: . All Problems Acne vulgaris / 706.1 / Confirmed Abnormal Pap / 795.00 / Confirmed Anxiety State, Unspecified / 300.00 / Confirmed Allergic rhinitis, unspecified / 477.9 / Confirmed Tobacco Use Disorder / 305.1 / Confirmed Migraine headache / 346.90 / Confirmed Resolved: Sinusitis / 473.9 Canceled: Examination or Test, Positive Result / V72.42 Physical Examination Vital Signs Vital Signs. 02/15/2013 22:27 CDT Temperature Core 36.3 DegC LOW Apical Heart Rate 77 /min Peripheral Pulse Rate 77 /min Respiratory Rate 16 /min SpO2 100 % Systolic Blood Pressure 107 mmHg Diastolic Blood Pressure 57 mmHg General: Alert and mild distress. Skin: Warm and dry. Head: Normocephalic and atraumatic. Neck: Supple and no tenderness. Eye: Pupils are equal, round and reactive to light and normal conjunctiva. Ears, nose, mouth and throat: Tympanic membranes clear, oral mucosa moist and no pharyngeal erythemaor exudate. Cardiovascular: Regular rate and rhythm. Respiratory: Lungs are clear to auscultation and respirations are non-labored. Gastrointestinal: Soft and Nontender. Musculoskeletal: No tenderness. no swelling. no deformity. Neurological: Alert and oriented to person, place, time, and situation and No focal neurological deficit observed. Lymphatics: No lymphadenopathy. Psychiatric: Cooperative. Medical Decision Making Differential Diagnosis:Migraine. Documents reviewed:Prior records. OrdersLaunch Orders. Pharmacy: Compazine (Order Processing): 5 mg, IM, Once Toradol (Order Processing): 60 mg, IM, Once Reexamination/ Reevaluation Time: 02/15/2013 23:15:00 . Vital signs per nurse's notes Course: improving. Pain status: decreased. Assessment: Requests discharge. Wants to go home and sleep.. Impression and Plan Diagnosis Migraine headache 346.90 (Discharge, Emergency medicine, Medical) Plan Condition: Improved. Disposition: Discharged: to home. Prescriptions: Reviewed meds. Naprosyn, ibuprofen, and ketoralac are all NSAIDS and must be by at least 6 hours if used on the same day. Urged to add TYLENOL as a second agent. Uses zofran for nausea.. Patient was given the following educational materials: Understanding Headache Pain. Limitations: Limited activity, Rest, push fluids.. Follow up with: ANDREW VERA Within As Needed. Counseled: Patient, Regarding diagnosis, Regarding treatment plan, Regarding prescription, Patient indicated understanding of instructions. Electronically Signed By: ROSY LYON MD On: 02/15/2013 11:33 PM Modified by and Electronically Signed by: ROSY LYON MD On: 02/15/2013 11:29 PM Source: [facility] POWERCHART Document Id: [id number]} Conversion, Historical Provider Ser - 02/15/2013 10:32 PM CDT ED Primary Assessment Document Has Been Updated ED Primary Assessment Entered On: 02/15/2013 22:33 CDT Performed On: 02/15/2013 22:32 CDT by JENNIFER FRANCIS RN Reason For Visit (As Of: 02/15/2013 22:33:33 CDT) Problems(Active) Abnormal Pap (ICD-9-CM :795.00 ) Name of Problem: Abnormal Pap ; Onset Date: 10/21/2009 ; Recorder: JENNIFER LIN LPN; Confirmation: Confirmed ; Classification: Nursing ; Code: 795.00 ; ContributorSystem: PowerChart ; Last Updated: 08/16/2010 9:50 CDT ; Life Cycle Date: 08/16/2010 ; Life Cycle Status: Active ; Responsible Provider: JENNIFER LIN LPN; Vocabulary: ICD-9-CM Acne vulgaris (ICD-9-CM :706.1 ) Name of [...] System: PowerChart ; Last Updated: 04/12/2011 17:14 PLY SPLICER ; Life Cycle Date: 06/10/2010 ; Life [...] WAYNE RN, CNP; Vocabulary: ICD-9-CM Diagnoses(Active) Headache - Recurrent Date: 02/15/2013 ; Diagnosis Type: Reason For Visit ; Confirmation: Complaint of ; Clinical Dx: Headache - Recurrent ; Classification: Medical ; Clinical Service: Non-Specified ; Code: PNED ; Probability: 0 ; Diagnosis Code: [id number] Triage Mode of Arrival ED : Private vehicle Track : Medical Languages : Tanzanian Treatments Prior to Arrival : None JENNIFER FRANCIS RN - 02/15/2013 22:32 CDT Pain Assessment Pain Symptoms : Yes JENNIFER FRANCIS RN - 02/15/2013 22:32 CDT Respiratory Airway : Patent Respirations : Unlabored Respiratory Pattern : Regular Oxygen Therapy : Room air JENNIFER FRANCIS RN - 02/15/2013 22:32 CDT Cardiovascular Heart Rhythm : Regular Skin Color : Normal for ethnicity Skin Description : Dry Skin Temperature : Warm JENNIFER FRANCIS RN - 02/15/2013 22:32 CDT Neurological Last Well Time Known : Not applicable Level of Consciousness : Alert Orientation : Oriented x 3 Characteristics of Speech : Appropriate for age Neuro Patient Stated Symptoms : None Gait : Steady Swallowing Difficulty/Aspiration Risk : None JENNIFER FRANCIS RN - 02/15/2013 22:32 CDT ED Psychosocial Affect/Behavior : Calm, Cooperative Domestic Abuse Concerns : None Emotional Support Available : Yes JENNIFER FRANCIS RN - 02/15/2013 22:32 CDT Gastrointestinal Nutrition ED : Adequate JENNIFER FRANCIS RN - 02/15/2013 22:32 CDT Musculoskeletal Fall Prevention Education Provided : NA JENNIFER FRANCIS RN - 02/15/2013 22:32 CDT Social Habits Tobacco Use/Currently Using : Yes Tobacco Use/Advised to Quit : Yes Exposure to Tobacco Smoke : Patient smokes Smoking Status : Current every day smoker JENNIFER FRANCIS RN - 02/15/2013 22:32 CDT Tobacco Use Grid Type : Cigarettes Cigarette Use Packs/Day : 0.5 JENNIFER FRANCIS RN - 02/15/2013 22:32 CDT Alcohol Use Grid Alcohol Use : Other: occasional No JENNIFER FRANCIS RN - 02/15/2013 22:32 CDT JENNIFER FRANCIS RN - 02/15/2013 22:32 CDT Recreational Drug Use Grid Drug Use : None JENNIFER FRANCIS RN - 02/15/2013 22:32 CDT Source: [facility] [employer]CHART Document Id: [id number] CDT!51 Conversion, Historical Provider Ser - 02/15/2013 10:27 PM CDT ED Triage Assessment Document Has Been Updated ED Triage Assessment Entered On: 02/15/2013 22:32 CDT Performed On: 02/15/2013 22:27 CDT by JENNIFER FRANCIS RN Reason For Visit (As Of: 02/15/2013 22:32:30 CDT) Problems(Active) Abnormal Pap (ICD-9-CM :795.00 ) Name of Problem: Abnormal Pap ; Onset Date: 10/21/2009 ; Recorder: JENNIFER LIN LPN; Confirmation: Confirmed ; Classification: Nursing ; Code: 795.00 ; ContributorSystem: SeeControl ; Last Updated: 08/16/2010 9:50 CDT ; Life Cycle Date: 08/16/2010 ; Life Cycle Status: Active ; Responsible Provider: JENNIFER LIN LPN; Vocabulary: ICD-9-CM Acne vulgaris (ICD-9-CM :706.1 ) Name of Problem: Acne vulgaris ; Recorder: ALLEN BEDOYA RN; Confirmation: Confirmed ; Classification: Nursing ; Code: 706.1 ; Contributor System: WEbookChart ; Last Updated: 12/17/2010 11:55 CDT ; [...] Medical ; Code: 346.90 ; Contributor System: SeeControl ; Last Updated: 04/12/2011 17:14 PLY SPLICER ; Life Cycle Date: 06/10/2010 ; Life [...] WAYNE RN, CNP; Vocabulary: ICD-9-CM Diagnoses(Active) Headache - Recurrent Date: 02/15/2013 ; Diagnosis Type: Reason For Visit ; Confirmation: Complaint of ; Clinical Dx: Headache - Recurrent ; Classification: Medical ; Clinical Service: Non-Specified ; Code: PNED ; Probability: 0 ; Diagnosis Code: [id number] Triage Chief Complaint Description : Headache since this morning unrelieved with prescription RX, nausea also Information Given By : Patient Accompanied By : Alone Mode of Arrival ED : Private vehicle Track : Medical Languages : Tanzanian Patient Informed of Triage Location : Emergency department Vital Signs Assessed : Yes GCS Assessed : No Treatments Prior to Arrival : None JENNIFER FRANCIS RN - 02/15/2013 22:27 CDT Vital Signs Temperature Core : 36.3 DegC(Converted to: 97.3 DegF) (LOW) Peripheral Pulse Rate : 77 /min Apical Heart Rate : 77 /min Respiratory Rate : 16 /min Systolic Blood Pressure : 107 mmHg Diastolic Blood Pressure : 57 mmHg NIBP Mean : 74 mmHg BP Location : Left upper extremity SpO2 : 100 % Oxygen Saturation Monitoring Frequency : Intermittent Oxygen Therapy : Room air JENNIFER FRANCIS RN - 02/15/2013 22:27 CDT Pain Assessment Pain Symptoms : Yes JENNIFER FRANCIS RN - 02/15/2013 22:27 CDT Pain Pain Assessment Grid Pain 1 Pain 2 Location : Frontal Laterality : Bilateral Intensity : 7 Time Pattern : Acute, Chronic Onset : Gradual Quality : Throbbing Aggravating Factors : Light, Noise Alleviating Factors : None Associated Symptoms : Nausea Interventions : MD notified, Rest, Other: room darkened MD notified, Rest, Other: room darkend JENNIFER FRANCIS RN - 02/15/2013 22:27 CDT JENNIFER FRANCIS RN - 02/15/2013 22:27 CDT Comfort Measures Comfort Measures Grid [place] Application : Yes Comfortable Environment : Yes Enhance Sense of Personal Control : Yes Positive Self-Talk : Yes Quiet Environment : Yes Relaxation : Yes Rest : Yes JENNIFER FRANCIS RN - 02/15/2013 22:27 CDT Comfort Measures Response : Comfort level unchanged JENNIFER FRANCIS RN - 02/15/2013 22:27 CDT ED Physician Notification Time ED Physician Notification Time : 02/15/2013 22:32 CDT JENNIFER FRANCIS RN - 02/15/2013 22:27 CDT MORALES MORALES Level 1 : No MORALES Level 2 : No MORALES Level 3 : None JENNIFER FRANCIS RN - 02/15/2013 22:27 CDT DCP GENERIC CODE Tracking Group : [facility] JENNIFER FRANCIS RN - 02/15/2013 22:27 CDT Allergy (As Of: 02/15/2013 22:32:30 CDT) Allergies (Active) Augmentin XR Estimated Onset Date: Unspecified ; Reactions: GI distress ; Created By: MYRNA EDMONDS MD; Reaction Status: Active ; Category: Drug ; Substance: Augmentin XR ; Type: Intolerance ; Severity: Moderate ; Updated By: MYRNA EDMONDS MD; Source: Patient ; Reviewed Date: 02/11/2013 8:16 CDT Cipro Estimated Onset Date: Unspecified ; Created By: YASMANY CAVANAUGH RN; Reaction Status: Active ; Category: Drug ; Substance: Cipro ; Type: Allergy ; Updated By: YASMANY CAVANAUGH RN; Reviewed Date: 02/11/2013 8:16 CDT Silicone Estimated Onset Date: Unspecified ; Created By: JENNIFER FRANCIS RN; Reaction Status: Active ; Category: Drug ; Substance: Silicone ; Type: Sensitivity ; Updated By: JENNIFER FRANCIS RN; Reviewed Date: 02/11/2013 8:16 CDT Source: [employer] Document Id: [id number] CDT!59 documented in this encounter Miscellaneous Notes Miscellaneous - Conversion, Historical Provider Ser - 02/15/2013 11:29 PM CDT Valuables/Belongings Valuables/Belongings Entered On: 02/15/2013 23:29 CDT Performed On: 02/15/2013 23:29 CDT by JENNIFER FRANCIS RN Valuables/Belongings Home Medication Disposition : None brought in with patient JENNIFER FRANCIS RN - 02/15/2013 23:29 CDT Source: [facility] [employer] Document Id: [id number] CDT!3 Miscellaneous - Conversion, Historical Provider Ser - 02/15/2013 10:20 PM CDT Facility Charge Ticket Facility Charge Ticket Entered On: 02/15/2013 23:11 CDT Performed On: 02/15/2013 22:20 CDT by JENNIFER FRANCIS RN Facility Charge TVL Level Translated RTF : Headache - Recurrent, Headache - Recurrent TVL:3 TVL Level for Facility Charge Ticket : Level 3 Mode of Arrival ED : Private vehicle Arrival Mode Calc : 1 [place]x Mode of Arrival Interpreted : Standard [facility] Process Management : None [facility]x Order Management : None 30 Minutes Critical Care : No Nursing Notes RTF : Triage Forms ED Triage Assessment,02/15/13 22:27,JENNIFER FRANCIS RN Nursing Notes ED Primary Assessment,02/15/13 22:32,JENNIFER FRANCIS RN [facility]x Nursing Assessment : Triage and 1-2 nursing assessments Lynx Disposition : Discharge [facility]x Total Points with Diagnosis Control : 5 Lynx Visit Level : 39404 Level 3 Treatments Prior to Arrival : None JENNIFER FRANCIS RN - 02/15/2013 23:10 CDT Source: [facility] [employer] Document Id: [id number] CDT!16 documented in this encounter Plan of Treatment Not on filedocumented as of this encounter Visit Diagnoses Not on filedocumented in this encounter
--- OUTSIDE RECORDS SUMMARY | 2022-03-16 15:08 | XMS_ITS | Encounter Summary ---
:1980 Author Organization [facility] Address [address] [place] [address] Care Team Providers Name Role Phone Unavailable Primary Care Provider Unavailable Encounter Details Date Type Department Care Team Description 10/01/2012 Hospital Encounter HX [facility] Zina Vera, LO, C.N.P., D. N.P. [address] [place] [address] (Wo rk) Social History Tobacco [...] Sign Reading Time Taken Comments Blood Pressure 112/76 10/01/2012 7:18 AM CDT Pulse 64 10/01/2012 7:18 AM CDT Temperature - - Respiratory Rate 16 10/01/2012 7:18 AM CDT Oxygen Saturation - - Inhaled Oxygen Concentration - - Weight 80 kg (176 lb 5.9 oz) 10/01/2012 7:18 AM CDT Height 157.4 cm (5' 1.97) 10/01/2012 7:18 AM CDT Body Mass Index 32.29 10/01/2012 7:18 AM CDT documented in this encounter Progress Notes Zina Vera D.N.P., C.N.P. - 10/01/2012 7:14 AM CDT [id number] CHIEF COMPLAINT/REASON FOR VISIT Rash. HISTORY OF PRESENT ILLNESS The patient is a 32-year-old female that presents to the clinic today with a chief complaint of a rash. She indicates that the rash has been present now just for the past couple of days and she contributes the rash to being secondary to a sunburn. She indicates that she has not had any type of reaction like this before. She indicates that she has not had any fevers, chills, nausea or vomiting and otherwise indicates that she is not having any other concerns. She reports that the rash is mildly pruritic as it is affecting more of her chest and some areas of the forearms. She reports that she generally has more sensitive skin, and therefore even requires using baby shampoo for her hair in which she also uses this as a body cleanser due to her skin sensitivity. She indicates that she was out in the sun just prior to the onset of these symptoms. She indicates that sometimes she has even had a littlebit of some blistering from her sun burn. She otherwise indicates that she had is not having any other further concerns or issues at this time. PAST MEDICAL/SURGICAL HISTORY Past medical, surgical, family history reviewed. Please see chart. CURRENT MEDICATIONS Reviewed. Please see chart. ALLERGIES Reviewed. Please see chart. PHYSICAL EXAMINATION The patient is an alert, mildly obese, 32-year-old female that appears to be in no acute distress. HEAD: Normocephalic, atraumatic. Patient is noted to have small areas within the chest area and alsotwo locations to bilateral upper extremities that are noted to be small, erythematous, erupted blisters that are less than 2 mm in diameter. No periwound erythema, induration or maceration is noted. These are somewhat raised to palpation. IMPRESSION/REPORT/PLAN Rash (most likely photosensitivity). PLAN: Discussed the findings with the patient. Presently, we went over appropriate measures to take for UVA and UVB protection. Advised that she can take Benadryl [id number] as directed on package as needed to help with any itching. Patient was excused from work for today per her request. Indicated that if the symptoms worsen or continue, follow-up would be warranted. Patient felt comfortable with this treatment plan. Of note, the patient would also like to trial Zyban for smoking cessation in which this was prescribed for the patient to take as directed on package. Patient otherwise denied having any further questions or concerns. Patient ambulated out of the clinic in no acute distress. PATIENT EDUCATION: Ready to learn No apparent learning barriers were identified Learning preferences include listening Explained diagnosis and treatment plan Patient/Child/Caregiver expressed understanding of the content Zina Vera D.N.P./FLashawnNLashawnP/andre Electronically Signed By: ZINA VERA DNP, FNP On: 10/05/2012 08:16 AM Source: [facility] MHSDOLBEYNONRADSYS Document Id: [id number] documented in this encounter Miscellaneous Notes Miscellaneous - Zina Vera D.N.P., C.N.P. - 10/01/2012 10:25 AM CDT Ambulatory Patient Summary [facility] [address] [place] [address] Visit Information Name: DULCE MENSAH [facility] Number: [id number] Current Date: 10/01/2012 10:25:02 Physicians Attending Provider: ZINA VERA DNP, FNP Primary Care Provider: ZINA VERA DNP, FNP Your Medications Here is a list of your medications. It is important to take your medications as directed. Use a pillbox or chart to help remind you to take your medications. Please let your doctor or nurse know if you have problems taking your medications. Medication/Strength Dose Route Frequency Indications/Special Instructions/Comments buPROPion (Zyban 150 mg/12 hours oral tablet, sustained release) 150 mg Oral two times a day (start 150 mg by mouth daily for 3 days, then twice a day. Stop smoking after 5-7 days of starting medication) montelukast (Singulair 10 mg oral tablet) 10 mg Oral every evening topiramate (Topamax 50 mg oral tablet) 100 [...] No Appointments found Your Goals/Additional instructions: Source: [facility] POWERCHART Document Id: [id number] Miscellaneous - Zina Vera D.N.P., C.N.P. - 10/01/2012 10:25 AM CDT Ambulatory Depart Summary [id number] [place] [address] Visit Information Name: DULCE MENSAH [facility] Number: [id number] Visit Date: 10/01/2012 10:25:01 Attending Provider: ZINA VERA DNP, FNP Primary Care Provider: ZINA VERA DNP, FNP RODRICK DULCE BUSH has been given the following list of medications: Your Medications It is important to take your medications as directed. Use a pill box or chart to help remind you to take your medications. Please let your doctor or nurse know if you have problems taking your medications. Medication/Strength Dose Route Frequency Indications/Special Instructions/Comments buPROPion (Zyban 150 mg/12 hours oral tablet, sustained release) 150 mg Oral two times a day (start 150 mg by mouth daily for 3 days, then twice a day. Stop smoking after 5-7 days of starting medication) montelukast (Singulair 10 mg oral tablet) 10 mg Oral every evening topiramate (Topamax 50 mg oral tablet) 100 [...] your provider for clarification. Additional Information: Source: [facility] POWERCHART Document Id: [id number] Miscellaneous - Jennifer Mishra L.P.N. 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 Intake/History Entered On: 10/01/2012 7:21 CDT Performed On: 10/01/2012 7:18 CDT by JENNIFER MISHRA LPN Intake Chief Complaint : Rash every where, started Monday, itches, zurita Temperature Core : 36.7 DegC(Converted to: 98.1 DegF) Peripheral Pulse Rate : 64 /min Respiratory Rate : 16 /min Heart Rhythm : Regular Systolic Blood Pressure : 112 mmHg Diastolic Blood Pressure : 76 mmHg NIBP Mean : 88 mmHg BP Location : Right upper extremity Blood Pressure Cuff Size : Regular Height : 157.4 cm(Converted to: 5 ft 2 inch(es), 61.97 inch(es)) Actual Weight : 80.0 kg(Converted to: 176 lb 6 oz) Weight Source : Standing scale Dosing Weight Clinic : 80 kg Clinic BSA : 1.87 Body Mass Index : 32.29 kg/m2 JENNIFER MISHRA LPN - 10/01/2012 7:18 CDT General Info Information Given By : Patient Languages : Austrian JENNIFER MISHRA LPN - 10/01/2012 7:18 CDT Subjective Pain Symptoms : No JENNIFER MISHRA LPN - 10/01/2012 7:18 CDT Dependent Habits Tobacco Use/Currently Using : Yes Tobacco Use/Advised to Quit : Yes Exposure to Tobacco Smoke : Patient smokes Smoking Status : Current every day smoker JENNIFER MISHRA LPN - 10/01/2012 7:18 CDT Tobacco Use Grid Type : Cigarettes Cigarette Use Packs/Day : 0.5 JENNIFER MISHRA LPN - 10/01/2012 7:18 CDT Alcohol Use : Yes JENNIFER MISHRA LPN - 10/01/2012 7:18 CDT Caffeine Use Grid Caffeine Use : Current Type : Soft drinks Frequency : Daily JENNIFER MISHRA LPN - 10/01/2012 7:18 CDT Recreational Drug Use Grid Drug Use : None JENNIFER MISHRA LPN - 10/01/2012 7:18 CDT Source: [employer] Document Id: [id number] CDT!41 documented in this encounter Plan of Treatment Not on filedocumented as of this encounter Visit Diagnoses Not on filedocumented in this encounter
--- OUTSIDE RECORDS SUMMARY | 2022-03-16 15:08 | XMS_ITS | Encounter Summary ---
:1980 Author Organization [facility] Address [address] [place] [address] Care Team Providers Name Role Phone Unavailable Primary Care Provider Unavailable Encounter Details Date Type Department Care Team Description 07/24/2012 Hospital Encounter HX [facility] Andrew Vera, LO, C.N.P., D. N.P. [address] [place] [address] (Wo rk) Social History Tobacco [...] Sign Reading Time Taken Comments Blood Pressure 104/60 07/24/2012 11:08 AM CDT Pulse 92 07/24/2012 11:08 AM CDT Temperature - - Respiratory Rate 16 07/24/2012 11:08 AM CDT Oxygen Saturation - - Inhaled Oxygen Concentration - - Weight 80.4 kg (177 lb 4 oz) 07/24/2012 11:08 AM CDT Height 157.4 cm (5' 1.97) 07/24/2012 11:08 AM CDT Body Mass Index 32.45 07/24/2012 11:08 AM CDT documented in this encounter Progress Notes Andrew Vera D.N.P., C.N.P. - 07/24/2012 11:04 AM CDT [id number] CHIEF COMPLAINT/REASON FOR VISIT 1. Sinus congestion. 2. Left ear discomfort. HISTORY OF PRESENT ILLNESS The patient is a 32-year-old female that presents to the clinic today with a chief complaint of sinus congestion and left ear pain that has been present now for approximately the 5 days duration. She indicates that she is not having any fevers, chills, nausea, vomiting, shortness breath or difficulty breathing. She indicates that she is taking some [id number] cold medication to help with the symptoms with minimal symptom improvement. She otherwise indicates that she is not having any sneezing or itchy watery eyes. She does report that she is not taking her allergy medication (Lashay) as her insurance ran out and is wondering if this can be reinstated. She has also used Flonase in the past for her allergic rhinitis but indicates again because her insurance ran out she does not have any refills of this. She is coming in today for further evaluation. PAST MEDICAL/SURGICAL HISTORY Reviewed. Please see chart. FAMILY HISTORY Reviewed. Please see chart. CURRENT MEDICATIONS Reviewed. Please see chart. ALLERGIES Reviewed. Please see chart. PHYSICAL EXAMINATION OBJECTIVE: Patient is alert/oriented x 3. HEAD: Normocephalic/atraumatic. PUPILS: GLEN. OROPHARYNX: [place] and moist. TMs: Bilateral TMs are clear, bony landmarks noted and WNL. NARES: Bilateral nares are erythematous and enlarged. Clear secretions are noted bilaterally. NECK: No anterior/posterior lymphadenopathy noted. HEART: Regular S1, S2, no murmurs, rubs or gallops noted. LUNGS: Clear to auscultation, no prolonged expiratory phases, wheezing, rales or rhonchi noted. SKIN: Without unusual rashes or suspicious lesions IMPRESSION/REPORT/PLAN 1. History of allergic rhinitis. 2. Upper respiratory infection. 3. Left eustachian tube dysfunction. PLAN: Discussed the overall findings with the patient. Presently, at this time, the patient was excused from work for today. Medication for Flonase 50 mcg per inhalation was reinstated to use 2 sprays into each nostril twice a day as needed in addition to Lashay 180 mg by mouth daily. Also indicated her symptoms could be of viral etiology and would resolve on their own in the next several days duration. Advised recommended humidified air and encouraging fluid intake and also indicated that if the symptoms worsen or continue, follow-up would be warranted. Advised that she lie on the non-affected side and apply warm compress to the left eustachian tube area to help with eustachian tube dysfunction. Patient stated she understands this plan as she otherwise denied having any further questions or concerns. Patient ambulated out of the clinic in no acute distress. PATIENT EDUCATION: Ready to learn No apparent learning barriers were identified Learning preferences include listening Explained diagnosis and treatment plan Patient/Child/Caregiver expressed understanding of the content Tristin Jacobs.N.P./F.N.P/andre Electronically Signed By: ANDREW VERA DNP, FNP On: 07/24/2012 12:46 PM Source: [facility] MHSDOLBEYNONRADSYS Document Id: [id number] documented in this encounter Miscellaneous Notes Miscellaneous - Andrew Vera D.N.P., C.N.P. - 07/24/2012 12:24 PM CDT Ambulatory Patient Summary [facility] [address] [facility] [place] [address] Visit Information Name: CARTER MENSAH [facility] Number: [id number] Current Date: 07/24/2012 12:24:10 Physicians Attending Provider: ANDREW VERA DNP, FNP [...] medications. Medication/Strength Dose Route Frequency Indications/Special Instructions/Comments topiramate (Topamax 50 mg oral tablet) 100 mg Oral once a day fexofenadine (Lashay 180 mg oral tablet) 180 mg Oral once a day fluticasone nasal (Flonase 50 mcg/inh nasal spray) 2 spray(s) Nasal two times a day as needed for Nasal congestion ketorolac (ketorolac 10 mg oral tablet) 10 mg Oral four times a day as needed for Migraine headache (not to exceed 40 mg/day) Misc Prescription (Mis Prescription) Wal-zyr (sinus) Oral once a day [...] Upcoming Appointments Date Time Location Reason Provider 08/08/2012 08:00 [facility] Lab Your Goals/Additional instructions: Source: [facility] POWERCHART Document Id: [id number] Miscellaneous - Andrew Vera D.N.Luis, C.N.P. - 07/24/2012 12:24 PM CDT Ambulatory Depart Summary [address] [address] Visit Information Name: RODRICK CARTERDERRICK BUSH [facility] Number: [id number] Visit Date: 07/24/2012 12:24:09 Attending Provider: ANDREW VERA DNP, FNP Primary Care Provider: ANDREW VERA DNP, FNP RODRICKASAFDERRICK BUSH has been given the following list of medications: Your Medications It is important to take your medications as directed. Use a pill box or chart to help remind you to take your medications. Please let your doctor or nurse know if you have problems taking your medications. Medication/Strength Dose Route Frequency Indications/Special Instructions/Comments topiramate (Topamax 50 mg oral tablet) 100 mg Oral once a day fexofenadine (Lashay 180 mg oral tablet) 180 mg Oral once a day fluticasone nasal (Flonase 50 mcg/inh nasal spray) 2 spray(s) Nasal two times a day as needed for Nasal congestion ketorolac (ketorolac 10 mg oral tablet) 10 mg Oral four times a day as needed for Migraine headache (not to exceed 40 mg/day) Misc Prescription (Mis Prescription) Wal-zyr (sinus) Oral once a day [...] Source: [facility] POWERCHART Document Id: [id number] Miscellaneous - William Mishra L.P.N. 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 Intake/History Adult Hammer Heater Intake/History Entered On: 07/24/2012 11:12 CDT Performed On: 07/24/2012 11:08 CDT by WILLIAM MISHRA LPN Intake Systolic Blood Pressure : 104 mmHg Diastolic Blood Pressure : 60 mmHg NIBP Mean : 75 mmHg BP Location : Right upper extremity Blood Pressure Cuff Size : Regular WILLIAM MISHRA LPN - 07/24/2012 11:12 CDT Chief Complaint : ST, head congestion, Left ear pain Temperature Core : 36.1 DegC(Converted to: 97.0 DegF) (LOW) Peripheral Pulse Rate : 92 /min Respiratory Rate : 16 /min Heart Rhythm : Regular SpO2 : 98 % Oxygen Therapy : Room air Height : 157.4 cm(Converted to: 5 ft 2 inch(es), 61.97 inch(es)) Actual Weight : 80.4 kg(Converted to: 177 lb 4 oz) Weight Source : Standing scale Dosing Weight Clinic : 80.4 kg Clinic BSA : 1.87 Body Mass Index : 32.45 kg/m2 WILLIAM MISHRA LPN - 07/24/2012 11:08 CDT General Info Information Given By : Patient Languages : Frisian WILLIAM MISHRA LPN - 07/24/2012 11:08 CDT Subjective Pain Symptoms : No WILLIAM MISHRA LPN - 07/24/2012 11:08 CDT Dependent Habits Tobacco Use/Currently Using : Yes Tobacco Use/Advised to Quit : Yes Exposure to Tobacco Smoke : Patient smokes Smoking Status : Current every day smoker WILLIAM MISHRA LPN - 07/24/2012 11:08 CDT Tobacco Use Grid Type : Cigarettes Cigarette Use Packs/Day : 0.5 WILLIAM MISHRA INVESTMENT BROKER - 07/24/2012 11:08 CDT Alcohol Use : Yes WILLIAM MISHRA INVESTMENT BROKER - 07/24/2012 11:08 CDT Caffeine Use Grid Caffeine Use : Current Type : Soft drinks Frequency : Daily WILLIAM MISHRA LPN - 07/24/2012 11:08 CDT Recreational Drug Use Grid Drug Use : None WILLIAM MISHRA LPN - 07/24/2012 11:08 CDT Source: [employer] Document Id: [id number] CDT!7 documented in this encounter Plan of Treatment Not on filedocumented as of this encounter Visit Diagnoses Not on filedocumented in this encounter
--- OUTSIDE RECORDS SUMMARY | 2022-03-16 15:08 | XMS_ITS | Encounter Summary ---
:1980 Author Organization [facility] Address [address] [place] [address] Care Team Providers Name Role Phone Unavailable Primary Care Provider Unavailable Encounter Details Date Type Department Care Team Description 04/30/2013 Hospital Encounter HX [facility] ME Andrew Vera, LO, C.N.P., D. N.P. [address] [place] [address] (Wo rk) Social History Tobacco [...] Sign Reading Time Taken Comments Blood Pressure 106/76 04/30/2013 5:54 PM COUNTER WEIGHER Pulse 88 04/30/2013 5:54 PM COUNTER WEIGHER Temperature - - Respiratory Rate 16 04/30/2013 5:54 PM COUNTER WEIGHER Oxygen Saturation - - Inhaled Oxygen Concentration - - Weight 86.8 kg (191 lb 5.8 oz) 04/30/2013 5:54 PM COUNTER WEIGHER Height 157 cm (5' 1.81) 04/30/2013 5:54 PM COUNTER WEIGHER Body Mass Index 35.21 04/30/2013 5:54 PM COUNTER WEIGHER documented in this encounter Progress Notes Andrew Vera D.N.P., C.N.P. - 04/30/2013 5:48 PM CST [id number] CHIEF COMPLAINT/REASON FOR VISIT Followup. HISTORY OF PRESENT ILLNESS The patient is a 32-year-old female that presents to the clinic today to follow up. I will note thatthe patient was recently started on Ceftin in which currently she is 5 weeks 2 days gestation in which she was having some sinusitis symptoms that had been present for greater than 7 days duration backon April 26, 2012 which she was initiated on Ceftin 500 mg by mouth twice a day. She indicates that she is having a little bit of some vaginal discomfort because of this. She otherwise indicates thatshe otherwise is not having any fevers or chills and denies having any shortness of breath or difficulty breathing. She is coming in today for followup. PAST MEDICAL/SURGICAL HISTORY Reviewed. Please see chart. FAMILY HISTORY Reviewed. Please see chart. MEDICATIONS Reviewed. Please see chart. ALLERGIES Reviewed. Please see chart. PHYSICAL EXAMINATION GENERAL: The patient is an alert, well-nourished, 32-year-old female that appears to be in no acute distress. HEAD: Normocephalic, atraumatic. HEART: Heart sounds are a regular S1, S2; no murmurs, rubs or gallops are auscultated. LUNGS: Bilaterally clear. IMPRESSION/REPORT/PLAN History of sinusitis. PLAN: Discussed the overall findings at length with the patient. Presently, at this time, I indicated most likely her symptoms are consistent with a vaginal candidiasis in which I did opt to give her Nystatin 100,000 units per gram cream to apply to the affected area 3 times a day as needed. Presently, at this time, considering she is currently , we deferred any treatment with Diflucan. Patient felt very comfortable with this treatment plan. She otherwise denied having any further questions or concerns. The patient ambulated out of the clinic in no acute distress. PATIENT EDUCATION: Ready to learn No apparent learning barriers were identified Learning preferences include listening Explained diagnosis and treatment plan Patient/Child/Caregiver expressed understanding of the content Andrew Vera D.N.P./Anibal/andre Electronically Signed By: ANDREW VERA DNP, FNP On: 05/02/2013 12:35 PM Source: [facility] MHSDOLBEYNONRADSYS Document Id: [id number] TER WEIGHER documented in this encounter Miscellaneous Notes Miscellaneous - Andrew Vera D.N.P., C.N.P. - 04/30/2013 7:03 PM COUNTER WEIGHER Ambulatory Patient Summary [id number] [place] [address] Visit Information Name: CARTER MENSAH [facility] Number: [id number] Current Date: 04/30/2013 19:03:38 Physicians Attending Provider: ANDREW VERA DNP, FNP [...] Take Indications/Special Instructions/Comments/Notes for Patient Medication Changes/Routing cefuroxime (Ceftin 500 mg oral tablet) 1 Tablet(s), Oral, two times a day x 10 day(s) Allergy to augmentin was diarrhea. Please advise patient ceftin is category B guaiFENesin (Robitussin) 100 mg, Oral, every 4 hours *montelukast (Singulair 10 mg oral tablet) 1 Tablet(s), Oral, every evening multivitamin, ( Multivitamins oral tablet) 1 Tablet(s), Oral, once a day nystatin topical (nystatin 100,000 units/g topical cream) 1 sonya, Topical, three times a day as needed for vaginal discomfort New Routed to [address] [address] * You have let us know that you are not taking this medication as listed. Please talk with your primary care provider or the health care provider who prescribed the medication as soon as possible. Stop Taking the Following Medications: Medication list as of 04-30-13 19:03 Attention: If you have any medications at [...] appointment detail needed. Your Goals/Additional instructions: Source: [facility] POWERCHART Document Id: [id number] TER WEIGHER Miscellaneous - Andrew Vera D.N.P., C.N.P. - 04/30/2013 7:03 PM COUNTER WEIGHER Ambulatory Depart Summary [facility] [address] [place] [address] Visit Information Name: CARTER MENSAH [facility] Number: [id number] Visit Date: 04/30/2013 19:03:36 Attending Provider: ANDREW VERA DNP, FNP Primary [...] Take Indications/Special Instructions/Comments/Notes for Patient Medication Changes/Routing cefuroxime (Ceftin 500 mg oral tablet) 1 Tablet(s), Oral, two times a day x 10 day(s) Allergy to augmentin was diarrhea. Please advise patient ceftin is category B guaiFENesin (Robitussin) 100 mg, Oral, every 4 hours *montelukast (Singulair 10 mg oral tablet) 1 Tablet(s), Oral, every evening multivitamin, ( Multivitamins oral tablet) 1 Tablet(s), Oral, once a day nystatin topical (nystatin 100,000 units/g topical cream) 1 sonya, Topical, three times a day as needed for vaginal discomfort [facility] to [facility] [address] [address] * You have let us know that you are not taking this medication as listed. Please talk with your primary care provider or the health care provider who prescribed the medication as soon as possible. Stop Taking the Following Medications: Medication list as of 04-30-13 19:03 Attention: If you have any medications at home that are not on this list, DO NOT take them until youcontact your provider for clarification. Give a copy of your medication list to your primary care provider. Update your medication list any time medications or doses are changed and carry your medication list at all times in case of emergency. Additional Information: Source: [facility] POWERCHART Document Id: [id number] TER WEIGHER Miscellaneous - William Mishra L.P.N. - 04/30/2013 5:54 PM CST Adult Online Activist Intake/History Adult Online Activist Intake/History Entered On: 04/30/2013 17:59 COUNTER WEIGHER Performed On: 04/30/2013 17:54 COUNTER WEIGHER by WILLIAM MISHRA LPN Intake Chief Complaint : Initial OB and go over US results Temperature Core : 36.6 DegC(Converted to: 97.9 DegF) Peripheral Pulse Rate : 88 /min Respiratory Rate : 16 /min Heart Rhythm : Regular Systolic Blood Pressure : 106 mmHg Diastolic Blood Pressure : 76 mmHg NIBP Mean : 86 mmHg BP Location : Right upper extremity Blood Pressure Cuff Size : Regular SpO2 : 99 % Oxygen Therapy : Room air Height : 157.0 cm(Converted to: 5 ft 2 inch(es), 61.81 inch(es)) Actual Weight : 86.8 kg(Converted to: 191 lb 6 oz) Weight Source : Standing scale Dosing Weight Clinic : 86.8 kg Clinic BSA : 1.95 Body Mass Index : 35.21 kg/m2 WILLIAM MISHRA LPN - 04/30/2013 17:54 COUNTER WEIGHER General Info Information Given By : Patient Languages : Ecuadorean WILLIAM MISHRA LPN - 04/30/2013 17:54 COUNTER WEIGHER Subjective Pain Symptoms : No WILLIAM MISHRA LPN - 04/30/2013 17:54 COUNTER WEIGHER Dependent Habits Tobacco Use/Currently Using : Yes Tobacco Use/Advised to Quit : Yes Exposure to Tobacco Smoke : Patient smokes Smoking Status : Current some day smoker WILLIAM MISHRA LPN - 04/30/2013 17:54 COUNTER WEIGHER Tobacco Use Grid Type : Cigarettes WILLIAM MISHRA LPN - 04/30/2013 17:54 COUNTER WEIGHER Alcohol Use : No WILLIAM MISHRA LPN 04/30/2013 17:54 COUNTER WEIGHER Caffeine Use Grid Caffeine Use : Current Type : Soft drinks Frequency : Occasionally WILLIAM MISHRA LPN - 04/30/2013 17:54 COUNTER WEIGHER Recreational Drug Use Grid Drug Use : None WILLIAM MISHRA LPN - 04/30/2013 17:54 COUNTER WEIGHER Source: [facility] ImpulseSave Document Id: [id number] COUNTER WEIGHER!42 TER WEIGHER Miscellaneous - Conversion, Historical Provider Ser - 04/24/2013 8:38 AM COUNTER WEIGHER US orders/confirmation of Document Contains Addenda Addendum by ANDREW VERA DNP, HOME HEALTH CAREGIVER on 27 April 2013 10:23:01 COUNTER WEIGHER may cancel Addendum by WILLIAM MISHRA LPN on 26 April 2013 12:02:10 COUNTER WEIGHER From: WILLIAM MISHRA LPN To: AISHWARYA CHEN; Sent: 04/26/2013 12:02:10 COUNTER WEIGHER Subject: RE: US orders/confirmation of Yes but she's not do to go for a few wks yet. Addendum by AISHWARYA CHEN on 26 April 2013 12:01:11 COUNTER WEIGHER From: AISHWARYA CHEN To: WILLIAM MISHRA LPN; Sent: 04/26/2013 12:01:11 COUNTER WEIGHER Subject: RE: US orders/confirmation of Does she wish to go to [place]? If so, I will need an order to fax over before they will schedule. If she plans to have it here Andrew will need to put an order in so Keli can call to schedule. Addendum by WILLIAM MISHRA LPN on 26 April 2013 11:28:06 COUNTER WEIGHER From: WILLIAM MISHRA LPN To: AISHWARYA CHEN; Sent: 04/26/2013 11:28:06 COUNTER WEIGHER Subject: FW: US orders/confirmation of Andrew wanted this scheduled in 12 wks. She doesn't want to go to [place] any more. Thats where I was checking on it for her. Addendum by AISHWARYA CHEN on 26 April 2013 10:28:25 COUNTER WEIGHER From: AISHWARYA CHEN To: ANDREW VERA DNP, FNP; Sent: 04/26/2013 10:28:25 COUNTER WEIGHER Subject: RE: US orders/confirmation of Andrew, I can refer this patient to [place] for US once I recieve an order. Please advise. Addendum by MERRITT ABDALLA RN on 26 April 2013 09:39:16 COUNTER WEIGHER From: MERRITT ABDALLA RN ([place] Nurse Triage eRx Routing Errors) To: WILLIAM MISHRA LPN; AISHWARYA CHNE; Sent: 04/26/2013 09:39:16 COUNTER WEIGHER Subject: FW: US orders/confirmation of did someone see this? Addendum by ANDREW VERA DNP, FNP on 25 April 2013 12:51:00 COUNTER WEIGHER From: ANDREW VERA DNP, FNP To: WILLIAM MISHRA LPN; Sent: 04/25/2013 12:51:00 COUNTER WEIGHER Subject: FW: US orders/confirmation of Addendum by ANDREW VERA DNP, FNP on 25 April 2013 12:50:53 COUNTER WEIGHER From: ANDREW VERA DNP, FNP To: [place] Nurse Triage eRx Routing Errors; Sent: 04/25/2013 12:50:53 COUNTER WEIGHER Subject: RE: US orders/confirmation of Addendum by ANDREW VERA DNP, FNP on 25 April 2013 12:50:50 COUNTER WEIGHER William, can you arrage? US at 12 weeks. please advise. From: TIRSO RIOS V ([place] Nurse Triage eRx Routing Errors) To: ANDREW VERA DNP, HOME HEALTH CAREGIVER; Cc: AISHWARYA CHEN; Sent: 04/24/2013 08:38:31 COUNTER WEIGHER Subject: US orders/confirmation of Pt wants to schedule US in [place]. States they are waiting for orders from you & they need tests results too faxed to [phone]. Source: [facility] POWERCHART Document Id: [id number] documented in this encounter Plan of Treatment Not on filedocumented as of this encounter Visit Diagnoses Not on filedocumented in this encounter
--- OUTSIDE RECORDS SUMMARY | 2022-03-16 15:08 | XMS_ITS | Encounter Summary ---
:1980 Author Organization [facility] Address [address] [place] [address] Care Team Providers Name Role Phone Unavailable Primary Care Provider Unavailable Encounter Details Date Type Department Care Team Description 02/21/2013 Hospital Encounter HX [facility] ME Andrew Vera, LO, C.N.P., D. N.P. [address] [place] [address] (Wo rk) Social History Tobacco [...] Sign Reading Time Taken Comments Blood Pressure 110/70 02/21/2013 8:02 AM MOUSE BREEDER Pulse 64 02/21/2013 8:02 AM MOUSE BREEDER Temperature - - Respiratory Rate 16 02/21/2013 8:02 AM MOUSE BREEDER Oxygen Saturation - - Inhaled Oxygen Concentration - - Weight 85.5 kg (188 lb 7.9 oz) 02/21/2013 8:02 AM MOUSE BREEDER Height 158 cm (5' 2.21) 02/21/2013 8:02 AM MOUSE BREEDER Body Mass Index 34.25 02/21/2013 8:02 AM MOUSE BREEDER documented in this encounter Progress Notes Andrew Vera D.N.P., C.N.P. - 02/21/2013 7:58 AM CST [id number] CHIEF COMPLAINT/REASON FOR VISIT 1. Left heel pain. 2. Allergies. HISTORY OF PRESENT ILLNESS The patient is a 32-year-old female who presents to the clinic today with a chief complaint of some left heel pain that has been present now for approximately the past week to week and a half duration.She does indicate that she did recently change her shoes to a solar installation foreman fitting tennis show in which she indicates that is about when the symptoms became more pronounced. She indicates that weightbearingjust on the left heel causes some discomfort. She otherwise indicates that she is not taking anything [id number] to help with her symptoms but has more so avoided being barefoot. She indicates that she is not having any numbness or tingling to the foot. She also indicates that she has suffered from seasonal environmental allergies in which previously I had seen the patient on 02/11/2013 in which she had required information indicating her allergies and her ability to work for unemployment. Sheis coming in today as she indicates that the dates need to be predated back to December of 2012. She otherwise indicates that she is not having any other further concerns or issues with her allergies at this time. PAST MEDICAL/SURGICAL HISTORY Reviewed. Please see chart. FAMILY HISTORY Reviewed. Please see chart. MEDICATIONS Reviewed. Please see chart. ALLERGIES Reviewed. Please see chart. PHYSICAL EXAMINATION GENERAL: The patient is an alert, well nourished 32-year-old female who appears to be in no acute distress. HEAD: Normocephalic, atraumatic. EXTREMITIES: Left lower extremity is not noted to have any edema or discoloration and no openings tothe skin is noted but noted significant discomfort with palpation of the left heel. Examination is otherwise unremarkable. RADIOLOGY: Two views of the left heel are presently pending. IMPRESSION/REPORT/PLAN 1. Left heel pain. 2. Allergic rhinitis. PLAN: 1. Left heel pain: Presently at this time we will plan on contacting the patient regarding the radiographic findings. I did recommend that she wear more of a supportive shoe to help with her heel pain.Indicated that if any symptoms worsen or continue follow-up would be warranted. The patient felt comfortable with this treatment plan. 2. Allergic rhinitis: Presently at this time I did provide her disability paperwork indicating that she does have a history of allergic rhinitis and prescription medication was given in June of 2011, and she was first treated for this in June of 2011. I did predate her dates indicating that she has been fully able to work without restrictions from December 27, 2012, to the current. The patient fell comfortable with this treatment plan as she otherwise denied having any further questions or concerns. The patient ambulated out of the clinic in no acute distress. Patient Education Ready to learn No apparent learning barriers were identified Learning preferences include listening Explained diagnosis and treatment plan Patient/Child/Caregiver expressed understanding of the content Tristin Jacobs.N.P./F.N.P/[facility] Electronically Signed By: ANDREW VERA DNP, FNP On: 02/21/2013 03:30 PM Source: [facility] HEROSDOLBEYNBRIGHTSYS Document Id: [id number] E BREEDER documented in this encounter Miscellaneous Notes Miscellaneous - Andrew Vera D.N.P., C.N.P. - 02/21/2013 11:42 AM MOUSE BREEDER Results Notification Document Contains Addenda Addendum by WILLIAM MISHRA LPN on 21 February 2013 15:25:42 MOUSE BREEDER Spoke with Carter regarding xray results. From: ANDREW VERA DNP, FNP To: WILLIAM MISHRA LPN; Sent: 02/21/2013 11:42:56 MOUSE BREEDER ! Show up: 02/21/2013 17:42:56 [facility] Subject: Results Notification Actions: Notify patient of results Reminder Comments: please call pt. with results, if symptoms continue even if changing shoes doesn't help, follow up iswarranted. Results: Date Result Type Result Name 02/21/2013 9:12 Radiology XR Heel Left 2 views Source: [facility] POWERCHART Document Id: [id number] Electronically signed by Lesley [facility] Fuel Retrofitting Technician [id number] at 09/13/2016 11:44 PM CDT Miscellaneous - Andrew Vera D.N.P., C.N.P. - 02/21/2013 8:53 AM MOUSE BREEDER Ambulatory Patient Summary [address] [address] Visit Information Name: RODRICK CARTERDERRICK BUSH [facility] Number: [id number] Current Date: 02/21/2013 08:53:52 Physicians Attending Provider: ANDREW VERA DNP, FNP [...] medications. Medication/Strength Dose Route Frequency Indications/Special Instructions/Comments/Notes ketorolac [...] appointment detail needed. Your Goals/Additional instructions: Source: [facility] POWERCHART Document Id: [id number] E BREEDER Miscellaneous - Andrew Vera D.N.Samy., C.N.P. - 02/21/2013 8:53 AM MOUSE BREEDER Ambulatory Depart Summary [address] [address] Visit Information Name: CARTER MENSAH [facility] Number: [id number] Visit Date: 02/21/2013 08:53:51 Attending Provider: ANDREW VERA DNP, FNP Primary [...] medications. Medication/Strength Dose Route Frequency Indications/Special Instructions/Comments/Notes ketorolac [...] your provider for clarification. Additional Information: Source: [facility] POWERCHART Document Id: [id number] E BREEDER Miscellaneous - William Mishra L.PLashawnN. - 02/21/2013 8:02 AM CST Adult Clinical Supervisor Intake/History Adult Clinical Supervisor Intake/History Entered On: 02/21/2013 8:06 MOUSE BREEDER Performed On: 02/21/2013 8:02 MOUSE BREEDER by WILLIAM MISHRA LPN Intake Chief Complaint : Paperwork for unemployment Left heel hurts for about a wk Temperature Core : 36.6 DegC(Converted to: 97.9 DegF) Peripheral Pulse Rate : 64 /min Respiratory Rate : 16 /min Heart Rhythm : Regular Systolic Blood Pressure : 110 mmHg Diastolic Blood Pressure : 70 mmHg NIBP Mean : 83 mmHg BP Location : Left upper extremity Blood Pressure Cuff Size : Regular Height : 158.0 cm(Converted to: 5 ft 2 inch(es), 62.20 inch(es)) Actual Weight : 85.5 kg(Converted to: 188 lb 8 oz) Weight Source : Standing scale Dosing Weight Clinic : 85.5 kg Clinic BSA : 1.94 Body Mass Index : 34.25 kg/m2 WILLIAM MISHRA LPN - 02/21/2013 8:02 MOUSE BREEDER General Info Information Given By : Patient Languages : Portuguese WILLIAM MISHRA LPN - 02/21/2013 8:02 MOUSE BREEDER Subjective Pain Symptoms : No WILLIAM MISHRA METAL STUD FRAMER - 02/21/2013 8:02 MOUSE BREEDER Dependent Habits Tobacco Use/Currently Using : Yes Tobacco Use/Advised to Quit : Yes Exposure to Tobacco Smoke : Patient smokes Smoking Status : Current every day smoker WILLIAM MISHRA LPN - 02/21/2013 8:02 MOUSE BREEDER Tobacco Use Grid Type : Cigarettes Cigarette Use Packs/Day : 0.5 WILLIAM MISHRA LPN - 02/21/2013 8:02 MOUSE BREEDER Alcohol Use : Yes WILLIAM MISHRA LPN - 02/21/2013 8:02 MOUSE BREEDER Caffeine Use Grid Caffeine Use : Current Type : Soft drinks Frequency : Daily WILLIAM MISHRA LPN - 02/21/2013 8:02 MOUSE BREEDER Recreational Drug Use Grid Drug Use : None WILLIAM MISHRA LPN - 02/21/2013 8:02 MOUSE BREEDER Source: [facility] Meebler Document Id: [id number] MOUSE BREEDER!41 E BREEDER documented in this encounter Plan of Treatment Not on filedocumented as of this encounter Visit Diagnoses Not on filedocumented in this encounter
--- OUTSIDE RECORDS SUMMARY | 2022-03-16 15:08 | XMS_ITS | Encounter Summary ---
:1980 Author Organization [facility] Address [address] [place] [address] Care Team Providers Name Role Phone Unavailable Primary Care Provider Unavailable Encounter Details Date Type Department Care Team Description 12/05/2012 Hospital Encounter HX [facility] Zina Campbell, LO, C.N.P., D.N.P. [address] [phone] (Wo rk) Social History Tobacco Use [...]
--- OUTSIDE RECORDS SUMMARY | 2022-03-16 15:08 | XMS_ITS | Encounter Summary ---
:1980 Author Organization [facility] Address [address] [place] [address] Care Team Providers Name Role Phone Unavailable Primary Care Provider Unavailable Encounter Details Date Type Department Care Team Description 04/12/2013 Hospital Encounter HX [facility] Andrew Vera, LO, C.N.P., D. N.P. [address] [place] [address] (Wo rk) Social History Tobacco [...] Reading Time Taken Comments Blood Pressure 104/70 04/12/2013 7:30 AM MARBLE INSTALLER SUPERVISOR Pulse 64 04/12/2013 7:30 AM MARBLE INSTALLER SUPERVISOR Temperature - - Respiratory Rate 16 04/12/2013 7:30 AM MARBLE INSTALLER SUPERVISOR Oxygen Saturation - - Inhaled Oxygen Concentration - - Weight 86.5 kg (190 lb 11.2 oz) 04/12/2013 7:30 AM MARBLE INSTALLER SUPERVISOR Height 157 cm (5' 1.81) 04/12/2013 7:30 AM MARBLE INSTALLER SUPERVISOR Body Mass Index 35.09 04/12/2013 7:30 AM MARBLE INSTALLER SUPERVISOR documented in this encounter Progress Notes Andrew Vera D.N.P., C.N.P. - 04/12/2013 7:27 AM CST [id number] CHIEF COMPLAINT/REASON FOR VISIT Follow up. HISTORY OF PRESENT ILLNESS The patient is a 32-year-old female that presents to the clinic today after ongoing nasal congestionand cough. I will note that the patient was previously seen back on March 04, 2013 in which she was diagnosed with having URI like symptoms for approximately 4 days duration. She was started on Medrol dose pack and given Robitussin with codeine to help with her cough. She indicates then she returned back into the clinic on 03/21/2013 with continued symptoms and was placed on Levaquin 500 mg daily for 7 days duration. She indicates that though her sinuses have improved and so have her lungs, she feels like she has shortness of breath secondary to significant coughing. I will note then she follow up in the emergency room on 04/06/2013 with continued symptoms and once again was placed on prednisone 40 mg daily for 5 days in addition to DuoNebs. She indicates that, though she does have a history of allergies, she has never really had any issues with asthma. She has previously in the past use albuterol inhalers, but indicates most of her allergies have been well controlled on Singulair. I will note then she had followed up again with continued cough on 04/10/2013 within the emergency room in which she was given another prescription for Robitussin for cough suppression and advised to finish her prednisone taper and continue on the DuoNeb. She was complaining of some pain in the throat and therefore was given some Cepacol lozenges and spray to help decrease her irritation. She is coming in today to continue her follow-up care. She does have a history of smoking approximately one pack per day, but indicates that she quit smoking on April 09, 2013. PAST MEDICAL/SURGICAL HISTORY Reviewed. Please see chart. FAMILY HISTORY Reviewed. Please see chart. MEDICATIONS Reviewed. Please see chart. ALLERGIES Reviewed. Please see chart. PHYSICAL EXAMINATION OBJECTIVE: Patient is alert/oriented x 3. HEAD: Normocephalic/atraumatic. PUPILS: GLEN. OROPHARYNX: Oropharynx is noted to have some erythema with exudate that is present in which this is to the upper palate and also to the tongue. TMs: Bilateral TMs are clear, bony landmarks noted and WNL. NARES: Patent, no erythema or drainage noted. NECK: Bilateral anterior lymphadenopathy is also noted on examination. HEART: Regular S1, S2, no murmurs, rubs or gallops noted. LUNGS: Clear to auscultation, no prolonged expiratory phases, wheezing, rales or rhonchi noted. SKIN: Without unusual rashes or suspicious lesions Peak flows are noted to be 310, 390 and 350 (should be 475 to 489 according to the patient's age andheight). LABS: WBC 14.4, hemoglobin 10.4, neutrophil absolute 7.81, lymphocyte absolute 5.34, monocyte absolute 0.96, sodium 140.8, potassium 3.6, creatinine 0.54, GFR greater than 60, AST 20, ALT 16. InfluenzaA and B were also noted to be unremarkable and negative. IMPRESSION/REPORT/PLAN 1. Allergic rhinitis. 2. Cough. PLAN: Discussed the overall findings at length with the patient. She does have one day to finish herprednisone, but given her peak flows are greater than 50% predicted and I do not auscultate any wheezing on examination and her lung sounds are otherwise clear, after discussing her care with the pharmacist (Jonnie), we were both in agreement that we can discontinue the prednisone at this time given herpeak flow readings. We will also have her discontinue the DuoNebs as again her lung sounds are notedto be clear to auscultation and her peak flows are satisfactory. We indicated that we may be able toget better symptom control just with cough suppression in which she was given Robitussin with codeine with instructions to take 5 to 10 mL by mouth every 4 to 6 hours as need for cough, number 240 mL with no refills were authorized. Side effects of the medication including category was discussed at length with the patient. Unfortunately, I indicated that at least by eliminating two categoryC medications, doing Robitussin with codeine may provide her with a little bit better benefit, though indicated this again is a category C in . The patient is also advised to follow up with mein 1 week duration for reevaluation and also recheck her CBC and differential panel. The patient felt very comfortable with this treatment plan. I also did give her nystatin 100,000 units per oral liquid suspension to gargle and rinse 4 times a day as needed. The patient again felt very comfortable with this treatment plan. She otherwise denied having any further questions or concerns. Patient ambulated out of the clinic in no acute distress. PATIENT EDUCATION: Ready to learn No apparent learning barriers were identified Learning preferences include listening Explained diagnosis and treatment plan Patient/Child/Caregiver expressed understanding of the content Leslie JacobsN.PLashawn/F.N.P/andre Electronically Signed By: ANDREW VERA DNP, FNP On: 04/18/2013 01:16 PM Source: [facility] MHSDOLBEYNONRADSYS Document Id: [id number] LE INSTALLER SUPERVISOR documented in this encounter Procedure Notes William Mishra L.P.N. - 04/12/2013 7:35 AM CST Peak Flow POC Peak Flow POC Entered On: 04/12/2013 7:36 MARBLE INSTALLER SUPERVISOR Performed On: 04/12/2013 7:35 MARBLE INSTALLER SUPERVISOR by MISHRA, HETTIE L BURRER MACHINE Peak Flow POC Peak Flow POC Initial : 310 L/sec Peak Flow POC #2 : 390 L/sec Peak Flow POC #3 : 350 L/sec Patient Effort Peak Flow POC : WILLIAM Cason BURRER MACHINE - 04/12/2013 7:35 MARBLE INSTALLER SUPERVISOR Source: [facility] POWERCHART Document Id: [id number] MARBLE INSTALLER SUPERVISOR!6 LE INSTALLER SUPERVISOR documented in this encounter Miscellaneous Notes Miscellaneous - Andrew Vera D.N.P., C.N.P. - 04/12/2013 1:02 PM MARBLE INSTALLER SUPERVISOR Ambulatory Patient Summary [address] [address] Visit Information Name: CARTER MENSAH ELEAZAR [facility] Number: [id number] Current Date: 04/12/2013 13:02:07 Physicians Attending Provider: ANDREW VERA DNP, FNP Primary Care Provider: ANDREW VERA DNP, FNP RODRICK CARTER BUSH has been given the following list [...] needed for Shortness of breath / Wheezing codeine-guaiFENesin (codeine-guaiFENesin 10 mg-100 mg/5 mL oral syrup) 5-10 mL, Oral, every 4 hours as needed for cough New Routed to [facility] guaiFENesin (Robitussin) 100 mg, Oral, every 4 hours ipratropium-albuterol (DuoNeb 0.5 mg-2.5 mg/3 mL inhalation solution) 3 Milliliter, Nebulized inhalation, four times a day *montelukast (Singulair 10 mg oral tablet) 1 Tablet(s), Oral, every evening multivitamin, ( Multivitamins oral tablet) 1 Tablet(s), Oral, once a day nystatin (nystatin 100,000 units/mL oral suspension) 5 Milliliter, Oral, four times a day as needed for Mouth sore pain x 7 day(s) retain in mouth as long as possible before swallowing New Routed to [address] [address] ondansetron (Zofran 4 mg oral tablet) 1 Tablet(s), Oral, every 8 hours as needed for Nausea * You have let us know that you are not taking this medication as listed. Please talk with your primary care provider or the health care provider who prescribed the medication as soon as possible. Stop Taking the Following Medications: Medication list as of 04-12-13 13:02 Attention: If you have any medications at [...] appointment detail needed. Your Goals/Additional instructions: Source: [facility] POWERCHART Document Id: [id number] LE INSTALLER SUPERVISOR Miscellaneous - Andrew Vera, Tristin.N.P., C.N.P. - 04/12/2013 1:02 PM MARBLE INSTALLER SUPERVISOR Ambulatory Depart Summary [facility] [address] [place] [address] Visit Information Name: CARTER MENSAH [facility] Number: [id number] Visit Date: 04/12/2013 13:02:04 Attending Provider: ANDREW VERA DNP, FNP Primary [...] needed for Shortness of breath / Wheezing codeine-guaiFENesin (codeine-guaiFENesin 10 mg-100 mg/5 mL oral syrup) 5-10 mL, Oral, every 4 hours as needed for cough New Routed to Pr[facility] guaiFENesin (Robitussin) 100 mg, Oral, every 4 hours ipratropium-albuterol (DuoNeb 0.5 mg-2.5 mg/3 mL inhalation solution) 3 Milliliter, Nebulized inhalation, four times a day *montelukast (Singulair 10 mg oral tablet) 1 Tablet(s), Oral, every evening multivitamin, ( Multivitamins oral tablet) 1 Tablet(s), Oral, once a day nystatin (nystatin 100,000 units/mL oral suspension) 5 Milliliter, Oral, four times a day as needed for Mouth sore pain x 7 day(s) retain in mouth as long as possible before swallowing New Routed to [facility] [address] [address] ondansetron (Zofran 4 mg oral tablet) 1 Tablet(s), Oral, every 8 hours as needed for Nausea * You have let us know that you are not taking this medication as listed. Please talk with your primary care provider or the health care provider who prescribed the medication as soon as possible. Stop Taking the Following Medications: Medication list as of 04-12-13 13:02 Attention: If you have any medications at home that are not on this list, DO NOT take them until youcontact your provider for clarification. Give a copy of your medication list to your primary care provider. Update your medication list any time medications or doses are changed and carry your medication list at all times in case of emergency. Additional Information: Source: [facility] POWERCHART Document Id: [id number] LE INSTALLER SUPERVISOR Miscellaneous - William Mishra L.P.N. - 04/12/2013 7:30 AM CST Adult Wireless Consultant Intake/History Adult Wireless Consultant Intake/History Entered On: 04/12/2013 7:35 MARBLE INSTALLER SUPERVISOR Performed On: 04/12/2013 7:30 MARBLE INSTALLER SUPERVISOR by WILLIAM MISHRA LPN Intake Chief Complaint : F/U ER visit on 04/10/13, nebs not helping, no antibiotics 6wks , Temperature Core : 36.4 DegC(Converted to: 97.5 DegF) (LOW) Peripheral Pulse Rate : 64 /min Respiratory Rate : 16 /min Heart Rhythm : Regular Systolic Blood Pressure : 104 mmHg Diastolic Blood Pressure : 70 mmHg NIBP Mean : 81 mmHg BP Location : Right upper extremity Blood Pressure Cuff Size : Regular SpO2 : 98 % Oxygen Therapy : Room air Height : 157.0 cm(Converted to: 5 ft 2 inch(es), 61.81 inch(es)) Actual Weight : 86.5 kg(Converted to: 190 lb 11 oz) Weight Source : Standing scale Dosing Weight Clinic : 86.5 kg Clinic BSA : 1.94 Body Mass Index : 35.09 kg/m2 WILLIAM MISHRA LPN - 04/12/2013 7:30 MARBLE INSTALLER SUPERVISOR General Info Information Given By : Patient Languages : Estonian WILLIAM MISHRA LPN - 04/12/2013 7:30 MARBLE INSTALLER SUPERVISOR Subjective Pain Symptoms : No WILLIAM MISHRA LPN - 04/12/2013 7:30 MARBLE INSTALLER SUPERVISOR Dependent Habits Tobacco Use/Currently Using : Yes Tobacco Use/Advised to Quit : Yes Exposure to Tobacco Smoke : Patient smokes Smoking Status : Current every day smoker WILLIAM MISHRA LPN - 04/12/2013 7:30 MARBLE INSTALLER SUPERVISOR Tobacco Use Grid Type : Cigarettes Cigarette Use Packs/Day : 1 WILLIAM MISHRA [facility] - 04/12/2013 7:30 MARBLE INSTALLER SUPERVISOR Alcohol Use : Yes WILLIAM MISHRA [facility] - 04/12/2013 7:30 MARBLE INSTALLER SUPERVISOR Caffeine Use Grid Caffeine Use : Current Type : Soft drinks Frequency : Daily WILLIAM MISHRA [facility] - 04/12/2013 7:30 MARBLE INSTALLER SUPERVISOR Recreational Drug Use Grid Drug Use : None WILLIAM MISHRA [facility] - 04/12/2013 7:30 MARBLE INSTALLER SUPERVISOR Source: [facility] POWERCHART Document Id: [id number] MARBLE INSTALLER SUPERVISOR!43 LE INSTALLER SUPERVISOR documented in this encounter Plan of Treatment Not on filedocumented as of this encounter Procedures Procedure Name Priority Date/Time Associated Comments Diagnosis AUTOMATED Routine 04/12/2013 8:09 AM Results f or this DIFFERENTIAL, B MARBLE INSTALLER SUPERVISOR procedure ar e in the results section. CBC WITH DIFFERENTIAL, Routine 04/12/2013 8:09 AM Results for this B MARBLE INSTALLER SUPERVISOR procedure are i n the results section. COMPREHENSIVE Routine 04/12/2013 8:09 AM Results for this METABOLIC PANEL, S/P MARBLE INSTALLER SUPERVISOR procedu re are in the results section. INFLUENZA A/B Routine 04/12/2013 8:05 AM Results for this MARBLE INSTALLER SUPERVISOR procedure are i n the results section. documented in this encounter Results (ABNORMAL) Automated Differential (04/12/2013 8:09 AM MARBLE INSTALLER SUPERVISOR) [facility] Method Time Signature Neutro % 54.1 42.0 - POWERCHART 77.0 Lymphocytes % 37.0 23.0 - POWERCHART 44.0 HX [place] % 6.7 2.0 - 18.0 POWERCHART HX Eos % 1.9 1.0 - 5.0 POWERCHART HX Baso % 0.3 0.0 - 1.0 POWERCHART Absolute 7.81 (H) 1.70 - POWERCHART Neutrophils 7.00 109L Lymphocytes 5.34 (H) 0.90 - POWERCHART 2.90 X109L Monocytes 0.96 (H) 0.30 - POWERCHART 0.90 X109L Eosinophils 0.27 0.05 - POWERCHART 0.50 X109L Absolute 0.04 0.00 - POWERCHART Basophil 0.30 X109L Specimen Anatomical Collection Method Collection Time Receive d Time (Source) Location / / Volume Laterality Blood 04/12/2013 8:09 AM 3 8:09 MARBLE INSTALLER SUPERVISOR AM MARBLE INSTALLER SUPERVISOR Andrew Vera APRN C.N.P., D.N.P. LAB BLOOD ADD- ON Performing Organization Address City/[facility] Code Phon e Number POWERCHART (ABNORMAL) CBC with Differential (04/12/2013 8:09 AM MARBLE INSTALLER SUPERVISOR) [facility] SampleBoard Method Time Signature Leukocytes 14.4 (H) 3.4 - POWERCHART 10.5 X109L Erythrocytes 3.37 (L) 3.90 - POWERCHART 5.03 [id number] Hemoglobin 10.4 (L) 12.0 - POWERCHART 15.5 GDL Hematocrit 32.0 (L) 34.9 - POWERCHART 44.5 MCV 95.0 82.0 - POWERCHART 98.0 FL HX RDW 12.5 11.9 - POWERCHART 15.5 Platelet Count 350 150 - 450 POWERCHART X109L HXDifferential? Auto POWERCHART Comment Slide POWERCHART reviewed Comment: Atypical lymphs present. Specimen (Source) Anatomical Collection Method Collection Time Re ceived Time Location / / Volume Laterality Blood 04/12/2013 8:09 AM MARBLE INSTALLER SUPERVISOR Andrew L Adrian BLANCHARD, C.N.P., D.N.P. LAB BLOOD ADD- ON Performing Organization Address City/[facility] Phon e Number POWERCHART (ABNORMAL) CMP (Comprehensive Metabolic Panel) (04/12/2013 8:09 AM MARBLE INSTALLER SUPERVISOR) [facility] Method Time Signature Anion Gap 16 10 - 20 POWERCHART MMOLL Alkaline 61 37 - 98 POWERCHART Phosphatase, S UL Alanine 16 15 - 37 POWERCHART Amniotransferase, LD UL Aspartate 20 12 - 31 POWERCHART Aminotransferase UL (AST), S Bilirubin, Total, S 0.3 0.1 - 1.0 POWERCHART MGDL BUN (Blood Urea 10 7 - 18 POWERCHART Nitrogen), S MGDL Chloride, S 106 98 - 107 POWERCHART MMOLL CO2 Total 22.7 (L) 23.0 - POWERCHART 29.0 MMOLL Creatinine 0.54 (L) 0.60 - POWERCHART 1.30 MGDL Total Protein, S 6.0 (L) 6.3 - 7.9 POWERCHART GDL Glucose 86 70 - 139 POWERCHART MGDL Calcium, Total, S 8.6 8.6 - POWERCHART 10.0 MGDL Sodium, S 140.8 135.0 - POWERCHART 145.0 MML Potassium, S 3.6 3.6 - 4.8 POWERCHART MMOLL Albumin, S 3.5 3.5 - 5.0 POWERCHART GDL HXeGFR (MDRD) >60 >=60 POWERCHART [id number] 2 eGFR Black/ >60 >=60 POWERCHART Icelandic [id number] Specimen (Source) Anatomical Collection Method Collection Time Re ceived Time Location / / Volume Laterality Blood 04/12/2013 8:09 AM MARBLE INSTALLER SUPERVISOR Andrew Vera APRN, C.N.P., D.N.P. LAB BLOOD ADD- ON Performing Organization Address City/State/[facility] Code Phon e Number POWERCHART Influenza A/B (04/12/2013 8:05 AM MARBLE INSTALLER SUPERVISOR) P athologist Signature HXInfluenza A POWERCHART and B AG Comment: If result is negative: The sensitivity/specificity of the Influ manny A screening test is 80% and 93% respectively. The sensitivity/specificity of the Influ manny B screening test is 65% and 97% respectively. If further testing is indicated, please call the laboratory to order the referred MML PCR test. HXFinal Negative for Influenzae A protein antigen. POWERCHART HXFinal Negative for Influenzae B protein antigen. POWERCHART HXFinal Reference: Negative for Influenzae A and Influenzae B POWERCHART protein antigens. Specimen (Source) Anatomical Collection Method Collection Time Re ceived Time Location / / Volume Laterality Nasal 04/12/2013 8:05 AM MARBLE INSTALLER SUPERVISOR Andrew Vera APRN, C.N.P., D.N.P. LAB MICROBIOLO GY - GENERAL ORDERABLES Performing Organization Address City/State/ZIP Code Phon e Number POWERCHART documented in this encounter Visit Diagnoses Not on filedocumented in this encounter
--- OUTSIDE RECORDS SUMMARY | 2022-03-16 15:08 | XMS_ITS | Encounter Summary ---
:1980 Author Organization [facility] Address [address] [place] [address] Care Team Providers Name Role Phone Unavailable Primary Care Provider Unavailable Encounter Details Date Type Department Care Team Description 10/04/2012 Hospital Encounter HX [facility] Quique, Carmen murphy P.A.-C., P.A. [address] [place] [address] (Wo rk) Social History Tobacco [...] or relatives? How often do you attend oriental orthodox or More than 4 times per year 11/09/2020 gnosticism services? Do you belong to any clubs or No 11/09/2020 organizations such as oriental orthodox groups, unions, fraternal or athletic groups, [...] Sign Reading Time Taken Comments Blood Pressure 94/58 10/04/2012 3:51 PM CDT Pulse 72 10/04/2012 3:51 PM CDT Temperature - - Respiratory Rate 16 10/04/2012 3:51 PM CDT Oxygen Saturation - - Inhaled Oxygen Concentration - - Weight 79.4 kg (175 lb 0.7 oz) 10/04/2012 3:51 PM CDT Height - - Body Mass Index 32.05 10/01/2012 7:18 AM CDT documented in this encounter Progress Notes Jolene Mensah - 10/04/2012 3:45 PM CDT [id number] CHIEF COMPLAINT/REASON FOR VISIT This is a 32-year-old female seen today complaining of an ongoing rash. She was seen here in the clinic 3 days ago, with the same rash, states it just has not gotten any better, it is located on her chest and on her upper arms. She has continued to have sun exposure, and states that just is not improving. She has been trying [id number] medications and they are not helping. 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 She wears a tank top and does have constant exposure but at this point it is uncomfortable to wear a shirt that covers it. CURRENT MEDICATIONS Past medical history and surgical history are reviewed in the EMR. VITAL SIGNS Rate 72. Respirations 16. Blood pressure 94/58. Weight 79.4 kg. PHYSICAL EXAMINATION IN GENERAL: She is alert. Interactive and cooperative. Appears to be well- nourished, well hydrated and in no acute distress. CHEST: On inspection of her chest and upper arms she has a fair amount of large erythematous rash, afew of them are almost vesicular, it is all raised to palpation. There is no sign of infection. IMPRESSION/REPORT/PLAN Polymorphous light eruption. I am going to treat her with a higher potency topical steroid, Triamcinolone 0.5% cream to apply to these areas that itch. She was reassured that it will improve, hopefully in the next week or so. She was, again encouraged to use a strong sun screen and actually try to cover these areas and not exposed them to the UV light at all. She should return for any other questions or concerns. Jolene Mensah P.A.-C./orion Electronically Signed By: JOLENE MENSAH On: 10/09/2012 06:23 PM Source: [facility] MHSDOLBEYNONRADSYS Document Id: [id number] documented in this encounter Miscellaneous Notes Miscellaneous - Jolene Mensah - 10/04/2012 4:29 PM CDT Ambulatory Patient Summary [address] [address] Visit Information Name: CARTER MENSAH [facility] Number: [id number] Current Date: 10/04/2012 16:29:40 Physicians Attending Provider: JOLENE MENSAH Primary Care Provider: ANDREW VERA DNP, CAR DUMPER Your Medications Here is a list of your medications. It is important to take your medications as directed. Use a pillbox or chart to help remind you to take your medications. Please let your doctor or nurse know if you have problems taking your medications. Medication/Strength Dose Route Frequency Indications/Special Instructions/Comments triamcinolone topical (triamcinolone 0.5% topical cream) 1 sonya Topical two times a day buPROPion (Zyban 150 mg/12 hours oral tablet, sustained release) 150 mg Oral two times a day (start 150 mg by mouth daily for 3 days, then twice a day. Stop smoking after 5-7 days of starting medication) montelukast (Singulair 10 mg oral tablet) 10 mg Oral every evening *topiramate (Topamax 50 mg oral tablet) 100 mg Oral once a day fluticasone nasal [...] on the same day you take ibuprofen. * You have let us know that you are not taking this medication as listed. Please talk with your primary care provider or the health care provider who prescribed the medication as soon as possible. Attention: If you have any medications at [...] No Appointments found Your Goals/Additional instructions: Source: [facility] POWERCHART Document Id: [id number] Miscellaneous - Jolene Mensah - 10/04/2012 4:29 PM CDT Ambulatory Depart Summary [address] [place] [address] Visit Information Name: ASAF MENSAHNA ELEAZAR [facility] Number: [id number] Visit Date: 10/04/2012 16:29:39 Attending Provider: JOLENE MENSAH Primary Care Provider: ANDREW VERA DNP, CAR DUMPER CARTER MENSAH has been given the following list of medications: Your Medications It is important to take your medications as directed. Use a pill box or chart to help remind you to take your medications. Please let your doctor or nurse know if you have problems taking your medications. Medication/Strength Dose Route Frequency Indications/Special Instructions/Comments triamcinolone topical (triamcinolone 0.5% topical cream) 1 sonya Topical two times a day buPROPion (Zyban 150 mg/12 hours oral tablet, sustained release) 150 mg Oral two times a day (start 150 mg by mouth daily for 3 days, then twice a day. Stop smoking after 5-7 days of starting medication) montelukast (Singulair 10 mg oral tablet) 10 mg Oral every evening *topiramate (Topamax 50 mg oral tablet) 100 mg Oral once a day fluticasone nasal [...] on the same day you take ibuprofen. * You have let us know that you are not taking this medication as listed. Please talk with your primary care provider or the health care provider who prescribed the medication as soon as possible. Attention: If you have any medications at home that are not on this list, DO NOT take them until youcontact your provider for clarification. Additional Information: Source: [facility] POWERCHART Document Id: [id number] Miscellaneous - Valeriy Baltazar, LLashawnP.N. 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 started on 09/28/12 and has gotten worse. has tried multiple otc treatments no help Ambulatory Intake Additional Information : A&D ointment benedryl(oral and topical) aloe vera vinegar Peripheral Pulse Rate : 72 /min Respiratory Rate : 16 /min Heart Rhythm : Regular Systolic Blood Pressure : 94 mmHg Diastolic Blood Pressure : 58 mmHg NIBP Mean : 70 mmHg BP Location : Right upper extremity Blood Pressure Cuff Size : Regular Actual Weight : 79.4 kg(Converted to: 175 lb 1 oz) Weight Source : Standing scale Dosing Weight Clinic : 79.4 kg VALERIY BALTAZAR - 10/04/2012 15:51 CDT General Info Information Given By : Patient Languages : Bruneian VALERIY BALTAZAR 10/04/2012 15:51 CDT Subjective Pain Symptoms : No VALERIY BALTZAAR 10/04/2012 15:51 CDT Dependent Habits Tobacco Use/Currently Using : Yes Tobacco Use/Advised to Quit : Yes Exposure to Tobacco Smoke : Patient smokes Smoking Status : Current every day smoker VALERIY BALTAZAR 10/04/2012 15:51 CDT Tobacco Use Grid Type : Cigarettes Cigarette Use Packs/Day : 0.5 VALERIY BALTAZAR 10/04/2012 15:51 CDT Caffeine Use Grid Caffeine Use : Current Type : Soft drinks Frequency : Daily VALERIY BALTAZAR 10/04/2012 15:51 CDT Recreational Drug Use Grid Drug Use : None VALERIY BALTAZAR 10/04/2012 15:51 CDT Source: [employer] Document Id: [id number] CDT!37 documented in this encounter Plan of Treatment Not on filedocumented as of this encounter Visit Diagnoses Not on filedocumented in this encounter
--- OUTSIDE RECORDS SUMMARY | 2022-03-16 15:08 | XMS_ITS | Encounter Summary ---
:1980 Author Organization [facility] Address [address] [place] [address] Care Team Providers Name Role Phone Unavailable Primary Care Provider Unavailable Encounter Details Date Type Department Care Team Description 12/04/2012 Hospital Encounter HX [facility] Myrna Edmonds M.D. Social [...] Reading Time Taken Comments Blood Pressure 110/70 12/04/2012 4:20 PM CDT Pulse 72 12/04/2012 4:20 PM CDT Temperature - - Respiratory Rate 14 12/04/2012 4:20 PM CDT Oxygen Saturation - - Inhaled Oxygen Concentration - - Weight 80.3 kg (177 lb 0.5 oz) 12/04/2012 4:20 PM CDT Height 158 cm (5' 2.21) 12/04/2012 4:20 PM CDT Body Mass Index 32.17 12/04/2012 4:20 PM CDT documented in this encounter H&P Notes Myrna Edmonds M.D. - 12/04/2012 3:53 PM CDT [id number] CHIEF COMPLAINT/REASON FOR VISIT Dulce is here for a Preemployment physical. HISTORY OF PRESENT ILLNESS She is going to be working at [employer], I believe, but this is throughout the [employer] in [employer]. 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 It does not involve a lot of heavy lifting. She has no chronic medical conditions that would be likely to interfere with this. IMPRESSION/REPORT/PLAN The employee physical form will be filled out and sent to the agency. She will get a drug screen today and I see no problems with her being employed in that capacity. Myrna Edmonds M.D./andre Electronically Signed By: MYRNA EDMONDS MD On: 12/10/2012 07:50 AM Source: [facility] MHSDOLBENEHEMIAH Document Id: [id number] documented in this encounter Procedure Notes Gi Baltazar L.PLashawnNLashawn - 12/04/2012 4:24 PM CDT Vision Testing Vision Testing Entered On: 12/04/2012 16:25 CDT Performed On: 12/04/2012 16:24 CDT by GI BALTAZAR Vision Testing Corrective Lenses : None Eye, Right w/o Correction : 20/100 Eye, Left w/o Correction : 20/40 GI BALTAZAR - 12/04/2012 16:24 CDT Source: [facility] [employer] Document Id: [id number] CDT!5 documented in this encounter Miscellaneous Notes Miscellaneous - Myrna Edmonds M.D. - 12/04/2012 4:50 PM CDT Ambulatory Patient Summary [id number] [place] [address] Visit Information Name: DULCE MENSAH [facility] Number: [id number] Current Date: 12/04/2012 16:50:45 Physicians Attending Provider: MYRNA EDMONDS MD Primary Care Provider: ANDREW VERA DNP, FEED CRUSHER OPERATOR Your Medications Here is a list of [...] a day as needed for Migraine headache *montelukast (Singulair 10 mg oral tablet) 10 mg Oral every evening ondansetron (Zofran 4 mg oral tablet) 4 [...] No Appointments found Your Goals/Additional instructions: Source: [facility] POWERCHART Document Id: [id number] Miscellaneous - Myrna Edmonds M.D. - 12/04/2012 4:50 PM CDT Ambulatory Depart Summary [address] [address] Visit Information Name: DULCE MENSAH [facility] Number: [id number] Visit Date: 12/04/2012 16:50:43 Attending Provider: MYRNA EDMONDS MD Primary Care Provider: ANDREW VERA DNP, FEED CRUSHER OPERATOR DULCE MENSAH has been given the following [...] a day as needed for Migraine headache *montelukast (Singulair 10 mg oral tablet) 10 mg Oral every evening ondansetron (Zofran 4 mg oral tablet) 4 [...] your provider for clarification. Additional Information: Source: [facility] POWERCHART Document Id: [id number] Miscellaneous - Gi Baltazar L.P.N. 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 [employer] Intake/History Entered On: 12/04/2012 16:24 CDT Performed On: 12/04/2012 16:20 CDT by GI BALTAZAR Intake Chief Complaint : pre employement [employer] [place] needs drug screen Peripheral Pulse Rate : 72 /min Respiratory Rate : 14 /min Heart Rhythm : Regular Systolic Blood Pressure : 110 mmHg Diastolic Blood Pressure : 70 mmHg NIBP Mean : 83 mmHg Height : 158 cm(Converted to: 5 ft 2 inch(es), 62.20 inch(es)) Actual Weight : 80.3 kg(Converted to: 177 lb 0 oz) Weight Source : Standing scale Dosing Weight Clinic : 80.3 kg Clinic BSA : 1.88 Body Mass Index : 32.17 kg/m2 GI BALTAZAR - 12/04/2012 16:20 CDT General Info Information Given By : Patient Languages : Irish GI BALTAZAR - 12/04/2012 16:20 CDT Subjective Pain Symptoms : No GI BALTAZAR 12/04/2012 16:20 CDT Dependent Habits Tobacco Use/Currently Using : Yes Exposure to Tobacco Smoke : Patient smokes Smoking Status : Current every day smoker GI BALTAZAR 12/04/2012 16:20 CDT Tobacco Use Grid Type : Cigarettes Cigarette Use Packs/Day : 0.5 GI BALTAZAR 12/04/2012 16:20 CDT Caffeine Use Grid Caffeine Use : Current Type : Soft drinks Frequency : Daily GI BALTAZAR 12/04/2012 16:20 CDT Recreational Drug Use Grid Drug Use : None GI BALTAZAR - 12/04/2012 16:20 CDT Source: [facility] [employer] Document Id: [id number] CDT!36 documented in this encounter Plan of Treatment Not on filedocumented as of this encounter Visit Diagnoses Not on filedocumented in this encounter
--- OUTSIDE RECORDS SUMMARY | 2022-03-16 15:08 | XMS_ITS | Encounter Summary ---
:1980 Author Organization [facility] Address [address] [place] [address] Care Team Providers Name Role Phone Unavailable Primary Care Provider Unavailable Encounter Details Date Type Department Care Team Description 11/18/2012 Hospital Encounter HX [facility] ED Angel Lyon M.D. [address] [place], [place] [address] (Wo rk) Social History [...] Sign Reading Time Taken Comments Blood Pressure 108/80 11/18/2012 10:02 AM CDT Pulse 87 11/18/2012 10:02 AM CDT Temperature - - Respiratory Rate 20 11/18/2012 10:02 AM CDT Oxygen Saturation - - Inhaled Oxygen Concentration - - Weight - - Height 158 cm (5' 2.21) 11/18/2012 10:02 AM CDT Body Mass Index - - documented in this encounter Discharge Summaries Heaven Beauchamp RLashawnN. - 11/18/2012 11:04 AM CDT ED Discharge Instructions [place] [id number] Name: CARTER LEI Date of : 1980 12:00 AM Visit Date: 11/18/2012 9:46 AM [facility] Number: [id number] Address: [address] [place] [phone] Primary Care Provider: ANDREW VERA DNP, ECHOCARDIOGRAPH TECHNICIAN IMPORTANT: [facility] in [place] would like to thank you for allowing us to assist you with your healthcare needs. The following includes patient education materials and informationregarding your injury/illness. Chief Complaint: Throat pain - Adult; sore throat/cough/congestion Follow-Up Instructions: With: Address: When: ANDREW VERA [address] [place] [phone] Business (1) Within As Needed Comments: Patient Education Materials: 91099 Acute Sinusitis Acute sinusitis is inflammation (irritation and swelling) of the sinuses. It is often due to a bacterial or viral infection of the sinuses. This may follow a cold or other upper respiratory illness. Your doctor can help you find relief. Read on to learn more. What Is Acute Sinusitis? Sinuses are air-filled spaces in the skull behind the face. They are kept moist and clean by a lining of mucosa. Things such as pollen, smoke, and chemical fumes can irritate the mucosa. It can then become inflamed (swell up). As a response to irritation, the mucosa makes more mucus and other fluids. Tiny hairlike cilia cover the mucosa. Cilia help transport mucus toward the opening of the sinus. Toomuch mucus may cause the cilia to stop working. This blocks the sinus opening. A buildup of fluid inthe sinuses then leads to symptoms such as pain and pressure. It an also encourage growth of bacteria in the sinuses. Common Symptoms of Acute Sinusitis You may have: ?? Facial pain ?? Headache ?? Fever ?? Postnasal drip ?? Nasal congestion ?? Redness of facial skin over sinus Diagnosis of Acute Sinusitis The doctor will ask about your symptoms and medical history. An evaluation will be done. A culture (sample of mucus) is sometimes taken to check for bacteria. X-rays may be taken to view fluid in the sinuses. Treatment of Acute Sinusitis Treatment is designed to unblock the sinus opening and help the cilia work again. Antihistamine and decongestant medications may be prescribed. These can reduce inflammation and decrease fluid production. If a bacterial infection is present, it can be treated with antibiotic medication. This medication should be taken until it is gone, even if you feel better. Note that antibiotics will not help a viral infection. ?? 6323-2431 [place] [address]. All rights reserved. This information is not intended as a substitute for professional medical care. Always follow your healthcare professional's instructions. 188411ap BRONCHITIS (Adult: Abx Tx) BRONCHITIS is an infection of the air passages (bronchial tubes). It often occurs during the common cold. Symptoms include cough with mucus (phlegm) and low-grade fever. Bronchitis usually lasts 7-14 days. Mild cases can be treated with simple home remedies. More severe infection is treated with an antibiotic. HOME CARE: 1. If symptoms are severe, rest at home for the first 2-3 days. When you resume activity, don't let yourself get too tired. 2. Do not smoke. Avoid being exposed to the smoke of others. 3. You may use acetaminophen (Tylenol) or ibuprofen (Motrin, Advil) to control fever or pain, unlessanother medicine was prescribed for this. [NOTE: If you have chronic liver or kidney disease or everhad a stomach ulcer or GI bleeding, talk with your doctor before using these medicines.] 4. Your appetite may be poor, so a light diet is fine. Avoid dehydration by drinking 6-8 glasses of fluids per day (water, soft, drinks, juices, tea, soup, etc.). Extra fluids will help loosen secretions in the lungs. 5. Cjqr-zdo-eljznsn cough medicines that contain dextromethorphan (such as Robitussin DM) and decongestants (Actifed or Sudafed) may help relieve cough and congestion. [NOTE: Do not use decongestants if you have high blood pressure.] 6. Finish all antibiotic medicine, even if you are feeling better after only a few days. FOLLOW UP with your doctor or as directed if you dont start to feel better after three days. [NOTE: If you are age 65 or older, or if you have chronic asthma or COPD, we recommend a PNEUMOCOCCAL VACCINATION every five years and a yearly INFLUENZAVACCINATION (FLU-SHOT) every . Ask your doctor about this. If you had an X-ray, a radiologist will review it. You will be notified of any new fi ndings that may affect your care.] GET PROMPT MEDICAL ATTENTION if any of the following occur: ?? Fever over 100.4??F (38.0??C) for more than three days ?? Trouble breathing, wheezing or pain with breathing ?? Coughing up blood or increased amounts of colored sputum Weakness, drowsiness, headache, facial pain, ear pain or a stiff neck ?? [id number] [facility], [address] [place] [address], [place] [address]. All rights reserved. This information is not intended as a substitute for professional medical care. Always follow your healthcare professional's instructions. ED Tests and Procedures: Order Status Strep A Screen Rapid Ordered Discharge Prescriptions & Home Medications: Medication/Strength Dose Route Frequency Indications/Special Instructions/Comments/Notes dextromethorphan-guaiFENesin (Robitussin DM 10 mg-100 mg/5 mL oral liquid) 10 mL Oral every 4 hours levofloxacin (Levaquin 750 mg oral tablet) 750 mg Oral once a day for 5 Days buPROPion (Zyban 150 mg/12 hours oral tablet, sustained release) 150 mg Oral two times a day (start 150 mg by mouth daily for 3 days, then twice a day. May increase to two tabs by mouth twice a day as needed for smoking cessation. Stop smoking after 5-7 days of starting medication) montelukast (Singulair 10 mg oral tablet) 10 mg Oral every evening *fluticasone nasal (Flonase 50 mcg/inh nasal spray) 2 [...] arrange a ride home with a responsible libertarian. RODRICK Ace GINA MARIE , or responsible libertarian have received this information and my questions have been answered. I have discussed any challenges I see with this plan with the nurse or physician. Patient Signature or Responsible Libertarian/Relationship Date Time Provider Signature Date Time Medication [...] as previously prescribed by your regular provider. LAURITA BLAKE: We examined and treated you today on an emergency basis only. This was not a substitute for, or an effort to provide, complete medical care. In most cases, you must let your doctor check you again. Tell your doctor about any new or lasting problems. We cannot recognize and treat all injuries or illnesses in one Emergency Department visit. If you had special tests, such as EKG's or X-rays,we will review them again within 24 hours. We will call you if there are any new suggestions. Pleasefollow the instructions above carefully. If you are being transferred to another facility your follow up plan of care will be determined by the receiving facility. If you are a patient that is being discharged from the Emergency Department after receiving narcotics or other medications that may impair your judgment you may be a risk to yourself or others if you operate a motor vehicle. We recommend that you arrange a ride home with a responsible libertarian. RODRICK Ace GINA MARIE , or responsible libertarian have received this information and my questions have been answered. I have discussed any challenges I see with this plan with the nurse or physician. Patient Signature or Responsible Libertarian/Relationship Date Time Provider Signature Date Time This document has images extracted. Please consider using [employer] for all your patient education needs. Source: [facility] [employer] Document Id: [id number] Heaven Beauchamp R.N. - 11/18/2012 11:04 AM CDT ED Depart Summary [facility] Emergency Department Clinical Discharge Summary PERSON INFORMATION Name CARTER LEI Age 32 Years 1980 12:00 AM Sex Female Language Chinese PCP ANDREW VERA DNP, ECHOCARDIOGRAPH TECHNICIAN Marital Status Single Visit Id Visit Reason Throat pain - Adult; sore throat/cough/congestion Specialty Enc Type Emergency Med Service Emergency Medicine Referred by Track Group [facility] ED Discharge 11/18/2012 11:00 AM Tracking Id [id number] Checkout 11/18/2012 11:00 AM Checkin 11/18/2012 9:46 AM Acuity 4 -Less Urgent Dispo Type * Discharged to Home or Self Care Arrival 11/18/2012 9:46 AM Reg Status LOS 000 01:14 Address: [address] [place] [phone] Comment: PROVIDER INFORMATION Provider Role Provider Contact Time ROSY LYON MD ED Provider 11/18/12 09:48 HEAVEN BEAUCHAMP FOURDRINIER WIRE WEAVER Nurse 11/18/12 10:41 DIAGNOSIS Acute Bronchitis Comment: PATIENT EDUCATION INFORMATION Instructions: Acute Sinusitis; BRONCHITIS, Abx Tx (Adult) Follow up: With: Address: When: ANDREW VERA [address] [place] [phone] Business (1) Within As Needed Comments: Source: [facility] [employer] Document Id: [id number] documented in this encounter ED Notes Heaven Beauchamp R.N. - 11/18/2012 11:03 AM CDT ED Disposition Summary ED Disposition Summary Entered On: 11/18/2012 11:03 CDT Performed On: 11/18/2012 11:03 CDT by HEAVEN BEAUCHAMP RN ED Disposition Summary Accompanied By : Alone Mode of Discharge : Ambulatory Transportation : Private vehicle Printed Discharge Instructions Given to Patient : Yes HEAVEN BEAUCHAMP RN - 11/18/2012 11:03 CDT Source: [employer] Document Id: [id number] CDT!6 Heaven Beauchamp R.N. - 11/18/2012 11:03 AM CDT ED Pain Assessment ED Pain Assessment Entered On: 11/18/2012 11:03 CDT Performed On: 11/18/2012 11:03 CDT by HEAVEN BEAUCHAMP RN Pain Assessment Pain Symptoms : Yes Pain Medication Requested : No HEAVEN BEAUCHAMP RN - 11/18/2012 11:03 CDT Source: [employer] Document Id: [id number] CDT!4 Rosy Lyon M.D. - 11/18/2012 10:15 AM CDT Throat pain - Adult Patient: CARTER LEI Age: 32 years Sex: Female : 1980 Author: ROSY LYON MD Attachments: None Associated Diagnosis: Acute Bronchitis Basic Information Time seen: Date & time 11/18/2012 10:10:00. History source: Patient. Arrival mode: Walking. History limitation: None. Additional information: Chief Complaint from Nursing Triage Note : Chief Complaint Description. 11/18/2012 9:56 CDT Chief Complaint Description 32 year old female with complaints of sinus problemswith chest congestion. Sinus drainage started about a week ago. Patient has sore throat, body aches,cough and chest pain from the congestion. History of Present Illness Has had cold symptoms for a week. Seen in the clinic 11/13, had CXR which was normal, symptomatic treatment was offered for URI, which included Robitussin with codeine. Has only been able to work on 11/16, and that exhausted her. Missed 11/12 due to daughter's pink eye, then the other days because of thiscold. In the process of smoking cessation. Not using Flonase, does not use an inhaler. Cough seems non-productive, but has lots of throat drainage. My throat is all white! She came in primarily because of throat pain and the white appearance. Has had tonsillectomy/adenoidectomy. The patient presents with sore throat. The onset was 5 days ago. The course/duration of symptoms is worsening. Location: Bilateral posterior pharynx. The character of symptoms is pain. The degree at present is moderate. There are exacerbating factors including coughing and swallowing. Risk factors consist of smoking. Therapy today: over the counter medications including Aleve, robitussin. Associated symptoms: chills, rhinorrhea, nasal congestion and denies fever. Review of Systems Constitutional symptoms: Chills and fatigue. Skin symptoms: No rash. ENMT symptoms: Sore throat, nasal congestion and sinus pain. Respiratory symptoms: Cough, but no wheezing. Cardiovascular symptoms: Negative except as documented in HPI. Gastrointestinal symptoms: Negative except as documented in HPI. Genitourinary symptoms: Negative except as documented in HPI. Endocrine symptoms: Menstruating now. Health Status Allergies: . Allergic Reactions (Selected) Severity Not Documented Cipro- No reactions were documented. Nonallergic Reactions (Selected) Moderate Augmentin XR- Gi distress. Severity Not Documented Silicone- No reactions were documented. Medications: . Medications reviewed. Immunizations: Include Immunizations. Immunizations reviewed. Menstrual history: Last menstrual period: Date 11/18/2012, Not using contraception. Past Medical/ Family/ Social History Medical history: . Active Migraine headache (346.90): Onset in 1989 at 8 years. Comments: 06/10/2010 CAREER SERVICES MANAGER 16:12 CARLITO - SANDRINE FLULER RN no known date of onset Resolved Sinusitis (473.9): Onset in 2000 at 19 years. Resolved. Surgical history: . Mantoux test ([id number]) in 2010 at 29 Years. Endometrial sampling (biopsy) with or without endocervical sampling (biopsy), without cervical dilation, any method (separate procedure) (86088) in 2009 at 29 Years. Nasal sinus ([id number]) in 2000 at 20 Years. Comments: 06/10/2010 16:11 - SANDRINE FULLER RN sinus surgeries Tonsillectomy with adenoidectomy ([id number]) in 1994 at 13 Years. Family history: . 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 Problem list: . All Problems Acne vulgaris / 706.1 / Confirmed Abnormal Pap / 795.00 / Confirmed Anxiety State, Unspecified / 300.00 / Confirmed Allergic rhinitis, unspecified / 477.9 / Confirmed Tobacco Use Disorder / 305.1 / Confirmed Migraine headache / 346.90 / Confirmed Resolved: Sinusitis / 473.9 Canceled: Examination or Test, Positive Result / V72.42 Physical Examination Vital Signs Vital Signs. 11/18/2012 10:02 CDT Temperature Core 36.9 DegC Peripheral Pulse Rate 87 /min Respiratory Rate 20 /min SpO2 98 % Systolic Blood Pressure 108 mmHg Measurements. 11/18/2012 10:02 CDT Height 158 cm Estimated Weight 82 kg General: Alert, mild distress and Appears tired. Dark circles under eyes. Skin: Warm and dry. Head: Normocephalic. Neck: Supple and Small but palpable anterior cervical nodes, tender. Eye: Normal conjunctiva. Ears, nose, mouth and throat: Tympanic membranes clear and Throat: Mild, pharynx, erythema, with exudate. Respiratory: Lungs are clear to auscultation, respirations are non-labored and breath sounds are equal. Cardiovascular: Regular rate and rhythm. Back: Normal alignment. Musculoskeletal: No deformity Neurological: Alert and oriented to person, place, time, and situation. Medical Decision Making Differential Diagnosis:Streptococcal pharyngitis, upper respiratory infection. Rationale:URI symptoms for 7 days, with loose cough without wheezing. No known fevers. Throat more sore today. Will r/o strep. Cough is fairly frequent, will try Duoneb. Documents reviewed:Prior records. OrdersDuoneb. Results review:RAPID STREP NEG. Impression and Plan Diagnosis Acute Bronchitis (Discharge, Emergency medicine, Medical) Plan Condition: Stable. Disposition: Discharged: Time 11/18/2012 11:02:00, to home. Prescriptions: LEVAQUIN 750 mg #5, Robitussin DM 240 mL, Use NettiPot for sinuses, as sinus infection is likely. Get some cough drops. Duoneb was not helpful with symptoms.. Patient was given the following educational materials: Acute Sinusitis, BRONCHITIS, Abx Tx (Adult). Limitations: No work, For 1 days, Wrote work excuse to cover fact that she missed work 11/12 (dtr with pink eye), 11/13,, 11/15 and 11/19 due to bronchitis. May return 11/20. Follow up with: ANDREW Tovar As Needed. Counseled: Patient, Regarding diagnosis, Regarding diagnostic results, Regarding treatment plan, Patient indicated understanding of instructions. Electronically Signed By: ROSY LYON MD On: 11/18/2012 01:08 PM Modified by and Electronically Signed by: ROSY LYON MD On: 11/18/2012 11:05 AM Source: [facility] [employer]CH[employer] Document Id: [id number]} Heaven Beauchamp, R.N. - 11/18/2012 9:59 AM CDT ED Primary Assessment Document Has Been Updated ED Primary Assessment Entered On: 11/18/2012 10:02 CDT Performed On: 11/18/2012 9:59 CDT by HEAVEN BEAUCHAMP RN Reason For Visit (As Of: 11/18/2012 10:02:03 CDT) Problems(Active) Abnormal Pap (ICD-9-CM :795.00 ) [...] Nursing ; Code: 706.1 ; Contributor System: [employer] ; Last Updated: 12/17/2010 11:55 CDT ; [...] Medical ; Code: 346.90 ; Contributor System: [employer] ; Last Updated: 04/12/2011 17:14 CAREER SERVICES MANAGER ; Life Cycle Date: 06/10/2010 ; Life Cycle Status: Active ; Responsible Provider: SANDRINE FULLER RN; Vocabulary: ICD-9-CM ; Comments: 06/10/2010 16:12 - SANDRINE FULLER RN no known date of onset Tobacco Use Disorder (ICD-9-CM :305.1 ) Name of Problem: Tobacco Use Disorder ; Onset Date: 08/22/2011 ; Recorder: JANAY WAYNE RN RAIL LOADER; Confirmation: Confirmed ; Classification: Medical ; Code: 305.1 ; Last Updated: 08/22/2011 13:54 CDT ; Life Cycle Status: Active ; Responsible Provider: JANAY WAYNE RN RAIL LOADER; Vocabulary: ICD-9-CM Triage Chief Complaint Description : See triage note Mode of Arrival ED : Private vehicle Track : Medical Languages : Chinese HEAVEN BEAUCHAMP RN - 11/18/2012 9:59 CDT Pain Assessment Pain Symptoms : Yes Pain Medication Requested : No HEAVEN BEAUCHAMP RN - 11/18/2012 9:59 CDT Pain Pain Assessment Grid Pain 1 Pain 2 Location : Throat Chest Laterality : Bilateral Bilateral Intensity : 6 4 Acceptable Intensity : 3 3 Time Pattern : Acute HEAVEN BEAUCHAMP RN - 11/18/2012 9:59 CDT HEAVEN BEAUCHAMP RN - 11/18/2012 9:59 CDT ED Physician Notification Time ED Physician Notification Time : 11/18/2012 9:58 CDT HEAVEN BEAUCHAMP RN - 11/18/2012 9:59 CDT Respiratory Airway : Patent Respirations : Unlabored Respiratory Pattern : Regular HEAVEN BEAUCHAMP RN 11/18/2012 9:59 CDT Cardiovascular Heart Rhythm : Regular Skin Color : Normal for ethnicity Skin Description : Dry Skin Temperature : Warm HEAVEN BEAUCHAMP RN - 11/18/2012 9:59 CDT Neurological Last Well Time Known : Yes Last Known Well Time : 11/11/2012 8:00 CDT Level of Consciousness : Alert Orientation : Oriented x 3 Characteristics of Speech : Appropriate for age HEAVEN BEAUCHAMP RN 11/18/2012 9:59 CDT ED Psychosocial Affect/Behavior : Calm, Cooperative, Appropriate Domestic Abuse Concerns : None HEAVEN BEAUCHAMP RN 11/18/2012 9:59 CDT Gastrointestinal Nutrition ED : Adequate HEAVEN BEAUCHAMP RN 11/18/2012 9:59 CDT Musculoskeletal Fall Prevention Education Provided : Yes HEAVEN BEAUCHAMP RN 11/18/2012 9:59 CDT Social Habits Tobacco Use/Currently Using : Yes Tobacco Use/Advised to Quit : Yes Exposure to Tobacco Smoke : Patient smokes Smoking Status : Current every day smoker HEAVEN BEAUCHAMP RN 11/18/2012 9:59 CDT Tobacco Use Grid Type : Cigarettes Cigarette Use Packs/Day : 0.5 HEAVEN BEAUCHAMP RN 11/18/2012 9:59 CDT Alcohol Use Grid Alcohol Use : Other: occasional No HEAVEN BEAUCHAMP RN - 11/18/2012 9:59 CDT HEAVEN BEAUCHAMP RN - 11/18/2012 9:59 CDT Recreational Drug Use Grid Drug Use : None HEAVEN BEAUCHAMP RN - 11/18/2012 9:59 CDT Source: [facility] [employer] Document Id: [id number] CDT!63 Heaven Beauchamp R.N. - 11/18/2012 9:56 AM CDT ED Triage Assessment Document Has Been Updated ED Triage Assessment Entered On: 11/18/2012 9:59 CDT Performed On: 11/18/2012 9:56 CDT by HEAVEN BEAUCHAMP RN Reason For Visit (As Of: 11/18/2012 09:59:26 CDT) Problems(Active) Abnormal Pap (ICD-9-CM :795.00 ) Name of Problem: Abnormal Pap ; Onset Date: 10/21/2009 ; Recorder: JENNIFER LIN LPN; Confirmation: Confirmed ; Classification: Nursing ; Code: 795.00 ; ContributorSystem: [employer] ; Last Updated: 08/16/2010 9:50 CDT ; Life Cycle Date: 08/16/2010 ; Life Cycle Status: Active ; Responsible Provider: JENNIFER LIN LPN; Vocabulary: ICD-9-CM Acne vulgaris (ICD-9-CM :706.1 ) Name of Problem: Acne vulgaris ; Recorder: ALLEN BEDOYA RN; Confirmation: Confirmed ; Classification: Nursing ; Code: 706.1 ; Contributor System: [employer] ; Last Updated: 12/17/2010 11:55 CDT ; [...] Life Cycle Status: Active ; Responsible Provider: JANYA WAYNE RN, CNP; Vocabulary: ICD-9-CM Migraine headache (ICD-9-CM :346.90 ) Name of Problem: Migraine headache ; Onset Date: 04/17/1989 ; Recorder: SANDRINE FULLER RN; Confirmation: Confirmed ; Classification: Medical ; Code: 346.90 ; Contributor System: [employer] ; Last Updated: 04/12/2011 17:14 CAREER SERVICES MANAGER ; Life Cycle Date: 06/10/2010 ; Life [...] Vocabulary: ICD-9-CM Triage Chief Complaint Description : 32 year old female with complaints of sinus problems with chest congestion. Sinus drainage started about a week ago. Patient has sore throat, body aches, cough and chest pain from the congestion. Information Given By : Patient Accompanied By : Alone Track : Medical Languages : Chinese HEAVEN BEAUCHAMP RN - 11/18/2012 9:56 CDT ED Physician Notification Time ED Physician Notification Time : 11/18/2012 9:58 CDT HEAVEN BEAUCHAMP RN - 11/18/2012 9:56 CDT MORALES MORALES Level 1 : No MORALES Level 2 : No MORALES Level 3 : One HEAVEN BEAUCHAMP RN - 11/18/2012 9:56 CDT DCP GENERIC CODE Tracking Acuity : 4 -Less Urgent Tracking Group : [facility] ED HEAVEN BEAUCHAMP RN - 11/18/2012 9:56 CDT Allergy (As Of: 11/18/2012 09:59:26 CDT) Allergies (Active) Augmentin XR Estimated Onset Date: Unspecified ; Reactions: GI distress ; Created By: MYRNA EDMONDS MD; Reaction Status: Active ; Category: Drug ; Substance: Augmentin XR ; Type: Intolerance ; Severity: Moderate ; Updated By: MYRNA EDMONDS MD; Source: Patient ; Reviewed Date: 11/14/2012 11:05 CDT Cipro Estimated Onset Date: Unspecified ; Created By: YASMANY CAVANAUGH RN; Reaction Status: Active ; Category: Drug ; Substance: Cipro ; Type: Allergy ; Updated By: YASMANY CAVANAUGH RN; Reviewed Date: 11/14/2012 11:05 CDT Silicone Estimated Onset Date: Unspecified ; Created By: JENNIFER FRANCIS RN; Reaction Status: Active ; Category: Drug ; Substance: Silicone ; Type: Sensitivity ; Updated By: JENNIFER FRANCIS RN; Reviewed Date: 11/14/2012 11:05 CDT ID Screen Drug Resistant Organism : No HEAVEN BEAUCHAMP RN - 11/18/2012 9:56 CDT Immunizations Immunizations Current : Unknown Last Tetanus : Unknown Pneumovac : Unknown Influenza : This year HEAVEN BEAUCHAMP RN - 11/18/2012 9:56 CDT Source: [facility] [employer] Document Id: [id number] CDT!23 documented in this encounter Miscellaneous Notes Miscellaneous - Heaven Beauchamp R.N. - 11/18/2012 11:03 AM CDT Valuables/Belongings Valuables/Belongings Entered On: 11/18/2012 11:03 CDT Performed On: 11/18/2012 11:03 CDT by HEAVEN BEAUCHAMP RN Valuables/Belongings Home Medication Disposition : None brought in with patient HEAVEN BEAUCHAMP RN - 11/18/2012 11:03 CDT [facility] Document Id: [id number] CDT!3 Miscellaneous - Heaven Beauchamp R.N. - 11/18/2012 11:00 AM CDT Facility Charge Ticket Facility Charge Ticket Entered On: 11/18/2012 11:04 CDT Performed On: 11/18/2012 11:00 CDT by HEAVEN BEAUCHAMP RN Facility Charge TVL Level Translated RTF : Throat pain - Adult TVL:2 TVL Level for Facility Charge Ticket : Level 2 Mode of Arrival ED : Private vehicle [facility] Mode of Arrival Interpreted : Standard [facility] Process Management : None Order Management RTF : Laboratory Rapid Strep Screen,11/18/12 10:13,ROSY LYON MD Ordered [facility] Order Management : Lab tests 30 Minutes Critical Care : No Nursing Notes RTF : Triage Forms ED Triage Assessment,11/18/12 09:56,HEAVEN BEAUCHAMP RN Nursing Notes ED Primary Assessment,11/18/12 09:59,HEAVEN BEAUCHAMP RN ED Pain Assessment,11/18/12 11:03,HEAVEN BEAUCHAMP RN [facility] Nursing Assessment : Triage and 1-2 nursing assessments [facility] Disposition : Discharge [facility] Total Points with Diagnosis Control : 5 [facility]x Visit Level : 50559 Level 3 HEAVEN BEAUCHAMP RN - 11/18/2012 11:03 CDT [facility] Document Id: [id number] documented in this encounter Plan of Treatment Not on filedocumented as of this encounter Procedures Procedure Name Priority Date/Time Associated Diagnosis Comme nts RAPID STREP A Routine 11/18/2012 10:14 AM Results for this SCREEN CDT procedure are i n the results section. RAPID STREP A Routine 11/18/2012 10:14 AM Results for this SCREEN CDT procedure are i n the results section. documented in this encounter Results Rapid Strep A Screen (11/18/2012 10:14 AM CDT) [facility] SparkupReader Method Time Signature HXRapid Strep POWERCHART Confirmation HXPre Negative for POWERCHART Group A Strep by culture. HXFinal Negative for POWERCHART Group A Strep by culture. Specimen Anatomical Collection Method Collection Time Receive d Time (Source) Location / / Volume Laterality Throat 11/18/2012 10:14 11/18/2012 AM CDT 10:14 AM CDT Rosy Lyon M.D. LAB MICROBIOLOGY - GENERAL O DEVIN Performing Organization Address [facility] Phon e Number POWERCHART Rapid Strep A Screen (11/18/2012 10:14 AM CDT) [facility] [employer] Method Time Signature HXStrep A POWERCHART Screen Rapid HXFinal Negative for POWERCHART Strep Group A by rapid screen. HXFinal Culture POWERCHART confirmation to follow. Specimen (Source) Anatomical Collection Method Collection Time Re ceived Time Location / / Volume Laterality Throat 11/18/2012 10:14 AM CDT oRsy Lyon M.D. LAB MICROBIOLOGY - GENERAL Petra BELTRAN Performing Organization Address [facility] Code Phon e Number POWERCHART documented in this encounter Visit Diagnoses Not on filedocumented in this encounter
--- OUTSIDE RECORDS SUMMARY | 2022-03-16 15:08 | XMS_ITS | Encounter Summary ---
:1980 [address] Organization [facility] Address [address] [place] [address] Care Team Providers Name Role Phone Unavailable Primary Care Provider Unavailable Encounter Details Date Type Department Care Team Description 03/12/2013 Hospital Encounter HX [facility] EHW Provider, Historic al Social History Tobacco Use Types Packs/Day Years [...] of this encounter Miscellaneous Notes Miscellaneous - Lan Sutton Provider Ser - 03/12/2013 12:00 AM CROP PICKER [id number] Dulce Lei [address] [facility] [address] MR# [id number] March 12, 2013 Dear Ms. Lei: APPOINTMENT REMINDER: Our records indicate that you are due for a DOT physical. Your DOT certificate is due to on 04-05-2013 Please call our Occupational Medicine Department at [phone] to schedule an appointment. Please bring your valid drivers license to you office visit. Our office needs this verification prior to completing your DOT physical. If you no longer require DOT certification, please disregard this notice. Thank you, [facility] in [place] Occupational Medicine Department Source: [facility] [id number] Document Id: [id number] documented in this encounter Plan of Treatment Not on filedocumented as of this encounter Visit Diagnoses Not on filedocumented in this encounter
--- OUTSIDE RECORDS SUMMARY | 2022-03-16 15:08 | XMS_ITS | Encounter Summary ---
:1980 Author Organization [facility] Address [address] [place] [address] Care Team Providers Name Role Phone Unavailable Primary Care Provider Unavailable Encounter Details Date Type Department Care Team Description 06/04/2013 Hospital Encounter HX [facility] Andrew Vera, LO, C.N.P., D. N.P. [address] [place] [address] (Wo rk) Social History Tobacco [...] Sign Reading Time Taken Comments Blood Pressure 108/66 06/04/2013 10:28 AM TOTER Pulse 68 06/04/2013 10:28 AM TOTER Temperature - - Respiratory Rate 16 06/04/2013 10:28 AM TOTER Oxygen Saturation - - Inhaled Oxygen Concentration - - Weight 85.4 kg (188 lb 4.4 oz) 06/04/2013 10:28 AM TOTER Height 157 cm (5' 1.81) 06/04/2013 10:28 AM TOTER Body Mass Index 34.65 06/04/2013 10:28 AM TOTER documented in this encounter Medications at Time of Discharge Medication Sig Dispensed Refills Start Date End Date ACETAMINOPHEN ORAL Take 500 mg by mouth every 0 0 06/04/2013 06/29/2019 6 (six) hours as needed. documented as of this encounter Progress Notes Andrew Vera D.N.P., C.N.P. - 06/04/2013 10:15 AM CST [id number] CHIEF COMPLAINT/REASON FOR VISIT 1. Sinus congestion. 2. Fatigue. HISTORY OF PRESENT ILLNESS Patient is a 33-year-old female who presents to the clinic today with a chief complaint of sinus congestion and fatigue that has been ongoing now for the past several months duration. She has been treated with Levaquin 500mg by mouth for 7 days duration about a month ago in which she indicates that she feels like she never fully recovered from this. She wanted to come in today for further evaluation.She also indicates that the fatigue has caused some increase in her mental anxiety, but indicates she does not want to take any medication for this. She also indicates that with her history of migraines the sinus congestion is making her symptoms worse. She is coming in today for further evaluation. PAST MEDICAL/SURGICAL HISTORY Reviewed. Please see chart. FAMILY HISTORY Reviewed. Please see chart. MEDICATIONS Reviewed. Please see chart. ALLERGIES Reviewed. Please see chart. PHYSICAL EXAMINATION GENERAL: The patient is alert and oriented times 3. HEAD: Normocephalic, atraumatic. PUPILS: Pupils equal, round, and reactive to light and accommodation OROPHARYNX: Morrow and moist. TMs: Bilateral tympanic membranes are clear. Bony landmarks noted and within normal limits. NARES: Bilateral nares are erythematous and enlarged. No secretions are noted. NECK: No anterior or posterior lymphadenopathy noted. HEART: Regular. S1, S2. No murmurs, rubs or gallops noted. LUNGS: Clear to auscultation. No prolonged expiratory phases, wheezing, rales or rhonchi noted. SKIN: Without unusual rashes or suspicious lesions LABORATORY: WBC is 7.2. Hemoglobin 12.4. Differential is otherwise completely unremarkable. TSH 0.98. Beta hCG 0.9. IMPRESSION/REPORT/PLAN 1. Upper respiratory infection versus sinusitis. 2. Fatigue and malaise. PLAN: 1. Upper respiratory infection versus sinusitis: Presently at this time, I do recommend that she start nasal saline washes and also Flonase nasal spray, 2 sprays into each nostril prescribed. Recommendshe continue with Sudafed and also initiate Mucinex as an expectorant and again as a decongestant. If in fact over the next several days duration her do not improve we will consider initiation of antibiotic therapy. She is to also take the previously prescribed Toradol as directed for her migraines. Eric recommend that she avoid antihistamines at this time given her eosinophils and the side effects of antihistamines drying up the sinus cavity. We will plan on having her referred to Ears, Nose and Throat for further consultation if the symptoms do not improve. Patient felt very comfortable with thistreatment plan. 2. Fatigue and malaise: Presently at this time, her vital signs are stable and her labs are unremarkable. She has a PHQ-9 score of 10 with a score of 0 on question #9 and a KATIA-7 score of 13. I do recommend she followup with Behavioral Health for further evaluation given her fatigue and malaise. Patient stated understanding the plan as she felt comfortable with this treatment plan. She would like to defer any treatment at this time with medication. Patient ambulated out of the clinic in no acute distress. Patient Education Ready to learn No apparent learning barriers were identified Learning preferences include listening Explained diagnosis and treatment plan Patient/Child/Caregiver expressed understanding of the content Andrew Vera D.N.P./Anibal/taz Electronically Signed By: ANDREW VERA DNP, FNP On: 06/04/2013 07:51 PM Source: [facility] [id number] Document Id: [id number] R documented in this encounter Miscellaneous Notes Miscellaneous - Andrew Vera D.N.P., C.N.P. - 06/04/2013 1:53 PM TOTER Ambulatory Patient Summary [address] [address] Visit Information Name: CARTER MENSAH [facility] Number: [id number] Current Date: 06/04/2013 13:53:43 Physicians Attending Provider: ANDREW VERA DNP, FNP [...] nasal (Flonase 50 mcg/inh nasal spray) 2 Carpenter(s), Nostrils(Both), once a day as needed for Nasal congestion [facility] [address] [address] ketorolac (Toradol 10 mg oral tablet) 1 Tablet(s), Oral, four times a day Take with food. Stop Taking the Following Medications: guaiFENesin (Robitussin) montelukast (Singulair 10 mg oral tablet) multivitamin, ( Multivitamins oral tablet) nystatin topical (nystatin 100,000 units/g topical cream) Medication list as of 06-04-13 13:53 Attention: If you have any medications at [...] Upcoming Appointments Date Time Location Reason Provider 06/06/2013 12:15 [facility] Clin chronic sinusitis Joan THOMAS, Harshad Pablo Attention: Contact your local Clinic if further appointment detail needed. Your Goals/Additional instructions: Source: [facility] POWERCHART Document Id: [id number] R Miscellaneous - Andrew Vera, D.N.P., C.N.P. - 06/04/2013 1:53 PM TOTER Ambulatory Discharge Medication List [address] [place] [address] Visit Information Name: CARTER MENSAH [facility] Number: [id number] Visit Date: 06/04/2013 13:53:41 Attending Provider: ANDREW VERA DNP, FNP Primary [...] nasal (Flonase 50 mcg/inh nasal spray) 2 Carpenter(s), Nostrils(Both), once a day as needed for Nasal congestion New Routed to [address] [id number] ketorolac (Toradol 10 mg oral tablet) 1 Tablet(s), Oral, four times a day Take with food. Stop Taking the Following Medications: guaiFENesin (Robitussin) montelukast (Singulair 10 mg oral tablet) multivitamin, ( Multivitamins oral tablet) nystatin topical (nystatin 100,000 units/g topical cream) Medication list as of 06-04-13 13:53 Attention: If you have any medications at home that are not on this list, DO NOT take them until youcontact your provider for clarification. Give a copy of your medication list to your primary care provider. Update your medication list any time medications or doses are changed and carry your medication list at all times in case of emergency. Additional Information: Source: [facility] POWERCHART Document Id: [id number] R Miscellaneous - Andrew Vera, D.N.P., C.N.P. - 06/04/2013 12:21 PM TOTER Normal Results Letter 04 June 2013 CARTER MENSAH [address] [facility] [id number] Dear CARTER MENSAH, I am pleased to report that your results from the following diagnostic test(s) are normal. Please follow up with us as we discussed during your visit or sooner if you have any concerns. If you have questions or concerns, please do not hesitate to call our office. Result Name Current Result Previous Result Normal Range TSH (mcIU/mL) 0.98 06/04/2013 0.30 - 5.00 Hgb (g/dL) 12.4 06/04/2013 (L) 10.4 04/12/2013 12.0 - 15.5 Hct (%) 38.1 06/04/2013 (L) 32.0 04/12/2013 34.9 - 44.5 WBC (x10(9)/L) 7.2 06/04/2013 (H) 14.4 04/12/2013 3.4 - 10.5 RBC (x10(12)/L) 4.05 06/04/2013 (L) 3.37 04/12/2013 3.90 - 5.03 MCV (fL) 94.1 06/04/2013 95.0 04/12/2013 82.0 - 98.0 RDW (%) 12.5 06/04/2013 12.5 04/12/2013 11.9 - 15.5 Platelet (x10(9)/L) 298 06/04/2013 350 04/12/2013 150 - 450 Neutro % (%) 49.7 06/04/2013 54.1 04/12/2013 42.0 - 77.0 Lymph % (%) 35.7 06/04/2013 37.0 04/12/2013 23.0 - 44.0 Sandoval % (%) 9.8 06/04/2013 6.7 04/12/2013 2.0 - 18.0 Eos % (%) 4.2 06/04/2013 1.9 04/12/2013 1.0 - 5.0 Baso % (%) 0.6 06/04/2013 0.3 04/12/2013 0.0 - 1.0 Neutro Absolute (10(9)/L) 3.59 06/04/2013 (H) 7.81 04/12/2013 1.70 - 7.00 Lymph Absolute (x10(9)/L) 2.58 06/04/2013 (H) 5.34 04/12/2013 0.90 - 2.90 Sandoval Absolute (x10(9)/L) 0.71 06/04/2013 (H) 0.96 04/12/2013 0.30 - 0.90 [id number] Absolute (x10(9)/L) 0.30 06/04/2013 0.27 04/12/2013 0.05 - 0.50 Baso Absolute (x10(9)/L) 0.04 06/04/2013 0.04 04/12/2013 0.00 - 0.30 Differential? Auto 06/04/2013 Auto 04/12/2013 Beta hCG Qnt (IntU/L) 0.9 06/04/2013 0.0 - 5.0 Sincerely, ANDREW VERA [address] [place] [address] Electronic Signature Electronically Signed By: ANDREW VERA DNP, NURSE PRACTITIONER PER DIEM On: 04 June 2013 This document has images extracted. Source: [facility] POWERCHART Document Id: [id number] Electronically signed by Conversion, [facility] Airplane Pilot Supervisor [id number] at 09/12/2016 9:49 PM CDT Miscellaneous - William Mishra, L.P.N. 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 Intake/History Entered On: 06/04/2013 10:32 TOTER Performed On: 06/04/2013 10:28 TOTER by WILLIAM MISHRA LPN Intake Chief Complaint : MEDRANO, sinus, tired, stomach stuff, dragging her down emotionaly Temperature Core : 36.4 DegC(Converted to: 97.5 DegF) (LOW) Peripheral Pulse Rate : 68 /min Respiratory Rate : 16 /min Heart Rhythm : Regular Systolic Blood Pressure : 108 mmHg Diastolic Blood Pressure : 66 mmHg NIBP Mean : 80 mmHg BP Location : Right upper extremity Blood Pressure Cuff Size : Regular Height : 157.0 cm(Converted to: 5 ft 2 inch(es), 61.81 inch(es)) Actual Weight : 85.4 kg(Converted to: 188 lb 4 oz) Weight Source : Standing scale Dosing Weight Clinic : 85.4 kg Clinic BSA : 1.93 Body Mass Index : 34.65 kg/m2 WILLIAM MISHRA LPN - 06/04/2013 10:28 TOTER General Info Information Given By : Patient Languages : Uzbek WILLIAM MISHRA LPN - 06/04/2013 10:28 TOTER Subjective Pain Symptoms : No WILLIAM MISHRA [facility] - 06/04/2013 10:28 TOTER Dependent Habits Tobacco Use/Currently Using : Yes Tobacco Use/Advised to Quit : Yes Exposure to Tobacco Smoke : Patient smokes Smoking Status : Current every day smoker WILLIAM MISHRA [facility] - 06/04/2013 10:28 TOTER Tobacco Use Grid Type : Cigarettes Cigarette Use Packs/Day : 0.5 WILLIAM MISHRA Parvez [facility] - 06/04/2013 10:28 TOTER Alcohol Use : No WILLIAM MISHRA [facility] - 06/04/2013 10:28 TOTER Caffeine Use Grid Caffeine Use : Current Type : Soft drinks Frequency : Occasionally WILLIAM MISHRA Parvez [facility] - 06/04/2013 10:28 TOTER Recreational Drug Use Grid Drug Use : None WILLIAM MISHRA Parvez [facility] 06/04/2013 10:28 TOTER Source: [facility] CricHQCHART Document Id: [id number] R documented in this encounter Plan of Treatment Not on filedocumented as of this encounter Procedures Procedure Name Priority Date/Time Associated Diagnosis Comme nts AUTOMATED Routine 06/04/2013 11:23 AM Results for this DIFFERENTIAL, B TOTER procedure ar e in the results section. BHCG (BETA-HUMAN Routine 06/04/2013 11:23 AM Resu lts for this CHORIONIC TOTER procedure are i n GONADOTROPIN), the results DIEGO, S section. CBC WITH Routine 06/04/2013 11:23 AM Results for this DIFFERENTIAL, B TOTER procedure ar e in the results section. THYROID-STIMULATING Routine 06/04/2013 11:23 AM R esults for this HORMONE-SENSITIVE TOTER procedure are in (S-TSH) the results section. documented in this encounter Results Automated Differential (06/04/2013 11:23 AM TOTER) P athologist Signature Neutro % 49.7 42.0 - POWERCHART 77.0 Lymphocytes % 35.7 23.0 - POWERCHART 44.0 HX Sandoval % 9.8 2.0 - 18.0 POWERCHART HX Eos % 4.2 1.0 - 5.0 POWERCHART HX Baso % 0.6 0.0 - 1.0 POWERCHART Absolute 3.59 1.70 - POWERCHART Neutrophils 7.00 109L Lymphocytes 2.58 0.90 - POWERCHART 2.90 X109L Monocytes 0.71 0.30 - POWERCHART 0.90 X109L Eosinophils 0.30 0.05 - POWERCHART 0.50 X109L Absolute 0.04 0.00 - POWERCHART Basophil 0.30 X109L Specimen Anatomical Collection Method Collection Time Receive d Time (Source) Location / / Volume Laterality Blood 06/04/2013 11:23 06/04/2013 AM TOTER 11:23 AM TOTER Andrew Vera APRN, C.N.P., D.N.P. LAB BLOOD ADD- ON Performing Organization Address City/State/ZIP Code Phon e Number POWERCHART CBC with Differential (06/04/2013 11:23 AM TOTER) P athologist Signature Leukocytes 7.2 3.4 - 10.5 POWERCHART X109L Erythrocytes 4.05 3.90 - POWERCHART 5.03 [id number] Hemoglobin 12.4 12.0 - POWERCHART 15.5 GDL Hematocrit 38.1 34.9 - POWERCHART 44.5 MCV 94.1 82.0 - POWERCHART 98.0 FL HX RDW 12.5 11.9 - POWERCHART 15.5 Platelet Count 298 150 - 450 POWERCHART X109L HXDifferential? Auto POWERCHART Specimen (Source) Anatomical Collection Method Collection Time Re ceived Time Location / / Volume Laterality Blood 06/04/2013 11:23 AM TOTER Andrew Vera APRN, C.N.P., D.N.P. LAB BLOOD ADD- ON Performing Organization Address City/State/ZIP Code Phon e Number POWERCHART bHCG (Beta-Human Chorionic Gonadotropin), Quantitative (06/04/2013 11:23 AM TOTER) P athologist Signature Beta-HCG, 0.9 0.0 - 5.0 POWERCHART Quantitative, S INTUL Comment: 0 ? 5 IntU/L Negative 5 ? 25 IntU/L Indeterminate > 25 IntU/L Positive Specimen (Source) Anatomical Collection Method Collection Time Re ceived Time Location / / Volume Laterality Blood 06/04/2013 11:23 AM TOTER Edward Menezes APRN.N.P., D.N.P. LAB BLOOD ADD- ON Performing Organization Address City/State/ZIP Code Phon e Number POWERCHART Thyroid-Stimulating Hormone-Sensitive (s-TSH) (06/04/2013 11:23 AM TOTER) P athologist Signature TSH 0.98 0.30 - 5.00 POWERCHART (Thyrotropin) MCIUML Specimen (Source) Anatomical Collection Method Collection Time Re ceived Time Location / / Volume Laterality Blood 06/04/2013 11:23 AM TOTER Edward Menezes APRN.N.P., D.N.P. LAB BLOOD ADD- ON Performing Organization Address City/State/ZIP Code Phon e Number POWERCHART documented in this encounter Visit Diagnoses Not on filedocumented in this encounter
--- OUTSIDE RECORDS SUMMARY | 2022-03-16 15:08 | XMS_ITS | Encounter Summary ---
:1980 Author Organization [facility] Address [address] [place] [address] Care Team Providers Name Role Phone Unavailable Primary Care Provider Unavailable Encounter Details Date Type Department Care Team Description 04/06/2013 - Hospital Encounter HX [facility] ED Rosy Lyon, 04/07/2013 [address] [place], [place] [address] (Wo rk) Social History [...] Sign Reading Time Taken Comments Blood Pressure 125/91 04/06/2013 10:23 PM TILE AND MARBLE SETTER Pulse 102 04/06/2013 10:23 PM TILE AND MARBLE SETTER Temperature - - Respiratory Rate 18 04/06/2013 10:39 PM TILE AND MARBLE SETTER Oxygen Saturation - - Inhaled Oxygen Concentration - - Weight - - Height 157 cm (5' 1.81) 04/06/2013 10:23 PM TILE AND MARBLE SETTER Body Mass Index - - documented in this encounter Discharge Summaries Luis Mccarthy R.N. - 04/07/2013 12:26 AM CST ED Discharge Instructions [address] [address] Name: CARTER LEI Date of : 1980 12:00 AM Visit Date: 04/06/2013 10:15 PM [facility] Number: [id number] Address: [address] [place] [phone] Primary Care Provider: ANDREW VERA DNP, AUDITOR MEDICAL CLAIMS IMPORTANT: [facility] in [place] would like to thank you for allowing us to assist you with your healthcare needs. The following includes patient education materials and informationregarding your injury/illness. Chief Complaint: Cough; Cough; sick Follow-Up Instructions: With: Address: When: ANDREW VERA [address] [place] [id number] Business (1) Within 2 -4 days Comments: Patient Education Materials: 13232 Using a Nebulizer (Adult) A nebulizer turns medicine into a mist. You breathe the mist in through a mask or a mouthpiece. To use your nebulizer, follow the steps below. With a Mask ?? Put the correct dose of medicine in the cup. ?? Connect one end of the tubing to the cup and the other end to the machine. ?? Attach the mask to the cup. ?? Place the mask over your nose and mouth. Make sure it fits securely and comfortably. ?? Turn on the machine. ?? Take slow, deep breaths until all the medicine is gone. This takes 10-15 minutes. Be sure to follow directions you are given for cleaning the nebulizer and the mask. With a Mouthpiece ?? Put the correct dose of medicine in the cup. ?? Connect one end of the tubing to the cup and the other end to the machine. ?? Attach the mouthpiece to the cup. ?? Put the mouthpiece between your teeth and close your lips around it. Keep your tongue below the mouthpiece. ?? Turn on the machine. ?? Take slow, deep breaths through the mouthpiece until all the medicine is gone. This takes 10-15 minutes. Be sure to follow directions you are given for cleaning the nebulizer and the mouthpiece. ?? [id number] [place] [address]. All rights reserved. This information is not intended as a substitute for professional medical care. Always follow your healthcare professional's instructions. 600167of ASTHMA [Adult] Asthma is a disease where [...] start to improve within 24 hours ?? [id number], [place] [address]. All rights reserved. This information is not intended as a substitute for professional medical care. Always follow your healthcare professional's instructions. ED Tests and Procedures: Order Status Discharge Prescriptions & Home Medications: Medication/Strength Dose Route Frequency Indications/Special Instructions/Comments/Notes predniSONE (predniSONE 20 mg oral tablet) 40 mg Oral once a day for 5 Days lbrdrtipratropium-albuterol (DuoNeb 0.5 mg-2.5 mg/3 mL inhalation solution) 3 mL Nebulized inhalation four times a day guaiFENesin (Robitussin) 100 mg Oral every 4 hours multivitamin, ( Multivitamins oral tablet) 1 tab(s) Oral once a day *albuterol (Ventolin HFA 90 mcg/inh inhalation aerosol) 2 puff(s) Inhalation every 4 hours as neededfor Shortness of breath / Wheezing *ondansetron (Zofran 4 mg oral tablet) 4 mg [...] ride home with a responsible green party. IRODRICK GINA MARIE , or responsible green party [...] document has images extracted. Please consider using [employer] for all your patient education needs. Source: [facility] POWERCHART Document Id: [id number] Luis Choudhury R.N. - 04/07/2013 12:26 AM CST ED Depart Summary [facility] Emergency Department Clinical Discharge Summary PERSON INFORMATION Name CARTER LEI Age 32 Years 1980 12:00 AM Sex Female Language Ghanaian PCP ANDREW VERA DNP, AUDITOR MEDICAL CLAIMS Marital Status Single Visit Id Visit Reason Cough; Cough; sick Specialty Enc Type Emergency Med Service Emergency Medicine Referred by Track Group [facility] ED Discharge 04/07/2013 12:15 AM Tracking Id [id number] Checkout 04/07/2013 12:15 AM Checkin 04/06/2013 10:15 PM Acuity 4 -Less Urgent Dispo Type * Discharged to Home or Self Care Arrival 04/06/2013 10:15 PM Reg Status LOS 000 02:00 Address: [address] [place] [phone] Comment: PROVIDER INFORMATION Provider Role Provider Contact Time LUIS MCCARTHY ED Nurse 04/06/13 22:16 ROSY LYON MD ED Provider 04/06/13 22:18 DIAGNOSIS Asthma with acute exacerbation 493.92; ; Upper respiratory infection 465.9 Comment: PATIENT EDUCATION INFORMATION Instructions: Using a Nebulizer (Adult); ASTHMA, Acute (Adult) Follow up: With: Address: When: ANDREW VERA [address] [place] [id number] [facility] () Within 2 -4 days Comments: [facility] Document Id: [id number] AND MARBLE SETTER documented in this encounter ED Notes Luis Mccarthy R.N. - 04/07/2013 12:10 AM CST ED Disposition Summary ED Disposition Summary Entered On: 04/07/2013 0:24 TILE AND MARBLE SETTER Performed On: 04/07/2013 0:10 TILE AND MARBLE SETTER by LUIS MCCARTHY ED Disposition Summary Accompanied By : Significant other Mode of Discharge : Ambulatory Transportation : Private vehicle Printed Discharge Instructions Given to Patient : Yes Patient Status at Discharge from ED : Improved LUIS MCCARTHY - 04/07/2013 0:24 TILE AND MARBLE SETTER [facility] Document Id: [id number] TILE AND MARBLE SETTER!7 AND MARBLE SETTER Luis Mccarthy R.N. - 04/07/2013 12:10 AM CST ED Pain Assessment ED Pain Assessment Entered On: 04/07/2013 0:24 TILE AND MARBLE SETTER Performed On: 04/07/2013 0:10 TILE AND MARBLE SETTER by LUIS MCCARTHY Pain Assessment Pain Symptoms : No LUIS MCCARTHY - 04/07/2013 0:24 TILE AND MARBLE SETTER Source: [facility] POWERCHART Document Id: [id number] TILE AND MARBLE SETTER!3 AND MARBLE SETTER Rosy Lyon M.D. - 04/06/2013 10:24 PM CST Cough Patient: CARTER LEI Age: 32 years Sex: Female : 1980 Author: ROSY LYON MD Attachments: None Associated Diagnosis: Asthma with acute exacerbation 493.92; Upper respiratory infection 465.9; Basic Information Time seen: Date & time 04/06/2013 22:25:00. History source: Patient. Arrival mode: Walking. History limitation: None. Additional information: Chief Complaint from Nursing Triage Note : Chief Complaint Description. 04/06/2013 22:23 TILE AND MARBLE SETTER Chief Complaint Description see triage assessment 04/06/2013 22:17 TILE AND MARBLE SETTER Chief Complaint Description Patient comes to the ED complaining of a cough, sore throat and an earache for the past week. History of Present Illness Increasing cough. Discovered she is 6 weeks yesterday at clinic with positive UPT. Known asthma, smoker, increased cough. Has been treated with two courses of antibiotics in the last month (azithromycin, then Levaquin, as well as a Medrol dospak). Now that she is , she is reluctant to use her inhaler, as she was unsure if she could. States she has stopped smoking. No fever. Has left ear pain and a sore throat, those have both been present for a week. Cough is hacking, loose sounding. Has had influenza vaccine this fall. The patient presents with cough. The course/duration of symptoms is worsening. Character productive repetitive. The degree at onset was moderate. The degree at present is severe. The exacerbating factor is none. The relieving factor is none. Risk factors consist of asthma and smoking. Prior episodes: For the past month, has been chronic.. Associated symptoms: sore throat. Does not have her own nebulizer. Review of Systems Constitutional symptoms: No fever. Skin symptoms: No rash. ENMT symptoms: Ear pain, sore throat and nasal congestion. Cardiovascular symptoms: No chest pain. Gastrointestinal symptoms: No nausea or no vomiting. Allergy/immunologic symptoms: Seasonal allergies. Additional review of systems information: All other systems reviewed and otherwise negative. Health Status Allergies: . Allergic Reactions (Selected) Severity Not Documented Cipro- No reactions were documented. Nonallergic Reactions (Selected) Moderate Augmentin XR- Gi distress. Severity Not Documented Silicone- No reactions were documented. Medications: (Selected). Inpatient Medications Ordered Auralgan: 4 drop(s), Ear(Left), Once Tylenol: 1,000 mg, PO, Once predniSONE: 40 mg, PO, Once Prescriptions Prescribed Nasonex 50 mcg/inh nasal spray: 2 spray(s), Nostrils(Both), Daily, 51 gm Multivitamins oral tablet: 1 tab(s), PO, Daily, 100 tab(s) Singulair 10 mg oral tablet: 10 mg, 1 tab(s), PO, Daily PM, 90 tab(s) Ventolin HFA 90 mcg/inh inhalation aerosol: 2 puff(s), Inhalation, q4hr, 1 each, PRN: Shortness of breath / Wheezing Zofran 4 mg oral tablet: 4 mg, 1 tab(s), PO, q8hr, 30 tab(s), PRN: Nausea ibuprofen 200 mg oral tablet: 800 mg, 4 tab(s), PO, PRN, DO NOT take on the same day with naproxen.,50 tab(s), PRN: headache Pending Complete nicotine 21 mg/24 hr transdermal film, extended release: 1 patch(es), Topical, Daily, 30 patch(es) Documented Medications Documented Robitussin: 100 mg, PO, q4hr ketorolac 10 mg oral tablet: 10 mg, 1 tab(s), PO, 4xDay, PRN: Pain naproxen: PO, DO NOT take on the same day you take ibuprofen., PRN: Pain Immunizations: Include Immunizations. Immunizations reviewed. Menstrual history: Last menstrual period: Presumed , POS UPT on 04/05. Past Medical/ Family/ Social History Medical history: . Active Migraine headache (346.90): Onset in 1989 at 8 years. Comments: 06/10/2010 TILE AND MARBLE SETTER 16:12 TILE AND MARBLE SETTER - SANDRINE FULLER RN no known date of onset Resolved Sinusitis (473.9): Onset in 2000 at 19 years. Resolved. Surgical history: . Mantoux test ([id number]) in 2010 at 29 Years. Mantoux test ([id number]) in 2010 at 29 Years. Endometrial sampling (biopsy) with or without endocervical sampling (biopsy), without cervical dilation, any method (separate procedure) (90991) in 2009 at 29 Years. Nasal sinus (725121869) in 2000 at 20 Years. Comments: 06/10/2010 16:11 - SANDRINE FULLER RN sinus surgeries Tonsillectomy with adenoidectomy ([id number]) in 1994 at 13 Years. Family history: . Liver Mother Comments: 08/16/2010 09:57 - JENNIFER LIN LPN Liver failure Diabetes mellitus Mother Asthma Sister Hypertension Father MEDRANO - Headache Father Social history: Tobacco use: Regularly. Problem list: . All Problems Migraine headache / 346.90 / Confirmed Anxiety State, Unspecified / 300.00 / Confirmed Allergic rhinitis, unspecified / 477.9 / Confirmed Tobacco Use Disorder / 305.1 / Confirmed Acne vulgaris / 706.1 / Confirmed Resolved: Sinusitis / 473.9 Resolved: Abnormal Pap / 795.00 Canceled: Examination or Test, Positive Result / V72.42 Physical Examination Vital Signs: Vital Signs, 04/06/2013 22:39 TILE AND MARBLE SETTER Respiratory Rate 18 /min 04/06/2013 22:23 TILE AND MARBLE SETTER Temperature Core 36.8 DegC Peripheral Pulse Rate 102 /min HI Respiratory Rate 18 /min SpO2 98 % Systolic Blood Pressure 125 mmHg Diastolic Blood Pressure 91 mmHg >HHI Mean Arterial Pressure 102 mmHg BP Location Left upper 04/05/2013 9:43 TILE AND MARBLE SETTER Temperature Core 36.9 DegC Peripheral Pulse Rate 72 /min Respiratory Rate 14 /min Systolic Blood Pressure 100 mmHg Diastolic Blood Pressure 60 mmHg Mean Arterial Pressure 73 mmHg BP Location Left upper Blood Pressure Cuff Size Regular Measurements. 04/06/2013 22:23 TILE AND MARBLE SETTER Height 157 cm Height Source Estimated Dosing Weight 84.00 kg NA Estimated Weight 84 kg 04/05/2013 9:43 TILE AND MARBLE SETTER Dosing Weight 84.6 kg Actual Weight 84.6 kg Weight Source Standing scale Medical Decision Making OrdersLaunch Orders, Pharmacy: DuoNeb (Order Processing): 3 mL, NEB, OnceLaunch Orders, Pharmacy: Tylenol (Order Processing): 1,000 mg, PO, Once Auralgan (Order Processing): 4 drop(s), Ear(Left), Once predniSONE (Order Processing): 40 mg, PO, Once[facility] Orders. Pharmacy: DuoNeb 0.5 mg-2.5 mg/3 mL inhalation solution (Prescribe): 3 mL, NEB, 4xDay, 120 each Reexamination/ Reevaluation Time: 04/06/2013 23:25:00 . Vital signs results included from flowsheet : Vital Signs 04/06/2013 22:23 TILE AND MARBLE SETTER Temperature Core 36.8 DegC Peripheral Pulse Rate 102 /min HI Respiratory Rate 18 /min SpO2 98 % Systolic Blood Pressure 125 mmHg Diastolic Blood Pressure 91 mmHg >HHI Course: unchanged. Assessment: Continues to have repetitive, non-stop coughing. Time: 04/06/2013 23:40:00 . Course: improving. Assessment: Vomited the tylenol/prednisone given earlier. Will repeat dose. Will try lidocaine/decadron neb to reduce cough.. Time: 04/07/2013 00:07:00 . Course: improving. Assessment: Markedly less cough after neb with lido/decadron. Impression and Plan Diagnosis Asthma with acute exacerbation 493.92 (Discharge, Emergency medicine, Medical) Upper respiratory infection 465.9 (Discharge, Emergency medicine, Medical) Diagnosis (Discharge, Emergency medicine, Medical) Plan Condition: Stable. Disposition: Discharged: to home. Prescriptions: Prednisone 40 mg daily for 5 more days. Duonebs QID, may use up to every 4 hours prn.Tylenol prn pain.. Patient was given the following educational materials: ASTHMA, Acute (Adult), ASTHMA, Acute (Adult),Using a Nebulizer (Adult). Counseled: Patient, Regarding diagnosis, Regarding treatment plan, Patient indicated understanding of instructions. Notes: Susan will deliver nebulizer. She will get Duoneb solution in 3 days. In the meantime, [facility]s [facility] [place] [facility].. Electronically Signed By: ROSY LYON MD On: 04/07/2013 12:08 AM Modified by and Electronically Signed by: ROSY LYON MD On: 04/06/2013 11:28 PM Source: [facility] POWERCHART Document Id: [id number]} AND MARBLE SETTER Luis Mccarthy R.N. - 04/06/2013 10:23 PM CST ED Primary Assessment Document Has Been Updated ED Primary Assessment Entered On: 04/06/2013 22:29 TILE AND MARBLE SETTER Performed On: 04/06/2013 22:23 TILE AND MARBLE SETTER by LUIS MCCARTHY Reason For Visit (As Of: 04/06/2013 22:29:37 TILE AND MARBLE SETTER) Problems(Active) Acne vulgaris (ICD-9-CM :706.1 ) Name of Problem: Acne vulgaris ; Recorder: ALLEN BEDOYA RN; Confirmation: Confirmed ; Classification: Nursing ; Code: 706.1 ; Contributor System: [employer] ; Last Updated: 12/17/2010 11:55 CDT ; Life Cycle Date: 12/17/2010 ; Life Cycle Status: Active ; Responsible Provider: ALLEN BEDOYA RN; Vocabulary: ICD-9-CM ; Comments: 12/17/2010 11:55 - ALLEN BEDOYA RN Date of onset unknown Allergic rhinitis, unspecified (ICD-9-CM :477.9 ) Name of Problem: Allergic rhinitis, unspecified ; Onset Date: 08/22/2011 ; Recorder: JANAY WAYNE RN, TUBING DRIER; Confirmation: Confirmed ; Classification: Medical ; Code: 477.9 ; Last Updated: 08/22/2011 13:54 CDT ; Life Cycle Status: Active ; Responsible P rovider: JANAY WAYNE RN, TUBING DRIER; Vocabulary: ICD-9-CM Anxiety State, Unspecified (ICD-9-CM :300.00 [...] Medical ; Code: 346.90 ; Contributor System: [employer] ; Last Updated: 04/12/2011 17:14 TILE AND MARBLE SETTER ; Life Cycle Date: 06/10/2010 ; Life [...] JANAY WAYNE RN, CNP; Vocabulary: ICD-9-CM Diagnoses(Active) Cough Date: 04/06/2013 ; Diagnosis Type: Reason For Visit ; Confirmation: Complaint of ; Clinical Dx: Cough ; Classification: Medical ; Clinical Service: Non-Specified ; Code: PNED ; Probability: 0 ; Diagnosis Code: [id number] Cough Date: 04/06/2013 ; Diagnosis Type: Reason For Visit ; Confirmation: Confirmed ; Clinical Dx: Cough ; Classification: Medical ; Clinical Service: Emergency medicine ; Code: PNED ; Probability: 0 ;Diagnosis Code: [id number] Triage Chief Complaint Description : see triage assessment Mode of Arrival ED : Private vehicle, Ambulatory Track : Medical Languages : Ghanaian Vital Signs Assessed : Yes Treatments Prior to Arrival : None LUIS MCCARTHY - 04/06/2013 22:23 TILE AND MARBLE SETTER Vital Signs Temperature Core : 36.8 DegC(Converted to: 98.2 DegF) Peripheral Pulse Rate : 102 /min (HI) Respiratory Rate : 18 /min Systolic Blood Pressure : 125 mmHg Diastolic Blood Pressure : 91 mmHg (>HHI) NIBP Mean : 102 mmHg BP Location : Left upper extremity SpO2 : 98 % Oxygen Therapy : Room air Height : 157 cm(Converted to: 5 ft 2 inch(es)) Height Source : Estimated Estimated Weight : 84 kg Estimated Weight Conversion to Pounds : 184.8 lb LUIS MCCARTHY 04/06/2013 22:23 TILE AND MARBLE SETTER Pain Assessment Pain Symptoms : Yes LUIS MCCARTHY 04/06/2013 22:23 TILE AND MARBLE SETTER Respiratory Airway : Patent Respirations : Unlabored Respiratory Pattern : Regular LUIS MCCARTHY 04/06/2013 22:23 TILE AND MARBLE SETTER Cardiovascular Heart Rhythm : Regular Skin Color : Normal for ethnicity Skin Description : Dry Skin Temperature : Warm LUIS MCCARTHY 04/06/2013 22:23 TILE AND MARBLE SETTER Neurological Last Well Time Known : Not applicable Level of Consciousness : Alert Orientation : Oriented x 3 Characteristics of Speech : Appropriate for age LUIS MCCARTHY 04/06/2013 22:23 TILE AND MARBLE SETTER ED Psychosocial Affect/Behavior : Calm, Cooperative Domestic Abuse Concerns : None LUIS MCCARTHY 04/06/2013 22:23 TILE AND MARBLE SETTER Gastrointestinal Nutrition ED : Adequate LUIS MCCARTHY 04/06/2013 22:23 TILE AND MARBLE SETTER /OB Assessment Sexually Active : Yes Status : Confirmed positive Note : Patient states was confirmed positive yesterday (04/05/13) here at [facility] LUIS MCCARTHY 04/06/2013 22:23 TILE AND MARBLE SETTER Musculoskeletal Fall Prevention Education Provided : LUIS PALUMBO 04/06/2013 22:23 TILE AND MARBLE SETTER Social Habits Tobacco Use/Currently Using : Yes Exposure to Tobacco Smoke : Patient smokes Smoking Status : Current some day smoker LUIS MCCARTHY 04/06/2013 22:23 TILE AND MARBLE SETTER Tobacco Use Grid Type : Cigarettes Comments (Comment: admits to smoking 5 cigs a day [LUIS MCCARTHY 04/06/2013 22:23 TILE AND MARBLE SETTER] ) LUIS MCCARTHY 04/06/2013 22:23 TILE AND MARBLE SETTER Alcohol Use Grid Alcohol Use : Other: occasional No LUIS MCCARTHY 04/06/2013 22:23 TILE AND MARBLE SETTER LUIS MCCARTHY 04/06/2013 22:23 TILE AND MARBLE SETTER Recreational Drug Use Grid Drug Use : None LUIS MCCARTHY - 04/06/2013 22:23 TILE AND MARBLE SETTER Source: [facility] [employer] Document Id: [id number] TILE AND MARBLE SETTER!64 AND MARBLE SETTER Luis Mccarthy R.N. - 04/06/2013 10:17 PM CST ED Triage Assessment Document Has Been Updated ED Triage Assessment Entered On: 04/06/2013 22:20 TILE AND MARBLE SETTER Performed On: 04/06/2013 22:17 TILE AND MARBLE SETTER by LUIS MCCARTHY Reason For Visit (As Of: 04/06/2013 22:20:36 TILE AND MARBLE SETTER) Problems(Active) Acne vulgaris (ICD-9-CM :706.1 ) Name of Problem: Acne vulgaris ; Recorder: ALLEN BEDOYA RN; Confirmation: Confirmed ; Classification: Nursing ; Code: 706.1 ; Contributor System: [employer] ; Last Updated: 12/17/2010 11:55 CDT ; [...] Medical ; Code: 346.90 ; Contributor System: [employer] ; Last Updated: 04/12/2011 17:14 TILE AND MARBLE SETTER ; Life Cycle Date: 06/10/2010 ; Life [...] JANAY WAYNE RN, CNP; Vocabulary: ICD-9-CM Diagnoses(Active) Cough Date: 04/06/2013 ; Diagnosis Type: Reason For Visit ; Confirmation: Complaint of ; Clinical Dx: Cough ; Classification: Medical ; Clinical Service: Non-Specified ; Code: PNED ; Probability: 0 ; Diagnosis Code: [id number] Triage Chief Complaint Description : Patient comes to the ED complaining of a cough, sore throat and an earache for the past week. Information Given By : Patient Accompanied By : Significant other Mode of Arrival ED : Private vehicle, Ambulatory Track : Medical Languages : Ghanaian Treatments Prior to Arrival : None LUIS MCCARTHY - 04/06/2013 22:17 TILE AND MARBLE SETTER Pain Assessment Pain Symptoms : Yes LUIS MCCARTHY - 04/06/2013 22:17 TILE AND MARBLE SETTER Pain Pain Assessment Grid Pain 1 Pain 2 Location : Throat Ear Laterality : Left Intensity : 9 9 Time Pattern : Acute Acute Onset : Gradual Gradual Quality : Unable to describe Aching LUIS MCCARTHY - 04/06/2013 22:17 TILE AND MARBLE SETTER LUIS MCCARTHY 04/06/2013 22:17 TILE AND MARBLE SETTER ED Physician Notification Time ED Physician Notification Time : 04/06/2013 22:19 TILE AND MARBLE SETTER LUIS MCCARTHY - 04/06/2013 22:17 TILE AND MARBLE SETTER MORALES DCP GENERIC CODE Tracking Acuity : 4 -Less Urgent Tracking Group : [facility] ED LUIS MCCARTHY - 04/06/2013 22:17 TILE AND MARBLE SETTER Allergy (As Of: 04/06/2013 22:20:36 TILE AND MARBLE SETTER) Allergies (Active) Augmentin XR Estimated Onset Date: Unspecified ; Reactions: GI distress ; Created By: MYRNA EDMONDS MD; Reaction Status: Active ; Category: Drug ; Substance: Augmentin XR ; Type: Intolerance ; Severity: Moderate ; Updated By: MYRNA EDMONDS MD; Source: Patient ; Reviewed Date: 04/05/2013 9:39 TILE AND MARBLE SETTER Cipro Estimated Onset Date: Unspecified ; Created By: YASMANY CAVANAUGH RN; Reaction Status: Active ; Category: Drug ; Substance: Cipro ; Type: Allergy ; Updated By: YASMANY CAVANAUGH RN; Reviewed Date: 04/05/2013 9:39 TILE AND MARBLE SETTER Silicone Estimated Onset Date: Unspecified ; Created By: JENNIFER FRANCIS RN; Reaction Status: Active ; Category: Drug ; Substance: Silicone ; Type: Sensitivity ; Updated By: JENNIFER FRANCIS RN; Reviewed Date: 04/05/2013 9:39 TILE AND MARBLE SETTER Immunizations Immunizations Current : Yes Pneumovac : None Influenza : This year LUIS MCCARTHY - 04/06/2013 22:17 TILE AND MARBLE SETTER Source: [facility] POWERCHART Document Id: [id number] TILE AND MARBLE SETTER!36 AND MARBLE SETTER documented in this encounter Miscellaneous Notes Miscellaneous - Luis Mccarthy RLashawnN. - 04/07/2013 12:10 AM CST Facility Charge Ticket 2.0 11.0 DX Facility Charge Ticket 2.0 11.0 DX Entered On: 04/07/2013 0:25 TILE AND MARBLE SETTER Performed On: 04/07/2013 0:10 TILE AND MARBLE SETTER by LUIS MCCARTHY Facility Charge Ticket 2.0 11.0 DX ED Other Charges : Standard ED Encounter TVL Level Translated RTF : Cough, Cough TVL:3 TVL Level for Facility Charge Ticket : Level 3 Arrival Mode Calc : 1 Mode of Arrival ED : Private vehicle, Ambulatory Lynx Mode of Arrival Interpreted : Standard [facility]x Process Management : None Lynx Order Management : None 30 Minutes Critical Care : No Nursing Notes RTF : Triage Forms ED Triage Assessment,04/06/13 22:17,LUIS MCCARTHY Nursing Notes ED Primary Assessment,04/06/13 22:23,LUIS MCCARTHY ED Pain Assessment,04/07/13 00:10,LUIS MCCARTHY Lynjohanna Nursing Assessment : Triage and 1-2 nursing assessments Lynx Disposition : Discharge Disposition RTF : discharge Lynx Total Points with Diagnosis Control : 5 Lynx Visit Level : 18379 Level 3 Treatments Prior to Arrival : None LUIS MCCARTHY - 04/07/2013 0:24 TILE AND MARBLE SETTER Source: [employer] Document Id: [id number] TILE AND MARBLE SETTER!18 AND MARBLE SETTER Jose Luis - Luis Mccarthy RLashawnN. - 04/07/2013 12:03 AM CST Valuables/Belongings Valuables/Belongings Entered On: 04/07/2013 0:03 TILE AND MARBLE SETTER Performed On: 04/07/2013 0:03 TILE AND MARBLE SETTER by LUIS MCCARTHY Valuables/Dwayne Home Medication Disposition : None brought in with patient LUIS MCCARTHY - 04/07/2013 0:03 TILE AND MARBLE SETTER Source: [employer] Document Id: [id number] TILE AND MARBLE SETTER!3 AND MARBLE SETTER Luis Willard RLashawnNLashawn - 04/06/2013 11:50 PM CST RT Aerosol Therapy RT Aerosol Therapy Entered On: 04/07/2013 0:32 TILE AND MARBLE SETTER Performed On: 04/06/2013 23:50 TILE AND MARBLE SETTER by LUIS MCCARTHY Aerosol Therapy Done By : Nursing Therapy Treatment : Subsequent Indication : Cough, Physician ordered Aerosol Delivery Device : Small volume nebulizer Aerosol Treatment Route : T-Piece Patient Participation in Treatment : Cooperative Patient Effort : Good JOHNING, LUIS - 04/07/2013 0:32 TILE AND MARBLE SETTER Source: [employer] Document Id: [id number] TILE AND MARBLE SETTER!9 AND MARBLE SETTER Luis Willard R.N. - 04/06/2013 11:20 PM CST RT Aerosol Therapy RT Aerosol Therapy Entered On: 04/06/2013 23:29 TILE AND MARBLE SETTER Performed On: 04/06/2013 23:20 TILE AND MARBLE SETTER by LUIS MCCARTHY Aerosol Therapy Done By : Nursing Therapy Treatment : Subsequent Indication : Cough, Physician ordered Aerosol Delivery Device : Small volume nebulizer Aerosol Treatment Route : T-Piece Patient Participation in Treatment : Cooperative Patient Effort : LUIS Anaya - 04/06/2013 23:29 TILE AND MARBLE SETTER Source: [employer] Document Id: [id number] TILE AND MARBLE SETTER!9 AND MARBLE SETTER Luis Willard R.N. - 04/06/2013 10:39 PM CST RT Aerosol Therapy RT Aerosol Therapy Entered On: 04/06/2013 22:40 TILE AND MARBLE SETTER Performed On: 04/06/2013 22:39 TILE AND MARBLE SETTER by LUIS MCCARTHY Aerosol Therapy Done By : Nursing Therapy Treatment : Initial Indication : Cough, Physician ordered Aerosol Delivery Device : Small volume nebulizer Aerosol Treatment Route : T-Piece Patient Participation in Treatment : Cooperative Patient Effort : LUIS Anaya - 04/06/2013 22:39 TILE AND MARBLE SETTER PreTx/Assess Respiratory Rate : 18 /min LUIS MCCARTHY - 04/06/2013 22:39 TILE AND MARBLE SETTER Post Tx Assess Cough and Deep Breathe : Not done Suction : None Cough : Constant, Hacking Sputum Amount : None LUIS MCCARTHY - 04/06/2013 22:48 TILE AND MARBLE SETTER Post Tx Assess II Respiratory Treatment Response : Unchanged breath sounds Respiratory Untoward Symptoms : None Respiratory Symptoms : Cough Untoward Symptoms Effects on Tx : No effects on treatment LUIS MCCARTHY - 04/06/2013 22:48 TILE AND MARBLE SETTER Skin Color : Normal for ethnicity Level of Consciousness : Alert Respirations : Unlabored LUIS MCCARTHY - 04/06/2013 22:39 TILE AND MARBLE SETTER Source: [facility] POWERCHART Document Id: [id number] TILE AND MARBLE SETTER!24 AND MARBLE SETTER documented in this encounter Plan of Treatment Not on filedocumented as of this encounter Visit Diagnoses Not on filedocumented in this encounter
--- OUTSIDE RECORDS SUMMARY | 2022-03-16 15:08 | XMS_ITS | Encounter Summary ---
:[address] [facility] Address [address] [place] [address] Care Team Providers Name Role Phone Unavailable Primary Care Provider Unavailable Encounter Details Date Type Department Care Team Description 03/04/2013 Hospital Encounter HX [facility] Paul Boggs, N.P. [address] [place] [phone] (Wo rk) Social History Tobacco Use [...] Sign Reading Time Taken Comments Blood Pressure 116/78 03/04/2013 11:53 AM WO[employer] FACTORY WORKER Pulse 92 03/04/2013 11:53 AM WO[employer] FACTORY WORKER Temperature - - Respiratory Rate 20 03/04/2013 11:53 AM WOOD [employer] FACTORY WORKER Oxygen Saturation - - Inhaled Oxygen Concentration - - Weight 83.5 kg (184 lb 1.4 oz) 03/04/2013 11:53 AM WO[employer] FACTORY WORKER Height - - Body Mass Index 33.45 02/21/2013 8:02 AM WO[employer] FACTORY WORKER documented in this encounter Progress Notes Anna Boggs NStarr. - 03/04/2013 11:47 AM CST [id number] CHIEF COMPLAINT/REASON FOR VISIT Cough and cold symptoms. HISTORY OF PRESENT ILLNESS Carter is a 32-year-old female who is here today with concerns about not feeling well. She reports hersymptoms started 4 days ago and included some postnasal drip and a little bit of a sore throat but mostly a very tight, frequent cough. She has not noticed any fever. No abdominal complaints. She has had a slight headache. She has used some Sudafed and Robitussin with little improvement in her symptoms. She reports that her daughter has been sick with a sore throat and her boyfriend has been sick as well. She has a history of childhood asthma. MEDICATIONS Medications reviewed. New prescriptions today are for Ventolin inhaler 2 puffs 4 times a day as needed for shortness of breath or wheezing and cough. Robitussin with codeine cough syrup 1 teaspoon every 6 hours as needed for cough and Medrol Dosepak to use as directed. ALLERGIES Augmentin causes GI distress, Cipro and Silicone. PAST MEDICAL HISTORY/SURGICAL HISTORY Past medical history reviewed and unchanged, please see electronic medical record. VITAL SIGNS Temperature 36.1 pulse 92, respirations 20, blood pressure 116/78, O2 sat 98% on room air. PHYSICAL EXAMINATION GENERAL: Carter is alert, oriented times 3. She does appears somewhat ill. HEENT: Head is normocephalic, atraumatic. Right TM is slightly dull with a little bit of fluid present behind. No significant erythema. Left TM is shiny johnson and intact. No erythema or effusion present. Nasal mucosa is swollen. Rhinorrhea is present. No sinus tenderness. Oropharynx is mildly erythematous. NECK: Neck is supple. No lymphadenopathy. HEART: Heart rate is regular and S1, S2 is present. No murmur or rub. LUNGS: Clear to auscultation but frequent cough is noted during exam. IMPRESSION/REPORT/PLAN Bronchitis. PLAN: Discussed with Carter that based on her symptoms and the duration of them it seems reasonable totreat her with symptomatic treatment. Prescription for Robitussin with codeine cough syrup and Medrol Dosepak and Ventolin inhaler have been written. Fluids and rest are encouraged. If her symptoms areworsening, she can return to clinic for followup. Questions have been addressed and she is agreeableto this plan of care. Patient Education #1 Patient/parent/caregiver is ready to learn. No apparent learning barriers were identified. Learning preferences included listening. Explained diagnosis and treatment plan. Patient/parent/caregiver expressed understanding of the content. Stuart Baez/mesfin Electronically Signed By: ANNA BOGGS ANIMAL HEALTH TECHNICIAN On: 03/18/2013 01:19 PM Source: [facility] [email or web address] Document Id: [id number] AND WOOD [employer]ODUCTS FACTORY WORKER documented in this encounter Miscellaneous Notes Miscellaneous - Conversion, Historical Provider Ser - 03/19/2013 1:23 PM WOOD [employer] FACTORY WORKER got better/now worse Document Contains Addenda Addendum by GUIDO WALLACE LPN on 19 March 2013 14:52:36 WO[employer] FACTORY WORKER From: GUIDO WALLACE LPN To: GUIDO WALLACE LPN; Cc: TIRSO RIOS V; Sent: 03/19/2013 14:52:36 WO[employer] FACTORY WORKER Subject: FW: got better/now worse Patient was notified and will make an appointment Addendum by ANNA BOGGS NP on 19 March 2013 14:24:03 WO[employer] FACTORY WORKER From: ANNA BOGGS NP To: TIRSO RIOS V; Sent: 03/19/2013 14:24:03 WO[employer] FACTORY WORKER Subject: RE: got better/now worse If she is worse she should be seen. Thanks. From: TIRSO RIOS V To: ANNA BOGGS NP; Sent: 03/19/2013 13:23:24 WO[employer] FACTORY WORKER Subject: got better/now worse Pt got zpak 03/07 for URI. Got better but now worse. Please advise-uses [place] [email or web address] Document Id: [id number] Miscellaneous - Conversion, Historical Provider Ser - 03/07/2013 8:29 AM WO[employer] FACTORY WORKER sx not improved Document Contains Addenda Addendum by TIRSO RIOS V on 07 March 2013 08:51:57 WO[employer] FACTORY WORKER pt updated Addendum by ANNA BOGGS NP on 07 March 2013 08:33:18 WO[employer] FACTORY WORKER From: ANNA BOGGS NP To: TIRSO RIOS V; Sent: 03/07/2013 08:33:18 WO[employer] FACTORY WORKER Subject: RE: sx not improved Rx for Z-pack sent to pharmacy. Thanks. Addendum by ANNA BOGGS NP on 07 March 2013 08:33:04 [employer] FACTORY WORKER Submitted: Order:azithromycin (Zithromax Z-Dragan 250 mg oral tablet) 2 tablets on day 1, then 1 tablet on days 2-5 PO As Directed Qty: 6 tab(s) Duration: 5 day(s) Refills: 0 Substitutions Allowed Route To Pharmacy - [facility] Signed by ANNA BOGGS ANIMAL HEALTH TECHNICIAN From: TIRSO RIOS V To: ANNA BOGGS ANIMAL HEALTH TECHNICIAN; Sent: 03/07/2013 08:29:51 WO[employer] FACTORY WORKER Subject: sx not improved Pt seen Monday for cough/cold. LVM indicating you told her to call today if not improved.Reports sinuses are worse & [facility]. Please advise Source: [facility] POWERCHART Document Id: [id number] Miscellaneous - Anna Boggs, N.P. - 03/04/2013 12:58 PM CST Ambulatory Patient Summary [place] [id number] [place] [address] Visit Information Name: CARTER MENSAH [facility] Number: [id number] Current Date: 03/04/2013 12:58:08 Physicians Attending Provider: ANNA BOGGS NP Primary Care Provider: ANDREW VERA DNP, REGISTRATION SPECIALIST CARTER MENSAH has been given the following [...] medications. Medication/Strength Dose Route Frequency Indications/Special Instructions/Comments/Notes albuterol (Ventolin HFA 90 mcg/inh inhalation aerosol) 2 puff(s) Inhalation every 4 hours as needed for Shortness of breath / Wheezing methylPREDNISolone (Medrol Dosepak 4 mg oral tablet) See special instructions Oral as directed for 6Days codeine-guaiFENesin (Guaiatussin AC 10 mg-100 mg/5 mL oral syrup) 5 mL Oral every 6 hours as needed for cough and congestion ketorolac (ketorolac 10 mg oral tablet) [...] [facility] POWERCHART Document Id: [id number] AND [employer] FACTORY WORKER Miscellaneous - Anna Boggs, N.P. - 03/04/2013 12:58 PM CST Ambulatory Depart Summary [address] [address] Visit Information Name: CARTER MENSAH [facility] Number: [id number] Visit Date: 03/04/2013 12:58:07 Attending Provider: ANNA BOGGS ANIMAL HEALTH TECHNICIAN Primary Care Provider: ANDREW VERA DNP, REGISTRATION SPECIALIST CARTER MENSAH has been given the following list of medications: Your Medications It is important to take your medications as directed. Use a pill box or chart to help remind you to take your medications. Please let your doctor or nurse know if you have problems taking your medications. Medication/Strength Dose Route Frequency Indications/Special Instructions/Comments/Notes albuterol (Ventolin HFA 90 mcg/inh inhalation aerosol) 2 puff(s) Inhalation every 4 hours as needed for Shortness of breath / Wheezing methylPREDNISolone (Medrol Dosepak 4 mg oral tablet) See special instructions Oral as directed for 6Days codeine-guaiFENesin (Guaiatussin AC 10 mg-100 mg/5 mL oral syrup) 5 mL Oral every 6 hours as needed for cough and congestion ketorolac (ketorolac 10 mg oral tablet) [...] your provider for clarification. Additional Information: Source: [facility] POWERCHART Document Id: [id number] AND [employer] FACTORY WORKER Miscellaneous - Laine Diaz, L.P.N. - 03/04/2013 11:53 AM CST Adult Reduction Furnace Operator Intake/History Adult Reduction Furnace Operator Intake/History Entered On: 03/04/2013 11:58 WO[employer] FACTORY WORKER Performed On: 03/04/2013 11:53 WO[employer] FACTORY WORKER by LAINE DIAZ LPN Intake Chief Complaint : coughing , sore throat, chest hurts ,getting worse.since thurs Temperature Core : 36.1 DegC(Converted to: 97.0 DegF) (LOW) Peripheral Pulse Rate : 92 /min Respiratory Rate : 20 /min Heart Rhythm : Regular Systolic Blood Pressure : 116 mmHg Diastolic Blood Pressure : 78 mmHg NIBP Mean : 91 mmHg BP Location : Right upper extremity Blood Pressure Cuff Size : Large SpO2 : 98 % Oxygen Therapy : Room air Actual Weight : 83.5 kg(Converted to: 184 lb 1 oz) Weight Source : Standing scale Dosing Weight Clinic : 83.5 kg LAINE DIAZ LPN - 03/04/2013 11:53 WO[employer] FACTORY WORKER General Info Information Given By : Patient Preferred Communication Mode : Verbal Languages : Greenlandic [facility] 03/04/2013 11:53 WO[employer] FACTORY WORKER Subjective Pain Symptoms : Yes [facility] 03/04/2013 11:53 WO[employer] FACTORY WORKER Pain Pain Assessment Grid Pain 1 Location : Chest (Comment: coughing [[facility] 03/04/2013 11:53 WO[employer] FACTORY WORKER] ) Intensity : 6 [facility] 03/04/2013 11:53 WO[employer] FACTORY WORKER Dependent Habits Tobacco Use/Currently Using : Yes Exposure to Tobacco Smoke : Patient smokes Smoking Status : Current every day smoker [facility] 03/04/2013 11:53 WO[employer] FACTORY WORKER Tobacco Use Grid Type : Cigarettes Cigarette Use Packs/Day : 0.5 [facility] 03/04/2013 11:53 WO[employer] FACTORY WORKER Alcohol Use : No [facility] 03/04/2013 11:53 WO[employer] FACTORY WORKER Caffeine Use Grid Caffeine Use : Current Type : Soft drinks Frequency : Daily [facility] 03/04/2013 11:53 WO[employer] FACTORY WORKER Recreational Drug Use Grid Drug Use : None [facility] 03/04/2013 11:53 WOOD [employer] FACTORY WORKER [email or web address] Document Id: [id number] WO[employer] FACTORY WORKER!45 AND WOOD [employer]ODUCTS FACTORY WORKER documented in this encounter Plan of Treatment Not on filedocumented as of this encounter Visit Diagnoses Not on filedocumented in this encounter
--- OUTSIDE RECORDS SUMMARY | 2022-03-16 15:08 | XMS_ITS | Encounter Summary ---
:1980 Author Organization [facility] Address [address] [place] [address] Care Team Providers Name Role Phone Unavailable Primary Care Provider Unavailable Encounter Details Date Type Department Care Team Description 01/30/2013 Hospital Encounter HX [facility] Zina Campbell, LO, C.N.P., D. N.P. [address] [place] [address] (Wo rk) Social History Tobacco [...] More than 4 times per year 11/09/2020 latter day services? Do you belong to any clubs [...] or slept in a detention (including now)? Sex Assigned at Date Recorded Not on file documented as of this encounter Plan of Treatment Not on filedocumented as of this encounter Visit Diagnoses Not on filedocumented in this encounter
--- OUTSIDE RECORDS SUMMARY | 2022-03-16 15:09 | XMS_ITS | Encounter Summary ---
:[address] [facility] Address [address] [place] [address] Care Team Providers Name Role Phone Unavailable Primary Care Provider Unavailable Encounter Details Date Type Department Care Team Description 01/16/2012 Hospital Encounter HX [facility] Gutierrez Reddy III, M.D. [address] [place] [phone] (Wo rk) Social History Tobacco Use [...]
--- OUTSIDE RECORDS SUMMARY | 2022-03-16 15:09 | XMS_ITS | Encounter Summary ---
:1980 Author Organization [facility] Address [address] [place] [address] Care Team Providers Name Role Phone Unavailable Primary Care Provider Unavailable Encounter Details Date Type Department Care Team Description 04/19/2011 Hospital Encounter HX [facility] Andrew Vera, LO, C.N.P., D. N.P. [address] [place] [address] (Wo rk) Social History Tobacco [...] Sign Reading Time Taken Comments Blood Pressure 100/58 04/19/2011 5:36 PM CHARTER BOAT CAPTAIN Pulse - - Temperature - - Respiratory Rate 16 04/19/2011 5:36 PM CHARTER BOAT CAPTAIN Oxygen Saturation - - Inhaled Oxygen Concentration - - Weight 85.5 kg (188 lb 7.9 oz) 04/19/2011 5:36 PM CHARTER BOAT CAPTAIN Height - - Body Mass Index - - documented in this encounter Progress Notes Andrew Vera D.N.P., C.N.P. - 04/19/2011 12:00 AM CST [id number] CHIEF COMPLAINT/REASON FOR VISIT 1. Sinus congestion. 2. History of migraines. HISTORY OF PRESENT ILLNESS Patient is a 22-year-old female who presents to clinic today after, unfortunately, just recently having a miscarriage from April 08 to April 11 and she was approximately five to six weeks gestation. She then came to the emergency room on 04/12/2011 with a migraine and reports that she has been suffering from some chronic sinus congestion. She reports that she is not taking anything kspz-fqq-anaxnol to help the sinus congestion and is taking uwae-mty-vhitdaa Tylenol to help with her symptoms of discomfort with no symptom improvement. She is wondering if she can be prescribed an antibiotic and if this may help with her sinus congestion in addition to starting back on her Topamax 25 mg twice a day to help with a migraine prophylaxis. She otherwise denies having any other further concerns or issues at this time. CURRENT MEDICATIONS ALLERGIES Medications and allergies reviewed, please see chart. PAST MEDICAL HISTORY/SURGICAL HISTORY FAMILY HISTORY Past medical, surgical, family history reviewed. Please see chart. PHYSICAL EXAMINATION GENERAL: alert and oriented x 3. HEENT: head normocephalic, atraumatic. PERRLA. Oropharynx is pink and moist. Bilateral TMs are clear. Bony landmarks are noted and within normal limits. Nares are patent with no erythema or drainage noted. The right naris is noted to be erythematous and enlarged. NECK: no anterior or posterior lymphadenopathy is noted. LUNGS: clear to auscultation, no prolonged expiratory phases. No wheezes, rales, or rhonchi are noted. HEART: heart sounds are regular, S1 and S2. No murmurs, rubs, or gallops. SKIN: without any unusual rashes or suspicious lesions. IMPRESSION/REPORT/PLAN 1. Sinusitis. 2. History of migraines. PLAN: Discussed the findings at length with patient. I did opt to start the patient on doxycycline 100 mg tabs which she can take one tablet by mouth twice a day for 10 days #20 with no refills prescribed. Also indicated at this time we will go ahead and start her back on Topamax 25 mg for migraine prophylaxis to take one tablet by mouth daily for five days then take one tablet by mouth twice a day. We will see how she does with her overall migraine management. Patient understands this plan and she otherwise denied having any other further questions or concerns. The patient ambulated out of the clinic in no acute distress. Patient Education #1 Patient ready to learn. No apparent learning barriers were identified. Learning preferences included listening. Explained diagnosis and treatment plan. Patient expressed understanding of the content. Andrew Vera D.N.P., F.N.P. / Electronically Signed By: ANDREW VERA DNP, FNP On: 04/25/2011 03:22 PM Source: [facility] MHSDOLBEYNONRADSYS Document Id: [id number] TER BOAT CAPTAIN documented in this encounter Miscellaneous Notes Miscellaneous - Andrew Vera D.N.Samy., C.N.P. - 04/19/2011 7:04 PM CHARTER BOAT CAPTAIN Ambulatory Patient Summary [address] [address] Visit Information Name: CARTER MENSAH Current Date: 04/19/2011 19:04:49 Primary Care Provider: ANDREW VERA DNP, EXECUTIVE MANAGER Your Medications Here is a list of your medications. It is important to take your medications as directed. Use a pillbox or chart to help remind you to take your medications. Please let your doctor or nurse know if you have problems taking your medications. Medication/Strength Dose Route Frequency Indications/Special Instructions/Comments topiramate (Topamax 25 mg oral tablet) See Instructions Take one tab by mouth daily for 5 days, thentake one tab by mouth twice a day. doxycycline (doxycycline hyclate 100 mg oral tablet) 100 mg Oral two times a day for 10 Days naproxen (naproxen) Oral Pain ondansetron (ondansetron 4 mg oral tablet) 4 mg Oral every 8 hours as needed for Nausea/vomiting erythromycin topical (erythromycin topical 2% gel) 1 sonya Topical two times a day as needed for acne Your Allergies & Intolerances Substance Reaction Symptoms Category Comments Cipro Drug Augmentin XR Drug Silicone Drug Your Problem List Problem Status Onset Comments Migraine headache Active 04/17/1989 no known date of onset Sinusitis Active 05/19/2000 Abnormal Pap Active 10/21/2009 Acne vulgaris Active Date of onset unknown Examination or Test, Positive Result Active 03/31/2011 Your Recommendations We want to make sure you get the tests, immunizations, and guidance you need to stay healthy. Here is a customized list of recommendations, based on information we have in your medical record. Your doctor may have additional recommendations for you, based on your personal medical history and risk factors. You can help us by calling us to make an appointment when you are due for your tests. Additional information regarding recommendations: Test/Treatment Last Done Next Due Additional Information Health Assessment every 1 year 03/31/2011 03/30/2012 Screening Pap Smear every 3 years Women 21-65 06/17/2010 06/16/2013 Checks for signs of cancer of the cervix. Lipid Panel every 5 years Age 20-75 04/19/2011 Checks blood for good (HDL) and bad (LDL) cholesterol. Know your numbers, they are one indicator of your risk for heart attack and stroke. Vaccine: Tetanus every 10 years 06/13/2003 06/10/2013 Immunization to help prevent you from getting the serious disease Tetanus (Lockjaw). Your Upcoming Appointments Date Time Location Reason Provider No Appointments found Your Goals/Additional instructions: Source: [facility] POWERCHART Document Id: [id number] TER BOAT CAPTAIN Miscellaneous - Andrew Vera D.N.P., C.N.P. - 04/19/2011 7:04 PM CHARTER BOAT CAPTAIN Ambulatory Depart Summary [address] [address] Visit Information Name: CARTER MENSAH Current Date: 04/19/2011 19:04:48 Physicians Attending Physician: ANDREW VERA DNP, FNP Primary Care Provider: [...] Dose Route Frequency Indications/Special Instructions/Comments topiramate (Topamax 25 mg oral tablet) See Instructions Take one tab by mouth daily for 5 days, thentake one tab by mouth twice a day. doxycycline (doxycycline hyclate 100 mg oral tablet) 100 mg Oral two times a day for 10 Days naproxen (naproxen) Oral Pain ondansetron (ondansetron 4 mg oral tablet) 4 mg Oral every 8 hours as needed for Nausea/vomiting erythromycin topical (erythromycin topical 2% gel) 1 sonya Topical two times a day as needed for acne Additional Information: Yes - Current list of reconciled medications is provided and explained to the patient and/or family, guardian/caregiver. Source: [facility] POWERCHART Document Id: [id number] TER BOAT CAPTAIN Miscellaneous - Conversion, Historical Provider Ser - 04/19/2011 5:36 PM CHARTER BOAT CAPTAIN Adult Siebel Administrator Intake/History Adult Siebel Administrator Intake/History Entered On: 04/19/2011 17:38 CHARTER BOAT CAPTAIN Performed On: 04/19/2011 17:36 CHARTER BOAT CAPTAIN by JARAD NG LPN Intake Chief Complaint : c/o sinus headache for one week, was seen in the ER last week\ renew topamax Temperature Core : 37C(Converted to: 98.6DegF) Apical Heart Rate : 88/min Respiratory Rate : 16/min Systolic Blood Pressure : 100mmHg Diastolic Blood Pressure : 58mmHg NIBP Mean : 72mmHg Actual Weight : 85.5kg(Converted to: 188lb 8oz) Dosing Weight Clinic : 85.50kg JARAD NG LPN - 04/19/2011 17:36 CHARTER BOAT CAPTAIN Subjective Pain Symptoms : Yes JARAD NG LPN - 04/19/2011 17:36 CHARTER BOAT CAPTAIN Pain Pain Assessment Grid Pain 1 Location : Head Intensity : 2 JARAD NG LPN - 04/19/2011 17:36 CHARTER BOAT CAPTAIN Dependent Habits Tobacco Use/Currently Using : Yes Exposure to Tobacco Smoke : Patient smokes Smoking Status : Current every day smoker JARAD NG LPN - 04/19/2011 17:36 CHARTER BOAT CAPTAIN Tobacco Use Grid Type : Cigarettes Cigarette Use Packs/Day : 1.0 JARAD NG LPN - 04/19/2011 17:36 CHARTER BOAT CAPTAIN Caffeine Use Grid Caffeine Use : Current Type : Soft drinks Frequency : Daily JARAD NG LPN - 04/19/2011 17:36 CHARTER BOAT CAPTAIN Recreational Drug Use Grid Drug Use : None JARAD NG LPN - 04/19/2011 17:36 CHARTER BOAT CAPTAIN Allergy Allergies (Active) Augmentin XR Estimated Onset Date: Unspecified ; Created By: GUIDO WALLACE LPN; Reaction Status: Active ; Category: Drug ; Substance: Augmentin XR ; Type: Allergy ; Updated By: GUIDO WALLACE LPN; Reviewed Date: 04/12/2011 17:08 CHARTER BOAT CAPTAIN Cipro Estimated Onset Date: Unspecified ; Created By: YASMANY CAVANAUGH RN; Reaction Status: Active ; Category: Drug ; Substance: Cipro ; Type: Allergy ; Updated By: YASMANY CAVANAUGH RN; Reviewed Date: 04/12/2011 17:08 CHARTER BOAT CAPTAIN Silicone Estimated Onset Date: Unspecified ; Created By: JENNIFER FRANCIS RN; Reaction Status: Active ; Category: Drug ; Substance: Silicone ; Type: Sensitivity ; Updated By: JENNIFER FRANCIS RN; Reviewed Date: 04/12/2011 17:08 CHARTER BOAT CAPTAIN Source: [facility] POWERCHART Document Id: [id number] CHARTER BOAT CAPTAIN!34 documented in this encounter Plan of Treatment Not on filedocumented as of this encounter Visit Diagnoses Not on filedocumented in this encounter
--- OUTSIDE RECORDS SUMMARY | 2022-03-16 15:09 | XMS_ITS | Encounter Summary ---
:1980 Author Organization [facility] Address [address] [place] [address] Care Team Providers Name Role Phone Unavailable Primary Care Provider Unavailable Encounter Details Date Type Department Care Team Description 01/05/2012 Hospital Encounter HX [facility] Andrew Vera, LO, C.N.P., D. N.P. [address] [place] [address] (Wo rk) Social History Tobacco [...] Sign Reading Time Taken Comments Blood Pressure 90/56 01/05/2012 8:08 AM CDT Pulse 60 01/05/2012 8:08 AM CDT Temperature - - Respiratory Rate 16 01/05/2012 8:08 AM CDT Oxygen Saturation - - Inhaled Oxygen Concentration - - Weight 80.4 kg (177 lb 4 oz) 01/05/2012 8:08 AM CDT Height - - Body Mass Index 31.8 01/04/2012 5:15 PM CDT documented in this encounter H&P Notes Andrew Vera, Tristin.N.P., C.N.P. - 01/05/2012 8:02 AM CDT [id number] CHIEF COMPLAINT Left ear pain. HISTORY OF PRESENT ILLNESS The patient is a 31-year-old female who presents to the clinic today with a chief complaint of continued left eustachian tube dysfunction. I will note that the patient was previously seen by another provider on 01/02/2012 with severe left ear pain. At that time the patient will was already taking Cefzil for left otitis media since 12/31/11. She was continued on the Cefzil but given Tramadol to help with the discomfort. She had then been seen by me that same day for her daughter in which due to her severe ear pain, I did opt to give her Solu-Medrol, 125 milligrams, IM times 1 in which it did help that evening with her symptoms of otalgia but the otalgia was just as severe the following morning. The patient then was able to get in to an outside ears, nose and throat specialist in which incision and drainage was completed to the left tympanic membrane. She does indicate that she did have significantrelief of the symptoms of pressure but now indicates that the pressure has recurred. She also has some discomfort to the right ear. She indicates that they were going to do a trial of the incision and drainage and if no improvement, were contemplating PE tube placement. The patient reports that she would like to proceed with this as now she has bilateral ear discomfort. She does indicate that she does have some significant nasal congestion, despite taking allergy medication fairly faithfully. She has not been doing any nasal sprays with exception to some Afrin p.r.n. with no symptom improvement. She otherwise indicates that she is not having any other further concerns or issues at this time. MEDICATIONS Include: 1) Cefzil, 500 milligrams, 1-tablet, by mouth twice a day (starting 12/31/2011). 2) Sprintec control by mouth daily. 3) Topamax, 150 milligrams in the morning and 50 milligrams in the evening. 4) Tramadol, 50 milligrams, every 6 hours, p.r.n. pain. 5) Naproxen, vnhn-ofx-dylxape as directed on package p.r.n.. ALLERGIES 1) CIPRO. 2) SILICONE. 3) AUGMENTIN. PAST MEDICAL HISTORY Includes: 1) Abnormal Pap in 2009. 2) Acne vulgaris. 3) Allergic rhinitis. 4) Anxiety. 5) Migraine headaches since 1989. 6) History of smoking. PAST SURGICAL HISTORY Includes: 1) Endometrial biopsy. 2) Sinus surgery. 3) Tonsillectomy and adenoidectomy. SOCIAL HISTORY The patient is presently a single mother of one. She currently smokes approximately one pack per day. She has occasional alcohol usage and denies illicit drug usage. Currently working full-time at [employer]. PAST FAMILY HISTORY Includes: 1) Mother with history of alcoholism and Type II Diabetes Mellitus. 2) Father with a history of hypertension and headaches. 3) Sister with a history of asthma. VITAL SIGNS Heart rate: 60 beats per minute. Respirations: 16 per minute. Blood pressure: 90/56. Weight: 80.4 kilograms. Neck circumference: 34 centimeters. PHYSICAL EXAM OBJECTIVE: Patient is alert/oriented x 3. HEAD: Normocephalic/atraumatic. PUPILS: GLEN. OROPHARYNX: Walden and moist. TMs: Left tympanic membrane is noted be mildly bulging with bony landmarks that are noted to be at the 4:00. Tympanic membrane is dull and appears to be significantly less protruding that when I had seen her just a few days prior. Left tympanic membrane appears to be unremarkable as bony landmarks are within normal limits. NARES: Patent, no erythema or drainage noted. NECK: No anterior/posterior lymphadenopathy noted. HEART: Regular S1, S2, no murmurs, rubs or gallops noted. LUNGS: Clear to auscultation, no prolonged expiratory phases, wheezing, rales or rhonchi noted. SKIN: Without unusual rashes or suspicious lesions. LABORATORY DATA WBC noted be 12.3, hemoglobin 13.2, neutrophil absolute 8.11, lymphocyte absolute 2.98 and differential otherwise unremarkable. IMPRESSION 1) Continued left eustachian tube dysfunction., 2) Preoperative physical examination, unremarkable exam and future myringectomy to be completed as scheduled. PLAN 1) Left eustachian tube dysfunction: Presently at this time, I did indicate with her laboratory findings indicative of more of a bacterial infection as eosinophils are unremarkable. I recommend she currently finish the Cefzil antibiotic treatment as it is currently prescribed as 10-day course of treatment and she is now 5 days in to treatment. I did prescribe Rhinocort, 0.032 milligrams per inhalation nasal spray to instill 2 sprays into each nostril daily. Indicated to follow up as needed, though we will plan on having her also followup with Ears, Nose and Throat for re-evaluation of PE tube placement. 2. Preoperative physical exam: Presently at this time exam is otherwise unremarkable and if they do feel the need for PE tube placement we can go ahead and proceed with that as there are no medical indications to refrain from surgery. Patient is currently not a cardiac risk, pulmonary or DVT risk (given outpatient procedure). I will note she is currently a smoker and on control, but again this would be an outpatient procedure. No delirium or diabetic risk management is warranted at this time. Patient states she understands this plan. She otherwise denied having any other further concerns or issues. Patient ambulated out ofthe clinic in no acute distress. PATIENT EDU #1 Patient Education Ready to learn No apparent learning barriers were identified Learning preferences include listening Explained diagnosis and treatment plan Patient/Child/Caregiver expressed understanding of the content. Andrew Vera D.N.P./Anibal/orion Electronically Signed By: ANDREW VERA DNP, FNP On: 01/05/2012 10:43 AM Modified by and Electronically Signed by: ANDREW VERA DNP, FNP On: 01/05/2012 10:43 AM Source: [facility] MHSDOLBEYNONRADSYS Document Id: [id number] documented in this encounter Miscellaneous Notes Miscellaneous - William Mishra L.P.N. 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 Mae damon and he lanced it, now full again Peripheral Pulse Rate : 60/min Respiratory Rate : 16/min Heart Rhythm : Regular Systolic Blood Pressure : 90mmHg (LOW) Diastolic Blood Pressure : 56mmHg NIBP Mean : 67mmHg BP Location : Right upper extremity Blood Pressure Cuff Size : Regular Actual Weight : 80.4kg(Converted to: 177lb 4oz) Weight Source : Standing scale Dosing Weight Clinic : 80.40kg WILLIAM MISHRA LPN - 01/05/2012 8:08 CDT Subjective Pain Symptoms : No WILLIAM MISHRA LPN - 01/05/2012 8:08 CDT Dependent Habits Tobacco Use/Currently Using : Yes Tobacco Use/Advised to Quit : Yes Exposure to Tobacco Smoke : Patient smokes Smoking Status : Current every day smoker WILLIAM MISHRA LPN - 01/05/2012 8:08 CDT Tobacco Use Grid Type : Cigarettes Cigarette Use Packs/Day : 1.0 WILLIAM MISHRA LPN - 01/05/2012 8:08 CDT Alcohol Use : Yes WILLIAM MISHRA LPN - 01/05/2012 8:08 CDT Caffeine Use Grid Caffeine Use : Current Type : Soft drinks Frequency : Daily WILLIAM MISHRA LPN - 01/05/2012 8:08 CDT Recreational Drug Use Grid Drug Use : None WILLIAM MISHRA WIND TURBINE MECHANIC - 01/05/2012 8:08 CDT Allergy Allergies (Active) Augmentin XR Estimated Onset Date: Unspecified ; Reactions: GI distress ; Created By: MYRNA EDMONDS MD; Reaction Status: Active ; Category: Drug ; Substance: Augmentin XR ; Type: Intolerance ; Severity: Moderate ; Updated By: MYRNA EDMONDS MD; Source: Patient ; Reviewed Date: 01/05/2012 7:17 CDT Cipro Estimated Onset Date: Unspecified ; Created By: YASMANY CAVANAUGH RN; Reaction Status: Active ; Category: Drug ; Substance: Cipro ; Type: Allergy ; Updated By: YASMANY CAVANAUGH RN; Reviewed Date: 01/05/2012 7:17 CDT Silicone Estimated Onset Date: Unspecified ; Created By: JENNIFER FRANCIS RN; Reaction Status: Active ; Category: Drug ; Substance: Silicone ; Type: Sensitivity ; Updated By: JENNIFER FRANCIS RN; Reviewed Date: 01/05/2012 7:17 CDT Source: [facility] Pie DigitalCHART Document Id: [id number] documented in this encounter Plan of Treatment Not on filedocumented as of this encounter Procedures Procedure Name Priority Date/Time Associated Diagnosis Comme nts AUTOMATED Routine 01/05/2012 8:39 AM Results f or this DIFFERENTIAL, B CDT procedure ar e in the results section. CBC WITH Routine 01/05/2012 8:39 AM Results f or this DIFFERENTIAL, B CDT procedure ar e in the results section. documented in this encounter Results (ABNORMAL) Automated Differential (01/05/2012 8:39 AM CDT) [facility] Method Time Signature Neutro % 66.0 42.0 - POWERCHART 77.0 Lymphocytes % 24.2 23.0 - POWERCHART 44.0 HX Hitchcock % 6.5 2.0 - 18.0 POWERCHART HX Eos % 2.8 1.0 - 5.0 POWERCHART HX Baso % 0.5 0.0 - 1.0 POWERCHART Absolute 8.11 (H) 1.70 - POWERCHART Neutrophils 7.00 109L Lymphocytes 2.98 (H) 0.90 - POWERCHART 2.90 X109L Monocytes 0.80 0.30 - POWERCHART 0.90 X109L Eosinophils 0.35 0.05 - POWERCHART 0.50 X109L Absolute 0.06 0.00 - POWERCHART Basophil 0.30 X109L Specimen Anatomical Collection Method Collection Time Receive d Time (Source) Location / / Volume Laterality Blood 01/05/2012 8:39 AM 2 8:39 CDT AM CDT Andrew Vera APRN, C.N.P., D.N.P. LAB BLOOD ADD- ON Performing Organization Address City/State/[facility] Code Phon e Number POWERCHART (ABNORMAL) CBC with Differential (01/05/2012 8:39 AM CDT) [facility] gist Method Time Signature Leukocytes 12.3 (H) 3.4 - 10.5 POWERCHART X109L Erythrocytes 4.23 3.90 - POWERCHART 5.03 X2852Q Hemoglobin 13.2 12.0 - POWERCHART 15.5 GDL Hematocrit 39.2 34.9 - POWERCHART 44.5 MCV 92.7 82.0 - POWERCHART 98.0 FL HX RDW 12.4 11.9 - POWERCHART 15.5 Platelet Count 344 150 - 450 POWERCHART X109L HXDifferential? Auto POWERCHART Specimen (Source) Anatomical Collection Method Collection Time Re ceived Time Location / / Volume Laterality Blood 01/05/2012 8:39 AM CDT Andrew Vera APRN, C.N.P., D.N.P. LAB BLOOD ADD- ON Performing Organization Address City/State/[facility] Code Phon e Number POWERCHART documented in this encounter Visit Diagnoses Not on filedocumented in this encounter
--- OUTSIDE RECORDS SUMMARY | 2022-03-16 15:09 | XMS_ITS | Encounter Summary ---
:1980 Author Organization [facility] Address [address] [place] [address] Care Team Providers Name Role Phone Unavailable Primary Care Provider Unavailable Encounter Details Date Type Department Care Team Description 01/11/2012 Hospital Encounter HX [facility] Raquel shetty M.D. [address] [place] [phone] (Wo rk) Social History Tobacco Use [...] or relatives? How often do you attend mu-ism or More than 4 times per year 11/09/2020 druze services? Do you belong to any clubs or No 11/09/2020 organizations such as mu-ism groups, unions, fraternal or athletic groups, or [...] Sign Reading Time Taken Comments Blood Pressure 96/68 01/11/2012 5:33 PM CDT Pulse 85 01/11/2012 5:33 PM CDT Temperature - - Respiratory Rate - - Oxygen Saturation - - Inhaled Oxygen Concentration - - Weight 80.2 kg (176 lb 12.9 oz) 01/11/2012 5:33 PM CDT Height - - Body Mass Index 31.72 01/04/2012 5:15 PM CDT documented in this encounter H&P Notes Raquel Schmidt M.D. - 01/11/2012 5:30 PM CDT [id number] CHIEF COMPLAINT/REASON FOR VISIT Followup lab results. HISTORY OF PRESENT ILLNESS Dulce is a 31-year-old female who comes in for followup of her colposcopy biopsy results. She has not had any problems such as cramping or bleeding after her colposcopy. We discussed that the ectocervix biopsy showed LISSETT-1 which is consistent with her Pap smear. We discussed that this is a mild dysplasia and therefore we can continue to monitor it rather than referring her on for an excisional procedure. We reviewed that the guidelines have changed since the patient has had her last shave biopsy. We discussed that most of the time her body will go on to clear this change on its own. We discussed the patient will need followup Pap smear in 6-12 months to further monitor. If this Pap smear is normal, she can then be checked on a yearly basis. If this Pap smear is abnormal, the patient would again need to undergo colposcopy. She reports that since the age of 18 her Pap smears always seem to be abnormal and therefore she is concerned that will continue to happen. We discussed that that is possible but at this point the guidelines do not recommend moving straight to an excisional procedure. Certainly if things progressed, that would be recommended. We also again discussed that the patient's smoking status puts her at risk for cervical cancer and she was advised to quit. Patient notes that she does have the patches and she just needs to set a quit date. CURRENT MEDICATIONS Reconciled. No changes. ALLERGIES Cipro. Silicone. Augmentin. SYSTEMS REVIEW Review of systems as per history of present illness. VITAL SIGNS Temperature 36.3 degreesC. Pulse is 85 beats per minute. Blood pressure is 96/58. Oxygen saturation is 99% on room air. Weight is 80.3 kg. PHYSICAL EXAMINATION Patient is alert and oriented, in no acute distress. No other exam was completed. IMPRESSION/REPORT/PLAN LISSETT-1. Please see the discussion above regarding the patient's abnormal Pap smear. She also wonders if she would be able to get the Gardasil vaccine. We discussed that the recommended ages are 9 to 26,and although she would fall out of this range most likely she could still get it. Her insurance company may not cover it, however, and therefore she asked if a letter could be sent to her insurance to get them to cover it. I stated that I would want to talk with the pharmacist to make sure that they would not have any issue giving this medicine and then we could certainly try to get her insurance to approve it if necessary. PATIENT EDUCATION: Ready to learn No apparent learning barriers were identified Learning preferences include listening Explained diagnosis and treatment plan Patient/Child/Caregiver expressed understanding of the content Raquel Omalley M.D./andre Electronically Signed By: RAQUEL ARCHULETA MD On: 01/23/2012 02:39 PM Modified by and Electronically Signed by: RAQUEL ARCHULETA MD On: 01/23/2012 02:39 PM Source: [facility] [id number] Document Id: [id number] documented in this encounter Miscellaneous Notes Miscellaneous - Delma Gutierrez L.P.N. 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 Compilation Clerk Intake/History Entered On: 01/11/2012 17:36 CDT Performed On: 01/11/2012 17:33 CDT by DELMA GUTIERREZ LPN, RT Intake Chief Complaint : f/u lab results Temperature Core : 36.3C(Converted to: 97.3DegF) (LOW) Peripheral Pulse Rate : 85/min Systolic Blood Pressure : 96mmHg Diastolic Blood Pressure : 68mmHg NIBP Mean : 77mmHg BP Location : Right upper extremity Blood Pressure Cuff Size : Regular SpO2 : 99% Oxygen Therapy : Room air Actual Weight : 80.2kg(Converted to: 176lb 13oz) Weight Source : Standing scale Dosing Weight Clinic : 80.20kg DELMA GUTIERREZ LPN, RT - 01/11/2012 17:33 CDT General Info Information Given By : Patient Preferred Communication Mode : Verbal Languages : Slovenian DELMA GUTIERREZ LPN, RT - 01/11/2012 17:33 CDT Subjective Pain Symptoms : No DELMA GUTIERREZ LPN, RT - 01/11/2012 17:33 CDT Dependent Habits Tobacco Use/Currently Using : Yes Exposure to Tobacco Smoke : Patient smokes Smoking Status : Current every day smoker DELMA GUTIERREZ LPN, RT - 01/11/2012 17:33 CDT Tobacco Use Grid Type : Cigarettes Cigarette Use Packs/Day : 1.0 DELMA GUTIERREZ LPN, RT - 01/11/2012 17:33 CDT Caffeine Use Grid Caffeine Use : Current Type : Soft drinks Frequency : Daily DELMA GUTIERREZ LPN, RT 01/11/2012 17:33 CDT Recreational Drug Use Grid Drug Use : None DELMA GUTIERREZ LPN, 01/11/2012 17:33 CDT Allergy Allergies (Active) Augmentin XR Estimated Onset Date: Unspecified ; Reactions: GI distress ; Created By: MYRNA EDMONDS MD; Reaction Status: Active ; Category: Drug ; Substance: Augmentin XR ; Type: Intolerance ; Severity: Moderate ; Updated By: MYRNA EDMONDS MD; Source: Patient ; Reviewed Date: 01/09/2012 7:38 CDT Cipro Estimated Onset Date: Unspecified ; Created By: YASMANY CAVANAUGH RN; Reaction Status: Active ; Category: Drug ; Substance: Cipro ; Type: Allergy ; Updated By: YASMANY CAVANAUGH RN; Reviewed Date: 01/09/2012 7:38 CDT Silicone Estimated Onset Date: Unspecified ; Created By: JENNIFER FRANCIS RN; Reaction Status: Active ; Category: Drug ; Substance: Silicone ; Type: Sensitivity ; Updated By: JENNIFER FRANCIS RN; Reviewed Date: 01/09/2012 7:38 CDT Source: [facility] Go800 Document Id: [id number] documented in this encounter Plan of Treatment Not on filedocumented as of this encounter Visit Diagnoses Not on filedocumented in this encounter
--- OUTSIDE RECORDS SUMMARY | 2022-03-16 15:09 | XMS_ITS | Encounter Summary ---
:1980 Author Organization [facility] Address [address] [place] [address] Care Team Providers Name Role Phone Unavailable Primary Care Provider Unavailable Encounter Details Date Type Department Care Team Description 12/31/[address] [facility] Quique, Carmen murphy P.A.-C., P.A. [address] [place] [phone] (Wo rk) Social History Tobacco [...] Sign Reading Time Taken Comments Blood Pressure 98/64 12/31/2011 8:58 AM CDT Pulse 72 12/31/2011 8:58 AM CDT Temperature - - Respiratory Rate 16 12/31/2011 8:58 AM CDT Oxygen Saturation - - Inhaled Oxygen Concentration - - Weight - - Height - - Body Mass Index - - documented in this encounter Progress Notes Jolene Mensah - 12/31/2011 8:38 AM CDT [id number] CHIEF COMPLAINT/REASON FOR VISIT This is a 31-year-old female seen today complaining of left ear fullness, pressure and pain. She states that she was seen in the [facility] four days ago and diagnosed with bilateral ear infections. She was given an injection of Rocephin and started on amoxicillin. She states that she has been using Afrin nasal sprays and a lot of decongestants over the last several days and it just does not seem to be improving. Her left ear is still bothering her significantly. She is not running a fever but is very uncomfortable. CURRENT MEDICATIONS Reviewed in the EMR. PAST MEDICAL/SURGICAL HISTORY Reviewed in the EMR. ALLERGIES Augmentin, Cipro and silicone. VITAL SIGNS Temperature 36.3. Heart rate 72. Respirations 16. Blood pressure 98/64. PHYSICAL EXAMINATION GENERAL: She is alert, interactive and cooperative. She appears to be well nourished and well hydrated in no acute distress. HEENT: Head is normocephalic, atraumatic. Left tympanic membrane is erythematous and bulging. Canal is clear. The right is dull, but there is no erythema. Canal is clear. Sclerae and conjunctivae are clear. Nares are non-congested. Oral mucosa is pink and moist. Posterior pharynx is nonerythematous. Tonsils are not enlarged. No exudate. NECK: Supple. No lymphadenopathy. LUNGS: Lungs sound clear to auscultation bilaterally. No wheezes. HEART: Regular rate and rhythm. IMPRESSION/REPORT/PLAN Left otitis media. PLAN I switched her to Cefzil 5 mg tablets one tablet by mouth twice daily four 10 days. She should return if it is not improving, otherwise call or return for any other questions or concerns. Jolene Mensah P.A.-C./[facility] Electronically Signed By: JOLENE MENSAH On: 01/03/2012 12:10 PM Source: [facility] MHSDOLBEYNONRADSYS Document Id: [id number] documented in this encounter Miscellaneous Notes Miscellaneous - Jolene Mensah - 12/31/2011 11:27 AM CDT Ambulatory Patient Summary [address] [address] Visit Information Name: QUIQUECARTER Current Date: 12/31/2011 11:27:31 Physicians Attending Provider: JOLENE MENSAH Primary Care Provider: ANDREW VERA [facility], WHEEL MOLDER Your Medications Here is a list of your medications. It is important to take your medications as directed. Use a pillbox or chart to help remind you to take your medications. Please let your doctor or nurse know if you have problems taking your medications. Medication/Strength Dose Route Frequency Indications/Special Instructions/Comments cefprozil (Cefzil 500 mg oral tablet) 500 mg Oral two times a day for 10 Days hydrocodone-acetaminophen (Vicodin 5 mg-500 mg oral tablet) 1 to 2 tablets Oral every 6 hours as needed for Pain No more than 4,000mg acetaminophen/24hrs topiramate (Topamax 50 mg oral tablet) 50 mg Oral two times a day take in AM with 100mg tab to [id number] & take 1 tab in PM ( 50mg dose) topiramate (Topamax 100 mg oral tablet) 100 mg Oral once a day norgestimate-ethinyl estradiol (Sprintec 0.25 mg-35 mcg oral tablet) 1 tab(s) Oral once a day start on the first Monday after menstruation trazodone (trazodone 50 mg oral tablet) 50 mg Oral once a day (at bedtime) Start with 1/2 pill at bedtime, and increase to 1 pill at bedtime as needed naproxen (naproxen) Oral Pain Attention: If you have any medications at [...] vulgaris Active 12/17/10 Date of onset unknown Examination or Test, Positive Result Active 03/31/2011 Anxiety State, Unspecified Active 08/22/2011 Allergic rhinitis, unspecified Active 08/22/2011 Tobacco Use Disorder Active 08/22/2011 Your Upcoming Appointments Date Time Location Reason Provider 01/04/2012 17:15 PSYCHIATRIC Family Med COPOSCOPY Your Goals/Additional instructions: Source: [facility] POWERCHART Document Id: [id number] Miscellaneous - Jolene Mensah - 12/31/2011 11:27 AM CDT Ambulatory Depart Summary [address] [address] Visit Information Name: CARTER MENSAH Visit Date: 12/31/2011 11:27:30 Attending Provider: JOLENE MENSAH Primary Care Provider: ANDREW VERA DNP, WHEEL MOLDER CARTER MENSAH has been given the following list of medications: Your Medications It is important to take your medications as directed. Use a pill box or chart to help remind you to take your medications. Please let your doctor or nurse know if you have problems taking your medications. Medication/Strength Dose Route Frequency Indications/Special Instructions/Comments cefprozil (Cefzil 500 mg oral tablet) 500 mg Oral two times a day for 10 Days hydrocodone-acetaminophen (Vicodin 5 mg-500 mg oral tablet) 1 to 2 tablets Oral every 6 hours as needed for Pain No more than 4,000mg acetaminophen/24hrs topiramate (Topamax 50 mg oral tablet) 50 mg Oral two times a day take in AM with 100mg tab to [id number] & take 1 tab in PM ( 50mg dose) topiramate (Topamax 100 mg oral tablet) 100 mg Oral once a day norgestimate-ethinyl estradiol (Sprintec 0.25 mg-35 mcg oral tablet) 1 tab(s) Oral once a day start on the first Monday after menstruation trazodone (trazodone 50 mg oral tablet) 50 mg Oral once a day (at bedtime) Start with 1/2 pill at bedtime, and increase to 1 pill at bedtime as needed naproxen (naproxen) Oral Pain Attention: If you have any medications at home that are not on this list, DO NOT take them until youcontact your provider for clarification. Additional Information: Source: [facility] POWERCHART Document Id: [id number] Miscellaneous - Aron Bo, L.P.N. - 12/31/2011 8:58 AM CDT Adult Bulk Sugar Handler Intake/History Adult Bulk Sugar Handler Intake/History Entered On: 12/31/2011 9:05 CDT Performed On: 12/31/2011 8:58 CDT by ARON BO LPN Intake Chief Complaint : Left ear pressure/ringing for 1 week. Was given antibiotics and shot of roseffin on Monday. No improvement. Temperature Core : 36.3C(Converted to: 97.3DegF) (LOW) Peripheral Pulse Rate : 72/min Respiratory Rate : 16/min Systolic Blood Pressure : 98mmHg Diastolic Blood Pressure : 64mmHg NIBP Mean : 75mmHg BP Location : Left upper extremity Blood Pressure Cuff Size : Regular SpO2 : 98% Oxygen Therapy : Room air ARON BO LPN 12/31/2011 8:58 CDT Subjective Pain Symptoms : Yes ANUPAM ARON Crow [facility] 12/31/2011 8:58 CDT Pain Pain Assessment Grid Pain 1 Location : Ear Laterality : Left Intensity : 6 Quality : Pressure ARON BO [facility] 12/31/2011 8:58 CDT Dependent Habits Tobacco Use/Currently Using : Yes Exposure to Tobacco Smoke : Patient smokes Smoking Status : Current every day smoker ARON BO [facility] 12/31/2011 8:58 CDT Tobacco Use Grid Type : Cigarettes Cigarette Use Packs/Day : 1.0 Last Use : today ARON BO [facility] 12/31/2011 8:58 CDT Alcohol Use : Yes ARON BO [facility] 12/31/2011 8:58 CDT Caffeine Use Grid Caffeine Use : Current Type : Soft drinks Frequency : Daily ARON BO [facility] 12/31/2011 8:58 CDT Recreational Drug Use Grid Drug Use : None ARON BO [facility] 12/31/2011 8:58 CDT Allergy Allergies (Active) Augmentin XR Estimated Onset Date: Unspecified ; Reactions: GI distress ; Created By: MYRNA EDMONDS MD; Reaction Status: Active ; Category: Drug ; Substance: Augmentin XR ; Type: Intolerance ; Severity: Moderate ; Updated By: MYRNA EDMONDS MD; Source: Patient ; Reviewed Date: 12/27/2011 13:01 CDT Cipro Estimated Onset Date: Unspecified ; Created By: YASMANY CAVANAUGH RN; Reaction Status: Active ; Category: Drug ; Substance: Cipro ; Type: Allergy ; Updated By: YASMANY CAVANAUGH RN; Reviewed Date: 12/27/2011 13:01 CDT Silicone Estimated Onset Date: Unspecified ; Created By: JENNIFER FRANCIS RN; Reaction Status: Active ; Category: Drug ; Substance: Silicone ; Type: Sensitivity ; Updated By: JENNIFER FRANCIS RN; Reviewed Date: 12/27/2011 13:01 CDT Source: [facility] POWERCHART Document Id: [id number] documented in this encounter Plan of Treatment Not on filedocumented as of this encounter Visit Diagnoses Not on filedocumented in this encounter
--- OUTSIDE RECORDS SUMMARY | 2022-03-16 15:09 | XMS_ITS | Encounter Summary ---
:1980 Author Organization [facility] Address [address] [place] [address] Care Team Providers Name Role Phone Unavailable Primary Care Provider Unavailable Encounter Details Date Type Department Care Team Description 05/30/[address] [facility] Andrew Vera, LO, C.N.P., D. N.P. [address] [place] [address] (Wo rk) Social History Tobacco [...] Reading Time Taken Comments Blood Pressure 110/70 05/30/2011 12:20 PM CIRCULATION ASSISTANT Pulse 86 05/30/2011 12:20 PM CIRCULATION ASSISTANT Temperature - - Respiratory Rate 20 05/30/2011 12:20 PM CIRCULATION ASSISTANT Oxygen Saturation - - Inhaled Oxygen Concentration - - Weight 82 kg (180 lb 12.4 oz) 05/30/2011 12:20 PM CIRCULATION ASSISTANT Height - - Body Mass Index - - documented in this encounter Progress Notes Andrew Vera D.N.P., C.N.P. - 05/30/2011 12:00 AM CST [id number] CHIEF COMPLAINT/REASON FOR VISIT Nasal congestion. HISTORY OF PRESENT ILLNESS Patient 31-year-old female with chief complaint of having nasal congestion for the past three days. She reports that she has taken some [id number] Sudafed to help with the symptoms with minimal symptom improvement. She reports that she has not any exposure any kind of viral or bacterial infections that she is aware and denies shortness of breath or difficulty breathing. She reports that she has more fullness sensation in the right side versus the left side, and also reports that she does feel occasionally hot and cold. She otherwise reports that she has not used anything else [id number] help with the symptoms. She does report that she does require creatinine blood drawn today, given the fact that she is on Topamax for migraine prevention. PAST MEDICAL/SURGICAL HISTORY FAMILY HISTORY Reviewed. Please see chart. CURRENT MEDICATIONS ALLERGIES Reviewed. Please see chart. PHYSICAL EXAMINATION OBJECTIVE: Patient is alert/oriented x 3. HEAD: Normocephalic/atraumatic. PUPILS: GLEN. OROPHARYNX: [place] and moist. TMs: Bilateral TMs are clear, bony landmarks noted and WNL. NARES: The bilateral nares are erythematous and large with left mid be greater than right with mucosal swelling. No secretions are noted on examination. NECK: No anterior/posterior lymphadenopathy noted. HEART: Regular S1, S2, no murmurs, rubs or gallops noted. LUNGS: Clear to auscultation, no prolonged expiratory phases, wheezing, rales or rhonchi noted. SKIN: Without unusual rashes or suspicious lesions LABORATORY DATA Creatinine is presently pending. IMPRESSION/REPORT/PLAN IMPRESSION 1. URI. 2. Medication management for migraine prevention. PLAN Discussed the findings with length with the patient. Indicated most likely symptoms are secondary to a viral etiology. Recommend humidified air, encouraging fluid intake. Indicated that she is to follow up as needed. We will also plan on contacting the patient regarding laboratory results. Patient states she understands the plan, denied having any other further questions or concerns. The patient ambulated out of the clinic in no acute distress. PATIENT EDU #1 Patient Education Ready to learn No apparent learning barriers were identified Learning preferences include listening Explained diagnosis and treatment plan Patient/Child/Caregiver expressed understanding of the content. Andrew Vera D.N.P., F.N.P. /orion Electronically Signed By: ANDREW VERA DNP, FNP On: 06/02/2011 08:20 AM Source[facility] Document Id: [id number] ULATION ASSISTANT documented in this encounter Miscellaneous Notes Miscellaneous - Andrew Vera D.N.Samy., C.N.P. - 05/30/2011 1:27 PM CIRCULATION ASSISTANT Ambulatory Patient Summary [id number] [place] [address] Visit Information Name: CARTER MENSAH Current Date: 05/30/2011 13:27:37 Primary Care Provider: ANDREW VERA DNP, FNP [...] Instructions/Comments topiramate (Topamax 25 mg oral tablet) 25 mg Oral two times a day medroxyPROGESTERone (Depo-Provera) See Instructions 150 mg IM every 3 months for 1 year (expires 05/10/11) ondansetron (ondansetron 4 mg oral tablet) 4 mg Oral every 8 hours as needed for Nausea/vomiting naproxen (naproxen) Oral Pain erythromycin topical (erythromycin topical 2% gel) 1 [...] Lipid Panel every 5 years Age 20-75 05/30/2011 Checks blood for good (HDL) and bad (LDL) cholesterol. Know your numbers, they are one indicator of your risk for heart attack and stroke. Vaccine: Tetanus every 10 years 06/13/2003 06/10/2013 Immunization to help prevent you from getting the serious disease Tetanus (Lockjaw). Your Upcoming Appointments Date Time Location Reason Provider No Appointments found Your Goals/Additional instructions: Source: [facility] POWERCHART Document Id: [id number] ULATION ASSISTANT Miscellaneous - VeraAndrew agudelo D.N.P., C.N.P. - 05/30/2011 1:27 PM CIRCULATION ASSISTANT Ambulatory Depart Summary [id number] [place] [address] Visit Information Name: CARTER MENSAH Current Date: 05/30/2011 13:27:36 Attending Provider: ANDREW VERA DNP, FNP Primary [...] Instructions/Comments topiramate (Topamax 25 mg oral tablet) 25 mg Oral two times a day medroxyPROGESTERone (Depo-Provera) See Instructions 150 mg IM every 3 months for 1 year (expires 05/10/11) ondansetron (ondansetron 4 mg oral tablet) 4 mg Oral every 8 hours as needed for Nausea/vomiting naproxen (naproxen) Oral Pain erythromycin topical (erythromycin topical 2% gel) 1 sonya Topical two times a day as needed for acne Additional Information: Yes - Current list of reconciled medications is provided and explained to the patient and/or family, guardian/caregiver. Source: [facility] POWERCHART Document Id: [id number] ULATION ASSISTANT Miscellaneous - Hunter Branch L.P.N. - 05/30/2011 12:20 PM CST Adult Stave Cutting Supervisor Intake/History Adult Stave Cutting Supervisor Intake/History Entered On: 05/30/2011 12:24 CIRCULATION ASSISTANT Performed On: 05/30/2011 12:20 CIRCULATION ASSISTANT by [facility]EN[facility] CARE PROVIDER Intake Chief Complaint : sinus congestion since Monday. Drainage down throat causing irratation. Sinus pressure. Mild cough. Hot and cold flashes. Took 5- 200mg tabs of IBP this a.m. Temperature Core : 37.2C(Converted to: 99.0DegF) Peripheral Pulse Rate : 86/min Respiratory Rate : 20/min Heart Rhythm : Regular Systolic Blood Pressure : 110mmHg Diastolic Blood Pressure : 70mmHg NIBP Mean : 83mmHg BP Location : Left upper extremity Blood Pressure Cuff Size : Regular SpO2 : 98% Actual Weight : 82.0kg(Converted to: 180lb 12oz) Weight Source : Standing scale Dosing Weight Clinic : 82.00kg [facility] SENIOR CARE PROVIDER - 05/30/2011 12:20 CIRCULATION ASSISTANT Subjective Pain Symptoms : No [facility] - 05/30/2011 12:20 CIRCULATION ASSISTANT Dependent Habits Tobacco Use/Currently Using : Yes Exposure to Tobacco Smoke : Patient smokes Smoking Status : Smoker [facility] - 05/30/2011 12:20 CIRCULATION ASSISTANT Tobacco Use Grid Type : Cigarettes Cigarette Use Packs/Day : 1.0 [facility] [place] - 05/30/2011 12:20 CIRCULATION ASSISTANT Caffeine Use Grid Caffeine Use : Current Type : Soft drinks Frequency : Daily [facility] - 05/30/2011 12:20 CIRCULATION ASSISTANT Recreational Drug Use Grid Drug Use : None [facility] - 05/30/2011 12:20 CIRCULATION ASSISTANT Allergy Allergies (Active) Augmentin XR Estimated Onset Date: Unspecified ; Created By: GUIDO WALLACE LPN; Reaction Status: Active ; Category: Drug ; Substance: Augmentin XR ; Type: Allergy ; Updated By: GUIDO WALLACE LPN; Reviewed Date: 05/30/2011 12:20 CIRCULATION ASSISTANT Cipro Estimated Onset Date: Unspecified ; Created By: YASMANY CAVANAUGH RN; Reaction Status: Active ; Category: Drug ; Substance: Cipro ; Type: Allergy ; Updated By: YASMANY CAVANAUGH RN; Reviewed Date: 05/30/2011 12:20 CIRCULATION ASSISTANT Silicone Estimated Onset Date: Unspecified ; Created By: JENNIFER FRANCIS RN; Reaction Status: Active ; Category: Drug ; Substance: Silicone ; Type: Sensitivity ; Updated By: JENNIFER FRANCIS RN; Reviewed Date: 05/30/2011 12:20 CIRCULATION ASSISTANT Source: [facility] POWERCHART Document Id: [id number] CIRCULATION ASSISTANT!34 ULATION ASSISTANT documented in this encounter Plan of Treatment Not on filedocumented as of this encounter Visit Diagnoses Not on filedocumented in this encounter
--- OUTSIDE RECORDS SUMMARY | 2022-03-16 15:09 | XMS_ITS | Encounter Summary ---
:1980 Author Organization [facility] Address [address] [place] [address] Care Team Providers Name Role Phone Unavailable Primary Care Provider Unavailable Encounter Details Date Type Department Care Team Description 10/10/2011 Hospital Encounter [facility] Kaylee Chawla, P.A.-CLashawn [address] [place], [place] [address] (Wo rk) Social History Tobacco Use Types [...] documented as of this encounter Progress Notes Kaylee Chawla P.A.-C. - 10/10/2011 1:05 PM CDT [id number] SUBJECTIVE: Dulce Lei is a 31 year old female who complains of an injury of moderate severity to the right side proximal toes. The injury occurred approximant 1 days ago. Location where injury occurred: home.The patient reports the injury occurred as a result of dropped a heavy dresser on foot while moving it upstairs. Dulce reports not being able to use immediately following injury. Has tried the following treatments:ice, ibuprofen, elevation. Alleviating factors:ice, ibuprofen, elevation. Aggravating factors: walking, pressure on forefoot. Patient Active Problem List Diagnoses CLASS MIGRAIN W/O MENTN INTRACTABLE SUPERVIS NORMAL 1ST PREG OTHER BACK SYMPTOMS Lumbar Radiculopathy Bladder Pain Current Outpatient Prescriptions Medication Sig Fexofenadine-Pseudoephedrine (KAILYN-D OR) Take by mouth. OTC, pr reports taking, per pkg instructions Ondansetron HCl (ZOFRAN PO) Take by mouth. ORTHO TRI-CYCLEN LO 0.18/0.215/0.25 MG-25 MCG PO TABS 1 TABLET DAILY TOPAMAX 50 MG OR TABS 1 TABLETS AT NIGHT FOR HEADACHES History Smoking status Current Everyday Smoker -- 0.5 packs/day Types: Cigarettes Smokeless tobacco Never Used Comment: 5-7 cigs q day. declines call 10/10/11 she denies other significant symptoms on ROS of the cardiovascular and Respiratory systems. Current medications reviewed and the patient denies any problems with compliance or side effects. OBJECTIVE: BP 102/64 Pulse 88 Temp(Src) 97.2 ??F (36.2 ??C) (Temporal) Ht 1.6 m (5' 3) Wt 83.008 kg (183 lb) BMI 32.42 kg/m2 LMP 09/26/2011 The patients general appearance is well nourished well developed without apparent distress. Patientexhibits stable mood, affect, judgment, insight and orientation during conversation. External ears nose are within normal limits. Normal lips teeth and gums. Neck is grossly normal without obvious thyroid abnormality. Skin is without cyanosis and of normal color. No focal neurological deficits noted on gross inspection. Exam of the Right Second - fourth toe(s) reveals, swelling over MTP joint, brusing seen DIAGNOSTICS: Results for orders placed in visit on 10/10/11 X-RAY RT FOOT G/E 3 VWS Component Value Range IMAGECAST RESULT Value: Three views right foot Oct 10, 2011 1:31:00 PM HISTORY: INJURY COMPARISON: None. FINDINGS: No acute fracture, degenerative change or soft tissue abnormality. IMPRESSION: Negative. ASSESSMENT/PLAN: 1. Right foot injury X-ray rt Foot G/E 3 vws*, acetaminophen-codeine 300-30 MG per tablet alternate tylenol and ibuprofen. See work note. Call or return to clinic prn if these symptoms worsen or fail to improve as anticipated. The patient indicates understanding of these issues and agrees with the plan. Source: [facility] Document Id: [id number] Electronically signed by Conversion, [facility] Inner Tube Tuber Machine Operator [id number] at 09/17/2016 6:26 PM CDT documented in this encounter Miscellaneous Notes Miscellaneous - Kaylee Chawla P.A.-C. - 10/10/2011 1:05 PM CDT [id number] [facility] [address] [facility] [address] October 10, 2011 Dulce Lei [address] [facility] [address] To whom it may concern: RE: Dulce Lei Patient was seen and treated today at our clinic and missed work. Patient may return to work October 10, 2011 with the following: Light duty-unable to walk more than occasionally. No lifting or carrying. No ladders, no standing. Keep right foot elevated most of the time. Ice intermittently (15-20 minutes every 2 hours). When the patient returns to work, the following restrictions apply until 10/17/11. After 10/17/2011, slowly advance walking and standing as tolerated. Should be without restriction 10/24/2011, if not should be re-evaluated. Please contact me for questions or concerns. Sincerely, Quinones PA-C Source: [facility] RWHXTRANSXRTFSYS Document Id: [id number] Electronically signed by Conversion, [facility] Inner Tube Tuber Machine Operator [id number] at 09/17/2016 6:26 PM CDT documented in this encounter Plan of Treatment Not on filedocumented as of this encounter Visit Diagnoses Not on filedocumented in this encounter Additional Health Concerns Assessment Noted Time PHQ-9 Depression Total Score: 3 09/30/2011 11:29 AM CD T documented as of this encounter
--- OUTSIDE RECORDS SUMMARY | 2022-03-16 15:09 | XMS_ITS | Encounter Summary ---
:1980 Author Organization [facility] Address [address] [place] [address] Care Team Providers Name Role Phone Unavailable Primary Care Provider Unavailable Encounter Details Date Type Department Care Team Description 12/27/2011 Hospital Encounter HX NO MAPPING Augusto Fernandez, P .A.-C. Social History Tobacco Use Types Packs/Day Years [...] More than 4 times per year 11/09/2020 [employer]ec[employer] services? Do you belong to any clubs [...] documented as of this encounter Progress Notes Augusto Fernandez - 12/27/2011 12:15 PM CDT [id number] Has had a cold for 3 days and then a left earache. PHYSICAL EXAM: No fever. Throat: Normal. Neck: Negative. Both tympanic membranes are bulging and red, left worse than right. Lungs: Clear. Heart tones are normal. Augmentin causes diarrhea, but no allergic reaction. She wants a shot. She received Rocephin 1000 IM without complication. Also started on amoxicillin 1000 b.i.d. for 10 days. She was advised that the left eardrum was not ruptured, but will take maybe a month before she hears normally and if not hearing normally at that point in time recheck with the clinic or PCP. Recheck sooner p.r.n. any worsen. ASSESSMENT: Bilateral otitis media. Augusto Fernandez PA-C CDM/mp Source: [facility] BOWERHXTRANSXRTFSYS Document Id: [id number] documented in this encounter Plan of Treatment Not on filedocumented as of this encounter Visit Diagnoses Not on filedocumented in this encounter
--- OUTSIDE RECORDS SUMMARY | 2022-03-16 15:09 | XMS_ITS | Encounter Summary ---
:1980 Author Organization [facility] Address [address] [place] [address] Care Team Providers Name Role Phone Unavailable Primary Care Provider Unavailable Encounter Details Date Type Department Care Team Description 04/15/2012 Hospital Encounter [facility] ED Angel Lyon M.D. [address] [place], [place] [address] (Wo rk) Social History [...] Sign Reading Time Taken Comments Blood Pressure 132/92 04/15/2012 6:55 PM [facility] Pulse 92 04/15/2012 6:55 PM [facility] Temperature - - Respiratory Rate 18 04/15/2012 6:55 PM [facility] Oxygen Saturation - - Inhaled Oxygen Concentration - - Weight - - Height 157.4 cm (5' 1.97) 04/15/2012 6:55 PM [facility] Body Mass Index - - documented in this encounter Discharge Summaries Luis Mccarthy R.N. - 04/15/2012 7:50 PM CST ED Discharge Instructions [address] [address] Name: CARTER MENSAH Date of : 1980 12:00 AM Visit Date: 04/15/2012 6:42 PM [facility] Number: [id number] Address: [address] [place] [phone] Primary Care Provider: ANDREW VERA DNP, COMPUTER PROJECT MANAGER IMPORTANT: [facility] in [place] would like to thank you for allowing us to assist you with your healthcare needs. The following includes patient education materials and informationregarding your injury/illness. Chief Complaint: headache Follow-Up Instructions: With: Address: When: ANDREW VERA [address] [place] [id number] Business (1) Within As Needed Comments: Patient Education Materials: [id number] MIGRAINE HEADACHE Migraine headaches are related to [...] feel much better when you wake up. You were treated with TORADOL and VISTARIL so you may drive home. Rest and drink plenty of fluids. 2) Migraine headaches may improve with an [...] ATTENTION if any of the following occur: -- Your head pain gets worse, or does not improve within 24 hours -- Repeated vomiting (cant keep liquids down) -- Sinus or ear or throat pain (not already reported) -- Fever over 100.0?? F (37.8?? C) -- Stiff neck -- Extreme drowsiness, confusion or fainting -- Dizziness, vertigo (dizziness with spinning sensation) -- Weakness of an arm or leg or one side of the face -- Difficulty with speech or vision ?? [id number] [employer], [address] [place] [address], [place] [address]. All rights reserved. This information is not intended as a substitute for professional medical care. Always follow your healthcare professional's instructions. ED Tests and Procedures: Order Status Discharge Prescriptions & Home Medications: Medication/Strength Dose Route Frequency Indications/Special Instructions/Comments *varenicline (Chantix Starter Pack 0.5 mg-1 mg oral tablet) See special instructions Oral as directed for 28 Days 0.5mg daily on Days 1-3, 0.5mg 2xDay on Days 4-7, then 1mg 2xDay (Insurance Billing Code 305.1) ibuprofen (ibuprofen 200 mg oral tablet) 800 mg Oral as needed as needed for headache DO NOT take onthe same day with naproxen. topiramate (Topamax 50 mg oral tablet) See Instructions Take TWO in the morning and one at night fluticasone nasal (Flonase 50 mcg/inh nasal spray) 2 spray(s) Nasal two times a day as needed for Nasal congestion *norgestimate-ethinyl estradiol (Sprintec 0.25 mg-35 mcg oral tablet) 1 tab(s) Oral once a day starton the first Monday after menstruation naproxen (naproxen) Oral Pain DO NOT take [...] ride home with a responsible republican. I, CARTER MENSAH , or responsible republican have received this information and my questions have been answered. I have discussed any challenges I see with this plan with the nurse or physician. Patient Signature or Responsible Green Party/Relationship Date Time Provider Signature Date Time Source: [employer] POWERCHART Document Id: [id number] [facility] Luis Mccarthy R.N. - 04/15/2012 7:50 PM CST ED Depart Summary [facility] Clinical Discharge Summary PERSON INFORMATION Name CARTER MENSAH Age 31 Years 1980 12:00 AM Sex Female Language Gibraltarian PCP ANDREW VERA DNP, COMPUTER PROJECT MANAGER Marital Status Single N [id number] Visit Id Visit Reason headache Specialty Enc Type Emergency Med Service Emergency Medicine Referred by Track Group [facility] ED Discharge 04/15/2012 7:50 PM Tracking Id [id number] Checkout 04/15/2012 7:50 PM Checkin 04/15/2012 6:42 PM Acuity Dispo Type * Discharged to Home or Self Care Arrival 04/15/2012 6:42 PM Reg Status LOS 000 01:08 Address: [address] [place] [phone] Comment: PROVIDER INFORMATION Provider Role Provider Contact Time LUIS MCCARTHY ED Nurse 04/15/12 18:43 DIAGNOSIS MEDRANO - Headache Comment: PATIENT EDUCATION INFORMATION Instructions: HEADACHE, Migraine (Classical) Follow up: With: Address: When: ANDREW VERA [address] [place] [id number] [employer] () Within As Needed Comments: Source: [employer] Document Id: [id number] [facility] documented in this encounter Nursing Notes Luis Mccarthy R.N. - 04/15/2012 7:43 PM CST ED Pain Assessment ED Pain Assessment Entered On: 04/15/2012 19:44 [facility] Performed On: 04/15/2012 19:43 [facility] by LUIS MCCARTHY Pain Assessment Pain Symptoms : Yes LUIS MCCARTHY - 04/15/2012 19:43 [facility] Pain Pain Assessment Grid Pain 1 Location : Head Laterality : Bilateral Intensity : 1 Time Pattern : Acute LUIS MCCARTHY - 04/15/2012 19:43 [facility] Source: [employer] Document Id: [id number] [facility] Luis Mccarthy R.N. - 04/15/2012 6:52 PM CST ED Primary Assessment ED Primary Assessment Entered On: 04/15/2012 18:53 [facility] Performed On: 04/15/2012 18:52 [facility] by LUIS MCCARTHY Reason For Visit Problems(Active) Abnormal Pap Name of Problem: Abnormal Pap ; Onset Date: 10/21/2009 ; Recorder: JENNIFER LIN LPN; Confirmation: Confirmed ; Classification: Nursing ; Code: 1231 ; Contributor System: PowerChart ; Last Updated: 08/16/2010 9:50 CDT ; Life Cycle Date: 08/16/2010 ; Life Cycle Status: Active ; Responsible Provider: JENNIFER LIN LPN; Vocabulary: ICD-9-CM Acne vulgaris Name of Problem: Acne vulgaris ; Recorder: ALLEN BEDOYA RN; Confirmation: Confirmed ;Classification: Nursing ; Code: 1231 ; Contributor System: PowerChart ; Last Updated: 12/17/2010 11:55 CDT ; Life Cycle Date: 12/17/2010 ; Life Cycle Status: Active ; Responsible Provider: ALLEN BEDOYA RN; Vocabulary: ICD-9-CM ; Comments: 12/17/2010 11:55 - ALLEN BEDOYA RN Date of onset unknown Allergic rhinitis, unspecified Name of Problem: Allergic rhinitis, unspecified ; Onset Date: 08/22/2011 ; Recorder: JANAY WAYNE RN, CNP; Confirmation: Confirmed ; Classification: Medical ; Code: 1231 ; Last Updated: 08/22/2011 13:54 CDT ; Life Cycle Status: Active ; Responsible Provider: JANAY WAYNE RN, CNP; Vocabulary: ICD-9-CM Anxiety State, Unspecified Name of Problem: Anxiety State, Unspecified ; Onset Date: 08/22/2011 ; Recorder: JANAY WAYNE RN, CNP; Confirmation: Confirmed ; Classification: Medical ; Code: 1231 ; LastUpdated: 08/22/2011 13:53 CDT ; Life Cycle Status: Active ; Responsible Provider: JANAY WAYNE RN,LANIE; Vocabulary: ICD-9-CM Migraine headache Name of Problem: Migraine headache ; Onset Date: 04/17/1989 ; Recorder: SANDRINE FULLER RN; Confirmation: Confirmed ; Classification: Medical ; Code: 1231 ; Contributor System: PowerChart ; Last Updated: 04/12/2011 17:14 [facility] ; Life Cycle Date: 06/10/2010 ; Life Cycle Status: Active ; Responsible Provider: SANDRINE FULLER RN; Vocabulary: ICD-9-CM ; Comments: 06/10/2010 16:12 - SANDRINE FULLER RN no known date of onset Tobacco Use Disorder Name of Problem: Tobacco Use Disorder ; Onset Date: 08/22/2011 ; Recorder: JANAY WAYNE RN, BUZZSAW OPERATOR HELPER; Confirmation: Confirmed ; Classification: Medical ; Code: 1231 ; Last Updated: 08/22/2011 13:54 CDT ; Life Cycle Status: Active ; Responsible Provider: JANAY WAYNE RN, LANIE; Vocabulary: ICD-9-CM Diagnoses(Active) MEDRANO - Headache Date: 04/15/2012 ; Diagnosis Type: Reason For Visit ; Confirmation: Complaint of ; Clinical Dx: MEDRANO - Headache ; Classification: Medical ; Clinical Service: Non-Specified ; Code: PNED ; Probability: 0 ; Diagnosis Code: [id number] Triage Chief Complaint Description : see triage assessment Mode of Arrival ED : Private vehicle, Ambulatory Track : Medical Languages : Gibraltarian LUIS MCCARTHY 04/15/2012 18:52 [facility] Pain Assessment Pain Symptoms : Yes LUIS MCCARTHY 04/15/2012 18:52 [facility] Allergy Allergies (Active) Augmentin XR Estimated Onset Date: Unspecified ; Reactions: GI distress ; Created By: MYRNA EDMONDS MD; Reaction Status: Active ; Category: Drug ; Substance: Augmentin XR ; Type: Intolerance ; Severity: Moderate ; Updated By: MYRNA EDMONDS MD; Source: Patient ; Reviewed Date: 03/20/2012 13:27 [facility] Cipro Estimated Onset Date: Unspecified ; Created By: YASMANY CAVANAUGH RN; Reaction Status: Active ; Category: Drug ; Substance: Cipro ; Type: Allergy ; Updated By: YASMANY CAVANAUGH RN; Reviewed Date: 03/20/2012 13:27 [facility]IST Silicone Estimated Onset Date: Unspecified ; Created By: JENNIFER FRANCIS RN; Reaction Status: Active ; Category: Drug ; Substance: Silicone ; Type: Sensitivity ; Updated By: JENNIFER FRANCIS RN; Reviewed Date: 03/20/2012 13:27 [facility] Respiratory Airway : Patent Respirations : Unlabored Respiratory Pattern : Regular LUIS MCCARTHY 04/15/2012 18:52 [facility] Cardiovascular Heart Rhythm : Regular Skin Color : Normal for ethnicity Skin Description : Dry Skin Temperature : Warm LUIS MCCARTHY 04/15/2012 18:52 [facility] Neurological Last Well Time Known : Not applicable Level of Consciousness : Alert Orientation : Oriented x 3 Characteristics of Speech : Appropriate for age Neuro Patient Stated Symptoms : Headache LUIS MCCARTHY - 04/15/2012 18:52 [facility] SPECIALIST ED Psychosocial Affect/Behavior : Calm, Cooperative Domestic Abuse Concerns : None LUIS MCCARTHY 04/15/2012 18:52 [facility] Gastrointestinal Nutrition ED : Adequate LUIS MCCARTHY - 04/15/2012 18:52 [facility] Musculoskeletal Fall Prevention Education Provided : NA LUIS MCCARTHY - 04/15/2012 18:52 [facility] Social Habits Tobacco Use/Currently Using : Yes Exposure to Tobacco Smoke : Patient smokes Smoking Status : Current every day smoker LUIS MCCARTHY - 04/15/2012 18:52 [facility] Tobacco Use Grid Type : Cigarettes Cigarette Use Packs/Day : 0.5 LUIS MCCARTHY - 04/15/2012 18:52 [facility] Alcohol Use Grid Alcohol Use : Other: occasional No LUIS MCCARTHY - 04/15/2012 18:52 [facility] SPECIALIST LUIS MCCARTHY - 04/15/2012 18:52 [facility] SPECIALIST Recreational Drug Use Grid Drug Use : None LUIS MCCARTHY - 04/15/2012 18:52 [facility] SPECIALIST Source: [facility] ITDatabase Document Id: [id number] [facility] documented in this encounter ED Notes Rosy Lyon M.D. - 04/15/2012 7:55 PM CST headache Patient: CARTER MENSAH Age: 31 years Sex: Female : 1980 Author: ROSY LYON MD Attachments: None Associated Diagnosis: Migraine headache 346.90 Basic Information Time seen: Date 04/15/2012. History source: Patient. Arrival mode: Private vehicle, walking. History limitation: None. Additional information: Chief Complaint from Nursing Triage Note : Chief Complaint Description. 04/15/2012 18:43 [facility] Chief Complaint Description Patient comes to the ED complaining of a migraine that started yesterday morning when she woke up. Patient admits to taking naproxen, ibprofen, and zofran. History of Present Illness Typical migraine started yesterday morning. She used ibuprofen yesterday, naproxen today, along withattempts at sleep without improvement. Large emesis 90 minutes before arrival inspite of using zofran. States she is trying to quit smoking, will start Chantix on 04/19/12, and also has been cutting backon caffeine. She thinks these things might be triggering this headache. She had one caffeinated sodatoday. On migraine preventative, topamax. The course/duration of symptoms is constant. Location: Frontal retro-orbital. Radiating pain: none. The character of symptoms is achy. The degree at onset was moderate. The degree at maximum was severe. The degree at present is severe. There are exacerbating factors including light and noise. There are relieving factors including light avoidance, noise avoidance and rest. Risk factors consist of none. Prior episodes: frequent. Preceding symptoms: none. Review of Systems Constitutional symptoms: No fever. Skin symptoms: No rash. Eye symptoms: Vision unchanged. Neurologic symptoms: No altered level of consciousness, no numbness, no tingling or no weakness. Psychiatric symptoms: Sleeping problems. Additional review of systems information: All other systems reviewed and otherwise negative. Health Status Allergies: . Allergic Reactions (Selected) Severity Not Documented Cipro- No reactions were documented. Nonallergic Reactions (Selected) Moderate Augmentin XR- Gi distress. Severity Not Documented Silicone- No reactions were documented. Medications: (Selected). Inpatient Medications Completed Vistaril IM: 50 mg, IM, Once ketorolac: 60 mg, IM, Once Prescriptions Ordered Chantix Starter Pack 0.5 mg-1 mg oral tablet: See special instructions, PO, As Directed, 0.5mg dailyon Days 1-3, 0.5mg 2xDay on Days 4-7, then 1mg 2xDay (Insurance Billing Code 305.1), 1 kit(s) Flonase 50 mcg/inh nasal spray: 2 spray(s), Nasal, 2xDay, 16 gm, PRN: Nasal congestion Sprintec 0.25 mg-35 mcg oral tablet: 1 tab(s), PO, Daily, start on the first Monday after menstruation, 84 tab(s) Topamax 50 mg oral tablet: See Instructions, Take TWO in the morning and one at night ibuprofen 200 mg oral tablet: 800 mg, 4 tab(s), PO, PRN, DO NOT take on the same day with naproxen.,50 tab(s), PRN: headache Documented Medications Ordered naproxen: PO, DO NOT take on the same day you take ibuprofen., PRN: Pain Discontinued Topamax 50 mg oral tablet: 50 mg, 1 tab(s), PO, Daily Immunizations: Include Immunizations. Immunizations reviewed. Past Medical/ Family/ Social History Medical history: . Active Migraine headache (346.90): Onset in 1989 at 8 years. Comments: 06/10/2010 [facility] 16:12 [facility] - SANDRINE FULLER RN no known date of onset Resolved Sinusitis (473.9): Onset in 2000 at 19 years. Resolved. Surgical history: . Mantoux test ([id number]) in 2010 at 29 Years. Endometrial sampling (biopsy) with or without endocervical sampling (biopsy), without cervical dilation, any method (separate procedure) (76919) in 2009 at 29 Years. Nasal sinus ([id number]) in 2000 at 20 Years. Comments: 06/10/2010 16:11 - SANDRINE FULLER RN sinus surgeries Tonsillectomy with adenoidectomy ([id number]) in 1994 at 13 Years. Family history: . Liver Mother Comments: 08/16/2010 09:57 - JENNIFER LIN LPN Liver failure Diabetes mellitus Mother Asthma Sister Hypertension Father MEDRANO - Headache Father Social history: Reviewed as documented in chart. Problem list: . All Problems Acne vulgaris / 706.1 / Confirmed Abnormal Pap / 795.00 / Confirmed Anxiety State, Unspecified / 300.00 / Confirmed Allergic rhinitis, unspecified / 477.9 / Confirmed Tobacco Use Disorder / 305.1 / Confirmed Migraine headache / 346.90 / Confirmed Resolved: Sinusitis / 473.9 Canceled: Examination or Test, Positive Result / V72.42 Physical Examination Vital Signs Vital Signs. 04/15/2012 18:55 [facility] Temperature Core 37.1 C Peripheral Pulse Rate 92 /min Respiratory Rate 18 /min SpO2 97 % Systolic Blood Pressure 132 mmHg Diastolic Blood Pressure 92 mmHg >HHI General: Alert, mild distress and Appears exhausted, dark circles under eyes.. Skin: Warm and dry. Head: Normocephalic. Neck: Supple. Eye: Pupils are equal, round and reactive to light and normal conjunctiva. Ears, nose, mouth and throat: Tympanic membranes clear, oral mucosa moist and no pharyngeal erythemaor exudate. Cardiovascular: Regular rate and rhythm. Respiratory: Lungs are clear to auscultation. Gastrointestinal: Soft and Nontender. Back: Normal alignment. Neurological: Alert and oriented to person, place, time, and situation and No focal neurological deficit observed. Lymphatics: No lymphadenopathy. Psychiatric: Cooperative. Medical Decision Making Differential Diagnosis:Migraine. OrdersTORADOL 60 mg IM and VISTARIL 50 mg IM. Impression and Plan Diagnosis Migraine headache 346.90 (Discharge, Emergency medicine, Medical) Plan Condition: Improved, Stable. Disposition: Discharged: to home. Patient was given the following educational materials: HEADACHE, Migraine (Classical). Follow up with: ANDREW Tovar As Needed. Counseled: Patient, Regarding diagnosis, Regarding treatment plan, Regarding prescription, Patient indicated understanding of instructions. Notes: Home to rest. Push fluids. Contine TOPAMAX`, may need to increase to 100 mg BID if headaches remain frequent.. Electronically Signed By: ROSY LYON MD On: 04/15/2012 08:07 PM Modified by and Electronically Signed by: ROSY LYON MD On: 04/15/2012 08:01 PM Source: [facility] 51TalkCHART Document Id: [id number]} [facility] Luis Mccarthy, R.N. - 04/15/2012 7:46 PM CST ED Disposition Summary ED Disposition Summary Entered On: 04/15/2012 19:46 [facility] Performed On: 04/15/2012 19:46 [facility] SPECIAL[facility] by LUIS MCCARTHY ED Disposition Summary Accompanied By : Alone Mode of Discharge : Ambulatory Transportation : Private vehicle Printed Discharge Instructions Given to Patient : Yes Patient Status at Discharge from ED : Improved LUIS MCCARTHY - 04/15/2012 19:46 [facility] Source: [facility] 51TalkCHART Document Id: [id number] [facility] Luis Mccarthy R.N. - 04/15/2012 6:43 PM CST ED Triage Assessment ED Triage Assessment Entered On: 04/15/2012 18:47 [facility] Performed On: 04/15/2012 18:43 [facility] by LUIS MCCARTHY Reason For Visit Problems(Active) Abnormal Pap Name of Problem: Abnormal Pap ; Onset Date: 10/21/2009 ; Recorder: JENNIFER LIN LPN; Confirmation: Confirmed ; Classification: Nursing ; Code: 1231 ; Contributor System: [employer] ; Last Updated: 08/16/2010 9:50 CDT ; Life Cycle Date: 08/16/2010 ; Life Cycle Status: Active ; Responsible Provider: JENNIFER LIN LPN; Vocabulary: ICD-9-CM Acne vulgaris Name of Problem: Acne vulgaris ; Recorder: ALLEN BEDOYA RN; Confirmation: Confirmed ;Classification: Nursing ; Code: 1231 ; Contributor System: [employer] (acquired by [employer] in 2014)Chart ; Last Updated: 12/17/2010 11:55 CDT ; Life Cycle Date: 12/17/2010 ; Life Cycle Status: Active ; Responsible Provider: ALLEN BEDOYA RN; Vocabulary: ICD-9-CM ; Comments: 12/17/2010 11:55 - ALLEN BEDOYA RN Date of onset unknown Allergic rhinitis, unspecified Name of Problem: Allergic rhinitis, unspecified ; Onset Date: 08/22/2011 ; Recorder: JANAY WAYNE RN, CNP; Confirmation: Confirmed ; Classification: Medical ; Code: 1231 ; Last Updated: 08/22/2011 13:54 CDT ; Life Cycle Status: Active ; Responsible Provider: JANAY WAYNE RN, CNP; Vocabulary: ICD-9-CM Anxiety State, Unspecified Name of Problem: Anxiety State, Unspecified ; Onset Date: 08/22/2011 ; Recorder: JANAY WAYNE RN, CNP; Confirmation: Confirmed ; Classification: Medical ; Code: 1231 ; LastUpdated: 08/22/2011 13:53 CDT ; Life Cycle Status: Active ; Responsible Provider: JANAY WAYNE RN,LANIE; Vocabulary: ICD-9-CM Migraine headache Name of Problem: Migraine headache ; Onset Date: 04/17/1989 ; Recorder: SANDRINE FULLER RN; Confirmation: Confirmed ; Classification: Medical ; Code: 1231 ; Contributor System: [employer] ; Last Updated: 04/12/2011 17:14 [facility] ; Life Cycle Date: 06/10/2010 ; Life Cycle Status: Active ; Responsible Provider: SANDRINE FULLER RN; Vocabulary: ICD-9-CM ; Comments: 06/10/2010 16:12 - SANDRINE FULLER RN no known date of onset Tobacco Use Disorder Name of Problem: Tobacco Use Disorder ; Onset Date: 08/22/2011 ; Recorder: JANAY WAYNE RN, CNP; Confirmation: Confirmed ; Classification: Medical ; Code: 1231 ; Last Updated: 08/22/2011 13:54 CDT ; Life Cycle Status: Active ; Responsible Provider: JANAY WAYNE RN, CNP; Vocabulary: ICD-9-CM Diagnoses(Active) MEDRANO - Headache Date: 04/15/2012 ; Diagnosis Type: Reason For Visit ; Confirmation: Complaint of ; Clinical Dx: MEDRANO - Headache ; Classification: Medical ; Clinical Service: Non-Specified ; Code: PNED ; Probability: 0 ; Diagnosis Code: [id number] Triage Chief Complaint Description : Patient comes to the ED complaining of a migraine that started yesterday morning when she woke up. Patient admits to taking naproxen, ibprofen, and zofran. Information Given By : Patient Accompanied By : Alone Mode of Arrival ED : Private vehicle, Ambulatory Track : Medical Languages : Gibraltarian HUGO MCCARTHY04/15/2012 18:43 [facility] Pain Assessment Pain Symptoms : Yes HUGO MCCARTHY04/15/2012 18:43 [facility] Pain Pain Assessment Grid Pain 1 Location : Head Laterality : Bilateral Intensity : 5 Time Pattern : Acute Onset : Gradual Quality : Aching, Throbbing Aggravating Factors : Light LUIS MCCARTHY 04/15/2012 18:43 [facility] ED Physician Notification Time ED Physician Notification Time : 04/15/2012 18:47 [facility] HUGO MCCARTHY04/15/2012 18:43 [facility]IST MORALES MORALES Level 1 : No MORALES Level 2 : No HUGO MCCARTHY04/15/2012 18:43 [facility]IST DCP GENERIC CODE Tracking Group : [facility] ED HUGO MCCARTHY04/15/2012 18:43 [facility] Allergy Allergies (Active) Augmentin XR Estimated Onset Date: Unspecified ; Reactions: GI distress ; Created By: MYRNA EDMONDS MD; Reaction Status: Active ; Category: Drug ; Substance: Augmentin XR ; Type: Intolerance ; Severity: Moderate ; Updated By: MYRNA EDMONDS MD; Source: Patient ; Reviewed Date: 03/20/2012 13:27 [facility] Cipro Estimated Onset Date: Unspecified ; Created By: YASMANY CAVANAUGH RN; Reaction Status: Active ; Category: Drug ; Substance: Cipro ; Type: Allergy ; Updated By: YASMANY CAVANAUGH RN; Reviewed Date: 03/20/2012 13:27 [facility] Silicone Estimated Onset Date: Unspecified ; Created By: JENNIFER FRANCIS RN; Reaction Status: Active ; Category: Drug ; Substance: Silicone ; Type: Sensitivity ; Updated By: JENNIFER FRANCIS RN; Reviewed Date: 03/20/2012 13:27 [facility] Immunizations Immunizations Current : Yes Influenza : This year LUIS MCCATRHY - 04/15/2012 18:43 [facility] Source: [facility] ITDatabase Document Id: [id number] [facility] documented in this encounter Miscellaneous Notes Miscellaneous - Luis Mccarthy R.N. - 04/15/2012 7:50 PM CST Facility Charge Ticket Facility Charge Ticket Entered On: 04/15/2012 19:49 [facility] Performed On: 04/15/2012 19:50 [facility] by LUIS MCCARTHY Facility Charge TVL Level for Facility Charge Ticket : Level 4 Mode of Arrival ED : Private vehicle, Ambulatory [facility] Mode of Arrival Interpreted : Standard [facility] Process Management : None [facility] Order Management : None 30 Minutes Critical Care : No [facility] Nursing Assessment : Triage and 1-2 nursing assessments [facility] Disposition : Discharge [facility] Total Points with Diagnosis Control : 7 [facility]x Visit Level : 30215 Level 3 LUIS MCCARTHY - 04/15/2012 19:49 [facility] Chief Complaint 8.50.02 Reason For Visit Category : Neurology ED Chief Complaint Neurology 8.5 : Headache TVL Calc : 12 TVL for Facility Charge Ticket Dx : Level 4 LUIS MCCARTHY - 04/15/2012 19:49 COMMUNITY HEALTH SPECIALIST Source: [employer] Document Id: [id number] UNITY HEALTH SPECIALIST Miscellaneous - Luis Mccarthy R.N. - 04/15/2012 7:43 PM CST Valuables/Belongings Valuables/Belongings Entered On: 04/15/2012 19:43 COMMUNITY HEALTH SPECIALIST Performed On: 04/15/2012 19:43 COMMUNITY HEALTH SPECIALIST by LUIS MCCARTHY Valuables/Dwayne Home Medication Disposition : None brought in with patient LUIS MCCARTHY - 04/15/2012 19:43 COMMUNITY HEALTH SPECIALIST Source: [employer] Document Id: [id number] UNITY HEALTH SPECIALIST documented in this encounter Plan of Treatment Not on filedocumented as of this encounter Visit Diagnoses Not on filedocumented in this encounter
--- OUTSIDE RECORDS SUMMARY | 2022-03-16 15:09 | XMS_ITS | Encounter Summary ---
:1980 Author Organization [facility] Address [address] [place] [address] Care Team Providers Name Role Phone Unavailable Primary Care Provider Unavailable Encounter Details Date Type Department Care Team Description 01/09/2012 Hospital Encounter HX [facility] Andrew Vera, LO, C.N.P., D. N.P. [address] [place] [address] (Wo rk) Social History Tobacco [...] Sign Reading Time Taken Comments Blood Pressure 96/52 01/09/2012 10:53 AM CDT Pulse 88 01/09/2012 10:53 AM CDT Temperature - - Respiratory Rate 18 01/09/2012 10:53 AM CDT Oxygen Saturation - - Inhaled Oxygen Concentration - - Weight 80.7 kg (177 lb 14.6 oz) 01/09/2012 10:53 AM CDT Height - - Body Mass Index 31.92 01/04/2012 5:15 PM CDT documented in this encounter Progress Notes Andrew Vera, Tristin.N.P., C.N.P. - 01/09/2012 10:51 AM CDT [id number] CHIEF COMPLAINT/REASON FOR VISIT Nasal congestion. HISTORY OF PRESENT ILLNESS The patient is a 31-year-old female that presents to the clinic today with a chief complaint of nasal congestion. Initially the patient was seen in our emergency room setting on 12/24/2011 secondary topharyngitis. She then had been seen in the emergency room on 12/27/2011 with a chief complaint of bilateral ear pain and seen in [facility]. At that time, she was given Rocephin intramuscular and started on amoxicillin. On 12/31/2011, she then presented to the clinic with continued ear pain and changed from amoxicillin to Cefzil. She completed the Cefzil on 01/07/2012 in which she has also been having increased nasal congestion while on the Cefzil. She has now been on Flonase nasal spray two sprays in each nostril daily for the past approximate four days duration. Also at this time I will note that she has also been evaluated by ENT for incision and drainage of left tympanic membrane secondaryto a significant effusion. She has an appointment in two days duration for myringotomy placement. She indicates that her nasal secretions are a dark green in color. She otherwise indicates that she is not having any further concerns or issues. She denies shortness of breath but does have a cough and denies any known exposure to any kind of viral or bacterial infections. PAST MEDICAL/SURGICAL HISTORY Reviewed. Please see chart. FAMILY HISTORY Reviewed. Please see chart. CURRENT MEDICATIONS Reviewed. Please see chart. ALLERGIES Reviewed. Please see chart. PHYSICAL EXAMINATION OBJECTIVE: Patient is alert/oriented x 3. HEAD: Normocephalic/atraumatic. PUPILS: GLEN. OROPHARYNX: [place] and moist. TMs: Bilateral TMs are clear, bony landmarks noted and WNL. NARES: Bilateral nares are significantly erythematous and edematous. No secretions are noted. NECK: No anterior/posterior lymphadenopathy noted. HEART: Regular S1, S2, no murmurs, rubs or gallops noted. LUNGS: Clear to auscultation, no prolonged expiratory phases, wheezing, rales or rhonchi noted. SKIN: Without unusual rashes or suspicious lesions IMPRESSION/REPORT/PLAN Sinusitis. PLAN: Discussed the findings with the patient. Given her history of smoking and also the duration ofher symptoms, I did indicate this could be the very latent stages of a viral infection, though giventhe duration of time that she has currently been ill, I did opt to switch her from previously being on amoxicillin, Cefzil, she is now to start Levaquin 500 mg tablets to take one tablet by mouth dailyfor 14 days, #14 with no refills authorized. Currently she is on a total of approximately 21 days ofillness. We will also plan on having her follow up with ears, nose and throat in two days duration for myringotomy. Patient was also excused from work for today's date. Patient was also given a prescription for guaifenesin with codeine to take 5 to 10 mL by mouth every 4 to 6 hours as needed for cough, number 120 mL with no refills authorized. Patient is advised to follow up if needed. Patient statedshe understands this plan as she otherwise denied having any further questions or concerns. Patient ambulated out of the clinic in no acute distress. PATIENT EDUCATION: Ready to learn No apparent learning barriers were identified Learning preferences include listening Explained diagnosis and treatment plan Patient/Child/Caregiver expressed understanding of the content Gunnar Jacobs.P./Jez.P/ls Electronically Signed By: ANDREW VERA DNP, FNP On: 01/10/2012 12:00 PM Source: [facility] MHSDOLBEYNONMINDYSYS Document Id: [id number] documented in this encounter Miscellaneous Notes Miscellaneous - Andrew Vera, Tristin.N.Luis, C.N.P. - 01/09/2012 11:40 AM CDT Ambulatory Patient Summary [address] [address] Visit Information Name: CARTER MENSAH Current Date: 01/09/2012 11:40:09 Physicians Attending Provider: ANDREW VERA DNP, FNP [...] medications. Medication/Strength Dose Route Frequency Indications/Special Instructions/Comments codeine-guaifenesin (codeine-guaifenesin 10 mg-100 mg/5 ml oral syrup) 5-10 mL Oral every 4 hours asneeded for cough levofloxacin (Levaquin 500 mg oral tablet) 500 mg Oral once a day for 14 Days fluticasone nasal (Flonase 50 mcg/inh nasal spray) 2 spray(s) Nasal two times a day as needed for Nasal congestion tramadol (tramadol 50 mg oral tablet) 50 mg Oral every 6 hours as needed for Pain topiramate (Topamax 50 mg oral tablet) 50 mg Oral two times a day take in AM with 100mg tab to [id number] & take 1 tab in PM ( 50mg dose) topiramate (Topamax 100 mg oral tablet) 100 mg Oral once a day norgestimate-ethinyl estradiol (Sprintec 0.25 mg-35 mcg oral tablet) 1 tab(s) Oral once a day start on the first Monday after menstruation naproxen (naproxen) Oral Pain Attention: If you [...] Upcoming Appointments Date Time Location Reason Provider 01/11/2012 17:30 [facility] f/u 01/03 appt Shahram THOMAS, Raquel Larsen Your Goals/Additional instructions: [facility] Document Id: [id number] Miscellaneous - Andrew Vera, Tristin.N.P., C.N.P. - 01/09/2012 11:40 AM CDT Ambulatory Depart Summary [address] [address] Visit Information Name: RODRICK CARTERDERRICK BUSH Visit Date: 01/09/2012 11:40:08 Attending Provider: ANDREW VERA DNP, FNP Primary [...] medications. Medication/Strength Dose Route Frequency Indications/Special Instructions/Comments codeine-guaifenesin (codeine-guaifenesin 10 mg-100 mg/5 ml oral syrup) 5-10 mL Oral every 4 hours asneeded for cough levofloxacin (Levaquin 500 mg oral tablet) 500 mg Oral once a day for 14 Days fluticasone nasal (Flonase 50 mcg/inh nasal spray) 2 spray(s) Nasal two times a day as needed for Nasal congestion tramadol (tramadol 50 mg oral tablet) 50 mg Oral every 6 hours as needed for Pain topiramate (Topamax 50 mg oral tablet) 50 mg Oral two times a day take in AM with 100mg tab to [id number] & take 1 tab in PM ( 50mg dose) topiramate (Topamax 100 mg oral tablet) 100 mg Oral once a day norgestimate-ethinyl estradiol (Sprintec 0.25 mg-35 mcg oral tablet) 1 tab(s) Oral once a day start on the first Monday after menstruation naproxen (naproxen) Oral Pain Attention: If you have any medications at home that are not on this list, DO NOT take them until youcontact your provider for clarification. Additional Information: Source: [facility] POWERCHART Document Id: [id number] Miscellaneous - William Mishra L.P.N. - 01/09/2012 10:53 AM CDT Adult Keysmith Intake/History Adult Keysmith Intake/History Entered On: 01/09/2012 10:57 CDT Performed On: 01/09/2012 10:53 CDT by WILLIAM MISHRA LPN Intake Chief Complaint : Blowing ruby green snot, head congestion, cough, finished antibiotic Temperature Core : 36.4C(Converted to: 97.5DegF) (LOW) Peripheral Pulse Rate : 88/min Respiratory Rate : 18/min Heart Rhythm : Regular Systolic Blood Pressure : 96mmHg Diastolic Blood Pressure : 52mmHg NIBP Mean : 67mmHg BP Location : Right upper extremity Blood Pressure Cuff Size : Regular SpO2 : 98% Oxygen Therapy : Room air Actual Weight : 80.7kg(Converted to: 177lb 15oz) Weight Source : Standing scale Dosing Weight Clinic : 80.70kg WILLIAM MISHRA LPN - 01/09/2012 10:53 CDT Subjective Pain Symptoms : No WILLIAM MISHRA Parvez [facility] - 01/09/2012 10:53 CDT Dependent Habits Tobacco Use/Currently Using : Yes Tobacco Use/Advised to Quit : Yes Exposure to Tobacco Smoke : Patient smokes Smoking Status : Current every day smoker WILLIAM MISHRA Parvez [facility] 01/09/2012 10:53 CDT Tobacco Use Grid Type : Cigarettes Cigarette Use Packs/Day : 1.0 MISHRAWILLIAM [facility] 01/09/2012 10:53 CDT Alcohol Use : Yes DELIA WILLIAM Hannon [facility] 01/09/2012 10:53 CDT Caffeine Use Grid Caffeine Use : Current Type : Soft drinks Frequency : Daily MISHRAWILLIAM [facility] 01/09/2012 10:53 CDT Recreational Drug Use Grid Drug Use : None VALDESROBYN Hannon [facility] 01/09/2012 10:53 CDT Allergy Allergies (Active) Augmentin XR Estimated [...] RN; Reviewed Date: 01/09/2012 7:38 CDT Source: [facility] SportsCHART Document Id: [id number] documented in this encounter Plan of Treatment Not on filedocumented as of this encounter Visit Diagnoses Not on filedocumented in this encounter
--- OUTSIDE RECORDS SUMMARY | 2022-03-16 15:09 | XMS_ITS | Encounter Summary ---
:1980 Author Organization [facility] Address [address] [place] [address] Care Team Providers Name Role Phone Unavailable Primary Care Provider Unavailable Encounter Details Date Type Department Care Team Description 05/30/2011 Hospital Encounter HX [facility] Zina Vera, LO, C.N.P., D.N.P. [address] [phone] (Wo rk) Social History Tobacco Use [...] Miscellaneous - Zina Vera D.N.P., C.N.P. - 05/30/2011 7:54 PM METAL CAN INSPECTOR Results Notification Document Contains Addenda Addendum by JARAD NG LPN on 31 May 2011 14:33:40 METAL CAN INSPECTOR left message with results and to call if any questions From: ZINA VERA DNP, AIR ANALYST To: JARAD NG LPN Sent: 05/30/2011 19:54:46 METAL CAN INSPECTOR ! Show up: 05/31/2011 01:54:46 [facility] Subject: Results Notification Actions: Notify patient of results Source: [facility] POWERCHART Document Id: [id number] Electronically signed by Conversion, [facility] Regrinder Operator [id number] at 09/17/2016 1:50 PM CDT documented in this encounter Plan of Treatment Not on filedocumented as of this encounter Procedures Procedure Name Priority Date/Time Associated Comments Diagnosis CREATININE WITH Routine 05/30/2011 12:55 PM Resul ts for this EGFR, S/P METAL CAN INSPECTOR procedure are i n the results section. documented in this encounter Results (ABNORMAL) Creatinine with eGFR (05/30/2011 12:55 PM METAL CAN INSPECTOR) P athologist Signature Creatinine 0.74 0.60 - POWERCHART 1.30 MGDL HXeGFR (MDRD) >60 (H) <=61 POWERCHART [id number] Comment: A GFR of <60 mL/min is indicative of chr onic kidney disease. (MDRD calculation valid on patients 18 - 70 years.) eGFR Black/ >60 MLMIN PO WERCHART Specimen (Source) Anatomical Collection Method Collection Time Re ceived Time Location / / Volume Laterality Blood 05/30/2011 12:55 PM METAL CAN INSPECTOR Zina Vera APRN, C.N.P., D.N.P. LAB BLOOD ADD- ON Performing Organization Address City/State/ZIP Code Phon e Number POWERCHART documented in this encounter Visit Diagnoses Not on filedocumented in this encounter
--- OUTSIDE RECORDS SUMMARY | 2022-03-16 15:09 | XMS_ITS | Encounter Summary ---
:1980 Author Organization [facility] Address [address] [place] [address] Care Team Providers Name Role Phone Unavailable Primary Care Provider Unavailable Encounter Details Date Type Department Care Team Description 05/10/2011 Hospital Encounter HX [facility] Andrew Vera, LO, C.N.P., D. N.P. [address] [place] [address] (Wo rk) Social History Tobacco [...] Sign Reading Time Taken Comments Blood Pressure 104/54 05/10/2011 6:01 PM TOXICS PROGRAM OFFICER Pulse 62 05/10/2011 6:01 PM TOXICS PROGRAM OFFICER Temperature - - Respiratory Rate 18 05/10/2011 6:01 PM TOXICS PROGRAM OFFICER Oxygen Saturation - - Inhaled Oxygen Concentration - - Weight - - Height - - Body Mass Index - - documented in this encounter Progress Notes Andrew Vera D.N.P., C.N.P. - 05/10/2011 12:00 AM CST [id number] CHIEF COMPLAINT/REASON FOR VISIT Contraceptive management. HISTORY OF PRESENT ILLNESS The patient is a 4-year-old female that presents to the clinic today wanting to start on Depo. She reports that currently she is a couple days into her menses cycle. She reports that she is not having any other concerns or issues and has been thinking about what to do for contraceptive management, over a period time and feels comfortable mostly with the Depo shot. She otherwise denies having any other further concerns or issues at this time. PAST MEDICAL/SURGICAL HISTORY Reviewed. Please see chart. FAMILY HISTORY Reviewed. Please see chart. CURRENT MEDICATIONS Reviewed. Please see chart. ALLERGIES Reviewed. Please see chart. PHYSICAL EXAMINATION GENERAL: The patient is an alert, well-nourished, 30-year-old female that appears to be in no acute distress HEAD: Normocephalic. Atraumatic. Remainder of further examination is deferred at this time. LABS: Urine beta HCG was noted to be negative. IMPRESSION/REPORT/PLAN Contraceptive management. PLAN: Discussed the findings at length with the patient. Patient was given her Depo shot (please see nurse's notes) in which she tolerated well and no reactions were noted. Patient will be given her Depo shot once every three months as this was discussed at length with the patient. Patient stated she understands this plan as we also discussed side effects of the medication at length as well. The patient ambulated out of the clinic in no acute distress. PATIENT EDUCATION: Ready to learn No apparent learning barriers were identified Learning preferences include listening Explained diagnosis and treatment plan Patient/Child/Caregiver expressed understanding of the content Andrew Vera D.N.P., MaluN.Luis /andre Electronically Signed By: ANDREW VERA DNP, FNP On: 05/14/2011 10:57 AM Source: [facility] Document Id: [id number] CS PROGRAM OFFICER documented in this encounter Procedure Notes Guido Merchant L.P.N. - 05/10/2011 6:47 PM CST Depo-Provera Administration Depo-Provera Administration Entered On: 05/10/2011 18:47 TOXICS PROGRAM OFFICER Performed On: 05/10/2011 18:47 TOXICS PROGRAM OFFICER by GUIDO MERCHANT LPN Depo-Provera Administration Annual Exam in the Past 12 Months : Yes Needs test : Yes Urine Test : Negative GUIDO MERCHANT LPN - 05/10/2011 18:47 TOXICS PROGRAM OFFICER Source: [facility] POWERCHART Document Id: [id number] TOXICS PROGRAM OFFICER!5 CS PROGRAM OFFICER documented in this encounter Miscellaneous Notes Miscellaneous - Andrew Vera D.N.P., C.N.P. - 05/10/2011 6:28 PM TOXICS PROGRAM OFFICER Ambulatory Patient Summary [id number] [place] [address] Visit Information Name: CARTER MENSAH Current Date: 05/10/2011 18:28:11 Primary Care Provider: ANDREW VERA DNP, FNP Your Medications Here is a list of your medications. It is important to take your medications as directed. Use a pillbox or chart to help remind you to take your medications. Please let your doctor or nurse know if you have problems taking your medications. Medication/Strength Dose Route Frequency Indications/Special Instructions/Comments ondansetron (ondansetron 4 mg oral tablet) 4 mg Oral every 8 hours as needed for Nausea/vomiting topiramate (Topamax 25 mg oral tablet) See Instructions Take one tab by mouth daily for 5 days, thentake one tab by mouth twice a day. naproxen (naproxen) Oral Pain erythromycin topical (erythromycin [...] Lipid Panel every 5 years Age 20-75 05/10/2011 Checks blood for good (HDL) and bad (LDL) cholesterol. Know your numbers, they are one indicator of your risk for heart attack and stroke. Vaccine: Tetanus every 10 years 06/13/2003 06/10/2013 Immunization to help prevent you from getting the serious disease Tetanus (Lockjaw). Your Upcoming Appointments Date Time Location Reason Provider No Appointments found Your Goals/Additional instructions: Source: [facility] POWERCHART Document Id: [id number] CS PROGRAM OFFICER Miscellaneous - Andrew Vera D.N.P., C.N.P. - 05/10/2011 6:28 PM TOXICS PROGRAM OFFICER Ambulatory Depart Summary [facility] [address] [place] [address] Visit Information Name: CARTER MENSAH Current Date: 05/10/2011 18:28:10 Attending Provider: ANDREW VERA DNP, FNP Primary [...] medications. Medication/Strength Dose Route Frequency Indications/Special Instructions/Comments ondansetron (ondansetron 4 mg oral tablet) 4 mg Oral every 8 hours as needed for Nausea/vomiting topiramate (Topamax 25 mg oral tablet) See Instructions Take one tab by mouth daily for 5 days, thentake one tab by mouth twice a day. naproxen (naproxen) Oral Pain erythromycin topical (erythromycin topical 2% gel) 1 sonya Topical two times a day as needed for acne Additional Information: Yes - Current list of reconciled medications is provided and explained to the patient and/or family, guardian/caregiver. Source: [facility] POWERCHART Document Id: [id number] CS PROGRAM OFFICER Miscellaneous - Guido Merchant L.P.N. - 05/10/2011 6:01 PM CST Adult Community Artist Intake/History Adult Community Artist Intake/History Entered On: 05/10/2011 18:04 TOXICS PROGRAM OFFICER Performed On: 05/10/2011 18:01 TOXICS PROGRAM OFFICER by GUIDO MERCHANT TRAFFIC SAFETY ADMINISTRATOR Intake Chief Complaint : here to discuss birthcontrol options LMP Date : Temperature Core : 36.7C(Converted to: 98.1DegF) Peripheral Pulse Rate : 62/min Respiratory Rate : 18/min Heart Rhythm : Regular Systolic Blood Pressure : 104mmHg Diastolic Blood Pressure : 54mmHg NIBP Mean : 71mmHg BP Location : Right upper extremity Blood Pressure Cuff Size : Regular GUIDO MERCHANT LPN - 05/10/2011 18:01 TOXICS PROGRAM OFFICER Subjective Pain Symptoms : No GUIDO MERCHANT LPN - 05/10/2011 18:01 TOXICS PROGRAM OFFICER Dependent Habits Tobacco Use/Currently Using : Yes Tobacco Use/Advised to Quit : Yes Exposure to Tobacco Smoke : Patient smokes Smoking Status : Current every day smoker GUIDO MERCHANT LPN - 05/10/2011 18:01 TOXICS PROGRAM OFFICER Tobacco Use Grid Type : Cigarettes Cigarette Use Packs/Day : 1.0 GUIDO MERCHANT LPN - 05/10/2011 18:01 TOXICS PROGRAM OFFICER Caffeine Use Grid Caffeine Use : Current Type : Soft drinks Frequency : Daily GUIDO MERCHANT LPN - 05/10/2011 18:01 TOXICS PROGRAM OFFICER Recreational Drug Use Grid Drug Use : None GUIDO MERCHANT LPN - 05/10/2011 18:01 TOXICS PROGRAM OFFICER Allergy Allergies (Active) Augmentin XR Estimated Onset Date: Unspecified ; Created By: GUIDO MERCHANT LPN; Reaction Status: Active ; Category: Drug ; Substance: Augmentin XR ; Type: Allergy ; Updated By: GUIDO MERCHANT LPN; Reviewed Date: 04/19/2011 17:38 TOXICS PROGRAM OFFICER Cipro Estimated Onset Date: Unspecified ; Created By: YASMANY CAVANAUGH RN; Reaction Status: Active ; Category: Drug ; Substance: Cipro ; Type: Allergy ; Updated By: YASMANY CAVANAUGH RN; Reviewed Date: 04/19/2011 17:38 TOXICS PROGRAM OFFICER Silicone Estimated Onset Date: Unspecified ; Created By: JENNIFER FRANCIS RN; Reaction Status: Active ; Category: Drug ; Substance: Silicone ; Type: Sensitivity ; Updated By: JENNIFER FRANCIS RN; Reviewed Date: 04/19/2011 17:38 TOXICS PROGRAM OFFICER Source: [facility] POWERCHART Document Id: [id number] TOXICS PROGRAM OFFICER!32 CS PROGRAM OFFICER documented in this encounter Plan of Treatment Not on filedocumented as of this encounter Procedures Procedure Name Priority Date/Time Associated Diagnosis Comme nts TEST, U Routine 05/10/2011 6:41 PM Resu lts for this TOXICS PROGRAM OFFICER procedure are i n the results section. documented in this encounter Results Test, Qualitative, Urine (05/10/2011 6:41 PM TOXICS PROGRAM OFFICER) [facility] gist Method Time Signature HXBeta-hCG Negative POWERCHART Qualitative Urine Specimen (Source) Anatomical Collection Method Collection Time Re ceived Time Location / / Volume Laterality Urine 05/10/2011 6:41 PM TOXICS PROGRAM OFFICER Andrew Vera APRN, C.N.P., D.N.P. LAB URINE KRISTINA THOMPSON Performing Organization Address City/State/ZIP Code Phon e Number POWERCHART documented in this encounter Visit Diagnoses Not on filedocumented in this encounter
--- OUTSIDE RECORDS SUMMARY | 2022-03-16 15:09 | XMS_ITS | Encounter Summary ---
:1980 Author Organization [facility] Address [address] [place] [address] Care Team Providers Name Role Phone Unavailable Primary Care Provider Unavailable Encounter Details Date Type Department Care Team Description 08/22/2011 Hospital Encounter HX [facility] Barbara Wayne, AUTO RADIO MECHANIC, C.N.P., D. N.P. [address] [place] [address] (Wo rk) Social History Tobacco [...] Reading Time Taken Comments Blood Pressure 110/70 08/22/2011 1:27 PM CDT Pulse 80 08/22/2011 1:27 PM CDT Temperature - - Respiratory Rate 18 08/22/2011 1:27 PM CDT Oxygen Saturation - - Inhaled Oxygen Concentration - - Weight 82 kg (180 lb 12.4 oz) 08/22/2011 1:27 PM CDT Height - - Body Mass Index - - documented in this encounter Progress Notes Barbara Wayne, LO, C.N.P. - 08/22/2011 12:00 AM CDT [id number] CHIEF COMPLAINT/REASON FOR VISIT 1. Head congestion. 2. Anxiety. HISTORY OF PRESENT ILLNESS 1. Head congestion. Carter is a pleasant 31-year-old female who comes in today with a longstanding history of head congestion and allergies for quite some time. She states that her allergies have never been as bad as they have been in the last two to three months. She has been taking cold medicine such as Mucinex, Robitussin without any improvement. She has thick yellow to clear drainage. She feels that it is going down the back of her throat. She feels drained and tired. 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 She does have a history of two sinus surgeries in the past, the last one being in 2002. She is a tobacco user. 2. Anxiety. The patient reports that she has had a significant increase of anxiety. She thinks that she is smoking more because of that. She states that she worries about things that she cannot change. It is progressively seeming to be getting worse. She is having difficulty managing her day-to-day basis and states that since working five days a week it has become much worse. CURRENT MEDICATIONS Please see the EMR for details. New reconciled medication is nicotine patches 21, 14, 7 stepping down month by month. Also Prozac 20 mg by mouth daily, Flonase nasal spray and Lashay D daily. ALLERGIES Cipro, silicone and Augmentin. VITAL SIGNS Blood pressure 110/70. Pulse 80. PHYSICAL EXAMINATION GENERAL: The patient appears nondistressed. She is does tear up much during our visit today. She maintains good eye contact and is well groomed. SKIN: Warm and dry. HEENT: Normocephalic. She has some submaxillary sinus discomfort noted to palpation. Ears, nose, and throat - ears were clear. Nose with erythemic boggy turbinates, not patent on the right side vs. the left. Throat with some clear drainage noted. LYMPH: No cervical or supraclavicular lymphadenopathy. LUNGS: Clear to auscultation with good respiratory effort. ABDOMEN: Soft. No organomegaly. IMPRESSION/REPORT/PLAN 1. Allergic rhinitis. We will treat with Flonase nasal spray as well as Lashay D which I think will be helpful for her symptoms. Because she is absolutely miserable today and states that it is the worst that she has ever been, she is having difficulty sleeping, and she would like more immediate treatment I will go ahead and give her Solu-Medrol 125 IM today. 2. Tobacco cessation. The patient uses a pack per day. I did discuss with her the importance and the relationship of her sinuses and her tobacco use. She feels that that is related to her anxiety also. I did talk to her about different options for treatment, first tobacco cessation which would be beneficial including the Wellbutrin which also would help her anxiety slightly, but she would like to be more aggressive with that and wants to avoid Chantix but would be willing to use the nicotine patches as she has used them in the past. I did write her a prescription for that. 3. Anxiety. This is not new for her, but she has not ever treated it before. She does have some concerns about the cost of medications, and we will place her on Prozac 20 mg by mouth daily. I plan to see her back in six weeks to see how she is tolerating the medication and if she is noting any improvement. Patient Education Ready to learn No apparent learning barriers were identified Learning preferences include listening Explained diagnosis and treatment plan Patient/Child/Caregiver expressed understanding of the content Barbara Wayne N.P. / Electronically Signed By: BARBARA WAYNE RN, CNP On: 08/23/2011 04:49 PM Source: [facility] MHSDOLBEYNONRADSYS Document Id: [id number] documented in this encounter Miscellaneous Notes Miscellaneous - Barbara Wayne APRN, C.N.P. - 08/22/2011 2:06 PM CDT School or Work Excuse School or Work Excuse Entered On: 08/22/2011 14:07 CDT Performed On: 08/22/2011 14:06 CDT by BARBARA WAYNE RN, CNP School or Work Excuse Date Patient Seen : 08/22/2011 CDT Comment : Carter was seen today for illness. BARBARA WAYNE RN, CNP - 08/22/2011 14:06 CDT Source: [facility] POWERCHART Document Id: [id number] CDT!4 Miscellaneous - Barbara Wayne APRN, C.N.P. - 08/22/2011 2:03 PM CDT Ambulatory Patient Summary [address] [place] [address] Visit Information Name: CARTER MENSAH Current Date: 08/22/2011 14:03:32 Physicians Attending Provider: BARBARA WAYNE RN, LANIE Primary Care Provider: ANDREW VERA DNP, BOX ESTIMATOR Your Medications Here is a list of your medications. It is important to take your medications as directed. Use a pillbox or chart to help remind you to take your medications. Please let your doctor or nurse know if you have problems taking your medications. Medication/Strength Dose Route Frequency Indications/Special Instructions/Comments fluticasone nasal (Flonase 0.05 mg/inh nasal spray) 2 spray(s) Nasal once a day in each nostril fluoxetine (Prozac 20 mg oral capsule) 20 mg Oral once a day fexofenadine-pseudoephedrine (Lashay-D 24 Hour 180 mg-240 mg oral tablet, extended release) 1 tab(s) Oral once a day nicotine (nicotine 7 mg/24 hr transdermal film, extended release) 1 patch(es) Topical once a day nicotine (nicotine 14mg/24 hr transdermal film, extended release) 1 patch(es) Topical once a day nicotine (nicotine 21 mg/24 hr transdermal film, extended release) 1 patch(es) Topical once a day sertraline (Zoloft 100 mg oral tablet) 100 mg Oral once a day ondansetron (ondansetron 4 mg oral tablet) 4 mg Oral every 8 hours as needed for Nausea/vomiting topiramate (Topamax 25 mg oral tablet) 25 mg Oral two times a day naproxen (naproxen) Oral Pain erythromycin topical (erythromycin topical 2% gel) 1 sonya Topical two times a day as needed for acne Attention: If you have any medications at [...] No Appointments found Your Goals/Additional instructions: Source: [facility] POWERCHART Document Id: [id number] Miscellaneous - Barbara Wayne APRN, C.N.P. - 08/22/2011 2:03 PM CDT Ambulatory Depart Summary [address] [place] [address] Visit Information Name: CARTER MENSAH Visit Date: 08/22/2011 14:03:31 Attending Provider: BARBARA WAYNE RN, SIX SIGMA BLACK BELT ENGINEER Primary Care Provider: ANDREW VERA DNP, BOX ESTIMATOR CARTER MENSAH has been given the following list of medications: Your Medications It is important to take your medications as directed. Use a pill box or chart to help remind you to take your medications. Please let your doctor or nurse know if you have problems taking your medications. Medication/Strength Dose Route Frequency Indications/Special Instructions/Comments fluticasone nasal (Flonase 0.05 mg/inh nasal spray) 2 spray(s) Nasal once a day in each nostril fluoxetine (Prozac 20 mg oral capsule) 20 mg Oral once a day fexofenadine-pseudoephedrine (Lashay-D 24 Hour 180 mg-240 mg oral tablet, extended release) 1 tab(s) Oral once a day nicotine (nicotine 7 mg/24 hr transdermal film, extended release) 1 patch(es) Topical once a day nicotine (nicotine 14mg/24 hr transdermal film, extended release) 1 patch(es) Topical once a day nicotine (nicotine 21 mg/24 hr transdermal film, extended release) 1 patch(es) Topical once a day sertraline (Zoloft 100 mg oral tablet) 100 mg Oral once a day ondansetron (ondansetron 4 mg oral tablet) 4 mg Oral every 8 hours as needed for Nausea/vomiting topiramate (Topamax 25 mg oral tablet) 25 mg Oral two times a day naproxen (naproxen) Oral Pain erythromycin topical (erythromycin topical 2% gel) 1 sonya Topical two times a day as needed for acne Attention: If you have any medications at home that are not on this list, DO NOT take them until youcontact your provider for clarification. Additional Information: Source: [facility] POWERCHART Document Id: [id number] Miscellaneous - Radha Guajardo L.P.NLashawn - 08/22/2011 1:27 PM CDT Adult Mark Up Designer Intake/History Adult Mark Up Designer Intake/History Entered On: 08/22/2011 13:30 CDT Performed On: 08/22/2011 13:27 CDT by RADHA GUAJARDO LPN Intake Chief Complaint : needs an rx for daily allergies long hx of problems with allergies Temperature Core : 37C(Converted to: 98.6DegF) Peripheral Pulse Rate : 80/min Respiratory Rate : 18/min Heart Rhythm : Regular Systolic Blood Pressure : 110mmHg Diastolic Blood Pressure : 70mmHg NIBP Mean : 83mmHg BP Location : Left upper extremity Blood Pressure Cuff Size : Regular Actual Weight : 82kg(Converted to: 180lb 12oz) Weight Source : Standing scale Dosing Weight Clinic : 82.00kg RADHA GUAJARDO LPN - 08/22/2011 13:27 CDT Subjective Pain Symptoms : No RADHA GUAJARDO LPN - 08/22/2011 13:27 CDT Dependent Habits Tobacco Use/Currently Using : Yes Tobacco Use/Advised to Quit : Yes Exposure to Tobacco Smoke : Patient smokes Smoking Status : Current every day smoker RADHA GUAJARDO LPN - 08/22/2011 13:27 CDT Tobacco Use Grid Type : Cigarettes Cigarette Use Packs/Day : 1.0 RADHA GUAJARDO LPN - 08/22/2011 13:27 CDT Alcohol Use : No RADHA GUAJARDO LPN - 08/22/2011 13:27 CDT Caffeine Use Grid Caffeine Use : Current Type : Soft drinks Frequency : Daily RADHA GUAJARDO LPN - 08/22/2011 13:27 CDT Recreational Drug Use Grid Drug Use : None RADHA GUAJARDO LPN - 08/22/2011 13:27 CDT Allergy Allergies (Active) Augmentin XR Estimated Onset Date: Unspecified ; Reactions: GI distress ; Created By: MYRNA EDMONDS MD; Reaction Status: Active ; Category: Drug ; Substance: Augmentin XR ; Type: Intolerance ; Severity: Moderate ; Updated By: MYRNA EDMONDS MD; Source: Patient ; Reviewed Date: 08/12/2011 13:44 CDT Cipro Estimated Onset Date: Unspecified ; Created By: YASMANY CAVANAUGH RN; Reaction Status: Active ; Category: Drug ; Substance: Cipro ; Type: Allergy ; Updated By: YASMANY CAVANAUGH RN; Reviewed Date: 08/12/2011 13:44 CDT Silicone Estimated Onset Date: Unspecified ; Created By: JENNIFER FRANCIS RN; Reaction Status: Active ; Category: Drug ; Substance: Silicone ; Type: Sensitivity ; Updated By: JENNIFER FRANCIS RN; Reviewed Date: 08/12/2011 13:44 CDT Source: [facility] [employer] Document Id: [id number] CDT!35 documented in this encounter Plan of Treatment Not on filedocumented as of this encounter Visit Diagnoses Not on filedocumented in this encounter
--- OUTSIDE RECORDS SUMMARY | 2022-03-16 15:09 | XMS_ITS | Encounter Summary ---
:1980 Author Organization [facility] Address [address] [place] [address] Care Team Providers Name Role Phone Unavailable Primary Care Provider Unavailable Encounter Details Date Type Department Care Team Description 08/12/2011 Hospital Encounter HX [facility] Myrna Edmonds M.D. [...] Sign Reading Time Taken Comments Blood Pressure 110/60 08/12/2011 12:53 PM CDT Pulse 80 08/12/2011 12:53 PM CDT Temperature - - Respiratory Rate 16 08/12/2011 12:53 PM CDT Oxygen Saturation - - Inhaled Oxygen Concentration - - Weight 83.3 kg (183 lb 10.3 oz) 08/12/2011 12:53 PM CDT Height - - Body Mass Index - - documented in this encounter Progress Notes Myrna Edmonds M.D. - 08/12/2011 12:00 AM CDT [id number] CHIEF COMPLAINT/REASON FOR VISIT Carter comes in with a bad sore throat. She has had it for about three days. She says the two families that are neighbors to her had strep and she has been exposed to both of them. She says it hurts when she swallows. She denies any runny nose or cough. She is feeling some pain up into the left ear as well. She has had a fever. She has been using Tylenol for the pain and for the fever. Her daughter is not sick at this time. PHYSICAL EXAMINATION VITAL SIGNS: Her temperature is 37.4. HEENT: Tympanic membranes are clear. Pharynx is erythematous and swollen. Tongue shows some white patches. NECK: Supple with enlarged tender anterior cervical nodes. LUNGS: Clear. SKIN: Clear. LABORATORY Rapid strep is negative. IMPRESSION/REPORT/PLAN Sore throat. I think this may indeed be strep because of her exposures and because of the symptoms so I did elect to give her Bicillin 1.2 million units IM. She was also given a note for work since she did not go into work today. We will see her back as needed. Myrna Edmonds M.D. / Electronically Signed By: MYRNA EDMONDS MD On: 08/15/2011 05:26 PM Source: [facility] MHSDOLBEYNONRADSYS Document Id: [id number] documented in this encounter Miscellaneous Notes Miscellaneous - Myrna Edmonds M.D. - 08/12/2011 1:43 PM CDT Ambulatory Patient Summary [address] [place] [address] Visit Information Name: CARTER MENSAH Current Date: 08/12/2011 13:43:52 Physicians Attending Provider: MYRNA EDMONDS MD Primary Care Provider: ANDREW VERA DNP, REWINDER Your Medications Here is a list of [...] Active 04/17/1989 no known date of onset Abnormal Pap Active 10/21/2009 Acne vulgaris Active Date of onset unknown Examination or Test, Positive Result Active 03/31/2011 Your Upcoming Appointments Date Time Location Reason Provider No Appointments found Your Goals/Additional instructions: Source: [facility] POWERCHART Document Id: [id number] Miscellaneous - Myrna Edmonds M.D. - 08/12/2011 1:43 PM CDT Ambulatory Depart Summary [place] - [address] [address] Visit Information Name: CARTER MENSAH Visit Date: 08/12/2011 13:43:51 Attending Provider: MYRNA EDMONDS MD Primary Care Provider: ANDREW VERA [facility], REWINDER CARTER MENSAH has been given the following [...] your provider for clarification. Additional Information: Source: [facility] [employer] Document Id: [id number] Jose Luis - Myrna Edmonds M.D. - 08/12/2011 1:15 PM CDT School or Work Excuse School or Work Excuse Entered On: 08/12/2011 13:17 CDT Performed On: 08/12/2011 13:15 CDT by MYRNA EDMONDS MD School or Work Excuse Date Patient Seen : 08/12/2011 CDT School or Work Restrictions : Other: Carter was seen in the office today Date of Return to School/Work Without Restrictions : 08/15/2011 CDT MYRNA EDMONDS MD - 08/12/2011 13:15 CDT Source: [facility] [employer] Document Id: [id number] CDT!5 Miscellaneous - Valeriy Baltazar L.P.N. - 08/12/2011 12:53 PM CDT Adult Managing Cognitive Engineer Intake/History Adult Managing Cognitive Engineer Intake/History Entered On: 08/12/2011 12:56 CDT Performed On: 08/12/2011 12:53 CDT by VALERIY BALTAZAR Intake Chief Complaint : sore throat x3days with left ear pain Temperature Core : 37.4C(Converted to: 99.3DegF) Peripheral Pulse Rate : 80/min Respiratory Rate : 16/min Heart Rhythm : Regular Systolic Blood Pressure : 110mmHg Diastolic Blood Pressure : 60mmHg NIBP Mean : 77mmHg BP Location : Left upper extremity Blood Pressure Cuff Size : Regular Actual Weight : 83.3kg(Converted to: 183lb 10oz) Dosing Weight Clinic : 83.30kg VALERIY BALTAZAR - 08/12/2011 12:53 CDT Subjective Pain Symptoms : Yes VALERIY BALTAZAR 08/12/2011 12:53 CDT Pain Pain Assessment Grid Pain 1 Location : Throat Intensity : 7 VALERIY BALTAZAR 08/12/2011 12:53 CDT Dependent Habits Tobacco Use/Currently Using : Yes Tobacco Use/Advised to Quit : Yes Exposure to Tobacco Smoke : Patient smokes Smoking Status : Smoker VALERIY BALTAZAR 08/12/2011 12:53 CDT Tobacco Use Grid Type : Cigarettes Cigarette Use Packs/Day : 1.0 VALERIY BALTAZAR 08/12/2011 12:53 CDT Caffeine Use Grid Caffeine Use : Current Type : Soft drinks Frequency : Daily VALERIY BALTAZAR 08/12/2011 12:53 CDT Recreational Drug Use Grid Drug Use : None VALERIY BALTAZAR 08/12/2011 12:53 CDT Allergy Allergies (Active) Augmentin XR Estimated Onset Date: Unspecified ; Created By: GUIDO WALLACE LPN; Reaction Status: Active ; Category: Drug ; Substance: Augmentin XR ; Type: Allergy ; Updated By: GUIDO WALLACE LPN; Reviewed Date: 08/04/2011 7:04 CDT Cipro Estimated Onset Date: Unspecified ; Created By: YASMANY CAVANAUGH RN; Reaction Status: Active ; Category: Drug ; Substance: Cipro ; Type: Allergy ; Updated By: YASMANY CAVANAUGH RN; Reviewed Date: 08/04/2011 7:04 CDT Silicone Estimated Onset Date: Unspecified ; Created By: JENNIFER FRANCIS RN; Reaction Status: Active ; Category: Drug ; Substance: Silicone ; Type: Sensitivity ; Updated By: JENNIFER FRANCIS RN; Reviewed Date: 08/04/2011 7:04 CDT Source: [facility] POWERCHART Document Id: [id number] CDT!38 documented in this encounter Plan of Treatment Not on filedocumented as of this encounter Procedures Procedure Name Priority Date/Time Associated Diagnosis Comme nts RAPID STREP A Routine 08/12/2011 1:04 PM Results for this SCREEN CDT procedure are i n the results section. RAPID STREP A Routine 08/12/2011 1:04 PM Results for this SCREEN CDT procedure are i n the results section. documented in this encounter Results Rapid Strep A Screen (08/12/2011 1:04 PM CDT) [facility] [employer]now [employer] Method Time Signature HXRapid Strep POWERCHART Confirmation HXPre Negative for POWERCHART Group A Strep by culture. HXFinal Negative for POWERCHART Group A Strep by culture. Specimen Anatomical Collection Method Collection Time Receive d Time (Source) Location / / Volume Laterality Throat 08/12/2011 1:04 PM 2 1:04 CDT PM CDT Myrna Edmonds M.D. LAB MICROBIOLOGY - GENERAL O [place]IN Performing Organization Address City/[facility] Phon e Number POWERCHART Rapid Strep A Screen (08/12/2011 1:04 PM CDT) [facility] Method Time Signature HXStrep A POWERCHART Screen Rapid HXFinal Negative for POWERCHART Strep Group A by rapid screen. HXFinal Culture POWERCHART confirmation to follow. Specimen (Source) Anatomical Collection Method Collection Time Re ceived Time Location / / Volume Laterality Throat 08/12/2011 1:04 PM CDT Myrna Edmonds M.D. LAB MICROBIOLOGY - GENERAL O [place] Performing Organization Address [facility] Code Phon e Number POWERCHART documented in this encounter Visit Diagnoses Not on filedocumented in this encounter
--- OUTSIDE RECORDS SUMMARY | 2022-03-16 15:09 | XMS_ITS | Encounter Summary ---
:1980 Author Organization [facility] Address [address] [place] [address] Care Team Providers Name Role Phone Unavailable Primary Care Provider Unavailable Encounter Details Date Type Department Care Team Description 11/29/2011 Hospital Encounter HX [facility] [place] Des Lopez M.D. [address] [place] [phone] (Wo rk) Social History Tobacco Use [...] Sign Reading Time Taken Comments Blood Pressure 104/68 11/29/2011 4:13 PM CDT Pulse 100 11/29/2011 4:13 PM CDT Temperature - - Respiratory Rate 20 11/29/2011 4:13 PM CDT Oxygen Saturation - - Inhaled Oxygen Concentration - - Weight 82.1 kg (181 lb) 11/29/2011 4:13 PM CDT Height - - Body Mass Index 32.89 11/11/2011 1:36 PM CDT documented in this encounter H&P Notes Shameka Lopez M.D. - 11/29/2011 4:02 PM CDT [id number] IMPRESSION/REPORT/PLAN 1) Tobacco abuse. Counseled her fifteen per twenty-five minute session to stop smoking. 2) Bacterial bronchitis and bacterial sinusitis. Zithromax, 500 milligrams daily times seven days. Medrol Dose Pack, as directed. Albuterol MDI and Robitussin with Codeine all prescribed. CHIEF COMPLAINT/REASON FOR VISIT Tobacco abuse, smoker. She says she wants to stop. HISTORY OF PRESENT ILLNESS She has chest congestion, coughing, tightness, shortness of breath, no hemoptysis, purulent production, head is congested, she has a headache, sinus pressure, retrobulbar not unilateral, no throbbing and she is very fatigued. ALLERGIES 1) CIPRO. 2) SILICONE. 3) AUGMENTIN. SYSTEM REVIEW She hasn't had weight loss on system review and she describes no palpitations either on system review. SOCIAL HISTORY She is noted to smoke a pack of cigarettes daily and otherwise no illicit substance abuse. FAMILY HISTORY Family history is noncontributory. VITAL SIGNS Temperature: 36.0-degrees Centigrade. Heart rate: 100 per minute. Respiratory rate: 20 respirations per minute. Blood pressure: 104/68. PHYSICAL EXAM IN GENERAL: She looks fatigued and older than her age of [age]. Nasal tone to voice. HEENT: Sunken orbits, swollen nasal passages. TMs normal. Slightly retracted more on the right. CHEST: Bronchitic breath sounds to auscultation of the lungs bilaterally. CARDIAC: Regular. ABDOMEN: Soft, nontender. Shameka Lopez M.D./orion Electronically Signed By: SHAMEKA LOPEZ MD On: 12/06/2011 10:38 AM Source: [facility] MHSDOLBEYNONRADSYS Document Id: [id number] documented in this encounter Miscellaneous Notes Miscellaneous - Shameka Lopez M.D. - 11/29/2011 4:30 PM CDT Ambulatory Patient Summary [address] [address] Visit Information Name: CARTER MENSAH Current Date: 11/29/2011 16:30:48 Physicians Attending Provider: SHAMEKA LOPEZ MD Primary Care Provider: ANDREW VERA [facility], TOP FLAVOR ATTENDANT Your Medications Here is a list of your medications. It is important to take your medications as directed. Use a pillbox or chart to help remind you to take your medications. Please let your doctor or nurse know if you have problems taking your medications. Medication/Strength Dose Route Frequency Indications/Special Instructions/Comments albuterol (albuterol 90 mcg/inh inhalation aerosol) 2 puff(s) Inhalation every 4 hours as needed forShortness of breath / Wheezing methylPREDNISolone (Medrol Dosepak 4 mg oral tablet) See special instructions Oral as directed for 6Days azithromycin (azithromycin 500 mg oral tablet) 500 mg Oral once a day for 7 Days codeine-guaifenesin (Cheratussin AC 10 mg-100 mg/5 mL oral syrup) 10 mL Oral every 4 hours as neededfor cough topiramate (Topamax 25 mg oral tablet) 25 mg Oral two times a day escitalopram (Lexapro 10 mg oral tablet) 10 mg Oral once a day omega-3 polyunsaturated fatty acids (Fish Oil 1000 mg oral capsule) 1,000 mg Oral once a day norgestimate-ethinyl estradiol (Sprintec 0.25 mg-35 mcg oral tablet) 1 tab(s) Oral once a day start on the first Monday after menstruation ondansetron (ondansetron 4 mg oral tablet) 4 mg Oral every 8 hours as needed for Nausea/vomiting trazodone (trazodone 50 mg oral tablet) 50 mg Oral once a day (at bedtime) Start with 1/2 pill at bedtime, and increase to 1 pill at bedtime as needed triamcinolone topical (Kenalog 0.1% topical lotion) 1 sonya Topical two times a day topiramate (Topamax 25 mg oral tablet) 25 mg Oral two times a day for 180 Days naproxen (naproxen) Oral Pain Attention: If you [...] Upcoming Appointments Date Time Location Reason Provider 12/03/2011 08:00 [facility] Lab 12/07/2011 18:00 [facility] Family [facility] COLPOSCOPY Raquel Omalley MD Your Goals/Additional instructions: Source: [facility] POWERCHART Document Id: [id number] Miscellaneous - Shameka Lopez M.D. - 11/29/2011 4:30 PM CDT Ambulatory Depart Summary [address] [address] Visit Information Name: CARTER MENSAH Visit Date: 11/29/2011 16:30:48 Attending Provider: SHAMEKA LOPEZ MD Primary Care Provider: ANDREW VERA DNP, TOP FLAVOR ATTENDANT CARTER MENSAH has been given the following list of medications: Your Medications It is important to take your medications as directed. Use a pill box or chart to help remind you to take your medications. Please let your doctor or nurse know if you have problems taking your medications. Medication/Strength Dose Route Frequency Indications/Special Instructions/Comments albuterol (albuterol 90 mcg/inh inhalation aerosol) 2 puff(s) Inhalation every 4 hours as needed forShortness of breath / Wheezing methylPREDNISolone (Medrol Dosepak 4 mg oral tablet) See special instructions Oral as directed for 6Days azithromycin (azithromycin 500 mg oral tablet) 500 mg Oral once a day for 7 Days codeine-guaifenesin (Cheratussin AC 10 mg-100 mg/5 mL oral syrup) 10 mL Oral every 4 hours as neededfor cough topiramate (Topamax 25 mg oral tablet) 25 mg Oral two times a day escitalopram (Lexapro 10 mg oral tablet) 10 mg Oral once a day omega-3 polyunsaturated fatty acids (Fish Oil 1000 mg oral capsule) 1,000 mg Oral once a day norgestimate-ethinyl estradiol (Sprintec 0.25 mg-35 mcg oral tablet) 1 tab(s) Oral once a day start on the first Monday after menstruation ondansetron (ondansetron 4 mg oral tablet) 4 mg Oral every 8 hours as needed for Nausea/vomiting trazodone (trazodone 50 mg oral tablet) 50 mg Oral once a day (at bedtime) Start with 1/2 pill at bedtime, and increase to 1 pill at bedtime as needed triamcinolone topical (Kenalog 0.1% topical lotion) 1 sonya Topical two times a day topiramate (Topamax 25 mg oral tablet) 25 mg Oral two times a day for 180 Days naproxen (naproxen) Oral Pain Attention: If you have any medications at home that are not on this list, DO NOT take them until youcontact your provider for clarification. Additional Information: Yes - . Source: [facility] POWERCHART Document Id: [id number] Miscellaneous - William Mishra L.P.N. - 11/29/2011 4:13 PM CDT Adult Instructional Facilitator Intake/History Adult Instructional Facilitator Intake/History Entered On: 11/29/2011 16:16 CDT Performed On: 11/29/2011 16:13 CDT by WILLIAM MISHRA LPN Intake Chief Complaint : Chest cold wont go away even after amox. now in chest Temperature Core : 36.0C(Converted to: 96.8DegF) (LOW) Peripheral Pulse Rate : 100/min Respiratory Rate : 20/min Heart Rhythm : Regular Systolic Blood Pressure : 104mmHg Diastolic Blood Pressure : 68mmHg NIBP Mean : 80mmHg BP Location : Right upper extremity Blood Pressure Cuff Size : Regular SpO2 : 98% Oxygen Therapy : Room air Actual Weight : 82.1kg(Converted to: 181lb 0oz) Weight Source : Standing scale Dosing Weight Clinic : 82.10kg WILLIAM MISHRA CONTENT PRODUCTION SPECIALIST - 11/29/2011 16:13 CDT Subjective Pain Symptoms : No WILLIAM MISHRA LPN - 11/29/2011 16:13 CDT Dependent Habits Tobacco Use/Currently Using : Yes Tobacco Use/Advised to Quit : Yes Exposure to Tobacco Smoke : Patient smokes Smoking Status : Current every day smoker WILLIAM MISHRA LPN - 11/29/2011 16:13 CDT Tobacco Use Grid Type : Cigarettes Cigarette Use Packs/Day : 1.0 WILLIAM MISHRA LPN - 11/29/2011 16:13 CDT Alcohol Use : No WILLIAM MISHRA LPN - 11/29/2011 16:13 CDT Caffeine Use Grid Caffeine Use : Current Type : Soft drinks Frequency : Daily WILLIAM MISHRA LPN - 11/29/2011 16:13 CDT Recreational Drug Use Grid Drug Use : None WILLIAM MISHRA LPN - 11/29/2011 16:13 CDT Allergy Allergies (Active) Augmentin XR Estimated Onset Date: Unspecified ; Reactions: GI distress ; Created By: MYRNA EDMONDS MD; Reaction Status: Active ; Category: Drug ; Substance: Augmentin XR ; Type: Intolerance ; Severity: Moderate ; Updated By: MYRNA EDMONDS MD; Source: Patient ; Reviewed Date: 11/29/2011 16:13 CDT Cipro Estimated Onset Date: Unspecified ; Created By: YASMANY CAVANAUGH RN; Reaction Status: Active ; Category: Drug ; Substance: Cipro ; Type: Allergy ; Updated By: YASMANY CAVANAUGH RN; Reviewed Date: 11/29/2011 16:13 CDT Silicone Estimated Onset Date: Unspecified ; Created By: JENNIFER FRANCIS RN; Reaction Status: Active ; Category: Drug ; Substance: Silicone ; Type: Sensitivity ; Updated By: JENNIFER FRANCIS RN; Reviewed Date: 11/29/2011 16:13 CDT [facility] Document Id: [id number] documented in this encounter Plan of Treatment Not on filedocumented as of this encounter Visit Diagnoses Not on filedocumented in this encounter Additional Health Concerns Assessment Noted Time PHQ-9 Depression Total Score: 10 11/11/2011 11:45 AM C DT documented as of this encounter
--- OUTSIDE RECORDS SUMMARY | 2022-03-16 15:09 | XMS_ITS | Encounter Summary ---
:1980 Author Organization [facility] Address [address] [place] [address] Care Team Providers Name Role Phone Unavailable Primary Care Provider Unavailable Encounter Details Date Type Department Care Team Description 01/04/2012 Hospital Encounter HX [facility] Vineet shetty M.D. [address] [place] [phone] (Wo rk) Social History Tobacco Use [...] Reading Time Taken Comments Blood Pressure 110/72 01/04/2012 5:15 PM CDT Pulse 90 01/04/2012 5:15 PM CDT Temperature - - Respiratory Rate 16 01/04/2012 5:15 PM CDT Oxygen Saturation - - Inhaled Oxygen Concentration - - Weight 80 kg (176 lb 5.9 oz) 01/04/2012 5:15 PM CDT Height 159 cm (5' 2.6) 01/04/2012 5:15 PM CDT Body Mass Index 31.64 01/04/2012 5:15 PM CDT documented in this encounter H&P Notes Vineet Schmidt M.D. - 01/04/2012 5:11 PM CDT [id number] CHIEF COMPLAINT/REASON FOR VISIT Cervical dysplasia. HISTORY OF PRESENT ILLNESS Carter is a 31-year-old female with a history of CIN1 in 2009 and ultimately underwent a shave cone biopsy in October of 2009 with pathology results of CIN1 with negative margins. The patient had a negative Pap smear in June of 2010 and had a Pap smear in October of 2011 showing CIN1. She presents today for colposcopy. She also notes she has had very irregular periods for the past year. She will go a few months on and then a few months without and notes that her bleeding will be anywhere from heavy to light. Normally she would have a heavy flow. She is on control pill but still is having these issues. CURRENT MEDICATIONS Cefzil 500 mg by mouth twice daily. Oral control pill one tablet by mouth daily. Topamax 150 mg in the morning and 50 mg in the evening. Tramadol 50 mg by mouth every 6 hours. ALLERGIES Augmentin. Cipro. Silicone. SYSTEMS REVIEW As per history of present illness. The patient also notes that she has been having issues with her ears and had a tympanostomy procedure today. This was on the left ear. PAST MEDICAL HISTORY History of CIN1 status post shave cone biopsy, acne, allergic rhinitis, anxiety, migraine headaches,and tobacco use. The patient is a G3, P1 with one miscarriage and one tubal . PAST SURGICAL HISTORY Cone biopsy, sinus surgery and tonsillectomy. SOCIAL HISTORY The patient is 7-year-old. She works at [employer] in [place]. She smokes about one pack per day. VITAL SIGNS Temperature 36.4. Pulse 90 beats per minute. Respiratory rate is 16 breaths per minute. Blood pressure is 110/72. Oxygen saturation is 99% on room air. Height 159 cm. Weight is 80 kg. BMI is 31.6. PROCEDURE Colposcopy. The procedure was discussed with the patient. She has had this done a couple of times in the past khalif is familiar with it. We again reviewed it. We also discussed the potential risks including infection, bleeding and missing a lesion. We also discussed pain with the procedure. The patient voiced und erstanding. Consent was signed. Wiggins protocol was followed. Following that the patient was placed in the dorsolithotomy position in [facility] and the speculum was inserted. Her cervix was visualized with the colposcope. The squamocolumnar junction was located right at the cervical os and was difficult to fully visualize. There was also some tenacious, clear cervical mucus present. There were no other obvious abnormalities of the cervix. Following this acetic acid was placed on the cervix with cotton balls and left on for 30 seconds. The cotton balls were then removed and the cervix was visualized with the colposcope. There were no definite areas of acetowhite abnormality. Following that, Lugol's solution was placed over the cervix and there was one area of abnormality identified around the 10to 11 o'clock position towards the outer margin of the ectocervix. This area was less than 0.5 cm across and was fairly well circumscribed. Following this we obtained a biopsy at the 10 to 11 o'clock position. We then proceeded with ECC, although only a scant amount of tissue was obtained. The patienthad some cramping with the ECC but otherwise tolerated the procedure well. Bleeding was controlled with pressure. The speculum was then removed. IMPRESSION/REPORT/PLAN CIN1. Colposcope was completed today. She will return in one week for biopsy results. We also discussed that she should not place anything in the vagina for one week. If she has any excessive bleeding,cramping, fever or foul-smelling discharge, she should let us know. We also discussed that management guidelines of cervical dysplasia have changed and at this time we tend to monitor CIN1 rather than proceeding on to LEEP or cone biopsy. Certainly the patient is a smoker so this puts her at increasedrisk for progression, but thus far she has done fairly well at following up so she has shown herselfto be reliable. We will see the patient back in one week. Patient Education Ready to learn No apparent learning barriers were identified Learning preferences include listening Explained diagnosis and treatment plan Patient/Child/Caregiver expressed understanding of the content Vineet Omalley M.D./taz Electronically Signed By: VINEET ARCHULETA MD On: 01/11/2012 07:34 PM Modified by and Electronically Signed by: VINEET ARCHULETA MD On: 01/11/2012 07:34 PM Source: [facility] MHSDOLBEYNONRADSYS Document Id: [id number] documented in this encounter Miscellaneous Notes Miscellaneous - Vineet Schmidt M.D. - 01/04/2012 5:43 PM CDT Ambulatory Patient Summary [address] [address] Visit Information Name: CARTER LEI Current Date: 01/04/2012 17:43:15 Physicians Attending Provider: VINEET ARCHULETA MD Primary Care Provider: ANDREW CAMPBELL DNP, DIRECTOR OF INFECTION CONTROL Your Medications Here is a list of your medications. It is important to take your medications as directed. Use a pillbox or chart to help remind you to take your medications. Please let your doctor or nurse know if you have problems taking your medications. Medication/Strength Dose Route Frequency Indications/Special Instructions/Comments tramadol (tramadol 50 mg oral tablet) 50 mg Oral every 6 hours as needed for Pain cefprozil (Cefzil 500 mg oral tablet) 500 mg Oral two times a day for 10 Days topiramate (Topamax 50 mg oral tablet) 50 mg Oral two times a day take in AM with 100mg tab to [id number] & take 1 tab in PM ( [...] Upcoming Appointments Date Time Location Reason Provider 01/05/2012 08:00 [facility] Family Med RECHECK EARS Andrew Campbell NP Your Goals/Additional instructions: Source: [facility] POWERCHART Document Id: [id number] Miscellaneous - Vineet Schmidt M.D. - 01/04/2012 5:43 PM CDT Ambulatory Depart Summary [address] [address] Visit Information Name: CARTER LEI ELEAZAR Visit Date: 01/04/2012 17:43:14 Attending Provider: VINEET ARCHULETA MD Primary Care Provider: ANDREW CAMPBELL DNP, DIRECTOR OF INFECTION CONTROL CARTER LEI has been given the following list of medications: Your Medications It is important to take your medications as directed. Use a pill box or chart to help remind you to take your medications. Please let your doctor or nurse know if you have problems taking your medications. Medication/Strength Dose Route Frequency Indications/Special Instructions/Comments tramadol (tramadol 50 mg oral tablet) 50 mg Oral every 6 hours as needed for Pain cefprozil (Cefzil 500 mg oral tablet) 500 mg Oral two times a day for 10 Days topiramate (Topamax 50 mg oral tablet) 50 mg Oral two times a day take in AM with 100mg tab to [id number] & take 1 tab in PM ( [...] your provider for clarification. Additional Information: Source: [facility] POWERCHART Document Id: [id number] Miscellaneous - Delma Swift, L.P.N. - 01/04/2012 5:15 PM CDT Adult Team Guide Intake/History Adult Team Guide Intake/History Entered On: 01/04/2012 17:21 CDT Performed On: 01/04/2012 17:15 CDT by DELMA SWIFT SUPERVISOR CARTOGRAPHY, RT Intake Chief Complaint : colposcopy Temperature Core : 36.4C(Converted to: 97.5DegF) (LOW) Peripheral Pulse Rate : 90/min Respiratory Rate : 16/min Heart Rhythm : Regular Systolic Blood Pressure : 110mmHg Diastolic Blood Pressure : 72mmHg NIBP Mean : 85mmHg BP Location : Right upper extremity Blood Pressure Cuff Size : Regular SpO2 : 99% Oxygen Therapy : Room air Height : 159cm(Converted to: 5ft 3inch(es), 62.60inch(es)) Actual Weight : 80kg(Converted to: 176lb 6oz) Weight Source : Standing scale Dosing Weight Clinic : 80.00kg Clinic BSA : 1.88 Body Mass Index : 31.64kg/m2 DELMA SWIFT LPN, 01/04/2012 17:15 CDT General Info Information Given By : Patient Preferred Communication Mode : Verbal Languages : [place] DELMA SWIFT EVIN, 01/04/2012 17:15 CDT Subjective Pain Symptoms : No DELMA SWIFT LPN, 01/04/2012 17:15 CDT Dependent Habits Tobacco Use/Currently Using : Yes Exposure to Tobacco Smoke : Patient smokes Smoking Status : Current every day smoker DELMA SWIFT EVIN, 01/04/2012 17:15 CDT Tobacco Use Grid Type : Cigarettes Cigarette Use Packs/Day : 1.0 Last Use : today DELMA SWIFT EVIN, 01/04/2012 17:15 CDT Caffeine Use Grid Caffeine Use : Current Type : Soft drinks Frequency : Daily DELMA SWIFT EVIN, 01/04/2012 17:15 CDT Recreational Drug Use Grid Drug Use : None DELMA SWIFT EVIN, 01/04/2012 17:15 CDT Allergy Allergies (Active) Augmentin XR Estimated Onset Date: Unspecified ; Reactions: GI distress ; Created By: MYRNA EDMONDS MD; Reaction Status: Active ; Category: Drug ; Substance: Augmentin XR ; Type: Intolerance ; Severity: Moderate ; Updated By: MYRNA EDMONDS MD; Source: Patient ; Reviewed Date: 01/02/2012 13:53 CDT Cipro Estimated Onset Date: Unspecified ; Created By: YASMANY CAVANAUGH RN; Reaction Status: Active ; Category: Drug ; Substance: Cipro ; Type: Allergy ; Updated By: YASMANY CAVANAUGH RN; Reviewed Date: 01/02/2012 13:53 CDT Silicone Estimated Onset Date: Unspecified ; Created By: JENNIFER FRANCIS RN; Reaction Status: Active ; Category: Drug ; Substance: Silicone ; Type: Sensitivity ; Updated By: JENNIFER FRANCIS RN; Reviewed Date: 01/02/2012 13:53 CDT Source: [facility] POWERCHART Document Id: [id number] documented in this encounter Plan of Treatment Not on filedocumented as of this encounter Procedures Procedure Name Priority Date/Time Associated Diagnosis Comme nts TEST, U Routine 01/04/2012 5:46 PM Resu lts for this CDT procedure are i n the results section. SURGICAL PATHOLOGY Routine 01/04/2012 8:10 AM Res ults for this CDT procedure are i n the results section. documented in this encounter Results Test, Qualitative, Urine (01/04/2012 5:46 PM CDT) [facility] [employer] Method Time Signature HXBeta-hCG Negative POWERCHART Qualitative Urine Specimen (Source) Anatomical Collection Method Collection Time Re ceived Time Location / / Volume Laterality Urine 01/04/2012 5:46 PM CDT Vineet Mcwilliams M.D. LAB URINE ORDERABLES Performing Organization Address City/State/ZIP Code Phon e Number POWERCHART Pathology Anatpath Wet Tissue (01/04/2012 8:10 AM CDT) [facility] Method Time Signature HXSurg IV [id number] POWERCHART [facility] HXSurg IV See Comment POWERCHART [facility] Comment: RESULT: Vineet Omalley M.D. HXSurg IV [facility] See Comment POWERCHA RT Comment: [address] [address] SLIDE DISPOSITION: [facility] IV [facility] See Comment POWER CHART Comment: [id number] A. ?? Received in formalin, labeled with the patient's name and and lab eled as ECC are multiple minute translucent tissue fragments admi xed with a moderate amount of mucus, 1.5 x 0.6 x 0.2 cm in aggregat e. The specimens are submitted en toto in cassette A1. B. ?? Received in formalin, labeled with the patient's name and and lab eled as ectocervix approximately 11:00 are three pale newby- translucent irregular soft tissues, ranging from 0.2-0.4 cm in grea test dimension. The specimens are submitted en toto in casse tte B1. Part A: ??Endocervical Curettings 1 ECC Part B: ??Ectocervix aprrox 11:00 1 11:00 Cerv Bx Becki Cordoba M.D. XRSR Path HXSurg IV [facility] See Comment POWER CHART Comment: A. ??Endocervix, curettage: ??Scant frag ments of negative endocervix and benign squamous epithelium. B. ??Ectocervix, 11 o'clock, biopsy: ??M ild squamous dysplasia (LISSETT 1). Seen in consultation with Dr. Becki Clayton err. HXSurg IV [facility] See Comment POWER CHART Comment: RESULT: 01/09/2012 14:51 Interpreted by: Monika Haley M.D. Report electronically signed by Monika Haley M.D. Transcribed by: [email or web address] 01/09/2012 14:48:22 Test Performed by: [place] [address] Clinical Research Nurse Coordinator: Pranav morris III, M.D. Specimen (Source) Anatomical Collection Method Collection Time Re ceived Time Location / / Volume Laterality Tissue 01/04/2012 8:10 AM CDT Vineet Mcwilliams M.D. LAB SURG PATH ORDERABLE S Performing Organization Address City/State/ZIP Code Phon e Number POWERCHART documented in this encounter Visit Diagnoses Not on filedocumented in this encounter
--- OUTSIDE RECORDS SUMMARY | 2022-03-16 15:09 | XMS_ITS | Encounter Summary ---
:1980 Author Organization [facility] Address [address] [place] [address] Care Team Providers Name Role Phone Unavailable Primary Care Provider Unavailable Encounter Details Date Type Department Care Team Description 03/18/2012 Hospital Encounter HX [facility] Nadia Barron M.D. [address] [place] [phone] (Wo rk) Social History Tobacco Use [...] Sign Reading Time Taken Comments Blood Pressure 112/74 03/18/2012 12:31 PM [employer] Pulse - - Temperature - - Respiratory Rate 24 03/18/2012 12:31 PM [employer] Oxygen Saturation - - Inhaled Oxygen Concentration - - Weight - - Height 157.5 cm (5' 2.01) 03/18/2012 12:31 PM [employer] Body Mass Index - - documented in this encounter Discharge Summaries Vj Archibald R.N. - 03/18/2012 1:31 PM CST ED Discharge Instructions [address] [address] Name: CARTER LEI Date of : 1980 12:00 AM Visit Date: 03/18/2012 12:30 PM [facility] Number: [id number] Address: [address] [place] [phone] Primary Care Provider: ANDREW VERA DNP, SALES AND LEASING AGENT IMPORTANT: [facility] in [place] would like to thank you for allowing us to assist you with your healthcare needs. The following includes patient education materials and informationregarding your injury/illness. Chief Complaint: Headache; Migraine, unspecified; Migraine Follow-Up Instructions: With: Address: When: ANDREW VERA [address] [place] [id number] Business (1) In 5 days 03/23/2012 Comments: Patient Education Materials: [id number] MIGRAINE HEADACHE Migraine headaches are related to [...] -- Difficulty with speech or vision ?? [id number] [employer], [address] [place] [address]. All rights reserved. This information is not intended as a substitute for professional medical care. Always follow your healthcare professional's instructions. ED Tests and Procedures: Order Status Discharge Prescriptions & Home Medications: Medication/Strength Dose Route Frequency Indications/Special Instructions/Comments ibuprofen (ibuprofen 200 mg oral tablet) 800 mg Oral as needed as needed for headache topiramate (Topamax 50 mg oral tablet) 50 mg Oral once a day topiramate (Topamax 50 mg oral tablet) 150 mg Oral once a day (in the morning) fluticasone nasal (Flonase 50 mcg/inh nasal spray) 2 spray(s) Nasal two times a day as needed for Nasal congestion norgestimate-ethinyl estradiol (Sprintec 0.25 mg-35 mcg oral tablet) 1 tab(s) Oral once a day start on the first Monday after menstruation naproxen (naproxen) Oral Pain Comment: Attention: If you have any [...] to take those medications. CARTER LEI or designee has reviewed the home medications you have [...] Date Time Provider Signature Date Time Source: [employer] Document Id: [id number] [employer] Vj Archibald R.N. - 03/18/2012 1:31 PM CST ED Depart Summary [facility] Emergency Department Clinical Discharge Summary PERSON INFORMATION Name CARTER LEI Age 31 Years 1980 12:00 AM Sex Female Language Tajik PCP ANDREW VERA DNP, SALES AND LEASING AGENT Marital Status Single N [id number] Visit Id Visit Reason Headache; Migraine, unspecified; Migraine Specialty Enc Type Emergency Med Service Emergency Medicine Referred by Track Group [facility] ED Discharge 03/18/2012 1:31 PM Tracking Id [id number] Checkout 03/18/2012 1:31 PM Checkin 03/18/2012 12:30 PM Acuity 3 -Urgent Dispo Type * Discharged to Home or Self Care Arrival 03/18/2012 12:30 PM Reg Status LOS 000 01:01 Address: [address] [place] [phone] Comment: PROVIDER INFORMATION Provider Role Provider Contact Time RYAN VALLEJO MD ED Provider 03/18/12 12:43 DIAGNOSIS Migraine headache 346.90 Comment: PATIENT EDUCATION INFORMATION Instructions: HEADACHE, Migraine (Classical) Follow up: With: Address: When: ANDREW VERA [address] [place] [address] Business (1) In 5 days 03/23/2012 Comments: Source: [facility] [employer] Document Id: [id number] [employer] documented in this encounter Nursing Notes Vj Archibald R.N. - 03/18/2012 1:25 PM CST ED Pain Assessment ED Pain Assessment Entered On: 03/18/2012 13:26 [employer] Performed On: 03/18/2012 13:25 [employer] by VJ ARCHIBALD RN Pain Assessment Pain Symptoms : Yes VJ ARCHIBALD RN - 03/18/2012 13:25 [employer] Pain Pain Assessment Grid Pain 1 Location : Frontal Laterality : Bilateral Intensity : 5 Time Pattern : Constant Onset : Gradual Quality : Aching Pain Radiation : No Aggravating Factors : Light Alleviating Factors : Medication Associated Symptoms : Nausea Interventions : Medications Comments (Comment: patient states pain is improving rated currently 4-5/10 [VJ ARCHIBALD RN- 03/18/2012 13:25 [employer]] ) VJ ARCHIBALD RN - 03/18/2012 13:25 [employer] Source: [employer] Document Id: [id number] [employer] Vj Archibald R.N. - 03/18/2012 12:42 PM CST ED Primary Assessment ED Primary Assessment Entered On: 03/18/2012 12:50 [employer] Performed On: 03/18/2012 12:42 [employer] by VJ ARCHIBALD RN Reason For Visit Problems(Active) Abnormal Pap Name of Problem: Abnormal Pap ; Onset Date: 10/21/2009 ; Recorder: JENNIFER LIN LPN; Confirmation: Confirmed ; Classification: Nursing ; Code: 1231 ; Contributor System: [employer] ; Last Updated: 08/16/2010 9:50 CDT ; [...] WAYNE RN, CNP; Vocabulary: ICD-9-CM Migraine headache Name of Problem: Migraine headache ; Onset Date: 04/17/1989 ; Recorder: SANDRINE FULLER RN; Confirmation: Confirmed ; Classification: Medical ; Code: 1231 ; Contributor System: [employer] ; Last Updated: 04/12/2011 17:14 [employer] ; Life Cycle Date: 06/10/2010 ; Life [...] JANAY WAYNE RN, CNP; Vocabulary: ICD-9-CM Diagnoses(Active) Migraine, unspecified Date: 03/18/2012 ; Diagnosis Type: Reason For Visit ; Confirmation: Complaint of ; Clinical Dx: Migraine, unspecified ; Classification: Medical ; Clinical Service: Emergency medicine ; Code: ICD-9-CM ; Probability: 0 ; Diagnosis Code: 346.90 Triage Chief Complaint Description : SEE TRIAGE Mode of Arrival ED : Private vehicle Track : Medical Languages : Tajik Vital Signs Assessed : Yes GCS Assessed : Yes VJ ARCHIBALD RN - 03/18/2012 12:42 [employer] Vital Signs Apical Heart Rate : 86/min SpO2 : 98% Oxygen Therapy : Room air VJ ARCHIBALD RN - 03/18/2012 12:42 [employer] Héctor Coma Eye Opening Response Héctor : Spontaneously Best Verbal Response Héctor : Oriented Best Motor Response Hope : Obeys simple commands Hope Coma Score : 15 VJ ARCHIBALD RN - 03/18/2012 12:42 [employer] Pain Assessment Pain Symptoms : Yes VJ ARCHIBALD RN - 03/18/2012 12:42 [employer] ED Physician Notification Time ED Physician Notification Time : 03/18/2012 12:37 [employer] VJ ARCHIBALD RN - 03/18/2012 12:42 [employer] MORALES MORALES Level 1 : No MORALES Level 2 : No MORALES Level 3 : One VJ ARCHIBALD RN - 03/18/2012 12:42 [employer] DCP GENERIC CODE Tracking Acuity : 3 -Urgent Tracking Group : [facility] ED VJ ARCHIBALD RN - 03/18/2012 12:42 [employer] Allergy Latex Reaction : No VJ ARCHIBALD RN - 03/18/2012 12:42 [employer] Allergies (Active) Augmentin XR Estimated Onset Date: Unspecified ; Reactions: GI distress ; Created By: MYRNA EDMONDS MD; Reaction Status: Active ; Category: Drug ; Substance: Augmentin XR ; Type: Intolerance ; Severity: Moderate ; Updated By: MYRNA EDMONDS MD; Source: Patient ; Reviewed Date: 03/18/2012 12:43 [employer] Cipro Estimated Onset Date: Unspecified ; Created By: YASMANY CAVANAUGH RN; Reaction Status: Active ; Category: Drug ; Substance: Cipro ; Type: Allergy ; Updated By: YASMANY CAVANAUGH RN; Reviewed Date: 03/18/2012 12:43 [employer] Silicone Estimated Onset Date: Unspecified ; Created By: JENINFER FRANCIS RN; Reaction Status: Active ; Category: Drug ; Substance: Silicone ; Type: Sensitivity ; Updated By: JENNIFER FRANCIS RN; Reviewed Date: 03/18/2012 12:43 [employer] ID Screen Drug Resistant Organism : No VJ ARCHIBALD RN - 03/18/2012 12:42 [employer] Immunizations Immunizations Current : Yes Last Tetanus : < 5 years Pneumovac : None Influenza : This year VJ ARCHIBALD RN - 03/18/2012 12:42 [employer] Respiratory Airway : Patent Respirations : Unlabored Respiratory Pattern : Regular Oxygen Therapy : Room air VJ ARCHIBALD RN - 03/18/2012 12:42 [employer] Cardiovascular Heart Rhythm : Regular Skin Color : Normal for ethnicity Skin Description : Dry Skin Temperature : Warm VJ ARCHIBALD RN - 03/18/2012 12:42 [employer] Neurological Last Well Time Known : Not applicable Level of Consciousness : Drowsy Orientation : Oriented x 3 Characteristics of Speech : Appropriate for age Neuro Patient Stated Symptoms : Headache Gait : Steady Swallowing Difficulty/Aspiration Risk : None VJ ARCHIBALD RN - 03/18/2012 12:42 [employer] ED Psychosocial Affect/Behavior : Calm, Cooperative, Appropriate Domestic Abuse Concerns : None Emotional Support Available : Yes VJ ARCHIBALD RN - 03/18/2012 12:42 [employer] Gastrointestinal Nutrition ED : Adequate VJ ARCHIBALD RN - 03/18/2012 12:42 [employer] /OB Assessment Patient Stated Symptoms : None VJ ARCHIBALD RN - 03/18/2012 12:42 [employer] Integumentary Integumentary Patient Stated Symptoms : None Skin Turgor : Elastic Skin Integrity : Intact Mucous Membrane Color : [place] Mucous Membrane Description : Moist Skin Color : Normal for ethnicity Skin Description : Dry Skin Temperature : Warm VJ ARCHIBALD RN - 03/18/2012 12:42 [employer] Musculoskeletal Fall Prevention Education Provided : VJ GOLDSTEIN RN - 03/18/2012 12:42 [employer] Social Habits Tobacco Use/Currently Using : Yes Exposure to Tobacco Smoke : Patient smokes Smoking Status : Current every day smoker VJ ARCHIBALD RN - 03/18/2012 12:42 [employer] Tobacco Use Grid Type : Cigarettes Cigarette Use Packs/Day : 0.5 VJ ARCHIBALD RN - 03/18/2012 12:42 [employer] Alcohol Use Grid Alcohol Use : Other: occasional No VJ ARCHIBALD RN - 03/18/2012 12:42 [employer] VJ ARCHIBALD RN - 03/18/2012 12:42 [employer] Recreational Drug Use Grid Drug Use : None VJ ARCHIBALD RN - 03/18/2012 12:42 [employer] Source: [employer] Document Id: [id number] [employer] documented in this encounter ED Notes Vj Archibald R.N. - 03/18/2012 1:25 PM CST ED Disposition Summary ED Disposition Summary Entered On: 03/18/2012 13:25 [employer] Performed On: 03/18/2012 13:25 [employer] by VJ ARCHIBALD RN ED Disposition Summary Accompanied By : Alone Mode of Discharge : Ambulatory Transportation : Private vehicle Discharge From ED With : Home Med List Printed Discharge Instructions Given to Patient : Yes Patient Status at Discharge from ED : Improved VJ ARCHIBALD RN - 03/18/2012 13:25 [employer] Source: [employer] Document Id: [id number] [employer] Ryan Vallejo M.D. - 03/18/2012 12:49 PM CST Migraine, unspecified, Headache Patient: CARTER LEI Age: 31 years Sex: Female : 1980 Author: RYAN VALLEJO MD Attachments: None Associated Diagnosis: Migraine headache 346.90 Basic Information Time seen: Immediately upon arrival. History of Present Illness The patient presents with headache, migraine,Migraine started last night, fairly similar to the migraines she had before., was shopping in mall and was around lot of noise and crowd, that might be a trigger. She gets about three to four migraines a year in spite being on prophylaxis with topamax. Headache started suddenly and is getting worse. and No recent sinus drainage or cold symptoms.. The onset was 10 hours ago. The course/duration of symptoms is constant, worsening and fluctuating in intensity. Location: Frontal temporal parietal. Radiating pain: none. The character of symptoms is tightness and throbbing. The degree at onset was moderate, 6 /10. The degree at maximum was severe, 8 /10. . The degree at present is severe, 8 /10. There are exacerbating factors including light, noise and exertion. There are relieving factors including light avoidance, noise avoidance, rest and medications(s). Risk factors consist of none. Prior episodes: chronic and migraine. Therapy today: over the counter medications including ibuprofen. and prescription medications including topamax. Preceding symptoms: visual disturbance. Associated symptoms: nausea and vomiting. Additional history: one episode fo vomiting this morning.. Review of Systems Constitutional symptoms: No fever or no chills. Eye symptoms: Vision unchanged. ENMT symptoms: No ear pain or no sore throat. Respiratory symptoms: No shortness of breath. Cardiovascular symptoms: No chest pain or no palpitations. Gastrointestinal symptoms: No abdominal pain. Genitourinary symptoms: No dysuria. Musculoskeletal symptoms: No back pain. Neurologic symptoms: Headache. Additional review of systems information: All other systems reviewed and otherwise negative. Health Status Allergies: . Allergic Reactions (Selected) Severity Not Documented Cipro- No reactions were documented. Nonallergic Reactions (Selected) Moderate Augmentin XR- Gi distress. Severity Not Documented Silicone- No reactions were documented. Past Medical/ Family/ Social History Medical history: . Active Migraine headache (346.90): Onset in 1989 at 8 years. Comments: 06/10/2010 [employer] 16:12 [employer] - SANDRINE FULLER RN no known date of onset Resolved Sinusitis (473.9): Onset in 2000 at 19 years. Resolved. Surgical history: . Mantoux test ([id number]) in 2010 at 29 Years. Mantoux test ([id number]) in 2010 at 29 Years. Endometrial sampling (biopsy) with or without endocervical sampling (biopsy), without cervical dilation, any method (separate procedure) (77404) in 2009 at 29 Years. Nasal sinus ([id number]) in 2000 at 20 Years. Comments: 06/10/2010 16:11 - SANDRINE FULLER RN sinus surgeries Tonsillectomy with adenoidectomy ([id number]) in 1994 at 13 Years. Family history: . Liver Mother Comments: 08/16/2010 09:57 - JENNIFER LIN LPN Liver failure Diabetes mellitus Mother Asthma Sister Hypertension Father MEDRANO - Headache Father Physical Examination Vital Signs Vital Signs. 03/18/2012 12:42 [employer] Apical Heart Rate 86 /min SpO2 98 % 03/18/2012 12:31 [employer] Temperature Core 36.9 C Apical Heart Rate 79 /min Respiratory Rate 24 /min HI SpO2 98 % Systolic Blood Pressure 112 mmHg Diastolic Blood Pressure 74 mmHg Mean Arterial Pressure 87 mmHg BP Location Right upper Measurements. 03/18/2012 12:31 [employer] Height 157.5 cm Dosing Weight 84.1 kg Estimated Weight 84.1 kg Weight Source Other: stated SpO2. 03/18/2012 12:42 [employer] SpO2 98 % 03/18/2012 12:31 [employer] SpO2 98 % General: Moderate distress. Skin: Warm and moist. Head: Normocephalic and atraumatic. Neck: Supple, trachea midline and no tenderness. Eye: Pupils are equal, round and reactive to light, extraocular movements are intact, normal conjunctiva and vision unchanged. Ears, nose, mouth and throat: Tympanic membranes clear, oral mucosa moist and no pharyngeal erythemaor exudate. Cardiovascular: Regular rate and rhythm and No murmur. Respiratory: Lungs are clear to auscultation and respirations are non-labored. Chest wall: No tenderness and No deformity. Back: Nontender. Musculoskeletal: Normal ROM Gastrointestinal: Soft, Nontender and Non distended. Genitourinary: No tenderness. Neurological: Alert and oriented to person, place, time, and situation, No focal neurological deficit observed, CN II-XII intact, normal sensory observed, normal motor observed, normal speech observed and normal coordination observed. Lymphatics: No lymphadenopathy. Psychiatric: Cooperative. Medical Decision Making OrdersLaunch Orders, Pharmacy: Toradol (Order Processing): 60 mg, IM, OnceLaunch Orders. Pharmacy: Inapsine (Order Processing): 2.5 mg, IM, Once Reexamination/ Reevaluation Vital signs results included from flowsheet : Vital Signs 03/18/2012 12:42 [employer] Apical Heart Rate 86 /min SpO2 98 % 03/18/2012 12:31 [employer] Temperature Core 36.9 C Apical Heart Rate 79 /min Respiratory Rate 24 /min HI SpO2 98 % Systolic Blood Pressure 112 mmHg Diastolic Blood Pressure 74 mmHg Mean Arterial Pressure 87 mmHg BP Location Right upper (Date Range: 03/17/2012 0:00 [employer] - 03/18/2012 13:22 [employer]) Course: improving. Pain status: decreased. Assessment: exam improved. Impression and Plan Diagnosis Migraine headache 346.90 (Discharge, Emergency medicine, Medical) Plan Disposition: Discharged: to home. Patient was given the following educational materials: HEADACHE, Migraine (Classical), HEADACHE, Migraine (Classical). Follow up with: ANDREW VERA In 5 days 03/23/2012; . Counseled: Patient, Family. Electronically Signed By: RYAN VALLEJO MD On: 03/18/2012 01:24 PM Modified by and Electronically Signed by: RYAN VALLEJO MD On: 03/18/2012 12:55 PM Source: [facility] [employer] Document Id: [id number] [employer] Vj Archibald, RLashawnN. - 03/18/2012 12:31 PM CST ED Triage Assessment ED Triage Assessment Entered On: 03/18/2012 12:37 [employer] Performed On: 03/18/2012 12:31 [employer] by VJ ARCHIBALD RN Reason For Visit Problems(Active) Abnormal Pap Name [...] WAYNE RN, CNP; Vocabulary: ICD-9-CM Migraine headache Name of Problem: Migraine headache ; Onset Date: 04/17/1989 ; Recorder: SANDRINE FULLER RN; Confirmation: Confirmed ; Classification: Medical ; Code: 1231 ; Contributor System: [employer] ; Last Updated: 04/12/2011 17:14 [employer] ; Life Cycle Date: 06/10/2010 ; Life [...] Active ; Responsible Provider: JANAY WAYNE RN, CHARGE WEIGHER; Vocabulary: ICD-9-CM Diagnoses(Active) Migraine, unspecified Date: 03/18/2012 ; Diagnosis Type: Reason For Visit ; Confirmation: Complaint of ; Clinical Dx: Migraine, unspecified ; Classification: Medical ; Clinical Service: Emergency medicine ; Code: ICD-9-CM ; Probability: 0 ; Diagnosis Code: 346.90 Triage Chief Complaint Description : 31 year old female presents to the ED via private vehicle with main c/o migraine that started last night at 1800 and headache has progressively gotton worse, pateint has taken all of her medications and has no releif. Pt. has also had an emesis. Information Given By : Patient Accompanied By : Alone Mode of Arrival ED : Private vehicle Track : Medical Languages : Tajik Patient Informed of Triage Location : Emergency department Vital Signs Assessed : Yes GCS Assessed : Yes Treatments Prior to Arrival : Other: patient took migraine medications when migraine started last evening-no releif VJ ARCHIBALD RN - 03/18/2012 12:31 [employer] Vital Signs Temperature Core : 36.9C(Converted to: 98.4DegF) Apical Heart Rate : 79/min Respiratory Rate : 24/min (HI) Systolic Blood Pressure : 112mmHg Diastolic Blood Pressure : 74mmHg NIBP Mean : 87mmHg BP Location : Right upper extremity SpO2 : 98% Oxygen Therapy : Nasal Cannula Height : 157.5cm(Converted to: 5ft 2inch(es)) Weight Source : Other: stated Dosing Weight : 84.1kg Dosing Weight Conversion to Pounds : 185.020lb Estimated Weight : 84.1kg Estimated Weight Conversion to Pounds : 185.02lb VJ ARCHIBALD RN - 03/18/2012 12:31 [employer] Héctor Coma Eye Opening Response Héctor : Spontaneously Best Verbal Response Héctor : Oriented Best Motor Response Héctor : Obeys simple commands Hope Coma Score : 15 VJ ARCHIBALD RN - 03/18/2012 12:31 [employer] Pain Assessment Pain Symptoms : Yes VJ ARCHIBALD RN - 03/18/2012 12:31 [employer] Pain Pain Assessment Grid Pain 1 Location : Frontal Laterality : Bilateral Intensity : 6 Time Pattern : Constant Onset : Gradual Quality : Throbbing, Other: pounding Pain Radiation : No Aggravating Factors : Light Alleviating Factors : None Associated Symptoms : Nausea Interventions : MD notified VJ ARCHIBALD RN - 03/18/2012 12:31 [employer] ED Physician Notification Time ED Physician Notification Time : 03/18/2012 12:37 [employer] VJ ARCHIBALD RN - 03/18/2012 12:31 [employer] MORALES MORALES Level 1 : No MORALES Level 2 : No MORALES Level 3 : One VJ ARCHIBALD RN - 03/18/2012 12:31 [employer] DCP GENERIC CODE Tracking Acuity : 3 -Urgent Tracking Group : [facility] ED VJ ARCHIBALD RN - 03/18/2012 12:31 [employer] Allergy Latex Reaction : No VJ ARCHIBALD RN - 03/18/2012 12:31 [employer] Allergies (Active) Augmentin XR Estimated Onset Date: Unspecified ; Reactions: GI distress ; Created By: MYRNA EDMONDS MD; Reaction Status: Active ; Category: Drug ; Substance: Augmentin XR ; Type: Intolerance ; Severity: Moderate ; Updated By: MYRNA EDMONDS MD; Source: Patient ; Reviewed Date: 03/18/2012 12:37 [employer] Cipro Estimated Onset Date: Unspecified ; Created By: YASMANY CAVANAUGH RN; Reaction Status: Active ; Category: Drug ; Substance: Cipro ; Type: Allergy ; Updated By: YASMANY CAVANAUGH RN; Reviewed Date: 03/18/2012 12:37 [employer] Silicone Estimated Onset Date: Unspecified ; Created By: JENNIFER FRANCIS RN; Reaction Status: Active ; Category: Drug ; Substance: Silicone ; Type: Sensitivity ; Updated By: JENNIFER FRANCIS RN; Reviewed Date: 03/18/2012 12:37 [employer] ID Screen Drug Resistant Organism : No VJ ARCHIABLD RN - 03/18/2012 12:31 [employer] Immunizations Immunizations Current : Yes Last Tetanus : < 5 years Pneumovac : None Influenza : This year VJ ARCHIBALD RN - 03/18/2012 12:31 [employer] Source: [facility] [employer] Document Id: [id number] [employer] documented in this encounter Miscellaneous Notes Miscellaneous - Vj Archibald R.N. - 03/18/2012 1:25 PM CST Valuables/Belongings Valuables/Belongings Entered On: 03/18/2012 13:25 [employer] Performed On: 03/18/2012 13:25 [employer] by VJ ARCHIBALD RN Valuables/Belongings Valuables/Belongings Grid Valuables with Patient Clothes, Patient Valuables : Jacket, Pants, Shirt, Shoes Electronic Devices : Cell phone VJ ARCHIBALD RN - 03/18/2012 13:25 [employer] Home Medication Disposition : None brought in with patient VJ ARCHIBALD RN - 03/18/2012 13:25 [employer] [facility] Document Id: [id number] [employer] Miscellaneous - Vj Archibald R.N. - 03/18/2012 12:30 PM CST Facility Charge Ticket Facility Charge Ticket Entered On: 03/18/2012 13:27 [employer] Performed On: 03/18/2012 12:30 [employer] by VJ ARCHIBALD RN Facility Charge TVL Level for Facility Charge Ticket : Level 4 Mode of Arrival ED : Private vehicle [place] Mode of Arrival Interpreted : Standard [facility] Process Management : None [facility] Order Management : None 30 Minutes Critical Care : No [place] Nursing Assessment : Triage and 1-2 nursing assessments [facility] Disposition : Discharge [facility] Total Points with Diagnosis Control : 7 [place] Visit Level : 70553 Level 3 Treatments Prior to Arrival : Other: patient took migraine medications when migraine started last evening-no releif VJ ARCHIBALD RN - 03/18/2012 13:27 [employer] Chief Complaint 8.50.02 Reason For Visit Category : Neurology ED Chief Complaint Neurology 8.5 : Headache TVL Calc : 12 TVL for Facility Charge Ticket Dx : Level 4 VJ ARCHIBALD RN - 03/18/2012 13:27 [employer] Source: [facility] [employer] Document Id: [id number] [employer] documented in this encounter Plan of Treatment Not on filedocumented as of this encounter Visit Diagnoses Not on filedocumented in this encounter
--- OUTSIDE RECORDS SUMMARY | 2022-03-16 15:09 | XMS_ITS | Encounter Summary ---
:1980 Author Organization [facility] Address [address] [place] [address] Care Team Providers Name Role Phone Unavailable Primary Care Provider Unavailable Encounter Details Date Type Department Care Team Description 12/06/2011 Hospital Encounter HX [facility] Andrew Vera, LO, C.N.P., D. N.P. [address] [place] [address] (Wo rk) Social History Tobacco [...] Sign Reading Time Taken Comments Blood Pressure 90/58 12/06/2011 11:16 AM CDT Pulse 80 12/06/2011 11:01 AM CDT Temperature - - Respiratory Rate 16 12/06/2011 11:01 AM CDT Oxygen Saturation - - Inhaled Oxygen Concentration - - Weight - - Height - - Body Mass Index - - documented in this encounter Progress Notes Andrew Vera D.N.P., C.N.P. - 12/06/2011 10:54 AM CDT [id number] CHIEF COMPLAINT/REASON FOR VISIT Cough. HISTORY OF PRESENT ILLNESS The patient is a 31-year-old female who presents to the clinic today with a chief complaints of a cough that has been present now for approximately one month duration. She has been placed on amoxicillin and also a azithromycin with no improvement in her cough. She has not been having any fevers or chills, nausea or vomiting but has been having some chest discomfort secondary to the coughing that she has been having. She is also taking some cough medicine to help with the symptoms with very minimal symptom improvement. She denies any known exposure to any kind of viral or bacterial infections that she is aware of though also suffers from allergies and is currently taking her Lashay 180 mg by mouthdaily as this is the only medication she is currently taking. She does report that she was previously given a duration of prednisone which significantly helped with her symptoms. She otherwise denies having any other further concerns or issues at this time. PAST MEDICAL/SURGICAL/FAMILY HISTORY Past medical, surgical, and family history were reviewed. Please see chart. CURRENT MEDICATIONS Reviewed. Please see chart. ALLERGIES Reviewed. Please see chart. PHYSICAL EXAMINATION GENERAL: The patient is alert and oriented x3. HEAD: Normocephalic, atraumatic. PUPILS: Pupils equal, round, and reactive to light and accommodation OROPHARYNX: [place] and moist. TMs: Bilateral tympanic membranes are clear. Bony landmarks noted and within normal limits. NARES: Patent. No erythema or drainage noted. NECK: No anterior or posterior lymphadenopathy noted. HEART: Regular. S1, S2. No murmurs, rubs or gallops noted. LUNGS: Clear to auscultation. No prolonged expiratory phases, wheezing, rales or rhonchi noted. SKIN: Without unusual rashes or suspicious lesions. RADIOLOGY Two views of the chest were obtained and appear to be negative. LABORATORY Complete blood count is currently pending as we will await the eosinophil results. IMPRESSION/REPORT/PLAN Cough. PLAN Discussed the findings with the patient. Presently at this time I do not see that the patient currently has a pneumonia, and therefore I did opt to give her one last round of prednisone to see if this helps with her symptoms and indicated if her symptoms continue follow-up would be warranted for further imaging. The patient stated understanding this plan. She was also excused from today's missed day for work. The patient otherwise denied having any other further concerns or issues. The patient ambulated out of the clinic in no acute distress. Patient Education Ready to learn No apparent learning barriers were identified Learning preferences include listening Explained diagnosis and treatment plan Patient/Child/Caregiver expressed understanding of the content Leslie JacobsNKurtis/F.N.P/suzanne Electronically Signed By: ANDREW VERA DNP, FNP On: 12/08/2011 09:18 AM Source: [facility] MHSDOLBEYNONRADSYS Document Id: [id number] documented in this encounter Miscellaneous Notes Miscellaneous - Andrew Vera D.N.P., C.N.P. - 12/06/2011 3:27 PM CDT Results Notification Document Contains Addenda Addendum by WILLIAM MISHRA LPN on 07 December 2011 07:34:17 CDT Spoke with Carter 12/05/11 at 1700. States, understanding. From: ANDREW VERA DNP, FNP To: WILLIAM MISHRA LPN Sent: 12/06/2011 15:27:53 CDT ! Show up: 12/06/2011 20:27:53 [facility] Subject: Results Notification Actions: Notify patient of results Source: [facility] POWERCHART Document Id: [id number] Electronically signed by Lesley, [facility] Academic Department Chair [id number] at 09/17/2016 8:38 PM CDT Miscellaneous - Andrew Vera, D.N.P., C.N.P. - 12/06/2011 1:14 PM CDT Ambulatory Patient Summary [address] [address] Visit Information Name: CARTER MENSAH Current Date: 12/06/2011 13:14:46 Physicians Attending Provider: ANDREW VERA DNP, FNP [...] Dose Route Frequency Indications/Special Instructions/Comments topiramate (Topamax 100 mg oral tablet) 100 mg Oral once a day topiramate (Topamax 25 mg oral tablet) 25 mg Oral two times a day omega-3 polyunsaturated fatty acids (Fish [...] Upcoming Appointments Date Time Location Reason Provider 12/07/2011 18:00 [facility] COLPOSCOPY Shahram THOMAS, Raquel Larsen Your Goals/Additional instructions: Source: [facility] POWERCHART Document Id: [id number] Miscellaneous - Andrew Vera, Tristin.N.P., C.N.P. - 12/06/2011 1:14 PM CDT Ambulatory Depart Summary [address] [address] Visit Information Name: RODRICKCARTER Visit Date: 12/06/2011 13:14:45 Attending Provider: ANDREW VERA DNP, FNP Primary [...] Dose Route Frequency Indications/Special Instructions/Comments topiramate (Topamax 100 mg oral tablet) 100 mg Oral once a day topiramate (Topamax 25 mg oral tablet) 25 mg Oral two times a day omega-3 polyunsaturated fatty acids (Fish [...] your provider for clarification. Additional Information: Source: [facility] POWERCHART Document Id: [id number] Jose Luis - Aron Bo, L.P.N. - 12/06/2011 11:16 AM CDT Ambulatory Vitals Height Weight Ambulatory Vitals Height Weight Entered On: 12/06/2011 11:16 CDT Performed On: 12/06/2011 11:16 CDT by ARON BO LPN Vitals/Ht/Wt Systolic Blood Pressure : 90mmHg (LOW) Diastolic Blood Pressure : 58mmHg NIBP Mean : 69mmHg ARON BO LPN - 12/06/2011 11:16 CDT Source: [facility] [employer] Document Id: [id number] Aron Childress L.P.N. - 12/06/2011 11:01 AM CDT Adult Manager Strategic Development Intake/History Adult Manager Strategic Development Intake/History Entered On: 12/06/2011 11:09 CDT Performed On: 12/06/2011 11:01 CDT by ARON BO LPN Intake Chief Complaint : Chest hurts. Continued persistant cough and cold. Temperature Core : 36.6C(Converted to: 97.9DegF) Peripheral Pulse Rate : 80/min Respiratory Rate : 16/min Heart Rhythm : Regular Systolic Blood Pressure : 88mmHg (<LLOW) Diastolic Blood Pressure : 60mmHg NIBP Mean : 69mmHg BP Location : Right upper extremity Blood Pressure Cuff Size : Regular SpO2 : 98% Oxygen Therapy : Room air Estimated Weight : 81.5kg(Converted to: 179lb 11oz) ARON BO LPN - 12/06/2011 11:01 CDT Subjective Pain Symptoms : Yes ARON BO LPN - 12/06/2011 11:01 CDT Pain Pain Assessment Grid Pain 1 Location : Chest (Comment: Pain in chest when coughing. Tight feeling [ARON BO LPN - 12/06/2011 11:01 CDT] ) ARON BO LPN - 12/06/2011 11:01 CDT Dependent Habits Tobacco Use/Currently Using : Yes Exposure to Tobacco Smoke : Patient smokes Smoking Status : Current every day smoker ARON BO LPN - 12/06/2011 11:01 CDT Tobacco Use Grid Type : Cigarettes Cigarette Use Packs/Day : 1.0 ARON BO LPN - 12/06/2011 11:01 CDT Alcohol Use : Yes ARON BO LPN - 12/06/2011 11:01 CDT Caffeine Use Grid Caffeine Use : Current Type : Soft drinks Frequency : Daily ARON BO LPN - 12/06/2011 11:01 CDT Recreational Drug Use Grid Drug Use : None ARON BO LPN - 12/06/2011 11:01 CDT Allergy Allergies (Active) Augmentin XR Estimated Onset Date: Unspecified ; Reactions: GI distress ; Created By: MYRNA EDMONDS MD; Reaction Status: Active ; Category: Drug ; Substance: Augmentin XR ; Type: Intolerance ; Severity: Moderate ; Updated By: MYRNA EDMONDS MD; Source: Patient ; Reviewed Date: 12/06/2011 7:47 CDT Cipro Estimated Onset Date: Unspecified ; Created By: YASMANY CAVANAUGH RN; Reaction Status: Active ; Category: Drug ; Substance: Cipro ; Type: Allergy ; Updated By: YASMANY CAVANAUGH RN; Reviewed Date: 12/06/2011 7:47 CDT Silicone Estimated Onset Date: Unspecified ; Created By: JENNIFER FRACNIS RN; Reaction Status: Active ; Category: Drug ; Substance: Silicone ; Type: Sensitivity ; Updated By: JENNIFER FRANCIS RN; Reviewed Date: 12/06/2011 7:47 CDT Source: [employer] Document Id: [id number] Miscellaneous - William Mishra L.P.N. - 12/06/2011 11:00 AM CDT PHQ-9 PHQ-9 Entered On: 12/06/2011 17:38 CDT Performed On: 12/06/2011 11:00 CDT by WILLIAM MISHRA LPN PHQ-9 Little interest or pleasure in doing things : Not at all Feeling down, depressed, or hopeless : Not at all Trouble falling or staying asleep, or sleeping too much : Not at all Feeling tired or having little energy : Not at all Poor appetite or overeating : Not at all Feeling bad about yourself or that you are a failure : Not at all Trouble concentrating on things : Not at all Moving or speaking slowly; restless or fidgety : Not at all Thoughts that you would be better off /hurting self : Not at all PHQ-9 Calculated Score : 0 Problems make work, home, or dealing with others : Not difficult at all WILLIAM MISHRA LPN - 12/06/2011 17:38 CDT Source: [employer] Document Id: [id number] documented in this encounter Plan of Treatment Not on filedocumented as of this encounter Procedures Procedure Name Priority Date/Time Associated Diagnosis Comme nts AUTOMATED Routine 12/06/2011 11:48 AM Results for this DIFFERENTIAL, B CDT procedure ar e in the results section. CBC WITH Routine 12/06/2011 11:48 AM Results for this DIFFERENTIAL, B CDT procedure ar e in the results section. documented in this encounter Results (ABNORMAL) Automated Differential (12/06/2011 11:48 AM CDT) [facility] Method Time Signature Neutro % 52.7 42.0 - POWERCHART 77.0 Lymphocytes % 34.6 23.0 - POWERCHART 44.0 HX [place] % 7.5 2.0 - 18.0 POWERCHART HX Eos % 4.7 1.0 - 5.0 POWERCHART HX Baso % 0.5 0.0 - 1.0 POWERCHART Absolute 5.94 1.70 - POWERCHART Neutrophils 7.00 109L Lymphocytes 3.91 (H) 0.90 - POWERCHART 2.90 X109L Monocytes 0.85 0.30 - POWERCHART 0.90 X109L Eosinophils 0.53 (H) 0.05 - POWERCHART 0.50 X109L Absolute 0.06 0.00 - POWERCHART Basophil 0.30 X109L Specimen Anatomical Collection Method Collection Time Receive d Time (Source) Location / / Volume Laterality Blood 12/06/2011 11:48 12/06/2011 AM CDT 11:48 AM CDT Andrew Vera APRN, C.N.P., D.N.P. LAB BLOOD ADD- ON Performing Organization Address City/State/ZIP Code Phon e Number POWERCHART (ABNORMAL) CBC with Differential (12/06/2011 11:48 AM CDT) [facility] Method Time Signature Leukocytes 11.3 (H) 3.4 - 10.5 POWERCHART X109L Erythrocytes 4.00 3.90 - POWERCHART 5.03 [id number] Hemoglobin 12.7 12.0 - POWERCHART 15.5 GDL Hematocrit 37.1 34.9 - POWERCHART 44.5 MCV 92.8 82.0 - POWERCHART 98.0 FL HX RDW 12.5 11.9 - POWERCHART 15.5 Platelet Count 332 150 - 450 POWERCHART X109L HXDifferential? Auto POWERCHART Specimen (Source) Anatomical Collection Method Collection Time Re ceived Time Location / / Volume Laterality Blood 12/06/2011 11:48 AM CDT Andrew Vera APRN, C.N.P., D.N.P. LAB BLOOD ADD- ON Performing Organization Address City/State/ZIP Code Phon e Number POWERCHART documented in this encounter Visit Diagnoses Not on filedocumented in this encounter
--- OUTSIDE RECORDS SUMMARY | 2022-03-16 15:09 | XMS_ITS | Encounter Summary ---
:1980 Author Organization [facility] Address [address] [place] [address] Care Team Providers Name Role Phone Unavailable Primary Care Provider Unavailable Encounter Details Date Type Department Care Team Description 11/11/2011 Hospital Encounter HX [facility] Andrew Vera, LO, C.N.P., D. N.P. [address] [place] [address] (Wo rk) Social History Tobacco [...] Reading Time Taken Comments Blood Pressure 96/66 11/11/2011 1:36 PM CDT Pulse 84 11/11/2011 1:36 PM CDT Temperature - - Respiratory Rate 16 11/11/2011 1:36 PM CDT Oxygen Saturation - - Inhaled Oxygen Concentration - - Weight 82.2 kg (181 lb 3.5 oz) 11/11/2011 1:36 PM CDT Height 158 cm (5' 2.21) 11/11/2011 1:36 PM CDT Body Mass Index 32.93 11/11/2011 1:36 PM CDT documented in this encounter H&P Notes Andrew Vera D.N.P., C.N.P. - 11/11/2011 12:00 AM CDT [id number] CHIEF COMPLAINT/REASON FOR VISIT 1. Vaginal discharge. 2. Anxiety. 3. Routine physical examination. HISTORY OF PRESENT ILLNESS The patient is a 31-year-old female who presents to the clinic today for a routine physical examination. She reports that she was recently started on Prozac to help with anxiety but states that it was making her more anxious and therefore discontinued the medication. She reports that she is wondering if she can try a different medication. She also reports that she has used Zoloft in the past with no symptom improvement of her anxiety. She also indicates that she suffers from migraines in which the Topamax does help in prevention but reports more so in hot weather and possibly not having increased fluid intake may exacerbate her migraines. She also indicates that she thinks her posture may be a contributing factor and is trying to work on this as well. It is noted that she has had an abnormal Pap in 2009 and she also indicates that she has had some vaginal discharge. She reports that otherwise she has not been tried on anything to help lose weight and states that if she could stop drinking [employer] caffeinated beverages she thinks that this would help. She also reports that she has been having some vaginal discharge and is wondering if there may be a possible infection. She otherwise denies having any other further concerns or issues at this time. PAST MEDICAL HISTORY 1. Abnormal Pap in 2009. 2. Acne vulgaris. 3. Allergies. 4. Anxiety. 5. Migraine headaches. 6. Tobacco use. PAST SURGICAL HISTORY 1. Endometrial biopsy. 2. Nasal surgery for sinuses. 3. Tonsillectomy with adenoidectomy. FAMILY HISTORY 1. Mother with diabetes and liver failure. 2. Father with hypertension and headaches. 3. A sister with asthma. ALLERGIES Augmentin, Cipro and silicone. CURRENT MEDICATIONS 1. Prozac 20 mg by mouth daily. 2. Sprintec control by mouth daily. 3. Zofran 4 mg by mouth every 8 hours as need for nausea. 4. Topamax 25 mg by mouth twice a day. 5. Trazodone 50 mg by mouth at bedtime as needed. 6. Kenalog 0.1% topical lotion twice a day. SYSTEMS REVIEW Negative for constitutional, eyes, ENT, respiratory, skin, CVS, GI, urinary, musculoskeletal, neurologic, endocrine, mental health (with a history of anxiety), and lymphatic. PHYSICAL EXAMINATION OBJECTIVE: The patient is alert and oriented x3. PSYCHIATRIC: The patient's speech is focused and well directed. Affect is appropriate. HEAD: Normocephalic, atraumatic. PUPILS: Pupils equal, round, and reactive to light and accommodation. OROPHARYNX: Trilla and moist. TMs: Bilateral tympanic membranes are clear. Bony landmarks noted and within normal limits. NARES: Patent. No erythema or drainage noted. NECK: No anterior or posterior lymphadenopathy. No thyromegaly noted. HEART: Regular. S1, S2. No murmurs, rubs or gallops noted. LUNGS: Clear to auscultation. No prolonged expiratory phases, wheezing, rales or rhonchi noted. ABDOMEN: Bowel sounds positive in all four quadrants. No hepatosplenomegaly noted. BREASTS: Nontender. No masses or nodules palpated. No axillary lymphadenopathy noted. No nipple discharge noted. : Odor is noted on vaginal examination with yellow thick secretions. Normal female external genitalia. Normal appearing cervix, nonfriable. Uterus and adnexa are unremarkable. The patient denies cervical motion tenderness. PULSES: Radial, pedal, and tibial pulses +2/4. SKIN: Without unusual rashes or suspicious lesions. EXTREMITIES: Equally strong and intact. No lower extremity edema noted. NEUROLOGIC: Upper and lower deep tendon reflexes are brisk at +2. Cranial nerves II-XII are grossly intact and symmetric. The patient ambulates with a steady gait. DIAGNOSTICS 1. Pap is presently pending, 2. MICHELLE was positive for showing moderate clue cells. 3. Lipid panel is presently pending. IMPRESSION/REPORT/PLAN 1. Bacterial vaginosis. 2. Anxiety. 3. Routine physical examination. PLAN 1. BV: The patient was started on Flagyl 500 mg tablets to take one tablet by mouth twice a day for 7 days, #14, with no refills authorized. Advised not to drink alcohol while on this medication. I indicated that with a diagnosis of bacterial vaginosis this should help clear the symptoms as this was discussed with the patient. 2. Anxiety: The patient did complete her KATIA-7 in which she had total score of 14. We will plan on starting her on Lexapro as this may also require prior authorization for insurance company and we will discontinue her Prozac. She is to start Lexapro 10 mg by mouth daily. We will reevaluate her symptoms while she is on the Lexapro. 3. Routine medical examination: Discussed all findings with the patient. We will plan on contacting her with the results of her Pap. The patient stated she understands this plan as she otherwise denied having any other further questions or concerns. The patient ambulated out of the clinic in no acute distress. Patient Education Ready to learn No apparent learning barriers were identified Learning preferences include listening Explained diagnosis and treatment plan Patient/Child/Caregiver expressed understanding of the content Leslie JacobsN.P./F.N.P/taz Electronically Signed By: ANDREW VERA DNP, FNP On: 11/14/2011 07:25 AM Source: [facility] MHSDOLBEYNONRADSYS Document Id: [id number] documented in this encounter Nursing Notes Radha Guajardo L.P.N. - 11/09/2011 3:39 PM CDT Office visit order for 10/03/11 cancelled from [facility] per provider request Electronically Signed By: RADHA GUAJARDO LPN On: 11/09/2011 03:40 PM Source: [facility] POWERCHART Document Id: [id number] documented in this encounter Miscellaneous Notes Miscellaneous - Andrew Vera D.N.P., C.N.P. - 11/11/2011 3:25 PM CDT Ambulatory Patient Summary [address] [address] Visit Information Name: CARTER MENSAH Current Date: 11/11/2011 15:25:31 Physicians Attending Provider: ANDREW VERA DNP, FNP [...] medications. Medication/Strength Dose Route Frequency Indications/Special Instructions/Comments metronidazole (Flagyl 500 mg oral tablet) 500 mg Oral every 12 hours for 7 Days do not drink alcohol escitalopram (Lexapro 10 mg oral tablet) 10 [...] times a day naproxen (naproxen) Oral Pain Attention: If you [...] No Appointments found Your Goals/Additional instructions: Source: [facility] POWERCHART Document Id: [id number] Miscellaneous - Andrew Vera, Tristin.N.P., C.N.P. - 11/11/2011 3:25 PM CDT Ambulatory Depart Summary [address] [address] Visit Information Name: RODRICKCARTER Visit Date: 11/11/2011 15:25:30 Attending Provider: ANDREW VERA DNP, FNP Primary [...] medications. Medication/Strength Dose Route Frequency Indications/Special Instructions/Comments metronidazole (Flagyl 500 mg oral tablet) 500 mg Oral every 12 hours for 7 Days do not drink alcohol escitalopram (Lexapro 10 mg oral tablet) 10 [...] times a day naproxen (naproxen) Oral Pain Attention: If you have any medications at home that are not on this list, DO NOT take them until youcontact your provider for clarification. Additional Information: Source: [facility] POWERCHART Document Id: [id number] Miscellaneous - William Mishra L.PLashawnN. - 11/11/2011 1:43 PM CDT Health Assessment Health Assessment Entered On: 11/11/2011 13:44 CDT Performed On: 11/11/2011 13:43 CDT by WILLIAM MISHRA LPN Health Assessment Complete Health Assessment Complete or Modified : Annual Health Assessment Annual Health Assessment Completed : Yes WILLIAM MISHRA LPN - 11/11/2011 13:43 CDT Nutrition Nutrition Risk Factors by History Adult : None WILLIAM MISHRA LPN - 11/11/2011 13:43 CDT Functional Current Daily Living Assistance : None WILLIAM MISHRA LPN - 11/11/2011 13:43 CDT Dependent Habits Tobacco Use/Currently Using : Yes Exposure to Tobacco Smoke : Patient smokes Smoking Status : Current every day smoker WILLIAM MISHRA LPN - 11/11/2011 13:43 CDT Tobacco Use Grid Type : Cigarettes Cigarette Use Packs/Day : 1.0 WILLIAM MISHRA LPN - 11/11/2011 13:43 CDT Caffeine Use Grid Caffeine Use : Current Type : Soft drinks Frequency : Daily WILLIAM MISHRA LPN - 11/11/2011 13:43 CDT Recreational Drug Use Grid Drug Use : None WILLIAM MISHRA LPN - 11/11/2011 13:43 CDT Psychosocial Domestic Abuse Concerns : None WILLIAM MISHRA LPN - 11/11/2011 13:43 CDT Advance Directive Advanced Directives : No Advance Directive Additional Information : No WILLIAM MISHRA LPN - 11/11/2011 13:43 CDT Educ Needs Learning Style Preference Adult Grid Patient : None Family : None WILLIAM MISHRA LPN - 11/11/2011 13:43 CDT Source: [facility] [employer] Document Id: [id number] Miscellaneous - William Mishra L.P.N. 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[employer] Intake/History Entered On: 11/11/2011 13:43 CDT Performed On: 11/11/2011 13:36 CDT by WILLIAM MISHRA LPN Intake Chief Complaint : General physical, Topamax not working, has been having clumpy bloody discharge, x1.5 wks, Temperature Core : 36.4C(Converted to: 97.5DegF) (LOW) Peripheral Pulse Rate : 84/min Respiratory Rate : 16/min Heart Rhythm : Regular Systolic Blood Pressure : 96mmHg Diastolic Blood Pressure : 66mmHg NIBP Mean : 76mmHg BP Location : Right upper extremity Blood Pressure Cuff Size : Regular Height : 158cm(Converted to: 5ft 2inch(es), 62.20inch(es)) Actual Weight : 82.2kg(Converted to: 181lb 4oz) Weight Source : Standing scale Dosing Weight Clinic : 82.20kg Clinic BSA : 1.90 Body Mass Index : 32.93kg/m2 MISHRAWILLIAM FREEMAN Parvez [facility] - 11/11/2011 13:36 CDT Subjective Pain Symptoms : No WILLIAM MISHRA [facility] - 11/11/2011 13:36 CDT Dependent Habits Tobacco Use/Currently Using : Yes Tobacco Use/Advised to Quit : Yes Exposure to Tobacco Smoke : Patient smokes Smoking Status : Current every day smoker WILLIAM MISHRA [facility] 11/11/2011 13:36 CDT Tobacco Use Grid Type : Cigarettes Cigarette Use Packs/Day : 1.0 WILLIAM MISHRA Parvez [facility] - 11/11/2011 13:36 CDT Alcohol Use : Yes WILLIAM MISHRA [facility] 11/11/2011 13:36 CDT Caffeine Use Grid Caffeine Use : Current Type : Soft drinks Frequency : Daily WILLIAM MISHRA Parvez [facility] 11/11/2011 13:36 CDT Recreational Drug Use Grid Drug Use : None WILLIAM MISHRA [facility] 11/11/2011 13:36 CDT Allergy Allergies (Active) Augmentin XR Estimated Onset Date: Unspecified ; Reactions: GI distress ; Created By: MYRNA EDMONDS MD; Reaction Status: Active ; Category: Drug ; Substance: Augmentin XR ; Type: Intolerance ; Severity: Moderate ; Updated By: MYRNA EDMONDS MD; Source: Patient ; Reviewed Date: 11/11/2011 13:36 CDT Cipro Estimated Onset Date: Unspecified ; Created By: YASMANY CAVANAUGH RN; Reaction Status: Active ; Category: Drug ; Substance: Cipro ; Type: Allergy ; Updated By: YASMANY CAVANAUGH RN; Reviewed Date: 11/11/2011 13:36 CDT Silicone Estimated Onset Date: Unspecified ; Created By: JENNIFER FRANCIS RN; Reaction Status: Active ; Category: Drug ; Substance: Silicone ; Type: Sensitivity ; Updated By: JENNIFER FRANCIS RN; Reviewed Date: 11/11/2011 13:36 CDT Source: [facility] POWERCHART Document Id: [id number] Miscellaneous - William Mishra L.P.NLashawn - 11/11/2011 11:45 AM CDT PHQ-9 PHQ-9 Entered On: 11/14/2011 11:46 CDT Performed On: 11/11/2011 11:45 CDT by WILLIAM MISHRA LPN PHQ-9 Little interest or pleasure in doing things : Not at all Feeling down, depressed, or hopeless : Not at all Trouble falling or staying asleep, or sleeping too much : Nearly every day Feeling tired or having little energy : Nearly every day Poor appetite or overeating : Nearly every day Feeling bad about yourself or that you are a failure : Several days Trouble concentrating on things : Not at all Moving or speaking slowly; restless or fidgety : Not at all Thoughts that you would be better off /hurting self : Not at all PHQ-9 Calculated Score : 10 Problems make work, home, or dealing with others : Not difficult at all WILLIAM MISHRA LPN - 11/14/2011 11:45 CDT Source: [facility] [employer].comCHART Document Id: [id number] documented in this encounter Plan of Treatment Not on filedocumented as of this encounter Procedures Procedure Name Priority Date/Time Associated Comments Diagnosis WET PREP EXAM, Routine 11/11/2011 2:30 PM Results for this UROGENITAL CDT procedure are i n the results section. HXPHYS INTERP OF Routine 11/11/2011 1:45 PM Resul ts for this THIN PREP, PAP CDT procedure are in the results section. THINPREP SCREEN HPV Routine 11/11/2011 1:45 PM Re sults for this REFLEX CDT procedure are i n the results section. documented in this encounter Results (ABNORMAL) Wet Prep Exam, Urogenital (11/11/2011 2:30 PM CDT) Analysis Performed At Patho logist Time Signature HXWet Prep (POSITIVE) POWERCHART HXFinal Trichomonas: POWERCHART None HXFinal Clue Cells: POWERCHART Moderate (10-25/hpf) HXFinal Yeast: None POWERCHART Specimen (Source) Anatomical Collection Method Collection Time Re ceived Time Location / / Volume Laterality Vagina 11/11/2011 2:30 PM CDT Andrew Parvez Vera APRN, CLashawnNLashawnPLashawn, Tristin.N.P. LAB MICROBIOLO GY - GENERAL ORDERABLES Performing Organization Address City/[facility] Code Phon e Number POWERCHART HXPHYS INTERP OF THIN PREP, PAP (11/11/2011 1:45 PM CDT) [facility] Method Time Signature Interpretation Performed POWERCHART Comment: Test Performed by: [facility] [address] [place] [address] Sheet Metal Smith: Pranav morris III, M.D. Specimen Anatomical Collection Method Collection Time Receive d Time (Source) Location / / Volume Laterality Cervix/Endocervi 11/11/2011 1:45 PM 11/13 x CDT 11:09 AM CDT Historical Provider LAB HISTORICAL ORDERS Performing Organization Address [facility] Code Phon e Number POWERCHART Pathology ThinPrep Screen HPV Reflex (11/11/2011 1:45 PM CDT) [facility] Method Time Signature Interpretation [id number] POWERCHART HXThPrep Scrn See Comment POWERCHART [facility] Comment: A. ??ThinPrep Pap Test Screen (Cervical/ Endocervical HPV Reflex): Satisfactory for evaluation. Squamous epithelial cell abnormality Low grade squamous intraepithelial lesio n. ??Consistent with mild dysplasia with associated HPV kothari es (LISSETT 1). HXThPrep Scrn [facility] See Comment [facility] Comment: RESULT: Becki Estes, MADELYN ( ASCP) HXThPrep Scrn [facility] See Comment [facility] Comment: RESULT: 11/16/2011 13:37 Interpreted by: Leon Edwards M.D., PhD. Report electronically signed by Martin Edwards M.D., PhD. Transcribed by: [facility] ??11/16/2011 12:39:23 HX [facility] See Comment POWERCHART Comment: A. ??ThinPrep Pap Test Screen (Cervical/ Endocervical HPV Reflex): Received cloudy specimen in ThinPrep via l. Test Performed by: [facility] [address] [place] [address] Sheet Metal Smith: Pranav morris III, M.D. Specimen (Source) Anatomical Collection Method Collection Time Re ceived Time Location / / Volume Laterality Cervix/Endocervix 11/11/2011 1:45 PM CDT Andrew Vera APRN, C.N.P., D.N.P. LAB PAP PATHDX ORDERABLES Performing Organization Address City/State/ZIP Code Phon e Number POWERCHART documented in this encounter Visit Diagnoses Not on filedocumented in this encounter Additional Health Concerns Assessment Noted Time PHQ-9 Depression Total Score: 10 11/11/2011 11:45 AM C DT documented as of this encounter
--- OUTSIDE RECORDS SUMMARY | 2022-03-16 15:09 | XMS_ITS | Encounter Summary ---
:1980 Author Organization [facility] Address [address] [place] [address] Care Team Providers Name Role Phone Unavailable Primary Care Provider Unavailable Encounter Details Date Type Department Care Team Description 08/04/2011 Hospital Encounter HX [facility] Vineet shetty M.D. [address] [place] [phone] (Wo rk) Social History Tobacco Use [...] Sign Reading Time Taken Comments Blood Pressure 112/56 08/04/2011 7:00 AM CDT Pulse 77 08/04/2011 7:00 AM CDT Temperature - - Respiratory Rate 18 08/04/2011 7:00 AM CDT Oxygen Saturation - - Inhaled Oxygen Concentration - - Weight 83.2 kg (183 lb 6.8 oz) 08/04/2011 7:00 AM CDT Height - - Body Mass Index - - documented in this encounter Progress Notes Vineet Schmidt M.D. - 08/04/2011 12:00 AM CDT [id number] CHIEF COMPLAINT/REASON FOR VISIT Migraine. HISTORY OF PRESENT ILLNESS The patient is a 31-year-old female who developed a migraine last night. She has a history of migraines, and this is a typical one for her. It is accompanied by light and sound sensitivity as well as some nausea. She did vomit at 4:00 a.m.. She has not had any weakness, numbness, tingling, vision changes or neck pain. Typically she takes ibuprofen and Zofran, and she did that both last night and around 4:00 a.m., but they did not help. When these things do not help, she will typically present to the clinic and get a shot of pain medicine and nausea medicine. She reports that her migraines have been coming less frequently because she had been using Topamax but it was making her too sleepy during the day so she has stopped taking it. Her last migraine was in March. CURRENT MEDICATIONS Reconciled. Hydroxyzine 50 mg IM and ketorolac 60 mg IM were given in the clinic today. ALLERGIES Augmentin, Cipro, and silicon. SYSTEMS REVIEW As per history of present illness. There is no runny nose or sore throat. VITAL SIGNS Temperature is 36.8. Pulse is 77 beats per minute. Respiratory rate is 18 breaths per minute. Blood pressure is 112/56. Oxygen saturation is 98% on room air. Weight is 83.2 kg. PHYSICAL EXAMINATION GENERAL: The patient is alert. She does appear to be in pain. She is sitting in a dark room. HEENT: Tympanic membranes are clear bilaterally. Pupils are dilated, equal and reactive. Extraocular movements are intact. The patient does have a few beats of nystagmus in either direction. These eye movements do exacerbate her nausea. Oral mucosa is moist. The patient has symmetric palate rise. NECK: Supple. The patient has some left anterior cervical lymphadenopathy. CARDIOVASCULAR: Regular rate and rhythm. Normal S1, S2. No murmurs, rubs or gallops. LUNGS: Clear to auscultation bilaterally. NEUROLOGIC: Cranial nerves II-XII are intact. When the patient puffs out her cheeks, however, her right cheek does not puff out as much as her left cheek, but there is no other asymmetry noted on facial movements. The patient has symmetric and coordinated finger tapping. She has 5/5 shot dropper strength. Bicipital and patellar reflexes are 2+ bilaterally. ASSESSMENT/PLAN Acute migraine. The patient was given Toradol and Vistaril which normally works for her. We did discuss that taking large doses of ibuprofen and Toradol close together can affect the kidneys. Since she took the ibuprofen three and half hours ago and she is otherwise healthy with a normal creatinine in May, this will likely be okay. The patient voices understanding. A ride is going to come and pick her up. We also referred her back to the neurologist, Dr. Mcdonald, as she is having unwanted side effects with the Topamax and would like to try something different. She last saw Dr. Mcdonald about two years ago. Patient Education Ready to learn No apparent learning barriers were identified Learning preferences include listening Explained diagnosis and treatment plan Patient/Child/Caregiver expressed understanding of the content Vineet Omalley M.D. / Electronically Signed By: VINEET ARCHULETA MD On: 08/15/2011 11:20 AM Modified by and Electronically Signed by: VINEET ARCHULETA MD On: 08/15/2011 11:20 AM [facility] Document Id: [id number] documented in this encounter Miscellaneous Notes Miscellaneous - Vineet Schmidt M.D. - 08/04/2011 7:29 AM CDT Ambulatory Depart Summary [address] [address] Visit Information Name: CARTER LEI Visit Date: 08/04/2011 07:29:32 Attending Provider: VINEET ARCHULETA MD Primary Care Provider: ANDREW VERA [facility], HAND ORNAMENT MAKER CARTER LEI has been given the following [...] 3 months for 1 year (expires 05/10/11) naproxen (naproxen) Oral Pain erythromycin topical (erythromycin topical 2% gel) 1 sonya Topical two times a day as needed for acne Attention: If you have any medications at home that are not on this list, DO NOT take them until youcontact your provider for clarification. Additional Information: Source: [facility] POWERCHART Document Id: [id number] Miscellaneous - Vineet Schmidt M.D. - 08/04/2011 7:29 AM CDT Ambulatory Patient Summary [address] [address] Visit Information Name: CARTER LEI Current Date: 08/04/2011 07:29:33 Physicians Attending Provider: VINEET ARCHULETA MD Primary Care Provider: ANDREW VERA DNP, HAND ORNAMENT MAKER Your Medications Here is a list of [...] 3 months for 1 year (expires 05/10/11) naproxen (naproxen) Oral Pain erythromycin topical (erythromycin [...] No Appointments found Your Goals/Additional instructions: Source: [facility] POWERCHART Document Id: [id number] Miscellaneous - Vineet Schmidt M.D. - 08/04/2011 7:26 AM CDT School or Work Excuse School or Work Excuse Entered On: 08/04/2011 7:26 CDT Performed On: 08/04/2011 7:26 CDT by VINEET ARCHULETA MD School or Work Excuse Date Patient Seen : 08/04/2011 CDT School or Work Restrictions : No Restrictions Date of Return to School/Work Without Restrictions : 08/05/2011 CDT Comment : Please excuse on 08/04/11 due to illness. VINEET ARCHULETA MD - 08/04/2011 7:26 CDT Source: [facility] [employer] Document Id: [id number]!6 Miscellaneous - Delma Gutierrez L.P.N. - 08/04/2011 7:00 AM CDT Adult Program Clerk Intake/History Adult Program Clerk Intake/History Entered On: 08/04/2011 7:04 CDT Performed On: 08/04/2011 7:00 CDT by DELMA GUTIERREZ LPN, RT Intake Chief Complaint : concerned about headache possible migraine since last night. Also vomited at 0400 this am. Temperature Core : 36.8C(Converted to: 98.2DegF) Peripheral Pulse Rate : 77/min Respiratory Rate : 18/min Heart Rhythm : Regular Systolic Blood Pressure : 112mmHg Diastolic Blood Pressure : 56mmHg NIBP Mean : 75mmHg BP Location : Left upper extremity Blood Pressure Cuff Size : Large SpO2 : 98% Oxygen Therapy : Room air Actual Weight : 83.2kg(Converted to: 183lb 7oz) Dosing Weight Clinic : 83.20kg DELMA GUTIERREZ LPN, RT - 08/04/2011 7:00 CDT General Info Information Given By : Patient Preferred Communication Mode : Verbal Languages : Polish DELMA GUTIERREZ LPN, RT - 08/04/2011 7:00 CDT Subjective Pain Symptoms : Yes DELMA GUTIERREZ LPN, RT - 08/04/2011 7:00 CDT Pain Pain Assessment Grid Pain 1 Location : Head Laterality : Bilateral Intensity : 6 Time Pattern : Constant Onset : Gradual Quality : Aching, Pressure, Throbbing Pain Radiation : No Aggravating Factors : Light, Movement, Noise Alleviating Factors : None Associated Symptoms : Nausea Interventions : MD notified DELMA GUTIERREZ LPN, RT - 08/04/2011 7:00 CDT Dependent Habits Tobacco Use/Currently Using : Yes Exposure to Tobacco Smoke : Patient smokes Smoking Status : Smoker GAMA GUTIERREZINO Claire LPN, RT - 08/04/2011 7:00 CDT Tobacco Use Grid Type : Cigarettes Cigarette Use Packs/Day : 1.0 GAMA GUTIERREZINO Claire LPN, RT - 08/04/2011 7:00 CDT Caffeine Use Grid Caffeine Use : Current Type : Soft drinks Frequency : Daily JAMISON DELMA Claire LPN, RT - 08/04/2011 7:00 CDT Recreational Drug Use Grid Drug Use : None GAMA GUTIERREZINO Claire LPN, RT - 08/04/2011 7:00 CDT Allergy Allergies (Active) Augmentin XR Estimated Onset Date: Unspecified ; Created By: GUIDO WALLACE LPN; Reaction Status: Active ; Category: Drug ; Substance: Augmentin XR ; Type: Allergy ; Updated By: GUIDO WALLACE LPN; Reviewed Date: 05/30/2011 12:20 [employer] Cipro Estimated Onset Date: Unspecified ; Created By: YASMANY CAVANAUGH RN; Reaction Status: Active ; Category: Drug ; Substance: Cipro ; Type: Allergy ; Updated By: YASMANY CAVANAUGH RN; Reviewed Date: 05/30/2011 12:20 [employer] Silicone Estimated Onset Date: Unspecified ; Created By: JENNIFER FRANCIS RN; Reaction Status: Active ; Category: Drug ; Substance: Silicone ; Type: Sensitivity ; Updated By: JENNIFER FRANCIS RN; Reviewed Date: 05/30/2011 12:20 FUNCTIONAL TESTER TYPEWRIT[employer] Source: [facility] POWERCHART Document Id: [id number]!52 documented in this encounter Plan of Treatment Not on filedocumented as of this encounter Visit Diagnoses Not on filedocumented in this encounter
--- OUTSIDE RECORDS SUMMARY | 2022-03-16 15:09 | XMS_ITS | Encounter Summary ---
:1980 Author Organization [facility] Address [address] [place] [address] Care Team Providers Name Role Phone Unavailable Primary Care Provider Unavailable Encounter Details Date Type Department Care Team Description 09/28/2011 Hospital Encounter HX [facility] Vineet shetty M.D. [address] [place] [phone] (Wo rk) Social History Tobacco Use [...] Reading Time Taken Comments Blood Pressure 110/58 09/28/2011 4:20 PM CDT Pulse 64 09/28/2011 4:20 PM CDT Temperature - - Respiratory Rate 16 09/28/2011 4:20 PM CDT Oxygen Saturation - - Inhaled Oxygen Concentration - - Weight 83 kg (182 lb 15.7 oz) 09/28/2011 4:20 PM CDT Height - - Body Mass Index - - documented in this encounter Progress Notes Vineet Schmidt M.D. - 09/28/2011 12:00 AM CDT [id number] CHIEF COMPLAINT/REASON FOR VISIT Generalized rash and anxiety. HISTORY OF PRESENT ILLNESS The patient is a 31-year-old female who comes in today with a couple of concerns. She notes that towards the end of last summer she developed a rash that was felt to be related to a sun allergy. She did her best to stay out of the sun the rest of the year and really had no significant problems. Now for the past week or so she has had a similar rash. There are blisters on her chest and she has some blotching to her arms and a little bit on her legs. It is really not changing. It itches a little bit. Benadryl helps for a short amount of time but the rash is really not going away. She has also tried some cortisone cream which has not been helpful. She does use a lot of sunscreen. She also tries to stay out of the sun if she is outside. She also notes a rash to her forehead which is a little bit different and is mainly just some bumps along the hairline. The patient also has some concerns about her anxiety. She was started on Prozac two months ago which helps with the anxiety but caused some insomnia so three weeks ago she was switched to Zoloft. She states that she is still anxious on the Zoloft and continues to have problems with sleep. She takes these medications in the morning, and she has a hard time falling asleep in the evening. She has also been on Topamax for her migraines. She wonders if there are any other medications which could help with her anxiety but not cause her difficulty sleeping. The patient also would like to be restarted on a control pill. She has been on Depo in the past but does not want to continue this. She knows that control and Topamax can cause some alterations to the effectiveness of the medication and she is wondering if there would be any other options besides control pills. She reports that she had a negative test five days ago and has not had sex since. CURRENT MEDICATIONS 1. Topamax 25 mg one tablet twice daily. 2. Zofran 4 mg by mouth every eight hours as needed for nausea. NEW MEDICATIONS 1. Trazodone 50 mg half tablet by mouth at bedtime, may increase to one tablet by mouth at bedtime as needed. 2. Prozac 20 mg by mouth daily. 3. Sprintec one tablet by mouth daily. 4. Kenalog 0.1% lotion applied twice daily for 14 days. ALLERGIES Augmentin XR, Cipro and silicone. SYSTEMS REVIEW As per history of present illness. VITAL SIGNS Temperature is 37 degrees. Pulse is 64 beats per minute. Respiratory rate is 16 breaths per minute. Blood pressure is 110/58. Weight is 83.0 kg. PHYSICAL EXAMINATION GENERAL: The patient is alert and oriented in no acute distress. SKIN: Over the patient's forehead, she has a skin-colored papular rash. It is mainly along the hairline. Over her chest she has erythematous papules and vesicles. Some of them have ruptured and there is a small amount of crusting. There is also some erythematous blotching to her arms more than her legs. This is mainly on the sun-exposed portions of her body. PSYCHIATRIC: The patient's mood is good. Affect is mood congruent. Speech is of regular rate and rhythm. Thought process is goal-directed and linear. There is no evidence of psychosis or hallucinations. IMPRESSION/REPORT/PLAN 1. Photosensitivity. We reviewed that there can be many different causes of sun allergy, and most of them involve treatment with topical steroids. The patient was given a prescription for Kenalog to use to affected areas as needed. I also encouraged her to continue with a good sunscreen and staying out of the sun as able. 2. Generalized anxiety disorder. The patient does not feel like the Zoloft is quite as effective as the Prozac and both have caused the same side effect of insomnia. For this reason she would rather go back on the Prozac and treat her insomnia. We switched her back to Prozac. I advised her to decrease her Zoloft to a half pill twice daily and then stop it altogether. We also discussed that it can take four to six weeks for the medication to reach its full effect. 3. Insomnia. Because the Prozac improved the patient's symptoms, she would rather stay with it and instead treat her insomnia. We discussed different treatment options. Since she is a single mom, we went with the trazodone so that hopefully she will not have problems being aroused in the middle the night if necessary. She will start with 25 mg and increase to 50 if needed. 4. Contraceptive management. The patient had a negative test less than one week ago and has not had sex since. We discussed that she could either wait until her next period to start the pills or she could start them today. I did request records from [place] to confirm this negative test. The patient notes she will likely start it today since she has not had a period since being off of the Depo and she does not know when that will occur. We discussed that these medications can be less effective in the setting of Topamax, but typically the dose of Topamax has to be higher than what she is on for it to have a real effect. We also discussed other options such as the ParaGard which is nonhormonal, but the patient states she already has heavy and crampy periods so that would not be a good option. We briefly discussed the NuvaRing and patch, but the patient is not interested in either of those. She does not want a longer acting control method such as the Implanon or IUD because she is considering getting in the next few years. Patient Education Ready to learn No apparent learning barriers were identified Learning preferences include listening Explained diagnosis and treatment plan Patient/Child/Caregiver expressed understanding of the content Vineet Omalley M.D. /mckinley Electronically Signed By: VINEET ARCHULETA MD On: 10/06/2011 05:33 PM Modified by and Electronically Signed by: VINEET ARCHULETA MD On: 10/06/2011 05:33 PM Source: [facility] MHSDOLBEYNONRADSYS Document Id: [id number] documented in this encounter Miscellaneous Notes Miscellaneous - Laine Diaz LLashawnP.N. - 09/30/2011 11:29 AM CDT Quality Measures Quality Measures Entered On: 09/30/2011 11:29 CDT Performed On: 09/30/2011 11:29 CDT by LAINE DIAZ LPN Depression PHQ-9 Score : 3 LAINE DIAZ LPN - 09/30/2011 11:29 CDT Source: [facility] [employer] Document Id: [id number] Miscellaneous - Laine Diaz L.P.N. - 09/30/2011 11:29 AM CDT PHQ-9 PHQ-9 Entered On: 09/30/2011 11:30 CDT Performed On: 09/30/2011 11:29 CDT by LAINE DIAZ LPN PHQ-9 Little interest or pleasure in doing things : Not at all Feeling down, depressed, or hopeless : Not at all Trouble falling or staying asleep, or sleeping too much : More than half the days Feeling tired or having little energy [...] at all PHQ-9 Calculated Score : 3 LAINE DIAZ LPN - 09/30/2011 11:29 CDT Source: [facility] POWERCHART Document Id: [id number] Miscellaneous - Vineet Schmidt M.D. - 09/28/2011 4:57 PM CDT Ambulatory Patient Summary [address] [address] Visit Information Name: CARTER LEI Current Date: 09/28/2011 16:57:34 Physicians Attending Provider: VINEET ARCHULETA MD Primary Care Provider: ANDREW VREA [facility], MANAGER [employer] Your Medications Here is a list of your medications. It is important to take your medications as directed. Use a pillbox or chart to help remind you to take your medications. Please let your doctor or nurse know if you have problems taking your medications. Medication/Strength Dose Route Frequency Indications/Special Instructions/Comments norgestimate-ethinyl estradiol (Sprintec 0.25 mg-35 mcg oral [...] to 1 pill at bedtime as needed fluoxetine (Prozac 20 mg oral capsule) 20 mg Oral once a day triamcinolone topical (Kenalog 0.1% topical lotion) 1 [...] No Appointments found Your Goals/Additional instructions: Source: [facility] POWERCHART Document Id: [id number] Miscellaneous - Vineet Schmidt M.D. - 09/28/2011 4:57 PM CDT Ambulatory Depart Summary [address] [address] Visit Information Name: CARTER LEI ELEAZAR Visit Date: 09/28/2011 16:57:33 Attending Provider: VINEET ARCHULETA MD Primary Care Provider: ANDREW VERA DNP, MANAGER [employer] CARTER LEI ELEAZAR has been given the following list of medications: Your Medications It is important to take your medications as directed. Use a pill box or chart to help remind you to take your medications. Please let your doctor or nurse know if you have problems taking your medications. Medication/Strength Dose Route Frequency Indications/Special Instructions/Comments norgestimate-ethinyl estradiol (Sprintec 0.25 mg-35 mcg oral [...] to 1 pill at bedtime as needed fluoxetine (Prozac 20 mg oral capsule) 20 mg Oral once a day triamcinolone topical (Kenalog 0.1% topical lotion) 1 sonya Topical two times a day topiramate (Topamax 25 mg oral tablet) 25 mg Oral two times a day naproxen (naproxen) Oral Pain Attention: If you have any medications at home that are not on this list, DO NOT take them until youcontact your provider for clarification. Additional Information: Source: [facility] POWERCHART Document Id: [id number] Miscellaneous - Guido Merchant LLashawnPLashawnN. 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 Intake/History Adult Brickmason Helper Intake/History Entered On: 09/28/2011 16:22 CDT Performed On: 09/28/2011 16:20 CDT by GUIDO MERCHANT LPN Intake Chief Complaint : generalized rash started new med 3 weeks ago discuss anxiey Onset of Symptoms : 4 days Temperature Core : 37.0C(Converted to: 98.6DegF) Peripheral Pulse Rate : 64/min Respiratory Rate : 16/min Systolic Blood Pressure : 110mmHg Diastolic Blood Pressure : 58mmHg NIBP Mean : 75mmHg BP Location : Right upper extremity Blood Pressure Cuff Size : Regular Actual Weight : 83.0kg(Converted to: 183lb 0oz) Weight Source : Standing scale Dosing Weight Clinic : 83.00kg GUIDO MERCHANT LPN - 09/28/2011 16:20 CDT Subjective Pain Symptoms : No GUIDO MERCHANT LPN - 09/28/2011 16:20 CDT Dependent Habits Tobacco Use/Currently Using : Yes Tobacco Use/Advised to Quit : Yes Exposure to Tobacco Smoke : Patient smokes Smoking Status : Current every day smoker GUIDO MERCHANT LPN - 09/28/2011 16:20 CDT Tobacco Use Grid Type : Cigarettes Cigarette Use Packs/Day : 1.0 GUIDO MERCHANT LPN - 09/28/2011 16:20 CDT Caffeine Use Grid Caffeine Use : Current Type : Soft drinks Frequency : Daily GUIDO MERCHANT LPN - 09/28/2011 16:20 CDT Recreational Drug Use Grid Drug Use : None GUIDO MERCHANT LPN - 09/28/2011 16:20 CDT Allergy Allergies (Active) Augmentin XR Estimated Onset Date: Unspecified ; Reactions: GI distress ; Created By: MYRNA EDMONDS MD; Reaction Status: Active ; Category: Drug ; Substance: Augmentin XR ; Type: Intolerance ; Severity: Moderate ; Updated By: MYRNA EDMONDS MD; Source: Patient ; Reviewed Date: 08/22/2011 13:49 CDT Cipro Estimated Onset Date: Unspecified ; Created By: YASMANY CAVANAUGH RN; Reaction Status: Active ; Category: Drug ; Substance: Cipro ; Type: Allergy ; Updated By: YASMANY CAVANAUGH RN; Reviewed Date: 08/22/2011 13:49 CDT Silicone Estimated Onset Date: Unspecified ; Created By: JENNIFER FRANCIS RN; Reaction Status: Active ; Category: Drug ; Substance: Silicone ; Type: Sensitivity ; Updated By: JENNIFER FRANCIS RN; Reviewed Date: 08/22/2011 13:49 CDT Source: [facility] [employer] Document Id: [id number] documented in this encounter Plan of Treatment Not on filedocumented as of this encounter Visit Diagnoses Not on filedocumented in this encounter Additional Health Concerns Assessment Noted Time PHQ-9 Depression Total Score: 3 09/30/2011 11:29 AM CD T documented as of this encounter
--- OUTSIDE RECORDS SUMMARY | 2022-03-16 15:09 | XMS_ITS | Encounter Summary ---
:1980 Author Organization [facility] Address [address] [place] [address] Care Team Providers Name Role Phone Unavailable Primary Care Provider Unavailable Encounter Details Date Type Department Care Team Description 12/24/2011 Hospital Encounter [facility]X [facility] [facility] ED Angel Lyon M.D. [address] [place], [place] [address] (Wo rk) Social History [...] Sign Reading Time Taken Comments Blood Pressure 118/75 12/24/2011 1:15 AM CDT Pulse 93 12/24/2011 1:15 AM CDT Temperature - - Respiratory Rate 18 12/24/2011 1:15 AM CDT Oxygen Saturation - - Inhaled Oxygen Concentration - - Weight - - Height 157 cm (5' 1.81) 12/24/2011 1:15 AM CDT Body Mass Index - - documented in this encounter Discharge Summaries Toño Powell, R.N. - 12/24/2011 2:19 AM CDT ED Depart Summary [facility] Emergency Department Clinical Discharge Summary PERSON INFORMATION Name CARTER LEI Age 31 Years 1980 12:00 AM Sex Female Language Monegasque PCP ANDREW VERA DNP, MARBLE MASON Marital Status Single N [id number] Visit Id [facility]# [id number] Visit Reason POSSIBLE STREP THROAT Specialty Enc Type Emergency Med Service Emergency Medicine Referred by Track Group [facility] ED Discharge 12/24/2011 2:19 AM Tracking Id [id number] Checkout 12/24/2011 2:19 AM Checkin 12/24/2011 1:12 AM Acuity 5 -Non Urgent Dispo Type * Discharged to Home or Self Care Arrival 12/24/2011 1:12 AM Reg Status LOS 000 01:07 Address: [address] [place] [phone] Comment: PROVIDER INFORMATION Provider Role Provider Contact Time TOÑO POWELL LANGUAGE TRANSLATOR Nurse 12/24/11 01:15 ROSY LYON MD ED Provider 12/24/11 01:35 DIAGNOSIS Pharyngitis (acute) Comment: PATIENT EDUCATION INFORMATION Instructions: PHARYNGITIS, Report Pending Follow up: With: Address: When: ANDREW VERA [address] [place] [address] Business (1) Within As Needed Comments: Source: [facility] POWERCHART Document Id: [id number] Toño Powell R.N. - 12/24/2011 2:19 AM CDT ED Discharge Instructions [address] [address] Name: CARTER LEI Date of : 1980 12:00 AM Visit Date: 12/24/2011 1:12 AM Address: [address] [place] [phone] Primary Care Provider: ANDREW VERA DNP, MARBLE MASON IMPORTANT: [facility] in [place] would like to thank you for allowing us to assist you with your healthcare needs. The following includes patient education materials and informationregarding your injury/illness. Chief Complaint: POSSIBLE STREP THROAT Follow-Up Instructions: With: Address: When: ANDREW VERA [address] [place] [id number] Business (1) Within As Needed Comments: Patient Education Materials: [id number] PHARYNGITIS (Sore Throat),REPORT PENDING Pharyngitis (sore throat) is often due to a virus, but can also be caused by the strep bacteria. This is called strep throat. Both viral and strep infection can cause throat pain that is worse when swallowing, aching all over with headache and fever. Both types of infections are contagious. They may be spread by coughing, kissing or touching others after touching your mouth or nose. A test has been done to determine whether or not you have strep throat. Dr. Lyon will call you if your test is POSITIVE. If it is positive for strep infection you will need to take antibiotics. A prescription can be called in to your pharmacy at that time. If the test is negative, you probably have a viral pharyngitis and it will not require antibiotic treatment. HOME CARE: If your symptoms are severe, rest at home for the first 2-3 days. If you are told that your test is positive for strep, you should be off work and school for the first two days of antibiotic treatment.After that, you will no longer be contagious. Children: Use acetaminophen (Tylenol) for fever, fussiness or discomfort. In infants over six monthsof age, you may use ibuprofen (Children's Motrin) instead of Tylenol. [NOTE: If your child has chronic liver or kidney disease or ever had a stomach ulcer or GI bleeding, talk with your doctor before using these medicines.] (Aspirin should never be used in anyone under 18 years of age who is ill with a fever. It may cause severe liver damage.) Adults: You may use acetaminophen (Tylenol) or ibuprofen (Motrin, Advil) to control pain or fever, unless another medicine was prescribed for this. [NOTE: If you have chronic liver or kidney disease orever had a stomach ulcer or GI bleeding, talk with your doctor before using these medicines.] Throat lozenges or sprays (Chloraseptic and others), or gargling with warm salt water will reduce throat pain. Dissolve 1/2 teaspoon of salt in 1 glass of warm water. This is especially useful just before meals. FOLLOW UP with your doctor as advised by our staff if you are not [...] breathing ?? Muffled voice New rash ?? [id number] [employer], [address] [place] [address], [place] [address]. All rights reserved. This information is not intended as a substitute for professional medical care. Always follow your healthcare professional's instructions. ED Tests and Procedures: Order Status Strep A Screen Rapid Completed Rapid Strep Confirmation Ordered Discharge Prescriptions & Home Medications: Medication/Strength Dose Route Frequency Indications/Special Instructions/Comments hydrocodone-acetaminophen (Vicodin 5 mg-500 mg oral tablet) 1 to 2 tablets Oral every 6 hours as needed for Pain No more than 4,000mg acetaminophen/24hrs topiramate (Topamax 50 mg oral tablet) 50 mg Oral two times a day take in AM with 100mg tab to [id number] & take 1 tab in PM ( [...] bedtime as needed naproxen (naproxen) Oral Pain Comment: Attention: If [...] arrange a ride home with a responsible democrat. RODRICK Ace GINA MARIE , or responsible democrat have received this information and my questions have been answered. I have discussed any challenges I see with this plan with the nurse or physician. Patient Signature or Responsible Green Party/Relationship Date/Time Provider Signature Date/Time Medication Reconciliation: Reconciliation is a process of [...] new suggestions. Please follow the instructions above carefull y. If you are being transferred to another [...] arrange a ride home with a responsible democrat. RODRICK Ace GINA MARIE , or responsible democrat have received this information and my questions have been answered. I have discussed any challenges I see with this plan with the nurse or physician. Patient Signature or Responsible Green Party/Relationship Date/Time Provider Signature Date/Time This document has images extracted. Please consider using [email or web address] for all your patient education needs. Source: [facility] [employer] GroupCHART Document Id: [id number] documented in this encounter Nursing Notes Toño Powell R.N. - 12/24/2011 2:18 AM CDT ED Pain Assessment ED Pain Assessment Entered On: 12/24/2011 2:18 CDT Performed On: 12/24/2011 2:18 CDT by TOÑO POWELL RN Pain Assessment Pain Symptoms : Yes TOÑO POWELL RN - 12/24/2011 2:18 CDT Source: [facility] [employer] Document Id: [id number] Toño Powell R.N. - 12/24/2011 1:20 AM CDT ED Primary Assessment ED Primary Assessment Entered On: 12/24/2011 1:22 CDT Performed On: 12/24/2011 1:20 CDT by TOÑO POWELL RN Reason For Visit Problems(Active) Abnormal Pap Name of Problem: Abnormal Pap ; Onset Date: 10/21/2009 ; Recorder: JENNIFER LIN LPN; Confirmation: Confirmed ; Classification: Nursing ; Code: 1231 ; Contributor System: [employer]Links[employer]are[employer] ; Last Updated: 08/16/2010 9:50 CDT ; Life Cycle Date: 08/16/2010 ; Life Cycle Status: Active ; Responsible Provider: JENNIFER LIN LPN; Vocabulary: ICD-9-CM Acne vulgaris Name of Problem: Acne vulgaris ; Recorder: ALLEN BEDOYA RN; Confirmation: Confirmed ;Classification: Nursing ; Code: 1231 ; Contributor System: [employer]areChart ; Last Updated: 12/17/2010 11:55 CDT ; [...] Medical ; Code: 1231 ; Contributor System: [employer] ; Last Updated: 04/12/2011 17:14 QUALITY ASSURANCE REPRESENTATIVE ; Life Cycle Date: 06/10/2010 ; Life Cycle Status: Active ; Responsible Provider: SANDRINE FULLER RN; Vocabulary: ICD-9-CM ; Comments: 06/10/2010 16:12 - SANDRINE FULLER RN no known date of onset Examination or Test, Positive Result Name of Problem: Examination or Test, Positive Result ; Onset Date: 03/31/2011 ; Recorder: ANDREW VERA DNP, FNP; Confirmation: Confirmed; Classification: Medical ; Code: 1231 ; Last Updated: 03/31/2011 16:32 QUALITY ASSURANCE REPRESENTATIVE ; Life Cycle Status: Active ; Responsible Provider: ANDREW VERA DNP, FNP; Vocabulary: ICD-9-CM Tobacco Use Disorder Name of Problem: Tobacco Use Disorder ; Onset Date: 08/22/2011 ; Recorder: JANAY WAYNE RN, CNP; Confirmation: Confirmed ; Classification: Medical ; Code: 1231 ; Last Updated: 08/22/2011 13:54 CDT ; Life Cycle Status: Active ; Responsible Provider: JANAY WAYNE RN, CNP; Vocabulary: ICD-9-CM Triage Information Given By : Patient Accompanied By : Mother Mode of Arrival ED : Private vehicle, Ambulatory Track : Medical Languages : Monegasque THEO POWELLVickie Quintero RN - 12/24/2011 1:20 CDT Pain Assessment Pain Symptoms : Yes THEO POWELLVickie Quintero RN - 12/24/2011 1:20 CDT Allergy Allergies (Active) Augmentin XR Estimated Onset Date: Unspecified ; Reactions: GI distress ; Created By: MYRNA EDMONDS MD; Reaction Status: Active ; Category: Drug ; Substance: Augmentin XR ; Type: Intolerance ; Severity: Moderate ; Updated By: MYRNA EDMONDS MD; Source: Patient ; Reviewed Date: 12/22/2011 8:01 CDT Cipro Estimated Onset Date: Unspecified ; Created By: YASMANY CAVANAUGH RN; Reaction Status: Active ; Category: Drug ; Substance: Cipro ; Type: Allergy ; Updated By: YASMANY CAVANAUGH RN; Reviewed Date: 12/22/2011 8:01 CDT Silicone Estimated Onset Date: Unspecified ; Created By: JENNIFER FRANCIS RN; Reaction Status: Active ; Category: Drug ; Substance: Silicone ; Type: Sensitivity ; Updated By: JENNIFER FRANCIS RN; Reviewed Date: 12/22/2011 8:01 CDT Respiratory Airway : Patent Respirations : Unlabored Respiratory Pattern : Regular Oxygen Therapy : Room air THEO POWELLVickie Quintero RN - 12/24/2011 1:20 CDT Cardiovascular Heart Rhythm : Regular Skin Color : [place] Skin Description : Dry Skin Temperature : Warm THEO POWELLVickie Quintero RN - 12/24/2011 1:20 CDT Neurological Last Well Time Known : No Last Well Time Not Known : mom states sick all the time Level of Consciousness : Alert Orientation : Oriented x 3 Characteristics of Speech : Clear Neuro Patient Stated Symptoms : None Gait : Steady Swallowing Difficulty/Aspiration Risk : None Loss of Consciousness : No THEO POWELLVickie Quintero RN - 12/24/2011 1:20 CDT ED Psychosocial Affect/Behavior : Calm, Cooperative, Appropriate Domestic Abuse Concerns : None Emotional Support Available : Yes POWELLBRIINIMA Quintero RN - 12/24/2011 1:20 CDT Gastrointestinal Nutrition ED : Adequate ANDRE BRIINIMA Quintero RN - 12/24/2011 1:20 CDT Musculoskeletal Fall Prevention Education Provided : TOÑO SCOTT RN - 12/24/2011 1:20 CDT Social Habits Tobacco Use/Currently Using : Yes Exposure to Tobacco Smoke : Patient smokes Smoking Status : Current every day smoker TOÑO POWELL RN - 12/24/2011 1:20 CDT Tobacco Use Grid Type : Cigarettes Cigarette Use Packs/Day : 1.0 Last Use : today Comments (Comment: refused smoking cessation information [TOÑO POWELL RN - 12/24/2011 1:20 CDT] ) TOÑO POWELL RN - 12/24/2011 1:20 CDT Alcohol Use Grid Alcohol Use : Other: occasional No TOÑO POWELL RN - 12/24/2011 1:20 CDT TOÑO POWELL RN - 12/24/2011 1:20 CDT Recreational Drug Use Grid Drug Use : None TOÑO POWELL RN - 12/24/2011 1:20 CDT Source: [facility] [employer] Document Id: [id number] documented in this encounter ED Notes Rosy Lyon M.D. - 12/24/2011 2:50 AM CDT sore throat Patient: CARTER LEI Age: 31 years Sex: Female : 1980 Author: ROSY LYON MD Attachments: None Associated Diagnosis: Viral pharyngitis 462 Basic Information Time seen: Date 12/24/2011. History source: Patient, family. Arrival mode: Walking. History limitation: None. Additional information: Chief Complaint from Nursing Triage Note : Chief Complaint Description. 12/24/2011 1:15 CDT Chief Complaint Description sore throat for 2 days, taken ibuprofen and sudafed. History of Present Illness Very sore throat, fever, can't sleep. Sure she has strep. 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 Smoker with allergies. Has been on both amoxicillin and zithromax in the last 6 weeks for respiratory illnesses, as well as two bursts of steroids. The patient presents with throat pain. The onset was 2 days ago. The course/duration of symptoms is worsening. Location: Bilateral posterior pharynx. The character of symptoms is pain. The degree at present is severe. The exacerbating factor is swallowing. The relieving factor is none. Risk factors consist of smoking. Prior episodes: occasional. Associated symptoms: fever, difficulty swallowing and ear pain. Review of Systems Constitutional symptoms: Fever and chills. Skin symptoms: No rash. ENMT symptoms: Ear pain, sore throat and nasal congestion. Respiratory symptoms: Cough. Gastrointestinal symptoms: No nausea or no vomiting. Psychiatric symptoms: Anxiety. Allergy/immunologic symptoms: Seasonal allergies. Health Status Allergies: . Allergic Reactions (Selected) Severity Not Documented Cipro- No reactions were documented. Nonallergic Reactions (Selected) Moderate Augmentin XR- Gi distress. Severity Not Documented Silicone- No reactions were documented. Medications: Per nurse's notes. Immunizations: Include Immunizations. Immunizations reviewed. Past Medical/ Family/ Social History Medical history: . Active Migraine headache (346.90): Onset in 1989 at 8 years. Comments: 06/10/2010 QUALITY ASSURANCE REPRESENTATIVE 16:12 QUALITY ASSURANCE REPRESENTATIVE - SANDRINE FULLER RN no known date of onset Resolved Sinusitis (473.9): Onset in 2000 at 19 years. Resolved. Surgical history: . Endometrial sampling (biopsy) with or without endocervical sampling (biopsy), without cervical dilation, any method (separate procedure) (76525) in 2009 at 29 Years. Nasal sinus ([id number]) in 2000 at 20 Years. Comments: 06/10/2010 16:11 - SANDRINE FULLER RN sinus surgeries Tonsillectomy with adenoidectomy (33278073) in 1994 at 13 Years. Family history: . Liver Mother Comments: 08/16/2010 09:57 - JENNIFER LIN LPN Liver failure Diabetes mellitus Mother Asthma Sister Hypertension Father MEDRANO - Headache Father Social history: Reviewed as documented in chart. Problem list: . All Problems Acne vulgaris / 706.1 / Confirmed Abnormal Pap / 795.00 / Confirmed Examination or Test, Positive Result / V72.42 / Confirmed Anxiety State, Unspecified / 300.00 / Confirmed Allergic rhinitis, unspecified / 477.9 / Confirmed Tobacco Use Disorder / 305.1 / Confirmed Migraine headache / 346.90 / Confirmed Resolved: Sinusitis / 473.9 Physical Examination Vital Signs Per nurse's notes. General: Alert and no acute distress. Skin: Warm and dry. Head: Normocephalic. Neck: Supple. Eye: Normal conjunctiva. Ears, nose, mouth and throat: Tympanic membranes clear, oral mucosa moist and no pharyngeal erythemaor exudate. Respiratory: Lungs are clear to auscultation and respirations are non-labored. Cardiovascular: Regular rate and rhythm. Back: Normal alignment. Lymphatics: No lymphadenopathy. Psychiatric: Cooperative. Medical Decision Making Differential Diagnosis:Viral pharyngitis, streptococcal pharyngitis. Documents reviewed:Prior records. OrdersVICODIN 5/500 two po now.. Results review:Rapid strep NEGATIVE.. Impression and Plan Diagnosis Viral pharyngitis 462 (Discharge, Emergency medicine, Medical) Plan Condition: Stable. Disposition: Discharged: to home. Prescriptions: VICODIN 5/500 #24 prescription given. Patient was given the following educational materials: PHARYNGITIS, Report Pending. Follow up with: ANDREW Tovar As Needed. Counseled: Patient, Family, Regarding diagnosis, Regarding diagnostic results, Regarding treatment plan, Patient indicated understanding of instructions. Electronically Signed By: ROSY LYON MD On: 12/24/2011 02:58 AM Source: [employer] Document Id: [id number]} Toño Powell R.N. - 12/24/2011 2:18 AM CDT ED Disposition Summary ED Disposition Summary Entered On: 12/24/2011 2:18 CDT Performed On: 12/24/2011 2:18 CDT by TOÑO POWELL LANGUAGE TRANSLATOR Disposition Summary Accompanied By : Mother Mode of Discharge : Ambulatory Transportation : Private vehicle Discharge From ED With : Home Med List Printed Discharge Instructions Given to Patient : Yes Patient Status at Discharge from ED : Unchanged TOÑO POWELL RN - 12/24/2011 2:18 CDT Source: [employer] Document Id: [id number] Toño Powell R.N. - 12/24/2011 1:15 AM CDT ED Triage Assessment ED Triage Assessment Entered On: 12/24/2011 1:20 CDT Performed On: 12/24/2011 1:15 CDT by TOÑO POWELL RN Reason For Visit Problems(Active) Abnormal Pap Name of Problem: Abnormal Pap ; Onset Date: 10/21/2009 ; Recorder: JENNIFER LIN LPN; Confirmation: Confirmed ; Classification: Nursing ; Code: 1231 ; Contributor System: [employer] ; Last Updated: 08/16/2010 9:50 CDT ; Life Cycle Date: 08/16/2010 ; Life Cycle Status: Active ; Responsible Provider: JENNIFER LIN LPN; Vocabulary: ICD-9-CM Acne vulgaris Name of Problem: Acne vulgaris ; Recorder: ALLEN BEDOYA RN; Confirmation: Confirmed ;Classification: Nursing ; Code: 1231 ; Contributor System: [employer] ; Last Updated: 12/17/2010 11:55 CDT ; [...] Medical ; Code: 1231 ; Contributor System: [employer] ; Last Updated: 04/12/2011 17:14 QUALITY ASSURANCE REPRESENTATIVE ; Life Cycle Date: 06/10/2010 ; Life Cycle Status: Active ; Responsible Provider: SANDRINE FULLER RN; Vocabulary: ICD-9-CM ; Comments: 06/10/2010 16:12 - SANDRINE FULLER RN no known date of onset Examination or Test, Positive Result Name of Problem: Examination or Test, Positive Result ; Onset Date: 03/31/2011 ; Recorder: ANDREW VERA DNP, FNP; Confirmation: Confirmed; Classification: Medical ; Code: 1231 ; Last Updated: 03/31/2011 16:32 QUALITY ASSURANCE REPRESENTATIVE ; Life Cycle Status: Active ; Responsible Provider: ANDREW VERA DNP, FNP; Vocabulary: ICD-9-CM Tobacco Use Disorder Name of Problem: Tobacco Use Disorder ; Onset Date: 08/22/2011 ; Recorder: JANAY WAYNE RN, CNP; Confirmation: Confirmed ; Classification: Medical ; Code: 1231 ; Last Updated: 08/22/2011 13:54 CDT ; Life Cycle Status: Active ; Responsible Provider: JANAY WAYNE RN, CNP; Vocabulary: ICD-9-CM Triage Chief Complaint Description : sore throat for 2 days, taken ibuprofen and sudafed. Information Given By : Patient Accompanied By : Mother Mode of Arrival ED : Private vehicle, Ambulatory Track : Medical Languages : Monegasque Vital Signs Assessed : Yes TOÑO POWELL RN - 12/24/2011 1:15 CDT Vital Signs Temperature Core : 36.0C(Converted to: 96.8DegF) (LOW) Peripheral Pulse Rate : 93/min Respiratory Rate : 18/min Systolic Blood Pressure : 118mmHg Diastolic Blood Pressure : 75mmHg NIBP Mean : 89mmHg BP Location : Left upper extremity SpO2 : 94% Oxygen Saturation Monitoring Frequency : Intermittent Oxygen Therapy : Room air Height : 157cm(Converted to: 5ft 2inch(es)) Height Source : Estimated Estimated Weight : 84kg Estimated Weight Conversion to Pounds : 184.80lb TOÑO POWELL RN - 12/24/2011 1:15 CDT Pain Assessment Pain Symptoms : Yes TOÑO POWELL RN - 12/24/2011 1:15 CDT Pain Pain Assessment Grid Pain 1 Location : Throat Laterality : Bilateral Intensity : 8 Time Pattern : Constant Onset : Gradual Quality : Other: just hurts Pain Radiation : No Interventions : Medications (Comment: took ibuprofen an hour ago and sudafed [TOÑO POWELL RN - 12/24/2011 1:15 CDT] ) POWELLTOÑO VALDEZ RN - 12/24/2011 1:15 CDT ED Physician Notification Time ED Physician Notification Time : 12/24/2011 1:19 CDT POWELLTOÑO VALDEZ RN - 12/24/2011 1:15 CDT MORALES MORALES Level 1 : No MORALES Level 2 : No MORALES Level 3 : One POWELLTOÑO VALDEZ RN - 12/24/2011 1:15 CDT DCP GENERIC CODE Tracking Acuity : 5 -Non Urgent Tracking Group : [facility] ED POWELLTOÑO VALDEZ RN - 12/24/2011 1:15 CDT Allergy Allergies (Active) Augmentin XR Estimated Onset Date: Unspecified ; Reactions: GI distress ; Created By: MYRNA EDMONDS MD; Reaction Status: Active ; Category: Drug ; Substance: Augmentin XR ; Type: Intolerance ; Severity: Moderate ; Updated By: MYRNA EDMONDS MD; Source: Patient ; Reviewed Date: 12/22/2011 8:01 CDT Cipro Estimated Onset Date: Unspecified ; Created By: YASMANY CAVANAUGH RN; Reaction Status: Active ; Category: Drug ; Substance: Cipro ; Type: Allergy ; Updated By: YASMANY CAVANAUGH RN; Reviewed Date: 12/22/2011 8:01 CDT Silicone Estimated Onset Date: Unspecified ; Created By: JENNIFER FRANCIS RN; Reaction Status: Active ; Category: Drug ; Substance: Silicone ; Type: Sensitivity ; Updated By: JENNIFER FRANCIS RN; Reviewed Date: 12/22/2011 8:01 CDT Immunizations Immunizations Current : Unknown Last Tetanus : Unknown Pneumovac : Unknown Influenza : Last year TOÑO POWELL RN - 12/24/2011 1:15 CDT Source: [facility] POWERCHART Document Id: [id number] documented in this encounter Miscellaneous Notes Miscellaneous - Toño Powell R.N. - 12/24/2011 2:18 AM CDT Valuables/Belongings Valuables/Belongings Entered On: 12/24/2011 2:19 CDT Performed On: 12/24/2011 2:18 CDT by TOÑO POWELL RN Valuables/Belongings Valuables/Belongings Grid Valuables with Patient Clothes, Patient Valuables : Jacket, Pants, Shirt, Shoes Electronic Devices : Cell phone TOÑO POWELL RN - 12/24/2011 2:18 CDT Home Medication Disposition : None brought in with patient TOÑO POWELL RN - 12/24/2011 2:18 CDT Source: [employer] Document Id: [id number] Miscellaneous - Toño Powell RBessy - 12/24/2011 1:12 AM CDT Facility Charge Ticket Facility Charge Ticket Entered On: 12/24/2011 2:19 CDT Performed On: 12/24/2011 1:12 CDT by TOÑO POWELL RN Facility Charge TVL Level for Facility Charge Ticket : Level 2 [facility] Total Points with Diagnosis Control : 5 [facility] Visit Level : 07341 Level 3 W[place] HICKEY - 12/26/2011 15:00 CDT Mode of Arrival ED : Private vehicle, Ambulatory [facility] Mode of Arrival Interpreted : Standard [facility] Process Management : None [facility] Order Management : Lab tests 30 Minutes Critical Care : No [facility] Nursing Assessment : Triage and 1-2 nursing assessments [facility] Disposition : Discharge TOÑO POWELL RN - 12/24/2011 2:19 CDT Source: [employer] Document Id: [id number] documented in this encounter Plan of Treatment Not on filedocumented as of this encounter Procedures Procedure Name Priority Date/Time Associated Diagnosis Comme nts RAPID STREP A Routine 12/24/2011 1:42 AM Results for this SCREEN CDT procedure are i n the results section. RAPID STREP A Routine 12/24/2011 1:42 AM Results for this SCREEN CDT procedure are i n the results section. documented in this encounter Results Rapid Strep A Screen (12/24/2011 1:42 AM CDT) [facility] Method Time Signature HXRapid Strep POWERCHART Confirmation HXPre Negative for POWERCHART Group A Strep by culture. HXFinal Negative for POWERCHART Group A Strep by culture. Specimen Anatomical Collection Method Collection Time Receive d Time (Source) Location / / Volume Laterality Throat 12/24/2011 1:42 AM 2 1:42 CDT AM CDT Rosy Lyon M.D. LAB MICROBIOLOGY - GENERAL O DEVIN Performing Organization Address [facility] Code Phon e Number POWERCHART Rapid Strep A Screen (12/24/2011 1:42 AM CDT) [facility] Method Time Signature HXStrep A POWERCHART Screen Rapid HXFinal Negative for POWERCHART Strep Group A by rapid screen. HXFinal Culture POWERCHART confirmation to follow. Specimen (Source) Anatomical Collection Method Collection Time Re ceived Time Location / / Volume Laterality Throat 12/24/2011 1:42 AM CDT Rosy Lyon M.D. LAB MICROBIOLOGY - GENERAL O [place]IN Performing Organization Address [facility] [facility] Phon e Number POWERCHART documented in this encounter Visit Diagnoses Not on filedocumented in this encounter
--- OUTSIDE RECORDS SUMMARY | 2022-03-16 15:09 | XMS_ITS | Encounter Summary ---
:1980 Author Organization [facility] Address [address] [place] [address] Care Team Providers Name Role Phone Unavailable Primary Care Provider Unavailable Encounter Details Date Type Department Care Team Description 01/02/2012 Hospital Encounter HX [facility] Myrna Edmonds M.D. [...] or slept in a alf (including now)? Sex Assigned at Date Recorded Not on file documented as of this encounter Last Filed Vital Signs Vital Sign Reading Time Taken Comments Blood Pressure 112/64 01/02/2012 1:51 PM CDT Pulse 86 01/02/2012 1:51 PM CDT Temperature - - Respiratory Rate - - Oxygen Saturation - - Inhaled Oxygen Concentration - - Weight 80.6 kg (177 lb 11.1 oz) 01/02/2012 1:51 PM CDT Height - - Body Mass Index 32.7 12/24/2011 1:15 AM CDT documented in this encounter Progress Notes Myrna Edmonds M.D. - 01/02/2012 1:46 PM CDT [id number] CHIEF COMPLAINT/REASON FOR VISIT Severe left ear pain. HISTORY OF PRESENT ILLNESS Dulce comes in with severe left ear pain. She said this started a little over a week ago. She was seen in our emergency room and at that time she was basically complaining about a sore throat, fever viv strep test was done which was negative. She was given a prescription of Vicodin for pain. She did not get better. She went to [place] to the emergency room and there she was told she had an ear infection and put on amoxicillin. Did not seem to be getting much better so 2 days ago she presented to our [facility] and was switched from amoxicillin to Cefzil. She comes in today because she is still not getting better. She says the ear pain is in her left ear. The right ear does not feel too bad. It feels like a lot of pressure. She does not complain so much of a sore throat. She has not beentaking the Vicodin because she does not want to be drowsy as she is taking care of her young daughter. She has tried some eardrops to numb up her ear. She has been trying decongestants and heat as wellas Tylenol and ibuprofen and nothing seems to be effective. PHYSICAL EXAMINATION GENERAL: On exam she does not appear to be in any acute distress. Temperature is 36.2. HEENT: Right TM and canal are clear. Left TM is erythematous but not bulging. From the note from Monday, it appears that it is improving. Her pharynx is slightly red. NECK: Neck is supple without lymphadenopathy. LUNGS: Lungs are clear. IMPRESSION/REPORT/PLAN Left ear pain but it appears to be that the infection is resolving on the Cefzil. PLAN: will have her continue with the Cefzil and will try some tramadol for pain as it may be less likely to cause drowsiness. I suggested she continue with the heat. She would like to see a specialistfor further evaluation and treatment so will see if we can get her in to see an ENT specialist. Myrna Edmonds M.D./ Electronically Signed By: MYRNA EDMONDS MD On: 01/06/2012 07:48 AM Source: [facility] MHSDOLBEYNONRADSYS Document Id: [id number] documented in this encounter Nursing Notes Conversion, Historical Provider Ser - 01/02/2012 5:28 PM CDT Referral Referral to ENT @ [facility]-. Appt scheduled with Dr. Cifuentes on 01-09-12. Pt informed with date, time & place of appt. Electronically Signed By: ALVIN MAIN LPN On: 01/09/2012 05:30 PM Source: [facility] POWERCHART Document Id: [id number] documented in this encounter Miscellaneous Notes Miscellaneous - Myrna Edmonds M.D. - 01/02/2012 4:55 PM CDT Ambulatory Patient Summary [address] [address] Visit Information Name: DLUCE MENSAH Current Date: 01/02/2012 16:55:28 Physicians Attending Provider: MYRNA EDMONDS MD Primary Care Provider: ZINA CAMPBELL DNP, PHARMACY INFORMATICS SPECIALIST Your Medications Here is a list of [...] take in AM with 100mg tab to roxso709in & take 1 tab in PM ( [...] Date Time Location Reason Provider 01/04/2012 17:15 [facility] Family Med COPOSCOPY Your Goals/Additional instructions: Source: [facility] POWERCHART Document Id: [id number] Miscellaneous - Myrna Edmonds M.D. - 01/02/2012 4:55 PM CDT Ambulatory Depart Summary [facility] [address] [place] [address] Visit Information Name: DULCE MENSAH Visit Date: 01/02/2012 16:55:27 Attending Provider: MYRNA EDMONDS MD Primary Care Provider: ZINA CAMPBELL DNP, PHARMACY INFORMATICS SPECIALIST DULCE MENSAH has been given the following [...] take in AM with 100mg tab to opdia651zy & take 1 tab in PM ( [...] your provider for clarification. Additional Information: Source: [facility] POWERCHART Document Id: [id number] Miscellaneous - Zina Campbell, D.N.P., C.N.P. - 01/02/2012 1:51 PM CDT Adult Rn Geriatric Intake/History Adult Rn Geriatric Intake/History Entered On: 01/02/2012 13:53 CDT Performed On: 01/02/2012 13:51 CDT by ZINA CAMPBELL DNP, [facility] Intake Chief Complaint : concerned about continues left ear pain Temperature Core : 36.2C(Converted to: 97.2DegF) (LOW) Peripheral Pulse Rate : 86/min Systolic Blood Pressure : 112mmHg Diastolic Blood Pressure : 64mmHg NIBP Mean : 80mmHg BP Location : Left upper extremity Blood Pressure Cuff Size : Regular SpO2 : 98% Oxygen Therapy : Room air Actual Weight : 80.6kg(Converted to: 177lb 11oz) Weight Source : Standing scale Dosing Weight Clinic : 80.60kg ZINA CAMPBELL DNP, [facility] 01/02/2012 13:51 CDT General Info Information Given By : Patient Preferred Communication Mode : Verbal Languages : Romanian ZINA CAMPBELL DNP [facility] 01/02/2012 13:51 CDT Subjective Pain Symptoms : Yes ZINA CAMPBELL DNP [facility] 01/02/2012 13:51 CDT Pain Pain Assessment Grid Pain 1 Location : Ear Laterality : Left ZINA CAMPBELL DNP [facility] 01/02/2012 13:51 CDT Dependent Habits Tobacco Use/Currently Using : Yes Exposure to Tobacco Smoke : Patient smokes Smoking Status : Current every day smoker ZINA CAMPBELL DNP [facility] 01/02/2012 13:51 CDT Tobacco Use Grid Type : Cigarettes Cigarette Use Packs/Day : 1.0 Last Use : today ZINA CAMPBELL DNP [facility] 01/02/2012 13:51 CDT Caffeine Use Grid Caffeine Use : Current Type : Soft drinks Frequency : Daily ZINA CAMPBELL DNP [facility] 01/02/2012 13:51 CDT Recreational Drug Use Grid Drug Use : None ZINA CAMPBELL DNP [facility] 01/02/2012 13:51 CDT Allergy Allergies (Active) Augmentin XR Estimated Onset Date: Unspecified ; Reactions: GI distress ; Created By: MYRNA EDMONDS MD; Reaction Status: Active ; Category: Drug ; Substance: Augmentin XR ; Type: Intolerance ; Severity: Moderate ; Updated By: MYRNA EDMONDS MD; Source: Patient ; Reviewed Date: 12/31/2011 9:05 CDT Cipro Estimated Onset Date: Unspecified ; Created By: YASMANY CAVANAUGH RN; Reaction Status: Active ; Category: Drug ; Substance: Cipro ; Type: Allergy ; Updated By: YASMANY CAVANAUGH RN; Reviewed Date: 12/31/2011 9:05 CDT Silicone Estimated Onset Date: Unspecified ; Created By: JENNIFER FRANCIS RN; Reaction Status: Active ; Category: Drug ; Substance: Silicone ; Type: Sensitivity ; Updated By: JENNIFER FRANCIS RN; Reviewed Date: 12/31/2011 9:05 CDT Source: [facility] POWERCHART Document Id: [id number] documented in this encounter Plan of Treatment Not on filedocumented as of this encounter Visit Diagnoses Not on filedocumented in this encounter
--- OUTSIDE RECORDS SUMMARY | 2022-03-16 15:10 | XMS_ITS | Encounter Summary ---
:1980 Author Organization [facility] Address [address] [place] [address] Care Team Providers Name Role Phone Unavailable Primary Care Provider Unavailable Encounter Details Date Type Department Care Team Description 02/08/2011 Hospital Encounter HX [facility] Zina Campbell, LO, C.N.P., D. N.P. [address] [place] [address] (Wo rk) Social History Tobacco [...]
--- OUTSIDE RECORDS SUMMARY | 2022-03-16 15:10 | XMS_ITS | Encounter Summary ---
:1980 Author Organization [facility] Address [address] [place] [address] Care Team Providers Name Role Phone Unavailable Primary Care Provider Unavailable Encounter Details Date Type Department Care Team Description 02/13/2010 Hospital Encounter HX [facility] John Lewis, INPT/OBSRV M.[place]ashawn [id number] [id number] (Wo rk) Social History Tobacco Use [...]
--- OUTSIDE RECORDS SUMMARY | 2022-03-16 15:10 | XMS_ITS | Encounter Summary ---
:1980 Author Organization [facility] Address [address] [place] [address] Care Team Providers Name Role Phone Unavailable Primary Care Provider Unavailable Encounter Details Date Type Department Care Team Description 08/09/2010 Hospital Encounter HX [facility] ED Faith Ball M.D. Social History Tobacco Use Types Packs/Day [...] documented as of this encounter Discharge Summaries Conversion, Historical Provider Ser - 08/09/2010 9:40 PM CDT ED Depart Summary [facility] Emergency Department Clinical Discharge Summary PERSON INFORMATION Name CARTER MENSAH Age 30 Years 1980 12:00 AM Sex Female Language Malian PCP SHAMEKA MURGUIA MD Marital Status Single Visit Id Visit Reason Hives; Hives; HIVES Specialty Enc Type Emergency Med Service Emergency Medicine Referred by Track Group [facility] ED Discharge 08/09/2010 9:39 PM Tracking Id [id number] Checkout 08/09/2010 9:39 PM Checkin 08/09/2010 8:45 PM Acuity Dispo Type Discharged to Home or Self Care Arrival 08/09/2010 8:45 PM Reg Status LOS 000 00:54 Address: [address] [place] [phone] Comment: PROVIDER INFORMATION DIAGNOSIS Allergic reaction, unspecified 995.3; 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.0 Comment: PATIENT EDUCATION INFORMATION Instructions: HIVES Follow up: With: Address: When: SHAMEKA MURGUIA Within As Needed Comments: Source: [facility] POWERCHART Document Id: [id number] Conversion, Historical Provider Ser - 08/09/2010 9:40 PM CDT ED Discharge Instructions [address] [address] Name: CARTER MENSAH Date of : 1980 12:00 AM Visit Date: 08/09/2010 8:45 PM Address: [address] [place] [phone] Primary Care Provider: SHAMEKA MURGUIA MD IMPORTANT: [facility] would like to thank you for allowing us to assist you with your healthcare needs. The following includes patient education materials and information regarding your injury/illness. Follow-Up Instructions: With: Address: When: SHAMEKA MURGUIA Within As Needed Comments: Patient Education Materials: [id number] HIVES Hives is an itchy red rash that can appear suddenly and move about your body. It goes away in one place and comes back in another. This is usually caused by something that you are allergic to such as: EATING: fruit, shellfish, chocolate, nuts, tomatoes or medicine BREATHING: pollens, animal hair/fur or mold spores Exposure to cold air, sun rays or exercise can sometimes cause an attack. Many times we cannot find a cause. Medicines can be used to reduce itching and swelling. The rash will usually fade over several days, but can sometimes last up to two weeks. HOME CARE: 1) Do not wear tight clothing and do not take hot baths/showers since heat can make the itching worse. 2) An ice pack (ice cubes in a plastic bag, wrapped in a towel) will reduce local areas of redness and itching. Lanacaine cream or Solarcaine spray (or other product containing benzocaine) will reduce itching. 3) Oral Benadryl (diphenhydramine) is an antihistamine available at drug and grocery stores. Unless a prescription antihistamine was given, Benadryl may be used to reduce itching if large areas of the skin are involved. Use lower doses during the daytime and higher doses at bedtime since the drug may make you sleepy. [NOTE: Do not use Benadryl if you have glaucoma or if you are a man with trouble urinating due to an enlarged prostate.] Claritin (loratadine) is an antihistamine that causes less drowsiness and is a good alternative for daytime use. 4) If you know what you are sensitive to, avoid this substance. Future reactions could be worse thanthis one. FOLLOW UP with your doctor as directed by our staff, if symptoms do not begin to improve in two days. If you have had a severe reaction, or have had several episodes of hives, then ask your doctor about allergy testing to find out what you are allergic to. GET PROMPT MEDICAL ATTENTION if any of the following occur: -- Trouble breathing or swallowing -- New or increased swelling in the face, lips, tongue or throat -- Dizziness, weakness or fainting ?? [id number] [employer], [address] [place] [address], [place] [address]. All rights reserved. This information is not intended as a substitute for professional medical care. Always follow your healthcare professional's instructions. Discharge Prescriptions & Home Medications: Medication/Strength Dose Route Frequency Indications/Special Instructions/Comments butalbital/ASA/caffeine (Fiorinal oral capsule) 2 cap(s) Oral every 6 hours as needed for pain loratadine (Claritin 10 mg oral tablet) 10 mg Oral once a day as needed for Allergy symptoms ethinyl estradiol-norgestimate (Ortho Tri-Cyclen) Oral once a day Attention: If you have any medications at home that are not on this list, please contact your provider for clarification. Medication Reconciliation: [...] the instructions above carefully. If you are a patient that is [...] or physician. Patient Signature or Responsible Constitution Party Date/Time Provider Signature Date/Time Medication Reconciliation: Reconciliation [...] the instructions above carefully. If you are a patient that is [...] or physician. Patient Signature or Responsible Constitution Party Date/Time Provider Signature Date/Time Source: [facility] POWERCHART Document Id: [id number] documented in this encounter Nursing Notes Conversion, Historical Provider Gonzales - 08/09/2010 9:18 PM CDT Patient presenting to ED with global hive presentation which according to the patient appeared afterapplication of new tanning lotion and tanning session. Patient has no c/o shortness of breath, lung sounds were clear. Patient is alert and orientated. Patietn given 50 mg Benedryl po as ordered and given a medrol dose pack to take home with instructions as ordered. [facility] Document Id: [id number] Conversion, Historical Provider Ser - 08/09/2010 9:03 PM CDT ED Primary Assessment ED Primary Assessment Entered On: 08/09/2010 21:05 CDT Performed On: 08/09/2010 21:03 CDT by LAZARA HAIR Reason For Visit Problems(Active) Migraine headache Name of Problem: Migraine headache ; Recorder: SANDRINE FULLER RN; Confirmation: Confirmed ; Classification: Nursing ; Code: 1231 ; Contributor System: [employer] ; Last Updated: 06/10/2010 10:12 [employer] ; Life Cycle Date: 06/10/2010 ; Life Cycle Status: Active ; Responsible Provider: SANDRINE FULLER RN; Vocabulary: ICD-9-CM Sinusitis Name of Problem: Sinusitis ; Recorder: SANDRINE FULLER RN; Confirmation: Confirmed ; Classification: Nursing ; Code: 1231 ; Contributor System: [employer] ; Last Updated: 06/10/2010 10:13 [employer] ; Life Cycle Date: 06/10/2010 ; Life Cycle Status: Active ; Responsible Provider: SANDRINE FULLER RN; Vocabulary: ICD-9-CM Diagnoses(Active) Hives Date: 08/09/2010 20:59 CDT ; Diagnosis Type: Reason For Visit ; Confirmation: Complaint of ; Classification: Medical ; Clinical Service: Non- Specified ; Code: ICD-9-CM ; Probability: 0 ; Diagnosis Code: 708.9 Triage Chief Complaint Description: Hives related to application of new tanning lotion Information Given By: Patient Accompanied By: Alone Mode of Arrival ED: Private vehicle Track: Medical Languages: Malian Pain Symptoms: No LAZARA HAIR - 08/09/2010 21:03 CDT Allergy Allergies (Active) Augmentin Estimated Onset Date: Unspecified ; Created By: YASMANY CAVANAUGH RN; Reaction Status: Active ; Category: Drug ; Substance: Augmentin ; Type: Allergy ; Updated By: YASMANY CAVANAUGH RN; Reviewed Date: 07/21/2010 9:55 CDT Cipro Estimated Onset Date: Unspecified ; Created By: YASMANY CAVANAUGH RN; Reaction Status: Active ; Category: Drug ; Substance: Cipro ; Type: Allergy ; Updated By: YASMANY CAVANAUGH RN; Reviewed Date: 07/21/2010 9:55 CDT Respiratory Airway: Patent Respirations: Unlabored Respiratory Pattern: Regular LAZARA HAIR - 08/09/2010 21:03 CDT Cardiovascular Heart Rhythm: Regular Skin Color: Normal for ethnicity Skin Description: Rash Skin Temperature: Warm LAZARA HAIR - 08/09/2010 21:03 CDT Neurological Level of Consciousness: Alert Orientation: Oriented x 3 Characteristics of Speech: Clear LAZARA HAIR - 08/09/2010 21:03 CDT ED Psychosocial Affect/Behavior: Calm, Cooperative, Appropriate Domestic Concerns: None LAZARA HAIR - 08/09/2010 21:03 CDT Gastrointestinal Nutrition ED: Adequate LAZARA HAIR - 08/09/2010 21:03 CDT Musculoskeletal Fall Prevention Education Provided: LAZARA ROY - 08/09/2010 21:03 CDT Source: [employer] Document Id: [id number] CDT!29 documented in this encounter ED Notes Conversion, Historical Provider Ser - 08/09/2010 9:31 PM CDT ED Disposition Summary ED Disposition Summary Entered On: 08/09/2010 21:32 CDT Performed On: 08/09/2010 21:31 CDT by LAZARA HAIR ED Disposition Summary Accompanied By: Alone Mode of Discharge: Ambulatory Transportation: Private vehicle Patient Status at Discharge from ED: Improved LAZARA AHIR - 08/09/2010 21:31 CDT Source: [employer] Document Id: [id number] CDT!6 Faith Ball M.D. - 08/09/2010 9:19 PM CDT Barbara's Allergic reaction template Patient: CARTER MENSAH - CF MRN Age: 30 years Sex: Female : 1980 Author: FATIH BALL MD Basic Information History source: Patient. Arrival mode: Private vehicle. History limitation: None. Additional information:: Chief Complaint from Nursing Triage Note : Chief Complaint Description. 08/09/2010 21:03 CDT Chief Complaint Description Hives related to application of new tanning lotion 08/09/2010 20:58 CDT Chief Complaint Description Hives since 1700 after application of tanning lotion at [facility]. History of Present Illness The patient presents with allergic reaction, skin rash and hives. The onset was 2 hours ago. The course/duration of symptoms is constant. Location: Diffuse trunk back lower extremity. The character of symptoms is redness and itching. The degree at onset was minimal. The degree at present is moderate. Potential allergen(s) Sun tanning lotion. Risk factors consist of none. Prior episodes: none. Therapytoday: none. Associated symptoms: none. Additional history: none. Review of Systems Constitutional symptoms: Negative except as documented in HPI. Skin symptoms: Rash. Eye symptoms: Negative except as documented in [...] documented in HPI. Additional review of systems information:All other systems reviewed and otherwise negative. Health Status Allergies: . Allergic Reactions (all) Cipro, Augmentin Medications: . Medication Orders diphenhydrAMINE, 50 mg, 2 cap(s), PO, Once methylPREDNISolone (Medrol Dosepak), 4 mg, 1 tab(s), PO, 1xDay meal Prescriptions and Home Medications naproxen (naproxen 500 mg oral tablet), 500 mg, 1 tab(s), PO, PRN ethinyl estradiol-norgestimate (Ortho Tri-Cyclen), PO, Daily codeine-guaifenesin (Guiatuss AC oral syrup), 10 mL, PO, q4hr, 600 mL, PRN sulfamethoxazole-trimethoprim (Bactrim DS), 1, PO, 2xDay, (drink plenty of fluids), 20 each triamcinolone nasal (Nasacort AQ 55 mcg/inh nasal spray), 1 spray(s), Nostrils(Both), Daily, 2 each loratadine (Claritin 10 mg oral tablet), 10 mg, 1 tab(s), PO, Daily, 30 tab(s), PRN butalbital/ASA/caffeine (Fiorinal oral capsule), 2 cap(s), PO, q6hr, 30 cap(s), PRN Immunizations: Up to date. Menstrual history: Per nurse's notes. Past Medical/ Family/ Social History Medical history: Medical history. No active or resolved past medical history items have been selected or recorded. Surgical history: Surgical history. Colonoscopy ([id number]). Tonsillectomy with adenoidectomy ([id number]). Nasal sinus ([id number]). Comments: 06/10/2010 16:11 - SANDRINE FULLER RN sinus surgeries Family history: Family history. No family history items have been selected or recorded. Social history: Alcohol use: Occasionally, Tobacco use: Denies, Drug use: Denies. Problem list: . All Problems Migraine headache / 346.90 / Confirmed no known date of onset Sinusitis / 473.9 / Confirmed Physical Examination Vital signs: Vital Signs, 08/09/2010 20:58 CDT Temperature Core 36.6 C Peripheral Pulse Rate 97 /min Respiratory Rate 20 /min SpO2 97 % Systolic Blood Pressure 118 mmHg Diastolic Blood Pressure 66 mmHg Mean Arterial Pressure 83 mmHg BP Location Left upper Oxygen saturation Oxygen Therapy & Oxygenation Information. 08/09/2010 20:58 CDT Oxygen Therapy Room air General: Alert. no acute distress. Skin: Warm. dry. intact. Hives present diffusely. Head: Normocephalic. atraumatic. Eye: Pupils are equal, round and reactive to light. normal conjunctiva. Ears, nose, mouth and throat: Oral mucosa moist Cardiovascular: Regular rate and rhythm Respiratory: Lungs are clear to auscultation. respirations are non-labored. breath sounds are equal. Gastrointestinal: Soft. Nontender. Neurological: Alert and oriented to person, place, time, and situation Psychiatric: Cooperative. appropriate mood & affect. Medical Decision Making Differential Diagnosis:Allergic reaction, urticaria. Documents reviewed:Emergency department nurses' notes. Impression and Plan Diagnosis Allergic reaction, unspecified 995.3 (Discharge, Emergency medicine, Medical) 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.0 (Discharge, Emergency medicine, Medical) Discharge plan Condition: Stable. Dispositioned: Time 08/09/2010 21:23:00, To home. Patient was given the following educational materials: HIVES. Limitations: Limited activity. Follow up with: Return to Emergency Department, Primary Care Physician, In: As needed, Instructed toimmediately return to ED if any shortness of breath or difficulty swallow were to occur.. Counseled: Patient, Regarding diagnosis, Regarding diagnostic results, Regarding treatment plan, Regarding prescription, Patient indicated understanding of instructions. Source: [facility] POWERCHART Document Id: [id number]} Conversion, Historical Provider Ser - 08/09/2010 8:58 PM CDT ED Triage Assessment ED Triage Assessment Entered On: 08/09/2010 21:03 CDT Performed On: 08/09/2010 20:58 CDT by LAZARA HAIR Reason For Visit Problems(Active) Migraine headache Name of Problem: Migraine headache ; Recorder: SANDRINE FULLER RN; Confirmation: Confirmed ; Classification: Nursing ; Code: 1231 ; Contributor System: [employer] ; Last Updated: 06/10/2010 10:12 [employer] ; Life Cycle Date: 06/10/2010 ; Life Cycle Status: Active ; Responsible Provider: SANDRINE FULLER RN; Vocabulary: ICD-9-CM Sinusitis Name of Problem: Sinusitis ; Recorder: SANDRINE FULLER RN; Confirmation: Confirmed ; Classification: Nursing ; Code: 1231 ; Contributor System: [employer] ; Last Updated: 06/10/2010 10:13 [employer] ; Life Cycle Date: 06/10/2010 ; Life Cycle Status: Active ; Responsible Provider: SANDRINE FULLER RN; Vocabulary: ICD-9-CM Diagnoses(Active) Hives Date: 08/09/2010 20:59 CDT ; Diagnosis Type: Reason For Visit ; Confirmation: Complaint of ; Classification: Medical ; Clinical Service: Non- Specified ; Code: ICD-9-CM ; Probability: 0 ; Diagnosis Code: 708.9 Triage Chief Complaint Description: Hives since 1700 after application of tanning lotion at [facility] [place]. Information Given By: Patient Accompanied By: Alone Mode of Arrival ED: Private vehicle Track: Medical Languages: Malian Pain Symptoms: No Vital Signs Assessed: Yes LAZARA HAIR - 08/09/2010 20:58 CDT Vital Signs Temperature Core: 36.6C(Converted to: 97.9DegF) Peripheral Pulse Rate: 97/min Respiratory Rate: 20/min Systolic Blood Pressure: 118mmHg Diastolic Blood Pressure: 66mmHg NIBP Mean: 83mmHg BP Location: Left upper extremity SpO2: 97% Oxygen Therapy: Room air LAZARA HAIR 08/09/2010 20:58 CDT ED Physician Notification Time ED Physician Notification Time: 08/09/2010 21:00 CDT LAZARA HAIR - 08/09/2010 20:58 CDT Allergy Allergies (Active) Augmentin Estimated Onset Date: Unspecified ; Created By: YASMANY CAVANAUGH RN; Reaction Status: Active ; Category: Drug ; Substance: Augmentin ; Type: Allergy ; Updated By: YASMANY CAVANAUGH RN; Reviewed Date: 07/21/2010 9:55 CDT Cipro Estimated Onset Date: Unspecified ; Created By: YASMANY CAVANAUGH RN; Reaction Status: Active ; Category: Drug ; Substance: Cipro ; Type: Allergy ; Updated By: YASMANY CAVANAUGH RN; Reviewed Date: 07/21/2010 9:55 CDT Immunizations Immunizations Current: Yes Last Tetanus: > 5 years Pneumovac: None Influenza: Last year LAZARA HAIR - 08/09/2010 20:58 CDT [facility] Document Id: [id number] CDT!27 documented in this encounter Miscellaneous Notes Miscellaneous - Conversion, Historical Provider Ser - 08/09/2010 9:30 PM CDT Valuables/Belongings Valuables/Belongings Entered On: 08/09/2010 21:31 CDT Performed On: 08/09/2010 21:30 CDT by LAZARA HAIR Valuables/Belongings Valuables/Belongings Grid Valuables with Patient Clothes, Patient Valuables: None LAZARA HAIR - 08/09/2010 21:30 CDT Home Medication Disposition: None brought in with patient LAZARA HAIR - 08/09/2010 21:30 CDT Source: [employer] Document Id: [id number] CDT!6 Miscellaneous - Conversion, Historical Provider Ser - 08/09/2010 8:45 PM CDT Facility Charge Ticket Facility Charge Ticket Entered On: 08/09/2010 21:33 CDT Performed On: 08/09/2010 20:45 CDT by LAZARA HAIR Facility Charge TVL Level for Facility Charge Ticket: Level 2 [facility] Total Points with Diagnosis Control: 4 [facility] Visit Level: 85061 Level 2 WESLEY HICKEY - 08/11/2010 8:50 CDT Mode of Arrival ED: Private vehicle [facility] Mode of Arrival Interpreted: Standard [facility] Process Management: None [facility] Order Management: None 30 Minutes Critical Care: No [facility] Nursing Assessment: Triage and 1-2 nursing assessments [facility] Disposition: Discharge ED Other Charges: No Charge LAZARA HAIR - 08/09/2010 21:32 CDT Source: [employer] Document Id: [id number] CDT!5 documented in this encounter Plan of Treatment Not on filedocumented as of this encounter Visit Diagnoses Not on filedocumented in this encounter
--- OUTSIDE RECORDS SUMMARY | 2022-03-16 15:10 | XMS_ITS | Encounter Summary ---
:1980 Author Organization [facility] Address [address] [place] [address] Care Team Providers Name Role Phone Unavailable Primary Care Provider Unavailable Encounter Details Date Type Department Care Team Description 10/26/2010 Hospital Encounter HX [facility] Andrew Vera, LO, C.N.P., D. N.P. [address] [place] [address] (Wo rk) Social History Tobacco [...] Progress Notes Andrew Vera D.N.P., C.N.P. - 10/26/2010 12:00 AM CDT [id number] CHIEF COMPLAINT/REASON FOR VISIT Multiple issues. HISTORY OF PRESENT ILLNESS The patient is a 30-year-old female who presents to the clinic today due to multiple issues. She first states that she develops a rash only when she goes outside and is exposed to the sun more so with any kind of burning of the skin. She reports that she has been out of the sun for the past couple of weeks every day and reports that the rash continues to be present. She reports that she has she applied some topical steroid creams to the affected areas with very minimal symptom improvement. She does note that the rash is mildly pruritic. She also indicates that she does require control as she recently had a tubal in which her last HCG yesterday was noted to be zero completed in [place]. Currently at this time she is indicating that she would like to try the transdermal control patches. She also indicates that currently due to the circumstances she has been using her nicotine patches at 17 mg per 24 hours and reports that she has also been smoking and indicates she would like to increase the dosage of the nicotine patch in order to help her to quit smoking. She indicates that she has a history of migraines in which I have seen the patient for previously on 09/06/2010 in which she indicates that she was on Topamax in the past with symptom improvement of her migraines and reports that this medication had been discontinued. She is wondering if she can go back on this medication for daily prophylaxis as she indicates she has migraines more so with this heat, almost daily. She reports no other unusual changes to her migraines as she has also followed up with neurology in her past and whom had started her on the Topamax previously. PAST MEDICAL/SURGICAL HISTORY Reviewed. Please see chart. FAMILY HISTORY Reviewed. Please see chart. CURRENT MEDICATIONS Reviewed. Please see chart. ALLERGIES Reviewed. Please see chart. PHYSICAL EXAMINATION The patient is alert, well-nourished 30-year-old female who appears in no acute distress. Head is normocephalic, atraumatic. Patient is noted to have small blisters that are approximately 5 millimeters in diameter scattered across the chest as she is also noted to be sunburned. I do not appreciate any lesions to the ears to the skin that are not sunburn. Rash also affects the upper shoulder blade area and is not noted to be affecting the forearms, arms or the legs. Rash is consistent with dermatitis due to sunburn. LABS: Bicarbonate and creatinine are presently pending. IMPRESSION/REPORT/PLAN 1. Rash. 2. Contraceptive management. 3. Nicotine dependence. 4. Migraine headaches. PLAN: Discussed the findings at length with the patient. Indicated refraining from sun exposure should help to resolve her rash as this was discussed at length with the patient. I advised that I do not want her to apply hydrocortisone cream to the affected areas as this may also encourage increased irritation as this is not an allergic dermatitis, though more so dermatitis from sun exposure. Also indicated to apply a moisturizer to these areas instead. Patient was also started on Climara transdermal patches, she is to apply one patch weekly changing. A quantity of 12 with three refills were authorized. Will see how she does on this new control method, as I also indicated we may need to increase her dosage of the Estradiol level are of the estradiol level. I indicated I would like to do this slowly as there also may be an exacerbation of her migraines starting back on control. We did go ahead and increase the dose of her nicotine patch from 7 mg to 14 mg per 24 hour extend release as she is to apply one patch daily, a quantity of 14 patches with no refills were refilled as I indicated to the patient she is to contact me in two weeks duration to see how she is coming along, and we will reinstate the nicotine 7 mg patch at that time based upon if she feels she is able to taper down. I did reinstate the patient's Topamax 25 mg tablets in which she is to take one tablet by mouth every evening, for seven days duration to titrate up to 50 mg by mouth every day. We will await her bicarbonate and creatinine levels and continue monitoring these periodically if they are in normal range. The patient stated they understand this plan. She denied having any other further concerns or complaints. The patient ambulated out of the clinic in no acute distress. #1 Patient Education Ready to learn No apparent learning barriers were identified Learning preferences include listening Explained diagnosis and treatment plan Patient expressed understanding of the content Andrew Vera D.N.P., F.N.Samy. /yumiko Electronically Signed By: ANDREW VERA DNP, FNP On: 10/26/2010 01:48 PM Source: [facility] MHSDOLBEYNONRADSYS Document Id: [id number] documented in this encounter Miscellaneous Notes Miscellaneous - Andrew Vera D.N.P., C.N.P. - 10/26/2010 10:00 AM CDT Ambulatory Patient Summary [id number] [place] [address] Visit Information Name: CARTER MENSAH Current Date: 10/26/2010 09:59:58 Primary Care Provider: ANDREW VERA DNP, FNP Your Medications Here is a list of your medications. It is important to take your medications as directed. Use a pillbox or chart to help remind you to take your medications. Please let your doctor or nurse know if you have problems taking your medications. Medication/Strength Dose Route Frequency Indications/Special Instructions/Comments estradiol (Climara 0.0375 mg/24 hours weekly transdermal film, extended release) 1 patch(es) Transdermal every week nicotine (nicotine 14mg/24 hr transdermal film, extended release) 1 patch(es) Topical once a day topiramate (Topamax 25 mg oral tablet) 25 mg Oral once a day Take one tab by mouth every night for 1week, then may increase to 2 tabs by mouth daily. ondansetron (Zofran 4 mg oral tablet) 4 mg Oral every 8 hours loratadine (Claritin 10 mg oral tablet) 10 mg Oral once a day as needed for Allergy symptoms Your Allergies & Intolerances Substance Reaction Symptoms Category Comments Cipro Drug Augmentin Drug Silicone Drug Your Problem List Problem Status Onset Comments Migraine headache Active 04/17/1989 no known date of onset Sinusitis Active 05/19/2000 Abnormal Pap Active 10/21/2009 Your Recommendations We want to make sure [...] Test/Treatment Last Done Next Due Additional Information Screening Pap Smear every 3 years Women 21-65 06/17/2010 06/16/2013 Checks for signs of cancer of the cervix. Lipid Panel every 5 years Age 20-75 10/26/2010 Checks blood for good (HDL) and bad (LDL) cholesterol. Know your numbers, they are one indicator of your risk for heart attack and stroke. Vaccine: Tetanus every 10 years 06/13/2003 06/10/2013 Immunization to help prevent you from getting the serious disease Tetanus (Lockjaw). Your Upcoming Appointments Date Time Location Reason Provider No Appointments found Your Goals/Additional instructions: Source: [facility] POWERCHART Document Id: [id number] Electronically signed by Lesley [facility] [employer] [id number] at 09/18/2016 2:29 PM CDT Miscellaneous - Andrew Vera, D.N.P., C.N.P. - 10/26/2010 9:59 AM CDT Ambulatory Depart Summary [id number] [place] [address] Visit Information Name: CARTER MENSAH ELEAZAR Current Date: 10/26/2010 09:59:57 Primary Care Provider: ANDREW VERA [facility], TREASURY MANAGER CARTER MENSAH ELEAZAR has been given the following list of medications: Your Medications It is important to take your medications as directed. Use a pill box or chart to help remind you to take your medications. Please let your doctor or nurse know if you have problems taking your medications. Medication/Strength Dose Route Frequency Indications/Special Instructions/Comments estradiol (Climara 0.0375 mg/24 hours weekly transdermal film, extended release) 1 patch(es) Transdermal every week nicotine (nicotine 14mg/24 hr transdermal film, extended release) 1 patch(es) Topical once a day topiramate (Topamax 25 mg oral tablet) 25 mg Oral once a day Take one tab by mouth every night for 1week, then may increase to 2 tabs by mouth daily. ondansetron (Zofran 4 mg oral tablet) 4 mg Oral every 8 hours loratadine (Claritin 10 mg oral tablet) 10 mg Oral once a day as needed for Allergy symptoms Additional Information: Yes - Current list of reconciled medications is provided and explained to the patient and/or family, guardian/caregiver. 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 Intake/History Entered On: 10/26/2010 9:26 CDT Performed On: 10/26/2010 9:23 CDT by JARAD NG LPN Intake Chief Complaint: has rash on upper trunk, did also get sunburned control Ambulatory Intake Additional Information: tubular -bleeding stopped 5 days ago Temperature Core: 36.4C(Converted to: 97.5DegF) (LOW) Peripheral Pulse Rate: 76/min Respiratory Rate: 16/min Systolic Blood Pressure: 102mmHg Diastolic Blood Pressure: 62mmHg NIBP Mean: 75mmHg Actual Weight: 87.400kg(Converted to: 192lb 11oz) Dosing Weight Clinic: 87.40kg JARAD NG LPN - 10/26/2010 9:23 CDT Subjective Pain Symptoms: No JARAD NG LPN - 10/26/2010 9:23 CDT Dependent Habits Tobacco Use/Currently Using: Yes Exposure to Tobacco Smoke: Patient smokes JARAD NG LPN - 10/26/2010 9:23 CDT Tobacco Use Grid Type: Cigarettes Cigarette Use Packs/Day: 1.0 JARAD NG LPN - 10/26/2010 9:23 CDT Caffeine Use Grid Caffeine Use: Current Type: Soft drinks Frequency: Daily BERENICEJARAD Tristin CHILD & ADOLESCENT PSYCHIATRIST - 10/26/2010 9:23 CDT Allergy Allergies (Active) Augmentin Estimated Onset Date: Unspecified ; Created By: YASMANY CAVANAUGH RN; Reaction Status: Active ; Category: Drug ; Substance: Augmentin ; Type: Allergy ; Updated By: YASMANY CAVANAUGH RN; Reviewed Date: 09/30/2010 20:34 CDT Cipro Estimated Onset Date: Unspecified ; Created By: YASMANY CAVANAUGH RN; Reaction Status: Active ; Category: Drug ; Substance: Cipro ; Type: Allergy ; Updated By: YASMANY CAVANAUGH RN; Reviewed Date: 09/30/2010 20:34 CDT Silicone Estimated Onset Date: Unspecified ; Created By: JENNIFER FRANCIS RN; Reaction Status: Active ; Category: Drug ; Substance: Silicone ; Type: Sensitivity ; Updated By: JENNIFER FRANCIS RN; Reviewed Date: 09/30/2010 20:34 CDT Source: [facility] [employer] Document Id: [id number] CDT!26 documented in this encounter Plan of Treatment Not on filedocumented as of this encounter Visit Diagnoses Not on filedocumented in this encounter
--- OUTSIDE RECORDS SUMMARY | 2022-03-16 15:10 | XMS_ITS | Encounter Summary ---
:1980 Author Organization [facility] Address [address] [place] [address] Care Team Providers Name Role Phone Unavailable Primary Care Provider Unavailable Encounter Details Date Type Department Care Team Description 04/15/2010 Hospital Encounter HX [facility] John Lewis, INPT/OBSRV M.DLashawn [id number] [address] (Wo rk) Social History Tobacco [...]
--- OUTSIDE RECORDS SUMMARY | 2022-03-16 15:10 | XMS_ITS | Encounter Summary ---
:1980 Author Organization [facility] Address [address] [place] [address] Care Team Providers Name Role Phone Unavailable Primary Care Provider Unavailable Encounter Details Date Type Department Care Team Description 03/14/2011 Hospital Encounter HX [facility] Andrew Vera, LO, C.N.P., D. N.P. [address] [place] [address] (Wo rk) Social History Tobacco [...] How often do you attend baptism or More than 4 times per year 11/09/2020 synagogue services? Do you belong to any clubs or No 11/09/2020 organizations such as baptism groups, unions, fraternal [...] Progress Notes Andrew Vera D.N.P., C.N.P. - 03/14/2011 12:00 AM CST [id number] CHIEF COMPLAINT/REASON FOR VISIT 1. Left ear pain. 2. Acne. HISTORY OF PRESENT ILLNESS Patient is a 30-year-old female that presents to the clinic today with a chief complaint of having some left-sided ear pain that has been present now for the past couple days duration. She reports that she has not been having any URI like symptoms and reports that she is not taking anything ulok-ygj-sywskfv to help with the symptoms. She also suffers from a history of acne vulgaris in which she has used erythromycin topically in the past with significant improvement in the symptoms as she reports that currently the tretinoin that she was prescribed I drying out her face a little too much. She denies any fevers or chills and denies having any other further concerns or complaints at this time. PAST MEDICAL/SURGICAL HISTORY Reviewed. Please see chart. FAMILY HISTORY Reviewed. Please see chart. CURRENT MEDICATIONS Reviewed. Please see chart. ALLERGIES Reviewed. Please see chart. PHYSICAL EXAMINATION OBJECTIVE: Patient is alert/oriented x 3. HEAD: Normocephalic/atraumatic. PUPILS: GLEN. OROPHARYNX: [place] and moist. TMs: I also appreciate the left tympanic membrane is noted to be a little bit more dull, though the bony landmarks are noted to be within normal limits. No erythema of the left tympanic membrane is noted. NARES: Patent, no erythema or drainage noted. NECK: No anterior/posterior lymphadenopathy noted. HEART: Regular S1, S2, no murmurs, rubs or gallops noted. LUNGS: Clear to auscultation, no prolonged expiratory phases, wheezing, rales or rhonchi noted. SKIN: The patient is noted to have several non pustular acne like lesions to the perioral area. No other lesions noted elsewhere as there are approximately less than ten of these lesions. IMPRESSION/REPORT/PLAN 1. Acne vulgaris. 2. Left eustachian tube dysfunction. PLAN: Discussed the findings at length with the patient. We will have the patient discontinue the topical tretinoin and we will start on erythromycin 2% solution to apply to the affected areas after washing her face once to twice daily as needed for acne, a quantity of one with three refills were authorized. Also advised for the patient to lie on the non affected side allowing drainage to the left eustachian tube area and I also indicated she can apply warm compress to the area as well. Indicated she can take Sudafed lhlu-iwp-iktykha as Sudafed is labeled as a nasal decongestant but also a eustachian tube decongestant to help with eustachian tube dysfunction. Indicated if the symptoms worsen or continue follow-up be warranted. Patient stated she understands this plan as she otherwise denied having any other further concerns or complaints. Patient ambulated out of the clinic in no acute distress. PATIENT EDUCATION: Ready to learn No apparent learning barriers were identified Learning preferences include listening Explained diagnosis and treatment plan Patient/Child/Caregiver expressed understanding of the content Andrew Vera D.N.P., F.N.P. /andre Electronically Signed By: ANDREW VERA DNP, FNP On: 03/21/2011 07:54 AM Source: [facility] MHSDOLBEYNONRADSYS Document Id: [id number] IOTHERAPY ASSISTANT documented in this encounter Miscellaneous Notes Miscellaneous - Andrew Vera D.N.P., C.N.P. - 03/14/2011 2:28 PM PHYSIOTHERAPY ASSISTANT Ambulatory Patient Summary [id number] [place] [address] Visit Information Name: RODRICKCARTER ELEAZAR Current Date: 03/14/2011 14:28:24 Primary Care Provider: ANDREW VERA DNP SERVICE PERSON Your Medications Here is a list of your medications. It is important to take your medications as directed. Use a pillbox or chart to help remind you to take your medications. Please let your doctor or nurse know if you have problems taking your medications. Medication/Strength Dose Route Frequency Indications/Special Instructions/Comments erythromycin topical (erythromycin topical 2% gel) 1 sonya Topical two times a day as needed for acne fluticasone nasal (Flonase 0.05 mg/inh nasal spray) 1 spray(s) Nasal two times a day fexofenadine (Lashay 180 mg oral tablet) 180 mg Oral once a day topiramate (Topamax 50 mg oral tablet) 50 mg Oral once a day Your Allergies & Intolerances Substance Reaction Symptoms Category Comments Cipro Drug Silicone Drug Your Problem List Problem Status Onset Comments Migraine headache Active 04/17/1989 no known date of onset Sinusitis Active 05/19/2000 Abnormal Pap Active 10/21/2009 Acne vulgaris Active Date of onset unknown Your Recommendations We want to make sure [...] Lipid Panel every 5 years Age 20-75 03/14/2011 Checks blood for good (HDL) and bad (LDL) cholesterol. Know your numbers, they are one indicator of your risk for heart attack and stroke. Vaccine: Tetanus every 10 years 06/13/2003 06/10/2013 Immunization to help prevent you from getting the serious disease Tetanus (Lockjaw). Your Upcoming Appointments Date Time Location Reason Provider No Appointments found Your Goals/Additional instructions: Source: [facility] POWERCHART Document Id: [id number] IOTHERAPY ASSISTANT Miscellaneous - Andrew Vera, Tristin.N.P., C.N.P. - 03/14/2011 2:28 PM PHYSIOTHERAPY ASSISTANT Ambulatory Depart Summary [id number] [place] [address] Visit Information Name: CARTER MENSAH Current Date: 03/14/2011 14:28:23 Primary Care Provider: ANDREW VERA DNP, SERVICE PERSON CARTER MENSAH has been given the following list of medications: Your Medications It is important to take your medications as directed. Use a pill box or chart to help remind you to take your medications. Please let your doctor or nurse know if you have problems taking your medications. Medication/Strength Dose Route Frequency Indications/Special Instructions/Comments erythromycin topical (erythromycin topical 2% gel) 1 sonya Topical two times a day as needed for acne fluticasone nasal (Flonase 0.05 mg/inh nasal spray) 1 spray(s) Nasal two times a day fexofenadine (Lashay 180 mg oral tablet) 180 mg Oral once a day topiramate (Topamax 50 mg oral tablet) 50 mg Oral once a day Additional Information: Yes - Current list of reconciled medications is provided and explained to the patient and/or family, guardian/caregiver. Source: [facility] POWERCHART Document Id: [id number] IOTHERAPY ASSISTANT Miscellaneous - Laine Diaz, L.P.N. - 03/14/2011 1:32 PM CST Health Assessment Health Assessment Entered On: 03/14/2011 13:33 PHYSIOTHERAPY ASSISTANT Performed On: 03/14/2011 13:32 PHYSIOTHERAPY ASSISTANT by LAINE DIAZ LPN Nutrition Nutrition Risk Factors by History Adult : None LAINE DIAZ LPN - 03/14/2011 13:32 PHYSIOTHERAPY ASSISTANT Functional Current Daily Living Assistance : None LAINE DIAZ LPN - 03/14/2011 13:32 PHYSIOTHERAPY ASSISTANT Dependent Habits Tobacco Use/Currently Using : Yes Exposure to Tobacco Smoke : Patient smokes Smoking Status : Current every day smoker LAINE DIAZ PRINTING SCREEN ASSEMBLER - 03/14/2011 13:32 PHYSIOTHERAPY ASSISTANT Tobacco Use Grid Type : Cigarettes Cigarette Use Packs/Day : 1.0 LAINE DIAZ PRINTING SCREEN ASSEMBLER - 03/14/2011 13:32 PHYSIOTHERAPY ASSISTANT Caffeine Use Grid Caffeine Use : Current Type : Soft drinks Frequency : Daily LAINE DIAZ PRINTING SCREEN ASSEMBLER - 03/14/2011 13:32 PHYSIOTHERAPY ASSISTANT Recreational Drug Use Grid Drug Use : None LAINE DIAZ PRINTING SCREEN ASSEMBLER - 03/14/2011 13:32 PHYSIOTHERAPY ASSISTANT Psychosocial Domestic Abuse Concerns : None LAINE DIAZ PRINTING SCREEN ASSEMBLER - 03/14/2011 13:32 PHYSIOTHERAPY ASSISTANT Advance Directive Advanced Directives : No LAINE DIAZ [facility] 03/14/2011 13:32 PHYSIOTHERAPY ASSISTANT Educ Needs Learning Style Preference Adult Grid Patient : None Family : None LAINE DIAZ LPN - 03/14/2011 13:32 PHYSIOTHERAPY ASSISTANT Source: [facility] [employer] Document Id: [id number] PHYSIOTHERAPY ASSISTANT!29 IOTHERAPY ASSISTANT Miscellaneous - Laine Diaz, L.P.N. 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 Adult Coating Machine Operator Intake/History Entered On: 03/14/2011 13:32 PHYSIOTHERAPY ASSISTANT Performed On: 03/14/2011 13:30 PHYSIOTHERAPY ASSISTANT by LAINE DIAZ LPN Intake Chief Complaint : left ear throbbing, cough Onset of Symptoms : sat Temperature Core : 35.4C(Converted to: 95.7DegF) (LOW) Peripheral Pulse Rate : 97/min Respiratory Rate : 20/min Systolic Blood Pressure : 108mmHg Diastolic Blood Pressure : 70mmHg NIBP Mean : 83mmHg BP Location : Left upper extremity SpO2 : 98% Heart Rhythm : Regular Oxygen Therapy : Room air Actual Weight : 85kg(Converted to: 187lb 6oz) Weight Source : Standing scale Dosing Weight Clinic : 85.00kg LAINE DIAZ LPN - 03/14/2011 13:30 PHYSIOTHERAPY ASSISTANT Subjective Pain Symptoms : Yes LAINE DIAZ PRINTING SCREEN ASSEMBLER - 03/14/2011 13:30 PHYSIOTHERAPY ASSISTANT Pain Pain Assessment Grid Pain 1 Location : Ear (Comment: left [LAINE DIAZ [facility] - 03/14/2011 13:30 PHYSIOTHERAPY ASSISTANT] ) Laterality : Left Intensity : 4 LAINE DIAZ [facility] 03/14/2011 13:30 PHYSIOTHERAPY ASSISTANT Dependent Habits Tobacco Use/Currently Using : Yes Exposure to Tobacco Smoke : Patient smokes Smoking Status : Current every day smoker LAINE DIAZ [facility] 03/14/2011 13:30 PHYSIOTHERAPY ASSISTANT Tobacco Use Grid Type : Cigarettes Cigarette Use Packs/Day : 1.0 DIAZ LAINE Claire [facility] 03/14/2011 13:30 PHYSIOTHERAPY ASSISTANT Alcohol Use : No GYPSY DIAZEN [place] [facility] 03/14/2011 13:30 PHYSIOTHERAPY ASSISTANT Caffeine Use Grid Caffeine Use : Current Type : Soft drinks Frequency : Daily LAINE DIAZ [facility] 03/14/2011 13:30 PHYSIOTHERAPY ASSISTANT Recreational Drug Use Grid Drug Use : None [place] LAINE Claire [facility] 03/14/2011 13:30 PHYSIOTHERAPY ASSISTANT Allergy Allergies (Active) Cipro Estimated Onset Date: Unspecified ; Created By: YASMANY CAVANAUGH RN; Reaction Status: Active ; Category: Drug ; Substance: Cipro ; Type: Allergy ; Updated By: YASMANY CAVANAUGH RN; Reviewed Date: 03/14/2011 13:30 PHYSIOTHERAPY ASSISTANT Silicone Estimated Onset Date: Unspecified ; Created By: JENNIFER FRANCIS RN; Reaction Status: Active ; Category: Drug ; Substance: Silicone ; Type: Sensitivity ; Updated By: JENNIFER FRANCIS RN; Reviewed Date: 03/14/2011 13:30 PHYSIOTHERAPY ASSISTANT Source: [facility] POWERCHART Document Id: [id number] PHYSIOTHERAPY ASSISTANT!42 IOTHERAPY ASSISTANT documented in this encounter Plan of Treatment Not on filedocumented as of this encounter Visit Diagnoses Not on filedocumented in this encounter
--- OUTSIDE RECORDS SUMMARY | 2022-03-16 15:10 | XMS_ITS | Encounter Summary ---
:1980 Author Organization [facility] Address [address] [place] [address] Care Team Providers Name Role Phone Unavailable Primary Care Provider Unavailable Encounter Details Date Type Department Care Team Description 02/11/2011 Hospital Encounter HX [facility] Quique, Carmen murphy P.A.-C., P.A. [address] [place] [address] (Wo rk) Social History Tobacco [...] More than 4 times per year 11/09/2020 gnosticist services? Do you belong to any [...] encounter Progress Notes Myrna Edmonds M.D. - 02/11/2011 12:00 AM CDT [id number] CHIEF COMPLAINT/REASON FOR VISIT Carter comes in with a cough. HISTORY OF PRESENT ILLNESS She said she got her flu shot on Monday and then she started coughing. She thinks she might have been coming down with something before that. She has had flu shots in the past and has never had any problems with them. She feels that she might have a little bit of phlegm in her throat but does not feel like her sinuses are plugged. She feels like it is kind of coming from her chest. Denies any chest pain, has a little anterior chest tightness or cough, is nonproductive. She denies any fever. Her daughter had something similar but has gotten over it. CURRENT MEDICATIONS Her current medications are: 1) Lashay. 2) Flonase. 3) control pills. 4) Nicotine patch. 5) Topamax. ON EXAM IN GENERAL: Does not appear in any acute distress but does have a frequent dry cough. VITAL SIGNS: She is afebrile. Blood pressure is 103/63. HEAD: Head is normocephalic, atraumatic. EARS: External ears are normal. TMs and canals are clear. EYES: PERRLA. Extraocular movements intact. PHARYNX: Is clear. NECK: Is supple without lymphadenopathy. There is no thyromegaly. SPINE: Is straight, nontender. LUNGS: Lungs are clear. HEART: Is regular without murmur. SKIN: Is warm and dry. ASSESSMENT 1) Viral upper respiratory infection. 2) Bronchitis. PLAN We will treat it symptomatically for now with some Guaifenesin AC cough syrup. She is to get plenty of fluids. I wrote her note for work since she stayed home last night stating that she can go back without any restrictions tomorrow. Myrna Edmonds M.D. /orion Electronically Signed By: MYRNA EDMONDS MD On: 02/18/2011 08:28 AM Source: [facility] [id number] Document Id: [id number] documented in this encounter Miscellaneous Notes Miscellaneous - Myrna Edmonds M.D. - 02/14/2011 4:33 PM CDT School or Work Excuse School or Work Excuse Entered On: 02/14/2011 16:34 CDT Performed On: 02/14/2011 16:33 CDT by MYRNA EDMONDS MD School or Work Excuse Date Patient Seen : 02/11/2011 CDT School or Work Restrictions : Other: no work 02/13/2011 Date of Return to School/Work Without Restrictions : 02/14/2011 CDT MYRNA EDMONDS MD - 02/14/2011 16:33 CDT Source: [facility] POWERCHART Document Id: [id number] CDT!5 Miscellaneous - Myrna Edmonds M.D. - 02/11/2011 12:01 PM CDT Ambulatory Patient Summary [address] [address] Visit Information Name: CARTER MENSAH Current Date: 02/11/2011 12:01:54 Primary Care Provider: ANDREW VERA [facility], RECONCILIATION COORDINATOR Your Medications Here is a list of your medications. It is important to take your medications as directed. Use a pillbox or chart to help remind you to take your medications. Please let your doctor or nurse know if you have problems taking your medications. Medication/Strength Dose Route Frequency Indications/Special Instructions/Comments codeine-guaifenesin (Guaifenesin AC Liquid oral syrup) 5 mL Oral every 4 hours as needed for cough fluticasone nasal (Flonase 0.05 mg/inh nasal spray) 1 spray(s) Nasal two times a day tretinoin topical (tretinoin topical 0.1% gel) 1 sonya Topical once a day (at bedtime) (wash hands before applying) ondansetron (Zofran 4 mg oral tablet) 4 mg Oral every 8 hours as needed for Nausea fexofenadine (Lashay 180 mg oral tablet) 180 [...] Lipid Panel every 5 years Age 20-75 02/11/2011 Checks blood for good (HDL) and bad (LDL) cholesterol. Know your numbers, they are one indicator of your risk for heart attack and stroke. Vaccine: Tetanus every 10 years 06/13/2003 06/10/2013 Immunization to help prevent you from getting the serious disease Tetanus (Lockjaw). Your Upcoming Appointments Date Time Location Reason Provider No Appointments found Your Goals/Additional instructions: Source: [facility] POWERCHART Document Id: [id number] Electronically signed by Lesley, [facility] Catalyst Operator Chief [id number] at 09/18/2016 3:35 PM CDT Miscellaneous - Myrna Edmonds M.D. - 02/11/2011 12:01 PM CDT Ambulatory Depart Summary [facility] [address] [place] [address] Visit Information Name: CARTER MENSAH Current Date: 02/11/2011 12:01:53 Primary Care Provider: ANDREW VERA DNP, RECONCILIATION COORDINATOR CARTER MENSAH has been given the following list of medications: Your Medications It is important to take your medications as directed. Use a pill box or chart to help remind you to take your medications. Please let your doctor or nurse know if you have problems taking your medications. Medication/Strength Dose Route Frequency Indications/Special Instructions/Comments codeine-guaifenesin (Guaifenesin AC Liquid oral syrup) 5 mL Oral every 4 hours as needed for cough fluticasone nasal (Flonase 0.05 mg/inh nasal spray) 1 spray(s) Nasal two times a day tretinoin topical (tretinoin topical 0.1% gel) 1 sonya Topical once a day (at bedtime) (wash hands before applying) ondansetron (Zofran 4 mg oral tablet) 4 mg Oral every 8 hours as needed for Nausea fexofenadine (Lashay 180 mg oral tablet) 180 mg Oral once a day topiramate (Topamax 50 mg oral tablet) 50 mg Oral once a day Additional Information: Yes - Current list of reconciled medications is provided and explained to the patient and/or family, guardian/caregiver. Source: [facility] POWERCHART Document Id: [id number] Electronically signed by Lesley [facility] Catalyst Operator Chief [id number] at 09/18/2016 3:35 PM CDT Miscellaneous - Myrna Edmonds M.D. - 02/11/2011 10:51 AM CDT School or Work Excuse School or Work Excuse Entered On: 02/11/2011 10:52 CDT Performed On: 02/11/2011 10:51 CDT by MYRNA EDMONDS MD School or Work Excuse Date Patient Seen: 02/11/2011 CDT School or Work Restrictions: Other: no work 02/10 - 02/11 due to illness Date of Return to School/Work Without Restrictions: 02/12/2011 CDT MYRNA EDMONDS MD - 02/11/2011 10:51 CDT Source: [facility] POWERCHART Document Id: [id number] CDT!5 Miscellaneous - Hunter Branch L.P.N. - 02/11/2011 10:25 AM CDT Adult Edging Machine Feeder Intake/History Adult Edging Machine Feeder Intake/History Entered On: 02/11/2011 10:27 CDT Performed On: 02/11/2011 10:25 CDT by HUNTER BRANCH DREDGE OPERATOR Intake Chief Complaint: got flu shot on and started getting sick on Mon. Cough continues, denies sinusdrainage. Feels it is all in the chest. Temperature Core: 37.0C(Converted to: 98.6DegF) Peripheral Pulse Rate: 80/min Respiratory Rate: 20/min Systolic Blood Pressure: 103mmHg Diastolic Blood Pressure: 63mmHg NIBP Mean: 76mmHg BP Location: Right upper extremity SpO2: 99% Heart Rhythm: Regular HUNTER BRANCH LPN - 02/11/2011 10:25 CDT Subjective Pain Symptoms: No HUNTER BRANCH LPN - 02/11/2011 10:25 CDT Dependent Habits Tobacco Use/Currently Using: Yes Tobacco Use/Advised to Quit: Yes Exposure to Tobacco Smoke: Patient smokes Smoking Status: Smoker HUNTER BRANCH LPN - 02/11/2011 10:25 CDT Tobacco Use Grid Type: Cigarettes Cigarette Use Packs/Day: 1.0 HUNTER BRANCH LPN - 02/11/2011 10:25 CDT Caffeine Use Grid Caffeine Use: Current Type: Soft drinks Frequency: Daily HUNTER BRANCH LPN - 02/11/2011 10:25 CDT Allergy Allergies (Active) Cipro Estimated Onset Date: Unspecified ; Created By: YASMANY CAVANAUGH RN; Reaction Status: Active ; Category: Drug ; Substance: Cipro ; Type: Allergy ; Updated By: YASMANY CAVANAUGH RN; Reviewed Date: 02/11/2011 10:23 CDT Silicone Estimated Onset Date: Unspecified ; Created By: JENNIFER FRANCIS RN; Reaction Status: Active ; Category: Drug ; Substance: Silicone ; Type: Sensitivity ; Updated By: JENNIFER FRANCIS RN; Reviewed Date: 02/11/2011 10:23 CDT Source: [facility] [employer] Document Id: [id number] CDT!28 documented in this encounter Plan of Treatment Not on filedocumented as of this encounter Visit Diagnoses Not on filedocumented in this encounter
--- OUTSIDE RECORDS SUMMARY | 2022-03-16 15:10 | XMS_ITS | Encounter Summary ---
:1980 Author Organization [facility] Address [address] [place] [address] Care Team Providers Name Role Phone Unavailable Primary Care Provider Unavailable Encounter Details Date Type Department Care Team Description 01/23/2011 Hospital Encounter HX [facility] ED Vince Lopez M.D. [address] [place] [phone] (Wo rk) Social History Tobacco Use [...] documented as of this encounter Discharge Summaries Memo Burch R.N. - 01/23/2011 6:05 PM CDT ED Depart Summary [facility] Emergency Department Clinical Discharge Summary PERSON INFORMATION Name CARTER MENSAH Age 30 Years 1980 12:00 AM Sex Female Language Argentine PCP ANDREW VERA DNP, IMPROVEMENT LEAD Marital Status Single Visit Id Visit Reason Headache; HEADACHE Specialty Enc Type Emergency Med Service Emergency Medicine Referred by Track Group [facility] ED Discharge 01/23/2011 6:05 PM Tracking Id [id number] Checkout 01/23/2011 6:05 PM Checkin 01/23/2011 4:23 PM Acuity 4 -Less Urgent Dispo Type * Discharged to Home or Self Care Arrival 01/23/2011 4:23 PM Reg Status LOS 000 01:42 Address: [address] [place] [phone] Comment: PROVIDER INFORMATION Provider Role Assigned Unassigned SHAMEKA LOPEZ MD ED Provider 01/23/2011 4:59 PM MEMO BURCH BULK FLUIDS HANDLER Nurse 01/23/2011 5:34 PM DIAGNOSIS Seasonal allergic rhinitis; Headache, migraine NOS Comment: PATIENT EDUCATION INFORMATION Instructions: ALLERGIC RHINITIS Follow up: With: Address: When: Follow up with primary care provider In 15 days 02/07/2011 Comments: With: Address: When: ANDREW VERA [address] [place] [address] phone, ZIMPERIUM (1) Within As Needed Comments: Source: [facility] POWERCHART Document Id: [id number] Electronically signed by Lesley, [facility] Tar Roofer [id number] at 09/18/2016 3:35 PM CDT Memo Burch R.N. - 01/23/2011 6:05 PM CDT ED Discharge Instructions [address] [address] Name: CARTER MENSAH Date of : 1980 12:00 AM Visit Date: 01/23/2011 4:23 PM Address: [facility] [phone] Primary Care Provider: ANDREW VERA DNP, IMPROVEMENT LEAD IMPORTANT: [facility] in [place] would like to thank you for allowing us to assist you with your healthcare needs. The following includes patient education materials and informationregarding your injury/illness. Follow-Up Instructions: With: Address: When: Follow up with primary care provider In 15 days 02/07/2011 Comments: With: Address: When: ANDREW VERA [address] [place] [phone] phone, business (1) Within As Needed Comments: Patient Education Materials: [id number] NASAL ALLERGY Nasal Allergy, also called Allergic Rhinitis occurs after exposure to pollen, molds, mildew, animal dander (scales from animal skin, hair and feathers), dust, smoke and fumes. (These are called allergens). When pollen causes a nasal allergy it is commonly called Hay Fever. When these particles contact the lining of the nose, eyes, eyelids, sinuses or throat, they cause the cells to release a chemical called histamine. Histamine may cause a watery discharge from the eyes or nose. It may also cause violent sneezing, nasal congestion, itching of the eyes, nose, throat and mouth. PREVENTION: Nasal allergy cannot be cured but symptoms can be reduced. Avoid or reduce exposure to the allergen when possible, by the following measures: POLLEN -- Stay indoors on hot windy days during pollen season -- Keep windows and doors closed -- Use an air conditioner with an electrostatic filter DUST, MOLD & MILDEW Follow these measures, especially in the bedroom: -- When cleaning use vacuum optician apprentice dispensing, oiled mops and damp cloths; don't stir up the dust. -- Once a week clean the garcia, woodwork and floors with a damp mop and vacuum carpets. -- Once a year clean the bed frame and springs (do this outside). -- Cover the box springs with plastic. Do not use mattress pads. -- Remove stuffed chairs and rugs from the bedroom. -- Discard old moldy books, furniture and bedding. -- Use synthetic fabrics for furniture, curtains and bedding. Avoid quilts, comforters, and stuffed toys. ANIMAL DANDER -- Remove all indoor pets (except fish and reptiles). -- Avoid all contact with furry animals. -- Avoid down-stuffed pillows and coats. -- Some persons are also sensitive to wool and should avoid it. OTHER IRRITANTS -- Do not smoke and avoid the smoke of others. -- Some persons are sensitive to cosmetic powder, baby powder and powdered laundry detergents. Therefore, these powders should be avoided. HOME CARE: 1) DECONGESTANT pills and sprays (Sudafed, NeoSynephrine, Afrin), reduce tissue swelling and watery discharge. Overuse of nasal decongestant sprays may make symptoms worse. Do not use these more often than recommended. 2) ANTIHISTAMINES block the release of histamine during the allergic response. Antihistamines are more effective when taken BEFORE symptoms develop. Unless a prescription antihistamine was prescribed, you may take CLARITIN (loratadine). (Claritin is an xadt-cyu-sefkkfm antihistamine that does not cause drowsiness.) 3) STEROID nasal sprays (Beconase, Vancenase, Nasalide) or oral steroids (Prednisone) may also be prescribed for more severe symptoms. These help to reduce the local inflammation which adds to the allergic response. 4) If you have ASTHMA, pollen season may make your asthma symptoms worse. It is important that you use your asthma medicines as directed during this time to prevent or treat attacks. Some persons with asthma have a worsening of their asthma symptoms when taking antihistamines. If you notice this, stopthe antihistamines and notify your doctor. FOLLOW UP with your doctor or as directed by our staff if your symptoms are not improving with the treatment advised. GET PROMPT MEDICAL ATTENTION if any of the following occur: -- Facial or sinus pain or colored drainage from the nose -- Severe headache or ear pain -- Fever over 100.0?? F (37.8?? C) -- Wheezing or trouble breathing (If you already know you have asthma, return if your asthma symptoms do not respond to the usual doses of your medicine) -- Cough with lots of colored sputum (mucus) ?? [id number] [employer], [address] [place] [address], [place] [address]. All rights reserved. This information is not intended as a substitute for professional medical care. Always follow your healthcare professional's instructions. Discharge Prescriptions & Home Medications: Medication/Strength Dose Route Frequency Indications/Special Instructions/Comments fluticasone nasal (Flonase 0.05 mg/inh nasal spray) 1 spray(s) Nasal two times a day cetirizine (cetirizine 10 mg oral tablet) 10 mg Oral once a day as needed for allergy symptoms tretinoin topical (tretinoin topical 0.1% gel) 1 sonya Topical once a day (at bedtime) (wash hands before applying) ondansetron (Zofran 4 mg oral tablet) 4 mg Oral every 8 hours as needed for Nausea norethindrone (Micronor 0.35 mg oral tablet) 1 tab(s) Oral once a day start first tablet today fexofenadine (Lashay 180 mg oral tablet) 180 mg Oral once a day topiramate (Topamax 50 mg oral tablet) 50 mg Oral once a day nicotine (nicotine 14mg/24 hr transdermal film, extended release) 1 patch(es) Topical once a day Attention: If you have [...] physician. Patient Signature or Responsible Constitution Party/Relationship Date/Time Provider Signature Date/Time Medication Reconciliation: Reconciliation is a process of identifying the most accurate list of all medications a patient is taking - including name, dosage, frequency, and route - and using this list to provide to the patient information about how to take those medications. CARTER MENSAH or lyudmilaee has reviewed the home medications [...] physician. Patient Signature or Responsible Constitution Party/Relationship Date/Time Provider Signature Date/Time Source: [facility] [employer] Document Id: [id number] documented in this encounter Nursing Notes Memo Burch R.N. - 01/23/2011 6:02 PM CDT ED Pain Assessment ED Pain Assessment Entered On: 01/23/2011 18:02 CDT Performed On: 01/23/2011 18:02 CDT by MEMO BURCH RN Pain Assessment Pain Symptoms: Yes MEMO BURCH RN - 01/23/2011 18:02 CDT Source: [facility] [employer] Document Id: [id number] CDT!3 Memo Burch R.N. - 01/23/2011 4:43 PM CDT ED Primary Assessment ED Primary Assessment Entered On: 01/23/2011 16:44 CDT Performed On: 01/23/2011 16:43 CDT by MEMO BURCH RN Reason For Visit Problems(Active) Abnormal Pap Name of Problem: Abnormal Pap ; Onset Date: 10/21/2009 ; Recorder: JENNIFER LIN LPN; Confirmation: Confirmed ; Classification: Nursing ; Code: 1231 ; Contributor System: [employer] ; Last Updated: 08/16/2010 4:50 CDT ; Life Cycle Date: 08/16/2010 ; Life Cycle Status: Active ; Responsible Provider: JENNIFER LIN LPN; Vocabulary: ICD-9-CM Acne vulgaris Name of Problem: Acne vulgaris ; Recorder: ALLEN BEDOYA RN; Confirmation: Confirmed ;Classification: Nursing ; Code: 1231 ; Contributor System: [employer] ; Last Updated: 12/17/2010 6:55 CDT ; Life Cycle Date: 12/17/2010 ; Life Cycle Status: Active ; Responsible Provider: ALLEN BEDOYA; Vocabulary: ICD-9-CM Migraine headache Name of Problem: Migraine headache ; Onset Date: 04/17/1989 ; Recorder: SANDRINE FULLER RN; Confirmation: Confirmed ; Classification: Nursing ; Code: 1231 ; Contributor System: Power[employer] ; Last Updated: 08/16/2010 4:54 CDT ; Life Cycle Date: 06/10/2010 ; Life Cycle Status: Active ; Responsible Provider: SANDRINE FULLER RN; Vocabulary: ICD-9-CM Sinusitis Name of Problem: Sinusitis ; Onset Date: 05/19/2000 ; Recorder: SANDRINE FULLER RN; Confirmation: Confirmed ; Classification: Nursing ; Code: 1231 ; Contributor System: Power[employer] ; Last Updated: 08/16/2010 4:52 CDT ; Life Cycle Date: 06/10/2010 ; Life Cycle Status: Active ; Responsible Provider: SANDRINE FULLER RN; Vocabulary: ICD-9-CM Diagnoses(Active) Headache Date: 01/23/2011 16:36 CDT ; Diagnosis Type: Reason For Visit ; Confirmation: Complaint of ; Classification: Medical ; Clinical Service: Emergency medicine ; Code: PNED ; Probability: 0 ; Diagnosis Code: [id number] Triage Chief Complaint Description: see triage note Mode of Arrival ED: Private vehicle Track: Medical Languages: Argentine MEMO BURCH RN - 01/23/2011 16:43 CDT Pain Assessment Pain Symptoms: Yes MEMO BURCH RN - 01/23/2011 16:43 CDT ED Physician Notification Time ED Physician Notification Time: 01/23/2011 16:40 CDT MEMO BURCH RN - 01/23/2011 16:43 CDT MORALES DCP GENERIC CODE Tracking Acuity: 4 -Less Urgent Tracking Group: [facility] ED MEMO BURCH RN - 01/23/2011 16:43 CDT Allergy Allergies (Active) Cipro Estimated Onset Date: Unspecified ; Created By: YASMANY CAVANAUGH RN; Reaction Status: Active ; Category: Drug ; Substance: Cipro ; Type: Allergy ; Updated By: YASMANY CAVANAUGH RN; Reviewed Date: 11/30/2010 18:36 CDT Silicone Estimated Onset Date: Unspecified ; Created By: JENNIFER FRANCIS RN; Reaction Status: Active ; Category: Drug ; Substance: Silicone ; Type: Sensitivity ; Updated By: JENNIFER FRANCIS RN; Reviewed Date: 11/30/2010 18:36 CDT Immunizations Last Tetanus: < 5 years Influenza: Last year MEMO BURCH RN - 01/23/2011 16:43 CDT Respiratory Airway: Patent Respirations: Unlabored Respiratory Pattern: Regular MEMO BURCH RN - 01/23/2011 16:43 CDT Cardiovascular Heart Rhythm: Regular Skin Color: Normal for ethnicity Skin Description: Dry Skin Temperature: Warm MEMO BURCH RN - 01/23/2011 16:43 CDT Neurological Level of Consciousness: Alert Orientation: Oriented x 3 Characteristics of Speech: Appropriate for age MEMO BURCH RN - 01/23/2011 16:43 CDT ED Psychosocial Affect/Behavior: Calm Domestic Abuse Concerns: None MEMO BURCH RN - 01/23/2011 16:43 CDT Gastrointestinal Nutrition ED: Adequate MEMO BURCH RN - 01/23/2011 16:43 CDT Musculoskeletal Fall Prevention Education Provided: NA MEMO BURCH RN - 01/23/2011 16:43 CDT Social Habits Alcohol Use Grid Alcohol Use: Other: occasional MEMO BURCH RN - 01/23/2011 16:43 CDT Tobacco Use Grid Type: Cigarettes Cigarette Use Packs/Day: 1.0 MEMO BURCH RN - 01/23/2011 16:43 CDT Exposure to Tobacco Smoke: Patient smokes MEMO BURCH RN - 01/23/2011 16:43 CDT [facility] [employer] Document Id: [id number] CDT!46 documented in this encounter ED Notes Shameka Lopez M.D. - 01/23/2011 5:59 PM CDT ED Disposition Summary ED Disposition Summary Entered On: 01/23/2011 17:59 CDT Performed On: 01/23/2011 17:59 CDT by SHAMEKA LOPEZ MD ED Disposition Summary Accompanied By: Alone SHAMEKA LOPEZ MD - 01/23/2011 17:59 CDT Source: [facility] [employer]!CHART Document Id: [id number] CDT!3 Shameka Lopez M.D. - 01/23/2011 4:59 PM CDT Headache, Head pain Patient: CARTER MENSAH - CF MRN Age: 30 years Sex: Female : 1980 Author: SHAMEKA LOPEZ MD Basic Information Time seen: Immediately upon arrival. History source: Patient. Arrival mode: Private vehicle, walking. History limitation: None. Additional information:: Chief Complaint from Nursing Triage Note : Chief Complaint Description. 01/23/2011 16:43 CDT Chief Complaint Description see triage note 01/23/2011 16:36 CDT Chief Complaint Description pt has had migrane since this am with nausea and light sensitivity History of Present Illness The patient presents with headache. The onset was 6 hours ago. The course/duration of symptoms is constant and worsening. Radiating pain: none. The character of symptoms is tightness, pressure and throbbing. The degree at onset was moderate. The degree at maximum was severe. The degree at present is severe. Exacerbating factors consist of light, noise, exertion neck motion. There are relieving factors including light avoidance and rest. Risk factors consist of not hypertension not lumbar puncture. Prior episodes: frequent. Therapy today: prescription medications. Preceding symptoms: visual disturbance. Associated symptoms: nausea, vomiting, photophobia, denies fever and denies chills. Review of Systems Constitutional symptoms: no fever no chills, no sweats, no weakness. Skin symptoms: no jaundice no rash, no pruritus. Eye symptoms: Pain, no recent vision problems. ENMT symptoms: no ear pain no sore throat. Respiratory symptoms: no hemoptysis no stridor. Cardiovascular symptoms: no chest pain no palpitations, no tachycardia, no diaphoresis. Gastrointestinal symptoms: no abdominal pain no nausea, no vomiting, no diarrhea. Genitourinary symptoms: no dysuria Neurologic symptoms: Negative except as documented in HPI no altered level of consciousness, no tingling. Endocrine symptoms: no polyuria no polyphagia. Hematologic/Lymphatic symptoms: bleeding tendency negative no swollen nodes. Allergy/immunologic symptoms: no impaired immunity Additional review of systems information:All other systems reviewed and otherwise negative. Health Status Allergies: . Allergic Reactions (all) Cipro Nonallergic Reactions Silicone Canceled/Inactive Reactions Augmentin Medications: . Prescriptions and Home Medications loratadine (Claritin 10 mg oral tablet), 10 mg, 1 tab(s), PO, Daily, 30 tab(s), PRN nicotine (nicotine 14mg/24 hr transdermal film, extended release), 1 patch(es), Topical, Daily, 14 patch(es) topiramate (Topamax 50 mg oral tablet), 50 mg, 1 tab(s), PO, Daily, 180 tab(s) fexofenadine (Lashay 180 mg oral tablet), 180 mg, 1 tab(s), PO, Daily, 90 tab(s) norethindrone (Micronor 0.35 mg oral tablet), 1 tab(s), PO, Daily, start first tablet today, 90 tab(s) ondansetron (Zofran 4 mg oral tablet), 4 mg, 1 tab(s), PO, q8hr, 30 tab(s), PRN tretinoin topical (tretinoin topical 0.1% gel), 1 sonya, Topical, Bedtime, (wash hands before applying), 50 gm Immunizations: Include Immunizations. Immunizations reviewed. history: not currently . Past Medical/ Family/ Social History Medical history: Medical history. No active or resolved past medical history items have been selected or recorded. Surgical history: Surgical history. Mantoux test ([id number]) in 2011 at 29 Years. Mantoux test ([id number]) in 2010 at 29 Years. Endometrial sampling (biopsy) with or without endocervical sampling (biopsy), without cervical dilation, any method (separate procedure) (18850) in 2009 at 29 Years. Nasal sinus ([id number]) in 2000 at 20 Years. Comments: 06/10/2010 16:11 - SANDRINE FULLER RN sinus surgeries Tonsillectomy with adenoidectomy ([id number]) in 1994 at 13 Years. Family history: Family history. Liver Mother Comments: 08/16/2010 09:57 - JENNIFER LIN FIRE POT OPERATOR Liver failure Diabetes mellitus Mother Asthma Sister Hypertension Father MEDRANO - Headache Father Social history: Reviewed as documented in chart, Tobacco use: Regularly, Drug use: Denies, Occupation: Employed. Problem list: . All Problems Abnormal Pap / 795.00 / Confirmed Acne vulgaris / 706.1 / Confirmed Date of onset unknown Migraine headache / 346.90 / Confirmed no known date of onset Sinusitis / 473.9 / Confirmed Physical Examination Vital signs: Vital Signs, 01/23/2011 16:36 CDT Temperature Core 37.1 C Peripheral Pulse Rate 63 /min Respiratory Rate 20 /min SpO2 100 % Systolic Blood Pressure 101 mmHg Diastolic Blood Pressure 66 mmHg Mean Arterial Pressure 78 mmHg BP Location Right upper Oxygen saturation Oxygen Therapy & Oxygenation Information. 01/23/2011 16:36 CDT Oxygen Therapy Room air General: Alert. moderate distress. Skin: Warm. dry. intact. no pallor. Head: Normocephalic. atraumatic. Neck: Trachea midline. no tenderness. Eye: Pupils are equal, round and reactive to light. normal conjunctiva. Ears, nose, mouth and throat: Oral mucosa moist Cardiovascular: Regular rate and rhythm. Normal peripheral perfusion. Respiratory: Lungs are clear to auscultation. respirations are non-labored. breath sounds are equal. Gastrointestinal: Soft. Nontender. Normal bowel sounds. Back: Normal alignment Musculoskeletal: Normal strength Neurological: Alert and oriented to person, place, time, and situation. No focal neurological deficit observed. Cranial nerves II - XII: facial droop: without forehead involved. Coordination: normal. Lymphatics: No lymphadenopathy Psychiatric: Appropriate mood & affect. normal judgment. Medical Decision Making Differential Diagnosis:Migraine, tension headache, sinusitis, dehydration. Documents reviewed:Emergency department nurses' notes. OrdersLaunch Orders, Patient Care: ED MEDRANO - Simple (Order Processing) Vital Signs q 30 Minutes - ED (Order Processing): 01/23/2011 17:01 CDT Pharmacy: ketorolac (Order Processing): 60 mg, IM, Once ondansetron ODT (Order Processing): 4 mg, PO, Once ED: Oxygen - ER (Order Processing): 01/23/2011 17:01 CDT, Once, Stat, PRN to keep oxygen saturation above 95%., 24Launch Orders, Pharmacy: Flonase 0.05 mg/inh nasal spray (Order Processing): 2 spray(s), Nasal, OnceLaunch Orders. Pharmacy: Zyrtec (Order Processing): 10 mg, PO, Daily Reexamination/ Reevaluation Re-examination/Re-evaluation:Vital signs Reviewed Results: results included from flowsheet : Vital Signs(Date Range: 01/22/2011 0:00 CDT - 01/23/2011 23:19 CDT), Course Improving, Assessment multiple triggers, in court wrt ex spouse, smokes, has untreated seasonal allergies. Impression and Plan Diagnosis Migraine headache (Discharge, Emergency medicine, Medical) Sinusitis (Discharge, Emergency medicine, Medical) Discharge plan Condition: Stable. Dispositioned: To home. Patient was given the following educational materials: ALLERGIC RHINITIS, ALLERGIC RHINITIS (Infant), ALLERGIC RHINITIS. Limitations: Limited activity. Follow up with: Follow up with primary care provider In 15 days 02/07/2011; ANDREW VERA Within As Needed. Counseled: Patient, Regarding diagnosis, Regarding diagnostic results, Regarding treatment plan, Regarding prescription, Patient indicated understanding of instructions. Source: [facility] [employer] Document Id: [id number]} Memo Burch, R.N. - 01/23/2011 4:36 PM CDT ED Triage Assessment ED Triage Assessment Entered On: 01/23/2011 16:40 CDT Performed On: 01/23/2011 16:36 CDT by MEMO BURCH RN Reason For Visit Problems(Active) Abnormal Pap Name of Problem: Abnormal Pap ; Onset Date: 10/21/2009 ; Recorder: JENNIFER LIN LPN; Confirmation: Confirmed ; Classification: Nursing ; Code: 1231 ; Contributor System: [employer] ; Last Updated: 08/16/2010 4:50 CDT ; Life Cycle Date: 08/16/2010 ; Life Cycle Status: Active ; Responsible Provider: JENNIFER LIN LPN; Vocabulary: ICD-9-CM Acne vulgaris Name of Problem: Acne vulgaris ; Recorder: ALLEN BEDOYA RN; Confirmation: Confirmed ;Classification: Nursing ; Code: 1231 ; Contributor System: [employer] ; Last Updated: 12/17/2010 6:55 CDT ; Life Cycle Date: 12/17/2010 ; Life Cycle Status: Active ; Responsible Provider: ALLEN BEDOYA; Vocabulary: ICD-9-CM Migraine headache Name of Problem: Migraine headache ; Onset Date: 04/17/1989 ; Recorder: SANDRINE FULLER RN; Confirmation: Confirmed ; Classification: Nursing ; Code: 1231 ; Contributor System: [employer] ; Last Updated: 08/16/2010 4:54 CDT ; Life Cycle Date: 06/10/2010 ; Life Cycle Status: Active ; Responsible Provider: SANDRINE FULLER RN; Vocabulary: ICD-9-CM Sinusitis Name of Problem: Sinusitis ; Onset Date: 05/19/2000 ; Recorder: SANDRINE FULLER RN; Confirmation: Confirmed ; Classification: Nursing ; Code: 1231 ; Contributor System: [employer] ; Last Updated: 08/16/2010 4:52 CDT ; Life Cycle Date: 06/10/2010 ; Life Cycle Status: Active ; Responsible Provider: SANDRINE FULLER RN; Vocabulary: ICD-9-CM Diagnoses(Active) Headache Date: 01/23/2011 16:36 CDT ; Diagnosis Type: Reason For Visit ; Confirmation: Complaint of ; Classification: Medical ; Clinical Service: Emergency medicine ; Code: PNED ; Probability: 0 ; Diagnosis Code: [id number] Triage Chief Complaint Description: pt has had migrane since this am with nausea and light sensitivity Information Given By: Patient Accompanied By: Alone Mode of Arrival ED: Private vehicle Track: Medical Languages: Argentine Vital Signs Assessed: Yes MEMO BURCH RN - 01/23/2011 16:36 CDT Vital Signs Temperature Core: 37.1C(Converted to: 98.8DegF) Peripheral Pulse Rate: 63/min Respiratory Rate: 20/min Systolic Blood Pressure: 101mmHg Diastolic Blood Pressure: 66mmHg NIBP Mean: 78mmHg BP Location: Right upper extremity SpO2: 100% Oxygen Therapy: Room air MEMO BURCH RN - 01/23/2011 16:36 CDT Pain Assessment Pain Symptoms: Yes MEMO BURCH RN - 01/23/2011 16:36 CDT Pain Pain Assessment Grid Pain 1 Location: Head Laterality: Right Intensity: 6 MEMO BURCH RN - 01/23/2011 16:36 CDT ED Physician Notification Time ED Physician Notification Time: 01/23/2011 16:40 CDT MEMO BURCH RN - 01/23/2011 16:36 CDT MORALES MORALES Level 1: No MORALES Level 2: No MORALES Level 3: One MEMO BURCH RN - 01/23/2011 16:36 CDT DCP GENERIC CODE Tracking Acuity: 4 -Less Urgent Tracking Group: [facility] ED MEMO BURCH RN - 01/23/2011 16:36 CDT Allergy Allergies (Active) Cipro Estimated Onset Date: Unspecified ; Created By: YASMANY CAVANAUGH RN; Reaction Status: Active ; Category: Drug ; Substance: Cipro ; Type: Allergy ; Updated By: YASMANY CAVANAUGH RN; Reviewed Date: 11/30/2010 18:36 CDT Silicone Estimated Onset Date: Unspecified ; Created By: JENNIFER FRANCIS RN; Reaction Status: Active ; Category: Drug ; Substance: Silicone ; Type: Sensitivity ; Updated By: JENNIFER FRANCIS RN; Reviewed Date: 11/30/2010 18:36 CDT ID Screen Drug Resistant Organism: No MEMO BURCH RN - 01/23/2011 16:36 CDT Immunizations Last Tetanus: < 5 years Influenza: Last year MEMO BURCH RN - 01/23/2011 16:36 CDT Source: [facility] [employer]OWER[employer]ART Document Id: [id number] CDT!41 documented in this encounter Miscellaneous Notes Miscellaneous - Memo Burch R.N. - 01/23/2011 6:02 PM CDT Valuables/Belongings Valuables/Belongings Entered On: 01/23/2011 18:02 CDT Performed On: 01/23/2011 18:02 CDT by MEMO BURCH RN Valuables/Belongings Home Medication Disposition: None brought in with patient MEMO BURCH RN - 01/23/2011 18:02 CDT Source: [employer] Document Id: [id number] CDT!3 Miscellaneous - Memo Burch RLashawnN. - 01/23/2011 4:23 PM CDT Facility Charge Ticket Facility Charge Ticket Entered On: 01/23/2011 18:02 CDT Performed On: 01/23/2011 16:23 CDT by MEMO BURCH RN Facility Charge TVL Level for Facility Charge Ticket: Level 4 Mode of Arrival ED: Private vehicle [facility] Mode of Arrival Interpreted: Standard [facility] Process Management: None [facility] Order Management: EKG, RT, Ancillary Services 30 Minutes Critical Care: No [facility] Nursing Assessment: Triage and 1-2 nursing assessments [facility] Disposition: Discharge [facility] Total Points with Diagnosis Control: 8 [facility] Visit Level: 18407 Level 4 MEMO BURCH RN - 01/23/2011 18:02 CDT Source: [employer] Document Id: [id number] CDT!12 documented in this encounter Plan of Treatment Not on filedocumented as of this encounter Visit Diagnoses Not on filedocumented in this encounter
--- OUTSIDE RECORDS SUMMARY | 2022-03-16 15:10 | XMS_ITS | Encounter Summary ---
:1980 Author Organization [facility] Address [address] [place] [address] Care Team Providers Name Role Phone Unavailable Primary Care Provider Unavailable Encounter Details Date Type Department Care Team Description 03/31/2011 Hospital Encounter HX [facility] ME Andrew Vera, LO, C.N.P., D. N.P. [address] [place] [address] (Wo rk) Social History Tobacco [...] Progress Notes Andrew Vera D.N.P., C.N.P. - 03/31/2011 12:00 AM CST [id number] CHIEF COMPLAINT/REASON FOR VISIT At-home positive test. HISTORY OF PRESENT ILLNESS Patient is a 30-year-old female that presents to clinic today stating that she thinks her last menses was probably January 29, 2011. She reports that she does take her control on a daily basis but report that there sometimes are to two to three hours difference in the timeframes that she is taking it. She reports that she has been having some breast tenderness. She reports that secondary to her recent miscarriage that she had sustained over the summer, she is more concerned. She comes in today to just for reassurance. She otherwise denies having any other further concerns or complaints at this time. PAST MEDICAL/SURGICAL HISTORY Past medical, surgical, family history reviewed. Please see chart. CURRENT MEDICATIONS Reviewed. Please see chart. ALLERGIES Reviewed. Please see chart. PHYSICAL EXAMINATION Patient is an alert, well-nourished 30-year-old female who appears to be in no acute distress. Head is normocephalic, atraumatic. Remainder of her examination deferred this time. IMPRESSION/REPORT/PLAN At-home positive test. PLAN Discussed the findings at length with patient. She is presently to discontinue any of her control as she is to start taking a multivitamin. I indicated risk factors for at length indicating smoking as one of them as we will work on smoking cessation, but the patient elected to do this on her own. Indicated that she is to follow up at her 10-12 week OB appointment in which the patient states an understanding of this plan. She states reassurance and otherwise denies having any other further questions or concerns. Patient ambulated out of the clinic in no acute distress. Patient Education Ready to learn No apparent learning barriers were identified Learning preferences include listening Explained diagnosis and treatment plan Patient/Child/Caregiver expressed understanding of the content Andrew Vera D.N.P., F.N.P. / Electronically Signed By: ANDREW VERA DNP, FNP On: 04/12/2011 11:34 AM Source: [facility] MHSDOLBEYNONRADSYS Document Id: [id number] LY PRACTITIONER documented in this encounter Nursing Notes Conversion, Historical Provider Ser - 04/08/2011 3:38 PM CST Referral Referral to OB @ [facility]. Appt scheduled for 04-12-11 @ 2:30 pm w/Arleen Negrete. Pt to come 15 min. early, bring insurance card & photo ID. Pt informed of appt info; however she states she'sbleeding and has talked with a nurse @ [facility] - the nurse is to call her back after talking with an MD- she may be seen today. Electronically Signed By: ALVIN MAIN LPN On: 04/08/2011 03:40 PM Source: [facility] POWERCHART Document Id: [id number] documented in this encounter Miscellaneous Notes Miscellaneous - Andrew Vera D.N.P., C.N.P. - 03/31/2011 4:32 PM FAMILY PRACTITIONER Ambulatory Patient Summary [id number] [place] [address] Visit Information Name: CARTER MENSAH Current Date: 03/31/2011 16:32:51 Primary Care Provider: ANDREW VERA DNP, FNP Your Medications Here is a list of your medications. It is important to take your medications as directed. Use a pillbox or chart to help remind you to take your medications. Please let your doctor or nurse know if you have problems taking your medications. Medication/Strength Dose Route Frequency Indications/Special Instructions/Comments multivitamin, ( Multivitamins oral tablet) See Instructions Take one multivitamin daily. erythromycin topical (erythromycin topical 2% gel) 1 [...] Lipid Panel every 5 years Age 20-75 03/31/2011 Checks blood for good (HDL) and bad (LDL) cholesterol. Know your numbers, they are one indicator of your risk for heart attack and stroke. Vaccine: Tetanus every 10 years 06/13/2003 06/10/2013 Immunization to help prevent you from getting the serious disease Tetanus (Lockjaw). Your Upcoming Appointments Date Time Location Reason Provider No Appointments found Your Goals/Additional instructions: Source: [facility] POWERCHART Document Id: [id number] LY PRACTITIONER Miscellaneous - Andrew Vera D.N.P., C.N.P. - 03/31/2011 4:32 PM FAMILY PRACTITIONER Ambulatory Depart Summary [address] [id number] Visit Information Name: CARTER MENSAH Current Date: 03/31/2011 16:32:51 Physicians Attending Physician: ANDREW VERA DNP, FNP [...] medications. Medication/Strength Dose Route Frequency Indications/Special Instructions/Comments multivitamin, ( Multivitamins oral tablet) See Instructions Take one multivitamin daily. erythromycin topical (erythromycin topical 2% gel) 1 sonya Topical two times a day as needed for acne Additional Information: Yes - Current list of reconciled medications is provided and explained to the patient and/or family, guardian/caregiver. Source: [facility] POWERCHART Document Id: [id number] LY PRACTITIONER Miscellaneous - Guido Merchant L.P.N. - 03/31/2011 3:41 PM CST Health Assessment Health Assessment Entered On: 03/31/2011 15:41 FAMILY PRACTITIONER Performed On: 03/31/2011 15:41 FAMILY PRACTITIONER by GUIDO MERCHANT LPN Health Assessment Complete Health Assessment Complete or Modified : Annual Health Assessment Annual Health Assessment Completed : Yes GUIDO MERCHANT LPN - 03/31/2011 15:41 FAMILY PRACTITIONER Nutrition Nutrition Risk Factors by History Adult : None GUIDO MERCHANT LPN - 03/31/2011 15:41 FAMILY PRACTITIONER Functional Current Daily Living Assistance : None GUIDO MERCHANT LPN - 03/31/2011 15:41 FAMILY PRACTITIONER Dependent Habits Tobacco Use/Currently Using : Yes Tobacco Use/Advised to Quit : Yes Exposure to Tobacco Smoke : Patient smokes Smoking Status : Smoker GUIDO MERCHANT LPN - 03/31/2011 15:41 FAMILY PRACTITIONER Tobacco Use Grid Type : Cigarettes Cigarette Use Packs/Day : 1.0 GUIDO MERCHANT LPN - 03/31/2011 15:41 FAMILY PRACTITIONER Caffeine Use Grid Caffeine Use : Current Type : Soft drinks Frequency : Daily GUIDO MERCHANT LPN - 03/31/2011 15:41 FAMILY PRACTITIONER Recreational Drug Use Grid Drug Use : None GUIDO MERCHANT LPN - 03/31/2011 15:41 FAMILY PRACTITIONER Psychosocial Domestic Abuse Concerns : None GUIDO MERCHANT LPN - 03/31/2011 15:41 FAMILY PRACTITIONER Advance Directive Advanced Directives : No GUIDO MERCHANT LPN - 03/31/2011 15:41 FAMILY PRACTITIONER Educ Needs Learning Style Preference Adult Grid Patient : None Family : None GUIDO MERCHANT LPN - 03/31/2011 15:41 FAMILY PRACTITIONER [facility] Document Id: [id number] FAMILY PRACTITIONER!33 LY PRACTITIONER Miscellaneous - Guido Merchant L.P.N. - 03/31/2011 3:38 PM CST Adult Truck Cleaner Intake/History Adult Truck Cleaner Intake/History Entered On: 03/31/2011 15:41 FAMILY PRACTITIONER Performed On: 03/31/2011 15:38 FAMILY PRACTITIONER by GUIDO MERCHANT LPN Intake Chief Complaint : positive at home LMP Date : 01/29/2011 Temperature Core : 36.8C(Converted to: 98.2DegF) Peripheral Pulse Rate : 64/min Respiratory Rate : 18/min Heart Rhythm : Regular Systolic Blood Pressure : 122mmHg Diastolic Blood Pressure : 72mmHg NIBP Mean : 89mmHg BP Location : Right upper extremity Blood Pressure Cuff Size : Regular Actual Weight : 86kg(Converted to: 189lb 10oz) Weight Source : Standing scale Dosing Weight Clinic : 86.00kg GUIDO MERCHANT LPN - 03/31/2011 15:38 FAMILY PRACTITIONER Subjective Pain Symptoms : No GUIDO MERCHANT LPN - 03/31/2011 15:38 FAMILY PRACTITIONER Dependent Habits Tobacco Use/Currently Using : No Tobacco Use/Last 12 months : No Tobacco Use/Advised to Quit : No Exposure to Tobacco Smoke : Patient smokes Smoking Status : Smoker GUIDO MERCHANT LPN - 03/31/2011 15:38 FAMILY PRACTITIONER Tobacco Use Grid Type : Cigarettes Cigarette Use Packs/Day : 1.0 GUIDO MERCHANT [facility] - 03/31/2011 15:38 FAMILY PRACTITIONER Caffeine Use Grid Caffeine Use : Current Type : Soft drinks Frequency : Daily GUIDO MERCHANT [facility] - 03/31/2011 15:38 FAMILY PRACTITIONER Recreational Drug Use Grid Drug Use : None GUIDO MERCHANT [facility] - 03/31/2011 15:38 FAMILY PRACTITIONER Allergy Allergies (Active) Cipro Estimated Onset Date: Unspecified ; Created By: YASMANY CAVANAUGH RN; Reaction Status: Active ; Category: Drug ; Substance: Cipro ; Type: Allergy ; Updated By: YASMANY CAVANAUGH RN; Reviewed Date: 03/22/2011 17:58 FAMILY PRACTITIONER Silicone Estimated Onset Date: Unspecified ; Created By: JENNIFER FRANCIS RN; Reaction Status: Active ; Category: Drug ; Substance: Silicone ; Type: Sensitivity ; Updated By: JENNIFER FRANCIS RN; Reviewed Date: 03/22/2011 17:58 FAMILY PRACTITIONER Source: [facility] POWERCHART Document Id: [id number] FAMILY PRACTITIONER!36 LY PRACTITIONER documented in this encounter Plan of Treatment Not on filedocumented as of this encounter Visit Diagnoses Not on filedocumented in this encounter
--- OUTSIDE RECORDS SUMMARY | 2022-03-16 15:10 | XMS_ITS | Encounter Summary ---
:1980 Author Organization [facility] Address [address] [place] [address] Care Team Providers Name Role Phone Unavailable Primary Care Provider Unavailable Encounter Details Date Type Department Care Team Description 04/15/2010 Hospital Encounter HX [facility] INPT/OBSRV Pita Lyon M.D. [address] [place] [address] 021 (Wo rk) Social History Tobacco Use [...]
--- OUTSIDE RECORDS SUMMARY | 2022-03-16 15:10 | XMS_ITS | Encounter Summary ---
:1980 [facility] Address [address] [place] [address] Care Team Providers Name Role Phone Unavailable Primary Care Provider Unavailable Encounter Details Date Type Department Care Team Description 04/12/2011 Hospital Encounter [facility] Gutierrez Morrell III, M.D. [address] [place] [phone] (Wo rk) Social History Tobacco Use [...] as of this encounter Discharge Summaries Aishwarya Rice R.N. - 04/12/2011 5:28 PM CST ED Discharge Instructions [address] [address] Name: CARTER MENSAH Date of : 1980 12:00 AM Visit Date: 04/12/2011 4:44 PM Address: [address] [place] [phone] Primary Care Provider: ANDREW VERA DNP, IMPROVEMENT LEAD IMPORTANT: [facility] in [place] would like to thank you for allowing us to assist you with your healthcare needs. The following includes patient education materials and informationregarding your injury/illness. Follow-Up Instructions: With: Address: When: ANDREW VERA [address] [place] [id number] Business (1) Within 3 -5 days Comments: Patient Education Materials: [id number] MIGRAINE HEADACHE Migraine headaches are related to [...] -- Difficulty with speech or vision ?? [phone] [employer], [address] [place] [address], [place] [address]. All rights reserved. This information is not intended as a substitute for professional medical care. Always follow your healthcare professional's instructions. Discharge Prescriptions & Home Medications: Medication/Strength Dose Route Frequency Indications/Special Instructions/Comments acetaminophen (Tylenol 500 mg oral tablet) 2 tab(s) Oral Pain ondansetron (ondansetron 4 mg oral [...] a ride home with a responsible libertarian. IRODRIKC GINA MARIE , or responsible libertarian have received this information and my questions have been answered. I have discussed any challenges I see with this plan with the nurse or physician. Patient Signature or Responsible Republican/Relationship Date/Time Provider Signature Date/Time Medication Reconciliation: Reconciliation [...] or physician. Patient Signature or Responsible Republican/Relationship Date/Time Provider Signature Date/Time Source: [facility] Document Id: [id number] URER MACHINE Aishwarya Rice R.N. - 04/12/2011 5:28 PM CST ED Depart Summary [facility] Emergency Department Clinical Discharge Summary PERSON INFORMATION Name CARTER MENSAH Age 30 Years 1980 12:00 AM Sex Female Language Slovenian PCP ANDREW VERA DNP, IMPROVEMENT LEAD Marital Status Single Visit Id Visit Reason Headache; MIGRAINE Specialty Enc Type Emergency Med Service Emergency Medicine Referred by Track Group [facility] ED Discharge 04/12/2011 5:28 PM Tracking Id [id number] Checkout 04/12/2011 5:28 PM Checkin 04/12/2011 4:44 PM Acuity 4 -Less Urgent Dispo Type * Discharged to Home or Self Care Arrival 04/12/2011 4:44 PM Reg Status LOS 000 00:44 Address: [address] [place] [phone] Comment: PROVIDER INFORMATION Provider Role Assigned Unassigned GUTIERREZ MORRELL III, MD ED Provider 04/12/2011 4:46 PM AISHWARYA RICE BURR FILER Nurse 04/12/2011 4:46 PM DIAGNOSIS Intractable classical migraine headache Comment: PATIENT EDUCATION INFORMATION Instructions: HEADACHE, Migraine (Classical) Follow up: With: Address: When: ANDREW VERA [address] [place] [id number] [facility] (1) Within 3 -5 days Comments: Source: [facility] [employer] Document Id: [id number] URER MACHINE documented in this encounter Nursing Notes Aishwarya Rice R.N. - 04/12/2011 5:11 PM CST ED Pain Assessment ED Pain Assessment Entered On: 04/12/2011 17:12 MEASURER MACHINE Performed On: 04/12/2011 17:11 MEASURER MACHINE by AISHWARYA RICE RN Pain Assessment Pain Symptoms : Yes AISHWARYA RICE RN - 04/12/2011 17:11 MEASURER MACHINE Source: [facility] [employer] Document Id: [id number] MEASURER MACHINE!3 URER MACHINE Aishwarya Rice R.N. - 04/12/2011 4:46 PM CST ED Primary Assessment ED Primary Assessment Entered On: 04/12/2011 16:51 MEASURER MACHINE Performed On: 04/12/2011 16:46 MEASURER MACHINE by AISHWARYA RICE RN Reason For Visit Problems(Active) Abnormal Pap Name of Problem: Abnormal Pap ; Onset Date: 10/21/2009 ; Recorder: JENNIFER LIN LPN; Confirmation: Confirmed ; Classification: Nursing ; Code: 1231 ; Contributor System: [employer] ; Last Updated: 08/16/2010 9:50 CDT ; Life Cycle Date: 08/16/2010 ; Life Cycle Status: Active ; Responsible Provider: JENNIFER LIN LPN; Vocabulary: ICD-9-CM Acne vulgaris Name of Problem: Acne vulgaris ; Recorder: ALLEN BEDOYA RN; Confirmation: Confirmed ;Classification: Nursing ; Code: 1231 ; Contributor System: [employer] ; Last Updated: 12/17/2010 11:55 CDT ; Life Cycle Date: 12/17/2010 ; Life Cycle Status: Active ; Responsible Provider: ALLEN BEDOYA RN; Vocabulary: ICD-9-CM ; Comments: 12/17/2010 11:55 - ALLEN BEDOYA RN Date of onset unknown Migraine headache Name of Problem: Migraine headache ; Onset Date: 04/17/1989 ; Recorder: SANDRINE FULLER RN; Confirmation: Confirmed ; Classification: Nursing ; Code: 1231 ; Contributor System: [employer] ; Last Updated: 08/16/2010 9:54 CDT ; Life Cycle Date: 06/10/2010 ; [...] Code: 1231 ; Last Updated: 03/31/2011 16:32 MEASURER MACHINE ; Life Cycle Status: Active ; Responsible Provider: ANDREW VERA DNP, FNP; Vocabulary: ICD-9-CM Sinusitis Name of Problem: Sinusitis ; Onset Date: 05/19/2000 ; Recorder: SANDRINE FULLER RN; Confirmation: Confirmed ; Classification: Nursing ; Code: 1231 ; Contributor System: [employer] ; Last Updated: 08/16/2010 9:52 CDT ; Life Cycle Date: 06/10/2010 ; Life Cycle Status: Active ; Responsible Provider: SANDRINE FULLER RN; Vocabulary: ICD-9-CM Diagnoses(Active) Headache Date: 04/12/2011 ; Diagnosis Type: Reason For Visit ; Confirmation: Complaint of ; ClinicalDx: Headache ; Classification: Medical ; Clinical Service: Emergency medicine ; Code: PNED ; Probability: 0 ; Diagnosis Code: [id number] Triage Chief Complaint Description : 30 year old female presents to ed with c/o migraine headache. Patient has a history of migraines and states this is a normal migraine Information Given By : Patient Accompanied By : Daughter, Friend Mode of Arrival ED : Private vehicle Track : Medical Languages : Slovenian Vital Signs Assessed : Yes AISHWARYA RICE RN - 04/12/2011 16:46 MEASURER MACHINE Vital Signs Temperature Core : 36.4C(Converted to: 97.5DegF) (LOW) Peripheral Pulse Rate : 88/min Respiratory Rate : 16/min Systolic Blood Pressure : 126mmHg Diastolic Blood Pressure : 70mmHg NIBP Mean : 89mmHg SpO2 : 97% Oxygen Therapy : Room air AISHWARYA RICE RN - 04/12/2011 16:46 MEASURER MACHINE Pain Assessment Pain Symptoms : Yes AISHWARYA RICE RN - 04/12/2011 16:46 MEASURER MACHINE Pain Pain Assessment Grid Pain 1 Location : Head Laterality : Bilateral Intensity : 5 Time Pattern : Acute Onset : Gradual Quality : Throbbing Pain Radiation : No Aggravating Factors : Light, Movement, Noise Alleviating Factors : None Associated Symptoms : Nausea, Vomiting Interventions : Medications, Repositioning, Rest AISHWARYA RICE RN - 04/12/2011 16:46 MEASURER MACHINE ED Physician Notification Time ED Physician Notification Time : 04/12/2011 16:49 MEASURER MACHINE AISHWARYA RICE RN - 04/12/2011 16:46 MEASURER MACHINE MORALES DCP GENERIC CODE Tracking Acuity : 4 -Less Urgent Tracking Group : [facility] ED AISHWARYA RICE RN - 04/12/2011 16:46 MEASURER MACHINE Allergy Allergies (Active) Augmentin XR Estimated Onset Date: Unspecified ; Created By: GUIDO WALLACE LPN; Reaction Status: Active ; Category: Drug ; Substance: Augmentin XR ; Type: Allergy ; Updated By: GUIDO WALLACE LPN; Reviewed Date: 03/31/2011 15:42 MEASURER MACHINE Cipro Estimated Onset Date: Unspecified ; Created By: YASMANY CAVANAUGH RN; Reaction Status: Active ; Category: Drug ; Substance: Cipro ; Type: Allergy ; Updated By: YASMANY CAVANAUGH RN; Reviewed Date: 03/31/2011 15:41 MEASURER MACHINE Silicone Estimated Onset Date: Unspecified ; Created By: JENNIFER FRANCIS RN; Reaction Status: Active ; Category: Drug ; Substance: Silicone ; Type: Sensitivity ; Updated By: JENNIFER FRANCIS RN; Reviewed Date: 03/31/2011 15:41 MEASURER MACHINE ID Screen Drug Resistant Organism : No AISHWARYA RICE RN - 04/12/2011 16:46 MEASURER MACHINE Respiratory Airway : Patent Respirations : Unlabored Respiratory Pattern : Regular AISHWARYA RICE RN - 04/12/2011 16:46 MEASURER MACHINE Cardiovascular Heart Rhythm : Regular Skin Color : Normal for ethnicity Skin Description : Dry Skin Temperature : Warm AISHWARYA RICE RN - 04/12/2011 16:46 MEASURER MACHINE Neurological Level of Consciousness : Alert Orientation : Oriented x 3 Characteristics of Speech : Appropriate for age AISHWARYA RICE RN - 04/12/2011 16:46 MEASURER MACHINE ED Psychosocial Affect/Behavior : Calm Domestic Abuse Concerns : None AISHWARYA RICE RN - 04/12/2011 16:46 MEASURER MACHINE Gastrointestinal Nutrition ED : Adequate AISHWARYA RICE RN - 04/12/2011 16:46 MEASURER MACHINE /OB Assessment Status : Patient denies Note : STATES SHE MISCARRIED LAST WEEK AT 5 WEEKS AISHWARYA RICE RN - 04/12/2011 16:46 MEASURER MACHINE Musculoskeletal Fall Prevention Education Provided : Yes AISHWARYA RICE RN - 04/12/2011 16:46 MEASURER MACHINE Social Habits Tobacco Use/Currently Using : Yes Tobacco Use/Advised to Quit : Yes Exposure to Tobacco Smoke : Patient smokes Smoking Status : Current status unknown AISHWARYA RICE RN - 04/12/2011 16:46 MEASURER MACHINE Tobacco Use Grid Type : Cigarettes Cigarette Use Packs/Day : 1.0 AISHWARYA RICE RN - 04/12/2011 16:46 MEASURER MACHINE Alcohol Use Grid Alcohol Use : Other: occasional AISHWARYA RICE RN - 04/12/2011 16:46 MEASURER MACHINE Recreational Drug Use Grid Drug Use : None AISHWARYA RICE RN - 04/12/2011 16:46 MEASURER MACHINE Source: [employer] Document Id: [id number] MEASURER MACHINE!80 URER MACHINE documented in this encounter ED Notes Aishwarya Rice R.N. - 04/12/2011 5:12 PM CST ED Disposition Summary ED Disposition Summary Entered On: 04/12/2011 17:12 MEASURER MACHINE Performed On: 04/12/2011 17:12 MEASURER MACHINE by AISHWARYA RICE BURR FILER Disposition Summary Accompanied By : Kade Mode of Discharge : Ambulatory Transportation : Private vehicle Patient Status at Discharge from ED : Unchanged AISHWARYA RICE RN - 04/12/2011 17:12 MEASURER MACHINE Source: [facility] [employer] Document Id: [id number] MEASURER MACHINE!6 URER MACHINE Gutierrez Morrell M.D. - 04/12/2011 5:07 PM CST Headache Patient: CARTER MENSAH Age: 30 years Sex: Female : 1980 Author: GUTIERREZ MORRELL III, MD Attachments: None Associated Diagnosis: Intractable classical migraine headache Basic Information Time seen: Immediately upon arrival. History source: Patient. Arrival mode: Private vehicle. History limitation: None. Additional information:: Chief Complaint from Nursing Triage Note : Chief Complaint Description. 04/12/2011 16:46 MEASURER MACHINE Chief Complaint Description 30 year old female presents to ed with c/o migraineheadache. Patient has a history of migraines and states this is a normal migraine History of Present Illness The patient presents with migraine. The onset wasAbrupt onset this a.m.. The course/duration of symptoms is constant. Location: Bilateral frontal. Radiating pain: none. The character of symptoms is sharp and throbbing. The degree at onset was 7 /10. . The degree at maximum was 8 /10. . The degree atpresent is 7 /10. . Exacerbating factors consist of light noise. There are relieving factors including light avoidance, noise avoidance, rest and lying down. Risk factors consist of none. Prior episodes: frequent. Therapy today: over the counter medications including tylenol and prescription medications including zofran. Preceding symptoms: typical aura. Associated symptoms: nausea, vomiting, altered vision, denies dizziness, denies fever, denies chills, denies neck pain, denies syncope, no rash, denies altered speech, no altered level of consciousness and not seizure. recent loss of at 5wks gestation. . Review of Systems Respiratory symptoms: Negative except as documented in [...] negative. Health Status Allergies: . Allergic Reactions (All) Severity not Documented Augmentin XR- No reactions were documented. Cipro- No reactions were documented. Nonallergic Reactions (All) Severity not Documented Silicone- No reactions were documented. Canceled/Inactive Reactions (All) Severity not Documented Augmentin- Diarrhea, stomach ache. Medications: . Prescriptions and Home Medications erythromycin topical (erythromycin topical 2% gel), 1 sonya, Topical, 2xDay, 60 gm, PRN: acne multivitamin, ( Multivitamins oral tablet), See Instructions, Take one multivitamin daily., 1 bottle(s) ondansetron (ondansetron 4 mg oral tablet), 4 mg, 1 tab(s), PO, q8hr, PRN: Nausea/vomiting acetaminophen (Tylenol 500 mg oral tablet), 2 tab(s), PO, PRN: Pain Past Medical/ Family/ Social History Medical history: Medical history. Active Sinusitis (473.9): Onset in 2000 at 19 years. Migraine headache (346.90): Onset in 1989 at 8 years. Comments: 06/10/2010 MEASURER MACHINE 16:12 MEASURER MACHINE - SANDRINE FULLER RN no known date of onset Surgical history: Surgical history. Mantoux test (SNOMED CT 0305660155) in 2010 at 29 Years. Mantoux test (SNOMED CT 5194221399) in 2010 at 29 Years. Endometrial sampling (biopsy) with or without endocervical sampling (biopsy), without cervical dilation, any method (separate procedure) (CPT4 24512) in 2009 at 29 Years. Nasal sinus (SNOMED CT 525083600) in 2000 at 20 Years. Comments: 06/10/2010 16:11 - SANDRINE FULLER RN sinus surgeries Tonsillectomy with adenoidectomy (SNOMED CT 86303358) in 1994 at 13 Years. Family history: Family history. Liver Mother Comments: 08/16/2010 09:57 - JENNIFER LIN LPN Liver failure Diabetes mellitus Mother Asthma Sister Hypertension Father MEDRANO - Headache Father Problem list: . All Problems Acne vulgaris / 706.1 / Confirmed Date of onset unknown Migraine headache / 346.90 / Confirmed no known date of onset Sinusitis / 473.9 / Confirmed Abnormal Pap / 795.00 / Confirmed Examination or Test, Positive Result / V72.42 / Confirmed Physical Examination Vital signs: Vital Signs, 04/12/2011 16:46 MEASURER MACHINE Temperature Core 36.4 C LOW Peripheral Pulse Rate 88 /min Respiratory Rate 16 /min SpO2 97 % Systolic Blood Pressure 126 mmHg Diastolic Blood Pressure 70 mmHg Mean Arterial Pressure 89 mmHg Oxygen saturation Oxygen Therapy & Oxygenation Information. 04/12/2011 16:46 MEASURER MACHINE Oxygen Therapy Room air General: Alert. mild distress. Skin: Warm. dry. pink. Head: Normocephalic. atraumatic. Neck: Supple. trachea midline. Eye: Pupils are equal, round and reactive to light. extraocular movements are intact. normal conjunctiva. vision unchanged. no papilledema. Cardiovascular Respiratory: Lungs are clear to auscultation. respirations are non-labored. breath sounds are equal.Symmetrical chest wall expansion. Neurological: Alert and oriented to person, place, time, and situation. No focal neurological deficit observed. CN II-XII intact. normal sensory observed. normal motor observed. normal speech observed.normal coordination observed. Medical Decision Making Differential Diagnosis:Migraine, tension headache, sinusitis. OrdersLaunch Orders. Patient Care: ED MEDRANO - Simple (Order Processing) ED Pain Management Adult (Order Processing) Pharmacy: [facility] Intramuscular (Order Processing): 50 mg, IM, Once ondansetron (Order Processing): 4 mg, IM, Once ketorolac (Order Processing): 60 mg, IM, Once Impression and Plan Diagnosis Intractable classical migraine headache (Discharge, Emergency medicine, Medical) Discharge plan Condition: Improved. Dispositioned: To home. Patient was given the following educational materials: HEADACHE, Migraine (Classical). Follow up with: Primary Care Physician, In: 3 day(s). Counseled: Patient, Family, Regarding diagnosis, Regarding treatment plan, Patient indicated understanding of instructions. prophylaxis: Discussed. Electronically Signed By: GUTIERREZ MORRELL III, MD On: 04/12/2011 05:27 PM Modified by and Electronically Signed by: GUTIERREZ MORRELL III, MD On: 04/12/2011 05:27 PM Source: [facility] [employer] Document Id: {[id number]} URER MACHINE documented in this encounter Miscellaneous Notes Miscellaneous - Aishwarya Rice RLashawnN. - 04/12/2011 5:11 PM CST Valuables/Belongings Valuables/Belongings Entered On: 04/12/2011 17:11 MEASURER MACHINE Performed On: 04/12/2011 17:11 MEASURER MACHINE by AISHWARYA IRCE RN Valuables/Belongings Home Medication Disposition : None brought in with patient AISHWARYA RICE RN - 04/12/2011 17:11 MEASURER MACHINE Source: [facility] [employer] Document Id: [id number] MEASURER MACHINE!3 URER MACHINE Miscellaneous - Aishwarya Rice RLashawnN. - 04/12/2011 4:44 PM CST Facility Charge Ticket Facility Charge Ticket Entered On: 04/12/2011 17:11 MEASURER MACHINE Performed On: 04/12/2011 16:44 MEASURER MACHINE by AISHWARYA RICE RN Facility Charge TVL Level for Facility [...] Control : 7 Lynx Visit Level : 87213 Level 3 AISHWARYA RICE RN - 04/12/2011 17:11 MEASURER MACHINE Source: [facility] [employer] Document Id: [id number] MEASURER MACHINE!12 URER MACHINE documented in this encounter Plan of Treatment Not on filedocumented as of this encounter Visit Diagnoses Not on filedocumented in this encounter
--- OUTSIDE RECORDS SUMMARY | 2022-03-16 15:10 | XMS_ITS | Encounter Summary ---
:[address] [facility] Address [address] [place] [address] Care Team Providers Name Role Phone Unavailable Primary Care Provider Unavailable Encounter Details Date Type Department Care Team Description 11/05/2010 Hospital Encounter HX [facility] ED Shayne Matthews Jr., M.D. [address] [place], [place] [phone] (Wo rk) Social History Tobacco Use Types [...] More than 4 times per year 11/09/2020 evangelical services? Do you belong to any [...] documented as of this encounter Discharge Summaries Anjali Mohamud R.N. - 11/05/2010 9:43 PM CDT ED Discharge Instructions [address] [address] Name: CARTER MENSAH Date of : 1980 12:00 AM Visit Date: 11/05/2010 8:36 PM Address: [address] [place] [phone] Primary Care Provider: ANDREW VERA DNP, RULES EXAMINER IMPORTANT: [facility] in [place] would like to thank you for allowing us to assist you with your healthcare needs. The following includes patient education materials and informationregarding your injury/illness. Follow-Up Instructions: With: Address: When: ANDREW VERA [address] [place] [id number] phone, [employer] (1) Within As Needed Comments: 1. Rest. 2. Continue your current medications. 3. To be seen back if problems. Patient Education Materials: [id number] MIGRAINE HEADACHE Migraine headaches are related to [...] -- Difficulty with speech or vision ?? [id number] [employer], [address] [place] [address], [place] [address]. All rights reserved. This information is not intended as a substitute for professional medical care. Always follow your healthcare professional's instructions. Discharge Prescriptions & Home Medications: Medication/Strength Dose Route Frequency Indications/Special Instructions/Comments estradiol [...] a day as needed for Allergy symptoms Attention: If you have any medications at [...] or physician. Patient Signature or Responsible Libertarian/Relationship Date/Time Provider Signature Date/Time Medication Reconciliation: Reconciliation [...] or physician. Patient Signature or Responsible Libertarian/Relationship Date/Time Provider Signature Date/Time Source: [facility] POWERCHART Document Id: [id number] Electronically signed by Lesley, [facility] Bradley Linebacker Crewmember [id number] at 09/18/2016 2:29 PM CDT Anjali Mhoamud, R.N. - 11/05/2010 9:43 PM CDT ED Depart Summary [facility] Emergency Department Clinical Discharge Summary PERSON INFORMATION Name CARTER MENSAH Age 30 Years 1980 12:00 AM Sex Female Language Hong Konger PCP ANDREW VERA DNP, RULES EXAMINER Marital Status Single N [id number] Visit Id Visit Reason Common migraine; Headache; migraine Specialty Enc Type Emergency Med Service Emergency Medicine Referred by Track Group [facility] ED Discharge 11/05/2010 9:43 PM Tracking Id [id number] Checkout 11/05/2010 9:43 PM Checkin 11/05/2010 8:36 PM Acuity 4 -Less Urgent Dispo Type * Discharged to Home or Self Care Arrival 11/05/2010 8:36 PM Reg Status Complete LOS 000 01:07 Address: [address] [place] [phone] Comment: PROVIDER INFORMATION Provider Role Assigned Unassigned SHAYNE MATTHEWS MD ED Provider 11/05/2010 9:03 PM ANJALI MOHAMUD RUG DYER HELPER Nurse 11/05/2010 9:12 PM DIAGNOSIS Migraine headache Comment: PATIENT EDUCATION INFORMATION Instructions: HEADACHE, Migraine (Classical) Follow up: With: Address: When: ANDREW VERA [facility] [place] [address] phone, business (1) Within As Needed Comments: 1. Rest. 2. Continue your current medications. 3. To be seen back if problems. Source: [facility] POWERCHART Document Id: [id number] Electronically signed by Lesley, [facility] Bradley Linebacker Crewmember [id number] at 09/18/2016 2:29 PM CDT documented in this encounter Nursing Notes Anjali Mohamud R.N. - 11/05/2010 9:12 PM CDT ED Primary Assessment ED Primary Assessment Entered On: 11/05/2010 21:16 CDT Performed On: 11/05/2010 21:12 CDT by ANJALI MOHAMUD RN Reason For Visit Problems(Active) Abnormal Pap Name of Problem: Abnormal Pap ; Onset Date: 10/21/2009 ; Recorder: JENNIFER LIN LPN; Confirmation: Confirmed ; Classification: Nursing ; Code: 1231 ; Contributor System: [employer] ; Last Updated: 08/16/2010 4:50 CDT ; Life Cycle Date: 08/16/2010 ; Life Cycle Status: Active ; Responsible Provider: JENNIFER LIN LPN; Vocabulary: ICD-9-CM Migraine headache Name of Problem: [...] Sinusitis ; Onset Date: 05/19/2000 ; Recorder: SANDRIEN FULLER RN; Confirmation: Confirmed ; Classification: Nursing ; Code: 1231 ; Contributor System: [employer] ; Last Updated: 08/16/2010 4:52 CDT ; Life Cycle Date: 06/10/2010 ; Life Cycle Status: Active ; Responsible Provider: SANDRINE FULLER RN; Vocabulary: ICD-9-CM Diagnoses(Active) Common migraine Date: 11/05/2010 21:13 CDT ; Diagnosis Type: Reason For Visit ; Confirmation: Complaint of ; Classification: Medical ; Clinical Service: Emergency medicine ; Code: SNOMED CT ; Probability: 0 ; Diagnosis Code: [id number] Headache Date: 11/05/2010 21:12 CDT ; Diagnosis Type: Reason For Visit ; Confirmation: Confirmed ; Classification: Medical ; Clinical Service: Emergency medicine ; Code: PNED ; Probability: 0 ; Diagnosis Code: [id number] Triage Chief Complaint Description: migraine Information Given By: Patient Accompanied By: Mother Mode of Arrival ED: Private vehicle Track: Medical Languages: Hong Konger Pain Symptoms: Yes ANJALI MOHAMUD RN - 11/05/2010 21:22 CDT Pain Pain Assessment Grid Pain 1 Location: Head Laterality: Bilateral Intensity: 4 Acceptable Intensity: 0 Time Pattern: Chronic Onset: Gradual ANJALI MOHAMUD RN - 11/05/2010 21:22 CDT ED Physician Notification Time ED Physician Notification Time: 11/05/2010 21:00 CDT ANJALI MOHAMUD RN - 11/05/2010 21:12 CDT MORALES MORALES Level 1: No MORALES Level 2: No MORALES Level 3: None ANJALI MHOAMUD RN - 11/05/2010 21:12 CDT Allergy Latex Reaction: No Latex Hives/Itch: No Latex Congestion/Eye Irr/Breathing: No Latex Symptom Progression: No Latex Previous Test: No ANJALI MOHAMUD RN - 11/05/2010 21:12 CDT Allergies (Active) Augmentin Estimated Onset Date: Unspecified ; Created By: YASMANY CAVANAUGH RN; Reaction Status: Active ; Category: Drug ; Substance: Augmentin ; Type: Allergy ; Updated By: YASMANY CAVANAUGH RN; Reviewed Date: 10/26/2010 9:27 CDT Cipro Estimated Onset Date: Unspecified ; Created By: YASMANY CAVANAUGH RN; Reaction Status: Active ; Category: Drug ; Substance: Cipro ; Type: Allergy ; Updated By: YASMANY CAVANAUGH RN; Reviewed Date: 10/26/2010 9:27 CDT Silicone Estimated Onset Date: Unspecified ; Created By: JENNIFER FRANCIS RN; Reaction Status: Active ; Category: Drug ; Substance: Silicone ; Type: Sensitivity ; Updated By: JENNIFER FRANCIS RN; Reviewed Date: 10/26/2010 9:27 CDT ID Screen Drug Resistant Organism: ANJALI Cabrera RN - 11/05/2010 21:12 CDT Syndrome Surveillance Symptoms Grid Headache: No Illness With Generalized Rash: No Muscle Pain: No New or Worsening Cough: No Shortness of Breath: No Recent Exposure to Communicable Disease: No ANJALI MOHAMUD RN - 11/05/2010 21:12 CDT Respiratory Airway: Patent Respirations: Unlabored Respiratory Pattern: Regular ANJALI MOHAMUD RN - 11/05/2010 21:12 CDT Cardiovascular Heart Rhythm: Regular Skin Color: Normal for ethnicity Skin Description: Dry Skin Temperature: Warm ANJALI MOHAMUD RN - 11/05/2010 21:12 CDT Neurological Level of Consciousness: Alert Orientation: Oriented x 3 Characteristics of Speech: Appropriate for age ANJALI MOHAMUD RN - 11/05/2010 21:12 CDT ED Psychosocial Affect/Behavior: Calm, Cooperative, Appropriate Domestic Abuse Concerns: None ANJALI MOHAMUD RN - 11/05/2010 21:12 CDT Domestic Violence Screen Partner Emotional/Physical Abuse Hx: No Other Physical Abuse: No ANJALI MOHAMUD RN - 11/05/2010 21:12 CDT Gastrointestinal Nutrition ED: Adequate ANJALI MOHAMUD RN - 11/05/2010 21:12 CDT /OB Assessment Patient Stated Symptoms: None Urine Description: Clear Urine Color: Yellow Sexually Active: Yes Contraception Used: Yes Contraception Type: Transdermal patch ANJALI MOHAMUD RN - 11/05/2010 21:12 CDT Musculoskeletal Fall Prevention Education Provided: ANJALI GONZALEZ RN - 11/05/2010 21:12 CDT Social Habits Alcohol Use Grid Alcohol Use: Other: occasional ANJALI MOHAMUD RN - 11/05/2010 21:12 CDT Tobacco Use Grid Type: Cigarettes Cigarette Use Packs/Day: 1.0 ANJALI MOHAMUD RN - 11/05/2010 21:12 CDT Exposure to Tobacco Smoke: Patient smokes ANJALI MOHAMUD RN - 11/05/2010 21:12 CDT Source: [employer] Document Id: [id number] CDT!18 documented in this encounter ED Notes Anjali Mohamud R.N. - 11/05/2010 9:41 PM CDT ED Disposition Summary ED Disposition Summary Entered On: 11/05/2010 21:42 CDT Performed On: 11/05/2010 21:41 CDT by ANJALI MOHAMUD RUG DYER HELPER Disposition Summary Accompanied By: Mother Mode of Discharge: Ambulatory Transportation: Private vehicle ANJALI MOHAMUD RN - 11/05/2010 21:41 CDT Source: [facility] [employer] Document Id: [id number] CDT!5 Shayne Matthews Jr., M.D. - 11/05/2010 9:12 PM CDT Headache Patient: CARTER MENSAH - CF MRN Age: 30 years Sex: Female : 1980 Author: SHAYNE MATTHEWS MD Basic Information Time seen: Date & time 11/05/2010 21:06:00. History source: Patient. Arrival mode: Private vehicle, walking. History limitation: None. History of Present Illness The patient presents with headache. The onset was 12 hours ago andHad just recently started back on Topamax. The course/duration of symptoms is constant and worsening. Location: Bilateral frontal typical loc. Radiating pain: none. The character of symptoms is achy, pressure and throbbing. The degree at onset was moderate. The degree at maximum was severe. The degree at present is severe. Exacerbatingfactors consist of light. The relieving factor is light avoidance. Risk factors consist of none. Prior episodes: frequent. Therapy today: over the counter medications including Naprosyn. Preceding symptoms: typical aura. Associated symptoms: nausea. Review of Systems Constitutional symptoms: Negative except [...] Allergies: . Allergic Reactions (all) Cipro, Augmentin Nonallergic Reactions Silicone Medications: . Prescriptions and Home Medications loratadine (Claritin 10 mg oral tablet), 10 mg, 1 tab(s), PO, Daily, 30 tab(s), PRN ondansetron (Zofran 4 mg oral tablet), 4 mg, 1 tab(s), PO, q8hr, 30 tab(s) topiramate (Topamax 25 mg oral tablet), 25 mg, 1 tab(s), PO, Daily, Take one tab by mouth every night for 1 week, then may increase to 2 tabs by mouth daily., 60 tab(s) nicotine (nicotine 14mg/24 hr transdermal film, extended release), 1 patch(es), Topical, Daily, 14 patch(es) estradiol (Climara 0.0375 mg/24 hours weekly transdermal film, extended release), 1 patch(es), Transdermal, Weekly, 12 patch(es) Past Medical/ Family/ Social History Medical history: Medical history. No active or resolved past medical history items have been selected or recorded. Surgical history: Surgical history. Mantoux test ([id number]) in 2010 at 29 Years. Mantoux test ([id number]) in 2011 at 29 Years. Endometrial sampling (biopsy) with or without endocervical sampling (biopsy), without cervical dilation, any method (separate procedure) (47247) in 2009 at 29 Years. Nasal sinus ([id number]) in 2000 at 20 Years. Comments: 06/10/2010 16:11 - SANDRINE FULLER RN sinus surgeries Tonsillectomy with adenoidectomy ([id number]) in 1994 at 13 Years. Family history: Family history. Liver Mother Comments: 08/16/2010 09:57 - JENNIFER LIN LPN Liver failure Diabetes mellitus Mother Asthma Sister Hypertension Father MEDRANO - Headache Father Social history: Tobacco use: Regularly, smokes .25 pack(s) per day, for the last 10 years. Problem list: . All Problems Abnormal Pap / 795.00 / Confirmed Migraine headache / 346.90 / Confirmed no known date of onset Sinusitis / 473.9 / Confirmed Physical Examination Vital signs: Per nurse's notes. General: Alert. mild distress. Skin: Warm. moist. Head: Normocephalic. atraumatic. Neck: Supple. trachea midline. no tenderness. Eye: Pupils are equal, round and reactive to light. extraocular movements are intact. normal conjunctiva. vision unchanged. Ears, nose, mouth and throat: Oral mucosa moist Cardiovascular: Regular rate and rhythm Respiratory: Respirations are non-labored Neurological: Alert and oriented to person, place, time, and situation. No focal neurological deficit observed. CN II-XII intact. normal sensory observed. normal motor observed. normal speech observed.normal coordination observed. Lymphatics: No lymphadenopathy Psychiatric: Cooperative. appropriate mood & affect. normal judgment. non-suicidal. Medical Decision Making OrdersLaunch Orders. Pharmacy: Toradol (Order Processing): 60 mg, IM, Once Vistaril IM (Order Processing): 50 mg, IM, Once Reexamination/ Reevaluation Re-examination/Re-evaluation:Time 11/05/2010 21:38:00, Course Improving, Pain status Decreased. Impression and Plan Diagnosis Migraine headache (Discharge, Emergency medicine, Medical) Migraines per her Neurologist Discharge plan Condition: Improved. Dispositioned: Time 11/05/2010 21:38:00, To home, with mother. Patient was given the following educational materials: HEADACHE, Migraine (Classical). Follow up with: ANDREW VERA Within As Needed 1. Rest. 2. Continue your current medications. 3. To be seen back if problems.. Counseled: Patient, Regarding diagnosis, Regarding diagnostic results, Regarding treatment plan, Regarding prescription, Patient indicated understanding of instructions. Source: [facility] POWERCHART Document Id: [id number]} documented in this encounter Miscellaneous Notes Miscellaneous - Anjali Mohamud R.N. - 11/05/2010 9:42 PM CDT Valuables/Belongings Valuables/Belongings Entered On: 11/05/2010 21:42 CDT Performed On: 11/05/2010 21:42 CDT by ANJALI MOHAMUD RN [facility] Home Medication Disposition: None brought in with patient ANJALI MOHAMUD RN - 11/05/2010 21:42 CDT Source: [facility] [employer] Document Id: [id number] CDT!3 Miscellaneous - Anjali Mohamud R.N. - 11/05/2010 8:36 PM CDT Facility Charge Ticket Facility Charge Ticket Entered On: 11/05/2010 21:43 CDT Performed On: 11/05/2010 20:36 CDT by ANJALI MOHAMUD RN Facility Charge TVL Level for Facility Charge Ticket: Level 4 Mode of Arrival ED: Private vehicle [facility] Mode of Arrival Interpreted: Standard [facility] Process Management: None [facility] Order Management: None 30 Minutes Critical Care: No [facility] Nursing Assessment: Triage and 1-2 nursing assessments [facility] Disposition: Discharge [facility] Total Points with Diagnosis Control: 7 [facility] Visit Level: 70112 Level 3 ANJALI MOHAMUD RN - 11/05/2010 21:42 CDT Chief Complaint 8.50.02 Reason For Visit Category: Neurology ED Chief Complaint Neurology 8.5: Headache - recurrent TVL Ca TVL for Facility Charge Ticket Dx: Level 2 ANJALI MOHAMUD RN - 11/05/2010 21:42 CDT Source: [employer] Document Id: [id number] CDT!17 documented in this encounter Plan of Treatment Not on filedocumented as of this encounter Visit Diagnoses Not on filedocumented in this encounter
--- OUTSIDE RECORDS SUMMARY | 2022-03-16 15:10 | XMS_ITS | Encounter Summary ---
:1980 Author Organization [facility] Address [address] [place] [address] Care Team Providers Name Role Phone Unavailable Primary Care Provider Unavailable Encounter Details Date Type Department Care Team Description 04/19/2010 Hospital Encounter HX [facility] INPT/OBSRV Haley Hansen M.D. Social History Tobacco Use Types Packs/Day [...]
--- OUTSIDE RECORDS SUMMARY | 2022-03-16 15:10 | XMS_ITS | Encounter Summary ---
:1980 Author Organization [facility] Address [address] [place] [address] Care Team Providers Name Role Phone Unavailable Primary Care Provider Unavailable Encounter Details Date Type Department Care Team Description 04/08/2010 Hospital Encounter HX [facility] CAM INPT/OBSRV Irlanda Lopez M.D. [address] [place] [phone] (Wo rk) Social History Tobacco Use [...]
--- OUTSIDE RECORDS SUMMARY | 2022-03-16 15:10 | XMS_ITS | Encounter Summary ---
:1980 Author Organization [facility] Address [address] [place] [address] Care Team Providers Name Role Phone Unavailable Primary Care Provider Unavailable Encounter Details Date Type Department Care Team Description 06/02/2010 Hospital Encounter HX [facility] ED Vince Lopez M.D. [address] [place] [phone] (Wo rk) Social History Tobacco Use [...] documented as of this encounter Discharge Summaries Roxanne Márquez R.N. - 06/02/2010 8:41 AM CST ED Discharge Instructions [id number] [place] [address] Name: CARTER MENSAH Date of : 1980 12:00 AM Visit Date: 06/02/2010 7:10 AM FIN: Current Date: 06/02/2010 08:41:44 Address: [address] [place] [phone] Primary Care Provider: Name: SHAMEKA LOPEZ MD IMPORTANT: [facility] would like to thank you for allowing us to assist you with your healthcare needs. We examined and treated you today on an emergency basis only. This was not a substitute for, or an effort to provide, complete medical care. If you had any cultures, special tests, or x-rays performed during your visit, your final reports will be reviewed and we will contact you ifthere are any new or significant findings other than what was discussed with you during your visit today. You have received patient education materials and information regarding your injury/illness. Follow these instructions and take all medications as prescribed. If you, ( CARTER MENSAH ), haveany problems that we have not discussed, please call or visit your doctor right away. If you cannot reach your doctor, return to the Emergency Department. Follow-Up Instructions: With: Address: When: SHAMEKA LOPEZ Within As Needed Comments: With: Address: When: Follow up with primary care provider Within As Needed Comments: Patient Education Materials: [id number] BRONCHITIS (Adult: Abx Tx) BRONCHITIS is an [...] help loosen secretions in the lungs. 5. Xsky-oqy-vhtotbl cough medicines that contain dextromethorphan (such as [...] ear pain or a stiff neck ?? [id number] [employer], [address] [place] [address], [place] [address]. All rights reserved. This information is not intended as a substitute for professional medical care. Always follow your healthcare professional's instructions. [id number] MEDICATION: ZITHROMAX You have been Zithromax (generic: azithromycin). This is an antibiotic similar to Erythromycin, but is less likely to cause stomach upset. DIRECTIONS FOR USE: Zithromax works best when taken on an EMPTY STOMACH. Take it with a full glass of water either one hour BEFORE or two hours AFTER A MEAL. If you find that it causes nausea when taken on an empty stomach, then take it with food. Take all of the medicine until it is gone, even if you are feeling better. This will ensure that your infection is fully treated. WHAT TO WATCH FOR: POSSIBLE SIDE EFFECTS: Nausea, vomiting, stomach pain or diarrhea --> Take with food and contact your doctor if any of these symptoms persist or become severe. ALLERGIC REACTION: Rash, itching, swelling, trouble breathing or swallowing --> Contact your doctor or return to this facility promptly. IMPORTANT MEDICAL CONDITIONS: Before starting this medicine, be sure your doctor knows if you have any of the following conditions: -- Allergic reaction to Erythromycin or Biaxin (clarithromycin) -- Breast feeding DRUG INTERACTIONS: Before starting this medicine, be sure your doctor knows if you are taking any ofthe following drugs: -- Propulsid (cisapride), Lanoxin (digoxin), phenothiazines (such as chlorpromazine, promethazine), Coumadin (warfarin), Ranexa (ranolazine) [NOTE: This information topic may not include all directions, precautions, medical conditions, drug/food interactions and warnings for this drug. Check with your doctor, nurse or pharmacist for any questions that you may have.] ?? [id number] [employer], [address] [place] [address], [place] [address]. All rights reserved. This information is not intended as a substitute for professional medical care. Always follow your healthcare professional's instructions. [id number] MEDICATION: TAMIFLU (Oseltamivir) TAMIFLU (generic name: oseltamivir) is in a class of drugs called antivirals. It is used for the treatment of influenza to reduce symptoms and shorten the illness. It works best when started within thefirst 48 hours of the start of symptoms. This medication will not keep you from spreading the virus to others. Tamiflu is also used to help prevent infection in a person who is exposed to someone who has influenza. It may be prescribed with another antiviral medicine. Tamiflu can be used in adults and children over 1 year of age. This medication is not a substitute for the flu vaccine. DIRECTIONS FOR USE: ?? This medication may be taken with or without food. ?? When used to treat influenza, the medication is usually taken two times a day for five days. ?? When used to prevent the flu, it is taken once a day for as long as prescribed. ?? If you miss a dose of this medication, take it as soon as possible. If it is almost time for yournext dose, skip the missed dose and resume your regular schedule. Do not take a double dose to make up for a missed dose. IMPORTANT BEFORE STARING THIS MEDICATION MEDICAL CONDITIONS: Before starting this medication, be sure your doctor knows if any of the following are true for you: ?? You received the nasal flu vaccine in the past two weeks ?? You are or ?? You have kidney, liver, or lung disease WHAT TO WATCH FOR: POSSIBLE SIDE EFFECTS: ?? Nausea or vomiting. To help prevent this, take Tamiflu with food. If this does not help, contact your doctor. ?? [id number], stomach pain, burning or itchy eyes, dizziness, fatigue, headache, sleep difficulty. Contact your doctor if any of these symptoms persist or become severe. ?? Wheezing. If this occurs, stop the medicine and contact your doctor promptly. ?? Children and teenagers may become agitated, irritable, confused, or attempt self-injury. If any of these side effects appear, have your child stop taking the medicine and notify your zuleima doctor promptly. ALLERGIC REACTION: Signs of an allergic reaction include: Rash, itching, swelling, trouble swallowing, or trouble breathing. If any of these symptoms occur, contact your doctor or return to this facility right away. [NOTE: This information topic may not include all directions, precautions, medical conditions, drug/food interactions, or warnings for this drug. Check with your doctor, nurse, or pharmacist if you have questions.] ?? [id number] [employer], [address] [place] [address]. All rights reserved. This information is not intended as a substitute for professional medical care. Always follow your healthcare professional's instructions. [id number] WORK RELEASE FORM This notice verifies that your employee Carter mensah was seen in this facility today (or on 06/02/10 if checked [ ]). He/she may return to work on 06/03/10 with the following restrictions: None: [ x ] No heavy lifting: [ ] (over pounds) No prolonged standing: [ ] Desk Work Only: [ ] Other: [ ] (described below) These restrictions apply through . After this date, your employee should be able to participate fully in work duties. BE ADVISED: If symptoms continue and the employee is unable to perform the full duties of their job by this date, please advise the employee to make an appointment with your workers comp physician. If that is not possible, the employee should see his or her own doctor or the referral doctor provided by us. Physician or Nurse NOTES: ?? [id number] [employer], [address] [place] [address]. All rights reserved. This information is not intended as a substitute for professional medical care. Always follow your healthcare professional's instructions. Discharge Prescriptions & Home Medications: Medication/Strength Dose Route Frequency Indications/Special Instructions/Comments codeine-guaifenesin (Guiatuss AC oral syrup) 10 mL Oral every 4 hours as needed for cough azithromycin (Zithromax) 250 mg Oral once a day 2 tabs on day 1 and 1 tab on days 2 through 5 then repeat on day 7 oseltamivir (Tamiflu 75 mg oral capsule) 75 mg Oral two times a day ethinyl estradiol-norgestimate (Ortho Tri-Cyclen) Oral once a day naproxen (naproxen 500 mg oral tablet) 500 mg Oral as needed Attention: If you have any medications at home that are not on this list, please contact your provider for clarification. Patient Visit Summary: CARTER MENSAH has been given the following list of patient education materials, prescriptions, Home Medications and follow-up instructions: Follow-up Instructions: With: Address: When: SHAMEKA LOPEZ Within As Needed Comments: With: Address: When: Follow up with primary care provider Within As Needed Comments: Patient Education Materials: BRONCHITIS, Abx Tx (Adult); AZITHROMYCIN; MEDICATION: TAMIFLU (OSELTAMIVIR); WORK RELEASE FORM Discharge Prescriptions & Home Medications: Medication/Strength Dose Route Frequency Indications/Special Instructions/Comments codeine-guaifenesin (Guiatuss AC oral syrup) 10 mL Oral every 4 hours as needed for cough azithromycin (Zithromax) 250 mg Oral once a day 2 tabs on day 1 and 1 tab on days 2 through 5 then repeat on day 7 oseltamivir (Tamiflu 75 mg oral capsule) 75 mg Oral two times a day ethinyl estradiol-norgestimate (Ortho Tri-Cyclen) Oral once a day naproxen (naproxen 500 mg oral tablet) 500 mg Oral as needed Attention: If you have any medications at [...] suggestions. Please follow the instructions above carefully. I, CARTER MENSAH , or responsible green party have received this information and my questions have been answered. I have discussed any challenges I see with this plan with the nurse or physician. Patient Signature or Responsible Libertarian Date/Time Provider Signature Date/Time This document has images extracted. Please consider using [employer] for all your patient education needs. Source: [facility] [employer]ide Document Id: [id number] Electronically signed by Lesley, [facility] Nonprofit Manager [id number] at 09/18/2016 11:18 AM CDT Roxanne Márquez R.N. - 06/02/2010 8:41 AM CST ED Depart Summary [facility] Emergency Department Clinical Discharge Summary PERSON INFORMATION Name CARTER MENSAH Age 30 Years 1980 12:00 AM Sex Female Language PCP SHAMEKA LOPEZ MD Marital Status Single N [id number] Visit Id Visit Reason Shortness of breath; Shortness of breath; sob Specialty Enc Type Emergency Med Service Emergency Medicine Referred by Track Group [facility] ED Discharge 06/02/2010 8:30 AM Tracking Id [id number] Checkout 06/02/2010 8:30 AM Checkin 06/02/2010 7:10 AM Acuity 5 -Non Urgent Dispo Type Discharged to Home or Self Care Arrival 06/02/2010 7:10 AM Reg Status Complete LOS 000 01:20 Address: [address] [place] [phone] Comment: PROVIDER INFORMATION Provider Role Assigned Unassigned ROXANNE MÁRQUEZ RN ED Nurse 06/02/2010 7:12 AM SHAMEKA LOPEZ MD ED Provider 06/02/2010 7:14 AM DIAGNOSIS Influenza 487.1; Bronchitis 490 Comment: PATIENT EDUCATION INFORMATION Instructions: BRONCHITIS, Abx Tx (Adult); AZITHROMYCIN; MEDICATION: TAMIFLU (OSELTAMIVIR); WORK RELEASE FORM Follow up: With: Address: When: SHAMEKA LOPEZ Within As Needed Comments: With: Address: When: Follow up with primary care provider Within As Needed Comments: Source: [facility] POWERCHART Document Id: [id number] Electronically signed by Conversion, [facility] Nonprofit Manager [id number] at 09/18/2016 11:18 AM CDT documented in this encounter Nursing Notes Roxanne Márquez RBessy - 06/02/2010 7:51 AM CST ED Primary Assessment ED Primary Assessment Entered On: 06/02/2010 7:56 B2B SALES EXECUTIVE Performed On: 06/02/2010 7:51 B2B SALES EXECUTIVE by ROXANNE MÁRQUEZ RN Reason For Visit Diagnoses(Active) Shortness of breath Date: 06/02/2010 7:40 B2B SALES EXECUTIVE ; Diagnosis Type: Reason For Visit ; Confirmation: Complaint of ; Classification: Medical ; Clinical Service: Emergency medicine ; Code: PNED ; Probability: 0 ; Diagnosis Code: [id number] Triage Mode of Arrival ED: Private vehicle Track: Medical Pain Symptoms: Yes Vital Signs Assessed: Yes ROXANNE MÁRQUEZ RN - 06/02/2010 7:51 B2B SALES EXECUTIVE Vital Signs Temperature Core: 36.3C(Converted to: 97.3DegF) (LOW) Peripheral Pulse Rate: 103/min (HI) Respiratory Rate: 22/min (HI) Systolic Blood Pressure: 121mmHg Diastolic Blood Pressure: 83mmHg NIBP Mean: 96mmHg BP Location: Right upper extremity SpO2: 98% Oxygen Therapy: Room air ROXANNE MÁRQUEZ RN - 06/02/2010 7:51 B2B SALES EXECUTIVE ED Physician Notification Time ED Physician Notification Time: 06/02/2010 7:45 B2B SALES EXECUTIVE ROXANNE MÁRQUEZ RN - 06/02/2010 7:51 B2B SALES EXECUTIVE MORALES DCP GENERIC CODE Tracking Acuity: 5 -Non Urgent Tracking Group: [facility] ED ROXANNE MÁRQUEZ RN - 06/02/2010 7:51 B2B SALES EXECUTIVE Allergy Allergies (Active) Augmentin Estimated Onset Date: Unspecified ; Created By: ROXANNE MÁRQUEZ RN; Reaction Status: Active ; Category: Drug ; Substance: Augmentin ; Type: Allergy ; Updated By: ROXANNE MÁRQUEZ RN; Reviewed Date: 06/02/2010 7:30 B2B SALES EXECUTIVE Cipro Estimated Onset Date: Unspecified ; Created By: ROXANNE MÁRQUEZ RN; Reaction Status: Active ; Category: Drug ; Substance: Cipro ; Type: Allergy ; Updated By: ROXANNE MÁRQUEZ RN; Reviewed Date: 06/02/2010 7:30 B2B SALES EXECUTIVE Respiratory Airway: Patent Respirations: Unlabored Respiratory Pattern: Regular Oxygen Therapy: Room air ROXANNE MÁRQUEZ RN - 06/02/2010 7:51 B2B SALES EXECUTIVE Cardiovascular Heart Rhythm: Regular Skin Color: Normal for ethnicity Skin Description: Dry Skin Temperature: Warm ROXANNE MÁRQUEZ RN - 06/02/2010 7:51 B2B SALES EXECUTIVE Neurological Level of Consciousness: Alert Orientation: Oriented x 3 Characteristics of Speech: Clear ROXANNE MÁRQUEZ RN - 06/02/2010 7:51 B2B SALES EXECUTIVE ED Psychosocial Affect/Behavior: Calm Domestic Concerns: None ROXANNE MÁRQUEZ RN - 06/02/2010 7:51 B2B SALES EXECUTIVE Gastrointestinal Nutrition ED: Adequate ROXANNE MÁRQUEZ RN - 06/02/2010 7:51 B2B SALES EXECUTIVE Musculoskeletal Fall Prevention Education Provided: Yes ROXANNE MÁRQUEZ RN - 06/02/2010 7:51 B2B SALES EXECUTIVE Social Habits Tobacco Use Grid Tobacco Use: Current, Advised to Quit Type: Cigarettes ROXANNE MÁRQUEZ RN - 06/02/2010 7:51 B2B SALES EXECUTIVE Source: [facility] POWERCHART Document Id: [id number] B2B SALES EXECUTIVE!48 B2B SALES EXECUTIVE documented in this encounter ED Notes Roxanne Márquez R.N. - 06/02/2010 8:34 AM CST ED Disposition Summary ED Disposition Summary Entered On: 06/02/2010 8:35 B2B SALES EXECUTIVE Performed On: 06/02/2010 8:34 B2B SALES EXECUTIVE by AFSHAN, ROXANNE A TABLE MAKER Disposition Summary Accompanied By: Alone Mode of Discharge: Ambulatory ROXANNE MÁRQUEZ RN - 06/02/2010 8:34 B2B SALES EXECUTIVE Source: [facility] [employer] Document Id: [id number] B2B SALES EXECUTIVE!4 B2B SALES EXECUTIVE Shameka Lopez M.D. - 06/02/2010 7:53 AM CST Shortness of breath Patient: CARTER MENSAH - CF MRN Age: 30 years Sex: Female : 1980 Author: SHAMEKA LOPEZ MD Basic Information Time seen: Date & time 06/02/2010 07:48:00, Immediately upon arrival. History source: Patient. Arrival mode: Private vehicle, walking. History limitation: None. Additional information:: Chief Complaint from Nursing Triage Note : Chief Complaint Description. 06/02/2010 7:40 B2B SALES EXECUTIVE Chief Complaint Description Pt arrives ambulatory with complaints of cough and fever for past week. Also complaintsof shortness of breath with ambulation. Complaints of chest tightness. History of Present Illness The patient presents with difficulty breathing and cough. The onset was 5 days ago and gradual. The course/duration of symptoms is worsening. Degree at onset moderate. Degree at present moderate. The Exacerbating factors is smoke exposure. The Relieving factors is none. Risk factors consist of smoking. Prior episodes: pneumonia. Therapy today: none. Associated symptoms: fever, cough and vomiting. Additional history: none. Review of Systems Constitutional symptoms: Fever, chills, sweats, fatigue, decreased activity, no weakness. Skin symptoms: no jaundice no rash, no pruritus. Eye symptoms: no recent vision problems ENMT symptoms: no ear pain no sore throat. Respiratory symptoms: Shortness of breath, cough, Sputum production Green no hemoptysis, no stridor. Cardiovascular symptoms: no chest pain no palpitations, no tachycardia, no diaphoresis. Gastrointestinal symptoms: Vomiting no abdominal pain, no nausea, no diarrhea. Genitourinary symptoms: no dysuria Neurologic symptoms: no altered level of consciousness no tingling. Endocrine symptoms: no polyuria no polyphagia. Hematologic/Lymphatic symptoms: bleeding tendency negative no swollen nodes. Allergy/immunologic symptoms: no impaired immunity Additional review of systems information:All other systems reviewed and otherwise negative. Health Status Allergies: . Allergic Reactions (all) Cipro, Augmentin Medications: . Prescriptions and Home Medications APAP/dichloralphenazone/isometheptene (Midrin), PO, PRN naproxen (naproxen 500 mg oral tablet), 500 mg, 1 tab(s), PO, PRN citalopram (Celexa 20 mg oral tablet), PO, Daily ethinyl estradiol-norgestimate (Ortho Tri-Cyclen), PO, Daily Past Medical/ Family/ Social History Medical history: Medical history. No active or resolved past medical history items have been selected or recorded. Surgical history: Surgical history. No active procedure history items have been selected or recorded. Family history: Family history. No family history items have been selected or recorded. Social history: Alcohol use: Denies, Tobacco use: Regularly, Drug use: Denies, Occupation: Employed. Physical Examination Vital signs: Vital Signs, 06/02/2010 7:40 B2B SALES EXECUTIVE Temperature Core 36.3 C LOW Peripheral Pulse Rate 103 /min HI Respiratory Rate 22 /min HI SpO2 98 % Systolic Blood Pressure 121 mmHg Diastolic Blood Pressure 83 mmHg Mean Arterial Pressure 96 mmHg BP Location Left upper Oxygen saturation Oxygen Therapy & Oxygenation Information. 06/02/2010 7:40 B2B SALES EXECUTIVE Oxygen Therapy Room air General: Alert. moderate distress. Skin: Warm. no pallor. Head: Normocephalic Neck: Supple Eye: Pupils are equal, round and reactive to light. extraocular movements are intact. Ears, nose, mouth and throat: Tympanic membranes clear. No pharyngeal erythema or exudate. Cardiovascular: Regular rate and rhythm. No murmur. Normal peripheral perfusion. No edema. S1. S2. Respiratory: Breath sounds are equal. Symmetrical chest wall expansion. Breath sounds: bilateral andrhonchi present. Retractions: none. Chest wall: No tenderness. No deformity. Back: Nontender Musculoskeletal: Normal ROM. normal strength. no tenderness. no swelling. no deformity. Gastrointestinal: Soft. Nontender. Non distended. Normal bowel sounds. No organomegaly. Obese. Neurological: Alert and oriented to person, place, time, and situation. normal sensory observed. Lymphatics: No lymphadenopathy Psychiatric: Cooperative Medical Decision Making Differential Diagnosis:Bronchitis. Rationaleprobable influenza overlying. Documents reviewed:Emergency department nurses' notes. Impression and Plan Diagnosis Bronchitis 490 (Discharge, Emergency medicine, Medical) Influenza 487.1 (Discharge, Emergency medicine, Medical) Discharge plan Condition: Stable. Dispositioned: To home. 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 Pharmacy: Guiatuss AC oral syrup (Ordered): 10 mL, PO, q4hr, 600 mL, PRN Robitussin-AC (Delete Processing): 180 mL, PO, 4xDay Patient was given the following educational materials: BRONCHITIS, Abx Tx (Adult), AZITHROMYCIN, MEDICATION: TAMIFLU (OSELTAMIVIR), WORK RELEASE FORM. Follow up with: SHAMEKA LOPEZ Within As Needed; Follow up with primary care provider Within As Needed. Counseled: Patient, Regarding diagnosis, Regarding treatment plan, Regarding prescription, Patient indicated understanding of instructions. Source: [facility] POWERCHART Document Id: [id number]} B2B SALES EXECUTIVE Roxanne Márquez RBessy - 06/02/2010 7:40 AM CST ED Triage Assessment ED Triage Assessment Entered On: 06/02/2010 7:51 B2B SALES EXECUTIVE Performed On: 06/02/2010 7:40 B2B SALES EXECUTIVE by ROXANNE MÁRQUEZ RN Reason For Visit Diagnoses(Active) Shortness of breath Date: 06/02/2010 7:40 B2B SALES EXECUTIVE ; Diagnosis Type: Reason For Visit ; Confirmation: Complaint of ; Classification: Medical ; Clinical Service: Emergency medicine ; Code: PNED ; Probability: 0 ; Diagnosis Code: [id number] Triage Chief Complaint Description: Pt arrives ambulatory with complaints of cough and fever for past week.Also complaintsof shortness of breath with ambulation. Complaints of chest tightness. Information Given By: Patient Accompanied By: Alone Mode of Arrival ED: Private vehicle Track: Medical Pain Symptoms: Yes Vital Signs Assessed: Yes ROXANNE MÁRQUEZ RN - 06/02/2010 7:40 B2B SALES EXECUTIVE Pain Pain Assessment Grid Pain 1 Location: Chest Laterality: Bilateral Intensity: 2 ROXANNE MÁRQUEZ RN - 06/02/2010 7:40 B2B SALES EXECUTIVE Vital Signs Temperature Core: 36.3C(Converted to: 97.3DegF) (LOW) Peripheral Pulse Rate: 103/min (HI) Respiratory Rate: 22/min (HI) Systolic Blood Pressure: 121mmHg Diastolic Blood Pressure: 83mmHg NIBP Mean: 96mmHg BP Location: Left upper extremity SpO2: 98% Oxygen Therapy: Room air ROXANNE MÁRQUEZ RN - 06/02/2010 7:40 B2B SALES EXECUTIVE ED Physician Notification Time ED Physician Notification Time: 06/02/2010 7:45 B2B SALES EXECUTIVE ROXANNE MÁRQUEZ RN - 06/02/2010 7:40 B2B SALES EXECUTIVE MORALES MORALES Level 1: No MORALES Level 2: No MORALES Level 3: None ROXANNE MÁRQUEZ RN - 06/02/2010 7:40 B2B SALES EXECUTIVE DCP GENERIC CODE Tracking Acuity: 5 -Non Urgent Tracking Group: [facility] ED ROXANNE MÁRQUEZ RN - 06/02/2010 7:40 B2B SALES EXECUTIVE Allergy Latex Screening: No ROXANNE MÁRQUEZ RN - 06/02/2010 7:40 B2B SALES EXECUTIVE Allergies (Active) Augmentin Estimated Onset Date: Unspecified ; Created By: ROXANNE MÁRQUEZ RN; Reaction Status: Active ; Category: Drug ; Substance: Augmentin ; Type: Allergy ; Updated By: ROXANNE MÁRQUEZ RN; Reviewed Date: 06/02/2010 7:30 B2B SALES EXECUTIVE Cipro Estimated Onset Date: Unspecified ; Created By: ROXANNE MÁRQUEZ RN; Reaction Status: Active ; Category: Drug ; Substance: Cipro ; Type: Allergy ; Updated By: ROXANNE MÁRQUEZ RN; Reviewed Date: 06/02/2010 7:30 B2B SALES EXECUTIVE Immunizations Last Tetanus: < 5 years Pneumovac: None Influenza: This year ROXANNE MÁRQUEZ RN - 06/02/2010 7:40 B2B SALES EXECUTIVE [facility] Document Id: [id number] B2B SALES EXECUTIVE!40 B2B SALES EXECUTIVE documented in this encounter Miscellaneous Notes Miscellaneous - Roxanne Márquez R.N. - 06/02/2010 8:35 AM CST Valuables/Belongings Valuables/Belongings Entered On: 06/02/2010 8:35 B2B SALES EXECUTIVE Performed On: 06/02/2010 8:35 B2B SALES EXECUTIVE by ROXANNE MÁRQUEZ RN Valuables/Belongings Belongings Sent Home With: patient ROXANNE MÁRQUEZ RN - 06/02/2010 8:35 B2B SALES EXECUTIVE Source: [employer] Document Id: [id number] B2B SALES EXECUTIVE!3 B2B SALES EXECUTIVE Miscellaneous - Roxanne Márquez R.N. - 06/02/2010 7:10 AM CST Facility Charge Ticket Facility Charge Ticket Entered On: 06/02/2010 8:41 B2B SALES EXECUTIVE Performed On: 06/02/2010 7:10 B2B SALES EXECUTIVE by ROXANNE MÁRQUEZ RN Facility Charge TVL Level for Facility Charge Ticket: Level 5 Mode of Arrival ED: Private vehicle Lynx Mode of Arrival Interpreted: Standard Lynx Process Management: None Lynx Order Management: None 30 Minutes Critical Care: No Lynx Nursing Assessment: Triage and 1-2 nursing assessments Lynx Disposition: Discharge Lynx Total Points with Diagnosis Control: 11 Lynx Visit Level: 53769 Level 4 ROXANNE MÁRQUEZ RN - 06/02/2010 8:39 B2B SALES EXECUTIVE Source: [employer] Document Id: [id number] B2B SALES EXECUTIVE!12 B2B SALES EXECUTIVE documented in this encounter Plan of Treatment Not on filedocumented as of this encounter Visit Diagnoses Not on filedocumented in this encounter
--- OUTSIDE RECORDS SUMMARY | 2022-03-16 15:10 | XMS_ITS | Encounter Summary ---
:1980 Author Organization [facility] Address [address] [place] [address] Care Team Providers Name Role Phone Unavailable Primary Care Provider Unavailable Encounter Details Date Type Department Care Team Description 09/14/2010 Hospital Encounter HX [facility] ME Andrew Vera, LO, C.N.P., D. N.P. [address] [place] [address] (Wo rk) Social History Tobacco [...] More than 4 times per year 11/09/2020 [employer]? Do you belong to any clubs [...] of this encounter Progress Notes Andrew Vera D.N.Samy., C.N.P. - 09/23/2010 7:15 PM CDT prescriptions Pt. called stated she wanted to start the nicotine patch as she found out she is . Currently pt. is smoking 5-7 cig's per day. Prescribed nicotine transdermal patch 7 mg chana 24 hours (advisedto remove prior to going to sleep) #30 with no refills. discussed side effects with pt. Pt. stated understanding. Electronically Signed By: ANDREW VERA DNP, FNP On: 09/27/2010 08:17 am [facility] P[facility] Document Id: [id number] Andrew Vera D.N.P., C.N.P. - 09/14/2010 12:00 AM CDT [id number] CHIEF COMPLAINT/REASON FOR VISIT Positive test. HISTORY OF PRESENT ILLNESS The patient is a 22-year-old female who presents to the clinic today as she states that she did have a positive test at home and per her insurance before she can follow up with REGISTER REPAIRER she needs a confirmed clinic test for her medical assistance. She reports she has been having some breast tenderness and some nausea in which she is presently taking Zofran intermittently for. She otherwise reports that she is taking multivitamin and on occasion Claritin 10 mg tablet by mouth daily as needed for her allergies. She otherwise denies having any other further concerns or complaints at this time. PAST MEDICAL, SURGICAL, FAMILY HISTORY Reviewed. Please see chart. CURRENT MEDICATIONS Reviewed. Please see chart. ALLERGIES Reviewed. Please see chart. PHYSICAL EXAMINATION The patient is alert, well-nourished 30-year-old female who appears to be in no acute distress. Head is normocephalic, atraumatic. Remainder of further physical examination deferred at this time. LABS: Urine beta HCG was positive. IMPRESSION: Positive test. PLAN: Discussed the findings at length with the patient. I discussed the medication she can take for trit-ido-flgrjhk that are considered safe in as this was discussed at length with the patient. I indicated that I would like her to plan on following up with REGISTER REPAIRER at 12 weeks gestation. This was discussed at length with patient. The patient stated they understand this plan. She denied having any further concerns or issues. The patient ambulated out of clinic in no acute distress. #1 Patient Education Ready to learn No apparent learning barriers were identified Learning preferences include listening Explained diagnosis and treatment plan Patient expressed understanding of the content Andrew Vera D.N.P., F.N.P. /yumiko Electronically Signed By: ANDREW VERA DNP, FNP On: 09/14/2010 03:18 PM Source: [facility] MHSDOLBEYNONRADSYS Document Id: [id number] documented in this encounter Miscellaneous Notes Miscellaneous - Andrew Vera D.N.P., C.N.P. - 09/14/2010 3:18 PM CDT Results Notification Document Contains Addenda Addendum by JARAD NG LPN on 15 September 2010 12:15:10 CDT pt aware From: ANDREW VERA DNP, FNP To: JARAD NG LPN Sent: 09/14/2010 15:18:55 CDT ! Show up: 09/14/2010 15:18:00 CDT Subject: Results Notification Actions: Notify patient of results Due Date/Time: 09/14/2010 15:18:00 CDT Source: [facility] POWERCHART Document Id: [id number] Miscellaneous - Andrew Vera, D.N.P., C.N.P. - 09/14/2010 2:41 PM CDT Ambulatory Patient Summary [id number] [place] [address] Visit Information Name: CARTER MENSAH Current Date: 09/14/2010 14:41:18 Primary Care Provider: ANDREW VERA [facility], CIPHER EXPERT Your Medications Here is a list of your medications. It is important to take your medications as directed. Use a pillbox or chart to help remind you to take your medications. Please let your doctor or nurse know if you have problems taking your medications. Medication/Strength Dose Route Frequency Indications/Special Instructions/Comments ondansetron (Zofran 4 mg oral tablet) 4 [...] Lipid Panel every 5 years Age 20-75 09/14/2010 Checks blood for good (HDL) and bad (LDL) cholesterol. Know your numbers, they are one indicator of your risk for heart attack and stroke. Vaccine: Tetanus every 10 years 06/13/2003 06/10/2013 Immunization to help prevent you from getting the serious disease Tetanus (Lockjaw). Your Upcoming Appointments Date Time Location Reason Provider No Appointments found Your Goals/Additional instructions: Source: [facility] Document Id: [id number] Miscellaneous - Andrew Vera D.N.P., C.N.P. - 09/14/2010 2:41 PM CDT Ambulatory Depart Summary [address] [address] Visit Information Name: CARTER MENSAH Current Date: 09/14/2010 14:41:18 Primary Care Provider: ANDREW VERA DNP, CIPHER EXPERT CARTER MENSAH has been given the following list of medications: Your Medications It is important to take your medications as directed. Use a pill box or chart to help remind you to take your medications. Please let your doctor or nurse know if you have problems taking your medications. Medication/Strength Dose Route Frequency Indications/Special Instructions/Comments ondansetron (Zofran 4 mg oral tablet) 4 mg Oral every 8 hours loratadine (Claritin 10 mg oral tablet) 10 mg Oral once a day as needed for Allergy symptoms Additional Information: Yes - Current list of reconciled medications is provided and explained to the patient and/or family, guardian/caregiver. [facility] Document Id: [id number] Miscellaneous - Conversion, Historical Provider Ser - 09/14/2010 10:16 AM CDT Adult Production Editor Intake/History Adult Production Editor Intake/History Entered On: 09/14/2010 10:19 CDT Performed On: 09/14/2010 10:16 CDT by BERENICE, JARAD D GREEN MARKETER Intake Chief Complaint: positive test Temperature Core: 37.8C(Converted to: 100.0DegF) Peripheral Pulse Rate: 92/min Respiratory Rate: 16/min Systolic Blood Pressure: 98mmHg Diastolic Blood Pressure: 58mmHg NIBP Mean: 71mmHg Actual Weight: 86.800kg(Converted to: 191lb 6oz) Dosing Weight Clinic: 86.80kg JARAD NG [facility] - 09/14/2010 10:16 CDT Subjective Pain Symptoms: No JARAD NG GREEN MARKETER - 09/14/2010 10:16 CDT Dependent Habits Tobacco Use/Currently Using: Yes Exposure to Tobacco Smoke: Patient smokes JARAD NG GREEN MARKETER - 09/14/2010 10:16 CDT Tobacco Use Grid Type: Cigarettes Cigarette Use Packs/Day: 1.0 JARAD NG LPN - 09/14/2010 10:16 CDT Caffeine Use Grid Caffeine Use: Current Type: Soft drinks Frequency: Daily JARAD NG GREEN MARKETER - 09/14/2010 10:16 CDT Allergy Allergies (Active) Augmentin Estimated Onset Date: Unspecified ; Created By: YASMANY CAVANAUGH RN; Reaction Status: Active ; Category: Drug ; Substance: Augmentin ; Type: Allergy ; Updated By: YASMANY CAVANAUGH RN; Reviewed Date: 09/14/2010 10:15 CDT Cipro Estimated Onset Date: Unspecified ; Created By: YASMANY CAVANAUGH RN; Reaction Status: Active ; Category: Drug ; Substance: Cipro ; Type: Allergy ; Updated By: YASMANY CAVANAUGH RN; Reviewed Date: 09/14/2010 10:15 CDT Silicone Estimated Onset Date: Unspecified ; Created By: JENNIFER FRANCIS RN; Reaction Status: Active ; Category: Drug ; Substance: Silicone ; Type: Sensitivity ; Updated By: JENNIFER FRANCIS RN; Reviewed Date: 09/14/2010 10:15 CDT [facility] POWER[facility] Document Id: [id number] CDT!25 documented in this encounter Plan of Treatment Not on filedocumented as of this encounter Visit Diagnoses Not on filedocumented in this encounter
--- OUTSIDE RECORDS SUMMARY | 2022-03-16 15:10 | XMS_ITS | Encounter Summary ---
:1980 Author Organization [facility] Address [address] [place] [address] Care Team Providers Name Role Phone Unavailable Primary Care Provider Unavailable Encounter Details Date Type Department Care Team Description 03/22/2011 Hospital Encounter HX [facility] ME Andrew Vera, LO, C.N.P., D. N.P. [address] [place] [address] (Wo rk) Social History Tobacco [...] Progress Notes Andrew Vera D.N.P., C.N.P. - 03/22/2011 12:00 AM CST [id number] CHIEF COMPLAINT/REASON FOR VISIT Breast discomfort. HISTORY OF PRESENT ILLNESS The patient is a 30-year-old female that presents to the clinic today with a chief complaint of having some discomfort under the left breast area. She reports that she was doing some exertional activity including hanging Arely decorations which may have exacerbated the symptoms. She reports that she came in today for further evaluation. She otherwise reports that she has not had any shortness of breath or difficulty breathing and more so reports that the left breast tissue itself is quite sore. PAST MEDICAL/SURGICAL HISTORY Reviewed. Please see chart. FAMILY HISTORY Reviewed. Please see chart. CURRENT MEDICATIONS Reviewed. Please see chart. ALLERGIES Reviewed. Please see chart. PHYSICAL EXAMINATION GENERAL: The patient is an alert, mildly obese 30-year-old female that appears to be in no acute distress. HEAD: Normocephalic. Atraumatic. BREASTS: Upon examination, the patient was noted to have significantly notable fibrocystic breast tissue in which under the left breast area I was able to palpate dome denser tissue in which she complained of some discomfort. A thorough breast examination was then completed in which the patient then complained of discomfort throughout both breasts. IMPRESSION/REPORT/PLAN Fibrocystic breast tissue noted on examination. PLAN: Discussed the findings at length with the patient. Iterated to the patient if she has been increasing her caffeine intake this may exacerbate her symptoms as also she was given information regarding fibrocystic breast disease from the [facility] site as well. I recommended that she wear a more fitting and supportive bra and indicated that if the symptoms worsen or continue despite decreased intake of caffeine follow-up would be warranted. Patient stated she understands this plan as she felt comfortable with this. Patient ambulated out of the clinic in no acute distress. PATIENT EDUCATION: Ready to learn No apparent learning barriers were identified Learning preferences include listening Explained diagnosis and treatment plan Patient/Child/Caregiver expressed understanding of the content Andrew Vera D.N.P., F.N.P. /andre Electronically Signed By: ANDREW VERA DNP, FNP On: 03/31/2011 07:50 PM Source: [facility] MHSDOLBEYNONRADSYS Document Id: [id number] ISH SPEAKING BABYSITTER documented in this encounter Miscellaneous Notes Miscellaneous - Andrew Vera D.N.P., C.N.P. - 03/22/2011 7:58 PM SPANISH SPEAKING BABYSITTER Ambulatory Patient Summary [address] [address] Visit Information Name: CARTER MENSAH Current Date: 03/22/2011 19:58:45 Primary Care Provider: ANDREW VERA DNP, FNP Your Medications Here is a list of your medications. It is important to take your medications as directed. Use a pillbox or chart to help remind you to take your medications. Please let your doctor or nurse know if you have problems taking your medications. Medication/Strength Dose Route Frequency Indications/Special Instructions/Comments norethindrone (Micronor 0.35 mg oral tablet) 1 tab(s) Oral once a day erythromycin topical (erythromycin topical 2% gel) 1 [...] Additional Information Health Assessment every 1 year 03/22/2011 Screening Pap Smear every 3 years Women 21-65 06/17/2010 06/16/2013 Checks for signs of cancer of the cervix. Lipid Panel every 5 years Age 20-75 03/22/2011 Checks blood for good (HDL) and bad (LDL) cholesterol. Know your numbers, they are one indicator of your risk for heart attack and stroke. Vaccine: Tetanus every 10 years 06/13/2003 06/10/2013 Immunization to help prevent you from getting the serious disease Tetanus (Lockjaw). Your Upcoming Appointments Date Time Location Reason Provider No Appointments found Your Goals/Additional instructions: Source: [facility] POWERCHART Document Id: [id number] ISH SPEAKING BABYSITTER Miscellaneous - Andrew Vera, Tristin.N.P., C.N.P. - 03/22/2011 7:58 PM SPANISH SPEAKING BABYSITTER Ambulatory Depart Summary [address] [address] Visit Information Name: CARTER MENSAH Current Date: 03/22/2011 19:58:44 Primary Care Provider: ANDREW VERA DNP, ALLIGATOR SHEAR OPERATOR ASAF MENSAHDERRICK BUSH has been given the following list of medications: Your Medications It is important to take your medications as directed. Use a pill box or chart to help remind you to take your medications. Please let your doctor or nurse know if you have problems taking your medications. Medication/Strength Dose Route Frequency Indications/Special Instructions/Comments norethindrone (Micronor 0.35 mg oral tablet) 1 tab(s) Oral once a day erythromycin topical (erythromycin topical 2% gel) 1 sonya Topical two times a day as needed for acne Additional Information: Yes - Current list of reconciled medications is provided and explained to the patient and/or family, guardian/caregiver. Source: [facility] POWERCHART Document Id: [id number] ISH SPEAKING BABYSITTER Miscellaneous - William Mishra L.P.N. - 03/22/2011 5:51 PM CST Adult Program Management Professional Intake/History Adult Program Management Professional Intake/History Entered On: 03/22/2011 17:54 SPANISH SPEAKING BABYSITTER Performed On: 03/22/2011 17:51 SPANISH SPEAKING BABYSITTER by WILLIAM MISHRA LPN Intake Chief Complaint : Under left breast, feels lump maybe and sore since Monday Temperature Core : 36.6C(Converted to: 97.9DegF) Peripheral Pulse Rate : 80/min Respiratory Rate : 16/min Systolic Blood Pressure : 110mmHg Diastolic Blood Pressure : 72mmHg NIBP Mean : 85mmHg BP Location : Left upper extremity Heart Rhythm : Regular Actual Weight : 85.7kg(Converted to: 188lb 15oz) Weight Source : Standing scale Dosing Weight Clinic : 85.70kg WILLIAM MISHRA LPN - 03/22/2011 17:51 SPANISH SPEAKING BABYSITTER Subjective Pain Symptoms : No WILLIAM MISHRA LPN - 03/22/2011 17:51 SPANISH SPEAKING BABYSITTER Dependent Habits Tobacco Use/Currently Using : Yes Tobacco Use/Advised to Quit : Yes Exposure to Tobacco Smoke : Patient smokes Smoking Status : Smoker WILLIAM MISHRA LPN - 03/22/2011 17:51 SPANISH SPEAKING BABYSITTER Tobacco Use Grid Type : Cigarettes Cigarette Use Packs/Day : 1.0 WILLIAM MISHRA LPN - 03/22/2011 17:51 SPANISH SPEAKING BABYSITTER Alcohol Use : No WILLIAM MISHRA LPN - 03/22/2011 17:51 SPANISH SPEAKING BABYSITTER Caffeine Use Grid Caffeine Use : Current Type : Soft drinks Frequency : Daily WILLIAM MISHRA LPN - 03/22/2011 17:51 SPANISH SPEAKING BABYSITTER Recreational Drug Use Grid Drug Use : None WILLIAM MISHRA LPN - 03/22/2011 17:51 SPANISH SPEAKING BABYSITTER Allergy Allergies (Active) Cipro Estimated Onset Date: Unspecified ; Created By: YASMANY CAVANAUGH RN; Reaction Status: Active ; Category: Drug ; Substance: Cipro ; Type: Allergy ; Updated By: YASMANY CAVANAUGH RN; Reviewed Date: 03/22/2011 17:50 SPANISH SPEAKING BABYSITTER Silicone Estimated Onset Date: Unspecified ; Created By: JENNIFER FRANCIS RN; Reaction Status: Active ; Category: Drug ; Substance: Silicone ; Type: Sensitivity ; Updated By: JENNIFER FRANCIS RN; Reviewed Date: 03/22/2011 17:50 SPANISH SPEAKING BABYSITTER Source: [facility] [employer] Document Id: [id number] SPANISH SPEAKING BABYSITTER!34 ISH SPEAKING BABYSITTER documented in this encounter Plan of Treatment Not on filedocumented as of this encounter Visit Diagnoses Not on filedocumented in this encounter
--- OUTSIDE RECORDS SUMMARY | 2022-03-16 15:10 | XMS_ITS | Encounter Summary ---
:1980 Author Organization [facility] Address [address] [place] [address] Care Team Providers Name Role Phone Unavailable Primary Care Provider Unavailable Encounter Details Date Type Department Care Team Description 08/16/2010 Hospital Encounter HX [facility] Zina Vera, LO, C.N.P., D. N.P. [address] [place] [address] (Wo rk) Social History Tobacco [...] Progress Notes Zina Vera D.N.P., C.N.P. - 08/16/2010 12:00 AM CDT [id number] CHIEF COMPLAINT/REASON FOR VISIT Congestion. HISTORY OF PRESENT ILLNESS Patient is 30-year-old female who presents to the clinic today with chief complaint of nasal congestion and cough present now for the past three days duration. She reports she has not had any fevers, chills, nausea, vomiting shortness of breath, or difficulty breathing. She reports that her daughter had similar symptoms. She states she is taking Claritin mrlz-mfk-ffmsfgw as directed on package p.r.n. to help with the symptoms in no symptom improvement but reports that she thinks that this may have come from her daughter. PAST MEDICAL HISTORY/SURGICAL HISTORY SOCIAL HISTORY FAMILY HISTORY Past medical, surgical, family history viewed please see chart. CURRENT MEDICATIONS ALLERGIES Reviewed. Please see chart. PHYSICAL EXAMINATION GENERAL: alert and oriented x 3. HEENT: head normocephalic, atraumatic. PERRLA. Oropharynx is pink and moist. Bilateral TMs are clear. Bony landmarks are noted and within normal limits. Nares are patent with erythema or drainage noted. Nares are enlarged with the right naris being more enlarged than the left. Clear nasal secretions are noted bilaterally. NECK: no anterior or posterior lymphadenopathy is noted. LUNGS: clear to auscultation, no prolonged expiratory phases. No wheezes, rales, or rhonchi are noted. HEART: heart sounds are regular, S1 and S2. No murmurs, rubs, or gallops. SKIN: without any unusual rashes or suspicious lesions. IMPRESSION/REPORT/PLAN URI. PLAN: Discussed the findings at length with the patient. The patient was given benzoate 100 mg capsules to take 1-2 capsules by mouth up to three times as needed for cough #60 with no refills authorized. The patient is also given guaifenesin with codeine to take 5-10 mL by mouth every four to six hours at night as need for the cough 240 mL with no refills authorized. Recommend humidified air and encouraging fluid intake. I also recommended Mucinex D pixg-olf-micgydl as directed on package in addition to Zicam nasal spray. Advised if the symptoms worsen or continue follow-up would be warranted. I discussed the pathophysiology and etiology of bacterial rhinosinusitis at length with the patient. Patient understands this plan and she denied any further questions. Patient ambulated out of the clinic in no acute distress. Patient Education #1 Patient ready to learn. No apparent learning barriers were identified. Learning preferences included listening. Explained diagnosis and treatment plan. Patient expressed understanding of the content. Zina Vera D.N.P., F.N.P. / Electronically Signed By: ZINA VERA DNP, FNP On: 08/16/2010 07:51 Source: [facility] Document Id: [id number] documented in this encounter Miscellaneous Notes Miscellaneous - Zina Vera D.N.P., C.N.P. - 08/16/2010 12:25 PM CDT Ambulatory Patient Summary [facility] - [address] [address] Visit Information Name: DULCE MENSAH Current Date: 08/16/2010 12:25:38 Primary Care Provider: SHAMEKA MURGUIA MD Your Medications Here is a list of your medications. It is important to take your medications as directed. Use a pillbox or chart to help remind you to take your medications. Please let your doctor or nurse know if you have problems taking your medications. Medication/Strength Dose Route Frequency Indications/Special Instructions/Comments benzonatate (benzonatate 100 mg oral capsule) 1-2 cap(s) Oral three times a day codeine-guaifenesin (codeine-guaifenesin 10 mg-100 mg/5 ml oral syrup) 5-10 mL Oral every 4 hours asneeded for cough butalbital/ASA/caffeine (Fiorinal oral capsule) 2 cap(s) Oral every 6 hours as needed for pain loratadine (Claritin 10 mg oral tablet) 10 mg Oral once a day as needed for Allergy symptoms ethinyl estradiol-norgestimate (Ortho Tri-Cyclen) Oral once a day Your Allergies & Intolerances Substance Reaction Symptoms Category Comments Cipro Drug Augmentin Drug Your Problem List Problem Status Onset [...] Lipid Panel every 5 years Age 20-75 08/16/2010 Checks blood for good (HDL) and bad (LDL) cholesterol. Know your numbers, they are one indicator of your risk for heart attack and stroke. Vaccine: Tetanus every 10 years 06/13/2003 06/10/2013 Immunization to help prevent you from getting the serious disease Tetanus (Lockjaw). Your Upcoming Appointments Date Time Location Reason Provider No Appointments found Your Goals/Additional instructions: Source: [facility] POWERCHART Document Id: [id number] Electronically signed by Conversion, [facility] Printed Circuit Photographer [id number] at 09/18/2016 6:01 PM CDT Miscellaneous - Zina Vera D.N.P., C.N.P. - 08/16/2010 12:25 PM CDT Ambulatory Depart Summary [facility] - [address] [id number] Visit Information Name: DULCE MENSAH Current Date: 08/16/2010 12:25:37 Primary Care Provider: SHAMEKA MURGUIA MD, GINA MARIE has been given the following list of medications: Your Medications It is important to take your medications as directed. Use a pill box or chart to help remind you to take your medications. Please let your doctor or nurse know if you have problems taking your medications. Medication/Strength Dose Route Frequency Indications/Special Instructions/Comments benzonatate (benzonatate 100 mg oral capsule) 1-2 cap(s) Oral three times a day codeine-guaifenesin (codeine-guaifenesin 10 mg-100 mg/5 ml oral syrup) 5-10 mL Oral every 4 hours asneeded for cough butalbital/ASA/caffeine (Fiorinal oral capsule) 2 cap(s) Oral every 6 hours as needed for pain loratadine (Claritin 10 mg oral tablet) 10 mg Oral once a day as needed for Allergy symptoms ethinyl estradiol-norgestimate (Ortho Tri-Cyclen) Oral once a day Additional Information: Yes - Current list of reconciled medications is provided and explained to the patient and/or family, guardian/caregiver. Source: [facility] POWERCHART Document Id: [id number] Electronically signed by Lesley, [facility] Printed Circuit Photographer [id number] at 09/18/2016 6:01 PM CDT Miscellaneous - Jennifer Mishra, L.P.N. - 08/16/2010 11:39 AM CDT Adult Bods Developer Intake/History Adult Bods Developer Intake/History Entered On: 08/16/2010 11:41 CDT Performed On: 08/16/2010 11:39 CDT by JENNIFER MISHRA CONTAINER WASHER Intake Chief Complaint: Head congestion, cough, green snot, j[place]ston Temperature Core: 36.4C(Converted to: 97.5DegF) (LOW) Peripheral Pulse Rate: 110/min (HI) Respiratory Rate: 20/min Systolic Blood Pressure: 100mmHg Diastolic Blood Pressure: 60mmHg NIBP Mean: 73mmHg BP Location: Left upper extremity SpO2: 98% Heart Rhythm: Regular Oxygen Therapy: Room air Actual Weight: 89.200kg(Converted to: 196lb 10oz) Weight Source: Standing scale Dosing Weight Clinic: 89.20kg JENNIFER MISHRA LPN - 08/16/2010 11:39 CDT Subjective Pain Symptoms: No JENNIFER MISHRA LPN - 08/16/2010 11:39 CDT Dependent Habits Tobacco Use/Currently Using: Yes Tobacco Use/Advised to Quit: Yes JENNIFER MISHRA LPN - 08/16/2010 11:39 CDT Tobacco Use Grid Type: Cigarettes Cigarette Use Packs/Day: 1.0 JENNIFER MISHRA CONTAINER WASHER - 08/16/2010 11:39 CDT Alcohol Use: No JENNIFER MISHRA LPN - 08/16/2010 11:39 CDT Caffeine Use Grid Caffeine Use: Current Type: Soft drinks Frequency: Daily JENNIFER MISHRA LPN - 08/16/2010 11:39 CDT Allergy Allergies (Active) Augmentin Estimated Onset [...] CAVANAUGH RN; Reviewed Date: 07/21/2010 9:55 CDT [facility] Document Id: [id number] CDT!31 documented in this encounter Plan of Treatment Not on filedocumented as of this encounter Visit Diagnoses Not on filedocumented in this encounter
--- OUTSIDE RECORDS SUMMARY | 2022-03-16 15:10 | XMS_ITS | Encounter Summary ---
:1980 Author Organization [facility] Address [address] [place] [address] Care Team Providers Name Role Phone Unavailable Primary Care Provider Unavailable Encounter Details Date Type Department Care Team Description 04/22/2010 Hospital Encounter HX [facility] INPT/OBSRV Isacc Lei PLeeroy., P.A. [address] [place] [address] (Wo rk) Social History Tobacco [...]
--- OUTSIDE RECORDS SUMMARY | 2022-03-16 15:10 | XMS_ITS | Encounter Summary ---
:1980 Author Organization [facility] Address [address] [place] [address] Care Team Providers Name Role Phone Unavailable Primary Care Provider Unavailable Encounter Details Date Type Department Care Team Description 04/05/2011 Hospital Encounter HX [facility] Danica Peres, C. N.P., N.P. [address], [place] [address] (Wo rk) Social History Tobacco Use Types [...] documented as of this encounter Progress Notes Danica Peres C.N.P. - 04/05/2011 10:30 AM CST [id number] Body mass index is 34.75 kg/(m Review of health history, physical examination, dipstick urinalysis and Titmus testing performed this date per DOT protocol. VS, PMH, ROS, allergies and medications are reviewed. Qualified while wearing corrective lenses. Certificate expires 04/05/2013. See copy of DOT report in file. Currently smokes. Recently found out she is and is in the midst of quitting. Danica Peres CNP Source: [facility] RWHXTRANSXRTFSYS Document Id: [id number] Electronically signed by Conversion, [facility] Telecommunications Analyst [id number] at 09/18/2016 1:13 AM CDT documented in this encounter Plan of Treatment Not on filedocumented as of this encounter Visit Diagnoses Not on filedocumented in this encounter
--- OUTSIDE RECORDS SUMMARY | 2022-03-16 15:10 | XMS_ITS | Encounter Summary ---
:1980 Author Organization [facility] Address [address] [place] [address] Care Team Providers Name Role Phone Unavailable Primary Care Provider Unavailable Encounter Details Date Type Department Care Team Description 05/10/2010 Hospital Encounter HX [facility] INPT/OBSRV Irlanda Lopez M.D. [address] [place] [phone] (Wo rk) Social History Tobacco Use [...]
--- OUTSIDE RECORDS SUMMARY | 2022-03-16 15:10 | XMS_ITS | Encounter Summary ---
:1980 Author Organization [facility] Address [address] [place] [address] Care Team Providers Name Role Phone Unavailable Primary Care Provider Unavailable Encounter Details Date Type Department Care Team Description 07/21/2010 Hospital Encounter HX [facility] Janay Wayne, DIRECTOR OF CASEWORK, C.N.P., D. N.P. [address] [place] [address] (Wo rk) Social History Tobacco [...] Progress Notes Janay Wayne, LO, C.N.P. - 07/21/2010 12:00 AM CDT [id number] CHIEF COMPLAINT/REASON FOR VISIT 1. Sinus symptoms. 2. Migraine headaches. HISTORY OF PRESENT ILLNESS 1. Sinus symptoms. Dulce is a 30-year-old who has a chronic history of recurrent sinus infections who comes in today with a week and a half history of significant facial pressure and sinus symptoms. She states that she had been treating it symptomatically with ojuy-bfq-igvhoxi decongestants, a Neti pot, saline nasal flushes, and NyQuil for the past week and a half until now she has noted green colored discharge from her nose, odorous smell in her nose as well as her throat, a significant amount of postnasal drainage, and low grade fever. Feeling more rundown and feels now that she has a sinus infection. 2. Migraine headaches. Patient does have a history of migraine headaches. She states that she has been seen by Dr. Mcdonald (neurology) in the past who prescribed Midrin which treats her headaches adequately. She would like a refill of that medication. CURRENT MEDICATIONS Please see EMR. New reconciled medications are: Nasacort AQ one puff each nostril daily. Bactrim DS one tablet by mouth twice daily for 10 days. ALLERGIES She has an intolerance to Augmentin and Cipro. PAST MEDICAL/SURGICAL HISTORY Two sinus surgeries in the past. SOCIAL HISTORY She is a smoker. PHYSICAL EXAM In General: Patient appears nondistressed. Skin is warm and dry. Her head. She has significant submaxillary sinus tenderness that is noted. ENT: Ears were clear. Nose with erythremic boggy turbinates much worse on the left than the right. Throat is postnasal drainage noted. She does have significant halitosis. Heart with a regular rate and rhythm and her lungs are clear to auscultation. IMPRESSION/REPORT/PLAN 1. Sinusitis. PLAN: We will treat with Bactrim DS one tablet by mouth twice daily for 10 days increasing her fluids and rest. I also placed her on Claritin 10 mg one tablet by mouth daily and Nasonex AQ to be used daily also. She will report if no improvement or any worsening symptoms if she continues to have recurrence, it may be appropriate for her to see ENT to see what other option she has, but I did advise that she uses an lakx-maf-ggihlnd Claritin on a regular basis or allergy type medication. She also was advised for smoking cessation which she has no desire to at this time. 2. Migraine headaches. PLAN: We did go ahead and refill her Midrin. PATIENT EDUCATION: Ready to learn No apparent learning barriers were identified Learning preferences include listening Explained diagnosis and treatment plan Patient/Child/Caregiver expressed understanding of the content Janay Wayne N.P. /andre Electronically Signed By: JANAY WAYNE RN, EMAIL ENGINEER On: 07/21/2010 11:52 Source: [facility] MHSDOLBEYNONRADSYS Document Id: [id number] documented in this encounter Miscellaneous Notes Miscellaneous - Laine Diaz L.PLashawnNLashawn - 07/21/2010 9:38 AM CDT Health Assessment Health Assessment Entered On: 07/21/2010 9:39 CDT Performed On: 07/21/2010 9:38 CDT by LAINE DIAZ LPN Nutrition Nutrition Risk Factors by History Adult: None LAINE DIAZ LPN - 07/21/2010 9:38 CDT Functional Current Daily Living Assistance: None LAINE DIAZ LPN - 07/21/2010 9:38 CDT Dependent Habits Tobacco Use/Currently Using: Yes LAINE DIAZ LPN - 07/21/2010 9:38 CDT Tobacco Use Grid Type: Cigarettes Cigarette Use Packs/Day: 1.0 LAINE DIAZ LPN - 07/21/2010 9:38 CDT Caffeine Use Grid Caffeine Use: Current Type: Soft drinks Frequency: Daily LAINE DIAZ LPN - 07/21/2010 9:38 CDT Psychosocial Domestic Concerns: None LAINE DIAZ LPN - 07/21/2010 9:38 CDT Advance Directive Advanced Directives: No LAINE DIAZ LPN - 07/21/2010 9:38 CDT Educ Needs Learning Style Preference Adult Grid Patient: Demonstration Family: Demonstration LAINE DIAZ LPN - 07/21/2010 9:38 CDT Source: [employer] Document Id: [id number] CDT!24 Miscellaneous - Laine Diaz L.P.NLashawn - 07/21/2010 9:33 AM CDT Adult Cider Maker Intake/History Adult Cider Maker Intake/History Entered On: 07/21/2010 9:38 CDT Performed On: 07/21/2010 9:33 CDT by LAINE DIAZ LPN Intake Chief Complaint: sinus preassure, drainage,sore throat ,headache, green sinus drainage .cough Onset of Symptoms: 1 week Temperature Core: 36.6C(Converted to: 97.9DegF) Peripheral Pulse Rate: 100/min Respiratory Rate: 20/min Systolic Blood Pressure: 108mmHg Diastolic Blood Pressure: 72mmHg NIBP Mean: 84mmHg Heart Rhythm: Regular Height: 160.00cm(Converted to: 5ft 3in, 62.99in) Actual Weight: 85.300kg(Converted to: 188lb 1oz) Weight Source: Standing scale Dosing Weight Clinic: 85.30kg Clinic BSA: 1.95 Body Mass Index: 33.32kg/m2 LAINE DIAZ LPN - 07/21/2010 9:33 CDT Subjective Pain Symptoms: Yes LAINE DIAZ LPN - 07/21/2010 9:33 CDT Pain Pain Assessment Grid Pain 1 Location: Other: sinus Intensity: 3 LAINE DIAZ LPN - 07/21/2010 9:33 CDT Dependent Habits Tobacco Use/Currently Using: Yes LAINE DIAZ [facility] - 07/21/2010 9:33 CDT Tobacco Use Grid Type: Cigarettes Cigarette Use Packs/Day: 1.0 LAINE DIAZ [facility] - 07/21/2010 9:33 CDT Alcohol Use: No LAINE DIAZ [facility] - 07/21/2010 9:33 CDT Caffeine Use Grid Caffeine Use: Current Type: Soft drinks Frequency: Daily LAINE DIAZ [facility] - 07/21/2010 9:33 CDT Allergies Allergies (Active) Augmentin Estimated Onset Date: Unspecified ; Created By: YASMANY CAVANAUGH RN; Reaction Status: Active ; Category: Drug ; Substance: Augmentin ; Type: Allergy ; Updated By: YASMANY CAVANAUGH RN; Reviewed Date: 07/21/2010 9:32 CDT Cipro Estimated Onset Date: Unspecified ; Created By: YASMANY CAVANAUGH RN; Reaction Status: Active ; Category: Drug ; Substance: Cipro ; Type: Allergy ; Updated By: YASMANY CAVANAUGH RN; Reviewed Date: 07/21/2010 9:32 CDT Source: [facility] [employer] Document Id: [id number] CDT!36 documented in this encounter Plan of Treatment Not on filedocumented as of this encounter Visit Diagnoses Not on filedocumented in this encounter
--- OUTSIDE RECORDS SUMMARY | 2022-03-16 15:10 | XMS_ITS | Encounter Summary ---
:1980 Author Organization [facility] Address [address] [place] [address] Care Team Providers Name Role Phone Unavailable Primary Care Provider Unavailable Encounter Details Date Type Department Care Team Description 09/06/2010 Hospital Encounter HX [facility] ME Andrew Vera, LO, C.N.P., D. N.P. [address] [place] [address] (Wo rk) Social History Tobacco [...] Progress Notes Andrew Vera D.N.P., C.N.P. - 09/06/2010 12:00 AM CDT [id number] CHIEF COMPLAINT/REASON FOR VISIT Nausea. HISTORY OF PRESENT ILLNESS The patient is a 30-year-old female who presents to the clinic today with chief complaint of having some migraine headaches and some nausea. She reports that she was recently on antibiotics and states that she is aware that it does lessen the effectiveness of control and reports that she has been sexually active. She reports that she is not due for menses until next week but reports that there is a risk that she could be . She has presently been taking Compazine and Fiorinal to help with her migraines but reports that after she developed some nausea with her migraines and some breast tenderness she has refrained from using these medications knowing that there may be concerning with its use during . She reports that she has not had any fevers, chills, shortness of breath, or difficulty breathing. Denies any changes in urination or bowel habits. She reports that she had similar symptoms when she was last with her daughter. She otherwise denies having any other further concerns or complaints and more than anything is requesting medication that would be safer in comparison to the Compazine. PAST MEDICAL HISTORY/SURGICAL HISTORY FAMILY HISTORY Past medical, surgical, family history reviewed. Please see chart. CURRENT MEDICATIONS ALLERGIES Reviewed. Please see chart. PHYSICAL EXAMINATION GENERAL: Patient is an alert and well-nourished 30-year female who appears in no acute distress. HEENT: Head is normocephalic and atraumatic. Remainder of further examination deferred at this time. IMPRESSION/REPORT/PLAN History of migraines. PLAN: Discussed the findings at length with patient. Will have her discontinue the use of the Compazine and patient was given Zofran 4 mg tabs in which she can take one tablet by mouth every eight hours as need for nausea #60 with no refills authorized. Advised to discontinue the use of her Fiorinal and her Midrin and also advised that she can stop her Ortho TriCyclen until she has her menses and indicated to take a test when her menses is due. Advised that if she has any other further concerns or complaints follow-up would be warranted. The patient understands this plan and she denied any further questions or concerns. The patient ambulated out of the clinic in no acute distress. Patient Education #1 Patient ready to learn. No apparent learning barriers were identified. Learning preferences included listening. Explained diagnosis and treatment plan. Patient expressed understanding of the content. Andrew Vera D.N.P., F.N.P. / Electronically Signed By: ANDREW VERA DNP, FNP On: 09/07/2010 09:49 AM [facility] Document Id: [id number] documented in this encounter Miscellaneous Notes Miscellaneous - Andrew Vera D.N.P., C.N.P. - 09/06/2010 1:29 PM CDT Ambulatory Patient Summary [address] [address] Visit Information Name: CARTER MENSAH Current Date: 09/06/2010 13:29:14 Primary Care Provider: ANDREW VERA DNP, FNP [...] tablet) 4 mg Oral every 8 hours butalbital/ASA/caffeine (Fiorinal) 2 cap Oral every 6 hours isometheptene/dichloralphenazon/acetaminophen (Midrin) as needed loratadine (Claritin 10 mg oral tablet) 10 [...] Lipid Panel every 5 years Age 20-75 09/06/2010 Checks blood for good (HDL) and bad (LDL) cholesterol. Know your numbers, they are one indicator of your risk for heart attack and stroke. Vaccine: Tetanus every 10 years 06/13/2003 06/10/2013 Immunization to help prevent you from getting the serious disease Tetanus (Lockjaw). Your Upcoming Appointments Date Time Location Reason Provider No Appointments found Your Goals/Additional instructions: Source: [facility] POWERCHART Document Id: [id number] Electronically signed by Lesley [facility] Baggage Handling Supervisor [id number] at 09/18/2016 6:01 PM CDT Miscellaneous - Andrew Vera, Tristin.N.P., C.N.P. - 09/06/2010 1:29 PM CDT Ambulatory Depart Summary [address] [address] Visit Information Name: CARTER MENSAH Current Date: 09/06/2010 13:29:14 Primary Care Provider: ANDREW VERA DNP, ERGONOMICS ENGINEER CARTER MENSAH has been given the following [...] tablet) 4 mg Oral every 8 hours butalbital/ASA/caffeine (Fiorinal) 2 cap Oral every 6 hours isometheptene/dichloralphenazon/acetaminophen (Midrin) as needed loratadine (Claritin 10 mg oral tablet) 10 mg Oral once a day as needed for Allergy symptoms ethinyl estradiol-norgestimate (Ortho Tri-Cyclen) Oral once a day Additional Information: Yes - Current list of reconciled medications is provided and explained to the patient and/or family, guardian/caregiver. Source: [facility] POWERCHART Document Id: [id number] Electronically signed by Lesley, [facility] Baggage Handling Supervisor [id number] at 09/18/2016 6:01 PM CDT Miscellaneous - William Mishra, L.P.N. - 09/06/2010 11:33 AM CDT Adult Gear Straightener Intake/History Adult Gear Straightener Intake/History Entered On: 09/06/2010 11:36 CDT Performed On: 09/06/2010 11:33 CDT by WILLIAM MISHRA LPN Intake Chief Complaint: Discuss migraine medicartion, concerned aout being , Temperature Core: 36.3C(Converted to: 97.3DegF) (LOW) Peripheral Pulse Rate: 88/min Respiratory Rate: 16/min Systolic Blood Pressure: 114mmHg Diastolic Blood Pressure: 80mmHg NIBP Mean: 91mmHg BP Location: Right upper extremity SpO2: 98% Heart Rhythm: Regular Oxygen Therapy: Room air Actual Weight: 87.500kg(Converted to: 192lb 14oz) Weight Source: Standing scale Dosing Weight Clinic: 87.50kg WILLIAM MISHRA LPN - 09/06/2010 11:33 CDT Subjective Pain Symptoms: No WILLIAM MISHRA LPN - 09/06/2010 11:33 CDT Dependent Habits Tobacco Use/Currently Using: Yes Tobacco Use/Advised to Quit: Yes Exposure to Tobacco Smoke: Patient smokes VALDESROBYN Hannon LPN - 09/06/2010 11:33 CDT Tobacco Use Grid Type: Cigarettes Cigarette Use Packs/Day: 1.0 MISHRAWILLIAM LPN - 09/06/2010 11:33 CDT Alcohol Use: No DELIA WILLIAM Hannon LPN - 09/06/2010 11:33 CDT Caffeine Use Grid Caffeine Use: Current Type: Soft drinks Frequency: Daily DELIAWILLIAM LPN - 09/06/2010 11:33 CDT Allergy Allergies (Active) Augmentin Estimated Onset Date: Unspecified ; Created By: YASMANY CAVANAUGH RN; Reaction Status: Active ; Category: Drug ; Substance: Augmentin ; Type: Allergy ; Updated By: YASMANY CAVANAUGH RN; Reviewed Date: 08/16/2010 11:41 CDT Cipro Estimated Onset Date: Unspecified ; Created By: YASMANY CAVANAUGH RN; Reaction Status: Active ; Category: Drug ; Substance: Cipro ; Type: Allergy ; Updated By: YASMANY CAVANAUGH RN; Reviewed Date: 08/16/2010 11:41 CDT Silicone Estimated Onset Date: Unspecified ; Created By: JENNIFER FRANCIS RN; Reaction Status: Active ; Category: Drug ; Substance: Silicone ; Type: Sensitivity ; Updated By: JENNIFER FRANCIS RN; Reviewed Date: 08/21/2010 20:56 CDT Source: [facility] Molecular BiometricsCHART Document Id: [id number] CDT!32 documented in this encounter Plan of Treatment Not on filedocumented as of this encounter Visit Diagnoses Not on filedocumented in this encounter
--- OUTSIDE RECORDS SUMMARY | 2022-03-16 15:10 | XMS_ITS | Encounter Summary ---
:1980 Author Organization [facility] Address [address] [place] [address] Care Team Providers Name Role Phone Unavailable Primary Care Provider Unavailable Encounter Details Date Type Department Care Team Description 06/17/2010 Hospital Encounter HX [facility] Andrew Vera, LO, C.N.P., D. N.P. [address] [place] [address] (Wo rk) Social History Tobacco [...] Progress Notes Andrew Vera D.N.P., C.N.P. - 06/17/2010 12:00 AM CST [id number] CHIEF COMPLAINT/REASON FOR VISIT Repeat Pap. HISTORY OF PRESENT ILLNESS The patient is a 30-year-old female that presents to the clinic today for a repeat Pap examination. Patient was noted to have a colonoscopy six months ago though was due for a repeat Pap last month but was unable to come in and therefore is coming in today for her repeat Pap. The patient does have a history of abnormal paps with concern for high risk. Patient reports that she is continuing to smoke less than half a pack per day, more so five cigarettes per day, but reports that she is presently working on smoking cessation. She reports that she does have Chantix at home, though states that she does not want to start this medication as she has some fears regarding the side effects of this medication but is looking into light therapy for her treatment plan. She otherwise denies having any other further concerns or complaints at this time. PHYSICAL EXAMINATION Patient is an alert, well-nourished 30-year-old female that appears to be in no acute distress. Head is normocephalic, atraumatic. Speculum examination is unremarkable as cervix is nonfriable. LABS: Pap is present presently pending. IMPRESSION/REPORT/PLAN Repeat Pap (history of high-grade Pap findings and subsequent colposcopy). PLAN: Discussed the findings at length with the patient. I will plan on contacting the patient at [phone] regarding the pathology report. At that time, we will further investigate her follow up treatment plan. The patient stated they understand this plan and she denied having any further questions. Patient ambulated out of the clinic in no acute distress. PATIENT EDUCATION: Ready to learn No apparent learning barriers were identified Learning preferences include listening Explained diagnosis and treatment plan Patient/Child/Caregiver expressed understanding of the content Andrew Vera D.N.P., F.N.P. /andre Electronically Signed By: ANDREW VERA DNP, FNP On: 06/19/2010 09:12 Source: [facility]OLBE[facility]SYS Document Id: [id number] OR DATA WAREHOUSE DEVELOPER documented in this encounter Miscellaneous Notes Miscellaneous - Andrew Vera D.N.P., C.N.PLashawn - 06/24/2010 3:05 PM SENIOR DATA WAREHOUSE DEVELOPER Results Notification Document Contains Addenda Addendum by WILLIAM MISHRA LPN on 25 June 2010 11:12:57 SENIOR DATA WAREHOUSE DEVELOPER Letter sent. HC From: ANDREW VERA DNP, FNP To: WILLIAM MISHRA LPN Sent: 06/24/2010 15:05:30 SENIOR DATA WAREHOUSE DEVELOPER ! Show up: 06/24/2010 13:44:00 SENIOR DATA WAREHOUSE DEVELOPER Subject: Results Notification Actions: Notify patient of results Due Date/Time: 06/24/2010 13:44:00 SENIOR DATA WAREHOUSE DEVELOPER Source: [facility] POWERCHART Document Id: [id number] Electronically signed by Lesley [facility] Certified Marine Mechanic [id number] at 09/18/2016 5:18 PM CDT Miscellaneous - Andrew Vera D.N.P., C.N.PLashawn - 06/17/2010 12:24 PM SENIOR DATA WAREHOUSE DEVELOPER Ambulatory Patient Summary [facility] - [address] [id number] Visit Information Name: CARTER MENSAH Current Date: 06/17/2010 12:24:57 Primary Care Provider: SHAMEKA MURGUIA MD Your [...] through 5 then repeat on day 7 ethinyl estradiol-norgestimate (Ortho Tri-Cyclen) Oral once a day naproxen (naproxen 500 mg oral tablet) 500 mg Oral as needed Your Allergies & Intolerances Substance Reaction Symptoms Category Comments Cipro Drug Augmentin Drug Your Problem List Problem Status Onset Comments Migraine headache Active no known date of onset Sinusitis Active Your Recommendations We want to make sure [...] Smear every 3 years Women 21-65 06/17/2010 Checks for signs of cancer of the cervix. Lipid Panel every 5 years Age 20-75 06/17/2010 Checks blood for good (HDL) and bad (LDL) cholesterol. Know your numbers, they are one indicator of your risk for heart attack and stroke. Vaccine: Tetanus every 10 years 06/13/2003 06/10/2013 Immunization to help prevent you from getting the serious disease Tetanus (Lockjaw). Your Upcoming Appointments Date Time Location Reason Provider No Appointments found Your Goals/Additional instructions: Source: [facility] POWERCHART Document Id: [id number] Electronically signed by Conversion, [facility] Certified Marine Mechanic [id number] at 09/18/2016 5:18 PM CDT Miscellaneous - Andrew Vera D.N.P., C.N.P. - 06/17/2010 12:24 PM SENIOR DATA WAREHOUSE DEVELOPER Ambulatory Depart Summary [facility] [address] [place] [address] Visit Information Name: CARTER MENSAH Current Date: 06/17/2010 12:24:56 Primary Care Provider: SHAMEKA MURGUIA MD CARTER MENSAH has been given the following [...] through 5 then repeat on day 7 ethinyl estradiol-norgestimate (Ortho Tri-Cyclen) Oral once a day naproxen (naproxen 500 mg oral tablet) 500 mg Oral as needed Additional Information: Yes - Current list of reconciled medications is provided and explained to the patient and/or family, guardian/caregiver. Source: [facility] POWERCHART Document Id: [id number] Electronically signed by Lesley [facility] Certified Marine Mechanic [id number] at 09/18/2016 5:18 PM CDT Miscellaneous - William Mishra LLashawnP.N. - 06/17/2010 11:57 AM CST Health Assessment Health Assessment Entered On: 06/17/2010 11:58 SENIOR DATA WAREHOUSE DEVELOPER Performed On: 06/17/2010 11:57 SENIOR DATA WAREHOUSE DEVELOPER by WILLIAM MISHRA LPN Nutrition Nutrition Risk Factors by History Adult: None WILLIAM MISHRA LPN - 06/17/2010 11:57 SENIOR DATA WAREHOUSE DEVELOPER Functional Current Daily Living Assistance: None WILLIAM MISHRA LPN - 06/17/2010 11:57 SENIOR DATA WAREHOUSE DEVELOPER Dependent Habits Tobacco Use/Currently Using: Yes Tobacco Use/Advised to Quit: Yes WILLIAM MISHRA LPN - 06/17/2010 11:57 SENIOR DATA WAREHOUSE DEVELOPER Tobacco Use Grid Type: Cigarettes Cigarette Use Packs/Day: 1.0 WILLIAM MISHRA LPN - 06/17/2010 11:57 SENIOR DATA WAREHOUSE DEVELOPER Caffeine Use Grid Caffeine Use: Current Type: Soft drinks Frequency: Daily WILLIAM MISHRA LPN - 06/17/2010 11:57 SENIOR DATA WAREHOUSE DEVELOPER Psychosocial Domestic Concerns: None WILLIAM MISHRA LPN - 06/17/2010 11:57 SENIOR DATA WAREHOUSE DEVELOPER Advance Directive Advanced Directives: No WILLIAM MISHRA LPN - 06/17/2010 11:57 SENIOR DATA WAREHOUSE DEVELOPER Educ Needs Learning Style Preference Adult Grid Patient: None Family: None WILLIAM MISHRA LPN - 06/17/2010 11:57 SENIOR DATA WAREHOUSE DEVELOPER Source: [facility] Invisible Document Id: [id number] SENIOR DATA WAREHOUSE DEVELOPER!25 OR DATA WAREHOUSE DEVELOPER Miscellaneous - William iMshra L.P.NLashawn - 06/17/2010 11:56 AM CST Adult Starch Crab Intake/History Adult Starch Crab Intake/History Entered On: 06/17/2010 11:57 SENIOR DATA WAREHOUSE DEVELOPER Performed On: 06/17/2010 11:56 SENIOR DATA WAREHOUSE DEVELOPER by WILLIAM MISHRA LPN Intake Chief Complaint: 6 mo post op check up of shave cone biopsy Temperature Core: 36.6C(Converted to: 97.9DegF) Peripheral Pulse Rate: 88/min Respiratory Rate: 16/min Systolic Blood Pressure: 102mmHg Diastolic Blood Pressure: 70mmHg NIBP Mean: 81mmHg BP Location: Right upper extremity Heart Rhythm: Regular Actual Weight: 86.700kg(Converted to: 191lb 2oz) Weight Source: Standing scale Dosing Weight Clinic: 86.70kg WILLIAM MISHRA LPN - 06/17/2010 11:56 SENIOR DATA WAREHOUSE DEVELOPER Subjective Pain Symptoms: No WILLIAM MISHRA LPN - 06/17/2010 11:56 SENIOR DATA WAREHOUSE DEVELOPER Dependent Habits Tobacco Use/Currently Using: Yes Tobacco Use/Advised to Quit: Yes WILLIAM MISHRA LPN - 06/17/2010 11:56 SENIOR DATA WAREHOUSE DEVELOPER Tobacco Use Grid Type: Cigarettes Cigarette Use Packs/Day: 1.0 WILLIAM MISHRA LPN - 06/17/2010 11:56 SENIOR DATA WAREHOUSE DEVELOPER Alcohol Use: No WILLIAM MISHRA LPN - 06/17/2010 11:56 SENIOR DATA WAREHOUSE DEVELOPER Caffeine Use Grid Caffeine Use: Current Type: Soft drinks Frequency: Daily WILLIAM MISHRA MAGNETIC TESTER - 06/17/2010 11:56 SENIOR DATA WAREHOUSE DEVELOPER Allergies Allergies (Active) Augmentin Estimated Onset Date: Unspecified ; Created By: YASMANY CAVANAUGH RN; Reaction Status: Active ; Category: Drug ; Substance: Augmentin ; Type: Allergy ; Updated By: YASMANY CAVANAUGH RN; Reviewed Date: 06/02/2010 7:30 SENIOR DATA WAREHOUSE DEVELOPER Cipro Estimated Onset Date: Unspecified ; Created By: YASMANY CAVANAUGH RN; Reaction Status: Active ; Category: Drug ; Substance: Cipro ; Type: Allergy ; Updated By: YASMANY CAVANAUGH RN; Reviewed Date: 06/02/2010 7:30 SENIOR DATA WAREHOUSE DEVELOPER Source: [facility] POWERCHART Document Id: [id number] SENIOR DATA WAREHOUSE DEVELOPER!29 OR DATA WAREHOUSE DEVELOPER documented in this encounter Plan of Treatment Not on filedocumented as of this encounter Procedures Procedure Name Priority Date/Time Associated Diagnosis Comme nts THINPREP SCREEN HPV Routine 06/17/2010 12:10 PM R esults for this REFLEX SENIOR DATA WAREHOUSE DEVELOPER procedure are i n the results section. documented in this encounter Results ThinPrep Screen HPV Reflex (06/17/2010 12:10 PM SENIOR DATA WAREHOUSE DEVELOPER) [facility] Method Time Signature Interpretation [id number] POWERCHART HXPrep Scrn See Comment POWERCHART [facility] Comment: A. ??ThinPrep Pap Test Screen (Cervical/ Endocervical HPV Reflex): Satisfactory for evaluation. Negative for intraepithelial lesion or m alignancy. Screened at [facility] Cytology Analysi s Office [address] [place] [id number] HXThPrep Scrn [facility] See Comment TYLER RCHART Comment: Report electronically signed by SILVANO Valerio(ASC) 06/24/2010 13:00 Interpreted by: SILVANO Valerio(ASCP) [facility] See Comment POWERCHART Comment: A. ??ThinPrep Pap Test Screen (Cervical/ Endocervical HPV Reflex): Received cloudy specimen in ThinPrep via l. Test Performed by: [facility] Dpt of Lab Med and Pathology [address] [place] [id number] Application Support Technician: Pranav morris III, M.D. Specimen (Source) Anatomical Collection Method Collection Time Re ceived Time Location / / Volume Laterality Cervix/Endocervix 06/17/2010 12:10 PM SENIOR DATA WAREHOUSE DEVELOPER Andrew Vera APRN C.N.P., D.N.P. LAB PAP PATHDX ORDERABLES Performing Organization Address City/State/ZIP Code Phon e Number POWERCHART documented in this encounter Visit Diagnoses Not on filedocumented in this encounter
--- OUTSIDE RECORDS SUMMARY | 2022-03-16 15:10 | XMS_ITS | Encounter Summary ---
:1980 Author Organization [facility] Address [address] [place] [address] Care Team Providers Name Role Phone Unavailable Primary Care Provider Unavailable Encounter Details Date Type Department Care Team Description 09/30/2010 Hospital Encounter HX [facility] ED Joseph Jewell M.D. [address] [place], [place] [phone] (Wo rk) Social History [...] documented as of this encounter Discharge Summaries Laine Tanner R.N. - 09/30/2010 9:19 PM CDT ED Discharge Instructions [address] [address] Name: CARTER MENSAH Date of : 1980 12:00 AM Visit Date: 09/30/2010 8:17 PM Address: [address] [place] [phone] Primary Care Provider: ANDREW VERA DNP, WAITER/WAITRESS CAPTAIN IMPORTANT: [facility] in [place] would like to thank you for allowing us to assist you with your healthcare needs. The following includes patient education materials and informationregarding your injury/illness. Follow-Up Instructions: With: Address: When: ANDREW VERA [address] [place] [phone] phone, Kasenna (7) Within As Needed Comments: Patient Education Materials: [id number] MIGRAINE HEADACHE Migraine headaches are related to [...] -- Difficulty with speech or vision ?? [phone] [employer], [address] [place] [address], [place] [address]. All rights reserved. This information is not intended as a substitute for professional medical care. Always follow your healthcare professional's instructions. Discharge Prescriptions & Home Medications: Medication/Strength Dose Route Frequency Indications/Special Instructions/Comments ergotamine-caffeine (Cafergot) Oral Headache nicotine (nicotine 7 mg/24 hr transdermal film, extended release) 1 patch(es) Topical once a day ondansetron (Zofran 4 mg [...] Responsible Republican/Relationship Date/Time Provider Signature Date/Time Source: Inflection Document Id: [id number] Electronically signed by Conversion, [facility] [employer] [id number] at 09/18/2016 8:34 PM CDT Laine Tanner RBessy - 09/30/2010 9:19 PM CDT ED Depart Summary [facility] Emergency Department Clinical Discharge Summary PERSON INFORMATION Name CARTER MENSAH Age 30 Years 1980 12:00 AM Sex Female Language Polish PCP ANDREW VERA DNP, WAITER/WAITRESS CAPTAIN Marital Status Single Visit Id Visit Reason Headache; MIGRAINE Specialty Enc Type Emergency Med Service Emergency Medicine Referred by Track Group [facility] ED Discharge 09/30/2010 9:19 PM Tracking Id [id number] Checkout 09/30/2010 9:19 PM Checkin 09/30/2010 8:17 PM Acuity 3 -Urgent Dispo Type * Discharged to Home or Self Care Arrival 09/30/2010 8:17 PM Reg Status LOS 000 01:02 Address: [address] [place] [phone] Comment: PROVIDER INFORMATION DIAGNOSIS Migraine headache Comment: PATIENT EDUCATION INFORMATION Instructions: HEADACHE, Migraine (Classical) Follow up: With: Address: When: ANDREW VERA [address] [place] [phone] phone, Kasenna (1) Within As Needed Comments: Source: [facility] Shizzlr Document Id: [id number] Electronically signed by Conversion, [facility] [employer] [id number] at 09/18/2016 8:33 PM CDT documented in this encounter Nursing Notes Laine Tanner RBessy - 09/30/2010 8:29 PM CDT ED Primary Assessment ED Primary Assessment Entered On: 09/30/2010 20:46 CDT Performed On: 09/30/2010 20:29 CDT by LAINE TANNER RN Reason For Visit Problems(Active) Abnormal Pap Name of Problem: Abnormal Pap ; Onset Date: 10/21/2009 ; Recorder: JENNIFER LIN LPN; Confirmation: Confirmed ; Classification: Nursing ; Code: 1231 ; Contributor System: PowerChart ; Last Updated: 08/16/2010 4:50 CDT ; [...] FULLER RN; Vocabulary: ICD-9-CM Diagnoses(Active) Headache Date: 09/30/2010 20:29 CDT ; Diagnosis Type: Reason For Visit ; Confirmation: Complaint of ; Classification: Medical ; Clinical Service: Emergency medicine ; Code: PNED ; Probability: 0 ; Diagnosis Code: [id number] Triage Chief Complaint Description: migrane started this am n/v hx of migranes also fyi had tubual miscarraige had methotrexate injection yesterday to help kill cells Mode of Arrival ED: Private vehicle Track: Medical Languages: Polish Pain Symptoms: Yes LAINE TANNER RN - 09/30/2010 20:29 CDT Pain Pain Assessment Grid Pain 1 Location: Head (Comment: migraine [LAINE TANNER RN - 09/30/2010 20:29 CDT] ) Intensity: 10 Time Pattern: Acute Onset: Sudden LAINE TANNER RN - 09/30/2010 20:29 CDT ED Physician Notification Time ED Physician Notification Time: 09/30/2010 20:33 CDT LAINE TANNER RN - 09/30/2010 20:29 CDT MORALES MORALES Level 1: No MORALES Level 2: Yes LAINE TANNER RN - 09/30/2010 20:29 CDT Allergy Allergies (Active) Augmentin Estimated Onset [...] FRANCIS RN; Reviewed Date: 09/30/2010 20:34 CDT Respiratory Airway: Patent Respirations: Unlabored Respiratory Pattern: Regular Oxygen Therapy: Room air LAINE TANNER RN - 09/30/2010 20:29 CDT Cardiovascular Heart Rhythm: Regular Skin Color: Normal for ethnicity Skin Description: Dry Skin Temperature: Warm LAINE TANNER RN - 09/30/2010 20:29 CDT Neurological Characteristics of Speech: Clear LAINE TANNER RN - 09/30/2010 20:52 CDT Level of Consciousness: Alert Orientation: Oriented x 3 Gait: Steady LAINE TANNER RN - 09/30/2010 20:29 CDT ED Psychosocial Affect/Behavior: Calm, Cooperative, Appropriate Domestic Abuse Concerns: None LAINE TANNER RN - 09/30/2010 20:51 CDT ED Psychosocial Deviation: had recent miscarrariage tubal had shot of methotrxate yesterday LAINE TANNER RN - 09/30/2010 20:29 CDT Gastrointestinal Nutrition ED: Adequate Nutrition ED Freetext: nauea and vomiting since am LAINE TANNER RN - 09/30/2010 20:29 CDT Musculoskeletal Fall Prevention Education Provided: Yes LAINE TANNER RN - 09/30/2010 20:29 CDT Social Habits Tobacco Use Grid Tobacco Use: Current, Advised to Quit Type: Cigarettes Cigarette Use Packs/Day: 1.0 Comments (Comment: down to 6-7 smokes a day [LAINE TANNER RN - 09/30/2010 20:51 CDT] ) LAINE TANNER RN - 09/30/2010 20:51 CDT Exposure to Tobacco Smoke: Patient smokes LAINE TANNER RN - 09/30/2010 20:51 CDT Source: Inf[employer] Document Id: [id number] CDT!3 documented in this encounter ED Notes Laine Tanner R.N. - 09/30/2010 9:17 PM CDT ED Disposition Summary ED Disposition Summary Entered On: 09/30/2010 21:18 CDT Performed On: 09/30/2010 21:17 CDT by LAINE TANNER RN ED Disposition Summary Accompanied By: Mother Mode of Discharge: Wheelchair Transportation: Private vehicle Patient Status at Discharge from ED: Improved Comment: pain less than arrival requested to go home med wroking she feeling tired and ready to sleep no n/v while in ER had ride for home LAINE TANNER RN - 09/30/2010 21:17 CDT Source: Inflection Document Id: [id number] CDT!7 Joseph Jewell M.D. - 09/30/2010 8:43 PM CDT Headache *ED Patient: CARTER MENSAH - CF MRN Age: 30 years Sex: Female : 1980 Author: JOSEPH JEWELL MD Basic Information Time seen: Date & time 09/30/2010 20:44:00, Immediately upon arrival. History source: Patient. Arrival mode: Private vehicle. History limitation: None. History of Present Illness The patient presents with headache and migraine. The onset was 12 hours ago. The course/duration of symptoms is constant and worsening. Location: Bilateral frontal. Radiating pain: none. The character of symptoms is tightness, pressure and throbbing. The degree at onset was moderate. The degree at maximum was severe. The degree at present is moderate. Exacerbating factors consist of light exertion.There are relieving factors including light avoidance and lying down. Risk factors consist ofhad methotrexate injection yesterday to complete a partial . Prior episodes: frequent. Therapy today: none. Preceding symptoms: none. Associated symptoms: nausea, vomiting and photophobia. says is typical of previous migraines. Review of Systems Constitutional symptoms: Negative except as documented in HPI. Skin symptoms: Negative except as documented in HPI. Eye symptoms: Negative except as documented in HPI. ENMT symptoms: Negative except as documented in HPI. Respiratory symptoms: Negative except as documented in HPI. Cardiovascular symptoms: Negative except as documented in HPI. Gastrointestinal symptoms: Negative except as documented in HPI. Genitourinary symptoms: methotrexate shot as above to complete a partial yesterday. Neurologic symptoms: Headache no altered level of consciousness, no numbness, no tingling, no weakness. Health Status Allergies: . Allergic Reactions (all) Cipro, Augmentin Nonallergic Reactions Silicone Medications: . Medication Orders ketorolac, 60 mg, 2 mL, IM, Once, For patients younger than 65 years of age hydrOXYzine (Vistaril IM), 50 mg, 1 mL, IM, Once Prescriptions and Home Medications loratadine (Claritin 10 mg oral tablet), 10 mg, 1 tab(s), PO, Daily, 30 tab(s), PRN ondansetron (Zofran 4 mg oral tablet), 4 mg, 1 tab(s), PO, q8hr, 30 tab(s) nicotine (nicotine 7 mg/24 hr transdermal film, extended release), 1 patch(es), Topical, Daily, 30 patch(es) Past Medical/ Family/ Social History Medical history: Medical history. No active or resolved past medical history items have been selected or recorded. Surgical history: Surgical history. Mantoux test ([id number]) in 2011 at 29 Years. Mantoux test ([id number]) in 2011 at 29 Years. Endometrial sampling (biopsy) with or without endocervical sampling (biopsy), without cervical dilation, any method (separate procedure) (19293) in 2009 at 29 Years. Nasal sinus ([id number]) in 2000 at 20 Years. Comments: 06/10/2010 16:11 - SANDRINE FULLER RN sinus surgeries Tonsillectomy with adenoidectomy ([id number]) in 1994 at 13 Years. Problem list: . All Problems Abnormal Pap / 795.00 / Confirmed Migraine headache / 346.90 / Confirmed no known date of onset Sinusitis / 473.9 / Confirmed Physical Examination Vital signs: Vital Signs. 09/30/2010 20:46 CDT Diastolic Blood Pressure 75 mmHg General: Alert. moderate distress. Skin: Warm Head: Normocephalic. atraumatic. Neck: Supple. trachea midline. Eye: Pupils are equal, round and reactive to light. extraocular movements are intact. Ears, nose, mouth and throat: Tympanic membranes clear Cardiovascular: Regular rate and rhythm. No murmur. Respiratory: Lungs are clear to auscultation. respirations are non-labored. Gastrointestinal: Soft. Nontender. Non distended. Musculoskeletal: Normal ROM. normal strength. Neurological: Alert and oriented to person, place, time, and situation. No focal neurological deficit observed. normal sensory observed. normal motor observed. normal speech observed. Psychiatric: Cooperative Medical Decision Making Differential Diagnosis:Migraine, tension headache. Rationaletypical of previous migraines, no focal exam findings.. Reexamination/ Reevaluation Re-examination/Re-evaluation:Time 09/30/2010 21:09:00, improved after 60 mg IM toradol and 50 mg IM vistaril. Impression and Plan Diagnosis Migraine headache (Discharge, Emergency medicine, Medical) Discharge plan Condition: Improved. Dispositioned: Time 09/30/2010 21:10:00, To home. Counseled: Patient, Regarding diagnosis, Regarding diagnostic results, Regarding treatment plan, Regarding prescription, Patient indicated understanding of instructions. Source: [facility] POWERCHART Document Id: [id number]} documented in this encounter Miscellaneous Notes Miscellaneous - Laine Tanner RBessy - 09/30/2010 9:18 PM CDT Valuables/Belongings Valuables/Belongings Entered On: 09/30/2010 21:18 CDT Performed On: 09/30/2010 21:18 CDT by LAINE TANNER RN Valuables/Belongings Comment: all belongings with her LAINE TANNER RN - 09/30/2010 21:18 CDT Source: Inflection Document Id: [id number] CDT!3 Miscellaneous - Laine Tanner R.N. - 09/30/2010 8:17 PM CDT Facility Charge Ticket Facility Charge Ticket Entered On: 09/30/2010 21:19 CDT Performed On: 09/30/2010 20:17 CDT by LAINE TANNER RN Facility Charge TVL Level for Facility Charge Ticket: Level 4 Mode of Arrival ED: Private vehicle Lynx Mode of Arrival Interpreted: Standard Lynx Process Management: None Lynx Order Management: None 30 Minutes Critical Care: No Lynx Nursing Assessment: Triage and 1-2 nursing assessments Lynx Disposition: Discharge Lynx Total Points with Diagnosis Control: 7 Lynx Visit Level: 25351 Level 3 LAINE TANNER RN - 09/30/2010 21:18 CDT Chief Complaint 8.50.02 Reason For Visit Category: Neurology ED Chief Complaint Neurology 8.5: Headache - recurrent TVL Ca TVL for Facility Charge Ticket Dx: Level 2 LAINE TANNER RN - 09/30/2010 21:18 CDT Source: Inflection Document Id: [id number] CDT!17 documented in this encounter Plan of Treatment Not on filedocumented as of this encounter Visit Diagnoses Not on filedocumented in this encounter
--- OUTSIDE RECORDS SUMMARY | 2022-03-16 15:10 | XMS_ITS | Encounter Summary ---
:1980 Author Organization [facility] Address [address] [place] [address] Care Team Providers Name Role Phone Unavailable Primary Care Provider Unavailable Encounter Details Date Type Department Care Team Description 02/15/2011 Hospital Encounter HX [facility] Andrew Vera, LO, C.N.P., D. N.P. [address] [place] [address] (Wo rk) Social History [...] Progress Notes Andrew Vera D.N.P., C.N.P. - 02/15/2011 12:00 AM CDT [id number] CHIEF COMPLAINT/REASON FOR VISIT Nasal congestion. HISTORY OF PRESENT ILLNESS The patient is a 30-year-old female that presents to the clinic today with chief complaint of nasal congestion that has been present now for the past four days duration. She reports that she has not been having any fevers or chills but reports that she has been having some generalized body aches. She reports that she has been using some zgjg-ers-uahrpdv generic Sudafed with minimal symptom improvement. She reports that she did not go to work today as she does require an excuse for today and reports that she has not been exposed to any kind of viral or bacterial infection the she is aware of. PAST MEDICAL/SURGICAL HISTORY Reviewed. Please see chart. FAMILY HISTORY Reviewed. Please see chart. CURRENT MEDICATIONS Reviewed. Please see chart. ALLERGIES Reviewed. Please see chart. PHYSICAL EXAMINATION OBJECTIVE: Patient is alert/oriented x 3. HEAD: Normocephalic/atraumatic. PUPILS: GLEN. OROPHARYNX: Red [place]et and moist. TMs: Bilateral TMs are clear, bony landmarks noted and WNL. NARES: The bilateral nares are erythematous and enlarged with right naris noted to have complete obstruction. I do not appreciate any secretions on examination. NECK: No anterior/posterior lymphadenopathy noted. HEART: Regular S1, S2, no murmurs, rubs or gallops noted. LUNGS: Clear to auscultation, no prolonged expiratory phases, wheezing, rales or rhonchi noted. SKIN: Without unusual rashes or suspicious lesions IMPRESSION/REPORT/PLAN Upper respiratory infection. PLAN: Discussed the findings at length with the patient. Advised most likely her symptoms are secondary to viral etiology and will continue monitoring her symptoms. Patient was excused for the remainder of the week from work at this time and indicated that if the symptoms worsen I would recommend followup. Patient stated she understands this plan as she denied having any other further concerns. The patient ambulated out of the clinic in no acute distress. PATIENT EDUCATION: Ready to learn No apparent learning barriers were identified Learning preferences include listening Explained diagnosis and treatment plan Patient/Child/Caregiver expressed understanding of the content Andrew Vera D.N.P., F.N.P. /andre Electronically Signed By: ANDREW VERA DNP, FNP On: 02/18/2011 07:54 PM Source[facility] Document Id: [id number] documented in this encounter Miscellaneous Notes Miscellaneous - Andrew Vera D.N.P., C.N.P. - 02/15/2011 7:12 PM CDT Ambulatory Patient Summary [address] [address] Visit Information Name: CARTER MENSAH Current Date: 02/15/2011 19:12:26 Primary Care Provider: ANDREW VERA DNP, FNP [...] Lipid Panel every 5 years Age 20-75 02/15/2011 Checks blood for good (HDL) and bad (LDL) cholesterol. Know your numbers, they are one indicator of your risk for heart attack and stroke. Vaccine: Tetanus every 10 years 06/13/2003 06/10/2013 Immunization to help prevent you from getting the serious disease Tetanus (Lockjaw). Your Upcoming Appointments Date Time Location Reason Provider No Appointments found Your Goals/Additional instructions: Source: [facility] POWERCHART Document Id: [id number] Miscellaneous - Andrew Vera, D.N.P., C.N.P. - 02/15/2011 7:12 PM CDT Ambulatory Depart Summary [address] [address] Visit Information Name: CARTER MENSAH Current Date: 02/15/2011 19:12:24 Primary Care Provider: ANDREW VERA DNP, MAMMALOGY TEACHER CARTER MENSAH has been given the following [...] to the patient and/or family, guardian/caregiver. Source: [facility] POWERCHART Document Id: [id number] Miscellaneous - William Mishra LLashawnP.N. - 02/15/2011 6:00 PM CDT Adult Senior Java Data Architect Intake/History Adult Senior Java Data Architect Intake/History Entered On: 02/15/2011 18:02 CDT Performed On: 02/15/2011 18:00 CDT by WILLIAM MISHRA LPN Intake Chief Complaint : F/U cold not better, x1 wk Temperature Core : 36.8C(Converted to: 98.2DegF) Peripheral Pulse Rate : 82/min Respiratory Rate : 20/min Systolic Blood Pressure : 114mmHg Diastolic Blood Pressure : 78mmHg NIBP Mean : 90mmHg BP Location : Left upper extremity SpO2 : 98% Heart Rhythm : Regular Oxygen Therapy : Room air Actual Weight : 85.2kg(Converted to: 187lb 13oz) Weight Source : Standing scale Dosing Weight Clinic : 85.20kg WILLIAM MISHRA LPN - 02/15/2011 18:00 CDT Subjective Pain Symptoms : No MISHRA, WILLIAM Hannon LPN - 02/15/2011 18:00 CDT Dependent Habits Tobacco Use/Currently Using : Yes Tobacco Use/Advised to Quit : Yes Exposure to Tobacco Smoke : Patient smokes Smoking Status : Smoker DELIA WILLIAM Hannon LPN - 02/15/2011 18:00 CDT Tobacco Use Grid Type : Cigarettes Cigarette Use Packs/Day : 1.0 WILLIAM MISHRA LPN - 02/15/2011 18:00 CDT Alcohol Use : No MISHRAWILLIAM LPN - 02/15/2011 18:00 CDT Caffeine Use Grid Caffeine Use : Current Type : Soft drinks Frequency : Daily WILLIAM MISHRA LPN - 02/15/2011 18:00 CDT Recreational Drug Use Grid Drug Use : None WILLIAM MISHRA LPN 02/15/2011 18:00 CDT Allergy Allergies (Active) Cipro Estimated Onset [...] RN; Reviewed Date: 02/11/2011 10:23 CDT Source: [facility] Precognate Document Id: [id number] CDT!36 documented in this encounter Plan of Treatment Not on filedocumented as of this encounter Visit Diagnoses Not on filedocumented in this encounter
--- OUTSIDE RECORDS SUMMARY | 2022-03-16 15:10 | XMS_ITS | Encounter Summary ---
:1980 Author Organization [facility] Address [address] [place] [address] Care Team Providers Name Role Phone Unavailable Primary Care Provider Unavailable Encounter Details Date Type Department Care Team Description 03/15/2010 Hospital Encounter HX [facility] IN[facility] Zina Campbell, LO, C.N.P., D.N.P. [address] [place] [address] (Wo rk) Social History Tobacco [...] How often do you attend pentecostal or More than 4 times per year 11/09/2020 yarsani services? Do you belong to any clubs or No 11/09/2020 organizations such as pentecostal groups, unions, fraternal [...]
--- OUTSIDE RECORDS SUMMARY | 2022-03-16 15:10 | XMS_ITS | Encounter Summary ---
:1980 Author Organization [facility] Address [address] [place] [address] Care Team Providers Name Role Phone Unavailable Primary Care Provider Unavailable Encounter Details Date Type Department Care Team Description 08/21/2010 Hospital [facility] ED Angel Lyon M.D. [address] [place], [place] [address] (Wo rk) Social History [...] Discharge Summaries Conversion, Historical Provider Ser - 08/21/2010 9:35 PM CDT ED Discharge Instructions [id number] [place] [address] Name: DULCE MENSAH Date of : 1980 12:00 AM Visit Date: 08/21/2010 8:36 PM Address: [address] [place] [phone] Primary Care Provider: SHAMEKA MURGUIA MD IMPORTANT: [facility] would like to thank you for allowing us to assist you with your healthcare needs. The following includes patient education materials and information regarding your injury/illness. Follow-Up Instructions: With: Address: When: Follow up with primary care provider Within As Needed Comments: Patient Education Materials: [id number] MIGRAINE HEADACHE Migraine headaches are related to [...] -- Difficulty with speech or vision ?? [phone] [email or web address], [address] [place] [address], [place] [address]. All rights reserved. This information is not intended as a substitute for professional medical care. Always follow your healthcare professional's instructions. Discharge Prescriptions & Home Medications: Medication/Strength Dose Route Frequency Indications/Special Instructions/Comments prochlorperazine (Compazine 10 mg oral tablet) 1 tab Oral every 6 hours loratadine (Claritin 10 mg oral tablet) [...] information about how to take those medications. DULCE MENSAH or holley has reviewed the home [...] information about how to take those medications. DULCE MENSAH or lyudmilaee has reviewed the home [...] Responsible Libertarian/Relationship Date/Time Provider Signature Date/Time Source: [facility] T[employer] Twitter DashboardCHART Document Id: [id number] Conversion, Historical Provider Ser - 08/21/2010 9:35 PM CDT ED Depart Summary [facility] Emergency Department Clinical Discharge Summary PERSON INFORMATION Name DULCE MENSAH Age 30 Years 1980 12:00 AM Sex Female Language Swedish PCP SHAMEKA MURGUIA MD Marital Status Single Visit Id Visit Reason Headache; Headache; MIGRANE HEAD ACHE Specialty Enc Type Emergency Med Service Emergency Medicine Referred by Track Group [facility] ED Discharge 08/21/2010 9:35 PM Tracking Id [id number] Checkout 08/21/2010 9:35 PM Checkin 08/21/2010 8:36 PM Acuity Dispo Type Discharged to Home or Self Care Arrival 08/21/2010 8:36 PM Reg Status LOS 000 00:59 Address: [address] [place] [phone] Comment: PROVIDER INFORMATION Provider Role Assigned Unassigned ELLEN LYON MD ED Provider 08/21/2010 8:53 PM DIAGNOSIS Migraine headache; Migraine headache Comment: PATIENT EDUCATION INFORMATION Instructions: HEADACHE, Migraine (Classical) Follow up: With: Address: When: Follow up with primary care provider Within As Needed Comments: Source: [employer] Document Id: [id number] documented in this encounter Nursing Notes Conversion, Historical Provider Ser - 08/21/2010 8:55 PM CDT ED Pain Assessment ED Pain Assessment Entered On: 08/21/2010 20:55 CDT Performed On: 08/21/2010 20:55 CDT by JENNIFER FRANCIS RN Pain Pain Assessment Grid Pain 1 Intensity: 6 JENNIFER FRANCIS RN - 08/21/2010 20:55 CDT Source: [employer] Document Id: [id number] CDT!5 Conversion, Historical Provider Ser - 08/21/2010 8:49 PM CDT ED Primary Assessment ED Primary Assessment Entered On: 08/21/2010 20:50 CDT Performed On: 08/21/2010 20:49 CDT by JENNIFER FRANCIS RN Reason For Visit Problems(Active) Abnormal Pap Name of Problem: Abnormal Pap ; Onset Date: 10/21/2009 ; Recorder: JENNIFER LIN LPN; Confirmation: Confirmed ; Classification: Nursing ; Code: 1231 ; Contributor System: [employer] ; Last Updated: 08/16/2010 4:50 CDT ; [...] FULLER RN; Vocabulary: ICD-9-CM Diagnoses(Active) Headache Date: 08/21/2010 20:49 CDT ; Diagnosis Type: Reason For Visit ; Confirmation: Complaint of ; Classification: Medical ; Clinical Service: Non- Specified ; Code: PNED ; Probability: 0 ; DiagnosisCode: [id number] Triage Information Given By: Patient Accompanied By: Mother Mode of Arrival ED: Private vehicle Track: Medical Languages: Swedish Pain Symptoms: Yes JENNIFER FRANCIS RN - 08/21/2010 20:49 CDT Pain Pain Assessment Grid Pain 1 Intensity: 6 JENNIFER FRANCIS RN - 08/21/2010 20:49 CDT Allergy Allergies (Active) Augmentin Estimated Onset [...] CAVANAUGH RN; Reviewed Date: 08/16/2010 11:41 CDT Respiratory Airway: Patent Respirations: Unlabored Respiratory Pattern: Regular JENNIFER FRANCIS RN - 08/21/2010 20:49 CDT Cardiovascular Heart Rhythm: Regular Skin Color: Normal for ethnicity Skin Description: Dry Skin Temperature: Warm JENNIFER FRANCIS RN - 08/21/2010 20:49 CDT Neurological Level of Consciousness: Alert Orientation: Oriented x 3 Characteristics of Speech: Clear Neuro Patient Stated Symptoms: None JENNIFER FRANCIS RN - 08/21/2010 20:49 CDT ED Psychosocial Affect/Behavior: Calm Domestic Concerns: None JENNIFER FRANCIS RN - 08/21/2010 20:49 CDT Gastrointestinal Nutrition ED: Adequate JENNIFER FRANCIS RN - 08/21/2010 20:49 CDT Musculoskeletal Fall Prevention Education Provided: JENNIFER MANUEL RN - 08/21/2010 20:49 CDT Source: [facility] [employer] Document Id: [id number] CDT!33 documented in this encounter ED Notes Conversion, Historical Provider Ser - 08/21/2010 9:31 PM CDT ED Disposition Summary ED Disposition Summary Entered On: 08/21/2010 21:31 CDT Performed On: 08/21/2010 21:31 CDT by JENNIFER FRANCIS RN ED Disposition Summary Accompanied By: Mother Mode of Discharge: Ambulatory Transportation: Private vehicle Patient Status at Discharge from ED: Improved JENNIFER FRANCIS RN - 08/21/2010 21:31 CDT Source: [employer] Document Id: [id number] CDT!6 Ellen Lyon M.D. - 08/21/2010 9:21 PM CDT Headache *ED Patient: DULCE MENSAH - CF MRN Age: 30 years Sex: Female : 1980 Author: ELLEN LYON MD Basic Information Time seen: Date 08/22/2010. History source: Patient, family. Arrival mode: Walking. History limitation: None. Additional information:: Chief Complaint from Nursing Triage Note : Chief Complaint Description. 08/21/2010 20:45 CDT Chief Complaint Description Migarine with Nausea History of Present Illness The patient presents with migraine and Awoke with a headache this AM. Got better after she took a migraine pill, but then started up again this afternoon. Gets these headaches at least monthly.. The onset was 10 hours ago. The course/duration of symptoms is constant. Location: Frontal retro-orbital. Radiating pain: none. The character of symptoms is pressure and dull. The degree at onset was moderate. The degree at maximum was severe. The degree at present is severe. Exacerbating factors consist of light, noise exertion. There are relieving factors including light avoidance, noise avoidance and rest. Risk factors consist of none. Prior episodes: occasional. Therapy today: prescription medications. Preceding symptoms: none. Associated symptoms: nausea. Review of Systems Constitutional symptoms: no fever Skin symptoms: Negative except as documented in HPI. Eye symptoms: no diplopia no blurred vision. ENMT symptoms: Nasal congestion. Respiratory symptoms: Negative except as documented in HPI. Cardiovascular symptoms: no chest pain Gastrointestinal symptoms: Nausea. Neurologic symptoms: Negative except as documented in HPI. Health Status Allergies: . Allergic Reactions (all) Cipro, Augmentin Nonallergic Reactions Silicone Medications: . Prescriptions and Home Medications ethinyl estradiol-norgestimate (Ortho Tri-Cyclen), PO, Daily loratadine (Claritin 10 mg oral tablet), 10 mg, 1 tab(s), PO, Daily, 30 tab(s), PRN butalbital/ASA/caffeine (Fiorinal oral capsule), 2 cap(s), PO, q6hr, 30 cap(s), PRN codeine-guaifenesin (codeine-guaifenesin 10 mg-100 mg/5 ml oral syrup), 5-10 mL, PO, q4hr, 240 mL, PRN benzonatate (benzonatate 100 mg oral capsule), 1-2 cap(s), PO, 3xDay, 60 tab(s) Past Medical/ Family/ Social History Medical history: Medical history. No active or resolved past medical history items have been selected or recorded. Surgical history: Surgical history. Colonoscopy ([id number]) in 2009 at 29 Years. Nasal sinus ([id number]) in 2000 at 20 Years. Comments: 06/10/2010 16:11 - SANDRINE FULLER RN sinus surgeries Tonsillectomy with adenoidectomy ([id number]) in 1994 at 13 Years. Family history: Family history. Liver Mother Comments: 08/16/2010 09:57 - JENNIFER LIN LPN Liver failure Diabetes mellitus Mother Asthma Sister Hypertension Father MEDRANO - Headache Father Problem list: . All Problems Abnormal Pap / 795.00 / Confirmed Migraine headache / 346.90 / Confirmed no known date of onset Sinusitis / 473.9 / Confirmed Physical Examination Vital signs: Vital Signs. 08/21/2010 20:45 CDT Temperature Axillary 36.8 C HI Peripheral Pulse Rate 85 /min Respiratory Rate 16 /min SpO2 100 % Systolic Blood Pressure 127 mmHg Diastolic Blood Pressure 77 mmHg Mean Arterial Pressure 94 mmHg BP Location Left upper General: Alert. mild distress. Skin: Warm. dry. Head: Normocephalic. atraumatic. Neck: Supple Eye: Pupils are equal, round and reactive to light. extraocular movements are intact. Ears, nose, mouth and throat: Tympanic membranes clear. Oral mucosa moist. Cardiovascular: Regular rate and rhythm Respiratory: Lungs are clear to auscultation Musculoskeletal: Normal ROM Neurological: Alert and oriented to person, place, time, and situation. No focal neurological deficit observed. CN II-XII intact. normal coordination observed. Lymphatics: No lymphadenopathy Psychiatric: Cooperative Medical Decision Making Differential Diagnosis:Migraine. Documents reviewed:Emergency department records, prior records. Reexamination/ Reevaluation Re-examination/Re-evaluation:Pain status Improved after injections of COMPAZINE and TORADOL. Impression and Plan Diagnosis Migraine headache (Discharge, Emergency medicine, Medical) Discharge plan Condition: Improved. Dispositioned: To home. Prescriptions: Prescription Policy Change Clerks Supervisor. Pharmacy: Compazine 10 mg oral tablet (Ordered): 1 tab, PO, q6hr, 12 cap(s) Patient was given the following educational materials: HEADACHE, Migraine (Classical). Follow up with: ; Follow up with primary care provider Within As Needed. Counseled: Patient, Family, Regarding treatment plan. Source: [facility] POWERCHART Document Id: {[id number]} Conversion, Historical Provider Ser - 08/21/2010 8:45 PM CDT ED Triage Assessment ED Triage Assessment Entered On: 08/21/2010 20:49 CDT Performed On: 08/21/2010 20:45 CDT by JENNIFER FRANCIS RN Reason For Visit Problems(Active) Abnormal Pap [...] Responsible Provider: SANDRINE FULLER RN; Vocabulary: ICD-9-CM Triage Chief Complaint Description: Raudelarine with Nausea Information Given By: Patient Accompanied By: Mother Mode of Arrival ED: Private vehicle Track: Medical Languages: Swedish Pain Symptoms: Yes Pain Medication Requested: Yes Vital Signs Assessed: Yes JENNIFER FRANCIS RN - 08/21/2010 20:45 CDT Pain Pain Assessment Grid Pain 1 Intensity: 6 JENNIFER FRANCIS RN - 08/21/2010 20:45 CDT Vital Signs Temperature Axillary: 36.8C(Converted to: 98.2DegF) (HI) Peripheral Pulse Rate: 85/min Respiratory Rate: 16/min Systolic Blood Pressure: 127mmHg Diastolic Blood Pressure: 77mmHg NIBP Mean: 94mmHg BP Location: Left upper extremity SpO2: 100% Oxygen Therapy: Room air JENNIFER FRANCIS RN - 08/21/2010 20:45 CDT Allergy Latex Previous Test: No JENNIFER FRANCIS RN - 08/21/2010 20:45 CDT Allergies (Active) Augmentin Estimated Onset Date: [...] CAVANAUGH RN; Reviewed Date: 08/16/2010 11:41 CDT Source: [facility] [employer] Twitter DashboardCHART Document Id: [id number] CDT!27 documented in this encounter Miscellaneous Notes Miscellaneous - Conversion, Historical Provider Ser - 08/21/2010 9:34 PM CDT Adult Pain Assessment Adult Pain Assessment Entered On: 08/21/2010 21:34 CDT Performed On: 08/21/2010 21:34 CDT by JENNIFER FRANCIS RN Pain Pain Assessment Grid Pain 1 Pain 2 Intensity: 6 1 JENNIFER FRANCIS RN - 08/21/2010 21:34 CDT JENNIFER FRANCIS RN - 08/21/2010 21:34 CDT Source: [facility] Document Id: [id number] CDT!7 Miscellaneous - Conversion, Historical Provider Ser - 08/21/2010 9:20 PM CDT Valuables/Belongings Valuables/Belongings Entered On: 08/21/2010 21:20 CDT Performed On: 08/21/2010 21:20 CDT by JENNIFER FRANCIS RN Valuables/Belongings Home Medication Disposition: None brought in with patient JENNIFER FRANCIS RN - 08/21/2010 21:20 CDT Source: [facility] Document Id: [id number] CDT!3 Miscellaneous - Conversion, Historical Provider Ser - 08/21/2010 8:36 PM CDT Facility Charge Ticket Facility Charge Ticket Entered On: 08/21/2010 21:20 CDT Performed On: 08/21/2010 20:36 CDT by JENNIFER FRANCIS RN Facility Charge TVL Level for Facility Charge Ticket: Level 4 Mode of Arrival ED: Private vehicle Lynx Mode of Arrival Interpreted: Standard [facility]x Process Management: None Lynx Order Management: None 30 Minutes Critical Care: No [facility]x Nursing Assessment: Triage and 3-5 nursing assessments Lynx Disposition: Discharge Lynx Total Points with Diagnosis Control: 8 Lynx Visit Level: 96653 Level 4 JENNIFER FRANCIS RN - 08/21/2010 21:20 CDT Source: [facility] Document Id: [id number] CDT!12 documented in this encounter Plan of Treatment Not on filedocumented as of this encounter Visit Diagnoses Not on filedocumented in this encounter
--- OUTSIDE RECORDS SUMMARY | 2022-03-16 15:10 | XMS_ITS | Encounter Summary ---
:1980 Author Organization [facility] Address [address] [place] [address] Care Team Providers Name Role Phone Unavailable Primary Care Provider Unavailable Encounter Details Date Type Department Care Team Description 04/26/2010 Hospital Encounter HX [facility] John Lewis, INPT/OBSRV M.DLashawn [address] [phone] (Wo rk) Social History Tobacco [...]
--- OUTSIDE RECORDS SUMMARY | 2022-03-16 15:10 | XMS_ITS | Encounter Summary ---
:1980 Author Organization [facility] Address [address] [place] [address] Care Team Providers Name Role Phone Unavailable Primary Care Provider Unavailable Encounter Details Date Type Department Care Team Description 11/30/2010 Hospital Encounter [facility] [...] Progress Notes Andrew Vera D.N.P., C.N.P. - 11/30/2010 12:00 AM CDT [id number] CHIEF COMPLAINT/REASON FOR VISIT History migraine headaches. HISTORY OF PRESENT ILLNESS The patient is a 30-year-old female that presents to the clinic today after I had recently started her on Topamax as she has been on this medication before for her migraine treatments. Her last creatinine was 0.7 on 10/26/2010, in which she was started on 25 mg of Topamax to take one tablet by mouth every evening to increase after one week up to 50 mg. The patient reports that she is tolerating the medication well but does report that on one episode she did have to come into the Emergency Room on 11/05/2010 secondary to a migraine. She reports that actually given the fact that she has only had one migraine in the last month, she has been tolerating the medication quite well. She otherwise denies having any other further concerns or complaints at this time. PAST MEDICAL/SURGICAL HISTORY Reviewed. Please see chart. CURRENT MEDICATIONS Reviewed. Please see chart. ALLERGIES Reviewed. Please see chart. PHYSICAL EXAM GENERAL: Patient is an alert, well-nourished, 30-year-old female that appears to be in no acute distress. HEAD: Normocephalic, atraumatic. Remainder of physical examination deferred at this time. IMPRESSION/REPORT/PLAN History of migraine headaches. PLAN: Discussed the findings at length with the patient. I did reinstate her prescription for Topamax 50 mg tabs in which she is to take one tablet by mouth daily a quantity of 180 tablets with three refills were authorized. We will plan on rechecking the patient's creatinine in six months duration so we can continue monitoring this. I also indicated to the patient if she has any other issues with this medication follow-up would be warranted. The patient stated she understands this plan as she denied having any other further concerns or complaints. The patient ambulated out of the clinic in no acute distress. PATIENT EDUCATION: Ready to learn No apparent learning barriers were identified Learning preferences include listening Explained diagnosis and treatment plan Patient/Child/Caregiver expressed understanding of the content Andrew Vera D.N.P., Jez.Samy. /andre Electronically Signed By: ANDREW VERA DNP, FNP On: 12/06/2010 07:56 AM Source[facility] Document Id: [id number] documented in this encounter Miscellaneous Notes Miscellaneous - Andrew eVra D.N.P., C.N.P. - 11/30/2010 7:12 PM CDT Ambulatory Patient Summary [address] [address] Visit Information Name: CARTER MENSAH Current Date: 11/30/2010 19:12:44 Primary Care Provider: ANDREW VERA DNP, FNP [...] Instructions/Comments topiramate (Topamax 50 mg oral tablet) 50 mg Oral once a day estradiol (Climara 0.0375 mg/24 hours weekly transdermal [...] Lipid Panel every 5 years Age 20-75 11/30/2010 Checks blood for good (HDL) and bad (LDL) cholesterol. Know your numbers, they are one indicator of your risk for heart attack and stroke. Vaccine: Tetanus every 10 years 06/13/2003 06/10/2013 Immunization to help prevent you from getting the serious disease Tetanus (Lockjaw). Your Upcoming Appointments Date Time Location Reason Provider No Appointments found Your Goals/Additional instructions: Source: [facility] POWERCHART Document Id: [id number] Miscellaneous - Andrew Vera D.N.P., C.N.P. - 11/30/2010 7:12 PM CDT Ambulatory Depart Summary [address] [address] Visit Information Name: RODRICKCARTERE Current Date: 11/30/2010 19:12:44 Primary Care Provider: ANDREW VERA [facility] [employer]ER RODRICK CARTER BUSH has been given the following list of medications: Your Medications It is important to take your medications as directed. Use a pill box or chart to help remind you to take your medications. Please let your doctor or nurse know if you have problems taking your medications. Medication/Strength Dose Route Frequency Indications/Special Instructions/Comments topiramate (Topamax 50 mg oral tablet) 50 mg Oral once a day estradiol (Climara 0.0375 mg/24 hours weekly transdermal [...] to the patient and/or family, guardian/caregiver. Source: [facility] POWERCHART Document Id: [id number] Miscellaneous - Conversion, Historical Provider Ser - 11/30/2010 6:33 PM CDT Adult Shake Cutter Intake/History Adult Shake Cutter Intake/History Entered On: 11/30/2010 18:35 CDT Performed On: 11/30/2010 18:33 CDT by JARAD NG LPN Intake Chief Complaint: refill topamax currently on control patch but wants to ask about depo-provera Temperature Oral: 36.2C(Converted to: 97.2DegF) Peripheral Pulse Rate: 84/min Respiratory Rate: 16/min Systolic Blood Pressure: 96mmHg Diastolic Blood Pressure: 64mmHg NIBP Mean: 75mmHg Actual Weight: 84.100kg(Converted to: 185lb 7oz) Dosing Weight Clinic: 84.10kg JARAD NG LPN - 11/30/2010 18:33 CDT Subjective Pain Symptoms: No JARAD NG LPN - 11/30/2010 18:33 CDT Dependent Habits Tobacco Use/Currently Using: Yes Exposure to Tobacco Smoke: Patient smokes JARAD NG LPN - 11/30/2010 18:33 CDT Tobacco Use Grid Type: Cigarettes Cigarette Use Packs/Day: 1.0 JARAD NG LPN - 11/30/2010 18:33 CDT Caffeine Use Grid Caffeine Use: Current Type: Soft drinks Frequency: Daily JARAD NG LPN - 11/30/2010 18:33 CDT Allergy Allergies (Active) Augmentin Estimated Onset [...] FRANCIS RN; Reviewed Date: 10/26/2010 9:27 CDT Source: [facility] [employer]a Document Id: [id number] CDT!25 documented in this encounter Plan of Treatment Not on filedocumented as of this encounter Visit Diagnoses Not on filedocumented in this encounter
--- OUTSIDE RECORDS SUMMARY | 2022-03-16 15:11 | XMS_ITS | Encounter Summary ---
:1980 Author Organization [facility] Address [address] [place] [address] Care Team Providers Name Role Phone Unavailable Primary Care Provider Unavailable Encounter Details Date Type Department Care Team Description 12/01/2009 Hospital Encounter [facility] INPT/OBSRV Tiffany Lei Jr., M.D. [address] [place] [phone] (Wo rk) Social History Tobacco Use Types [...]
--- OUTSIDE RECORDS SUMMARY | 2022-03-16 15:11 | XMS_ITS | Encounter Summary ---
:1980 Author Organization [facility] Address [address] [place] [address] Care Team Providers Name Role Phone Unavailable Primary Care Provider Unavailable Encounter Details Date Type Department Care Team Description 08/18/2009 Hospital Encounter HX [facility] INPT/OBSRV Forrest Cerda M.D. [address] [place] [address] (Wo rk) Social History Tobacco Use Types [...]
--- OUTSIDE RECORDS SUMMARY | 2022-03-16 15:11 | XMS_ITS | Encounter Summary ---
:1980 Author Organization [facility] Address [address] [place] [address] Care Team Providers Name Role Phone Unavailable Primary Care Provider Unavailable Encounter Details Date Type Department Care Team Description 09/28/2009 Hospital Encounter HX [facility] Provider, Histor ical Social History Tobacco Use Types Packs/Day Years [...] Progress Notes Conversion, Historical Provider Ser - 09/28/2009 3:00 PM CDT [id number] Cc: Lesion on vaginal area HPI: 29 year old female c/o sore that she noticed in her vaginal area a couple of days ago. It is tender to the touch. No draining anything. She has never had anything like this before. She does shave in the genital area. No fevers/chills. 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 She also is using OCPs for contraception. She is taking topamax as well. She has been on the pills for [id number] VS 0 [facility] Document Id: [id number] documented in this encounter Miscellaneous Notes Miscellaneous - Conversion, Historical Provider Ser - 09/28/2009 3:00 PM CDT [id number] Dulce Lei [address] [place] [phone] [facility] September 28, 2009 Dear Ms. Lei: I am writing to inform you the results of the laboratory tests you had done during your recent visitto the clinic. Your test was negative. It was a pleasure to see you in the clinic. If you have any further questions or problems, please contact our office at [phone]. Sincerely, Sandhya Chamberlain MD Dept. TRANSPORTATION ASSOCIATE [facility] Source: [facility] Document Id: [id number] documented in this encounter Plan of Treatment Not on filedocumented as of this encounter Visit Diagnoses Not on filedocumented in this encounter
--- OUTSIDE RECORDS SUMMARY | 2022-03-16 15:11 | XMS_ITS | Encounter Summary ---
:1980 Author Organization [facility] Address [address] [place] [address] Care Team Providers Name Role Phone Unavailable Primary Care Provider Unavailable Encounter Details Date Type Department Care Team Description 12/04/2009 Hospital Encounter [facility] INPT/OBSRV Kristen Raya L, LO, C.N.P., D.N.P. [address] [place] [phone] (Wo rk) Social History Tobacco [...]
--- OUTSIDE RECORDS SUMMARY | 2022-03-16 15:11 | XMS_ITS | Encounter Summary ---
:1980 Author Organization [facility] Address [address] [place] [address] Care Team Providers Name Role Phone Unavailable Primary Care Provider Unavailable Encounter Details Date Type Department Care Team Description 10/21/2009 [facility] Encounter [facility] Guy Duncan am, M.D. [address] [place] [address] [phone] (Wo rk) Social History Tobacco Use Types [...]
--- OUTSIDE RECORDS SUMMARY | 2022-03-16 15:11 | XMS_ITS | Encounter Summary ---
:1980 Author Organization [facility] Address [address] [place] [address] Care Team Providers Name Role Phone Unavailable Primary Care Provider Unavailable Encounter Details Date Type Department Care Team Description 10/28/2009 Hospital Encounter HX NO MAPPING Markus Duncan M.D. [address] [place] [address] [phone] (Wo rk) Social History Tobacco [...]
--- OUTSIDE RECORDS SUMMARY | 2022-03-16 15:11 | XMS_ITS | Encounter Summary ---
:1980 Author Organization [facility] Address [address] [place] [address] Care Team Providers Name Role Phone Unavailable Primary Care Provider Unavailable Encounter Details Date Type Department Care Team Description 12/01/2009 Hospital Encounter [facility]X [facility] INPT/OBSRV Tiffany Lei Jr., M.D. [address] [place] [address] 5 [phone] (Wo rk) Social History Tobacco [...]
--- OUTSIDE RECORDS SUMMARY | 2022-03-16 15:11 | XMS_ITS | Encounter Summary ---
:1980 Author Organization [facility] Address [address] [place] [address] Care Team Providers Name Role Phone Unavailable Primary Care Provider Unavailable Encounter Details Date Type Department Care Team Description 06/08/2009 Hospital Encounter [facility] INPT/OBSRV Kristen Raya L, LO, C.N.P., D.N.P. [address] [place] [address] (Wo rk) Social History Tobacco [...] More than 4 times per year 11/09/2020 sikhism services? Do you belong to any clubs [...]
--- OUTSIDE RECORDS SUMMARY | 2022-03-16 15:11 | XMS_ITS | Encounter Summary ---
:1980 Author Organization [facility] Address [address] [place] [address] Care Team Providers Name Role Phone Unavailable Primary Care Provider Unavailable Encounter Details Date Type Department Care Team Description 04/13/2009 Hospital Encounter [facility] IN[facility]OBS[facility] Guy Duncan am, M.D. [address] [place] [address] [phone] (Wo rk) Social History Tobacco [...]
--- OUTSIDE RECORDS SUMMARY | 2022-03-16 15:11 | XMS_ITS | Encounter Summary ---
:1980 Author Organization [facility] Address [address] [place] [address] Care Team Providers Name Role Phone Unavailable Primary Care Provider Unavailable Encounter Details Date Type Department Care Team Description 01/16/2010 Hospital Encounter [facility] Provider, Historical INPT/OBSRV Social History Tobacco Use Types Packs/Day Years [...]
--- OUTSIDE RECORDS SUMMARY | 2022-03-16 15:11 | XMS_ITS | Encounter Summary ---
:1980 Author Organization [facility] Address [address] [place] [address] Care Team Providers Name Role Phone Unavailable Primary Care Provider Unavailable Encounter Details Date Type Department Care Team Description 12/16/2009 Hospital Encounter HX NO MAPPING Markus Duncan M.D. [address] [place] [address] [phone] (Wo rk) Social History Tobacco [...]
--- OUTSIDE RECORDS SUMMARY | 2022-03-16 15:11 | XMS_ITS | Encounter Summary ---
:1980 Author Organization [facility] Address [address] [place] [address] Care Team Providers Name Role Phone Unavailable Primary Care Provider Unavailable Encounter Details Date Type Department Care Team Description 09/28/2009 Hospital Encounter [facility] Alma Delia Rios, RLashawnN. Social History Tobacco Use Types Packs/Day Years [...] this encounter Miscellaneous Notes Telephone Encounter - Alma Delia Carrion R.N. - 09/28/2009 12:00 AM CDT [id number] TELEPHONE TRIAGE ENCOUNTER FORM Date: 09/28/2009 PCP: None Chetna Patient Name: Dulce Lei Gender: female : 1980 Age: [age] year old Time: 12:50 PM Phone Numbers: [phone] (home) [phone] (work) Pharmacy: [facility] Presenting Problem: lesion on vaginal opening Subjective/objective: Patient reports that she has found a painful dime size hard lump on vaginal opening. Patient would like to be seen today due to she is concerned due to 5 months ago she had abnormal pap smear with cancer cells found. Onset: sudden Duration: 3 days Associated Sx: No fever noted. denies other problems Problem list reviewed: YES Recent History: N/A or not addressed. Recent Illness: No Allergies verified: YES Precipitated by: Unknown origin Med list reviewed: YES Alleviated by: N/A Immunosuppressed:NO Conclusion / Primary Problem: Lump on vaginal opening Protocol(s) Consulted: Telephone Triage Protocols for Nurses. Lupillo, 2001 - 2007 pages 249-251 PLAN / INTERVENTION Disposition: Referred to clinic - to be seen today Caller verbalizes understanding of disposition? YES Caller agrees to plan? Yes: Transferred to lvn EVALUATION / FOLLOW-UP Source: [facility] RWHXTRANSXRTFSYS Document Id: [id number] Electronically signed by Conversion, [facility] Receptionist [id number] at 09/18/2016 10:44 AM CDT documented in this encounter Plan of Treatment Not on filedocumented as of this encounter Visit Diagnoses Not on filedocumented in this encounter
--- OUTSIDE RECORDS SUMMARY | 2022-03-16 15:11 | XMS_ITS | Encounter Summary ---
:1980 Author Organization [facility] Address [address] [place] [address] Care Team Providers Name Role Phone Unavailable Primary Care Provider Unavailable Encounter Details Date Type Department Care Team Description 11/30/2009 Hospital Encounter [facility] INPT/OBSRV Kristen Raya L, LO, C.N.P., D.N.P. [address] [place] [address] (Wo rk) Social History Tobacco [...]
--- OUTSIDE RECORDS SUMMARY | 2022-03-16 15:11 | XMS_ITS | Encounter Summary ---
:1980 Author Organization [facility] Address [address] [place] [address] Care Team Providers Name Role Phone Unavailable Primary Care Provider Unavailable Encounter Details Date Type Department Care Team Description 08/24/2009 Hospital Encounter [facility] INPT/OBSRV Pita Lyon M.D. [address] [place] [phone] (Wo rk) Social History Tobacco [...]
--- OUTSIDE RECORDS SUMMARY | 2022-03-16 15:11 | XMS_ITS | Encounter Summary ---
:1980 Author Organization [facility] Address [address] [place] [address] Care Team Providers Name Role Phone Unavailable Primary Care Provider Unavailable Encounter Details Date Type Department Care Team Description 12/14/2009 Hospital Encounter [facility] INPT/OBSRV Isacc Lei PLeeroy., P.A. [address] [place] [address] (Wo rk) Social History Tobacco [...]
--- OUTSIDE RECORDS SUMMARY | 2022-03-16 15:11 | XMS_ITS | Encounter Summary ---
:1980 Author Organization [facility] Address [address] [place] [address] Care Team Providers Name Role Phone Unavailable Primary Care Provider Unavailable Encounter Details Date Type Department Care Team Description 04/13/2009 Hospital Encounter HX NO MAPPING Markus Duncan M.D. [address] [place] [phone] (Wo rk) Social History Tobacco [...]
--- OUTSIDE RECORDS SUMMARY | 2022-03-16 15:11 | XMS_ITS | Encounter Summary ---
:1980 Author Organization [facility] Address [address] [place] [address] Care Team Providers Name Role Phone Unavailable Primary Care Provider Unavailable Encounter Details Date Type Department Care Team Description 10/13/2009 Hospital Encounter [facility] Jaimie Nielsen R.N. [address] [place], [place] [address] Social History Tobacco Use Types Packs/Day Years [...] this encounter Miscellaneous Notes Telephone Encounter - KelsieJaimie R.N. - 10/13/2009 12:00 AM CDT [id number] TELEPHONE TRIAGE ENCOUNTER FORM Date: 10/13/2009 PCP: None Frmattie Patient Name: Dulce Lei Gender: female : 1980 Age: [age] year old Time: 2:57 PM Phone Numbers: [phone] (home) [phone] (work) Pharmacy: [facility] Presenting Problem: BC questions, low back pain Subjective/objective: patient states she has not had a menses with change in BC from Depo Provera toBCP. She had negative test on 09/28/09. Patient denies missing any medication. She isalso reporting low back pain with discomfort in left leg. (Leg pain is not new, per patient) Patient states pain is achy, no known injury, no change in pain with activity. She denies any frequent or painful urination, or any other symptoms currently. Onset: gradual Duration: 1 week (back pain). Associated Sx: No fever noted. As noted above. Problem list reviewed: YES Recent History: Yes - What was it?: OSCAR 09/28/09, amenorrhea. Recent Illness: no Allergies verified:YES Precipitated by: Unknown origin Med list reviewed: YES Alleviated by: patient states she has used Ibuprofen two twice daily. Immunosuppressed:NO Conclusion / Primary Problem: Irregular menses, back pain Protocol(s) Consulted: Pediatric TelephoneProtocols. Rene, 2007 - third edition: Back pain pgs. 47- 49, secondary amenorrhea PLAN / INTERVENTION Disposition: Home care treatment: [facility], Clinic appt 24 hours for back pain Caller verbalizes understanding of disposition? YES Caller agrees to plan? No: patient states she will call back if not improving for appt. EVALUATION / FOLLOW-UP As noted above. Call if symptoms worsen or do not improve. [facility] Document Id: [id number] documented in this encounter Plan of Treatment Not on filedocumented as of this encounter Visit Diagnoses Not on filedocumented in this encounter
--- OUTSIDE RECORDS SUMMARY | 2022-03-16 15:11 | XMS_ITS | Encounter Summary ---
:1980 Author Organization [facility] Address [address] [place] [address] Care Team Providers Name Role Phone Unavailable Primary Care Provider Unavailable Encounter Details Date Type Department Care Team Description 12/09/2009 Hospital Encounter HX [facility] INPT/OBSRV Guy Duncan am, M.D. [address] [place] [phone] (Wo rk) Social History Tobacco [...]
--- OUTSIDE RECORDS SUMMARY | 2022-03-16 15:11 | XMS_ITS | Encounter Summary ---
:1980 Author Organization [facility] Address [address] [place] [address] Care Team Providers Name Role Phone Unavailable Primary Care Provider Unavailable Encounter Details Date Type Department Care Team Description 04/17/2009 Hospital Encounter [facility] [place] [address] Social History Tobacco Use Types Packs/Day Years [...]
--- OUTSIDE RECORDS SUMMARY | 2022-03-16 15:11 | XMS_ITS | Encounter Summary ---
:1980 Author Organization [facility] Address [address] [place] [address] Care Team Providers Name Role Phone Unavailable Primary Care Provider Unavailable Encounter Details Date Type Department Care Team Description 01/06/[address] [facility] Guy Duncan am, M.D. [address] [place] [phone] (Wo rk) Social History Tobacco [...]
--- OUTSIDE RECORDS SUMMARY | 2022-03-16 15:11 | XMS_ITS | Encounter Summary ---
:1980 Author Organization [facility] Address [address] [place] [address] Care Team Providers Name Role Phone Unavailable Primary Care Provider Unavailable Encounter Details Date Type Department Care Team Description 11/03/2009 Hospital Encounter HX [facility] INPT/OBSRV Bimal Thomas M.D. [address], [place], [place] [address] (Wo rk) Social History Tobacco Use Types [...]
--- OUTSIDE RECORDS SUMMARY | 2022-03-16 15:11 | XMS_ITS | Encounter Summary ---
:1980 Author Organization [facility] Address [address] [place] [address] Care Team Providers Name Role Phone Unavailable Primary Care Provider Unavailable Encounter Details Date Type Department Care Team Description 08/18/2009 Hospital Encounter HX [facility] INPT/OBS[facility] Forrest Cerda M.D. [address] [place] [address] (Wo rk) Social History Tobacco Use Types [...]
--- OUTSIDE RECORDS SUMMARY | 2022-03-16 15:11 | XMS_ITS | Encounter Summary ---
:1980 Author Organization [facility] Address [address] [place] [address] Care Team Providers Name Role Phone Unavailable Primary Care Provider Unavailable Encounter Details Date Type Department Care Team Description 01/06/2010 Hospital Encounter HX NO MAPPING Markus Duncan M.D. [address] [place] [phone] (Wo rk) Social History Tobacco [...]
--- OUTSIDE RECORDS SUMMARY | 2022-03-16 15:11 | XMS_ITS | Encounter Summary ---
:1980 Author Organization [facility] Address [address] [place] [address] Care Team Providers Name Role Phone Unavailable Primary Care Provider Unavailable Encounter Details Date Type Department Care Team Description 07/28/2009 Hospital Encounter [facility]X [facility] John Lewis, INPT/OBSRV M.DLashawn [address] [address] (Wo rk) Social History Tobacco [...]
--- OUTSIDE RECORDS SUMMARY | 2022-03-16 15:11 | XMS_ITS | Encounter Summary ---
:1980 Author Organization [facility] Address [address] [place] [address] Care Team Providers Name Role Phone Unavailable Primary Care Provider Unavailable Encounter Details Date Type Department Care Team Description 12/16/2009 Hospital Encounter [facility] INPT[facility]BSRV Guy Duncan am, M.D. [address] [place] [address] [phone] (Wo rk) Social History Tobacco [...]
--- OUTSIDE RECORDS SUMMARY | 2022-03-16 15:11 | XMS_ITS | Encounter Summary ---
:1980 Author Organization [facility] Address [address] [place] [address] Care Team Providers Name Role Phone Unavailable Primary Care Provider Unavailable Encounter Details Date Type Department Care Team Description 10/21/2009 Hospital Encounter HX NO MAPPING Markus Duncan M.D. [address] [place] [phone] (Wo rk) Social History Tobacco [...] More than 4 times per year 11/09/2020 tenriism services? Do you belong to any clubs [...]
--- OUTSIDE RECORDS SUMMARY | 2022-03-16 15:11 | XMS_ITS | Encounter Summary ---
:1980 Author Organization [facility] Address [address] [place] [address] Care Team Providers Name Role Phone Unavailable Primary Care Provider Unavailable Encounter Details Date Type Department Care Team Description 06/27/2009 Hospital Encounter [facility] INPT/OBSRV Forrest Cerda M.D. [address] [place] [address] (Wo rk) Social History Tobacco Use Types [...]
--- OUTSIDE RECORDS SUMMARY | 2022-03-16 15:11 | XMS_ITS | Encounter Summary ---
:1980 Author Organization [facility] Address [address] [place] [address] Care Team Providers Name Role Phone Unavailable Primary Care Provider Unavailable Encounter Details Date Type Department Care Team Description 12/02/2009 Hospital Encounter [facility] INPT/OBSRV Kristen Raya L, LO, C.N.P., D.N.P. [address] [place] [address] (Wo rk) Social History Tobacco [...]
--- OUTSIDE RECORDS SUMMARY | 2022-03-16 15:11 | XMS_ITS | Encounter Summary ---
:1980 Author Organization [facility] Address [address] [place] [address] Care Team Providers Name Role Phone Unavailable Primary Care Provider Unavailable Encounter Details Date Type Department Care Team Description 11/11/[address] [facility] CAM INPT/OBSRV Isacc Lei PLeeroy., P.A. [address] [place] [address] (Wo rk) Social History Tobacco [...]
--- OUTSIDE RECORDS SUMMARY | 2022-03-16 15:11 | XMS_ITS | Encounter Summary ---
:1980 Author [address] [facility] Address [address] [place] [address] Care Team Providers Name Role Phone Unavailable Primary Care Provider Unavailable Encounter Details Date Type Department Care Team Description 09/28/2009 Hospital Encounter [facility] Jaimie Nielsen R.N. [address] [place], [place] [address] Social History Tobacco Use [...] encounter Miscellaneous Notes Telephone Encounter - Jaimie Iglesias R.N. - 09/28/2009 12:00 AM CDT [id number] Situation/What is the patients concern/need: Patient inquiring about urine Qualitative HCG Clinical Background/Recent Intervention: OSCAR 09/28/09 Recommendation/Patient Request: Informed patient of negative test. Best number(s) to reach patient: NA Source: [facility] RWMCHXTRANSXRTFSYS Document Id: [id number] documented in this encounter Plan of Treatment Not on filedocumented as of this encounter Visit Diagnoses Not on filedocumented in this encounter
--- OUTSIDE RECORDS SUMMARY | 2022-03-16 15:11 | XMS_ITS | Encounter Summary ---
:1980 Author Organization [facility] Address [address] [place] [address] Care Team Providers Name Role Phone Unavailable Primary Care Provider Unavailable Encounter Details Date Type Department Care Team Description 12/22/2009 Hospital Encounter [facility] INPT/OBSRV Isacc Lei PLeeroy., P.A. [address] [place] [address] (Wo rk) Social History Tobacco [...]
--- OUTSIDE RECORDS SUMMARY | 2022-03-16 15:11 | XMS_ITS | Encounter Summary ---
:1980 Author Organization [facility] Address [address] [place] [address] Care Team Providers Name Role Phone Unavailable Primary Care Provider Unavailable Encounter Details Date Type Department Care Team Description 12/09/2009 Hospital Encounter HX NO MAPPING Markus Duncan M.D. [address] [place] [phone] (Wo rk) Social History Tobacco [...]
--- OUTSIDE RECORDS SUMMARY | 2022-03-16 15:11 | XMS_ITS | Encounter Summary ---
:1980 Author Organization [facility] Address [address] [place] [address] Care Team Providers Name Role Phone Unavailable Primary Care Provider Unavailable Encounter Details Date Type Department Care Team Description 12/09/2009 Hospital Encounter [facility] INPT[facility]OBSRV Kristen Raya L, LO, C.N.P., D.N.P. [address] [place] [address] (Wo rk) Social History Tobacco [...]
--- OUTSIDE RECORDS SUMMARY | 2022-03-16 15:11 | XMS_ITS | Encounter Summary ---
:1980 Author Organization [facility] Address [address] [place] [address] Care Team Providers Name Role Phone Unavailable Primary Care Provider Unavailable Encounter Details Date Type Department Care Team Description 01/16/2010 Hospital Encounter [facility]X [facility] Provider, Historical INPT/OBSRV Social History Tobacco [...]
--- OUTSIDE RECORDS SUMMARY | 2022-03-16 15:11 | XMS_ITS | Encounter Summary ---
:1980 Author Organization [facility] Address [address] [place] [address] Care Team Providers Name Role Phone Unavailable Primary Care Provider Unavailable Encounter Details Date Type Department Care Team Description 11/03/2009 Hospital Encounter HX [facility] INPT/OBSRV Bimal Thomas M.D. [address], [place], [place] [address] (Wo rk) Social History [...]
--- OUTSIDE RECORDS SUMMARY | 2022-03-16 15:11 | XMS_ITS | Encounter Summary ---
:1980 Author Organization [facility] Address [address] [place] [address] Care Team Providers Name Role Phone Unavailable Primary Care Provider Unavailable Encounter Details Date Type Department Care Team Description 04/17/2009 Hospital Encounter [facility] INPT[facility]BS[facility] [place] [address] Social History Tobacco Use Types Packs/Day Years [...]
--- OUTSIDE RECORDS SUMMARY | 2022-03-16 15:11 | XMS_ITS | Encounter Summary ---
:1980 Author Organization [facility] Address [address] [place] [address] Care Team Providers Name Role Phone Unavailable Primary Care Provider Unavailable Encounter Details Date Type Department Care Team Description 07/14/[address] [facility]BS[facility] Kristen Raya L, LO, C.N.P., D.N.P. [address] [place] [address] (Wo rk) Social History Tobacco [...]
--- OUTSIDE RECORDS SUMMARY | 2022-03-16 15:11 | XMS_ITS | Encounter Summary ---
:1980 Author Organization [facility] Address [address] [place] [address] Care Team Providers Name Role Phone Unavailable Primary Care Provider Unavailable Encounter Details Date Type Department Care Team Description 10/28/2009 Hospital Encounter HX [facility] CAM INPT/OBSRV Guy Duncan am, M.D. [address] [place] [phone] (Wo rk) Social History Tobacco [...]
--- OUTSIDE RECORDS SUMMARY | 2022-03-16 15:12 | XMS_ITS | Encounter Summary ---
:1980 Author Organization [facility] Address [address] [place] [address] Care Team Providers Name Role Phone Unavailable Primary Care Provider Unavailable Encounter Details Date Type Department Care Team Description 06/18/2008 Hospital Encounter HX [facility] INPT/OBSRV Theo Ward M.D. [address] [place], [place] [address] [place] [phone] (Wo rk) Social History Tobacco Use Types [...]
--- OUTSIDE RECORDS SUMMARY | 2022-03-16 15:12 | XMS_ITS | Encounter Summary ---
:1980 Author Organization [facility] Address [address] [place] [address] Care Team Providers Name Role Phone Unavailable Primary Care Provider Unavailable Encounter Details Date Type Department Care Team Description 05/06/2008 Hospital Encounter [facility] INPT/OBSRV Suchomel-Eliza Munguia M.D. [address] [place], [place] [address] (Wo rk) Social History Tobacco Use Types [...]
--- OUTSIDE RECORDS SUMMARY | 2022-03-16 15:12 | XMS_ITS | Encounter Summary ---
:1980 Author Organization [facility] Address [address] [place] [address] Care Team Providers Name Role Phone Unavailable Primary Care Provider Unavailable Encounter Details Date Type Department Care Team Description 02/21/2009 Hospital En[facility] INPT/OBSRV Anselmo Ayon M.D. [address] [place] [address] [place], [place] [address] (Wo rk) Social History Tobacco Use Types [...]
--- OUTSIDE RECORDS SUMMARY | 2022-03-16 15:12 | XMS_ITS | Encounter Summary ---
:1980 Author Organization [facility] Address [address] [place] [address] Care Team Providers Name Role Phone Unavailable Primary Care Provider Unavailable Encounter Details Date Type Department Care Team Description 06/18/2008 Hospital [facility] Theo Ward M.D. [address] [place], [place] [address] [place] [phone] (Wo rk) Social History Tobacco Use [...]
--- OUTSIDE RECORDS SUMMARY | 2022-03-16 15:12 | XMS_ITS | Encounter Summary ---
:1980 Author Organization [facility] Address [address] [place] [address] Care Team Providers Name Role Phone Unavailable Primary Care Provider Unavailable Encounter Details Date Type Department Care Team Description 11/20/2008 Hospital Encounter HX NO MAPPING Provider, Historical Social History Tobacco Use Types [...] of this encounter Miscellaneous Notes Miscellaneous - Conversion, Historical Provider Ser - 11/20/2008 11:40 AM CDT [id number] [facility] Dulce is a very pleasant 28-year-old woman who presents at the request of Dr. Ward for evaluation of chronic sinusitis and nasal symptoms. She has had two previous sinus surgeries; fairly extensive surgery by Dr. Wall and with subsequent problems had a revision surgery by Dr. Giles. She has really done quite well since that revision surgery up until about two weeks ago. Two weeks ago she noticed she was having a dryness sensation in her nose. She subsequently described this as more in her nostrils but does note some sinus pressure which she points perinasal. It is dull and nagging of mild severity. It seems as though she always has this to some degree and more on the right than the left. This has been typical for her. Some question of a history of polyps but I dont see reference to this in the notes I have available to me today. She does have a history of migraines as well and she is dueto follow up with her neurologist with some medication questions. She has been using some saline aerosol but it seems to dry out her nose more. She tried Flonase and Nasonex but it zurita. Her symptoms are worse with air conditioning. At the end of our visit she notesthat she just moved two week ago with her daughter and she is very pleased with the new spot but shehas been around a lot of dust during that time. She has had some occasional little crusts of dried blood. No john epistaxis. No postnasal drainage, rhinorrhea or nasal obstruction. New patient questionnaire reviewed including 10 system review and past histories: Includes some migraines and asthma. Previous sinus surgery times two, 2000 and 2002. 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 MEDICATIONS: Topamax and OCT. ALLERGIES: Cipro, Augmentin and amitriptyline. OBJECTIVE Vitals: General Appearance: NORMAL Otoscopic: NORMAL Intranasal: Nostrils appear healthy, no crusting or inflammation. The septum is in the midline. There is minimal congestion of the inferior turbinates and some slight mucostasis. The nose is decongested bilaterally. Oral Cavity: NORMAL Oropharynx: NORMAL Nasopharynx: NORMAL Hypopharynx: NORMAL Larynx: NORMAL Neck: NORMAL Cervical Lymph Nodes: NORMAL Thyroid: not palpably enlarged Salivary Glands: NORMAL Voice: NORMAL PROCEDURE: A 2.4 mm flexible nasal endoscopy - both middle turbinates are largely resected. There is an extensive maxillary antrostomy and also ethmoidectomies demonstrating no pathology. The frontal recess is easily visible. Sphenoethmoidal recess is normal. There is no visible pathology. No inflammation, edemaor polyps. NASOPHARYNX: Small amount of benign midline adenoid tissue. Hypopharynx and larynx confirmed normal as well. ASSESSMENT: Nasal dryness, sinus pressure - Reassured no evidence regarding sinusitis. I would not recommend further prescription therapy and I suggested she stop her Flonase and Nasonex for the meantime. She can certainly continue to use this if she requires it for allergy maintenance when her symptoms are improved. She may benefit from saline irrigations or Vaseline in the nostrils. If her symptoms persist I would be happy to see her back as needed. Harshad Franco M.D., [facility] BPC/dac cc: Dr. Ward Source: [facility] RWHXTRANSXRTFSYS Document Id: [id number] documented in this encounter Plan of Treatment Not on filedocumented as of this encounter Visit Diagnoses Not on filedocumented in this encounter
--- OUTSIDE RECORDS SUMMARY | 2022-03-16 15:12 | XMS_ITS | Encounter Summary ---
:1980 Author Organization [facility] Address [address] [place] [address] Care Team Providers Name Role Phone Unavailable Primary Care Provider Unavailable Encounter Details Date Type Department Care Team Description 09/05/2008 Hospital Encounter HX [facility] John Lewis, INPT/OBSRV M.Leslie [address] [phone] (Wo rk) Social History Tobacco [...]
--- OUTSIDE RECORDS SUMMARY | 2022-03-16 15:12 | XMS_ITS | Encounter Summary ---
:1980 Author Organization [facility] Address [address] [place] [address] Care Team Providers Name Role Phone Unavailable Primary Care Provider Unavailable Encounter Details Date Type Department Care Team Description 04/06/2009 Hospital Encounter HX NO MAPPING Markus Duncan M.D. [address] [place] [phone] (Wo rk) Social History Tobacco [...]
--- OUTSIDE RECORDS SUMMARY | 2022-03-16 15:12 | XMS_ITS | Encounter Summary ---
:1980 Author Organization [facility] Address [address] [place] [address] Care Team Providers Name Role Phone Unavailable Primary Care Provider Unavailable Encounter Details Date Type Department Care Team Description 01/15/2008 Hospital Encounter HX [facility] INPT/OBSRV Haley Hansen M.D. Social History Tobacco [...]
--- OUTSIDE RECORDS SUMMARY | 2022-03-16 15:12 | XMS_ITS | Encounter Summary ---
:1980 Author Organization [facility] Address [address] [place] [address] Care Team Providers Name Role Phone Unavailable Primary Care Provider Unavailable Encounter Details Date Type Department Care Team Description 01/01/2009 Hospital Encounter [facility] INPT/OBSRV Forrest Cerda M.D. [address] [place] [address] (Wo rk) Social History Tobacco Use Types [...]
--- OUTSIDE RECORDS SUMMARY | 2022-03-16 15:12 | XMS_ITS | Encounter Summary ---
:1980 Author Organization [facility] Address [address] [place] [address] Care Team Providers Name Role Phone Unavailable Primary Care Provider Unavailable Encounter Details Date Type Department Care Team Description 03/30/2009 Hospital Encounter HX [facility] INPT/OBSRV Guy Duncan am, M.D. [address] [place] [phone] (Wo rk) Social History Tobacco [...]
--- OUTSIDE RECORDS SUMMARY | 2022-03-16 15:12 | XMS_ITS | Encounter Summary ---
:[address] [facility] Address [address] [place] [address] Care Team Providers Name Role Phone Unavailable Primary Care Provider Unavailable Encounter Details Date Type Department Care Team Description 09/02/2008 Hospital Encounter [facility]X [facility] INPT/OBSRV Suchomel-Eliza Munguia M.D. [address] [place], [place] [address] (Wo rk) Social History [...]
--- OUTSIDE RECORDS SUMMARY | 2022-03-16 15:12 | XMS_ITS | Encounter Summary ---
:1980 Author Organization [facility] Address [address] [place] [address] Care Team Providers Name Role Phone Unavailable Primary Care Provider Unavailable Encounter Details Date Type Department Care Team Description 04/06/2009 Hospital Encounter HX [facility] INPT/OBSRV Guy Duncan am, M.D. [address] [place] [phone] (Wo rk) Social History Tobacco [...]
--- OUTSIDE RECORDS SUMMARY | 2022-03-16 15:12 | XMS_ITS | Encounter Summary ---
:1980 Author Organization [facility] Address [address] [place] [address] Care Team Providers Name Role Phone Unavailable Primary Care Provider Unavailable Encounter Details Date Type Department Care Team Description 11/11/2008 Hospital Encounter [facility] INPT/OBSRV Suchomel-Eliza Munguia M.D. [address] [place], [place] [address] (Wo rk) Social History [...]
--- OUTSIDE RECORDS SUMMARY | 2022-03-16 15:12 | XMS_ITS | Encounter Summary ---
:1980 Author Organization [facility] Address [address] [place] [address] Care Team Providers Name Role Phone Unavailable Primary Care Provider Unavailable Encounter Details Date Type Department Care Team Description 03/04/2008 Hospital Encounter HX [facility] Parisa Gracia M.D. [address] [place], [place] [address] (Wo rk) Social History [...] documented as of this encounter Progress Notes America Cortes M.D. - 03/04/2008 10:30 AM CST [id number] SUBJECTIVE: Patient with pelvic floor myalgia, bladder pain. She voids every 30 min, feels pressure with full bladder, has urgency but only voids a small amount at a time. She voids 3-4 times a night. Not currently sexually active so dyspareunia not a problem. Constipation is better now, eating fiber rich foods. Would like to come in to [facility]. Also complaining of vaginal discharge X 1 month, sometimes smells bad. 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 PROLONG RUP MEMB-ANTEPAR 02/12/06 Hospitalized OTHER CURR COND-ANTEPARTUM POST TERM PREG-DELIVERED,40-42 WKS 05/22/06 Hospitalized LUMBAGO chronic radiculopathy or nerve injury (L) dysesthesia and a cold sensation to her foot OBJECTIVE: PELVIC EXAM: Lymph: no enlarged groin nodes External genitalia: normal development, normal BUS, no lesions Perineum: normal skin, no lesions, good support Urethra meatus: normal , no lesion or caruncle Urethra: normal, nontender Bladder: moderately tender, no masses, not enlarged Vagina:normal mucosa and ruggae, no lesions not atrophic Very tender and tight bilateral pelvic floor mm L>R Cervix:multiparous and no lesions Uterus: smooth, firm, mobile, without irregularities anteverted Adnexa: not palpable RV: not indicated Rectum: no hemorrhoids, no bleeding wet prep: No yeast, rare clue cells, no trich, pH<4.5 ASSESSMENT: 1. 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 Has only seen PT in [place] once since we saw her last (daughter hospitalized twice due to severe asthma) She couldn't tolerate side effects of neurontin (poor sleep, felt too weird) and amitrip (severe constipation) She is using TENS unit but is afraid to increase the settings. She is not currently sexually active so biggest issue is the bladder at this point. 2. Physiologic discharge. PLAN: 1. Cont PT, TENs 2. Trial of desipramine, titrate from 10mg to 30mg at hs. Side effects discussed. 3. To help prevent constipation-try aloe vera juice 4. follow up in [facility] on 03/27. Discussed possible bladder instillations for painful bladder 5. Patient repeated PUF questionarie-score of 25 (scanned into epic) Source: [facility] RWMCHXTRANSXRTFSYS Document Id: [id number] documented in this encounter Plan of Treatment Not on filedocumented as of this encounter Visit Diagnoses Not on filedocumented in this encounter
--- OUTSIDE RECORDS SUMMARY | 2022-03-16 15:12 | XMS_ITS | Encounter Summary ---
:1980 Author Organization [facility] Address [address] [place] [address] Care Team Providers Name Role Phone Unavailable Primary Care Provider Unavailable Encounter Details Date Type Department Care Team Description 11/19/2008 Hospital Encounter HX [facility] INPT/OBSRV Theo Ward M.D. [address] [facility] [address] Larsen, Moises [address] [place] [phone] (Wo rk) Social History Tobacco Use [...]
--- OUTSIDE RECORDS SUMMARY | 2022-03-16 15:12 | XMS_ITS | Encounter Summary ---
:1980 Author Organization [facility] Address [address] [place] [address] Care Team Providers Name Role Phone Unavailable Primary Care Provider Unavailable Encounter Details Date Type Department Care Team Description 09/05/2008 Hospital Encounter HX [facility] John Lewis, INPT/OBSRV M.Leslie [address] [phone] (Wo rk) Social History Tobacco [...]
--- OUTSIDE RECORDS SUMMARY | 2022-03-16 15:12 | XMS_ITS | Encounter Summary ---
:1980 Author Organization [facility] Address [address] [place] [address] Care Team Providers Name Role Phone Unavailable Primary Care Provider Unavailable Encounter Details Date Type Department Care Team Description 03/17/[address] [facility] INPT/OBSRV Kristen Raya L, LO, C.N.P., D.N.P. [address] [place] [address] (Wo rk) Social History Tobacco [...]
--- OUTSIDE RECORDS SUMMARY | 2022-03-16 15:12 | XMS_ITS | Encounter Summary ---
:1980 Author Organization [facility] Address [address] [place] [address] Care Team Providers Name Role Phone Unavailable Primary Care Provider Unavailable Encounter Details Date Type Department Care Team Description 09/02/2008 Hospital Encounter [facility] INPT/OBSRV Suchomel-Eliza Munguia M.D. [address] [place], [place] [address] (Wo rk) Social History [...]
--- OUTSIDE RECORDS SUMMARY | 2022-03-16 15:12 | XMS_ITS | Encounter Summary ---
:1980 Author Organization [facility] Address [address] [place] [address] Care Team Providers Name Role Phone Unavailable Primary Care Provider Unavailable Encounter Details Date Type Department Care Team Description 06/02/2008 Hospital Encounter [facility]X [facility] INPT/OBSRV Bambi Cason M.D. [address] [place], [place] [address] (Wo rk) Social History [...]
--- OUTSIDE RECORDS SUMMARY | 2022-03-16 15:12 | XMS_ITS | Encounter Summary ---
:[address] [facility] Address [address] [place] [address] Care Team Providers Name Role Phone Unavailable Primary Care Provider Unavailable Encounter Details Date Type Department Care Team Description 02/25/2009 Hospital Encounter HX [facility] INPT/OBSRV Forrest Cerda M.D. [address] [place] [address] (Wo rk) Social History Tobacco Use Types [...]
--- OUTSIDE RECORDS SUMMARY | 2022-03-16 15:12 | XMS_ITS | Encounter Summary ---
:1980 Author Organization [facility] Address [address] [place] [address] Care Team Providers Name Role Phone Unavailable Primary Care Provider Unavailable Encounter Details Date Type Department Care Team Description 02/13/2008 Hospital Encounter [facility]X [facility] OBWiliam Garcia, L.P.N. [address] [facility] [place], [place] [address] Social History Tobacco Use Types Packs/Day Years [...] this encounter Miscellaneous Notes Telephone Encounter - Sanam Yates L.P.N. - 02/13/2008 12:00 AM CDT [id number] [facility] PT called, wanting an order for a TENS unit for Dulce to use at home. She is having improvement with PT for low lumbar pain. CF fax #[phone]. Thank You! Source: [email or web address] Document Id: [id number] Electronically signed by Conversion, [facility] Coach Cleaner [id number] at 09/19/2016 4:09 AM CDT Telephone Encounter - America Cortes M.D. - 02/13/2008 12:00 AM CDT [id number] done Source: [facility]XR3i [facility] Document Id: [id number] Electronically signed by Conversion, [facility] Coach Cleaner [id number] at 09/19/2016 4:09 AM CDT Telephone Encounter - Sanam Yates L.P.N. - 02/13/2008 12:00 AM CDT [id number] Orders are faxed CF PT. KKParvez Source: [facility]EREdaiRANSXR3i Systems Document Id: [id number] Electronically signed by Conversion, [facility] Coach Cleaner [id number] at 09/19/2016 4:09 AM CDT documented in this encounter Plan of Treatment Not on filedocumented as of this encounter Visit Diagnoses Not on filedocumented in this encounter
--- OUTSIDE RECORDS SUMMARY | 2022-03-16 15:12 | XMS_ITS | Encounter Summary ---
:1980 Author Organization [facility] Address [address] [place] [address] Care Team Providers Name Role Phone Unavailable Primary Care Provider Unavailable Encounter Details Date Type Department Care Team Description 12/29/2008 Hospital Encounter HX [facility] John Lewis, INPT/OBSRV M.DLashawn [address] [phone] (Wo rk) Social History Tobacco [...]
--- OUTSIDE RECORDS SUMMARY | 2022-03-16 15:12 | XMS_ITS | Encounter Summary ---
:1980 Author Organization [facility] Address [address] [place] [address] Care Team Providers Name Role Phone Unavailable Primary Care Provider Unavailable Encounter Details Date Type Department Care Team Description 06/07/2008 Hospital Encounter [facility]X [facility] INPT/OBSRV Anselmo Ayon M.D. [address] [place] [address] Dr [place], [place] [address] (Wo rk) Social History Tobacco [...]
--- OUTSIDE RECORDS SUMMARY | 2022-03-16 15:12 | XMS_ITS | Encounter Summary ---
:1980 Author Organization [facility] Address [address] [place] [address] Care Team Providers Name Role Phone Unavailable Primary Care Provider Unavailable Encounter Details Date Type Department Care Team Description 06/07/2008 Hospital Encounter [facility] INPT/OBSRV Anselmo Ayon M.D. [address] [place] [address] Dr [place], [place] [address] (Wo rk) Social History Tobacco [...]
--- OUTSIDE RECORDS SUMMARY | 2022-03-16 15:12 | XMS_ITS | Encounter Summary ---
:1980 Author Organization [facility] Address [address] [place] [address] Care Team Providers Name Role Phone Unavailable Primary Care Provider Unavailable Encounter Details Date Type Department Care Team Description 06/08/2008 Hospital Encounter [facility] INPT/OBSRV Anselmo Ayon M.D. [address] [place] [address] Dr [place], [place] [address] (Wo rk) Social History Tobacco [...] How often do you attend quaker or More than 4 times per year 11/09/2020 islam services? Do you belong to any clubs or No 11/09/2020 organizations such as quaker groups, unions, fraternal [...]
--- OUTSIDE RECORDS SUMMARY | 2022-03-16 15:12 | XMS_ITS | Encounter Summary ---
:1980 Author Organization [facility] Address [address] [place] [address] Care Team Providers Name Role Phone Unavailable Primary Care Provider Unavailable Encounter Details Date Type Department Care Team Description 06/09/2008 Hospital Encounter [facility]X [facility] INPT/OBSRV Bambi Cason M.D. [address] [place], [place] [address] (Wo rk) Social History [...]
--- OUTSIDE RECORDS SUMMARY | 2022-03-16 15:12 | XMS_ITS | Encounter Summary ---
:1980 Author Organization [facility] Address [address] [place] [address] Care Team Providers Name Role Phone Unavailable Primary Care Provider Unavailable Encounter Details Date Type Department Care Team Description 11/29/2007 - Hospital Encounter HX NO MAPPING America Cortes, 03/19/2008 [address] [place] [address] (Wo rk) Social History Tobacco [...]
--- OUTSIDE RECORDS SUMMARY | 2022-03-16 15:12 | XMS_ITS | Encounter Summary ---
:1980 Author Organization [facility] Address [address] [place] [address] Care Team Providers Name Role Phone Unavailable Primary Care Provider Unavailable Encounter Details Date Type Department Care Team Description 04/24/2008 Hospital Encounter [facility]X [facility] INPT/OBSRV Bambi Cason M.D. [address] [place], [place] [address] (Wo rk) Social History [...]
--- OUTSIDE RECORDS SUMMARY | 2022-03-16 15:12 | XMS_ITS | Encounter Summary ---
:1980 Author Organization [facility] Address [address] [place] [address] Care Team Providers Name Role Phone Unavailable Primary Care Provider Unavailable Encounter Details Date Type Department Care Team Description 04/15/2008 Hospital Encounter [facility]X [facility] INPT/OBSRV Forrest Cerda M.D. [address] [place] [address] (Wo rk) Social History Tobacco Use Types [...] How often do you attend spiritism or More than 4 times per year 11/09/2020 gnosticism services? Do you belong to any clubs or No 11/09/2020 organizations such as spiritism groups, unions, fraternal [...]
--- OUTSIDE RECORDS SUMMARY | 2022-03-16 15:12 | XMS_ITS | Encounter Summary ---
:1980 Author Organization [facility] Address [address] [place] [address] Care Team Providers Name Role Phone Unavailable Primary Care Provider Unavailable Encounter Details Date Type Department Care Team Description 01/16/2008 Hospital Encounter HX NO MAPPING Provider, Historical [...]
--- OUTSIDE RECORDS SUMMARY | 2022-03-16 15:12 | XMS_ITS | Encounter Summary ---
:1980 Author Organization [facility] Address [address] [place] [address] Care Team Providers Name Role Phone Unavailable Primary Care Provider Unavailable Encounter Details Date Type Department Care Team Description 03/30/2009 Hospital Encounter HX NO MAPPING Markus Duncan M.D. [address] [place] [phone] (Wo rk) Social History Tobacco [...]
--- OUTSIDE RECORDS SUMMARY | 2022-03-16 15:12 | XMS_ITS | Encounter Summary ---
:[address] [facility] Address [address] [place] [address] Care Team Providers Name Role Phone Unavailable Primary Care Provider Unavailable Encounter Details Date Type Department Care Team Description 01/01/2009 Hospital Encounter [facility] INPT/OBSRV Forrest Cerda M.D. [address] [place] [address] (Wo rk) Social History Tobacco Use Types [...]
--- OUTSIDE RECORDS SUMMARY | 2022-03-16 15:12 | XMS_ITS | Encounter Summary ---
:1980 Author Organization [facility] Address [address] [place] [address] Care Team Providers Name Role Phone Unavailable Primary Care Provider Unavailable Encounter Details Date Type Department Care Team Description 02/27/2009 Hospital En[facility] Isacc Lei PLeeroy., P.A. [address] [place] [address] (Wo rk) Social History Tobacco [...]
--- OUTSIDE RECORDS SUMMARY | 2022-03-16 15:12 | XMS_ITS | Encounter Summary ---
:1980 Author Organization [facility] Address [address] [place] [address] Care Team Providers Name Role Phone Unavailable Primary Care Provider Unavailable Encounter Details Date Type Department Care Team Description 11/19/2008 Hospital Encounter HX [facility] INPT/OBSRV Theo Ward M.D. [address] [facility] [address] Larsen, Moises [address] [place] [address] (Wo rk) Social History Tobacco Use [...]
--- OUTSIDE RECORDS SUMMARY | 2022-03-16 15:12 | XMS_ITS | Encounter Summary ---
:1980 Author Organization [facility] Address [address] [place] [address] Care Team Providers Name Role Phone Unavailable Primary Care Provider Unavailable Encounter Details Date Type Department Care Team Description 02/04/2009 Hospital Encounter [facility] INPT/OBSRV Bambi Cason M.D. [address] [place], [place] [address] (Wo rk) Social History [...]
--- OUTSIDE RECORDS SUMMARY | 2022-03-16 15:12 | XMS_ITS | Encounter Summary ---
:1980 Author Organization [facility] Address [address] [place] [address] Care Team Providers Name Role Phone Unavailable Primary Care Provider Unavailable Encounter Details Date Type Department Care Team Description 02/02/2009 Hospital Encounter [facility] OBDarnell Bansal, R LashawnN. Social History Tobacco Use Types Packs/Day Years [...] this encounter Miscellaneous Notes Telephone Encounter - Darnell Calderon R.N. - 02/02/2009 12:00 AM CDT [id number] Triage/Phone Nurse: 'How many periods have you missed?' ONE. Have you done a home test? YES - Which is this for you? SECOND . Have you had any of the following? - Previous tubal ? - Diabetes or diabetes in that required you to take medication? - High blood pressure or high blood pressure in that required you to take medication? - Any kidney or liver disease? - Any heart problems? - Received treatment for cancer? - Previous blood clots? - Are you taking any medication for depression or anxiety? Patient takes topamax, 50 mg, 1 tab daily at for prevention of migraines. She stopped this med last week when she found out she was . She is concerned about stopping this med due to hx of significant problems with migraines. Advised patient to contniue to not take the topamax and call if migraines return. Routed to [facility] physician jd edwards consultant, Dr. Cortes, for approval of POC. Will call patient back at [phone] Cortes's advice. OK per patient to leave a detailed message on voicemail. * * * NO TO ALL THE ABOVE: 1. LMP 12/22/2008 ALEXANDER 09/28/2009 2. Number of pregnancies: 2 Number of live births 1 3. The initial OB visit is routinely scheduled between 8-10 weeks of . this first visit will be with our Nurse Practitioner. Expected first appt 02/17/2009 to 03/02/2009. 4. The first visit will be an hour appointment that will include obtaining a complete health historyand a physical exam. The physical exam will include a pap smear (if patient has n ot had one in pastyear) and lab work. 5. You will also be obtaining initial information and information regarding what to expectduring your care. 6. You are encouraged to start taking a multivitamin if you are not already taking. vitamins may be obtained over the counter. 7. We would encourage you to abstain from alcohol now that is known. 8. If you smoke, we would also encourage you to stop smoking as well. If you need assistance to quitsmoking, we would be happy to assist you with this. Source: [facility] Document Id: [id number] Electronically signed by Conversion, [facility] Spring Salvage Worker [id number] at 09/18/2016 9:08 PM CDT Telephone Encounter - America Cortes M.D. - 02/02/2009 12:00 AM CDT [id number] Agree, we can see her prn if migraines return. Sometimes they improve with . Thanks. Source: [facility] Document Id: [id number] Electronically signed by Conversion, [facility] Spring Salvage Worker [id number] at 09/18/2016 9:08 PM CDT Telephone Encounter - Darnell Calderon R.N. - 02/02/2009 12:00 AM CDT [id number] Patient informed and voiced understanding. Source: [facility] Document Id: [id number] Electronically signed by Conversion, [facility] Spring Salvage Worker [id number] at 09/18/2016 9:08 PM CDT documented in this encounter Plan of Treatment Not on filedocumented as of this encounter Visit Diagnoses Not on filedocumented in this encounter
--- OUTSIDE RECORDS SUMMARY | 2022-03-16 15:12 | XMS_ITS | Encounter Summary ---
:1980 Author Organization [facility] Address [address] [place] [address] Care Team Providers Name Role Phone Unavailable Primary Care Provider Unavailable Encounter Details Date Type Department Care Team Description 01/18/2008 Hospital Encounter [facility] INPT/OBSRV Haley Hansen M.D. Social History [...] More than 4 times per year 11/09/2020 mandaeism services? Do you belong to any [...]
--- OUTSIDE RECORDS SUMMARY | 2022-03-16 15:12 | XMS_ITS | Encounter Summary ---
:1980 Author Organization [facility] Address [address] [place] [address] Care Team Providers Name Role Phone Unavailable Primary Care Provider Unavailable Encounter Details Date Type Department Care Team Description 03/17/2008 Hospital Encounter HX NO MAPPING Felipe Cortes M.D. [address] [place], [place] [phone] (Wo rk) Social History [...]
--- OUTSIDE RECORDS SUMMARY | 2022-03-16 15:13 | XMS_ITS | Encounter Summary ---
:1980 Author Organization [facility] Address [address] [place] [address] Care Team Providers Name Role Phone Unavailable Primary Care Provider Unavailable Encounter Details Date Type Department Care Team Description 10/01/2007 Hospital Encounter [facility] INPT/OBSRV Haley Hansen M.D. Social History [...]
--- OUTSIDE RECORDS SUMMARY | 2022-03-16 15:13 | XMS_ITS | Encounter Summary ---
:1980 Author Organization [facility] Address [address] [place] [address] Care Team Providers Name Role Phone Unavailable Primary Care Provider Unavailable Encounter Details Date Type Department Care Team Description 12/18/2007 Hospital Encounter [facility] Parisa Gracia M.D. [address] [place], [place] [phone] (Wo rk) Social History [...] Telephone Encounter - Darnell Calderon R.N. - 12/18/2007 12:00 AM CDT [id number] TELEPHONE TRIAGE ENCOUNTER FORM Date: 12/18/2007 PCP: None [place] Patient Name: Dulce Lei Gender: female : 1980 Age: [age] yearold Time: 11:41 AM Phone Numbers: [phone] (home) Pharmacy: [facility] [place] ASSESSMENT Presenting Problem: Constipation Subjective/objective: Pt reports that she has a hx of problems from an epidural and she has not had a normal BM since last . She reports her BM's have been like rabbit terds. Onset: gradual Duration: 5 days Associated Sx: No fever noted and pt reports bloating and discomfort.. N/A or not addressed and denies other problems Problem list reviewed: YES Recent History: Yes - What was it?: Lumbar radiculopathy on left-likely causing pelvic floor myalgia, vestibulitis and now bladder symptoms. Recent Illness: No Allergies verified: YES Precipitated by: No Med list reviewed: YES Alleviated by: N/A Immunosuppressed:NO Conclusion / Primary Problem: Constipation Protocol(s) Consulted: Telephone Triage Protocols for Nurses. Lupillo, 2002 - 143-145 PLAN / INTERVENTION Disposition: Home Care advice per protocol Caller verbalizes understanding of disposition? YES Caller agrees to plan? Yes EVALUATION / FOLLOW-UP Pt instructed to increase fluids and may try OTC laxatives, such as, MOM and/or glycerin suppositories. Advised pt to call back if she does not have BM following these measures or sooner if increased discomfort or concerns. This encounter will be routed to Dr. Cortes per pt request due to pt's recent hx of lumbar radiculopathy on left-likely causing pelvic floor myalgia, vestibulitis and now bladder symptoms. Source: [facility] Document Id: [id number] Electronically signed by Conversion, [facility] Engraving Operator [id number] at 09/18/2016 9:47 PM CDT documented in this encounter Plan of Treatment Not on filedocumented as of this encounter Visit Diagnoses Not on filedocumented in this encounter
--- OUTSIDE RECORDS SUMMARY | 2022-03-16 15:13 | XMS_ITS | Encounter Summary ---
:1980 Author Organization [facility] Address [address] [place] [address] Care Team Providers Name Role Phone Unavailable Primary Care Provider Unavailable Encounter Details Date Type Department Care Team Description 08/14/2007 Hospital Encounter [facility] INPT/OBSRV Suchomel-Eliza Munguia M.D. [address] [place], [place] [address] (Wo rk) Social History [...]
--- OUTSIDE RECORDS SUMMARY | 2022-03-16 15:13 | XMS_ITS | Encounter Summary ---
:1980 Author Organization [facility] Address [address] [place] [address] Care Team Providers Name Role Phone Unavailable Primary Care Provider Unavailable Encounter Details Date Type Department Care Team Description 12/23/2007 Hospital Encounter [facility] INPT/OBSRV Forrest Cerda M.D. [address] [place] [address] (Wo rk) Social History Tobacco Use Types [...]
--- OUTSIDE RECORDS SUMMARY | 2022-03-16 15:13 | XMS_ITS | Encounter Summary ---
:1980 Author Organization [facility] Address [address] [place] [address] Care Team Providers Name Role Phone Unavailable Primary Care Provider Unavailable Encounter Details Date Type Department Care Team Description 12/23/2007 Hospital En[facility] INPT[facility]OBSRV Forrest Cerda M.D. [address] [place] [address] (Wo rk) Social History Tobacco Use Types [...]
--- OUTSIDE RECORDS SUMMARY | 2022-03-16 15:13 | XMS_ITS | Encounter Summary ---
:1980 Author Organization [facility] Address [address] [place] [address] Care Team Providers Name Role Phone Unavailable Primary Care Provider Unavailable Encounter Details Date Type Department Care Team Description 08/14/2007 Hospital Encounter [facility] INPT/OBSRV Suchomel-Eliza Munguia M.D. [address] [place], [place] [address] (Wo rk) Social History [...]
--- OUTSIDE RECORDS SUMMARY | 2022-03-16 15:13 | XMS_ITS | Encounter Summary ---
:1980 Author Organization [facility] Address [address] [place] [address] Care Team Providers Name Role Phone Unavailable Primary Care Provider Unavailable Encounter Details Date Type Department Care Team Description 11/01/2007 Hospital Encounter [facility] INPT/OBSRV Isacc Lei PLeeroy., P.A. [address] [place] [address] (Wo rk) Social History Tobacco [...]
--- OUTSIDE RECORDS SUMMARY | 2022-03-16 15:13 | XMS_ITS | Encounter Summary ---
:1980 Author Organization [facility] Address [address] [place] [address] Care Team Providers Name Role Phone Unavailable Primary Care Provider Unavailable Encounter Details Date Type Department Care Team Description 10/09/2007 Hospital Encounter [facility] INPT/OBSRV Haley Hansen M.D. Social History [...]
--- OUTSIDE RECORDS SUMMARY | 2022-03-16 15:13 | XMS_ITS | Encounter Summary ---
:1980 Author Organization [facility] Address [address] [place] [address] Care Team Providers Name Role Phone Unavailable Primary Care Provider Unavailable Encounter Details Date Type Department Care Team Description 10/04/2007 Hospital Encounter HX [facility] INPT/OBSRV Isacc Lei PLeeroy., P.A. [address] [place] [address] (Wo rk) Social History Tobacco [...]
--- OUTSIDE RECORDS SUMMARY | 2022-03-16 15:13 | XMS_ITS | Encounter Summary ---
:1980 Author Organization [facility] Address [address] [place] [address] Care Team Providers Name Role Phone Unavailable Primary Care Provider Unavailable Encounter Details Date Type Department Care Team Description 10/15/2007 Hospital Encounter HX [facility] John Lewis, INPT/OBSRV M.DLashawn [address] [phone] (Wo rk) Social History Tobacco [...]
--- OUTSIDE RECORDS SUMMARY | 2022-03-16 15:13 | XMS_ITS | Encounter Summary ---
:1980 Author Organization [facility] Address [address] [place] [address] Care Team Providers Name Role Phone Unavailable Primary Care Provider Unavailable Encounter Details Date Type Department Care Team Description 10/09/2007 Hospital Encounter [facility] INPT/OBSRV Haley Hansen M.D. Social [...]
--- OUTSIDE RECORDS SUMMARY | 2022-03-16 15:13 | XMS_ITS | Encounter Summary ---
:1980 Author Organization [facility] Address [address] [place] [address] Care Team Providers Name Role Phone Unavailable Primary Care Provider Unavailable Encounter Details Date Type Department Care Team Description 10/24/2007 Hospital Encounter [facility] INPT/OBSRV Isacc Lei PLeeroy., P.A. [address] [place] [address] (Wo rk) Social History Tobacco [...]
--- OUTSIDE RECORDS SUMMARY | 2022-03-16 15:13 | XMS_ITS | Encounter Summary ---
:1980 Author Organization [facility] Address [address] [place] [address] Care Team Providers Name Role Phone Unavailable Primary Care Provider Unavailable Encounter Details Date Type Department Care Team Description 01/07/2008 Hospital Encounter HX NO MAPPING Felipe Cortes M.D. [address] [place], [place] [phone] (Wo rk) Social History [...]
--- OUTSIDE RECORDS SUMMARY | 2022-03-16 15:13 | XMS_ITS | Encounter Summary ---
:1980 Author Organization [facility] Address [address] [place] [address] Care Team Providers Name Role Phone Unavailable Primary Care Provider Unavailable Encounter Details Date Type Department Care Team Description 11/12/2007 Hospital En[facility] Parisa Gracia M.D. [address] [place], [place] [phone] (Wo rk) Social History [...] encounter Progress Notes America Cortes M.D. - 11/12/2007 9:00 AM CDT [id number] Quick Note: Letter sent, TSH normal [facility]: [facility] Document Id: [id number] Electronically signed by Conversion, [facility] Sanding Machine Tender Automatic [id number] at 09/19/2016 2:59 AM CDT America Cortes M.D. 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 She has periods that last 7 days then will spot off and on all month long. Has to wear minipads all month long. She spotted for a few months on orthotricyclen, too. She had been on DMPA X many yrs. Also, still has dyspareunia, saw Monika, was doing excercises faithfully until a couple of months ago. She states that my relationship is basically over due to this and my boyfriend thinks I don't love him. She got constipated on amitriptyline so stopped it. She now has more urgency and frequency (new since last Fall) and has nocturia X 3. 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 OBJECTIVE: tearful EG-very tender left and post vestibule, erthema at post vestibule Vagina-very tender, tight left levators, internus mildy tender Right levator minimally tender Bladder-not tender but is uncomfortable feels like pressure ASSESSMENT: 1. 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 Had been on DMPA X yrs, could be residual effect. rule out thyroid lesions 2. Pelvic floor myalgia, vestibulitis, evolving painful bladder syndrome-gave up last Fall, didn't come back to see either Monika or me. Likely triggered by LLE pain/paresthesias as pain is definitely L>>R. PLAN: 1. Trial of neruontin. Will wean up to 100mg TID,then reeval in a few weeks, side effects discussed. 2. Consult with Monika , then [facility]. Patient given small dilator, will await monika's appt to start using it. 3. Can use lidocaine 2% prior to intercourse 4. Discussed importance of psych support, will discuss possible appt with Su Almanzar at next appt. 5. Discussed chronic nature of this, need to rtn to clinic if a treatment fails, etc. Total encounter time was 30 minutes with 20 minutes of counseling regarding pelvic pain, dyspareunia. Source: [facility] Document Id: [id number] Electronically signed by Conversion, [facility] Sanding Machine Tender Automatic [id number] at 09/19/2016 2:59 AM CDT documented in this encounter Miscellaneous Notes Miscellaneous - America Cortes M.D. - 11/12/2007 9:00 AM CDT [id number] Dulce Lei [address] [place] [phone] November 12, 2007 Dear Dulce: I am writing to inform you the results of the laboratory tests you had done during your recent visitto the clinic. Your thyroid test was normal. The results of your recent lab(s) were: Your thyroid (TSH) blood test: TSH 1.21 11/12/07 normal range: 0.34-4.82 It was a pleasure to see you in the clinic. If you have any further questions or problems, please contact our office at [phone]. Sincerely, America Cortes MD, TEST ENG Department [facility] Source: [facility] Document Id: [id number] Electronically signed by Conversion, [facility] Sanding Machine Tender Automatic [id number] at 09/19/2016 2:59 AM CDT documented in this encounter Plan of Treatment Not on filedocumented as of this encounter Visit Diagnoses Not on filedocumented in this encounter
--- OUTSIDE RECORDS SUMMARY | 2022-03-16 15:13 | XMS_ITS | Encounter Summary ---
:1980 Author Organization [facility] Address [address] [place] [address] Care Team Providers Name Role Phone Unavailable Primary Care Provider Unavailable Encounter Details Date Type Department Care Team Description 11/29/2007 Hospital Encounter HX NO MAPPING Julieta Louis, P.T. [address] [place], [place] [phone] Social History Tobacco Use [...] documented as of this encounter Progress Notes Monika Louis P.T. - 11/29/2007 12:00 AM CDT [id number] PHYSICAL THERAPY SUMMATION OF EPISODE OF CARE - 1X ONLY Patient Name: Dulce Lei : 1980 Date of Service: 11/29/07 Number of Visits: 1 Referring Provider: America Cortes M.D. Physical/Functional Status at Last Visit / Patient Contact: The patient failed to attend or schedule additional visits as indicated in the plan of care established at their initial evaluation. Their current physical / functional status is unknown. Efforts to contact the patient have been unsuccessful. Patient cancelled last [facility] appt. Finances and travel and daycare are limiting factors for pt. Goals in the Plan of Care: Patient will verbalize understanding of pelvic floor function Decrease frequency of urination from 1hr to 2 hrs Improved coordination of synergistic muscles for improved PF contraction Good working knowledge of posture principles / joint protection in 3 week(s). Patient will report a 50% improvement in 12 week(s). Decreased pain at PF and back to within tolerable limited 0-4/10 in 12 weeks Degree of Anticipated Goals and Expected Outcomes Achieved: (Assessment of improvement and extent of progress toward each goal in the current POC) Goal #1-#6: Unknown Criteria for Discharge: Patient/client, caregiver, or legal guardian declined to continue intervention. Patient to follow upfor back care with local therapist as able. MD is considering bladder installations. Discharge Plan: Home exercise and self care program. Therapist: Monika Louis, PT Date: 04/02/2008 Source: [facility] Document Id: [id number] Electronically signed by Conversion, [facility] Scoop Machine Operator [id number] at 09/18/2016 9:50 PM CDT documented in this encounter Plan of Treatment Not on filedocumented as of this encounter Visit Diagnoses Not on filedocumented in this encounter
--- OUTSIDE RECORDS SUMMARY | 2022-03-16 15:13 | XMS_ITS | Encounter Summary ---
:1980 Author Organization [facility] Address [address] [place] [address] Care Team Providers Name Role Phone Unavailable Primary Care Provider Unavailable Encounter Details Date Type Department Care Team Description 10/15/2007 Hospital Encounter HX [facility] John Lewis, INPT/OBSRV M.DLashawn [address] [phone] (Wo rk) Social History Tobacco [...]
--- OUTSIDE RECORDS SUMMARY | 2022-03-16 15:13 | XMS_ITS | Encounter Summary ---
:1980 Author Organization [facility] Address [address] [place] [address] Care Team Providers Name Role Phone Unavailable Primary Care Provider Unavailable Encounter Details Date Type Department Care Team Description 09/04/2007 Hospital Encounter HX [facility] INPT/OBSRV Bambi Cason M.D. [address] [place], [place] [address] (Wo rk) Social History [...]
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
--- OUTSIDE RECORDS SUMMARY | 2022-03-16 15:14 | XMS_ITS | Encounter Summary ---
:1980 Demographics Address [address] [place] [address] Mobile Phone Home Phone Email Address Preferred Language ENG Marital Status Single Mosque Affiliation Unknown Race White Ethnic Group Not or Author [facility] Address [address] [place] [address] Care Team Providers Name Role Phone Unavailable Primary Care Provider Unavailable Encounter Details Date Type Department Care Team Description 04/27/2007 Hospital Encounter HX NO MAPPING Jack Goff M.D. Social History Tobacco Use Types Packs/Day [...]
--- OUTSIDE RECORDS SUMMARY | 2022-03-16 15:14 | XMS_ITS | Encounter Summary ---
:1980 Author Organization [facility] Address [address] [place] [address] Care Team Providers Name Role Phone Unavailable Primary Care Provider Unavailable Encounter Details Date Type Department Care Team Description 02/03/2007 Hospital Encounter HX [facility] INPT/OBSRV Isacc Lei PLeeroy., P.A. [address] [place] [address] (Wo rk) Social History Tobacco [...]
--- OUTSIDE RECORDS SUMMARY | 2022-03-16 15:14 | XMS_ITS | Encounter Summary ---
:1980 Author Organization [facility] Address [address] [place] [address] Care Team Providers Name Role Phone Unavailable Primary Care Provider Unavailable Encounter Details Date Type Department Care Team Description 04/17/2007 Hospital Encounter HX NO MAPPING Provider, Historical [...] Miscellaneous Notes Miscellaneous - Conversion, Historical Provider Gonzales - 04/17/2007 12:00 AM PACK[employer] STRAPPER [id number] 11/14/2007 - Records released to patient. Source[facility] Document Id: [id number] documented in this encounter Plan of Treatment Not on filedocumented as of this encounter Visit Diagnoses Not on filedocumented in this encounter
--- OUTSIDE RECORDS SUMMARY | 2022-03-16 15:14 | XMS_ITS | Encounter Summary ---
:1980 Author Organization [facility] Address [address] [place] [address] Care Team Providers Name Role Phone Unavailable Primary Care Provider Unavailable Encounter Details Date Type Department Care Team Description 01/25/2007 - Hospital Encounter HX NO MAPPING America Cortes, 04/02/2007 [place] [address] [place] [address] (Wo rk) Social History Tobacco [...]
--- OUTSIDE RECORDS SUMMARY | 2022-03-16 15:14 | XMS_ITS | Encounter Summary ---
:1980 Author Organization [facility] Address [address] [place] [address] Care Team Providers Name Role Phone Unavailable Primary Care Provider Unavailable Encounter Details Date Type Department Care Team Description 02/15/2007 Hospital Encounter HX [facility] INPT/OBSRV Suchomel-Eliza Munguia M.D. [address] [place], [place] [address] (Wo rk) Social History [...]
--- OUTSIDE RECORDS SUMMARY | 2022-03-16 15:14 | XMS_ITS | Encounter Summary ---
:1980 Author Organization [facility] Address [address] [place] [address] Care Team Providers Name Role Phone Unavailable Primary Care Provider Unavailable Encounter Details Date Type Department Care Team Description 04/27/2007 Hospital Encounter HX [facility] Provider, Histori beatrice Social History Tobacco Use Types Packs/Day Years [...]
--- OUTSIDE RECORDS SUMMARY | 2022-03-16 15:14 | XMS_ITS | Encounter Summary ---
:1980 Author Organization [facility] Address [address] [place] [address] Care Team Providers Name Role Phone Unavailable Primary Care Provider Unavailable Encounter Details Date Type Department Care Team Description 04/30/2007 Hospital Encounter HX NO MAPPING Provider, Historical [...]
--- OUTSIDE RECORDS SUMMARY | 2022-03-16 15:14 | XMS_ITS | Encounter Summary ---
:1980 Author Organization [facility] Address [address] [place] [address] Care Team Providers Name Role Phone Unavailable Primary Care Provider Unavailable Encounter Details Date Type Department Care Team Description 06/27/2007 Hospital Encounter [facility]X [facility] INPT/OBSRV Haley Hansen M.D. Social History [...]
--- OUTSIDE RECORDS SUMMARY | 2022-03-16 15:14 | XMS_ITS | Encounter Summary ---
:1980 Author Organization [facility] Address [address] [place] [address] Care Team Providers Name Role Phone Unavailable Primary Care Provider Unavailable Encounter Details Date Type Department Care Team Description 02/19/2007 Hospital Encounter HX NO MAPPING Provider, Historical [...]
--- OUTSIDE RECORDS SUMMARY | 2022-03-16 15:14 | XMS_ITS | Encounter Summary ---
:1980 Author Organization [facility] Address [address] [place] [address] Care Team Providers Name Role Phone Unavailable Primary Care Provider Unavailable Encounter Details Date Type Department Care Team Description 02/07/2007 Hospital Encounter HX NO MAPPING Provider, Historical [...]
--- OUTSIDE RECORDS SUMMARY | 2022-03-16 15:14 | XMS_ITS | Encounter Summary ---
:1980 Author Organization [facility] Address [address] [place] [address] Care Team Providers Name Role Phone Unavailable Primary Care Provider Unavailable Encounter Details Date Type Department Care Team Description 04/13/2007 Hospital Encounter HX NO MAPPING Provider, Historical [...] Progress Notes Conversion, Historical Provider Ser - 04/13/2007 6:30 PM CST [id number] SUBJECTIVE: 26-year-old female presents for evaluation of rash on her left neck that has been present for the past 4 days. She reports it zurita and it itches. It is unchanged. She has been trying Benadryl and cortisone cream without any change in the rash. She denies cold symptoms at this time. She did have a cold one week ago. She denies cough. She denies rash elsewhere. She did have it subjectively this morning. She does note she wore a gold necklace on [place] that she only wears once a year. PAST MEDICAL HISTORY: Significant for sinus problems. No other chronic medical problems. MEDICATIONS: Oral contraceptives. ALLERGIES: CIPRO. GYNECOLOGIC HISTORY: Last menstrual period is now. Patient denies the possibility of . SOCIAL HISTORY: Patient smokes a ?? pack per day. OBJECTIVE: Dulce is a 26-year-old female alert and oriented. Vitals as charted in no acute distress. Eyes, lids and conjunctivae are normal. Mouth, oropharynx is pink with moist mucous membranes. NECK: Supple without adenopathy. LUNGS: Clear to auscultation bilaterally without wheezes or rales. HEART: Cardiac exam reveals a regular rate and rhythm without murmurs. SKIN: There is an erythematous macular rash on the left side at the base of the neck. Signs of excoriation are present. There is no scaling. There is no warmth. There is no open areas. There are no pustules. ASSESSMENT: Rash, neck. PLAN: Try Lotrisone cream b.i.d. times 5 days. Side effects were reviewed. Advised to keep out of eyes andmouth, just a thin layer. If the rash appears to be worsening, she should discontinue and should recheck if symptoms do not resolve in 5 days with the use of the cream. All questions were answered. Patient expressed an understanding with the above plan. HARJEET Vizcaino/oscar Source: [facility] RWHXTRANSXRTFSYS Document Id: [id number] documented in this encounter Plan of Treatment Not on filedocumented as of this encounter Visit Diagnoses Not on filedocumented in this encounter
--- OUTSIDE RECORDS SUMMARY | 2022-03-16 15:14 | XMS_ITS | Encounter Summary ---
:1980 Author Organization [facility] Address [address] [place] [address] Care Team Providers Name Role Phone Unavailable Primary Care Provider Unavailable Encounter Details Date Type Department Care Team Description 02/09/2007 Hospital Encounter HX [facility] Jack Goff M .D. Social History Tobacco Use Types [...] this encounter Miscellaneous Notes Telephone Encounter - Conversion, Historical Provider Ser - 02/09/2007 12:[id number] Rehman has referred this patient to [facility] DX :right leg radicular pain appt: 02-19-072:30p.kofi [facility] Insurance is -[facility] Patient will hand carry records & consults-patient contacted medical release herself for her records. Source: [facility] RWHXTRANSXRTFSYS Document Id: [id number] documented in this encounter Plan of Treatment Not on filedocumented as of this encounter Visit Diagnoses Not on filedocumented in this encounter
--- OUTSIDE RECORDS SUMMARY | 2022-03-16 15:14 | XMS_ITS | Encounter Summary ---
:1980 Author Organization [facility] Address [address] [place] [address] Care Team Providers Name Role Phone Unavailable Primary Care Provider Unavailable Encounter Details Date Type Department Care Team Description 02/21/2007 Hospital Encounter HX NO MAPPING Provider, Historical [...]
--- OUTSIDE RECORDS SUMMARY | 2022-03-16 15:14 | XMS_ITS | Encounter Summary ---
:1980 Author Organization [facility] Address [address] [place] [address] Care Team Providers Name Role Phone Unavailable Primary Care Provider Unavailable Encounter Details Date Type Department Care Team Description 01/30/2007 Hospital Encounter HX NO MAPPING Provider, Historical [...]
--- OUTSIDE RECORDS SUMMARY | 2022-03-16 15:14 | XMS_ITS | Encounter Summary ---
:1980 Author Organization [facility] Address [address] [place] [address] Care Team Providers Name Role Phone Unavailable Primary Care Provider Unavailable Encounter Details Date Type Department Care Team Description 01/29/2007 Hospital Encounter HX NO MAPPING Julieta Louis, P.T. [address] [place], [place] [phone] Social History Tobacco Use [...] encounter Progress Notes Monika Louis P.T. - 01/29/2007 10:00 AM CDT [id number] PHYSICAL THERAPY INITIAL EVALUATION and PLAN OF CARE Patient Name: Dulce Lei : 1980 Specialty Tracking: Pelvic Floor ASSESSMENT: Patient's signs and symptoms consistent with:Mixed incontinence, Pelvic pain, associated with impaired muscle function and performance and related to connective tissue dysfunction SUBJECTIVE: PRESENTATION AND ETIOLOGY Chief complaint/character: L LBP, pelvic pain with feeling organs are falling out, Onset: since May Etiology: childbirth, epidural with [...] can you delay the need to urinate? Not at all. Avg daytime interval is 3 hrs. ?? Do you get up to urinate at night? /night Leakage: not reviewed today ?? How ofter do you urinate during the day times ?? Number of bladder infections last year? ?? Can you stop the flow of urine when on the toilet? ?? Is the volume of urine passed usually: . ?? Do you have the sensation that you need to go to the toilet? ?? Do you empty your bladder frequently, before you experience the urge to pass urine? ?? Do you strain to pass urine? ?? Do you have a slow or hesitant urninary stream? ?? Do you have difficulty initiating the urine stream? ?? Do you have triggers that make you feel you cant wait to go to the toilet? Bowel Habits: constipated lately with meds and pain, beginning to have freq of 1x/day usu 3x/day CURRENT / PREVIOUS INTERVENTION(S): Referring Provider: America Cortes M.D. Date: 01/17/07 Recheck: 2weeks Diagnositc Tests: not asked Have you been treated for this problem in any way? Medication - amytrip, laxative, prednisone, unsure if tried flexeril Prescribed medications: See Epic summary. DEMOGRAPHICS Employment Status: not asked today Pertinent Medical / Surgical History: Screening Tool Questions are: not asked Given ? Yes Any complications No Number of vaginal deliveries - 1 Number of episiotomy - no Number of Ceasarian section - 0 See Questionnaires PFDI- 20: not reviewed today PFIQ- 7: V-Q: Patients Selected Goals for Physical Therapy? Reduce pain, return tonormal activity OBJECTIVE: OBSERVATION Introitus: loose, discolored and discharge MUSCLE PERFORMANCE Baseline tone: hypo Tone with cough: bulge Valsalva: bulge Response quality: moderate Power: ?? Center: 1 ?? Left vaginal wall: 1 ?? Right vaginal wall: 1 Endurance: ?? Maximum contraction in seconds 1 ?? Repetitions prior to fatigue 5 ?? Number of quick contraction(s) before fatigue 5 Specificity/accessory muscles: Not Tested: Contraindicated Synergy with abdominals beginning to understand idea BIOFEEDBACK: not tested today Baseline normal mV Fast contraction max mV, reps Endurance contraction ave.mV, sec, reps Prolapse: ?? Cyctocele grade 0 ?? Rectocele grade 1 ?? Uterine prolapse not tested ?? Urethrocele: none ?? Enterocele: none SPECIAL TEST(S): Palpation: Reproduction of symptoms with digital evaluations and Pain: levator ani, coccygeous, transverse perineal muscle, perineal body and middle layer of muscles bilat GAIT, LOCOMOTION, and BALANCE: Gait: WNL/WFL Balance Proprioception: Not Tested: Not indicated RANGE OF MOTION: ROM: Not Tested: Time constraints NEUROMOTOR DEVELOPMENT AND SENSORY INTEGRATION: lethargic today, sensation at L L5-S1 dermatone diminished VENTILATION, RESPIRATION, AND CIRCULATION: WFL, diaphragmatic breathing: WFL Today's Treatment: Initial evaluation THERAPEUTIC PROCEDURES Manual Therapy: 10 minutes Soft Tissue Mobilization: PF stretching gr 2 superficial to deep as tolerated in pt supine Instructed pt in HEP for PF stretching with partner Therapeutic Exercise: 15 minutes Reviewed, progressed, and/or modified patient's HEP - issued written handout(s) Specialty: Pelvic Floor: PELVIC FLOOR DYSFUNCTION Pelvic lift-Kegel: strive for at least 30/day as able, avoid valsalva Lower abdominal training abdom bracing with trunk movement Lumbar symptom relief: 90/90 positioning, lumbar support prn Total Visit Time: 50 minutes Total Time-Based Code Only Minutes: 30 minutes. ASSESSMENT: Patient's signs and symptoms consistent with:Mixed incontinence, Pelvic pain, associated with impaired muscle function and performance and related to connective tissue dysfunction Patient requires PT intervention for the following: pain, decreased strength, inability to control symptoms and improve awareness of pelvic floor function Patient requires PT interventions for the following functional limitations: Patient-Specific Functional Scale Q1: pain with sex. Unable to rate / 10 Q2: urinary urgency. Unable to rate / 10 Q3: . / 10 (0 = unable to perform activity / 10 = able to perform activity at the same level as before injury or problem) Short Term Goals - Completed within: 4 week(s). Patient will verbalize understanding of pelvic floor function Decrease frequency of urination from 1 to 2 Improved coordination of synergistic muscles Antcipated Goals and Expected Outcomes: Good working knowledge of posture principles / joint protection in 3 week(s). Standing tolerance 15 minutes without increased pain or symptoms in 8 week(s). Patient will report a 50% improvement in 6 week(s). Rehab potential for achieving goals: good. PLAN: [...] Patient will be seen 1 times a week for 12-16 weeks. Monika Louis, PT Date: 01/25/2007 Referring Provider Certification: Referring Provider reviewing certifies that the above treatment/ plan of care is required and authorized, and that the patient's plan will be reviewed every thirty(30) days . MEAL COOKER PRESENT: NA MULTIDISCIPLINARY PATIENT / FAMILY EDUCATION [...] questions, Demonstrated ability, Verbalized recall / understanding PHYSICAL THERAPY DAILY VISIT NOTES SUBJECTIVE: Since the last visit, the patient reports no change in symptoms for urgency but has some relief withcold symptoms. Nghia notes that she was not able to continue taking cymbalta due to hyper-alertness. Encouraged pt to contact MD regarding this side effect. Spoke with Dr. Cortes briefly today regarding this concern. Patient is scheduled to see Dr. Goff today for epideral discussion. Patient reports she continues to have leg and back symptoms. OBJECTIVE: MUSCLE PERFORMANCE: PF Stretngth 1/ external assessment, low endur to ex of 15reps. TREATMENT TODAY CONSISTED OF: THERAPEUTIC PROCEDURES Therapeutic Exercise: 25 minutes Reviewed, progressed, and/or modified patient's HEP - issued written handout(s)and yellow theraband Specialty: Pelvic Floor: PELVIC FLOOR DYSFUNCTION Pelvic lift-Kegel: 15reps quick contractions in supine Obturator Internus exercise yellow theraband hip abd with abdom bracing [id number] Trunk stabilization training abdom bracing with activity, bracing with L heel slide [id number] max/day. ASSESSMENT: Post treatment response: No immediate post treatment change in symptoms as anticipated. Patient demonstrates a good understanding of HEP / Self Care. Progress summary: Patient requires continued skilled physical therapy to improve: pain, stability and strength Objective improvement in: PF awareness PLAN: Continue with prescribed treatment and progress as tolerated. Focus next session will be on: patient education, endurance, stabilization of involved joint(s), strength of involved joint(s) and coordination of muscles Total Visit Time: 30 minutes Total Time-Based Code Only Minutes: 25 minutes. Long Chain Dyeing Machine Operator Present: NA Therapist: Monika Louis PT [facility] RWMCHXTRANSXRTFSYS Document Id: [id number] documented in this encounter Plan of Treatment Not on filedocumented as of this encounter Visit Diagnoses Not on filedocumented in this encounter
--- OUTSIDE RECORDS SUMMARY | 2022-03-16 15:14 | XMS_ITS | Encounter Summary ---
:1980 Author Organization [facility] Address [address] [place] [address] Care Team Providers Name Role Phone Unavailable Primary Care Provider Unavailable Encounter Details Date Type Department Care Team Description 06/16/2007 Hospital [facility] Forrest Cerda M.D. [address] [place] [address] (Wo rk) Social History Tobacco Use Types [...]
--- OUTSIDE RECORDS SUMMARY | 2022-03-16 15:14 | XMS_ITS | Encounter Summary ---
:1980 Author Organization [facility] Address [address] [place] [address] Care Team Providers Name Role Phone Unavailable Primary Care Provider Unavailable Encounter Details Date Type Department Care Team Description 08/08/2007 Hospital Encounter [facility]X [facility] OBAlma Delia Maier, RLashawnN. Social History Tobacco Use Types Packs/Day [...] Encounter - Alma Delia Carrion R.N. - 08/08/2007 12:00 AM CDT [id number] TELEPHONE TRIAGE ENCOUNTER FORM Date: 08/08/2007 PCP: None Chetna Patient Name: Dulce Lei Gender: female : 1980 Age: [age] year old Time: 3:27 PM Phone Numbers: [phone] (home) Pharmacy: [facility] ASSESSMENT Presenting Problem: menstrual cycle 30 days in length Subjective/objective: Patient walk-in to clinic today to discuss symptoms. Patient states she has been taking control for 6 months consistently and having regular periods until this last month. At the beginning of this cycle patient reports having heavy flow for one week then the next two weeks were mild in blood flow. Now this week the blood flow is heavy again using 6 pads a day. Patient alsoreports having a swollen lower abdominal feeling. Patient continues to have moderate amount of pain with intercourse. No fever or problems with urination. Patient has had headaches and dizziness when going from a sitting to standing position. Onset: worsening Duration: 1 months Associated Sx: No fever noted and see above note. denies other problems Problem list reviewed: YES Recent History: Yes - What was it?: pelvic pain since delivery of baby. Recent Illness: No Allergiesverified: YES Precipitated by: Yes - What is it? Med list reviewed: YES Alleviated by: N/A Immunosuppressed:NO Conclusion / Primary Problem: Excessive menstrual cycle and pelvic pain Protocol(s) Consulted: Telephone Triage for Obstetrics and Gynecology. Jonathon, 2002 PLAN / INTERVENTION Disposition: Referred to clinic - within 24 hours Caller verbalizes understanding of disposition? YES Caller agrees to plan? Yes EVALUATION / FOLLOW-UP Advised patient if symptoms change or worsen before appointment to go to . [facility] Document Id: [id number] documented in this encounter Plan of Treatment Not on filedocumented as of this encounter Visit Diagnoses Not on filedocumented in this encounter
--- OUTSIDE RECORDS SUMMARY | 2022-03-16 15:14 | XMS_ITS | Encounter Summary ---
:1980 Author Organization [facility] Address [address] [place] [address] Care Team Providers Name Role Phone Unavailable Primary Care Provider Unavailable Encounter Details Date Type Department Care Team Description 06/16/2007 Hospital Encounter HX [facility] CAM INPT/OBSRV Forrest Cerda M.D. [address] [place] [address] (Wo rk) Social History Tobacco Use Types [...]
--- OUTSIDE RECORDS SUMMARY | 2022-03-16 15:14 | XMS_ITS | Encounter Summary ---
:1980 Author Organization [facility] Address [address] [place] [address] Care Team Providers Name Role Phone Unavailable Primary Care Provider Unavailable Encounter Details Date Type Department Care Team Description 03/28/2007 Hospital Encounter HX [facility] XRAY Provider, Histori beatrice Social History Tobacco [...]
--- OUTSIDE RECORDS SUMMARY | 2022-03-16 15:15 | XMS_ITS | Encounter Summary ---
:1980 Author Organization [facility] Address [address] [place] [address] Care Team Providers Name Role Phone Unavailable Primary Care Provider Unavailable Encounter Details Date Type Department Care Team Description 06/16/2006 Hospital Encounter HX NO MAPPING El Chadwick M.D. [address] [place] [phone] (Wo rk) Social History Tobacco [...]
--- OUTSIDE RECORDS SUMMARY | 2022-03-16 15:15 | XMS_ITS | Encounter Summary ---
:1980 Author Organization [facility] Address [address] [place] [address] Care Team Providers Name Role Phone Unavailable Primary Care Provider Unavailable Encounter Details Date Type Department Care Team Description 05/15/2006 Hospital Encounter [facility] Parisa Gracia M.D. [address] [place], [place] [phone] (Wo rk) Social History [...] encounter Progress Notes America Cortes M.D. - 05/15/2006 10:30 AM CST [id number] No concerns. Tried to strip membranes. Cervix 1/long/0, firm, posterior Unfav cervix, will come in at 4:30 on Roxie for cervidil, Pit Monday Will call L and D Roxie pm. KG Source: [facility] RWMCHXTRANSXRTFSYS Document Id: [id number] Electronically signed by Conversion, [facility] Licensed Architect [id number] at 09/19/2016 7:17 AM CDT documented in this encounter Plan of Treatment Not on filedocumented as of this encounter Visit Diagnoses Not on filedocumented in this encounter
--- OUTSIDE RECORDS SUMMARY | 2022-03-16 15:15 | XMS_ITS | Encounter Summary ---
:1980 Author Organization [facility] Address [address] [place] [address] Care Team Providers Name Role Phone Unavailable Primary Care Provider Unavailable Encounter Details Date Type Department Care Team Description 01/17/2007 Hospital Encounter [facility]X [facility] Parisa Gracia M.D. [address] [place], [place] [phone] (Wo rk) Social History [...] encounter Progress Notes America Cortes M.D. - 01/17/2007 1:00 PM CDT [id number] Dulce is a 26 year old here for her annual exam. Obstetric History T1 P0 TAB0 SAB0 E0 M0 L1 using depo or other injectable for contraception. Master Pilot HX: no abnormal paps. Her menses are all the time on DMPA HPI: Has big appetite, gained 14#, cranky, dry vagina. 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 PROLONG RUP MEMB-ANTEPAR 02/12/06 Hospitalized OTHER CURR COND-ANTEPARTUM POST TERM PREG-DELIVERED,40-42 WKS 05/22/06 Hospitalized PAST SURGICAL HISTORY: Past Surgical History Procedure Date Remove tonsils/adenoids,<14 y/o age 14 Tonsillectomy and adenoidectomy < age 14 Rw ent (abstracted) 09/13/01 Sinus surgery x 2 Rw ent (abstracted) age 8 tubes placed as child Full rout obste care,vaginal deliv 05/20/06 Baby Girl CURRENT MEDICATIONS: Current outpatient prescriptions Medication Sig ERUM 28 3-0.03 MG OR TABS 1 tablet by mouth daily, start on Monday MEDROXYPROGESTERONE ACETATE 150 MG/ML IM SUSP 150 MG IM x 1 repeat q 12 weeks ALLERGIES: Quinolones FAMILY HX: Family History Problem Relation Respiratory Maternal Uncle Allergies Maternal Grandmother as an adult/seasonal Diabetes Maternal Grandfather Heart Maternal Uncle IL x 3 Heart Maternal Grandfather [place] s/p bypass surgery Hypertension Maternal Grandfather Hypertension Maternal Uncle Thyroid Maternal Uncle GI Father diverticulitis Stroke Maternal Uncle Lipids Maternal Aunt Diabetes Mother ROS: REVIEW OF SYSTEMS: NEUROLOGIC: Negative EYES: Negative ENT: Negative GI: Negative BREAST: Negative : Has urinary frequency, urgency. Had an episode of urge incontinence. No stress incontinence TOOL MAKER BENCH: Painful intercourse CV: Negative PULMONARY: Negative MUSCULOSKELETAL: As above. Has left leg pain still, worse at night throbs. During menses has shooting pain into left groin and ant abd wall PSYCH: Negative, denies depression, just irritable has been depressed in the past and feels that she is not depressed now. 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 Alcohol Use: No occassional wine cooler Drug Use: No Sexually Active: Yes -- Male partner(s) Other Topics Concern No Blood Transfusions No Caffeine Yes 4 cans q day Sleep Concern No Stress Concern No Weight Concern No Diet No Exercise No Seat Belt Yes Self Exams No Social History Narrative No narrative on file PHYSICAL EXAM: This is a well-developed, well-nourished female in no apparent distress. ENT: ENT exam normal, no neck nodes or sinus tenderness. NECK: Supple, no adenopathy and thyroid normal. LUNGS: Normal - Clear to auscultation without rales, rhonchi, or wheezing.. HEART: Regular rate, rhythm and No murmur, rub, gallop. BREASTS: No masses, skin, nipple or axillary changes. ABDOMEN: Benign, Soft, flat, non-tender, No masses, organomegaly, No inguinal nodes and tender alongleft obliques and rectus mm insertion. PELVIC EXAM: Lymph: no enlarged groin nodes External genitalia: normal development, normal BUS, no lesions Perineum: normal skin, no lesions, good support Urethra meatus: normal , no lesion or caruncle Urethra: normal, nontender Bladder: very minimally tender, no masses, not enlarged Vagina: minimal ruggae, appears atrophic. Tender and contracted left pelvic floor mm, left obturatortender, right non tender Cervix:primiparous and no lesions Uterus: smooth, firm, mobile, without irregularities anteverted, non tender Adnexa: non tender, 2 x 3 bilateral without abnormality RV: not indicated Rectum: no hemorrhoids, no bleeding EXTREMITIES: Normal. NEUROLOGIC: Normal. SKIN: scattered benign nevi ASSESSMENT AND PLAN: Annual Master Pilot exam. 2. Chronic LLE pain thought to be due to epidural placement 9 months ago. 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 No sign of vestibulitis at this point. - start amitryiptine 10mg at hs, will titrate up at follow up appt. -[facility] 3. Contraception-having lots of side effects on DMPA. She has acne, irritability, bleeding, weight gain. Conceived on OCPs in the past. Will try Erum, start this SUn (due for DMPA on 01/19). Would consider mirena placement as back-up. She doesn't sound too thrilled about that idea. -Has follow up appt with Dr. Goff next week. Health maintenance includes: pap smear done today. Source: [facility] Document Id: [id number] Electronically signed by Conversion, [facility] Desktop Support Associate [id number] at 09/19/2016 10:31 AM CDT documented in this encounter Miscellaneous Notes Miscellaneous - Conversion, Historical Provider Ser - 01/17/2007 1:00 PM CDT [id number] Dulce Lei [address] [place] [address] January 23, 2007 Dear Dulce Lei, I am happy to inform you that your recent cervical cancer screening test (PAP smear) was normal. Preventative screening such as this helps insure your health for years to come. Congratulations for taking care of yourself! Please contact my office if you have any further questions. [phone]. Sincerely, America Cortes M.D. OBSTETRICS/GYNECOLOGY [facility] Source: [facility] Document Id: [id number] documented in this encounter Plan of Treatment Not on filedocumented as of this encounter Visit Diagnoses Not on filedocumented in this encounter
--- OUTSIDE RECORDS SUMMARY | 2022-03-16 15:15 | XMS_ITS | Encounter Summary ---
:1980 Author Organization [facility] Address [address] [place] [address] Care Team Providers Name Role Phone Unavailable Primary Care Provider Unavailable Encounter Details Date Type Department Care Team Description 05/24/2006 Hospital Encounter HX NO MAPPING Theo Milner M.D. [address] [place] [phone] (Wo rk) Social History Tobacco [...]
--- OUTSIDE RECORDS SUMMARY | 2022-03-16 15:15 | XMS_ITS | Encounter Summary ---
:1980 Author Organization [facility] Address [address] [place] [address] Care Team Providers Name Role Phone Unavailable Primary Care Provider Unavailable Encounter Details Date Type Department Care Team Description 05/01/2006 Hospital Encounter HX [facility] Supa Pena M.D. [address] [place] [phone] (Wo rk) Social History Tobacco [...] documented as of this encounter Progress Notes Markus Duncan M.D. - 05/01/2006 2:15 PM CST [id number] Pop 05/13/2006, Having some contractions wds Source: [facility] RWHXTRANSXRTFSYS Document Id: [id number] Electronically signed by Lesley, [facility] Gin Operator [id number] at 09/19/2016 7:17 AM CDT documented in this encounter Plan of Treatment Not on filedocumented as of this encounter Visit Diagnoses Not on filedocumented in this encounter
--- OUTSIDE RECORDS SUMMARY | 2022-03-16 15:15 | XMS_ITS | Encounter Summary ---
:1980 Author Organization [facility] Address [address] [place] [address] Care Team Providers Name Role Phone Unavailable Primary Care Provider Unavailable Encounter Details Date Type Department Care Team Description 01/22/[address] [facility] Parisa Gracia M.D. [address] [place], [place] [phone] (Wo rk) Social History [...] encounter Progress Notes America Cortes M.D. - 01/22/2007 11:00 AM CDT [id number] Complaining of 3 days of backpain, no BM for 3 days. Started amitryptiline 5 days ago. Sleeping better, has dry mouth in am, no visual changes. No nausea, appetite o.k.. On Erum, too. Has never had aproblem with constipation until now. Back pain is different from her epidural pain. OBJECTIVE: Abdomen: tender over left lumbar region, reproduces pain +NABS, diffusely mildly tender, no rebound, not distended. ASSESSMENT: Constipation. Likely secondary to amitryptiline she's taking for neurogenic pain. PLAN: 1. Trial of flexaril for back pain 2. Stop amitryptiline for one day, resume tomorrow 3. Miralax once daily. Would like to cont amitryptiline if we cam control constipation issue as it would be helpful for pelvic floor mayalgia and LLE neurogenic pain. 4. Has follow up appt in [facility] on 01/25. 5. UA done to rule out pyelo-negative. Source: [facility] RWHXTRANSXRTFSYS Document Id: [id number] Electronically signed by Conversion, [facility] Tile And Marble Installer [id number] at 09/19/2016 10:31 AM CDT documented in this encounter Plan of Treatment Not on filedocumented as of this encounter Visit Diagnoses Not on filedocumented in this encounter
--- OUTSIDE RECORDS SUMMARY | 2022-03-16 15:15 | XMS_ITS | Encounter Summary ---
:1980 Author Organization [facility] Address [address] [place] [address] Care Team Providers Name Role Phone Unavailable Primary Care Provider Unavailable Encounter Details Date Type Department Care Team Description 01/24/2007 Hospital Encounter HX NO MAPPING Jonathan Garcia P.A.-Edward., P.A. [address] [place], [place] [phone] (Wo rk) Social History [...] Progress Notes Conversion, Historical Provider Ser - 01/24/2007 6:45 PM CDT [id number] SUBJECTIVE: 26-year-old female presents to urgent care accompanied with her friend complaining of a sore throat times a couple days. She has had a low grade fever, postnasal drip and congestion. Stou-kqn-jzmlemt medications not attempted. No nausea, vomiting or rashes. She also notes that she has had low back pain times eight months but she notes she is in urgent caretoday because it has been exacerbated for about three days. She has been seen by Dr. Goff for this as well as Dr. Cortes notes that her back pain started after the of her last child and she believes that this was caused by the epidural injection. Amitriptyline has been given for this but states that this causes constipation so she was told by Dr. Cortes to stop this medication for a couple days until things get back to normal. She has also been doing some physical therapy which has been going well. She admits that she has been seeing Dr. Cortes who according to Dulce states that everything is swollen from the Pap smear. She states she believes her kidneys are swollen and the abdominal wall is swollen. She believes this has been diagnosed from that exam. Nonetheless Dulce doesnt have any abdominal pain today. She doesnt have any dysuria, frequency or urgency. She denies any blood in the urine. Urinalysis completed by Dr. Cortes was reviewed a couple days ago and looks to be normal with no blood. She states her back pain is worse with movement and radiates down the left leg and she locates it in the lumbar region and not close to the kidney whatsoever. ALLERGIES: Cipro. OBJECTIVE: VITAL SIGNS: Blood pressure 121/81, pulse 109, temperature 98.7. GENERAL: Pleasant female sitting in the exam room in no apparent distress. Appropriate mood and affect. CARDIAC: Regular rate and rhythm. Positive S1 and S2. LUNGS: Clear to auscultation. No wheezes, rales rhonchi. Sinuses tender to palpation in the maxillary sinus area. THROAT: Mild posterior erythema. No exudates or lesions. NECK: No anterior or posterior cervical chain adenopathy. EYES: Normal lids and conjunctivae. BACK: Tender to palpation in the lumbar spine in approximately L3-L4 and has some tenderness to palpation with positive muscle spasm over the latissimus dorsi of the left hand side. Negative straight and cross leg exam. Patellar reflexes +2. Sensation intact. Nonantalgic gait and dorsal pedis pulses. Posterior tibialis pulses are equal bilaterally. Strength is 5/5 with knee flexion and extension as well as hip flexion and extension. No CVA tenderness. LABS: Basic metabolic profile looks to be negative. CBC which shows an elevated white count of 12.2 and urinalysis looks to be negative for any blood or hematuria. IMAGING: Lumbar spine x-ray taken and that looks to be negative for any fracture or spondylolisthesis. Final report by the radiologist is pending. ASSESSMENT AND PLAN: 1. Lumbago. I do not believe this to be kidney related in origin as there is normal BUN and creatinine and normal UA and with pain radiation down the leg. Nonetheless she wants to follow up with Dr. Cortes for further evaluation and treatment of this back pain. I discussed continuing physical therapy and she will have follow up with Dr. Goff. In the meantime we will give her some pain medication such as Tylenol #3. She notes that Darvocet does not work for her. 2. Sinus infection. We will treat with medication, Keflex one tablet per mouth three times a day. I discussed Zithromax,Augmentin, amoxicillin and she states that none of these work and does not want this antibiotic. Sheis allergic to quinolones. What she would like is Ketek but nonetheless we dont have samples today and after discussed the reese of Ketek she no longer wishes to have this. She is going to follow up with her primary care provider. HARJEET Blum/santo Source: [facility]RT[facility] Document Id: [id number] documented in this encounter Miscellaneous Notes Miscellaneous - Jonathan Garcia P.A.-C. - 01/24/2007 6:45 PM CDT [id number] Dulce Lei [address] [place] [id number] January 25, 2007 Dear Dulce I am writing you concerning your recent imaging study obtained at the clinic. Your x-ray has been reviewed by the radiologist and the findings are as follows. LUMBAR SPINE THREE VIEWS HISTORY: Back pain. Comparison: November 16 IMPRESSION: Negative. As a result, continue with the treatment plan discussed in the clinic. Re-check as discussed or sooner if symptoms worsen or fail to improve. If you have any questions or would like to discuss this further with me please feel free to call the clinic. Thank you for allowing me to participate in your care. Sincerely, Jonathan Garcia PA-C Department of Family Practice [facility] Source: [facility] Document Id: [id number] Electronically signed by [facility], [facility] Salesperson [employer] [id number] at 09/19/2016 10:31 AM CDT Miscellaneous - Jonathan Garcia P.A.-C. - 01/24/2007 6:45 PM CDT [id number] January 25, 2007 Dulce Lei [address] [place] [address] Dear Ms. Dulce Lei: I am writing to inform you of the results of the laboratory tests you had done. The results of your labs are as noted. Sodium 135 (desirable 133-148) Potassium 4.2 (desirable 3.4-5.3) Glucose (blood sugar) 88 (normal value without eating is below 100; Diabetes if more than 126) Blood urea nitrogen (BUN) 13 (kidney test and for hydration; desirable 5-24) Creatinine 0.79 (kidney function test; male 0.8-1.5) Calcium 8.9 (desired 8.5-10.3) Hemoglobin 13.5 (desirable female 12-16; male 13-18) Platelets 296 (help to make blood clot, desirable 150-450 K) White Blood Count 12.2 (desirable 4-11 K/uL) As a result, continue with the treatment plan discussed in the clinic. Return as discussed or soonerif symptoms worsen or fail to improve. Thank you for allowing me to participate in your care. If you have any further questions or problems, please contact me at the clinic. Sincerely, Jonathan Garcia PA-C Department of Family Practice [facility] Source: [facility] SYSTEMCh[facility] RWHXTRANSXRTFSYS Document Id: [id number] documented in this encounter Plan of Treatment Not on filedocumented as of this encounter Visit Diagnoses Not on filedocumented in this encounter
--- OUTSIDE RECORDS SUMMARY | 2022-03-16 15:15 | XMS_ITS | Encounter Summary ---
:1980 Author Organization [facility] Address [address] [place] [address] Care Team Providers Name Role Phone Unavailable Primary Care Provider Unavailable Encounter Details Date Type Department Care Team Description 01/14/2007 Hospital Encounter HX [facility] Provider, Historical INPT/OBSRV Social History Tobacco Use [...]
--- OUTSIDE RECORDS SUMMARY | 2022-03-16 15:15 | XMS_ITS | Encounter Summary ---
:1980 Author Organization [facility] Address [address] [place] [address] Care Team Providers Name Role Phone Unavailable Primary Care Provider Unavailable Encounter Details Date Type Department Care Team Description 08/18/2006 Hospital Encounter HX [facility] OBGYN Provider, Histor ical Social History Tobacco [...]
--- OUTSIDE RECORDS SUMMARY | 2022-03-16 15:15 | XMS_ITS | Encounter Summary ---
:1980 Author Organization [facility] Address [address] [place] [address] Care Team Providers Name Role Phone Unavailable Primary Care Provider Unavailable Encounter Details Date Type Department Care Team Description 05/24/2006 Hospital Encounter HX NO MAPPING Provider, Historical [...]
--- OUTSIDE RECORDS SUMMARY | 2022-03-16 15:15 | XMS_ITS | Encounter Summary ---
:1980 Author Organization [facility] Address [address] [place] [address] Care Team Providers Name Role Phone Unavailable Primary Care Provider Unavailable Encounter Details Date Type Department Care Team Description 05/19/2006 - Hospital Encounter HX NO MAPPING America Cortes, 05/22/2006 Tushar [address] [place] [address] (Wo rk) Social History Tobacco [...] this encounter Miscellaneous Notes Telephone Encounter - Alyssa Sahu R.N. - 04/22/2014 1:[address] [facility] Nurse Call Note From: ALYSSA SAHU RN ([facility] Nurse cut out and marking machine operator) Sent: 04/22/2014 13:43:41 TOOL BUILDER Subject: [facility] Nurse Call Note Dulce is transferred to the [facility] Nurse Line stating she has a bad migraine and is getting no relief with home measures. Was trying to get appointment with her pcp because they usually just order a couple of shots for me and it goes away. No appointments available in clinic. Patient rating the headache a 8/10 and is having nausea associated with it therefore she declines any further triage and will have a neighbor transport her to ER for evaluation. Source: [facility] POWERCHART Document Id: [id number] Miscellaneous - Conversion, Historical Provider Ser - 03/05/2014 4:26 PM TOOL BUILDER Med Management Document Contains Addenda Addendum by TIRSO RISO V on 06 March 2014 12:16:17 TOOL BUILDER denial faxed to Raissa phelps/ rachel for pt to schedule appt to discuss Addendum by ANDREW VERA DNP, FNP on 06 March 2014 12:08:56 TOOL BUILDER From: ANDREW VERA DNP, FNP To: TIRSO RIOS V; Sent: 03/06/2014 12:08:56 TOOL BUILDER Subject: RE: Med Management Addendum by ANDREW VERA DNP, FNP on 06 March 2014 12:08:53 TOOL BUILDER needs visit, not sure if breast feeding. From: TIRSO RIOS V To: ANDREW VERA DNP, LORETO; TIRSO RIOS V; Sent: 03/05/2014 16:26:03 TOOL BUILDER Subject: Med Management On hold pending signature Order:ketorolac (ketorolac 10 mg oral tablet) 1 tab(s) PO 4xDay (not to exceed 40 mg/day). NOT TO BEUSED WITH OTHER NSAIDS Qty: 30 tab(s) Refills: 0 Substitutions Allowed PRN Migraine headache Route To Pharmacy - [facility] pt last seen here 12/04 by Barbara & was 28 weeks @ that time so probably delivered baby earlier this month? Unknown if this OK to use if pt may be nurisng?This was last ordered 01/11/13 &last filled 06/04/13 Source: [facility] POWERCHART Document Id: [id number] documented in this encounter Plan of Treatment Not on filedocumented as of this encounter Visit Diagnoses Not on filedocumented in this encounter
--- OUTSIDE RECORDS SUMMARY | 2022-03-16 15:15 | XMS_ITS | Encounter Summary ---
:1980 Author Organization [facility] Address [address] [place] [address] Care Team Providers Name Role Phone Unavailable Primary Care Provider Unavailable Encounter Details Date Type Department Care Team Description 06/26/2006 Hospital Encounter HX [facility] OBGYN Provider, Histor ical Social History Tobacco [...] this encounter Progress Notes Conversion, Historical Provider Gonzales - 06/26/2006 1:00 PM CDT [id number] Dulce is a 26 year old female here for a 6-week checkup. She had a of a viable , with no obstetrical complications. Since delivery, she has been bottle feeding, has no signs of infection, bleeding. She has had problems with back pain since placement of epidural. She was seen by neurologist and prescribed muscle relaxant but makes her too sleepy. EXAM: HEENT: grossly normal. NECK: no lymphadenopathy or thyroidomegaly. LUNGS: CTA X 2, no rales or crackles. BACK: No spinal or CVA tenderness. HEART: RRR without murmurs clicks or gallops. ABDOMEN: soft, non tender, good bowel sounds, without masses, rebound, guarding, or tenderness. PELVIC: External genitalia: normal without lesion, repair well healed. Vagina: normal mucosa and rugae, no discharge. Cervix: multiparous, well healed, without lesion. Uterus: non in size, firm, mobile, no lesions. Adnexa: non tender, without masses. EXTREMITIES: warm to touch, good pulses, no ankle edema or calf tenderness. NEUROLOGIC: grossly normal. Tender to palpation lower back, mainly midline. ASSESSMENT: Normal 6-week exam after . Back pain- will give rx for valium, muscle relaxant made her too sleepy- will try to get evaluatin from neurologist follow up in 10-14 days. Note for two weeks off work til next evaluation. PLAN: depo or other injectable for contraception she is to return to clinic in one year for her next annual exam Source: [facility] RWHXTRANSXRTFSYS Document Id: [id number] documented in this encounter Miscellaneous Notes Miscellaneous - Conversion, Historical Provider Ser - 06/26/2006 1:00 PM CDT [id number] Work Release Date: 06/26/2006 Name: Dulce Lei Birthdate: 1980 The patient was seen at: [facility] today Restrictions if any: OFF Work for two more weeks due to related back problems. Dulce Lei will be evaluated again in two weeks. Tayler Salgado M.D. Department of Obstetrics and Gynecology [facility] [phone] Source: [facility] RWHXTRANSXRTFSYS Document Id: [id number] documented in this encounter Plan of Treatment Not on filedocumented as of this encounter Visit Diagnoses Not on filedocumented in this encounter
--- OUTSIDE RECORDS SUMMARY | 2022-03-16 15:15 | XMS_ITS | Encounter Summary ---
:1980 Author Organization [facility] Address [address] [place] [address] Care Team Providers Name Role Phone Unavailable Primary Care Provider Unavailable Encounter Details Date Type Department Care Team Description 01/25/2007 Hospital Encounter HX NO MAPPING Felipe Cortes M.D. [address] [place], [place] [phone] (Wo rk) Social History [...] encounter Progress Notes Monika Louis P.T. - 01/25/2007 8:00 AM CDT [id number] PHYSICAL THERAPY INITIAL EVALUATION and PLAN OF [...] will be reviewed every thirty(30) days . SHROUD LINE TIER PRESENT: NA MULTIDISCIPLINARY PATIENT / FAMILY EDUCATION [...] Demonstrated ability, Verbalized recall / understanding Source: [facility] RWHXTRANSXRTFSYS Document Id: [id number] America Pickett M.D. - 01/25/2007 8:00 AM CDT [id number] Here for follow up of pelvic pain in the [facility]. She has had LLE pain and left sided back pain since placement of the epidural with delivery. She has had a lot of constipation on the amitryptiline. It didhelp her sleep, however. She saw me a couple of days ago and got some samples of miralax. She has had a BM but it is still very hard. She stopped the amitryptiline 2 days ago. She was in the UC last night for LBP. Has a URI over the last few days with congestion. She has deepand entry dyspareunia. Is very dry in the vagina. She has more urgency, frequency in the last yr. OBJECTIVE: Not re-examined ASSESSMENT: 1. Nerve root irritation-MRI done at [facility] shows moderate bilateral L4- L5 and L5-S1 facet joint arc ligamentous hypertrophy. She has seen Dr. Goff who felt the symptoms would go away with time. Has constopation (severe) with the 10mg amitryptiline. SHe definitely has neurogenic pain and likely upwind at the dorsal horn. 2. 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 No vestibulitis. 3. 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 4. ?pelvic organ prolapse-she feels the sensation of something falling out after having BM or voiding. 5. LBP-recent onset, in UC last night. PLAN: 1. Will try cymbalta 30mg daily for neurogenic pain, after she is having normal BMs. Side effects discussed. 2. Given a few more samples of miralax . Advised to fill the flexaril Rx for mm spasms . Had been given an Rx for Robinex from [facility], she can't remember if she took it or if it worked. 3. Will see Monika for further PT re: PFD, LBP 4. follow up in 2-3 weeks, sooner prn 5. Might consider scheduling follow up appt with Dr. Goff in the next 1-2 months if nerve root pain not better (?epidural?). Total encounter time was 25minutes with 25 minutes of counseling regarding treatment plan, neurogenic pain. Source: [facility] RWHXTRANSXRTFSYS Document Id: [id number] Electronically signed by Lesley, [facility] Mixing Machine Attendant [id number] at 09/19/2016 10:31 AM CDT documented in this encounter Plan of Treatment Not on filedocumented as of this encounter Visit Diagnoses Not on filedocumented in this encounter
--- OUTSIDE RECORDS SUMMARY | 2022-03-16 15:15 | XMS_ITS | Encounter Summary ---
:1980 Author Organization [facility] Address [address] [place] [address] Care Team Providers Name Role Phone Unavailable Primary Care Provider Unavailable Encounter Details Date Type Department Care Team Description 05/08/2006 Hospital Encounter [facility]X [facility] Tamie Luna M.D. Social History Tobacco Use Types Packs/Day [...] documented as of this encounter Progress Notes Tamie Kern M.D. - 05/08/2006 10:30 AM CST [id number] Has head cold, no fever or chills lungs CTA and sinuses not tender. Exam normal. KD Source: [facility] RWMCHXTRANSXRTFSYS Document Id: [id number] Electronically signed by Conversion, [facility] Direct Sales Consultant [id number] at 09/19/2016 7:17 AM CDT documented in this encounter Plan of Treatment Not on filedocumented as of this encounter Visit Diagnoses Not on filedocumented in this encounter
--- OUTSIDE RECORDS SUMMARY | 2022-03-16 15:15 | XMS_ITS | Encounter Summary ---
:1980 Author Organization [facility] Address [address] [place] [address] Care Team Providers Name Role Phone Unavailable Primary Care Provider Unavailable Encounter Details Date Type Department Care Team Description 11/09/2006 Hospital Encounter HX [facility] ORTHO Provider, Histor ical Social History Tobacco Use [...] Encounter - Conversion, Historical Provider Ser - 11/09/2006 12:00 AM CDT [id number] TELEPHONE TRIAGE ENCOUNTER FORM Date: 11/09/2006 PCP: El Chadwick MD Patient Name: Dulce Lei Gender: female : 1980 Age: [age] year old Time: 2:58 PM Phone Numbers: [phone] (home) Pharmacy: [place] [facility] [place] ASSESSMENT Presenting Problem: I had a baby 6 months ago and had an epidual and they nicked a nerve, I have been to the [facility] and they didn't help me Subjective/objective: low back pain into left leg, numb tingling and aching, had blood patch for spinal headaches, still has occasional headaches - not sure how long she can keep work, 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 denies other problems Problem list reviewed: YES Recent History: No. Recent Illness: No Allergies verified: YES Precipitated by: No Med list reviewed: YES Alleviated by: N/A Immunosuppressed:NO Conclusion / Primary Problem: Back pain Protocol(s) Consulted: Telephone Triage Protocols for Nurses. Lupillo 2002 - back pain PLAN / INTERVENTION Disposition: Referred to clinic - routine visit - working her into schedule Caller verbalizes understanding of disposition? YES Caller agrees to plan? Yes EVALUATION / FOLLOW-UP Source: [facility] RWHXTRANSXRTFSYS Document Id: [id number] documented in this encounter Plan of Treatment Not on filedocumented as of this encounter Visit Diagnoses Not on filedocumented in this encounter
--- OUTSIDE RECORDS SUMMARY | 2022-03-16 15:15 | XMS_ITS | Encounter Summary ---
:1980 Author Organization [facility] Address [address] [place] [address] Care Team Providers Name Role Phone Unavailable Primary Care Provider Unavailable Encounter Details Date Type Department Care Team Description 06/27/2006 Hospital Encounter [facility] Tamie Luna M.D. Social History Tobacco [...] Encounter - Conversion, Historical Provider Ser - 06/27/2006 12:00 AM CDT [id number] Patient called after being seen yesterday. She said Dr. Salgado told her to call you today to get results from Neurologist. She can be reached on her cell at [phone]. Source: [facility]ITALTrackwayXRSix [facility] Group[facility] Document Id: [id number] Telephone Encounter - Salma Mcgee R.N. - 06/27/2006 12:00 AM CDT [id number] Patient called again today requesting results from her neurologist. She is concerned as her symptoms, back pain and left leg pain, have not resolved. Patient's phone number: [phone]. Source: [facility] CENTERXiu.comSXRSix Degrees GroupNORTH GENERAL [facility]OSPITAL Document Id: [id number] Electronically signed by Conversion, [facility] Field Staff [id number] at 09/19/2016 10:24 AM CDT Telephone Encounter - Tamie Kern M.D. - 06/27/2006 12:00 AM CDT [id number] I will try her neurolgist for any recomondations. And call the patient back. On the [phone] number. I got the fax of Dr. Ambrocio, discussed her note - NSAIDS, PT and Robaxin. The Robaxin made too tired. Will try Cymbalta. Sent to [place] in . Source: [facility]PITALSXRSix Degrees GroupNOR[facility]AL [facility] Document Id: [id number] Electronically signed by Conversion, [facility] Field Staff [id number] at 09/19/2016 10:24 AM CDT documented in this encounter Plan of Treatment Not on filedocumented as of this encounter Visit Diagnoses Not on filedocumented in this encounter
--- OUTSIDE RECORDS SUMMARY | 2022-03-16 15:15 | XMS_ITS | Encounter Summary ---
:1980 Author Organization [facility] Address [address] [place] [address] Care Team Providers Name Role Phone Unavailable Primary Care Provider Unavailable Encounter Details Date Type Department Care Team Description 06/06/2006 Hospital Encounter [facility]X [facility] Tamie Luna M.D. Social History Tobacco Use [...] Encounter - Conversion, Historical Provider Ser - 06/06/2006 12:00 AM CST [id number] Dulce would like a prescription for a pain medication other than Tylenol #3, which she says is not helping, for back pain. She was seen by Dr. Peña today in clinic. She is also wondering about disability, since she can not get into see the neurologist until September. Uses [facility] pharmacy in [place]. She can be reached at [phone] Source: [facility]ITALXTR[facility]XRTFS[facility] Document Id: [id number] Telephone Encounter - Conversion, Historical Provider Ser - 06/06/2006 12:[id number] Kaila Osorio notified per request of Dr. Peña. Source: [facility]ITAL[facility] Document Id: [id number] documented in this encounter Plan of Treatment Not on filedocumented as of this encounter Visit Diagnoses Not on filedocumented in this encounter
--- OUTSIDE RECORDS SUMMARY | 2022-03-16 15:15 | XMS_ITS | Encounter Summary ---
:1980 Author Organization [facility] Address [address] [place] [address] Care Team Providers Name Role Phone Unavailable Primary Care Provider Unavailable Encounter Details Date Type Department Care Team Description 11/16/2006 Hospital Encounter HX [facility] Marian Buckley M.D. [address] [place], [place] [phone] (Wo rk) Social History [...] documented as of this encounter Progress Notes Alexsander Marshall M.D. - 11/16/2006 9:40 AM CDT [id number] CLINIC ENCOUNTER HISTORY: Dulce is a 26-year-old woman who is here in regard to her left leg pain that has been going on for the past six months. She said that when she had an epidural injection she had the onset of quite significant pain going down into her left leg and since that time she has had persistent troubles with this left leg pain. She has sought treatment elsewhere for this initially and also had an MRI obtained of her lumbar spine and we have the results for review today. PHYSICAL EXAMINATION: Examination of her lower extremities: Her deep tendon reflexes are symmetric and very hyper-reflexive which she states she has had for a very long time. Her strength is 5 out of 5 in all major muscle groups in her lower extremities. Her sensation is intact to light touch in all dermatomal distributions. RADIOGRAPHS: The x-rays of her lumbar spine are reviewed today which demonstrate no significant abnormalities. 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 ASSESSMENT AND PLAN: Dulce is a 26-year-old woman who has a nerve root irritation, probably related to her epidural injection. I discussed with her the treatment options. At this point, my first suggestion would be to try something to help with a strong anti-inflammatory such as a Medrol Dosepak as she has not tried anything like this as of yet . We will try this first. One other option would be to try a cortisone injection near the same apparent level. We will discuss this at a later date if the Medrol Dosepak is not helpful. She is somewhat skittish in regard to injections in her back at this point considering how things have progressed since her previous epidural injection. I will see her back in another four to six weeks to see if this pain has improved. She also has an appointment already with Dr. Goff and he could also go over this possibility of an epidural injection with cortisone medication and try and help calm down this apparent nerve root irritation from her epidural injection. Alexsander Marshall M.D. H/law cc: [facility]: [facility] Document Id: [id number] Electronically signed by Conversion, [facility] [employer] Field Examiner [id number] at 09/19/2016 8:14 AM CDT documented in this encounter Miscellaneous Notes Miscellaneous - Alexsander Marshall M.D. - 11/16/2006 9:40 AM CDT [id number] [facility] Return to Work Release Date: 11/16/2006 Name: Dulce Lei Birthdate: 1980 Soc.Sec.No: [id number] The patient was seen at: [facility] Restrictions if any: OFF Work from 11/16/06 to 11/30/06. Resume Activity: With no limitations. Alexsander Marshall M.D. ORTHOPEDIC SURGERY [facility] Source: [facility] Document Id: [id number] Electronically signed by Conversion, [facility] [employer] Field Examiner [id number] at 09/19/2016 8:14 AM CDT documented in this encounter Plan of Treatment Not on filedocumented as of this encounter Visit Diagnoses Not on filedocumented in this encounter
--- OUTSIDE RECORDS SUMMARY | 2022-03-16 15:15 | XMS_ITS | Encounter Summary ---
:1980 Author Organization [facility] Address [address] [place] [address] Care Team Providers Name Role Phone Unavailable Primary Care Provider Unavailable Encounter Details Date Type Department Care Team Description 05/04/2006 Hospital Encounter HX [facility] Supa Pena M.D. [address] [place] [phone] (Wo rk) Social History Tobacco [...] Encounter - Conversion, Historical Provider Ser - 05/04/2006 12:00 AM CST [id number] TELEPHONE TRIAGE ENCOUNTER FORM Date: 05/04/2006 PCP: El Chadwick MD Patient Name: Dulce Lei Gender: female : 1980 Age: [age] year old Time: 9:58 AM Phone Numbers: [phone] (home) Pharmacy: [facility] ASSESSMENT Presenting Problem: Possible labor Subjective/objective: patient is 38 weeks gestation. Reports that she has been leaking a foul smelling,clear vaginal discharge since last night. Also having intermittent dull pressure in her groin since onset of vaginal discharge. Onset: unchanged Duration: 1 days Associated Sx: No fever noted. Has also developed a sore throat and head congestion present x one day. Problem list reviewed: YES Recent History: No. Recent Illness: Sore throat and head congestion Allergies verified: YES Precipitated by: Yes - What is it? Med list reviewed: YES Alleviated by: N/A Immunosuppressed:NO Conclusion / Primary Problem: 3rd Trimester Vaginal discharge Protocol(s) Consulted: Telephone Triage for Obstetrics and Gynecology. Jonathon 2003 - Pgs. [phone] PLAN / INTERVENTION Disposition: See Provider with 2 hrs. Caller verbalizes understanding of disposition? YES Caller agrees to plan? Yes EVALUATION / FOLLOW-UP Source: [facility] RWHXTRANSXRTFSYS Document Id: [id number] documented in this encounter Plan of Treatment Not on filedocumented as of this encounter Visit Diagnoses Not on filedocumented in this encounter
--- OUTSIDE RECORDS SUMMARY | 2022-03-16 15:15 | XMS_ITS | Encounter Summary ---
:1980 Author Organization [facility] Address [address] [place] [address] Care Team Providers Name Role Phone Unavailable Primary Care Provider Unavailable Encounter Details Date Type Department Care Team Description 04/29/2006 Hospital Encounter HX NO MAPPING Theo Milner M.D. [address] [place] [phone] (Wo rk) Social History Tobacco [...]
--- OUTSIDE RECORDS SUMMARY | 2022-03-16 15:15 | XMS_ITS | Encounter Summary ---
:1980 Author Organization [facility] Address [address] [place] [address] Care Team Providers Name Role Phone Unavailable Primary Care Provider Unavailable Encounter Details Date Type Department Care Team Description 05/04/2006 Hospital Encounter HX [facility] Supa Pena M.D. [address] [place] [phone] (Wo rk) Social History Tobacco [...] encounter Progress Notes Markus Duncan M.D. - 05/04/2006 11:15 AM CST [id number] Pop 05/13/2006,has low abdominal cramping x 1 day,states it constant,thinks she has been leaking fluid,has a cough and sorethroat, stuffy head and runny nose, x 3 daysJZ Nitrozine neg Amnisure done wds Source: [facility] RWMCHXTRANSXRTFSYS Document Id: [id number] documented in this encounter Plan of Treatment Not on filedocumented as of this encounter Visit Diagnoses Not on filedocumented in this encounter
--- OUTSIDE RECORDS SUMMARY | 2022-03-16 15:15 | XMS_ITS | Encounter Summary ---
:1980 Author Organization [facility] Address [address] [place] [address] Care Team Providers Name Role Phone Unavailable Primary Care Provider Unavailable Encounter Details Date Type Department Care Team Description 10/30/2006 Hospital Encounter [facility]X [facility] Parisa Gracia M.D. [address] [place], [place] [phone] (Wo rk) Social History [...] Encounter - Conversion, Historical Provider Ser - 10/30/2006 12:00 AM CDT [id number] Accepting this Rx will FAX it directly to the pharmacy. Source: [facility] RWHXTRANSXRTFSYS Document Id: [id number] documented in this encounter Plan of Treatment Not on filedocumented as of this encounter Visit Diagnoses Not on filedocumented in this encounter
--- OUTSIDE RECORDS SUMMARY | 2022-03-16 15:15 | XMS_ITS | Encounter Summary ---
:1980 Author Organization [facility] Address [address] [place] [address] Care Team Providers Name Role Phone Unavailable Primary Care Provider Unavailable Encounter Details Date Type Department Care Team Description 06/07/2006 Hospital Encounter [facility]X [facility] Tamie Luna M.D. Social [...] this encounter Miscellaneous Notes Telephone Encounter - Nenita Chacko L.P.N. - 06/07/2006 12:00 AM [employer] ARCHITECT [id number] Insurance won't cover cymbalta they will cover gabapentin, thanks Source: [facility] Document Id: [id number] Electronically signed by Conversion, [facility] Excellence Coach [id number] at 09/19/2016 8:03 AM CDT Telephone Encounter - Tamie Kern M.D. - 06/07/2006 12:00 AM CST [id number] Discussed the neruotin - I will neurology it to her if they want it. KD Source: [facility] Document Id: [id number] Electronically signed by Conversion, [facility] Excellence Coach [id number] at 09/19/2016 8:03 AM CDT documented in this encounter Plan of Treatment Not on filedocumented as of this encounter Visit Diagnoses Not on filedocumented in this encounter
--- OUTSIDE RECORDS SUMMARY | 2022-03-16 15:15 | XMS_ITS | Encounter Summary ---
:[address] [facility] Address [address] [place] [address] Care Team Providers Name Role Phone Unavailable Primary Care Provider Unavailable Encounter Details Date Type Department Care Team Description 01/14/2007 Hospital Encounter HX [facility] Provider, Historical INPT/OBSRV Social History Tobacco [...]
--- OUTSIDE RECORDS SUMMARY | 2022-03-16 15:15 | XMS_ITS | Encounter Summary ---
:1980 Author Organization [facility] Address [address] [place] [address] Care Team Providers Name Role Phone Unavailable Primary Care Provider Unavailable Encounter Details Date Type Department Care Team Description 01/29/[address] [facility] Jack Goff M .D. Social History [...] documented as of this encounter Progress Notes Jack Goff M.D. - 01/29/2007 10:40 AM CDT [id number] CLINIC ENCOUNTER The patient returns for a followup of her back and left leg symptoms. She had undergone a previous epidural during her delivery and had some residual symptoms. The patient reports that she is markedly improved and making good headway. She still has a mild complaint of discomfort, but otherwise is doing very well. Clinically, her exam is very benign. IMPRESSION: Resolving left leg radicular symptoms. DISPOSITION: The patient is encouraged to continue on a back program and to follow up here then p.r.n. per discussed plan. Tushar Hu cc: Source: [facility] RWHXTRANSXSYS Document Id: [id number] Electronically signed by Lesley [facility] Cardiovascular Service Line [id number] at 09/19/2016 10:31 AM CDT documented in this encounter Plan of Treatment Not on filedocumented as of this encounter Visit Diagnoses Not on filedocumented in this encounter
--- OUTSIDE RECORDS SUMMARY | 2022-03-16 15:15 | XMS_ITS | Encounter Summary ---
:1980 Author Organization [facility] Address [address] [place] [address] Care Team Providers Name Role Phone Unavailable Primary Care Provider Unavailable Encounter Details Date Type Department Care Team Description 05/22/2006 Hospital Encounter HX [facility] Parisa Gracia M.D. [address] [place], [place] [phone] (Wo rk) Social History [...]
--- OUTSIDE RECORDS SUMMARY | 2022-03-16 15:15 | XMS_ITS | Encounter Summary ---
:1980 Author Organization [facility] Address [address] [place] [address] Care Team Providers Name Role Phone Unavailable Primary Care Provider Unavailable Encounter Details Date Type Department Care Team Description 06/06/2006 Hospital Encounter HX [facility] Lexus Luna M.D. Social History Tobacco Use Types [...] documented as of this encounter Progress Notes Lexus Naqvi M.D. - 06/06/2006 10:45 AM CST [id number] Addended by: LEXUS NAQVI on: 06/06/2006 3:14:55 PM Modules accepted: Orders [facility]: [facility] Document Id: [id number] Electronically signed by Lesley, [facility] User Experience Researcher [id number] at 09/19/2016 8:03 AM CDT Lexus Naqvi M.D. - 06/06/2006 10:45 AM CST [id number] She is here to follow up on left leg symptoms. These started at the time of the epidural. She had spinal MEDRANO and relief with blood patch. I have asked Dr. Frank to see and evlauate her. Note from Kaila Osorio MD.- Patient seen in OB clinic. She is well known to our department. Initially had labor epidural on May.21 and had parasthesia upon placement of epidural in L lower leg. She continued to have L leg tingling after labor also. The epidural catheter was found to be intrathecal and was used for labor as an continuous intrathecal catheter. It was removed after labor. She then came in to ER on 05/24/06 with a spinal headache and received a blood patch which gave her immediate relief. She still had as described tingling in L. Lower leg. She returned to OB clinic today complaining of burning pain in calf of L. Leg and tingling toes. She also feels that her L foot may be weaker than her right. On exam, her toes have less sensation in them. She is able to dorsiflex her L. Foot. Shedenies any history of back pain in the past or pinched nerves in her spine. Given the history of the parasthesia and the continuation of her symptoms, I recommend that neurology be consulted for examination and recommendations to the patient. Kaila Osoiro. Source: [facility] RWHXTRANSXRTFSYS Document Id: [id number] Electronically signed by Conversion, [facility] User Experience Researcher [id number] at 09/19/2016 8:03 AM CDT Lexus Naqvi M.D. - 06/06/2006 10:45 AM CST [id number] Will try cymbalta for pain. Wll try to get her in sooner at [facility] or [facility]. KD Source: [facility] RWHXTRANSXRTFSYS Document Id: [id number] Electronically signed by Conversion, [facility] User Experience Researcher [id number] at 09/19/2016 8:03 AM CDT documented in this encounter Plan of Treatment Not on filedocumented as of this encounter Visit Diagnoses Not on filedocumented in this encounter
--- OUTSIDE RECORDS SUMMARY | 2022-03-16 15:15 | XMS_ITS | Encounter Summary ---
:1980 Author Organization [facility] Address [address] [place] [address] Care Team Providers Name Role Phone Unavailable Primary Care Provider Unavailable Encounter Details Date Type Department Care Team Description 06/07/2006 Hospital Encounter HX NO MAPPING Provider, Historical [...]
--- OUTSIDE RECORDS SUMMARY | 2022-03-16 15:15 | XMS_ITS | Encounter Summary ---
:1980 Author Organization [facility] Address [address] [place] [address] Care Team Providers Name Role Phone Unavailable Primary Care Provider Unavailable Encounter Details Date Type Department Care Team Description 12/04/2006 Hospital Encounter [facility] Jack Goff M .D. Social [...] encounter Progress Notes Jack Goff M.D. - 12/04/2006 10:00 AM CDT [id number] CLINIC ENCOUNTER Dulce is a 26-year-old woman who is referred for orthopedic consultation from [facility] because of continued difficulty with complaints of back and left leg pain. She is a 26-year-old woman who underwent a full-term . At about the time of her delivery she states that she was treated with an epidural as per routine for vaginal delivery technique. The patient denies any previous history of back conditions or need for evaluation and treatment or restrictions of any activities because of her back. She states that she underwent the epidural placement with what sounds like a pretty uneventful approach; however, she did note that at the time of the placement she jumped because she had an electric shock in her back and it went down her left leg. The epidural worked just fine following that and she was able to deliver her child without ado. The patient, however, had significant headache following the epidural and was treated for a spinal headache. She underwent a blood patch injection at about two days . This did eliminate the headache component as well as the back condition, but her leg has still been bothered. She complains of a numbness, tingling to the left second and third toe as well as some to the posterolateral calf with a tingly sensation. There is nothing on the right side. Her symptoms do not seem to be affected by standing, sitting or Valsalva. She has been able to continue her regular care of her . Because of the significant problem, she was subsequently seen at [facility], underwent an MRI scan. Unfortunately, we do not have the actual scan, but we have a faxed report today sent to us with slight difficulty. The patient's report would indicate that she has some degenerative hypertrophic changes to the facet joints and ligaments at L4-5 and L5-S1. PHYSICAL EXAMINATION: Clinically the individual is otherwise a healthy-appearing 26-year-old woman. She has no deformity to the lower extremity. She has essentially negative straight leg raising to the left and right. Her deep tendon reflexes are 2+ out of 4 at the patellae and Achilles. Her sensory examination shows slight subjective tingling over the second toe more than great toe or third toe. She has really no findings to the dorsal foot or plantar foot. Her foot and ankle exam otherwise is normal for motor strength. Her leg is benign to exam without any dermatomal loss of sensation. Her muscle tone is intact and her strength appears negative. Her straight leg raising is negative on the left with no accentuation with dorsiflexion; however, she does have a slight popliteal fossa tenderness to palpation. The right side is benign. The reflexes, as noted, are symmetrically intact and her range of motion of the spine is intact. The patient's MRI scan report was shared with her. At this juncture I would like to certainly see the actual MRI scan for review and this will be obtained. The patient will be contacted back for a repeat appointment. IMPRESSION: Left leg symptoms following epidural. DISPOSITION: The patient was assessed of the information. 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 By her account appears to be slightly improved, although still quite persistent in nature. I am not certain that an EMG would be of any benefit at this juncture. She has resolved the headache issue and her back pain really has resolved quite well. She is noted to have some changes at the lower two disc levels on her report, which need to be reviewed and obviously at 26 years old without history of any major trauma, these have been quite asymptomatic and are probably still in that sense asymptomatic. She was assessed of all this information. I would recommend her to be patient and wait this out because I do believe it is going to resolve itself with time. She will follow up then per plan. Jack Goff M.D. Sailaja cc: Source: [facility] RWMCHXTRANSXSYS Document Id: [id number] documented in this encounter Plan of Treatment Not on filedocumented as of this encounter Visit Diagnoses Not on filedocumented in this encounter
--- OUTSIDE RECORDS SUMMARY | 2022-03-16 15:15 | XMS_ITS | Encounter Summary ---
:1980 Author Organization [facility] Address [address] [place] [address] Care Team Providers Name Role Phone Unavailable Primary Care Provider Unavailable Encounter Details Date Type Department Care Team Description 05/21/2006 Hospital Encounter [facility]X [facility] Tamie Luna M.D. Social History Tobacco Use [...] of this encounter Miscellaneous Notes Miscellaneous - Tamie Kern M.D. - 05/21/2006 12:00 AM CST [id number] [facility] [address] [facility], [address] Name: Dulce Lei Birthdate: 1980 SSN: [id number] [facility] Admission Date: 05-19-06 Allergy: Quinolones PHYSICIAN's DISCHARGE / TRANSFER ORDERS DISCHARGE TO: Home MEDICATIONS: PHARMACY CONSULT: NO Current outpatient prescriptions Medication Sig MOTRIN 600 MG OR TABS 1 TABLET PO q 6 hrs PRN pain TYLENOL/CODEINE #3 300-30 MG OR TABS 1-2 TABLETS EVERY 4 TO 6 HOURS NEEDED VITAMINS OR None Entered DIET: regular HOSPITAL COURSE: Complications: none Discharge hemoglobin - 10.4 g/dL. Admitting Diagnosis: post term , meconium fluid. Discharge Diagnosis: same delivered. PROCEDURE(S) PERFORMED: Vaginal delivery after induction of labor Discharge exam - Breast soft and nontender Abdomen - soft Fundus firm at umbilicus and non tender Vaginal discharge - minimal CONDITION ON DISCHARGE: Stable LEVEL OF ACTIVITY: no intercourse for 6 weeks APPOINTMENTS: with OB Nurse Practitioner in 6 weeks REFERRALS: NONE OTHER ORDERS/COMMENTS: Call if heavy bleeding, temperature over 100.4 degrees, signs of wound infection (redness, hot , any discharge, tenderness) or signs of breast infection (redness, tenderness, soreness, increasing firmness, engorgement) DISCHARGE SUMMARY DICTATED?: See Hospital Course information above. Time spent in discharging patient - less than [address] Forrest Cortes 05/22/2006 Source: [facility] RWHXTRANSXRTFSYS Document Id: [id number] Electronically signed by Conversion, [facility] Food And Nutrition Services Assistant [id number] at 09/19/2016 8:03 AM CDT Telephone Encounter - Conversion, Historical Provider Ser - 05/21/2006 12:00 AM CST [id number] Addended by: CHAPIS PHILIP on: 05/22/2006 10:57:44 AM Modules accepted: Orders Source: [facility] Document Id: [id number] documented in this encounter Plan of Treatment Not on filedocumented as of this encounter Visit Diagnoses Not on filedocumented in this encounter
--- OUTSIDE RECORDS SUMMARY | 2022-03-16 15:15 | XMS_ITS | Encounter Summary ---
:[address] [facility] Address [address] [place] [address] Care Team Providers Name Role Phone Unavailable Primary Care Provider Unavailable Encounter Details Date Type Department Care Team Description 06/19/2006 Hospital Encounter HX NO MAPPING Provider, Historical [...]
--- OUTSIDE RECORDS SUMMARY | 2022-03-16 15:15 | XMS_ITS | Encounter Summary ---
:1980 Author Organization [facility] Address [address] [place] [address] Care Team Providers Name Role Phone Unavailable Primary Care Provider Unavailable Encounter Details Date Type Department Care Team Description 10/19/2006 Hospital Encounter HX [facility] Parisa Gracia M.D. [address] [place], [place] [phone] (Wo rk) Social History [...] encounter Progress Notes America Cortes M.D. - 10/19/2006 10:30 AM CDT [id number] Pateint here to discuss her LBP, radiates into left leg. Went to [facility] clinic, didn't hear anything back. Pain got worse with PT, got sleepy on flexaril. Darvocet helps. Now has more severe pain in theleft leg and worsening numbness.Had an MRI showing facet and ligamentous hypertrophy at L4-S1. She states she has had the pain since placement of an MRI. Does not want to go back to [facility] as they didn't follow up with her, nor give her MRI results. Would like refill of Darvocet (ran out of them yesterday).Takes NSAIDs and tylenol-doesn't Want to get dependedent on narc's. Went to PT but states that the pain got worse after PT done. She also has had 2 DMPA injections, next one due next month. Bleeds once a week for 1 day, changes pad every 2-3 hrs, not too heavy. Wondering when it will lighten up. OBJECTIVE: Not examined ASSESSMENT: LBP-radiates into left leg, getting worse. PT made it worse, had an MRI showing facet and ligamentous hypertrophy BTB on DMPA PLAN: 1. Re: BTB, will give DMPA early to hopefully induce amenorrhea. IF not happy with results, could offer MIrena, given patient info today 2. Consult ortho-advised patient to bring her disc she received from her MRI to her appt. I also put another neurology appt in [facility] in case she'd like to see a different neurologist 3. Refilled darvocet. Total encounter time was 15 minutes with 15 minutes of counseling regarding contraception, DMPA options. Source: [facility] Document Id: [id number] Electronically signed by Conversion, United Health Servicespaula Manager [place] [id number] at 09/19/2016 5:48 AM CDT documented in this encounter Plan of Treatment Not on filedocumented as of this encounter Visit Diagnoses Not on filedocumented in this encounter
--- OUTSIDE RECORDS SUMMARY | 2022-03-16 15:15 | XMS_ITS | Encounter Summary ---
:1980 Author Organization [facility] Address [address] [place] [address] Care Team Providers Name Role Phone Unavailable Primary Care Provider Unavailable Encounter Details Date Type Department Care Team Description 05/19/2006 Hospital Encounter HX NO MAPPING Provider, Historical [...] Notes Miscellaneous - Tamie Kern M.D. - 05/19/2006 9:00 AM CST [id number] May 19, 2006 Dulce Lei [id number] OB Admit History & Physical Ms. Lei is here for induction because of postdates at Gestational Age: 40w 6d . She has noticed a few con tractions but no leaking or bleeding. Patient's LMP from OB Dating Form was 08/06/2005. Her Estimated Date of Delivery: May 13, 2006 , making her Gestational Age: 40w 6d wks. Her course has been complicated by hyperemisis and possible ROM. See for labs. 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 PROLONG RUP MEMB-ANTEPAR 02/12/06 Hospitalized OTHER CURR COND-ANTEPARTUM Past Surgical History Procedure Date Remove tonsils/adenoids,<14 y/o age 14 Tonsillectomy and adenoidectomy < age 14 Rw ent (abstracted) 09/13/01 Sinus surgery x 2 Rw ent (abstracted) age 8 tubes placed as child Current outpatient prescriptions Medication Sig ZOFRAN ODT 4 MG OR TBDP 1-2 TABLETS TWICE DAILY PRN VITAMINS OR None Entered DARVOCET-N 100 100-650 MG OR TABS 1 TABLET EVERY 4 HOURS NEEDED Allergies: Quinolones REVIEW OF SYSTEMS: NEUROLOGIC: Negative EYES: Negative ENT: Negative GI: Negative BREAST: Negative : Negative WOOL FLEECE SORTER: Negative CV: Negative PULMONARY: Negative MUSCULOSKELETAL: Negative PSYCH: Negative History Social History Marital Status: Single Spouse Name: Anup Spears Number of Children: N/A Years of Education: N/A 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 Alcohol Use: No occassional wine cooler, none with Drug Use: No Sexually Active: Yes -- Male partner(s) Other Topics Concern No Blood Transfusions No Caffeine Yes 4 cans q day Sleep Concern No Stress Concern No Weight Concern No Diet No Exercise No Seat Belt Yes Self Exams No Social History Narrative No narrative on file Family History Problem Relation Respiratory Maternal Uncle Allergies Maternal Grandmother as an adult/seasonal Diabetes Maternal Grandfather Heart Maternal Uncle RI x 3 Heart Maternal Grandfather RI s/p bypass surgery Hypertension Maternal Grandfather Hypertension Maternal Uncle Thyroid Maternal Uncle GI Father diverticulitis Stroke Maternal Uncle Lipids Maternal Aunt Vitals: FHT 145 With no contractions Alert Awake in NAD HEENT grossly normal Neck: no lymphadenopathy or thryoidomegaly Lungs CTA x 2 Back no spinal or CVAT Heart RRR ABD gravid, vertex on exam with no contractions palpable Pelvic: no fluid noted, no blood noted Cervix is 2 cm / 50 % effaced at 0 station, soft and mid position EXT: no edema or calf tenderness Neuro: Grossly intact Assessment: IUP at Gestational Age: 40w 6d Her for induction postdates Plan: Will start pitocin and may have nubain or epidural PRN. Tamie Kern MD Dept of ADULT NURSE PRACTITIONER Source: [facility] RWHXTRANSXRTFSYS Document Id: [id number] Electronically signed by Conversion, [facility] Dish Carrier [id number] at 09/19/2016 8:03 AM CDT documented in this encounter Plan of Treatment Not on filedocumented as of this encounter Visit Diagnoses Not on filedocumented in this encounter
--- OUTSIDE RECORDS SUMMARY | 2022-03-16 15:15 | XMS_ITS | Encounter Summary ---
:1980 Author Organization [facility] Address [address] [place] [address] Care Team Providers Name Role Phone Unavailable Primary Care Provider Unavailable Encounter Details Date Type Department Care Team Description 06/29/2006 Hospital Encounter [facility] Tamie Luna M.D. Social History [...] Telephone Encounter - Nenita Chacko L.P.N. - 06/29/2006 12:00 AM CDT [id number] Pharmacy said her insurance won't pay for cymbalta they will cover celexa,zoloft, prozac,please fax to [facility] Document Id: [id number] Electronically signed by Conversion, [facility] Head Of Conservation [id number] at 09/19/2016 10:24 AM CDT Telephone Encounter - Conversion, Historical Provider Ser - 06/29/2006 12:00 AM CDT [id number] Faxed celexa to [facility] Document Id: [id number] documented in this encounter Plan of Treatment Not on filedocumented as of this encounter Visit Diagnoses Not on filedocumented in this encounter
--- OUTSIDE RECORDS SUMMARY | 2022-03-16 15:15 | XMS_ITS | Encounter Summary ---
:1980 Author Organization [facility] Address [address] [place] [address] Care Team Providers Name Role Phone Unavailable [...]
--- OUTSIDE RECORDS SUMMARY | 2022-03-16 15:16 | XMS_ITS | Encounter Summary ---
:1980 Author Organization [facility] Address [address] [place] [address] Care Team Providers Name Role Phone Unavailable Primary Care Provider Unavailable Encounter Details Date Type Department Care Team Description 02/14/2006 Hospital Encounter [facility] Tamie Luna M.D. Social History Tobacco [...] encounter Progress Notes Tamie Kern M.D. - 02/14/2006 10:00 AM CST [id number] Quick Note: Called and The patient was notified of her lab results. Source: [facility] Document Id: [id number] Electronically signed by Conversion, [facility] Noodle Maker [id number] at 09/19/2016 4:24 PM CDT Conversion, Historical Provider Ser - 02/14/2006 10:00 AM CST [id number] Influenza injection. Reports no egg allergy and no reaction from injection in past. Source: [facility] Document Id: [id number] Tamie Kern M.D. - 02/14/2006 10:00 AM CST [id number] Gestational Age: 27w 3d ALEXANDER 05/13/06 F/U from hospital stay this weekend for leaking amniotic fliud. Also c/o vaginal itching since this am. BR No sig leaking today, but itching after ABX. She feels movement, no CTX, no bleeding and inrecent intercourse. Exam is neg with closed cervix. Wet prep = + yeast -->diflucan. Will get weekly visit and sono until sure no longer leaking. Sent Amnisure today and will call her mother's cell with resutls. [phone]. Will cont on modified bedrest - note given for work. KD Source: [facility] Document Id: [id number] Electronically signed by Conversion, [facility] Noodle Maker [id number] at 09/19/2016 4:24 PM CDT documented in this encounter Plan of Treatment Not on filedocumented as of this encounter Visit Diagnoses Not on filedocumented in this encounter
--- OUTSIDE RECORDS SUMMARY | 2022-03-16 15:16 | XMS_ITS | Encounter Summary ---
:1980 Author Organization [facility] Address [address] [place] [address] Care Team Providers Name Role Phone Unavailable Primary Care Provider Unavailable Encounter Details Date Type Department Care Team Description 03/14/2006 Hospital Encounter [facility] Social History Tobacco Use Types Packs/Day Years [...] Encounter - Conversion, Historical Provider Ser - 03/14/2006 12:00 AM CST [id number] TELEPHONE TRIAGE ENCOUNTER FORM Date: 03/14/2006 PCP: El Chadwick MD Patient Name: Dulce Lei Gender: female : 1980 Age: [age] year old Time: 3:58 PM Phone Numbers: [phone] (home) Pharmacy: [facility] ASSESSMENT Presenting Problem: Right rib pain pain/ Subjective/objective: Patient is 7-1/2 months . Has been bothered with soreness in her ribs directly below her left breast for the past week. This was addressed during her last visit with Dr. Peña on 03/08/06. The pain is getting worse. Is constantly present. Tylenol is not helping to relieve pain. Is not improved with position changes. Affected area is tender to the touch. Onset: worsening Duration: 8 days Associated Sx: No fever noted. Problem list reviewed: YES Recent History: Yes - What was it?: see above. Recent Illness: No Allergies verified: YES Precipitated by: N/A or not addressed Med list reviewed: YES Alleviated by: N/A Immunosuppressed:NO Conclusion / Primary Problem: /Rib pain Protocol(s) Consulted: Per Nursing Judgement PLAN / INTERVENTION Disposition: Referred to clinic - within [address] Chamberlain on 03/15/06. Asked patient tocall back if symptoms worsen in any way prior to appt. Caller verbalizes understanding of disposition? YES Caller agrees to plan? Yes EVALUATION / FOLLOW-UP Source: [facility] RWHXTRANSXRTFSYS Document Id: [id number] documented in this encounter Plan of Treatment Not on filedocumented as of this encounter Visit Diagnoses Not on filedocumented in this encounter
--- OUTSIDE RECORDS SUMMARY | 2022-03-16 15:16 | XMS_ITS | Encounter Summary ---
:1980 Author Organization [facility] Address [address] [place] [address] Care Team Providers Name Role Phone Unavailable Primary Care Provider Unavailable Encounter Details Date Type Department Care Team Description 02/21/2006 Hospital Encounter [facility] XRAY Provider, Histori beatrice Social History Tobacco [...]
--- OUTSIDE RECORDS SUMMARY | 2022-03-16 15:16 | XMS_ITS | Encounter Summary ---
:1980 Author Organization [facility] Address [address] [place] [address] Care Team Providers Name Role Phone Unavailable Primary Care Provider Unavailable Encounter Details Date Type Department Care Team Description 04/12/2006 Hospital Encounter HX [facility] Supa Pena M.D. [address] [place] [phone] (Wo rk) Social History Tobacco [...] encounter Progress Notes Markus Duncan M.D. - 04/12/2006 1:45 PM CST [id number] Pop 05/13/2005,has a lot of pelvic pressure, has been cramping also,JZ Exam normal, group B done wds [facility]: [facility] Document Id: [id number] Electronically signed by Conversion, [facility] Alumni Coordinator [id number] at 09/19/2016 1:13 PM CDT documented in this encounter Miscellaneous Notes Miscellaneous - Markus Duncan M.D. - 04/12/2006 1:45 PM CST [id number] Dulce Lei [address] [place] [id number] [id number] April 20, 2006 Dear Dulce, I am writing to inform you of the results of the laboratory tests you had done recently. HGB 11.5 04/12/2006 normal for females above 11.7 This is slightly low but, in , this is normal. Your Group B Strep culture is negative. Thank you for allowing me to participate in your care. If you have any further questions or problems, please contact me at [phone] in Obstetrics/Gynecology. Sincerely, Markus Duncan M.D. OBSTETRICS/GYNECOLOGY Source: [facility] Document Id: [id number] Electronically signed by Conversion, [facility] Alumni Coordinator [id number] at 09/19/2016 1:13 PM CDT documented in this encounter Plan of Treatment Not on filedocumented as of this encounter Visit Diagnoses Not on filedocumented in this encounter
--- OUTSIDE RECORDS SUMMARY | 2022-03-16 15:16 | XMS_ITS | Encounter Summary ---
:1980 Author Organization [facility] Address [address] [place] [address] Care Team Providers Name Role Phone Unavailable Primary Care Provider Unavailable Encounter Details Date Type Department Care Team Description 03/27/2006 Hospital Encounter HX [facility] Provider, Histor ical Social History Tobacco [...] Progress Notes Conversion, Historical Provider Ser - 03/27/2006 1:45 PM CST [id number] Poor weight gain. Says most days not hungry and if she does eat she usually becomes very nauseated. Declines management advisor appoinment. Will get growth ultrasound KRN Source: [facility] RWHXTRANSXRTFSYS Document Id: [id number] documented in this encounter Plan of Treatment Not on filedocumented as of this encounter Visit Diagnoses Not on filedocumented in this encounter
--- OUTSIDE RECORDS SUMMARY | 2022-03-16 15:16 | XMS_ITS | Encounter Summary ---
:1980 Author Organization [facility] Address [address] [place] [address] Care Team Providers Name Role Phone Unavailable Primary Care Provider Unavailable Encounter Details Date Type Department Care Team Description 03/08/2006 Hospital En[facility] Tamie Luna M.D. Social History Tobacco Use [...] encounter Progress Notes Tamie Kern M.D. - 03/08/2006 3:00 PM CST [id number] Rib tenderness, no liver tenderness, no other s/sx of preeclampsia. Exam otherwise normal. Refilled her zoforan and darvocet.KD Source: [facility] RWHXTRANSXRTFSYS Document Id: [id number] Electronically signed by Conversion, [facility] Head Inspector And Center Marker [id number] at 09/19/2016 4:59 PM CDT documented in this encounter Plan of Treatment Not on filedocumented as of this encounter Visit Diagnoses Not on filedocumented in this encounter
--- OUTSIDE RECORDS SUMMARY | 2022-03-16 15:16 | XMS_ITS | Encounter Summary ---
:1980 Author Organization [facility] Address [address] [place] [address] Care Team Providers Name Role Phone Unavailable Primary Care Provider Unavailable Encounter Details Date Type Department Care Team Description 04/19/2006 Hospital Encounter [facility] Parisa Gracia M.D. [address] [place], [place] [phone] (Wo rk) Social History [...] this encounter Miscellaneous Notes Telephone Encounter - Salma Mcgee R.N. - 04/19/2006 12:00 AM CST [id number] TELEPHONE TRIAGE ENCOUNTER FORM Date: 04/19/2006 PCP: El Chadwick MD Patient Name: Dulce Lei Gender: female : 1980 Age:[age] year old Time: 11:45 AM Phone Numbers: [phone] (home) Pharmacy: [facility] ASSESSMENT Presenting Problem: Vaginal leakage Subjective/objective: Patient called in reporting an increase in the last two days of sticky, yellowish vaginal fluid. She is 36.5 weeks . She denies contractions or abdominal pain. She reportsthat the discharge has a foul odor to it. Onset: gradual Duration: 2 days Associated Sx: No fever noted. denies other problems Problem list reviewed: YES Recent History: Yes - What was it?: Patient states that she has had some vaginal discharge throughout her , but this is different. Recent Illness: Yes - What was it?: exams. Allergiesverified: YES Precipitated by: No Med list reviewed: YES Alleviated by: N/A Immunosuppressed:NO Conclusion / Primary Problem: Vaginal leakage Protocol(s) Consulted: Telephone Triage for Obstetricsand Gynecology. Jonathon 2002 - [id number] PLAN / INTERVENTION Disposition: Referred to clinic - within [address] Cortes for 1:30 today. Caller verbalizes understanding of disposition? YES Caller agrees to plan? Yes EVALUATION / FOLLOW-UP Source: [facility] RWHXTRANSXRTFSYS Document Id: [id number] Electronically signed by Lesley, [facility] Hospitalpaula Tire Buster [id number] at 09/19/2016 7:17 AM CDT documented in this encounter Plan of Treatment Not on filedocumented as of this encounter Visit Diagnoses Not on filedocumented in this encounter
--- OUTSIDE RECORDS SUMMARY | 2022-03-16 15:16 | XMS_ITS | Encounter Summary ---
:1980 Author Organization [facility] Address [address] [place] [address] Care Team Providers Name Role Phone Unavailable Primary Care Provider Unavailable Encounter Details Date Type Department Care Team Description 02/16/2006 Hospital Encounter [facility] Tamie Luna M.D. Social History Tobacco [...] this encounter Miscellaneous Notes Telephone Encounter - Elizabeth Zayas RBessy - 02/16/2006 12:00 AM CST [id number] Pt was seen by you on Monday for an OC ck, had positive yeast and was given diflucan. She states she is not having any relief at all, still very itchy and irritated. Can you provide her something in addition? Next appt is 02/21. Pt is 28 weeks . Rubin in [place] is pharamcy preference.Pt number is [phone] Source: [facility] WindRANSXRTFManaged Methods Document Id: [id number] Electronically signed by Conversion, [facility] Assistant Professor Of Biochemistry [id number] at 09/19/2016 4:59 PM CDT Telephone Encounter - Tamie Kern M.D. - 02/16/2006 12:00 AM CST [id number] I don't want her to use antyhing in her vagina due to possible ruptured memb. I will get her anotherdiflucan. KD Source: [facility]XTRANSXRTFManaged Methods Document Id: [id number] Electronically signed by Conversion, [facility] Assistant Professor Of Biochemistry [id number] at 09/19/2016 4:59 PM CDT Telephone Encounter - Elizabeth Zayas R.N. - 02/16/2006 12:00 AM CST [id number] Comment: pt notified Source: [facility]ITALXTRANSXRTFDNA GamesS Document Id: [id number] Electronically signed by Conversion, [facility] Assistant Professor Of Biochemistry [id number] at 09/19/2016 4:59 PM CDT documented in this encounter Plan of Treatment Not on filedocumented as of this encounter Visit Diagnoses Not on filedocumented in this encounter
--- OUTSIDE RECORDS SUMMARY | 2022-03-16 15:16 | XMS_ITS | Encounter Summary ---
:1980 Author Organization [facility] Address [address] [place] [address] Care Team Providers Name Role Phone Unavailable Primary Care Provider Unavailable Encounter Details Date Type Department Care Team Description 04/19/2006 Hospital En[facility] Parisa Gracia M.D. [address] [place], [place] [phone] (Wo rk) Social History [...] encounter Progress Notes America Cortes M.D. - 04/19/2006 3:30 PM CST [id number] Having increased discharge, thick. Wet mount normal, reassured Cervix C/L/-1. KG [facility]: [facility] RWHXTRANSX[facility] Document Id: [id number] documented in this encounter Plan of Treatment Not on filedocumented as of this encounter Visit Diagnoses Not on filedocumented in this encounter
--- OUTSIDE RECORDS SUMMARY | 2022-03-16 15:16 | XMS_ITS | Encounter Summary ---
:1980 Author Organization [facility] Address [address] [place] [address] Care Team Providers Name Role Phone Unavailable Primary Care Provider Unavailable Encounter Details Date Type Department Care Team Description 03/30/2006 Hospital Encounter [facility]X [facility] XRAY Provider, Histori beatrice Social [...]
--- OUTSIDE RECORDS SUMMARY | 2022-03-16 15:16 | XMS_ITS | Encounter Summary ---
:1980 Author Organization [facility] Address [address] [place] [address] Care Team Providers Name Role Phone Unavailable Primary Care Provider Unavailable Encounter Details Date Type Department Care Team Description 03/21/2006 Hospital Encounter [facility] Tamie Luna M.D. Social History [...] encounter Progress Notes Tamie Kern M.D. - 03/21/2006 10:45 AM CST [id number] No movement. NST is reactive and + movement noted. Discussed her hyperemeisis and suggest fluids and suppliments. RTC PRN. KD Source: [facility] RWHXTRANSXRTFSYS Document Id: [id number] Electronically signed by Conversion, [facility] Order Entry Clerk [id number] at 09/19/2016 1:13 PM CDT documented in this encounter Plan of Treatment Not on filedocumented as of this encounter Visit Diagnoses Not on filedocumented in this encounter
--- OUTSIDE RECORDS SUMMARY | 2022-03-16 15:16 | XMS_ITS | Encounter Summary ---
:1980 Author Organization [facility] Address [address] [place] [address] Care Team Providers Name Role Phone Unavailable Primary Care Provider Unavailable Encounter Details Date Type Department Care Team Description 03/21/2006 Hospital Encounter HX [facility] Tamie Luna M.D. Social History Tobacco [...] Telephone Encounter - Salma Mcgee R.N. - 03/21/2006 12:00 AM CST [id number] TELEPHONE TRIAGE ENCOUNTER FORM Date: 03/21/2006 PCP: El Chadwick MD Patient Name: Dulce Lei Gender: female : 1980 Age: [age] year old Time: 8:37 AM Phone Numbers: [phone] (home) Pharmacy: [facility] ASSESSMENT Presenting Problem: Baby not moving Subjective/objective: Patient called in stating that she is 7 1/2 months and has not felt her baby move since yesterday morning. She denies any other problems. She is very concerned and would like to be seen. Onset: sudden Duration: 1 days Associated Sx: No fever noted. denies other problems Problem list reviewed: YES Recent History: No. Recent Illness: Yes - What was it?: Routine visits Allergies verified: YES Precipitated by: No Med list reviewed: YES Alleviated by: N/A Immunosuppressed:NO Conclusion / Primary Problem: No baby movement Protocol(s) Consulted: Per Nursing Judgement PLAN / INTERVENTION Disposition: Referred patient to OB office now. Appointment made with Dr. Peña for 10:45 this morning. Caller verbalizes understanding of disposition? YES Caller agrees to plan? Yes EVALUATION / FOLLOW-UP Source: [facility] RWHXTRANSXRTFSYS Document Id: [id number] Electronically signed by Conversion, [facility] Scientific Specialist [id number] at 09/19/2016 1:13 PM CDT documented in this encounter Plan of Treatment Not on filedocumented as of this encounter Visit Diagnoses Not on filedocumented in this encounter
--- OUTSIDE RECORDS SUMMARY | 2022-03-16 15:16 | XMS_ITS | Encounter Summary ---
:1980 Author Organization [facility] Address [address] [place] [address] Care Team Providers Name Role Phone Unavailable Primary Care Provider Unavailable Encounter Details Date Type Department Care Team Description 03/14/2006 Hospital Encounter HX NO MAPPING Madeline Patel M.D. Social History Tobacco Use Types Packs/Day [...]
--- OUTSIDE RECORDS SUMMARY | 2022-03-16 15:16 | XMS_ITS | Encounter Summary ---
:1980 Author Organization [facility] Address [address] [place] [address] Care Team Providers Name Role Phone Unavailable Primary Care Provider Unavailable Encounter Details Date Type Department Care Team Description 04/24/2006 Hospital Encounter HX [facility] Krista Adames, APR N, C.N.P. [address], [place] [phone] (Wo rk) Social History [...] as of this encounter Progress Notes Krista Banks C.N.P., R.N. - 04/24/2006 11:30 AM CST [id number] Gestational Age: 37w 2d She states that she is getting ready at home. Preregistration: Sent in. Childbirth Ed. Classes attended: Early y, Baby Care/Nutrition y, Labor and delivery y, , Review n, Sibling n Carseat: Has one ready to go, knows how to use it. Plans to bottlefeed her baby Baby Doctor: Maria De Jesus Circumcision: na Control plans: Plans to use the shot. Financial issues: No problems. Understands signs and symptoms of labor, knows phone numbers to call, where to go when in labor, etc. plan discussed. yes Discussed warning signs of . Referral status: none Assessment and Plan: Group B strep, Hgb. Will notify of results. Weekly visits with MD until delivery. Enc. to call with any concerns. Source: [facility] Document Id: [id number] Electronically signed by Conversion, [facility] Cash Register Balancer [id number] at 09/19/2016 7:17 AM CDT Krista Banks C.N.P., R.N. - 04/24/2006 11:30 AM CST [id number] Gestational Age: 37w 2d ALEXANDER 05/13/06 Zofran Rx refilled. No complaints. Has disability paperwork, given to cashier self service gasoline. Source: [facility] Document Id: [id number] Electronically signed by Conversion, [facility] Cash Register Balancer [id number] at 09/19/2016 7:17 AM CDT documented in this encounter Plan of Treatment Not on filedocumented as of this encounter Visit Diagnoses Not on filedocumented in this encounter
--- OUTSIDE RECORDS SUMMARY | 2022-03-16 15:16 | XMS_ITS | Encounter Summary ---
:1980 Author Organization [facility] Address [address] [place] [address] Care Team Providers Name Role Phone Unavailable Primary Care Provider Unavailable Encounter Details Date Type Department Care Team Description 02/21/2006 Hospital Encounter HX NO MAPPING Tamie Peña M.D. Social History Tobacco Use Types Packs/Day [...]
--- OUTSIDE RECORDS SUMMARY | 2022-03-16 15:16 | XMS_ITS | Encounter Summary ---
:1980 Author Organization [facility] Address [address] [place] [address] Care Team Providers Name Role Phone Unavailable Primary Care Provider Unavailable Encounter Details Date Type Department Care Team Description 02/21/2006 Hospital Encounter HX [facility] Tamie Luna M.D. Social History Tobacco [...] encounter Progress Notes Tamie Kern M.D. - 02/21/2006 2:30 PM CST [id number] Quick Note: The patient was notified of her lab results. Source: [facility] Document Id: [id number] Electronically signed by Conversion, [facility] Sawsmith [id number] at 09/19/2016 4:59 PM CDT Tamie Kern M.D. - 02/21/2006 2:30 PM CST [id number] No leaking, or bleeding, no contraction and baby is active. RENÉE today = 10.9 Aminsure last week is neg today repeated. If Negative can assume leak has resealed. I will call her with results and plan. KD Had neg amnisure - Pt informed. KD Source: [facility]XRT[facility] Document Id: [id number] Electronically signed by Conversion, [facility] Sawsmith [id number] at 09/19/2016 4:59 PM CDT documented in this encounter Plan of Treatment Not on filedocumented as of this encounter Visit Diagnoses Not on filedocumented in this encounter
--- OUTSIDE RECORDS SUMMARY | 2022-03-16 15:16 | XMS_ITS | Encounter Summary ---
:1980 Author Organization [facility] Address [address] [place] [address] Care Team Providers Name Role Phone Unavailable Primary Care Provider Unavailable Encounter Details Date Type Department Care Team Description 03/30/2006 Hospital Encounter HX NO MAPPING Krista Banks APRN, C.N.P. [address] [place], [place] [phone] (Wo rk) Social History [...]
--- OUTSIDE RECORDS SUMMARY | 2022-03-16 15:16 | XMS_ITS | Encounter Summary ---
:1980 Author Organization [facility] Address [address] [place] [address] Care Team Providers Name Role Phone Unavailable Primary Care Provider Unavailable Encounter Details Date Type Department Care Team Description 03/15/2006 Hospital Encounter HX [facility] OBGYN Provider, Histor ical Social [...] Progress Notes Conversion, Historical Provider Ser - 03/15/2006 9:45 AM CST [id number] Pop 05/13/2006,has terrible right side pain x 2 weeks, is taking vicodin for pain, seen in er 03/14/2006,JZ C/o right sided pain, nothing makes it better/worse, constant. Eval in ER yesterday negative. RUQ u/s negative. Exam shows point TTP over lower right ribs on side. Suspect musculoskeletal pain. Heat/ice prn, darvocet as needed. No lof/vb/ctx, +gFM. Source: [facility] RWHXTRANSXRTFSYS Document Id: [id number] documented in this encounter Plan of Treatment Not on filedocumented as of this encounter Visit Diagnoses Not on filedocumented in this encounter
--- OUTSIDE RECORDS SUMMARY | 2022-03-16 15:17 | XMS_ITS | Encounter Summary ---
:1980 Author Organization [facility] Address [address] [place] [address] Care Team Providers Name Role Phone Unavailable Primary Care Provider Unavailable Encounter Details Date Type Department Care Team Description 09/29/2005 Hospital Encounter HX [facility] Krista Adames, APR N, C.N.P. [address] [place], [place] [phone] (Wo rk) Social History [...] Progress Notes Conversion, Historical Provider Ser - 09/29/2005 8:45 AM CDT [id number] Genetic Screening: Club feet: s/o otherwise negative for defects Infectious Diseases: Denies any history of sexually transmitted infections. Pap smears have been normal. Sexual History together with s/o Anup 4 years S: Dulce is a 25 year old y/o, G 1, P 0. She is Gestational Age: 7w 5d weeks today according to LMP, irregular. She lives in [place] with mother and s/o. Dulce has been feeling nauseated, tired. 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 Family is close and supportive. Misc. Assessment: vitamins: Is taking them. Diet: Regular diet, no history of an eating disorder. Adequate calcium intake discussed. She has notbeen referred to meet with the production stage manager. Transportation issues: none Safe relationship: She feels safe in current relationship. She has no history of abusive relationhips. Financial Concerns: money is tight Insurance: [employer] Service/Public Health: ?WIC She is a smoker, 3-4 cigs She is planning to bottlefeed her baby. Discussed wt. gain and exercise, caffeine, cat litter, choosing a baby doctor, toxic substances. O: Physical Exam: Appropriate affect and grooming. Good eye contact during interview. There is no Lymph adenopathy, or thyromegaly. Lungs are clear bilaterally, heart has regular rate and rhythm. Breasts are slightly tender, related to the and are without masses. Abdomen is soft without masses. External genitalia is without lesions, discharge is WNL. Pap smear not obtained. Recent normal per patient, Meno. CT/GC obtained. Cervix appeared normal. Fundal height is consistant with dates, no adenexal masses. Early dating US was not obtained at an earlier date. A: 1. Appropriate and health seeking behaviors toward her 2. Verbalizes understanding of care schedule, and the importance of coming to each visit as scheduled. 3. Supportive relationship with her s/o and family Plan:1. Discussed materials in the new OB folder, proper diet, exercise and enc. her to abstain fromalcohol. We also discussed childbirth ed. classes, she was given dates today. 2. Her next appointment will be in 4 weeks with OB MD. She was enc. to call with any questions. Referrals: None Source: [facility] Document Id: [id number] Krista Banks C.N.P., R.N. - 09/29/2005 8:45 AM CDT [id number] Gestational Age: 7w 5d ALEXANDER 05-13-05 New OB Visit with positive home test. Was confirmed with Dr. Reece in [place], with unsure LMP dates. Does have hx/o irregular periods, migraines, and immune deficiency. BR Conceived on ocps:sono ordered for dates. Has an immune deficiency, unsure of name or any particular details. Will sign STEPAN for records. Education, labs and exam complete. HAMLET Source: [facility] Document Id: [id number] Electronically signed by [facility], [facility] Copyholder [id number] at 09/19/2016 12:16 PM CDT documented in this encounter Miscellaneous Notes Miscellaneous - Krista Banks C.N.P., R.N. - 09/29/2005 8:45 AM CDT [id number] [facility] [address] [place] [address] October 04, 2005 MR#: [id number] Dear Dulce, I am happy to inform you of the results of the lab work we did at your recent OB visit. Please transfer this information to your Care Card. Blood Type - O Rh Status - Positive Hemoglobin - 12.8 Normal is 11.0 - 16.0 Rubella Status - Immune Hepatitis B screen - Negative HIV screen - Negative Syphilis screen - Negative Chlamydia/Gonorrhea Screen - Negative Urine test - Negative If you have any questions about your results feel free to give me a call at [phone]. Sincerely, Krista Banks RN, ELECTRICIAN SUBSTATION, hairspring inspector [facility] Source: [facility] Document Id: [id number] documented in this encounter Plan of Treatment Not on filedocumented as of this encounter Visit Diagnoses Not on filedocumented in this encounter
--- OUTSIDE RECORDS SUMMARY | 2022-03-16 15:17 | XMS_ITS | Encounter Summary ---
:1980 Author Organization [facility] Address [address] [place] [address] Care Team Providers Name Role Phone Unavailable Primary Care Provider Unavailable Encounter Details Date Type Department Care Team Description 10/05/2005 [facility] XRAY Provider, Histori beatrice Social History [...]
--- OUTSIDE RECORDS SUMMARY | 2022-03-16 15:17 | XMS_ITS | Encounter Summary ---
:1980 Author Organization [facility] Address [address] [place] [address] Care Team Providers Name Role Phone Unavailable Primary Care Provider Unavailable Encounter Details Date Type Department Care Team Description 01/31/2006 Hospital Encounter HX [facility] LAB Provider, Historic al Social History Tobacco Use [...]
--- OUTSIDE RECORDS SUMMARY | 2022-03-16 15:17 | XMS_ITS | Encounter Summary ---
:1980 Author Organization [facility] Address [address] [place] [address] Care Team Providers Name Role Phone Unavailable Primary Care Provider Unavailable Encounter Details Date Type Department Care Team Description 01/12/2006 Hospital Encounter HX NO MAPPING Vaughn Perales M.D. [address] [place] [phone] (Wo rk) Social History Tobacco [...] Progress Notes Conversion, Historical Provider Ser - 01/12/2006 7:45 PM CDT [id number] SUBJECTIVE: The patient presents with a several day to week history of cough which is not improving and continues to get worse. Denies any wheezing or shortness of breath. Has had some mild low grade fever. Has not responded to over the counter treatment regimen. OBJECTIVE: Patient is alert, oriented, no acute distress. Vital signs as noted. Eyes - normal lids and conjunctivae. Ears - normal TM's. Throat - normal. Neck - supple without lymphadenopathy. Lungs - normal respiratory effort. Clear to auscultation and percussion throughout. ASSESSMENT: 1. Bronchitis. PLAN: 1. Z-Dragan. Vaughn Perales M.D./manoj Source: [facility] RWHXTRANSXRTFSYS Document Id: [id number] documented in this encounter Plan of Treatment Not on filedocumented as of this encounter Visit Diagnoses Not on filedocumented in this encounter
--- OUTSIDE RECORDS SUMMARY | 2022-03-16 15:17 | XMS_ITS | Encounter Summary ---
:1980 Author Organization [facility] Address [address] [place] [address] Care Team Providers Name Role Phone Unavailable Primary Care Provider Unavailable Encounter Details Date Type Department Care Team Description 12/15/2005 Hospital Encounter HX [facility] OBGYN Provider, Histor ical Social [...] Progress Notes Conversion, Historical Provider Ser - 12/15/2005 2:00 PM CDT [id number] Ms. Lei comes in today for a possible bladder infection. She is a 25 year old G1 @ 18w5d. She has noticed dysuria, frequency and urgency. She reports vaginal d/c earlier in the week, no c/o d/c nowor vaginal irritation/burning. She denies F/C, hematuria. She is a 25 year old, Obstetric History T0 P0 TAB0 SAB0 E0 M0 L0 with a LMP = Patient's LMP from OB Dating Form was 08/06/2005. 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 SSE: Small amount nl appearing d/c in vault. No vaginal erythema. LABS: Ua showes: no wbc, no rbc, few epi, few bact, tr leuk esterase, pH 7.5 Wet prep: No clue cells, yeast or trichomonads. PH 6.0, neg whiff test, rare WBCs. Assesment: UTI in Plan: Antibiotic: Macrobid, push fluids and rest. Call or come in if increseing pain, fever or flankpain. Source: [facility] Document Id: [id number] Conversion, Historical Provider Ser - 12/15/2005 2:00 PM CDT [id number] Gestational Age: 18w 5d ALEXANDER 05/13/06 C/O frquency with urination and vaginal itching with foul odor x 1 week. Also c/o lower back pain. BR See progress note. Treat for UTI with macrobid, culture pending. Source: [facility] Document Id: [id number] documented in this encounter Plan of Treatment Not on filedocumented as of this encounter Visit Diagnoses Not on filedocumented in this encounter
--- OUTSIDE RECORDS SUMMARY | 2022-03-16 15:17 | XMS_ITS | Encounter Summary ---
:1980 Author Organization [facility] Address [address] [place] [address] Care Team Providers Name Role Phone Unavailable Primary Care Provider Unavailable Encounter Details Date Type Department Care Team Description 11/02/2004 Hospital Encounter HX [facility] XRAY Provider, Histori beatrice Social History Tobacco [...] Progress Notes Conversion, Historical Provider Ser - 11/02/2004 12:00 AM CDT [id number] Addended by: JAYDON EDWARDS on: 11/11/2004 12:55:05 PM Modules accepted: Orders Source: [facility] Document Id: [id number] documented in this encounter Plan of Treatment Not on filedocumented as of this encounter Visit Diagnoses Not on filedocumented in this encounter
--- OUTSIDE RECORDS SUMMARY | 2022-03-16 15:17 | XMS_ITS | Encounter Summary ---
:1980 Author Organization [facility] Address [address] [place] [address] Care Team Providers Name Role Phone Unavailable Primary Care Provider Unavailable Encounter Details Date Type Department Care Team Description 11/16/2004 Hospital Encounter HX NO MAPPING Provider, Historical [...]
--- OUTSIDE RECORDS SUMMARY | 2022-03-16 15:17 | XMS_ITS | Encounter Summary ---
:1980 Author Organization [facility] Address [address] [place] [address] Care Team Providers Name Role Phone Unavailable Primary Care Provider Unavailable Encounter Details Date Type Department Care Team Description 01/10/2006 Hospital Encounter HX [facility] Krista Adames, APR N, C.N.P. [address] [place], [place] [phone] (Wo rk) Social History [...] of this encounter Miscellaneous Notes Miscellaneous - Krista Banks C.NKurtis, R.N. - 01/10/2006 12:00 AM CDT [id number] Date: 01/11/2006 Name: Dulce Lei Birthdate: 1980 The patient was seen at: [facility] on 12-30-05 due to related complications. Krista Banks RN, BUILD AND RELEASE MANAGER OBSTETRICS/GYNECOLOGY [facility] Source: [facility] Document Id: [id number] Electronically signed by Conversion, [facility] Cinder Dump Crane Operator [id number] at 09/19/2016 2:16 PM CDT Telephone Encounter - Sanam Yates L.P.N. - 01/10/2006 12:00 AM CDT [id number] She is needing a letter stating that she was seen in the ED on 12/30/05, ill OB. Her work is needinga letter stating that she was seen. Could a letter be sent to her home address. Thank You! Source: [facility]XRT[facility] Document Id: [id number] Electronically signed by Conversion, [facility] Cinder Dump Crane Operator [id number] at 09/19/2016 2:16 PM CDT documented in this encounter Plan of Treatment Not on filedocumented as of this encounter Visit Diagnoses Not on filedocumented in this encounter
--- OUTSIDE RECORDS SUMMARY | 2022-03-16 15:17 | XMS_ITS | Encounter Summary ---
:1980 Author Organization [facility] Address [address] [place] [address] Care Team Providers Name Role Phone Unavailable Primary Care Provider Unavailable Encounter Details Date Type Department Care Team Description 02/11/2006 Hospital Encounter H[facility] Supa Pena M.D. [address] [place] [phone] (Wo rk) Social History Tobacco [...] as of this encounter Progress Notes Markus uDncan M.D. - 02/11/2006 12:00 AM CDT [id number] Dulce is a 25 year old white female, , who is 26w 6d and had ruptured bag of garcia. She noted being wet for about 3 hours before coming to the hospital. Her pad, fluid on the peirneum, and reaccumulation of fluid on a new pad, are all nitrozine positive. She is not having any contractions. Her vitals are normal. Baby is moving and FHT are normal. 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 Past Surgical History Procedure Date Remove tonsils/adenoids,<12 y/o age 14 Tonsillectomy and adenoidectomy < age 14 Rw ent (abstracted) 09/13/01 Sinus surgery x 2 Rw ent (abstracted) age 8 tubes placed as child Current outpatient prescriptions Medication Sig FLINTSTONES COMPLETE OR 2 tablets daily ZOFRAN ODT 4 MG OR TBDP 1-2 TABLETS TWICE DAILY PRN COLACE 100 MG OR CAPS 1-2 CAPSULES DAILY DARVOCET-N 100 100-650 MG OR TABS 1 TABLET EVERY 4 HOURS NEEDED VITAMINS OR None Entered ALLERGIES: Quinolones Family History Problem Relation Respiratory Maternal Uncle Allergies Maternal Grandmother as an adult/seasonal Diabetes Maternal Grandfather Heart Maternal Uncle [place] x 3 Heart Maternal Grandfather [place] s/p bypass surgery Hypertension Maternal Grandfather Hypertension Maternal Uncle Thyroid Maternal Uncle GI Father diverticulitis Stroke Maternal Uncle Lipids Maternal Aunt REVIEW OF SYSTEMS: Otherwise negative unless specified in HPI. 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 VITALS: wt 188, BP 100/60, afeb Neruo: grossly intact EYES: GLEN, EOM's intact. ENT: oral cavity normal, no neck nodes, thyroid not enlarged, neck supple Lung CTA, no wheezing, easy respairations Heart: RRR, S1 and S2 clear, no murmur Back: no spinal or CVA tenderness ABD: soft, nontender, gravid uterus with size consistant with dates Pelvic: nitrozine positive fluid at vag opening. Cx is not checked. EXT: no edema, calf tenderness or significant varicosities Skin: no lesions of concern Assessment: 26w 6d gestation with ruptured membranes, not in labor Plan: IV, PCN Betamethasone, 2 doses 24 hr apart Bed rest, temp hourly ultrasound Dulce understands the need to not smoke any more. Transfer to NICU hospital if contractions start. Will reassess if still leaking fluid in 48 hours. Source: [facility] RWMCHXTRANSXRTFSYS Document Id: [id number] Electronically signed by Conversion, [facility] Pipeline Systems Operator [id number] at 09/19/2016 4:24 PM CDT documented in this encounter Plan of Treatment Not on filedocumented as of this encounter Visit Diagnoses Not on filedocumented in this encounter
--- OUTSIDE RECORDS SUMMARY | 2022-03-16 15:17 | XMS_ITS | Encounter Summary ---
:1980 Author Organization [facility] Address [address] [place] [address] Care Team Providers Name Role Phone Unavailable Primary Care Provider Unavailable Encounter Details Date Type Department Care Team Description 10/11/2005 Hospital Encounter [facility] Krista Adames, APR N, C.N.P. [address] [place], [place] [phone] (Wo rk) Social History [...] encounter Miscellaneous Notes Miscellaneous - Krista Banks CLashawnNLashawnP., R.N. - 10/11/2005 12:00 AM CDT [id number] Dulce Lei [facility] [address] [place] [address] [phone] October 11, 2005 Dear Ms. Lei: I am writing to inform you the results of the laboratory tests you had done during your recent visitto the clinic. Your results included (normal values are in parenthesis): Your OB ultrasound was normal. The due date is unchanged: May 13, 2006. It was a pleasure to see you in the clinic. If you have any further questions or problems, please contact our office at [phone]. Sincerely, Krista Banks RN, CONTACT CENTER DIRECTOR Dept. DEFENSE TRAVEL ADMINISTRATOR [facility] Services Source: [facility] Document Id: [id number] Electronically signed by Lesley, [facility] Tobacco Classer [id number] at 09/19/2016 12:16 PM CDT documented in this encounter Plan of Treatment Not on filedocumented as of this encounter Visit Diagnoses Not on filedocumented in this encounter
--- OUTSIDE RECORDS SUMMARY | 2022-03-16 15:17 | XMS_ITS | Encounter Summary ---
:1980 Author Organization [facility] Address [address] [place] [address] Care Team Providers Name Role Phone Unavailable Primary Care Provider Unavailable Encounter Details Date Type Department Care Team Description 07/26/2001 Hospital Encounter HX [facility] INTERNMED Matt Chadwick M.D. [address] [place] [phone] (Wo rk) Social History Tobacco [...] Miscellaneous - Conversion, Historical Provider Ser - 07/26/2001 12:00 AM CDT [id number] July 26, 2001 Jack Wall M.D. [facility] [place] [address] RE: Dulce Lei : 84 EMR# [id number] Dear Cornelio: Thank you for the referral of Dulce Lei who was seen in Allergy Clinic on 07-24-01. 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 She did have allergy testing at age 8, which the mother recalls being negative at that time. The mother also thinks that she may have had tests of her immune system done in [place] sometime in the last year but isn't certain. As I understand it, Dulce, is planning on more extensive sinus surgery in the near future and is in today for repeat allergy testing. Her physical exam was remarkable mainly for considerable rhinitis with edema and mucosal erythema but no rhinorrhea. The remainder of her exam was unremarkable. Skin testing was performed to all the standard inhalants by prick puncture method and by intradermal method and were all negative. I concluded that Dulce does have chronic sinusitis most likely associated with nonallergic rhinitis. I have requested records of any immune workup be sent for my review and if none has been done we will call her back for at least some screening immune workup. In the meantime, she will continue the medications that she has been on in the past and will return to see you for follow-up as planned. I will contact you with any other information that arises if further testing is done. Thank you for the opportunity to evaluate her. Sincerely, El Chadwick M.D. Department of Allergy [facility] Source: [facility]XRT[facility] Document Id: [id number] documented in this encounter Plan of Treatment Not on filedocumented as of this encounter Visit Diagnoses Not on filedocumented in this encounter
--- OUTSIDE RECORDS SUMMARY | 2022-03-16 15:17 | XMS_ITS | Encounter Summary ---
:1980 Author Organization [facility] Address [address] [place] [address] Care Team Providers Name Role Phone Unavailable Primary Care Provider Unavailable Encounter Details Date Type Department Care Team Description 11/12/2004 Hospital Encounter HX NO MAPPING Yandel Marshall M.D. [address] [place] [phone] (Wo rk) Social History Tobacco [...]
--- OUTSIDE RECORDS SUMMARY | 2022-03-16 15:17 | XMS_ITS | Encounter Summary ---
:1980 Author Organization [facility] Address [address] [place] [address] Care Team Providers Name Role Phone Unavailable Primary Care Provider Unavailable Encounter Details Date Type Department Care Team Description 11/02/2005 Hospital Encounter [facility] Lexus Luna M.D. Social History Tobacco Use [...] encounter Progress Notes Lexus Naqvi M.D. - 11/02/2005 9:30 AM CDT [id number] Addended by: LEXUS NAQVI on: 11/02/2005 10:14:10 AM Modules accepted: Orders Source: [facility] Document Id: [id number] Electronically signed by Conversion, [facility] Recreation Specialist [id number] at 09/19/2016 12:49 PM CDT Lexus Naqvi M.D. - 11/02/2005 9:30 AM CDT [id number] Still havign N/V. Did well for a few days after IVF last week. Taking PO Zofran but still thowing updue to migraines. 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 Records are not clear will discuss further and get work up as indicted. HERNAN. Source: [facility] Document Id: [id number] Electronically signed by Conversion, [facility] Recreation Specialist [id number] at 09/19/2016 12:49 PM CDT documented in this encounter Plan of Treatment Not on filedocumented as of this encounter Visit Diagnoses Not on filedocumented in this encounter
--- OUTSIDE RECORDS SUMMARY | 2022-03-16 15:17 | XMS_ITS | Encounter Summary ---
:1980 Author Organization [facility] Address [address] [place] [address] Care Team Providers Name Role Phone Unavailable Primary Care Provider Unavailable Encounter Details Date Type Department Care Team Description 08/14/2002 Hospital Encounter HX NO MAPPING Provider, Historical [...] Miscellaneous - Conversion, Historical Provider Ser - 08/14/2002 12:00 AM CDT [id number] Records faxed to Galo Gleason of [phone] for the following dates clinic enc note and a llergan skin tests of 07-24-01. carmen (4pgs) [place] Source: [facility] Document Id: [id number] documented in this encounter Plan of Treatment Not on filedocumented as of this encounter Visit Diagnoses Not on filedocumented in this encounter
--- OUTSIDE RECORDS SUMMARY | 2022-03-16 15:17 | XMS_ITS | Encounter Summary ---
:1980 Author Organization [facility] Address [address] [place] [address] Care Team Providers Name Role Phone Unavailable Primary Care Provider Unavailable Encounter Details Date Type Department Care Team Description 10/24/2005 Hospital Encounter HX [facility] Krista Adames, APR N, C.N.P. [address] [place], [place] [phone] (Wo rk) Social History [...] Encounter - Conversion, Historical Provider Ser - 10/24/2005 12:00 AM CDT [id number] TELEPHONE TRIAGE ENCOUNTER FORM Date: 10/24/2005 PCP: El Chadwick MD Patient Name: Dulce Lei Gender: female : 1980 Age: [age] year old Time: 9:20 AM Phone Numbers: [phone] (home) Pharmacy: [facility] ASSESSMENT Presenting Problem: /vomiting Subjective/objective: Patient is approx. 11 weeks . Was seen last evening at the [facility] for hyper-emises. Was told to follow up with OB provider today. Was treated in ER with IV fluids. Was given a Rx for Zofran. Has not taken this med. As of yet. States that she is feeling much better today. Will try to eat and drink something for breakfast. Onset: Has been nauseous with most of her thus far. Duration: several weeks Associated Sx: No fever noted. N/A or not addressed Problem list reviewed: YES Recent History: No. Recent Illness: Yes - What was it?: Hyper-emesis Allergies verified: YES Precipitated by: Yes - What is it? Med list reviewed: YES Alleviated by: IV fluids Immunosuppressed:NO Conclusion / Primary Problem: Hyper-emesis with Protocol(s) Consulted: Per Nursing Judgement PLAN / INTERVENTION Disposition: Home Care advice per protocol Advised patient to call back if she starts vomiting again. Caller verbalizes understanding of disposition? YES Caller agrees to plan? Yes EVALUATION / FOLLOW-UP Source: [facility] Document Id: [id number] documented in this encounter Plan of Treatment Not on filedocumented as of this encounter Visit Diagnoses Not on filedocumented in this encounter
--- OUTSIDE RECORDS SUMMARY | 2022-03-16 15:17 | XMS_ITS | Encounter Summary ---
:1980 Author Organization [facility] Address [address] [place] [address] Care Team Providers Name Role Phone Unavailable Primary Care Provider Unavailable Encounter Details Date Type Department Care Team Description 12/30/2005 - Hospital Encounter HX NO MAPPING Juliano Molina, 12/31/2005 Tushar Correa Social History Tobacco Use Types Packs/Day Years [...]
--- OUTSIDE RECORDS SUMMARY | 2022-03-16 15:17 | XMS_ITS | Encounter Summary ---
:1980 Author Organization [facility] Address [address] [place] [address] Care Team Providers Name Role Phone Unavailable Primary Care Provider Unavailable Encounter Details Date Type Department Care Team Description 10/28/2005 Hospital Encounter HX [facility] Tamie Luna M.D. Social History Tobacco Use [...] encounter Progress Notes Tamie Kern M.D. - 10/28/2005 10:00 AM CDT [id number] Quick Note: The patient was notified of her lab results. Source: [facility] Document Id: [id number] Electronically signed by Conversion, [facility] Rabbet Operator [id number] at 09/19/2016 12:49 PM CDT Tamie Kern M.D. - 10/28/2005 10:00 AM CDT [id number] Gestational Age: 11w 6d ALEXANDER 05/[birth year]/06 Was seen in [place] ER on Monday10-25-05 for hyperemesis. Was hydrated with that visit and given Rx for Zofran which she started on 10/25/05. BR Behzad po now - cont meds willcheck TSH Will get immunolgy eval for clarification or immunodefficiency RTC next week to recheck on hyperemisis. KD Source: [facility] Document Id: [id number] Electronically signed by Conversion, [facility] Rabbet Operator [id number] at 09/19/2016 12:49 PM CDT documented in this encounter Miscellaneous Notes Miscellaneous - Tamie Kern M.D. - 10/28/2005 10:00 AM CDT [id number] [facility]ce [facility] [address] [place] [id number] October 28, 2005 Dear Ms. Lei: I am writing to inform you the results of the laboratory tests you had done during your recent visitto the clinic. Your results included : thyroid test is NORMAL. It was a pleasure to see you in the clinic. If you have any further questions or problems, please contact our office at [phone]. Sincerely, Tamie Kern MD Dept. WHEEL SHOP SUPERVISOR [facility] Source: [facility]XTRANSXRTFSYS Document Id: [id number] Electronically signed by Conversion, [facility] Rabbet Operator [id number] at 09/19/2016 12:49 PM CDT documented in this encounter Plan of Treatment Not on filedocumented as of this encounter Visit Diagnoses Not on filedocumented in this encounter
--- OUTSIDE RECORDS SUMMARY | 2022-03-16 15:17 | XMS_ITS | Encounter Summary ---
:1980 Author Organization [facility] Address [address] [place] [address] Care Team Providers Name Role Phone Unavailable Primary Care Provider Unavailable Encounter Details Date Type Department Care Team Description 01/31/2006 Hospital Encounter HX [facility] Krista Adames, APR N, C.N.P. [address] [place], [place] [phone] (Wo rk) Social History [...] this encounter Progress Notes Krista Banks C.N.P., R.NLashawn - 01/31/2006 8:15 AM CDT [id number] Quick Note: Msg left to return call Source: [facility]XTRANSSonicSurg InnovationsYS Document Id: [id number] Electronically signed by Conversion, [facility] Passenger Agent [id number] at 09/19/2016 4:24 PM CDT Krista Banks C.N.P., RJennifer. - 01/31/2006 8:15 AM CDT [id number] Quick Note: Notifed of Hgb result, will start Fe daily Source: [facility] Document Id: [id number] Electronically signed by Conversion, [facility] Passenger Agent [id number] at 09/19/2016 4:24 PM CDT Conversion, Historical Provider Ser - 01/31/2006 8:15 AM CDT [id number] Dulce is here for her 26 week visit. She is Gestational Age: 25w 3d weeks today. 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 Dulce understands the following: Definition of labor: Yes Warning signs of labor: Yes Palpatation of uterine contractions: Yes Warning signs of complications: Yes Weight gain: Yes Nutrition choices (review intake and risks): Yes Prevention/treatment of constipation (increase fluids/fiber): Yes Discontinue smoking, drug use, ETOH use: Yes, smoking 3 cigs per day Decrease strenuous activities (increase rest): Yes Consider work/activity/environmental hazards: Yes Travel recommendations: Yes Sexual activity/intercourse: Yes Avoid nipple stimulation: Yes Infant feeding plans: Yes Inverted nipple treatment: Not Asked Car seat: Yes Other topics discussed: none Next appointment: 2,4 weeks Source: [facility]XTRANSXRTFSYS Document Id: [id number] Krista Banks C.N.P., R.N. - 01/31/2006 8:15 AM CDT [id number] Gestational Age: 25w 3d ALEXANDER 05-[birth year]-06 1 hr gtt and hgb done today. Preadmission and certificate information given. BR Continues to have nausea, taking Zofran PRN. Bronchitis is improving. HAMLET Source: [facility]XTRANSXRTFSY Document Id: [id number] Electronically signed by Conversion, [facility] Passenger Agent [id number] at 09/19/2016 4:24 PM CDT documented in this encounter Miscellaneous Notes Miscellaneous - Krista Banks C.N.P., R.N. - 01/31/2006 8:15 AM CDT [id number] Date: 01/31/2006 Name: Dulce Lei Birthdate: 1980 The patient was seen at: [facility] on 01-10-06, was seen for bronchitis and complications of including nausea and vomiting. Krista Banks RN, DIRECTOR PROCESS OBSTETRICS/GYNECOLOGY [facility] Source: [facility]XRT[facility] Document Id: [id number] Electronically signed by Conversion, [facility] Passenger Agent [id number] at 09/19/2016 4:24 PM CDT documented in this encounter Plan of Treatment Not on filedocumented as of this encounter Visit Diagnoses Not on filedocumented in this encounter
--- OUTSIDE RECORDS SUMMARY | 2022-03-16 15:17 | XMS_ITS | Encounter Summary ---
:1980 Author Organization [facility] Address [address] [place] [address] Care Team Providers Name Role Phone Unavailable Primary Care Provider Unavailable Encounter Details Date Type Department Care Team Description 11/02/2005 Hospital Encounter [facility] INTERNMED Provider, [facility] Social History Tobacco Use Types Packs/Day Years [...]
--- OUTSIDE RECORDS SUMMARY | 2022-03-16 15:17 | XMS_ITS | Encounter Summary ---
:1980 Author Organization [facility] Address [address] [place] [address] Care Team Providers Name Role Phone Unavailable Primary Care Provider Unavailable Encounter Details Date Type Department Care Team Description 03/07/2005 Hospital Encounter HX NO MAPPING Provider, Historical [...]
--- OUTSIDE RECORDS SUMMARY | 2022-03-16 15:17 | XMS_ITS | Encounter Summary ---
:1980 Author Organization [facility] Address [address] [place] [address] Care Team Providers Name Role Phone Unavailable Primary Care Provider Unavailable Encounter Details Date Type Department Care Team Description 01/03/2006 Hospital Encounter HX [facility] XRAY Provider, Histori beatrice Social History [...] Miscellaneous - Krista Banks C.N.P., R.N. - 01/03/2006 9:45 AM CDT [id number] Dulce Lei [facility] [address] [place] [id number] January 09, 2006 Dear Ms. Lei: I am writing to inform you the results of the laboratory tests you had done during your recent visitto the clinic. Your results included (normal values are in parenthesis): Your OB ultrasound was normal. The anatomyappeared normal (remember the ultrasound can only find about 50% of defects). The placenta andfluid are normal. It was a pleasure to see you in the clinic. If you have any further questions or problems, please contact our office at [phone]. Sincerely, Krista Banks, RN, CRITICAL CARE UNIT MANAGER Dept. COMPLIANCE DIRECTOR [facility] Source: [facility]HXTRANSXRTFSYS Document Id: [id number] Electronically signed by Conversion, [facility] Visual Communications Instructor [id number] at 09/19/2016 2:16 PM CDT documented in this encounter Plan of Treatment Not on filedocumented as of this encounter Visit Diagnoses Not on filedocumented in this encounter
--- OUTSIDE RECORDS SUMMARY | 2022-03-16 15:17 | XMS_ITS | Encounter Summary ---
:1980 Author Organization [facility] Address [address] [place] [address] Care Team Providers Name Role Phone Unavailable Primary Care Provider Unavailable Encounter Details Date Type Department Care Team Description 11/22/2005 Hospital Encounter HX NO MAPPING Provider, Historical [...] Miscellaneous - Conversion, Historical Provider Ser - 11/22/2005 12:00 AM CDT [id number] *-*-*-* INCOMING RECORDS *-*-*-* Pertinent information has been abstracted out of Incoming Records. To see a complete copy of the Records please refer to the scan below. Thanks [facility] Records , Telephone Solicitor Supervisor Source: [facility]XRTFS[facility] Document Id: [id number] documented in this encounter Plan of Treatment Not on filedocumented as of this encounter Visit Diagnoses Not on filedocumented in this encounter
--- OUTSIDE RECORDS SUMMARY | 2022-03-16 15:17 | XMS_ITS | Encounter Summary ---
:1980 Author Organization [facility] Address [address] [place] [address] Care Team Providers Name Role Phone Unavailable Primary Care Provider Unavailable Encounter Details Date Type Department Care Team Description 01/03/2006 Hospital Encounter HX NO MAPPING Krista Banks APRN, C.N.P. [address] [place], [place] [phone] (Wo rk) Social History [...]
--- OUTSIDE RECORDS SUMMARY | 2022-03-16 15:17 | XMS_ITS | Encounter Summary ---
:1980 Author Organization [facility] Address [address] [place] [address] Care Team Providers Name Role Phone Unavailable Primary Care Provider Unavailable Encounter Details Date Type Department Care Team Description 01/03/2006 Hospital Encounter [facility]X [facility] Krista Adames, APR N, C.N.P. [address] [place], [place] [phone] (Wo rk) Social History [...] Progress Notes Krista Banks C.N.P., R.N. - 01/03/2006 11:00 AM CDT [id number] Gestational Age: 21w 3d Sono today, results pending. Zofran Rx renewed. In ER over weekend d/t hyperemesis, feeling much better. HAMLET [facility] Document Id: [id number] documented in this encounter Miscellaneous Notes Miscellaneous - Krista Banks C.N.P., R.N. - 01/03/2006 11:00 AM CDT [id number] Date: 01/03/2006 Name: Dulce Lei Birthdate: 1980 The patient was seen at: [facility] today Pt will not receive 3rd dose of Hep B vaccine during . Plans injection post . Krista Banks RN, TRUCK CRANE OPERATOR HELPER OBSTETRICS/GYNECOLOGY [facility] Source: [facility] Document Id: [id number] Miscellaneous - Krista Banks C.N.P., R.N. - 01/03/2006 11:00 AM CDT [id number] Date: 01/04/2006 Name: Dulce Lei Birthdate: 1980 The patient was seen at: [facility] yesterday. Please excuse patient from participating in Nursing clinicals d/t related complications. Krista Banks RN, TRUCK CRANE OPERATOR HELPER OBSTETRICS/GYNECOLOGY [facility] Source: [facility] RWHXTRANSXRTFSYS Document Id: [id number] documented in this encounter Plan of Treatment Not on filedocumented as of this encounter Visit Diagnoses Not on filedocumented in this encounter
--- OUTSIDE RECORDS SUMMARY | 2022-03-16 15:17 | XMS_ITS | Encounter Summary ---
:1980 Author Organization [facility] Address [address] [place] [address] Care Team Providers Name Role Phone Unavailable Primary Care Provider Unavailable Encounter Details Date Type Department Care Team Description 02/11/2006 - Hospital Encounter HX NO MAPPING Markus Duncan M.D. 02/12/2006 [facility] [place], [place] [phone] (Wo rk) Social History Tobacco [...]
--- OUTSIDE RECORDS SUMMARY | 2022-03-16 15:17 | XMS_ITS | Encounter Summary ---
:1980 Author Organization [facility] Address [address] [place] [address] Care Team Providers Name Role Phone Unavailable Primary Care Provider Unavailable Encounter Details Date Type Department Care Team Description 02/12/2006 Hospital Encounter HX [facility] Supa Pena M.D. [address] [place] [phone] (Wo rk) Social History Tobacco [...] on file documented as of this encounter Keyacellaneous Notes Jose Luis - Markus Anne M.D. - 02/12/2006 12:00 AM CDT [id number] Date: 02/12/2006 Name: Dulce Lei Birthdate: 1980 Dulce has been in the hospital due to complications of . She will not be able to work for atleast the next week. Markus Anne M.D. OBSTETRICS/GYNECOLOGY [facility] Source: [facility] Document Id: [id number] Electronically signed by Conversion, [facility] Advanced Practice Rn [id number] at 09/19/2016 4:24 PM CDT Jose Luis - Markus Anne M.D. - 02/12/2006 12:00 AM CDT [id number] [facility] [address] [facility], [address] Name: Dulce Lei Birthdate: 1980 SSN: [id number] [facility] Admission Date: 02/11/06 Allergy: Quinolones PHYSICIAN's DISCHARGE / TRANSFER ORDERS DISCHARGE TO: Home MEDICATIONS: PHARMACY CONSULT: NO Current outpatient prescriptions Medication Sig FLINTSTONES COMPLETE OR 2 tablets daily ZOFRAN ODT 4 MG OR TBDP 1-2 TABLETS TWICE DAILY PRN COLACE 100 MG OR CAPS 1-2 CAPSULES DAILY DARVOCET-N 100 100-650 MG OR TABS 1 TABLET EVERY 4 HOURS NEEDED VITAMINS OR None Entered DIET: regular HOSPITAL COURSE: Complications: none Dulce was admitted at 26w 6d gestation with rupture of membranes. Clear fluid was nitrozine positive on 3 testings. At rest the fluid has slowed and now stopped. She is nitrozine negative. RENÉE has increased from 8.3 yesterday to 11.5 today. Admitting Diagnosis: spontaneous rupture of membranes. Discharge Diagnosis: same, spontaneous seal of rupture. PROCEDURE(S) PERFORMED: Observation, ultrasounds Discharge exam - Nitrozine negative vaginal fluid. Cervix long and closed by ultrasound, uterus not tender, vitals normal, FHT normal. CONDITION ON DISCHARGE: Satisfactory LEVEL OF ACTIVITY: Modified bed rest APPOINTMENTS: Ob on 02/14/06 REFERRALS: NONE OTHER ORDERS/COMMENTS: Call if severe cramps, temperature over 100.0 degrees or loss of vaginal fluid again ( take temp at home every 4 hours when awake) DISCHARGE SUMMARY DICTATED?: See Hospital Course information above. Time spent in discharging patient - less than [address] MARKUS ANNE 02/12/2006 Source: [facility] RWHXTRANSXRTFSYS Document Id: [id number] Electronically signed by Conversion, [facility] Rn [id number] at 09/19/2016 4:24 PM CDT documented in this encounter Plan of Treatment Not on filedocumented as of this encounter Visit Diagnoses Not on filedocumented in this encounter
--- OUTSIDE RECORDS SUMMARY | 2022-03-16 15:17 | XMS_ITS | Encounter Summary ---
:1980 Author Organization [facility] Address [address] [place] [address] Care Team Providers Name Role Phone Unavailable Primary Care Provider Unavailable Encounter Details Date Type Department Care Team Description 11/29/2005 Hospital Encounter [facility]X [facility] Krista Adames, APR N, C.N.P. [address] [place], [place] [phone] (Wo rk) Social History [...] Progress Notes Krista Banks C.N.P., R.N. - 11/29/2005 10:15 AM CDT [id number] Gestational Age: 16w 3d Quad test today. Sono ordered with next visit. N/V improved. Continues to take Zofran PRN. Source: [facility] Document Id: [id number] Electronically signed by Conversion, [facility] High School Professional [id number] at 09/19/2016 3:50 PM CDT documented in this encounter Miscellaneous Notes Miscellaneous - Krista Banks C.N.P., R.N. - 11/29/2005 10:15 AM CDT [id number] Dulce Lei [facility] [address] [place] [address] December 05, 2005 [id number] Dear Ms. Lei: I am writing to inform you the results of the laboratory tests you had done during your recent visitto the clinic. The tests that are checked were performed and are satisfactory, unless otherwise noted. The results of your recent lab(s) were: Quad screen was normal. It was a pleasure to see you in the clinic. If you have any further questions or problems, please contact our office at [phone]. Sincerely, Krista Banks RN, OUTSIDE MEDICAL SALES REPRESENTATIVE Obstetrics and Gynecology Department [facility] Source: [facility] Document Id: [id number] Electronically signed by Conversion, [facility] High [employer] Professional [id number] at 09/19/2016 3:50 PM CDT documented in this encounter Plan of Treatment Not on filedocumented as of this encounter Visit Diagnoses Not on filedocumented in this encounter
--- OUTSIDE RECORDS SUMMARY | 2022-03-16 15:17 | XMS_ITS | Encounter Summary ---
:1980 Author Organization [facility] Address [address] [place] [address] Care Team Providers Name Role Phone Unavailable Primary Care Provider Unavailable Encounter Details Date Type Department Care Team Description 08/25/2003 Hospital Encounter HX [facility] EHW Provider, Historic al Social History Tobacco [...]
--- OUTSIDE RECORDS SUMMARY | 2022-03-16 15:17 | XMS_ITS | Encounter Summary ---
:1980 Author Organization [facility] Address [address] [place] [address] Care Team Providers Name Role Phone Unavailable Primary Care Provider Unavailable Encounter Details Date Type Department Care Team Description 11/02/2004 Hospital Encounter HX NO MAPPING Provider, Historical [...]
--- OUTSIDE RECORDS SUMMARY | 2022-03-16 15:17 | XMS_ITS | Encounter Summary ---
:1980 Author Organization [facility] Address [address] [place] [address] Care Team Providers Name Role Phone Unavailable Primary Care Provider Unavailable Encounter Details Date Type Department Care Team Description 01/10/2006 Hospital Encounter HX [facility] Supa Pena M.D. [address] [place] [phone] (Wo rk) Social History Tobacco [...] encounter Progress Notes Markus Duncan M.D. - 01/10/2006 10:45 AM CDT [id number] Sinus problems for the past 3 days. Minimal facial tenderness, afeb, TMs normal Viral URI, Sudafed, Afrin wds Source: [facility] RWHXTRANSXRTFSYS Document Id: [id number] documented in this encounter Plan of Treatment Not on filedocumented as of this encounter Visit Diagnoses Not on filedocumented in this encounter
--- OUTSIDE RECORDS SUMMARY | 2022-03-16 15:17 | XMS_ITS | Encounter Summary ---
:1980 Author Organization [facility] Address [address] [place] [address] Care Team Providers Name Role Phone Unavailable Primary Care Provider Unavailable Encounter Details Date Type Department Care Team Description 09/07/2005 Hospital Encounter HX [facility] OBGYN Provider, Histor ical Social [...]
--- OUTSIDE RECORDS SUMMARY | 2022-03-16 15:17 | XMS_ITS | Encounter Summary ---
:1980 Author Organization [facility] Address [address] [place] [address] Care Team Providers Name Role Phone Unavailable Primary Care Provider Unavailable Encounter Details Date Type Department Care Team Description 10/05/2005 Hospital Encounter HX NO MAPPING Krista Banks APRN, C.N.P. [address] [place], [place] [phone] (Wo rk) Social History [...]
--- OUTSIDE RECORDS SUMMARY | 2022-03-16 15:17 | XMS_ITS | Encounter Summary ---
:1980 Author Organization [facility] Address [address] [place] [address] Care Team Providers Name Role Phone Unavailable Primary Care Provider Unavailable Encounter Details Date Type Department Care Team Description 02/06/2006 Hospital Encounter HX [facility] Krista Adames, APR N, C.N.P. [address] [place], [place] [phone] (Wo rk) Social History [...] this encounter Miscellaneous Notes Telephone Encounter - Krista Banks C.NKurtis, R.N. - 02/06/2006 12:00 AM CDT [id number] Is unable to tolerate Fe supplements d/t stomach upset. Will try againtotake PNV with Fe daily. [facility] RWMCHXTRANSXRTFSYS Document Id: [id number] documented in this encounter Plan of Treatment Not on filedocumented as of this encounter Visit Diagnoses Not on filedocumented in this encounter
--- OUTSIDE RECORDS SUMMARY | 2022-03-16 15:17 | XMS_ITS | Encounter Summary ---
:1980 Author Organization [facility] Address [address] [place] [address] Care Team Providers Name Role Phone Unavailable Primary Care Provider Unavailable Encounter Details Date Type Department Care Team Description 10/18/2005 Hospital Encounter HX NO MAPPING Jb Garces M.D. [address] [place] [phone] (Wo rk) Social History Tobacco [...]
--- OUTSIDE RECORDS SUMMARY | 2022-03-16 15:17 | XMS_ITS | Encounter Summary ---
:1980 Author Organization [facility] Address [address] [place] [address] Care Team Providers Name Role Phone Unavailable Primary Care Provider Unavailable Encounter Details Date Type Department Care Team Description 12/21/2005 Hospital Encounter HX NO MAPPING Edouard Proctor M.D. [address] [place], [place] [phone] (Wo rk) Social History [...] documented as of this encounter Progress Notes Edouard Proctor M.D. - 12/21/2005 7:15 PM CDT [id number] Subjective: Dulce Lei a 25 year old female who presents with: HEADACHE:The patient complains of headaches for 1 days. Description of pain: throbbing pain, bilateral in the frontal area. Associated symptoms: nausea, vomiting, photophobia and nausea,photophobia. Pain relief: Rx Meds - tylenol There are no associated abnormal neurological symptoms such as TIA's, loss of balance, loss of vision or speech, numbness or weakness on review. Past neurological history: negative for stroke, MS, epilepsy, or brain tumor. Other than as mentioned elsewhere review of medications reveals no problems with compliance or side effects. She denies other significant symptoms on ROS of the cardiovascular and Respiratory systems. Current medications reviewed and the patient denies any problems with compliance or side effects. The patientalso reports this headache is typical of the headaches she gets. Objective:Blood pressure 110/67, pulse 81, temperature 98.4, temperature source Tympanic, last menstrual period OB (05/13/06). The patients general appearance is well nourished well developed without apparent distress. Patient exhibits stable mood, affect, judgment, insight and orientation during conversation. Eyes with normal lids, conjunctiva, pupils and irises. External ears nose are within normal limits. Normal lips teeth and gums. Neck is grossly normal without obvious thyroid abnormality. Skin is without cyanosis and of normal color. No focal neurological deficits noted on gross inspection. Chest wall normal to inspection and palpation. Good excursion bilaterally. Lungs clear to auscultation.Good air movement bilaterally without rales, wheezes, or rhonchi. Regular rate and rhythm. S1 and S9suaolp, no murmurs, clicks, gallops or rubs. No edema or JVD. and Neurologic: cranial nerves 2-12 grossly intact. 2+ deep tendon reflexes. No focal deficits noted. ASSESSMENT: No diagnosis found. Call or return to clinic prn if these symptoms worsen or fail to improve as anticipated. Source: [facility] RWHXTRANSXRTFSYS Document Id: [id number] Electronically signed by Lesley, [facility] Center[facility] Spinning And Winding Supervisor [id number] at 09/19/2016 2:16 PM CDT documented in this encounter Plan of Treatment Not on filedocumented as of this encounter Visit Diagnoses Not on filedocumented in this encounter
--- OUTSIDE RECORDS SUMMARY | 2022-03-16 15:17 | XMS_ITS | Encounter Summary ---
:1980 Author Organization [facility] Address [address] [place] [address] Care Team Providers Name Role Phone Unavailable Primary Care Provider Unavailable Encounter Details Date Type Department Care Team Description 11/10/2005 Hospital Encounter [facility]X [facility] Tamie Luna M.D. Social History Tobacco [...] encounter Progress Notes Tamie Kern M.D. - 11/10/2005 10:00 AM CDT [id number] Less N/V mostly only at night. Doing will with min meds. Discussed Quad test. Will RTC 2-3 wks. KD Source: [facility] RWMCHXTRANSXRTFSYS Document Id: [id number] Electronically signed by Conversion, [facility] Community Assistant [id number] at 09/19/2016 12:49 PM CDT documented in this encounter Plan of Treatment Not on filedocumented as of this encounter Visit Diagnoses Not on filedocumented in this encounter
--- OUTSIDE RECORDS SUMMARY | 2022-03-16 15:17 | XMS_ITS | Encounter Summary ---
:1980 Author Organization [facility] Address [address] [place] [address] Care Team Providers Name Role Phone Unavailable Primary Care Provider Unavailable Encounter Details Date Type Department Care Team Description 12/15/2005 Hospital Encounter HX [facility] OBGYN Provider, Histor ical Social [...] Notes Telephone Encounter - Conversion, Historical Provider Gonzales - 12/15/2005 12:00 AM CDT [id number] ICSI URINE TRIAGE: FEMALE UTI QUALIFYING SYMPTOMS: Frequency: Yes. Urgency: Yes. Dysuria: Yes. Complicating Factors: (if yes or unknown, visit indicated). Less than 18 or greater than 65: No. Symptoms longer than 7 days: No. Severe shaking, chills, or fever over than 101F: No. Flank pain, mid-back, severe, new occuring with onset of these symptoms: No. Vomiting, abdominal pain, or severe nausea: No. Failure to antibiotic tx for UTI within the last 3 months: No. Use of an antibiotic with this the past 24 hours: No. Pyelonephritis within the last 3 months: No. More than 4 UTI's within the past 12 months: No. or : Yes. Diabetic: NA. Immunosuppressed ( steriods or chemotherapy): NA. Unusual vaginal discharge: NA. If pt is 25 or younger: In the last 3 months, have you had a new sex partner and did not use barrier contraception: NA. Hx of kidney stone or structural abnormality: NA. Catheter or cystoscopy within the last 2 weeks: No. D/C from hospital or NH within the last 2 weeks: No. NURSING COMMENTS: Is 20 weeks weeks . Has had UTI symptoms x [address] Chamberlain this afternoon. Source: [facility] RWHXTRANSXRTFSYS Document Id: [id number] documented in this encounter Plan of Treatment Not on filedocumented as of this encounter Visit Diagnoses Not on filedocumented in this encounter
--- OUTSIDE RECORDS SUMMARY | 2022-03-16 15:17 | XMS_ITS | Encounter Summary ---
:1980 Author Organization [facility] Address [address] [place] [address] Care Team Providers Name Role Phone Unavailable Primary Care Provider Unavailable Encounter Details Date Type Department Care Team Description 11/11/2004 Hospital Encounter HX [facility] XRAY Provider, Histori beatrice Social [...]
--- OUTSIDE RECORDS SUMMARY | 2022-03-16 15:18 | XMS_ITS | Encounter Summary ---
:1980 Author Organization [facility] Address [address] [place] [address] Care Team Providers Name Role Phone Unavailable Primary Care Provider Unavailable Encounter Details Date Type Department Care Team Description 07/24/2001 Hospital Encounter HX NO MAPPING Provider, Historical [...]
--- OUTSIDE RECORDS SUMMARY | 2022-03-16 15:18 | XMS_ITS | Encounter Summary ---
:1980 Author Organization [facility] Address [address] [place] [address] Care Team Providers Name Role Phone Unavailable Primary Care Provider Unavailable Encounter Details Date Type Department Care Team Description 07/24/2001 Hospital Encounter [facility]X [facility] INTERNMED Matt Chadwick M.D. [address] [place] [phone] (Wo rk) Social History Tobacco [...] Progress Notes Conversion, Historical Provider Ser - 07/24/2001 9:00 AM CDT [id number] Addended by: LUCERO MORRISSEY on: 07/26/2001,12:43 PM Comment: TranscriptionModules accepted: Domingo gleason NotesDictation done. Ezio Lei: The patient is a 21-year-old female who was [facility] by Dr. Wall for evaluation of her chronic sinusitis. According to the patient and her mother who accompanies her, she's had problems with chronic sinus difficulties since infancy . Currently, she has difficulty with chronic pressure sensation in her nose and frequent sinus infec tions during which time she develops a lot of nasal drainage usually yellow or green and severe cough ing.She also states that she frequently has sneezing but denies any itchy eyes and denies wheezing. She's been treated with numerous antibiotics which don't work anymore. More recently, she has bee n on Lashay D in the morning and Lashay at night along with Nasonex and isn't certain how much it h elps. She does state; however, that since being off of her Lashay she has been worse. Her sinus in fections seem to start with a cold, but she also notes that she tends to get more symptoms when she i s exposed to cold air especially in the wintertime. Her symptoms are worse in the winter months but not absent during the summer months. ENVIRONMENTAL HISTORY: The patient was with her mother in [facility] in [place]. They have a dog and a cat indoors. Their home is heated with [facility] ed air system and they have a window air-conditioning unit. Both the mother and the patient smoke. The patient smokes about one pack per day of cigarettes. No mold or moisture problem in the house. REVIEW OF SYSTEM: Constitutional: Severe chronic fatigue and lack of energy. Skin: Negative for ecz nereida. Eyes: See above. ENT: Has developed growths in her nose since her sinus surgery a year ago . Sense of smell and taste are intact, otherwise, as noted above. Respiratory: Negative for asthma or wheezing only cough as noted above. GI: Negative. No reflux symptoms. Neural: Occasional head aches. Physiatrics: Has been on Prozac for several months because of her chronic fatigue and anxiet y over her medical problems.PAST MEDICAL HISTORY: Had numerous ear infections in infancy and amna narcisa to have ear infections periodically even now. She had PE tubes placed at the age of 8. She had a TNA at age 14 and she had limited sinus surgery done a year ago. She also has been hospitalized f or sinusitis several times and was hospitalized for pneumonia once when she was younger.FAMILY HIST ORY: Maternal grandmother had severe allergies and was on allergy shots but her symptoms didn't star t until she was in her 40s. 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 O: Physical Exam: General, well-developed, well-nourished appearing female, in no acute distress. Skin: No rashes, petechia or urticaria. HEENT: Normocephalic and no swelling or tenderness. Eyes: Normal conjunctivae, no swelling or discharge. Nose: Moderate mucosal edema and slight erythema, no rhinorrhea is noted.Polyps could not be identified. TMs are clear and healthy with good light re flect and landmarks, no scaring. Throat: Tonsils absent, otherwise, unremarkable. Neck is supple, no masses, no thyromegaly.Lungs are clear to auscultation. Heart: RRR, no murmur. Abdomen soft, n o masses, no organomegaly. Extremities no deformities, swelling, no cyanosis or clubbing. Skin test s are performed to common indoor and outdoor inhalants by prick puncture method and for a selected fe w the intradermal method all were negative.ASSESSMENT: 1. Chronic nonallergic rhinitis.2. 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 Chronic fatigue.PLAN: Explained to the patient the nature of nonallergic rhinit is and its potential for contributing to chronic sinusitis. Also, discussed the importance of insuri ng that the patient's immune system is intact given her lifelong history. Also recommended checking her thyroid because of her chronic fatigue and depression. We will obtain records of any lab work do ne in [place] in the last yearto see if any immune workup was done and have the patient return for this if it wasn't. We will also include thyroid studies at that time. A letter will be sent to Dr. Wall regarding this.El Chadwick M.D./Karey 07/24/2001T: 07/26/2001 Source: [facility] RWHXTRANSXSYS Document Id: [id number] documented in this encounter Plan of Treatment Not on filedocumented as of this encounter Visit Diagnoses Not on filedocumented in this encounter
== END 2022-03-16 14:50 | disposition home or self-care (01) ==
LOC: US 14:50
PROVIDERS: PCP Nurse Practitioner Family; Visit Provider Nurse Practitioner Family
DX: N93.8 Other specified abnormal uterine and vaginal bleeding (principal); R93.89 Abnormal findings on diagnostic imaging of other specified body structures; N88.8 Other specified noninflammatory disorders of cervix uteri; N83.202 Unspecified ovarian cyst, left side
CPT/HCPCS: 76830; 76856

== ENCOUNTER 2022-04-07 09:10 | Day surgery (SDC) | payer OTHER, SELFPAY ==
[2022-04-07] MEDS: LACTATED RINGERS 1000 ML 1,000 ML 100 ML IV (09:30)
[2022-04-07 09:39] VITALS: BMI 39.1
[2022-04-07 09:45] VITALS: BP 112/79; PULSE 91; RESP 20; TEMP 36.4; O2SAT 96
[2022-04-07] MEDS: SODIUM CHLORIDE 0.9 % (FLUSH) 10 ML SYRINGE IVF (10:02)
--- NOTE | 2022-04-07 10:02 | SUR.PREOP ---
ordered for ucg voided due to tubal, home covid negative
[2022-04-07 11:30] VITALS: BP 117/90; PULSE 81; RESP 16; TEMP 36.9; O2SAT 98
--- NOTE | 2022-04-07 11:33 | W.ANESCHARGE ---
Anesthesia Charges Start Date/Time Anesthesia Start Date: 04/07/22 Anesthesia Start Time: 10:44 Stop Date/Time Anesthesia Stop Date: 04/07/22 Anesthesia Stop Time: 11:34 Summary Emergency: No
--- NOTE | 2022-04-07 11:35 | W.ANESCHARGE ---
Anesthesia Charges Start Date/Time Anesthesia Start Date: 04/07/22 Anesthesia Start Time: 10:44 Stop Date/Time Anesthesia Stop Date: 04/07/22 Anesthesia Stop Time: 11:34 Summary Emergency: No
[2022-04-07 11:45] VITALS: BP 112/77; PULSE 67; RESP 16; O2SAT 97
--- NOTE | 2022-04-07 11:45 | P.GYNPRC_ITS ---
Procedure Note Time Seen by Provider: 10:00 Date Seen: 04/07/22 Procedure Details: Preoperative diagnosis: 41 year-old with with abnormal uterine bleeding Postoperative diagnosis: Same Procedure: Hysteroscopy, dilation and curettage. Anesthesia: Conscious sedation with paracervical block. Surgeon: Marnie Brown MD Estimated blood loss: <5 mL Fluid Deficit: 150 cc Specimen: Endometrial curettings to pathology. Findings: Exam under anesthesia: Cervix palpates normal. Uterus: anterior position, 8 week size, mobile, without nodularity/masses palpable. Adnexa were without fullness or nodularity. Posterior compartment prolapse noted. On hysteroscopy:Normal appearing endometrium without obvious defect, polyp or fibroids. Procedure: Dulce was taken to the operating where conscious sedation was found to be adequate. She was placed in the dorsal lithotomy position. An exam under anesthesia was performed with findings stated above. She was then prepped and draped in normal sterile manner. A bivalve metal speculum was placed in the vaginal canal. The cervix and vaginal canal appear normal. A paracervical block was placed using 1% Lidocaine with epi: 10 mL injected at the 12, 4 and 8 o'clock positions on the cervix. The anterior lip of the cervix was then grasped with a long Allis clamp. The cervix was dilated to Hegar 6. The uterus sounded to 8 cm. The hysteroscope advanced into the uterus and a diagnostic hysteroscopy was performed with findings stated above. Normal saline was used as the insufflation medium. The hysteroscope was then removed. A sharp curettage was performed until a gritty texture was noted. The hysteroscope was then readvanced into the uterus and documented a normal appearing uterine cavity. Fluid deficit at the end of the procedure 150 mL. The hysteroscope and Allis clamp were removed from the uterus and cervix. Ex cellent hemostasis noted. Nothing was used for hemostasis. The patient tolerated the procedure well. Sponge, lap and instruments counts were correct at the end of the procedure. The patient was awakened from anesthesia and taken to the recovery area in stable condition.
[2022-04-07 12:00] VITALS: BP 94/69; PULSE 71; RESP 16; TEMP 36.9; O2SAT 97
[2022-04-07 12:18] VITALS: BP 100/59; PULSE 69; RESP 16; O2SAT 96
== END 2022-04-07 12:43 | disposition home or self-care (01) ==
PROVIDERS: PCP Nurse Practitioner Family; Visit Provider Obstetrics & Gynecology
PROC: 0UDB8ZZ Extraction of Endometrium, Via Natural or Artificial Opening Endoscopic (ICD-10-PCS; CPT 58558; principal; 2022-04-07 10:15)
DX: N93.8 Other specified abnormal uterine and vaginal bleeding (principal)
CPT/HCPCS: 58558; 00952; 81025; 88305; J1100; J1885; J2250; J2405; J2704; J3010; J3490; J7120

== ENCOUNTER 2022-06-07 09:43 | Outpatient (CLI) | payer OTHER, SELFPAY ==
[2022-06-07 13:55] LABS: Basophils Absolute Auto 0.08 K/uL (0.00-0.30); Eosinophils Percent Auto 3.8 % (0.0-7.0); Hemoglobin* 13.3 gm/dL (12.0-16.0); Immature Granulocytes Abs Auto 0.01 K/uL (0.00-0.30); Immature Granulocytes Pct Auto 0.1 %; Lymphocytes Percent Auto 36.7 % (20-44); Mean Corpuscular HGB Conc 32 gm/dL (32-36); Mean Corpuscular Hemoglobin 30 pg (26-34); Mean Corpuscular Volume 93 fL (80-100); Monocytes Percent Auto 8.3 % (0.0-11.0); Neutrophils Absolute Auto 3.96 K/uL (1.7-7.0); Neutrophils Percent Auto 50.1 % (42.0-72.0); Platelet Count* 395 K/uL (140-440); RDW Coefficient of Variation % 13.1 % (11.5-15.5); White Blood Count* 7.91 K/uL (4.50-11.00)
[2022-06-07 13:58] LABS: Chloride* 110 mmol/L (96-114)
[2022-06-07 13:59] LABS: Potassium* 4.1 mmol/L (3.6-5.1); Sodium* 141 mmol/L (135-149)
[2022-06-07 14:01] LABS: Creatinine* 0.9 mg/dL (0.5-1.5); Estimated Glomerular Filt Rate 83 ml/min
[2022-06-07 14:02] LABS: Blood Urea Nitrogen* 14 mg/dL (5-24); Calcium* 9.4 mg/dL (8.4-10.6); Carbon Dioxide* 26 mmol/L (20-32); Glucose* 95 mg/dL (60-115); Slide Review Reflex No
== END 2022-06-07 09:44 | disposition home or self-care (01) ==
PROVIDERS: PCP Nurse Practitioner Family; Visit Provider Nurse Practitioner Family
DX: Z01.818 Encounter for other preprocedural examination (principal)
CPT/HCPCS: 80048; 85025

== ENCOUNTER 2022-06-13 11:19 | Outpatient (CLI) | payer OTHER, SELFPAY | END 2022-06-13 11:20 | disposition home or self-care (01) | LOC: KYNREF 11:20 | PROVIDERS: PCP Nurse Practitioner Family; Visit Provider Nurse Practitioner Family | DX: M54.9 Dorsalgia, unspecified (principal) | CPT/HCPCS: 87086 ==

== ENCOUNTER 2022-06-23 07:35 | Day surgery (SDC) | payer OTHER, SELFPAY ==
[2022-06-23] VITALS (30 sets, daily range): BP systolic 75–115; BP diastolic 57–82; PULSE 54–90; RESP 14–18; TEMP 36.1–36.9; O2SAT 95–98; BMI 38.8
[2022-06-23] MEDS: SODIUM CHLORIDE 0.9 % (FLUSH) 10 ML SYRINGE IVF (08:20)
[2022-06-23] MEDS: LACTATED RINGERS 1000 ML 1,000 ML 100 ML IV ×3 (08:20→15:21)
--- NOTE | 2022-06-23 08:30 | SUR.PREOP ---
Pt refused HCG sample, form signed. Pt refused earing removal, form signed.
--- NOTE | 2022-06-23 08:33 | W.ANESCHARGE ---
Anesthesia Charges Start Date/Time Anesthesia Start Date: 06/23/22 Anesthesia Start Time: 09:36 Stop Date/Time Anesthesia Stop Date: 06/23/22 Anesthesia Stop Time: 12:32
[2022-06-23 08:42] LABS: Basophils Absolute Auto 0.02 K/uL (0.00-0.30); Basophils Percent Auto 0.3 % (0.0-3.0); Eosinophils Absolute Auto 0.23 K/uL (0.00-0.50); Eosinophils Percent Auto 3.6 % (0.0-7.0); Hematocrit 39.8 % (33.0-51.0); Hemoglobin* 13.3 gm/dL (12.0-16.0); Immature Granulocytes Abs Auto 0.01 K/uL (0.00-0.30); Immature Granulocytes Pct Auto 0.2 %; Lymphocytes Absolute Auto 1.61 K/uL (0.90-2.90); Lymphocytes Percent Auto 25.4 % (20-44); Mean Corpuscular HGB Conc 33 gm/dL (32-36); Mean Corpuscular Hemoglobin 30 pg (26-34); Mean Corpuscular Volume 89 fL (80-100); Monocytes Percent Auto 7.9 % (0.0-11.0); Neutrophils Absolute Auto 3.98 K/uL (1.7-7.0); Neutrophils Percent Auto 62.6 % (42.0-72.0); Platelet Count* 258 K/uL (140-440); RDW Coefficient of Variation % 12.9 % (11.5-15.5); Red Blood Count 4.45 m/uL (4.00-5.20); White Blood Count* 6.35 K/uL (4.50-11.00)
[2022-06-23 08:43] LABS: Slide Review Reflex No
[2022-06-23 08:51] LABS: Chloride* 109 mmol/L (96-114); Sodium* 137 mmol/L (135-149)
[2022-06-23 08:54] LABS: Carbon Dioxide* 20 mmol/L (20-32); Creatinine* 0.6 mg/dL (0.5-1.5); Est. Creatinine Clearance* 98.58; Estimated Glomerular Filt Rate 116 ml/min
[2022-06-23 08:55] LABS: Blood Urea Nitrogen* 14 mg/dL (5-24); Calcium* 8.7 mg/dL (8.4-10.6); Glucose* 88 mg/dL (60-115)
[2022-06-23 09:00] LABS: Potassium* 4.6 mmol/L (3.6-5.1)
[2022-06-23] MEDS: GENTAMICIN 10 MG/ML inj 480 MG IVPB (09:50)
[2022-06-23] MEDS: CLINDAMYCIN 900 MG/50 ML-D5W IVPB (09:50)
[2022-06-23] MEDS: 0.9 % SODIUM CHLORIDE 50 ml INJECTION (10:08)
[2022-06-23] MEDS: VASOPRESSIN 20 UNIT/ML INJ INJECTION (10:08)
[2022-06-23] MEDS: ESTROGENS, CONJUGATED VAGINAL 0.625 MG/G CREAM 1 APPLIC TOPICAL (12:07)
--- NOTE | 2022-06-23 12:36 | W.ANESCHARGE ---
Anesthesia Charges Start Date/Time Anesthesia Start Date: 06/23/22 Anesthesia Start Time: 09:36 Stop Date/Time Anesthesia Stop Date: 06/23/22 Anesthesia Stop Time: 12:32
--- NOTE | 2022-06-23 12:49 | P.GYNHP_ITS ---
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 Patient had a recent norovirus infection that was causing her nausea/vomiting but reports improvement within the last 24 hours. She was never febrile. Currently, patient denies fever, chills, chest pain, SOB, n/v, headache, abdominal pain, or dizziness. No interval changes to her dysfunctional bleeding since we last spoke. [facility] Medical History (Updated 06/22/22 @ 14:06 by Elisabeth COLLAZO), CORDELL) Anxiety and depression Asthma Biliary colic Cough Diverticulosis of colon Hemorrhoids Herpes zoster History of cervical dysplasia Menometrorrhagia Vaginal odor Surgical History (Updated 06/07/22 @ 09:36 by Alia Roberts APRN, LANIE) Encounter for sterilization (06/22/21) History of colposcopy with cervical biopsy History of loop electrical excision procedure (LEEP) History of sinus surgery Status post laparoscopic cholecystectomy Family History (Updated 06/07/22 @ 09:38 by Alia Roberts APRN, LANIE) Mother Depression Diabetes High blood pressure Father High blood pressure Diverticulosis Aunt Breast cancer Maternal Grandfather Heart disease Paternal Grandfather Heart disease Social History (Updated 06/07/22 @ 09:39 by Alia Roberts APRN, LANIE) Narrative: Tobacco use daily, pack per day. Alcohol, rare. No illicit drug use. Significant other and 3 children. Live in [place]. [facility] Residence, jail. Smoking Status: Current every day smoker What tobacco products do you use: cigarettes Smoking packs per day: 1 Smoking cigarettes per day: 20.0 Years smoked: 15 Smoking pack-years: 15.00 Do you use any of these nicotine containing products: None How often do you have a drink containing alcohol: monthly or less Alcohol type: beer How many standard drinks containing alcohol do you have on a typical day: 1 or 2 How often do you have six or more drinks on one occasion: Never AUDIT-C Alcohol total score: 1 Non-prescribed substance use: denies use Caffeine: Yes (coffee- 1 pot/day. soda - 2 cans per day.) Are you using contraception or practicing any form of control: Yes (Tubal ligation) service: No Meds Home Medications and Allergies Home Medications Medication Instructions Recorded Confirmed Type magnesium oxide 400 mg (241.3 mg 400 mg PO .qd 11/19/21 06/23/22 History magnesium) tablet cholecalciferol (vitamin D3) 25 50 mcg PO QDAY 06/07/22 06/23/22 History mcg (1,000 unit) capsule docusate sodium 100 mg capsule 100 mg PO QDAY 06/07/22 06/23/22 History fluticasone propionate 50 2 spray intranasal QDAY 06/07/22 06/23/22 History mcg/actuation nasal spray,suspension cyclobenzaprine 10 mg tablet 10 mg PO TID 06/13/22 06/23/22 History Allergies Allergy/AdvReac Type Severity Reaction Status Date / Time ciprofloxacin Allergy Intermediate GI distress Verified 06/23/22 07:59 Quinolones Allergy Intermediate Sick Verified 06/23/22 07:59 amoxicillin [From Augmentin] Allergy gi upset Verified 06/23/22 07:59 clavulanic acid Allergy gi upset Verified 06/23/22 07:59 [From Augmentin] 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 No masses or hepatosplenomegaly palpated. Neuro: No focal deficit. 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
--- NOTE | 2022-06-23 13:01 | SUR.PHASEI ---
iv [id number] infused in OR for POLICY LOAN CALCULATOR at 1100. 1100 new 1000cc iv hung by MAGNO seaman charted iv's for POLICY LOAN CALCULATOR
--- NOTE | 2022-06-23 13:29 | PM.GYNPRHY ---
Procedure Type of Hysterectomy: Vaginal Pre-op/Post-op diagnoses: Pre-Op/Post-Op Diagnoses Operation Date: 06/23/22 09:20 <No data on this case meets the specified criteria> Procedure: Procedures Operation Date: 06/23/22 09:20 Actual Procedure Side Surgeon p Vaginal Hysterectomy, Cystoscopy Marnie Brown MD Clinical Rehabilitation Liaison: Alisa Curry Estimated blood loss (mL): 75 Anesthesia type: Spinal Complications: cystotomy (0.5 cm, repaired with ) Fluids: crystalloid Fluid amount (mL): 1,800 Urine output (mL): 400 Weight of Uterus: 2.187 oz Narrative: Preoperative diagnosis: 42-year-old 3 para 3003 with abnormal uterine bleeding Postoperative diagnosis: Same Procedure: Total vaginal hysterectomy, incidental cystotomy repair, and cystoscopy Anesthesia: Spinal and local Surgeon: Marnie Brown MD sales service assistant: Alisa Dennison MD Second public health assistant: CATHLEEN Haas Pre-operative antibiotics: 900 mg of clindamycin and 5 mg/kg of gentamicin EBL: 75 mL IV Fluid: 1800 mL Urine output: 400 mL Drains: Ivy to gravity: Clear urine at the end of the procedure., Vaginal pack in place Specimen: Uterus with cervix to pathology Findings: On exam under anesthesia: Uterus is mid position, 5 week size. Prolapse: Grade 2 cystocele and rectocele noted. Intraoperative findings: Fallopian tubes surgically absent bilaterally. Bilateral ovaries were normal. Patient had large bowel epiploica adherent to her posterior cul-de-sac. Cystoscopy findings: Bilateral ureteral efflux noted. Small abrasion was noted from Ivy balloon. A 0.5 cm cystotomy, midline on posterior wall of the bladder was noted. After standard double layer repair and final cuff closure, bilateral ureteral efflux was noted again. Survey of the entire bladder was noted to be intact after repair. Procedure: Dulce was taken to the operating room where spinal anesthesia was placed and found be adequate. She is placed in the dorsal lithotomy position and an exam under anesthesia performed with the findings stated above. She was then prepped and draped in a sterile manner. A Ivy catheter was placed. A weighted speculum was placed in the posterior aspect of the vaginal introitus. The cervix was grasped with 2 double -toothed tenaculums and the cervix circumferentially injected dilute vasopressin, 20 units diluted in 50 mL of saline. A circumferential incision was made around the cervix with a scalpel. The posterior cul-de-sac was entered sharply with Price scissors and a long weighted speculum was placed. The anterior vaginal mucosa was grasped with an Allis clamp and the anterior cul-de-sac formed with Metzenbaum scissors. The peritoneum was grasped an with toothed forceps and the peritoneum entered sharply with Metzenbaum scissors. This opening was extended with blunt pressure and a [place] retractor placed through the opening. Pedicles of the hysterectomy were formed using Jona clamps. The 1st pedicle was formed on the patient's left incorporating the uterosacral ligament. This was divided and Park transfixed. These sutures were tagged with a small clamp. The right uterosacral ligament was grasped in the 1st right pedicle that pedicle was divided, Jona transfixed in the sutures held with a small Karin clamp. Sequential pedicles were then formed using Park clamps, all pedicles were divided sharply and Jona transfixed except for the last pedicle the utero ovarian ligament. At the level of the cornea at the utero ovarian ligament ligament were cauterized and bisected using the impact ligature. Slight oozing was noted from the left utero-ovarian pedicle so this was clamp with Jona clamps. The cornual pedicle were doubly suture ligated: 1st with an 0 Vicryl free tie followed by an 0 Vicryl stick tie in a fore and aft manner. All pedicles were noted to be hemostatic. The long weighted speculum was removed and the short weighted speculum replaced in the vaginal introitus. The peritoneum was identified circumferentially and grasped with 2 Allis clamps.The peritoneum was closed using a 2-0 Vicryl in a purse-string manner. The weighted speculum removed. The vaginal cuff was re-approximated using 0 Vicryl sutures in a figure of X manner vertically. The uterosacral pedicles were incorporated into each apex of the vaginal cuff. Excellent hemostasis was noted. After closure, cystoscopy was performed, and the above findings were noted (A 0.5 cm cystotomy, midline on posterior wall of the bladder was noted). All vaginal sutures from vaginal cuff was cut to assess the cystotomy vaginally. Small cystotomy easily identified vaginally. One [id number] with 4-0 Vicryl placed for the closure of the bladder mucosal defect. A second layer of 3 [id number] was placed to close the serosa. After the double-layer repair was completed, sterile milk was used to backfill the bladder, the integrity of the bladder was confirmed as there was no leakage noted. Velia was applied on the repair area and the area of the posterior vaginal cuff x2. Attention was then turned to the vaginal cuff closure. The vaginal cuff was re-approximated using 0 Vicryl sutures in a figure of X manner vertically. The uterosacral pedicles were incorporated into each apex of the vaginal cuff. Excellent hemostasis was noted. Cystoscopy was performed one last time with bilateral ureteral efflux and survey of the entire bladder was noted to be intact after repair. A vaginal pack with Premarin cream was placed in the vaginal canal to be removed tomorrow morning by the physician. Sponge, lap and instrument counts were correct x2 at the end of the procedure and the patient was taken to the recovery room in stable condition.
[2022-06-23] MEDS: NICOTINE 21 MG PATCH 1 PATCH TRANSDERMA (13:48)
[2022-06-23] MEDS: diphenhydrAMINE 50 MG/ML inj 12.5 MG IVP ×3 (13:48→22:58)
[2022-06-23] MEDS: KETOROLAC 30 MG/ML inj IVP (18:02)
--- NOTE | 2022-06-23 18:03 | PC.NURSE ---
Dr. Brown updated for clarification of orders at 1531. Orders received from regarding medications and labs. She is aware pt. is still having itching. Leslie Bowers CRNA called with orders at 1540 per H. Mino MEJÍA who received orders for narcan after the SECURITY TECH was notified of the itching.
[2022-06-23] MEDS: LORazepam 2 MG/ML inj 0.5 MG IVP ×2 (18:44→23:17)
[2022-06-24] VITALS (12 sets, daily range): BP systolic 95–110; BP diastolic 67–78; PULSE 83–88; RESP 16; TEMP 37.1; O2SAT 96–97
[2022-06-24 04:01] LABS: Hemoglobin* 10.4 gm/dL (12.0-16.0)
[2022-06-24 04:14] LABS: Creatinine* 0.7 mg/dL (0.5-1.5); Est. Creatinine Clearance* 84.49; Estimated Glomerular Filt Rate 112 ml/min
[2022-06-24] MEDS: DOCUSATE SODIUM 100 MG CAPSULE PO (07:24)
[2022-06-24] MEDS: IBUPROFEN 600 MG TABLET PO (07:24)
--- NOTE | 2022-06-24 07:47 | P.DS_ITS ---
DS: Providers Provider Time Seen by Provider: 07:48 Date Seen: 06/24/22 Date of admission: 06/23/22 07:35 Primary care physician: Alia Roberts APRN, PLATE GLASS INSTALLER HELPER Admitting Clinician: Marnie Brown MD Attending Physician on discharge: Marnie Brown MD Date of Discharge: 06/24/22 PATIENT ACCOUNTS COORDINATOR-Discharge Summary Hospital Course Hospital Course Narrative: Patient is a 42 year old admitted on June 23 2022 for scheduled surgery (vaginal hysterectomy and cystoscopy). Indication for surgery: Dysfunctional bleeding. Intraoperative findings were notable for On exam under anesthesia:? Uterus is mid position, 5 week size.? Prolapse:? Grade 2 cystocele and rectocele noted. Intraoperative findings: Fallopian tubes surgically absent bilaterally. Bilateral ovaries were normal. Patient had large bowel epiploica adherent to her posterior cul-de-sac. Cystoscopy findings:? Bilateral ureteral efflux noted. Small abrasion was noted from Arellano balloon. A 0.5 cm cystotomy, midline on posterior wall of the bladder was noted. After standard double layer repair and final cuff closure, bilateral ureteral efflux was noted again.? Survey of the entire bladder was noted to be intact after repair.. She had a surgery complicated by incidental cystotomy that was repaired at the time of the surgery. Postoperative course has been uneventful. Vitals have been stable. She has remained afebrile. Today, on postoperative day 1, she reports the pain is well controlled. She has been able to ambulate Without difficulty. She is tolerating regular diet. She is passing flatus. Arellano catheter is in place with yellow urine. Arellano teaching provided. I removed her vaginal packing this morning with minimal blood noted in the packing. She is very motivated to go home as her daughter has an doctors appointment this AM. She does not want to stay for her official 24 hours. We discussed with Anesthesia team to make sure that it is appropriate to discharge her prior to her 24 hours after neurapraxia anesthesia. Anesthesia team was comfortable with it given how well she looks clinically. Time Spent with Patient Time attestation: Total time spent providing and/or coordinating discharge services: PATIENT ACCOUNTS COORDINATOR - Exam Physical Exam: Vital signs: Temp Pulse Resp BP Pulse Ox O2 Del Method 98.8 F 83 16 95/67 96 06/24/22 03:32 06/24/22 03:32 06/24/22 07:00 06/24/22 03:32 06/24/22 03:32 06/24/22 03:32 Narrative: Physical exam: General: No acute distress Psych: Alert and oriented x3, full affect HEENT: Normocephalic, atraumatic, oropharynx benign Neck: No cervical adenopathy, no thyromegaly Heart: Regular rate and rhythm, no murmur rub or gallop Lungs: Clear to auscultation bilaterally Abdomen: Normoactive bowel sounds, soft, no tenderness, rebound, or guarding, no masses, no hepatosplenomegaly, no hernias Lower extremities: No edema or erythema. Teds on bilaterally Pelvic exam: Arellano and vaginal packing in place. Vaginal packing removed with minimal blood on vaginal packing. After removal, no bleeding noted. PATIENT ACCOUNTS COORDINATOR - DS: Data Data Completed and Pending Labs on day of discharge: Labs from last 24 hours 06/24/22 06/24/22 06/23/22 03:35 03:35 08:18 WBC RBC Hgb 10.4 L Hct MCV MCH MCHC RDW Coeff of Jeffrey Plt Count Neut % (Auto) Lymph % (Auto) Foard % (Auto) Eos % (Auto) Baso % (Auto) Neut # (Auto) Lymph # (Auto) Foard # (Auto) Eos # (Auto) Baso # (Auto) Sodium 137 Potassium 4.6 Chloride 109 Carbon Dioxide 20 BUN 14 Creatinine 0.7 0.6 Estimated Creat Clear 84.49 98.58 Estimated GFR 112 116 Glucose 88 Calcium 8.7 Blood Type Antibody Screen 06/23/22 06/23/22 08:18 08:18 WBC 6.35 RBC 4.45 Hgb 13.3 Hct 39.8 MCV 89 MCH 30 MCHC 33 RDW Coeff of Jeffrey 12.9 Plt Count 258 Neut % (Auto) 62.6 Lymph % (Auto) 25.4 Foard % (Auto) 7.9 Eos % (Auto) 3.6 Baso % (Auto) 0.3 Neut # (Auto) 3.98 Lymph # (Auto) 1.61 Foard # (Auto) 0.50 Eos # (Auto) 0.23 Baso # (Auto) 0.02 Sodium Potassium Chloride Carbon Dioxide BUN Creatinine Estimated Creat Clear Estimated GFR Glucose Calcium Blood Type O Positive Antibody Screen NEGATIVE Procedures Procedures: Procedures Operation Date: 06/23/22 09:20 Actual Procedure Side Surgeon p Vaginal Hysterectomy, Cystoscopy Marnie Brown MD Complications: cystotomy (0.5 cm, repaired with ) Discharge Plan Discharge Disposition: Home, Self-Care Discharging Surgeon: Marnie Brown MD Follow-Up Appointment: 7-10 days for arellano cath removal. Post op visit 6-8 weeks. Prescriptions: New acetaminophen 500 mg Tablet 1,000 mg PO Q6H PRN (Reason: Pain) 30 Days Qty: 60 0RF ibuprofen 600 mg Tablet 600 mg PO Q6H PRN (Reason: Pain) 30 Days Qty: 60 0RF oxycodone 5 mg Tablet 5 mg PO Q4H PRN (Reason: Moderate Pain) 30 Days Qty: 15 0RF nitrofurantoin monohyd/m-cryst [Macrobid] 100 mg capsule 100 mg PO QAM Qty: 10 0RF Rx Instructions: must administer with a meal/food Continued fluticasone propionate 50 mcg/actuation spray,suspension 2 spray intranasal QDAY Rx Instructions: administer into each nostril docusate sodium 100 mg capsule 100 mg PO QDAY topiramate 50 mg tablet 100 mg PO ONCE 90 Days Qty: 180 3RF magnesium oxide 400 mg (241.3 mg magnesium) tablet 400 mg PO .qd cholecalciferol (vitamin D3) 25 mcg (1,000 unit) capsule 50 mcg PO QDAY cetirizine 10 mg tablet 10 mg PO QDAY Qty: 90 3RF Activity Detail: ACTIVITY No heavy lifting/pushing/pulling for 4-6 weeks. Do not lift anything more than about 10 lbs (such as laundry, groceries, children, pets), vacuum, push heavy doors or grocery carts, etc. You may climb stairs as tolerated. Do not put anything in the vagina for 6 weeks after surgery unless otherwise instructed by your doctor (including tampons, douching, sexual intercourse, etc). No driving for about 2 weeks after surgery, while you are taking narcotic pain medication, or until you feel that you are ready. Practice checking your blind spot and stepping hard on the brake. Avoid sitting or lying in bed for more than 2 hours at a time while you are awake to reduce your risk of blood clots. You may return to work when directed by your physician. Please contact your doctor if you need any return to work letters or medical leave paperwork to be completed. Discharge Diet: Regular Patient Instructions: Arellano Catheter Placement and Care (DC), Arellano Catheter Placement and Care (GEN), Vaginal Hysterectomy (DC) Additional Instructions: PAIN MANAGEMENT Take your oral pain medication as needed. You should be taking Ibuprofen 600mg every 6 hours with 500-1000 gram of Tylenol every 6 hours. You can take these together every six hours or alternate them every 3 hours. You should then take the oxycodone as needed if you have breakthrough pain on top of the Tylenol and Ibuprofen. Some pain medications can cause constipation so you should take a stool softener (i.e. colace) while you are on these medications. You may also take milk of magnesia or Miralax for constipation. WHAT TO EXPECT AT HOME Recovery from surgery is generally 2-4 weeks, but sometimes longer for more strenuous activity. It is normal to be very tired during this time. It is normal to have some drainage or a small amount of vaginal bleeding after surgery which may last up to 6 weeks. You may go home with a arellano catheter in your bladder. You will need to follow up for a nurse visit in 7-10 days for removal. WHEN TO CALL YOUR DOCTOR: Fever (>100.4?F or 38.0?C) or chills. Severe nausea or persistent vomiting. Bright red vaginal bleeding (soaking >1 pad/hour) or foul-smelling vaginal drainage. Severe pain not relieved with pain medication. Pain and swelling in your legs, especially if it is only on one side and not the other. Or if you have any other problems or questions. CALL 911 OR GO TO THE EMERGENCY ROOM IF YOU HAVE: Any shortness of breath, difficulty breathing, or chest pain. Forms: [facility] Info Instructions Follow-up: Marnie Brown MD [Staff Physician] - Alia Roberts APRN, PLATE GLASS INSTALLER HELPER [Primary Care Provider] - Discharge Orders: Discharge Order (Routine); Ordered 06/24/22 Ordered By: Marnie Brown
== END 2022-06-24 08:30 | disposition home or self-care (01) ==
LOC: OB 06-24 07:47 → SS 06-24 11:50 → OB 06-24 11:53
PROVIDERS: Anesthesiology; PCP Nurse Practitioner Family; Visit Provider Obstetrics & Gynecology
PROC: 0TJB8ZZ Inspection of Bladder, Via Natural or Artificial Opening Endoscopic (ICD-10-PCS; CPT 57260; principal; 2022-06-23 09:00)
DX: N92.1 Excessive and frequent menstruation with irregular cycle (principal); N81.2 Incomplete uterovaginal prolapse; N28.89 Other specified disorders of kidney and ureter; N99.71 Accidental puncture and laceration of a genitourinary system organ or structure during a genitourinary system procedure; E66.9 Obesity, unspecified; Z68.39 Body mass index [BMI] 39.0-39.9, adult; F17.210 Nicotine dependence, cigarettes, uncomplicated
CPT/HCPCS: 58260; 51860; 00944; 36415; 80048; 81025; 82565; 85018; 85025; 86850; 86900; 86901; 88307; A9270; J1100; J1200; J1580; J1885; J2060; J2250; J2274; J2310; J2405; J2704; J3010; J7120; S0077; S4990

== ENCOUNTER 2022-06-27 03:49 | Emergency (ER) | payer OTHER, SELFPAY ==
[2022-06-27 04:10] VITALS: BP 138/93; PULSE 82; RESP 18; TEMP 36.1; O2SAT 98
--- NOTE | 2022-06-27 04:48 | ED.GENADULT ---
HPI - General Adult General Chief complaint: Post Op Complication Stated complaint: Post Op Complication, catheter leaking Time Seen by Provider: 06/27/22 03:54 Source: patient and family Mode of arrival: ambulatory Limitations: no limitations History of Present Illness HPI narrative: 42-year-old female, 3 days postop from hysterectomy for dysfunctional uterine bleeding. Procedure was complicated by a small laceration to the bladder which was appropriately repaired. She was discharged with a Ivy catheter as a result. Catheter has been draining nice clear urine, patient having no fever. She has been experiencing bladder spasm its and they have been more bothersome overnight. She says that she got up because of the bladder spasm at night and to take more pain medicine when she noticed a painful bladder spasm ended leakage of urine around the catheter. She called her Ob provider and was recommended to come to the emergency department. She drain the catheter prior to coming to the ED and is continuing to notice good clear urine draining. Normal appetite. Continues to take her pain medicine without difficulty. No trauma or injury. No significant vaginal bleeding. She is getting around pretty well. She sees the surgeon in 3 days for catheter removal. It looks as though she was discharged on Macrobid for UTI prophylaxis. Past medical history is reasonably benign, no major long-term health issues. Surgical notes are reviewed from recent hysterectomy. Social history reviewed, none pertinent. No pertinent travel. ROS is negative for other GI, generalized, skin, urinary, gynecological or musculoskeletal changes. Related Data Home Medications Medication Instructions Recorded Confirmed magnesium oxide 400 mg (241.3 mg 400 mg PO .qd 11/19/21 06/23/22 magnesium) tablet cholecalciferol (vitamin D3) 25 50 mcg PO QDAY 06/07/22 06/23/22 mcg (1,000 unit) capsule docusate sodium 100 mg capsule 100 mg PO QDAY 06/07/22 06/23/22 fluticasone propionate 50 2 spray intranasal QDAY 06/07/22 06/23/22 mcg/actuation nasal spray,suspension Previous Rx's Medication Instructions Recorded cetirizine 10 mg tablet 10 mg PO QDAY #90 tabs 12/21/21 topiramate 50 mg tablet 100 mg PO ONCE 90 days #180 tabs 06/07/22 acetaminophen 500 mg tablet 1,000 mg PO Q6H PRN Pain 30 days 06/24/22 #60 tabs ibuprofen 600 mg tablet 600 mg PO Q6H PRN Pain 30 days #60 06/24/22 tabs nitrofurantoin 100 mg PO QAM #10 caps 06/24/22 monohydrate/macrocrystals 100 mg capsule (Macrobid) oxycodone 5 mg tablet 5 mg PO Q4H PRN Moderate Pain 30 06/24/22 days #15 tabs cyclobenzaprine 10 mg tablet 5 - 10 mg PO TID PRN muscle spasm 06/27/22 #14 tabs tamsulosin 0.4 mg capsule (Flomax) 0.4 mg PO DAILY #7 caps 06/27/22 Allergies Allergy/AdvReac Type Severity Reaction Status Date / Time ciprofloxacin Allergy Intermediate GI distress Verified 06/23/22 07:59 Quinolones Allergy Intermediate Sick Verified 06/23/22 07:59 amoxicillin [From Augmentin] Allergy gi upset Verified 06/23/22 07:59 clavulanic acid Allergy gi upset Verified 06/23/22 07:59 [From Augmentin] [facility] Medical History (Updated 06/27/22 @ 04:48 by Janel Javed MD) Anxiety and depression Asthma Biliary colic Cough Diverticulosis of colon Hemorrhoids Herpes zoster History of cervical dysplasia Menometrorrhagia Vaginal odor Surgical History (Updated 06/07/22 @ 09:36 by Alia oRberts APRN, LANIE) Encounter for sterilization (06/22/21) History of colposcopy with cervical biopsy History of loop electrical excision procedure (LEEP) History of sinus surgery Status post laparoscopic cholecystectomy Family History (Updated 06/07/22 @ 09:38 by Alia Roberts APRN, LANIE) Mother Depression Diabetes High blood pressure Father High blood pressure Diverticulosis Aunt Breast cancer Maternal Grandfather Heart disease Paternal Grandfather Heart disease Social History (Updated 06/07/22 @ 09:39 by Alia Roberts APRN, SIDE PANEL PADDER) Narrative: Tobacco use daily, pack per day. Alcohol, rare. No illicit drug use. Significant other and 3 children. Live in [place]. [facility], [facility]. Smoking Status: Current every day smoker What tobacco products do you use: cigarettes Smoking packs per day: 1 Smoking cigarettes per day: 20.0 Years smoked: 15 Smoking pack-years: 15.00 Do you use any of these nicotine containing products: None Second hand tobacco smoke exposure: No How often do you have a drink containing alcohol: monthly or less Alcohol type: beer How many standard drinks containing alcohol do you have on a typical day: 1 or 2 How often do you have six or more drinks on one occasion: Never AUDIT-C Alcohol total score: 1 Non-prescribed substance use: denies use Caffeine: Yes (coffee- 1 pot/day. soda - 2 cans per day.) Are you using contraception or practicing any form of control: Yes (Tubal ligation) service: No Exam Const: Vital Signs, click to edit/add: Vital Signs - 24 hr 06/27/22 04:10 Temperature 97.0 F L Pulse Rate [Left P ulse Oximeter] 82 Respiratory Rate 18 Blood Pressure [Ri ght Upper Arm] 138/93 H Pulse Oximetry 98 Oxygen Delivery Me thod Room Air Documenting provider has reviewed patient's vital signs: yes Common normals: no apparent distress General appearance: cooperative, comfortable and well kempt HENMT: Face and sinus: normal facial exam Mouth: oral and palatal mucosa normal Eye: Other: Eyes appear normal, normal gaze and tracking Resp: Common normals: normal respiratory effort Effort & inspection: able to speak in complete sentences : Other: Periurethral area examined, no swelling. Catheter appropriately in place. There is no leakage of fluid or wetness appreciated. Catheter appears fully intact in his draining pale yellow urine. I do not perform an internal vaginal exam but do notice that there was no significant bleeding, clots or fluid coming from this either. No unusual odor, good hygiene. Extremity: Common normals: no pedal edema Psych: Appearance: well kempt Activity/motor behavior: appropriate eye contact Insight: insight good Judgement: judgment good Skin: Common normals: no rashes or lesions noted General skin exam: no rashes or lesions noted Course Vital Signs Vital signs: Initial Vital Signs Temperature 97.0 F L 06/27/22 04:10 Temperature Source Temporal Artery Scan 06/27/22 04:10 Pulse Rate 82 06/27/22 04:10 Pulse Rhythm 06/27/22 04:10 Respiratory Rate 18 06/27/22 04:10 Blood Pressure 138/93 H 06/27/22 04:10 Blood Pressure Mean 108 06/27/22 04:10 Blood Pressure Position Semi-Fowlers 06/27/22 04:10 Pulse Oximetry 98 06/27/22 04:10 Oxygen Delivery Method 06/27/22 04:10 Vital Signs Temperature 97.0 F L 06/27/22 04:10 Pulse Rate 82 06/27/22 04:10 Respiratory Rate 18 06/27/22 04:10 Blood Pressure 138/93 H 06/27/22 04:10 Pulse Oximetry 98 06/27/22 04:10 Oxygen Delivery Method 06/27/22 04:10 Temperature 97.0 F L 06/27/22 04:10 Pulse Rate 82 06/27/22 04:10 Respiratory Rate 18 06/27/22 04:10 Blood Pressure 138/93 H 06/27/22 04:10 Pulse Oximetry 98 06/27/22 04:10 Oxygen Delivery Method 06/27/22 04:10 Medical Decision Making MDM Narrative Medical decision making narrative: Patient bladder scan with no significant residual urine. Catheter draining appropriately. UA is sent for analysis. Counseled patient that unfortunately bladder spasms can be common with catheters. I am not overly concerned about the slight leakage of urine with the spasm. Discussed pain control options. Recommended a short course of Flomax as the skin significantly help with the bladder spasms and a B&O suppository here in the ED. I do not like to use those in combination with oral opiates at home so will continue on the Flomax daily and will also give a small amount of Flexeril as needed which can also be helpful. She will continue on Tylenol and ibuprofen and update her surgeon if she is still experiencing issues later today. Keep her appointment on as planned for catheter removal. Alarm symptoms reviewed that would warrant sooner ED presentation. Update: Patient took the Flexeril is feeling a little better declines a B&O suppository which is fine. We discussed pain management plan outpatient. She verbalizes understanding and agreement, prescriptions sent to pharmacy. UA reviewed without significant signs of infection. Lab Data Lab results reviewed: Yes I reviewed the patient's lab results Labs: Lab Results 06/27/22 Range/Units 05:00 Urine Color Yellow (Yellow) Urine Appearance Clear (Clear) Urine pH 6.0 (5.0-8.5) Ur Specific [place] 1.025 (1.000-1.030) Urine Protein Negative (Negative) Urine Glucose (UA) Negative (Negative) Urine Ketones Negative (Negative) Urine Blood 1+ A (Negative) Urine Nitrite Negative (Negative) Urine Bilirubin Negative (Negative) Urine Urobilinogen 0.2 (0.2-1.0) Ur Leukocyte Esterase Negative (Negative) Discharge Plan Discharge Clinical Impression: Bladder spasm Patient Disposition: Home w/ Parent or Adult Condition: Improved Instructions: Ivy Catheter Placement and Care (ED) Additional Instructions: Hopefully you only need the catheter a few more days. The bladder spasms can be bothersome. The catheter does look like it is draining properly. Leakage around the catheter is not necessarily up problem. There are no obvious signs of infection thankfully. I have given you medication to help with the spasm. The 1st is a medicine called Flomax. We use this for bladder spasm and also for enlarged prostate and also for people with kidney stones. You will take this once daily for the next few days to reduce the chance of spasm. I also offered do a suppository but you have declined this for now. I will also send a prescription for a muscle relaxant, Flexeril if the spasm pain gets very bothersome again. Unfortunately the spasms 10 to come in waves which can be a little unpredictable. The spasms do improved markedly after the catheter is able to be removed which again is hopefully just a few days for you. It is okay to continue Tylenol and ibuprofen for pain as well. Activity Level: Activity as Tolerated Discharge Diet: Regular Prescriptions: New cyclobenzaprine 10 mg tablet 5 - 10 mg PO TID PRN (Reason: muscle spasm) Qty: 14 0RF tamsulosin [Flomax] 0.4 mg capsule 0.4 mg PO DAILY Qty: 7 0RF Rx Instructions: Take daily to prevent bladder spasm No Action fluticasone propionate 50 mcg/actuation spray,suspension 2 spray intranasal QDAY Rx Instructions: administer into each nostril docusate sodium 100 mg capsule 100 mg PO QDAY topiramate 50 mg tablet 100 mg PO ONCE 90 Days Qty: 180 3RF magnesium oxide 400 mg (241.3 mg magnesium) tablet 400 mg PO .qd cholecalciferol (vitamin D3) 25 mcg (1,000 unit) capsule 50 mcg PO QDAY acetaminophen 500 mg Tablet 1,000 mg PO Q6H PRN (Reason: Pain) 30 Days Qty: 60 0RF ibuprofen 600 mg Tablet 600 mg PO Q6H PRN (Reason: Pain) 30 Days Qty: 60 0RF oxycodone 5 mg Tablet 5 mg PO Q4H PRN (Reason: Moderate Pain) 30 Days Qty: 15 0RF nitrofurantoin monohyd/m-cryst [Macrobid] 100 mg capsule 100 mg PO QAM Qty: 10 0RF Rx Instructions: must administer with a meal/food cetirizine 10 mg tablet 10 mg PO QDAY Qty: 90 3RF Follow Up/Referrals: Alia Roberts APRN, SIDE PANEL PADDER [Primary Care Provider] - Stand Alone Forms: MyHealth Info Instructions
[2022-06-27] MEDS: TAMSULOSIN HCL 0.4 MG CAPSULE PO (04:55)
[2022-06-27 05:14] LABS: Appearance Urine Clear (Clear); Bilirubin Urine Negative (Negative); Blood Urine 1+ (Negative); Color Urine Yellow (Yellow); Glucose Urine Negative (Negative); Ketones Urine Negative (Negative); Leukocyte Esterase Urine Negative (Negative); Nitrite Urine Negative (Negative); Protein Urine Negative (Negative); Specific Gravity Urine 1.025 (1.000-1.030); Urobilinogen Urine 0.2 (0.2-1.0)
[2022-06-27 05:24] LABS: Squamous Epithelial Cell Urine Few (None-Few); WBC Urine 0-2 (0-5)
[2022-06-27 05:25] VITALS: BP 138/68; PULSE 80; RESP 18; O2SAT 97
--- NOTE | 2022-06-27 05:47 | ED.NURSE ---
Dr. Rebollar updated on patients plan of care and course in the ED.
== END 2022-06-27 05:32 | disposition home or self-care (01) ==
LOC: ED 05:31
PROVIDERS: Emergency Provider Family Medicine; PCP Nurse Practitioner Family
DX: N32.89 Other specified disorders of bladder (principal)
CPT/HCPCS: 51798; 81003; 81015; 99283; 99284; A9270

== ENCOUNTER 2022-06-30 11:07 | Outpatient (CLI) | payer OTHER, SELFPAY ==
--- NOTE | 2022-06-30 11:15 | CRLHL7_ITS ---
For Patients: As a result of the Century Cures Act, medical imaging exams and procedure reports are released immediately into your electronic medical record. You may view this report before your referring provider. If you have questions, please contact your health care provider. Indication: ASSESSMENT OF BLADDER REPAIR Technique: Retrograde cystogram performed. Fluoroscopic time 1 minute 7 seconds. 300 cc Cystografin contrast administered. IMPRESSION: Normal appearance of the bladder. No leak. Normal voiding without postvoid residual. Dictated by Vaughn Kaye MD @ 06/30/2022 12:03:31 PM (Electronically Signed)
--- NOTE | 2022-06-30 11:46 | ED.NURSE ---
16Fr Ivy catheter placed in urethra. 10cc sterile water injected into balloon. Patient tolerated well.
== END 2022-06-30 11:08 | disposition home or self-care (01) ==
LOC: RAD 11:07
PROVIDERS: PCP Nurse Practitioner Family; Visit Provider Obstetrics & Gynecology
DX: N32.89 Other specified disorders of bladder (principal)
CPT/HCPCS: 74430

== ENCOUNTER 2023-02-07 15:39 | Outpatient (CLI) | payer OTHER, SELFPAY | END 2023-02-07 15:40 | disposition home or self-care (01) | PROVIDERS: PCP Nurse Practitioner Family; Visit Provider Nurse Practitioner Family | DX: R42 Dizziness and giddiness (principal) | CPT/HCPCS: 84443; 85025; 85651; 86140 ==

== ENCOUNTER 2023-02-24 11:34 | Outpatient (CLI) | payer OTHER, SELFPAY ==
[2023-02-24 16:40] LABS: SARS PCR* Negative SARS-CoV-2 (Negative)
[2023-02-24 19:25] LABS: Strep A DNA Probe* NOT DETECTED (Not Detectd)
== END 2023-02-24 11:35 | disposition home or self-care (01) ==
PROVIDERS: PCP Nurse Practitioner Family; Visit Provider Nurse Practitioner Family
DX: J02.9 Acute pharyngitis, unspecified (principal); J11.1 Influenza due to unidentified influenza virus with other respiratory manifestations
CPT/HCPCS: 87635; 87651

== ENCOUNTER 2023-02-25 09:50 | Emergency (ER) | payer OTHER, SELFPAY ==
[2023-02-25 09:57] VITALS: BP 123/85; PULSE 90; RESP 18; TEMP 36.5; O2SAT 99; BMI 33.1
--- NOTE | 2023-02-25 10:03 | ED_ITS ---
HPI - General Adult General Chief complaint: Ear/Nose/Throat Problem Stated complaint: Possible ear infection and strep Time Seen by Provider: 02/25/23 09:54 History of Present Illness HPI narrative: This 42-year-old female was at urgent care yesterday because of upper respiratory symptoms that began 3 days ago. She had testing for strep, COVID, and influenza which returned negative. She returns here today because she is feeling worse with increased ear pain. She did have a fever yesterday. She has been taking [id number]-[id number] medicines without much relief. She does not report any shortness of breath. She is a current smoker. Related Data Home Medications Medication Instructions Recorded Confirmed cholecalciferol (vitamin D3) 25 50 mcg PO QDAY 06/07/22 02/24/23 mcg (1,000 unit) capsule docusate sodium 100 mg capsule 100 mg PO QDAY 06/07/22 02/24/23 Previous Rx's Medication Instructions Recorded cetirizine 10 mg tablet 10 mg PO QDAY #90 tabs 12/21/21 acetaminophen 500 mg tablet 1,000 mg (2 x 500 mg) PO Q6H PRN 06/24/22 Pain 30 days #60 tabs ibuprofen 600 mg tablet 600 mg PO Q6H PRN Pain 30 days #60 06/24/22 tabs topiramate 100 mg tablet 100 mg PO QDAY 90 days #90 tabs 07/18/22 magnesium oxide 400 mg (241.3 mg 400 mg PO DAILY 90 days #90 tabs 08/16/22 magnesium) tablet phenylephrine 0.25 %-pramoxine 1 1 applic CA BID-QID PRN 09/13/22 %-glycerin-wh.petrolatum rectal hemorrhoids 30 days #51 grams cream (Preparation H Maximum Strength) ondansetron 4 mg disintegrating 4 mg PO Q6-8H PRN nausea and 11/21/22 tablet vomiting 7 days #28 tabs topiramate 25 mg tablet 25 mg PO ONCE 90 days #90 tabs 11/21/22 acetaminophen 300 mg-codeine 30 mg 1 tab PO Q6H PRN pain #20 tabs 02/25/23 tablet methylprednisolone 4 mg tablets in See Rx Instructions PO .COMPLEX 02/25/23 a dose pack (Medrol (Dragan)) #21 ea Allergies Allergy/AdvReac Type Severity Reaction Status Date / Time ciprofloxacin Allergy Intermediate GI distress Verified 02/24/23 11:05 Quinolones Allergy Intermediate Sick Verified 02/24/23 11:05 amoxicillin [From Augmentin] Allergy gi upset Verified 02/24/23 11:05 clavulanic acid Allergy gi upset Verified 02/24/23 11:05 [From Augmentin] Review of Systems Status of ROS: Reports: 10 or more systems reviewed and unremarkable except as noted in History and below Narrative: Constitutional: No weight gain or loss. Eyes: No discharge. No vision changes. HENT: Sore throat and bilateral ear pain, right greater than left. Cardiovascular: No chest pain, no palpitations. Respiratory: No shortness of breath, no wheezes. Occasional cough. Gastrointestinal: No abdominal pain, no vomiting, no diarrhea. Genitourinary: No dysuria, no hematuria. Musculoskeletal: Normal range of motion. Skin: No rashes, no pruritis. Neurological: No dizziness, weakness, sensory change, speech change. Endo/Heme/Allergies: No bruising or bleeding. No polydipsia. Pysch: no suicidality, no anxiety, no insomnia. All other systems reviewed and are negative. [facility] Medical History (Updated 02/25/23 @ 10:14 by Da Milner MD) Hemorrhoids ?K64.9 - Unspecified hemorrhoids (ICD-10) Menometrorrhagia ?N92.1 - Excessive and frequent menstruation with irregular cycle (ICD-10) Anxiety and depression ?F41.9 - Anxiety disorder, unspecified (ICD-10) ?F32.A - Depression, unspecified (ICD-10) Vaginal odor ?N89.8 - Other specified noninflammatory disorders of vagina (ICD-10) History of cervical dysplasia ?Z87.410 - Personal history of cervical dysplasia (ICD-10) Herpes zoster ?B02.9 - Zoster without complications (ICD-10) Hemorrhoids ?K64.9 - Unspecified hemorrhoids (ICD-10) Diverticulosis of colon ?K57.30 - Diverticulosis of large intestine without perforation or abscess without bleeding (ICD-10) Cough ?R05.9 - Cough, unspecified (ICD-10) Biliary colic ?K80.50 - Calculus of bile duct without cholangitis or cholecystitis without obstruction (ICD-10) Asthma ?J45.909 - Unspecified asthma, uncomplicated (ICD-10) Surgical History (Updated 06/07/22 @ 09:36 by Alia Roberts APRN, COMMUNICATIONS TOWER CLIMBER) Status post laparoscopic cholecystectomy ?Z90.49 - Acquired absence of other specified parts of digestive tract (ICD- 10) History of sinus surgery ?Z98.890 - Other specified postprocedural states (ICD-10) History of loop electrical excision procedure (LEEP) ?Z98.890 - Other specified postprocedural states (ICD-10) History of colposcopy with cervical biopsy ?Z98.890 - Other specified postprocedural states (ICD-10) Encounter for sterilization (06/22/21) ?Z30.2 - Encounter for sterilization (ICD-10) Family History (Updated 06/07/22 @ 09:38 by Alia Roberts APRN, COMMUNICATIONS TOWER CLIMBER) Mother Depression Diabetes High blood pressure Father High blood pressure Diverticulosis Aunt Breast cancer Maternal Grandfather Heart disease Paternal Grandfather Heart disease Social History (Updated 06/07/22 @ 09:39 by Alia Roberts APRN, LANIE) Narrative: Tobacco use daily, pack per day. Alcohol, rare. No illicit drug use. Significant other and 3 children. Live in [place]. [facility], long term. Smoking Status: Current every day smoker What tobacco products do you use: cigarettes Smoking packs per day: 1 Smoking cigarettes per day: 20.0 Years smoked: 15 Smoking pack-years: 15.00 Do you use any of these nicotine containing products: None Second hand tobacco smoke exposure: No How often do you have a drink containing alcohol: monthly or less Alcohol type: beer How many standard drinks containing alcohol do you have on a typical day: 1 or 2 How often do you have six or more drinks on one occasion: Never AUDIT-C Alcohol total score: 1 Non-prescribed substance use: denies use Caffeine: Yes (coffee- 1 pot/day. soda - 2 cans per day.) Are you using contraception or practicing any form of control: Yes (Tubal ligation) service: No Exam Narrative: Exam Narrative: Constitutional: Well-developed, well-nourished, no acute distress. HEENT: Normocephalic, atraumatic. Oropharynx has erythema without tonsillar swelling or exudate. Tympanic membranes appear normal bilaterally. Neck: Normal range of motion. Nontender. Supple. Heart: Regular. No murmurs. Normal rate. Intact distal pulses. Lungs: Clear to auscultation. No chest discomfort. No wheezes, rhonchi, or rales. Abdomen: Normal bowel sounds. Nontender. No rebound tenderness. Genitalia: Deferred. Back: No midline tenderness. Normal range of motion. Extremities: Normal range of motion. No injury. Skin: Intact. No rash. Warm. No erythema or pallor. Neurologic: No altered sensation. No weakness. Alert and oriented. Psychiatric: No suicidality. No anxiety or depression. No insomnia. Nursing notes and vitals signs are reviewed. Const: Vital Signs, click to edit/add: Vital Signs - 24 hr 02/25/23 09:57 Temperature 97.7 F Pulse Rate [Right Pulse Oximeter] 90 Respiratory Rate 18 Blood Pressure [Ri ght Upper Arm] 123/85 Pulse Oximetry 99 Oxygen Delivery Me thod Room Air Course Vital Signs Vital signs: Initial Vital Signs Temperature 97.7 F 02/25/23 09:57 Temperature Source Temporal Artery Scan 02/25/23 09:57 Pulse Rate 90 02/25/23 09:57 Respiratory Rate 18 02/25/23 09:57 Blood Pressure 123/85 02/25/23 09:57 Blood Pressure Mean 97 02/25/23 09:57 Blood Pressure Position Sitting 02/25/23 09:57 Pulse Oximetry 99 02/25/23 09:57 Oxygen Delivery Method Room Air 02/25/23 09:57 Vital Signs Temperature 97.7 F 02/25/23 09:57 Pulse Rate 90 02/25/23 09:57 Respiratory Rate 18 02/25/23 09:57 Blood Pressure 123/85 02/25/23 09:57 Pulse Oximetry 99 02/25/23 09:57 Oxygen Delivery Method Room Air 02/25/23 09:57 Temperature 97.7 F 02/25/23 09:57 Pulse Rate 90 02/25/23 09:57 Respiratory Rate 18 02/25/23 09:57 Blood Pressure 123/85 02/25/23 09:57 Pulse Oximetry 99 02/25/23 09:57 Oxygen Delivery Method Room Air 02/25/23 09:57 Medical Decision Making MDM Narrative Medical decision making narrative: This patient comes in with upper respiratory symptoms as described above. Testing for COVID, influenza, and strep yesterday were negative. I did not repeat these tests today. The patient comes in because of worsening ear pain but her exam is reassuring in this regard. She states that her primary complaint is a severe sore throat. She is not showing any sign of tonsillar abscess or exudate. Most likely this patient's symptoms are due to a viral infection. I stated that an antibiotic is not indicated with her current symptoms and vital signs. She did received prescription for Medrol Dosepak and Tylenol 3. Discharge Plan Discharge Clinical Impression: Acute upper respiratory infection Patient Disposition: Home, Self-Care Condition: Stable Additional Instructions: Take medications as needed and indicated. Use [id number] medicines also as needed and directed. Follow up with MD return if worsening. Prescriptions: New acetaminophen-codeine 300-30 mg tablet 1 tab PO Q6H PRN (Reason: pain) Qty: 20 0RF methylprednisolone [Medrol (Dragan)] 4 mg tablets,dose pack See Rx Instructions .ROUTE .COMPLEX Qty: 21 0RF Rx Instructions: orally per package directions No Action docusate sodium 100 mg capsule 100 mg PO QDAY cholecalciferol (vitamin D3) 25 mcg (1,000 unit) capsule 50 mcg PO QDAY Preparation H Maximum Strength 0.25-1 % cream 1 applic CA BID-QID PRN (Reason: hemorrhoids) 30 Days Qty: 51 3RF ondansetron 4 mg tablet,disintegrating 4 mg PO Q6-8H PRN (Reason: nausea and vomiting) 7 Days Qty: 28 6RF topiramate 25 mg tablet 25 mg PO ONCE 90 Days Qty: 90 3RF acetaminophen 500 mg Tablet 1,000 mg PO Q6H PRN (Reason: Pain) 30 Days Qty: 60 0RF ibuprofen 600 mg Tablet 600 mg PO Q6H PRN (Reason: Pain) 30 Days Qty: 60 0RF cetirizine 10 mg tablet 10 mg PO QDAY Qty: 90 3RF topiramate 100 mg tablet 100 mg PO QDAY 90 Days Qty: 90 3RF magnesium oxide 400 mg (241.3 mg magnesium) tablet 400 mg PO DAILY 90 Days Qty: 90 3RF Follow Up/Referrals: Alia Roberts, [employer]PATCH MACHINE RUNNER, COMMUNICATION[employer] TOWER CLIMBER [Primary Care Provider] - Stand Alone Forms: Opternative Info Instructions
== END 2023-02-25 10:29 | disposition home or self-care (01) ==
LOC: ED 10:28
PROVIDERS: Emergency Provider Emergency Medicine Emergency Medical Services; PCP Nurse Practitioner Family
DX: J06.9 Acute upper respiratory infection, unspecified (principal)
CPT/HCPCS: 99283; 99284

== ENCOUNTER 2023-03-07 14:43 | Outpatient (CLI) | payer OTHER, SELFPAY ==
--- NOTE | 2023-03-07 15:00 | CRLHL7_ITS ---
For Patients: As a result of the Century Cures Act, medical imaging exams and procedure reports are released immediately into your electronic medical record. You may view this report before your referring provider. If you have questions, please contact your health care provider. INDICATION: Left ear pain. TECHNIQUE: Noncontrast CT images acquired through the paranasal sinuses. COMPARISON: None. FINDINGS: No air-fluid levels to suggest acute sinusitis. Postsurgical changes of endoscopic sinus surgery including bilateral maxillary antrostomy, bilateral uncinectomy, bilateral partial ethmoidectomy, and resection of the middle turbinates. Minimal mucosal thickening in the maxillary sinuses. The maxillary sinus outflow tracts are widely patent. The frontal sinuses and frontal recesses are clear. Mild mucosal thickening in the residual ethmoid air cells. Minimal mucosal thickening in the sphenoid sinuses. The sphenoethmoidal recesses are widely patent. Sinusoidal nasal septal deviation with mild leftward deviation of the cartilaginous septum as well as mild rightward deviation of the osseous septum. No nasal cavity masses. Trace left mastoid effusion. IMPRESSION: 1. Minimal paranasal sinus mucosal disease. No air-fluid levels to suggest acute sinusitis. 2. Postsurgical changes of endoscopic sinus surgery. 3. Mild sinusoidal nasal septal deviation. Please note that all CT scans at this facility use dose modulation, iterative reconstruction, and/or weight-based dosing when appropriate to reduce radiation dose to as low as reasonably achievable. Dictated by Jack Gao MD @ 03/07/2023 11:26:27 PM (Electronically Signed)
== END 2023-03-07 14:44 | disposition home or self-care (01) ==
PROVIDERS: PCP Nurse Practitioner Family; Visit Provider Nurse Practitioner Family
DX: J34.89 Other specified disorders of nose and nasal sinuses (principal); J34.2 Deviated nasal septum
CPT/HCPCS: 70486

== ENCOUNTER 2024-02-01 14:24 | Outpatient (CLI) | payer OTHER, SELFPAY ==
--- OUTSIDE RECORDS SUMMARY | 2024-02-01 14:26 | XMS_ITS | Clinical Summary ---
Author Organization [facility] Address [address] [place] [address] Care Team Providers Care Meter Installer Name Role Phone Elsewhere, Pcp Primary Care Provider Unavailabl e Source Comments Patient records contain information from all sites at [facility]. For routine questions regarding patient records, call [phone] during business hours, M-F 8:00 AM - 5:00 PM Central Time. Record requests for emergency care only can be directed to [phone] at any time.[facility] Allergies Active Allergy Reactions Criticality Noted Date Comments Amoxicillin-Pot Clavulanate GI intolerance Medium 01/15 Ciprofloxacin GI intolerance Medium 01/24/2007 Nausea & Vomiting Clavulanic Acid GI intolerance 08/29/2023 Silicone Rash Medium 08/21/2010 Medications docusate sodium (COLACE) 100 mg capsule Active ibuprofen (ADVIL,MOTRIN) 600 mg tablet TAKE 1 TABLET BY MOUTH EVERY SIX HOURS NEEDED 30 tablet Active guaiFENesin (MUCINEX) 600 mg 12 hr tablet 600 mg orally every 12 hours for 30 days 60 tablet 1 Active ketorolac (TORADOL) 10 mg tablet Take 1 tablet (10 mg total) by mouth every 4 to 6 hours as needed for pain for 5 days. Do not exceed 4 tablets per day 14 tablet 6 01/11/20 23 2:28 PM CDT Active azelastine (ASTELIN) 137 mcg/spray (0.1 %) nasal spray Administer 1-2 sprays into each nostril 2 (two) times a day. Use in each nostril as directed 90 mL 1 04/21/19 10:49 AM BOOK MENDER 022 Active ondansetron ODT (ZOFRAN-ODT) 4 mg disintegrating tablet Dissolve 1 tablet (4 mg total) in the mouth every 12 (twelve) hours. 10 tablet 023 Active ibuprofen (MOTRIN) 600 mg tablet Take 1 tablet (600 mg total) by mouth every 6 (six) hours as needed for Pain 60 tablet 06/25/19 2:00 PM BOOK MENDER 023 Active acetaminophen (TYLENOL) 500 mg tablet Take 2 tablets (1,000 mg total) by mouth every 6 (six) hours as needed for Pain. 100 tablet 06/25/19 2:00 PM BOOK MENDER 023 Active tamsulosin (FLOMAX) 0.4 mg 24 hr capsule Take 1 capsule (0.4 mg) orally daily to prevent bladder spasm 7 capsule 06/28/19 10:18 AM CDT 023 Active nicotine (Nicotrol) 10 mg inhaler 1 inhaled 4 to 8 times per day As Needed for nicotine cravings for 30 days 168 each 6 023 Active phentermine-topir amate (Qsymia) 15-92 mg capsule, ER multiphase 24 hr ext release capsule 1 cap orally every 24 hours for 90 days 90 capsule 3 023 Active phentermine-topir amate (Qsymia) 15-92 mg capsule, ER multiphase 24 hr ext release capsule Take 1 capsule by mouth daily. 90 capsule 023 Active phentermine-topir amate (Qsymia) 15-92 mg capsule, ER multiphase 24 hr ext release capsule Take 1 capsule by mouth daily. 90 capsule 023 Active phentermine 15 mg capsule Take 1 capsule (15 mg) orally every day for 90 days; must administer 2 hours after breakfast 90 capsule 07/29/19 4:30 PM CDT 023 Active cholecalciferol, vitamin D3, (cholecalciferol) 25 mcg (1,000 Unit) tablet Take 50 mcg by mouth daily with breakfast. 023 Active phenylephrine-pra peiyjm-xiclzuxj-m mitch petrolatum (Preparation H Maximum Strength) 0.25-1 % cream 1 applic rectally 2 to 4 times per day As Needed for hemorrhoids for 30 days 51 g 3 023 Active pseudoephedrine (Sudogest) 30 mg tablet Take 1 tablet (30 mg total) by mouth 3 (three) times a day. 24 tablet 12/02/19 23 12:37 PM CDT 023 Active penicillin V potassium (VEETIDS) 500 mg tablet Take 1 tablet (500 mg total) by mouth 4 (four) times a day until gone 40 tablet 12/27/19 23 5:20 PM CDT 023 Active oxyCODONE (ROXICODONE) 5 mg immediate release tablet Take 1 tablet (5 mg total) by mouth every 4 (four) hours as needed. 20 tablet 02/01/20 23 2:23 PM CDT 023 Active varenicline (Chantix Continuing Month Box) 1 mg tablet Administer after eating and with a full glass of water. Maintenance (day 8 and later): 1 mg twice daily. Set gradual quit date as discussed. 112 tablet 023 Active varenicline (Chantix Starting Month Box) 0.5 mg (11)- 1 mg (42) tablet Administer after eating and with a full glass of water. Initial: Days 1 to 3: 0.5 mg once daily. Days 4 to 7: 0.5 mg twice daily. Maintenance (day 8 and later): 1 mg twice daily. Set gradual quit date as discussed. 53 tablet 03/22/20 23 12:20 PM BOOK MENDER 023 Active fluticasone propionate (Flonase) 50 mcg/actuation nasal spray Administer 2 sprays into each nostril daily for 10 days. 16 g 12 02/01/20 24 10:42 AM CDT 023 2023 Active cetirizine (ZyrTEC) 10 mg tablet Take 1 tablet (10 mg total) by mouth daily as needed. 90 tablet 3 01/16/20 24 12:14 PM CDT 023 Active doxepin (SILENOR) 3 mg tablet Take 1 tablet (3 mg total) by mouth at bedtime as needed. 90 tablet 3 024 Active doxepin (SINEquan) 10 mg/mL concentrated solution Take 0.3 mL (3 mg total) by mouth at bedtime as needed for insomnia 120 mL 1 07/04/19 24 4:53 PM CDT 024 Active azelastine (ASTELIN) 137 mcg/spray (0.1 %) nasal spray Administer 1-2 sprays into each nostril 2 (two) times a day. 30 mL 1 07/25/19 24 3:58 PM T 024 Active magnesium oxide (Mag-Ox) 400 mg (241.3 mg magnesium) tablet Take 1 tablet (400 mg total) by mouth daily. 120 tablet 2 12/05/19 3:39 PM T 024 Active hydrOXYzine (VistariL) 25 mg capsule Take 1 capsule (25 mg total) by mouth 3 (three) times a day as needed for nausea. 90 capsule 11 10/11/19 24 3:54 PM T 024 Active nicotine (Nicotrol NS) 10 mg/mL nasal spray Administer 1 spray intranasally every 60 minutes As Needed for nicotine cravings; administer into each nostril. DO NOT EXCEED 40 DOSES (80 SPRAYS) PER DAY 40 mL 1 10/13/19 24 1:03 PM T 024 Active ondansetron ODT (Zofran-ODT) 8 mg disintegrating tablet Dissolve one-half tablet (4 mg total) in the mouth 2 (two) times a day as needed for nausea or vomiting. 15 tablet 6 01/22/20 24 3:39 PM T 024 Active topiramate (Topamax) 25 mg tablet Take 1 tablet (25 mg total) by mouth daily with 100 mg tablet for a total daily dose of 125 mg. 90 tablet 3 01/16/20 24 12:14 PM T 024 Active topiramate (Topamax) 100 mg tablet Take 1 tablet (100 mg total) by mouth daily. Take 100 mg in addition to the 25 mg. 90 tablet 3 02/01/20 24 10:42 AM T 024 Active phentermine 15 mg capsule Take 1 capsule (15 mg total) by mouth daily. Take at least 2 hours after breakfast. 90 capsule 1 11/20/19 24 9:55 AM CDT 024 Active diclofenac sodium (Voltaren) 1 % gel Apply 2 g topically to left foot four times daily for 14 days; apply to single left foot 100 g 12/15/19 24 1:17 PM CDT 024 Active ondansetron ODT (Zofran-ODT) 4 mg disintegrating tablet Dissolve 1 tablet (4 mg total) in the mouth every 6 to 8 hours as needed for nausea/vomiting . 15 tablet 6 024 Active ondansetron ODT (Zofran-ODT) 4 mg disintegrating tablet Dissolve 1 tablet (4 mg total) in the mouth every 6 to 8 hours as needed for nausea or vomiting. 30 tablet 6 01/15/20 24 2:53 PM CDT 024 Active albuterol 90 mcg/actuation inhaler 2 puff inhaled every 4-6 hours As Needed for shortness of breath or wheezing for 30 days 18 g 1 024 Active famotidine (PEPCID) 10 mg tablet TAKE 1 TABLET BY MOUTH TWO TIMES A DAY 60 tablet 022 2021 Discontinued ferrous sulfate 324 mg (65 mg iron) DR tablet TAKE 1 TABLET BY MOUTH DAILY 100 tablet 021 2021 Discontinued labetaloL (NORMODYNE) 100 mg tablet TAKE 2 TABLETS BY MOUTH TWO TIMES A DAY 120 tablet 022 2021 Discontinued sertraline (ZOLOFT) 25 mg tablet TAKE 1 TABLET BY MOUTH DAILY 7 tablet 021 2021 Discontinued metoclopramide (REGLAN) 10 mg tablet TAKE 1 TABLET BY MOUTH THREE TIMES A DAY NEEDED 30 tablet 3 021 2021 Discontinued Active Problems Problem Noted Date Diagnosed Date Care And Lactating 06/28/2021 Preeclampsia Severe 06/28/2021 Shortness Of Breath 06/28/2021 Discomfort Chest 06/28/2021 Pap Smear Examination 07/23/2020 Overview (07/23/2020): 01/17/2007: NIL 09/29/2009: LSIL 06/17/2010: NIL 11/11/2011: LISSETT 1. LSIL. 01/04/2012: LISSETT 1 on Colposcopy. 08/23/2012: ASCUS HPV positive. 04/29/2013: NIL 06/13/2014: ASCUS. HPV positive (16 and 18 negative) 07/10/2014: LISSETT 1 on Colposcopy. 07/03/2015: NIL. 07/03/2017: NIL HPV negative. 07/08/2020: NIL Intrauterine Device Status 07/23/2020 Overview (07/23/2020): 11/03/2015: Mirena IUD inserted. Migraine With Aura Not Intra ctable Without Status Migrainosus 11/02/2005 Overview (07/23/2020): Problem list name updated by automated process. Provider to review Asthma Obesity Body Mass Index 30-39.9 Adult Resolved Problems Problem Noted Date Diagnosed Date Resolved Date Pain Ankle Right 12/05/2019 01/30/2020 Overview (12/05/2019): Added automatically from request for surgery [id number] Encounters Date Type Department Care Team Description 12/29/2023 Clinical Communication [facility] [phone] [place] [address] Karel Bowers, Pharm.D. from Last 3 Months Immunizations Name Administration Dates Next Due 4vHPV (discontinued) 03/17/2009 HepB (discontinued) adolesce nt/high risk 03/25/2014,05/20/2005,06/13/2003 Influenza TIV (IM) 01/24/2002 Influenza, Seasonal, Injectable 02/02/2012,02/14 Influenza, Unspecified 01/21/2014,2012,02/08/2011,2008 PPSV23 08/26/2010 SARS-COV-2 (COVID-19) - PFIZ ER (Discontinued)(12 years or older) 05/03/2021 Td (Adult), adsorbed 06/13/2003 Tdap 12/05/2013,06/13/2013,08/26/2010 influenza vaccine quad (FLUZONE/FLUARIX) (6 months and older)(PF) 01/23/2020,04/04/2019,01/24/2018,2016,01/28/2016 Family History Medical History Relation Name Comments MEDRANO - Headache Father Hypertension Father Diabetes Mother Liver Mother Liver failure Asthma Sister Anesthesia problems Neg Hx Cataracts Neg Hx Glaucoma Neg Hx Macular degeneration Neg Hx Relation Name Status Comments Father Mother Sister Social History Tobacco Use Types Packs/Day Years Used Date Smoking Tobacco: Every Day Cigarettes 0.5 16.8 Started: 2007 Smokeless Tobacco: Never Tobacco Cessation:Ready to Q uit: No; Counseling Given: Yes Comments:1/2 or less pack/d, trying to quit Alcohol Use Standard Drinks/Week Comments Not Currently 0 (1 standard drink = 0.6 oz pur e alcohol) occasional Humiliation, Afraid, Rape, and Kick questionnair e Answer Date Recorded Within the last year, have y ou been afraid of your partner or ex-partner? No 11/09/2020 Within the last year, have y ou been humiliated or emotionally abused in other ways by your partner or ex-partner? No Within the last year, have y ou been kicked, hit, slapped, or otherwise physically hurt by your partner or ex-partner? No 11/09/2020 Within the last year, have y ou been raped or forced to have any kind of sexual activity by your partner or ex-partner? No 11/09/2020 Social Connection and Isolat ion Panel [NHANES] Answer Date Recorded In a typical week, how many times do you talk on the phone with family, friends, or neighbors? More than three times a week 11/09/2020 How often do you get togethe r with friends or relatives? Twice a week 11/09/2020 How often do you attend chur ch or bahai services? More than 4 times per year 11/09/2020 Do you belong to any clubs o r organizations such as gnosticist groups, unions, fraternal or athletic groups, or school groups? No 11/09/2020 How often do you attend meet ings of the clubs or organizations you belong to? Never 11/09/2020 Are you , , di vorced, , never , or living with a partner? Living with partner 11/09/2020 AUDIT-C Answer Date Recorded Q1: How often do you have a drink containing alc ohol? Never 11/09/2020 Average Number of Drinks Not on file 021 Frequency of Binge Drinking Not on file 10/16 Overall Financial Resource Strain (CARDIA) Answe r Date Recorded How hard is it for you to pa y for the very basics like food, housing, medical care, and heating? Somewhat hard 11/09/2020 PHQ-2 Answer Date Recorded PHQ-2 Score 4 07/13/2020 [facility] - Occupational Stress Questionnaire Answer Date Recorded Do you feel stress - tense, restless, nervous, or anxious, or unable to sleep at night because your mind is troubled all the time - these days? To some extent 11/09/2020 Exercise Vital Sign Answer Date Recorde d On average, how many days pe r week do you engage in moderate to strenuous exercise (like a brisk walk)? 3 days 11/09/2020 On average, how many minutes do you engage in exercise at this level? 150+ min 11/09/2020 Hunger Vital Sign Answer Date Recorded Within the past 12 months, y ou worried that your food would run out before you got the money to buy more. Never true 11/10/19 21 Within the past 12 months, t he food you bought just didn't last and you didn't have money to get more. Never true 11/09/2020 PRAPARE - Transportation Answer Date Re corded In the past 12 months, has l ack of transportation kept you from medical appointments or from getting medications? No 10/16 In the past 12 months, has l ack of transportation kept you from meetings, work, or from getting things needed for daily living? No 11/09/2020 Housing Stability Vital Sign Answer Ortiz e Recorded In the last 12 months, was t here a time when you were not able to pay the mortgage or rent on time? Yes 11/09/2020 In the last 12 months, how many places have you lived? 1 11/09/2020 In the last 12 months, was t here a time when you did not have a steady place to sleep or slept in a penitentiary (including now)? No 11/09/2020 Depression Answer Date Recor ded PHQ-9 Total Score (max 27) 17 07/13 Nutrition Answer Date Recorded On average, how many serving s of fruits and vegetables do you eat per day (serving size is equal to 1 cup or approximately the size of a tennis ball)? 2-3 11/09/2020 Dental Answer Date Recorded Dental: Regular Dentist Unknown 11/13/19 24 Employment Answer Date Recorded Employment status Employed and actively working without restrictions 11/09/2020 Education Answer Date Recorded What is the highest level of school you have completed or the highest degree you have received? Some college, no degree 11/17/2019 Comments No Sex and Gender Information Value Date Recorded Sex Assigned at Not on file Legal Sex Female 9:27 AM BOOK MENDER Gender Identity Female 11/17/2019 7:18 AM CDT Sexual Orientation Straight 11/17/2019 7: 18 AM CDT Last Filed Vital Signs Vital Sign Reading Time Taken Comments Blood Pressure 100/77 10/23/2023 9:15 PM CDT Pulse 85 10/23/2023 9:15 PM CDT Temperature 36.2 ??C (97.2 ??F) 10/23/2023 9:15 PM CD T Respiratory Rate 20 10/23/2023 9:15 PM CDT Oxygen Saturation 99% 10/23/2023 9:15 PM CDT Inhaled Oxygen Concentration - - Weight 74 kg (163 lb 2.3 oz) 10/23/2023 7:07 PM CDT Height 157.5 cm (5' 2) 12/06/2020 4:44 PM CDT Body Mass Index 29.84 12/06/2020 4:44 PM CDT Plan of Treatment Health Maintenance Due Date Last Done Comments Mammogram 1982 Office Visit for Blood Press ure Check / Re-check 1982 HPV Vaccines (2 - 3-dose series) 04/14/2009 03/17/20 09, 03/17/2009 Pneumococcal vaccine (0-64 y ears) (2 of 2 - PCV) 08/27/2011 08/26/2010 Asthma Action Plan 12/06/2019 Asthma Control Test Questionnaire 12/06/2019 Asthma Management/Exacerbati on Questionnaire (AMQ/AEQ) 12/06/2019 Depression Screening (Annual PHQ-2) 04/17/2023 COVID-19 Vaccine ( - 2023-2 5 season) 2023 05/03/2021, 12/16/2020 Influenza Vaccine (#1) 2024 , 02/17/2022, 02/09/2021, Additional history exists Cervical Cancer Screening 11/19/20242021, 07/08/2020, 06/13/2014, Additional history exists Lipid (Cholesterol) Screening 07/08/2025 07/08/2020, 06/13/2013 DTaP,Tdap,and Td Vaccines (5 - Td or Tdap) 04/19/2031 04/19/2021, 12/05/2013, 06/13/2013, Additional history exists Hepatitis B Vaccines Completed 03/25/2014, 05/20/2005, 06/13/2003 HIV Screening Completed 07/08/2020 Hepatitis C Screening Completed 07/08/2020 Procedures Procedure Name Priority Date/Time Associated Diagnosis Comments THINPREP SCREEN HPV REFLEX Routine 07/08/2020 11:15 AM CDT Pap Smear Examination HCV AB SCRN W/REFLEX TO HCV PCR, S Routine 07/08/2020 11:08 AM CDT Screening Examination For Viral Disease HIV-1/-2 AG AND AB SCREEN, PLASMA Routine 07/08/2020 11:08 AM CDT Screening Examination For Viral Disease LIPID PANEL, S Routine 07/08/2020 11:08 AM CDT Screening Lipid from Last 3 Months or Most Recently Relevant to Health Maintenance Results * ThinPrep Screen HPV Reflex (07/08/2020 11:15 AM CDT) 07/13/2020 11:46 AM CDT ECLR Report electronically signed by MADELYN Manrique(ASCP) I verify that I have examined all relevant slides/materials for the specimen(s) and rendered or confirmed the diagnosis. 07/13/2020 11:46 AM CDT ECLR Gross Description Received specimen in a ThinPrep vial. 07/13/2020 11:46 AM CDT ECLR Pap Test Source Cervical/Endocervi beatrice 07/13/2020 11:46 AM CDT ECLR Interpretation Cervical/Endocervi beatrice ??(ThinPrep): Satisfactory for Evaluation Negative for Intraepithelial Lesion or Malignancy 07/13/2020 11:46 AM CDT ECLR Varies (Cervix/Endocerv ix) 07/08/2020 11:15 AM CDT 07/09/2020 7:59 AM CDT us Selena Cordoba M.D. LAB PAP PATHDX ORDERABLES F inal Result [facility] [address] [place] [address], [facility] ECLR [facility] [place] [address] * HIV-1/-2 Ag and Ab Screen, Plasma (07/08/2020 11:08 AM CDT) HIV Ag/Ab Screen, P Negative Negative 07/09/2020 9:16 AM CDT ECLR Comment: Negative result does not rule out HIV infection. If exposure to HIV infection occurred <14 days ago, contact the laboratory to request addition of HIV-1 RNA detection / quantification test. HIV-1 p24 Ag Screen, P Negative Negative 07/09/2020 9:16 AM CDT ECLR Comment: Negative result does not rule out HIV infection. If exposure to HIV infection occurred <14 days ago, contact the laboratory to request addition of HIV-1 RNA detection / quantification test. HIV-1 Ab Screen, P Negative Negative 2020 9:16 AM CDT ECLR Comment: Negative result does not rule out HIV infection. If exposure to HIV infection occurred <14 days ago, contact the laboratory to request addition of HIV-1 RNA detection / quantification test. HIV-2 Ab Screen, P Negative Negative 2020 9:16 AM CDT ECLR Comment: Negative result does not rule out HIV infection. If exposure to HIV infection occurred <14 days ago, contact the laboratory to request addition of HIV-1 RNA detection / quantification test. Blood (Blood, Venous) 07/08/2020 11:08 AM CDT 07/08/2020 9:14 PM CDT us Selena Cordoba M.D. LAB MICROBIOLOGY - BLOOD OR DERABLES Final Result [facility] [address] [place] [id number], [facility] ECLR [facility] in [address] [address] * (ABNORMAL) Lipid Panel (07/08/2020 11:08 AM CDT) Cholesterol, Total 233(H) mg/dL 2020 11:42 AM CDT CNFL Comment: ----REFERENCE VALUE---- Desirable: < 200 Borderline high: 200 - 239 High: > or = 240 Triglycerides 116 mg/dL 07/08/2020 11:42 AM CDT [facility]FL Comment: ----REFERENCE VALUE---- Normal: <150 Borderline high: 150-199 High: 200-499 Very high: > or =500 Cholesterol, HDL 64 >=50 mg/dL 07/09/19 11:42 AM CDT [facility]FL Calculated LDL 146(H) mg/dL 07/08/2020 11:42 AM CDT [facility]FL Comment: ----REFERENCE VALUE---- Desirable: <100 Above Desirable: 100-129 Borderline high: 130-159 High: 160-189 Very high: > or =190 Cholesterol, Non-HDL, Calculated 169(H) mg/dL 07/08/2020 11:42 AM CDT CNFL Comment: ----REFERENCE VALUE---- Desirable: <130 Above Desirable: 130-159 Borderline high: 160-189 High: 190-219 Very high: > or =220 Blood (Blood, Venous) 07/08/2020 11:08 AM CDT 07/08/2020 11:12 AM CDT us Selena Cordoba M.D. LAB BLOOD ADD-ON Final Resu lt [facility] [address] [place] [id number], [facility] CNFL [facility] in [address] [address] * HCV Ab Scrn w/Reflex to HCV PCR, Serum (07/08/2020 11:08 AM CDT) HCV Ab Screen, S Negative Negative 07/10/19 1:09 AM CDT ECLR Comment: Biotin has been identified by the car shifter as a potential interfering substance. ??Higher concentrations of biotin may be found in multivitamins, hair/nail supplements, and workout supplements. ??If the result does not match clinical observations, repeat testing after patient refrains from the use of supplements for at least 12 hours. Blood (Blood, Venous) 07/08/2020 11:08 AM CDT 07/08/2020 9:15 PM CDT Narrative [facility] - 07/09/2020 1:09 AM CDT Specimen Information: Specimen ID: [id number] Specimen Type: Blood Specimen Collection Start Date: 07/08/2020 11:08 AM Specimen Received Date: 07/08/2020 ??9:15 PM Specimen ID: [id number] Specimen Type: Blood Specimen Collection Start Date: 07/08/2020 11:08 AM Specimen Received Date: 07/08/2020 ??9:14 PM us Selena Cordoba M.D. LAB MICROBIOLOGY - BLOOD OR DERABLES Final Result Performing Organization Address City/[facility]/ZIP Co de Phone Number [facility] [address] [place] [phone], [facility] ECLR [facility] in [address] [address] from Last 3 Months or Most Recently Relevant to Health Maintenance Insurance [facility] [place] [id number] CHARAN MONTANO [id number] Care Teams Meter Installer Relationship Specialty Start Date End Date Elsewhere, Pcp PCP - General Internal Medicine 08/31/21
--- OUTSIDE RECORDS SUMMARY | 2024-02-01 14:26 | XMS_ITS | Clinical Summary ---
Author Organization [facility] Address [place], [place] [address] Care Team Providers Care Refueling Rampman Name Role Phone Unknown, Doctor Primary Care Provider Unavailabl e Allergies Active Allergy Reactions Criticality Noted Date Comments Amoxicillin-Pot Clavulanate GI Upset 01/04/20 12 Ciprofloxacin *Unknown 01/04/2012 Medications Medication Sig Dispensed Refills Start Date End Date Status fexofenadine (KAILYN) 180 mg tablet One tab PO Q HS X 2 month supply 60 tablet 3 01/04/2012 Active azelastine 137 mcg/actuation nasal (ASTELIN) 137 mcg nasal spray 2 puffs each nostril BID X 2 month supply 1 Bottle 3 01/04/2012 Active Social History Tobacco Use Types Packs/Day Years Used Date Smoking Tobacco: Every Day Smokeless Tobacco: Never Tobacco Cessation:Ready to Q uit: No; Counseling Given: Yes Alcohol Use Standard Drinks/Week Comments No 0 (1 standard drink = 0.6 oz pur e alcohol) Sex and Gender Information Value Date Recorded Sex Assigned at Not on file Gender Identity Not on file Sexual Orientation Not on file Obstetrics History Last Filed [...] age 18+ 2000 Hepatitis C screening for ag e 18-79 2000 Tetanus booster 2002 COVID-19 vaccine series ( season) 2023 05/03/2021 Influenza for age 9-49 12/17/2023 Pap test for age 21-65 11/19/2024 2, 04/29/2013 Pneumococcal series for age 6-64 Aged Out No longer eligible b ased on patient's age to complete this topic Procedures Procedure Name Priority Date/Time Associated Diagnosis Comments MANAGER RN THIN PREP PAP SCREEN IMAGED Routine 11/19/2021 11:34 AM CDT from Last 3 Months or Most Recently Relevant to Health Maintenance Results * MANAGER RN THIN PREP PAP SCREEN IMAGED (11/19/2021 11:34 AM CDT) Case Report Gynecologic Cytology Report ? Case: [id number] ? Authorizing Provider: ??Alia Roberts, SOFTWARE INTERN ?Collected: ? 11/19/2021 1134 ? Ordering Location: ? [facility] ?Received: ?11/22/2021 1537 ? First Screen: ?Jerardo, Xon Marc ? Specimen: ?MANAGER RN ThinPrep Vial Screening, Cervical/Vaginal ? 12/06/2021 10:34 AM CDT [facility] INTERPRETATION/ RESULT NEGATIVE FOR INTRAEPITHELIAL LESION OR MALIGNANCY (NIL) (none) 12/06/2021 10:34 AM CDT [facility] IMEN ADEQUACY Satisfactory for evaluation No endocervical component seen 12/06/2021 10:34 AM CDT [facility] HPV REQUEST HPV not requested 2021 10:34 AM CDT [facility] Additional Information 12/06/2021 10:34 AM T [facility] Comment: Interpreted at [facility] - [address], [place] [address] Automated Review Successful 12/06/2021 10:34 AM T [facility] Comment:Specimen processed s uccessfully by automated web sizer device, ThinPrep Imaging System, [employer] Note The pap test is a screening technique, not a diagnostic procedure. It is used primarily to screen for squamous cancers and precursor lesions. Published studies have shown that it is subject to both false negative and false positive results. The pap test should not be used as the sole means to diagnose or exclude pre-malignant and malignant lesions. 12/06/2021 10:34 AM T [facility] Other (Cervical/Vagina l) 11/19/2021 11:34 AM CDT 11/22/2021 3:37 PM CDT Alia Roberts NP PATHOLOGY/CYTOLOGY [facility] [address] [place] [address], [place] from Last 3 Months or Most Recently Relevant to Health Maintenance Care Teams Refueling Rampman Relationship Specialty Start Date End Date Unknown, Doctor . PCP - General Emergency Medicine 04/08/11
--- OUTSIDE RECORDS SUMMARY | 2024-02-01 14:27 | XMS_ITS ---
Author Organization [facility] Address [address] [place] [address] Care Team Providers Care Farmer Cash Grain Name Role Phone Unavailable Unavailable Unavailable Surgery Details Not on file Complications Check Surgery Details section. Procedure Estimated Blood Loss Check Surgery Details section. Procedure Findings Check Surgery Details section. Procedure Specimens Taken Check Surgery Details section.
--- OUTSIDE RECORDS SUMMARY | 2024-02-01 14:27 | XMS_ITS | Referral Summary ---
Author Organization [facility] Address [address] [place] [address] Care Team Providers Care Rent And Housing Investigator Name Role Phone Elsewhere, Pcp Primary Care Provider Unavailabl e Source Comments Patient records contain information from all sites at [facility]. For routine questions regarding patient records, call [phone] during business hours, M-F 8:00 AM - 5:00 PM Central Time. Record requests for emergency care only can be directed to [phone] at any time.[facility] Encounters Date Type Department Care Team Description 12/29/2023 Clinical Communication [facility] Mail [address] [place] [address] Karel Bowers, Pharm.D. from Last 3 Months Allergies Active Allergy Reactions Criticality Noted Date [...] tablets per day 14 tablet 6 01/11/20 2:28 PM CDT 022 Active azelastine (ASTELIN) 137 mcg/spray (0.1 %) nasal spray Administer 1-2 sprays into each nostril 2 (two) times a day. Use in each nostril as directed 90 mL 1 04/21/19 10:49 AM FLYER BUILDER 022 Active ondansetron ODT (ZOFRAN-ODT) 4 mg disintegrating tablet Dissolve 1 tablet (4 mg total) in the mouth every 12 (twelve) hours. 10 tablet 023 Active ibuprofen (MOTRIN) 600 mg tablet Take 1 tablet (600 mg total) by mouth every 6 (six) hours as needed for Pain 60 tablet 06/25/19 2:00 PM FLYER BUILDER 023 Active acetaminophen (TYLENOL) 500 mg tablet Take 2 tablets (1,000 mg total) by mouth every 6 (six) hours as needed for Pain. 100 tablet 06/25/19 2:00 PM FLYER BUILDER 023 Active tamsulosin (FLOMAX) 0.4 mg 24 [...] 2 hours after breakfast 90 capsule 07/29/19 23 4:30 PM CDT 023 Active cholecalciferol, vitamin D3, (cholecalciferol) 25 mcg (1,000 Unit) tablet Take 50 mcg by mouth daily with breakfast. 023 Active phenylephrine-pra uaqrvb-juptbitd-d mitch petrolatum (Preparation H Maximum Strength) 0.25-1 [...] discussed. 53 tablet 03/22/20 23 12:20 PM FLYER BUILDER 023 Active fluticasone propionate (Flonase) 50 mcg/actuation [...] 30 mL 1 07/25/19 24 3:58 PM CDT 024 Active magnesium oxide (Mag-Ox) 400 mg (241.3 mg magnesium) tablet Take 1 tablet (400 mg total) by mouth daily. 120 tablet 2 12/05/19 24 3:39 PM CDT 024 Active hydrOXYzine (VistariL) 25 mg capsule Take 1 capsule (25 mg total) by mouth 3 (three) times a day as needed for nausea. 90 capsule 11 10/11/19 24 3:54 PM CDT 024 Active nicotine (Nicotrol NS) 10 mg/mL nasal spray Administer 1 spray intranasally every 60 minutes As Needed for nicotine cravings; administer into each nostril. DO NOT EXCEED 40 DOSES (80 SPRAYS) PER DAY 40 mL 1 10/13/19 24 1:03 PM CDT 024 Active ondansetron ODT (Zofran-ODT) 8 mg disintegrating tablet Dissolve one-half tablet (4 mg total) in the mouth 2 (two) times a day as needed for nausea or vomiting. 15 tablet 6 01/22/20 24 3:39 PM CDT 024 Active topiramate (Topamax) 25 mg tablet Take 1 tablet (25 mg total) by mouth daily with 100 mg tablet for a total daily dose of 125 mg. 90 tablet 3 01/16/20 24 12:14 PM CDT 024 Active topiramate (Topamax) 100 mg tablet Take 1 tablet (100 mg total) by mouth daily. Take 100 mg in addition to the 25 mg. 90 tablet 3 02/01/20 24 10:42 AM CDT Active phentermine 15 mg capsule Take 1 [...] 06/17/2010: NIL 11/11/2011: LISSETT 1. LSIL. 01/04/2012: LSISETT 1 on Colposcopy. 08/23/2012: ASCUS HPV positive. [...] (12/05/2019): Added automatically from request for surgery [id number] Immunizations Name Administration Dates Next Due 4vHPV (discontinued) 03/17/2009 HepB (discontinued) adolesce nt/high risk 03/25/2014,05/20/2005,06/13/2003 Influenza TIV (IM) 01/24/2002 Influenza, Seasonal, Injectable 02/02/2012,02/14 Influenza, Unspecified 01/21/2014,2012,02/08/2011,2008 PPSV23 08/26/2010 SARS-COV-2 (COVID-19) - PFIZ ER (Discontinued)(12 years or older) 05/03/2021 Td (Adult), adsorbed 06/13/2003 Tdap 12/05/2013,06/13/2013,08/26/2010 influenza vaccine quad (FLUZONE/FLUARIX) (6 months and older)(PF) 01/23/2020,04/04/2019,01/24/2018,2016,01/28/2016 Social History Tobacco Use Types Packs/Day Years [...] often do you attend chur ch or quaker services? More than 4 times per year 11/09/2020 Do you belong to any clubs o r organizations such as sabianist groups, unions, fraternal [...] Answer Date Recorded PHQ-2 Score 4 07/13/2020 [facility] - Occupational Stress Questionnaire Answer Date Recorded [...] Date Recorded Dental: Regular Dentist Unknown 11/13/19 Employment Answer Date Recorded Employment status Employed and actively working without restrictions 11/09/2020 Education Answer Date Recorded What is the highest level of school you have completed or the highest degree you have received? Some college, no degree 11/17/2019 Comments No Sex and Gender Information Value Date Recorded Sex Assigned at Not on file Legal Sex Female 9:27 AM FLYER BUILDER Gender Identity Female 11/17/2019 7:18 AM CDT [...] 12/06/2020 4:44 PM CDT Plan of Treatment Not on file Procedures Procedure Name Priority Date/Time Associated Diagnosis [...] LAB PAP PATHDX ORDERABLES F inal Result [facility] [address] [place] [address], [facility] ECLR [facility] [address] * HIV-1/-2 Ag and Ab Screen, Plasma [...] 11:08 AM CDT 07/08/2020 9:14 PM CDT Selena Cordoba M.D. LAB MICROBIOLOGY - BLOOD OR DERABLES Final Result [facility] [address] [place] [address], [facility] [place] [facility] [address] * (ABNORMAL) Lipid Panel (07/08/2020 11:08 AM CDT) [facility] Cholesterol, Total 233(H) mg/dL 2020 11:42 AM [...] M.D. LAB BLOOD ADD-ON Final Resu lt [facility] [address] [place] [address], [facility] [place] [address] * HCV Ab Scrn w/Reflex to HCV PCR, Serum (07/08/2020 11:08 AM CDT) HCV Ab Screen, S Negative Negative 07/10/19 1:09 AM CDT ECLR Comment: Biotin has been identified by the getter operator as a potential interfering substance. ??Higher concentrations of biotin may be found in multivitamins, hair/nail supplements, and workout supplements. ??If the result does not match clinical observations, repeat testing after patient refrains from the use of supplements for at least 12 hours. Blood (Blood, Venous) 07/08/2020 11:08 AM CDT 07/08/2020 9:15 PM CDT Narrative [facility] - 07/09/2020 1:09 AM CDT Specimen Information: Specimen ID: [id number] Specimen Type: Blood Specimen Collection Start Date: 07/08/2020 11:08 AM Specimen Received Date: 07/08/2020 ??9:15 PM Specimen ID: [id number] Specimen Type: Blood Specimen Collection Start Date: 07/08/2020 11:08 AM Specimen Received Date: 07/08/2020 ??9:14 PM us Selena Cordoba M.D. LAB MICROBIOLOGY - BLOOD OR DERABLES Final Result [facility] [address] [place] [address], [place] [facility] [place] [address] [place] [address] from Last 3 Months or Most Recently Relevant to Health Maintenance [place] [facility] [place] [address] [id number] Care Teams Rent And Housing Investigator Relationship Specialty Start Date End Date Elsewhere, Pcp PCP - General Internal Medicine 08/31/21
--- OUTSIDE RECORDS SUMMARY | 2024-02-01 14:27 | XMS_ITS | Encounter Summary ---
Author Organization [facility] Address [address] [place] [address] Care Team Providers Care Thermometer Maker Name Role Phone Elsewhere, Pcp Primary Care Provider Unavailabl e Reason for Visit * Reason Comments Headache 43 yo presents to [facility] ED via private vehicle with c/o headache at the base of her neck/head with dizziness, and lightheadedness. Patient reports this is not a typical migraine for her, she was nauseous and took Zofran around 1600 which helped relieve her nausea. Patient is concerned she is possibly dehydrated because she spent the day [facility] the [facility]. Encounter Details Date Type Department Care Team (Late Contact Info) Description 10/23/2023 7:01 PM CDT - 10/23/2023 9:16 PM CDT Emergency [facility] [address] [place] [address] [phone] Micheline Hess P.A.Trini., P.A., M.S. [address] [place] [phone] Migraine Headache (Primary Dx) Discharge Disposition: Home or Self Care Social History Tobacco Use Types Packs/Day Years Used Date Smoking Tobacco: Every Day Cigarettes 0.5 16.8 Started: 2007 Smokeless Tobacco: Never Comments:1/2 or less pack/d, trying to quit [...] week 11/09/2020 How often do you attend [facility] or caodaism services? More than 4 times per year 11/09/2020 Do you belong to any clubs o r organizations such as buddhism groups, unions, fraternal [...] Answer Date Recorded PHQ-2 Score 4 07/13/2020 [facility] Occupat ional Health - Occupational Stress [...] slept in a care home (including now)? No 11/09/2020 Depression Answer Date Recor ded PHQ-9 Total Score (max 27) 17 07/13 Nutrition Answer Date Recorded On average, how many serving s of fruits and vegetables do you eat per day (serving size is equal to 1 cup or approximately the size of a tennis ball)? 2-3 11/09/2020 Dental Answer Date Recorded Dental: Regular Dentist Yes 04/18/19 Employment Answer Date Recorded Employment status Employed and actively working without restrictions 11/09/2020 Education Answer Date Recorded What is the highest level of school you have completed or the highest degree you have received? 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 - 10/23/2023 9:05 PM CDT Take Tylenol and/or Ibuprofen for pain relief, as needed. You may alternate these medications if one alone does not provide enough relief in pain. Take your home prescription medication, as prescribed. Stay well hydrated by drinking plenty of fluids. Follow up with your primary care provider for reassessment. Return to the ER if your symptoms worsen. * Attachments The following attachments cannot be sent through Care Everywhere. * Migraine Headache Juge-ms-Xnum (Hebrew) documented in this encounter Medications at Time of Discharge acetaminophen (TYLENOL) 500 mg tablet Take 2 tablets (1,000 mg total) by mouth every 6 (six) hours as needed for Pain. 100 tablet 06/24/2022 2:00 PM SURVEY DATA TECHNICIAN azelastine (ASTELIN) 137 mcg/spray (0.1 %) nasal spray Administer 1-2 sprays into each nostril 2 (two) times a day. Use in each nostril as directed 90 mL 1 04/21/2022 10:49 AM SURVEY DATA TECHNICIAN 12/21/202 2 azelastine (ASTELIN) 137 mcg/spray (0.1 %) nasal spray Administer 1-2 sprays into each nostril 2 (two) times a day. 30 mL 1 07/25/2023 3:58 PM CDT 4 cetirizine (ZyrTEC) 10 mg tablet Take 1 tablet (10 mg total) by mouth daily as needed. 90 tablet 3 01/16/2024 12:14 PM CDT 3 cholecalciferol, vitamin D3, (cholecalciferol) 25 mcg (1,000 Unit) tablet Take 50 mcg by mouth daily with breakfast. 3 docusate sodium (COLACE) 100 mg capsule 2 doxepin (SILENOR) 3 mg tablet Take 1 tablet (3 mg total) by mouth at bedtime as needed. 90 tablet 3 4 doxepin (SINEquan) 10 mg/mL concentrated solution Take 0.3 mL (3 mg total) by mouth at bedtime as needed for insomnia 120 mL 1 07/04/2023 4:53 PM CDT 4 fluticasone propionate (Flonase) 50 mcg/actuation nasal spray Administer 2 sprays into each nostril daily for 10 days. 16 g 12 02/01/2024 10:42 AM CDT 3 03/02/20 24 guaiFENesin (MUCINEX) 600 mg 12 hr tablet 600 mg orally every 12 hours for 30 days 60 tablet 1 2 hydrOXYzine (VistariL) 25 mg capsule Take 1 capsule (25 mg total) by mouth 3 (three) times a day as needed for nausea. 90 capsule 11 10/11/2023 3:54 PM CDT 4 ibuprofen (MOTRIN) 600 mg tablet Take 1 tablet (600 mg total) by mouth every 6 (six) hours as needed for Pain 60 tablet 06/24/2022 2:00 PM SURVEY DATA TECHNICIAN 3 ketorolac (TORADOL) 10 mg tablet Take 1 tablet (10 mg total) by mouth every 4 to 6 hours as needed for pain for 5 days. Do not exceed 4 tablets per day 14 tablet 6 01/10/2023 2:28 PM CDT 2 magnesium oxide (Mag-Ox) 400 mg (241.3 mg magnesium) tablet Take 1 tablet (400 mg total) by mouth daily. 120 tablet 2 12/05/2023 3:39 PM CDT 4 nicotine (Nicotrol NS) 10 mg/mL nasal spray Administer 1 spray intranasally every 60 minutes As Needed for nicotine cravings; administer into each nostril. DO NOT EXCEED 40 DOSES (80 SPRAYS) PER DAY 40 mL 1 10/13/2023 1:03 PM CDT 4 nicotine (Nicotrol) 10 mg inhaler 1 inhaled 4 to 8 times per day As Needed for nicotine cravings for 30 days 168 each 6 3 ondansetron ODT (ZOFRAN-ODT) 4 mg disintegrating tablet Dissolve 1 tablet (4 mg total) in the mouth every 12 (twelve) hours. 10 tablet 3 ondansetron ODT (Zofran-ODT) 8 mg disintegrating tablet Dissolve one-half tablet (4 mg total) in the mouth 2 (two) times a day as needed for nausea or vomiting. 15 tablet 6 01/22/2024 3:39 PM CDT 4 oxyCODONE (ROXICODONE) 5 mg immediate release tablet Take 1 tablet (5 mg total) by mouth every 4 (four) hours as needed. 20 tablet 01/31/2023 2:23 PM CDT 3 penicillin V potassium (VEETIDS) 500 mg tablet Take 1 tablet (500 mg total) by mouth 4 (four) times a day until gone 40 tablet 12/26/2022 5:20 PM CDT 3 phentermine 15 mg capsule Take 1 capsule (15 mg) orally every day for 90 days; must administer 2 hours after breakfast 90 capsule 07/28/2022 4:30 PM CDT 3 phentermine-topiram ate (Qsymia) 15-92 mg capsule, ER multiphase 24 hr ext release capsule 1 cap orally every 24 hours for 90 days 90 capsule 3 3 phentermine-topiram ate (Qsymia) 15-92 mg capsule, ER multiphase 24 hr ext release capsule Take 1 capsule by mouth daily. 90 capsule 3 phentermine-topiram ate (Qsymia) 15-92 mg capsule, ER multiphase 24 hr ext release capsule Take 1 capsule by mouth daily. 90 capsule 3 phenylephrine-pramo tbki-ltafrscs-hsyqi petrolatum (Preparation H Maximum Strength) 0.25-1 % cream 1 applic rectally 2 to 4 times per day As Needed for hemorrhoids for 30 days 51 g 3 3 pseudoephedrine (Sudogest) 30 mg tablet Take 1 tablet (30 mg total) by mouth 3 (three) times a day. 24 tablet 12/01/2022 12:37 PM CDT 3 tamsulosin (FLOMAX) 0.4 mg 24 hr capsule Take 1 capsule (0.4 mg) orally daily to prevent bladder spasm 7 capsule 06/27/2022 10:18 AM CDT 3 topiramate (Topamax) 100 mg tablet Take 1 tablet (100 mg total) by mouth daily. Take 100 mg in addition to the 25 mg. 90 tablet 3 02/01/2024 10:42 AM CDT 4 topiramate (Topamax) 25 mg tablet Take 1 tablet (25 mg total) by mouth daily with 100 mg tablet for a total daily dose of 125 mg. 90 tablet 3 01/16/2024 12:14 PM CDT 4 varenicline (Chantix Continuing Month Box) 1 mg tablet Administer after eating and with a full glass of water. Maintenance (day 8 and later): 1 mg twice daily. Set gradual quit date as discussed. 112 tablet 3 varenicline (Chantix Starting Month Box) 0.5 mg (11)- 1 mg (42) tablet Administer after eating and with a full glass of water. Initial: Days 1 to 3: 0.5 mg once daily. Days 4 to 7: 0.5 mg twice daily. Maintenance (day 8 and later): 1 mg twice daily. Set gradual quit date as discussed. 53 tablet 03/22/2023 12:20 PM SURVEY DATA TECHNICIAN 3 ondansetron ODT (Zofran-ODT) 4 mg disintegrating tablet Dissolve 1 tablet (4 mg total) in the mouth every 6 to 8 hours as needed for nausea or vomiting. 15 tablet 6 11/27/2023 4:58 PM CDT 4 12/28/19 24 documented as of this encounter ED Notes * Micheline Hess P.A.-C., Braydon, M.S. - 10/23/2023 7:03 PM CDT CHIEF COMPLAINT/REASON FOR VISIT Headache (43 yo presents to the ED via private vehicle with c/o headache at the base of her neck/head with dizziness, and lightheadedness. Patient reports this is not a typical migraine for her, she was nauseous and took Zofran around 1600 which helped relieve her nausea. Patient is concerned she is possibly dehydrated because she spent the day [place] the [facility]. ) PHYSICAL EXAMINATION Nursing notes reviewed. Initial Vitals Temperature 10/23/23 1908 37 ??C Pulse Rate 10/23/23 1908 81 Heart Rate -- Resp Rate 10/23/238 20 Blood Pressure 10/23/231907 112/79 SpO2 10/23/231907 96 % Pain Score 10/23/237 4 Vitals: 10/23/23 2030 10/23/23 2045 10/23/23 2100 10/23/235 BP: 104/81 108/88 100/77 100/77 BP Location: Left arm Patient Position: Sitting Pulse: 74 75 85 Resp: 20 Temp: 36.2 ??C TempSrc: Temporal SpO2: 100% 98% 99% Weight: General: Awake, alert, oriented x3. Well-developed, hydrated and nourished. Appears stated age. Nontoxic. No apparent distress. Head: Normocephalic, atraumatic. No masses or depressions. Eyes: Normal sclerae and conjunctivae, PERRLA, extraocular movements intact ENT: Oropharynx is clear. Tongue is midline and normal in appearance without lesions. No buccal lesions noted. No posterior pharyngeal erythema or exudate. No tonsillar enlargement. Nose is symmetric. Nares patent. Moist mucus membranes. EACs clear. TMs are normal in appearance with normal landmarks and cone of light. Hearing is grossly normal. Neck: Supple, full range of motion, no masses, trachea midline, no lymphadenopathy, no meningeal signs, no Cspine tenderness. Heart: Regular rate and rhythm. S1 and S2 normal. No murmurs, gallops, or rubs. Chest/Lungs: Normal respiratory effort. No labored breathing. No stridor, retractions, or respiratory distress. Lungs clear to auscultation bilaterally. No wheezing, rales, or rhonchi. Abd: Soft, symmetric, nontender, nondistended, normal bowel sounds. No masses or organomegaly. No rebound or guarding. Back: Normal to inspection. No deformity or external signs of trauma. Posture is upright. Normal curvature of spine. No spinal or paraspinal tenderness, no costovertebral angle tenderness. No discomfort is noted with movement. Ext: Warm, well-perfused. No cyanosis, clubbing, or edema. No bruising, swelling or deformity. Motor function is normal with full strength bilaterally to upper and lower extremities. Normal range of motion without bony tenderness. Gait is smooth and steady. Skin: Warm, dry, normal color for ethnicity. No rashes or diaphoresis. Nailbeds pink with no cyanosis or clubbing. Neuro: Awake, alert. Oriented x 3. Follows simple/complex commands. GCS 15. Cognition normal. Speech clear, tongue function normal. No aphasia or dysarthria. Normal language processing. No facial droop, visual field deficit, gaze deviation, nystagmus or neglect. No CN palsies. No pronator drift. Full and symmetric barking machine feeder strength. Normal dorsi/plantar flexion of ankles bilaterally. SILT. Patient able to sit upright/ambulate without difficulty. No ataxia. Able to heel and toe walk. Stable tandem gait. No cerebellar signs, zxfqdg-eovq-jgenss, heel/kumar and MALCOLM testing all normal. Vascular: Peripheral pulses symmetric, normal cap refill. Psych: Pleasant and appropriate. ED Course as of 10/23/232355Oct 23, 20231924 Met with patient to perform history and physical exam, outline emergency department work up and initial treatment, as well as explain expected time frame. 2019 The patient was reassessed. Headache has improved to 1/10. Will complete fluid bolus and reassess. 2103 The patient was reassessed and reports improvement in symptoms and feels comfortable discharging home. Will prepare for discharge. Final Diagnoses: as of 10/23/232355 Migraine Headache MEDICAL DECISION MAKING: Dulce Lei is a 43 y.o. female with the following comorbidities affecting her care: Asthma,obesity, migraines, among other health issues. She is here for evaluation of a constant, nonradiating, dull 4/10 posterior headache since last night. She takes Topamax for migraines and also took Zofran this evening for relief. She denies any fall or head injury. She is not on anticoagulation. She reports lightheadedness, nausea and light sensitivity. She states that headache feels different thanher usual migraine in that she typically experiences frontal headaches and this one is located in the back, although she states the pain is more mild than her usual migraine headaches. She is concerned about dehydration as she spent the day [place] [employer] yesterday, however denies any alcohol or recreational drug use. She was able to work today. She denies any fevers, chills, sweats, headache, neck pain/stiffness, cough/URI symptoms, chest pain, shortness of breath, abdominal pain, nausea, vomiting, diarrhea, urinary symptoms, rash or skin changes, or other concerning symptoms. She has been eating and drinking normally. Per EMR review, the patient has frequent ER evaluations for migraine headaches. She was most recently evaluated on 09/1923 for a migraine headache. At that time, she took ibuprofen, Benadryl and Zofran. She was given Toradol, Zofran, Tylenol, and IV fluids with improvement in her symptoms. Her headache was determined to be her typical migraine and she was discharged home uneventfully. No further workup was felt warranted at that time. On ER arrival, the patient is well appearing, nontoxic with normal vitals. Exam is unrevealing. Neurologic exam is entirely normal. Differential diagnoses: Anemia, acute vestibular disease, electrolyte abnormality, arrhythmia, hypoglycemia, thyrotoxicosis, anxiety/stress, vertigo, labyrinthitis, benign positional vertigo, intracranial mass, urinary tract infection, infectious disease, dehydration, medication reaction, CVA, TIA,among others. ED course/interventions: Met with patient upon ER arrival. IV was started by RN. IVF bolus was ordered. Toradol and Compazine were given for headache relief with relief. Considered labs, however the patient has no fever, neck stiffness, or other concerning symptoms. Considered head/neck imaging, however the patient has had no injury or trauma, has no red flags or neurologic deficits to suggest a more worrisome etiology. I do not believe this patient has an intracranial tumor likely given she has no neurological deficits. I do not believe this patient has a SAH as the MEDRANO was not of sudden onset at maximal intensity. I do not believe this patient has a MEDRANO related to meningitis as she does not have fever, feel ill or have meningeal signs on exam. I do not believe that the MEDRANO is from sinusitis as the patient has no rhinorrhea or nasal congestionan no pain over sinuses. I do not believe the patient has temporal arteritis. There is no pain over the temporal arteries and no proximal muscle weakness or pain. Impression/plan: Based on history, exam and diagnostics, symptoms are most consistent with likely migraine headache. Admission/obs considered but not felt warranted at this time. Using shared decision making, the patient is felt appropriate for discharge home and she will be discharged home with OTC analgesics and home prescribed medications, maintain adequate hydration. The evaluation, plan and return precautions were reviewed with patient and she was understanding and in agreement with plan. Patient questions were answered. Close follow up with PCP advised. -- History was obtained from: the patient and EMR review. -- Nursing documentation and prior inpatient and outpatient records were reviewed in the electronicmedical record to facilitate decision making regarding patient care. -- Consultation: None -- Prescription management: No new prescriptions or changes to existing home medications. Social Determinants of Health Transportation Needs: No Transportation Needs (11/09/2020) PRAPARE - Transportation Lack of Transportation (Medical): No Lack of Transportation (Non-Medical): No Housing Stability: High Risk (11/09/2020) Housing Stability Vital Sign Unable to Pay for Housing in the Last Year: Yes Number of Places Lived in the Last Year: 1 Unstable Housing in the Last Year: No Food Insecurity: No Food Insecurity (11/09/2020) Hunger Vital Sign Worried About Running Out of Food in the Last Year: Never true Ran Out of Food in the Last Year: Never true Utilities: Not on file Intimate Partner Violence: Not At Risk (11/09/2020) Humiliation, Afraid, Rape, and Kick questionnaire Fear of Current or Ex-Partner: No Emotionally Abused: No Physically Abused: No Sexually Abused: No Physical Activity: Sufficiently Active (11/09/2020) Exercise Vital Sign Days of Exercise per Week: 3 days Minutes of Exercise per Session: 150+ min Dental: Low Risk (04/18/2022) Dental Dental: Regular Dentist: Yes Nutrition: Unknown (11/09/2020) Nutrition Nutrition: Servings of Fruits/Vegetables per Day: 2-3 Recent Concern: Nutrition - Medium Risk (11/09/2020) Nutrition Nutrition: EVOO Fat Source: No Nutrition: Servings of Fruits/Vegetables per Day: 2-3 Employment: Low Risk (11/09/2020) Employment Employment Status: Employed and actively working without restrictions PROBLEMS ADDRESSED THIS VISIT: 1. Migraine Headache Micheline Hess P.A.-C., P.A., M.S. 10/23/23 [id number] documented in this encounter Plan of Treatment Not on file documented as of this encounter Visit Diagnoses Diagnosis Migraine Headache- Primary documented in this encounter Administered Medications Inactive Administered Medications - up to 3 most recent administrations Medication Order MAR Action Action Date Dose Rate Site ketorolac injection 15 mg (ToradoL) 15 mg, intravenous, Once, On Mon10/23/23 at 1935, For 1 dose, Adult IV push rate: Over 15 seconds. Peds IV push rate: Over 1 minute. Doses > 15 mg IV/IM are discouraged due to lack of additional analgesic benefit. Given 10/23/2023 7:45 PM CDT 15 mg NaCl 0.9 % bolus 1,000 mL 1,000 mL, intravenous, at 2,000 mL/hr, Administer over 30 Minutes, Once, On Mon10/23/23 at 1935, For 1 dose New Bag 10/23/2023 7:43 PM CDT 1,000 mL 2000 mL/hr prochlorperazine injection 10 mg (Compazine) 10 mg, intravenous, Once, On Mon10/23/23 at 1935, For 1 dose Given 10/23/2023 7:45 PM CDT 10 mg sodium chloride 0.9 % injection 10 mL 10 mL, intravenous, As needed, line care, Starting on Mon10/23/23 at 1933, Peripheral Intravenous Catheter and Rapid Infusion Catheter, prior to blood sampling, post blood transfusion or post blood sampling sodium chloride 0.9 % injection 3 mL 3 mL, intravenous, As needed, line care, Starting on Mon10/23/23 at 1933, Prior to and following infusion and between multiple consecutive infusions: sodium chloride 0.9 % injection sodium chloride 0.9 % injection 3 mL 3 mL, intravenous, Every 12 hours scheduled, First dose on Mon10/23/23 at 2100, Peripheral Intravenous Catheter and Rapid Infusion Catheter, when no infusion to maintain patency documented in this encounter Active and Recently Administered Medications Times are shown in CDT. Scheduled Medication Order 10/21/2023 10/22/2023 10/23/2023 ketorolac injection 15 mg (ToradoL) (COMPLETED) 15 mg, intravenous, Once, On Mon10/23/23 at 1935, For 1 dose, Adult IV push rate: Over 15 seconds. Peds IV push rate: Over 1 minute. Doses > 15 mg IV/IM are discouraged due to lack of additional analgesic benefit. 1944 (Given - Provid er: Shelton Moore R.N.) NaCl 0.9 % bolus 1,000 mL (COMPLETED) 1,000 mL, intravenous, at 2,000 mL/hr, Administer over 30 Minutes, Once, On Mon10/23/23 at 1935, For 1 dose 1942 (New Bag - Prov ider: Shelton Moore R.N.)2047 (Stopped - Provider: Anselmo Armenta R.N.) prochlorperazine injection 10 mg (Compazine) (COMPLETED) 10 mg, intravenous, Once, On Mon10/23/23 at 1935, For 1 dose 1944 (Given - Provid er: Shelton Moore R.N.) sodium chloride 0.9 % injection 3 mL 3 mL, intravenous, Every 12 hours scheduled, First dose on Mon10/23/23 at 2100, Peripheral Intravenous Catheter and Rapid Infusion Catheter, when no infusion to maintain patency 2099 (Due) PRN Medication Order 10/21/2023 10/22/2023 10/23/2023 sodium chloride 0.9 % injection 10 mL 10 mL, intravenous, As needed, line care, Starting on Mon10/23/23 at 1933, Peripheral Intravenous Catheter and Rapid Infusion Catheter, prior to blood sampling, post blood transfusion or post blood sampling sodium chloride 0.9 % injection 3 mL 3 mL, intravenous, As needed, line care, Starting on Mon10/23/23 at 1933, Prior to and following infusion and between multiple consecutive infusions: sodium chloride 0.9 % injection documented in this encounter Additional Health Concerns Assessment Noted Time PHQ-9 Depression Total Score: 17 07/13/ 021 3:09 PM CDT documented as of this encounter Care Teams Thermometer Maker Relationship Specialty Start Date End Date Elsewhere, Pcp PCP - General Internal Medicine 08/31/21 documented as of this encounter
--- OUTSIDE RECORDS SUMMARY | 2024-02-01 14:27 | XMS_ITS | Encounter Summary ---
Author Organization [facility] Address [address] [place] [address] Care Team Providers Care Sand Cutter Name Role Phone Elsewhere, Pcp Primary Care Provider Unavailabl e Encounter Details Date Type Department Care Team (Late st Contact Info) Description 12/29/2023 Clinical Communication [facility] Mail [phone] [place] [phone] Karel Bowers, Pharm.D. [address] [place] [phone] Social History Tobacco Use Types Packs/Day Years [...] 11/09/2020 How often do you attend chur or scientologist services? More than 4 times per year 11/09/2020 Do you belong to any clubs o r organizations such as alevism groups, unions, fraternal [...] Answer Date Recorded PHQ-2 Score 4 07/13/2020 [facility] Occupat ional Health - Occupational [...] or slept in a detention (including now)? 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
[2024-02-01 22:19] LABS: Strep A DNA Probe* NOT DETECTED (Not Detectd)
[2024-02-01 22:31] LABS: PCR FLU A Negative PCR FLU A (Negative); PCR FLU B Negative PCR FLU B (Negative); PCR RSV Negative PCR RSV (Negative); SARS PCR* Negative SARS-CoV-2 (Negative)
== END 2024-02-01 14:25 | disposition home or self-care (01) ==
PROVIDERS: PCP Nurse Practitioner Family; Visit Provider Nurse Practitioner Family
DX: J02.9 Acute pharyngitis, unspecified (principal); J06.9 Acute upper respiratory infection, unspecified
CPT/HCPCS: 87631; 87651

== ENCOUNTER 2024-04-23 14:16 | Outpatient (CLI) | payer OTHER, SELFPAY ==
[2024-04-23 22:39] LABS: PCR FLU A Negative PCR FLU A (Negative); PCR FLU B Negative PCR FLU B (Negative); PCR RSV POSITIVE PCR RSV (Negative); SARS PCR* Negative SARS-CoV-2 (Negative)
== END 2024-04-23 14:17 | disposition home or self-care (01) ==
LOC: KYNREF 14:16
PROVIDERS: PCP Nurse Practitioner Family; Visit Provider Nurse Practitioner Family
DX: J11.1 Influenza due to unidentified influenza virus with other respiratory manifestations (principal); R50.9 Fever, unspecified
CPT/HCPCS: 87631

== ENCOUNTER 2024-05-29 13:21 | Outpatient (CLI) | payer OTHER, SELFPAY | END 2024-05-29 13:22 | disposition home or self-care (01) | LOC: NFLDREF 06-01 01:53 | PROVIDERS: PCP Nurse Practitioner Family; Referring Provider Nurse Practitioner Family; Visit Provider Nurse Practitioner Family | DX: N30.00 Acute cystitis without hematuria (principal) | CPT/HCPCS: 87086 ==

== ENCOUNTER 2024-06-02 08:00 | Emergency (ER) | payer OTHER, SELFPAY ==
--- OUTSIDE RECORDS SUMMARY | 2024-06-02 08:02 | XMS_ITS | Encounter Summary ---
Author Organization [facility] Address [address] [place] [id number] Care Team Providers Care Claim Approver Name Role Phone Elsewhere, Pcp Primary Care Provider Unavailabl e Reason for Visit * Reason Comments Urinary Tract Infection 44 y/o F present ing to ED via private vehicle for evaluation of UTI. States she was diagnosed in ED with UTI 05/28 and d/c'd with ABx. States she has had increased stools causing increased irritation and pain at hemorrhoids. States she is feeling dehydrated, but skin turgor is good and mucous membranes are moist. Started Bactrim BID yesterday, pt states she believes the course is either 5 or 7 days but she is taking as prescribed. Hemorrhoids Encounter Details Date Type Department Care Team (Late st Contact Info) Description 05/30/2024 11:19 PM METAL ROOM DENTAL TECHNICIAN - 05/31/2024 12:09 AM [facility] Emergency [place] [facility] [address] [place] [phone] Vaughn Lynch, LO, C.N.P., D.N.P. [address] [place] [address] Hemorrhoids (Primary Dx) Discharge Disposition: Home or Self Care Social History Tobacco Use Types Packs/Day Years Used Date Smoking Tobacco: Every Day Cigarettes 0.5 17.1 Started: 2007 Smokeless Tobacco: Never Comments:1/2 or [...] week 11/09/2020 How often do you attend [facility] or congregational services? More than 4 times per year 11/09/2020 Do you belong to any clubs o r organizations such as restorationism groups, unions, fraternal [...] Answer Date Recorded PHQ-2 Score 4 07/13/2020 [facility] - Occupational Stress [...] or slept in a intermediate (including now)? No 11/09/2020 Depression Answer Date [...] on file Legal Sex Female 9:27 AM METAL ROOM DENTAL TECHNICIAN Gender Identity Female 11/17/2019 7:18 AM CDT Sexual Orientation Straight 11/17/2019 7: 18 AM CDT documented as of this encounter Last Filed Vital Signs Vital Sign Reading Time Taken Comments Blood Pressure 96/46 05/31/2024 12:01 AM METAL ROOM DENTAL TECHNICIAN Pulse 89 05/31/2024 12:01 AM METAL ROOM DENTAL TECHNICIAN Temperature 36.3 C (97.3 F) 05/30/2024 11:20 PM METAL ROOM DENTAL TECHNICIAN Respiratory Rate 18 05/31/2024 12:01 AM METAL ROOM DENTAL TECHNICIAN Oxygen Saturation 96% 05/31/2024 12:01 AM METAL ROOM DENTAL TECHNICIAN Inhaled Oxygen Concentration - - Weight 76.6 kg (168 lb 14 oz) 05/30/2024 11:29 P M METAL ROOM DENTAL TECHNICIAN Height - - Body Mass Index 30.89 12/06/2020 4:44 PM CDT documented in this encounter Discharge Instructions * Discharge Instructions* Vaughn Lynch APRN, C.N.P., D.N.P. - 05/30/2024 11:59 PM METAL ROOM DENTAL TECHNICIAN To use it is baths 3 times a day. Use the suppository twice a day, this is a steroids which will help shrink you are hemorrhoids. Follow-up with the surgeon as scheduled. You can also use preparationH every 6 hours which will also help decrease the inflammation. Were limited to the amount of pain medications we can prescribe, however I did prescribe some Percocet for severe pain. L ROOM DENTAL TECHNICIAN documented in this encounter Medications at Time of Discharge acetaminophen (TYLENOL) 500 mg tablet Take 2 tablets (1,000 mg total) by mouth every 6 (six) hours as needed for Pain. 100 tablet 06/24/2022 2:00 PM METAL ROOM DENTAL TECHNICIAN 3 albuterol 90 mcg/actuation inhaler Inhale 2 puffs every 4 to 6 hours as needed for wheezing or shortness of breath. 18 g 1 02/02/2024 10:10 AM CDT 4 azelastine (ASTELIN) 137 mcg/spray (0.1 %) nasal spray Administer 1-2 sprays into each nostril 2 (two) times a day. Use in each nostril as directed 90 mL 1 04/21/2022 10:49 AM METAL ROOM DENTAL TECHNICIAN 2 azelastine (ASTELIN) 137 mcg/spray (0.1 %) nasal spray Administer 1-2 sprays into each nostril 2 (two) times a day. 30 mL 1 07/25/2023 3:58 PM CDT 4 benzonatate (Tessalon Perles) 100 mg capsule Take 1 capsule (100 mg total) by mouth 3 (three) times a day as needed for cough. 20 capsule 04/19/2024 3:28 PM METAL ROOM DENTAL TECHNICIAN 5 buPROPion (Wellbutrin SR) 150 mg 12 hr tablet Take 1 tablet (150 mg total) by mouth daily for 3 days, THEN 1 tablet (150 mg total) 2 (two) times a day. Start 1 to 2 weeks prior to quit date. 180 tablet 3 04/23/2024 4:19 PM METAL ROOM DENTAL TECHNICIAN 5 10/24/19 25 cetirizine (ZyrTEC) 10 mg tablet Take 1 tablet (10 mg total) by mouth daily as needed. 90 tablet 3 05/31/2024 3:56 PM METAL ROOM DENTAL TECHNICIAN 4 cholecalciferol, vitamin D3, (cholecalciferol) 25 mcg (1,000 Unit) tablet Take 50 mcg by mouth daily with breakfast. 3 diclofenac sodium (Voltaren) 1 % gel Apply 2 g topically to left foot four times daily for 14 days; apply to single left foot 100 g 12/15/2023 1:17 PM CDT 4 docusate sodium (COLACE) 100 mg capsule 2 doxepin (SILENOR) 3 mg tablet Take 1 tablet (3 mg total) by mouth at bedtime as needed. 90 tablet 3 4 doxepin (SINEquan) 10 mg/mL concentrated solution Take 0.3 mL (3 mg total) by mouth at bedtime as needed for insomnia 120 mL 1 07/04/2023 4:53 PM CDT 4 doxycycline monohydrate (Monodox) 100 mg capsule Take 1 capsule (100 mg total) by mouth 2 (two) times a day. 20 capsule 04/23/2024 4:19 PM METAL ROOM DENTAL TECHNICIAN 5 fluticasone propionate (Flonase) 50 mcg/actuation nasal spray Administer 1-2 sprays into each nostril daily. 48 g 3 02/20/2024 3:44 PM METAL ROOM DENTAL TECHNICIAN 4 guaiFENesin (MUCINEX) 600 mg 12 hr tablet 600 mg orally every 12 hours for 30 days 60 tablet 1 2 hydrocortisone (Anusol-HC) 25 mg suppository Insert 1 suppository (25 mg total) into the rectum 2 (two) times a day. 10 suppository 5 hydrOXYzine (VistariL) 25 mg capsule Take 1 capsule (25 mg total) by mouth 3 (three) times a day as needed for nausea. 90 capsule 11 10/11/2023 3:54 PM CDT 4 ibuprofen (MOTRIN) 600 mg tablet Take 1 tablet (600 mg total) by mouth every 6 (six) hours as needed for Pain 60 tablet 06/24/2022 2:00 PM METAL ROOM DENTAL TECHNICIAN 3 ketorolac (TORADOL) 10 mg tablet Take 1 tablet (10 mg total) by mouth every 4 to 6 hours as needed for pain for 5 days. Do not exceed 4 tablets per day 14 tablet 6 01/10/2023 2:28 PM CDT 2 lidocaine 3 % cream 1 application topically twice a day As Needed for pain 28.35 g 5 magnesium oxide (Mag-Ox) 400 mg (241.3 mg magnesium) tablet Take 1 tablet (400 mg total) by mouth daily. 120 tablet 2 03/29/2024 4:39 PM METAL ROOM DENTAL TECHNICIAN 4 nicotine (Nicoderm CQ) 14 mg/[address] 1 patch on the skin daily for 14 days. 14 patch 5 nicotine (Nicoderm CQ) 21 mg/[address] 1 patch on the skin daily for 28 days 28 patch 05/22/2024 1:38 PM METAL ROOM DENTAL TECHNICIAN 5 nicotine (Nicoderm CQ) 7 mg/[address] 1 patch on the skin daily for 14 days. 14 patch 5 nicotine (Nicotrol NS) 10 mg/mL nasal spray [...] for 30 days 168 each 6 3 nitrofurantoin monohydrate (Macrobid) 100 mg capsuleIndications: Acute Cystitis Without Hematuria Take 1 capsule (100 mg total) by mouth 2 (two) times a day. 10 capsule 5 ondansetron ODT (ZOFRAN-ODT) 4 mg disintegrating tablet Dissolve 1 tablet (4 mg total) in the mouth every 12 (twelve) hours. 10 tablet 3 ondansetron ODT (Zofran-ODT) 4 mg disintegrating tablet Dissolve 1 tablet (4 mg total) in the mouth every 6 to 8 hours as needed for nausea/vomiting. 15 tablet 6 2024 2:56 PM METAL ROOM DENTAL TECHNICIAN 4 ondansetron ODT (Zofran-ODT) 4 mg disintegrating tablet Dissolve 1 tablet (4 mg total) in the mouth every 6 to 8 hours as needed for nausea or vomiting. 30 tablet 6 05/15/2024 3:37 PM METAL ROOM DENTAL TECHNICIAN 4 ondansetron ODT (Zofran-ODT) 8 mg disintegrating tablet Dissolve one-half tablet (4 mg total) in the mouth 2 (two) times a day as needed for nausea or vomiting. 15 tablet 6 05/01/2024 3:27 PM METAL ROOM DENTAL TECHNICIAN 4 oxyCODONE (ROXICODONE) 5 mg immediate release tablet Take 1 tablet (5 mg total) by mouth every 4 (four) hours as needed. 20 tablet 01/31/2023 2:23 PM CDT 3 penicillin V potassium (VEETIDS) 500 mg tablet Take 1 tablet (500 mg total) by mouth 4 (four) times a day until gone 40 tablet 12/26/2022 5:20 PM CDT 3 phenazopyridine (Pyridium) 200 mg tabletIndications:A cute Cystitis Without Hematuria Take 1 tablet (200 mg total) by mouth 3 (three) times a day as needed for painful urination. 9 tablet 05/27/2024 9:42 AM METAL ROOM DENTAL TECHNICIAN 5 phentermine 15 mg capsule Take 1 capsule (15 mg) orally every day for 90 days; must administer 2 hours after breakfast 90 capsule 07/28/2022 4:30 PM CDT 3 phentermine 15 mg capsule Take 1 capsule (15 mg total) by mouth daily. Take at least 2 hours after breakfast. 90 capsule 1 11/20/2023 9:55 AM CDT 4 phentermine-topiram ate (Qsymia) 15-92 mg capsule, ER [...] by mouth daily. 90 capsule 3 phenylephrine-pramo pjuj-dvzstiqn-lavqa petrolatum (Preparation H Maximum Strength) 0.25-1 % cream 1 applic rectally 2 to 4 times per day As Needed for hemorrhoids for 30 days 51 g 3 3 pseudoephedrine (Sudogest) 30 mg tablet Take 1 tablet (30 mg total) by mouth 3 (three) times a day. 24 tablet 12/01/2022 12:37 PM CDT 3 sulfamethoxazole-tr imethoprim (Bactrim DS) 800-160 mg per tablet Take 1 tablet by mouth 2 (two) times a day for 7 days. 14 tablet 2024 2:56 PM METAL ROOM DENTAL TECHNICIAN 5 06/05/19 25 tamsulosin (FLOMAX) 0.4 mg 24 hr capsule Take 1 capsule (0.4 mg) orally daily to prevent bladder spasm 7 capsule 06/27/2022 10:18 AM CDT 3 topiramate (Topamax) 100 mg tablet Take 1 tablet (100 mg total) by mouth daily. Take 100 mg in addition to the 25 mg. 90 tablet 3 04/26/2024 2:25 PM METAL ROOM DENTAL TECHNICIAN 4 topiramate (Topamax) 25 mg tablet Take 1 tablet (25 mg total) by mouth daily with 100 mg tablet for a total daily dose of 125 mg. 90 tablet 3 04/26/2024 2:25 PM METAL ROOM DENTAL TECHNICIAN 4 varenicline (Chantix Continuing Month Box) 1 [...] as discussed. 53 tablet 03/22/2023 12:20 PM METAL ROOM DENTAL TECHNICIAN 3 documented as of this encounter ED Notes * Vaughn Lynch APRN, C.N.P., D.N.P. - 05/31/2024 12:03 AM CST Images from the original note were not included. CHIEF COMPLAINT/REASON FOR VISIT Urinary Tract Infection (44 y/o F presenting to ED via private vehicle for evaluation of UTI. States she was diagnosed in ED with UTI 05/28 and d/c'd with ABx. States she has had increased stools causing increased irritation and pain at hemorrhoids. States she is feeling dehydrated, but skin turgor is good and mucous membranes are moist. Started Bactrim BID yesterday, pt states she believes the course is either 5 or 7 days but she is taking as prescribed. ) and Hemorrhoids HISTORY OF PRESENT ILLNESS 43-year-old female with a history asthma and migraines, presents rectal pain. Patient has had 1 week rectal pain from hemorrhoids that have gotten progressively worse rating the pain 25/10. She states she has had hemorrhoids in the past but not recently. Denies any recent constipation, reports diarrhea 3-4 times in the last 24 hours attributing it to antibiotic use. She has tried Sitz bath, lidocaine jelly, heat, ice with no relief. Denies fever, diaphoresis, changes in appetite, chest pain, shortness of breath, palpitations, nausea, vomiting, dysuria, urinary frequency, urinary retention, arthralgias, myalgias. She is evaluated in his emergency department 2 days ago. Her hemorrhoids were no t thrombosed at that time. Was instructed on Sitz baths. She was trying lidocaine gel. The none this has been helpful. She states she has had a little diarrhea from the antibiotics which I told her to quit as her urine did not grow anything out. She states her urinary symptoms have improved. History provided by: Patient manager post needed/used: no REVIEW OF SYSTEMS Constitutional: Negative for chills, diaphoresis, fatigue and fever. HENT: Negative for sinus pressure and sore throat. Respiratory: Negative for cough, chest tightness and shortness of breath. Cardiovascular: Negative for chest pain. Gastrointestinal: Negative for abdominal pain, constipation, diarrhea, nausea and vomiting. Hemorrhoids Genitourinary: Negative for dysuria, frequency and urgency. Musculoskeletal: Negative for arthralgias and myalgias. Skin: Negative for rash. Neurological: Negative for dizziness, weakness and headaches. Hematological: Negative for adenopathy. Does not bruise/bleed easily. All other systems reviewed and are negative. Allergies Reviewed in medical record Current Medications Reviewed in Medical Record. PAST HISTORY Medical Medical History[1] Problem List[2] Surgical Surgical History[3] Family Reviewed in Medical Record Social History Social History Tobacco Use Smoking status: Every Day Current packs/day: 0.50 Average packs/day: 0.5 packs/day for 17.1 years (8.6 ttl pk-yrs) Types: Cigarettes Start date: 2007 Smokeless tobacco: Never Tobacco comments: 1/2 or less pack/d, trying to quit Substance Use Topics Alcohol use: Not Currently Comment: occasional Social History Substance and Sexual Activity Drug Use Not Currently OBJECTIVE Initial Vital Signs / Weights Initial Vitals Temperature 05/30/24 2320 36.3 ??C Pulse Rate 05/30/24 2320 110 Heart Rate -- Resp Rate 05/30/24 2320 18 Blood Pressure 05/30/240 113/81 SpO2 05/30/24 2320 99 % Pain Score 05/30/24 2328 5 - Moderate pain Wt Readings from Last 3 Encounters: 05/30/24 76.6 kg 05/28/24 75 kg 10/23/23 74 kg PHYSICAL EXAMINATION Constitutional: Nursing note and vitals reviewed. No distress. Appears uncomfortable secondary to pain. HENT: Nose: No nasal discharge. Mouth/Throat: Oropharynx is clear and moist. Mucous membranes are moist. No tonsillar exudate. Eyes: Conjunctivae are normal. Pupils are equal, round, and reactive to light. Neck: Neck supple. Cardiovascular: Normal rate. Pulses are strong and palpable. Capillary refill: takes less than 3 seconds Pulmonary/Chest: Effort normal. No respiratory distress. Genitourinary: Genitourinary Comments: Janneth LUBIN VICE PRESIDENT OF COMMUNICATIONS student did the rectal exam, noticed large hemorrhoids that were not thrombosed at this time. Musculoskeletal: General: Normal range of motion. Cervical back: Normal range of motion and neck supple. Lymphadenopathy: She has no cervical adenopathy. Neurological: Alert and oriented to person, place, and time. Skin: Skin is warm, dry and intact. Psychiatric: She has a normal mood and affect. DIAGNOSTICS Procedures None See separate procedure note. ED COURSE ED Course as of 05/31/247 [facility] May 30, 2024 2350 I performed my initial evaluation of the patient. We discussed Emergency Department course including testing, treatment, and potential disposition based on findings. Fri May 31, 2024 0000 I discussed the plan for discharge with [...] discharged by RN. Final Diagnoses: as of 05/31/247 Hemorrhoids INTERVENTIONS Medications ketorolac injection 15 mg (ToradoL) (15 mg intramuscular Given 05/31/24 0002) MEDICAL DECISION MAKING Assessment and Plan Patient presents to the emergency department with complaints of hemorrhoid pain. Patient was diagnosed with a urinary tract infection a few days ago. She was Macrobid and switch to Bactrim. She has had loose stools with the Bactrim. She states with wiping her hemorrhoids have started to bleed a little bit, and they are quite painful. Patient has had hemorrhoids in the past but not this bad. Exam shows hemorrhoids but they are not thrombosed at this time. Differential diagnosis includes but not limited to thrombosed hemorrhoids, bleeding hemorrhoid, hemorrhoid, or others. Patient was instructed to stop per antibiotics as she did not grow anything out in her urine culture. She was instructed to use the Anusol HC suppositories twice a day starting tomorrow morning. She was given a dose of Toradol IM tonight. She will be sent home with a few Percocet. She was instructed to use stool softener or MiraLax with Percocet as it can be constipating. She has a follow-up appointment scheduled with surgery already. This is coming up in a few days. Patient was instructed to follow-up with primary care for any other problems.. DIFFERENTIAL DIAGNOSES As above. PROBLEMS ADDRESSED THIS VISIT As above. Care is significantly affected by the following Social Determinants of Health: none. I reviewed the following external records: primary care records, prior outpatient labs, prior outpatient radiology tests and inpatient records. The following tests were considered but ultimately not performed: none. Escalation of care, including admission/observation, considered: none. DIAGNOSIS Final diagnoses: [K64.9] Hemorrhoids DISPOSITION Home or Self Care DISCHARGE/TRANSFER VITAL SIGNS Vitals: 05/30/24 2330 BP: Pulse: 104 Resp: Temp: SpO2: 99% ED DISCHARGE MEDS ED Prescriptions Medication Sig Dispense Start Date End Date Auth. Provider hydrocortisone (Anusol-HC) 25 mg suppository Insert 1 suppository (25 mg total) into the rectum 2 (two) times a day. 10 suppository 05/30/2024 -- Vaughn Lynch APRN, C.N.P., D.N.P. Percocet dispensed 6 tablets 1 every 4-6 hours for severe pain. Done through [facility]. FOLLOW UP Follow-up with primary care in a week as needed. Vaughn Lynch DNP, LO, PILE DRIVING SUPERINTENDENT-C, AGACNP-BC, ENP-C Emergency Medicine [1] Past Medical History: Diagnosis Date Asthma (HCC) Migraine Headache [2] Patient Active Problem List Diagnosis Asthma (HCC) Obesity Body Mass Index 30-39.9 Adult Migraine With Aura Not Intractable Without Status Migrainosus Pap Smear Examination Intrauterine Device Status Care And Lactating Preeclampsia Severe (HCC) Shortness Of Breath Discomfort Chest [3] Past Surgical History: Procedure Laterality Date CHOLECYSTECTOMY [...] brostrom repair; Surgeon: Alexsander Marshall M.D.; Location: [facility] OR TONSILLECTOMY AND ADENOIDECTOMY N/A 04/17/1994 Tonsillectomy with adenoidectomy TOTAL HYSTERECTOMY Vaughn Lynch APRN, C.N.P., D.N.P. 05/31/24 0009 L ROOM DENTAL TECHNICIAN documented in this encounter Plan of Treatment Not on file documented as of this encounter Visit Diagnoses Diagnosis Hemorrhoids- Primary documented in this encounter Administered Medications Inactive Administered Medications - up to 3 most recent administrations Medication Order MAR Action Action Date Dose Rate Site ketorolac injection 15 mg (ToradoL) 15 mg, intramuscular, Once, On Roxie 05/30/24 at 2356, For 1 dose, Adult IV push rate: Over 15 seconds. Peds IV push rate: Over 1 minute. Doses > 15 mg IV/IM are discouraged due to lack of additional analgesic benefit. Given 05/31/2024 12:02 AM METAL ROOM DENTAL TECHNICIAN 15 mg Right Vastus Lateralis documented in this encounter Active and Recently Administered Medications Times are shown in METAL ROOM DENTAL TECHNICIAN. Scheduled Medication Order 2024 05/30/2024 05/31/2024 ketorolac injection 15 mg (ToradoL) (COMPLETED) 15 mg, intramuscular, Once, On Roxie 05/30/24 at 2356, For 1 dose, Adult IV push rate: Over 15 seconds. Peds IV push rate: Over 1 minute. Doses > 15 mg IV/IM are discouraged due to lack of additional analgesic benefit. 0002 (Given - Provid er: Ariana Norton R.N.) documented in this encounter Additional Health Concerns Assessment Noted Time PHQ-9 Depression Total Score: 17 021 3:09 PM CDT documented as of this encounter Care Teams Claim Approver Relationship Specialty Start Date End Date Elsewhere, Pcp PCP - General Internal Medicine 08/31/21 documented as of this encounter
--- OUTSIDE RECORDS SUMMARY | 2024-06-02 08:02 | XMS_ITS | Encounter Summary ---
Author Organization [facility] Address [address] [place] [address] Care Team Providers Care Cementer Machine Name Role Phone Elsewhere, Pcp Primary Care Provider Unavailabl e Reason for Visit * Reason Onset Date Comments Upper Respiratory Infection 04/19/2024 Encounter Details Date Type Department Care Team (Late st Contact Info) Description 04/19/2024 Nurse Triage Department of Family Medicine in [place], [place] [address] [place] [phone] Ethel Salazar, RLashawnNLashawn [address] [place] [phone] Upper Respiratory Infection Social History Tobacco Use Types Packs/Day Years [...] How often do you attend chur or tenriism services? More than 4 times per year 11/09/2020 Do you belong to any clubs o r organizations such as zoroastrianism groups, unions, fraternal [...] or slept in a residential (including now)? 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 - 04/19/2024 7:47 AM HUMAN ANATOMY TEACHER Chief Complaint / Reason for Call Patient is a 43 y.o. female calling regarding Upper Respiratory Infection. Assessment Concern: Cough. Green nasal discharge. Sinus pain and pressure. Present for: About a week Home cares tried: Mucinex. Sudafed Calling to request: Appointment The recommended disposition is Home Care. Patient was warm transferred to, a outsole scheduler, Patient Appointment Business Development Director at the clinic for further assistance. Reason for Disposition Cough Protocols used: Cough - Acute Llfuvszcsx-Hmaud-UF Care Advice Patient/Caregiver understands and will follow care advice?: Yes, able to teach back Cough - Acute Umkyfvfbkr-Fvpjj-QY Nurse Ethel Casiano Apr 19, 2024 07:52 AM Care Advice COUGH MEDICINES: * COUGH DROPS: Ryoj-xvm-vfgubtk cough drops can help a lot, especially for mild coughs. They soothean irritated throat and remove the tickle sensation in the back of the throat. Cough drops are easyto carry with you. * COUGH SYRUP WITH DEXTROMETHORPHAN: An bydh-uzg-wznxvxe cough syrup can help your cough. The most common cough suppressant in nqrb-qdi-hjvfshd cough medicines is dextromethorphan. * HOME REMEDY - HARD CANDY: Hard candy works just as well as uehy-mcy-mrztdkp cough drops. People who have diabetes should use sugar-free candy. * HOME REMEDY - HONEY: This old home remedy has been shown to help decrease coughing at night. The adult dosage is 2 teaspoons (10 ml) at bedtime. COUGH SYRUP WITH DEXTROMETHORPHAN: * Cough syrups containing the cough suppressant dextromethorphan may help decrease your cough. * Cough syrup works best for coughs that keep you awake at night. It can also sometimes help in thelate stages of a lung or airway infection when the cough is dry and hacking. Cough syrup can be used along with cough drops. * Examples: Delsym 12-hour Cough, Robitussin Cough Long-Acting, Triaminic Long- Acting, Vicks DayQuil Cough. HUMIDIFIER: * If the air is dry, use a humidifier in the bedroom. * Dry air makes coughs worse. DRINK PLENTY OF LIQUIDS: * Drink plenty of liquids. * Staying well-hydrated will help loosen phlegm. * The liquids will also help soothe a dry or irritated throat. CALL BACK IF: * Cough lasts over 3 weeks * Continuous coughing lasts over 2 hours after cough treatment * Difficulty breathing occurs * Fever over 103 F (39.4 C) * Fever lasts over 3 days * You become worse NASAL WASHES FOR A STUFFY NOSE: * Introduction: Saline (salt water) nasal irrigation (nasal wash) is an effective and simple home remedy for treating stuffy nose and sinus congestion. The nose can be irrigated by pouring, spraying,or squirting salt water into the nose and then letting it run back out. * How it Helps: The salt water rinses out excess mucus and washes out any irritants (dust, allergens) that might be present. It also moistens the nasal cavity. * Methods: There are several ways to irrigate the nose. You can use a saline nasal spray bottle (available bfhg-kdw-tuhhjnz), a rubber ear syringe, a medical syringe without the needle, or a NETI POT. NASAL WASHES - JCMT-OM-TLOG INSTRUCTIONS: * STEP 1: Lean over a sink. * STEP 2: Gently squirt or spray warm salt water into one of your nostrils. * STEP 3: Some of the water may run into the back of your throat. Spit this out. If you swallow thesalt water it will not hurt you. * STEP 4: Blow your nose to clean out the water and mucus. * STEP 5: Repeat steps 1 through 4 for the other nostril. You can do this a couple times a day if it seems to help you. HOW TO MAKE SALINE (SALT WATER) NASAL WASH: * Put 1 cup (8 oz; 240 ml) of water in a clean container. * Add 3/4 teaspoon of non-iodized salt (such as maria teresa or pickling salt) to the water. * Add 1/4 teaspoon baking soda to the water. Stir well. * Use distilled water or boiled tap water that has cooled. * Throw away any unused saline nasal wash after 24 hours. NASAL DECONGESTANTS FOR A VERY STUFFY NOSE: * MOST PEOPLE DO NOT NEED TO USE THESE MEDICINES. * If your nose feels blocked, you should try using nasal washes first. * If you have a very stuffy nose, nasal decongestant medicines can shrink the swollen nasal mucosa and allow for easier breathing. If you have a very runny nose, these medicines can reduce the amountof drainage. They may be taken as pills by mouth or as a nasal spray. * Pseudoephedrine (Sudafed): Available oser-nhp-sabgslj in pill form. Typical adult dosage is two 30 mg tablets every 6 hours. * Oxymetazoline Nasal Drops (Afrin in [place]; Drixoral in [place]): Available rarb-dgq-qqltdnw. Clean out the nose before using. [place] each nostril once, wait one minute for absorption, and then spray a second time. * Phenylephrine Nasal Drops (Aron-Synephrine): Available bkuu-osc-fqftmsr. Clean out the nose beforeusing. [place] each nostril once, wait one minute for absorption, and then spray a second time. N ANATOMY TEACHER documented in this encounter Plan of Treatment Not on file documented as of this encounter Visit Diagnoses Not on filedocumented in this encounter Additional Health Concerns Assessment Noted Time PHQ-9 Depression Total Score: 17 07/13/ 021 3:09 PM CDT documented as of this encounter Care Teams Cementer Machine Relationship Specialty Start Date End Date Elsewhere, Pcp PCP - General Internal Medicine 08/31/21 documented as of this encounter
--- OUTSIDE RECORDS SUMMARY | 2024-06-02 08:02 | XMS_ITS | Encounter Summary ---
Author Organization [facility] Address [address] [place] [id number] Care Team Providers Care Tab Cutting Machine Operator Name Role Phone Elsewhere, Pcp Primary Care Provider Unavailabl e Reason for Visit * Reason Comments Abdominal Pain Painful Urination Encounter Details Date Type Department Care Team (Late st Contact Info) Description 05/28/2024 2:08 PM RETAIL EVENT ASSISTANT - 05/28/2024 3:19 PM RETAIL EVENT ASSISTANT Emergency [facility] [address] [place] [phone] Harshad Lang, P.A.-C., P.A. [address] [place] [phone] Hemorrhoids (Primary Dx); Acute Cystitis Without Hematuria Discharge Disposition: Home or Self Care Social [...] often do you attend chur ch or protestant services? More than 4 times per year 11/09/2020 Do you belong to any clubs o r organizations such as scientology groups, unions, fraternal [...] Date Recorded PHQ-2 Score 4 07/13/2020 [facility] - Occupational [...] or slept in a halfway (including now)? No 11/09/2020 Depression Answer Date [...] on file Legal Sex Female 9:27 AM RETAIL EVENT ASSISTANT Gender Identity Female 11/17/2019 7:18 AM CDT Sexual Orientation Straight 11/17/2019 7: 18 AM CDT documented as of this encounter Last Filed Vital Signs Vital Sign Reading Time Taken Comments Blood Pressure 122/83 05/28/2024 3:16 PM RETAIL EVENT ASSISTANT Pulse 92 05/28/2024 3:16 PM RETAIL EVENT ASSISTANT Temperature 36.2 C (97.2 F) 05/28/2024 3:16 PM RETAIL EVENT ASSISTANT Respiratory Rate 18 05/28/2024 3:16 PM RETAIL EVENT ASSISTANT Oxygen Saturation 100% 05/28/2024 3:16 PM RETAIL EVENT ASSISTANT Inhaled Oxygen Concentration - - Weight 75 kg (165 lb 5.5 oz) 05/28/2024 2:07 PM RETAIL EVENT ASSISTANT Height - - Body Mass Index 30.24 12/06/2020 4:44 PM CDT documented in this encounter Discharge Instructions * Discharge Instructions* Harshad Lang P.A.-C., P.A. - 05/28/2024 3:07 PM RETAIL EVENT ASSISTANT Use the Sitz bath which is a product that you can buy at the store. Try to push the hemorrhoid backin. Schedule an appointment with colorectal as soon as possible for treatment options. We should call back with the urine culture results. You should notice improvement in the next day or so if you are on the right antibiotic. Come back if worsen. [place] EVENT ASSISTANT * Attachments The following attachments cannot be sent through Care Everywhere. * Hemorrhoids ([place] Sudanese) documented in this encounter Medications at Time of Discharge acetaminophen (TYLENOL) 500 mg tablet Take 2 tablets (1,000 mg total) by mouth every 6 (six) hours as needed for Pain. 100 tablet 06/24/2022 2:00 PM RETAIL EVENT ASSISTANT 3 albuterol 90 mcg/actuation inhaler Inhale 2 puffs every 4 to 6 hours as needed for wheezing or shortness of breath. 18 g 1 02/02/2024 10:10 AM CDT 4 azelastine (ASTELIN) 137 mcg/spray (0.1 %) nasal spray Administer 1-2 sprays into each nostril 2 (two) times a day. Use in each nostril as directed 90 mL 1 04/21/2022 10:49 AM RETAIL EVENT ASSISTANT 2 azelastine (ASTELIN) 137 mcg/spray (0.1 %) nasal spray Administer 1-2 sprays into each nostril 2 (two) times a day. 30 mL 1 07/25/2023 3:58 PM CDT 4 benzonatate (Tessalon Perles) 100 mg capsule Take 1 capsule (100 mg total) by mouth 3 (three) times a day as needed for cough. 20 capsule 04/19/2024 3:28 PM RETAIL EVENT ASSISTANT 5 buPROPion (Wellbutrin SR) 150 mg 12 hr tablet Take 1 tablet (150 mg total) by mouth daily for 3 days, THEN 1 tablet (150 mg total) 2 (two) times a day. Start 1 to 2 weeks prior to quit date. 180 tablet 3 04/23/2024 4:19 PM RETAIL EVENT ASSISTANT 5 10/24/19 25 cetirizine (ZyrTEC) 10 mg tablet Take 1 tablet (10 mg total) by mouth daily as needed. 90 tablet 3 05/31/2024 3:56 PM RETAIL EVENT ASSISTANT 4 cholecalciferol, vitamin D3, (cholecalciferol) 25 mcg [...] a day. 20 capsule 04/23/2024 4:19 PM RETAIL EVENT ASSISTANT 5 fluticasone propionate (Flonase) 50 mcg/actuation nasal spray Administer 1-2 sprays into each nostril daily. 48 g 3 02/20/2024 3:44 PM RETAIL EVENT ASSISTANT 4 guaiFENesin (MUCINEX) 600 mg 12 hr [...] for Pain 60 tablet 06/24/2022 2:00 PM RETAIL EVENT ASSISTANT 3 ketorolac (TORADOL) 10 mg tablet Take [...] daily. 120 tablet 2 03/29/2024 4:39 PM RETAIL EVENT ASSISTANT 4 nicotine (Nicoderm CQ) 14 mg/[address] 1 patch on the skin daily for 14 days. 14 patch 5 nicotine (Nicoderm CQ) 21 mg/[address] 1 patch on the skin daily for 28 days 28 patch 05/22/2024 1:38 PM RETAIL EVENT ASSISTANT 5 nicotine (Nicoderm CQ) 7 mg/24 hr [...] nausea/vomiting. 15 tablet 6 2024 2:56 PM RETAIL EVENT ASSISTANT 4 ondansetron ODT (Zofran-ODT) 4 mg disintegrating tablet Dissolve 1 tablet (4 mg total) in the mouth every 6 to 8 hours as needed for nausea or vomiting. 30 tablet 6 05/15/2024 3:37 PM RETAIL EVENT ASSISTANT 4 ondansetron ODT (Zofran-ODT) 8 mg disintegrating tablet Dissolve one-half tablet (4 mg total) in the mouth 2 (two) times a day as needed for nausea or vomiting. 15 tablet 6 05/01/2024 3:27 PM RETAIL EVENT ASSISTANT 4 oxyCODONE (ROXICODONE) 5 mg immediate release [...] painful urination. 9 tablet 05/27/2024 9:42 AM RETAIL EVENT ASSISTANT 5 phentermine 15 mg capsule Take 1 [...] by mouth daily. 90 capsule 3 phenylephrine-pramo pzew-bixpflzy-bvfhv petrolatum (Preparation H Maximum Strength) 0.25-1 % [...] mg. 90 tablet 3 04/26/2024 2:25 PM RETAIL EVENT ASSISTANT 4 topiramate (Topamax) 25 mg tablet Take 1 tablet (25 mg total) by mouth daily with 100 mg tablet for a total daily dose of 125 mg. 90 tablet 3 04/26/2024 2:25 PM RETAIL EVENT ASSISTANT 4 varenicline (Chantix Continuing Month Box) 1 [...] as discussed. 53 tablet 03/22/2023 12:20 PM RETAIL EVENT ASSISTANT 3 documented as of this encounter ED Notes * Harshad Lang P.A.-Edward., P.A. - 05/28/2024 2:26 PM CST SUBJECTIVE CHIEF COMPLAINT/REASON FOR VISIT Abdominal Pain and Painful Urination HISTORY OF PRESENT ILLNESS Dulce Lei is a 43-year-old female that presents with lower abdominal pain. She states thatshe developed pain and burning with urination about 4 days ago. She also has some suprapubic area discomfort. She has increased urinary frequency. She had a UA collected yesterday and urine cultures pending. She has been taking Macrobid since yesterday without much improvement. She also has had some nausea without vomiting. Her primary complaint is an external hemorrhoid that is painful. She has had a hysterectomy. She denies any other complaints. History provided by: Patient economics consultant needed/used: no REVIEW OF SYSTEMS Constitutional: Negative for appetite change, chills, diaphoresis, fatigue and fever. HENT: Negative for congestion, ear pain, rhinorrhea and sore throat. Respiratory: Negative for cough, chest tightness and shortness of breath. Cardiovascular: Negative for chest pain. Gastrointestinal: Positive for abdominal pain, anal bleeding, constipation, nausea and rectal pain.Negative for blood in stool, diarrhea and vomiting. Genitourinary: Positive for dysuria and frequency. Negative for flank pain, hematuria, vaginal bleeding and vaginal discharge. Musculoskeletal: Negative for back pain. Skin: Negative for rash. OBJECTIVE Initial Vitals [05/28/24 1406] Temperature 36 ??C Pulse Rate 98 Heart Rate Resp Rate 18 Blood Pressure 120/83 SpO2 100 % Pain Score 8 PHYSICAL EXAMINATION Constitutional: Nursing note and vitals reviewed. Vital signs are normal. She is active. She does not appear ill. No distress. HENT: Head: Normocephalic and atraumatic. Eyes: Conjunctivae and lids are normal. Neck: Phonation normal. Cardiovascular: Normal rate. Pulmonary/Chest: Effort normal. No tachypnea. No respiratory distress. Abdominal: Normal appearance. exhibits no distension. There is abdominal tenderness in the right lower quadrant, suprapubic area and left lower quadrant. There is no rebound and no guarding. Rectal exam shows external hemorrhoid and tenderness. 4 external hemorrhoids noted. No thrombosed hemorrhoids visualized. Musculoskeletal: Cervical back: No pain with movement. Neurological: Alert and oriented to person, place, and time. Normal speech. Skin: Skin is warm, dry and normal color. No rash noted. Psychiatric: She has a normal mood and affect. Relaxed. ASSESSMENT/PLAN Assessment and Plan Dulce Lei is a 43-year-old female that presents with lower abdominal pain. She states thatshe developed pain and burning with urination about 4 days ago. She also has some suprapubic area discomfort. She has increased urinary frequency. She had a UA collected yesterday and urine cultures pending. She has been taking Macrobid since yesterday without much improvement. She also has had some nausea without vomiting. Her primary complaint is an external hemorrhoid that is painful. She has had a hysterectomy. She denies any other complaints. On my exam she primarily appears uncomfortable from the hemorrhoid. No evidence of thrombosis on exam. We elected to have her return home and she will attempt to self treat the hemorrhoid and a Sitz bath. I recommended that she call colorectal fortreatment as soon as possible. She was given a dose of oxycodone and Zofran for her symptoms. Bloodwork was all fairly normal besides a mildly elevated CRP. I recommended a Sitz bath at home. She will contact colorectal. I will have her continue the antibiotics until sensitivities I have resulted.She will come back if she worsens.. DIFFERENTIAL DIAGNOSES UTI, pyelonephritis, sepsis, hemorrhoid, thrombosed hemorrhoid. PROBLEMS ADDRESSED THIS VISIT Hemorrhoid and UTI. I reviewed the following external records: primary care records. ED Course as of 05/28/24 1529 e May 28, 2024 1448 Hemoglobin: 12.3 1448 Leukocytes: 7.9 1453 Basic Metabolic Panel(!): Potassium, P 3.9 Sodium, P 135 Chloride, P 104 Bicarbonate, P 24 Anion Gap, P 7 BUN (Blood Urea Nitrogen), P 9 Creatinine 0.82 Estimated GFR (eGFR) >90 Calcium, Total, P 8.0(!) Glucose, P 106 1453 C-Reactive Protein (CRP), P(!): 39.8 Final Diagnoses: as of 05/28/24 1529 Hemorrhoids Acute Cystitis Without Hematuria The following tests were considered but ultimately not performed: None. Escalation of care, including admission/observation, considered: None. Harshad Lang P.A.-C., P.A. 05/28/24 1530 [place] EVENT ASSISTANT * Jack Macedo R.N. - 05/28/2024 2:07 PM CST Pt arrives complaining of suprapubic abdominal pain and painful urination with difficulty. Pt states symptoms began 2 days ago and have become more severe today. Pt was started on antibiotics yesterday for UTI. Pt has been taking ibuprofen and tylenol which she last took at 1100 this morning. Pt also complaining of some nausea. Jack Macedo R.N. 05/28/24 1408 IL EVENT ASSISTANT documented in this encounter Plan of Treatment Not on file documented as of this encounter Procedures Procedure Name Priority Date/Time Associated Diagnosis Comments CBC WITH DIFFERENTIAL, B STAT 05/28/2024 2:33 PM RETAIL EVENT ASSISTANT C-REACTIVE PROTEIN (CRP), S/P STAT 05/28/2024 2:33 PM RETAIL EVENT ASSISTANT BASIC METABOLIC PANEL, S/P STAT 05/28/2024 2:33 PM RETAIL EVENT ASSISTANT documented in this encounter Results * (ABNORMAL) CRP (C-Reactive Protein) (05/28/2024 2:33 PM RETAIL EVENT ASSISTANT) C-Reactive Protein (CRP), P 39.8(H) <5.0 mg/L 05/28/2024 2:53 PM RETAIL EVENT ASSISTANT CNFL Blood (Blood, Venous) 05/28/2024 2:33 PM RETAIL EVENT ASSISTANT 05/28/2024 2:35 PM RETAIL EVENT ASSISTANT Harshad Lang P.A.-C., P.A. LAB BLOOD ADD-ON F inal Result [facility] [address] [place] [address], [facility] CNFL [facility] in [address] [address] * (ABNORMAL) Basic Metabolic Panel (05/28/2024 2:33 PM RETAIL EVENT ASSISTANT) Pathologist [facility] Potassium, P 3.9 3.6 - 5.2 mmol/L 05/28/2024 2:53 PM RETAIL EVENT ASSISTANT CNFL Sodium, P 135 135 - 145 mmol/L 05/28/2024 2:53 PM RETAIL EVENT ASSISTANT CNFL Chloride, P 104 98 - 107 mmol/L 05/28/2024 2:53 PM RETAIL EVENT ASSISTANT CNFL Bicarbonate, P 24 22 - 29 mmol/L 05/28/2024 2:53 PM RETAIL EVENT ASSISTANT CNFL Anion Gap, P 7 7 - 15 05/28/2024 2:53 PM RETAIL EVENT ASSISTANT CNFL BUN (Blood Urea Nitrogen), P 9 6 - 21 mg/dL 05/28/2024 2:53 PM RETAIL EVENT ASSISTANT CNFL Creatinine 0.82 0.59 - 1.04 mg/dL 05/28/2024 2:53 PM RETAIL EVENT ASSISTANT CNFL Estimated GFR (eGFR) >90 >=60 mL/min/BSA 05/28/2024 2:53 PM RETAIL EVENT ASSISTANT CNFL Comment: Estimated GFR calculated using the 2020 CKD_EPI creatinine equation. Calcium, Total, P 8.0(L) 8.6 - 10.0 mg/dL 05/28/2024 2:53 PM RETAIL EVENT ASSISTANT CNFL Glucose, P 106 70 - 140 mg/dL 05/28/2024 2:53 PM RETAIL EVENT ASSISTANT CNFL Blood (Blood, Venous) 05/28/2024 2:33 PM RETAIL EVENT ASSISTANT 05/28/2024 2:35 PM RETAIL EVENT ASSISTANT Harshad Lang P.A.-C., P.A. LAB BLOOD ADD-ON F inal Result [facility] [address] [place] [phone], [facility] CNFL [facility] in [address] [address] * CBC with Differential, Blood (05/28/2024 2:33 PM RETAIL EVENT ASSISTANT) Hemoglobin 12.3 11.6 - 15.0 g/dL 05/28/2024 2:39 PM RETAIL EVENT ASSISTANT CNFL Hematocrit 37.3 35.5 - 44.9 % 05/28/2024 2:39 PM RETAIL EVENT ASSISTANT CNFL Erythrocytes 4.00 3.92 - 5.13 x10(12)/L 05/28/2024 2:39 PM RETAIL EVENT ASSISTANT CNFL MCV 93.3 78.2 - 97.9 fL 05/28/2024 2:39 PM RETAIL EVENT ASSISTANT CNFL RBC Distrib Width 12.4 12.2 - 16.1 % 05/28/2024 2:39 PM RETAIL EVENT ASSISTANT CNFL Platelet Count 245 157 - 371 x10(9)/L 05/28/2024 2:39 PM RETAIL EVENT ASSISTANT CNFL Leukocytes 7.9 3.4 - 9.6 x10(9)/L 05/28/2024 2:39 PM RETAIL EVENT ASSISTANT CNFL Neutrophils 5.99 1.56 - 6.45 x10(9)/L 05/28/2024 2:39 PM RETAIL EVENT ASSISTANT CNFL Lymphocytes 1.10 0.95 - 3.07 x10(9)/L 05/28/2024 2:39 PM RETAIL EVENT ASSISTANT CNFL Monocytes 0.63 0.26 - 0.81 x10(9)/L 05/28/2024 2:39 PM RETAIL EVENT ASSISTANT CNFL Eosinophils 0.13 0.03 - 0.48 x10(9)/L 05/28/2024 2:39 PM RETAIL EVENT ASSISTANT CNFL Basophils <0.04 0.01 - 0.08 x10(9)/L 05/28/2024 2:39 PM RETAIL EVENT ASSISTANT CNFL Blood (Blood, Venous) 05/28/2024 2:33 PM RETAIL EVENT ASSISTANT 05/28/2024 2:35 PM RETAIL EVENT ASSISTANT us Harshad Lang P.A.-C., P.A. LAB BLOOD ADD-ON F inal Result [facility] [address] [place] [address], [facility] CNFL [facility] in [address] [address] documented in this encounter Visit Diagnoses Diagnosis Hemorrhoids- Primary Acute Cystitis Without Hematuria documented in this encounter Administered Medications Inactive Administered Medications - up to 3 most recent administrations Medication Order MAR Action Action Date Dose Rate Site ondansetron ODT disintegrating tablet 4 mg (Zofran-ODT) 4 mg, sublingual, Once, On 05/28/24 at 1425, For 1 dose, When splitting ODT at bedside, handle with gloves and a pill splitter to prevent moisture contact. Given 05/28/2024 2:29 PM RETAIL EVENT ASSISTANT 4 mg oxyCODONE IR tablet 5 mg (Roxicodone) 5 mg, oral, Once, On Tu05/28/24 at 1425, For 1 dose Given 05/28/2024 2:30 PM RETAIL EVENT ASSISTANT 5 mg documented in this encounter Active and Recently Administered Medications Times are shown in RETAIL EVENT ASSISTANT. Scheduled Medication Order 05/26/2024 05/27/2024 05/28/2024 ondansetron ODT disintegrating tablet 4 mg (Zofran-ODT) (COMPLETED) 4 mg, sublingual, Once, On 05/28/24 at 1425, For 1 dose, When splitting ODT at bedside, handle with gloves and a pill splitter to prevent moisture contact. 1429 (Given - Provid er: Jack Macedo R.N.) oxyCODONE IR tablet 5 mg (Roxicodone) (COMPLETED) 5 mg, oral, Once, On 05/28/24 at 1425, For 1 dose 1430 (Given - Provid er: Jack Macedo R.N.) documented in this encounter Additional Health Concerns Assessment Noted Time PHQ-9 Depression Total Score: 17 021 3:09 PM CDT documented as of this encounter Care Teams Tab Cutting Machine Operator Relationship Specialty Start Date End Date Elsewhere, Pcp PCP - General Internal Medicine 08/31/21 documented as of this encounter
--- OUTSIDE RECORDS SUMMARY | 2024-06-02 08:02 | XMS_ITS | Encounter Summary ---
Author Organization [facility] Address [address] [place] [id number] Care Team Providers Care Cylinder Valve Repairer Name Role Phone Elsewhere, Pcp Primary Care Provider Unavailabl e Reason for Visit * Reason Comments Upper Respiratory Infection Encounter Details Date Type Department Care Team (Late st Contact Info) Description 04/19/2024 1:00 PM MELTER HELPER Telemedicine Primary Care on Demand at [facility] [address] [facility] [place] [address] Su Layton M.D. [address] [facility] [place] [address] Infection Upper Respiratory (Primary Dx) Social History Tobacco Use Types [...] How often do you attend chur or christianity services? More than 4 times per year 11/09/2020 Do you belong to any clubs o r organizations such as zoroastrian groups, unions, fraternal [...] Answer Date Recorded PHQ-2 Score 4 07/13/2020 [facility] - Occupational Stress [...] or slept in a assisted (including now)? No 11/09/2020 Depression Answer Date [...] on file Legal Sex Female 9:27 AM MELTER HELPER Gender Identity Female 11/17/2019 7:18 AM CDT Sexual Orientation Straight 11/17/2019 7: 18 AM CDT documented as of this encounter Progress Notes * Su Layton M.D. - 04/19/2024 1:00 PM CST SUBJECTIVE Consult conducted via real-time audio/video technology by Su Layton M.D. working in the Primary Care On Demand location to the patient's home. Chief Complaint Patient presents with Upper Respiratory Infection HISTORY OF PRESENT ILLNESS 43 years-old Female presenting with Cough. Daughter has tested positive for RSV, this is likely same. Asthma hx is remote and denies SOB today, just persistent cough. - Quality: Dry, Persistent - Severity: It wakes me at night - Made worse by: Lying down, Exposure to cold - Trend: It's worsening - Timing: Midday, At nighttime, In the evening, In the morning - Exact starting time: 7 Days ASSOC. SYMPTOMS / EXPOSURE - Runny nose - Quality: Pus-like - Color: Yellow - Headache - Sore throat - Fatigue - Nasal congestion - Tender sinuses - Side: Both sides - Location: Forehead, Cheekbone - Exposure to sick people NOTE FROM PATIENT: - Respiratory - Apr 19, 2024 - History of asthma or regular inhaler usage ?? - Has taken cough suppressants since the symptoms started - No COVID-19 in last 6 months (or knowledge thereof) - No COVID-19 booster shot in the last 6 months - Hasn't been tested for COVID-19 since symptoms started ?? - No at-home influenza test done since symptom onset ?? Sinus - Apr 19, 2024 - Has seasonal allergies - Gets regular sinus infections ?? - Reports similarity to previous sinus infections ?? - Tried remedies like steam, saline or decongestants since symptoms started - No antibiotics used since symptoms started & intake - Apr 19, 2024 - Denies - Not DENIES SYMPTOMS - GENERAL X Fever X Chills X Malaise X Lymph node swelling - NEURO X Dizziness - PULM X Shortness of breath - HEENT X Ear pain X Hoarseness X Sneezing - CARDIAC X Chest pain - MUSCULOSKELETAL X Muscle pain - OTHER X Loss of taste or smell X COVID-19 exposure Past Medical History: Diagnosis Date Asthma (HCC) Migraine Headache Current Outpatient Medications Medication Sig Dispense Refill acetaminophen (TYLENOL) 500 mg tablet Take 2 tablets (1,000 mg total) by mouth every 6 (six) hours as needed for Pain. 100 tablet 0 albuterol 90 mcg/actuation inhaler Inhale 2 puffs every 4 to 6 hours as needed for wheezing or shortness of breath. 18 g 1 azelastine (ASTELIN) 137 mcg/spray (0.1 %) nasal spray Administer 1-2 sprays into each nostril 2 (two) times a day. Use in each nostril as directed 90 mL 1 azelastine (ASTELIN) 137 mcg/spray (0.1 %) nasal spray Administer 1-2 sprays into each nostril 2 (two) times a day. 30 mL 1 benzonatate (Tessalon Perles) 100 mg capsule Take 1 capsule (100 mg total) by mouth 3 (three) timesa day as needed for cough. 20 capsule 0 cetirizine (ZyrTEC) 10 mg tablet Take 1 tablet (10 mg total) by mouth daily as needed. 90 tablet 3 cholecalciferol, vitamin D3, (cholecalciferol) 25 mcg (1,000 Unit) tablet Take 50 mcg by mouth daily with breakfast. diclofenac sodium (Voltaren) 1 % gel Apply 2 g topically to left foot four times daily for 14 days;apply to single left foot 100 g 0 docusate sodium (COLACE) 100 mg capsule doxepin (SILENOR) 3 mg tablet Take 1 tablet (3 mg total) by mouth at bedtime as needed. 90 tablet 3 doxepin (SINEquan) 10 mg/mL concentrated solution Take 0.3 mL (3 mg total) by mouth at bedtime as needed for insomnia 120 mL 1 fluticasone propionate (Flonase) 50 mcg/actuation nasal spray Administer 2 sprays into each nostrildaily for 10 days. 16 g 12 fluticasone propionate (Flonase) 50 mcg/actuation nasal spray Administer 1-2 sprays into each nostril daily. 48 g 3 guaiFENesin (MUCINEX) 600 mg 12 hr tablet 600 mg orally every 12 hours for 30 days 60 tablet 1 hydrOXYzine (VistariL) 25 mg capsule Take 1 capsule (25 mg total) by mouth 3 (three) times a day asneeded for nausea. 90 capsule 11 ibuprofen (ADVIL,MOTRIN) 600 mg tablet TAKE 1 TABLET BY MOUTH EVERY SIX HOURS NEEDED 30 tablet 0 ibuprofen (MOTRIN) 600 mg tablet Take 1 tablet (600 mg total) by mouth every 6 (six) hours as needed for Pain 60 tablet 0 ketorolac (TORADOL) 10 mg tablet Take 1 tablet (10 mg total) by mouth every 4 to 6 hours as needed for pain for 5 days. Do not exceed 4 tablets per day 14 tablet 6 magnesium oxide (Mag-Ox) 400 mg (241.3 mg magnesium) tablet Take 1 tablet (400 mg total) by mouth daily. 120 tablet 2 nicotine (Nicotrol NS) 10 mg/mL nasal spray Administer 1 spray intranasally every 60 minutes As Needed for nicotine cravings; administer into each nostril. DO NOT EXCEED 40 DOSES (80 SPRAYS) PER DAY 40 mL 1 nicotine (Nicotrol) 10 mg inhaler 1 inhaled 4 to 8 times per day As Needed for nicotine cravings for 30 days 168 each 6 ondansetron ODT (ZOFRAN-ODT) 4 mg disintegrating tablet Dissolve 1 tablet (4 mg total) in the mouthevery 12 (twelve) hours. 10 tablet 0 ondansetron ODT (Zofran-ODT) 4 mg disintegrating tablet Dissolve 1 tablet (4 mg total) in the mouthevery 6 to 8 hours as needed for nausea/vomiting. 15 tablet 6 ondansetron ODT (Zofran-ODT) 4 mg disintegrating tablet Dissolve 1 tablet (4 mg total) in the mouthevery 6 to 8 hours as needed for nausea or vomiting. 30 tablet 6 ondansetron ODT (Zofran-ODT) 8 mg disintegrating tablet Dissolve one-half tablet (4 mg total) in the mouth 2 (two) times a day as needed for nausea or vomiting. 15 tablet 6 oxyCODONE (ROXICODONE) 5 mg immediate release tablet Take 1 tablet (5 mg total) by mouth every 4 (four) hours as needed. 20 tablet 0 penicillin V potassium (VEETIDS) 500 mg tablet Take 1 tablet (500 mg total) by mouth 4 (four) timesa day until gone 40 tablet 0 phentermine 15 mg capsule Take 1 capsule (15 mg) orally every day for 90 days; must administer 2 hours after breakfast 90 capsule 0 phentermine 15 mg capsule Take 1 capsule (15 mg total) by mouth daily. Take at least 2 hours after breakfast. 90 capsule 1 phentermine-topiramate (Qsymia) 15-92 mg capsule, ER multiphase 24 hr ext release capsule 1 cap orally every 24 hours for 90 days 90 capsule 3 phentermine-topiramate (Qsymia) 15-92 mg capsule, ER multiphase 24 hr ext release capsule Take 1 capsule by mouth daily. 90 capsule 0 phentermine-topiramate (Qsymia) 15-92 mg capsule, ER multiphase 24 hr ext release capsule Take 1 capsule by mouth daily. 90 capsule 0 gkjsrjeugelly-tkpmsdzlk-rjjvhxjo-white petrolatum (Preparation H Maximum Strength) 0.25-1 % cream 1applic rectally 2 to 4 times per day As Needed for hemorrhoids for 30 days 51 g 3 pseudoephedrine (Sudogest) 30 mg tablet Take 1 tablet (30 mg total) by mouth 3 (three) times a day.24 tablet 0 tamsulosin (FLOMAX) 0.4 mg 24 hr capsule Take 1 capsule (0.4 mg) orally daily to prevent bladder spasm 7 capsule 0 topiramate (Topamax) 100 mg tablet Take 1 tablet (100 mg total) by mouth daily. Take 100 mg in addition to the 25 mg. 90 tablet 3 topiramate (Topamax) 25 mg tablet Take 1 tablet (25 mg total) by mouth daily with 100 mg tablet fora total daily dose of 125 mg. 90 tablet 3 varenicline (Chantix Continuing Month Box) 1 mg tablet Administer after eating and with a full glass of water. Maintenance (day 8 and later): 1 mg twice daily. Set gradual quit date as discussed. 112tablet 0 varenicline (Chantix Starting Month Box) 0.5 mg (11)- 1 mg (42) tablet Administer after eating and with a full glass of water. Initial: Days 1 to 3: 0.5 mg once daily. Days 4 to 7: 0.5 mg twice daily. Maintenance (day 8 and later): 1 mg twice daily. Set gradual quit date as discussed. 53 tablet 0 No current facility-administered medications for this visit. REVIEW OF SYSTEMS All systems reviewed with pertinent positives/negatives documented above in HPI; all other review of systems negative. OBJECTIVE Physical Exam General: AAO x 3. Appears fatigued but well-developed and well-nourished. Pulmonary: Effort appears normal. Does not appear to be in acute respiratory distress. Speaking in complete sentences. Frequent cough, non productive Skin: Appears to be intact and dry with no rash, erythema or lesions. Psychiatric: Normal mood and affect. Behavior is normal. Judgement and thought content are normal. ASSESSMENT / PLAN #1 Infection Upper Respiratory Other orders - benzonatate (Tessalon Perles) 100 mg capsule; Take 1 capsule (100 mg total) by mouth 3 (three) times a day as needed for cough., Starting 04/19/2024, Normal - suggested adding Tylenol and Cepacol to self care regimen as well. - information sent re: sinus rinses. No ABx for sinus infection indicated today, but she will return if not improving given hx of sinus polyps and prior sinus surgeries. We have discussed supportive care, return precautions, and symptoms that would prompt more urgent evaluation. All questions answered to the patient's satisfaction. Confirmed patient's allergies and discussed the benefits and risks of today's treatment plan, including side effects of medications and/or ordered procedures. The patient was instructed on the follow up plan, return symptoms were reviewed, how to contact for questions was discussed, and the patient was advised of the limitations of video and the possible need for in person visit with worsening symptoms. Patient verbalized understanding and agrees with the plan. Denies any additional questions at this time. Health Maintenance Topic Date Due Office Visit for Blood Pressure Check / Re-check Never done Mammogram Never done HPV Vaccines (2 - 3-dose series) 04/14/2009 Pneumococcal vaccine (0-49 years) (2 of 2 - PCV) 08/27/2011 Asthma Management/Exacerbation Questionnaire (AMQ/AEQ) Never done Asthma Control Test Questionnaire Never done Asthma Action Plan Never done COVID-19 Vaccine (2023- season) 2023 Depression Screening (Annual PHQ-2) Never done Cervical/Vaginal Cancer Screening 11/19/2024 Lipid (Cholesterol) Screening 07/08/2025 DTaP,Tdap,and Td Vaccines (5 - Td or Tdap) 04/19/2031 Hepatitis B Vaccines Completed Influenza Vaccine Completed HIV Screening Completed Hepatitis C Screening Completed IPV Vaccines Aged Out ER HELPER documented in this encounter Plan of Treatment Not on file documented as of this encounter Visit Diagnoses Diagnosis Infection Upper Respiratory- Primary documented in this encounter Additional Health Concerns Assessment Noted Time PHQ-9 Depression Total Score: 17 021 3:09 PM CDT documented as of this encounter Care Teams Cylinder Valve Repairer Relationship Specialty Start Date End Date Elsewhere, Pcp PCP - General Internal Medicine 08/31/21 documented as of this encounter
[2024-06-02 08:03] VITALS: BP 115/75; PULSE 95; RESP 18; TEMP 36.7; O2SAT 96; BMI 29.8
--- OUTSIDE RECORDS SUMMARY | 2024-06-02 08:03 | XMS_ITS | Encounter Summary ---
Author Organization [facility] Address [address] [place] [id number] Care Team Providers Care Cartoonist Special Effects Name Role Phone Elsewhere, Pcp Primary Care Provider Unavailabl e Encounter Details Date Type Department Care Team (Late st Contact Info) Description 05/27/2024 Orders Only Department of Family Medicine, [facility], in [address] [phone] Fam Jackson M.D. [address] [place] [phone] Acute Cystitis Without Hematuria (Primary Dx) Social History Tobacco Use Types [...] How often do you attend chur or voodoo services? More than 4 times per year 11/09/2020 Do you belong to any clubs o r organizations such as jain groups, unions, fraternal [...] Answer Date Recorded PHQ-2 Score 4 07/13/2020 [facility] - Occupational Stress Questionnaire Answer [...] or slept in a custodial (including now)? 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
--- OUTSIDE RECORDS SUMMARY | 2024-06-02 08:03 | XMS_ITS | Encounter Summary ---
Author Organization [facility] Address [address] [place] [id number] Care Team Providers Care Marketing Manager Name Role Phone Elsewhere, Pcp Primary Care Provider Unavailabl e Encounter Details Date Type Department Care Team (Late st Contact Info) Description 05/28/2024 Results Follow-Up Primary Care on Demand at [facility] [address] [facility] [address] [address] Su Layton M.D. [address] [facility] [place] [address] Urinalysis, with Microscopic: Urine, Midstream, Bacterial Culture, Aerobic + Susceptibility, Urine Social History Tobacco Use Types Packs/Day Years [...] How often do you attend chur or gnosticist services? More than 4 times per year 11/09/2020 Do you belong to any clubs o r organizations such as faith groups, unions, fraternal [...] Answer Date Recorded PHQ-2 Score 4 07/13/2020 [facility] Questionnaire Answer Date [...] slept in a long term (including now)? No 11/09/2020 Depression Answer Date [...] on file Legal Sex Female 9:27 AM DIRECTOR TECHNICAL Gender Identity Female 11/17/2019 7:18 AM CDT Sexual Orientation Straight 11/17/2019 7: 18 AM CDT documented as of this encounter Plan of Treatment Not on file documented as of this encounter Visit Diagnoses Not on filedocumented in this encounter Additional Health Concerns Assessment Noted Time PHQ-9 Depression Total Score: 17 021 3:09 PM CDT documented as of this encounter Care Teams Marketing Manager Relationship Specialty Start Date End Date Elsewhere, Pcp PCP - General Internal Medicine 08/31/21 documented as of this encounter
--- OUTSIDE RECORDS SUMMARY | 2024-06-02 08:03 | XMS_ITS | Clinical Summary ---
Author Organization [facility] Address [address] [place] [id number] Care Team Providers Care Coordinator Mining Products Name Role Phone Elsewhere, Pcp Primary Care Provider Unavailabl e Source Comments Patient records contain information from all sites at [facility]. For routine questions regarding patient records, call [phone] during business hours, M-F 8:00 AM - 5:00 PM Central Time. Record requests for emergency care only can be directed to [phone] at any time.[facility] Allergies Active Allergy Reactions Criticality Noted Date [...] directed 90 mL 1 04/21/19 10:49 AM SERVICE COORDINATOR 022 Active ondansetron ODT (ZOFRAN-ODT) 4 mg disintegrating tablet Dissolve 1 tablet (4 mg total) in the mouth every 12 (twelve) hours. 10 tablet 023 Active ibuprofen (MOTRIN) 600 mg tablet Take 1 tablet (600 mg total) by mouth every 6 (six) hours as needed for Pain 60 tablet 06/25/19 2:00 PM SERVICE COORDINATOR 023 Active acetaminophen (TYLENOL) 500 mg tablet Take 2 tablets (1,000 mg total) by mouth every 6 (six) hours as needed for Pain. 100 tablet 06/25/19 2:00 PM SERVICE COORDINATOR 023 Active tamsulosin (FLOMAX) 0.4 mg 24 hr capsule Take 1 capsule (0.4 mg) orally daily to prevent bladder spasm 7 capsule 06/28/19 10:18 AM CDT 023 Active nicotine (Nicotrol) 10 mg inhaler 1 inhaled 4 to 8 times per day As Needed for nicotine cravings for 30 days 168 each 6 023 Active phentermine-topi ramate (Qsymia) 15-92 mg capsule, ER multiphase 24 hr ext release capsule 1 cap orally every 24 hours for 90 days 90 capsule 3 023 Active phentermine-topi ramate (Qsymia) 15-92 mg capsule, ER multiphase 24 hr ext release capsule Take 1 capsule by mouth daily. 90 capsule 023 Active phentermine-topi ramate (Qsymia) 15-92 mg capsule, ER multiphase 24 hr ext release capsule Take 1 capsule by mouth daily. 90 capsule 023 Active phentermine 15 mg capsule Take 1 capsule (15 mg) orally every day for 90 days; must administer 2 hours after breakfast 90 capsule 07/29/19 4:30 PM CDT 023 Active cholecalciferol, vitamin D3, (cholecalciferol ) 25 mcg (1,000 Unit) tablet Take 50 mcg by mouth daily with breakfast. 023 Active phenylephrine-pr amoxine-glycerin -white petrolatum (Preparation H Maximum Strength) 0.25-1 % [...] discussed. 53 tablet 03/22/20 23 12:20 PM SERVICE COORDINATOR 023 Active fluticasone propionate (Flonase) 50 mcg/actuation nasal spray Administer 2 sprays into each nostril daily for 10 days. 16 g 12 02/01/20 24 10:42 AM CDT 023 Active doxepin (SILENOR) 3 mg [...] total) by mouth daily. 120 tablet 2 03/29/20 24 4:39 PM SERVICE COORDINATOR 024 Active hydrOXYzine (VistariL) 25 mg capsule [...] for nausea or vomiting. 15 tablet 6 05/01/19 25 3:27 PM SERVICE COORDINATOR 024 Active topiramate (Topamax) 25 mg tablet Take 1 tablet (25 mg total) by mouth daily with 100 mg tablet for a total daily dose of 125 mg. 90 tablet 3 04/26/19 25 2:25 PM SERVICE COORDINATOR 024 Active topiramate (Topamax) 100 mg tablet Take 1 tablet (100 mg total) by mouth daily. Take 100 mg in addition to the 25 mg. 90 tablet 3 04/26/19 25 2:25 PM SERVICE COORDINATOR 024 Active phentermine 15 mg capsule Take [...] 6 to 8 hours as needed for nausea/vomitin g. 15 tablet 6 05/29/19 25 2:56 PM SERVICE COORDINATOR 024 Active ondansetron ODT (Zofran-ODT) 4 mg disintegrating tablet Dissolve 1 tablet (4 mg total) in the mouth every 6 to 8 hours as needed for nausea or vomiting. 30 tablet 6 05/15/19 25 3:37 PM SERVICE COORDINATOR 024 Active albuterol 90 mcg/actuation inhaler Inhale 2 puffs every 4 to 6 hours as needed for wheezing or shortness of breath. 18 g 1 02/02/20 24 10:10 AM CDT 024 Active cetirizine (ZyrTEC) 10 mg tablet Take 1 tablet (10 mg total) by mouth daily as needed. 90 tablet 3 05/31/19 25 3:56 PM SERVICE COORDINATOR 024 Active fluticasone propionate (Flonase) 50 mcg/actuation nasal spray Administer 1-2 sprays into each nostril daily. 48 g 3 02/20/20 24 3:44 PM SERVICE COORDINATOR 024 Active benzonatate (Tessalon Perles) 100 mg capsule Take 1 capsule (100 mg total) by mouth 3 (three) times a day as needed for cough. 20 capsule 04/19/19 25 3:28 PM SERVICE COORDINATOR 025 Active doxycycline monohydrate (Monodox) 100 mg capsule Take 1 capsule (100 mg total) by mouth 2 (two) times a day. 20 capsule 04/23/19 25 4:19 PM SERVICE COORDINATOR 025 Active buPROPion (Wellbutrin SR) 150 mg 12 hr tablet Take 1 tablet (150 mg total) by mouth daily for 3 days, THEN 1 tablet (150 mg total) 2 (two) times a day. Start 1 to 2 weeks prior to quit date. 180 tablet 3 04/23/19 25 4:19 PM SERVICE COORDINATOR 025 2024 Active nicotine (Nicoderm CQ) 21 mg/[address] 1 patch on the skin daily for 28 days 28 patch 05/22/19 25 1:38 PM SERVICE COORDINATOR 025 Active nicotine (Nicoderm CQ) 14 mg/[address] 1 patch on the skin daily for 14 days. 14 patch 025 Active nicotine (Nicoderm CQ) 7 mg/[address] 1 patch on the skin daily for 14 days. 14 patch 025 Active phenazopyridine (Pyridium) 200 mg tabletIndication s:Acute Cystitis Without Hematuria Take 1 tablet (200 mg total) by mouth 3 (three) times a day as needed for painful urination. 9 tablet 05/27/19 25 9:42 AM SERVICE COORDINATOR 025 Active nitrofurantoin monohydrate (Macrobid) 100 mg capsuleIndicatio ns:Acute Cystitis Without Hematuria Take 1 capsule (100 mg total) by mouth 2 (two) times a day. 10 capsule 025 Active lidocaine 3 % cream 1 application topically twice a day As Needed for pain 28.35 g 025 Active sulfamethoxazole -trimethoprim (Bactrim DS) 800-160 mg per tablet Take 1 tablet by mouth 2 (two) times a day for 7 days. 14 tablet 05/29/19 25 2:56 PM SERVICE COORDINATOR 025 2024 Active hydrocortisone (Anusol-HC) 25 mg suppository Insert 1 suppository (25 mg total) into the rectum 2 (two) times a day. 10 suppository 025 Active hydrocortisone (Hytone) 2.5 % cream Apply topically 2 (two) times a day for hemorrhoids. 30 g 05/31/19 25 3:56 PM SERVICE COORDINATOR 025 Active famotidine (PEPCID) 10 mg tablet TAKE [...] 1 TABLET BY MOUTH DAILY 7 tablet 2 Discontinued metoclopramide (REGLAN) 10 mg tablet TAKE 1 TABLET BY MOUTH THREE TIMES A DAY NEEDED 30 tablet 3 021 2021 Discontinued nystatin (Mycostatin) 100,000 unit/mL suspension Swish and swallow 4 mL (400,000 Units total) 4 (four) times a day for 7 days. 112 mL 04/26/19 25 2:25 PM SERVICE COORDINATOR 025 2024 nicotine 21-14-7 mg/24 hr patch, TD daily, sequential apply 1-21 mg NICOTINE PATCH daily for 28 days; follow with 1-14 mg PATCH daily for 14 days, then 1-7mg PATCH daily for 14 days transdermal 56 patch 025 2024 Discontinued predniSONE (Deltasone) 20 mg tablet Take 2 tablets (40 mg total) by mouth daily for 5 days. 10 tablet 05/22/19 25 1:38 PM SERVICE COORDINATOR 025 2024 Active Problems Problem Noted Date Diagnosed Date [...] (12/05/2019): Added automatically from request for surgery [id number] Encounters Date Type Department Care Team Description 05/30/2024 11:19 PM SERVICE COORDINATOR - 05/31/2024 12:09 AM SERVICE COORDINATOR Emergency [facility] [address] [place] [phone] Vaughn Lynch APRN, C.N.P., D.N.P. Hemorrhoids (Primary Dx) Discharge Disposition: Home or Self Care 05/28/2024 2:08 PM SERVICE COORDINATOR - 05/28/2024 3:19 PM SERVICE COORDINATOR Emergency [facility] [address] [place] [phone] Harshad Lang, Janine.-Edward., P.A. Hemorrhoids (Primary Dx); Acute Cystitis Without Hematuria Discharge Disposition: Home or Self Care 05/28/2024 Clinical Communication [facility] at [address] [phone] Su Layton M.D. 05/28/2024 Results Follow-Up [facility] at [address] [phone] Su Layton M.D. Urinalysis, with Microscopic: Urine, Midstream, Bacterial Culture, Aerobic + Susceptibility, Urine 05/27/2024 9:24 AM SERVICE COORDINATOR - 05/27/2024 11:59 PM SERVICE COORDINATOR Hospital Encounter Department of Laboratory Medicine in [address] [phone] Clarissa Telles M.D. Acute Cystitis Without Hematuria Discharge Disposition: Home or Self Care 05/27/2024 8:15 AM SERVICE COORDINATOR Telemedicine [facility] at [address] [place] [phone] Clarissa Telles M.D. Acute Cystitis Without Hematuria (Primary Dx) 05/27/2024 Orders Only Department of Family Medicine, [facility], in [address] [phone] Fam Jackson M.D. Acute Cystitis Without Hematuria (Primary Dx) 04/19/2024 1:00 PM SERVICE COORDINATOR Telemedicine [facility] at [address] [phone] Su Layton M.D. Infection Upper Respiratory (Primary Dx) 04/19/2024 Nurse Triage Department of Family Medicine in [address] [phone] Ethel Salazar, RLashawnN. Upper Respiratory Infection from Last 3 Months Immunizations Immunization Administration Dates Next Due 4vHPV (discontinued) 03/17/2009 [...] 0.5 17.1 Started: 2007 Smokeless Tobacco: Never Tobacco Cessation:Ready [...] often do you attend chur ch or restoration services? More than 4 times per year 11/09/2020 Do you belong to any clubs o r organizations such as taoist groups, unions, fraternal [...] Answer Date Recorded PHQ-2 Score 4 07/13/2020 [facility] - Occupational Stress Questionnaire Answer Date [...] or slept in a retirement (including now)? No 11/09/2020 Depression Answer Date [...] on file Legal Sex Female 9:27 AM SERVICE COORDINATOR Gender Identity Female 11/17/2019 7:18 AM CDT Sexual Orientation Straight 11/17/2019 7: 18 AM CDT Last Filed Vital Signs Vital Sign Reading Time Taken Comments Blood Pressure 96/46 05/31/2024 12:01 AM SERVICE COORDINATOR Pulse 89 05/31/2024 12:01 AM SERVICE COORDINATOR Temperature 36.3 C (97.3 F) 05/30/2024 11:20 PM SERVICE COORDINATOR Respiratory Rate 18 05/31/2024 12:01 AM SERVICE COORDINATOR Oxygen Saturation 96% 05/31/2024 12:01 AM SERVICE COORDINATOR Inhaled Oxygen Concentration - - Weight 76.6 kg (168 lb 14 oz) 05/30/2024 11:29 P M SERVICE COORDINATOR Height 157.5 cm (5' 2) 12/06/2020 4:44 PM CDT Body Mass Index 30.89 12/06/2020 4:44 PM CDT Plan of Treatment Health Maintenance Due Date Last Done Comments Mammogram 1982 Office Visit for Blood Pressure Check / Re-check 1982 HPV Vaccines (2 - 3-dose series) 04/14/2009 03/17/2009 Pneumococcal vaccine (0-49 years) (2 of 2 - PCV) 08/27/2011 08/26/2010 Asthma Action Plan 12/06/2019 Asthma Control Test Questionnaire 12/06/2019 Asthma Management/Exacerbation Questionnaire (AMQ/AEQ) 12/06/2019 COVID-19 Vaccine ( season) 2023 05/03/2021, 12/16/2020 Depression Screening (Annual PHQ-2) 04/17/2024 Lipid (Cholesterol) Screening 07/08/2025 07/08/2020, 06/13/2013 DTaP,Tdap,and Td Vaccines (5 - Td or Tdap) 04/19/2031 04/19/2021, 12/05/2013, 06/13/2013, Additional history exists Hepatitis B Vaccines Completed 03/25/2014, 05/20/2005, 06/13/2003 HIV Screening Completed 07/08/2020 Hepatitis C Screening Completed 07/08/2020 Cervical/Vaginal Cancer Screening Discontinued 11/19/2021, 07/08/2020, 06/13/2014, Additional history exists Influenza Vaccine Completed 01/23/2024, , 02/17/2022, Additional history exists IPV Vaccines Aged Out No longer eligi ble based on patient's age to complete this topic Procedures Procedure Name Priority Date/Time Associated Diagnosis Comments C-REACTIVE PROTEIN (CRP), S/P STAT 05/28/2024 2:33 PM SERVICE COORDINATOR BASIC METABOLIC PANEL, S/P STAT 05/28/2024 2:33 PM SERVICE COORDINATOR CBC WITH DIFFERENTIAL, B STAT 05/28/2024 2:33 PM SERVICE COORDINATOR URINALYSIS WITH MICROSCOPIC Routine 05/27/2024 9:35 AM SERVICE COORDINATOR Acute Cystitis Without Hematuria BACTERIAL CULTURE, AEROBIC + SUSC, URINE Routine 05/27/2024 9:35 AM SERVICE COORDINATOR Acute Cystitis Without Hematuria THINPREP SCREEN HPV REFLEX Routine 07/08/2020 11:15 [...] Recently Relevant to Health Maintenance Results * CBC with Differential, Blood (05/28/2024 2:33 PM SERVICE COORDINATOR) Hemoglobin 12.3 11.6 - 15.0 g/dL 05/28/2024 2:39 PM SERVICE COORDINATOR CNFL Hematocrit 37.3 35.5 - 44.9 % 05/28/2024 2:39 PM SERVICE COORDINATOR CNFL Erythrocytes 4.00 3.92 - 5.13 x10(12)/L 05/28/2024 2:39 PM SERVICE COORDINATOR CNFL MCV 93.3 78.2 - 97.9 fL 05/28/2024 2:39 PM SERVICE COORDINATOR CNFL RBC Distrib Width 12.4 12.2 - 16.1 % 05/28/2024 2:39 PM SERVICE COORDINATOR CNFL Platelet Count 245 157 - 371 x10(9)/L 05/28/2024 2:39 PM SERVICE COORDINATOR CNFL Leukocytes 7.9 3.4 - 9.6 x10(9)/L 05/28/2024 2:39 PM SERVICE COORDINATOR CNFL Neutrophils 5.99 1.56 - 6.45 x10(9)/L 05/28/2024 2:39 PM SERVICE COORDINATOR CNFL Lymphocytes 1.10 0.95 - 3.07 x10(9)/L 05/28/2024 2:39 PM SERVICE COORDINATOR CNFL Monocytes 0.63 0.26 - 0.81 x10(9)/L 05/28/2024 2:39 PM SERVICE COORDINATOR CNFL Eosinophils 0.13 0.03 - 0.48 x10(9)/L 05/28/2024 2:39 PM SERVICE COORDINATOR CNFL Basophils <0.04 0.01 - 0.08 x10(9)/L 05/28/2024 2:39 PM SERVICE COORDINATOR CNFL Blood (Blood, Venous) 05/28/2024 2:33 PM SERVICE COORDINATOR 05/28/2024 2:35 PM SERVICE COORDINATOR us Harshad Lang P.A.-C., P.A. LAB BLOOD ADD-ON F inal Result [facility] [address] [place] [id number], [facility] in [address] [phone] * (ABNORMAL) CRP (C-Reactive Protein) (05/28/2024 2:33 PM SERVICE COORDINATOR) C-Reactive Protein (CRP), P 39.8(H) <5.0 mg/L 05/28/2024 2:53 PM SERVICE COORDINATOR CNFL Blood (Blood, Venous) 05/28/2024 2:33 PM SERVICE COORDINATOR 05/28/2024 2:35 PM SERVICE COORDINATOR us Harshad Lang P.A.-C., P.A. LAB BLOOD ADD-ON F inal Result [facility] [address] [place] [address], [facility] [[email or web address]] CNFL [facility] [place] [address] * (ABNORMAL) Basic Metabolic Panel (05/28/2024 2:33 PM SERVICE COORDINATOR) Potassium, P 3.9 3.6 - 5.2 mmol/L 05/28/2024 2:53 PM SERVICE COORDINATOR CNFL Sodium, P 135 135 - 145 mmol/L 05/28/2024 2:53 PM SERVICE COORDINATOR CNFL Chloride, P 104 98 - 107 mmol/L 05/28/2024 2:53 PM SERVICE COORDINATOR CNFL Bicarbonate, P 24 22 - 29 mmol/L 05/28/2024 2:53 PM SERVICE COORDINATOR CNFL Anion Gap, P 7 7 - 15 05/28/2024 2:53 PM SERVICE COORDINATOR CNFL BUN (Blood Urea Nitrogen), P 9 6 - 21 mg/dL 05/28/2024 2:53 PM SERVICE COORDINATOR CNFL Creatinine 0.82 0.59 - 1.04 mg/dL 05/28/2024 2:53 PM SERVICE COORDINATOR CNFL Estimated GFR (eGFR) >90 >=60 mL/min/BSA 05/28/2024 2:53 PM SERVICE COORDINATOR CNFL Comment: Estimated GFR calculated using the 2020 CKD_EPI creatinine equation. Calcium, Total, P 8.0(L) 8.6 - 10.0 mg/dL 05/28/2024 2:53 PM SERVICE COORDINATOR CNFL Glucose, P 106 70 - 140 mg/dL 05/28/2024 2:53 PM SERVICE COORDINATOR CNFL Blood (Blood, Venous) 05/28/2024 2:33 PM SERVICE COORDINATOR 05/28/2024 2:35 PM SERVICE COORDINATOR us Harshad Lang P.A.-C., P.A. LAB BLOOD ADD-ON F inal Result [facility] [address] [place] [address], [facility] [[email or web address]] CN[facility] in [address] [address] * (ABNORMAL) Bacterial Culture, Aerobic + Susceptibility, Urine (05/27/2024 9:35 AM SERVICE COORDINATOR) Urine Culture Urogenital microbiota, susceptibilities not performed per laboratory criteria. (A) 2024 8:07 AM SERVICE COORDINATOR ECLR Urine (Urine, Midstream) 05/27/2024 9:35 AM SERVICE COORDINATOR 05/27/2024 2:34 PM SERVICE COORDINATOR Comment:Specimen Source Site : Urine us Clarissa Telles M.D. LAB MICROBIOLOGY - GENERAL ORD ERABLES Final Result Performing Organization Address City/[facility]/ZIP Co de Phone Number [facility] [address] [place] [address], [facility] [[email or web address]] ECLR [facility] [place] [address] * (ABNORMAL) Urinalysis, with Microscopic: Urine, Midstream (05/27/2024 9:35 AM SERVICE COORDINATOR) Source Urine, Urine, Midstream 05/27/2024 9:35 AM SERVICE COORDINATOR CNFL Clarity Clear Clear 05/27/2024 9:39 AM SERVICE COORDINATOR CNFL Color Yellow 05/27/2024 9:39 AM SERVICE COORDINATOR CNFL Comment: ----REFERENCE VALUE---- Colorless Yellow Aubrie Blood Negative Negative 05/27/2024 9:39 AM SERVICE COORDINATOR CNFL Nitrite Negative Negative 05/27/2024 9:39 AM SERVICE COORDINATOR CNFL Leukocyte Esterase Trace(A) Negative 05/27/2024 9:39 AM SERVICE COORDINATOR CNFL Protein Negative mg/dL 05/27/2024 9:39 AM SERVICE COORDINATOR CNFL Comment: ----REFERENCE VALUE---- Negative Trace Glucose Negative Negative mg/dL 05/27/2024 9:39 AM SERVICE COORDINATOR CNFL Ketones, QI(U) Negative Negative mg/dL 05/27/2024 9:39 AM SERVICE COORDINATOR CNFL Bilirubin Negative Negative 05/27/2024 9:39 AM SERVICE COORDINATOR CNFL pH 5.5 5.0 - 8.0 05/27/2024 9:39 AM SERVICE COORDINATOR CNFL Specific [place] >=1.030 1.001 - 1.035 05/27/2024 9:39 AM SERVICE COORDINATOR CNFL Urobilinogen 0.2 0.2 - 1.0 mg/dL 05/27/2024 9:39 AM SERVICE COORDINATOR CNFL White Blood Cells 11-20(A) /hpf 05/27/2024 9:52 AM SERVICE COORDINATOR CNFL Comment: ----REFERENCE VALUE---- Males: 0-3 Females: 0-10 Unknown: 0-10 Red Blood Cells 3-10(A) 0 - 2 /hpf 9:52 AM SERVICE COORDINATOR CNFL Dysmorphic Red Blood Cells <=25 <=25 % 05/27/2024 9:52 AM SERVICE COORDINATOR CNFL Mucus Present /hpf 05/27/2024 9:52 AM SERVICE COORDINATOR CNFL Squamous Cells Occ-3 /hpf 05/27/2024 9:52 AM SERVICE COORDINATOR CNFL Bacteria Present(A) None Seen 05/27/2024 9:52 AM SERVICE COORDINATOR CNFL Urine (Urine, Midstream) 05/27/2024 9:35 AM SERVICE COORDINATOR 05/27/2024 9:35 AM SERVICE COORDINATOR us Clarissa Telles M.D. LAB URINE ORDERABLES Final Res ult [facility] [address] [place] [id number], [facility] [[email or web address]] CN[facility] in [address] [address] * ThinPrep Screen HPV Reflex (07/08/2020 11:15 [...] 11:46 AM CDT ECLR Interpretation Cervical/Endocervi beatrice (ThinPrep): Satisfactory for Evaluation Negative for Intraepithelial Lesion or Malignancy 07/13/2020 11:46 AM CDT ECLR Varies (Cervix/Endocerv ix) 07/08/2020 11:15 AM CDT 07/09/2020 7:59 AM CDT us Selena Cordoba M.D. LAB PAP PATHDX ORDERABLES F inal Result [facility] [address] [place] [address], [facility] [[email or web address]] ECLR [facility] [place] [address] * HIV-1/-2 Ag and Ab Screen, Plasma [...] MICROBIOLOGY - BLOOD OR DERABLES Final Result [facility] [address] [place] [address], [facility] [[email or web address]] ECLR [facility] [place] [address] * (ABNORMAL) Lipid Panel (07/08/2020 11:08 AM CDT) [facility] Cholesterol, Total 233(H) mg/dL 2020 11:42 AM [...] M.D. LAB BLOOD ADD-ON Final Resu lt [facility] [address] [place] [address], [facility] [[email or web address]] CN[facility] in [address] [address] * HCV Ab Scrn w/Reflex to HCV PCR, Serum (07/08/2020 11:08 AM CDT) HCV Ab Screen, S Negative Negative 07/10/19 1:09 AM CDT ECLR Comment: Biotin has been identified by the machine bookkeeper as a potential interfering substance. Higher concentrations of biotin may be found in multivitamins, hair/nail supplements, and workout supplements. If the result does not match clinical observations, repeat testing after patient refrains from the use of supplements for at least 12 hours. Blood (Blood, Venous) 07/08/2020 11:08 AM CDT 07/08/2020 9:15 PM CDT Narrative [facility] - 07/09/2020 1:09 AM CDT Specimen Information: Specimen ID: [id number] Specimen Type: Blood Specimen Collection Start Date: 07/08/2020 11:08 AM Specimen Received Date: 07/08/2020 9:15 PM Specimen ID: [id number] Specimen Type: Blood Specimen Collection Start Date: 07/08/2020 11:08 AM Specimen Received Date: 07/08/2020 9:14 PM us Selena Cordoba M.D. LAB MICROBIOLOGY - BLOOD OR DERABLES Final Result [facility] [address] [place] [id number], [place] ECLR [facility] [place] [address] [place] [id number] from Last 3 Months or Most Recently Relevant to Health Maintenance Insurance [facility] [address] [id number] Care Teams Coordinator Mining Products Relationship Specialty Start Date End Date Elsewhere, Pcp PCP - General Internal Medicine 08/31/21
--- OUTSIDE RECORDS SUMMARY | 2024-06-02 08:03 | XMS_ITS | Encounter Summary ---
Author Organization [facility] Address [address] [place] [address] Care Team Providers Care Gaming Cage Worker Name Role Phone Elsewhere, Pcp Primary Care Provider Unavailabl e Encounter Details Date Type Department Care Team (Latest Contact Info) Description 05/27/2024 9:24 AM LEVERMAN - 05/27/2024 11:59 PM LEVERMAN Hospital Encounter Department of Laboratory Medicine in [address] [phone] Clarissa Telles M.D. [address] [place] [phone] Acute Cystitis Without Hematuria Discharge Disposition: Home [...] How often do you attend chur or 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 More than 4 times per year 11/09/2020 Do you belong to any clubs o r organizations such as sikh groups, unions, fraternal [...] Answer Date Recorded PHQ-2 Score 4 07/13/2020 [facility] - Occupational [...] or slept in a fci (including now)? No 11/09/2020 Depression Answer Date [...] on file Legal Sex Female 9:27 AM LEVERMAN Gender Identity Female 11/17/2019 7:18 AM CDT Sexual Orientation Straight 11/17/2019 7: 18 AM CDT documented as of this encounter Medications at Time of Discharge acetaminophen (TYLENOL) 500 mg tablet Take 2 tablets (1,000 mg total) by mouth every 6 (six) hours as needed for Pain. 100 tablet 06/24/2022 2:00 PM LEVERMAN albuterol 90 mcg/actuation inhaler Inhale 2 puffs every 4 to 6 hours as needed for wheezing or shortness of breath. 18 g 1 02/02/2024 10:10 AM CDT 4 azelastine (ASTELIN) 137 mcg/spray (0.1 %) nasal spray Administer 1-2 sprays into each nostril 2 (two) times a day. Use in each nostril as directed 90 mL 1 04/21/2022 10:49 AM LEVERMAN 2 azelastine (ASTELIN) 137 mcg/spray (0.1 %) nasal spray Administer 1-2 sprays into each nostril 2 (two) times a day. 30 mL 1 07/25/2023 3:58 PM CDT 4 benzonatate (Tessalon Perles) 100 mg capsule Take 1 capsule (100 mg total) by mouth 3 (three) times a day as needed for cough. 20 capsule 04/19/2024 3:28 PM LEVERMAN 5 buPROPion (Wellbutrin SR) 150 mg 12 hr tablet Take 1 tablet (150 mg total) by mouth daily for 3 days, THEN 1 tablet (150 mg total) 2 (two) times a day. Start 1 to 2 weeks prior to quit date. 180 tablet 3 04/23/2024 4:19 PM LEVERMAN 5 10/24/19 25 cetirizine (ZyrTEC) 10 mg tablet Take 1 tablet (10 mg total) by mouth daily as needed. 90 tablet 3 05/31/2024 3:56 PM LEVERMAN 4 cholecalciferol, vitamin D3, (cholecalciferol) 25 mcg [...] a day. 20 capsule 04/23/2024 4:19 PM LEVERMAN 5 fluticasone propionate (Flonase) 50 mcg/actuation nasal spray Administer 1-2 sprays into each nostril daily. 48 g 3 02/20/2024 3:44 PM LEVERMAN 4 guaiFENesin (MUCINEX) 600 mg 12 hr [...] for Pain 60 tablet 06/24/2022 2:00 PM LEVERMAN 3 ketorolac (TORADOL) 10 mg tablet Take [...] daily. 120 tablet 2 03/29/2024 4:39 PM LEVERMAN 4 nicotine (Nicoderm CQ) 14 mg/[address] 1 patch on the skin daily for 14 days. 14 patch 5 nicotine (Nicoderm CQ) 21 mg/[address] 1 patch on the skin daily for 28 days 28 patch 05/22/2024 1:38 PM LEVERMAN 5 nicotine (Nicoderm CQ) 7 mg/24 hr [...] nausea/vomiting. 15 tablet 6 2024 2:56 PM LEVERMAN 4 ondansetron ODT (Zofran-ODT) 4 mg disintegrating tablet Dissolve 1 tablet (4 mg total) in the mouth every 6 to 8 hours as needed for nausea or vomiting. 30 tablet 6 05/15/2024 3:37 PM LEVERMAN 4 ondansetron ODT (Zofran-ODT) 8 mg disintegrating tablet Dissolve one-half tablet (4 mg total) in the mouth 2 (two) times a day as needed for nausea or vomiting. 15 tablet 6 05/01/2024 3:27 PM LEVERMAN 4 oxyCODONE (ROXICODONE) 5 mg immediate release [...] painful urination. 9 tablet 05/27/2024 9:42 AM LEVERMAN 5 phentermine 15 mg capsule Take 1 [...] by mouth daily. 90 capsule 3 phenylephrine-pramo ahbw-wtgclwse-xioxb petrolatum (Preparation H Maximum Strength) 0.25-1 % [...] mg. 90 tablet 3 04/26/2024 2:25 PM LEVERMAN 4 topiramate (Topamax) 25 mg tablet Take 1 tablet (25 mg total) by mouth daily with 100 mg tablet for a total daily dose of 125 mg. 90 tablet 3 04/26/2024 2:25 PM LEVERMAN 4 varenicline (Chantix Continuing Month Box) 1 [...] as discussed. 53 tablet 03/22/2023 12:20 PM LEVERMAN 3 documented as of this encounter Plan of Treatment Not on file documented as of this encounter Procedures Procedure Name Priority Date/Time Associated Diagnosis Comments BACTERIAL CULTURE, AEROBIC + SUSC, URINE Routine 05/27/2024 9:35 AM LEVERMAN Acute Cystitis Without Hematuria URINALYSIS WITH MICROSCOPIC Routine 05/27/2024 9:35 AM LEVERMAN Acute Cystitis Without Hematuria documented in this encounter Results * (ABNORMAL) Bacterial Culture, Aerobic + Susceptibility, Urine (05/27/2024 9:35 AM LEVERMAN) Urine Culture Urogenital microbiota, susceptibilities not performed per laboratory criteria. (A) 2024 8:07 AM LEVERMAN ECLR Urine (Urine, Midstream) 05/27/2024 9:35 AM LEVERMAN 05/27/2024 2:34 PM LEVERMAN Comment:Specimen Source Site : Urine us Clarissa Telles M.D. LAB MICROBIOLOGY - GENERAL ORD ERABLES Final Result [facility] [address] [place] [address], [facility] ECLR [facility] in [address] [address] * (ABNORMAL) Urinalysis, with Microscopic: Urine, Midstream (05/27/2024 9:35 AM LEVERMAN) Source Urine, Urine, Midstream 05/27/2024 9:35 AM LEVERMAN CNFL Clarity Clear Clear 05/27/2024 9:39 AM LEVERMAN CNFL Color Yellow 05/27/2024 9:39 AM LEVERMAN CNFL Comment: ----REFERENCE VALUE---- Colorless Yellow Aubrie Blood Negative Negative 05/27/2024 9:39 AM LEVERMAN CNFL Nitrite Negative Negative 05/27/2024 9:39 AM LEVERMAN CNFL Leukocyte Esterase Trace(A) Negative 05/27/2024 9:39 AM LEVERMAN CNFL Protein Negative mg/dL 05/27/2024 9:39 AM LEVERMAN CNFL Comment: ----REFERENCE VALUE---- Negative Trace Glucose Negative Negative mg/dL 05/27/2024 9:39 AM LEVERMAN CNFL Ketones, QI(U) Negative Negative mg/dL 05/27/2024 9:39 AM LEVERMAN CNFL Bilirubin Negative Negative 05/27/2024 9:39 AM LEVERMAN CNFL pH 5.5 5.0 - 8.0 05/27/2024 9:39 AM LEVERMAN CNFL Specific [place] >=1.030 1.001 - 1.035 05/27/2024 9:39 AM LEVERMAN CNFL Urobilinogen 0.2 0.2 - 1.0 mg/dL 05/27/2024 9:39 AM LEVERMAN CNFL White Blood Cells 11-20(A) /hpf 05/27/2024 9:52 AM LEVERMAN CNFL Comment: ----REFERENCE VALUE---- Males: 0-3 Females: 0-10 Unknown: 0-10 Red Blood Cells 3-10(A) 0 - 2 /hpf 9:52 AM LEVERMAN CNFL Dysmorphic Red Blood Cells <=25 <=25 % 05/27/2024 9:52 AM LEVERMAN CNFL Mucus Present /hpf 05/27/2024 9:52 AM LEVERMAN CNFL Squamous Cells Occ-3 /hpf 05/27/2024 9:52 AM LEVERMAN CNFL Bacteria Present(A) None Seen 05/27/2024 9:52 AM LEVERMAN CNFL Urine (Urine, Midstream) 05/27/2024 9:35 AM LEVERMAN 05/27/2024 9:35 AM LEVERMAN us Clarsisa Telles M.D. LAB URINE ORDERABLES Final Res ult Performing Organization Address City/State/[facility] Co de Phone Number [facility] [address] [place] [id number], [facility] CNFL [facility] in [address] [address] documented in this encounter Visit Diagnoses Diagnosis Acute Cystitis Without Hematuria documented in this encounter Additional Health Concerns Assessment Noted Time PHQ-9 Depression Total Score: 17 021 3:09 PM CDT documented as of this encounter Care Teams Gaming Cage Worker Relationship Specialty Start Date End Date Elsewhere, Pcp PCP - General Internal Medicine 08/31/21 documented as of this encounter
--- OUTSIDE RECORDS SUMMARY | 2024-06-02 08:03 | XMS_ITS | Encounter Summary ---
Author Organization [facility] Address [address] [place] [id number] Care Team Providers Care Oracle Database Analyst Name Role Phone Elsewhere, Pcp Primary Care Provider Unavailabl e Encounter Details Date Type Department Care Team (Late st Contact Info) Description 05/28/2024 Clinical Communication [facility] at [facility] [address] [place] [phone] Su Layton M.D. [address] [place] [address] Social History Tobacco Use Types Packs/Day Years [...] often do you attend chur ch or 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 More than 4 times [...] Answer Date Recorded PHQ-2 Score 4 07/13/2020 [facility] Questionnaire Answer Date [...] or slept in a mcc (including now)? No 11/09/2020 Depression Answer Date [...] on file Legal Sex Female 9:27 AM TREATMENT COUNSELOR Gender Identity Female 11/17/2019 7:18 AM CDT Sexual Orientation Straight 11/17/2019 7: 18 AM CDT documented as of this encounter Plan of Treatment Not on file documented as of this encounter Visit Diagnoses Not on filedocumented in this encounter Additional Health Concerns Assessment Noted Time PHQ-9 Depression Total Score: 17 021 3:09 PM CDT documented as of this encounter Care Teams Oracle Database Analyst Relationship Specialty Start Date End Date Elsewhere, Pcp PCP - General Internal Medicine 08/31/21 documented as of this encounter
--- OUTSIDE RECORDS SUMMARY | 2024-06-02 08:03 | XMS_ITS | Encounter Summary ---
Author Organization [facility] Address [address] [place] [address] Care Team Providers Care Bakery Technician Name Role Phone Elsewhere, Pcp Primary Care Provider Unavailabl e Reason for Visit * Reason Comments Difficulty Urinating Pt c/o burning with urination x 3 days. Denies fevers, chills in video. Denies vaginal symptoms. On antibiotics last month due to respiratory illness Encounter Details Date Type Department Care Team ([facility] st Contact Info) Description 05/27/2024 8:15 AM FLY FRAME TENDER Telemedicine [facility] at [facility] [address] [place] [address] Clarissa Telles M.D. [address] [place] [address] Acute Cystitis Without Hematuria (Primary Dx) Social [...] often do you attend chur ch or holiness services? More than 4 times per year 11/09/2020 Do you belong to any clubs o r organizations such as adventism groups, unions, fraternal [...] Answer Date Recorded PHQ-2 Score 4 07/13/2020 [facility] - Occupational Stress Questionnaire Answer Date [...] on file Legal Sex Female 9:27 AM FLY FRAME TENDER Gender Identity Female 11/17/2019 7:18 AM CDT Sexual Orientation Straight 11/17/2019 7: 18 AM CDT documented as of this encounter Patient Instructions * Attachments The following attachments cannot be sent through Care Everywhere. * Urinary Tract Infection and Kidney Infection documented in this encounter Progress Notes * Clarissa Telles M.D. - 05/27/2024 8:15 AM CST SUBJECTIVE Consult conducted via real-time audio/video technology by Clarissa Telles M.D. working in the [facility] location to the patient's home. Chief Complaint Patient presents with Difficulty Urinating Pt c/o burning with urination x 3 days. Denies fevers, chills in video. Denies vaginal symptoms. Onantibiotics last month due to respiratory illness HISTORY OF PRESENT ILLNESS 43 years-old Female presenting with Frequent urination. - Exact starting time: 3 Days ASSOC. SYMPTOMS / EXPOSURE - Abdominal pain - Side: Both sides - Location: Around the belly button - Constipation - Back pain - Burning or painful urination - Severity: Severe - Trend: It's worsening - Urinary urgency - Flank pain - Side: Both sides - Smelly urine - Pelvic pain - Severity: Mild NOTE FROM PATIENT: Possible UTI or Bladder infection UTI - May 27, 2024 - Reports similarity to prior UTI - 3-4 infections in the last 12 months ?? - No UTI in the last 6 months - Bactrim (Sulfamethoxazole & Trimethoprim) helped in the past - Finished antibiotics over 3 months ago - No history of drug-resistant UTI - Has a history of kidney infection(s) ?? - No history of kidney stones - No history of urethral instrumentation or stents in kidney - No hospitalization in the last 3 months - No STI concern & intake - May 27, 2024 - Denies - Not DENIES SYMPTOMS - GENERAL X Fever X Fatigue X Chills - GI X Vomiting X Nausea X Diarrhea - GENITOURINARY X Frequent night urination X Blood in urine X Urinary difficulties - EXPOSURE X Unprotected sex Medical History[1] Current Medications[2] Genitourinary: Positive for pain with urination, urgency and frequent urination. All other systems reviewed and are negative. All systems reviewed with pertinent positives/negatives documented above in HPI; all other review of systems negative. OBJECTIVE Physical Exam General: AAO x 3. Appears well-developed and well-nourished. Pulmonary: Effort appears normal. Does not appear to be in acute respiratory distress. Speaking in complete sentences. Skin: Appears to be intact and dry with no rash, erythema or lesions. Psychiatric: Normal mood and affect. Behavior is normal. Judgement and thought content are normal. ASSESSMENT / PLAN #1 Acute Cystitis Without Hematuria - Urinalysis, with Microscopic: Urine, Midstream; Future; Expected date: 05/27/2024 - Bacterial Culture, Aerobic + Susceptibility, Urine; Future; Expected date: 05/27/2024 - phenazopyridine (Pyridium) 200 mg tablet; Take 1 tablet (200 mg total) by mouth 3 (three) times aday as needed for painful urination., Starting 05/27/2024, Normal Advised on hydration Advised on hygiene with bathroom utilization. Advised on prevention of constipation and urinary practices such as not holding urine for long periods of time Will obtain testing due to recent antibiotic use Advised severe pain, flank pain that worsens, rigors chills fevers nausea or vomiting warrant an inperson evaluation We have discussed supportive care, return precautions, [...] Asthma Action Plan Never done COVID-19 Vaccine ( - 2023- season) 2023 Depression Screening (Annual PHQ-2) Never done Cervical/Vaginal Cancer Screening 11/19/2024 Lipid (Cholesterol) Screening 07/08/2025 DTaP,Tdap,and Td Vaccines (5 - Td or Tdap) 04/19/2031 Hepatitis B Vaccines Completed Influenza Vaccine Completed HIV Screening Completed Hepatitis C Screening Completed IPV Vaccines Aged Out [1] Past Medical History: Diagnosis Date Asthma (HCC) Migraine Headache [2] Current Outpatient Medications Medication Sig Dispense Refill [...] as needed for cough. 20 capsule 0 buPROPion (Wellbutrin SR) 150 mg 12 hr tablet Take 1 tablet (150 mg total) by mouth daily for 3 days, THEN 1 tablet (150 mg total) 2 (two) times a day. Start 1 to 2 weeks prior to quit date. 180 tablet 3 cetirizine (ZyrTEC) 10 mg tablet Take 1 [...] as needed for insomnia 120 mL 1 doxycycline monohydrate (Monodox) 100 mg capsule Take 1 capsule (100 mg total) by mouth 2 (two) times a day. 20 capsule 0 fluticasone propionate (Flonase) 50 mcg/actuation nasal spray [...] by mouth daily. 120 tablet 2 nicotine (Nicoderm CQ) 14 mg/[address] 1 patch on the skin daily for 14 days. 14 patch 0 nicotine (Nicoderm CQ) 21 mg/[address] 1 patch on the skin daily for 28 days 28 patch 0 nicotine (Nicoderm CQ) 7 mg/[address] 1 patch on the skin daily for 14 days. 14 patch 0 nicotine (Nicotrol NS) 10 mg/mL nasal spray [...] timesa day until gone 40 tablet 0 phenazopyridine (Pyridium) 200 mg tablet Take 1 tablet (200 mg total) by mouth 3 (three) times a day as needed for painful urination. 9 tablet 0 phentermine 15 mg capsule Take [...] capsule by mouth daily. 90 capsule 0 sqhlaqguuapry-xuakstryl-cgjizpnw-white petrolatum (Preparation H Maximum Strength) 0.25-1 % cream 1applic rectally 2 to 4 times per day As Needed for hemorrhoids for 30 days 51 g 3 predniSONE (Deltasone) 20 mg tablet Take 2 tablets (40 mg total) by mouth daily for 5 days. 10 tablet 0 pseudoephedrine (Sudogest) 30 mg tablet Take 1 [...] No current facility-administered medications for this visit. FRAME TENDER documented in this encounter Plan of Treatment Not on file documented as of this encounter Results * (ABNORMAL) Bacterial Culture, Aerobic + Susceptibility, Urine (05/27/2024 9:35 AM FLY FRAME TENDER) Urine Culture Urogenital microbiota, susceptibilities not performed per laboratory criteria. (A) 2024 8:07 AM FLY FRAME TENDER ECLR Urine (Urine, Midstream) 05/27/2024 9:35 AM FLY FRAME TENDER 05/27/2024 2:34 PM FLY FRAME TENDER Comment:Specimen Source Site : Urine us Clarissa Telles M.D. LAB MICROBIOLOGY - GENERAL ORD ERABLES Final Result [facility] [address] [place] [address], [facility] ECLR [facility] in [address] [address] * (ABNORMAL) Urinalysis, with Microscopic: Urine, Midstream (05/27/2024 9:35 AM FLY FRAME TENDER) Source Urine, Urine, Midstream 05/27/2024 9:35 AM FLY FRAME TENDER CNFL Clarity Clear Clear 05/27/2024 9:39 AM FLY FRAME TENDER CNFL Color Yellow 05/27/2024 9:39 AM FLY FRAME TENDER CNFL Comment: ----REFERENCE VALUE---- Colorless Yellow Aubrie Blood Negative Negative 05/27/2024 9:39 AM FLY FRAME TENDER CNFL Nitrite Negative Negative 05/27/2024 9:39 AM FLY FRAME TENDER CNFL Leukocyte Esterase Trace(A) Negative 05/27/2024 9:39 AM FLY FRAME TENDER CNFL Protein Negative mg/dL 05/27/2024 9:39 AM FLY FRAME TENDER CNFL Comment: ----REFERENCE VALUE---- Negative Trace Glucose Negative Negative mg/dL 05/27/2024 9:39 AM FLY FRAME TENDER CNFL Ketones, QI(U) Negative Negative mg/dL 05/27/2024 9:39 AM FLY FRAME TENDER CNFL Bilirubin Negative Negative 05/27/2024 9:39 AM FLY FRAME TENDER CNFL pH 5.5 5.0 - 8.0 05/27/2024 9:39 AM FLY FRAME TENDER CNFL Specific [place] >=1.030 1.001 - 1.035 05/27/2024 9:39 AM FLY FRAME TENDER CNFL Urobilinogen 0.2 0.2 - 1.0 mg/dL 05/27/2024 9:39 AM FLY FRAME TENDER CNFL White Blood Cells 11-20(A) /hpf 05/27/2024 9:52 AM FLY FRAME TENDER CNFL Comment: ----REFERENCE VALUE---- Males: 0-3 Females: 0-10 Unknown: 0-10 Red Blood Cells 3-10(A) 0 - 2 /hpf 9:52 AM FLY FRAME TENDER CNFL Dysmorphic Red Blood Cells <=25 <=25 % 05/27/2024 9:52 AM FLY FRAME TENDER CNFL Mucus Present /hpf 05/27/2024 9:52 AM FLY FRAME TENDER CNFL Squamous Cells Occ-3 /hpf 05/27/2024 9:52 AM FLY FRAME TENDER CNFL Bacteria Present(A) None Seen 05/27/2024 9:52 AM FLY FRAME TENDER CNFL Urine (Urine, Midstream) 05/27/2024 9:35 AM FLY FRAME TENDER 05/27/2024 9:35 AM FLY FRAME TENDER us Clarissa Telles M.D. LAB URINE ORDERABLES Final Res ult [facility] [address] [place] [id number], [facility] CNFL [facility] in [address] [address] documented in this encounter Visit Diagnoses Diagnosis Acute Cystitis Without Hematuria- Primary documented in this encounter Additional Health Concerns Assessment Noted Time PHQ-9 Depression Total Score: 17 07/13/ 021 3:09 PM CDT documented as of this encounter Care Teams Bakery Technician Relationship Specialty Start Date End Date Elsewhere, Pcp PCP - General Internal Medicine 08/31/21 documented as of this encounter
--- OUTSIDE RECORDS SUMMARY | 2024-06-02 08:04 | XMS_ITS | Clinical Summary ---
Author Organization [facility] Address [place], [place] [address] Care Team Providers Care Regroover Name Role Phone Unknown, Doctor Primary Care Provider Unavailabl e Allergies Active Allergy Reactions Criticality Noted Date Comments Amoxicillin-Pot Clavulanate GI Upset 01/04/20 12 Ciprofloxacin *Unknown 01/04/2012 Medications fexofenadine (KAILYN) 180 mg tablet One tab [...] drink = 0.6 oz pur e alcohol) Comments Unknown Sex and Gender Information Value Date Recorded Sex Assigned at Not on file Legal Sex Female 6:14 AM MAINTENANCE AND CUSTODIAN SUPERVISOR Gender Identity Not on file Sexual Orientation [...] 12/17/2023 Pap test for age 21-65 11/19/2024 , 04/29/2013 Pneumococcal series for age 6-49 Aged Out No longer eligible b ased on patient's age to complete this topic Procedures Procedure Name Priority Date/Time Associated Diagnosis Comments HAND STRIPPER THIN PREP PAP SCREEN IMAGED Routine 11/19/2021 11:34 AM CDT from Last 3 Months or Most Recently Relevant to Health Maintenance Results * HAND STRIPPER THIN PREP PAP SCREEN IMAGED (11/19/2021 11:34 AM CDT) Case Report Gynecologic Cytology Report Case: [id number] Authorizing Provider: Alia Roberts NP Collected: 11/19/2021 1134 Ordering Location: [facility] Received: 11/22/2021 1537 First Screen: Rafael Kurtz Specimen: HAND STRIPPER ThinPrep Vial Screening, Cervical/Vaginal 12/06/2021 10:34 AM CDT [facility] INTERPRETATION/ RESULT NEGATIVE FOR INTRAEPITHELIAL LESION OR MALIGNANCY (NIL) (none) 12/06/2021 10:34 AM CDT [facility]-C ENTRAL LABORATORY IMEN ADEQUACY Satisfactory for evaluation No endocervical component seen 12/06/2021 10:34 AM CDT [facility]-C ENTRAL LABORATORY HPV REQUEST HPV not requested 2021 10:34 AM CDT [facility]-C ENTRAL LABORATORY Additional Information 12/06/2021 10:34 AM CDT [facility] LABORATORY-C ENTRAL LABORATORY Comment: Interpreted at [facility] [employer] [facility], Central Laboratory - [address] [place], [place] [address] Automated Review Successful 12/06/2021 10:34 AM CDT [facility]-C ENTRAL LABORATORY Comment:Specimen processed s uccessfully by automated numerical control operator device, ThinPrep Imaging System, [employer] Note The pap test is a screening technique, not a diagnostic procedure. It is used primarily to screen for squamous cancers and precursor lesions. Published studies have shown that it is subject to both false negative and false positive results. The pap test should not be used as the sole means to diagnose or exclude pre-malignant and malignant lesions. 12/06/2021 10:34 AM CDT [facility] LABORATORY-C ENTRAL LABORATORY Other (Cervical/Vagina l) 11/19/2021 11:34 AM CDT 11/22/2021 3:37 PM CDT us Alia Roberts NP PATHOLOGY/CYTOLOGY Final R esult [facility] LABORATORY-CENTRAL LABORATORY [address] [place] [address], [place] from Last 3 Months or Most Recently Relevant to Health Maintenance Care Teams Regroover Relationship Specialty Start Date End Date Unknown, Doctor . PCP - General Emergency Medicine 04/08/11
[2024-06-02 08:26] LABS: Appearance Urine Slightly Cloudy (Clear); Bilirubin Urine Negative (Negative); Blood Urine Trace-intact (Negative); Color Urine Yellow (Yellow); Glucose Urine Negative (Negative); Ketones Urine Negative (Negative); Leukocyte Esterase Urine Trace (Negative); Nitrite Urine Negative (Negative); Protein Urine Negative (Negative); Specific Gravity Urine 1.015 (1.000-1.030); Urobilinogen Urine 0.2 (0.2-1.0)
[2024-06-02 08:38] LABS: RBC Urine 0-2 (0-2); WBC Clumps Urine Few
[2024-06-02 08:39] LABS: Amorphous Sediment Urine Few; Bacteria Urine Few; Fine Granular Casts Urine Few; Squamous Epithelial Cell Urine Moderate (None-Few)
--- NOTE | 2024-06-02 08:44 | ED.GENADULT ---
HPI - General Adult General Date Seen: 06/02/24 Chief complaint: Flank Pain Stated complaint: poss kidney infection Time Seen by Provider: 06/02/24 08:15 History of Present Illness HPI narrative: Patient is a 44-year-old woman here primarily for evaluation of pain in both feet. This is been ongoing since she says middle of last week. She has been seen apparently recently a number of times in various locations, originally was seen on May 28 at [facility], she was put on Bactrim at that time for a urinary tract infection. She is still taking that at this time, she is not sure whether she was prescribed fiber 7 days. She was seen on the in [place] for ongoing concerns, specifically of painful hemorrhoids. She was back in the ER at some point after that for the hemorrhoids and also this foot pain. She says that they did not really address the foot pain. Her UTI symptoms have improved. She continues to feel fatigued and complained of headache to the nurse. To me her primary complaint is that of pain in both feet which has been constant and is only improved briefly by oxycodone. She has not noted any swelling, redness, rashes. No reported motor symptoms and no other paresthesias. Medical history is reviewed. She does smoke cigarettes, denies drug or alcohol use. Martin there allergies to Cipro and amoxicillin. Related Data Home Medications ?Medication ?Instructions ?Recorded ?Confirmed cholecalciferol (vitamin D3) 25 50 mcg PO QDAY 06/07/22 06/02/24 mcg (1,000 unit) capsule hydrocortisone 2.5 % topical cream applic topical 06/02/24 Previous Rx's ?Medication ?Instructions ?Recorded cetirizine 10 mg tablet 10 mg PO QDAY #90 tabs 12/21/21 acetaminophen 500 mg tablet 1,000 mg (2 x 500 mg) PO Q6H PRN 06/24/22 Pain 30 days #60 tabs ibuprofen 600 mg tablet 600 mg PO Q6H PRN Pain 30 days #60 06/24/22 tabs fluticasone propionate 50 1 spray intranasal QDAY #16 grams 03/13/23 mcg/actuation nasal spray,suspension (Flonase Allergy Relief) magnesium oxide 400 mg (241.3 mg 400 mg PO DAILY #90 tabs 08/25/23 magnesium) tablet topiramate 100 mg tablet 100 mg PO QDAY 90 days #90 tabs 07/08/24 topiramate 25 mg tablet 25 mg PO ONCE 90 days #90 tabs 10/23/23 ondansetron 4 mg disintegrating 4 mg PO Q6-8H PRN for 12/29/23 tablet nausea/vomiting #30 tabs albuterol sulfate 90 mcg/actuation 2 puff inhalation Q4-6H PRN 02/01/24 aerosol inhaler shortness of breath or wheezing 30 days #8.5 grams nicotine See Rx Instructions transdermal 05/22/24 21mg/24hr-14mg/24hr-7mg/24hr daily .COMPLEX #56 patches transderm patches,sequentl lidocaine 3 % topical cream 1 applic topical BID PRN pain 05/29/24 #28.35 grams sulfamethoxazole 800 1 tab PO BID 7 days #14 tabs 05/29/24 mg-trimethoprim 160 mg tablet (Bactrim DS) gabapentin 300 mg capsule 300 mg PO BID #20 caps 06/02/24 Allergies Allergy/AdvReac Type Severity Reaction Status Date / Time ciprofloxacin Allergy Intermediate GI distress Verified 06/02/24 08:12 Quinolones Allergy Intermediate Sick Verified 06/02/24 08:12 amoxicillin (From Augmentin) Allergy gi upset Verified 06/02/24 08:12 clavulanic acid (From Allergy gi upset Verified 06/02/24 08:12 Augmentin) Review of Systems Status of ROS: Reports: 10 or more systems reviewed and unremarkable except as noted in History and below [facility] Medical History Influenza-like illness ?J11.1 - Influenza due to unidentified influenza virus with other respiratory manifestations (ICD-10) Sinus pressure ?J34.89 - Other specified disorders of nose and nasal sinuses (ICD-10) Otitis media ?H66.90 - Otitis media, unspecified, unspecified ear (ICD-10) Serous otitis media ?H65.90 - Unspecified nonsuppurative otitis media, unspecified ear (ICD-10) Yeast infection ?B37.9 - Candidiasis, unspecified (ICD-10) Left shoulder pain ?M25.512 - Pain in left shoulder (ICD-10) Migraine headache ?G43.909 - Migraine, unspecified, not intractable, without status migrainosus (ICD-10) Sinusitis ?J32.9 - Chronic sinusitis, unspecified (ICD-10) Hemorrhoids ?K64.9 - Unspecified hemorrhoids (ICD-10) Menometrorrhagia ?N92.1 - Excessive and frequent menstruation with irregular cycle (ICD-10) Anxiety and depression ?F41.9 - Anxiety disorder, unspecified (ICD-10) ?F32.A - Depression, unspecified (ICD-10) Vaginal odor ?N89.8 - Other specified noninflammatory disorders of vagina (ICD-10) History of cervical dysplasia ?Z87.410 - Personal history of cervical dysplasia (ICD-10) Herpes zoster ?B02.9 - Zoster without complications (ICD-10) Hemorrhoids ?K64.9 - Unspecified hemorrhoids (ICD-10) Diverticulosis of colon ?K57.30 - Diverticulosis of large intestine without perforation or abscess without bleeding (ICD-10) Cough ?R05.9 - Cough, unspecified (ICD-10) Biliary colic ?K80.50 - Calculus of bile duct without cholangitis or cholecystitis without obstruction (ICD-10) Asthma ?J45.909 - Unspecified asthma, uncomplicated (ICD-10) Surgical History History of vaginal hysterectomy ?Z90.710 - Acquired absence of both cervix and uterus (ICD-10) Status post laparoscopic cholecystectomy ?Z90.49 - Acquired absence of other specified parts of digestive tract (ICD-10) History of sinus surgery ?Z98.890 - Other specified postprocedural states (ICD-10) History of loop electrical excision procedure (LEEP) ?Z98.890 - Other specified postprocedural states (ICD-10) History of colposcopy with cervical biopsy ?Z98.890 - Other specified postprocedural states (ICD-10) Encounter for sterilization (06/22/21) ?Z30.2 - Encounter for sterilization (ICD-10) Family History Mother Depression Diabetes High blood pressure Father High blood pressure Diverticulosis Aunt Breast cancer Maternal Grandfather Heart disease Paternal Grandfather Heart disease Social History Narrative: Tobacco use daily, pack per day. Alcohol, rare. No illicit drug use. Significant other and 3 children. Live in [place]. [facility], half-way. Smoking Status: Current every day smoker What tobacco products do you use: cigarettes Smoking packs per day: 1 Smoking cigarettes per day: 20.0 Years smoked: 15 Smoking pack-years: 15.00 Do you use any of these nicotine containing products: None Second hand tobacco smoke exposure: No How often do you have a drink containing alcohol: monthly or less Alcohol type: beer How many standard drinks containing alcohol do you have on a typical day: 1 or 2 How often do you have six or more drinks on one occasion: Never AUDIT-C Alcohol total score: 1 Non-prescribed substance use: denies use Caffeine: Yes (coffee- 1 pot/day. soda - 2 cans per day.) Are you using contraception or practicing any form of control: Yes (Tubal ligation) service: No Exam Narrative: Exam Narrative: Vital signs reviewed In general, alert, nontoxic woman. Extremities: Examination of both feet shows no edema or erythema. Dorsalis pedis pulses are intact bilaterally. Skin: Warm dry well perfused. Const: Vital Signs, click to edit/add: Vital Signs - 24 hr 06/02/24 08:03 Temperature 98.0 F Pulse Rate [Pulse Oximeter] 95 Respiratory Rate 18 Blood Pressure [Ri ght Upper Arm] 115/75 Pulse Oximetry 96 Oxygen Delivery Me thod Room Air Documenting provider has reviewed patient's vital signs: yes Course Course ED Course: Discussed with her that the etiology of her symptoms will probably not be something we can diagnose in the ER. Will check a metabolic panel, B12, folate levels and will try gabapentin for symptomatic relief. I am also going to have her discontinue the Bactrim, she has essentially completed of full course at this time. Unclear whether this may be contributing but I think it would be better just to discontinue now. Metabolic panel is normal. She has 10-25 white cells in her urine but given improvement of symptoms and recent antibiotics I would suggest holding off on any further treatment. She did complain of a migraine, she gets these frequently and says Toradol help so will give her IM Toradol and some Zofran. B12 and folate are pending. For now, I am going to try her on some gabapentin, she will need primary care follow-up and consideration of neurology referral if she is not improving. Return any time for acute worsening new symptoms such as erythema, edema, rashes, fevers or other neurologic changes. Vital Signs Vital signs: Initial Vital Signs Temperature 98.0 F 06/02/24 08:03 Temperature Source Temporal Artery Scan 06/02/24 08:03 Pulse Rate 95 06/02/24 08:03 Respiratory Rate 18 06/02/24 08:03 Blood Pressure 115/75 06/02/24 08:03 Blood Pressure Mean 88 06/02/24 08:03 Blood Pressure Position Sitting 06/02/24 08:03 Pulse Oximetry 96 06/02/24 08:03 Oxygen Delivery Method Room Air 06/02/24 08:03 Vital Signs Temperature 98.0 F 06/02/24 08:03 Pulse Rate 95 06/02/24 08:03 Respiratory Rate 18 06/02/24 08:03 Blood Pressure 115/75 06/02/24 08:03 Pulse Oximetry 96 06/02/24 08:03 Oxygen Delivery Method Room Air 06/02/24 08:03 Temperature 98.0 F 06/02/24 08:03 Pulse Rate 95 06/02/24 08:03 Respiratory Rate 18 06/02/24 08:03 Blood Pressure 115/75 06/02/24 08:03 Pulse Oximetry 96 06/02/24 08:03 Oxygen Delivery Method Room Air 06/02/24 08:03 Medical Decision Making Lab Data Labs: Lab Results 06/02/24 06/02/24 Range/Units 08:18 08:49 Sodium 136 (135-149) mmol/L Potassium 3.9 (3.6-5.1) mmol/L Chloride 107 (96-114) mmol/L Carbon Dioxide 24 (20-32) mmol/L Anion Gap 5 L (7-15) mEq/L BUN 16 (5-24) mg/dL Creatinine 1.1 (0.5-1.5) mg/dL Estimated Creat Clear 52.69 Estimated GFR 64 ml/min Glucose 90 (60-115) mg/dL Calcium 8.6 (8.4-10.6) mg/dL C-Reactive Protein 3.6 H (0.5-1.0) mg/dL Urine Color Yellow (Yellow) Urine Appearance Slightly Cloudy A (Clear) Urine pH 8.0 (5.0-8.5) Ur Specific [place] 1.015 (1.000-1.030) Urine Protein Negative (Negative) Urine Glucose (UA) Negative (Negative) Urine Ketones Negative (Negative) Urine Blood Trace-intact A (Negative) Urine Nitrite Negative (Negative) Urine Bilirubin Negative (Negative) Urine Urobilinogen 0.2 (0.2-1.0) Ur Leukocyte Esterase Trace A (Negative) Urine RBC 0-2 (0-2) Urine WBC 10-25 A (0-5) Urine WBC Clumps Few A (None) Ur Squamous Epith Cells Moderate A (None-Few) Amorphous Sediment Few A (None) Urine Bacteria Few A (None) Fine Granular Casts Few A (None) Discharge Plan Discharge Clinical Impression: Neuropathic pain of both feet Patient Disposition: Home, Self-Care Condition: Stable Instructions: Peripheral Neuropathy (ED) Additional Instructions: I have sent a prescription for you for gabapentin to try and help with your symptoms. The labs that I have back today are normal. Your blood sugar does not suggest that you have diabetes. There are couple of labs that are still pending. We will call you if these are significantly abnormal. Please follow-up with lAonso Cook for ongoing symptoms. I would suggest that this time that you discontinue the Bactrim in case it is contributing to your symptoms. You have completed an adequate course to treat urinary tract infection so I do not think we need to switch to to a different antibiotic. Prescriptions: New gabapentin 300 mg capsule 300 mg PO BID Qty: 20 0RF No Action nicotine 21-14-7 mg/24 hr patch, TD daily, sequential See Rx Instructions transdermal .COMPLEX Qty: 56 0RF Rx Instructions: apply 1-21 mg NICOTINE PATCH daily for 28 days; follow with 1-14 mg PATCH daily for 14 days, then 1-7mg PATCH daily for 14 days transdermal cholecalciferol (vitamin D3) 25 mcg (1,000 unit) capsule 50 mcg PO QDAY fluticasone propionate [Flonase Allergy Relief] 50 mcg/actuation spray,suspension 1 spray intranasal QDAY Qty: 16 6RF Rx Instructions: administer into each nostril albuterol sulfate 90 mcg/actuation HFA aerosol inhaler 2 puff inhalation Q4-6H PRN (Reason: shortness of breath or wheezing) 30 Days Qty: 8.5 1RF sulfamethoxazole-trimethoprim [Bactrim DS] 800-160 mg tablet 1 tab PO BID 7 Days Qty: 14 0RF lidocaine 3 % cream 1 applic topical BID PRN (Reason: pain) Qty: 28.35 0RF hydrocortisone 2.5 % cream topical acetaminophen 500 mg Tablet 1,000 mg PO Q6H PRN (Reason: Pain) 30 Days Qty: 60 0RF ibuprofen 600 mg Tablet 600 mg PO Q6H PRN (Reason: Pain) 30 Days Qty: 60 0RF cetirizine 10 mg tablet 10 mg PO QDAY Qty: 90 3RF magnesium oxide 400 mg (241.3 mg magnesium) tablet 400 mg PO DAILY Qty: 90 3RF topiramate 25 mg tablet 25 mg PO ONCE 90 Days Qty: 90 3RF topiramate 100 mg tablet 100 mg PO QDAY 90 Days Qty: 90 3RF Rx Instructions: 100 mg in addition to the 25 mg ondansetron 4 mg tablet,disintegrating 4 mg PO Q6-8H PRN (Reason: for nausea/vomiting) Qty: 30 6RF Follow Up/Referrals: Alia Roberts, W[employer] FARM SUPPORT SPECIALIST, LAYBOY TENDER [Primary Care Provider] - Stand Alone Forms: [facility] Info Instructions
--- OUTSIDE RECORDS SUMMARY | 2024-06-02 08:49 | XMS_ITS | Encounter Summary ---
Author Organization [facility] Address [address] [place] [id number] Care Team Providers Care Hide Salter Name Role Phone Elsewhere, Pcp Primary Care Provider Unavailabl e Reason for Visit * Reason Comments Difficulty Urinating Pt c/o burning with urination x 3 days. Denies fevers, chills in video. Denies vaginal symptoms. On antibiotics last month due to respiratory illness Encounter Details Date Type Department Care Team ([facility] st Contact Info) Description 05/27/2024 8:15 AM [employer] PLANT [employer]ANT Telemedicine Primary Care on Demand at [facility] [address] [place] [address] Clarissa Telles M.D. [address] [place] [address] Acute Cystitis Without Hematuria (Primary [...] often do you attend chur ch or denominational services? More than 4 times per year 11/09/2020 Do you belong to any clubs o r organizations such as episcopal groups, unions, fraternal [...] Answer Date Recorded PHQ-2 Score 4 07/13/2020 [facility] - Occupational Stress Questionnaire Answer Date [...] on file Legal Sex Female 9:27 AM SCHOOL PLANT CONS[employer]ANT Gender Identity Female 11/17/2019 7:18 AM CDT [...] capsule by mouth daily. 90 capsule 0 [id number]-[id number]-white petrolatum (Preparation H Maximum Strength) 0.25-1 % [...] No current facility-administered medications for this visit. [employer]ANT CONSULTANT documented in this encounter Plan of Treatment Not on file documented as of this encounter Results * (ABNORMAL) Bacterial Culture, Aerobic + Susceptibility, Urine (05/27/2024 9:35 AM SCHOOL PLANT CONSULTANT) Urine Culture Urogenital microbiota, susceptibilities not performed per laboratory criteria. (A) 2024 8:07 AM [employer] PLANT CONSULTANT ECLR Urine (Urine, Midstream) 05/27/2024 9:35 AM SCHOOL PLANT CONSULTANT 05/27/2024 2:34 PM [employer] PL[employer] CONSULTANT Comment:Specimen Source Site : Urine us Clarissa Telles M.D. LAB MICROBIOLOGY - GENERAL ORD ERABLES Final Result [facility] [address] [place] [id number], [facility] ECLR [facility] in [address] [address] * (ABNORMAL) Urinalysis, with Microscopic: Urine, Midstream (05/27/2024 9:35 AM SCHOOL PLANT CONSULTANT) Source Urine, Urine, Midstream 05/27/2024 9:35 AM SCHO[employer] PLANT CONSULTANT CNFL Clarity Clear Clear 05/27/2024 9:39 AM SCHOOL PLANT CONSULTANT CNFL Color Yellow 05/27/2024 9:39 AM SCHOOL PLANT CONSULTANT CNFL Comment: ----REFERENCE VALUE---- Colorless Yellow Aubrie Blood Negative Negative 05/27/2024 9:39 AM SCHOOL PLANT CONSULTANT CNFL Nitrite Negative Negative 05/27/2024 9:39 AM SCHOOL PLANT CONSULTANT CNFL Leukocyte Esterase Trace(A) Negative 05/27/2024 9:39 AM SCHOOL PLANT CONSULTANT CNFL Protein Negative mg/dL 05/27/2024 9:39 AM SCHOOL PLANT CONSULTANT CNFL Comment: ----REFERENCE VALUE---- Negative Trace Glucose Negative Negative mg/dL 05/27/2024 9:39 AM SCHO[employer] PLANT CONSULTANT CNFL Ketones, QI(U) Negative Negative mg/dL 05/27/2024 9:39 AM SCHO[employer] PLANT CONSULTANT CNFL Bilirubin Negative Negative 05/27/2024 9:39 AM SCHOOL PLANT CONSULTANT CNFL pH 5.5 5.0 - 8.0 05/27/2024 9:39 AM S[employer]OL PLANT CONSULTANT CNFL Specific [place] >=1.030 1.001 - 1.035 05/27/2024 9:39 AM SCHOOL PLANT CONSULTANT CNFL Urobilinogen 0.2 0.2 - 1.0 mg/dL 05/27/2024 9:39 AM SCHO[employer] PL[employer] CONSULTANT CNFL White Blood Cells 11-20(A) /hpf 05/27/2024 9:52 AM SCHOOL PLANT CONSULTANT CNFL Comment: ----REFERENCE VALUE---- Males: 0-3 Females: 0-10 Unknown: 0-10 Red Blood Cells 3-10(A) 0 - 2 /hpf 9:52 AM SCHO[employer] PLANT CONSULTANT CNFL Dysmorphic Red Blood Cells <=25 <=25 % 05/27/2024 9:52 AM SCHOOL PLANT CONSULTANT CNFL Mucus Present /hpf 05/27/2024 9:52 AM SCHOOL PLANT CONSULTANT CNFL Squamous Cells Occ-3 /hpf 05/27/2024 9:52 AM SCHOOL PLANT CONSULTANT CNFL Bacteria Present(A) None Seen 05/27/2024 9:52 AM SCHOOL PLANT CONSULTANT CNFL Urine (Urine, Midstream) 05/27/2024 9:35 AM S[employer] PLANT CONSULTANT 05/27/2024 9:35 AM SCHOOL PLANT CONSULTANT us Clarissa Telles M.D. LAB URINE ORDERABLES Final Res ult [facility] [address] [place] [id number], [facility] CNFL [facility] in [address] [address] documented in this encounter Visit Diagnoses Diagnosis Acute Cystitis Without Hematuria- Primary documented in this encounter Additional Health Concerns Assessment Noted Time PHQ-9 Depression Total Score: 17 07/13/ 021 3:09 PM CDT documented as of this encounter Care Teams Hide Salter Relationship Specialty Start Date End Date Elsewhere, Pcp PCP - General Internal Medicine 08/31/21 documented as of this encounter
--- OUTSIDE RECORDS SUMMARY | 2024-06-02 08:49 | XMS_ITS | Clinical Summary ---
Author Organization [facility] Address [address] [place] [address] Care Team Providers Care Press Setup Operator Name Role Phone Elsewhere, Pcp Primary Care Provider Unavailabl e Source Comments Patient records contain information from all sites at [facility]. For routine questions regarding patient records, call [phone] during business hours, M-F 8:00 AM - 5:00 PM Central Time. Record requests for emergency care only can be directed to [phone] at any time.[facility] Allergies Active Allergy Reactions Criticality [...] directed 90 mL 1 04/21/19 10:49 AM VAMP LINER 022 Active ondansetron ODT (ZOFRAN-ODT) 4 mg disintegrating tablet Dissolve 1 tablet (4 mg total) in the mouth every 12 (twelve) hours. 10 tablet 023 Active ibuprofen (MOTRIN) 600 mg tablet Take 1 tablet (600 mg total) by mouth every 6 (six) hours as needed for Pain 60 tablet 06/25/19 2:00 PM VAMP LINER 023 Active acetaminophen (TYLENOL) 500 mg tablet Take 2 tablets (1,000 mg total) by mouth every 6 (six) hours as needed for Pain. 100 tablet 06/25/19 2:00 PM VAMP LINER 023 Active tamsulosin (FLOMAX) 0.4 mg 24 [...] discussed. 53 tablet 03/22/20 23 12:20 PM VAMP LINER 023 Active fluticasone propionate (Flonase) 50 mcg/actuation [...] 120 tablet 2 03/29/20 24 4:39 PM VAMP LINER 024 Active hydrOXYzine (VistariL) 25 mg capsule [...] 15 tablet 6 05/01/19 25 3:27 PM VAMP LINER 024 Active topiramate (Topamax) 25 mg tablet Take 1 tablet (25 mg total) by mouth daily with 100 mg tablet for a total daily dose of 125 mg. 90 tablet 3 04/26/19 25 2:25 PM VAMP LINER 024 Active topiramate (Topamax) 100 mg tablet Take 1 tablet (100 mg total) by mouth daily. Take 100 mg in addition to the 25 mg. 90 tablet 3 04/26/19 25 2:25 PM VAMP LINER 024 Active phentermine 15 mg capsule Take [...] 15 tablet 6 05/29/19 25 2:56 PM VAMP LINER 024 Active ondansetron ODT (Zofran-ODT) 4 mg disintegrating tablet Dissolve 1 tablet (4 mg total) in the mouth every 6 to 8 hours as needed for nausea or vomiting. 30 tablet 6 05/15/19 25 3:37 PM VAMP LINER 024 Active albuterol 90 mcg/actuation inhaler Inhale 2 puffs every 4 to 6 hours as needed for wheezing or shortness of breath. 18 g 1 02/02/20 24 10:10 AM CDT 024 Active cetirizine (ZyrTEC) 10 mg tablet Take 1 tablet (10 mg total) by mouth daily as needed. 90 tablet 3 05/31/19 25 3:56 PM VAMP LINER 024 Active fluticasone propionate (Flonase) 50 mcg/actuation nasal spray Administer 1-2 sprays into each nostril daily. 48 g 3 02/20/20 24 3:44 PM VAMP LINER 024 Active benzonatate (Tessalon Perles) 100 mg capsule Take 1 capsule (100 mg total) by mouth 3 (three) times a day as needed for cough. 20 capsule 04/19/19 25 3:28 PM VAMP LINER 025 Active doxycycline monohydrate (Monodox) 100 mg capsule Take 1 capsule (100 mg total) by mouth 2 (two) times a day. 20 capsule 04/23/19 25 4:19 PM VAMP LINER 025 Active buPROPion (Wellbutrin SR) 150 mg 12 hr tablet Take 1 tablet (150 mg total) by mouth daily for 3 days, THEN 1 tablet (150 mg total) 2 (two) times a day. Start 1 to 2 weeks prior to quit date. 180 tablet 3 04/23/19 25 4:19 PM VAMP LINER 025 2024 Active nicotine (Nicoderm CQ) 21 mg/[address] 1 patch on the skin daily for 28 days 28 patch 05/22/19 25 1:38 PM VAMP LINER 025 Active nicotine (Nicoderm CQ) 14 mg/24 [...] urination. 9 tablet 05/27/19 25 9:42 AM VAMP LINER 025 Active nitrofurantoin monohydrate (Macrobid) 100 mg [...] days. 14 tablet 05/29/19 25 2:56 PM VAMP LINER 025 2024 Active hydrocortisone (Anusol-HC) 25 mg suppository Insert 1 suppository (25 mg total) into the rectum 2 (two) times a day. 10 suppository 025 Active hydrocortisone (Hytone) 2.5 % cream Apply topically 2 (two) times a day for hemorrhoids. 30 g 05/31/19 25 3:56 PM VAMP LINER 025 Active famotidine (PEPCID) 10 mg tablet [...] days. 112 mL 04/26/19 25 2:25 PM VAMP LINER 025 2024 nicotine 21-14-7 mg/24 hr patch, [...] days. 10 tablet 05/22/19 25 1:38 PM VAMP LINER 025 2024 Active Problems Problem Noted Date [...] (12/05/2019): Added automatically from request for surgery [id number] Encounters Date Type Department Care Team Description 05/30/2024 11:19 PM VAMP LINER - 05/31/2024 12:09 AM VAMP LINER Emergency [facility] [address] [place] [phone] Vaughn Lynch APRN, C.N.P., D.N.P. Hemorrhoids (Primary Dx) Discharge Disposition: Home or Self Care 05/28/2024 2:08 PM VAMP LINER - 05/28/2024 3:19 PM VAMP LINER Emergency [facility] [address] [place] [phone] Harshad Lang, Janine.-Edward., P.A. Hemorrhoids (Primary Dx); Acute Cystitis Without Hematuria Discharge Disposition: Home or Self Care 05/28/2024 Clinical Communication Primary Care on Demand at [address] [phone] Su Layton M.D. 05/28/2024 Results Follow-Up Primary Care on Demand at [address] [phone] Su Layton M.D. Urinalysis, with Microscopic: Urine, Midstream, Bacterial Culture, Aerobic + Susceptibility, Urine 05/27/2024 9:24 AM VAMP LINER - 05/27/2024 11:59 PM VAMP LINER Hospital Encounter Department of Laboratory Medicine in [address] [phone] Clarissa Telles M.D. Acute Cystitis Without Hematuria Discharge Disposition: Home or Self Care 05/27/2024 8:15 AM VAMP LINER Telemedicine Primary Care on Demand at [address] [place] [address] Clarissa Telles M.D. Acute Cystitis Without Hematuria (Primary Dx) 05/27/2024 Orders Only Department of Family Medicine, [facility], in [address] [phone] Fam Jackson M.D. Acute Cystitis Without Hematuria (Primary Dx) 04/19/2024 1:00 PM VAMP LINER Telemedicine Primary Care on Demand at [address] [phone] Su Layton M.D. Infection Upper Respiratory (Primary Dx) 04/19/2024 Nurse Triage Department of Family Medicine in [address] [phone] Ethel Salazar, RLashawnN. Upper Respiratory Infection from [...] often do you attend chur ch or oriental orthodox services? More than 4 times per year 11/09/2020 Do you belong to any clubs o r organizations such as protestant groups, unions, fraternal [...] Answer Date Recorded PHQ-2 Score 4 07/13/2020 [facility] - Occupational Stress Questionnaire Answer Date [...] on file Legal Sex Female 9:27 AM VAMP LINER Gender Identity Female 11/17/2019 7:18 AM CDT Sexual Orientation Straight 11/17/2019 7: 18 AM CDT Last Filed Vital Signs Vital Sign Reading Time Taken Comments Blood Pressure 96/46 05/31/2024 12:01 AM VAMP LINER Pulse 89 05/31/2024 12:01 AM VAMP LINER Temperature 36.3 C (97.3 F) 05/30/2024 11:20 PM VAMP LINER Respiratory Rate 18 05/31/2024 12:01 AM VAMP LINER Oxygen Saturation 96% 05/31/2024 12:01 AM VAMP LINER Inhaled Oxygen Concentration - - Weight 76.6 kg (168 lb 14 oz) 05/30/2024 11:29 P M VAMP LINER Height 157.5 cm (5' 2) 12/06/2020 4:44 [...] PROTEIN (CRP), S/P STAT 05/28/2024 2:33 PM VAMP LINER BASIC METABOLIC PANEL, S/P STAT 05/28/2024 2:33 PM VAMP LINER CBC WITH DIFFERENTIAL, B STAT 05/28/2024 2:33 PM VAMP LINER URINALYSIS WITH MICROSCOPIC Routine 05/27/2024 9:35 AM VAMP LINER Acute Cystitis Without Hematuria BACTERIAL CULTURE, AEROBIC + SUSC, URINE Routine 05/27/2024 9:35 AM VAMP LINER Acute Cystitis Without Hematuria THINPREP SCREEN HPV [...] CBC with Differential, Blood (05/28/2024 2:33 PM VAMP LINER) Hemoglobin 12.3 11.6 - 15.0 g/dL 05/28/2024 2:39 PM VAMP LINER CNFL Hematocrit 37.3 35.5 - 44.9 % 05/28/2024 2:39 PM VAMP LINER CNFL Erythrocytes 4.00 3.92 - 5.13 x10(12)/L 05/28/2024 2:39 PM VAMP LINER CNFL MCV 93.3 78.2 - 97.9 fL 05/28/2024 2:39 PM VAMP LINER CNFL RBC Distrib Width 12.4 12.2 - 16.1 % 05/28/2024 2:39 PM VAMP LINER CNFL Platelet Count 245 157 - 371 x10(9)/L 05/28/2024 2:39 PM VAMP LINER CNFL Leukocytes 7.9 3.4 - 9.6 x10(9)/L 05/28/2024 2:39 PM VAMP LINER CNFL Neutrophils 5.99 1.56 - 6.45 x10(9)/L 05/28/2024 2:39 PM VAMP LINER CNFL Lymphocytes 1.10 0.95 - 3.07 x10(9)/L 05/28/2024 2:39 PM VAMP LINER CNFL Monocytes 0.63 0.26 - 0.81 x10(9)/L 05/28/2024 2:39 PM VAMP LINER CNFL Eosinophils 0.13 0.03 - 0.48 x10(9)/L 05/28/2024 2:39 PM VAMP LINER CNFL Basophils <0.04 0.01 - 0.08 x10(9)/L 05/28/2024 2:39 PM VAMP LINER CNFL Blood (Blood, Venous) 05/28/2024 2:33 PM VAMP LINER 05/28/2024 2:35 PM VAMP LINER us Harshad Lang P.A.-C., P.A. LAB BLOOD ADD-ON F inal Result [facility] [address] [place] [address], [facility] in [address] [address] * (ABNORMAL) CRP (C-Reactive Protein) (05/28/2024 2:33 PM VAMP LINER) C-Reactive Protein (CRP), P 39.8(H) <5.0 mg/L 05/28/2024 2:53 PM VAMP LINER CNFL Blood (Blood, Venous) 05/28/2024 2:33 PM VAMP LINER 05/28/2024 2:35 PM VAMP LINER us Harshad Lang P.A.-C., P.A. LAB BLOOD ADD-ON F inal Result [facility] [address] [place] [address], [facility] CNFL [facility] [place] [address] * (ABNORMAL) Basic Metabolic Panel (05/28/2024 2:33 PM VAMP LINER) Potassium, P 3.9 3.6 - 5.2 mmol/L 05/28/2024 2:53 PM VAMP LINER CNFL Sodium, P 135 135 - 145 mmol/L 05/28/2024 2:53 PM VAMP LINER CNFL Chloride, P 104 98 - 107 mmol/L 05/28/2024 2:53 PM VAMP LINER CNFL Bicarbonate, P 24 22 - 29 mmol/L 05/28/2024 2:53 PM VAMP LINER CNFL Anion Gap, P 7 7 - 15 05/28/2024 2:53 PM VAMP LINER CNFL BUN (Blood Urea Nitrogen), P 9 6 - 21 mg/dL 05/28/2024 2:53 PM VAMP LINER CNFL Creatinine 0.82 0.59 - 1.04 mg/dL 05/28/2024 2:53 PM VAMP LINER CNFL Estimated GFR (eGFR) >90 >=60 mL/min/BSA 05/28/2024 2:53 PM VAMP LINER CNFL Comment: Estimated GFR calculated using the 2020 CKD_EPI creatinine equation. Calcium, Total, P 8.0(L) 8.6 - 10.0 mg/dL 05/28/2024 2:53 PM VAMP LINER CNFL Glucose, P 106 70 - 140 mg/dL 05/28/2024 2:53 PM VAMP LINER CNFL Blood (Blood, Venous) 05/28/2024 2:33 PM VAMP LINER 05/28/2024 2:35 PM VAMP LINER us Harshad Lang P.A.-C., P.A. LAB BLOOD ADD-ON F inal Result [facility] [address] [place] [address], [facility] CN[facility] in [address] [address] * (ABNORMAL) Bacterial Culture, Aerobic + Susceptibility, Urine (05/27/2024 9:35 AM VAMP LINER) Urine Culture Urogenital microbiota, susceptibilities not performed per laboratory criteria. (A) 2024 8:07 AM VAMP LINER ECLR Urine (Urine, Midstream) 05/27/2024 9:35 AM VAMP LINER 05/27/2024 2:34 PM VAMP LINER Comment:Specimen Source Site : Urine us Clarissa Telles M.D. LAB MICROBIOLOGY - GENERAL ORD ERABLES Final Result Performing Organization Address City/[facility]/ZIP Co de Phone Number [facility] [address] [place] [address], [facility] ECLR [facility] [place] [address] * (ABNORMAL) Urinalysis, with Microscopic: Urine, Midstream (05/27/2024 9:35 AM VAMP LINER) Source Urine, Urine, Midstream 05/27/2024 9:35 AM VAMP LINER CNFL Clarity Clear Clear 05/27/2024 9:39 AM VAMP LINER CNFL Color Yellow 05/27/2024 9:39 AM VAMP LINER CNFL Comment: ----REFERENCE VALUE---- Colorless Yellow Aubrie Blood Negative Negative 05/27/2024 9:39 AM VAMP LINER CNFL Nitrite Negative Negative 05/27/2024 9:39 AM VAMP LINER CNFL Leukocyte Esterase Trace(A) Negative 05/27/2024 9:39 AM VAMP LINER CNFL Protein Negative mg/dL 05/27/2024 9:39 AM VAMP LINER CNFL Comment: ----REFERENCE VALUE---- Negative Trace Glucose Negative Negative mg/dL 05/27/2024 9:39 AM VAMP LINER CNFL Ketones, QI(U) Negative Negative mg/dL 05/27/2024 9:39 AM VAMP LINER CNFL Bilirubin Negative Negative 05/27/2024 9:39 AM VAMP LINER CNFL pH 5.5 5.0 - 8.0 05/27/2024 9:39 AM VAMP LINER CNFL Specific Eleva >=1.030 1.001 - 1.035 05/27/2024 9:39 AM VAMP LINER CNFL Urobilinogen 0.2 0.2 - 1.0 mg/dL 05/27/2024 9:39 AM VAMP LINER CNFL White Blood Cells 11-20(A) /hpf 05/27/2024 9:52 AM VAMP LINER CNFL Comment: ----REFERENCE VALUE---- Males: 0-3 Females: 0-10 Unknown: 0-10 Red Blood Cells 3-10(A) 0 - 2 /hpf 9:52 AM VAMP LINER CNFL Dysmorphic Red Blood Cells <=25 <=25 % 05/27/2024 9:52 AM VAMP LINER CNFL Mucus Present /hpf 05/27/2024 9:52 AM VAMP LINER CNFL Squamous Cells Occ-3 /hpf 05/27/2024 9:52 AM VAMP LINER CNFL Bacteria Present(A) None Seen 05/27/2024 9:52 AM VAMP LINER CNFL Urine (Urine, Midstream) 05/27/2024 9:35 AM VAMP LINER 05/27/2024 9:35 AM VAMP LINER us Clarissa Telles M.D. LAB URINE ORDERABLES Final Res ult [facility] [address] [place] [address], [facility] CNFL [facility] in [address] [address] * ThinPrep Screen HPV Reflex (07/08/2020 11:15 [...] LAB PAP PATHDX ORDERABLES F inal Result [facility] [address] [place] [address], [facility] ECLR [facility] [place] [address] * HIV-1/-2 Ag and Ab Screen, Plasma [...] MICROBIOLOGY - BLOOD OR DERABLES Final Result [facility] [address] [place] [address], [facility] E[facility]R [facility] [place] [address] * (ABNORMAL) Lipid Panel (07/08/2020 11:08 AM CDT) [facility] Cholesterol, Total 233(H) mg/dL 2020 11:42 AM [...] M.D. LAB BLOOD ADD-ON Final Resu lt [facility] [address] [place] [address], [facility] in [address] [address] * HCV Ab Scrn w/Reflex to HCV PCR, Serum (07/08/2020 11:08 AM CDT) HCV Ab Screen, S Negative Negative 07/10/19 1:09 AM CDT ECLR Comment: Biotin has been identified by the explosive specialist as a potential interfering substance. Higher concentrations of biotin may be found in multivitamins, hair/nail supplements, and workout supplements. If the result does not match clinical observations, repeat testing after patient refrains from the use of supplements for at least 12 hours. Blood (Blood, Venous) 07/08/2020 11:08 AM CDT 07/08/2020 9:15 PM CDT Narrative [facility] - 07/09/2020 1:09 AM CDT Specimen Information: Specimen ID: [id number] Specimen Type: Blood Specimen Collection Start Date: 07/08/2020 11:08 AM Specimen Received Date: 07/08/2020 9:15 PM Specimen ID: [id number] Specimen Type: Blood Specimen Collection Start Date: 07/08/2020 11:08 AM Specimen Received Date: 07/08/2020 9:14 PM us Selena Cordoba M.D. LAB MICROBIOLOGY - BLOOD OR DERABLES Final Result [facility] [address] [place] [address], [place] ECLR [facility] in [place] [address] [place] [phone] from Last 3 Months or Most Recently Relevant to Health Maintenance Insurance [facility] [address] [id number] Care Teams Press Setup Operator Relationship Specialty Start Date End Date Elsewhere, Pcp PCP - General Internal Medicine 08/31/21
--- OUTSIDE RECORDS SUMMARY | 2024-06-02 08:49 | XMS_ITS | Encounter Summary ---
Author Organization [facility] Address [address] [place] [address] Care Team Providers Care Chief Librarian Extension Department Name Role Phone Elsewhere, Pcp Primary Care Provider Unavailabl e Encounter Details Date Type Department Care Team (Late st Contact Info) Description 05/28/2024 Results Follow-Up Primary Care on Demand at [facility] [address] [facility] [place] [address] Su Layton M.D. [address] [facility] [place] [address] Urinalysis, with Microscopic: Urine, Midstream, [...] Answer Date Recorded PHQ-2 Score 4 07/13/2020 [facility] Answer Date [...] or slept in a long-term (including now)? No 11/09/2020 Depression Answer Date [...] on file Legal Sex Female 9:27 AM MEDICAL ASSISTING PROGRAM DIRECTOR Gender Identity Female 11/17/2019 7:18 AM CDT Sexual Orientation Straight 11/17/2019 7: 18 AM CDT documented as of this encounter Plan of Treatment Not on file documented as of this encounter Visit Diagnoses Not on filedocumented in this encounter Additional Health Concerns Assessment Noted Time PHQ-9 Depression Total Score: 17 021 3:09 PM CDT documented as of this encounter Care Teams Chief Librarian Extension Department Relationship Specialty Start Date End Date Elsewhere, Pcp PCP - General Internal Medicine 08/31/21 documented as of this encounter
--- OUTSIDE RECORDS SUMMARY | 2024-06-02 08:49 | XMS_ITS | Encounter Summary ---
Author Organization [facility] Address [address] [place] [address] Care Team Providers Care Bank Appraiser Name Role Phone Elsewhere, Pcp Primary Care [...] st Contact Info) Description 05/30/2024 11:19 PM COMBINING MACHINE OPERATOR - 05/31/2024 12:09 AM [facility] Emergency [facility] [address] [place] [phone] Vaughn Lynch, LO, C.N.P., D.N.P. [address] [place] [address] Hemorrhoids (Primary Dx) Discharge Disposition: Home [...] week 11/09/2020 How often do you attend [facility] or hoahaoism services? More than 4 times per year 11/09/2020 Do you belong to any clubs o r organizations such as methodist groups, unions, fraternal [...] Answer Date Recorded PHQ-2 Score 4 07/13/2020 [facility] - [...] or slept in a fdc (including now)? No 11/09/2020 Depression Answer Date [...] on file Legal Sex Female 9:27 AM COMBINING MACHINE OPERATOR Gender Identity Female 11/17/2019 7:18 AM CDT Sexual Orientation Straight 11/17/2019 7: 18 AM CDT documented as of this encounter Last Filed Vital Signs Vital Sign Reading Time Taken Comments Blood Pressure 96/46 05/31/2024 12:01 AM COMBINING MACHINE OPERATOR Pulse 89 05/31/2024 12:01 AM COMBINING MACHINE OPERATOR Temperature 36.3 C (97.3 F) 05/30/2024 11:20 PM COMBINING MACHINE OPERATOR Respiratory Rate 18 05/31/2024 12:01 AM COMBINING MACHINE OPERATOR Oxygen Saturation 96% 05/31/2024 12:01 AM COMBINING MACHINE OPERATOR Inhaled Oxygen Concentration - - Weight 76.6 kg (168 lb 14 oz) 05/30/2024 11:29 P M COMBINING MACHINE OPERATOR Height - - Body Mass Index 30.89 12/06/2020 4:44 PM CDT documented in this encounter Discharge Instructions * Discharge Instructions* Vaughn Lynch APRN, C.N.P., D.N.P. - 05/30/2024 11:59 PM COMBINING MACHINE OPERATOR To use it is baths 3 times [...] did prescribe some Percocet for severe pain. INING MACHINE OPERATOR documented in this encounter Medications at Time of Discharge acetaminophen (TYLENOL) 500 mg tablet Take 2 tablets (1,000 mg total) by mouth every 6 (six) hours as needed for Pain. 100 tablet 06/24/2022 2:00 PM COMBINING MACHINE OPERATOR 3 albuterol 90 mcg/actuation inhaler Inhale 2 puffs every 4 to 6 hours as needed for wheezing or shortness of breath. 18 g 1 02/02/2024 10:10 AM CDT 4 azelastine (ASTELIN) 137 mcg/spray (0.1 %) nasal spray Administer 1-2 sprays into each nostril 2 (two) times a day. Use in each nostril as directed 90 mL 1 04/21/2022 10:49 AM COMBINING MACHINE OPERATOR 2 azelastine (ASTELIN) 137 mcg/spray (0.1 %) nasal spray Administer 1-2 sprays into each nostril 2 (two) times a day. 30 mL 1 07/25/2023 3:58 PM CDT 4 benzonatate (Tessalon Perles) 100 mg capsule Take 1 capsule (100 mg total) by mouth 3 (three) times a day as needed for cough. 20 capsule 04/19/2024 3:28 PM COMBINING MACHINE OPERATOR 5 buPROPion (Wellbutrin SR) 150 mg 12 hr tablet Take 1 tablet (150 mg total) by mouth daily for 3 days, THEN 1 tablet (150 mg total) 2 (two) times a day. Start 1 to 2 weeks prior to quit date. 180 tablet 3 04/23/2024 4:19 PM COMBINING MACHINE OPERATOR 5 10/24/19 25 cetirizine (ZyrTEC) 10 mg tablet Take 1 tablet (10 mg total) by mouth daily as needed. 90 tablet 3 05/31/2024 3:56 PM COMBINING MACHINE OPERATOR 4 cholecalciferol, vitamin D3, (cholecalciferol) 25 mcg [...] a day. 20 capsule 04/23/2024 4:19 PM COMBINING MACHINE OPERATOR 5 fluticasone propionate (Flonase) 50 mcg/actuation nasal spray Administer 1-2 sprays into each nostril daily. 48 g 3 02/20/2024 3:44 PM COMBINING MACHINE OPERATOR 4 guaiFENesin (MUCINEX) 600 mg 12 hr [...] for Pain 60 tablet 06/24/2022 2:00 PM COMBINING MACHINE OPERATOR 3 ketorolac (TORADOL) 10 mg tablet Take [...] daily. 120 tablet 2 03/29/2024 4:39 PM COMBINING MACHINE OPERATOR 4 nicotine (Nicoderm CQ) 14 mg/[address] 1 patch on the skin daily for 14 days. 14 patch 5 nicotine (Nicoderm CQ) 21 mg/[address] 1 patch on the skin daily for 28 days 28 patch 05/22/2024 1:38 PM COMBINING MACHINE OPERATOR 5 nicotine (Nicoderm CQ) 7 mg/24 hr [...] nausea/vomiting. 15 tablet 6 2024 2:56 PM COMBINING MACHINE OPERATOR 4 ondansetron ODT (Zofran-ODT) 4 mg disintegrating tablet Dissolve 1 tablet (4 mg total) in the mouth every 6 to 8 hours as needed for nausea or vomiting. 30 tablet 6 05/15/2024 3:37 PM COMBINING MACHINE OPERATOR 4 ondansetron ODT (Zofran-ODT) 8 mg disintegrating tablet Dissolve one-half tablet (4 mg total) in the mouth 2 (two) times a day as needed for nausea or vomiting. 15 tablet 6 05/01/2024 3:27 PM COMBINING MACHINE OPERATOR 4 oxyCODONE (ROXICODONE) 5 mg immediate release [...] painful urination. 9 tablet 05/27/2024 9:42 AM COMBINING MACHINE OPERATOR 5 phentermine 15 mg capsule Take 1 [...] by mouth daily. 90 capsule 3 phenylephrine-pramo gazo-sbvuamtc-xksle petrolatum (Preparation H Maximum Strength) 0.25-1 % [...] 7 days. 14 tablet 2024 2:56 PM COMBINING MACHINE OPERATOR 5 06/05/19 25 tamsulosin (FLOMAX) 0.4 mg 24 hr capsule Take 1 capsule (0.4 mg) orally daily to prevent bladder spasm 7 capsule 06/27/2022 10:18 AM CDT 3 topiramate (Topamax) 100 mg tablet Take 1 tablet (100 mg total) by mouth daily. Take 100 mg in addition to the 25 mg. 90 tablet 3 04/26/2024 2:25 PM COMBINING MACHINE OPERATOR 4 topiramate (Topamax) 25 mg tablet Take 1 tablet (25 mg total) by mouth daily with 100 mg tablet for a total daily dose of 125 mg. 90 tablet 3 04/26/2024 2:25 PM COMBINING MACHINE OPERATOR 4 varenicline (Chantix Continuing Month Box) 1 [...] as discussed. 53 tablet 03/22/2023 12:20 PM COMBINING MACHINE OPERATOR 3 documented as of this encounter ED [...] symptoms have improved. History provided by: Patient prop and effects designer needed/used: no REVIEW OF SYSTEMS Constitutional: Negative [...] respiratory distress. Genitourinary: Genitourinary Comments: Janneth LUBIN PBX MANAGER student did the rectal exam, noticed large [...] ED COURSE ED Course as of 05/31/247 [facility] May 30, 2024 2350 I performed [...] week as needed. Vaughn Lynch DNP, LO, CIRCULATING NURSE-C, AGACNP-BC, ENP-C Emergency Medicine [1] Past Medical [...] brostrom repair; Surgeon: Alexsander Marshall M.D.; Location: [facility] OR TONSILLECTOMY AND ADENOIDECTOMY N/A 04/17/1994 Tonsillectomy with adenoidectomy TOTAL HYSTERECTOMY Vaughn Lynch APRN, C.N.P., D.N.P. 05/31/24 0009 INING MACHINE OPERATOR documented in this encounter Plan [...] additional analgesic benefit. Given 05/31/2024 12:02 AM COMBINING MACHINE OPERATOR 15 mg Right Vastus Lateralis documented in this encounter Active and Recently Administered Medications Times are shown in COMBINING MACHINE OPERATOR. Scheduled Medication Order 2024 05/30/2024 05/31/2024 ketorolac [...] documented as of this encounter Care Teams Bank Appraiser Relationship Specialty Start Date End Date Elsewhere, Pcp PCP - General Internal Medicine 08/31/21 documented as of this encounter
--- OUTSIDE RECORDS SUMMARY | 2024-06-02 08:49 | XMS_ITS | Clinical Summary ---
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 Gender Identity Not on file Sexual Orientation [...] Procedure Name Priority Date/Time Associated Diagnosis Comments AUDIT PARTNER THIN PREP PAP SCREEN IMAGED Routine 11/19/2021 11:34 AM CDT from Last 3 Months or Most Recently Relevant to Health Maintenance Results * AUDIT PARTNER THIN PREP PAP SCREEN IMAGED (11/19/2021 11:34 AM CDT) Case Report Gynecologic Cytology Report Case: [id number] Authorizing Provider: Alia Roberts NP Collected: 11/19/2021 1134 Ordering Location: [facility] Received: 11/22/2021 1537 First Screen: Rafael Kurtz Specimen: AUDIT PARTNER ThinPrep Vial Screening, Cervical/Vaginal 12/06/2021 10:34 AM [facility]T [facility] INTERPRETATION/ RESULT NEGATIVE FOR INTRAEPITHELIAL LESION OR MALIGNANCY (NIL) (none) 12/06/2021 10:34 AM CDT [facility]-C ENTRAL LABORATORY IMEN ADEQUACY Satisfactory for evaluation No endocervical component seen 12/06/2021 10:34 AM CDT [facility] ENTRAL LABORATORY HPV REQUEST HPV not requested 2021 10:34 AM CDT [facility] EN[facility] LABORATORY Additional Information 12/06/2021 10:34 AM CDT [facility]-C ENTRAL LABORATORY Comment: Interpreted at [facility] [employer] [facility], Central Laboratory - [address], [place] [address] Automated Review Successful 12/06/2021 10:34 AM CDT [facility]-C ENTRAL LABORATORY Comment:Specimen processed s uccessfully by automated scalping machine operator device, ThinPrep Imaging System, [employer] Note The pap test is a [...] and malignant lesions. 12/06/2021 10:34 AM CDT [facility] LABORATORY-C ENTRAL LABORATORY Other (Cervical/Vagina l) 11/19/2021 11:34 AM CDT 11/22/2021 3:37 PM CDT us Alia Roberts NP PATHOLOGY/CYTOLOGY Final R esult [facility] LABORATORY-CENTRAL LABORATORY [address] [place] [address], [place] from Last 3 Months or Most Recently Relevant to Health Maintenance Care Teams System Support Technician Relationship Specialty Start Date End Date Unknown, Doctor . PCP - General Emergency Medicine 04/08/11
--- OUTSIDE RECORDS SUMMARY | 2024-06-02 08:49 | XMS_ITS | Encounter Summary ---
Author Organization [facility] Address [address] [place] [address] Care Team Providers Care Sound System Installer Name Role Phone Elsewhere, Pcp Primary Care Provider Unavailabl e Reason for Visit * Reason Comments Upper Respiratory Infection Encounter Details Date Type Department Care Team (Late st Contact Info) Description 04/19/2024 1:00 PM FACILITIES ADMINISTRATOR Telemedicine Primary Care on Demand at [facility] [address] [facility] [place] [address] Su Layton M.D. [address] [facility] [place] [place] [address] Infection Upper Respiratory (Primary Dx) [...] How often do you attend chur or rastafarian services? More than 4 times per year 11/09/2020 Do you belong to any clubs o r organizations such as moravian groups, unions, fraternal [...] Answer Date Recorded PHQ-2 Score 4 07/13/2020 [facility] - Occupational [...] or slept in a usp (including now)? No 11/09/2020 Depression Answer Date [...] on file Legal Sex Female 9:27 AM FACILITIES ADMINISTRATOR Gender Identity Female 11/17/2019 7:18 AM CDT [...] capsule by mouth daily. 90 capsule 0 olbxaxuexhowq-glhkiqctz-lqowicah-white petrolatum (Preparation H Maximum Strength) 0.25-1 % [...] C Screening Completed IPV Vaccines Aged Out LITIES ADMINISTRATOR documented in this encounter Plan of Treatment Not on file documented as of this encounter Visit Diagnoses Diagnosis Infection Upper Respiratory- Primary documented in this encounter Additional Health Concerns Assessment Noted Time PHQ-9 Depression Total Score: 17 021 3:09 PM CDT documented as of this encounter Care Teams Sound System Installer Relationship Specialty Start Date End Date Elsewhere, Pcp PCP - General Internal Medicine 08/31/21 documented as of this encounter
--- OUTSIDE RECORDS SUMMARY | 2024-06-02 08:49 | XMS_ITS | Encounter Summary ---
Author Organization [facility] Address [address] [place] [address] Care Team Providers Care Clinical Research Scientist Name Role Phone Elsewhere, Pcp Primary Care Provider Unavailabl e Encounter Details Date Type Department Care Team (Latest Contact Info) Description 05/27/2024 9:24 AM STONE SETTER APPRENTICE - 05/27/2024 11:59 PM STONE SETTER APPRENTICE Hospital Encounter Department of Laboratory Medicine in [address] [phone] Clarissa Telles M.D. [address] [place] [phone] Acute Cystitis Without Hematuria Discharge Disposition: [...] How often do you attend chur or taoist services? More than 4 times per year 11/09/2020 Do you belong to any clubs o r organizations such as presybeterian groups, unions, fraternal [...] or slept in a longterm (including now)? No 11/09/2020 Depression Answer Date [...] on file Legal Sex Female 9:27 AM STONE SETTER APPRENTICE Gender Identity Female 11/17/2019 7:18 AM CDT Sexual Orientation Straight 11/17/2019 7: 18 AM CDT documented as of this encounter Medications at Time of Discharge acetaminophen (TYLENOL) 500 mg tablet Take 2 tablets (1,000 mg total) by mouth every 6 (six) hours as needed for Pain. 100 tablet 06/24/2022 2:00 PM STONE SETTER APPRENTICE albuterol 90 mcg/actuation inhaler Inhale 2 puffs every 4 to 6 hours as needed for wheezing or shortness of breath. 18 g 1 02/02/2024 10:10 AM CDT 4 azelastine (ASTELIN) 137 mcg/spray (0.1 %) nasal spray Administer 1-2 sprays into each nostril 2 (two) times a day. Use in each nostril as directed 90 mL 1 04/21/2022 10:49 AM STONE SETTER APPRENTICE 2 azelastine (ASTELIN) 137 mcg/spray (0.1 %) nasal spray Administer 1-2 sprays into each nostril 2 (two) times a day. 30 mL 1 07/25/2023 3:58 PM CDT 4 benzonatate (Tessalon Perles) 100 mg capsule Take 1 capsule (100 mg total) by mouth 3 (three) times a day as needed for cough. 20 capsule 04/19/2024 3:28 PM STONE SETTER APPRENTICE 5 buPROPion (Wellbutrin SR) 150 mg 12 hr tablet Take 1 tablet (150 mg total) by mouth daily for 3 days, THEN 1 tablet (150 mg total) 2 (two) times a day. Start 1 to 2 weeks prior to quit date. 180 tablet 3 04/23/2024 4:19 PM STONE SETTER APPRENTICE 5 10/24/19 25 cetirizine (ZyrTEC) 10 mg tablet Take 1 tablet (10 mg total) by mouth daily as needed. 90 tablet 3 05/31/2024 3:56 PM STONE SETTER APPRENTICE 4 cholecalciferol, vitamin D3, (cholecalciferol) 25 mcg [...] a day. 20 capsule 04/23/2024 4:19 PM STONE SETTER APPRENTICE 5 fluticasone propionate (Flonase) 50 mcg/actuation nasal spray Administer 1-2 sprays into each nostril daily. 48 g 3 02/20/2024 3:44 PM STONE SETTER APPRENTICE 4 guaiFENesin (MUCINEX) 600 mg 12 hr [...] for Pain 60 tablet 06/24/2022 2:00 PM STONE SETTER APPRENTICE 3 ketorolac (TORADOL) 10 mg tablet Take [...] daily. 120 tablet 2 03/29/2024 4:39 PM STONE SETTER APPRENTICE 4 nicotine (Nicoderm CQ) 14 mg/[address] 1 patch on the skin daily for 14 days. 14 patch 5 nicotine (Nicoderm CQ) 21 mg/[address] 1 patch on the skin daily for 28 days 28 patch 05/22/2024 1:38 PM STONE SETTER APPRENTICE 5 nicotine (Nicoderm CQ) 7 mg/24 hr [...] nausea/vomiting. 15 tablet 6 2024 2:56 PM STONE SETTER APPRENTICE 4 ondansetron ODT (Zofran-ODT) 4 mg disintegrating tablet Dissolve 1 tablet (4 mg total) in the mouth every 6 to 8 hours as needed for nausea or vomiting. 30 tablet 6 05/15/2024 3:37 PM STONE SETTER APPRENTICE 4 ondansetron ODT (Zofran-ODT) 8 mg disintegrating tablet Dissolve one-half tablet (4 mg total) in the mouth 2 (two) times a day as needed for nausea or vomiting. 15 tablet 6 05/01/2024 3:27 PM STONE SETTER APPRENTICE 4 oxyCODONE (ROXICODONE) 5 mg immediate release [...] painful urination. 9 tablet 05/27/2024 9:42 AM STONE SETTER APPRENTICE 5 phentermine 15 mg capsule Take 1 [...] by mouth daily. 90 capsule 3 phenylephrine-pramo wgnl-jkpwcuru-bnatr petrolatum (Preparation H Maximum Strength) 0.25-1 % [...] mg. 90 tablet 3 04/26/2024 2:25 PM STONE SETTER APPRENTICE 4 topiramate (Topamax) 25 mg tablet Take 1 tablet (25 mg total) by mouth daily with 100 mg tablet for a total daily dose of 125 mg. 90 tablet 3 04/26/2024 2:25 PM STONE SETTER APPRENTICE 4 varenicline (Chantix Continuing Month Box) 1 [...] as discussed. 53 tablet 03/22/2023 12:20 PM STONE SETTER APPRENTICE 3 documented as of this encounter Plan of Treatment Not on file documented as of this encounter Procedures Procedure Name Priority Date/Time Associated Diagnosis Comments BACTERIAL CULTURE, AEROBIC + SUSC, URINE Routine 05/27/2024 9:35 AM STONE SETTER APPRENTICE Acute Cystitis Without Hematuria URINALYSIS WITH MICROSCOPIC Routine 05/27/2024 9:35 AM STONE SETTER APPRENTICE Acute Cystitis Without Hematuria documented in this encounter Results * (ABNORMAL) Bacterial Culture, Aerobic + Susceptibility, Urine (05/27/2024 9:35 AM STONE SETTER APPRENTICE) Urine Culture Urogenital microbiota, susceptibilities not performed per laboratory criteria. (A) 2024 8:07 AM STONE SETTER APPRENTICE ECLR Urine (Urine, Midstream) 05/27/2024 9:35 AM STONE SETTER APPRENTICE 05/27/2024 2:34 PM STONE SETTER APPRENTICE Comment:Specimen Source Site : Urine us Clarissa Telles M.D. LAB MICROBIOLOGY - GENERAL ORD ERABLES Final Result [facility] [address] [place] [phone], [facility] ECLR [facility] in [address] [address] * (ABNORMAL) Urinalysis, with Microscopic: Urine, Midstream (05/27/2024 9:35 AM STONE SETTER APPRENTICE) Source Urine, Urine, Midstream 05/27/2024 9:35 AM STONE SETTER APPRENTICE CNFL Clarity Clear Clear 05/27/2024 9:39 AM STONE SETTER APPRENTICE CNFL Color Yellow 05/27/2024 9:39 AM STONE SETTER APPRENTICE CNFL Comment: ----REFERENCE VALUE---- Colorless Yellow Aubrie Blood Negative Negative 05/27/2024 9:39 AM STONE SETTER APPRENTICE CNFL Nitrite Negative Negative 05/27/2024 9:39 AM STONE SETTER APPRENTICE CNFL Leukocyte Esterase Trace(A) Negative 05/27/2024 9:39 AM STONE SETTER APPRENTICE CNFL Protein Negative mg/dL 05/27/2024 9:39 AM STONE SETTER APPRENTICE CNFL Comment: ----REFERENCE VALUE---- Negative Trace Glucose Negative Negative mg/dL 05/27/2024 9:39 AM STONE SETTER APPRENTICE CNFL Ketones, QI(U) Negative Negative mg/dL 05/27/2024 9:39 AM STONE SETTER APPRENTICE CNFL Bilirubin Negative Negative 05/27/2024 9:39 AM STONE SETTER APPRENTICE CNFL pH 5.5 5.0 - 8.0 05/27/2024 9:39 AM STONE SETTER APPRENTICE CNFL Specific Higginson >=1.030 1.001 - 1.035 05/27/2024 9:39 AM STONE SETTER APPRENTICE CNFL Urobilinogen 0.2 0.2 - 1.0 mg/dL 05/27/2024 9:39 AM STONE SETTER APPRENTICE CNFL White Blood Cells 11-20(A) /hpf 05/27/2024 9:52 AM STONE SETTER APPRENTICE CNFL Comment: ----REFERENCE VALUE---- Males: 0-3 Females: 0-10 Unknown: 0-10 Red Blood Cells 3-10(A) 0 - 2 /hpf 9:52 AM STONE SETTER APPRENTICE CNFL Dysmorphic Red Blood Cells <=25 <=25 % 05/27/2024 9:52 AM STONE SETTER APPRENTICE CNFL Mucus Present /hpf 05/27/2024 9:52 AM STONE SETTER APPRENTICE CNFL Squamous Cells Occ-3 /hpf 05/27/2024 9:52 AM STONE SETTER APPRENTICE CNFL Bacteria Present(A) None Seen 05/27/2024 9:52 AM STONE SETTER APPRENTICE CNFL Urine (Urine, Midstream) 05/27/2024 9:35 AM STONE SETTER APPRENTICE 05/27/2024 9:35 AM STONE SETTER APPRENTICE us Clarissa Telles M.D. LAB URINE ORDERABLES Final Res ult Performing Organization Address City/State/[facility] Co de Phone Number [facility] [address] [place] [phone], [facility] CNFL [facility] in [address] [address] documented in this encounter Visit Diagnoses Diagnosis Acute Cystitis Without Hematuria documented in this encounter Additional Health Concerns Assessment Noted Time PHQ-9 Depression Total Score: 17 021 3:09 PM CDT documented as of this encounter Care Teams Clinical Research Scientist Relationship Specialty Start Date End Date Elsewhere, Pcp PCP - General Internal Medicine 08/31/21 documented as of this encounter
--- OUTSIDE RECORDS SUMMARY | 2024-06-02 08:49 | XMS_ITS | Encounter Summary ---
Author Organization [facility] Address [address] [place] [address] Care Team Providers Care Spa Coordinator Name Role Phone Elsewhere, Pcp Primary Care Provider Unavailabl e Reason for Visit * Reason Onset Date Comments Upper Respiratory Infection 04/19/2024 Encounter Details Date Type Department Care Team (Late st Contact Info) Description 04/19/2024 Nurse Triage Department of Family Medicine in [place], [place] [address] [place] [phone] Ethel Salazar, RLashawnNLashawn [address] [place] [phone] Upper Respiratory Infection Social History Tobacco Use [...] How often do you attend chur or mandaeism services? More than 4 times per year 11/09/2020 Do you belong to any clubs o r organizations such as samaritan groups, unions, fraternal [...] Answer Date Recorded PHQ-2 Score 4 07/13/2020 [facility] - Occupational [...] on file Legal Sex Female 9:27 AM STATIC BALANCER Gender Identity Female 11/17/2019 7:18 AM CDT Sexual Orientation Straight 11/17/2019 7: 18 AM CDT documented as of this encounter Miscellaneous Notes * Telephone Encounter - Ethel Salazar R.N. - 04/19/2024 7:47 AM STATIC BALANCER Chief Complaint / Reason for Call Patient is a 43 y.o. female calling regarding Upper Respiratory Infection. Assessment Concern: Cough. Green nasal discharge. Sinus pain and pressure. Present for: About a week Home cares tried: Mucinex. Sudafed Calling to request: Appointment The recommended disposition is Home Care. Patient was warm transferred to, a associate merchant, Patient Appointment Medical Billing Representative at the clinic for further assistance. Reason for Disposition Cough Protocols used: Cough - Acute Xuxvrepole-Lkivz-QR Care Advice Patient/Caregiver understands and will follow care advice?: Yes, able to teach back Cough - Acute Bmgofayniy-Hpapk-GS Nurse Ethel Casiano Apr 19, 2024 07:52 AM Care Advice COUGH MEDICINES: * COUGH DROPS: Ckzg-rer-porjujn cough drops can help a lot, especially for mild coughs. They soothean irritated throat and remove the tickle sensation in the back of the throat. Cough drops are easyto carry with you. * COUGH SYRUP WITH DEXTROMETHORPHAN: An omlt-eer-qxvpdiz cough syrup can help your cough. The most common cough suppressant in tekj-hhs-othmmyb cough medicines is dextromethorphan. * HOME REMEDY - HARD CANDY: Hard candy works just as well as qndt-czp-osnvgka cough drops. People who have diabetes should [...] use a saline nasal spray bottle (available fkji-fph-yhxupqm), a rubber ear syringe, a medical syringe without the needle, or a NETI POT. NASAL WASHES - LOQU-CA-XFVZ INSTRUCTIONS: * STEP 1: Lean over a [...] a nasal spray. * Pseudoephedrine (Sudafed): Available ioch-nhf-vwdzatr in pill form. Typical adult dosage is two 30 mg tablets every 6 hours. * Oxymetazoline Nasal Drops (Afrin in [place] Drixoral in [place]): Available gmmp-evu-hevirhk. Clean out the nose before using. Calypso each nostril once, wait one minute for absorption, and then spray a second time. * Phenylephrine Nasal Drops (Aron-Synephrine): Available bnnd-qnz-uqmjtdi. Clean out the nose beforeusing. Calypso each nostril once, wait one minute for absorption, and then spray a second time. IC BALANCER documented in this encounter Plan of Treatment Not on file documented as of this encounter Visit Diagnoses Not on filedocumented in this encounter Additional Health Concerns Assessment Noted Time PHQ-9 Depression Total Score: 17 07/13/ 021 3:09 PM CDT documented as of this encounter Care Teams Spa Coordinator Relationship Specialty Start Date End Date Elsewhere, Pcp PCP - General Internal Medicine 08/31/21 documented as of this encounter
--- OUTSIDE RECORDS SUMMARY | 2024-06-02 08:49 | XMS_ITS | Encounter Summary ---
Author Organization [facility] Address [address] [place] [address] Care Team Providers Care Operations Research Manager Name Role Phone Elsewhere, Pcp Primary Care Provider Unavailabl e Encounter Details Date Type Department Care Team (Late st Contact Info) Description 05/27/2024 Orders Only Department of Family Medicine, [facility], in [address] [phone] Fam Jackson M.D. [address] [place] [phone] Acute Cystitis Without Hematuria (Primary Dx) Social [...] How often do you attend chur or advent services? More than 4 times per year [...] Answer Date Recorded PHQ-2 Score 4 07/13/2020 [facility] - Occupational Stress Questionnaire Answer [...] or slept in a jail (including now)? No 11/09/2020 Depression Answer Date [...] on file Legal Sex Female 9:27 AM CAREER CONSULTANT Gender Identity Female 11/17/2019 7:18 AM [...] documented as of this encounter Care Teams Operations Research Manager Relationship Specialty Start Date End Date Elsewhere, Pcp PCP - General Internal Medicine 08/31/21 documented as of this encounter
--- OUTSIDE RECORDS SUMMARY | 2024-06-02 08:49 | XMS_ITS | Encounter Summary ---
[facility] Organization [facility] Address [address] [place] [address] Care Team Providers Care Armed Security Officer Name Role Phone Elsewhere, Pcp Primary Care Provider Unavailabl e Reason for Visit * Reason Comments Abdominal Pain Painful Urination Encounter Details Date Type Department Care Team (Late st Contact Info) Description 05/28/2024 2:08 PM GARMENT FOLDER - 05/28/2024 3:19 PM GARMENT FOLDER Emergency [facility] [address] [place] [phone] Harshad Lang, P.A.-C., P.A. [address] [place] [phone] Hemorrhoids (Primary Dx); Acute Cystitis Without Hematuria [...] often do you attend chur ch or buddhism services? More than 4 times per year 11/09/2020 Do you belong to any clubs o r organizations such as latter day groups, unions, [...] Answer Date Recorded PHQ-2 Score 4 07/13/2020 [facility] of Occupat ional Health - Occupational Stress [...] slept in a skilled nursing (including now)? No 11/09/2020 Depression Answer Date [...] on file Legal Sex Female 9:27 AM GARMENT FOLDER Gender Identity Female 11/17/2019 7:18 AM CDT Sexual Orientation Straight 11/17/2019 7: 18 AM CDT documented as of this encounter Last Filed Vital Signs Vital Sign Reading Time Taken Comments Blood Pressure 122/83 05/28/2024 3:16 PM GARMENT FOLDER Pulse 92 05/28/2024 3:16 PM GARMENT FOLDER Temperature 36.2 C (97.2 F) 05/28/2024 3:16 PM GARMENT FOLDER Respiratory Rate 18 05/28/2024 3:16 PM GARMENT FOLDER Oxygen Saturation 100% 05/28/2024 3:16 PM GARMENT FOLDER Inhaled Oxygen Concentration - - Weight 75 kg (165 lb 5.5 oz) 05/28/2024 2:07 PM GARMENT FOLDER Height - - Body Mass Index 30.24 12/06/2020 4:44 PM CDT documented in this encounter Discharge Instructions * Discharge Instructions* Harshad Lang P.A.-C., P.A. - 05/28/2024 3:07 PM GARMENT FOLDER Use the Sitz bath which is a product that you can buy at the store. Try to push the hemorrhoid backin. Schedule an appointment with colorectal as soon as possible for treatment options. We should call back with the urine culture results. You should notice improvement in the next day or so if you are on the right antibiotic. Come back if worsen. ENT FOLDER * Attachments The following attachments cannot be sent through Care Everywhere. * Hemorrhoids (Jordanian) documented in this encounter Medications at Time of Discharge acetaminophen (TYLENOL) 500 mg tablet Take 2 tablets (1,000 mg total) by mouth every 6 (six) hours as needed for Pain. 100 tablet 06/24/2022 2:00 PM GARMENT FOLDER 3 albuterol 90 mcg/actuation inhaler Inhale 2 puffs every 4 to 6 hours as needed for wheezing or shortness of breath. 18 g 1 02/02/2024 10:10 AM CDT 4 azelastine (ASTELIN) 137 mcg/spray (0.1 %) nasal spray Administer 1-2 sprays into each nostril 2 (two) times a day. Use in each nostril as directed 90 mL 1 04/21/2022 10:49 AM GARMENT FOLDER 2 azelastine (ASTELIN) 137 mcg/spray (0.1 %) nasal spray Administer 1-2 sprays into each nostril 2 (two) times a day. 30 mL 1 07/25/2023 3:58 PM CDT 4 benzonatate (Tessalon Perles) 100 mg capsule Take 1 capsule (100 mg total) by mouth 3 (three) times a day as needed for cough. 20 capsule 04/19/2024 3:28 PM GARMENT FOLDER 5 buPROPion (Wellbutrin SR) 150 mg 12 hr tablet Take 1 tablet (150 mg total) by mouth daily for 3 days, THEN 1 tablet (150 mg total) 2 (two) times a day. Start 1 to 2 weeks prior to quit date. 180 tablet 3 04/23/2024 4:19 PM GARMENT FOLDER 5 10/24/19 25 cetirizine (ZyrTEC) 10 mg tablet Take 1 tablet (10 mg total) by mouth daily as needed. 90 tablet 3 05/31/2024 3:56 PM GARMENT FOLDER 4 cholecalciferol, vitamin D3, (cholecalciferol) 25 mcg [...] a day. 20 capsule 04/23/2024 4:19 PM GARMENT FOLDER 5 fluticasone propionate (Flonase) 50 mcg/actuation nasal spray Administer 1-2 sprays into each nostril daily. 48 g 3 02/20/2024 3:44 PM GARMENT FOLDER 4 guaiFENesin (MUCINEX) 600 mg 12 hr [...] for Pain 60 tablet 06/24/2022 2:00 PM GARMENT FOLDER 3 ketorolac (TORADOL) 10 mg tablet Take [...] daily. 120 tablet 2 03/29/2024 4:39 PM GARMENT FOLDER 4 nicotine (Nicoderm CQ) 14 mg/[address] 1 patch on the skin daily for 14 days. 14 patch 5 nicotine (Nicoderm CQ) 21 mg/[address] 1 patch on the skin daily for 28 days 28 patch 05/22/2024 1:38 PM GARMENT FOLDER 5 nicotine (Nicoderm CQ) 7 mg/24 hr [...] nausea/vomiting. 15 tablet 6 2024 2:56 PM GARMENT FOLDER 4 ondansetron ODT (Zofran-ODT) 4 mg disintegrating tablet Dissolve 1 tablet (4 mg total) in the mouth every 6 to 8 hours as needed for nausea or vomiting. 30 tablet 6 05/15/2024 3:37 PM GARMENT FOLDER 4 ondansetron ODT (Zofran-ODT) 8 mg disintegrating tablet Dissolve one-half tablet (4 mg total) in the mouth 2 (two) times a day as needed for nausea or vomiting. 15 tablet 6 05/01/2024 3:27 PM GARMENT FOLDER 4 oxyCODONE (ROXICODONE) 5 mg immediate release [...] painful urination. 9 tablet 05/27/2024 9:42 AM GARMENT FOLDER 5 phentermine 15 mg capsule Take 1 [...] by mouth daily. 90 capsule 3 phenylephrine-pramo yokk-vqyahkpp-mmsup petrolatum (Preparation H Maximum Strength) 0.25-1 % [...] mg. 90 tablet 3 04/26/2024 2:25 PM GARMENT FOLDER 4 topiramate (Topamax) 25 mg tablet Take 1 tablet (25 mg total) by mouth daily with 100 mg tablet for a total daily dose of 125 mg. 90 tablet 3 04/26/2024 2:25 PM GARMENT FOLDER 4 varenicline (Chantix Continuing Month Box) 1 [...] as discussed. 53 tablet 03/22/2023 12:20 PM GARMENT FOLDER 3 documented as of this encounter ED [...] any other complaints. 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 Harshad Lang P.A.-C., P.A. 05/28/24 1530 ENT FOLDER * Jack Macedo R.N. - 05/28/2024 2:07 [...] some nausea. Jack Macedo R.N. 05/28/24 1408 ENT FOLDER documented in this encounter Plan of Treatment Not on file documented as of this encounter Procedures Procedure Name Priority Date/Time Associated Diagnosis Comments CBC WITH DIFFERENTIAL, B STAT 05/28/2024 2:33 PM GARMENT FOLDER C-REACTIVE PROTEIN (CRP), S/P STAT 05/28/2024 2:33 PM GARMENT FOLDER BASIC METABOLIC PANEL, S/P STAT 05/28/2024 2:33 PM GARMENT FOLDER documented in this encounter Results * (ABNORMAL) CRP (C-Reactive Protein) (05/28/2024 2:33 PM GARMENT FOLDER) C-Reactive Protein (CRP), P 39.8(H) <5.0 mg/L 05/28/2024 2:53 PM GARMENT FOLDER CNFL Blood (Blood, Venous) 05/28/2024 2:33 PM GARMENT FOLDER 05/28/2024 2:35 PM GARMENT FOLDER Harshad Lang P.A.-C., P.A. LAB BLOOD ADD-ON F inal Result [facility] [address] [place] [address], [facility] CNFL [facility] in [address] [address] * (ABNORMAL) Basic Metabolic Panel (05/28/2024 2:33 PM GARMENT FOLDER) Pathologist [facility] Potassium, P 3.9 3.6 - 5.2 mmol/L 05/28/2024 2:53 PM GARMENT FOLDER CNFL Sodium, P 135 135 - 145 mmol/L 05/28/2024 2:53 PM GARMENT FOLDER CNFL Chloride, P 104 98 - 107 mmol/L 05/28/2024 2:53 PM GARMENT FOLDER CNFL Bicarbonate, P 24 22 - 29 mmol/L 05/28/2024 2:53 PM GARMENT FOLDER CNFL Anion Gap, P 7 7 - 15 05/28/2024 2:53 PM GARMENT FOLDER CNFL BUN (Blood Urea Nitrogen), P 9 6 - 21 mg/dL 05/28/2024 2:53 PM GARMENT FOLDER CNFL Creatinine 0.82 0.59 - 1.04 mg/dL 05/28/2024 2:53 PM GARMENT FOLDER CNFL Estimated GFR (eGFR) >90 >=60 mL/min/BSA 05/28/2024 2:53 PM GARMENT FOLDER CNFL Comment: Estimated GFR calculated using the 2020 CKD_EPI creatinine equation. Calcium, Total, P 8.0(L) 8.6 - 10.0 mg/dL 05/28/2024 2:53 PM GARMENT FOLDER CNFL Glucose, P 106 70 - 140 mg/dL 05/28/2024 2:53 PM GARMENT FOLDER CNFL Blood (Blood, Venous) 05/28/2024 2:33 PM GARMENT FOLDER 05/28/2024 2:35 PM GARMENT FOLDER Harshad Lang P.A.-C., P.A. LAB BLOOD ADD-ON F inal Result [facility] [address] [place] [address], [facility] CNFL [facility] in [address] [address] * CBC with Differential, Blood (05/28/2024 2:33 PM GARMENT FOLDER) Hemoglobin 12.3 11.6 - 15.0 g/dL 05/28/2024 2:39 PM GARMENT FOLDER CNFL Hematocrit 37.3 35.5 - 44.9 % 05/28/2024 2:39 PM GARMENT FOLDER CNFL Erythrocytes 4.00 3.92 - 5.13 x10(12)/L 05/28/2024 2:39 PM GARMENT FOLDER CNFL MCV 93.3 78.2 - 97.9 fL 05/28/2024 2:39 PM GARMENT FOLDER CNFL RBC Distrib Width 12.4 12.2 - 16.1 % 05/28/2024 2:39 PM GARMENT FOLDER CNFL Platelet Count 245 157 - 371 x10(9)/L 05/28/2024 2:39 PM GARMENT FOLDER CNFL Leukocytes 7.9 3.4 - 9.6 x10(9)/L 05/28/2024 2:39 PM GARMENT FOLDER CNFL Neutrophils 5.99 1.56 - 6.45 x10(9)/L 05/28/2024 2:39 PM GARMENT FOLDER CNFL Lymphocytes 1.10 0.95 - 3.07 x10(9)/L 05/28/2024 2:39 PM GARMENT FOLDER CNFL Monocytes 0.63 0.26 - 0.81 x10(9)/L 05/28/2024 2:39 PM GARMENT FOLDER CNFL Eosinophils 0.13 0.03 - 0.48 x10(9)/L 05/28/2024 2:39 PM GARMENT FOLDER CNFL Basophils <0.04 0.01 - 0.08 x10(9)/L 05/28/2024 2:39 PM GARMENT FOLDER CNFL Blood (Blood, Venous) 05/28/2024 2:33 PM GARMENT FOLDER 05/28/2024 2:35 PM GARMENT FOLDER us Harshad Lang P.A.-C., P.A. LAB BLOOD ADD-ON F inal Result [facility] [address] [place] [address], [facility] CNFL [facility] in [address] [address] documented in this encounter Visit Diagnoses Diagnosis [...] prevent moisture contact. Given 05/28/2024 2:29 PM GARMENT FOLDER 4 mg oxyCODONE IR tablet 5 mg (Roxicodone) 5 mg, oral, Once, On Tu05/28/24 at 1425, For 1 dose Given 05/28/2024 2:30 PM GARMENT FOLDER 5 mg documented in this encounter Active and Recently Administered Medications Times are shown in GARMENT FOLDER. Scheduled Medication Order 05/26/2024 05/27/2024 05/28/2024 ondansetron [...] documented as of this encounter Care Teams Armed Security Officer Relationship Specialty Start Date End Date Elsewhere, Pcp PCP - General Internal Medicine 08/31/21 documented as of this encounter
--- OUTSIDE RECORDS SUMMARY | 2024-06-02 08:49 | XMS_ITS | Encounter Summary ---
Author Organization [facility] Address [address] [place] [address] Care Team Providers Care Electronic Court Recorder Name Role Phone Elsewhere, Pcp Primary Care Provider Unavailabl e Encounter Details Date Type Department Care Team (Late st Contact Info) Description 05/28/2024 Clinical Communication Primary Care on Demand at [facility] [address] [place] [address] Su Layton M.D. [address] [place] [address] Social History Tobacco Use Types [...] often do you attend chur ch or amish services? More than 4 times per year 11/09/2020 Do you belong to any clubs o r organizations such as restorationist groups, unions, fraternal [...] Answer Date Recorded PHQ-2 Score 4 07/13/2020 [facility] Answer Date [...] on file Legal Sex Female 9:27 AM BRICK CATCHER Gender Identity Female 11/17/2019 7:18 AM CDT Sexual Orientation Straight 11/17/2019 7: 18 AM CDT documented as of this encounter Plan of Treatment Not on file documented as of this encounter Visit Diagnoses Not on filedocumented in this encounter Additional Health Concerns Assessment Noted Time PHQ-9 Depression Total Score: 17 021 3:09 PM CDT documented as of this encounter Care Teams Electronic Court Recorder Relationship Specialty Start Date End Date Elsewhere, Pcp PCP - General Internal Medicine 08/31/21 documented as of this encounter
[2024-06-02 09:12] LABS: Chloride* 107 mmol/L (96-114); Potassium* 3.9 mmol/L (3.6-5.1); Sodium* 136 mmol/L (135-149)
[2024-06-02 09:15] LABS: Anion Gap 5 mEq/L (7-15); Blood Urea Nitrogen* 16 mg/dL (5-24); Carbon Dioxide* 24 mmol/L (20-32); Creatinine* 1.1 mg/dL (0.5-1.5); Est. Creatinine Clearance* 52.69; Estimated Glomerular Filt Rate 64 ml/min; Glucose* 90 mg/dL (60-115)
[2024-06-02 09:16] LABS: Calcium* 8.6 mg/dL (8.4-10.6)
[2024-06-02 09:18] LABS: C Reactive Protein* 3.6 mg/dL (0.5-1.0)
[2024-06-02 10:05] LABS: Vitamin B12* 260 pg/mL (243-894)
[2024-06-02] MEDS: ONDANSETRON ODT 4 MG TAB PO (10:53)
[2024-06-02] MEDS: KETOROLAC 30 MG/ML inj IM (10:53)
[2024-06-04 14:41] LABS: Folate, Serum >22.3 ng/mL (>=5.9)
== END 2024-06-02 11:18 | disposition home or self-care (01) ==
PROVIDERS: Emergency Provider Emergency Medicine; PCP Nurse Practitioner Family
DX: G62.9 Polyneuropathy, unspecified (principal)
CPT/HCPCS: 36415; 80048; 81001; 81003; 82607; 82746; 86140; 87086; 96372; 99284; A9270; J1885

== ENCOUNTER 2024-06-03 08:46 | Outpatient (CLI) | payer OTHER, SELFPAY | END 2024-06-03 08:47 | disposition home or self-care (01) | PROVIDERS: PCP Nurse Practitioner Family; Visit Provider Nurse Practitioner Family | DX: G57.93 Unspecified mononeuropathy of bilateral lower limbs (principal) | CPT/HCPCS: 80053; 82550; 84443; 84550; 85025; 85651; 86038; 86140; 86200; 86431; 86618 ==

== ENCOUNTER 2024-06-25 11:31 | Outpatient (CLI) | payer OTHER, SELFPAY | END 2024-06-25 11:32 | disposition home or self-care (01) | LOC: KYNREF 11:34 | PROVIDERS: PCP Nurse Practitioner Family; Visit Provider Nurse Practitioner Family | DX: E53.8 Deficiency of other specified B group vitamins (principal) | CPT/HCPCS: 82607 ==

== ENCOUNTER 2024-08-19 15:28 | Outpatient (CLI) | payer OTHER, SELFPAY | END 2024-08-19 15:29 | disposition home or self-care (01) | PROVIDERS: PCP Nurse Practitioner Family; Visit Provider Nurse Practitioner Family | DX: R20.2 Paresthesia of skin (principal) | CPT/HCPCS: 84439; 84443; 84480; 86376 ==

== ENCOUNTER 2024-08-27 15:38 | Outpatient (CLI) | payer OTHER, SELFPAY | END 2024-08-27 15:39 | disposition home or self-care (01) | PROVIDERS: PCP Nurse Practitioner Family; Visit Provider Nurse Practitioner Family | DX: E53.8 Deficiency of other specified B group vitamins (principal); R20.2 Paresthesia of skin; R53.83 Other fatigue | CPT/HCPCS: 82607; 83090; 86340 ==

== ENCOUNTER 2024-11-11 14:30 | Outpatient (CLI) | payer OTHER, SELFPAY | END 2024-11-11 14:31 | disposition home or self-care (01) | PROVIDERS: PCP Nurse Practitioner Family; Visit Provider Nurse Practitioner Family | DX: E53.8 Deficiency of other specified B group vitamins (principal); R20.2 Paresthesia of skin; Z79.899 Other long term (current) drug therapy | CPT/HCPCS: 82306; 82607; 83735 ==

== ENCOUNTER 2025-02-21 11:50 | Outpatient (CLI) | payer OTHER, SELFPAY | END 2025-02-21 11:51 | disposition home or self-care (01) | PROVIDERS: PCP Nurse Practitioner Family; Visit Provider Nurse Practitioner Family | DX: E53.8 Deficiency of other specified B group vitamins (principal); Z13.21 Encounter for screening for nutritional disorder | CPT/HCPCS: 82306; 82607 ==

== ENCOUNTER 2025-03-12 19:10 | Emergency (ER) | payer OTHER, SELFPAY ==
--- OUTSIDE RECORDS SUMMARY | 2025-02-26 09:27 | XMS_ITS | Continuity of Care Document ---
Author Organization [facility] Address [address] [place] [address] Phone Care Team Providers Care Curam Developer Name Role Phone Samuel THOMAS, Mike Unavailable Unavailable Allergies, Adverse Reactions, Alerts Substance Reaction Status Criticality POTASSIUM CLAVULANATE Active No Inf ormation AMOXICILLIN TRIHYDRATE Active No In formation CIPROFLOXACIN HCL Active No Informa tion ciprofloxacin Active No Information Medications Medication Instructions Dosage Effective Dates (start - stop) Status Comments pregabalin 75 mg capsule take 1 capsule by oral route 2 times every day 75 MG - Active note increase in dose LYRICA (unknown strength) take 1 capsule by oral route 3 times every day Not Available - Active B-12 (unknown strength) Not Available - Active ZYRTEC (unknown strength) take 1 tablet by oral route 2 times every day Not Available - Active Drizalma Sprinkle 60 mg capsule,delayed release take 2 capsule by oral route every day 120 MG - Active Triple Magnesium Complex 400 mg magnesium capsule - Active TOPIRAMATE (unknown strength) take 3 tablet by oral route 2 times every day Not Available - Active Procedures Procedure Date Est Pt Eval Moderate Inject, Spine, Lumb/sacr, Epi/subarc w/ img Guid Inject, Spine, Lumb/sacr, Epi/subarc w/ img Guid Verified No Separate Anesthesia 025 Est Pt Eval Telehealth New Pt Eval Moderate Advance Directives Directive Yes / No Effective Date File Name Intubation Not Answered N/A N/A Antibiotics Not Answered N/A N/A IV Fluid Support Not Answered N/A N/A Tube Feed Not Answered N/A N/A Other Directive No N/A N/A WARNING:The information contained in this section is historical and is provided for information only and does not constitute a legal document or any assurance that the information is still accurate. Please verify the information with the esparza of the legal document before using it for clinical purposes. Encounters Encounter Description Practice Location Reason(s) For Visit Diagnoses Date Provider Providers Copied on Encounter Est Pt Eval Moderate Anto[facility], [facility], [address], [place], [place], [id number], [place] tel:[phone] [facility] leg pain (chief complaint) Other idiopathic peripheral autonomic neuropathy 5 Samuel Mckeon. [address], [place], [address], [place]. tel:[phone] Referring Provider: Kareem Flores, [address], [place], [address] . tel:[phone] [facility], [address], [place], [place], [id number], [place] tel:[phone] [facility] No Information 5 Carlos A Singh. [address], [place], [address], [place]. tel:[phone] Referring Provider: Francisco Larsen, [address], [place], [address]. tel:[phone] [facility], [address], [place], [address], [place] tel:[phone] [facility] [place] leg pain (chief complaint) Radiculopathy, lumbar regionRadiculop athy, lumbar region 5 [facility] Surgical [facility]. [address], [place], [place], [id number], [place]. tel:[phone] Referring Provider: Francisco Larsen, [address], [place], [address]. tel:[phone] [facility], [facility], [address], [place], [place], [id number], [place] tel:[phone] [facility] Surgical [facility] No Information Carlos A Singh. [address], [place], [address], [place]. tel:[phone] Referring Provider: REFERRAL SELF, CHARAN. Est Pt Eval Telehealth [facility], [facility], [address], [place], [place], [id number], [place] tel:[phone] [facility] leg pain (chief complaint)a bdomen pain (chief complaint) Other idiopathic peripheral autonomic neuropathy Dec- 5 Erin Zeng. [address], [place], [id number], [place]. tel:[phone] Referring Provider: Kareem Flores, [address], [place], [address] . tel:[phone] New Pt Eval Moderate Antoine, [facility], [address], [place], [place], [id number], [place] tel:[phone] [facility] leg pain (chief complaint)a bdomen pain (chief complaint) Abdominal painBody mass index (BMI) 30.0-30.9, adultOther idiopathic peripheral autonomic neuropathyPain in right foot Samuel Mckeon. [address], [place], [address], [place]. tel:[phone] Referring Provider: Kareem Flores, [address], [place], [address] . tel:[phone] Family History Family Member Type Diagnosis Age At Onset No Information Payers Payer name Insurance type Covered libertarian ID Danielle millard(s) Medical Assistance [facility] [id number] Social History Type Description Quantity Date Captured Comments Alcohol Use Details No Caffeine Use Details Unknown Tobacco Use Status Occasional cigarette smoker Smoking Status Light tobacco smoker Smoking Tobacco Use Details Cigarette: No Details Available Cigarette: 6 Cigarettes per day Sex Female Vital Signs Date / Time: Height Weight BMI Pulse Rate Blood Pressure Temperature Respiratory Rate Body Surface Area Head Circumference Head Circ. Percentile Wt./Nico. Percentile BMI percentile Pulse Ox Inhaled Ox 3:32 PM 62.00 in 78.471 kg (173.00 lbs) 31.6 4 kg/m eter (2) 105 /min 105/77 mm[Hg] 98.20 F 96 % Chief Complaint And Reason For Visit From encounter dated '02/26/2025 15:27'. leg pain (chief complaint). Description: The pain is located in the both legs. The leg pain radiates into the both feet. Pain intensity is currently 7/10.The pain has been worsening . The pain is constant. The pain is described as aching, burning and throbbing. The following activities make the pain worse: cold. The following activities make the pain better: heat. Reason For Referral Reason For Referral No Information Plan Of Treatment Date Type Action Status Goal Tobacco cessation counseling completed Goal Lifestyle education regardin g diet completed Goal Tobacco cessation counseling completed History Of Present Illness Encounter Date Complaint History Of Prese nt Illness leg pain The pain is loca rosie in the both legs. The leg pain radiates into the both feet. Pain intensity is currently 7/10.The pain has been worsening . The pain is constant. The pain is described as aching, burning and throbbing. The following activities make the pain worse: cold. The following activities make the pain better: heat. leg pain The pain is loca rosie in the both legs. Pain intensity is currently 7/10. abdomen pain The pain is loca rosie in the left lower abdomen. The abdomen pain radiates into the left low back. Pain intensity is currently 5/10.The pain has been stable . The pain is constant. The pain is described as aching, burning and throbbing. The following activities make the pain worse: cold. The following activities make the pain better: heat. leg pain The pain is loca rosie in the both legs. The leg pain radiates into the both feet. Pain intensity is currently 6/10.The pain has been stable . The pain is constant. The pain is described as aching, burning and throbbing. The following activities make the pain worse: cold. The following activities make the pain better: heat. abdomen pain The pain is loca rosie in the right lower abdomen. The abdomen pain radiates into the right low back. Pain intensity is currently 6/10.The pain is described as aching, burning and throbbing. The following activities make the pain worse: cold. The following activities make the pain better: heat. leg pain The pain is loca rosie in the both legs. The leg pain radiates into the both feet. Pain intensity is currently 7/10.The pain is described as aching, burning and throbbing. The following activities make the pain worse: cold. The following activities make the pain better: heat. Additional information: Right side worse. Functional Status Date Functional Assessmen t Pain Score 7/10 Instructions Date Instruction Additional Infor yelitzaapurva - Refill and increas e pregabalin 75 mg take 1 capsule 2x/day, #60 capsules, for fill today 02/26/25. - Consider a spinal cord stimulator trial. - Follow up with an LISA in 4 weeks, in clinic Related to Other idiopathic peripheral autonomic neuropathy - Follow up in clini c in 2-3 weeks to discuss the results from today's procedure Related to Radiculopathy, lumbar region - Schedule Lumbar Ep idural Sympathetic Nerve Block with sedation *Call [phone]*With sedation, do not eat or drink 8hrs prior to procedure, you will need a dump truck driver- Continue Lyrica and Duloxetine as prescribed by your outside provider- Stop Belbuca- Start Butrans patch 7.5mcg/her 1 patch/week, for fill today 12/18/24- Follow up with an LISA in 4 weeks, in clinic Related to Other idiopathic peripheral autonomic neuropathy - Same as above Related to Abdom inal pain - Same as above Related to Pain in right foot - Follow up for [place] scan on 12/17/24 through [place]*Keep ANTOINE updated on the results - Continue Lyrica as prescribed by your outside provider- Start Belbuca 75mcg up to 2x/day, for fill today 11/29/24- Follow up with an LISA in 2 weeks, telehealth okay Related to Other idiopathic peripheral autonomic neuropathy Lifestyle education regarding di et Related to Body mass index [BMI] 30.0-30.9, adult Assessments Type Assessment Date assessment Other idiopathic peripheral auto nomic neuropathy impression Patient presents wit h persistent IVANA leg pain possibly attributed to peripheral neuropathy. She reports this started little under one year ago. She describes this as aching, burning, and throbbing. she reports that cold makes the pain worse; heat helps relieve the pain. 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 She had a repeat EMG on 12/17/24 that revealed Normal study. There is no electrodiagnostic evidence of large fiber peripheral neuropathy or left lumbosacral radiculopathy. Compared to the previous EMG from 08/30/24, there are no significant changes.Patient underwent LESNB at L4-5 level on 02/12/25 without relief. She states that she puked her brains out" following this injection after she had [employer] immediately after this injection. She's had diarrhea since her injection and she followed up with her PCP who checked her B12 and Vitamin D. She has says her B12 went from 974 to 329 and she needs to send in a stool sample. Patient was prescribed Butrans 7.5 mg/hr patch 1x/week at her last visit. She states that this caused terrible itching and she took it off after. She was on Belbuca 75 mcg 2x/day but experienced dry mouth. Discussed future option of SCS trial and explained benefits, risks, and process. Discussed requirements of thoracic MRI, PT, and BH. Patient will consider for now. 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 Denies completing a spinal tap. She reported previously being told [place] told her to come to [facility] for treatment.She has Rx for Lyrica 50mg and Duloxetine 90mg through outside provider. I refilled and increased pregabalin to 75 mg 2x/day, #60 capsules. Encouraged the patient to stop this medication if she notices rapid weight gain. Mental Status Date Cognitive Assessment Orientation - [place] ed to time, place, person, situation. Patient Care Teams Name Effective Dates (start - stop) Status Members No Information
--- OUTSIDE RECORDS SUMMARY | 2025-02-26 09:27 | XMS_ITS | Continuity of Care Document ---
Author Organization [facility] Address [address] [place] [address] Phone Care Team Providers Care [employer] Revenue Officer Name Role Phone Samuel THOMAS, Mike Unavailable [...] times every day Not Available - Active TOPIRAMATE (unknown strength) take 3 tablet by oral route 2 times every day Not Available - Active Triple Magnesium Complex 400 mg magnesium capsule - Active Drizalma Sprinkle 60 mg capsule,delayed release take 2 capsule by oral route every day 120 MG - Active ZYRTEC (unknown strength) take 1 tablet by oral route 2 times every day Not Available - Active B-12 (unknown strength) Not Available - Active Procedures Procedure Date [...] on Encounter Est Pt Eval Moderate Antoine, [facility], [address], [place], [place], [id number], [place] tel:[phone] [facility] leg pain (chief complaint) Other idiopathic peripheral autonomic neuropathy 5 Samuel Mckeon. [address], [place], [address], [place]. tel:[phone] Referring Provider: Kareem Flores, [address], [place], [address] . tel:[phone] [facility], [address], [place], [place], [id number], [place] tel:[phone] [facility] Al[place] No Information 5 Carlos A Singh. [address], [place], [address], [place]. tel:[phone] Referring Provider: Francisco Larsen, [address], [place], [address]. tel:[phone] [facility], [address], [place], [address], [place] tel:[phone] [facility] [place] leg pain (chief complaint) Radiculopathy, lumbar regionRadiculop athy, lumbar region 5 [facility]. [address], [place], [place], [id number], [place]. tel:[phone] Referring Provider: Francisco Larsen, [address], [place], [address]. tel:[phone] [facility], [facility], [address], [place], [place], [id number], [place] tel:[phone] [facility] No Information Carlos A Singh. [address], [place], [address], [place]. tel:[phone] Referring Provider: REFERRAL SELF, CHARAN. Est Pt Eval Telehealth [facility], [facility], [address], [place], [place], [address], [place] tel:[phone] [facility] leg pain (chief complaint)a bdomen pain (chief complaint) Other idiopathic peripheral autonomic neuropathy Dec- 5 Erin Zeng. [address], [place], [id number], [place]. tel:[phone] Referring Provider: Kareem Flores, [address], [place], [address] . tel:[phone] New Pt Eval Moderate Antoine, [facility], [address], [place], [place], [id number], [place] tel:[phone] [facility] leg pain (chief complaint)a bdomen pain (chief complaint) Abdominal painBody mass index (BMI) 30.0-30.9, adultOther idiopathic peripheral autonomic neuropathyPain in right foot Samuel Mckeon. [address], [place], [address], [place]. tel:[phone] Referring Provider: Kareem Flores, [address], [place], [address] . tel:[phone] Family History Family Member Type Diagnosis Age At Onset No Information Payers Payer name Insurance type Covered green party ID Danielle millard(s) Medical Assistance [facility] [id number] Social History Type Description Quantity Date Captured [...] And Reason For Visit From encounter dated 02/26/2025 15:27'. leg pain (chief complaint). Description: The [...] Status Goal Tobacco cessation counseling completed Goal Tobacco cessation counseling completed Goal Lifestyle education regardin g diet completed History Of Present Illness Encounter Date [...] both legs. Pain intensity is currently 7/10. leg pain The pain is loca rosie [...] better: heat. Additional information: Right side worse. abdomen pain The pain is loca rosie in the right lower abdomen. The abdomen pain radiates into the right low back. Pain intensity is currently 6/10.The pain is described as aching, burning and throbbing. The following activities make the pain worse: cold. The following activities make the pain better: heat. 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 Denies completing a spinal tap. She reported previously being told [facility] told her to come to [facility] for treatment.She has Rx for Lyrica 50mg and Duloxetine 90mg through outside provider. I refilled and increased pregabalin to 75 mg 2x/day, #60 capsules. Encouraged the patient to stop this medication if she notices rapid weight gain. Mental Status Date Cognitive Assessment Orientation - [place] ed to time, place, person, situation. Patient Care Teams Name Effective Dates (start - stop) Status Members No Information
--- OUTSIDE RECORDS SUMMARY | 2025-02-27 13:22 | XMS_ITS | Encounter Summary ---
Author Organization [facility] Address [address] [place] [address] Care Team Providers Care Specialty Sales Representative Name Role Phone Elsewhere, Pcp Primary Care Provider Unavailabl e Reason for Visit * Reason Comments Migraine Patient has had a mi graine since 010, she states she took her migraine medication and ibuprofen without relief. Encounter Details Date Type Department Care Team (Late st Contact Info) Description 02/27/2025 1:22 PM CLINICAL NURSING PROFESSOR - 02/27/2025 1:54 PM [facility] Emergency [place] [facility] [address] [place] [phone] Harshad Lang, PLashawnA.-C., P.A. [address] [place] [phone] Migraine Headache (Primary Dx); Nausea Discharge Disposition: Home or Self Care Social History Tobacco Use Types Packs/Day Years Used Date Smoking Tobacco: Every Day Cigarettes 0.5 17.9 Started: 2007 Smokeless Tobacco: Never Comments:1/2 or less pack/d, trying to quit Alcohol Use Standard Drinks/Week Comments Not Currently 0 (1 standard drink = 0.6 oz pur e alcohol) occasional [facility] Utilities Answer Date Recorded In the past 12 months has [facility] [employer], gas, oil, or water company threatened to shut off services in your home? No 08/30/2024 Humiliation, Afraid, Rape, and Kick questionnair e [...] by your partner or ex-partner? No 11/09/2020 Hunger Vital Sign Answer Date Recorded Within the past 12 months, y ou worried that your food would run out before you got the money to buy more. Never true 08/31/19 25 Within the past 12 months, t he food you bought just didn't last and you didn't have money to get more. Never true 08/30/2024 PRAPARE - Transportation Answer Date Re corded In the past 12 months, has l ack of transportation kept you from medical appointments or from getting medications? No 08/15 In the past 12 months, has l ack of transportation kept you from meetings, work, or from getting things needed for daily living? No 08/30/2024 Depression Answer Date Recor ded PHQ-9 Total Score (max 27) 17 07/13 Housing Stability Answer Date Recorded What is your living situation today? I h ave a place to live today, but I am worried about losing it in the future 08/30/2024 Education Answer Date Recorded What is the highest level of school you have completed or the highest degree you have received? Some college, no degree 11/17/2019 Comments No Sex and Gender Information Value Date Recorded Sex Assigned at Female 08/30/2024 8:38 AM CDT Legal Sex Female 9:27 AM CLINICAL NURSING PROFESSOR Gender Identity Female 11/17/2019 7:18 AM CDT Sexual Orientation Straight 11/17/2019 7: 18 AM CDT documented as of this encounter Last Filed Vital Signs Vital Sign Reading Time Taken Comments Blood Pressure 116/80 02/27/2025 1:33 PM CLINICAL NURSING PROFESSOR Pulse 98 02/27/2025 1:33 PM CLINICAL NURSING PROFESSOR Temperature 36.2 C (97.2 F) 02/27/2025 1:33 PM CLINICAL NURSING PROFESSOR Respiratory Rate 16 02/27/2025 1:33 PM CLINICAL NURSING PROFESSOR Oxygen Saturation 97% 02/27/2025 1:33 PM CLINICAL NURSING PROFESSOR Inhaled Oxygen Concentration - - Weight 78 kg (171 lb 15.3 oz) 02/27/2025 1:34 PM CLINICAL NURSING PROFESSOR Height - - Body Mass Index 31.45 11/26/2024 7:06 AM CDT documented in this encounter Discharge Instructions * Discharge Instructions* Harshad Lang P.A.-C., P.A. - 02/27/2025 1:44 PM CLINICAL NURSING PROFESSOR Diagnosis: Migraine Headache and Nausea Treatment Received Today: You received medicine by injection (Droperidol) to treat your headache. Medications at Discharge: Ondansetron (Zofran) 4 mg ODT: Take 1 tablet every 8 hours as needed for nausea. Do not take more than 3 tablets in 24 hours. Activity: You may return to your normal activities slowly. Avoid strenuous activity today. Rest in a dark, quiet room. Stay well-hydrated. Follow-Up: Follow up with your Primary Care Physician or a Neurologist within 1-3 days, or as soon as possible, to discuss preventative medication options for your migraines. Frequent use of the Emergency Department for migraines suggests your current outpatient plan may need adjustment. WHEN TO RETURN IMMEDIATELY (Red Flags): You must return to the Emergency Department immediately if you experience ANY of the following: Worsening headache that becomes the worst headache of your life. New or severe neck stiffness or pain (nuchal rigidity). Fever or chills. New weakness, numbness, or difficulty speaking. Seizure or loss of consciousness. New or sudden visual changes (double vision, blurred vision). New, persistent vomiting. ICAL NURSING PROFESSOR * Attachments The following attachments cannot be sent through Care Everywhere. * Migraine Headache Hdvm-nz-Ckid (Belarusian) documented in this encounter Medications at Time of Discharge acetaminophen (TYLENOL) 500 mg tablet Take 2 tablets (1,000 mg total) by mouth every 6 (six) hours as needed for Pain. 100 tablet 06/24/2022 2:00 PM CLINICAL NURSING PROFESSOR 06/25/19 23 albuterol 90 mcg/actuation inhaler Inhale 2 puffs every 4 to 6 hours as needed for wheezing or shortness of breath. 18 g 1 02/02/2024 10:10 AM CDT 02/01/20 24 amitriptyline 2 % gabapentin 5 % ketamine 5 % in lipoderm Apply topically 2 (two) times a day. Apply to bilateral feet. 60 g 1 08/24/19 25 azelastine (ASTELIN) 137 mcg/spray (0.1 %) nasal spray Administer 1-2 sprays into each nostril 2 (two) times a day. Use in each nostril as directed 90 mL 1 04/21/2022 10:49 AM CLINICAL NURSING PROFESSOR 04/06/20 22 azelastine (ASTELIN) 137 mcg/spray (0.1 %) nasal spray Administer 1-2 sprays into each nostril 2 (two) times a day. 30 mL 1 07/25/2023 3:58 PM CDT 07/25/19 24 benzonatate (Tessalon Perles) 100 mg capsule Take 1 capsule (100 mg total) by mouth 3 (three) times a day as needed for cough. 20 capsule 04/19/2024 3:28 PM CLINICAL NURSING PROFESSOR 04/19/19 25 buprenorphine (Butrans) 7.5 mcg/hour Place 1 patch on the skin every 7 (seven) days. 4 patch 12/20/2024 1:03 PM CDT 12/19/19 25 buprenorphine HCL (Belbuca) 75 mcg film per Buccal Film Place 1 film against the inside of the cheek, holding in place for 5 seconds, 2 times every day. 30 Film 12/02/2024 1:56 PM CDT 11/30/19 25 buPROPion (Wellbutrin SR) 150 mg 12 hr tablet Take 1 tablet (150 mg total) by mouth 2 (two) times a day. 180 tablet 3 02/21/2025 4:03 PM CLINICAL NURSING PROFESSOR 02/22/20 25 cetirizine (ZyrTEC) 10 mg tablet Take 1 tablet (10 mg total) by mouth daily as needed. 90 tablet 3 02/17/2025 3:38 PM CLINICAL NURSING PROFESSOR 02/20/20 24 cholecalciferol, vitamin D3, (cholecalciferol) 25 mcg (1,000 Unit) tablet Take 50 mcg by mouth daily with breakfast. 06/07/19 23 cyanocobalamin (Vitamin B-12) 1,000 mcg/mL injection Inject 1 mL (1000 mcg) intramuscularly WEEKLY for 60 days 8 mL 06/13/2024 3:50 PM CLINICAL NURSING PROFESSOR 06/13/19 25 diclofenac sodium (Voltaren) 1 % gel Apply 2 g topically to left foot four times daily for 14 days; apply to single left foot 100 g 12/15/2023 1:17 PM CDT 12/15/19 24 docusate sodium (COLACE) 100 mg capsule 06/24/19 22 doxepin (SILENOR) 3 mg tablet Take 1 tablet (3 mg total) by mouth at bedtime as needed. 90 tablet 3 06/29/19 24 doxepin (SINEquan) 10 mg/mL concentrated solution Take 0.3 mL (3 mg total) by mouth at bedtime as needed for insomnia 120 mL 1 07/04/2023 4:53 PM CDT 07/01/19 24 doxycycline monohydrate (Monodox) 100 mg capsule Take 1 capsule (100 mg total) by mouth 2 (two) times a day. 20 capsule 04/23/2024 4:19 PM CLINICAL NURSING PROFESSOR 04/23/19 25 DULoxetine (Cymbalta) [address] capsule Take 1 capsule (30 mg total) by mouth daily. Take along with a 60 mg capsule for a total of 90 mg daily. 90 capsule 3 12/09/2024 10:40 AM CDT 12/07/19 25 DULoxetine (Cymbalta) [address] capsule Take 1 capsule (60 mg total) by mouth daily. 90 capsule 3 12/13/2024 3:14 PM CDT 09/18/19 25 fluticasone propionate (Flonase) 50 mcg/actuation nasal spray Administer 1-2 sprays into each nostril daily. 48 g 3 02/20/2024 3:44 PM CLINICAL NURSING PROFESSOR 02/20/20 24 guaiFENesin (MUCINEX) 600 mg 12 hr tablet 600 mg orally every 12 hours for 30 days 60 tablet 1 01/26/20 22 hydrocortisone (Anusol-HC) 25 mg suppository Insert 1 suppository (25 mg total) into the rectum 2 (two) times a day. 10 suppository 05/30/19 25 hydrocortisone (Hytone) 2.5 % cream Apply topically 2 (two) times a day for hemorrhoids. 30 g 05/31/2024 3:56 PM CLINICAL NURSING PROFESSOR 05/31/19 25 hydrOXYzine (VistariL) 25 mg capsule Take 1 capsule (25 mg total) by mouth 3 (three) times a day as needed for nausea. 90 capsule 11 10/11/2023 3:54 PM CDT 10/10/19 24 hydrOXYzine (VistariL) 25 mg capsule Take 1 capsule (25 mg total) by mouth 3 (three) times a day as needed for anxiety. 90 capsule 06/25/2024 3:45 PM CDT 06/26/19 25 ibuprofen (MOTRIN) 600 mg tablet Take 1 tablet (600 mg total) by mouth every 6 (six) hours as needed for Pain 60 tablet 06/24/2022 2:00 PM CLINICAL NURSING PROFESSOR 06/25/19 23 IM 1 & 1/2 Injection Kit Use as directed to inject prescribed medication. 1 kit = 15-3mL syr: 23G 1&1/2, 15-23G 1&1/2 needles, 30 alcohol wipes 1 each 06/13/2024 3:50 PM CLINICAL NURSING PROFESSOR 06/13/19 25 ketorolac (TORADOL) 10 mg tablet Take 1 tablet (10 mg total) by mouth every 4 to 6 hours as needed for pain for 5 days. Do not exceed 4 tablets per day 14 tablet 6 01/10/2023 2:28 PM CDT 02/18/20 22 lidocaine 3 % cream 1 application topically twice a day As Needed for pain 28.35 g 05/29/19 25 magnesium oxide (Mag-Ox) 400 mg (241.3 mg magnesium) tablet Take 1 tablet (400 mg total) by mouth daily. 120 tablet 07/29/2024 4:11 PM CDT 07/27/19 25 magnesium oxide (Mag-Ox) 400 mg (241.3 mg magnesium) tablet Take 1 tablet (400 mg total) by mouth daily. 120 tablet 3 11/25/2024 4:08 PM CDT 11/26/19 25 nicotine (Nicoderm CQ) 21 mg/[address] 1 patch on the skin daily. Remove old patch. 28 patch 08/28/19 25 nicotine (Nicotrol NS) 10 mg/mL nasal spray Administer 1 spray intranasally every 60 minutes As Needed for nicotine cravings; administer into each nostril. DO NOT EXCEED 40 DOSES (80 SPRAYS) PER DAY 40 mL 1 10/13/2023 1:03 PM CDT 10/12/19 24 nicotine (Nicotrol) 10 mg inhaler 1 inhaled 4 to 8 times per day As Needed for nicotine cravings for 30 days 168 each 6 07/12/19 23 nitrofurantoin monohydrate (Macrobid) 100 mg capsuleIndications :Acute Cystitis Without Hematuria Take 1 capsule (100 mg total) by mouth 2 (two) times a day. 10 capsule 05/27/19 25 ondansetron (Zofran) 4 mg tablet Take 1 tablet (4 mg total) by mouth every 8 (eight) hours as needed for nausea or vomiting. 20 tablet 02/27/2025 3:43 PM CLINICAL NURSING PROFESSOR 02/28/20 25 ondansetron ODT (ZOFRAN-ODT) 4 mg disintegrating tablet Dissolve 1 tablet (4 mg total) in the mouth every 12 (twelve) hours. 10 tablet 06/21/19 23 ondansetron ODT (Zofran-ODT) 4 mg disintegrating tablet Dissolve 1 tablet (4 mg total) in the mouth every 6 to 8 hours as needed for nausea/vomiting. 15 tablet 6 07/29/2024 4:11 PM CDT 12/28/19 24 ondansetron ODT (Zofran-ODT) 4 mg disintegrating tablet Dissolve 1 tablet (4 mg total) in the mouth every 6 to 8 hours as needed for nausea or vomiting. 30 tablet 6 05/15/2024 3:37 PM CLINICAL NURSING PROFESSOR 12/29/19 24 ondansetron ODT (Zofran-ODT) 4 mg disintegrating tablet Dissolve 1 tablet (4 mg total) in the mouth every 6 to 8 hours as needed for nausea or vomiting. 45 tablet 6 03/12/2025 4:16 PM CLINICAL NURSING PROFESSOR 01/02/20 25 ondansetron ODT (Zofran-ODT) 8 mg disintegrating tablet Dissolve 1 tablet (8 mg total) in the mouth every 6 to 8 hours as needed for nausea or vomiting. 30 tablet 6 02/17/2025 3:38 PM CLINICAL NURSING PROFESSOR 06/13/19 25 ondansetron ODT (Zofran-ODT) 8 mg disintegrating tablet Dissolve 1 tablet (8 mg total) in the mouth every 8 hours as needed for nausea and vomiting. 90 tablet 12/02/2024 1:56 PM CDT 10/08/19 25 oxyCODONE (ROXICODONE) 5 mg immediate release tablet Take 1 tablet (5 mg total) by mouth every 4 (four) hours as needed. 20 tablet 01/31/2023 2:23 PM CDT 02/01/20 23 oxyCODONE (Roxicodone) 5 mg immediate release tablet Take 1 tablet (5 mg total) by mouth every 8 (eight) hours as needed for pain. 21 tablet 06/03/2024 10:27 AM CLINICAL NURSING PROFESSOR 06/03/19 25 penicillin V potassium (VEETIDS) 500 mg tablet Take 1 tablet (500 mg total) by mouth 4 (four) times a day until gone 40 tablet 12/26/2022 5:20 PM CDT 12/27/19 23 phenazopyridine (Pyridium) 200 mg tabletIndications: Acute Cystitis Without Hematuria Take 1 tablet (200 mg total) by mouth 3 (three) times a day as needed for painful urination. 9 tablet 05/27/2024 9:42 AM CLINICAL NURSING PROFESSOR 05/27/19 25 phentermine 15 mg capsule Take 1 capsule (15 mg) orally every day for 90 days; must administer 2 hours after breakfast 90 capsule 07/28/2022 4:30 PM CDT 07/19/19 23 phentermine 15 mg capsule Take 1 capsule (15 mg total) by mouth daily. Take at least 2 hours after breakfast. 90 capsule 1 11/20/2023 9:55 AM CDT 11/13/19 24 phentermine-topira mate (Qsymia) 15-92 mg capsule, ER multiphase 24 hr ext release capsule 1 cap orally every 24 hours for 90 days 90 capsule 3 07/12/19 23 phentermine-topira mate (Qsymia) 15-92 mg capsule, ER multiphase 24 hr ext release capsule Take 1 capsule by mouth daily. 90 capsule 07/16/19 23 phentermine-topira mate (Qsymia) 15-92 mg capsule, ER multiphase 24 hr ext release capsule Take 1 capsule by mouth daily. 90 capsule 07/16/19 23 phenylephrine-pram mgain-svxglpon-tzb te petrolatum (Preparation H Maximum Strength) 0.25-1 % cream 1 applic rectally 2 to 4 times per day As Needed for hemorrhoids for 30 days 51 g 3 09/14/19 23 polyethylene glycol-electrolyte s (Golytely) 236-22.74-6.74 -5.86 gram solution Take first portion of the prep at 4pm the evening before and start second portion 3 to 6 hours before and finish 2 hours prior to report time. 4000 mL 09/12/2024 4:23 PM CDT 09/13/19 25 pregabalin (Lyrica) 75 mg capsule Take 1 capsule (75 mg total) by mouth 2 (two) times a day. 60 capsule 02/27/2025 3:43 PM CLINICAL NURSING PROFESSOR 02/27/20 25 pseudoephedrine (Sudogest) 30 mg tablet Take 1 tablet (30 mg total) by mouth 3 (three) times a day. 24 tablet 12/01/2022 12:37 PM CDT 12/02/19 23 tamsulosin (FLOMAX) 0.4 mg 24 hr capsule Take 1 capsule (0.4 mg) orally daily to prevent bladder spasm 7 capsule 06/27/2022 10:18 AM CDT 06/28/19 23 topiramate (Topamax) 100 mg tablet Take 1 tablet (100 mg total) by mouth daily in addition to a 25 mg tablet for a total of 125 mg daily. 90 tablet 3 03/03/2025 3:45 PM CLINICAL NURSING PROFESSOR 08/02/19 25 topiramate (Topamax) 25 mg tablet Take 1 tablet (25 mg total) by mouth daily in addition to a 100 mg tablet for a total of 125 mg daily. 90 tablet 3 02/19/2025 3:16 PM CLINICAL NURSING PROFESSOR 08/02/19 25 varenicline (Chantix Continuing Month Box) 1 mg tablet Administer after eating and with a full glass of water. Maintenance (day 8 and later): 1 mg twice daily. Set gradual quit date as discussed. 112 tablet 03/20/20 23 varenicline (Chantix Starting Month Box) 0.5 mg (11)- 1 mg (42) tablet Administer after eating and with a full glass of water. Initial: Days 1 to 3: 0.5 mg once daily. Days 4 to 7: 0.5 mg twice daily. Maintenance (day 8 and later): 1 mg twice daily. Set gradual quit date as discussed. 53 tablet 03/22/2023 12:20 PM CLINICAL NURSING PROFESSOR 03/20/20 23 pregabalin (Lyrica) 50 mg capsule Take 1 capsule (50 mg total) by mouth 2 (two) times a day. 60 capsule 5 01/30/2025 3:23 PM CDT 12/26/19 25 025 documented as of this encounter ED Notes * Harshad Lang P.A.-Edward., P.A. - 02/27/2025 1:44 PM CST The patient verbally consented to an audio recording of their visit to assist with the completion of documentation. SUBJECTIVE CHIEF COMPLAINT/REASON FOR VISIT Migraine (Patient has had a migraine since 0100, she states she took her migraine medication and ibuprofen without relief.) HISTORY OF PRESENT ILLNESS History of Present Illness Ms. Dulce Lei is a 44-year-old female presents with a chief complaint of a migraine headache. The patient describes the headache as typical for her recurrent migraines, beginning at approximately 0100 today. It is associated with nausea and photophobia. She rates the pain as an 8/10 at presentation. She self-treated two to three hours prior to arrival with ibuprofen and liquid Benadryl with minimal relief. Specific inquiry was made for concerning red flag symptoms: She explicitly denies fever, chills, vomiting, neck stiffness, new visual changes, focal weakness, numbness, recent trauma, or history ofcancer/immunocompromise. She reports a mild, associated scratchy throat but denies congestion, cough, or breathing difficulty. She notes frequent prior visits to the Emergency Department for similar migraines, often requiring intravenous/intramuscular medication for relief, though she is unsure of the specific agents used. The presentation is consistent with her known migraine history. REVIEW OF SYSTEMS Constitutional: Negative for activity change, appetite change, chills, diaphoresis, fatigue and fever. HENT: Negative for congestion, ear pain, rhinorrhea and sore throat. Eyes: Positive for photophobia. Negative for visual disturbance. Respiratory: Negative for cough, chest tightness and shortness of breath. Cardiovascular: Negative for chest pain, palpitations and leg swelling. Gastrointestinal: Positive for nausea. Negative for abdominal pain, diarrhea and vomiting. Genitourinary: Negative for dysuria. Musculoskeletal: Negative for back pain, myalgias and neck pain. Skin: Negative for rash. Neurological: Positive for headaches. Negative for dizziness, tremors, seizures, syncope, facial asymmetry, speech difficulty, weakness, light-headedness, numbness and loss of balance. OBJECTIVE Initial Vitals Temperature 02/27/25 1333 36.2 ??C Pulse Rate 02/27/25 1333 98 Heart Rate -- Resp Rate 02/27/25 1333 16 Blood Pressure 02/27/25 1333 116/80 SpO2 02/27/25 1333 97 % Pain Score 02/27/25 1328 8 PHYSICAL EXAMINATION Constitutional: Nursing note and vitals reviewed. Vital signs are normal. She appears not lethargic. She is active. She does not appear ill. No distress. HENT: Head: Normocephalic and atraumatic. Eyes: Conjunctivae and lids are normal. Neck: Phonation normal. Cardiovascular: Normal rate. Pulmonary/Chest: Effort normal. No tachypnea. No respiratory distress. Musculoskeletal: Cervical back: No pain with movement. Neurological: Alert and oriented to person, place, and time. She has normal sensation, normal strength and cranial nerves II through XII intact. She is not disoriented. GCS eye subscore is 4. GCS verbal subscore is 5. GCS motor subscore is 6. Normal speech. Skin: Skin is warm, dry and normal color. No rash noted. Psychiatric: She has a normal mood and affect. Relaxed. ASSESSMENT/PLAN Medical Decision Making Dulce Lie is a 44-year-old female with a history of recurrent migraines presenting with a typical acute migraine episode, complicated by nausea and photophobia, refractory to initial home management. A thorough history and examination were performed to exclude life-threatening causes (SAH,Meningitis, ICH/Mass), which were deemed highly unlikely based on the benign exam and typical presentation. Diagnosis: Acute Migraine Headache and Nausea. Treatment in ED: Goal: Abort the acute headache and manage nausea. Medications Administered: Droperidol IM for migraine abortive therapy. Discharge Decision: Patient's headache is significantly improved, pain is manageable, nausea resolved, and she is ambulating safely. She has been stable for observation time and has clear, reliable transport. Discharge home is appropriate with strict return precautions. Assessment and Plan DIFFERENTIAL DIAGNOSES Migraine Headache (Most Likely): Acute, typical presentation in a patient with a known history, associated with characteristic symptoms of nausea and photophobia, and absence of red-flag symptoms. Tension Headache: Less likely due to associated nausea and photophobia, but possible overlap. Viral Syndrome/URI: Considered due to mild scratchy throat, but absence of fever, chills, cough, orsignificant systemic symptoms makes it a less likely primary cause of severe headache. Subarachnoid Hemorrhage (SAH): Crucial to exclude. Ruled out by the non-sudden onset (not 'thunderclap'), non-maximal pain at onset, normal neurologic exam, and absence of meningismus (nuchal rigidity). This diagnosis must be explicitly considered and documented against in any new/severe headache. Intracranial Mass/Tumor/Abscess: Ruled out by normal neurological exam, absence of vomiting, papilledema (though not specifically examined), and chronic/recurrent nature of the headaches. Meningitis/Encephalitis: Ruled out by normal temperature, absence of nuchal rigidity, and absence of altered mental status/seizure. Temporal Arteritis: Ruled out by patient's age (too young) and lack of jaw claudication or temporaltenderness. Acute Glaucoma: Ruled out by absence of severe eye pain, blurred vision, or eye findings on exam.. PROBLEMS ADDRESSED THIS VISIT Acute Migraine Headache Nausea. Final Diagnoses: as of 02/27/25 1344 Migraine Headache Nausea The following tests were considered but ultimately not performed: Head CT or MRI: Not performed. Reasoning documented: Headache is typical for known migraine, neurological exam is completely non-focal, no fever, no thunderclap onset, no recent trauma, no history of immunocompromise or cancer, and no change in headache pattern. No imaging was warranted to exclude acute intracranial pathology (e.g., SAH or ICH) given the low-risk features and typical presentation. Labs (CBC, CMP): Not performed. No fever, dehydration, or suspicion for systemic infection or metabolic derangement requiring investigation. Lumbar Puncture: Not performed. No clinical suspicion for meningitis or SAH (non-thunderclap, no nuchal rigidity, normal mental status).. Escalation of care, including admission/observation, considered: Admission: Not indicated. Headacheis responsive to treatment, pain is controlled, nausea is resolved, and she is neurologically intact with reliable discharge planning. She does not require further IV therapy or advanced monitoring. Observation: Not indicated. Headache aborted well with abortive therapy.. Harshad Lang P.A.-C., P.A. 02/27/25 1404 ICAL NURSING PROFESSOR documented in this encounter Plan of Treatment Not on file documented as of this encounter Visit Diagnoses Diagnosis Migraine Headache- Primary Nausea documented in this encounter Administered Medications Inactive Administered Medications - up to 3 most recent administrations Medication Order MAR Action Action Date Dose Rate Site droPERidoL injection 1.25 mg (Inapsine) 1.25 mg, intramuscular, Once, On Roxie 02/27/25 at 1343, For 1 dose Given 02/27/2025 1:48 PM CLINICAL NURSING PROFESSOR 1.25 mg Right Deltoid documented in this encounter Active and Recently Administered Medications Times are shown in CLINICAL NURSING PROFESSOR. Scheduled Medication Order 02/25/2025 02/26/2025 02/27/2025 droPERidoL injection 1.25 mg (Inapsine) (COMPLETED) 1.25 mg, intramuscular, Once, On Roxie 02/27/25 at 1343, For 1 dose 1348 (Given - Provid er: Joao Herrera R.N.) documented in this encounter Additional Health Concerns Assessment Noted Time PHQ-9 Depression Total Score: 17 021 3:09 PM CDT documented as of this encounter Care Teams Specialty Sales Representative Relationship Specialty Start Date End Date Elsewhere, Pcp PCP - General Internal Medicine 08/31/21 documented as of this encounter
--- OUTSIDE RECORDS SUMMARY | 2025-03-01 03:53 | XMS_ITS | Encounter Summary ---
Author Organization [facility] Address [address] [place] [id number] Care Team Providers Care Terrazzo Finisher Name Role Phone Elsewhere, Pcp Primary Care Provider Unavailabl e Reason for Visit * Reason Comments Abdominal Pain Patient arrives by p rivate car with left lower quadrant abdominal pain. Denies fever and vomiting. Confirms nausea and diarrhea. Encounter Details Date Type Department Care Team ([facility] st Contact Info) Description 03/01/2025 3:53 AM SENSOR SPECIALIST - 03/01/2025 6:31 AM SENSOR SPECIALIST Emergency [facility] [address] [place] [phone] Kevin Lawrenec, P.A.-C. [address] [place] [phone] Abdominal Pain (Primary Dx) Discharge Disposition: Home or Self Care Social History Tobacco Use Types Packs/Day Years Used Date Smoking Tobacco: Every Day Cigarettes 0.5 17.9 Started: 2007 Smokeless Tobacco: Never Comments:1/2 or less pack/d, trying to quit Alcohol Use Standard Drinks/Week Comments Not Currently 0 (1 standard drink = 0.6 oz pur e alcohol) occasional [facility] Utilities Answer Date Recorded In the past 12 months has e [employer], gas, oil, or water company threatened to [...] AM CDT Legal Sex Female 9:27 AM SENSOR SPECIALIST Gender Identity Female 11/17/2019 7:18 AM CDT Sexual Orientation Straight 11/17/2019 7: 18 AM CDT documented as of this encounter Last Filed Vital Signs Vital Sign Reading Time Taken Comments Blood Pressure 101/69 03/01/2025 6:26 AM SENSOR SPECIALIST Pulse 83 03/01/2025 6:27 AM SENSOR SPECIALIST Temperature 36.8 C (98.2 F) 03/01/2025 4:02 AM SENSOR SPECIALIST Respiratory Rate 16 03/01/2025 4:02 AM SENSOR SPECIALIST Oxygen Saturation 97% 03/01/2025 6:27 AM SENSOR SPECIALIST Inhaled Oxygen Concentration - - Weight 79.3 kg (174 lb 13.2 oz) 03/01/2025 4:03 AM SENSOR SPECIALIST Height - - Body Mass Index 31.98 11/26/2024 7:06 AM CDT documented in this encounter Discharge Instructions * Discharge Instructions* Kevin Lawrence P.A.-C. - 03/01/2025 6:13 AM SENSOR SPECIALIST You can use Tylenol or ibuprofen to help with the pain You could also try a heating pad If your pain worsens, you develop fevers or chills, have bloody stools or other concerns return to the ER for further evaluation OR SPECIALIST OR SPECIALIST * Attachments The following attachments cannot be sent through Care Everywhere. * Abdominal Pain Adult [id number] (Micronesian) documented in this encounter Medications at Time of Discharge acetaminophen (TYLENOL) 500 mg tablet Take 2 tablets (1,000 mg total) by mouth every 6 (six) hours as needed for Pain. 100 tablet 06/24/2022 2:00 PM SENSOR SPECIALIST 06/25/19 23 albuterol 90 mcg/actuation inhaler Inhale [...] directed 90 mL 1 04/21/2022 10:49 AM SENSOR SPECIALIST 04/06/20 22 azelastine (ASTELIN) 137 mcg/spray (0.1 %) nasal spray Administer 1-2 sprays into each nostril 2 (two) times a day. 30 mL 1 07/25/2023 3:58 PM CDT 07/25/19 24 benzonatate (Tessalon Perles) 100 mg capsule Take 1 capsule (100 mg total) by mouth 3 (three) times a day as needed for cough. 20 capsule 04/19/2024 3:28 PM SENSOR SPECIALIST 04/19/19 25 buprenorphine (Butrans) 7.5 mcg/hour Place [...] day. 180 tablet 3 02/21/2025 4:03 PM SENSOR SPECIALIST 02/22/20 25 cetirizine (ZyrTEC) 10 mg tablet Take 1 tablet (10 mg total) by mouth daily as needed. 90 tablet 3 02/17/2025 3:38 PM SENSOR SPECIALIST 02/20/20 24 cholecalciferol, vitamin D3, (cholecalciferol) 25 mcg (1,000 Unit) tablet Take 50 mcg by mouth daily with breakfast. 06/07/19 23 cyanocobalamin (Vitamin B-12) 1,000 mcg/mL injection Inject 1 mL (1000 mcg) intramuscularly WEEKLY for 60 days 8 mL 06/13/2024 3:50 PM SENSOR SPECIALIST 06/13/19 25 diclofenac sodium (Voltaren) 1 % [...] a day. 20 capsule 04/23/2024 4:19 PM SENSOR SPECIALIST 04/23/19 25 DULoxetine (Cymbalta) [address] [...] daily. 48 g 3 02/20/2024 3:44 PM SENSOR SPECIALIST 02/20/20 24 guaiFENesin (MUCINEX) 600 mg 12 [...] for hemorrhoids. 30 g 05/31/2024 3:56 PM SENSOR SPECIALIST 05/31/19 25 hydrOXYzine (VistariL) 25 mg capsule [...] for Pain 60 tablet 06/24/2022 2:00 PM SENSOR SPECIALIST 06/25/19 23 IM 1 & 1/2 Injection Kit Use as directed to inject prescribed medication. 1 kit = 15-3mL syr: 23G 1&/2, 15-23G 1&1/2 needles, 30 alcohol wipes 1 each 06/13/2024 3:50 PM SENSOR SPECIALIST 06/13/19 25 ketorolac (TORADOL) 10 mg tablet [...] or vomiting. 20 tablet 02/27/2025 3:43 PM SENSOR SPECIALIST 02/28/20 25 ondansetron ODT (ZOFRAN-ODT) 4 mg [...] vomiting. 30 tablet 6 05/15/2024 3:37 PM SENSOR SPECIALIST 12/29/19 24 ondansetron ODT (Zofran-ODT) 4 mg disintegrating tablet Dissolve 1 tablet (4 mg total) in the mouth every 6 to 8 hours as needed for nausea or vomiting. 45 tablet 6 03/12/2025 4:16 PM SENSOR SPECIALIST 01/02/20 25 ondansetron ODT (Zofran-ODT) 8 mg disintegrating tablet Dissolve 1 tablet (8 mg total) in the mouth every 6 to 8 hours as needed for nausea or vomiting. 30 tablet 6 02/17/2025 3:38 PM SENSOR SPECIALIST 06/13/19 25 ondansetron ODT (Zofran-ODT) 8 mg [...] for pain. 21 tablet 06/03/2024 10:27 AM SENSOR SPECIALIST 06/03/19 25 penicillin V potassium (VEETIDS) 500 [...] painful urination. 9 tablet 05/27/2024 9:42 AM SENSOR SPECIALIST 05/27/19 25 phentermine 15 mg capsule Take [...] mouth daily. 90 capsule 07/16/19 23 phenylephrine-pram jwiae-ztmiisgm-uyc te petrolatum (Preparation H Maximum Strength) 0.25-1 [...] a day. 60 capsule 02/27/2025 3:43 PM SENSOR SPECIALIST 02/27/20 25 pseudoephedrine (Sudogest) 30 mg tablet [...] daily. 90 tablet 3 03/03/2025 3:45 PM SENSOR SPECIALIST 08/02/19 25 topiramate (Topamax) 25 mg tablet Take 1 tablet (25 mg total) by mouth daily in addition to a 100 mg tablet for a total of 125 mg daily. 90 tablet 3 02/19/2025 3:16 PM SENSOR SPECIALIST 08/02/19 25 varenicline (Chantix Continuing Month Box) [...] as discussed. 53 tablet 03/22/2023 12:20 PM SENSOR SPECIALIST 03/20/20 23 pregabalin (Lyrica) 50 mg capsule Take 1 capsule (50 mg total) by mouth 2 (two) times a day. 60 capsule 5 01/30/2025 3:23 PM CDT 12/26/19 25 025 documented as of this encounter ED Notes * Kevin Lawrence P.A.-C. - 03/01/2025 4:15 AM CST SUBJECTIVE CHIEF COMPLAINT/REASON FOR VISIT Abdominal Pain (Patient arrives by private car with left lower quadrant abdominal pain. Denies fever and vomiting. Confirms nausea and diarrhea. 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 She has had some nausea and diarrhea over last 2 weeks fairly consistently however he had not had any pain until yesterday. She has a sharp pain in the left lower quadrant and left adnexal region which is worse with movement, better with lying still. Not affected by bowel movements or urination. She has not had any dysuria, frequency orurgency. No vaginal bleeding or discharge. Palpation does not seem to change her pain. She tried some ibuprofen without adequate relief. History provided by: Patient and medical records REVIEW OF SYSTEMS As per [facility] OBJECTIVE Initial Vitals [03/01/25 0402] Temperature 36.8 ??C Pulse Rate 101 Heart Rate Resp Rate 16 Blood Pressure 116/86 SpO2 98 % Pain Score 6 PHYSICAL EXAMINATION Constitutional: She appears not lethargic. No distress. HENT: Mouth/Throat: Mucous membranes are moist. Cardiovascular: Normal rate. Capillary refill: takes less than 3 seconds Pulmonary/Chest: Effort normal. No respiratory distress. Abdominal: Soft. There is no abdominal tenderness. There is no rebound and no guarding. Mild left CVA tenderness, no right CVA tenderness Genitourinary: No vaginal discharge or tenderness. Musculoskeletal: General: No deformity. Neurological: Alert. Skin: Skin is warm and dry. ASSESSMENT/PLAN Assessment and Plan IV access established, patient given fentanyl IV with significant improvement in her pain. Her labsare not markedly abnormal, CT shows no acute intra-abdominal process. Will discharge home with GI pathogen panel test given the length of the diarrheal illness. She can continue with the Imodium or other ygmh-jdf-okypzen antidiarrheals, will not start antibiotics at this point given the lack of bloo dy stools, fevers, chills or other signs of invasive infection. She can follow up with the primary care provider next week for recheck. Home care instructions discussed, signs and symptoms that should prompt return to the emergency were discussed.. DIFFERENTIAL DIAGNOSES Emergent etiology such as appendicitis, colitis, diverticulitis, cystitis, pyelonephritis, nephrolithiasis. Care is significantly affected by the following Social Determinants of Health: None identified. I reviewed the following external records: office records. Final Diagnoses: as of 03/01/25 0618 Abdominal Pain Kevin Lawrence P.A.-C. 03/01/25 0621 OR SPECIALIST documented in this encounter Plan of Treatment Scheduled Orders Name Type Priority Associated Diagnoses Orde r Schedule GI Pathogen Panel, PCR, Feces Microbiology Routine Abdominal Pain Expected: 03/01/2025, Expires: 06/01/2026 documented as of this encounter Procedures Procedure Name Priority Date/Time Associated Diagnosis Comments CT ABDOMEN PELVIS WITHOUT IV CONTRAST RAD - Semiurgent (Fast; most ED patients; some inpatients) 03/01/2025 4:55 AM SENSOR SPECIALIST CBC WITH DIFFERENTIAL, B STAT 03/01/2025 4:26 AM SENSOR SPECIALIST COMPREHENSIVE METABOLIC PANEL, S/P STAT 03/01/2025 4:26 AM SENSOR SPECIALIST URINALYSIS WITH MICROSCOPIC IF INDICATED, U STAT 03/01/2025 4:23 AM SENSOR SPECIALIST HC URINALYSIS AUTO W MICRO STAT 03/01/2025 4:23 AM SENSOR SPECIALIST documented in this encounter Results * CT Abdomen Pelvis without IV Contrast (03/01/2025 4:55 AM SENSOR SPECIALIST) Anatomical Region Laterality Modality Abdomen, Pelvis, Abdominal R ST LOS, Abdominal ARZ LOS, Abdominal FLA LOS N/A Computed Tomography 03/01/2025 4:55 AM SENSOR SPECIALIST Impressions 03/01/2025 6:01 AM SENSOR SPECIALIST No acute abnormality in the abdomen or pelvis. Narrative 03/01/2025 6:01 AM SENSOR SPECIALIST EXAM: CT ABDOMEN PELVIS WITHOUT IV CONTRAST COMPARISON: 11/26/2024 FINDINGS: Lower chest: Unremarkable. Liver: No suspicious lesion. Gallbladder/bile ducts: No bile duct enlargement. Pancreas: No organized peripancreatic collection or acute inflammatory changes. Spleen: No suspicious lesion. Adrenal glands: Unremarkable. Kidneys, ureters, bladder: No hydronephrosis. GI tract, mesentery/peritoneum: No obstruction. Moderate stool volume. Colonic diverticulosis without evidence of acute diverticulitis. Vasculature: No evidence of aortic aneurysm. Lymph Nodes: No pathologically enlarged lymph nodes. Reproductive: Unremarkable. Musculoskeletal: No abnormal soft tissue mass or acute fracture. Procedure Note Basil Watson M.D. - 03/01/2025 EXAM: CT ABDOMEN PELVIS WITHOUT IV CONTRAST COMPARISON: 11/26/2024 FINDINGS: Lower chest: Unremarkable. Liver: No suspicious lesion. Gallbladder/bile ducts: No bile duct enlargement. Pancreas: No organized peripancreatic collection or acute inflammatorychanges. Spleen: No suspicious lesion. Adrenal glands: Unremarkable. Kidneys, ureters, bladder: No hydronephrosis. GI tract, mesentery/peritoneum: No obstruction. Moderate stool volume.Colonic diverticulosis without evidence of acute diverticulitis. Vasculature: No evidence of aortic aneurysm. Lymph Nodes: No pathologically enlarged lymph nodes. Reproductive: Unremarkable. Musculoskeletal: No abnormal soft tissue mass or acute fracture. IMPRESSION: No acute abnormality in the abdomen or pelvis. us Kevin Lawrence P.A.-C. [facility] CT PROCEDURES Final Result * (ABNORMAL) Comprehensive Metabolic Panel (03/01/2025 4:26 AM SENSOR SPECIALIST) Potassium, P 4.0 3.6 - 5.2 mmol/L 03/01/2025 4:48 AM SENSOR SPECIALIST CNFL Sodium, P 140 135 - 145 mmol/L 03/01/2025 4:48 AM SENSOR SPECIALIST CNFL Chloride, P 107 98 - 107 mmol/L 03/01/2025 4:48 AM SENSOR SPECIALIST CNFL Bicarbonate, P 25 22 - 29 mmol/L 03/01/2025 4:48 AM SENSOR SPECIALIST CNFL Anion Gap, P 8 7 - 15 03/01/2025 4:48 AM SENSOR SPECIALIST CNFL BUN (Blood Urea Nitrogen), P 11 6 - 21 mg/dL 03/01/2025 4:48 AM SENSOR SPECIALIST CNFL Creatinine 0.89 0.59 - 1.04 mg/dL 03/01/2025 4:48 AM SENSOR SPECIALIST CNFL Estimated GFR (eGFR) 83 >=60 mL/min/BS A 03/01/2025 4:48 AM SENSOR SPECIALIST CNFL Comment: Estimated GFR calculated using the 2020 CKD_EPI creatinine equation. Calcium, Total, P 8.4(L) 8.6 - 10.0 mg/dL 03/01/2025 4:48 AM SENSOR SPECIALIST CNFL Glucose, P 93 70 - 140 mg/dL 03/01/2025 4:48 AM SENSOR SPECIALIST CNFL Protein, Total, P 6.0(L) 6.3 - 7.9 g/dL 03/01/2025 4:48 AM SENSOR SPECIALIST CNFL Albumin, P 3.8 3.5 - 5.0 g/dL 03/01/2025 4:48 AM SENSOR SPECIALIST CNFL Aspartate Aminotransferase (AST), P 17 8 - 43 U/L 03/01/2025 4:48 AM SENSOR SPECIALIST CNFL Alkaline Phosphatase, P 78 35 - 104 U/L 03/01/2025 4:48 AM SENSOR SPECIALIST CNFL Alanine Aminotransferase (ALT), P 11 7 - 45 U/L 03/01/2025 4:48 AM SENSOR SPECIALIST CNFL Bilirubin, Total, P <0.2 0.0 - 1.2 mg/dL 03/01/2025 4:48 AM SENSOR SPECIALIST CNFL Blood (Blood, Venous) 03/01/2025 4:26 AM SENSOR SPECIALIST 03/01/2025 4:35 AM SENSOR SPECIALIST us Kevin Lawrence P.A.-C. LAB BLOOD ADD-ON Final Result [facility] [address] [place] [address], [facility] CNFL [facility] [place] [address] * (ABNORMAL) CBC with Differential, Blood (03/01/2025 4:26 AM SENSOR SPECIALIST) Hemoglobin 12.0 11.6 - 15.0 g/dL 03/01/2025 4:54 AM SENSOR SPECIALIST CNFL Hematocrit 36.5 35.5 - 44.9 % 03/01/2025 4:54 AM SENSOR SPECIALIST CNFL Erythrocytes 3.79(L) 3.92 - 5.13 x10(12)/L 03/01/2025 4:54 AM SENSOR SPECIALIST CNFL MCV 96.3 78.2 - 97.9 fL 03/01/2025 4:54 AM SENSOR SPECIALIST CNFL RBC Distrib Width 12.6 12.2 - 16.1 % 03/01/2025 4:54 AM SENSOR SPECIALIST CNFL Platelet Count 365 157 - 371 x10(9)/L 03/01/2025 4:54 AM SENSOR SPECIALIST CNFL Leukocytes 8.3 3.4 - 9.6 x10(9)/L 03/01/2025 4:54 AM SENSOR SPECIALIST CNFL Neutrophils 4.22 1.56 - 6.45 x10(9)/L 03/01/2025 4:54 AM SENSOR SPECIALIST CNFL Lymphocytes 2.88 0.95 - 3.07 x10(9)/L 03/01/2025 4:54 AM SENSOR SPECIALIST CNFL Monocytes 0.67 0.26 - 0.81 x10(9)/L 03/01/2025 4:54 AM SENSOR SPECIALIST CNFL Eosinophils 0.42 0.03 - 0.48 x10(9)/L 03/01/2025 4:54 AM SENSOR SPECIALIST CNFL Basophils 0.09(H) 0.01 - 0.08 x10(9)/L 03/01/2025 4:54 AM SENSOR SPECIALIST CNFL Blood (Blood, Venous) 03/01/2025 4:26 AM SENSOR SPECIALIST 03/01/2025 4:54 AM SENSOR SPECIALIST us Kevin Lawrence P.A.-C. LAB BLOOD ADD-ON Final Result Performing Organization Address [facility]/State/[facility] Co de Phone Number [facility] [address] [place] [address], [facility] CNFL [facility] [place] [address] * (ABNORMAL) Microscopic Manual (03/01/2025 4:23 AM SENSOR SPECIALIST) White Blood Cells None Seen /hpf 03/01/2025 5:05 AM SENSOR SPECIALIST CNFL Comment: ----REFERENCE VALUE---- Males: 0-3 Females: 0-10 Unknown: 0-10 Red Blood Cells None Seen 0 - 2 /hpf 03/01/2025 5:05 AM SENSOR SPECIALIST CNFL Crystals Amorphous(A) None Seen /lpf 03/01/2025 5:05 AM SENSOR SPECIALIST CNFL Mucus Present /hpf 03/01/2025 5:05 AM SENSOR SPECIALIST CNFL Bacteria None Seen None Seen 03/01/2025 5:05 AM SENSOR SPECIALIST CNFL Urine 03/01/2025 4:23 AM SENSOR SPECIALIST 03/01/2025 4:32 AM SENSOR SPECIALIST us Kevin Lawrence P.A.-C. LAB URINE ORDERABLES Fi nal Result [facility] [address] [place] [address], [facility] CNFL [facility] [place] [address] * (ABNORMAL) Urinalysis with Microscopic if Indicated: Urine, Midstream (03/01/2025 4:23 AM SENSOR SPECIALIST) Source Urine, Urine, Midstream 03/01/2025 4:32 AM SENSOR SPECIALIST CNFL Clarity Cloudy(A) Clear 03/01/2025 4:36 AM SENSOR SPECIALIST CNFL Color Yellow 03/01/2025 4:36 AM SENSOR SPECIALIST CNFL Comment: ----REFERENCE VALUE---- Colorless Yellow Aubrie Blood Negative Negative 03/01/2025 4:36 AM SENSOR SPECIALIST CNFL Nitrite Negative Negative 03/01/2025 4:36 AM SENSOR SPECIALIST CNFL Leukocyte Esterase Negative Negative 03/01/2025 4:36 AM SENSOR SPECIALIST CNFL Protein Negative mg/dL 03/01/2025 4:36 AM SENSOR SPECIALIST CNFL Comment: ----REFERENCE VALUE---- Negative Trace Glucose Negative Negative mg/dL 03/01/2025 4:36 AM SENSOR SPECIALIST CNFL Ketones, QI(U) Negative Negative mg/dL 03/01/2025 4:36 AM SENSOR SPECIALIST CNFL Bilirubin Negative Negative 03/01/2025 4:36 AM SENSOR SPECIALIST CNFL pH 7.5 5.0 - 8.0 03/01/2025 4:36 AM SENSOR SPECIALIST CNFL Specific Dixie 1.015 1.001 - 1.035 03/01/2025 4:36 AM SENSOR SPECIALIST CNFL Urobilinogen 0.2 0.2 - 1.0 mg/dL 03/01/2025 4:36 AM SENSOR SPECIALIST CNFL Urine (Urine, Midstream) 03/01/2025 4:23 AM SENSOR SPECIALIST 03/01/2025 4:32 AM SENSOR SPECIALIST us Kevin Lawrence P.A.-C. LAB URINE ORDERABLES Fi nal Result [facility] [address] [place] [id number], [facility] CNFL [facility] in [address] [id number] documented in this encounter Visit Diagnoses Diagnosis Abdominal Pain- Primary documented in this encounter Administered Medications Inactive Administered Medications - up to 3 most recent administrations Medication Order MAR Action Action Date Dose Rate Site fentaNYL injection 25 mcg (Sublimaze) 25 mcg, intravenous, Once, On 03/01/25 at 0615, For 1 dose Given 03/01/2025 6:22 AM SENSOR SPECIALIST 25 mcg fentaNYL injection 50 mcg (Sublimaze) 50 mcg, intravenous, Once, On 03/01/25 at 0414, For 1 dose Given 03/01/2025 4:26 AM SENSOR SPECIALIST 50 mcg NaCl 0.9 % bolus 1,000 mL 1,000 mL, intravenous, at 1,000 mL/hr, Administer over 1 Hours, Once, On 03/01/25 at 0414, For 1 dose New Bag 03/01/2025 4:26 AM SENSOR SPECIALIST 1,000 mL 1000 mL/hr documented in this encounter Active and Recently Administered Medications Times are shown in SENSOR SPECIALIST. Scheduled Medication Order 02/27/2025 02/28/2025 03/01/2025 fentaNYL injection 25 mcg (Sublimaze) (COMPLETED) 25 mcg, intravenous, Once, On 03/01/25 at 0615, For 1 dose 0622 (Given - Provid er: Dakotah Balderas.S.N., R.N.) fentaNYL injection 50 mcg (Sublimaze) (COMPLETED) 50 mcg, intravenous, Once, On 03/01/25 at 0414, For 1 dose 0426 (Given - Provid er: Dakotah Balderas.S.N., R.N.) NaCl 0.9 % bolus 1,000 mL (COMPLETED) 1,000 mL, intravenous, at 1,000 mL/hr, Administer over 1 Hours, Once, On 03/01/25 at 0414, For 1 dose 0426 (New Bag - Prov ider: Marvin Balderas., R.N.)[id number] (Stopped - Provider: Marvin Balderas., R.N.) documented in this encounter Additional Health Concerns Assessment Noted Time PHQ-9 Depression Total Score: 17 07/13/ 021 3:09 PM CDT documented as of this encounter Care Teams Terrazzo Finisher Relationship Specialty Start Date End Date Elsewhere, Pcp PCP - General Internal Medicine 08/31/21 documented as of this encounter
--- OUTSIDE RECORDS SUMMARY | 2025-03-12 19:14 | XMS_ITS | Clinical Summary ---
Author Organization [facility] Address [address] [place] [id number] Care Team Providers Care Proposal Manager Name Role Phone Elsewhere, Pcp Primary Care Provider Unavailabl e Source Comments Patient records contain information from all sites at [facility]. For routine questions regarding patient records, call [phone] during business hours, M-F 8:00 AM - 5:00 PM Central Time. Record requests for emergency care only can be directed to [phone] at any time.[facility] Allergies Active Allergy Reactions Criticality Noted Date Comments Amoxicillin-Pot Clavulanate GI intolerance Medium 01/15 Ciprofloxacin GI intolerance Medium 01/24/2007 Nausea & Vomiting Clavulanic Acid GI intolerance 08/29/2023 Silicone Rash Medium 08/21/2010 Medications docusate sodium (COLACE) 100 mg capsule 2021 Active ibuprofen (ADVIL,MOTRIN) 600 mg tablet TAKE 1 TABLET BY MOUTH EVERY SIX HOURS NEEDED 30 tablet 2021 Active guaiFENesin (MUCINEX) 600 mg 12 hr tablet 600 mg orally every 12 hours for 30 days 60 tablet 1 2021 Active ketorolac (TORADOL) 10 mg tablet Take 1 tablet (10 mg total) by mouth every 4 to 6 hours as needed for pain for 5 days. Do not exceed 4 tablets per day 14 tablet 6 023 2:28 PM CDT 2021 Active azelastine (ASTELIN) 137 mcg/spray (0.1 %) nasal spray Administer 1-2 sprays into each nostril 2 (two) times a day. Use in each nostril as directed 90 mL 1 023 10:49 AM HOUSE WIRER HELPER 2021 Active ondansetron ODT (ZOFRAN-ODT) 4 mg disintegrating tablet Dissolve 1 tablet (4 mg total) in the mouth every 12 (twelve) hours. 10 tablet 2022 Active ibuprofen (MOTRIN) 600 mg tablet Take 1 tablet (600 mg total) by mouth every 6 (six) hours as needed for Pain 60 tablet 023 2:00 PM HOUSE WIRER HELPER 2022 Active acetaminophen (TYLENOL) 500 mg tablet Take 2 tablets (1,000 mg total) by mouth every 6 (six) hours as needed for Pain. 100 tablet 023 2:00 PM HOUSE WIRER HELPER 2022 Active tamsulosin (FLOMAX) 0.4 mg 24 hr capsule Take 1 capsule (0.4 mg) orally daily to prevent bladder spasm 7 capsule 023 10:18 AM CDT 2022 Active nicotine (Nicotrol) 10 mg inhaler 1 inhaled 4 to 8 times per day As Needed for nicotine cravings for 30 days 168 each 6 2022 Active phentermine-topi ramate (Qsymia) 15-92 mg capsule, ER multiphase 24 hr ext release capsule 1 cap orally every 24 hours for 90 days 90 capsule 3 2022 Active phentermine-topi ramate (Qsymia) 15-92 mg capsule, ER multiphase 24 hr ext release capsule Take 1 capsule by mouth daily. 90 capsule 2022 Active phentermine-topi ramate (Qsymia) 15-92 mg capsule, ER multiphase 24 hr ext release capsule Take 1 capsule by mouth daily. 90 capsule 2022 Active phentermine 15 mg capsule Take 1 capsule (15 mg) orally every day for 90 days; must administer 2 hours after breakfast 90 capsule 023 4:30 PM CDT 2022 Active cholecalciferol, vitamin D3, (cholecalciferol ) 25 mcg (1,000 Unit) tablet Take 50 mcg by mouth daily with breakfast. 2022 Active phenylephrine-pr amoxine-glycerin -white petrolatum (Preparation H Maximum Strength) 0.25-1 % cream 1 applic rectally 2 to 4 times per day As Needed for hemorrhoids for 30 days 51 g 3 2022 Active pseudoephedrine (Sudogest) 30 mg tablet Take 1 tablet (30 mg total) by mouth 3 (three) times a day. 24 tablet 023 12:37 PM CDT 2022 Active penicillin V potassium (VEETIDS) 500 mg tablet Take 1 tablet (500 mg total) by mouth 4 (four) times a day until gone 40 tablet 023 5:20 PM CDT 2022 Active oxyCODONE (ROXICODONE) 5 mg immediate release tablet Take 1 tablet (5 mg total) by mouth every 4 (four) hours as needed. 20 tablet 023 2:23 PM CDT 2022 Active varenicline (Chantix Continuing Month Box) 1 mg tablet Administer after eating and with a full glass of water. Maintenance (day 8 and later): 1 mg twice daily. Set gradual quit date as discussed. 112 tablet 2022 Active varenicline (Chantix Starting Month Box) 0.5 mg (11)- 1 mg (42) tablet Administer after eating and with a full glass of water. Initial: Days 1 to 3: 0.5 mg once daily. Days 4 to 7: 0.5 mg twice daily. Maintenance (day 8 and later): 1 mg twice daily. Set gradual quit date as discussed. 53 tablet 023 12:20 PM HOUSE WIRER HELPER 2022 Active fluticasone propionate (Flonase) 50 mcg/actuation nasal spray Administer 2 sprays into each nostril daily for 10 days. 16 g 12 024 10:42 AM CDT 2022 Active doxepin (SILENOR) 3 mg tablet Take 1 tablet (3 mg total) by mouth at bedtime as needed. 90 tablet 3 2023 Active doxepin (SINEquan) 10 mg/mL concentrated solution Take 0.3 mL (3 mg total) by mouth at bedtime as needed for insomnia 120 mL 1 024 4:53 PM CDT 2023 Active azelastine (ASTELIN) 137 mcg/spray (0.1 %) nasal spray Administer 1-2 sprays into each nostril 2 (two) times a day. 30 mL 1 024 3:58 PM CDT 2023 Active hydrOXYzine (VistariL) 25 mg capsule Take 1 capsule (25 mg total) by mouth 3 (three) times a day as needed for nausea. 90 capsule 11 024 3:54 PM CDT 2023 Active nicotine (Nicotrol NS) 10 mg/mL nasal spray Administer 1 spray intranasally every 60 minutes As Needed for nicotine cravings; administer into each nostril. DO NOT EXCEED 40 DOSES (80 SPRAYS) PER DAY 40 mL 1 024 1:03 PM CDT 2023 Active phentermine 15 mg capsule Take 1 capsule (15 mg total) by mouth daily. Take at least 2 hours after breakfast. 90 capsule 1 9:55 AM CDT 2023 Active diclofenac sodium (Voltaren) 1 % gel Apply 2 g topically to left foot four times daily for 14 days; apply to single left foot 100 g 024 1:17 PM CDT 2023 Active ondansetron ODT (Zofran-ODT) 4 mg disintegrating tablet Dissolve 1 tablet (4 mg total) in the mouth every 6 to 8 hours as needed for nausea/vomiting. 15 tablet 6 025 4:11 PM CDT 2023 Active ondansetron ODT (Zofran-ODT) 4 mg disintegrating tablet Dissolve 1 tablet (4 mg total) in the mouth every 6 to 8 hours as needed for nausea or vomiting. 30 tablet 6 025 3:37 PM HOUSE WIRER HELPER 2023 Active albuterol 90 mcg/actuation inhaler Inhale 2 puffs every 4 to 6 hours as needed for wheezing or shortness of breath. 18 g 1 024 10:10 AM CDT 2023 Active cetirizine (ZyrTEC) 10 mg tablet Take 1 tablet (10 mg total) by mouth daily as needed. 90 tablet 3 025 3:38 PM HOUSE WIRER HELPER 2023 Active fluticasone propionate (Flonase) 50 mcg/actuation nasal spray Administer 1-2 sprays into each nostril daily. 48 g 3 024 3:44 PM HOUSE WIRER HELPER 2023 Active benzonatate (Tessalon Perles) 100 mg capsule Take 1 capsule (100 mg total) by mouth 3 (three) times a day as needed for cough. 20 capsule 025 3:28 PM HOUSE WIRER HELPER 2024 Active doxycycline monohydrate (Monodox) 100 mg capsule Take 1 capsule (100 mg total) by mouth 2 (two) times a day. 20 capsule 025 4:19 PM HOUSE WIRER HELPER 2024 Active phenazopyridine (Pyridium) 200 mg tabletIndication s:Acute Cystitis Without Hematuria Take 1 tablet (200 mg total) by mouth 3 (three) times a day as needed for painful urination. 9 tablet 025 9:42 AM HOUSE WIRER HELPER 2024 Active nitrofurantoin monohydrate (Macrobid) 100 mg capsuleIndicatio ns:Acute Cystitis Without Hematuria Take 1 capsule (100 mg total) by mouth 2 (two) times a day. 10 capsule 2024 Active lidocaine 3 % cream 1 application topically twice a day As Needed for pain 28.35 g 2024 Active hydrocortisone (Anusol-HC) 25 mg suppository Insert 1 suppository (25 mg total) into the rectum 2 (two) times a day. 10 suppository 2024 Active hydrocortisone (Hytone) 2.5 % cream Apply topically 2 (two) times a day for hemorrhoids. 30 g 025 3:56 PM HOUSE WIRER HELPER 2024 Active oxyCODONE (Roxicodone) 5 mg immediate release tablet Take 1 tablet (5 mg total) by mouth every 8 (eight) hours as needed for pain. 21 tablet 025 10:27 AM HOUSE WIRER HELPER 2024 Active ondansetron ODT (Zofran-ODT) 8 mg disintegrating tablet Dissolve 1 tablet (8 mg total) in the mouth every 6 to 8 hours as needed for nausea or vomiting. 30 tablet 6 025 3:38 PM HOUSE WIRER HELPER 2024 Active cyanocobalamin (Vitamin B-12) 1,000 mcg/mL injection Inject 1 mL (1000 mcg) intramuscularly WEEKLY for 60 days 8 mL 3:50 PM HOUSE WIRER HELPER 2024 Active IM & 04/18 Injection Kit Use as directed to inject prescribed medication. 1 kit = 15-3mL syr: 23G &04/18, 15-23G &04/18 needles, 30 alcohol wipes 1 each 3:50 PM HOUSE WIRER HELPER 2024 Active hydrOXYzine (VistariL) 25 mg capsule Take 1 capsule (25 mg total) by mouth 3 (three) times a day as needed for anxiety. 90 capsule 3:45 PM CDT 2024 Active sertraline (Zoloft) 50 mg tablet Take 0.5 tablets (25 mg total) by mouth daily for 14 days, THEN 1 tablet (50 mg total) daily. 30 tablet 1 3:45 PM CDT 2024 Active magnesium oxide (Mag-Ox) 400 mg (241.3 mg magnesium) tablet Take 1 tablet (400 mg total) by mouth daily. 120 tablet 4:11 PM CDT 2024 Active topiramate (Topamax) 100 mg tablet Take 1 tablet (100 mg total) by mouth daily in addition to a 25 mg tablet for a total of 125 mg daily. 90 tablet 3 3:45 PM HOUSE WIRER HELPER 2024 Active topiramate (Topamax) 25 mg tablet Take 1 tablet (25 mg total) by mouth daily in addition to a 100 mg tablet for a total of 125 mg daily. 90 tablet 3 3:16 PM HOUSE WIRER HELPER 2024 Active amitriptyline 2 % gabapentin 5 % ketamine 5 % in lipoderm Apply topically 2 (two) times a day. Apply to bilateral feet. 60 g 1 2024 Active nicotine (Nicoderm CQ) 21 mg/[address] 1 patch on the skin daily. Remove old patch. 28 patch 2024 Active polyethylene glycol-electroly noemi (Golytely) 236-22.74-6.74 -5.86 gram solution Take first portion of the prep at 4pm the evening before and start second portion 3 to 6 hours before and finish 2 hours prior to report time. 4000 mL 4:23 PM CDT 2024 Active DULoxetine (Cymbalta) [address] capsule Take 1 capsule (60 mg total) by mouth daily. 90 capsule 3 3:14 PM CDT 2024 Active ondansetron ODT (Zofran-ODT) 8 mg disintegrating tablet Dissolve 1 tablet (8 mg total) in the mouth every 8 hours as needed for nausea and vomiting. 90 tablet 1:56 PM CDT 2024 Active magnesium oxide (Mag-Ox) 400 mg (241.3 mg magnesium) tablet Take 1 tablet (400 mg total) by mouth daily. 120 tablet 3 4:08 PM CDT 2024 Active buprenorphine HCL (Belbuca) 75 mcg film per Buccal Film Place 1 film against the inside of the cheek, holding in place for 5 seconds, 2 times every day. 30 Film 1:56 PM CDT 2024 Active DULoxetine (Cymbalta) [address] capsule Take 1 capsule (30 mg total) by mouth daily. Take along with a 60 mg capsule for a total of 90 mg daily. 90 capsule 3 10:40 AM CDT 2024 Active buprenorphine (Butrans) 7.5 mcg/hour Place 1 patch on the skin every 7 (seven) days. 4 patch 1:03 PM CDT 2024 Active ondansetron ODT (Zofran-ODT) 4 mg disintegrating tablet Dissolve 1 tablet (4 mg total) in the mouth every 6 to 8 hours as needed for nausea or vomiting. 45 tablet 6 025 4:16 PM HOUSE WIRER HELPER 2024 Active buPROPion (Wellbutrin SR) 150 mg 12 hr tablet Take 1 tablet (150 mg total) by mouth 2 (two) times a day. 180 tablet 3 4:03 PM HOUSE WIRER HELPER 2024 Active pregabalin (Lyrica) 75 mg capsule Take 1 capsule (75 mg total) by mouth 2 (two) times a day. 60 capsule 025 3:[address] [facility] 2024 Active ondansetron (Zofran) 4 mg tablet Take 1 tablet (4 mg total) by mouth every 8 (eight) hours as needed for nausea or vomiting. 20 tablet 025 3:[address] [facility] 2024 Active famotidine (PEPCID) 10 mg tablet TAKE 1 TABLET BY MOUTH TWO TIMES A DAY 60 tablet 01/05 Discontinued ferrous sulfate 324 mg (65 mg iron) DR tablet TAKE 1 TABLET BY MOUTH DAILY 100 tablet 01/05 Discontinued labetaloL (NORMODYNE) 100 mg tablet TAKE 2 TABLETS BY MOUTH TWO TIMES A DAY 120 tablet 01/05 Discontinued metoclopramide (REGLAN) 10 mg tablet TAKE 1 TABLET BY MOUTH THREE TIMES A DAY NEEDED 30 tablet 3 01/05 Discontinued buPROPion (Wellbutrin SR) 150 mg 12 hr tablet Take 1 tablet (150 mg total) by mouth daily for 3 days, THEN 1 tablet (150 mg total) 2 (two) times a day. Start 1 to 2 weeks prior to quit date. 180 tablet 3 025 4:[address] [facility] 02/21 Discontinued( Therapy completed) gabapentin (Neurontin) 100 mg capsule Take 1 capsule (100 mg total) by mouth 3 (three) times a day. 90 capsule 025 3:[address] [facility] 06/13 Discontinued( Side effects) DULoxetine (Cymbalta) [address] capsule Take 1 capsule (30 mg total) by mouth daily for 7 days, THEN 2 capsules (60 mg total) daily for 21 days. 49 capsule 025 2:59 PM CDT 02/21 Discontinued( Duplicate order) pregabalin (Lyrica) 50 mg capsule Take 1 capsule (50 mg total) by mouth 2 (two) times a day. 60 capsule 5 025 3:23 PM CDT 03/12 Discontinued( Dose adjustment) buPROPion (Wellbutrin SR) 150 mg 12 hr tablet 150 mg orally once 90 tablet 3 02/21 Discontinued( Error) Active Problems Problem Noted Date Diagnosed Date [...] (12/05/2019): Added automatically from request for surgery [id number] Encounters Date Type Department Care Team Description 03/01/2025 3:53 AM HOUSE WIRER HELPER - 03/01/2025 6:31 AM HOUSE WIRER HELPER Emergency [facility] [address] [place] [phone] Kevin Lawrence, P.A.-C. Abdominal Pain (Primary Dx) Discharge Disposition: Home or Self Care 02/27/2025 1:22 PM HOUSE WIRER HELPER - 02/27/2025 1:54 PM HOUSE WIRER HELPER Emergency [facility] [address] [place] [phone] Harshad Lang P.A.-C., P.A. Migraine Headache (Primary Dx); Nausea Discharge Disposition: Home or Self Care 12/17/2024 12:36 PM CDT - 12/17/2024 11:59 PM CDT Hospital Encounter Department of Neurology in [place], [place] [address] [place] [phone] Yanira Casey M.D. Pain Leg Bilateral Discharge Disposition: Home or Self Care 12/17/2024 8:32 AM CDT - 12/17/2024 12:35 PM CDT Hospital Encounter Department of Neurology in [place], [place] [address] [place] [phone] Yanira Casey M.D. Pain Leg Bilateral Discharge Disposition: Home or Self Care from Last 3 Months Immunizations Immunization Administration [...] Family History Medical History Relation Name Comments Asthma Daughter Nicole Headache Father 1 Hypertension Father 1 Diabetes Mother 1 Liver Mother 1 Liver failure Depression Mother 2 Nurys Breast cancer (in one breast) Mother's Sister Misa Coronary artery disease Paternal Grandfather Rober Asthma Sister Anesthesia problems Neg Hx Cataracts Neg Hx Glaucoma Neg Hx Macular degeneration Neg Hx Relation Name Status Comments Daughter Nicole Alive Father 1 Father 2 Matt Mother 1 Mother 2 Nurys Mother's Sister Misa Alive Paternal Grandfather Rober Alive Sister Social History Tobacco Use Types Packs/Day Years Used Date Smoking Tobacco: Every Day Cigarettes 0.5 17.9 Started: 2007 Smokeless Tobacco: Never Tobacco Cessation:Ready to Q uit: Not Asked; Counseling Given: Not Answered Comments:1/2 or less pack/d, trying to quit Alcohol Use Standard Drinks/Week Comments Not Currently 0 (1 standard drink = 0.6 oz pur e alcohol) occasional [facility] Utilities Answer Date Recorded In the past 12 months has e iwi, gas, oil, or water [employer] threatened to shut off services in your [...] money to buy more. Never true 08/31/19 Within the past 12 months, t he [...] AM CDT Legal Sex Female 9:27 AM HOUSE WIRER HELPER Gender Identity Female 11/17/2019 7:18 AM CDT Sexual Orientation Straight 11/17/2019 7: 18 AM CDT Last Filed Vital Signs Vital Sign Reading Time Taken Comments Blood Pressure 101/69 03/01/2025 6:26 AM HOUSE WIRER HELPER Pulse 83 03/01/2025 6:27 AM HOUSE WIRER HELPER Temperature 36.8 C (98.2 F) 03/01/2025 4:02 AM HOUSE WIRER HELPER Respiratory Rate 16 03/01/2025 4:02 AM HOUSE WIRER HELPER Oxygen Saturation 97% 03/01/2025 6:27 AM HOUSE WIRER HELPER Inhaled Oxygen Concentration - - Weight 79.3 kg (174 lb 13.2 oz) 03/01/2025 4:03 AM HOUSE WIRER HELPER Height 157.5 cm (5' 2) 11/26/2024 7:06 AM CDT Body Mass Index 31.98 11/26/2024 7:06 AM CDT Plan of Treatment Health Maintenance Due Date Last Done Comments Generalized Anxiety (KATIA-7) 1982 Mammogram 1982 HPV Vaccines (2 - 3-dose series) 04/14/2009 03/17/2009 Pneumococcal vaccine (0-49 years) (2 of 2 - PCV) 08/27/2011 08/26/2010 Asthma Action Plan 12/06/2019 Asthma Control Test Questionnaire 12/06/2019 Asthma Management/Exacerbation Questionnaire (AMQ/AEQ) 12/06/2019 Depression Screening (Annual PHQ-2) 04/17/2024 COVID-19 Vaccine ( season) 2024 05/03/2021, 12/16/2020 Controlled Substance Agreement 12/18/2024 Controlled Substance Monitoring (PHQ-9) 12/18/2024 Controlled Substance Monitoring (UDS) 12/18/2024 Opioid Risk Tool (ORT) 12/18/2024 PEG assessment for Opioid therapy 12/18/2024 Lipid (Cholesterol) Screening 07/08/2025 07/08/2020, 06/13/2013 DTaP,Tdap,and Td Vaccines (5 - Td or Tdap) 04/19/2031 04/19/2021, 12/05/2013, 06/13/2013, Additional history exists Cervical/Vaginal Cancer Screening Discontinued 11/19/2021, 07/08/2020, 06/13/2014, Additional history exists HIV Screening Completed 08/23/2024, 07/08/2020 Hepatitis B Screening Discontinued 08/23/2024 Influenza Vaccine Completed 01/21/2025, , 02/07/2023, Additional history exists IPV Vaccines Aged Out No longer eligi ble based on patient's age to complete this topic Procedures Procedure Name Priority Date/Time Associated Diagnosis Comments CT ABDOMEN PELVIS WITHOUT IV CONTRAST RAD - Semiurgent (Fast; most ED patients; some inpatients) 03/01/2025 4:55 AM HOUSE WIRER HELPER COMPREHENSIVE METABOLIC PANEL, S/P STAT 03/01/2025 4:26 AM HOUSE WIRER HELPER CBC WITH DIFFERENTIAL, B STAT 03/01/2025 4:26 AM HOUSE WIRER HELPER HC URINALYSIS AUTO W MICRO STAT 03/01/2025 4:23 AM HOUSE WIRER HELPER URINALYSIS WITH MICROSCOPIC IF INDICATED, U STAT 03/01/2025 4:23 AM HOUSE WIRER HELPER AUTONOMIC REFLEX SCREEN Routine 12/17/2024 2:02 PM CDT Pain Leg Bilateral EMG Routine 12/17/2024 8:32 AM CDT Pain Leg Bilateral HIV-1/-2 AG AND AB SCREEN, PLASMA Timed 08/23/2024 1:47 PM CDT HEPATITIS B SURFACE ANTIGEN Timed 08/23/2024 1:46 PM CDT THINPREP SCREEN HPV REFLEX Routine 07/08/2020 11:15 AM CDT Pap Smear Examination LIPID PANEL, S Routine 07/08/2020 11:08 AM CDT Screening Lipid from Last 3 Months or Most Recently Relevant to Health Maintenance Results * CT Abdomen Pelvis without IV Contrast (03/01/2025 4:55 AM HOUSE WIRER HELPER) Anatomical Region Laterality Modality Abdomen, Pelvis, Abdominal R ST LOS, Abdominal ARZ LOS, Abdominal FLA LOS N/A Computed Tomography 03/01/2025 4:55 AM HOUSE WIRER HELPER Impressions 03/01/2025 6:01 AM HOUSE WIRER HELPER No acute abnormality in the abdomen or pelvis. Narrative 03/01/2025 6:01 AM HOUSE WIRER HELPER EXAM: CT ABDOMEN PELVIS WITHOUT IV CONTRAST [...] abdomen or pelvis. us Kevin Lawrence P.A.-C. IMG CT PROCEDURES Final Result * (ABNORMAL) CBC with Differential, Blood (03/01/2025 4:26 AM HOUSE WIRER HELPER) [facility] Hemoglobin 12.0 11.6 - 15.0 g/dL 03/01/2025 4:54 AM HOUSE WIRER HELPER [facility] Hematocrit 36.5 35.5 - 44.9 % 03/01/2025 4:54 AM HOUSE WIRER HELPER [facility] Erythrocytes 3.79(L) 3.92 - 5.13 x10(12)/L 03/01/2025 4:54 AM HOUSE WIRER HELPER [facility] MCV 96.3 78.2 - 97.9 fL 03/01/2025 4:54 AM HOUSE WIRER HELPER [facility] RBC Distrib Width 12.6 12.2 - 16.1 % 03/01/2025 4:54 AM HOUSE WIRER HELPER [facility] Platelet Count 365 157 - 371 x10(9)/L 03/01/2025 4:54 AM HOUSE WIRER HELPER [facility] Leukocytes 8.3 3.4 - 9.6 x10(9)/L 03/01/2025 4:54 AM HOUSE WIRER HELPER [facility] Neutrophils 4.22 1.56 - 6.45 x10(9)/L 03/01/2025 4:54 AM HOUSE WIRER HELPER [facility] Lymphocytes 2.88 0.95 - 3.07 x10(9)/L 03/01/2025 4:54 AM HOUSE WIRER HELPER [facility] Monocytes 0.67 0.26 - 0.81 x10(9)/L 03/01/2025 4:54 AM HOUSE WIRER HELPER [facility] Eosinophils 0.42 0.03 - 0.48 x10(9)/L 03/01/2025 4:54 AM HOUSE WIRER HELPER [facility] Basophils 0.09(H) 0.01 - 0.08 x10(9)/L 03/01/2025 4:54 AM HOUSE WIRER HELPER [facility] Blood (Blood, Venous) 03/01/2025 4:26 AM HOUSE WIRER HELPER 03/01/2025 4:54 AM HOUSE WIRER HELPER Kevin Lawrence P.A.-C. LAB BLOOD ADD-ON Final Result [facility] [address] [place] [id number], [facility] in [address] [address] * (ABNORMAL) Comprehensive Metabolic Panel (03/01/2025 4:26 AM HOUSE WIRER HELPER) Potassium, P 4.0 3.6 - 5.2 mmol/L 03/01/2025 4:48 AM HOUSE WIRER HELPER [facility] Sodium, P 140 135 - 145 mmol/L 03/01/2025 4:48 AM HOUSE WIRER HELPER [facility] Chloride, P 107 98 - 107 mmol/L 03/01/2025 4:48 AM HOUSE WIRER HELPER [facility] Bicarbonate, P 25 22 - 29 mmol/L 03/01/2025 4:48 AM HOUSE WIRER HELPER [facility] Anion Gap, P 8 7 - 15 03/01/2025 4:48 AM HOUSE WIRER HELPER [facility] BUN (Blood Urea Nitrogen), P 11 6 - 21 mg/dL 03/01/2025 4:48 AM HOUSE WIRER HELPER [facility] Creatinine 0.89 0.59 - 1.04 mg/dL 03/01/2025 4:48 AM HOUSE WIRER HELPER [facility] Estimated GFR (eGFR) 83 >=60 mL/min/BS A 03/01/2025 4:48 AM HOUSE WIRER HELPER [facility] Comment: Estimated GFR calculated using the 2020 CKD_EPI creatinine equation. Calcium, Total, P 8.4(L) 8.6 - 10.0 mg/dL 03/01/2025 4:48 AM HOUSE WIRER HELPER [facility] Glucose, P 93 70 - 140 mg/dL 03/01/2025 4:48 AM HOUSE WIRER HELPER [facility] Protein, Total, P 6.0(L) 6.3 - 7.9 g/dL 03/01/2025 4:48 AM HOUSE WIRER HELPER [facility] Albumin, P 3.8 3.5 - 5.0 g/dL 03/01/2025 4:48 AM HOUSE WIRER HELPER [facility] Aspartate Aminotransferase (AST), P 17 8 - 43 U/L 03/01/2025 4:48 AM HOUSE WIRER HELPER [facility] Alkaline Phosphatase, P 78 35 - 104 U/L 03/01/2025 4:48 AM HOUSE WIRER HELPER [facility] Alanine Aminotransferase (ALT), P 11 7 - 45 U/L 03/01/2025 4:48 AM HOUSE WIRER HELPER [facility] Bilirubin, Total, P <0.2 0.0 - 1.2 mg/dL 03/01/2025 4:48 AM HOUSE WIRER HELPER [facility] Blood (Blood, Venous) 03/01/2025 4:26 AM HOUSE WIRER HELPER 03/01/2025 4:35 AM HOUSE WIRER HELPER Kevin Lawrence P.A.-C. LAB BLOOD ADD-ON Final Result [facility] [address] [place] [id number], [facility] [place] [address] * (ABNORMAL) Urinalysis with Microscopic if Indicated: Urine, Midstream (03/01/2025 4:23 AM HOUSE WIRER HELPER) Source Urine, Urine, Midstream 03/01/2025 4:32 AM HOUSE WIRER HELPER [facility] Clarity Cloudy(A) Clear 03/01/2025 4:36 AM HOUSE WIRER HELPER [facility] Color Yellow 03/01/2025 4:36 AM HOUSE WIRER HELPER [facility] Comment: ----REFERENCE VALUE---- Colorless Yellow [place] Blood Negative Negative 03/01/2025 4:36 AM HOUSE WIRER HELPER [facility] Nitrite Negative Negative 03/01/2025 4:36 AM HOUSE WIRER HELPER [facility] Leukocyte Esterase Negative Negative 03/01/2025 4:36 AM HOUSE WIRER HELPER [facility] Protein Negative mg/dL 03/01/2025 4:36 AM HOUSE WIRER HELPER [facility] Comment: ----REFERENCE VALUE---- Negative Trace Glucose Negative Negative mg/dL 03/01/2025 4:36 AM HOUSE WIRER HELPER CN[facility] Ketones, QI(U) Negative Negative mg/dL 03/01/2025 4:36 AM HOUSE WIRER HELPER [facility] Bilirubin Negative Negative 03/01/2025 4:36 AM HOUSE WIRER HELPER CN[facility] pH 7.5 5.0 - 8.0 03/01/2025 4:36 AM HOUSE WIRER HELPER CN[facility] Specific [place] 1.015 1.001 - 1.035 03/01/2025 4:36 AM HOUSE WIRER HELPER CN[facility] Urobilinogen 0.2 0.2 - 1.0 mg/dL 03/01/2025 4:36 AM HOUSE WIRER HELPER CN[facility] Urine (Urine, Midstream) 03/01/2025 4:23 AM HOUSE WIRER HELPER 03/01/2025 4:32 AM HOUSE WIRER HELPER Kevin Lawrence P.A.-C. LAB URINE ORDERABLES Fi nal Result Performing Organization Address [facility] Co de Phone Number [facility] [address] [place] [address], [place] [address] * (ABNORMAL) Microscopic Manual (03/01/2025 4:23 AM HOUSE WIRER HELPER) White Blood Cells None Seen /hpf 03/01/2025 5:05 AM HOUSE WIRER HELPER [facility] Comment: ----REFERENCE VALUE---- Males: 0-3 Females: 0-10 Unknown: 0-10 Red Blood Cells None Seen 0 - 2 /hpf 03/01/2025 5:05 AM HOUSE WIRER HELPER [facility] Crystals Amorphous(A) None Seen /lpf 03/01/2025 5:05 AM HOUSE WIRER HELPER [facility] Mucus Present /hpf 03/01/2025 5:05 AM HOUSE WIRER HELPER [facility] Bacteria None Seen None Seen 03/01/2025 5:05 AM HOUSE WIRER HELPER [facility] Urine 03/01/2025 4:23 AM HOUSE WIRER HELPER 03/01/2025 4:32 AM HOUSE WIRER HELPER Kevin Lawrence P.A.-C. LAB URINE ORDERABLES Fi nal Result Performing Organization Address City/[facility]/ZIP Co de Phone Number [facility] [address] [place] [address], [place] [address] * Autonomic reflex Screen (12/17/2024 2:02 PM CDT) 12/17/2024 1:15 PM CDT Narrative [facility] CORRY AUTO - 12/17/2024 3:40 PM CDT FINAL REPORT AUTONOMIC REFLEX SCREEN 862 Age: 44 Location: [facility] #: [id number] Dulce Lei Sex: F Order ID: [id number] Date: 12/17/2024 : 1980 Autonomic Marina Dry Dock Manager: Joby Dean M.D. CONCLUSION There is evidence of focal postganglionic sympathetic sudomotor impairment while cardiovagal and cardiovascular adrenergic function were preserved. These findings can be seen with medication effects (pregabalin, topiramate, cetirizine), local skin factors, or a limited autonomic (sudomotor) neuropathy, depending on clinical context. QUANTITATIVE AXON REFLEX SWEAT TEST (QSWEAT) Test Latency Sweat Output Sweat Output Normal Cutoff Side Site Current Duration (min) (uL) 5th (10th) Percentile (mA) (min) L Forearm 2 10 1.2 0.22 F: 0.08 (0.13) L Proximal Leg 2 10 1.6 0.14 F: 0.19 (0.31) L Distal Leg 2 10 1.9 0.20 F: 0.14 (0.23) L Foot 2 10 2.1 0.16 F: 0.07 (0.14) Comments on Sudomotor Test: QSART responses were reduced at the proximal leg and normal at all other sites. DEEP BREATHING & VALSALVA MANEUVER RESPONSES Result Normal Cutoff Deep Breathing Heart Rate Range (bpm) 38.2 > 10 Valsalva Maneuver Valsalva Ratio 1.98 > 1.36 Comments on Deep Breathing: Heart rate responses to deep breathing were normal. Comments on Valsalva maneuver: (A) Heart rate responses to the Valsalva maneuver were normal. (B) [id number] blood pressure responses to the Valsalva maneuver were normal. BLOOD PRESSURE AND HEART RATE RESPONSES TO TILT BP (mmHg) Heart Rate (BPM) Supine 102/68 76 Tilt 1 min 94/68 88 Tilt 2 min 102/74 87 Tilt 3 min 98/70 88 Tilt 5 min 104/74 89 Tilt 10 min 106/72 95 Comments on Tilt: Patient was tilted for 10 minutes. Orthostatic hypotension was not detected. Heart rate response was normal. The patient reported initial lightheadedness. -99 = missing value us Yanira Leo M.D. NEUROLOGY ORDE RABLES Final Result CORRY AUTO * EMG (12/17/2024 8:32 AM CDT) 12/17/2024 9:1 5 AM CDT Narrative EMG - 12/17/2024 11:39 AM CDT Table formatting from the original result was not included. 17-Dec-2024 Electromyography Final Report Study Number: 2 EMG Marina Dry Dock Manager: Samy Key 127 or [phone] Referred by: YANIRA LEO (127 or [phone]) Referred for: f/u PN, lumbar radic Referral Code: 022 RX: 001 SUMMARY: Prior to starting the procedure, the patient's identity was verified, pertinent available records were reviewed, the nature of the procedure was explained, the appropriate sites of the exam were confirmed directly with the patient, and a pre-procedure pause was performed for final verification of all of the above. The left lower limb nerve conduction studies are normal. The left lower limb needle electromyography is normal. CLINICAL INTERPRETATION: Normal study. There is no electrodiagnostic evidence of large fiber peripheral neuropathy or left lumbosacral radiculopathy. Compared to the previous EMG from 08/30/2024, there are no significant changes. I have reviewed the findings of the examining physician and agree with the interpretation. Savannah Nino/Luis Key (127 or [phone])/SMB NERVE CONDUCTIONS Record Rep Normal Normal Distal Normal F-Wave F-Wave Temp Nerve Type Site Stim Side Amp Amp CV CV Lat Lat Lat Est ( C) Fibular Motor EDB L 6.2 (> 2.0) 45 (> 41) 3.5 (< 6.6) 43.1 48.4 30.1 Tibial Motor AH L 7.8 (> 4.0) 53 (> 40) 4.0 (< 6.1) 43.3 43.8 30.3 Medial plantar Sensory Ankle L 12 (> 7.0) (> 46) 2.7 (< 4.0) 31.0 Remark: Moved G1 Ulnar Motor ADM L 8.9 (> 6.0) 62 (> 51) 2.3 (< 3.6) 24.0 23.6 34.9 Median Sensory Dig II L 31 (> 15.0) 58 (> 56) 3.0 (< 3.6) 34.5 NEEDLE EMG Ins Spont MUP Recruitment Duration Amplitude Phases Muscle Side Act Fib Fasc Normal Activ Reduced Rapid Long Short High Low % Turns Lumbar paraspinal (lower) L NL 0 0 NL Gluteus herrera L NL 0 0 NL Tensor fasciae latae L NL 0 0 NL Vastus medialis L NL 0 0 NL Gastrocnemius (medial head) L NL 0 0 NL Tibialis anterior L NL 0 0 NL This interpretation has been electronically signed: Samy Key M.D. at 12/17/2024 11:38:45 AM CDT Procedure Note Luis Key M.D. - 12/17/2024 17-Dec-2024 Electromyography Final Report Study Number: 2 EMG [employer] Manager: Samy Key 127 or [phone] Referred by: YANIRA LEO (127 or [phone]) Referred for: f/u PN, lumbar radic Referral Code: 022 RX: 001 SUMMARY: Prior to starting the procedure, the patient's identity wasverified, pertinent available records were reviewed, the nature of theprocedure was explained, the appropriate sites of the exam were confirmeddirectly with the patient, and a pre-procedure pause was performed forfinal verification of all of the above. The left lower limb nerve conduction studies are normal. The left lower limb needle electromyography is normal. CLINICAL INTERPRETATION: Normal study. There is no electrodiagnosticevidence of large fiber peripheral neuropathy or left lumbosacralradiculopathy. Compared to the previous EMG from 08/30/2024, there are nosignificant changes. I have reviewed the findings of the examining physician and agree with theinterpretation. Savannah Nino/Luis Key (127 or [phone])/SMB NERVE CONDUCTIONS Record Rep Normal Normal Distal Normal F-Wave F-Wave Temp Nerve Type Site Stim Side Amp Amp CV CV Lat Lat Lat Est ( C) Fibular Motor EDB L 6.2 (> 2.0) 45 (> 41) 3.5 (< 6.6) 43.1 48.4 30.1 Tibial Motor AH L 7.8 (> 4.0) 53 (> 40) 4.0 (< 6.1) 43.3 43.8 30.3 Medial plantar Sensory Ankle L 12 (> 7.0) (> 46) 2.7 (< 4.0) 31.0 Remark: Moved G1 Ulnar Motor ADM L 8.9 (> 6.0) 62 (> 51) 2.3 (< 3.6) 24.0 23.6 34.9 Median Sensory Dig II L 31 (> 15.0) 58 (> 56) 3.0 (< 3.6) 34.5 NEEDLE EMG Ins Spont MUP Recruitment Duration Amplitude Phases Muscle Side Act Fib Fasc Normal Activ Reduced Rapid Long Short High Low %Turns Lumbar paraspinal (lower) L NL 0 0 NL Gluteus herrera L NL 0 0 NL Tensor fasciae latae L NL 0 0 NL Vastus medialis L NL 0 0 NL Gastrocnemius (medial head) L NL 0 0 NL Tibialis anterior L NL 0 0 NL This interpretation has been electronically signed: Samy Key M.D. at 12/17/2024 11:38:45 AM CDT us Yanira Leo M.D. NEUROLOGY [place] [facility] THOMPSON Edited Result - Final Performing Organization Address City/State/[facility] Phone Number [facility] EMG * HIV-1/-2 Ag and Ab Screen, Plasma (08/23/2024 1:47 PM CDT) HIV-1/-2 Ag and Ab Screen, P Negative Negative 08/23/2024 8:32 PM CDT [facility] Comment: Negative result does not rule out HIV infection. If exposure to HIV infection occurred <14 days ago, contact the laboratory to request addition of HIV-1/HIV-2 RNA detection, Plasma (HIP12). Blood (Blood, Venous) 08/23/2024 1:47 PM CDT 08/23/2024 6:19 PM CDT us Walter Merrill P.A.-C. LAB MICROBIOLOGY - BLOOD O RDERABLES Final Result Performing Organization Address City/State/[facility] Co de Phone Number [facility] [address] [place] [address] [facility] [address] [place] [address] * Hepatitis B Surface Antigen (08/23/2024 1:46 PM CDT) HBs Antigen, S Negative Negative 08/23/2024 8:26 PM CDT [facility] Blood (Blood, Peripheral Draw) 08/23/2024 1:46 PM CDT 08/23/2024 6:19 PM CDT us Walter Merrill P.A.-C. LAB MICROBIOLOGY - BLOOD O RDERABLES Final Result Performing Organization Address [facility] Co de Phone Number [facility] [address] [place] [address] [facility] [address] [place] [address] * ThinPrep Screen HPV Reflex (07/08/2020 11:15 [...] LAB PAP PATHDX ORDERABLES F inal Result Performing Organization Address [facility]/ZIP Co de Phone Number [facility] [address] [place] [address], [facility] ECLR [facility] [place] [address] [place] [address] * (ABNORMAL) Lipid Panel (07/08/2020 11:08 AM [...] M.D. LAB BLOOD ADD-ON Final Resu lt Performing Organization Address City/[facility]/ZIP Co de Phone Number [facility] [address] [place] [address], [place] CN[facility] in [address] [address] from Last 3 Months or Most Recently Relevant to Health Maintenance Insurance [facility] [place] [id number] CHARAN MONTANO [id number] Care Teams Proposal Manager Relationship Specialty Start Date End Date Elsewhere, Pcp PCP - General Internal Medicine 08/31/21
--- OUTSIDE RECORDS SUMMARY | 2025-03-12 19:15 | XMS_ITS | Clinical Summary ---
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 Gender Identity Not on file Sexual Orientation [...] Health Maintenance Due Date Last Done Comments Tetanus booster 1993 Depression screening for age 12+ 1994 HIV for age 15-65 1997 BMI (ht and wt on same day) for age 18+ 2000 Hepatitis C screening for ag e 18-79 2000 Hepatitis B series for 19+ ( 1 of 3 - 19+ 3-dose series) 2001 HPV series for age 9-45 (1 - 3-dose SCDM series) 2009 Pap test for age 21-65 11/19/2024 2, 04/29/2013 Influenza Vaccine (#1) 2024 RSV vaccine for adults or (1 - 1-dose 75+ series) 2057 Pneumococcal series for age 6-49 Aged Out No longer eligible b ased on patient's age to complete this topic Procedures Procedure Name Priority Date/Time Associated Diagnosis Comments LEARNING PROGRAM MANAGER THIN PREP PAP SCREEN IMAGED Routine 11/19/2021 11:34 AM CDT from Last 3 Months or Most Recently Relevant to Health Maintenance Results * LEARNING PROGRAM MANAGER THIN PREP PAP SCREEN IMAGED (11/19/2021 11:34 AM CDT) Case Report Gynecologic Cytology Report Case: [id number] Authorizing Provider: Alia Roberts NP Collected: 11/19/2021 1134 Ordering Location: [facility] Received: 11/22/2021 1537 First Screen: Rafael Kurtz Specimen: LEARNING PROGRAM MANAGER ThinPrep Vial Screening, Cervical/Vaginal 12/06/2021 10:[address] [facility] INTERPRETATION/ RESULT NEGATIVE FOR INTRAEPITHELIAL LESION OR MALIGNANCY (NIL) (none) 12/06/2021 10:34 AM CDT [facility] [facility] ENTRAL LABORAT[facility] at 1034 CDT SPECIMEN ADEQUACY Satisfactory for evaluation No endocervical component seen 12/06/2021 10:34 AM CDT [facility] [employer] [facility] ENTRAL LABORATORY HPV REQUEST HPV not requested 2021 10:34 AM CDT [facility] [employer] [facility] ENTRAL LABORATORY Additional Information 12/06/2021 10:34 AM CDT [facility] [employer] [facility] EN[facility]AL [facility]ORATORY Comment: Interpreted at [facility] [employer] [facility], Central Laboratory - [address], [place] [address] Automated Review Successful 12/06/2021 10:[address] [facility] Comment:Specimen processed s uccessfully by automated knife operator device, ThinPrep Imaging System, [employer] Note The pap test is a [...] and malignant lesions. 12/06/2021 10:[address] [facility] Other (Cervical/Vagina l) 11/19/2021 11:34 AM CDT 11/22/2021 3:37 PM CDT us Alia Roberts NP PATHOLOGY/CYTOLOGY Final R esult [facility] LAB[facility]ATORY-CENTRAL LABORATORY [address] [place] [address], [place] from Last 3 Months or Most Recently Relevant to Health Maintenance Care Teams Shellfish Meat Separator Operator Relationship Specialty Start Date End Date Unknown, Doctor . PCP - General Emergency Medicine 04/08/11
[2025-03-12 19:17] VITALS: BP 118/82; PULSE 98; RESP 16; TEMP 36.8; O2SAT 98; BMI 31.1
--- NOTE | 2025-03-12 19:24 | ED.GENADULT ---
HPI - General Adult General Time Seen by Provider: 19:25 Date Seen: 03/12/25 Chief complaint: Skin/Abscess/Foreign Body Stated complaint: lump on groin Time Seen by Provider: 03/12/25 19:24 Source: patient and RN notes reviewed Mode of arrival: ambulatory Limitations: no limitations History of Present Illness HPI narrative: This 44-year-old female is coming into the ER with a lump in her left groin/labia area. It has been there about 2 weeks. She was supposed to go into the clinic on Monday but ended up having issues with children that necessitated cancelling the appointment. She has had no fevers. She states she is always cold but that is not new. She has no history of MRSA. She has noted some odor coming from the area. This is gotten bigger, more painful. She is in a stable monogamous relationship. She has not necessarily noted any drainage. There is no vaginal discharge. She tried ibuprofen a few hours ago but it is not helping. Related Data Previous Rx's ?Medication ?Instructions ?Recorded cetirizine 10 mg tablet 10 mg PO QDAY #90 tabs 12/21/21 acetaminophen 500 mg tablet 1,000 mg (2 x 500 mg) PO Q6H PRN 06/24/22 Pain 30 days #60 tabs ibuprofen 600 mg tablet 600 mg PO Q6H PRN Pain 30 days #60 06/24/22 tabs fluticasone propionate 50 1 spray intranasal QDAY #16 grams 03/13/23 mcg/actuation nasal spray,suspension (Flonase Allergy Relief) lidocaine 3 % topical cream 1 applic topical BID PRN pain 05/29/24 #28.35 grams fluconazole 150 mg tablet 150 mg PO Q3D 2 doses #2 tabs 06/08/24 topiramate 100 mg tablet 100 mg PO DAILY #90 tabs 08/01/24 topiramate 25 mg tablet 25 mg PO DAILY #90 tabs 08/01/24 duloxetine 60 mg capsule,delayed 60 mg PO ONCE #90 caps 09/17/24 release (Cymbalta) magnesium oxide 400 mg (241.3 mg 400 mg PO DAILY #90 tabs 11/25/24 magnesium) tablet duloxetine 30 mg capsule,delayed 30 mg PO ONCE #90 caps 12/06/24 release pregabalin 50 mg capsule 50 mg PO BID #60 caps 12/25/24 ondansetron 4 mg disintegrating 4 mg PO Q6-8H PRN for 01/01/25 tablet nausea/vomiting 30 days #45 tabs bupropion HCl 150 mg tablet,12 hr 150 mg PO BID #180 tabs 02/21/25 sustained-release (Wellbutrin SR) Allergies Allergy/AdvReac Type Severity Reaction Status Date / Time ciprofloxacin Allergy Intermediate GI distress Verified 02/21/25 11:29 Quinolones Allergy Intermediate Sick Verified 02/21/25 11:29 gabapentin (From Neurontin) Allergy Mild Verified 02/21/25 11:29 amoxicillin (From Augmentin) Allergy gi upset Verified 02/21/25 11:29 clavulanic acid (From Allergy gi upset Verified 02/21/25 11:29 Augmentin) Review of Systems Narrative: As per HPI. [facility] Medical History Anxiety and depression ?F41.9 - Anxiety disorder, unspecified (ICD-10) ?F32.A - Depression, unspecified (ICD-10) Sinus pressure ?J34.89 - Other specified disorders of nose and nasal sinuses (ICD-10) Otitis media ?H66.90 - Otitis media, unspecified, unspecified ear (ICD-10) Serous otitis media ?H65.90 - Unspecified nonsuppurative otitis media, unspecified ear (ICD-10) Yeast infection ?B37.9 - Candidiasis, unspecified (ICD-10) Left shoulder pain ?M25.512 - Pain in left shoulder (ICD-10) Migraine headache ?G43.909 - Migraine, unspecified, not intractable, without status migrainosus (ICD-10) Sinusitis ?J32.9 - Chronic sinusitis, unspecified (ICD-10) Hemorrhoids ?K64.9 - Unspecified hemorrhoids (ICD-10) Menometrorrhagia ?N92.1 - Excessive and frequent menstruation with irregular cycle (ICD-10) Vaginal odor ?N89.8 - Other specified noninflammatory disorders of vagina (ICD-10) History of cervical dysplasia ?Z87.410 - Personal history of cervical dysplasia (ICD-10) Herpes zoster ?B02.9 - Zoster without complications (ICD-10) Hemorrhoids ?K64.9 - Unspecified hemorrhoids (ICD-10) Diverticulosis of colon ?K57.30 - Diverticulosis of large intestine without perforation or abscess without bleeding (ICD-10) Cough ?R05.9 - Cough, unspecified (ICD-10) Biliary colic ?K80.50 - Calculus of bile duct without cholangitis or cholecystitis without obstruction (ICD-10) Asthma ?J45.909 - Unspecified asthma, uncomplicated (ICD-10) Surgical History History of vaginal hysterectomy ?Z90.710 - Acquired absence of both cervix and uterus (ICD-10) Status post laparoscopic cholecystectomy ?Z90.49 - Acquired absence of other specified parts of digestive tract (ICD-10) History of sinus surgery ?Z98.890 - Other specified postprocedural states (ICD-10) History of loop electrical excision procedure (LEEP) ?Z98.890 - Other specified postprocedural states (ICD-10) History of colposcopy with cervical biopsy ?Z98.890 - Other specified postprocedural states (ICD-10) Encounter for sterilization (06/22/21) ?Z30.2 - Encounter for sterilization (ICD-10) Family History Mother Depression Diabetes High blood pressure Father High blood pressure Diverticulosis Aunt Breast cancer Maternal Grandfather Heart disease Paternal Grandfather Heart disease Social History Narrative: Tobacco use daily, pack per day. Alcohol, rare. No illicit drug use. Significant other and 3 children. Live in [place], [facility]. Smoking Status: Current every day smoker What tobacco products do you use: cigarettes Smoking packs per day: 1 Smoking cigarettes per day: 20.0 Years smoked: 15 Smoking pack-years: 15.00 Do you use any of these nicotine containing products: None Second hand tobacco smoke exposure: No How often do you have a drink containing alcohol: monthly or less Alcohol type: beer How many standard drinks containing alcohol do you have on a typical day: 1 or 2 How often do you have six or more drinks on one occasion: Never AUDIT-C Alcohol total score: 1 Non-prescribed substance use: denies use Caffeine: Yes (coffee- 1 pot/day. soda - 2 cans per day.) Are you using contraception or practicing any form of control: Yes (Tubal ligation) service: No Exam Const: Vital Signs, click to edit/add: Vital Signs - 24 hr 03/12/25 19:17 Temperature 98.2 F Pulse Rate [Pulse Oximeter] 98 Respiratory Rate 16 Blood Pressure [Ri ght Upper Arm] 118/82 Pulse Oximetry 98 Oxygen Delivery Me thod Room Air This 44-year-old female is alert, interactive, no apparent stress. CV regular rate and rhythm, no murmur. Breathing easily on room air, lungs clear anteriorly. In her left lower mons pubis/upper labial area she has a central punctate scab with some erythema around it and then surrounding that more pinkish discoloration. She has a central fluctuant area under the punctate scab, further out there is more tissue induration. This is tender. Feel no inguinal adenopathy. Pubic area is shaved. The punctate area seems to be portal of entry and do have clinical suspicion of cellulitis with abscess. Documenting provider has reviewed patient's vital signs: yes Course Course ED Course: Have obtained verbal consent from patient to do an incision and drainage. 3 mL of 1% lidocaine with epinephrine was drawn up and given locally. Upon removal of the syringe, we did start getting a stream of odorous milky white fluid returning. A scalpel was used to create about a 0.5 cm opening in the center of the area, got mucoid purulent material and then some white cheesy substance. There was a lot of induration around this cavity, curved forceps was used to explore and could not find any further pocket of purulence to open. Reviewed with her that abscess was relieved but there is significant surrounding tissue edema which would be considered cellulitis. I would recommend antibiotics. Fluid was cultured. We discussed treatment, she would like to proceed with Keflex as she has had some problems with other antibiotics. She is not aware of any history of MRSA. Vital Signs Vital signs: Initial Vital Signs Temperature 98.2 F 03/12/25 19:17 Temperature Source Temporal Artery Scan 03/12/25 19:17 Pulse Rate 98 03/12/25 19:17 Respiratory Rate 16 03/12/25 19:17 Blood Pressure 118/82 03/12/25 19:17 Blood Pressure Mean 94 03/12/25 19:17 Blood Pressure Position Sitting 03/12/25 19:17 Pulse Oximetry 98 03/12/25 19:17 Oxygen Delivery Method Room Air 03/12/25 19:17 Vital Signs Temperature 98.2 F 03/12/25 19:17 Pulse Rate 98 03/12/25 19:17 Respiratory Rate 16 03/12/25 19:17 Blood Pressure 118/82 03/12/25 19:17 Pulse Oximetry 98 03/12/25 19:17 Oxygen Delivery Method Room Air 03/12/25 19:17 Temperature 98.2 F 03/12/25 19:17 Pulse Rate 98 03/12/25 19:17 Respiratory Rate 16 03/12/25 19:17 Blood Pressure 118/82 03/12/25 19:17 Pulse Oximetry 98 03/12/25 19:17 Oxygen Delivery Method Room Air 03/12/25 19:17 Medications Administered Medications: Discontinued Medications Generic Name Dose Route Start Last Admin Trade Name Etta PRN Reason Stop Dose Admin Lidocaine/Epinephrine 3 ml 03/12/25 19:52 03/12/25 20:01 Lidocaine 1%-Epi 1:100,000 Mdv INFILTRATI 03/12/25 19:53 3 ml ONCE ONE Administration Discharge Plan Discharge Clinical Impression: Abscess of pubic region Patient Disposition: Home, Self-Care Condition: Stable Instructions: Abscess Incision and Drainage (DC) Additional Instructions: Start Keflex and take as prescribed. If the culture should grow anything requiring antibiotic change, we will contact you. Do daily tub baths, gentle cleaning of the wound with soft washcloth and soap. Can use bandages or place a pad reverse in your underwear to catch any drainage. Use Tylenol 1000 mg 3 times a day baseline for pain, can supplement with ibuprofen per bottle directions for additional pain management. Please schedule clinic followup within the next week for recheck. If you feel the infection is worsening, have further concerns with this wound in the interim, please return to the ER for further evaluation. Keflex will be 500 mg 3 times a day, 20 tablets from [employer] provided. Activity Level: Activity as Tolerated Prescriptions: No Action magnesium oxide 400 mg (241.3 mg magnesium) tablet 400 mg PO DAILY Qty: 90 3RF fluticasone propionate [Flonase Allergy Relief] 50 mcg/actuation spray,suspension 1 spray intranasal QDAY Qty: 16 6RF Rx Instructions: administer into each nostril lidocaine 3 % cream 1 applic topical BID PRN (Reason: pain) Qty: 28.35 0RF bupropion HCl [Wellbutrin SR] 150 mg tablet sustained-release 12 hr 150 mg PO BID Qty: 180 3RF acetaminophen 500 mg Tablet 1,000 mg PO Q6H PRN (Reason: Pain) 30 Days Qty: 60 0RF ibuprofen 600 mg Tablet 600 mg PO Q6H PRN (Reason: Pain) 30 Days Qty: 60 0RF cetirizine 10 mg tablet 10 mg PO QDAY Qty: 90 3RF fluconazole 150 mg tablet 150 mg PO Q3D Qty: 2 1RF topiramate 100 mg tablet 100 mg PO DAILY Qty: 90 3RF Rx Instructions: 100 mg in addition to 25 mg, for total of 125 daily. topiramate 25 mg tablet 25 mg PO DAILY Qty: 90 3RF Rx Instructions: 25 mg in addition to 100 mg, for a total of 125 mg daily. duloxetine [Cymbalta] 60 mg capsule,delayed release(DR/EC) 60 mg PO ONCE Qty: 90 3RF duloxetine 30 mg capsule,delayed release(DR/EC) 30 mg PO ONCE Qty: 90 3RF Rx Instructions: Cymbalta 60 mg and Cymbalta 30 mg for a total of 90 mg daily. pregabalin 50 mg capsule 50 mg PO BID Qty: 60 5RF ondansetron 4 mg tablet,disintegrating 4 mg PO Q6-8H PRN (Reason: for nausea/vomiting) 30 Days Qty: 45 6RF Follow Up/Referrals: Alia Roberts, [employer] [Primary Care Provider, Family Practice] Stand Alone Forms: [facility] Info Instructions
== END 2025-03-12 20:20 | disposition home or self-care (01) ==
LOC: ED 20:19
PROVIDERS: Emergency Provider Family Medicine; PCP Nurse Practitioner Family
DX: L02.214 Cutaneous abscess of groin (principal)
CPT/HCPCS: 10060; 87070; 99283

== ENCOUNTER 2025-03-27 08:48 | Outpatient (CLI) | payer OTHER, SELFPAY | END 2025-03-27 08:49 | disposition home or self-care (01) | LOC: NFLDREF 04-02 02:58 | PROVIDERS: PCP Nurse Practitioner Family; Referring Provider Nurse Practitioner Family; Visit Provider Nurse Practitioner Family | DX: E53.8 Deficiency of other specified B group vitamins (principal) | CPT/HCPCS: 82607 ==